=== PATIENT | female | born 1930 | race Caucasian/White ===

== ENCOUNTER 2017-09-27 16:29 | Emergency (ER) | payer MEDICARE, OTHER ==
[~2017-09-27] VITALS: Ht 165.1 cm; Wt 64.4 kg
[~2017-09-27 16:29] MED LIST: ABILIFY5 MG; ADVIL200 MG PO; ALBUTEROL SULF8.5 GM INH; ALDACTONE25 MG PO; AMOXICILLIN875 MG PO; ASPIR 8181 MG PO; ASPIRIN EC325 MG PO; ASPIRIN EC81 MG PO; ATROVENT HFA12.9 GM INH; BACTRIM DS TAB1 EACH PO; BUMETANIDE1 MG PO; CALCIUM/VITD; CARVEDILOL3.125 MG PO; CARVEDILOL6.25 MG PO; CETIRIZINE HCL10 MG PO; COZAAR100 MG PO; COZAAR25 MG PO; CRESTOR10 MG PO; CRESTOR20 MG PO; DEMADEX20 MG PO; DIGOXIN125 MCG PO; FLUTICASONE PRO16 GM NAS; FLUTICASONE PRO16 GM NS; GLUCOPHAGE500 MG PO; GUAIFENESIN600 MG PO; ICAPS PLUS1 EACH PO; LEVAQUIN500 MG PO; LEVOTHYROXINE75 MCG PO; LISINOPRIL40 MG PO; METFORMIN HCL500 MG PO; MUCINEX1200 MG PO; NITROGLYCERIN0.4 MG SL; OMEPRAZOLE20 MG PO; POTASSIUM CHLO20 ME1 PO; PRILOSEC20 MG PO; PULMICORT FLE180 MCG INH; PULMICORT FLEX90 MCG IH; QVAR7.3 G1 INH; SPIRONOLACTONE25 MG PO; VITAMIN B12-FO1 EACH PO; VITAMIN D1000 UNIT; VITAMIN D1000 UNIT PO; ZOFRAN4 MG PO; ZYRTEC10 M3 PO
--- NOTE | 2017-09-28 19:35 | EKG ---
[facility] [address] [place] [address] Signed Atrial-sensed ventricular-paced rhythm Biventricular pacemaker detected Abnormal ECG No previous ECGs available Confirmed by VIDA CALDWELL MD ([id number]) on 09/28/2017 7:35:23 PM Electronically Signed By: VIDA CALDWELL MD 09/28/17 1935 PATIENT NAME: LENNIE CROCKETT Electrocardiogram DATE OF : 32 PHYSICIAN: VIDA CALDWELL MD REPORT #: [id number] REPORT IS CONFIDENTIAL AND NOT TO BE RELEASED WITHOUT AUTHORIZATION
== END 2017-09-28 01:20 | disposition short-term general hospital (02) ==
LOC: ED 16:29
PROC: 0T9B70Z Drainage of Bladder with Drainage Device, Via Natural or Artificial Opening (ICD-10-PCS; principal; 2017-09-27)
DX: S72.011A Unspecified intracapsular fracture of right femur, initial encounter for closed fracture (principal); S22.41XA Multiple fractures of ribs, right side, initial encounter for closed fracture; I11.0 Hypertensive heart disease with heart failure; I50.9 Heart failure, unspecified; E03.9 Hypothyroidism, unspecified; Z87.891 Personal history of nicotine dependence; Z88.5 Allergy status to narcotic agent; Z88.8 Allergy status to other drugs, medicaments and biological substances; Z79.899 Other long term (current) drug therapy; W18.30XA Fall on same level, unspecified, initial encounter; W22.09XA Striking against other stationary object, initial encounter; Y92.89 Other specified places as the place of occurrence of the external cause
CPT/HCPCS: 51702; 71260; 73502; 74177; 80053; 81001; 83690; 84484; 85025; 85610; 85730; 86850; 86900; 86901; 93005; 93010; 96374; 96375; 96376; 99285; J1170; J2405; Q9967

== ENCOUNTER 2017-10-18 11:46 | Inpatient (IN) | payer MEDICARE, OTHER ==
[~2017-10-18] VITALS: Ht 165.1 cm; Wt 65.6 kg
[~2017-10-18 11:46] MED LIST changes: -ASPIRIN EC325 MG PO; -CARVEDILOL3.125 MG PO; +COREG6.25 MG PO; +KLOR-CON M1010 MEQ PO; -POTASSIUM CHLO20 ME1 PO; -QVAR7.3 G1 INH
[2017-10-18] MEDS ORDERED: CO Q-10100 MG PO (12:24)
[2017-10-18] MEDS ORDERED: FAMOTIDINE20 MG PO (12:24)
[2017-10-18] MEDS ORDERED: COUGH SYRU100 MG/5 M PO (12:25)
[2017-10-18] MEDS ORDERED: LORATADINE10 MG PO (12:26)
[2017-10-18] MEDS ORDERED: MELATONIN1 MG PO (12:29)
[2017-10-18] MEDS ORDERED: CRESTOR20 MG PO (12:30)
--- NOTE | 2017-10-18 19:06 | NUR ---
PT ATE FAIR FOR DINNER PARIIGHT, FAMILY BROUGHT IN COPY OF MAR FROM SNF. SCANED TO PHARMACY AND PLACED IN CHART.
--- NOTE | 2017-10-18 19:09 | NUR ---
PT TIRED AND WANTS TO SLEEP, SPO2 92% ON 2L'S NC AT THIS TIME, SPUTUM SAMPLE SENT TO LAB. HEART RATE IN THE 90% AND V-PACED AT THIS TIME.
--- NOTE | 2017-10-18 19:54 | NUR ---
AWAKE, ALERT, DOES HAVE SOME L LOWER LAT CHEST DISCOMFORT WITH COUGHING. EXPLAINED COULD BE DUE TO PNUMONIA. INC OF URINE, ATTENDS CHANGED.
--- NOTE | 2017-10-18 21:31 | NUR ---
HS MEDS GIVEN. PT STATED SHE DID NOT SLEEP WELL LAST NIGHT DUE TO COUGHING AND REQ SOMETHING TO HELP, DR CALDWELL CONSULTED AND HE PREFERS NOT TO GIVE ANYTHING AT THIS TIME COUGH HAS BEEN PRODCUTIVE. PT INFORMTED. PT ALSO C/O CONSITPATION, SENNA ORDERED.
--- NOTE | 2017-10-18 22:13 | NUR ---
SLEEPING OFF AND ON. WHEN ASLEEP PT MOUTH BREATHS, 02 INC TO 3 L SATS DEC TO 88%.
--- NOTE | 2017-10-18 22:34 | NUR ---
ATTENDS CHANGED LEAKS URINE EVERYTIME SHE COUGHS. COUGHING UP SMALL AMTS YELLOW SPUTUM.
--- NOTE | 2017-10-18 23:32 | NUR ---
PT SLEEPING, SATS NOTED TO BE DECREASING TO LOW 82%. PT THEN AWAKENED COUGHING. SATS THEN INCREASED TO 93% BREATH TONES ARE COARSE RHONCHI THROUGHOUT. DENIES NEEDING ATTENDS CHANGED.
--- NOTE | 2017-10-19 00:31 | NUR ---
AT 0010 PT GIVEN 500MG TYLENOL PO FOR PAIN FROM PULLED MUSCLE L LOWER CHEST.
--- NOTE | 2017-10-19 01:00 | NUR ---
SLEEPS FOR SHORT PERIODS BETWEEN EPISODES OF COUGHING.
--- NOTE | 2017-10-19 03:00 | NUR ---
ATTENDS CHANGED INC URINE.
--- NOTE | 2017-10-19 04:52 | NUR ---
AWAKE COUGHING. ATTENDS CHANGED. UP TO BSC TO VOID SMALL AMT URINE. PT STATES THAT EVERY SINCE SHE HAD CATHETER HAS HAD TROUBLE VOIDING. SPEC SENT. PT NARENDRA BEING UP WELL, NO SOB.CONT TO COUGH FREQ.
--- NOTE | 2017-10-19 06:05 | NUR ---
CONT TO SLEEP OFF AND ON. DOES USE IS ON OWN. STATES DID SLEEP BETTER THAN NIGHT BEFORE.
--- NOTE | 2017-10-19 08:00 | NUR ---
pt up to the chair, brushed teeth and washed face, up to the bedside commode, WAS INCONTENT OF URINE, PT ATE BKF AND TOLERATED IT WELL. FAMILY AT THE BEDSIDE.
--- NOTE | 2017-10-19 08:53 | NUR ---
PT SITTING IN CHAIR, O2 NC IN USE. SHE IS ALERT, ORIENTED AND FAMILY BY HER SIDE. NOT MUCH SLEEP LAST NIGHT, NOT ENJOYING COUGHING. PLEASANT DEMEANOR, ALWAYS INTERESTED IN YOU. FAMILY TO CONTACT CINTHIA FOR VISIT, WILL CONTINUE TO FOLLOW NEEDED
--- NOTE | 2017-10-19 11:18 | NUR ---
PT REMAINS UP IN THE CHAIR AT THIS TIME, DENIES AND C/O'S AT THIS TIME. TAKING PO MEDS WELL.
--- NOTE | 2017-10-19 12:05 | NUR ---
SPOKE WITH PATIENT IN ROOM. PATIENT STATES SHE FELL AND BROKE HER HIP AND RIBS A FEW WEEKS AGO, WENT TO [place] DUE TO CARDIAC HISTORY TO HAVE SURGERY. SPENT TWO WEEKS IN REHAB CENTER. JUST CAME HOME LAST THURSDAY. STATES HER CAUGHT "A BUG" WHILE HE WAS IN [place] WITH HER, AND DAUGHTER TOOK HIM TO SEE SEVERAL PROVIDERS. THEY BOTH ENDED UP NEEDING TO BE ADMITTED. SHE STATES SHE AND HE PLAN TO RETURN HOME. WE DISCUSSED POSSIBLE REHAB STAY, IF NEEDED. SHE STATES SHE "HOPES THAT WON'T BE NECESSARY". THEY HAVE 6 ADULT CHILDREN LIVING IN THE AREA AND MULTIPLE GROWN GRANDCHIDLREN. STATES THEY HAVE ONE GRANDDAUGHTER WHO IS DOING HOUSEWORK FOR THEM THIS SUMMER. SHE STATES THE KIDS ARE PLANNING ON TAKING SHIFTS TO HELP THEM 24/ WHEN THEY GET HOME. SHE STATES SHE HAS ORDERS TO START PHYSICAL THERAPY OUTPATIENT SERVICES SOON. SHE HAS A WALKER AT HOME. WE DISCUSSED CHW PROGRAM AND ASKED IF WE CAN FOLLOW THEM AT DISCHARGE TO MAKE SURE THEY HAVE ALL THEY NEED TO TAKE CARE OF THEMSELVES WHEN THEY ARE HOME. SHE IS AGREEABLE TO THIS.
--- NOTE | 2017-10-19 12:57 | NUR ---
PT ATE LUNCH FAIR, REMAINS UP IN THE CHAIR, WANTING TO GO BACK TO BED. ASSISTED PT WITH THIS.
--- NOTE | 2017-10-19 14:57 | NUR ---
REPORTED CALLED TO TOBY AT THIS TIME, ALL QUESTIONS ANSWERED.
--- NOTE | 2017-10-19 15:05 | NUR ---
PT ARRIVED TO FLOOR. PT ALERT AND ORIENTED, DENIES PAIN OR NAUSEA. REPORTS FREQUENT COUGH WITH MODERATE SPUTUM PRODUCTION. IV ABX INFUSING IN RIGHT FOREARM WNL. PT SATTING 91 ON 1L NC. FAMILY AT BEDSIDE. CALL LIGHT WITHIN REACH.
--- NOTE | 2017-10-19 15:27 | EKG ---
[facility] [address] [place] [address] Signed Ventricular-paced rhythm Biventricular pacemaker detected Abnormal ECG When compared with ECG of 27-SEP-2017 19:27, Vent. rate has increased BY 14 BPM Confirmed by VIDA CALDWELL MD ([id number]) on 10/19/2017 3:27:21 PM Electronically Signed By: VIDA CALDWELL MD 10/19/17 1527 PATIENT NAME: LENNIE CROCKETT Electrocardiogram DATE OF : 32 PHYSICIAN: VIDA CALDWELL MD REPORT #: [id number] REPORT IS CONFIDENTIAL AND NOT TO BE RELEASED WITHOUT AUTHORIZATION
--- NOTE | 2017-10-19 18:15 | NUR ---
PT SITTING UP IN BED EATING DINNER, AT BEDSIDE. DENIES NEEDS OR CONCERNS AT THIS TIME. CALL LIGHT WITHIN REACH.
--- NOTE | 2017-10-19 19:20 | NUR ---
pt resting in bed, respirations even and unlabored, o2 per nc at 1liter. pt denies sob. call light in reach. no concerns or requests voiced. report received from TI Crocker.
--- NOTE | 2017-10-19 20:16 | NUR ---
ASSISTED PATIENT TO THE BATHROOM AND BACK TO BED. PATIENT DID PM CARE, BRUSH TEETH AND WASH FACEAND HANDS. CALL LIGHT IN REACH. RT WAS WITH PATIENT IN ROOM.
--- NOTE | 2017-10-19 20:45 | NUR ---
pt has increased frequency of bouts of coughing with little releif in between episodes. LSC in upper sm[place], diminished in bases. pt satting 91% on 1lpnc and denies sob. Dr Munoz notified of pt's s/sx's and new orders to be written by .
--- NOTE | 2017-10-19 22:58 | NUR ---
pt resting supine in bed, eyes closed, respirations even and unlabored. Pt appears to be sleeping comfortably. Pt remains in view of nursing station with bed alarm on.
--- NOTE | 2017-10-20 01:00 | NUR ---
Pt assisted up to restroom with standby assist and use of front wheel walker. pt has steady gait, denies sob or pain. Pt states she is still coughing but less frequently. Pt agrees to use call cord when finished.
--- NOTE | 2017-10-20 05:30 | NUR ---
pt resting in bed, alert to voice. speech clear and pt denies sob. Respirations even and unlabored. Assessment completed. call light in reach. fresh water and call light in reach. pt encouraged to use IS frequently and was educated on it's use. No needs voiced a this time.
[2017-10-20] MEDS ORDERED: SPIRIVA18 MCG INH (07:11)
[2017-10-20] MEDS ORDERED: FAMOTIDINE20 MG PO (07:12)
[2017-10-20] MEDS ORDERED: TUMS200 MG PO (07:12)
[2017-10-20] MEDS ORDERED: VENTOLIN HFA18 GM INH (07:13)
[2017-10-20] MEDS ORDERED: IBU400 MG PO (07:15)
[2017-10-20] MEDS ORDERED: LIDODERM1 EACH TOP (07:18)
[2017-10-20] MEDS ORDERED: LOVENOX40 MG/0.4 SUB-Q (07:19)
[2017-10-20] MEDS ORDERED: MIRALAX17 GM PO (07:20)
[2017-10-20] MEDS ORDERED: HUMALOG100 UNITS/ SUB-Q (07:22)
--- NOTE | 2017-10-20 07:48 | NUR ---
REPORT RECEIVED FROM TI CANO. PT AWAKE AND STATES THAT SHE DID NOT SLEEP WELL AND WOULD LIKE TO REST A BIT MORE. SL
[2017-10-20] MEDS ORDERED: ACETAMINOPHEN500 MG PO (09:39)
[2017-10-20] MEDS ORDERED: BENADRYL ITCH28.3 G1 TOP (09:43)
[2017-10-20] MEDS ORDERED: BISACODYL10 MG PR (09:44)
[2017-10-20] MEDS ORDERED: DOK100 MG PO (09:50)
[2017-10-20] MEDS ORDERED: MILK OF MA400 MG/5 M PO (10:01)
[2017-10-20] MEDS ORDERED: SENNA8.6 MG PO ×2 (10:09→10:10)
--- NOTE | 2017-10-20 10:15 | NUR ---
MED REC COMPLETE
--- NOTE | 2017-10-20 10:15 | NUR ---
PT UP TO THE RESTROOM WITH 1 PA. DENIES PAIN. STEADY ON FEET. BRUSHED TEETH. NOW SITTING UP IN CHAIR.
--- NOTE | 2017-10-20 12:26 | NUR ---
STOPPED BY TO CHECK ON PT-HER FAMILY ARRIVED JUST AFTER. PT HAD SHOWERED, P.T. HAD COMPLETED MORNING VISIT. I WILL CHECK ON PT AGAIN.
--- NOTE | 2017-10-20 14:43 | NUR ---
PT STATES HER BACK IS A LITTLE SORE. ADMINISTERED AB AND TYLENOL. OCC. THER IN ROOM TO WORK WITH PT. PT LUNGS DIM BUT CLEAR. COUGH SYRUP SEEMS TO HAE HELPED PT IS NO LONGER COUGHING CONSTANTLY.
--- NOTE | 2017-10-20 16:25 | NUR ---
DR CALDWELL IN TO SEE PT. AND FAMILY IN ROOM. PT STATES HER COUGH IS KEEPING HER UP AT NIGHT. RIB PAIN IS BETTER. CONTINUES TO SAT WELL OFF OF O2. ADMINISTERED ANOTHER CEPACOL FOR COUGH
--- NOTE | 2017-10-20 18:32 | NUR ---
VITALS AND I/OS CHARTED. IN ROOM. THIS EMERGENCY MEDICAL TECH HAD PATIENT PUT NASAL CANULA ON TO GET HER SATS TO ATLEAST 90. RN OSMAR NOTIFIED. CALL LIGHT IN REACH
--- NOTE | 2017-10-20 18:34 | NUR ---
PT OFF OF O2 MOST OF DAY. DESATS ONLY WHILE SLEEPING. IN ROOM ON AND OFF. FAMILY BROUGHT IN "DEANNE MILLSKE". TYLENOL FOR ABDOMINAL SORENESS. LOZENGES AND ROBOTUSSIN FOR COUGH. PT TIRED FROM LACK OF SLEEP DUE TO COUGH.
--- NOTE | 2017-10-20 19:30 | NUR ---
REPORT RECEIVED FROM TI PRASAD. PT RESTING IN BED, RESPIRATIONS EVEN AND UNLOBORED. PT APPEARS TO BE COMFORTABLE AND DENIES NEEDS OR REQUESTS. PT REMAINS ON 1LPNC AND DENIES PAIN OR SOB. CALL LIGHT IN REACH.
--- NOTE | 2017-10-20 23:24 | NUR ---
PT REPORTS PERSISTING COUGH WITH SOME PAIN TO RIBS AND STOMACHE MUSCLES WHEN COUGHING "I'VE COUGHED SO MUCH MY MUSCLES ARE SORE AND NOW THEY HURT WHEN I COUGH". PT GIVEN PILLOW AND ENCOURAGED TO SPLINT WHILE COUGHING FOR COMFORT. PT STATES HER DISCOMFORT IS TOLERABLE BUT AGREES TO USE CALL LIGHT IF HER SYMPTOMS WORSEN. CALL LIGHT IN REACH. NO FURTHER CONCERNS OR REQUESTS VOICED.
--- NOTE | 2017-10-21 01:02 | NUR ---
HELPED PT TO THE RESTROOM AND BACK TO BED. SHE DENIES NEEDS AT THIS TIME. CALL LIGHT IS WITHIN REACH.
--- NOTE | 2017-10-21 01:28 | NUR ---
pt resting gin bed, denies sob and states "i havent been coughing as much.". pt remains on 1lpnc and zosyn continues to infuse. call light in reach and no needs voiced.
--- NOTE | 2017-10-21 05:00 | NUR ---
PT RESTING IN BED EYES CLOSED, RESPIRATIONS EVEN AND UNLABORED, PT ALERT TO VOICE AND VITAL SIGNS TAKENA ND ARE STABLE. PT DENIES SOB AND STATES SHE HAS NOT BEEN COUGHING MUCH. CALL LIGTH IN REACH AND NO NEEDS VOICED.
--- NOTE | 2017-10-21 07:24 | NUR ---
BEDSIDE REPORT FROM RACHAEL LUKE, SHE IS RESTING IN BED USEING I.S. AT THIS TIME ON ROOM AIR, O2 SATURATION CHECKED PT 90%, WHEN PT TALKED SHE DROPPED TO 88% ON ROOM 1L OXYGEN PLACED N.C. AT THIS TIME. WILL CONT TO MONITOR OXYGEN NEEDS AND TITRATE POSSIBLE
--- NOTE | 2017-10-21 07:56 | NUR ---
PATIENT SITTING UP IN BED, EATING BREAKFAST. CALL LIGHT IN REACH. NO OTHER NEEDS AT THIS TIME.
--- NOTE | 2017-10-21 08:20 | NUR ---
THIS BISCUIT MACHINE OPERATOR ASSISTED PATIENT UP TO BATHROOM, BACK TO BEDSIDE RECLINER. PATIENT SITTING UP EATING BREAKFAST, CALL LIGHT IN REACH. PATIENT REFUSED A SHOWER AND AM CARE. LINENS CHANGED. NO OTHER NEEDS AT THIS TIME. RESPIRATORY THERAPY IN ROOM.
--- NOTE | 2017-10-21 08:49 | NUR ---
PT UPTO BATHROOM ONE PERSON ASSIST AT THIS TIME. TOLERATED ACTIVITY WELL.
--- NOTE | 2017-10-21 10:40 | NUR ---
PATIENT RESTING IN BEDSIDE RECLINER. CALL LIGHT IN REACH, FAMILY IN ROOM. FAMILY MEMBER CONCERNED ABOUT PATIENT COUGHING UP BROWN MUCUS. THIS WHOLESALER EXAMINED SPUTUM, SPUTUM IS GREEN WITH DELMER/BROWN STREAKS IN IT. RN NOTIFIED. NO OTHER NEEDS AT THIS TIME.
--- NOTE | 2017-10-21 14:16 | NUR ---
IN PT ROOM DISCUSSING PLAN OF CARE.
--- NOTE | 2017-10-21 15:37 | NUR ---
PT REPORTS IMPROVEMENT OF COUGH CONTROL WITH PRN COUGH SYRUP, TESSLON PEARLS. AND BETTER PAIN CONTROL WITH TYLENOL. PT SITTING UP VISITING WITH SPOUSE AT BEDSIDE AND GUEST/FAMILY IN ROOM
--- NOTE | 2017-10-21 16:21 | NUR ---
PT UP AMBULATING WITH PHYSICAL THERAPY AT THIS TIME.
--- NOTE | 2017-10-21 16:49 | NUR ---
PT HAS BEEN UP TO RECLINER FOR MEALS. TESSLON PEARLS AND COUGH SYRUP AND TYLENOL HAS BEEN ADMINISTERED OFTEN CAN BE PER ORDER FOR PT COMFORT. PT REPORTS IMPROVED COMFORT OVER SHIFT. SHE HAS BEEN UP AMBULATING IN HALLS WITH PHYSICAL THERAPY. USES I.S. REGULARLY WITHOUT PROMPTING. PLAN TO DISCHARGE TOMORROW
--- NOTE | 2017-10-21 17:02 | NUR ---
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 She currently has company so discussion was short. She denies problems in self-management. Encouraged to call if questions arise upon DC. Social support system:family Weight monitoring: Scale present in home. Weighs self most days. Identifies how to weigh daily/ identifies when to notify PCP Symptom management: Specific written recommendations to follow-up for ongoing management, and to address changes in weight or symptoms Diet: Usual meals include fresh food. Avoids process foods due to salt content. Reads labels. Medication routine: Denies missed medications and utilizes pill boxes. Has been counseled on minimizing/avoiding use of NSAIDs Advanced directive: Not addressed at this initial visit. Recommended: Documented ambulation oxygen saturations prior to discharge Absence of orthostatic hypotension. Patient may be a candidate for outpatient cardiac rehab. Teaching materials given today: [facility] Living with Heart Failure book, Low Sodium Shopping list, Daily weight and symptom monitoring log, Zones magnet
[2017-10-21] MEDS ORDERED: COREG6.25 MG PO (18:28)
[2017-10-21] MEDS ORDERED: COZAAR25 MG PO (18:28)
[2017-10-21] MEDS ORDERED: BENZONATATE200 MG PO (18:32)
[2017-10-21] MEDS ORDERED: GUAIFEN-CODEINE10 ML PO (18:32)
[2017-10-21] MEDS ORDERED: DOXYCYCLINE HY100 MG PO (18:32)
--- NOTE | 2017-10-21 18:39 | NUR ---
PATIENT COUGHING DURING RESPIRATION COUNT.
--- NOTE | 2017-10-21 19:20 | NUR ---
REPORT RECEIVED FROM TI BEGUM. PT ASSESSMENT COMPLETED. PT ALERT AND ORIENTEDX4, DENIES SOB ON 1LPNC. I.S. AT BEDSIDE AND PT AGREES TO CONTINUE TO USE WHILE AWAKE 10X PER HOUR. CALL LIGHT AND FRESH WATER AT BEDSIDE. IV SALINE LOCKED. NO NEEDS VOICED.
--- NOTE | 2017-10-21 21:37 | NUR ---
PT RESTING IN BED STATES SHE IS COMFORTABLE, DENIES SOB STATES "MY STOMACHE MUSCLES ARE SORE WHEN I COUGH". PRN COUGH SYRUP WITH CODEIN, COUGH DROP, TYLENOL ALONG WITH PT'S ROUTINE MEDICATIONS DUE AT THIS TIME. CALL LIGHT IN REACH AND PT DENIES HAVING ANY FURTHER REQUESTS. CALL LIGHT AND FRESH WATER WITHIN REACH.
--- NOTE | 2017-10-22 01:18 | NUR ---
pt resting in bed, respirations even and unlabored, call light in reach. pt appears to be sleeping comfortably. alert to voice, assessment completed and no needs voiced.
--- NOTE | 2017-10-22 01:43 | NUR ---
PT REPORTS EXPERIENCING INDIGESTION "I GET THIS HEART BURN FROM TIME TO TIME, CAN I GET A TUMS OR SOMETHING TO HELP WITH THE INDEGESTION?" mALOX NIO ORDER PLACED AND TO BE ADMINISTERED. PT DENIES NAUSEA,VOMITING OR ANY FURTHER SYMPTOMS.
--- NOTE | 2017-10-22 02:46 | NUR ---
Pt resting in bed, respirations even and unlabored, eyes closed and pt appears to be sleeping comfortable. Call light in reach.
--- NOTE | 2017-10-22 06:55 | NUR ---
pt states she slept well through the night "i slept and i had the wildest dreams". Pt states malox did resolve indegestion that she was experiencing. has maintained o2 sats in mid 90's on 1lpnc and has denied sob.
--- NOTE | 2017-10-22 08:02 | NUR ---
PATIENT IS SITTING UP IN CHAIR FOR BREAKFAST. SOMETIME TODAY WILL TAKE A SHOWER.
--- NOTE | 2017-10-22 08:06 | NUR ---
PATIENT SITTING UP IN CHAIR. ASSESSMENT COMPLETE. PATIENT VITALS TAKEN. TITRATED TO RA. PATIENT TOLERATING RA SATING AT 93 PERCENT ON RA. SET UP FOR BREAKFAST.
--- NOTE | 2017-10-22 09:25 | NUR ---
TELEVISION PRESENTER ASSISTING PATINET WITH SHOWER. PLAN TO AMBULATE WITH PT/ RT AFTER SHOWER.
--- NOTE | 2017-10-22 10:00 | NUR ---
PATIENT WORKED WITH PT. AMBULATING IN AGUILAR. CALLED RT TO DO HOME OXYGEN EVAL. PATIENT SATING 88 PERCENT ON RA WITH ACTIVITY. RT RECOMMENDING 1 L CONT AT HOME. PT STATING SHE IS SAFE TO GO HOME WITH WALKER. PATIENT HAS WALKER AT HOME TO USE. PATIENT HAS AND DAUGHTERS IN ROOM AT THIS TIME.
--- NOTE | 2017-10-22 10:33 | NUR ---
PT SITTING UP IN BED, DRESSED AND VISITING WITH FAMILY. PT STATED SHE HOPES TO BE WELL ENOUGH TO BE DC'D TODAY. PT IS ALERT AND ORIENTED AND HAS A PLEASANT DEMEANOR. EXTENDED A BLESSING, WILL CONTINUE TO FOLLOW NEEDED
--- NOTE | 2017-10-22 11:38 | NUR ---
patient set up for lunch. patient requesting that her have lunch with her.
--- NOTE | 2017-10-22 12:10 | NUR ---
ROUNDED WITH DR. CALDWELL IN ROOM. UPDATED ON PLAN OF CARE AND PLAN FOR DISCHARGE WITH OXYGEN AND PT/ OT AT HOME.
--- NOTE | 2017-10-22 13:22 | NUR ---
PHARMACY IN ROOM TO GIVE DISCHARGE MEDICATION INSTRUCTIONS. CALLED KAYLENE TO VERIFY MEDICATION AND THAT IT IS READY FOR TRAIN ATTENDANT.
== END 2017-10-22 14:00 | disposition home health service (06) | DRG 178 ==
LOC: ED 11:46 → CCU 15:59 → MS 10-19 15:30
PROVIDERS: ADMIT Internal Medicine
DX: J15.211 Pneumonia due to Methicillin susceptible Staphylococcus aureus (principal); I50.22 Chronic systolic (congestive) heart failure; I25.10 Atherosclerotic heart disease of native coronary artery without angina pectoris; I10 Essential (primary) hypertension; J45.40 Moderate persistent asthma, uncomplicated; E03.9 Hypothyroidism, unspecified; E78.5 Hyperlipidemia, unspecified; S22.31XD Fracture of one rib, right side, subsequent encounter for fracture with routine healing; S72.001D Fracture of unspecified part of neck of right femur, subsequent encounter for closed fracture with routine healing; Z91.81 History of falling; Z79.82 Long term (current) use of aspirin; Z79.51 Long term (current) use of inhaled steroids; Z95.1 Presence of aortocoronary bypass graft; Z79.899 Other long term (current) drug therapy; Z88.5 Allergy status to narcotic agent; Z88.8 Allergy status to other drugs, medicaments and biological substances; Z91.040 Latex allergy status
CPT/HCPCS: 36415; 71045; 80053; 83605; 83735; 83880; 84484; 85025; 87070; 87077; 87186; 87205; 87449; 87899; 93005; 93010; 94640; 94760; 94761; 96365; 96375; 97110; 97116; 97162; 97166; 97530; 97535; 99285; J1650; J2543; J2930; J3475; J7120

== ENCOUNTER 2019-03-06 07:43 | Emergency (ER) | payer MEDICARE, OTHER ==
[~2019-03-06] VITALS: Ht 165.1 cm; Wt 61.7 kg
--- OUTSIDE RECORDS SUMMARY | ~2019-03-06 | XMS | Clinical Summary ---
Demographics + + + | Address | [address] | | | [place] [address] | + + + | Home Phone | | + + + | Preferred Language | Unknown | + + + | Marital Status | | + + + | Cheondoism Affiliation | [id number] | + + + | Race | Unknown | + + + | Ethnic Group | Unknown | + + + Author + + + | Author | [facility] | | | and [place] | + + + | Organization | [facility] | | | and [place] | + + + | Address | Unknown | + + + | Phone | Unavailable | + + + Support + + + + + | Name | Relationship | Address | Phone | + + + + + | Alfredo Ireland Jr. | ECON | [address] | | | | | [place] | | | | | [address] | | + + + + + | Rivka Palma | ECON | Unknown | | + + + + + | Geno Kendall | ECON | Unknown | | + + + + + Care Team Providers + +------+ + | Care Medicare Coordinator Name | Role | Phone | + +------+ + | Carmen Schultz MD | PCP | | + +------+ + Allergies + + + + + + | Active Allergy | Reactions | Severity | Noted | Comments | | | | | Date | | + + + + + + | Adhesive & Tape | Rash | Medium | 09/29/19 | | | | | | 18 | | + + + + + + | Codeine | Itching | Medium | 09/29/19 | | | | | | 18 | | + + + + + + | Furosemide | Other (See Comments) | Medium | 09/11/19 | All joints ache | | | | | 14 | and sore, tired All | | | | | | joints ache and | | | | | | sore, tired Joint | | | | | | pain | + + + + + + | Hydromorphone | Other (See Comments) | High | 03/07/20 | Documented in | | | | | 14 | chart that patient | | | | | | went into | | | | | | respiratory distress | | | | | | after receiving | | | | | | 0.5mg of dilaudid. | + + + + + + | Latex | Rash | Medium | 09/13/19 | | | | | | 14 | | + + + + + + Medications + + + +---------+------+------+-------+ | Medication | Sig | Dispensed | Refills | Star | End | Statu | | | | | | t | Date | s | | | | | | Date | | | + + + +---------+------+------+-------+ | levothyroxine | Take 88 mcg by mouth | | 0 | 1 | | Activ | | (SYNTHROID) 88 mcg | Daily. | | | 3/20 | | e | | tablet | | | | 12 | | | + + + +---------+------+------+-------+ | aspirin (ADULT | Take 81 mg by mouth | | 0 | 12/12 | | Activ | | ASPIRIN EC LOW | Daily. | | | 3/20 | | e | | STRENGTH) 81 MG EC | | | | 12 | | | | tablet | | | | | | | + + + +---------+------+------+-------+ | acetaminophen | Take 500 mg by mouth | | 0 | | | Activ | | (TYLENOL) 500 mg | every 6 hours as | | | | | e | | tablet | needed. | | | | | | + + + +---------+------+------+-------+ | albuterol | Inhale 2 puffs into | 1 | 2 | 05/0 | | Activ | | (VENTOLIN HFA) 90 | the lungs every 4 | Inhaler | | 6/20 | | e | | mcg/puff inhaler | hours as needed for | | | 14 | | | | | Wheezing. | | | | | | + + + +---------+------+------+-------+ | bumetanide (BUMEX) | Take 1 mg by mouth | | 0 | | | Activ | | 1 mg tablet | Daily. | | | | | e | + + + +---------+------+------+-------+ | carvedilol (COREG) | Take 3.125 mg by | | 0 | | | Activ | | 3.125 mg tablet | mouth 2 times daily | | | | | e | | | (with breakfast & | | | | | | | | dinner). | | | | | | + + + +---------+------+------+-------+ | calcium carbonate | Take 1,250 mg by | | 0 | 06/2 | | Activ | | (TUMS) 500 mg | mouth daily. | | | 2/20 | | e | | chewable tablet | | | | 18 | | | + + + +---------+------+------+-------+ | Coenzyme Q10 (CO Q | Take 300 mg by | | 0 | | | Activ | | 10) 100 MG CAPS | mouth. | | | | | e | + + + +---------+------+------+-------+ | docusate sodium | Take 200 mg by mouth | | 0 | 06/2 | | Activ | | (COLACE) 100 MG | as needed | | | 2/20 | | e | | capsule | | | | 18 | | | + + + +---------+------+------+-------+ | lidocaine 4 % | Place 1-3 patches | | 0 | 06/2 | | Activ | | patch | onto the skin. | | | 3/20 | | e | | | | | | 18 | | | + + + +---------+------+------+-------+ | montelukast | Take 10 mg by mouth | | 0 | 07/1 | | Activ | | (SINGULAIR) 10 mg | every evening. | | | 6/20 | | e | | tablet | | | | 18 | | | + + + +---------+------+------+-------+ | nitroglycerin | Place 0.4 mg under | | 0 | | | Activ | | (NITROSTAT) 0.4 mg | the tongue every 5 | | | | | e | | SL tablet | (five) minutes as | | | | | | | | needed for Chest | | | | | | | | pain. | | | | | | + + + +---------+------+------+-------+ | polyethylene | Take 17 g by mouth. | | 0 | 06/2 | | Activ | | glycol (MIRALAX) | | | | 2/20 | | e | | packet | | | | 18 | | | + + + +---------+------+------+-------+ | potassium chloride | Take 1 tablet by | | 0 | 04/0 | | Activ | | (KLOR-CON) 10 mEq | mouth 4 (four) times | | | 4/20 | | e | | CR tablet | daily. | | | 16 | | | + + + +---------+------+------+-------+ | cholecalciferol | Take 1,000 Units by | | 0 | | | Activ | | (VITAMIN D-3) 1,000 | mouth daily. | | | | | e | | units capsule | | | | | | | + + + +---------+------+------+-------+ | losartan (COZAAR) | Take 0.5 tablets by | | 0 | 04/0 | | Activ | | 25 mg tablet | mouth daily. | | | 4/20 | | e | | | | | | 19 | | | + + + +---------+------+------+-------+ | rosuvastatin | Take 20 mg by mouth | | 0 | 06/0 | | Activ | | (CRESTOR) 20 mg | nightly. | | | 6/20 | | e | | tablet | | | | 14 | | | + + + +---------+------+------+-------+ | | USE 1 VIAL VIA | 1080 mL | 11 | 08/3 | | Activ | | albuterol-ipratropiu | NEBULIZATION FOUR | | | 0/20 | | e | | m 2.5-0.5 mg/3 mL | TIMES DAILY; MAX OF | | | 19 | | | | SOLN | 6 DOSES PER 24 HOURS | | | | | | + + + +---------+------+------+-------+ | | take 1 tablet by | | 0 | 10/2 | | Activ | | amoxicillin-clavulan | mouth every 12 hours | | | 07/31 | | e | | ate (AUGMENTIN) | for 10 days | | | 19 | | | | 875-125 mg per | | | | | | | | tablet | | | | | | | + + + +---------+------+------+-------+ | metOLazone 2.5 mg | Take 2.5 mg by | | 0 | 09/2 | | Activ | | tablet | mouth. | | | 09/30 | | e | | | | | | 18 | | | + + + +---------+------+------+-------+ | fluticasone | instill 1 spray into | | 0 | 10/2 | | Activ | | (FLONASE) 50 | each nostril twice | | | 4/20 | | e | | mcg/nasal spray | a day | | | 19 | | | + + + +---------+------+------+-------+ | methylPREDNISolone | Follow package | 21 | 0 | 10/2 | | Activ | | (MEDROL DOSEPAK) 4 | directions. | tablet | | 20 | | e | | mg tablet | | | | 19 | | | + + + +---------+------+------+-------+ | budesonide | USE 2 ML(0.25MG) VIA | 180 mL | 11 | 11/0 | | Activ | | (PULMICORT) 0.25 | NEBULIZER twice | | | 20 | | e | | mg/2 mL nebulizer | DAILY | | | 19 | | | | solutionIndications: | | | | | | | | Moderate persistent | | | | | | | | asthma, unspecified | | | | | | | | whether complicated | | | | | | | + + + +---------+------+------+-------+ | budesonide | USE 2 ML(0.25MG) VIA | 180 mL | 11 | 08/3 | 10/2 | Disco | | (PULMICORT) 0.25 | NEBULIZER DAILY | | | 0/20 | 9/20 | ntinu | | mg/2 mL nebulizer | | | | 19 | 19 | ed | | solution | | | | | | (Reor | | | | | | | | rashaad) | + + + +---------+------+------+-------+ | budesonide | USE 2 ML(0.25MG) VIA | 180 mL | 11 | 10/2 | 11/0 | Disco | | (PULMICORT) 0.25 | NEBULIZER twice | | | 9/20 | 1/20 | ntinu | | mg/2 mL nebulizer | DAILY | | | 19 | 19 | ed | | solution | | | | | | (Reor | | | | | | | | rashaad) | + + + +---------+------+------+-------+ Active Problems + + + | Problem | Noted Date | + + + | Acute respiratory failure with hypoxia | 09/29/2017 | + + + | Hyperuricemia | 04/02/2015 | + + + | Biventricular implantable cardioverter-defibrillator in situ | 03/16/2014 | + + + + + | Overview: Last Assessment & Plan: LABORATORY ASSISTANT-D, managed by [facility]. | | Device stable, functioning appropriately.LABORATORY ASSISTANT-D, implanted | | 03/07/2014: Medtronic [id number], Victorina Sneed, SN: [id number].Last | | interrogation, 12/19/2015: DDD (70/130), battery 2.99V (ACCOUNT EXECUTIVE KEY ACCOUNTS 2.73V), | | 6+ years, device stable, A-paced 54%, bi-V-paced 98%, Mode | | Switch <0.01%, Rx 0. | + + + + + | CKD (chronic kidney disease) stage 3, GFR 30-59 ml/min | 01/13/2014 | + + + + + | Overview: Last Assessment & Plan: | | CKD, Stage 3, followed by Dr Bertrand. | + + + + + | S/P CABG (coronary artery bypass graft) | 12/19/2013 | + + + | Coronary atherosclerosis | 12/12/2013 | + + + + + | Overview: Last Assessment & Plan: 3V-CAD, S/P CABG, LVEF 25%. | | 85yo WF, with advanced CAD, ischemic cardiomyopathy | | with severe LV systolic dysfunction. Continues to be modestly | | active, ADLs. She denies any chest pain. She states her | | functional capacity has not changed significantly, she has some | | degree of exertional shortness of breath, but there is no | | orthopnea or PND, she does not have any edema. Denies any new | | visual disturbances, dysarthria, dysphasia, lateralizing signs or | | symptoms. She continues to weigh herself daily, weight stable. | | Labs reviewed with patient. Her device is stable and | | functioning appropriately. Tolerating medications. No changes | | in therapy.Hx CABG, 12/09/2013: CABG*5 (HANSON to mid-LAD/distal | | LAD, SVG to ramus, SVG to OM, SVG to PDA).Hx PCI/stent: noHx | | Pacemaker/ICD: 03/07/2014: Medtronic [id number], Viva Quadra, SN: | | [id number].Last Cath, 09/13/2013: severe 3V-CAD, LVEF 25%.Last | | Echo, 01/09/2015: LVEDd 59mm, LVEF <20% (biplane LVEF 11%), | | mild-moderate AI, mild MR, mild TR, mild PI, no Pericardial | | effusion, est systolic PAP 26-31mmHg.Last Stress Test, 05/17/2014: | | large area of a hin-cwdvx-jgvvz rckfjp-uhxlbfl-xqtvv [place], on | | ongoing ischemia. LV enlarged, LVEF 18%.ECG, 07/13/2015 ([facility] | | [facility]): sinus rhythm, PAC, A-sensed/V-paced 100%. | + + + + + | Hyperlipidemia | 10/06/2013 | + + + + + | Overview: Last Assessment & Plan: Hyperlipidemia, reasonably | | treated, continue current meds at current dose (Crestor). Labs | | reviewed with patient.Lab, 01/08/2016: T Chol: 167, LDL-Chol: 82, | | HDL-Chol: 58, Tri Liver enzymes | | NML, K: 4.3, BUN/Cr: 50/1.4 (GFR 36), glu: 116, M.7 | | TSH: 0.70, free T4: 1.75, HgbA1c: 6.3, WBC: 9.3, | | H/H: 13.5/41.6, plt: 204, ESR: 20 | + + + + + | Ischemic cardiomyopathy | 09/30/2013 | + + + | DM (diabetes mellitus) | 09/10/2013 | + + + + + | Overview: Last Assessment & Plan: | | DM2, managed by PCP. | + + + + + | Essential hypertension, benign | 09/10/2013 | + + + | RHINITIS, CHRONIC | | + + + | ASTHMA, INTRINSIC | | + + + | BRONCHIECTASIS | | + + + | BRONCHITIS, OBSTRUCTIVE CHRONIC | | + + + | COUGH | | + + + | ALLERGIC RHINITIS DUE TO POLLEN | | + + + | ASTHMA, EXTRINSIC | | + + + Encounters +--------+ + + + + | Date | Type | Specialty | Care Team | Description | +--------+ + + + + | 02/11/ | Refill | Pulmonology | Td Mondragon MD | Medication Refill | | 2019 | | | | | +--------+ + + + + | 02/08/ | Office | Pulmonology | Td Mondragon MD | Moderate persistent | | 2018 | Visit | | | asthma, unspecified | | | | | | whether complicated | | | | | | (Primary Dx); | | | | | | Ischemic | | | | | | cardiomyopathy; | | | | | | Centrilobular | | | | | | emphysema (HCC) | +--------+ + + + + | 12/20/ | Procedure | Cardiology | | Biventricular | | 2018 | visit | | | implantable | | | | | | cardioverter-defibri | | | | | | llator in situ | | | | | | (Primary Dx); | | | | | | Ischemic | | | | | | cardiomyopathy | +--------+ + + + + | 12/20/ | Office | Cardiology | Bob [facility] | Ischemic | | 2018 | Visit | | MD Brandon | cardiomyopathy | | | | | | (Primary Dx); Status | | | | | | post internal | | | | | | cardiac | | | | | | defibrillator | | | | | | procedure; | | | | | | Ventricular | | | | | | premature beats; | | | | | | Abnormal chest x-ray | +--------+ + + + + | 12/15/ | Office | Cardiology | Chapo Stock, | Ischemic | | 2018 | Visit | | MD | cardiomyopathy | | | | | | (Primary Dx); | | | | | | Essential | | | | | | hypertension, | | | | | | benign; Acute | | | | | | respiratory failure | | | | | | with hypoxia (HCC); | | | | | | S/P CABG (coronary | | | | | | artery bypass | | | | | | graft); | | | | | | Biventricular | | | | | | implantable | | | | | | cardioverter-defibri | | | | | | llator in situ | +--------+ + + + + | 12/15/ | Telephone | Pulmonology | Td Mondragon MD | Other | | 2018 | | | | | +--------+ + + + + | 12/10/ | Refill | Pulmonology | Td Mondragon MD | Medication Refill | | 2018 | | | | | +--------+ + + + + | 12/09/ | Documentati | Pulmonology | Antwan Solorzano, | Other (In Home- Neb | | 2019 | on | | [employer] | order) | +--------+ + + + + | 12/09/ | Telephone | Pulmonology | Td Mondragon MD | Medication Refill | | 2018 | | | | Assistance | +--------+ + + + + | 12/08/ | Office | Pulmonology | Td Mondragon MD | Moderate persistent | | 2018 | Visit | | | asthma, unspecified | | | | | | whether complicated | | | | | | (Primary Dx); | | | | | | Ischemic | | | | | | cardiomyopathy; | | | | | | Centrilobular | | | | | | emphysema (HCC) | +--------+ + + + + from Last 3 Months Immunizations + + + + | Name | Administration Dates | Next Due | + + + + | INFLUENZA 66 Y OR >, | 12/31/2018, 12/18/2015, 12/12/2014, | | | TRIVALENT HIGH-DOSE | 01/24/2014, 12/22/2012, 01/26/2012, | | | | 12/30/2010 | | + + + + | INFLUENZA PF 18 Y OR | 12/26/2012, 01/24/2012 | | | >,TRIVALENT | | | | RECOMBINANT | | | + + + + | INFLUENZA PF 66 Y OR | 01/09/2017 | | | >,TRIVALENT (FLUAD) | | | + + + + | INFLUENZA PF | 12/30/2017, 02/16/2014 | | | TRIVALENT(PED/ADOL/A | | | | GABBY DORMAN | | | + + + + | INFLUENZA TRIV | 05/12/2016 | | | W/PRES(PED/ADOL/ADUL | | | | T),MULTIDOSE | | | + + + + | INFLUENZA, | 02/16/2014 | | | UNSPECIFIED | | | | FORMULATION | | | + + + + | PNEUMOCOCCAL | 12/12/2014, 12/17/2013 | | | CONJUGATE 13-VALENT | | | | (PCV13) | | | + + + + | PNEUMOCOCCAL | 01/10/2016, 12/10/2013, 02/23/2006 | | | POLYSACCHARIDE | | | | 23-VALENT (PPSV23) | | | + + + + | PNEUMOCOCCAL, | 12/17/2013 | | | UNSPECIFIED | | | | FORMULATION | | | + + + + | TDAP, (ADOL/ADULT) | 01/16/2017, 11/25/2011, 08/24/2011 | | + + + + Family History + + +------+ + | Medical History | Relation | Name | Comments | + + +------+ + | Hypertension | Father | | | + + +------+ + | Other (see comment) | Father | | ruptured crebral aneurysm/crebral | | | | | hemorrhage | + + +------+ + | Sudden | Father | | | + + +------+ + | Tuberculosis | Mother | | | + + +------+ + | Diabetes, NIDDM | Paternal | | | | | Grandmoth | | | | | er | | | + + +------+ + | Heart disease | Paternal | | | | | Grandmoth | | | | | er | | | + + +------+ + | Hypertension | Paternal | | | | | Grandmoth | | | | | er | | | + + +------+ + | Other (see comment) | Paternal | | ruptured cerebral aneurysms/cerebral | | | Grandmoth | | hemorrhage | | | er | | | + + +------+ + | Sudden | Paternal | | | | | Grandmoth | | | | | er | | | + + +------+ + | Other (see comment) | Sister | | ruptured crebral aneurysms | + + +------+ + | Other (see comment) | Sister | | crebral hemorrhage | + + +------+ + | Hypertension | Sister | | | + + +------+ + | Sudden | Sister | | | + + +------+ + + +-------+ + + | Relation | Name | Status | Comments | + +-------+ + + | Brother | | | WWII accident | | | | (Age | | | | | 22) | | + +-------+ + + | Daughter | Janice | Alive | | + +-------+ + + | Daughter | Deidre | Alive | | + +-------+ + + | Daughter | | Alive | | + +-------+ + + | Daughter | | Alive | | + +-------+ + + | Daughter | | Alive | | + +-------+ + + | Daughter | | Alive | | + +-------+ + + | Daughter | | Alive | | + +-------+ + + | Father | | | HTN,CVA | | | | (Age | | | | | 56) | | + +-------+ + + | Maternal Grandmother | | | pneumonia | | | | (Age | | | | | 72) | | + +-------+ + + | Mother | | | tuberculosis | | | | (Age | | | | | 42) | | + +-------+ + + | Paternal Grandfather | | | unknown status | | | | (Age | | | | | 89) | | + +-------+ + + | Paternal Grandmother | | | HTN,CVA | | | | (Age | | | | | 60) | | + +-------+ + + | Sister | | | HTN,CVA | | | | (Age | | | | | 49) | | + +-------+ + + | Sister | | | | + +-------+ + + | Sister | | | | + +-------+ + + | Sister | | | | + +-------+ + + | Sister | | | | + +-------+ + + | Son | | Alive | | + +-------+ + + Social History + +-------+ +--------+ + | Tobacco Use | Types | Packs/Day | Years | Date | | | | | Used | | + +-------+ +--------+ + | Former Smoker | | 1 | 30 | 195502/17/1986 | + +-------+ +--------+ + + +---+---+---+ | Smokeless Tobacco: | | | | | Never Used | | | | + +---+---+---+ + + +---------+ + | Alcohol Use | Drinks/Week | oz/Week | Comments | + + +---------+ + | Yes | | | Rarely | + + +---------+ + + + + + | Alcohol Habits | Answer | Date Recorded | + + + + | How often do you have a drink containing | Monthly or less | 12/20/2018 | | alcohol? | | | + + + + | How many drinks containing alcohol do you | 1 or 2 | 12/20/2018 | | have on a typical day when you are | | | | drinking? | | | + + + + | How often do you have six or more drinks on | Never | 12/20/2018 | | one occasion? | | | + + + + + + + | Sex Assigned at | Date Recorded | | | | + + + | Not on file | | + + + + + + + | Job Start Date | Occupation | Industry | + + + + | Not on file | Not on file | Not on file | + + + + + + + + | Travel History | Travel Start | Travel End | + + + + + + | No recent travel history available. | + + Last Filed Vital Signs + + + + + | Vital Sign | Reading | Time Taken | Comments | + + + + + | Blood Pressure | 102/64 | 02/08/2019 11:22 AM | | | | | PDT | | + + + + + | Pulse | 75 | 02/08/2019 11:22 AM | | | | | PDT | | + + + + + | Temperature | 36.3 C (97.4 F) | 02/08/2019 11:22 AM | | | | | PDT | | + + + + + | Respiratory Rate | 16 | 06/23/2018 2:21 PM | | | | | PDT | | + + + + + | Oxygen Saturation | 94% | 02/08/2019 11:22 AM | | | | | PDT | | + + + + + | Inhaled Oxygen | - | - | | | Concentration | | | | + + + + + | Weight | 62.6 kg (138 lb) | 02/08/2019 11:22 AM | | | | | PDT | | + + + + + | Height | 165.1 cm (5' 5") | 02/08/2019 11:22 AM | | | | | PDT | | + + + + + | Body Mass Index | 22.96 | 02/08/2019 11:22 AM | | | | | PDT | | + + + + + Plan of Treatment +--------+ + + + + | Date | Type | Specialty | Care Team | Description | +--------+ + + + + | 03/09/ | Office | Cardiology | Chapo Stock, | | | 2018 | Visit | | MD Lucila WIGGINS | | | | | | [place] | | | | | | [id number] | | | | | | | | +--------+ + + + + | 03/23/ | Procedure | Cardiology | | | | 2019 | visit | | | | +--------+ + + + + | 08/09/ | Office | Pulmonology | Td Mondragon MD | | | 2020 | Visit | | [address] | | | | | | [place] | | | | | | [address] | | | | | | | | +--------+ + + + + + + + + + | Health Maintenance | Due Date | Last Done | Comments | + + + + + | Diabetic Eye Exam | | | | | | 0 | | | + + + + + | Diabetic Foot Exam | | | | | | 0 | | | + + + + + | Vaccine: Zoster (1 | | | | | of 2) | 2 | | | + + + + + | Hemoglobin A1c | | 07/23/2015, 12/10/2013, | | | Screening | 6 | 12/09/2013, Additional history | | | | | exists | | + + + + + | Adult Annual | | | | | Wellness Visit | 9 | | | + + + + + | Vaccine: | | 01/16/2017, 11/25/2011, | | | Dtap/Tdap/Td (4 - | 7 | 08/24/2011 | | | Td) | | | | + + + + + | Vaccine: | Completed | 01/10/2016, 12/12/2014, | | | Pneumococcal 65+ | | 12/17/2013, Additional history | | | | | exists | | + + + + + | Vaccine: Influenza | Completed | 12/31/2018, 12/30/2017, | | | | | 01/09/2017, Additional history | | | | | exists | | + + + + + Implants + +------+-------+ +--------+--------+--------+ | Implanted | Type | Area | Manufacture | Device | Shelf | Model | | | | | r | | Expira | / | | | | | | Identi | tion | Serial | | | | | | fier | Date | / Lot | + +------+-------+ +--------+--------+--------+ | Pacing Wire Dual | | Heart | MANNY | | 06/10/ | 030-00 | | 030-005 - | | | MEDICAL | | 2019 | 5 / | | [id number]: Qty: 1 on | | | SPECIALTI - | | | /164 | | 12/09/2013 by Niraj Celis, | | | WILS | | | | | MD | | | | | | | + +------+-------+ +--------+--------+--------+ Procedures + +--------+ + + + | Procedure Name | Priori | Date/Time | Associated Diagnosis | Comments | | | ty | | | | + +--------+ + + + | ECG 12 LEAD | Routin | 12/20/2018 | Ischemic | Results for this | | | e | 1:32 PM | cardiomyopathy | procedure are in the | | | | PDT | | results section. | + +--------+ + + + | DEVICE INTERROGATION | Routin | 12/20/2018 | Ischemic | Results for this | | | e | 1:30 PM | cardiomyopathy | procedure are in the | | | | PDT | Biventricular | results section. | | | | | implantable | | | | | | cardioverter-defibri | | | | | | llator in situ | | + +--------+ + + + from Last 3 Months Results ECG 12 lead (12/20/2018 1:32 PM PDT) + + + + + + | Component | Value | Ref Range | Performed | Pathologist | | | | | At | Signature | + + + + + + | VENTRICULAR | 77 | BPM | [facility] | | | RATE EKG | | | | | + + + + + + | ATRIAL RATE | 77 | BPM | [facility] | | + + + + + + | P-R | 126 | ms | [facility] | | | INTERVAL | | | | | + + + + + + | QRS | 184 | ms | [facility] | | | DURATION | | | | | + + + + + + | Q-T | 472 | ms | [facility] | | | INTERVAL | | | | | + + + + + + | Q-T | 534 | ms | [facility] | | | INTERVAL | | | | | | (CORRECTED) | | | | | + + + + + + | QRS AXIS | -105 | degrees | [facility] | | + + + + + + | T AXIS | 71 | degrees | [facility] | | + + + + + + | INTERPRETAT | Please refer to | | [facility] | | | ION TEXT | Providers office visit | | | | | | note for Providers | | | | | | Interpretation.Confirmed | | | | | | by [facility] Read Only, | | | | | | [facility] Rosalie ([id number]), | | | | | | editorial manager LEAH ADAMS | | | | | | ([phone]) on 12/20/2018 | | | | | | 2:51:14 PM | | | | + + + + + + + + | Specimen | + + | | + + + + + | Narrative | Performed At | + + + | | | + + + + +---------+ + + | Performing | Address | City/State/Zipcode | Phone Number | | Organization | | | | + +---------+ + + | [facility] | | | | + +---------+ + + Device Interrogation (12/20/2018 1:30 PM PDT) + + + | Narrative | Performed At | + + + | Sue Rubio, [employer] 12/21/2018 9:36 Device | [facility] | | interrogation done by Kyara Mcle[facility] Any events or changes listed in | | | office note. See device data attached to scheduled encounter for | | | additional details. stand in: Sue Rubio, Device Clinic Tech | | + + + + +---------+ + + | Performing | Address | City/State/Zipcode | Phone Number | | Organization | | | | + +---------+ + + | [facility] | | | | + +---------+ + + from Last 3 Months Insurance + +--------+ +--------+ +---------+--------+ | Payer | Benefi | Subscriber | Effect | Phone | Address | Type | | | t Plan | ID | yasmine | | | | | | / | | Dates | | | | | | Group | | | | | | + +--------+ +--------+ +---------+--------+ | MEDICARE | MEDICA | [id number] | 07/13/19 | [phone] | | Medica | | | RE | | 02-Pre | 5 | | re | | | PART A | | sent | | | | | | AND B | | | | | | + +--------+ +--------+ +---------+--------+ | [employer] | MUTUAL | [id number] | 06/12/19 | [phone] | | Indemn | | | OF | | 12-Pre | 0 | | ity | | | [place] | | sent | | | | + +--------+ +--------+ +---------+--------+ | MEDICARE | MEDICA | [id number] | 07/13/19 | [phone] | | Medica | | | RE | | 02-Pre | 5 | | re | | | PART A | | sent | | | | | | AND B | | | | | | + +--------+ +--------+ +---------+--------+ | [employer] | MUTUAL | [id number] | 06/12/19 | [phone] | | Indemn | | | OF | | 12-Pre | 0 | | ity | | | [place] | | sent | | | | + +--------+ +--------+ +---------+--------+ + +--------+ +--------+ + + | Guarantor Name | Accoun | Relation to | Date | Phone | Billing Address | | | t Type | Patient | of | | | | | | | | | | + +--------+ +--------+ + + | Tamiko Ireland | Person | Self [birth year] | [address] | | | al/Fam | | 1931 | [phone] | [place], [place] | | | pita | | | [address] (Home) | [phone] | + +--------+ +--------+ + + | Tamiko Ireland | Person | Self [birth year] | [address] | | | al/Fam | | 1931 | [phone] | [place], [place] | | | pita | | | [address] (Home) | [phone] | + +--------+ +--------+ + + Advance Directives + + + + + | Type | Date Recorded | Patient | Explanation | | | | Gem Expert | | + + + + + | Power of | | | | | Preform 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
--- OUTSIDE RECORDS SUMMARY | ~2019-03-06 | XMS | Encounter Summary ---
Demographics + + + | Address | [address] | | | [place] [address] | + + + | Home Phone | | + + + | Preferred Language | Unknown | + + + | Marital Status | | + + + | Pentecostal Affiliation | 1041 | + + + | Race | Unknown | + + + | Ethnic Group | Unknown | + + + Author + + + | Author | [facility] | | | and [place] | + + + | Organization | [facility] | | | and [place] | + + + | Address | Unknown | + + + | Phone | Unavailable | + + + Support + + + + + | Name | Relationship | Address | Phone | + + + + + | Alfredo Ireland Jr. | ECON | [address] | | | | | [place], [place] | | | | | [address] | | + + + + + | Rivka Palma | ECON | Unknown | | + + + + + | Geno Kendall | ECON | Unknown | | + + + + + Care Team Providers + +------+ + | Care Piece Goods Clerk Name | Role | Phone | + +------+ + | Lorenzo Valdes MD | PCP | | + +------+ + Encounter Details +--------+ + + + + | Date | Type | Department | Care Team | Description | +--------+ + + + + | 10/23/ | Orders Only | [facility] | Conversion | | | 2016 | | NEPHROLOGY [facility] | Transaction, | | | | | [address] [facility] | Provider Unknown | | | | | [address] [facility], [place] | [phone] | | | | | [address] | | | | | | [phone] | | | +--------+ + + + + Social History + +-------+ +--------+ + | Tobacco Use | Types | Packs/Day | Years | Date | | | | | Used | | + +-------+ +--------+ + | Former Smoker | | 1 | 30 | Quit: 02/17/1986 | + +-------+ +--------+ + + +---+---+---+ | Smokeless Tobacco: | | | | | Never Used | | | | + +---+---+---+ + + +---------+ + | Alcohol Use | Drinks/Week | oz/Week | Comments | + + +---------+ + | Yes | | | Rarely | + + +---------+ + + + + | Sex Assigned [...] recent travel history available. | + + documented as of this encounter Plan of Treatment +--------+ + + + + | Date | Type | Specialty | Care Team | Description | +--------+ + + + + | 03/09/ | Office | Cardiology | [facility] [place], | | | 2018 | Visit | | MD Lucila WIGGINS | | | | | | [place] | | | | | | [address] | | | | | | | | +--------+ + + + + | 03/23/ | Procedure | Cardiology | | | | 2018 | visit | | | | +--------+ + + + + | 08/09/ | Office | Pulmonology | Td Mondragon MD | | | 2019 | Visit | | [address] | | | | | | [place] | | | | | | [address] | | | | | | | | +--------+ + + + + documented as of this encounter Procedures + +--------+ + + + | Procedure Name | Priori | Date/Time | Associated Diagnosis | Comments | | | ty | | | | + +--------+ + + + | EXTERNAL LAB: CBC | Routin | 10/23/2016 | | Results for this | | | e | 11:29 AM | | procedure are in the | | | | PDT | | results section. | + +--------+ + + + | URINALYSIS, REFLEX | Routin | 10/23/2016 | | Results for this | | MICROSCOPIC AND/OR | e | 11:29 AM | | procedure are in the | | CULTURE | | PDT | | results section. | + +--------+ + + + | PROTEIN/CREATININE | Routin | 10/23/2016 | | Results for this | | RATIO, URINE | e | 11:29 AM | | procedure are in the | | | | PDT | | results section. | + +--------+ + + + | URIC ACID | Routin | 10/23/2016 | | Results for this | | | e | 11:29 AM | | procedure are in the | | | | PDT | | results section. | + +--------+ + + + | PARATHYROID HORMONE, | Routin | 10/23/2016 | | Results for this | | INTACT | e | 11:29 AM | | procedure are in the | | | | PDT | | results section. | + +--------+ + + + | MAGNESIUM | Routin | 10/23/2016 | | Results for this | | | e | 11:29 AM | | procedure are in the | | | | PDT | | results section. | + +--------+ + + + | RENAL FUNCTION PANEL | Routin | 10/23/2016 | | Results for this | | | e | 11:29 AM | | procedure are in the | | | | PDT | | results section. | + +--------+ + + + documented in this encounter Results Urinalysis, Reflex Microscopic and/or Culture (10/23/2016 11:29 AM PDT) + + + + + + | Component | Value | Ref Range | Performed | Pathologist | | | | | At | Signature | + + + + + + | Color | Yellow | | EXTERNAL | | | | | | LAB | | + + + + + + | Clarity | Clear | | EXTERNAL | | | | | | LAB | | + + + + + + | Spec Grav, | 1.006 | 1.005 - 1.030 | EXTERNAL | | | Fluid | | | LAB | | + + + + + + | Leukocyte | Negative | | EXTERNAL | | | Esterase, | | | LAB | | | Urine | | | | | + + + + + + | Nitrite, | Negative | | EXTERNAL | | | Urine | | | LAB | | + + + + + + | Urobilinoge | Normal | | EXTERNAL | | | n, Urine | | | LAB | | + + + + + + | Total | Negative | | EXTERNAL | | | Protein | | | LAB | | + + + + + + | Blood, | Negative | | EXTERNAL | | | Urine | | | LAB | | + + + + + + | Ketones | Negative | | EXTERNAL | | | | | | LAB | | + + + + + + | Bilirubin, | Negative | | EXTERNAL | | | Urine | | | LAB | | + + + + + + | Glucose, | Negative | | EXTERNAL | | | Urine | | | LAB | | + + + + + + + + | Specimen | + + | | + + + +---------+ + + | Performing | Address | City/State/Zipcode | Phone Number | | Organization | | | | + +---------+ + + | EXTERNAL LAB | | | | + +---------+ + + Protein/Creatinine Ratio, Urine (10/23/2016 11:29 AM PDT) + + + + + + | Component | Value | Ref Range | Performed | Pathologist | | | | | At | Signature | + + + + + + | Protein/Cre | 416.7 (A) | 0 - 150 | EXTERNAL | | | at Ratio | | | LAB | | + + + + + + + + | Specimen | + + | Urine specimen | | (specimen) | + + + +---------+ + + | Performing | Address | City/State/Zipcode | Phone Number | | Organization | | | | + +---------+ + + | EXTERNAL LAB | | | | + +---------+ + + External Lab: CBC (10/23/2016 11:29 AM PDT) + +-------+ + + + | Component | Value | Ref Range | Performed | Pathologist | | | | | At | Signature | + +-------+ + + + | WBC | 8.7 | 4.5 - 11.0 10 | EXTERNAL | | | | | | LAB | | + +-------+ + + + | RED CELL | 4.77 | 3.8 - 5.1 10 | EXTERNAL | | | COUNT | | | LAB | | + +-------+ + + + | Hgb | 14.3 | 12.0 - 16.0 | EXTERNAL | | | | | g/dL | LAB | | + +-------+ + + + | Hematocrit, | 42.9 | 35 - 45 % | EXTERNAL | | | POC | | | LAB | | + +-------+ + + + | MCV | 89.8 | 81 - 99 fL | EXTERNAL | | | | | | LAB | | + +-------+ + + + | MCH | 30 | 27 - 33 pg | EXTERNAL | | | | | | LAB | | + +-------+ + + + | MCHC | 33 | 30 - 36 g/dL | EXTERNAL | | | | | | LAB | | + +-------+ + + + | Platelet | 191 | 140 - 440 K/ L | EXTERNAL | | | Count | | | LAB | | | Plasma | | | | | + +-------+ + + + | RDW-CV | 14.5 | 10.5 - 15.0 % | EXTERNAL | | | | | | LAB | | + +-------+ + + + | MPV | | fL | EXTERNAL | | | | | | LAB | | + +-------+ + + + | Differentia | | | EXTERNAL | | | l Type | | | LAB | | + +-------+ + + + | % Segmented | | % | EXTERNAL | | | | | | LAB | | | Neutrophils | | | | | + +-------+ + + + | % | | % | EXTERNAL | | | Lymphocytes | | | LAB | | + +-------+ + + + | % Monocytes | | % | EXTERNAL | | | | | | LAB | | + +-------+ + + + | % | | % | EXTERNAL | | | Eosinophils | | | LAB | | + +-------+ + + + | % Basophils | | % | EXTERNAL | | | | | | LAB | | + +-------+ + + + | Absolute | | / L | EXTERNAL | | | Segmented | | | LAB | | | Neutrophils | | | | | + +-------+ + + + | Absolute | | / L | EXTERNAL | | | Lymphocytes | | | LAB | | + +-------+ + + + | Absolute | | / L | EXTERNAL | | | Monocytes | | | LAB | | + +-------+ + + + | Absolute | | / L | EXTERNAL | | | Eosinophils | | | LAB | | + +-------+ + + + | Absolute | | / L | EXTERNAL | | | Basophils | | | LAB | | + +-------+ + + + + + | Specimen | + + | Blood specimen | | (specimen) | + + + +---------+ + + | Performing | Address | City/State/Zipcode | Phone Number | | Organization | | | | + +---------+ + + | EXTERNAL LAB | | | | + +---------+ + + Uric Acid (10/23/2016 11:29 AM PDT) + +---------+ + + + | Component | Value | Ref Range | Performed | Pathologist | | | | | At | Signature | + +---------+ + + + | Uric Acid | 7.8 (A) | 2.3 - 6.6 | EXTERNAL | | | | | | LAB | | + +---------+ + + + + + | Specimen | + + | Blood specimen | | (specimen) | + + + +---------+ + + | Performing | Address | City/State/Zipcode | Phone Number | | Organization | | | | + +---------+ + + | EXTERNAL LAB | | | | + +---------+ + + Parathyroid Hormone, Intact (10/23/2016 11:29 AM PDT) + + + + + + | Component | Value | Ref Range | Performed | Pathologist | | | | | At | Signature | + + + + + + | PTH INTACT | 175.1 (A) | 15 - 65 pg/mL | EXTERNAL | | | | | | LAB | | + + + + + + + + | Specimen | + + | Blood specimen | | (specimen) | + + + +---------+ + + | Performing | Address | City/State/Zipcode | Phone Number | | Organization | | | | + +---------+ + + | EXTERNAL LAB | | | | + +---------+ + + Magnesium (10/23/2016 11:29 AM PDT) + +-------+ + + + | Component | Value | Ref Range | Performed | Pathologist | | | | | At | Signature | + +-------+ + + + | Magnesium | 2.0 | 1.7 - 2.5 mg/dL | EXTERNAL | | | | | | LAB | | + +-------+ + + + + + | Specimen | + + | Blood specimen | | (specimen) | + + + +---------+ + + | Performing | Address | City/State/Zipcode | Phone Number | | Organization | | | | + +---------+ + + | EXTERNAL LAB | | | | + +---------+ + + Renal Function Panel (10/23/2016 11:29 AM PDT) + + + + + + | Component | Value | Ref Range | Performed | Pathologist | | | | | At | Signature | + + + + + + | Glucose, | 105 (A) | 70 - 100 mg/dL | EXTERNAL | | | Fasting | | | LAB | | + + + + + + | BUN | 28 (A) | 6 - 23 mg/dL | EXTERNAL | | | | | | LAB | | + + + + + + | Creatinine | 1.17 (A) | 0.70 - 1.11 | EXTERNAL | | | | | mg/dL | LAB | | + + + + + + | PHOSPHORUS | | mg/dL | EXTERNAL | | | | | | LAB | | + + + + + + | Albumin | 3.9 | 3.5 - 5.0 | EXTERNAL | | | | | | LAB | | + + + + + + | Na | 138 | 132 - 143 | EXTERNAL | | | | | mmol/L | LAB | | + + + + + + | K | 4.1 | 3.6 - 5.1 | EXTERNAL | | | | | mmol/L | LAB | | + + + + + + | Cl | 102 | 95 - 112 mmol/L | EXTERNAL | | | | | | LAB | | + + + + + + | CO2 | 24 | 19 - 31 mmol/L | EXTERNAL | | | | | | LAB | | + + + + + + | Anion Gap | 16.1 | 7 - 21 mmol/L | EXTERNAL | | | | | | LAB | | + + + + + + | eGFR if not | | | EXTERNAL | | | | | | LAB | | | [facility] | | | | | + + + + + + | Phosphorus, | 3.3 | 2.5 - 5.0 | EXTERNAL | | | Inorganic | | | LAB | | + + + + + + | BUN/Creatin | 23.9 | 6.0 - 28.6 | EXTERNAL | | | ine Ratio | | | LAB | | + + + + + + | Calcium | 9.3 | 8.4 - 10.2 | EXTERNAL | | | | | mg/dL | LAB | | + + + + + + | Estimated | 44 | mg/dL | EXTERNAL | | | GFR | | | LAB | | + + + + + + + + | Specimen | + + | Blood specimen | | (specimen) | + + + +---------+ + + | Performing | Address | City/State/Zipcode | Phone Number | | Organization | | | | + +---------+ + + | EXTERNAL LAB | | | | + +---------+ + + documented in this encounter Visit Diagnoses Not on filedocumented in this encounter"
--- OUTSIDE RECORDS SUMMARY | ~2019-03-06 | XMS | Encounter Summary ---
Demographics + + + | Address | [address] | | | [place] [address] | + + + | Home Phone | | + + + | Preferred Language | Unknown | + + + | Marital Status | | + + + | Adventism Affiliation | 1041 | + + + | Race | Unknown | + + + | Ethnic Group | Unknown | + + + Author + + + | Author | [facility] | | | and [place] | + + + | Organization | [facility] | | | and [place] | + + + | Address | Unknown | + + + | Phone | Unavailable | + + + Support + + + + + | Name | Relationship | Address | Phone | + + + + + | Alfredo Crockett Jr. | ECON | [address] | | | | | [place], [place] | | | | | [address] | | + + + + + | Rivka Palma | ECON | Unknown | | + + + + + | Geno Kendall | ECON | Unknown | | + + + + + Care Team Providers + +------+ + | Care Bus Analyst Name | Role | Phone | + +------+ + | Lorenzo Valdes MD | PCP | | + +------+ + Encounter Details +--------+ + + + + | Date | Type | Department | Care Team | Description | +--------+ + + + + | 12/01/ | Orders Only | [facility] | Thomas Bynum | | | 2013 | | [address] | MD [address] | | | | | ECHO [address] | [address] | | | | | [facility] [place] | [place] [address] | | | | | [address] | [phone] | | | | | [phone] | | | +--------+ + + + [...] | | 2018 | Visit | | [address] | | | | | | [place] | | | | | | [address] | | | | | | | [...] [place] | | | | | | [address] | | | | | | | | +--------+ + + + + documented as of this encounter Procedures + +--------+ + + + | Procedure Name | Priori | Date/Time | Associated Diagnosis | Comments | | | ty | | | | + +--------+ + + + | ECHO COMPLETE | Routin | 12/01/2013 | | Results for this | | | e | 12:10 PM | | procedure are in the | | | | PDT | | results section. | + +--------+ + + + documented in this encounter Results ECHO Complete (12/01/2013 12:10 PM PDT) + + | Specimen | + + | | + + + + + | Impressions | Performed At | + + + | 1. Cardiac chamber dimensions NML. LV (LVEDd 56mm) severe global | | | hypokinesis, Grade 1 diastolic abnormality, LVEF 20-25%. LA/RA/RV NML. | | | 2. Aortic valve mildly sclerotic, mild AI, no . Mitral valve | | | grossly NML, mild MAC, mild-moderate MR. Tricuspid valve grossly | | | NML, mild TR. Pulmonic valve not seen well. 3. No Pericardial | | | effusion. 4. IVC appears NML, Est systolic PAP 26-31mmHg. | | + + + + + + | Narrative | Performed At | + + + | Patient Name: TAMIKO CROCKETT Date of : 1930 | | | Performing Physician: Thomas Bynum DO | | | | | | INDICATIONS ISCHEMIC CARDIOMYOPATHY CONCLUSIONS | | | 1. Cardiac chamber dimensions NML. LV (LVEDd 56mm) | | | severe global hypokinesis, Grade 1 diastolic abnormality, LVEF 20-25%. | | | LA/RA/RV NML. 2. Aortic valve mildly sclerotic, mild AI, no . | | | Mitral valve grossly NML, mild MAC, mild-moderate MR. Tricuspid | | | valve grossly NML, mild TR. Pulmonic valve not seen well. 3. No | | | Pericardial effusion. 4. IVC appears NML, Est systolic PAP 26-31mmHg. | | | FINDINGS -------- ECG rhythm: Sinus rhythm. Study: A | | | 2-dimensional transthoracic echocardiogram with m-mode, spectral and | | | color flow Doppler was perfomed. Study: This was a technically | | | adequate study. Left Ventricle: Overall left ventricular systolic | | | function is severely impaired with, an EF between 20 - 25 %. Left | | | Ventricle: The left ventricle is mildly dilated. Left Ventricle: Left | | | ventricular wall thickness is normal. Left Ventricle: The diastolic | | | filling pattern indicates impaired relaxation consistent with mild | | | dysfunction (Grade I). Right Ventricle: The right ventricle is normal | | | in size and function. Left Atrium: The left atrium is normal in | | | size. Right Atrium: The right atrium is normal in size. Aortic | | | Valve: The aortic valve is trileaflet and appears structurally normal. | | | Aortic Valve: There is mild aortic valve sclerosis without stenosis. | | | Aortic Valve: There is mild aortic regurgitation. Aortic Valve: The | | | aortic pressure half-time by doppler is 464ms. Mitral Valve: The | | | mitral valve is normal. Mitral Valve: [id number] mitral | | | regurgitation is present. Mitral Valve: Mild mitral annular | | | calcification present. Tricuspid Valve: The tricuspid valve appears | | | structurally normal. Tricuspid Valve: Mild tricuspid regurgitation | | | present. Tricuspid Valve: The right ventricular systolic pressure | | | (pulmonary artery systolic pressure), as measured by Doppler, is | | | 30.85mmHg. Pulmonic Valve: The pulmonic valve was not well | | | visualized. Pulmonic Valve: Trace pulmonic regurgitation. | | | Pericardium: There is no pericardial effusion. IVC/Hepatic Veins: The | | | inferior vena cava is normal in size and collapses > 50 % with sniff, | | | indicating normal central venous pressures. Aorta: The aortic root, | | | ascending aorta and aortic arch are normal. Mass: No mass visualized | | | Thrombus: No clot visualized Thrombus: No vegetation visualized. | | | Septum: No ASD observed. Septum: No VSD observed. MEASUREMENTS | | | Ao asc: 3.10 cm IVC: 1.28 cm EDV(Teich): | | | 153.19 ml IVSd: 1.04 cm LVIDd: 5.59 cm LVPWd: 1.03 cm | | | LVOT Diam: 2.01 cm %FS: 9.25 % EF(Teich): 20.09 % | | | ESV(Teich): 122.40 ml LVIDs: 5.07 cm SV(Teich): 30.79 ml | | | RVIDd: 2.62 cm LVEF MOD A2C: 30.86 % SV MOD A2C: 58.68 ml | | | LVEF MOD A4C: 11.01 % SV MOD A4C: 19.49 ml EF Biplane: | | | 23.67 % LVEDV MOD BP: 191.98 ml LVESV MOD BP: 146.53 ml LVEDV | | | MOD A2C: 190.13 ml LVLd A2C: 9.86 cm LVEDV MOD A4C: 177.05 | | | ml LVLd A4C: 8.91 cm LVESV MOD A2C: 131.44 ml LVLs A2C: | | | 9.21 cm LVESV MOD A4C: 157.55 ml LVLs A4C: 8.63 cm | | | LAESV(A-L): 49.12 ml LAESV Index (A-L): 27.91 ml/m2 LAAs A2C: | | | 15.29 cm2 LAESV A-L A2C: 46.48 ml LALs A2C: 4.26 cm LAAs | | | A4C: 14.08 cm2 LAESV A-L A4C: 45.26 ml LALs A4C: 3.72 cm | | | RAAs: 9.19 cm2 RAESV A-L: 21.08 ml RAESV MOD: 20.72 ml | | | RALs: 3.40 cm Ao Diam: 3.25 cm LA Diam: 3.82 cm LA/Ao: | | | 1.17 AR Dec [place]: 2.27 m/s2 AR Dec Time: 1601.25 ms AR | | | maxP.14 mmHg AR PHT: 464.36 ms AR Vmax: 3.64 m/s AV | | | maxP.22 mmHg AV meanP.41 mmHg AV Vmax: 1.43 m/s AV | | | Vmean: 1.00 m/s AV VTI: 26.12 cm BEATRIZ Vmax: 1.85 cm2 BEATRIZ | | | (VTI): 1.99 cm2 LVOT maxP.78 mmHg LVOT meanP.15 | | | mmHg LVSI Dopp: 29.54 ml/m2 LVSV Dopp: 52.00 ml LVOT Vmax: | | | 0.83 m/s LVOT Vmean: 0.47 m/s LVOT VTI: 16.29 cm MV A Shola: | | | 1.09 m/s MV DecT: 123.87 ms MV E Shola: 0.28 m/s MV E/A | | | Ratio: 0.26 Septal e': 0.02 m/s Septal E/e': 12.43 Lateral | | | e': 0.03 m/s Lateral E/e': 8.39 P Vein A: 0.31 m/s P Vein | | | D: 0.22 m/s P Vein S/D Ratio: 1.70 P Vein S: 0.38 m/s PV | | | maxP.21 mmHg PV Vmax: 0.89 m/s RAP: 5 mmHg RVSP: | | | 30.85 mmHg TR maxP.85 mmHg TR Vmax: 2.54 m/s | | | Accounting Director: DBS Authenticated by: Thomas Bynum DO Report | | | Date/Time: [id number] | | + + + + + | Procedure Note | + + | César Hawkins Conversion - 12/02/2018 9:54 PM PDT Patient Name: Romie CROCKETT of | | : 1930 Performing Physician: Thomas Bynum | | DO INDICATIONS I | | SCHEMIC CARDIOMYOPATHY CONCLUSIONS 1. Cardiac chamber dimensions NML. LV | | (LVEDd 56mm) severe global hypokinesis, Grade 1 diastolic abnormality, LVEF 20-25%. | | LA/RA/RV NML. 2. Aortic valve mildly sclerotic, mild AI, no . Mitral valve grossly | | NML, mild MAC, mild-moderate MR. Tricuspid valve grossly NML, mild TR. Pulmonic valve | | not seen well. 3. No Pericardial effusion. 4. IVC appears NML, Est systolic PAP | | 26-31mmHg. FINDINGS--------ECG rhythm: Sinus rhythm.Study: A 2-dimensional transthoracic | | echocardiogram with m-mode, spectral and color flow Doppler was perfomed.Study: This | | was a technically adequate study.Left Ventricle: Overall left ventricular systolic | | function is severely impaired with, an EF between 20 - 25 %.Left Ventricle: The left | | ventricle is mildly dilated.Left Ventricle: Left ventricular wall thickness is | | normal.Left Ventricle: The diastolic filling pattern indicates impaired relaxation | | consistent with mild dysfunction (Grade I).Right Ventricle: The right ventricle is | | normal in size and function.Left Atrium: The left atrium is normal in size.Right Atrium: | | The right atrium is normal in size.Aortic Valve: The aortic valve is trileaflet and | | appears structurally normal.Aortic Valve: There is mild aortic valve sclerosis without | | stenosis.Aortic Valve: There is mild aortic regurgitation.Aortic Valve: The aortic | | pressure half-time by doppler is 464ms.Mitral Valve: The mitral valve is normal.Mitral | | Valve: [id number] mitral regurgitation is present.Mitral Valve: Mild mitral | | annular calcification present.Tricuspid Valve: The tricuspid valve appears structurally | | normal.Tricuspid Valve: Mild tricuspid regurgitation present.Tricuspid Valve: The right | | ventricular systolic pressure (pulmonary artery systolic pressure), as measured by | | Doppler, is 30.85mmHg.Pulmonic Valve: The pulmonic valve was not well | | visualized.Pulmonic Valve: Trace pulmonic regurgitation.Pericardium: There is no | | pericardial effusion.IVC/Hepatic Veins: The inferior vena cava is normal in size and | | collapses > 50 % with sniff, indicating normal central venous pressures.Aorta: The | | aortic root, ascending aorta and aortic arch are normal.Mass: No mass | | visualizedThrombus: No clot visualizedThrombus: No vegetation visualized.Septum: No ASD | | observed.Septum: No VSD observed. MEASUREMENTS Ao asc: 3.10 cmIVC: 1.28 | | cmEDV(Teich): 153.19 mlIVSd: 1.04 cmLVIDd: 5.59 cmLVPWd: 1.03 cmLVOT Diam: | | 2.01 cm%FS: 9.25 %EF(Teich): 20.09 %ESV(Teich): 122.40 mlLVIDs: 5.07 | | cmSV(Teich): 30.79 mlRVIDd: 2.62 cmLVEF MOD A2C: 30.86 %SV MOD A2C: 58.68 mlLVEF | | MOD A4C: 11.01 %SV MOD A4C: 19.49 mlEF Biplane: 23.67 %LVEDV MOD BP: 191.98 | | mlLVESV MOD BP: 146.53 mlLVEDV MOD A2C: 190.13 mlLVLd A2C: 9.86 cmLVEDV MOD A4C: | | 177.05 mlLVLd A4C: 8.91 cmLVESV MOD A2C: 131.44 mlLVLs A2C: 9.21 cmLVESV MOD A4C: | | 157.55 mlLVLs A4C: 8.63 cmLAESV(A-L): 49.12 mlLAESV Index (A-L): 27.91 | | ml/m2LAAs A2C: 15.29 [id number] A-L A2C: 46.48 mlLALs A2C: 4.26 cmLAAs A4C: 14.08 | | [id number] A-L A4C: 45.26 mlLALs A4C: 3.72 cmRAAs: 9.19 [id number] A-L: 21.08 | | mlRAESV MOD: 20.72 mlRALs: 3.40 cmAo Diam: 3.25 cmLA Diam: 3.82 cmLA/Ao: | | 1.17AR Dec [place]: 2.27 m/s2AR Dec Time: 1601.25 msAR maxP.14 mmHgAR PHT: | | 464.36 msAR Vmax: 3.64 m/Evelin maxP.22 mmHgAV meanP.41 mmHgAV Vmax: 1.43 | | m/Evelin Vmean: 1.00 m/Evelin VTI: 26.12 cmAVA Vmax: 1.85 cm2AVA (VTI): 1.99 [id number] | | maxP.78 mmHgLVOT meanP.15 mmHgLVSI Dopp: 29.54 ml/m2LVSV Dopp: 52.00 | | mlLVOT Vmax: 0.83 m/sLVOT Vmean: 0.47 m/sLVOT VTI: 16.29 cmMV A Shola: 1.09 m/sMV | | DecT: 123.87 msMV E Shola: 0.28 m/sMV E/A Ratio: 0.26Septal e': 0.02 m/sSeptal | | E/e': 12.43Lateral e': 0.03 m/sLateral E/e': 8.39P Vein A: 0.31 m/sP Vein D: | | 0.22 m/sP Vein S/D Ratio: 1.70P Vein S: 0.38 m/sPV maxP.21 mmHgPV Vmax: 0.89 | | m/sRAP: 5 mmHgRVSP: 30.85 mmHgTR maxP.85 mmHgTR Vmax: 2.54 m/s | | Accounting Director: DBSAuthenticated by: Thomas Hernandez Date/Time: -- | | [id number]:23 IMPRESSION: 1. Cardiac chamber dimensions NML. LV (LVEDd 56mm) | | severe global hypokinesis, Grade 1 diastolic abnormality, LVEF 20-25%. LA/RA/RV NML. 2. | | Aortic valve mildly sclerotic, mild AI, no . Mitral valve grossly NML, mild MAC, | | mild-moderate MR. Tricuspid valve grossly NML, mild TR. Pulmonic valve not seen well. | | 3. No Pericardial effusion. 4. IVC appears NML, Est systolic PAP 26-31mmHg. | |IVSd: 1.04 cm | |LVIDd: 5.59 cm | |LVPWd: 1.03 cm | |LVOT Diam: 2.01 cm | |%FS: 9.25 % | |EF(Teich): 20.09 % | |ESV(Teich): 122.40 ml | |LVIDs: 5.07 cm | |SV(Teich): 30.79 ml | |RVIDd: 2.62 cm | |LVEF MOD A2C: 30.86 % | |SV MOD A2C: 58.68 ml | |LVEF MOD A4C: 11.01 % | |SV MOD A4C: 19.49 ml | |EF Biplane: 23.67 % | |LVEDV MOD BP: 191.98 ml | |LVESV MOD BP: 146.53 ml | |LVEDV MOD A2C: 190.13 ml | |LVLd A2C: 9.86 cm | |LVEDV MOD A4C: 177.05 ml | |LVLd A4C: 8.91 cm | |LVESV MOD A2C: 131.44 ml | |LVLs A2C: 9.21 cm | |LVESV MOD A4C: 157.55 ml | |LVLs A4C: 8.63 cm | |LAESV(A-L): 49.12 ml | |LAESV Index (A-L): 27.91 ml/m2 | |LAAs A2C: 15.29 cm2 | |LAESV A-L A2C: 46.48 ml | |LALs A2C: 4.26 cm | |LAAs A4C: 14.08 cm2 | |LAESV A-L A4C: 45.26 ml | |LALs A4C: 3.72 cm | |RAAs: 9.19 cm2 | |RAESV A-L: 21.08 ml | |RAESV MOD: 20.72 ml | |RALs: 3.40 cm | |Ao Diam: 3.25 cm | |LA Diam: 3.82 cm | |LA/Ao: 1.17 | |AR Dec [place]: 2.27 m/s2 | |AR Dec Time: 1601.25 ms | |AR maxP.14 mmHg | |AR PHT: 464.36 ms | |AR Vmax: 3.64 m/s | |AV maxP.22 mmHg | |AV meanP.41 mmHg | |AV Vmax: 1.43 m/s | |AV Vmean: 1.00 m/s | |AV VTI: 26.12 cm | |BEATRIZ Vmax: 1.85 cm2 | |BEATRIZ (VTI): 1.99 cm2 | |LVOT maxP.78 mmHg | |LVOT meanP.15 mmHg | |LVSI Dopp: 29.54 ml/m2 | |LVSV Dopp: 52.00 ml | |LVOT Vmax: 0.83 m/s | |LVOT Vmean: 0.47 m/s | |LVOT VTI: 16.29 cm | |MV A Shola: 1.09 m/s | |MV DecT: 123.87 ms | |MV E Shola: 0.28 m/s | |MV E/A Ratio: 0.26 | |Septal e': 0.02 m/s | |Septal E/e': 12.43 | |Lateral e': 0.03 m/s | |Lateral E/e': 8.39 | |P Vein A: 0.31 m/s | |P Vein D: 0.22 m/s | |P Vein S/D Ratio: 1.70 | |P Vein S: 0.38 m/s | |PV maxP.21 mmHg | |PV Vmax: 0.89 m/s | |RAP: 5 mmHg | |RVSP: 30.85 mmHg | |TR maxP.85 mmHg | |TR Vmax: 2.54 m/s | | | |Accounting Director: DBS | |Authenticated by: Thomas Bynum DO | |Report Date/Time: -- [id number]:23 | | | |IMPRESSION: | |1. Cardiac chamber dimensions NML. LV (LVEDd 56mm) severe global hypokinesis, Grade 1 khan tolic abnormality, LVEF 20-25%. LA/RA/RV NML. 2. Aortic valve mildly sclerotic, mild AI, no . Mitral valve grossly NML, | |mild MAC, mild-moderate MR. Tricuspid | |valve grossly NML, mild TR. Pulmonic valve not seen well. 3. No Pericardial effusion. 4. I VC appears NML, Est systolic PAP 26-31mmHg. | + + documented in this encounter Visit Diagnoses Not on filedocumented in this encounter"
--- OUTSIDE RECORDS SUMMARY | ~2019-03-06 | XMS | Encounter Summary ---
Demographics + + + | Address | [address] | | | [place] [address] | + + + | Home Phone | | + + + | Preferred Language | Unknown | + + + | Marital Status | | + + + | Yazdanism Affiliation | 1041 | + + + | Race | Unknown | + + + | Ethnic Group | Unknown | + + + Author + + + | Author | [facility] | | | and [place] | + + + | Organization | [facility] | | | and [...] [place], [place] | | | | | [address] | | + + + + + | Rivka Palma | ECON | Unknown | | + + + + + | Geno Kendall | ECON | Unknown | | + + + + + Care Team Providers + +------+ + | Care Blocker Polishing Name | Role | Phone | + +------+ + | Lorenzo Valdes MD | PCP | | + +------+ + Encounter Details +--------+ + + + + | Date | Type | Department | Care Team | Description | +--------+ + + + + | 09/23/ | Orders Only | [facility] | Conversion | | | 2015 | | NEPRHOLOGY PERRY | Transaction, | | | | | [address] | Provider Unknown | | | | | [address] [place], [place] | [phone] | | | | | [address] | | | | | | [phone] | | | +--------+ + + + [...] [place] | | | | | | [address] | | | | | | | [...] [place] | | | | | | [address] | | | | | | | | +--------+ + + + + documented as of this encounter Procedures + +--------+ + + + | Procedure Name | Priori | Date/Time | Associated Diagnosis | Comments | | | ty | | | | + +--------+ + + + | EXTERNAL LAB: CBC | Routin | 09/24/2015 | | Results for this | | | e | 12:00 AM | | procedure are in the | | | | PDT | | results section. | + +--------+ + + + | URINALYSIS WITH | Routin | 09/24/2015 | | Results for this | | MICROSCOPIC WITH | e | 12:00 AM | | procedure are in the | | CULTURE IF INDICATED | | PDT | | results section. | + +--------+ + + + | MICROALBUMIN/CREATIN | Routin | 09/24/2015 | | Results for this | | INE RATIO, URINE | e | 12:00 AM | | procedure are in the | | TEST | | PDT | | results section. | + +--------+ + + + | URIC ACID | Routin | 09/24/2015 | | Results for this | | | e | 12:00 AM | | procedure are in the | | | | PDT | | results section. | + +--------+ + + + | MAGNESIUM | Routin | 09/24/2015 | | Results for this | | | e | 12:00 AM | | procedure are in the | | | | PDT | | results section. | + +--------+ + + + | RENAL FUNCTION PANEL | Routin | 09/24/2015 | | Results for this | | | e | 12:00 AM | | procedure are in the | | | | PDT | | results section. | + +--------+ + + + documented in this encounter Results Urinalysis with Microscopic with Culture if Indicated (09/24/2015 12:00 AM PDT) + + + + + [...] + + + | Spec Grav, | 1.014 | 1.005 - 1.030 | EXTERNAL | [...] + + + + | Total | 25 | | EXTERNAL | | | Protein | | | LAB | | + + + + + + | pH, Urine | 7 | 5 - 9 | EXTERNAL | | | | | | LAB | | + + + + + + | Blood, | Negative | | EXTERNAL | | | Urine | | | LAB | | + + + + + + | Ketones | NEGATIVE | | EXTERNAL | | | | [...] + + + + + + | WBC, UA | 0 | 0 - 4 | EXTERNAL | | | | | | LAB | | + + + + + + | RBC, UA | 0 | 0 - 4 | EXTERNAL | | | | | | LAB | | + + + + + + | Epithelial | squamous 1+ | | EXTERNAL | | | Cells | | | LAB | | + + + + + + | Bacteria, | None Seen | | EXTERNAL | | | UA | | | LAB | | + + + + + + | HYALINE | None Seen | | EXTERNAL | | | CASTS UA | | | LAB | | + + + + + + + + | Specimen | + + | | + + + +---------+ + + | Performing | Address | City/State/Zipcode | Phone Number | | Organization | | | | + +---------+ + + | EXTERNAL LAB | | | | + +---------+ + + Microalbumin/Creatinine Ratio, Urine (09/24/2015 12:00 AM PDT) + +-------+ + + + | Component | Value | Ref Range | Performed | Pathologist | | | | | At | Signature | + +-------+ + + + | ALBUMIN/CRE | 30.0 | 0 - 30 | EXTERNAL | | | ATININE | | | LAB | | | RATIO.URINE | | | | | | .ORD.MG/G | | | | | | (SAVANNAHAKER) | | | | | | | | | | | | | | | | | + +-------+ + + + + + | Specimen | + + | Urine specimen | | (specimen) | + + + + + | Narrative | Performed At | + + + | MICROALB, URINE - 3.9 - 0.0 - 2.0 CREATININE, URINE - 130 | EXTERNAL LAB | + + + + +---------+ + + | Performing | Address | City/State/Zipcode | Phone Number | | Organization | | | | + +---------+ + + | EXTERNAL LAB | | | | + +---------+ + + External Lab: [facility] (09/24/2015 12:00 AM PDT) + + + + + + | Component | Value | Ref Range | Performed | Pathologist | | | | | At | Signature | + + + + + + | WBC | 9.9 | 4.5 - 11.0 10 | EXTERNAL | | | | | | LAB | | + + + + + + | RED CELL | 4.57 | 3.5 - 5.1 10 | EXTERNAL | | | COUNT | | | LAB | | + + + + + + | Hgb | 13.9 (A) | 12.0 - 5.1 g/dL | EXTERNAL | | | | | | LAB | | + + + + + + | Hematocrit, | 41.5 | 35 - 45 % | EXTERNAL | | | POC | | | LAB | | + + + + + + | MCV | 90.9 | 81 - 99 fL | EXTERNAL | | | | | | LAB | | + + + + + + | MCH | 30 | 27 - 33 pg | EXTERNAL | | | | | | LAB | | + + + + + + | MCHC | 33 | 30 - 36 g/dL | EXTERNAL | | | | | | LAB | | + + + + + + | Platelet | 215 | 140 - 440 K/ L | EXTERNAL | | | Count | | | LAB | | | Plasma | | | | | + + + + + + | RDW-CV | 14.5 | 10.5 - 15.0 % | EXTERNAL | | | | | | LAB | | + + + + + + | MPV | | fL | EXTERNAL | | | | | | LAB | | + + + + + + | Differentia | | | EXTERNAL | | | l Type | | | LAB | | + + + + + + | % Segmented | 52.7 | 39 - 80 % | EXTERNAL | | | | | | LAB | | | Neutrophils | | | | | + + + + + + | % | 30.8 | 24 - 44 % | EXTERNAL | | | Lymphocytes | | | LAB | | + + + + + + | % Monocytes | 8.5 | 0 - 12 % | EXTERNAL | | | | | | LAB | | + + + + + + | % | 6.7 (A) | 0 - 6 % | EXTERNAL | | | Eosinophils | | | LAB | | + + + + + + | % Basophils | 1.3 | 0 - 2 % | EXTERNAL | | | | | | LAB | | + + + + + + | Absolute | | / L | EXTERNAL | | | Segmented | | | LAB | | | Neutrophils | | | | | + + + + + + | Absolute | | / L | EXTERNAL | | | Lymphocytes | | | LAB | | + + + + + + | Absolute | | / L | EXTERNAL | | | Monocytes | | | LAB | | + + + + + + | Absolute | | / L | EXTERNAL | | | Eosinophils | | | LAB | | + + + + + + | Absolute | | [...] | + +---------+ + + Uric Acid (09/24/2015 12:00 AM PDT) + +--------+ + + + | Component | Value | Ref Range | Performed | Pathologist | | | | | At | Signature | + +--------+ + + + | Uric Acid | 10 (A) | 2.3 - 6.6 | EXTERNAL | | | | | | LAB | | + +--------+ + + + + + | Specimen | + + | Blood specimen | | (specimen) | + + + +---------+ + + | Performing | Address | City/State/Zipcode | Phone Number | | Organization | | | | + +---------+ + + | EXTERNAL LAB | | | | + +---------+ + + Magnesium (09/24/2015 12:00 AM PDT) + +---------+ + + + | Component | Value | Ref Range | Performed | Pathologist | | | | | At | Signature | + +---------+ + + + | Magnesium | 2.8 (A) | 1.7 - 2.5 mg/dL | EXTERNAL [...] + +---------+ + + Renal Function Panel (09/24/2015 12:00 AM PDT) + + + + + + | Component | Value | Ref Range | Performed | Pathologist | | | | | At | Signature | + + + + + + | Glucose, | 122 (A) | 70 - 100 mg/dL | EXTERNAL | | | Fasting | | | LAB | | + + + + + + | BUN | 45 (A) | 6 - 23 mg/dL | EXTERNAL | | | | | | LAB | | + + + + + + | Creatinine | 1.54 (A) | 0.70 - 1.11 | EXTERNAL | | | | | mg/dL | LAB | | + + + + + + | PHOSPHORUS | | mg/dL | EXTERNAL | | | | | | LAB | | + + + + + + | Albumin | 4.6 | 3.5 - 5.0 | EXTERNAL | | | | | | LAB | | + + + + + + | Na | 136 | 132 - 143 | EXTERNAL | | | | | mmol/L | LAB | | + + + + + + | K | 4.3 | 3.6 - 5.1 | EXTERNAL | | | | | mmol/L | LAB | | + + + + + + | Cl | 98 | 95 - 112 mmol/L | EXTERNAL | | | | | | LAB | | + + + + + + | CO2 | 25 | 19 - 31 mmol/L | EXTERNAL | | | | | | LAB | | + + + + + + | Anion Gap | 17.3 | 7 - 21 mmol/L | EXTERNAL | | | | | | LAB | | + + + + + + | eGFR if not | | | EXTERNAL | | | | | | LAB | | | [facility] | | | | | + + + + + + | Phosphorus, | 3.5 | 2.5 - 5.0 | EXTERNAL | | | Inorganic | | | LAB | | + + + + + + | BUN/Creatin | 29.2 (A) | 6.0 - 28.6 | EXTERNAL | | | ine Ratio | | | LAB | | + + + + + + | Calcium | 9.9 | 8.4 - 10.2 | EXTERNAL | | | | | mg/dL | LAB | | + + + + + + | Estimated | 32 | mg/dL | EXTERNAL | | | [...]
--- OUTSIDE RECORDS SUMMARY | ~2019-03-06 | XMS | Encounter Summary ---
Demographics + + + | Address | [address] | | | [place] [address] | + + + | Home Phone | | + + + | Preferred Language | Unknown | + + + | Marital Status | | + + + | Denominational Affiliation | 1041 | + + + | Race | Unknown | + + + | Ethnic Group | Unknown | + + + Author + + + | Author | [facility] | | | and [place] | + + + | Organization | [facility] | | | [...] [place] | | | | | [address] | | + + + + + | Rivka Palma | ECON | Unknown | | + + + + + | Geno Kendall | ECON | Unknown | | + + + + + Care Team Providers + +------+ + | Care Maintenance Of Way Foreman Name | Role | Phone | + +------+ + | Carmen Schultz MD | PCP | | + +------+ + Reason for Visit + + + | Reason | Comments | + + + | Device Check | FAMILY DEVELOPMENT EXTENSION SPECIALIST-D in office check with jeanette | | (In-office) | | + + + Encounter Details +--------+ + + + + | Date | Type | Department | Care Team | Description | +--------+ + + + + | 12/20/ | Procedure | [facility] | | Biventricular | | 2019 | visit | [facility] | | implantable | | | | [address] | | cardioverter-defibri | | | | [place], [place] | | llator in situ | | | | [address] | | (Primary Dx); | | | | [phone] | | Ischemic | | | | | | cardiomyopathy | +--------+ + + + + Social [...] [place] | | | | | | [address] | | | | | | | | +--------+ + + + + | 03/23/ | Procedure | Cardiology | | | | 2018 | visit | | | | +--------+ + + + + | 08/09/ | Office | Pulmonology | Td Mondragon MD | | | 2019 | Visit | | [address] | | | | | | [place] | | | | | | [address] | | | | | | | [...] | | + +--------+ + + + documented in this encounter Results Device Interrogation (12/20/2018 1:30 PM PDT) + + + | Narrative | Performed At | + + + | Sue Rubio, Senior Gamemaster 12/21/2018 9:36 Device | [facility] | | interrogation done by Kyara Mcleod Any events or changes listed in | | | office note. See device data attached to scheduled encounter for | | | additional details. 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
--- OUTSIDE RECORDS SUMMARY | ~2019-03-06 | XMS | Encounter Summary ---
Demographics + + + | Address | [address] | | | [place] [address] | + + + | Home Phone | | + + + | Preferred Language | Unknown | + + + | Marital Status | | + + + | Jainism Affiliation | 1041 | + + + | Race | Unknown | + + + | Ethnic Group | Unknown | + + + Author + + + | Author | [facility] | | | and [place] | + + + | Organization | [facility] | | | and [...] [place], [place] | | | | | [address] | | + + + + + | Rivka Palma | ECON | Unknown | | + + + + + | Geno Kendall | ECON | Unknown | | + + + + + Care Team Providers + +------+ + | Care Mat Gauger Name | Role | Phone | + +------+ + PCP | Unavailable | + +------+ + Encounter Details +--------+ + + + + | Date | Type | Department | Care Team | Description | +--------+ + + + + | 12/24/ | Abstract | [place] [facility] | [facility] | | | 2011 | | Conversion Location | SR | | | | | [phone] | | | +--------+ + + + + Social History + +-------+ +--------+------+ | Tobacco Use | Types | Packs/Day | Years | Date | | | | | Used | | + +-------+ +--------+------+ | Never Assessed | | | | | + +-------+ +--------+------+ + + + | Sex Assigned at [...] + + documented as of this encounter Last Filed Vital Signs + + + + + | Vital Sign | Reading | Time Taken | Comments | + + + + + | Blood Pressure | 152/94 | 02/04/2011 12:00 AM | | | | | PDT | | + + + + + | Pulse | - | - | | + + + + + | Temperature | - | - | | + + + + + | Respiratory Rate | - | - | | + + + + + | Oxygen Saturation | - | - | | + + + + + | Inhaled Oxygen | - | - | | | Concentration | | | | + + + + + | Weight | 76.7 kg (169 lb) | 02/04/2011 12:00 AM | | | | | PDT | | + + + + + | Height | 165.1 cm (5' 5") | 01/25/2010 12:00 AM | | | | | PDT | | + + + + + | Body Mass Index | 28.12 | 01/25/2010 12:00 AM | | | | | PDT | | + + + + + documented in this encounter Plan of Treatment +--------+ + + + + | Date | Type | Specialty | Care Team | Description | +--------+ + + + + | 03/09/ | Office | Cardiology | Chapo Stock, | | | 2018 | Visit | | MD [address] | | | | | | [place] | | | | | | [address] | | | | | | | [...] [place] | | | | | | [address] | | | | | | | | +--------+ + + + + documented as of this encounter Visit Diagnoses Not on filedocumented in this encounter
--- OUTSIDE RECORDS SUMMARY | ~2019-03-06 | XMS | Encounter Summary ---
Demographics + + + | Address | [address] | | | [place] [address] | + + + | Home Phone | | + + + | Preferred Language | Unknown | + + + | Marital Status | | + + + | Congregation Affiliation | 1041 | + + + | Race | Unknown | + + + | Ethnic Group | Unknown | + + + Author + + + | Author | [facility] | | | and [place] | + + + | Organization | [facility] | | | [...] [place], [place] | | | | | [address] | | + + + + + | Rivka Palma | ECON | Unknown | | + + + + + | Geno Kendall | ECON | Unknown | | + + + + + Care Team Providers + +------+ + | Care Legal Mediator Name | Role | Phone | + +------+ + | Lorenzo Valdes MD | PCP | | + +------+ + Encounter Details +--------+ + + + + | Date | Type | Department | Care Team | Description | +--------+ + + + + | 07/14/ | Hospital | [facility] | Conversion | Shortness of breath; | | 2019 | Encounter | [facility] | Transaction, | Cough; Exposure to | | | | [address] | Provider Unknown | pneumonia | | | | [address] [place], [place] | [phone] | | | | | [address] | | | | | | [phone] | Barbara Doll, ANP | | | | | | [address] | | | | | | [place], [place] | | | | | | [address] | | | | | | | [...] + + documented as of this encounter Medications at Time of Discharge + + + +---------+ + + | Medication | Sig | Dispensed | Refills | Start | End Date | | | | | | Date | | + + + +---------+ + + | acetaminophen | Take 500 mg by mouth | | 0 | | | | (TYLENOL) 500 mg | every 6 hours as | | | | | | tablet | needed. | | | | | + + + +---------+ + + | albuterol | Inhale 2 puffs into | 1 | 2 | 08/17/19 | | | (VENTOLIN HFA) 90 | the lungs every 4 | Inhaler | | 14 | | | mcg/puff inhaler | hours as needed for | | | | | | | Wheezing. | | | | | + + + +---------+ + + | aspirin (ADULT | Take 81 mg by mouth | | 0 | 12/25/19 | | | ASPIRIN EC LOW | Daily. | | | 12 | | | STRENGTH) 81 MG EC | | | | | | | tablet | | | | | | + + + +---------+ + + | bumetanide (BUMEX) | Take 1 mg by mouth | | 0 | | | | 1 mg tablet | Daily. | | | | | + + + +---------+ + + | calcium carbonate | Take 1,250 mg by | | 0 | 10/03/19 | | | (TUMS) 500 mg | mouth daily. | | | 18 | | | chewable tablet | | | | | | + + + +---------+ + + | carvedilol (COREG) | Take 3.125 mg by | | 0 | | | | 3.125 mg tablet | mouth 2 times daily | | | | | | | (with breakfast & | | | | | | | dinner). | | | | | + + + +---------+ + + | docusate sodium | Take 200 mg by mouth | | 0 | 10/03/19 | | | (COLACE) 100 MG | as needed | | | 18 | | | capsule | | | | | | + + + +---------+ + + | levothyroxine | Take 88 mcg by mouth | | 0 | 12/25/19 | | | (SYNTHROID) 88 mcg | Daily. | | | 12 | | | tablet | | | | | | + + + +---------+ + + | lidocaine 4 % | Place 1-3 patches | | 0 | 10/04/19 | | | patch | onto the skin. | | | 18 | | + + + +---------+ + + | metOLazone 2.5 mg | Take 2.5 mg by | | 0 | 01/07/20 | | | tablet | mouth. | | | 18 | | + + + +---------+ + + | montelukast | Take 10 mg by mouth | | 0 | 10/27/19 | | | (SINGULAIR) 10 mg | every evening. | | | 18 | | | tablet | | | | | | + + + +---------+ + + | polyethylene | Take 17 g by mouth. | | 0 | 10/03/19 | | | glycol (MIRALAX) | | | | 18 | | | packet | | | | | | + + + +---------+ + + | potassium chloride | Take 1 tablet by | | 0 | 07/16/19 | | | (KLOR-CON) 10 mEq | mouth 4 (four) times | | | 16 | | | CR tablet | daily. | | | | | + + + +---------+ + + | rosuvastatin | Take 20 mg by mouth | | 0 | 09/17/19 | | | (CRESTOR) 20 mg | nightly. | | | 14 | | | tablet | | | | | | + + + +---------+ + + | acetaminophen | 1000 mg by mouth tid | | 0 | 10/03/19 | | | (TYLENOL) 500 mg | x7 days, then 1-2 | | | 18 | 9 | | tablet | tabs by mouth as | | | | | | | needed every 6 hours | | | | | + + + +---------+ + + | amiodarone | Take 200 mg by mouth | | 0 | | | | (PACERONE) 200 mg | Daily. | | | | 9 | | tablet | | | | | | + + + +---------+ + + | amoxicillin | TK 1 T PO BID FOR 10 | | 0 | 02/05/20 | | | (AMOXIL) 500 MG | DAYS | | | 18 | 9 | | tablet | | | | | | + + + +---------+ + + | aspirin 325 mg EC | Take 325 mg by mouth | | 0 | | | | tablet | Daily. | | | | 9 | + + + +---------+ + + | aspirin 81 mg | Take 81 mg by mouth | | 0 | 10/10/19 | | | chewable tablet | daily. | | | 18 | 9 | + + + +---------+ + + | azithromycin | TK 1 T PO D | | 0 | 06/24/19 | | | (ZITHROMAX) 500 MG | | | | 19 | 9 | | tablet | | | | | | + + + +---------+ + + | beclomethasone | Inhale 2 puffs into | 1 | 5 | 08/19/19 | | | (QVAR) 80 mcg/puff | the lungs Daily. | Inhaler | | 15 | 9 | | inhalerIndications: | | | | | | | Intrinsic asthma, | | | | | | | unspecified, | | | | | | | Extrinsic asthma, | | | | | | | unspecified, | | | | | | | Bronchiectasis | | | | | | | without acute | | | | | | | exacerbation (HCC) | | | | | | + + + +---------+ + + | benzonatate | Take 200 mg by mouth | | 0 | 11/12/19 | | | (TESSALON) 200 MG | 3 (three) times | | | 18 | 9 | | capsule | daily. | | | | | + + + +---------+ + + | calcium ascorbate | Take 500 mg by mouth | | 0 | 12/25/19 | | | (BUFFERED VITAMIN C) | Daily. | | | 12 | 9 | | 500 MG TABS | | | | | | + + + +---------+ + + | carvedilol (COREG) | Take 1 tablet by | | 0 | 02/25/20 | | | 3.125 mg tablet | mouth 2 (two) times | | | 18 | 9 | | | daily with meals. | | | | | + + + +---------+ + + | Cetirizine HCl | 1 tablet by mouth | | 0 | 12/25/19 | | | (ZYRTEC ALLERGY PO) | daily | | | 12 | 9 | + + + +---------+ + + | Cholecalciferol | Take 2,000 Units by | | 0 | 12/25/19 | | | ([facility] VITAMIN D) 2000 | mouth Daily. | | | 12 | 9 | | UNITS CAPS | | | | | | + + + +---------+ + + | Cyanocobalamin | 1 tablet by mouth | | 0 | 12/25/19 | | | (B-12 PO) | daily | | | 12 | 9 | + + + +---------+ + + | fluticasone | 2 sprays in each | | 0 | 12/25/19 | | | (FLONASE) 50 | nostril daily as | | | 12 | 9 | | mcg/nasal spray | needed | | | | | + + + +---------+ + + | guaiFENesin | Take 600 mg by mouth | | 0 | 12/25/19 | | | (MUCINEX) 600 mg 12 | 2 times daily. | | | 12 | 9 | | hr tablet | | | | | | + + + +---------+ + + | guaiFENesin | Take 200 mg by | | 0 | 10/03/19 | | | (ROBITUSSIN) 100 | mouth. | | | 18 | 9 | | MG/5ML liquid | | | | | | + + + +---------+ + + | ipratropium | Inhale 2 puffs every | 1 | 6 | 07/22/19 | | | (ATROVENT HFA) 17 | 6 hours as needed | Inhaler | | 15 | 9 | | mcg/puff | for shortness of | | | | | | inhalerIndications: | breath | | | | | | Bronchiectasis | | | | | | | ([facility]), Bronchitis, | | | | | | | obstructive, chronic | | | | | | | ([facility]) | | | | | | + + + +---------+ + + | IPRATROPIUM | as needed. | | 0 | 12/25/19 | | | BROMIDE IN | | | | 12 | 9 | + + + +---------+ + + | losartan (COZAAR) | Take 100 mg by mouth | | 0 | 12/25/19 | | | 100 MG tablet | Daily. | | | 12 | 9 | + + + +---------+ + + | metFORMIN | Take 500 mg by mouth | | 0 | 12/25/19 | | | (GLUCOPHAGE) 500 mg | Daily. | | | 12 | 9 | | tablet | | | | | | + + + +---------+ + + | metOLazone 2.5 mg | Take 0.5 tablet by | | 0 | 01/07/20 | | | tablet | mouth every third | | | 18 | 9 | | | day as needed. | | | | | + + + +---------+ + + | mometasone | Inhale 2 puffs into | 1 | 11 | 08/17/19 | | | (ASMANEX 60 METERED | the lungs Daily. 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 | | | | | + + + +---------+ + + | rosuvastatin | Take 10 mg by mouth | | 0 | 12/25/19 | | | (CRESTOR) 10 mg | Daily. | | | 12 | 9 | | tablet | | | | | | + + + +---------+ + + | spironolactone | Take 50 mg by mouth | | 0 | 12/25/19 | | | (ALDACTONE) 50 mg | Daily. | | | 12 | 9 | | tablet | | | | | | + + + +---------+ + + | | 1 drop into each eye | | 0 | 12/25/19 | | | tetrahydrozoline-zin | 2-3 times daily | | | 12 | 9 | | c (EYE DROPS ALLERGY | | | | | | | RELIEF) 0.05-0.25 % | | | | | | | ophthalmic solution | | | | | | + + + +---------+ + + | tiotropium | Inhale 18 mcg into | | 0 | 10/04/19 | | | (SPIRIVA) 18 mcg | the lungs. | | | 18 | 9 | | inhalation capsule | | | | | | + + + +---------+ + + documented as of this encounter Plan of Treatment +--------+ + + + + | Date | Type | Specialty | Care Team | Description | +--------+ + + + + | 03/09/ | Office | Cardiology | Chapo Stock, | | | 2018 | Visit | | MD [address] | | | | | | [facility] [place] | | | | | | [address] | | | | | | | [...] | | | | | [place] | | | | | | [address] | | | | | | | | +--------+ + + + + documented as of this encounter Procedures + +--------+ + + + | Procedure Name | Priori | Date/Time | Associated Diagnosis | Comments | | | ty | | | | + +--------+ + + + | XR CHEST 2 VIEWS | Routin | 07/14/2018 | | Results for this | | | e | 1:42 PM | | procedure are in the | | | | PDT | | results section. | + +--------+ + + + documented in this encounter Results XR Chest 2 Vws (07/14/2018 1:42 PM PDT) + + | Specimen | + + | | + + + + + | Impressions | Performed At | + + + | 1. Cardiomegaly, evidence of prior sternotomy and CABG, transvenous | | | AICD unchanged in position. No evidence of overt failure 2. | | | Radiographic appearance suggesting underlying pulmonary fibrosis with | | | a lower lobe predominance no evidence of a superimposed acute | | | infiltrate at this point in time Signed by: Wilson Flores Dwane | | | Sign Date/Time: 07/14/2018 1:57 PM | | + + + + + + | Narrative | Performed At | + + + | CHEST TWO VIEWS CLINICAL INFORMATION: Cough, shortness of breath | | | COMPARISON: CT CHEST HIGH RESOLUTION (09/27/2017); XR CHEST 1 VIEW | | | (08/02/2014); US THORACENTESIS WITH IMAGING (08/02/2014); FINDINGS: | | | Transvenous AICD entering the left subclavian route is unchanged in | | | position. The leads are continuous. Postsurgical changes of prior | | | sternotomy probable CABG. Cardiac size is generous. Normal | | | pulmonary vascular pattern without overt failure. The coarsened | | | reticular pattern with ring shadows in the lower lung zones | | | suggesting pulmonary fibrosis again noted. There is no evidence of | | | a superimposed infiltrate, effusion, pneumothorax. No pulmonary | | | nodules or masses identified. Appearance of diffuse thoracic | | | osteopenia but there is no significant compression fractures or | | | evidence of subluxation. | | + + + + + | Procedure Note | + + | Ross, Rad Conversion - 11/23/2018 9:06 PM PDT CHEST TWO VIEWS | | CLINICAL INFORMATION: | | Cough, shortness of breath | | COMPARISON: | | CT CHEST HIGH RESOLUTION (09/27/2017); XR CHEST 1 VIEW (08/02/2014); US | | THORACENTESIS WITH IMAGING (08/02/2014); | | FINDINGS: | | Transvenous AICD entering the left subclavian route is unchanged in | | position. The leads are continuous. Postsurgical changes of prior | | sternotomy probable CABG. | | Cardiac size is generous. Normal pulmonary vascular pattern without | | overt failure. The coarsened reticular pattern with ring shadows in | | the lower lung zones suggesting pulmonary fibrosis again noted. There | | is no evidence of a superimposed infiltrate, effusion, pneumothorax. | | No pulmonary nodules or masses identified. Appearance of diffuse | | thoracic osteopenia but there is no significant compression fractures | | or evidence of subluxation. | | IMPRESSION: | | 1. Cardiomegaly, evidence of prior sternotomy and CABG, transvenous | | AICD unchanged in position. No evidence of overt failure | | 2. Radiographic appearance suggesting underlying pulmonary fibrosis | | with a lower lobe predominance no evidence of a superimposed acute | | infiltrate at this point in time | | Signed by: Wilson Flores Dwane | | Sign Date/Time: 07/14/2018 1:57 PM | + + documented in this encounter Visit Diagnoses + + | Diagnosis | + + | Shortness of breath | + + | Cough | + + | Exposure to pneumonia Contact with or exposure to other viral diseases | + + documented in this encounter"
--- OUTSIDE RECORDS SUMMARY | ~2019-03-06 | XMS | Encounter Summary ---
Demographics + + + | Address | [address] | | | [place] [address] | + + + | Home Phone | | + + + | Preferred Language | Unknown | + + + | Marital Status | | + + + | Shinto Affiliation | 1041 | + + + | Race | Unknown | + + + | Ethnic Group | Unknown | + + + Author + + + | Author | [facility] | | | and [place] | + + + | Organization | [facility] | | [...] [place], [place] | | | | | [address] | | + + + + + | Rivka Palma | ECON | Unknown | | + + + + + | Geno Kendall | ECON | Unknown | | + + + + + Care Team Providers + +------+ + | Care Distributor Sales Manager Name | Role | Phone | + +------+ + | Lorenzo Valdes MD | PCP | | + +------+ + Encounter Details +--------+ + + + + | Date | Type | Department | Care Team | Description | +--------+ + + + + | 03/22/ | Orders Only | [facility] | Maury Bertrand MD | | | 2014 | | NEPHROLOGY [facility] | [address] [place] | | | | | [address] [place] | [address] [place], [place] | | | | | [address] [place], [place] | [address] | | | | | [address] | | | | | | [phone] | | | +--------+ + + + [...] | 03/09/ | Office | Cardiology | Marcosvidal Chapo, | | | 2018 | Visit | | [address] | | | | | | [place] | | | | | | [address] | | | | | | | | +--------+ + + + + | 03/23/ | Procedure | Cardiology | | | | 2018 | visit | | | | +--------+ + + + + | 08/09/ | Office | Pulmonology | Td Mondragon MD | | | 2019 | Visit | | [address] | | | | | | [place] | | | | | | [address] | | | | | | | | +--------+ + + + + documented as of this encounter Procedures + +--------+ + + + | Procedure Name | Priori | Date/Time | Associated Diagnosis | Comments | | | ty | | | | + +--------+ + + + | EXTERNAL LAB: CBC | Routin | 03/22/2015 | | Results for this | | | e | 12:00 AM | | procedure are in the | | | | PST | | results section. | + +--------+ + + + | URINALYSIS WITH | Routin | 03/22/2015 | | Results for this | | MICROSCOPIC IF | e | 12:00 AM | | procedure are in the | | INDICATED | | PST | | results section. | + +--------+ + + + | PARATHYROID HORMONE, | Routin | 03/22/2015 | | Results for this | | INTACT AND CALCIUM | e | 12:00 AM | | procedure are in the | | | | PST | | results section. | + +--------+ + + + | PROTEIN/CREATININE | Routin | 03/22/2015 | | Results for this | | RATIO, URINE | e | 12:00 AM | | procedure are in the | | | | PST | | results section. | + +--------+ + + + | URIC ACID | Routin | 03/22/2015 | | Results for this | | | e | 12:00 AM | | procedure are in the | | | | PST | | results section. | + +--------+ + + + | MAGNESIUM | Routin | 03/22/2015 | | Results for this | | | e | 12:00 AM | | procedure are in the | | | | PST | | results section. | + +--------+ + + + | RENAL FUNCTION PANEL | Routin | 03/22/2015 | | Results for this | | | e | 12:00 AM | | procedure are in the | | | | PST | | results section. | + +--------+ + + + documented in this encounter Results Parathyroid Hormone, Intact and Calcium (03/22/2015 12:00 AM PST) + +-------+ + + + | Component | Value | Ref Range | Performed | Pathologist | | | | | At | Signature | + +-------+ + + + | PTH Intact | 58.24 | 15 - 65 | EXTERNAL | | | | | | LAB | | + +-------+ + + + | Calcium | 10.0 | 8.4 - 10.2 | EXTERNAL | [...] + +---------+ + + Protein/Creatinine Ratio, Urine (03/22/2015 12:00 AM PST) + +-------+ + + + | Component | Value | Ref Range | Performed | Pathologist | | | | | At | Signature | + +-------+ + + + | Protein/Cre | 86.2 | 0 - 150 | EXTERNAL | [...] | | | + +---------+ + + Urinalysis with Microscopic if Indicated (03/22/2015 12:00 AM PST) + + + + + + | [...] + + + | Spec Grav, | 1.018 | 1.005 - 1.030 | EXTERNAL | [...] + + + | pH, Urine | 5 | 5 - 9 | EXTERNAL | [...] + +---------+ + + External Lab: CBC (03/22/2015 12:00 AM PST) + + + + + + | Component | Value | Ref Range | Performed | Pathologist | | | | | At | Signature | + + + + + + | WBC | 9.4Comment: 4 | 4.5 - 11.0 10 | EXTERNAL | | | | | | LAB | | + + + + + + | RED CELL | 0.70 (A) | 3.8 - 5.1 10 | EXTERNAL | | | COUNT | | | LAB | | + + + + + + | Hgb | 14.5 | 12.0 - 16.0 | EXTERNAL | | | | | g/dL | LAB | | + + + + + + | Hematocrit, | 43.8 | 35 - 45 % | EXTERNAL | | | POC | | | LAB | | + + + + + + | MCV | 93.2 | 81 - 99 fL | EXTERNAL | | | | | | LAB | | + + + + + + | MCH | 31 | 27 - 33 pg | EXTERNAL | | | | | | LAB | | + + + + + + | MCHC | 33 | 30 - 36 g/dL | EXTERNAL | | | | | | LAB | | + + + + + + | Platelet | 188 | 140 - 440 K/ L | EXTERNAL | | | Count | | | LAB | | | Plasma | | | | | + + + + + + | RDW-CV | 14.4 | 10.5 - 15.0 % | EXTERNAL | | | | | | LAB | | + + + + + + | MPV | | fL | EXTERNAL | | | | | | LAB | | + + + + + + | Differentia | Auto | | EXTERNAL | | | l Type | | | LAB | | + + + + + + | % Segmented | 52.2 | 39 - 80 % | EXTERNAL | | | | | | LAB | | | Neutrophils | | | | | + + + + + + | % | 30.4 | 24 - 44 % | EXTERNAL | | | Lymphocytes | | | LAB | | + + + + + + | % Monocytes | 9.1 | 0 - 12 % | EXTERNAL | | | | | | LAB | | + + + + + + | % | 7.0 (A) | 0 - 6 % | [...] | + +---------+ + + Uric Acid (03/22/2015 12:00 AM PST) + +---------+ + + + | Component | Value | Ref Range | Performed | Pathologist | | | | | At | Signature | + +---------+ + + + | Uric Acid | 9.3 (A) | 2.3 - 6.6 | EXTERNAL [...] | | + +---------+ + + Magnesium (03/22/2015 12:00 AM PST) + +-------+ + + + | Component | Value | Ref Range | Performed | Pathologist | | | | | At | Signature | + +-------+ + + + | Magnesium | 2.5 | 1.7 - 2.5 mg/dL | EXTERNAL [...] + +---------+ + + Renal Function Panel (03/22/2015 12:00 AM PST) + + + + + + | Component | Value | Ref Range | Performed | Pathologist | | | | | At | Signature | + + + + + + | Glucose, | 116 (A) | 70 - 100 mg/dL | EXTERNAL | | | Fasting | | | LAB | | + + + + + + | BUN | 45 (A) | 6 - 23 mg/dL | EXTERNAL | | | | | | LAB | | + + + + + + | Creatinine | 1.46 (A) | 0.70 - 1.11 | EXTERNAL | | | | | mg/dL | LAB | | + + + + + + | PHOSPHORUS | | mg/dL | EXTERNAL | | | | | | LAB | | + + + + + + | Albumin | 4.2 | 3.5 - 5.0 | EXTERNAL | | | | | | LAB | | + + + + + + | Na | 139 | 132 - 143 | EXTERNAL | [...] + + + + | CO2 | 23 | 19 - 31 mmol/L | EXTERNAL | | | | | | LAB | | + + + + + + | Anion Gap | 18.3 | 7 - 21 mmol/L | EXTERNAL | | | | | | LAB | | + + + + + + | eGFR if not | | | EXTERNAL | | | | | | LAB | | | MICRONESIAN | | | | | + + + + + + | Phosphorus, | 3.7 | 2.5 - 5.0 | EXTERNAL | | | Inorganic | | | LAB | | + + + + + + | BUN/Creatin | 30.8 (A) | 6.0 - 28.6 | EXTERNAL | | | ine Ratio | | | LAB | | + + + + + + | Calcium | 10.0 | 8.4 - 10.2 | EXTERNAL | | | | | mg/dL | LAB | | + + + + + + | Estimated | 34 | mg/dL | EXTERNAL | | | [...]
--- OUTSIDE RECORDS SUMMARY | ~2019-03-06 | XMS | Encounter Summary ---
Demographics + + + | Address | [address] | | | [place] [address] | + + + | Home Phone | | + + + | Preferred Language | Unknown | + + + | Marital Status | | + + + | Yazidi Affiliation | 1041 | + + + | Race | Unknown | + + + | Ethnic Group | Unknown | + + + Author + + + | Author | [facility] | | | and [place] | + + + | Organization | [facility] | | | and [...] [place], [place] | | | | | [address] | | + + + + + | Rivka Palma | ECON | Unknown | | + + + + + | Geno Kendall | ECON | Unknown | | + + + + + Care Team Providers + +------+ + | Care Quarantine Inspector Name | Role | Phone | + +------+ + | Lorenzo Valdes MD | PCP | | + +------+ + Reason for Visit +--------+ + | Reason | Comments | +--------+ + | Other | sputum | +--------+ + Encounter Details +--------+ + + + + | Date | Type | Department | Care Team | Description | +--------+ + + + + | 09/02/ | Telephone | [facility] | Brandon Terry | Other (sputum) | | 2013 | | PULMONARY [address] | [place] [address] [address] | | | | | [place], | [place], [place] | | | | | [place] [address] | [id number] | | | | | [phone] | | | +--------+ + + + [...] [place] | | | | | | [address] | | | | | | | [...] [place] | | | | | | [address] | | | | | | | | +--------+ + + + + + + +--------+ + + | Name | Type | Priori | Associated Diagnoses | Order Schedule | | | | ty | | | + + +--------+ + + | Culture, | Microbiolog | Routin | Shortness of | 1 Occurrences | | Respiratory, Lower, | y | e | breath | starting 09/02/2013 | | Smear | | | | until 09/02/2014 | + + +--------+ + + documented as of this encounter Visit Diagnoses + + | Diagnosis | + + | Shortness of breath - Primary | + + documented in this encounter"
--- OUTSIDE RECORDS SUMMARY | ~2019-03-06 | XMS | Encounter Summary ---
Demographics + + + | Address | [address] | | | [place] [address] | + + + | Home Phone | | + + + | Preferred Language | Unknown | + + + | Marital Status | | + + + | Oriental Orthodox Affiliation | 1041 | + + + | Race | Unknown | + + + | Ethnic Group | Unknown | + + + Author + + + | Author | [facility] | | | and [place] | + + + | Organization | [facility] | | | [...] [place], [place] | | | | | [address] | | + + + + + | Rivka Palma | ECON | Unknown | | + + + + + | Geno Kendall | ECON | Unknown | | + + + + + Care Team Providers + +------+ + | Care Club Licensee Name | Role | Phone | + +------+ + | Lorenzo Valdes MD | PCP | | + +------+ + Encounter Details +--------+ + + + + | Date | Type | Department | Care Team | Description | +--------+ + + + + | 01/20/ | Documentati | [facility] | Brandon Terry | | | 2013 | on | PULMONARY [address] | [place] [address] [address] | | | | | [place] [address], | [place], [place] | | | | | [place] [address] | [address] | | | | | [phone] | | | +--------+ + + + [...] + + documented as of this encounter Progress Notes Brandon Terry MD - 01/20/2014 5:[address] Valdes office visit on 4. 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 Doing better.Electronicall y signed by Brandon Terry MD at 01/20/2014 5:12 PM PDTdocumented in this encounter Plan of Treatment +--------+ + + + + | Date | Type | Specialty | Care Team | Description | +--------+ + + + + | 03/09/ | Office | Cardiology | [place], | | | 2018 | Visit | | MD [address] | | | | | | [place] | | | | | | [address] | | | | | | | [...] [place] | | | | | | [phone] | | | | | | | | +--------+ + + + + documented as of this encounter Visit Diagnoses + + | Diagnosis | + + | CAD (coronary artery disease) - Primary Coronary atherosclerosis of unspecified type | | of vessel, yurok or graft | + + documented in this encounter"
--- OUTSIDE RECORDS SUMMARY | ~2019-03-06 | XMS | Encounter Summary ---
Demographics + + + | Address | [address] | | | [place] [address] | + + + | Home Phone | | + + + | Preferred Language | Unknown | + + + | Marital Status | | + + + | Oriental Orthodox Affiliation | 1041 | + + + | Race | Unknown | + + + | Ethnic Group | Unknown | + + + Author + + + | Author | [facility] | | | and [place] | + + + | Organization | [facility] | | | [...] [place] | | | | | [address] | | + + + + + | Rivka Palma | ECON | Unknown | | + + + + + | Geno Kendall | ECON | Unknown | | + + + + + Care Team Providers + +------+ + | Care Cashier Name | Role | Phone | + +------+ + | Carmen Schultz MD | PCP | | + +------+ + Encounter Details +--------+ + + + + | Date | Type | Department | Care Team | Description | +--------+ + + + + | 08/16/ | Orders Only | [facility] | Dorota Nicole, HATCH SUPERVISOR | | | 2014 | | PULMONARY [address] | | | | | | [place], | | | | | | [place] [address] | | | | | | [phone] | | | +--------+ + + + [...] [place] | | | | | | [address] | | | | | | | [...] [place] | | | | | | [phone] | | | | | | | | +--------+ + + + + documented as of this encounter Visit Diagnoses Not on filedocumented in this encounter"
--- OUTSIDE RECORDS SUMMARY | ~2019-03-06 | XMS | Encounter Summary ---
Demographics + + + | Address | [address] | | | [place] [address] | + + + | Home Phone | | + + + | Preferred Language | Unknown | + + + | Marital Status | | + + + | Presybeterian Affiliation | 1041 | + + + [...] [place], [place] | | | | | [address] | | + + + + + | Rivka Palma | ECON | Unknown | | + + + + + | Geno Kendall | ECON | Unknown | | + + + + + Care Team Providers + +------+ + | Care Mint Machine Operator Name | Role | Phone | + +------+ + | Lorenzo Valdes MD | PCP | | + +------+ + Reason for Visit + + + | Reason | Comments | + + + | Medication Refill | | + + + Encounter Details +--------+--------+ + + + | Date | Type | Department | Care Team | Description | +--------+--------+ + + + | 07/21/ | Refill | [facility] | Brandon Terry | Medication Refill | | 2014 | | [address]ULMONARY [address] | [place] [address] | | | | | [place], | [place], [place] | | | | | [place] [address] | [address] | | | | | [phone] | | | +--------+--------+ + + + Social History + +-------+ [...] [place] | | | | | | [address] | | | | | | | [...] [place] | | | | | | [address] | | | | | | | | +--------+ + + + + documented as of this encounter Visit Diagnoses + + | Diagnosis | + + | Bronchiectasis (HCC) - Primary Bronchiectasis without acute exacerbation | + + | BRONCHITIS, OBSTRUCTIVE CHRONIC Obstructive chronic bronchitis without exacerbation | + + documented in this encounter"
--- OUTSIDE RECORDS SUMMARY | ~2019-03-06 | XMS | Encounter Summary ---
Demographics + + + | Address | [address] | | | [place] [address] | + + + | Home Phone | | + + + | Preferred Language | Unknown | + + + | Marital Status | | + + + | Spiritism Affiliation | 1041 | + + + [...] [place], [place] | | | | | [address] | | + + + + + | Rivka Palma | ECON | Unknown | | + + + + + | Geno Kendall | ECON | Unknown | | + + + + + Care Team Providers + +------+ + | Care Dust Collector Operator Name | Role | Phone | + +------+ + | Lorenzo Valdes MD | PCP | | + +------+ + Encounter Details +--------+ + + + + | Date | Type | Department | Care Team | Description | +--------+ + + + + | 12/19/ | Orders Only | [facility] | Conversion | | | 2015 | | NEPHROLOGY [place] | Transaction, | | | | | [address] [facility] | Provider Unknown | | | | | [address] [facility] [place] | [phone] | | | | | [address] | | | | | | [phone] | | | +--------+ + + + [...] [place] | | | | | | [address] | | | | | | | [...] [place] | | | | | | [address] | | | | | | | | +--------+ + + + + documented as of this encounter Procedures + +--------+ + + + | Procedure Name | Priori | Date/Time | Associated Diagnosis | Comments | | | ty | | | | + +--------+ + + + | EXTERNAL LAB: CBC | Routin | 12/20/2015 | | Results for this | | | e | 12:00 AM | | procedure are in the | | | | PDT | | results section. | + +--------+ + + + | URINALYSIS WITH | Routin | 12/20/2015 | | Results for this | | MICROSCOPIC IF | e | 12:00 AM | | procedure are in the | | INDICATED | | PDT | | results section. | + +--------+ + + + | VITAMIN D, | Routin | 12/20/2015 | | Results for this | | DEFICIENCY SCREEN | e | 12:00 AM | | procedure are in the | | (25-HYDROXY) | | PDT | | results section. | + +--------+ + + + | PARATHYROID HORMONE, | Routin | 12/20/2015 | | Results for this | | INTACT AND CALCIUM | e | 12:00 AM | | procedure are in the | | | | PDT | | results section. | + +--------+ + + + | PROTEIN/CREATININE | Routin | 12/20/2015 | | Results for this | | RATIO, URINE | e | 12:00 AM | | procedure are in the | | | | PDT | | results section. | + +--------+ + + + | URIC ACID | Routin | 12/20/2015 | | Results for this | | | e | 12:00 AM | | procedure are in the | | | | PDT | | results section. | + +--------+ + + + | MAGNESIUM | Routin | 12/20/2015 | | Results for this | | | e | 12:00 AM | | procedure are in the | | | | PDT | | results section. | + +--------+ + + + | RENAL FUNCTION PANEL | Routin | 12/20/2015 | | Results for this | | | e | 12:00 AM | | procedure are in the | | | | PDT | | results section. | + +--------+ + + + documented in this encounter Results Parathyroid Hormone, Intact and Calcium (12/20/2015 12:00 AM PDT) + + + + + + | Component | Value | Ref Range | Performed | Pathologist | | | | | At | Signature | + + + + + + | PTH Intact | 98.62 (A) | 15 - 66 | EXTERNAL | | | | | | LAB | | + + + + + + | Calcium | 9.8 | 8.4 - 10.2 | EXTERNAL | [...] + +---------+ + + Protein/Creatinine Ratio, Urine (12/20/2015 12:00 AM PDT) + + + + + + | Component | Value | Ref Range | Performed | Pathologist | | | | | At | Signature | + + + + + + | Protein/Cre | 120.5Comment: protein | 0 - 150 | EXTERNAL | | | at Ratio | 20 creatinine 166 | | LAB | | + + + + + + + + | Specimen | + + | Urine specimen | | (specimen) | + + + +---------+ + + | Performing | Address | City/State/Zipcode | Phone Number | | Organization | | | | + +---------+ + + | EXTERNAL LAB | | | | + +---------+ + + Vitamin D, Deficiency Screen (25-Hydroxy) (12/20/2015 12:00 AM PDT) + +-------+ + + + | Component | Value | Ref Range | Performed | Pathologist | | | | | At | Signature | + +-------+ + + + | Vit D, | 36 | 30 - 100 | EXTERNAL | | | 25-Hydroxy | | | LAB | | + [...] + + Urinalysis with Microscopic if Indicated (12/20/2015 12:00 AM PDT) + + + + + + | Component | Value | Ref Range | Performed | Pathologist | | | | | At | Signature | + + + + + + | Color | Light Yellow | | EXTERNAL | | | | | | LAB | | + + + + + + | Clarity | Clear | | EXTERNAL | | | | | | LAB | | + + + + + + | Spec Grav, | 1.015 | 1.005 - 1.030 | EXTERNAL | [...] + +---------+ + + External Lab: CBC (12/20/2015 12:00 AM PDT) + +---------+ + + + | Component | Value | Ref Range | Performed | Pathologist | | | | | At | Signature | + +---------+ + + + | WBC | 8.4 | 4.5 - 11.0 10 | EXTERNAL | | | | | | LAB | | + +---------+ + + + | RED CELL | 4.53 | 3.8 - 5.1 10 | EXTERNAL | | | COUNT | | | LAB | | + +---------+ + + + | Hgb | 13.5 | 12.0 - 16.0 | EXTERNAL | | | | | g/dL | LAB | | + +---------+ + + + | Hematocrit, | 41.0 | 35 - 45 % | EXTERNAL | | | POC | | | LAB | | + +---------+ + + + | MCV | 90.5 | 81 - 99 fL | EXTERNAL | | | | | | LAB | | + +---------+ + + + | MCH | 30 | 27 - 33 pg | EXTERNAL | | | | | | LAB | | + +---------+ + + + | MCHC | 33 | 30 - 36 g/dL | EXTERNAL | | | | | | LAB | | + +---------+ + + + | Platelet | 197 | 140 - 440 K/ L | EXTERNAL | | | Count | | | LAB | | | Plasma | | | | | + +---------+ + + + | RDW-CV | 14.1 | 10.5 - 15.0 % | EXTERNAL | | | | | | LAB | | + +---------+ + + + | MPV | | fL | EXTERNAL | | | | | | LAB | | + +---------+ + + + | Differentia | Auto | | EXTERNAL | | | l Type | | | LAB | | + +---------+ + + + | % Segmented | 50.8 | 39 - 80 % | EXTERNAL | | | | | | LAB | | | Neutrophils | | | | | + +---------+ + + + | % | 29.1 | 24 - 44 % | EXTERNAL | | | Lymphocytes | | | LAB | | + +---------+ + + + | % Monocytes | 10.1 | 0 - 12 % | EXTERNAL | | | | | | LAB | | + +---------+ + + + | % | 9.1 (A) | 0 - 6 % | EXTERNAL | | | Eosinophils | | | LAB | | + +---------+ + + + | % Basophils | 0.9 | 0 - 2 % | EXTERNAL | | | | | | LAB | | + +---------+ + + + | Absolute | | / L | EXTERNAL | | | Segmented | | | LAB | | | Neutrophils | | | | | + +---------+ + + + | Absolute | | / L | EXTERNAL | | | Lymphocytes | | | LAB | | + +---------+ + + + | Absolute | | / L | EXTERNAL | | | Monocytes | | | LAB | | + +---------+ + + + | Absolute | | / L | EXTERNAL | | | Eosinophils | | | LAB | | + +---------+ + + + | Absolute | | [...] | + +---------+ + + Uric Acid (12/20/2015 12:00 AM PDT) + +---------+ + + + | Component | Value | Ref Range | Performed | Pathologist | | | | | At | Signature | + +---------+ + + + | Uric Acid | 9.6 (A) | 2.3 - 6.6 | EXTERNAL [...] | | + +---------+ + + Magnesium (12/20/2015 12:00 AM PDT) + +-------+ + + + | Component | Value | Ref Range | Performed | Pathologist | | | | | At | Signature | + +-------+ + + + | Magnesium | 2.4 | 1.7 - 2.5 mg/dL | EXTERNAL [...] + +---------+ + + Renal Function Panel (12/20/2015 12:00 AM PDT) + + + + + + | Component | Value | Ref Range | Performed | Pathologist | | | | | At | Signature | + + + + + + | Glucose, | 138 | 132 - 146 mg/dL | EXTERNAL | | | Fasting | | | LAB | | + + + + + + | BUN | 36 (A) | 6 - 23 mg/dL | EXTERNAL | | | | | | LAB | | + + + + + + | Creatinine | 1.44 (A) | 0.70 - 1.11 | EXTERNAL | | | | | mg/dL | LAB | | + + + + + + | PHOSPHORUS | | mg/dL | EXTERNAL | | | | | | LAB | | + + + + + + | Albumin | 4.1 | 3.5 - 5.0 | EXTERNAL | [...] + + + | Anion Gap | 17.1 | 7 - 21 mmol/L | EXTERNAL | | | | | | LAB | | + + + + + + | eGFR if not | | | EXTERNAL | | | | | | LAB | | | [place] | | | | | + + + + + + | Phosphorus, | 3.5 | 2.5 - 5.0 | EXTERNAL | | | Inorganic | | | LAB | | + + + + + + | BUN/Creatin | 25.0 | 6.0 - 28.6 | EXTERNAL | | | ine Ratio | | | LAB | | + + + + + + | Calcium | 9.8 | 8.4 - 10.2 | EXTERNAL | | | | | mg/dL | LAB | | + + + + + + | Estimated | 35 (A) | 60 mg/dL | EXTERNAL | | | GFR [...]
--- OUTSIDE RECORDS SUMMARY | ~2019-03-06 | XMS | Encounter Summary ---
Demographics + + + | Address | [address] | | | [place] [address] | + + + | Home Phone | | + + + | Preferred Language | Unknown | + + + | Marital Status | | + + + | Pentecostalism Affiliation | 1041 | + + + | Race | Unknown | + + + | Ethnic Group | Unknown | + + + Author + + + | Author | [facility] | | | and [place] | + + + | Organization | [facility] | | | [...] [place], [place] | | | | | [address] | | + + + + + | Rivka Palma | ECON | Unknown | | + + + + + | Geno Kendall | ECON | Unknown | | + + + + + Care Team Providers + +------+ + | Care Rhinestone Setter Name | Role | Phone | + +------+ + | Lorenzo Valdes MD | PCP | | + +------+ + Reason for Visit +--------+ + | Reason | Comments | +--------+ + | Other | antibiotics | +--------+ + Encounter Details +--------+ + + + + | Date | Type | Department | Care Team | Description | +--------+ + + + + | 09/06/ | Telephone | [facility] | Brandon Terry | Other (antibiotics) | | 2013 | | PULMONARY [address] | [place] [address] [address] | | | | | [place], | [place], [place] | | | | | [place] [address] | [address] | | | | | [phone] | | | +--------+ + + + [...] [place] | | | | | | [address] | | | | | | | [...] [place] | | | | | | [phone] | | | | | | | | +--------+ + + + + documented as of this encounter Visit Diagnoses Not on filedocumented in this encounter"
--- OUTSIDE RECORDS SUMMARY | ~2019-03-06 | XMS | Encounter Summary ---
Demographics + + + | Address | [address] | | | [place] [address] | + + + | Home Phone | | + + + | Preferred Language | Unknown | + + + | Marital Status | | + + + | Yazidi Affiliation | 1041 | + + + | Race | Unknown | + + + | Ethnic Group | Unknown | + + + Author + + + | Author | [facility] | | | and [place] | + + + | Organization | [facility] | | | [...] [place], [place] | | | | | [address] | | + + + + + | Rivka Palma | ECON | Unknown | | + + + + + | Geno Kendall | ECON | Unknown | | + + + + + Care Team Providers + +------+ + | Care Center Machine Set Up Operator Name | Role | Phone | + +------+ + | Lorenzo Valdes MD | PCP | | + +------+ + Encounter Details +--------+ + + + + | Date | Type | Department | Care Team | Description | +--------+ + + + + | 11/13/ | Orders Only | [facility] | Conversion | | | 2014 | | CARDIOLOGY [place] | Transaction, | | | | | [address] | Provider Unknown | | | | | [place], [place] | [phone] | | | | | [address] | | | | | | [phone] | | | +--------+ + + + [...] [place] | | | | | | [address] | | | | | | | [...] [place] | | | | | | [address] | | | | | | | | +--------+ + + + + documented as of this encounter Procedures + +--------+ + + + | Procedure Name | Priori | Date/Time | Associated Diagnosis | Comments | | | ty | | | | + +--------+ + + + | CREATININE, URINE, | Routin | 11/13/2014 | | Results for this | | RANDOM | e | 1:15 PM | | procedure are in the | | | | PDT | | results section. | + +--------+ + + + | CK TOTAL | Routin | 11/13/2014 | | Results for this | | | e | 1:15 PM | | procedure are in the | | | | PDT | | results section. | + +--------+ + + + documented in this encounter Results Creatinine, Urine, Random (11/13/2014 1:15 PM PDT) + +-------+ + + + | Component | Value | Ref Range | Performed | Pathologist | | | | | At | Signature | + +-------+ + + + | Creatinine, | 44 | | EXTERNAL | | | 24H Ur | | | LAB | | + +-------+ + + + + + | Specimen | + + | Urine specimen | | (specimen) | + + + +---------+ + + | Performing | Address | City/State/Zipcode | Phone Number | | Organization | | | | + +---------+ + + | EXTERNAL LAB | | | | + +---------+ + + CK Total (11/13/2014 1:15 PM PDT) + +-------+ + + + | Component | Value | Ref Range | Performed | Pathologist | | | | | At | Signature | + +-------+ + + + | CK, Total | 42 | 24 - 170 U/L | EXTERNAL | | | | | [...]
--- OUTSIDE RECORDS SUMMARY | ~2019-03-06 | XMS | Encounter Summary ---
Demographics + + + | Address | [address] | | | [place] [address] | + + + | Home Phone | | + + + | Preferred Language | Unknown | + + + | Marital Status | | + + + | Islam Affiliation | 1041 | + + + | Race | Unknown | + + + | Ethnic Group | Unknown | + + + Author + + + | Author | [facility] | | | and [place] | + + + | Organization | [facility] | | | [...] [place] | | | | | [address] | | + + + + + | Rivka Palma | ECON | Unknown | | + + + + + | Geno Kendall | ECON | Unknown | | + + + + + Care Team Providers + +------+ + | Care Metal Work Duct Installer Name | Role | Phone | + +------+ + | Carmen Schultz MD | PCP | | + +------+ + Reason for Visit +--------+ + | Reason | Comments | +--------+ + | Other | | +--------+ + Encounter Details +--------+ + + + + | Date | Type | Department | Care Team | Description | +--------+ + + + + | 12/15/ | Telephone | [facility] | Td Mondragon MD | Other | | 2019 | | PULMONOLOGY [address] | | | | | [address] | [place] [address] [place], [place] | | | | | [place], [place] | [address] | | | | | [address] | | | | | | [phone] | | | +--------+ + + + + Social History + +-------+ +--------+ + | Tobacco Use | Types | Packs/Day | Years | Date | | | | | Used | | + +-------+ +--------+ + | Former Smoker | | 1 | 30 | 1955 - 02/17/1986 | + +-------+ +--------+ + + [...] [place] | | | | | | [address] | | | | | | | [...] [place] | | | | | | [address] | | | | | | | | +--------+ + + + + documented as of this encounter Visit Diagnoses Not on filedocumented in this encounter"
--- OUTSIDE RECORDS SUMMARY | ~2019-03-06 | XMS | Encounter Summary ---
Demographics + + + | Address | [address] | | | [place] [address] | + + + | Home Phone | | + + + | Preferred Language | Unknown | + + + | Marital Status | | + + + | Jain Affiliation | [id number] | + + + | Race | Unknown | + + + | Ethnic Group | Unknown | + + + Author + + + | Author | [facility] | | | and [place] | + + + | Organization | [facility] | | | [...] [place], [place] | | | | | [address] | | + + + + + | Rivka Palma | ECON | Unknown | | + + + + + | Geno Kendall | ECON | Unknown | | + + + + + Care Team Providers + +------+ + | Care Mechanic Assistant Name | Role | Phone | + +------+ + | Lorenzo Valdes MD | PCP | | + +------+ + Encounter Details +--------+ + + + + | Date | Type | Department | Care Team | Description | +--------+ + + + + | 12/18/ | Hospital | [facility] | Erika Shook MD | Pulmonary edema; | | 2013 - | Encounter | [facility] | [address] [place] | Acute on chronic | | | | CLINICAL DECISION | [address] [place], [place] | renal insufficiency; | | 12/22/ | | [address] | [address] | Systolic CHF, 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[place], [place]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 ([facility]); | | | | [address] | | S/P CABG (coronary | | | | [phone] | | artery bypass | | | | | | graft); Essential | | | | | | hypertension, | | | | | | benign; DM (diabetes | | | | | | mellitus) ([facility]); | | | | | | CAD (coronary artery | | | | | | disease) | +--------+ + + + + Social [...] + + documented as of this encounter Discharge Summaries Rea Khanna MD - 12/22/2013 12:17 PM PDT Discharge Summaries by Rea Khanna MD at 12/22/13 1217 Author: Rea Khanna MD Service: (none) Author Type: Physician Filed: 12/22/13 1418 Date of Service: 12/22/13 121 Status: Signed Local Area Network Administrator: Rea Khanna MD (Physician) Related Notes: Original Note by Rea Khanna MD (Physician) filed at 12/22/13 1222 [facility]: Hospitalist Physician Discharge Summary Patient ID: Tamiko Ireland 1930 83 y.o. Admit date: 12/18/2013 Discharge date: 12/22/2013 Admitting Physician: Erika Shook MD Discharge Physician: Rea Khanna MD Consultants: Treatment Team: Physician Belt Weaver: John Bass PA-C Consulting Physician: rPeston Pena MD Admitting Provider: Erika Shook MD Primary Discharge Diagnoses: Systolic CHF, acute on chronic Secondary Discharge Diagnoses: Essential hypertension, benign DM (diabetes mellitus). Blood sugars are well controlled Ischemic cardiomyopathy CAD (coronary artery disease) Hyperlipidemia S/P CABG (coronary artery bypass graft) Hypokalemia, hypomagnesemia HPI and Hospital Course: An 84-year-old female with history of coronary artery disease, hypertension, asthma, diabet es, blood sugars which are well controlled, who underwent bypass surgery on December 09, 2013, by Dr. Celis and presented on December 18, 2013, with increasing shortness of breath and pedal edema. The patient was found to be in acute pulmonary edema. HOSPITAL COURSE The patient admitted with acute systolic congestive heart failure. The patient had a recent echocardiogram which was not repeated that showed an ejection fraction of about 25%. She wa s diuresed with IV Bumex and the patient gradually improved. The patient had some mild renal insufficiency which resolved. Nephrology consult was also obtained. The patient will be dis charged home on fluid restriction and Bumex, and will follow up outpatient with Dr. Shipman. Th e patient will follow up with cardiothoracic surgery for suture removal. I also discussed wi Dr. Celis and discontinued her metoprolol and started her on Coreg. The patient has rem ained hemodynamically stable. She has been weaned off oxygen and her oxygen saturations are above 93% on room air. She had some mild leukocytosis, but remains afebrile and is clinicall y stable for discharge. The patient also had mild hypokalemia and hypomagnesemia, which was replenished prior to discharge. The plan has been explained in detail to the patient and her and the patient's eldest daughter. All data was reviewed. All questions have been a nswered. Time spent is 40 minutes. I also discussed with Dr. Pena. Past Medical History: Past Medical History Diagnosis Date Hypertension Asthma CHF (congestive heart failure) Hyperlipidemia Diabetes mellitus, type 2 Thyroid disease CAD (coronary artery disease) 09/13/2013 Acute kidney injury 09/30/2013 Non-ST elevated myocardial infarction (non-STEMI) 12/08/2013 Acute systolic heart failure 09/13/2013 Hypokalemia 10/18/2013 SOB (shortness of breath) 09/10/2013 Past Surgical History Procedure Laterality Date Hysterectomy partial Bladder suspension Cataract extraction Coronary artery bypass graft N/A 12/09/2013 Procedure: CABG - CELSO; Surgeon: Niraj Celis MD; Location: [facility] MAIN OR; Service: Car hazard [facility]; Laterality: N/A; Sternotomy 12/09/2013 Procedure: STERNOTOMY; Surgeon: Niraj Celis MD; Location: [facility] MAIN OR; Service: Car dia;; Internal mammary arterial harvest Left 12/09/2013 Procedure: INTERNAL MAMMARY ARTERIAL HARVEST; Surgeon: Niraj Celis MD; Location: [facility] MAIN OR; Service: Cardiac; Laterality: Left; Endovascular vein harvest Right 12/09/2013 Procedure: VEIN - ENDOVASCULAR VEIN HARVEST; Surgeon: Niraj Celis MD; Location: [facility] MAIN OR; Service: Cardiac; Laterality: Right; Discharged Condition: Stable for discharge as stated above. Significant Diagnostic Studies: Xr Chest Pa And Lateral 12/18/2013 1. Worsening edema, probably of cardiogenic cause Xr Chest 1 View 12/21/2013 1. Moderate cardiac enlargement, with improving CHF and pulmonary edema. 2. D ecreasing left greater than right basilar atelectasis, with persistent small left and minima l right effusions. 3. I cannot exclude an underlying element of chronic interstitial change . Progress evaluation for clearing is recommended. Discharge Vitals: Filed Vitals: 12/21/13 2305 12/22/13 0250 12/22/13 0738 12/22/13 1053 BP: 115/68 134/73 122/69 103/57 Pulse: 77 86 86 65 Temp: 97.8 F (36.6 C) 97.4 F (36.3 C) 98.1 F (36.7 C) 95.9 F (35.5 C) TempSrc: Oral Oral Oral Oral Resp: 22 28 28 22 Height: Weight: SpO2: 96% 94% 95% 88% Discharge Exam: General: Well nourished. Psych: Alert and oriented x 3. Calm, cooperative. Cardiovascular: Regular rate and rhythm, 1/6 systolic murmur present, no thrills. Normal PM I. Respiratory: Decreased breath sounds bilateral bases Gastrointestinal: Soft, non-tender, non-distended, positive bowel sounds. No HSM. Musculoskeletal: Bilateral 1+ pedal edema No joint swelling. Skin: Warm and dry, no rashes. Sutures present over the lower sternum Neck: No JVD, Trachea midline. Neurological: Non focal. Motor grossly intact. LABS: Recent Labs Lab 12/22/13 0450 12/21/13 0504 12/20/13 0454 WBC 11.3* 10.1 11.1* RBC 2.99* 2.79* 2.78* HGB 9.2* 8.9* 8.8* HCT 29.2* 27.0* 27.1* MCV 97.4 97.0 97.6 MCH 30.8 32.0 31.6 MCHC 31.6* 32.9 32.4 RDW 50.3 50.3 49.0 PLT 405* 363 352 MPV 7.3 7.3 7.3 DIFFTYPE AUTOMATED AUTOMATED AUTOMATED Recent Labs Lab 12/22/13 0450 12/21/13 0504 12/20/13 0454 12/19/13 0537 12/18/13 1344 NA 138 138 136 135 139 K 3.2* 3.3* 3.5 3.6 4.1 CL 98* 99 101 102 103 CO2 33* 31 29 27 24 BUN 14 15 20 22 22 CREATININE 0.89 1.19* 0.98 1.26* 1.22* PROT -- -- 5.4* 5.4* 6.0* BILITOT -- -- 0.4 0.5 0.5 ALT -- -- 14 14 20 AST -- -- 25 30 37 GLUF 125* 112* 121* 106* 119* Recent Labs Lab 12/18/13 1344 CKTOTAL 65 CKMBINDEX 4.6 Recent Labs Lab 12/22/13 0450 12/21/13 0504 12/20/13 0454 PHOS 2.9 3.3 3.1 Recent Labs Lab 12/22/13 0450 12/21/13 1909 12/21/13 1240 MG 1.6* 1.9 1.6* , Disposition: Home Follow up: MD Jorge Bowen MD [address] [id number] In 4 days Godfrey Shipman MD [address] [facility] [phone] On 12/26/2013 Niraj Celis MD [address] [facility] [address] Medication List START taking these medications bumetanide 1 MG tablet QTY: 60 tablet Refills: 11 Doctor's comments: Patient to take 1 mg in the morning and 1 mg in the afternoon Commonly known as: BUMEX Take 1 tablet by mouth 2 (two) times daily. carvedilol 3.125 MG tablet QTY: 60 tablet Refills: 0 Commonly known as: COREG Take 1 tablet by mouth 2 (two) times daily with meals. losartan 25 MG tablet QTY: 30 tablet Refills: 0 Commonly known as: COZAAR Take 1 tablet by mouth daily. CHANGE how you take these medications potassium chloride SA 20 MEQ tablet QTY: 14 tablet Refills: 0 Commonly known as: K-DUR,KLOR-CON Take 2 tablets by mouth daily. What changed: - medication strength - how much to take - when to take this CONTINUE taking these medications albuterol 108 (90 BASE) MCG/ACT inhaler QTY: 18 g Refills: 3 Commonly known as: PROVENTIL HFA;VENTOLIN HFA Inhale 2 puffs into the lungs every 4 (four) hours as needed for Wheezing. amiodarone 200 MG tablet Refills: 0 Doctor's comments: To continue until seen by cardiothoracic surgery Commonly known as: PACERONE Take 1 tablet by mouth daily. aspirin EC 325 MG EC tablet QTY: 30 tablet Refills: 11 Take 1 tablet by mouth daily with breakfast. budesonide 180 MCG/ACT inhaler Refills: 0 Commonly known as: PULMICORT Cetirizine HCl 10 MG Caps Refills: 0 Cholecalciferol 1000 UNITS capsule Refills: 0 FLUTICASONE PROPIONATE (NASAL) NA Refills: 0 GUAIFENESIN 1200 PO Refills: 0 levothyroxine 75 MCG tablet Refills: 0 Commonly known as: SYNTHROID magnesium oxide 400 MG tablet QTY: 90 tablet Refills: 3 Commonly known as: MAG-OX Take 1 tablet by mouth daily. omeprazole 20 MG capsule Refills: 0 Commonly known as: PRILOSEC rosuvastatin 20 MG tablet Refills: 0 Commonly known as: CRESTOR STOP taking these medications metoprolol 25 MG tablet Commonly known as: LOPRESSOR torsemide 10 MG tablet Commonly known as: DEMADEX Where to Get Your Medications These are the prescriptions that you need to pharmacy picking technician. You may get the following medications from any pharmacy - bumetanide 1 MG tablet - carvedilol 3.125 MG tablet - losartan 25 MG tablet - potassium chloride SA 20 MEQ tablet Information on where to get these meds is not yet available. Ask your nurse or doctor. - amiodarone 200 MG tablet Rea Khanna MD 12/22/2013 12:17 PM Discharge took 40 minutes, to include final examination, discussion of admission, and prep aration of prescriptions, instructions for ongoing care, follow up and dictation of summary. This entry has been created using [employer] Speech Recognition software and [employer]. The entry has been reviewed and there may still exist sound alike word errors. documented in th is encounter Medications at Time of Discharge + [...] mg by mouth | | 0 | 09/13/20 | | | ASPIRIN EC LOW | [...] puffs every | 1 | 6 | 03/16/20 | | | (ATROVENT HFA) 17 | 6 hours as needed | Inhaler | | 13 | 5 | | mcg/puff | for shortness of | | | | | | inhalerIndications: | breath | | | | | | Bronchiectasis | | | | | | | ([facility]), Bronchitis, | | | | | | | obstructive, chronic | | | | | | | ([facility]) | | | | | | + [...] + + + +---------+ + + | PULMICORT | inhale 2 puffs by | 1 each | 11 | 07/26/19 | | | FLEXHALER 180 | mouth twice a day | | | 13 | 5 | | MCG/ACT inhaler | | | | | | + [...] documented as of this encounter Progress Notes Conversion Transaction, Provider Unknown - 12/22/2013 5:13 PM PDTFormatting of this note m ight be different from the original. Nurse Progress Note by Alexandra Martin RN at 12/22/131712 Author: Alexandra Martin RN Service: (none) Author Type: Registered Nurse Filed: 12/22/131713 Date of Service: 12/22/131712 Status: Signed Local Area Network Administrator: Alexandra Martin RN (Registered Nurse) Discharge instructions given to the patient, her , and their daughter. All stated un derstanding. Patient denied pain and vitals stable. Patient discharged to private residence via private automobile. patient left with all belongings. ALEXANDRA MARTIN RN Preston Ziegler MD - 12/22/2013 12:10 PM PDTFormatting of this note might be different from the o riginal. Progress Notes by Preston Pena MD at 12/22/13 1210 Author: Preston Pena MD Service: Nephrology Author Type: Physician Filed: 12/22/13 1502 Date of Service: 12/22/13 1210 Status: Signed Local Area Network Administrator: Preston Pena MD (Physician) [facility]: NEPHROLOGY CONSULT Note Tamiko Ireland 83 y.o. [id number] female [place] [facility] Day: LOS: 4 days Date of Admission: 12/22/2013 Requesting Physician: ED provider/ Hospitalist Reason for Admission: Systolic CHF, acute on chronic History Obtained From: patient, family CHIEF COMPLAINT: Fatigue; and Post-op Problem HISTORY OF PRESENT ILLNESS: The patient is a 83 y.o. female with significant past medical history of Asthma, Hypertensi on, Hyperlipidemia, Diabetes mellitus-2, CAD, severe CMP S/P CABG, presented to ED with inc reasing shortness of breath over last 48 hrs She had CABG On December 09 by at [facility] d/c on Dec 17 After arriving home Over last 48 hrs developed SOB , no chest Pain- ALSO C/ O PAIN RIGHT ANKLE from where the vein harvest was done but patient. but assoicted with fatigue She was d/c on ( Torsemid 10 mg 1 tab every other day ) with increasing SOb and bilateral leg swelling , fatigue , she went to [place] [facility] in [facility] then she was transfer to [facility] ER for further care evalution Nephrology consulted for evaluation and management of ACUTE ON CHRONIC RENAL INSUFFIC IENCY while admitted with CHF Following Dr. Shipman in the office, she has an appointment on Thursday for follow-up ONSET ACUTE, MOD SEVERE Associated with fluid electrolyte acid base imbalances Family history: No family history of kidney disease with close family members being on dial ysis at early age. LIVES AT HOME WITH IN [facility], [facility], Social history, medications, allergies, labs and imaging reviewed. Previous history summarized as above. Prior lab data and imaging reviewed. Patient is feeling a lot better, edema almost resolved, short of breath better, oxygen requ irement decreased. Past Medical History Diagnosis Date Hypertension Asthma CHF (congestive heart failure) Hyperlipidemia Diabetes mellitus, type 2 Thyroid disease CAD (coronary artery disease) 09/13/2013 Acute kidney injury 09/30/2013 Non-ST elevated myocardial infarction (non-STEMI) 12/08/2013 Acute systolic heart failure 09/13/2013 Hypokalemia 10/18/2013 SOB (shortness of breath) 09/10/2013 Past Surgical History Procedure Laterality Date Hysterectomy partial Bladder suspension Cataract extraction Coronary artery bypass graft N/A 12/09/2013 Procedure: CABG - CELSO; Surgeon: Niraj Celis MD; Location: [facility] MAIN OR; Service: Car diac; Laterality: N/A; Sternotomy 12/09/2013 Procedure: STERNOTOMY; Surgeon: Niraj Celis MD; Location: [facility] MAIN OR; Service: Car diac;; Internal mammary arterial harvest Left 12/09/2013 Procedure: INTERNAL MAMMARY ARTERIAL HARVEST; Surgeon: Niraj Celis MD; Location: [facility] MAIN OR; Service: Cardiac; Laterality: Left; Endovascular vein harvest Right 12/09/2013 Procedure: VEIN - ENDOVASCULAR VEIN HARVEST; Surgeon: Niraj Celis MD; Location: [facility] MAIN OR; Service: Cardiac; Laterality: Right; Prescriptions prior to admission Medication Sig Dispense Refill albuterol (PROVENTIL HFA;VENTOLIN HFA) 108 (90 BASE) MCG/ACT inhaler Inhale 2 puffs int o the lungs every 4 (four) hours as needed for Wheezing. 18 g 3 amiodarone (PACERONE) 200 MG tablet Take 1 tablet by mouth daily. 10 tablet 0 aspirin EC 325 MG EC tablet Take 1 tablet by mouth daily with breakfast. 30 tablet 11 budesonide (PULMICORT) 180 MCG/ACT inhaler Inhale 2 puffs into the lungs 2 (two) times daily. Cetirizine HCl 10 MG CAPS Take by mouth. Cholecalciferol 1000 UNITS capsule Take 1,000 Units by mouth daily. FLUTICASONE PROPIONATE, NASAL, NA by Nasal route. GUAIFENESIN 1200 PO Take by mouth. levothyroxine (SYNTHROID) 75 MCG tablet Take 75 mcg by mouth every morning before break fast. magnesium oxide (MAG-OX) 400 MG tablet Take 1 tablet by mouth daily. 90 tablet 3 metoprolol (LOPRESSOR) 25 MG tablet Take 1 tablet by mouth 2 (two) times daily. 60 tab let 11 omeprazole (PRILOSEC) 20 MG capsule Take 40 mg by mouth every morning before breakfast. potassium chloride (K-DUR) 10 MEQ tablet Take 1 tablet by mouth every other day. 30 ta blet 0 rosuvastatin (CRESTOR) 20 MG tablet Take 20 mg by mouth nightly. torsemide (DEMADEX) 10 MG tablet Take 1 tablet by mouth every other day. 30 tablet 1 Allergies Allergen Reactions Lasix [Furosemide] Other (See Comments) Joint pain Latex Rash Family History Problem Relation Age of Onset Sudden Father Hypertension Father Hypertension Sister Sudden Sister Diabetes type II Paternal Grandmother Heart disease Paternal Grandmother Hypertension Paternal Grandmother Sudden Paternal Grandmother History Smoking status Former Smoker Quit date: 12/09/1983 Smokeless tobacco Never Used History Alcohol Use No History Drug Use No Home Medications Prescriptions prior to admission Medication Sig Dispense Refill albuterol (PROVENTIL HFA;VENTOLIN HFA) 108 (90 BASE) MCG/ACT inhaler Inhale 2 puffs int o the lungs every 4 (four) hours as needed for Wheezing. 18 g 3 amiodarone (PACERONE) 200 MG tablet Take 1 tablet by mouth daily. 10 tablet 0 aspirin EC 325 MG EC tablet Take 1 tablet by mouth daily with breakfast. 30 tablet 11 budesonide (PULMICORT) 180 MCG/ACT inhaler Inhale 2 puffs into the lungs 2 (two) times daily. Cetirizine HCl 10 MG CAPS Take by mouth. Cholecalciferol 1000 UNITS capsule Take 1,000 Units by mouth daily. FLUTICASONE PROPIONATE, NASAL, NA by Nasal route. GUAIFENESIN 1200 PO Take by mouth. levothyroxine (SYNTHROID) 75 MCG tablet Take 75 mcg by mouth every morning before break fast. magnesium oxide (MAG-OX) 400 MG tablet Take 1 tablet by mouth daily. 90 tablet 3 metoprolol (LOPRESSOR) 25 MG tablet Take 1 tablet by mouth 2 (two) times daily. 60 tab let 11 omeprazole (PRILOSEC) 20 MG capsule Take 40 mg by mouth every morning before breakfast. potassium chloride (K-DUR) 10 MEQ tablet Take 1 tablet by mouth every other day. 30 ta blet 0 rosuvastatin (CRESTOR) 20 MG tablet Take 20 mg by mouth nightly. torsemide (DEMADEX) 10 MG tablet Take 1 tablet by mouth every other day. 30 tablet 1 Scheduled Medications amiodarone 200 mg Oral Daily aspirin 325 mg Oral Daily with breakfast budesonide 2 puff Inhalation BID bumetanide 1 mg Intravenous BID carvedilol 3.125 mg Oral BID WC cetirizine 10 mg Oral Daily enoxaparin 30 mg Subcutaneous Q12H insulin aspart 0-3 Units Subcutaneous Nightly insulin aspart 0-6 Units Subcutaneous TID AC levothyroxine 75 mcg Oral QAM AC losartan 25 mg Oral Daily omeprazole 40 mg Oral QAM AC potassium chloride 40 mEq Oral Once rosuvastatin 5 mg Oral Nightly sodium chloride (PF) 10 mL Intravenous Q8H Continuous Infusions dextrose PRN Medications acetaminophen, acetaminophen, dextrose, dextrose, dextrose, glucagon, glucagon, magnesium s ulfate, magnesium sulfate, magnesium sulfate, melatonin, ondansetron, ondansetron, phosphoru s, polyethylene glycol, sodium phosphate IVPB 15 mmol, sodium phosphate IVPB 30 mmol, zolpid em Allergy: Allergies Allergen Reactions Lasix [Furosemide] Other (See Comments) Joint pain Latex Rash OBJECTIVE Vital Signs: BP 103/57 | Pulse 65 | Temp(Src) 95.9 F (35.5 C) (Oral) | Resp 22 | Ht 1.676 m (5' 5.98 ") | Wt 67.4 kg (148 lb 9.4 oz) | BMI 23.99 kg/m2 | SpO2 88% | ? No I&O Detailed Table: I/O last 3 completed shifts: In: 860 [P.O.:860] Out: 4675 [Urine:4675] Weight change: -0.6 kg (-1 lb 5.2 oz) Hemodynamics Last 24hrs: Examination: General:not in acute distress. HEENT: Head normocephalic. Pupils are normal. Tongue pink. Throat clear. Neck: Supple. JVD not raised. No thyromegaly, no bruit. Chest: Few bilateral basal crackles present to auscultation.BETTER Breasts: Both breasts no masses Heart: S1 and S2 without S3.CABG SCAR NOTICED Abdomen: Soft, bowel sound present, nontender. No bruit over the abdominal aorta and both femorals. Rectal/Pelvic examination: Deferred. Extremities:?? TRACE edema feet. Peripheral pulses are normal. No cyanosis or clubbing. No redness or tenderness over the calf Neurologic: Nonfocal. Alert and oriented x3. Skin: no rash or purpura. LYMPH NODES; NOT PALPABLE LABS: Recent Results (from the past 48 hour(s)) POCT GLUCOSE Collection Time 12/20/13 4:18 PM Result Value Range GLUCOSE,POC SCREEN 116 (*) 65 - 99 mg/dL POCT GLUCOSE Collection Time 12/20/13 9:10 PM Result Value Range GLUCOSE,POC SCREEN 163 (*) 65 - 99 mg/dL CBC W/AUTO DIFF (REFLEX TO MANUAL) Collection Time 12/21/13 5:04 AM Result Value Range WBC 10.1 3.8 - 11.0 K/uL RBC 2.79 (*) 3.70 - 5.10 M/uL HGB 8.9 (*) 11.3 - 15.5 g/dL HCT 27.0 (*) 34.0 - 46.0 % MCV 97.0 80.0 - 100.0 fl MCH 32.0 27.0 - 34.0 pg MCHC 32.9 32.0 - 35.5 g/dL RDW SD 50.3 37 - 53 fl PLT 363 150 - 400 K/uL MPV 7.3 DIFF TYPE AUTOMATED NEUTROPHILS 66.8 LYMPHOCYTES 20.2 MONOCYTES 7.8 EOSINOPHILS 4.4 BASOPHILS 0.8 NEUTROPHILS ABS 6.7 1.9 - 7.4 K/uL LYMPHOCYTES ABS 2.0 1.0 - 3.9 K/uL MONOCYTES ABS 0.8 0 - 0.8 K/uL EOSINOPHILS ABS 0.4 0 - 0.5 K/uL BASOPHILS ABS 0.1 0 - 0.1 K/uL MAGNESIUM Collection Time 12/21/13 5:04 AM Result Value Range MAGNESIUM 1.4 (*) 1.7 - 2.4 mg/dL PHOSPHOROUS Collection Time 12/21/13 5:04 AM Result Value Range PHOSPHORUS 3.3 2.3 - 4.8 mg/dL BASIC METABOLIC PANEL Collection Time 12/21/13 5:04 AM Result Value Range SODIUM 138 135 - 143 mmol/L POTASSIUM 3.3 (*) 3.5 - 4.9 mmol/L CHLORIDE 99 99 - 109 mmol/L CO2 31 23 - 32 mmol/L ANION GAP AGAP 11 5 - 20 mmol/L GLUCOSE 112 (*) 65 - 99 mg/dL BUN 15 8 - 25 mg/dL CREATININE 1.19 (*) 0.50 - 1.00 mg/dL BUN/CREAT 13 CALCIUM 8.2 (*) 8.5 - 10.2 mg/dL EGFR 46 (*) >60 mL/min/1.73m2 POCT GLUCOSE Collection Time 12/21/13 5:24 AM Result Value Range GLUCOSE,POC SCREEN 108 (*) 65 - 99 mg/dL POCT GLUCOSE Collection Time 12/21/13 11:30 AM Result Value Range GLUCOSE,POC SCREEN 155 (*) 65 - 99 mg/dL MAGNESIUM Collection Time 12/21/13 12:40 PM Result Value Range MAGNESIUM 1.6 (*) 1.7 - 2.4 mg/dL POCT GLUCOSE Collection Time 12/21/13 5:42 PM Result Value Range GLUCOSE,POC SCREEN 117 (*) 65 - 99 mg/dL MAGNESIUM Collection Time 12/21/13 7:09 PM Result Value Range MAGNESIUM 1.9 1.7 - 2.4 mg/dL POCT GLUCOSE Collection Time 12/21/13 9:18 PM Result Value Range GLUCOSE,POC SCREEN 152 (*) 65 - 99 mg/dL CBC W/AUTO DIFF (REFLEX TO MANUAL) Collection Time 12/22/13 4:50 AM Result Value Range WBC 11.3 (*) 3.8 - 11.0 K/uL RBC 2.99 (*) 3.70 - 5.10 M/uL HGB 9.2 (*) 11.3 - 15.5 g/dL HCT 29.2 (*) 34.0 - 46.0 % MCV 97.4 80.0 - 100.0 fl MCH 30.8 27.0 - 34.0 pg MCHC 31.6 (*) 32.0 - 35.5 g/dL RDW SD 50.3 37 - 53 fl PLT 405 (*) 150 - 400 K/uL MPV 7.3 DIFF TYPE AUTOMATED NEUTROPHILS 66.7 LYMPHOCYTES 20.9 MONOCYTES 7.7 EOSINOPHILS 4.0 BASOPHILS 0.7 NEUTROPHILS ABS 7.5 (*) 1.9 - 7.4 K/uL LYMPHOCYTES ABS 2.4 1.0 - 3.9 K/uL MONOCYTES ABS 0.9 (*) 0 - 0.8 K/uL EOSINOPHILS ABS 0.5 0 - 0.5 K/uL BASOPHILS ABS 0.1 0 - 0.1 K/uL MAGNESIUM Collection Time 12/22/13 4:50 AM Result Value Range MAGNESIUM 1.6 (*) 1.7 - 2.4 mg/dL RENAL FUNCTION PANEL Collection Time 12/22/13 4:50 AM Result Value Range SODIUM 138 135 - 143 mmol/L POTASSIUM 3.2 (*) 3.5 - 4.9 mmol/L CHLORIDE 98 (*) 99 - 109 mmol/L CO2 33 (*) 23 - 32 mmol/L ANION GAP AGAP 10 5 - 20 mmol/L GLUCOSE 125 (*) 65 - 99 mg/dL BUN 14 8 - 25 mg/dL CREATININE 0.89 0.50 - 1.00 mg/dL CALCIUM 8.5 8.5 - 10.2 mg/dL Albumin 3.1 (*) 3.3 - 4.8 g/dL PHOSPHORUS 2.9 2.3 - 4.8 mg/dL EGFR >60 >60 mL/min/1.73m2 POCT GLUCOSE Collection Time 12/22/13 5:32 AM Result Value Range GLUCOSE,POC SCREEN 134 (*) 65 - 99 mg/dL ] IMAGING: Xr Chest Pa And Lateral 12/18/2013 HISTORY: 83-year-old female, pain TECHNIQUE: 1. 2 view radiographic examinatio n of the chest. 18 December. 13:51 Prior study for review : 15 December 2013 FINDINGS: Car diomegaly, sternal wires and vasculopathy. Chronic findings Diffuse interstitial edema and basilar infiltrates, worse. 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 Interstitial edema seems worse 12/18/2013 1. Worsening edema, probably of cardiogenic cause Xr Chest 2 View 12/15/2013 TAM[place] XR CHEST 2 VIEW FRONTAL AND LATERAL 12/15/2013 7:55 AM HISTORY: Short ness of breath. TECHNIQUE: 2 views of the chest. FINDINGS: Compared with 12/13/13. The left pleural drain has been removed. No evidence of pneumothorax. There are persistent minimal bi lateral pleural effusions or pleural thickening. Cardiomegaly is unchanged. There is persist ent minimal perihilar interstitial edema and basilar atelectasis. 12/15/2013 1. Status post removal of the left pleural drain. No evidence of pneumothorax. No other significant change from the prior study. Xr Chest 1 View 12/21/2013 HISTORY: Shortness of breath. COMPARISON: 12/18/13. TECHNIQUE: Portable AP upri ght film the chest at 0609 hrs. FINDINGS: Persistent moderate cardiac enlargement post medi an sternotomy. Improvement of pulmonary venous congestion. Residual reticular interstitial p rominence in both lung smith. Small bibasilar effusions. Left greater than right basilar at electasis. 12/21/2013 1. Moderate cardiac enlargement, with improving CHF and pulmonary edema. 2. D ecreasing left greater than right basilar atelectasis, with persistent small left and minima l right effusions. 3. I cannot exclude an underlying element of chronic interstitial change . Progress evaluation for clearing is recommended. Patient's old records and labs were reviewed in detail and summarized. PROBLEM LIST Patient Active Problem List Diagnosis Date Noted Acute on chronic renal insufficiency 12/21/2013 Systolic CHF, acute on chronic 12/21/2013 S/P CABG (coronary artery bypass graft) 12/19/2013 Volume overload 12/13/2013 Hyponatremia 12/11/2013 Acute blood loss anemia 12/11/2013 Renal insufficiency 12/10/2013 Non-ST elevated myocardial infarction (non-STEMI) 12/08/2013 Hyperlipidemia 10/06/2013 Urinary tract infection, site not specified 10/02/2013 Hypotension, unspecified 09/30/2013 Cardiomyopathy 09/30/2013 Ischemic cardiomyopathy 09/13/2013 CAD (coronary artery disease) 09/13/2013 Essential hypertension, benign 09/10/2013 DM (diabetes mellitus) 09/10/2013 Troponin level elevated 09/10/2013 ASSESSMENT & PLAN Principal Problem: Systolic CHF, acute on chronic Active Problems: Essential hypertension, benign DM (diabetes mellitus) Ischemic cardiomyopathy CAD (coronary artery disease) Hyperlipidemia S/P CABG (coronary artery bypass graft) Acute on chronic renal insufficiency ACUTE ON CHRONIC RENAL INSUFFICIENCY nonoliguric CKD Stage 3 likely secondary to cardiopulmonary syndrome with very low ejectio n fraction and systolic congestive heart failure with minimal proteinuria baseline serum cr eatinine 1 to 1.2 mg/dL from 2013. Kidney function was stable s/p CABG. 2 D echo ;09/2013 ;1. Dilated Cardiomyopathy. LVEDd 59mm, severe global hypokinesis, Grade 3 diastolic abnormality, LVEF <20%.. Moderate Pulmonary HTN, est systolic PAP 52-57mmHg. Renal USG ; ;Bilateral renal cysts (no hydronephrosis). Strict I/O Daily CMP (including Mg, PO4). Pt to AVOID NSAID,JEONG II inhibitors,IV Contrast and Nephrotoxic Antibiotics DOSE ALL MEDS PER CURRENT e GFR. LOW SODIUM DIET Will continue Bumex 1 mg twice a day PO MAY BE SWITCHED TO DEMADEX ONCE STABLE AT A LATER DATE Lab Results Component Value Date BUN 14 12/22/2013 BUN 15 12/21/2013 BUN 20 12/20/2013 CREATININE 0.89 12/22/2013 CREATININE 1.19* 12/21/2013 CREATININE 0.98 12/20/2013 EGFR >60 12/22/2013 EGFR 46* 12/21/2013 EGFR 58* 12/20/2013 Lab Results Component Value Date K 3.2* 12/22/2013 K 3.3* 12/21/2013 K 3.5 12/20/2013 . NEEDS SUPPLEMENTAL KCL 60 meq today LOW MAG Lab Results Component Value Date MG 1.6* 12/22/2013 MG 1.9 12/21/2013 MG 1.6* 12/21/2013 MAG OX 400 mg shelley po S/P CABG BY Dr. 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 PRESTON PENA MD 12/22/2013 onversio n Transaction, Provider Unknown - 12/22/2013 9:44 AM PDTFormatting of this note might be di fferent from the original. Case Management by Izabella Fontanez RN at 12/22/13943 Author: Izabella Fontanez RN Service: (none) Author Type: Registered Nurse Filed: 12/22/1345 Date of Service: 12/22/13943 Status: Signed Local Area Network Administrator: Izabella Fontaenz RN (Registered Nurse) Faxed referral to [facility] c/o Summer @ [phone] Faxed Patient information to Dr. Green's office [phone] Who will be covering for Dr. Valdes until the 26 of December. Hailee Chatterjee PT - 12/22/2013 8:45 AM PDT Therapy Progress Note by Hailee Harris PT at 12/22/13 0845 Author: Hailee Harris PT Service: (none) Author Type: Physical Therapist Filed: 12/22/13917 Date of Service: 12/22/13844 Status: Signed Local Area Network Administrator: Hailee Harris PT (Physical Therapist) 12/22/13844 PT Last Visit PT Received On 12/22/13 Reason for Treatment Cardiac Requires PT Follow Up Yes Assistance Required 1 person Precautions Cardiac Precautions Sternal Other Comments Comments Pt agreeable to PT, but states she did not sleep last night - up to commode every hour or 2 due to Lasix. Pt reports feeling fatigued today. Pt about to take shower, agreea ble to ambulate to shower with PT. Pt denies SOB after ambulating to shower. Pt left in ower room with IRRIGATION DISTRICT MANAGER Cognition Overall Cognitive Status WFL Orientation Level Oriented Comments Vitals: 118/69 78 95% 2L/min Bed Mobility Supine to Sit Standby assist Scooting Standby assist Transfers Sit to/from Stand Standby assist Mobility Ambulation Assistance Standby assist Maximal Ambulation Distance (feet) 90 ft Total Ambulation Distance (feet) 90ft Distance limited by? Therapist/staff discretion Pattern Alternating;Decreased karlo Assistive Device Walker front wheeled Modalities Other Therapy Ed on vitals, gait, deep breathing. Activity Tolerance Activity Tolerance Patient tolerated treatment without report of fatigue Safety Devices Safety Devices in Place (in shower room with IRRIGATION DISTRICT MANAGER) Plan Treatment/Interventions Continue per Primary PT POC Progress Progressing toward goals Recommendation Recommendations Home with daytime assist;Home PT No barriers to DC noted at this session. Pt has supportive family at home. Pt is still us ing supplemental O2, was not using when previously DC'd. May need home O2 assessment if she cannot be weaned. Rea Arroyo MD - 12/21/2013 1:23 PM PDT Progress Notes by Rea Khanna MD at 12/21/13 1323 Author: Rea Khanna MD Service: (none) Author Type: Physician Filed: 12/21/13 8064 Date of Service: 12/21/13 1323 Status: Signed Local Area Network Administrator: Rea Khanna MD (Physician) [facility]: Hospitalist Progress Note Hospital Day: LOS: 3 days SUBJECTIVE Patient Summary: 83-year-old female with history of coronary artery disease, diabetes , hypertension, status post bypass on December 09 present to the ED with worsening shortness o f breath. Patient admitted with the congestive heart failure and started on IV Bumex. Events Overnight: Patient feels much better today. Able to ambulate without dyspnea Scheduled Medications amiodarone 200 mg Oral Daily aspirin 325 mg Oral Daily with breakfast budesonide 2 puff Inhalation BID [START ON 12/22/2013] bumetanide 1 mg Intravenous Daily cetirizine 10 mg Oral Daily enoxaparin 30 mg Subcutaneous Q12H insulin aspart 0-3 Units Subcutaneous Nightly insulin aspart 0-6 Units Subcutaneous TID AC levothyroxine 75 mcg Oral QAM AC losartan 25 mg Oral Daily metoprolol 25 mg Oral BID omeprazole 40 mg Oral QAM AC rosuvastatin 5 mg Oral Nightly sodium chloride 10 mL Intravenous Q8H Continuous Infusions dextrose PRN Medications acetaminophen, acetaminophen, dextrose, dextrose, dextrose, glucagon, glucagon, magnesium s ulfate, magnesium sulfate, magnesium sulfate, melatonin, ondansetron, ondansetron, phosphoru s, polyethylene glycol, sodium phosphate IVPB 15 mmol, sodium phosphate IVPB 30 mmol, zolpid em OBJECTIVE Vital Signs: BP 120/63 | Pulse 69 | Temp(Src) 97.5 F (36.4 C) (Oral) | Resp 18 | Ht 1.676 m (5' 5.98 ") | Wt 68 kg (149 lb 14.6 oz) | BMI 24.21 kg/m2 | SpO2 92% | ? No Patient Vitals for the past 24 hrs: BP Temp Temp src Pulse Resp SpO2 Weight 12/21/13 1117 120/63 mmHg 97.5 F (36.4 C) Oral 69 18 92 % - 12/21/13 0820 - - - - - 88 % - 12/21/13 0751 122/66 mmHg 98 F (36.7 C) Oral 68 18 95 % - 12/21/13 0543 - - - - - - 68 kg (149 lb 14.6 oz) 12/21/13 0524 117/60 mmHg 97.7 F (36.5 C) Oral 64 16 97 % - 12/20/13 2309 109/60 mmHg 97.9 F (36.6 C) Oral 60 16 96 % - 12/20/13 1957 114/59 mmHg 97.6 F (36.4 C) Oral 72 18 96 % - 12/20/13 1511 99/49 mmHg 95.7 F (35.4 C) Oral 65 18 95 % - Intake/Output Summary (Last 24 hours) at 12/21/13 1328 Last data filed at 12/21/13 1211 Gross per 24 hour Intake 760 ml Output 2450 ml Net -1690 ml Physical Exam: Constitutional: Alert and oriented to person, place, and time. Appears well-developed and w ell-nourished. HEENT: Neck supple, Cardiovascular: Normal rate, regular rhythm, normal heart sounds with S1 and S2, Exam re veals no gallop and no friction rub. One out of 6 systolic murmur heard. No S3, No S4 Pulmonary/Chest: Effort normal and breath sounds decreased bilaterally No stridor. No respi ratory distress. no wheezes. no rales. exhibits no tenderness. Sutures present over the travis rnum. No signs of any discharge Abdominal: Soft. Bowel sounds are normal. exhibits no distension and no mass. There is no t enderness. There is no rebound and no guarding. Extremeties/Musculoskeletal: Normal range of motion.exhibits no tenderness. Bilateral 1+ p edal edema. Neurological: Alert and oriented to person, place, and time. Skin: Skin is warm and dry. Psychiatric: Has a normal mood and affect. DATA Recent Labs Lab 12/21/13 0504 12/20/13 0454 12/19/13 0537 WBC 10.1 11.1* 11.2* RBC 2.79* 2.78* 2.64* HGB 8.9* 8.8* 8.4* HCT 27.0* 27.1* 25.2* MCV 97.0 97.6 95.2 MCH 32.0 31.6 31.9 MCHC 32.9 32.4 33.6 RDW 50.3 49.0 50.3 PLT 363 352 341 MPV 7.3 7.3 7.2 DIFFTYPE AUTOMATED AUTOMATED AUTOMATED Recent Labs Lab 12/21/13 0504 12/20/13 0454 12/19/13 0537 12/18/13 1344 NA 138 136 135 139 K 3.3* 3.5 3.6 4.1 CL 99 101 102 103 CO2 31 29 27 24 BUN 15 20 22 22 CREATININE 1.19* 0.98 1.26* 1.22* PROT -- 5.4* 5.4* 6.0* BILITOT -- 0.4 0.5 0.5 ALT -- 14 14 20 AST -- 25 30 37 GLUF 112* 121* 106* 119* Recent Labs Lab 12/18/13 1344 CKTOTAL 65 CKMBINDEX 4.6 Recent Labs Lab 12/21/13 0504 12/20/13 0454 12/19/13 0537 PHOS 3.3 3.1 3.5 Recent Labs Lab 12/21/13 1240 12/21/13 0504 12/20/13 0454 MG 1.6* 1.4* 1.5* Echo done 12/13/2013 1. LV dimensions NML, global hypokinesis, LVEF 25-30%. LV false tendon. When compared to Echo 09/15/2013, there appears to be slight improvment in LVEF. 2. LA/RA NML. RV dimensions NML, systolic funciton impaired. 3. Mild MR, mild AI. 4. No Pericardial effusion. Xr Chest Pa And Lateral 12/18/2013 1. Worsening edema, probably of cardiogenic cause Xr Chest 2 View 12/15/2013 1. Status post removal of the left pleural drain. No evidence of pneumothorax. No other significant change from the prior study. Chest x-ray 12/21/2013 Impression: 1. Moderate cardiac enlargement, with improving CHF and pulmonary edema. 2. Decreasing left greater than right basilar atelectasis, with persistent small left and minimal right effusions. 3. I cannot exclude an underlying element of chronic interstitial change. Progress evaluat ion for clearing is recommended. PROBLEM LIST Principal Problem: CHF (congestive heart failure) Active Problems: Essential hypertension, benign DM (diabetes mellitus) Ischemic cardiomyopathy CAD (coronary artery disease) Hyperlipidemia S/P CABG (coronary artery bypass graft) Acute renal insufficiency ASSESSMENT & PLAN 1. Acute systolic Congestive heart failure, status post bypass. Continue IV. Bumex Continue losartan and metoprolol. Improving. Patient still remains hypoxic. May need home oxygen. Shanice frias need to switch metoprolol to Coreg 2. Diabetes. Blood sugars well controlled on sliding scale insulin 3. Hypertension. Blood pressure is well controlled 4. Status post coronary artery bypass surgery. Outpatient follow-up with cardiac thoracic s urgzohaib. Continue aspirin and amiodarone 5. Hypothyroidism. Continue levothyroxine, TSH is elevated. However, working for this withi n normal limits 6. Hyperlipidemia. Continue Crestor 7. DVT prophylaxis. Continue Lovenox 8. Mild anemia. Normocytic normochromic Hemoglobin is stable, most probably related to her surgery 9. Hypomagnesemia, will replenish 10. Hypokalemia will replenish 11. Acute renal insufficiency. Nephrology consulted, most likely secondary to diuresis, ellis l reduce Bumex dose. May need to stop Cozaar of creatinine trends up The plan is been explained in detail to the patient and her . All data was reviewed. Disposition: Pending inpatient course Code Status: Full Code Rea Khanna MD 12/21/2013 1:28 PM This entry has been created using Fluther Speech Recognition software and [employer]. The entry has been reviewed and there may still exist sound alike word errors. onversion Trans action, Provider Unknown - 12/21/2013 11:28 AM PDT Therapy Progress Note by Sulaiman Tapia PTA at 12/21/13 1128 Author: Sulaiman Tapia PTA Service: (none) Author Type: Coil Machine Operator Filed: 12/21/13 1129 Date of Service: 12/21/131127 Status: Signed Local Area Network Administrator: Sulaiman Tapia PTA (Coil Machine Operator) 12/21/13 1128 PT Last Visit PT Received On 12/21/13 Reason for Treatment Cardiac Requires PT Follow Up Yes Assistance Required 1 person Precautions Cardiac Precautions Sternal Other Comments Comments pt willing to participate no new c/o Cognition Overall Cognitive Status WFL Orientation Level Oriented Bed Mobility Supine to Sit Min assist (1 LE OOB) Sit to Supine Min assist (1 LE into bed) Scooting Minimal assist Transfers Sit to/from Stand Standby assist Mobility Ambulation Assistance Standby assist Maximal Ambulation Distance (feet) 150 Total Ambulation Distance (feet) 150 Distance limited by? Patient's ability Pattern Alternating;Decreased karlo Assistive Device Walker front wheeled Activity Tolerance Activity Tolerance Patient limited by fatigue;Patient limited by shortness of breath (SOB) Plan Treatment/Interventions Continue per Primary PT POC Progress Progressing toward goals Recommendation Recommendations Home with daytime assist onver yajaira Transaction, Provider Unknown - 12/21/2013 8:20 AM PDT Progress Notes by Alexandra Martin RN at 12/21/13819 Author: Alexandra Martin RN Service: (none) Author Type: Registered Nurse Filed: 12/21/13821 Date of Service: 12/21/13819 Status: Signed Local Area Network Administrator: Alexandra Martin RN (Registered Nurse) Patient reports that since her surgery, she has been unable to take deep breaths. Patient d enies pain to breath deep, but reports that "it doesn't feel like it is reaching where it ne eds to when I breathe deep." Patient does have occasional dry, nonproductive cough that is p ainful. Patient does splint chest with pillow with all coughing. Patient oxygen 88% on RA. P atient placed back on oxygen at 1 Liter. Will continue to monitor. ALEXANDRA MARTIN RN onver yajaira Transaction, Provider Unknown - 12/20/2013 5:56 PM PDT Progress Notes by Sulaiman Zimmerman RN at 12/20/131755 Author: Sulaiman Zimmerman RN Service: (none) Author Type: Registered Nurse Filed: 12/20/131756 Date of Service: 12/20/131755 Status: Signed Local Area Network Administrator: Sulaiman Zimmerman RN (Registered Nurse) Took over this pt's care at 1730. Teaching was done on CHF exacerbation following recent C ABG. BNP and kidney labs were discussed with pt and family. Pt verbally acknowledged all t eaching and has agreed to call if she needs anything or has any further questions. Sulaiman Cotto [email or web address] 5:57 PM 12/20/2013 atthew Ponce, Provider Unknown - 12/20/2013 12:01 PM PDT Therapy Progress Note by Sulaiman Tapia PTA at 12/20/13 1201 Author: Sulaiman Tapia PTA Service: (none) Author Type: Coil Machine Operator Filed: 12/20/13 1204 Date of Service: 12/20/13 1201 Status: Signed Local Area Network Administrator: Sulaiman Tapia PTA (Coil Machine Operator) 12/20/13 1201 PT Last Visit PT Received On 12/20/13 Reason for Treatment Cardiac Requires PT Follow Up Yes Assistance Required 1 person Precautions Cardiac Precautions Sternal Other Comments Comments pt sitting in chair ready to participate Cognition Overall Cognitive Status WFL Orientation Level Oriented Transfers Sit to/from Stand Standby assist Mobility Ambulation Assistance Standby assist Maximal Ambulation Distance (feet) 150 Total Ambulation Distance (feet) 150 Distance limited by? Patient's ability Pattern Alternating;Decreased karlo Assistive Device Walker front wheeled Activity Tolerance Activity Tolerance Patient limited by fatigue;Patient limited by shortness of breath (SOB) Plan Treatment/Interventions Continue per Primary PT POC Progress Progressing toward goals Recommendation Recommendations Home with daytime assist Rea Diaz MD - 12/20/2013 10:53 AM PDTFormatting of this note might be different from t maddison original. Progress Notes by Rea Khanna MD at 12/20/13 1053 Author: Rea Khanna MD Service: (none) Author Type: Physician Filed: 12/20/13 4911 Date of Service: 12/20/13 1053 Status: Signed Local Area Network Administrator: Rea Khanna MD (Physician) [facility]: Hospitalist Progress Note Hospital Day: LOS: 2 days SUBJECTIVE Patient Summary: 83-year-old female with history of coronary artery disease, diabetes , hypertension, status post bypass on December 09 present to the ED with worsening shortness o f breath. Patient admitted with the congestive heart failure and started on IV Bumex. Events Overnight: Patient states that she feels better. Denies any shortness of breat h. Denies any chest pain, pedal edema is improving Scheduled Medications amiodarone 200 mg Oral Daily aspirin 325 mg Oral Daily with breakfast budesonide 2 puff Inhalation BID bumetanide 1 mg Intravenous Q12H cetirizine 10 mg Oral Daily enoxaparin 30 mg Subcutaneous Q12H insulin aspart 0-3 Units Subcutaneous Nightly insulin aspart 0-6 Units Subcutaneous TID AC levothyroxine 75 mcg Oral QAM AC losartan 25 mg Oral Daily metoprolol 25 mg Oral BID omeprazole 40 mg Oral QAM AC rosuvastatin 5 mg Oral Nightly sodium chloride 10 mL Intravenous Q8H Continuous Infusions dextrose PRN Medications acetaminophen, acetaminophen, dextrose, dextrose, dextrose, glucagon, glucagon, magnesium s ulfate, magnesium sulfate, magnesium sulfate, melatonin, ondansetron, ondansetron, phosphoru s, polyethylene glycol, sodium phosphate IVPB 15 mmol, sodium phosphate IVPB 30 mmol, zolpid em OBJECTIVE Vital Signs: BP 131/73 | Pulse 72 | Temp(Src) 95.8 F (35.4 C) (Oral) | Resp 18 | Ht 1.676 m (5' 5.98 ") | Wt 71.5 kg (157 lb 10.1 oz) | BMI 25.45 kg/m2 | SpO2 95% | ? No Patient Vitals for the past 24 hrs: BP Temp Temp src Pulse Resp SpO2 12/20/13 0811 131/73 mmHg 95.8 F (35.4 C) Oral 72 18 95 % 12/20/13 0351 120/67 mmHg 97.8 F (36.6 C) Oral 65 18 97 % 12/19/13 2341 110/70 mmHg 98.1 F (36.7 C) Oral 62 18 97 % 12/19/132005 111/59 mmHg 97.4 F (36.3 C) Oral 71 18 94 % 12/19/13 1522 101/57 mmHg 97.7 F (36.5 C) Oral 68 18 96 % 12/19/13 1203 112/61 mmHg 98.3 F (36.8 C) Oral 61 20 96 % Intake/Output Summary (Last 24 hours) at 12/20/13 1053 Last data filed at 12/20/13 0954 Gross per 24 hour Intake 1220 ml Output 2250 ml Net -1030 ml Physical Exam: Constitutional: Alert and oriented to person, place, and time. Appears well-developed and w ell-nourished. HEENT: Neck supple, Cardiovascular: Normal rate, regular rhythm, normal heart sounds with S1 and S2, Exam re veals no gallop and no friction rub. One out of 6 systolic murmur heard. No S3, No S4 Pulmonary/Chest: Effort normal and breath sounds decreased bilaterally No stridor. No respi ratory distress. no wheezes. no rales. exhibits no tenderness. Sutures present over the travis rnum. No signs of any discharge Abdominal: Soft. Bowel sounds are normal. exhibits no distension and no mass. There is no t enderness. There is no rebound and no guarding. Extremeties/Musculoskeletal: Normal range of motion.exhibits no tenderness. Bilateral 1+ p edal edema. Neurological: Alert and oriented to person, place, and time. Skin: Skin is warm and dry. Psychiatric: Has a normal mood and affect. DATA Recent Labs Lab 12/20/1345312/19/13 0537 12/18/13 1344 WBC 11.1* 11.2* 14.3* RBC 2.78* 2.64* 2.82* HGB 8.8* 8.4* 9.0* HCT 27.1* 25.2* 27.0* MCV 97.6 95.2 95.5 MCH 31.6 31.9 32.0 MCHC 32.4 33.6 33.5 RDW 49.0 50.3 48.1 PLT 352 341 397 MPV 7.3 7.2 7.1 DIFFTYPE AUTOMATED AUTOMATED AUTOMATED Recent Labs Lab 12/20/1345312/19/13 0537 12/18/13 1344 NA 136 135 139 K 3.5 3.6 4.1 CL 101 102 103 CO2 29 27 24 BUN 20 22 22 CREATININE 0.98 1.26* 1.22* PROT 5.4* 5.4* 6.0* BILITOT 0.4 0.5 0.5 ALT 14 14 20 AST 25 30 37 GLUF 121* 106* 119* Recent Labs Lab 12/18/13 1344 CKTOTAL 65 CKMBINDEX 4.6 Recent Labs Lab 12/20/13 0454 12/19/13 0537 PHOS 3.1 3.5 Recent Labs Lab 12/20/13 0454 12/19/13 0537 12/16/13 0351 MG 1.5* 1.7 1.7 Xr Chest Pa And Lateral 12/18/2013 1. Worsening edema, probably of cardiogenic cause Xr Chest 2 View 12/15/2013 1. Status post removal of the left pleural drain. No evidence of pneumothorax. No other significant change from the prior study. LEM LIST Principal Problem: CHF (congestive heart failure) Active Problems: Essential hypertension, benign DM (diabetes mellitus) Ischemic cardiomyopathy CAD (coronary artery disease) Hyperlipidemia S/P CABG (coronary artery bypass graft) ASSESSMENT & PLAN 1. Acute systolic Congestive heart failure, status post bypass. Continue IV. Bumex Continue losartan and metoprolol. Will try to wean off oxygen. Patient is diuresing well. We will ch viktor chest x-ray in the morning 2. Diabetes. Blood sugars well controlled on sliding scale insulin 3. Hypertension. Blood pressure is well controlled 4. Status post coronary artery bypass surgery. Outpatient follow-up with cardiac thoracic s comfort. Continue aspirin and amiodarone 5. Hypothyroidism. Continue levothyroxine, TSH is elevated. However, working for this withi n normal limits 6. Hyperlipidemia. Continue Crestor 7. DVT prophylaxis. Continue Lovenox 8. Mild anemia. Normocytic normochromic Hemoglobin is stable, most probably related to her surgery 9. Mild leukocytosis no signs of any acute infection 10. Hypomagnesemia, will replenish The plan is been explained in detail to the patient and her . All data was reviewed. Outpatient follow-up with nephrology. Creatinine remains stable. Disposition: Pending inpatient course Code Status: Full Code Rea Khanna MD 12/20/2013 10:53 AM This entry has been created using [employer]uther Speech Recognition software and [employer]. The entry has been reviewed and there may still exist sound alike word errors. onversion Trans action, Provider Unknown - 12/20/2013 10:11 AM PDT Case Management by Izabella Fontanez RN at 12/20/13 1011 Author: Izabella Fontanez RN Service: (none) Author Type: Registered Nurse Filed: 12/20/13 1217 Date of Service: 12/20/13 1011 Status: Addendum Local Area Network Administrator: Izabella Fontanez RN (Registered Nurse) Related Notes: Original Note by Izabella Fontanez RN (Registered Nurse) filed at 12/20/13 [address] Valdes office. Doctor is on vacation until the Dec. They will contact his partner Dr. Green regarding following in Dr. Valdes's absence and call me back. 1206 Home health packet (face to face; face sheet; HP and therapy note) in front of chart . Face to Face needs to be signed. Choice list signed. onver yajaira Transaction, Provider Unknown - 12/19/2013 6:59 PM PDT Nurse Progress Note by Jay Cabello RN at 12/19/13 1859 Author: Jay Cabello RN Service: (none) Author Type: Registered Nurse Filed: 12/19/13 1900 Date of Service: 12/19/13 1859 Status: Signed Local Area Network Administrator: Jay Cabello RN (Registered Nurse) Pt. Has been fairly fatigued throughout shift. has been at bedside for most of paul ft. She mentioned she feels its a little navy material inspector the room and her chest has been itching an d having pain with cough. Gave 650 mg of tylenol. Will continue to monitor. onver yajaira Transaction, Provider Unknown - 12/19/2013 12:48 PM PDT Therapy Progress Note by Bev Castaneda PT at 12/19/13 1248 Author: Bev Castaneda PT Service: (none) Author Type: Physical Therapist Filed: 12/19/13 7459 Date of Service: 12/19/13 1248 Status: Signed Local Area Network Administrator: Bev Castaneda, PT (Physical Therapist) 12/19/13 1248 PT Last Visit PT Received On 12/19/13 Reason for Treatment Other (comment);Cardiac (SOB; CABG on 12/09 at [facility]) Requires PT Follow Up Awaiting tx order Follow up PT Only? No PT Eval/Reassessment Date 12/19/13 Assistance Required 1 person Precautions Cardiac Precautions Sternal Plan Treatment/Interventions Bed mobility training;Balance training;Gait training;Therapeutic ex ercise;Transfer training;Stair training PT Frequency 5-7x/wk;Once per day;Twice a day Care Duration (# of days) 7 # of days Home Environment Type of Home Home one story Home Exterior Layout Rail on R ascending (7 TRAVIS from front and garage; 2 TRAVIS from back but long walk.) Home Interior Layout Lives on main level with bedroom/bathroom Bathroom Shower/Tub Walk-in shower Bathroom Toilet Raised Bathroom Equipment Hand-held shower head Home Equipment Cane single point;Walker 4 wheeled Additional Comments Pt reports that she slept in recliner chair both nights she was home. P t reports getting very anxious since she returned home. No supplemental O2 use at home. Pt r eports that at home she would cough and it would cause her to overheat and break out in a sw eat. Recommendation Recommendations Home with daytime assist;Home PT Equipment Recommended (appears to have equip needs met) Recommendation Comments Pt has excellent support at home from her adult children and her hu jenifer. Although pt continues to have some VIERA, it is greatly improved from yesterday, per pt report. With ongoing management of fluids, expect pt to return home with family. Prior Function Level of [place] Assist with functional mobility;Assist with ADLs;Assist with IADLs (since return home) Lives With Spouse Receives Help From Family ADL Assistance Needs assistance (showering) Employment Retired for age Comments Children live in the area and come in and help. Cognition Overall Cognitive Status WFL Orientation Level Oriented Sensation Light Touch No apparent deficits Perception Inattention/Neglect Appears intact Vision-Basic Assessment Current Vision Wears glasses Assessment of Patient Status Assessment of Patient Status Decreased LE strength;Decreased functional mobility;Decreased ADL status;Precautions;Decreased endurance Prognosis Should progress with skilled therapy intervention Safety Devices Safety Devices in Place (call light in reach; family present) 12/19/13 1248 PT Last Visit PT Received On 12/19/13 Reason for Treatment Other (comment);Cardiac (SOB; CABG on 12/09 at [facility]) Requires PT Follow Up Awaiting tx order Follow up PT Only? No PT Eval/Reassessment Date 12/19/13 Assistance Required 1 person Precautions Cardiac Precautions Sternal Other Comments Comments Pt is an 83 y.o. female who underwent CABG on 12/09 here at [facility]. Pt discharged pauline e 2 days ago and began having SOB and was very limited in her mobility. Patient denied pain and reported that the swelling in her legs has gone down since her arrival here. Pt became SOB with ambulation and took 4 brief standing rest breaks during ambulation of 140 ft. O2 s ats at 94-95% on 3 L O2. Pt subjectively reports she is much less SOB than she was at home. Pt left in supine at end of sessio. BP 113/63 HR 67 bpm O2 94% on 3 L O2. Cognition Overall Cognitive Status WFL Orientation Level Oriented Bed Mobility Sit to Supine Min assist (1 LE into bed) Transfers Sit to/from Stand Minimal assist (steadying/contact guard);Moderate assist (to arise OR low er) (mod from chair; min A from bed) Bed to/from Chair Minimal assist (steadying/contact guard) Mobility Ambulation Assistance Minimal assist;Standby assist Maximal Ambulation Distance (feet) 140 Total Ambulation Distance (feet) 140 Distance limited by? Patient's ability Pattern Alternating;Decreased karlo Assistive Device Walker front wheeled (unable to locate 4WW) Stairs Assistance Minimal assist;Verbal instruction Number of Stairs 5 (performed on aerobic step box) Number of stairs limited by? Therapist/staff discretion Stair Management Technique Step-to Balance Balance (steady with use of walker) Modalities Modalities Other therapy Other Therapy Ed on POC, recommendations, pacing, and breathing techniques. Activity Tolerance Activity Tolerance Patient limited by shortness of breath (SOB) Nurse Made Aware TI Sher Safety Devices Safety Devices in Place (call light in reach; family present) Plan Treatment/Interventions Bed mobility training;Balance training;Gait training;Therapeutic ex ercise;Transfer training;Stair training PT Frequency 5-7x/wk;Once per day;Twice a day Care Duration (# of days) 7 # of days Recommendation Recommendations Home with daytime assist;Home PT Equipment Recommended (appears to have equip needs met) Recommendation Comments Pt has excellent support at home from her adult children and her hu jenifer. Although pt continues to have some VIERA, it is greatly improved from yesterday, per pt report. With ongoing management of fluids, expect pt to return home with family. Barriers to discharge Sternal precautions Physical deficits impacting functional independence- VIERA Self-care deficits impacting functional independence Resolutions to barriers HHPT Patient education Family training- as needed onver yajairamarty Escobedoaction, Provider Unknown - 12/19/2013 12:18 PM PDT Case Management by Izabella Fontanez RN at 12/19/131217 Author: Izabella Fontanez RN Service: (none) Author Type: Registered Nurse Filed: 12/19/13 1223 Date of Service: 12/19/131217 Status: Signed Local Area Network Administrator: Izabella Fontanez RN (Registered Nurse) Spoke with patient, and daughter regarding discharge plans. SNF is not an option f or family. They agree with letting the PT evaluation recommend what is best. They live in [place] so if HH is recommended they would prefer [facility]. Charles Joseph MD - 12/19/2013 9:25 AM PDT Progress Notes by Charles Chopra MD at 12/19/13 6271 Author: Charles Chopra MD Service: Hospitalist Author Type: Physician Filed: 12/19/13 4057 Date of Service: 12/19/13924 Status: Addendum Local Area Network Administrator: Charles Chopra MD (Physician) Related Notes: Original Note by Charles Chopra MD (Physician) filed at 12/19/13 9830 [facility]: Hospitalist Progress Note Hospital Day: LOS: 1 day Post-Op Day: * No surgery found * SUBJECTIVE Patient Summary: Events Overnight: Patient admitted overnight. Currently reports breathing better vick n presentation with diuresis. No chest pain with the exception of that which is likely rela nelly to post CABG discomfort with coughing. No nausea or vomiting or bleeding. Scheduled Medications amiodarone 200 mg Oral Daily aspirin 325 mg Oral Daily with breakfast budesonide 2 puff Inhalation BID bumetanide 1 mg Intravenous Daily cetirizine 10 mg Oral Daily enoxaparin 30 mg Subcutaneous Q12H insulin aspart 0-3 Units Subcutaneous Nightly insulin aspart 0-6 Units Subcutaneous TID AC levothyroxine 75 mcg Oral QAM AC losartan 25 mg Oral Daily metoprolol 25 mg Oral BID omeprazole 40 mg Oral QAM AC rosuvastatin 5 mg Oral Nightly sodium chloride 10 mL Intravenous Q8H Continuous Infusions dextrose PRN Medications acetaminophen, acetaminophen, dextrose, dextrose, dextrose, glucagon, glucagon, magnesium s ulfate, magnesium sulfate, magnesium sulfate, melatonin, ondansetron, ondansetron, phosphoru s, polyethylene glycol, sodium phosphate IVPB 15 mmol, sodium phosphate IVPB 30 mmol, zolpid em OBJECTIVE Vital Signs: BP 101/57 | Pulse 68 | Temp(Src) 97.7 F (36.5 C) (Oral) | Resp 18 | Ht 1.676 m (5' 5.98 ") | Wt 71.5 kg (157 lb 10.1 oz) | BMI 25.45 kg/m2 | SpO2 96% | ? No Temp: [97.6 F (36.4 C)-98.3 F (36.8 C)] 97.7 F (36.5 C) (12/19 1521) BP: (101-134)/(57-72) 101/57 mmHg (12/19 1521) Heart Rate: [61-83] 68 (12/19 1521) Resp: [18-22] 18 (12/19 1521) SpO2: [96 %-97 %] 96 % (12/19 1521) Patient Vitals for the past 24 hrs: BP Temp Temp src Pulse Resp SpO2 Weight 12/19/13 1522 101/57 mmHg 97.7 F (36.5 C) Oral 68 18 96 % - 12/19/13 1203 112/61 mmHg 98.3 F (36.8 C) Oral 61 20 96 % - 12/19/13 0751 129/72 mmHg 98.1 F (36.7 C) Oral 68 20 96 % - 12/19/13 0543 134/68 mmHg 97.6 F (36.4 C) Oral 76 20 96 % - 12/18/13 2343 120/72 mmHg 97.7 F (36.5 C) Oral 76 22 97 % - 12/18/13 2020 124/70 mmHg 98.1 F (36.7 C) Oral 83 18 97 % - Temp (24hrs), Av.9 F (36.6 C), Min:97.6 F (36.4 C), Max:98.3 F (36.8 C) Systolic (24hrs), Av mmHg, Min:101 mmHg, Max:134 mmHg Diastolic (24hrs), Av mmHg, Min:57 mmHg, Max:72 mmHg I&O Current Shift: 12/19 699 - 12/19 1859 In: 220 [P.O.:220] Out: - I&O Yesterday: 12/18 699 - 12/19 0659 In: 470 [P.O.:470] Out: 950 [Urine:950] I&O Last 3 Shifts: 12/17 190 - 12/19 0659 In: 470 [P.O.:470] Out: 950 [Urine:950] Intake/Output Summary (Last 24 hours) at 12/19/13 1745 Last data filed at 12/19/13 1500 Gross per 24 hour Intake 690 ml Output 950 ml Net -260 ml I&O Detailed Table: Physical exam Gen. chronically ill in appearance. To be in no acute distress however notably debilitated and fatigued Neck mild JVD however not to the angle of the jaw Lungs distant throughout scattered faint rales appreciated Heart: 2-6 systolic ejection murmur regular Abdomen positive bowel sounds nontender nondistended soft no rebound tenderness no guarding Lower extremities trace versus 1+ pretibial edema no calf tenderness Psychiatric: Alert and oriented to person place time and situation affect is appropriate gi neyda the situation neuro no gross focal deficits appreciated DATA CBC: Lab Results Component Value Date WBC 11.2* 12/19/2013 RBC 2.64* 12/19/2013 HGB 8.4* 12/19/2013 HGB 7.8* 12/09/2013 HCT 25.2* 12/19/2013 HCT 23* 12/09/2013 MCV 95.2 12/19/2013 MCH 31.9 12/19/2013 MCHC 33.6 12/19/2013 RDW 50.3 12/19/2013 PLT 341 12/19/2013 MPV 7.2 12/19/2013 DIFFTYPE AUTOMATED 12/19/2013 CMP: Lab Results Component Value Date NA 135 12/19/2013 K 3.6 12/19/2013 CL 102 12/19/2013 CO2 27 12/19/2013 ANIONGAP 10 12/19/2013 GLUF 106* 12/19/2013 BUN 22 12/19/2013 CREATININE 1.26* 12/19/2013 BCR 17 12/19/2013 CA 8.0* 12/19/2013 PROT 5.4* 12/19/2013 ALB 3.0* 12/19/2013 GLOB 2.4 12/19/2013 BILITOT 0.5 12/19/2013 ALP 53 12/19/2013 AST 30 12/19/2013 ALT 14 12/19/2013 EGFR 43* 12/19/2013 Albumin: Lab Results Component Value Date ALB 3.0* 12/19/2013 Calcium: No results found for this basename: CALCIUM Ionized Calcium: Lab Results Component Value Date KIANNA 1.25 12/09/2013 PH 7.333 12/09/2013 POCICA 1.07* 12/09/2013 Magnesium: Lab Results Component Value Date MG 1.7 12/19/2013 Phosphorus: Lab Results Component Value Date PHOS 3.5 12/19/2013 LDH: No results found for this basename: LDH Uric Acid: No results found for this basename: URICACID PT/INR: Lab Results Component Value Date INR 1.2 12/18/2013 PTT: Lab Results Component Value Date APTT 25 12/18/2013 [APTT} Troponin: Lab Results Component Value Date TROPONINI 13.3* 12/09/2013 Last 3 Troponin: Lab Results Component Value Date TROPONINI 13.3* 12/09/2013 TROPONINI 8.08* 12/09/2013 TROPONINI <0.02 10/01/2013 CPK: Lab Results Component Value Date CKTOTAL 65 12/18/2013 CKMB: Lab Results Component Value Date CKMB 3.0 12/18/2013 Troponin I: Lab Results Component Value Date TROPONINI 13.3* 12/09/2013 U/A: Lab Results Component Value Date COLORU YELLOW 09/10/2013 CLARITYU CLEAR 12/14/2013 CLARITYU CLEAR 09/10/2013 LEUKOCYTESUR NEGATIVE 12/14/2013 NITRITE NEGATIVE 12/14/2013 NITRITE NEGATIVE 09/10/2013 UROBILINOGEN 0.2 12/14/2013 UROBILINOGEN 0.2 09/10/2013 PHUR 6.0 12/14/2013 PHUR 5.0 09/10/2013 BLOODU LARGE* 12/14/2013 KETONES NEGATIVE 12/14/2013 BILIRUBINUR NEGATIVE 12/14/2013 BILIRUBINUR NEGATIVE 09/10/2013 GLUCOSEU NEGATIVE 12/14/2013 ABG: Lab Results Component Value Date POCPH 7.260* 12/09/2013 POCPCO 45 12/09/2013 POCPO2 109* 12/09/2013 POCHCO 20* 12/09/2013 POCTCO2 21* 12/09/2013 POCBD 7* 12/09/2013 BEART 0 12/09/2013 POCSO2 97 12/09/2013 POCCMT Tidal Volume = 14 12/09/2013 HgBA1c: Lab Results Component Value Date HGBA1C 6.3* 12/10/2013 LABGLYC 134 12/10/2013 TSH: Lab Results Component Value Date TSH 2.29 09/22/2013 VITAMIN B12: No results found for this basename: [id number] FOLATE: No results found for this basename: FOLATE IRON: No results found for this basename: IRON TIBC: No results found for this basename: IRON, TIBC, LABIRON, UIBC FERRITIN: No results found for this basename: FERRITIN Amylase: No results found for this basename: AMYLASE Lipase: No results found for this basename: LIPASE Impression 1. LV dimensions NML, global hypokinesis, LVEF 25-30%. LV false tendon. When compared to Echo 09/15/2013, there appears to be slight improvment in LVEF. 2. LA/RA NML. RV dimensions NML, systolic funciton impaired. 3. Mild MR, mild AI. 4. No Pericardial effusion. Echo cardiac adult limited Status: Final result Study Result Patient Name: TAMIKO IRELAND Date of : 1930 Performing Physician: Thomas Bynum MD INDICATIONS RECENT CABG 12/09 EVAL LV FUNCTION, LIMITED EXAM CONCLUSIONS 1. LV dimensions NML, global hypokinesis, LVEF 25-30%. LV false tendon. When compared to Echo 09/15/2013, there appears to be slight improvment in LVEF. 2. LA/RA NML. RV dimensions NML, systolic funciton impaired. 3. Mild MR, mild AI. 4. No Pericardial effusion. FINDINGS -------- [no group]: Severe segmental LV dysfunction with EF 20-30%. ECG rhythm: Paced rhythm. Study: A limited 2-dimensional transthoracic echocardiogram with limited spectral and color flow Doppler was performed. Study: This was a technically adequate study. Left Ventricle: Overall left ventricular systolic function is severely impaired with, an EF between 25 - 30 %. Paint Process Engineer: DAIJA Authenticated by: Thomas Bynum MD Report Date/Time: 12-13-2013 14:41:28 IMPRESSION: 1. LV dimensions NML, global hypokinesis, LVEF 25-30%. LV false tendon. When compared to Echo 09/15/2013, there appears to be slight improvment in LVEF. 2. LA/RA NML. RV dimensions NML, systolic funciton impaired. 3. Mild MR, mild AI. 4. No Pericardial effusion. PROBLEM LIST Principal Problem: CHF (congestive heart failure) Active Problems: Essential hypertension, benign DM (diabetes mellitus) Ischemic cardiomyopathy CAD (coronary artery disease) Hyperlipidemia S/P CABG (coronary artery bypass graft) ASSESSMENT & PLAN CHF (congestive heart failure) (09/10/2013) Assessment: Suspect acute decompensation of chronic systolic dysfunction. Status post re cent CABG with recent discharge. Patient's seems to be reporting some mild improvement from admission currently diuresing. She is on Bumex as reportedly Has allergyto Lasix. Contin ue with diuretics however will increase the Bumex to 1 mg IV twice a day from daily presentl y and follow. Follow renal function and hemodynamics. Follow electrolytes as well. CT [facility] is aware of the patient being care I spoke with the PA working with Dr. Celis . No formal consultation initiated at this point. Patient also on losartan Essential hypertension, benign (09/10/2013) Assessment: Continue current regimen for now and follow. DM (diabetes mellitus) (09/10/2013) Assessment: Blood sugar is not elevated at home patient reportedly takes preprandial 4 un its of insulin. Nursing staff contacted me stating that the patient will alter this dose de pending on her blood sugars suggesting that sliding scale would be a better fit. I disconti nued the preprandial insulin and placed on a low-dose sliding scale for now. Ischemic cardiomyopathy (09/13/2013) Assessment: As above. CAD (coronary artery disease) (09/13/2013) Assessment: Status post CABG. We'll continue with aspirin and statin beta homar Hyperlipidemia (10/06/2013) Assessment: Continue statin S/P CABG (coronary artery bypass graft) (12/19/2013) Assessment: CT surgery aware. Patient to continue the discharge medications as per the p rinted note that they have from discharge. to include amiodarone metoprolol losartan area Disposition: Acute care pending progress. Code Status: Full Code CHARLES CHOPRA MD 12/19/2013 enee Haile RPH - 12/18/2013 4:47 PM PDT Progress Notes by Renee Haile RPH at 12/18/131646 Author: Renee Haile RPH Service: (none) Author Type: Pharmacist Filed: 12/18/131646 Date of Service: 12/18/131646 Status: Signed Local Area Network Administrator: Renee Haile RPH (Pharmacist) Clinical Pharmacy Note - Renal Dose Adjustment Tamiko Ireland 83 y.o. female Ht Readings from Last 1 Encounters: 12/18/13 1.676 m (5' 5.98") Wt Readings from Last 1 Encounters: 12/18/13 70.308 kg (155 lb) CREATININE Date Value Range Status 12/18/2013 1.22* 0.50 - 1.00 mg/dL Final Testing performed at [facility];[address];[place] [address] CREATININE: 1.22 mg/dL ABNORMAL (12/18/13 1344) Estimated creatinine clearance - 33.3 mL/min Pharmacy to renally adjust medications per Dr. Shook Plan: No current medications require renal dose adjustment based on patient's current estim ated Crcl. Pharmacy will continue to follow and adjust as appropriate. Pharmacist: Renee Haile 12/18/2013 4:47 PM onversio n Transaction, Provider Unknown - 12/18/2013 3:20 PM PDTFormatting of this note might be di fferent from the original. Case Management by JAIMEE Rodriguez at 12/18/13 1520 Author: JAIMEE Rodriguez Service: (none) Author Type: Tire Manager Filed: 12/18/13 1530 Date of Service: 12/18/13 1520 Status: Addendum Local Area Network Administrator: JAIMEE Rodriguez (Tire Manager) Related Notes: Original Note by JAIMEE Rodriguez (Tire Manager) filed at 12/18/13 1529 12/18/13 1518 Discharge Planning Evaluation Admitting Diagnosis Pulmonary Edema Readmission Yes-within 14 days Living Arrangements Spouse/significant other (Alfredo Beka [phone]) Support Systems Children (Josiane, two daughters) Type of Residence Private residence Support Systems Children (Geno Kendall ) Type of Residence Private residence House type House-1 story Steps to enter 7 Independent with ADL's Yes (in the last three months, needed assistance) Independent with Mobility Yes (owns a 4WW) Home Care Services No Mental Status Oriented Resources Transportation issues No Prescription Plan Yes (Medicare Part D) Name of Pharmacy [facility] in [place] Previous home health equipment No Vascular access device No Ostomy/Drains/Appliances Hx of (Defibrillator Vest) Anticipated Disposition Facility Type group home facility;Other (Comment) (if well enought, she can return home) Detention Facility Other (comment) ([facility] [place]) Met with: patient, her and daughter and discussed discharge planning, Pt is a 83 y. o., female who decided not to go to rehab after her surgery. Patient reports CABG 10 days a go, patient reports she was just discharged from the hospital 2 days ago and developed short ness of breath and fatigue at home. Patient went to [facility] in [place] and was transferred here. [address] Celis. Patient's PCP is: JORGE VALDES Patient's insurance: Medicare IP-OP and [employer] Coverage concerns: No current concerns Medication coverage/concerns: Rx coverage [facility] Bedside Delivery: No Community resources utilized / needed: TBD Assistance in transportation: Spouse and/or family member Identification of any specific education / training: TBD Barriers to Discharge / Alternative housing needed: could be considering a SNF in [place] Anticipated DCP: SNF or Return home with HH docume nted in this encounter Plan of Treatment +--------+ + + + + | Date | Type | Specialty | Care Team | Description | +--------+ + + + + | 03/09/ | Office | Cardiology | [place], | | | 2018 | Visit | | MD Lucila WIGGINS | | | | | | [place], [place] | | | | | | [address] | | | | | | | [...] [place] | | | | | | [address] | | | | | | | | +--------+ + + + + documented as of this encounter Procedures + +--------+ + + + | Procedure Name | Priori | Date/Time | Associated Diagnosis | Comments | | | ty | | | | + +--------+ + + + | POC GLUCOSE | Routin | 12/22/2013 | | Results for this | | | e | 10:53 AM | | procedure are in the | | | | PDT | | results section. | + +--------+ + + + | POC GLUCOSE | Routin | 12/22/2013 | | Results for this | | | e | 5:32 AM | | procedure are in the | | | | PDT | | results section. | + +--------+ + + + | EXTERNAL LAB: CBC | Routin | 12/22/2013 | | Results for this | | | e | 4:50 AM | | procedure are in the | | | | PDT | | results section. | + +--------+ + + + | MAGNESIUM | Routin | 12/22/2013 | | Results for this | | | e | 4:50 AM | | procedure are in the | | | | PDT | | results section. | + +--------+ + + + | RENAL FUNCTION PANEL | Routin | 12/22/2013 | | Results for this | | | e | 4:50 AM | | procedure are in the | | | | PDT | | results section. | + +--------+ + + + | POC GLUCOSE | Routin | 12/21/2013 | | Results for this | | | e | 9:18 PM | | procedure are in the | | | | PDT | | results section. | + +--------+ + + + | MAGNESIUM | Routin | 12/21/2013 | | Results for this | | | e | 7:09 PM | | procedure are in the | | | | PDT | | results section. | + +--------+ + + + | POC GLUCOSE | Routin | 12/21/2013 | | Results for this | | | e | 5:42 PM | | procedure are in the | | | | PDT | | results section. | + +--------+ + + + | MAGNESIUM | Routin | 12/21/2013 | | Results for this | | | e | 12:40 PM | | procedure are in the | | | | PDT | | results section. | + +--------+ + + + | POC GLUCOSE | Routin | 12/21/2013 | | Results for this | | | e | 11:30 AM | | procedure are in the | | | | PDT | | results section. | + +--------+ + + + | XR CHEST 1 VIEW | Routin | 12/21/2013 | | Results for this | | | e | 6:17 AM | | procedure are in the | | | | PDT | | results section. | + +--------+ + + + | POC GLUCOSE | Routin | 12/21/2013 | | Results for this | | | e | 5:24 AM | | procedure are in the | | | | PDT | | results section. | + +--------+ + + + | EXTERNAL LAB: CBC | Routin | 12/21/2013 | | Results for this | | | e | 5:04 AM | | procedure are in the | | | | PDT | | results section. | + +--------+ + + + | PHOSPHORUS | Routin | 12/21/2013 | | Results for this | | | e | 5:04 AM | | procedure are in the | | | | PDT | | results section. | + +--------+ + + + | MAGNESIUM | Routin | 12/21/2013 | | Results for this | | | e | 5:04 AM | | procedure are in the | | | | PDT | | results section. | + +--------+ + + + | BASIC METABOLIC | Routin | 12/21/2013 | | Results for this | | PANEL | e | 5:04 AM | | procedure are in the | | | | PDT | | results section. | + +--------+ + + + | POC GLUCOSE | Routin | 12/20/2013 | | Results for this | | | e | 9:10 PM | | procedure are in the | | | | PDT | | results section. | + +--------+ + + + | POC GLUCOSE | Routin | 12/20/2013 | | Results for this | | | e | 4:18 PM | | procedure are in the | | | | PDT | | results section. | + +--------+ + + + | POC GLUCOSE | Routin | 12/20/2013 | | Results for this | | | e | 12:10 PM | | procedure are in the | | | | PDT | | results section. | + +--------+ + + + | POC GLUCOSE | Routin | 12/20/2013 | | Results for this | | | e | 5:09 AM | | procedure are in the | | | | PDT | | results section. | + +--------+ + + + | EXTERNAL LAB: CBC | Routin | 12/20/2013 | | Results for this | | | e | 4:54 AM | | procedure are in the | | | | PDT | | results section. | + +--------+ + + + | TSH | Routin | 12/20/2013 | | Results for this | | | e | 4:54 AM | | procedure are in the | | | | PDT | | results section. | + +--------+ + + + | T4, FREE | Routin | 12/20/2013 | | Results for this | | | e | 4:54 AM | | procedure are in the | | | | PDT | | results section. | + +--------+ + + + | PHOSPHORUS | Routin | 12/20/2013 | | Results for this | | | e | 4:54 AM | | procedure are in the | | | | PDT | | results section. | + +--------+ + + + | B TYPE NATRIURETIC | Routin | 12/20/2013 | | Results for this | | PEPTIDE | e | 4:54 AM | | procedure are in the | | | | PDT | | results section. | + +--------+ + + + | MAGNESIUM | Routin | 12/20/2013 | | Results for this | | | e | 4:54 AM | | procedure are in the | | | | PDT | | results section. | + +--------+ + + + | BILIRUBIN, DIRECT | Routin | 12/20/2013 | | Results for this | | | e | 4:54 AM | | procedure are in the | | | | PDT | | results section. | + +--------+ + + + | COMPREHENSIVE | Routin | 12/20/2013 | | Results for this | | METABOLIC PANEL | e | 4:54 AM | | procedure are in the | | | | PDT | | results section. | + +--------+ + + + | POC GLUCOSE | Routin | 12/19/2013 | | Results for this | | | e | 9:36 PM | | procedure are in the | | | | PDT | | results section. | + +--------+ + + + | POC GLUCOSE | Routin | 12/19/2013 | | Results for this | | | e | 4:27 PM | | procedure are in the | | | | PDT | | results section. | + +--------+ + + + | POC GLUCOSE | Routin | 12/19/2013 | | Results for this | | | e | 12:02 PM | | procedure are in the | | | | PDT | | results section. | + +--------+ + + + | POC GLUCOSE | Routin | 12/19/2013 | | Results for this | | | e | 5:42 AM | | procedure are in the | | | | PDT | | results section. | + +--------+ + + + | EXTERNAL LAB: CBC | Routin | 12/19/2013 | | Results for this | | | e | 5:37 AM | | procedure are in the | | | | PDT | | results section. | + +--------+ + + + | PHOSPHORUS | Routin | 12/19/2013 | | Results for this | | | e | 5:37 AM | | procedure are in the | | | | PDT | | results section. | + +--------+ + + + | B TYPE NATRIURETIC | Routin | 12/19/2013 | | Results for this | | PEPTIDE | e | 5:37 AM | | procedure are in the | | | | PDT | | results section. | + +--------+ + + + | MAGNESIUM | Routin | 12/19/2013 | | Results for this | | | e | 5:37 AM | | procedure are in the | | | | PDT | | results section. | + +--------+ + + + | COMPREHENSIVE | Routin | 12/19/2013 | | Results for this | | METABOLIC PANEL | e | 5:37 AM | | procedure are in the | | | | PDT | | results section. | + +--------+ + + + | POC GLUCOSE | Routin | 12/18/2013 | | Results for this | | | e | 9:29 PM | | procedure are in the | | | | PDT | | results section. | + +--------+ + + + | POC GLUCOSE | Routin | 12/18/2013 | | Results for this | | | e | 4:35 PM | | procedure are in the | | | | PDT | | results section. | + +--------+ + + + | XR CHEST 2 VIEWS | Routin | 12/18/2013 | | Results for this | | | e | 1:56 PM | | procedure are in the | | | | PDT | | results section. | + +--------+ + + + | HISTORICAL LAB PANEL | Routin | 12/18/2013 | | Results for this | | RESULT | e | 1:44 PM | | procedure are in the | | | | PDT | | results section. | + +--------+ + + + | B TYPE NATRIURETIC | Routin | 12/18/2013 | | Results for this | | PEPTIDE | e | 1:44 PM | | procedure are in the | | | | PDT | | results section. | + +--------+ + + + documented in this encounter Results POC Glucose (12/22/2013 10:53 AM PDT) + + + + + + | Component | Value | Ref Range | Performed | Pathologist | | | | | At | Signature | + + + + + + | Glucose, | 142 (H)Comment: Testing | 65 - 99 mg/dL | EXTERNAL | | | Fingerstick | performed at [facility];[address] | | LAB | | | | [address];[place] | | | | | | [address] | | | | + + + + + + + + | Specimen | + + | | + + + +---------+ + + | Performing | Address | City/State/Zipcode | Phone Number | | Organization | | | | + +---------+ + + | EXTERNAL LAB | | | | + +---------+ + + POC Glucose (12/22/2013 5:32 AM PDT) + + + + + + | Component | Value | Ref Range | Performed | Pathologist | | | | | At | Signature | + + + + + + | Glucose, | 134 (H)Comment: Testing | 65 - 99 mg/dL | EXTERNAL | | | Fingerstick | performed at [facility];[address] | | LAB | | | | [address];[place], [place] | | | | | | [address] | | | | + + + + + + + + | Specimen | + + | | + + + +---------+ + + | Performing | Address | City/State/Zipcode | Phone Number | | Organization | | | | + +---------+ + + | EXTERNAL LAB | | | | + +---------+ + + External Lab: CBC (12/22/2013 4:50 AM PDT) + + + + + + | Component | Value | Ref Range | Performed | Pathologist | | | | | At | Signature | + + + + + + | WBC | 11.3 (H)Comment: Testing | 3.8 - 11.0 K/uL | EXTERNAL | | | | performed at [facility], [address] | | LAB | | | | [address], | | | | | | [place] [address] | | | | + + + + + + | RED CELL | 2.99 (L)Comment: Testing | 3.70 - 5.10 | EXTERNAL | | | COUNT | performed at [facility], [address] | M/uL | LAB | | | | [address], | | | | | | [place] [address] | | | | + + + + + + | Hgb | 9.2 (L)Comment: Testing | 11.3 - 15.5 | EXTERNAL | | | | performed at [facility], [address] | g/dL | LAB | | | | [address], | | | | | | [place] [address] | | | | + + + + + + | Hematocrit, | 29.2 (L)Comment: Testing | 34.0 - 46.0 % | EXTERNAL | | | POC | performed at [facility], [address] | | LAB | | | | [address], | | | | | | [place] [address] | | | | + + + + + + | MCV | 97.4Comment: Testing | 80.0 - 100.0 fl | EXTERNAL | | | | performed at [facility], [address] | | LAB | | | | [address], | | | | | | [place] [address] | | | | + + + + + + | MCH | 30.8Comment: Testing | 27.0 - 34.0 pg | EXTERNAL | | | | performed at [facility], [address] | | LAB | | | | [address], | | | | | | [place] [address] | | | | + + + + + + | MCHC | 31.6 (L)Comment: Testing | 32.0 - 35.5 | EXTERNAL | | | | performed at [facility], [address] | g/dL | LAB | | | | [address], | | | | | | [place] [address] | | | | + + + + + + | RDW-CV | 50.3Comment: Testing | 37 - 53 fl | EXTERNAL | | | | performed at [facility], [address] | | LAB | | | | [address], | | | | | | [place] [address] | | | | + + + + + + | Platelet | 405 (H)Comment: Testing | 150 - 400 K/uL | EXTERNAL | | | Count | performed at [facility], [address] | | LAB | | | Plasma | [address], | | | | | | [place] [address] | | | | + + + + + + | MPV | 7.3Comment: Testing | fl | EXTERNAL | | | | performed at [facility], [address] | | LAB | | | | [address], | | | | | | [place] [address] | | | | + + + + + + | Differentia | AUTOMATEDComment: | | EXTERNAL | | | l Type | Testing performed at | | LAB | | | | [facility], [address] | | | | | | [address], [place] | | | | | | [address] | | | | + + + + + + | % Segmented | 66.7Comment: Testing | % | EXTERNAL | | | | performed at [facility], [address] | | LAB | | | Neutrophils | [address], | | | | | | [place] [address] | | | | + + + + + + | % | 20.9Comment: Testing | % | EXTERNAL | | | Lymphocytes | performed at [facility], [address] | | LAB | | | | [address], | | | | | | [place] [address] | | | | + + + + + + | % Monocytes | 7.7Comment: Testing | % | EXTERNAL | | | | performed at [facility], [address] | | LAB | | | | [address], | | | | | | [place] [address] | | | | + + + + + + | % | 4.0Comment: Testing | % | EXTERNAL | | | Eosinophils | performed at [facility], [address] | | LAB | | | | [address], | | | | | | [place] [address] | | | | + + + + + + | % Basophils | 0.7Comment: Testing | % | EXTERNAL | | | | performed at [facility], [address] | | LAB | | | | [address], | | | | | | [place] [address] | | | | + + + + + + | Absolute | 7.5 (H)Comment: Testing | 1.9 - 7.4 K/uL | EXTERNAL | | | Segmented | performed at [facility], [address] | | LAB | | | Neutrophils | [address], | | | | | | [place] [address] | | | | + + + + + + | Absolute | 2.4Comment: Testing | 1.0 - 3.9 K/uL | EXTERNAL | | | Lymphocytes | performed at [facility], [address] | | LAB | | | | [address], | | | | | | [place] [address] | | | | + + + + + + | Absolute | 0.9 (H)Comment: Testing | 0 - 0.8 K/uL | EXTERNAL | | | Monocytes | performed at [facility], [address] | | LAB | | | | [address], | | | | | | [place] [address] | | | | + + + + + + | Absolute | 0.5Comment: Testing | 0 - 0.5 K/uL | EXTERNAL | | | Eosinophils | performed at [facility], [address] | | LAB | | | | [address], | | | | | | [place] [address] | | | | + + + + + + | Absolute | 0.1Comment: Testing | 0 - 0.1 K/uL | EXTERNAL | | | Basophils | performed at [facility], [address] | | LAB | | | | [address], | | | | | | [place] [address] | | | | + + + + + + + + | Specimen | + + | Blood specimen | | (specimen) | + + + +---------+ + + | Performing | Address | City/State/Zipcode | Phone Number | | Organization | | | | + +---------+ + + | EXTERNAL LAB | | | | + +---------+ + + Magnesium (12/22/2013 4:50 AM PDT) + + + + + + | Component | Value | Ref Range | Performed | Pathologist | | | | | At | Signature | + + + + + + | Magnesium | 1.6 (L)Comment: Testing | 1.7 - 2.4 mg/dL | EXTERNAL | | | | performed at [facility], [address] | | LAB | | | | [address], | | | | | | [place] [address] | | | | + + + [...] + +---------+ + + Renal Function Panel (12/22/2013 4:50 AM PDT) + + + + + + | Component | Value | Ref Range | Performed | Pathologist | | | | | At | Signature | + + + + + + | Na | 138Comment: Testing | 135 - 143 | EXTERNAL | | | | performed at [facility], [address] | mmol/L | LAB | | | | [address], | | | | | | [place] [address] | | | | + + + + + + | K | 3.2 (L)Comment: Testing | 3.5 - 4.9 | EXTERNAL | | | | performed at [facility], [address] | mmol/L | LAB | | | | [address], | | | | | | [place] [address] | | | | + + + + + + | Cl | 98 (L)Comment: Testing | 99 - 109 mmol/L | EXTERNAL | | | | performed at [facility], [address] | | LAB | | | | [address], | | | | | | [place] [address] | | | | + + + + + + | CO2 | 33 (H)Comment: Testing | 23 - 32 mmol/L | EXTERNAL | | | | performed at [facility], [address] | | LAB | | | | [address], | | | | | | [place] [address] | | | | + + + + + + | Anion Gap | 10Comment: Testing | 5 - 20 mmol/L | EXTERNAL | | | | performed at [facility], [address] | | LAB | | | | [address], | | | | | | [place] [address] | | | | + + + + + + | Glucose, | 125 (H)Comment: Testing | 65 - 99 mg/dL | EXTERNAL | | | Fasting | performed at [facility], [address] | | LAB | | | | [address], | | | | | | [place] [address] | | | | + + + + + + | BUN | 14Comment: Testing | 8 - 25 mg/dL | EXTERNAL | | | | performed at [facility], [address] | | LAB | | | | [address], | | | | | | [place] [address] | | | | + + + + + + | Creatinine | 0.89Comment: Testing | 0.50 - 1.00 | EXTERNAL | | | | performed at [facility], [address] | mg/dL | LAB | | | | [address], | | | | | | [place] [address] | | | | + + + + + + | Calcium | 8.5Comment: Testing | 8.5 - 10.2 | EXTERNAL | | | | performed at [facility], [address] | mg/dL | LAB | | | | [address], | | | | | | [place] [address] | | | | + + + + + + | Albumin | 3.1 (L)Comment: Testing | 3.3 - 4.8 g/dL | EXTERNAL | | | | performed at [facility], [address] | | LAB | | | | [address], | | | | | | [place] [address] | | | | + + + + + + | PHOSPHORUS | 2.9Comment: Testing | 2.3 - 4.8 mg/dL | EXTERNAL | | | | performed at [facility], [address] | | LAB | | | | [address], | | | | | | [place] [address] | | | | + + + + + + | Estimated | >60Comment: GFR <60: | mL/min/1.73m2 | EXTERNAL | | | GFR | CHRONIC KIDNEY DISEASE, | | LAB | | | | IF FOUND OVER A 3 MONTH | | | | | | PERIOD.GFR <15: KIDNEY | | | | | | FAILURE.FOR | | | | | | AMERICANS, MULTIPLY THE | | | | | | CALCULATED GFR BY | | | | | | 1.210.Testing performed | | | | | | at [facility], [address] | | | | | | [address], | | | | | | [place] [address] | | | | + + + + + + + + | Specimen | + + | | + + + +---------+ + + | Performing | Address | City/State/Zipcode | Phone Number | | Organization | | | | + +---------+ + + | EXTERNAL LAB | | | | + +---------+ + + POC Glucose (12/21/2013 9:18 PM PDT) + + + + + + | Component | Value | Ref Range | Performed | Pathologist | | | | | At | Signature | + + + + + + | Glucose, | 152 (H)Comment: Testing | 65 - 99 mg/dL | EXTERNAL | | | Fingerstick | performed at [facility];[address] | | LAB | | | | [address];[place] | | | | | | [address] | | | | + + + + + + + + | Specimen | + + | | + + + +---------+ + + | Performing | Address | City/State/Zipcode | Phone Number | | Organization | | | | + +---------+ + + | EXTERNAL LAB | | | | + +---------+ + + Magnesium (12/21/2013 7:09 PM PDT) + + + + + + | Component | Value | Ref Range | Performed | Pathologist | | | | | At | Signature | + + + + + + | Magnesium | 1.9Comment: Testing | 1.7 - 2.4 mg/dL | EXTERNAL | | | | performed at [facility], [address] | | LAB | | | | [address], | | | | | | [place] [address] | | | | + + + + + + + + | Specimen | + + | Blood specimen | | (specimen) | + + + +---------+ + + | Performing | Address | City/State/Zipcode | Phone Number | | Organization | | | | + +---------+ + + | EXTERNAL LAB | | | | + +---------+ + + POC Glucose (12/21/2013 5:42 PM PDT) + + + + + + | Component | Value | Ref Range | Performed | Pathologist | | | | | At | Signature | + + + + + + | Glucose, | 117 (H)Comment: Testing | 65 - 99 mg/dL | EXTERNAL | | | Fingerstick | performed at [facility];[address] | | LAB | | | | [address];[place] | | | | | | [address] | | | | + + + + + + + + | Specimen | + + | | + + + +---------+ + + | Performing | Address | City/State/Zipcode | Phone Number | | Organization | | | | + +---------+ + + | EXTERNAL LAB | | | | + +---------+ + + Magnesium (12/21/2013 12:40 PM PDT) + + + + + + | Component | Value | Ref Range | Performed | Pathologist | | | | | At | Signature | + + + + + + | Magnesium | 1.6 (L)Comment: Testing | 1.7 - 2.4 mg/dL | EXTERNAL | | | | performed at [facility];[address] | | LAB | | | | [address];[place], [place] | | | | | | [address] | | | | + + + + + + + + | Specimen | + + | Blood specimen | | (specimen) | + + + +---------+ + + | Performing | Address | City/State/Zipcode | Phone Number | | Organization | | | | + +---------+ + + | EXTERNAL LAB | | | | + +---------+ + + POC Glucose (12/21/2013 11:30 AM PDT) + + + + + + | Component | Value | Ref Range | Performed | Pathologist | | | | | At | Signature | + + + + + + | Glucose, | 155 (H)Comment: Testing | 65 - 99 mg/dL | EXTERNAL | | | Fingerstick | performed at [facility];[address] | | LAB | | | | [address];[place] | | | | | | [address] | | | | + + + + + + + + | Specimen | + + | | + + + +---------+ + + | Performing | Address | City/State/Zipcode | Phone Number | | Organization | | | | + +---------+ + + | EXTERNAL LAB | | | | + +---------+ + + XR Chest 1 Vw (12/21/2013 6:17 AM PDT) + + | Specimen | + + | | + + + + + | Impressions | Performed At | + + + | 1. Moderate cardiac enlargement, with improving CHF and pulmonary | | | edema. 2. Decreasing left greater than right basilar atelectasis, | | | with persistent small left and minimal right effusions. 3. I cannot | | | exclude an underlying element of chronic interstitial change. | | | Progress evaluation for clearing is recommended. Electronically | | | signed by Yosef Ruelas MD on 12/21/2013 7:52 AM | | + + + + + + | Narrative | Performed At | + + + | HISTORY: Shortness of breath. COMPARISON: 12/18/13. | | | TECHNIQUE: Portable AP upright film the chest at 0609 hrs. | | | FINDINGS: Persistent moderate cardiac enlargement post median | | | sternotomy. Improvement of pulmonary venous congestion. Residual | | | reticular interstitial prominence in both lung smith. Small bibasilar | | | effusions. Left greater than right basilar atelectasis. | | + + + + + | Procedure Note | + + | César Hawkins Conversion - 11/26/2018 3:41 PM PDT HISTORY:Shortness of breath. | | COMPARISON:12/18/13. TECHNIQUE:Portable AP upright film the chest at 0609 hrs. | | FINDINGS:Persistent moderate cardiac enlargement post median sternotomy. Improvement of | | pulmonary venous congestion. Residual reticular interstitial prominence in both lung | | smith. Small bibasilar effusions. Left greater than right basilar atelectasis. | | IMPRESSION: 1. Moderate cardiac enlargement, with improving CHF and pulmonary edema.2. | | Decreasing left greater than right basilar atelectasis, with persistent small left and | | minimal right effusions.3. I cannot exclude an underlying element of chronic | | interstitial change. Progress evaluation for clearing is recommended. Electronically | | signed by Yosef Ruelas MD on 12/21/2013 7:52 AM | |Persistent moderate cardiac enlargement post median sternotomy. Improvement of pulmonary ve nous congestion. Residual reticular interstitial prominence in both lung smith. Small bibas ilar effusions. Left greater than right basilar atelectasis. | | | |IMPRESSION: | |1. Moderate cardiac enlargement, with improving CHF and pulmonary edema. | |2. Decreasing left greater than right basilar atelectasis, with persistent small left and minimal right effusions. | |3. I cannot exclude an underlying element of chronic interstitial change. Progress evaluat ion for clearing is recommended. | | | | | + + POC Glucose (12/21/2013 5:24 AM PDT) + + + + + + | Component | Value | Ref Range | Performed | Pathologist | | | | | At | Signature | + + + + + + | Glucose, | 108 (H)Comment: Testing | 65 - 99 mg/dL | EXTERNAL | | | Fingerstick | performed at [facility];[address] | | LAB | | | | [address];[place] | | | | | | [address] | | | | + + + + + + + + | Specimen | + + | | + + + +---------+ + + | Performing | Address | City/State/Zipcode | Phone Number | | Organization | | | | + +---------+ + + | EXTERNAL LAB | | | | + +---------+ + + External Lab: CBC (12/21/2013 5:04 AM PDT) + + + + + + | Component | Value | Ref Range | Performed | Pathologist | | | | | At | Signature | + + + + + + | WBC | 10.1Comment: Testing | 3.8 - 11.0 K/uL | EXTERNAL | | | | performed at [facility], [address] | | LAB | | | | [address], | | | | | | [place] [address] | | | | + + + + + + | RED CELL | 2.79 (L)Comment: Testing | 3.70 - 5.10 | EXTERNAL | | | COUNT | performed at [facility], [address] | M/uL | LAB | | | | [address], | | | | | | [place] [address] | | | | + + + + + + | Hgb | 8.9 (L)Comment: Testing | 11.3 - 15.5 | EXTERNAL | | | | performed at [facility], [address] | g/dL | LAB | | | | [address], | | | | | | [place] [address] | | | | + + + + + + | Hematocrit, | 27.0 (L)Comment: Testing | 34.0 - 46.0 % | EXTERNAL | | | POC | performed at [facility], [address] | | LAB | | | | [address], | | | | | | [place] [address] | | | | + + + + + + | MCV | 97.0Comment: Testing | 80.0 - 100.0 fl | EXTERNAL | | | | performed at [facility], [address] | | LAB | | | | [address], | | | | | | [place] [address] | | | | + + + + + + | MCH | 32.0Comment: Testing | 27.0 - 34.0 pg | EXTERNAL | | | | performed at [facility], [address] | | LAB | | | | [address], | | | | | | [place] [address] | | | | + + + + + + | MCHC | 32.9Comment: Testing | 32.0 - 35.5 | EXTERNAL | | | | performed at [facility], [address] | g/dL | LAB | | | | [address], | | | | | | [place] [address] | | | | + + + + + + | RDW-CV | 50.3Comment: Testing | 37 - 53 fl | EXTERNAL | | | | performed at [facility], [address] | | LAB | | | | [address], | | | | | | [place] [address] | | | | + + + + + + | Platelet | 363Comment: Testing | 150 - 400 K/uL | EXTERNAL | | | Count | performed at [facility], [address] | | LAB | | | Plasma | [address], | | | | | | [place] [address] | | | | + + + + + + | MPV | 7.3Comment: Testing | fl | EXTERNAL | | | | performed at [facility], [address] | | LAB | | | | [address], | | | | | | [place] [address] | | | | + + + + + + | Differentia | AUTOMATEDComment: | | EXTERNAL | | | l Type | Testing performed at | | LAB | | | | [facility], [address] | | | | | | [place] | | | | | | [address] | | | | + + + + + + | % Segmented | 66.8Comment: Testing | % | EXTERNAL | | | | performed at [facility], [address] | | LAB | | | Neutrophils | [address], | | | | | | [place] [address] | | | | + + + + + + | % | 20.2Comment: Testing | % | EXTERNAL | | | Lymphocytes | performed at [facility], [address] | | LAB | | | | [address], | | | | | | [place] [address] | | | | + + + + + + | % Monocytes | 7.8Comment: Testing | % | EXTERNAL | | | | performed at [facility], [address] | | LAB | | | | [address], | | | | | | [place] [address] | | | | + + + + + + | % | 4.4Comment: Testing | % | EXTERNAL | | | Eosinophils | performed at [facility], [address] | | LAB | | | [address], | | | | | | [place] [address] | | | | + + + + + + | % Basophils | 0.8Comment: Testing | % | EXTERNAL | | | | performed at [facility], [address] | | LAB | | | | [address], | | | | | | [place] [address] | | | | + + + + + + | Absolute | 6.7Comment: Testing | 1.9 - 7.4 K/uL | EXTERNAL | | | Segmented | performed at [facility], [address] | | LAB | | | Neutrophils | [address], | | | | | | [place] [address] | | | | + + + + + + | Absolute | 2.0Comment: Testing | 1.0 - 3.9 K/uL | EXTERNAL | | | Lymphocytes | performed at [facility], [address] | | LAB | | | | [address], | | | | | | [place] [address] | | | | + + + + + + | Absolute | 0.8Comment: Testing | 0 - 0.8 K/uL | EXTERNAL | | | Monocytes | performed at [facility], [address] | | LAB | | | | [address], | | | | | | [place] [address] | | | | + + + + + + | Absolute | 0.4Comment: Testing | 0 - 0.5 K/uL | EXTERNAL | | | Eosinophils | performed at [facility], [address] | | LAB | | | | [address], | | | | | | [place] [address] | | | | + + + + + + | Absolute | 0.1Comment: Testing | 0 - 0.1 K/uL | EXTERNAL | | | Basophils | performed at [facility], [address] | | LAB | | | | [address], | | | | | | [place] [address] | | | | + + + + + + + + | Specimen | + + | Blood specimen | | (specimen) | + + + +---------+ + + | Performing | Address | City/State/Zipcode | Phone Number | | Organization | | | | + +---------+ + + | EXTERNAL LAB | | | | + +---------+ + + Phosphorus (12/21/2013 5:04 AM PDT) + + + + + + | Component | Value | Ref Range | Performed | Pathologist | | | | | At | Signature | + + + + + + | PHOSPHORUS | 3.3Comment: Testing | 2.3 - 4.8 mg/dL | EXTERNAL | | | | performed at [facility], [address] | | LAB | | | | [address], | | | | | | [place] [address] | | | | + + + + + + + + | Specimen | + + | Blood specimen | | (specimen) | + + + +---------+ + + | Performing | Address | City/State/Zipcode | Phone Number | | Organization | | | | + +---------+ + + | EXTERNAL LAB | | | | + +---------+ + + Magnesium (12/21/2013 5:04 AM PDT) + + + + + + | Component | Value | Ref Range | Performed | Pathologist | | | | | At | Signature | + + + + + + | Magnesium | 1.4 (L)Comment: Testing | 1.7 - 2.4 mg/dL | EXTERNAL | | | | performed at [facility], [address] | | LAB | | | | [address], | | | | | | [place] [address] | | | | + + + + + + + + | Specimen | + + | Blood specimen | | (specimen) | + + + +---------+ + + | Performing | Address | City/State/Zipcode | Phone Number | | Organization | | | | + +---------+ + + | EXTERNAL LAB | | | | + +---------+ + + Basic Metabolic Panel (12/21/2013 5:04 AM PDT) + + + + + + | Component | Value | Ref Range | Performed | Pathologist | | | | | At | Signature | + + + + + + | Na | 138Comment: Testing | 135 - 143 | EXTERNAL | | | | performed at [facility], [address] | mmol/L | LAB | | | | [address], | | | | | | [place] [address] | | | | + + + + + + | K | 3.3 (L)Comment: Testing | 3.5 - 4.9 | EXTERNAL | | | | performed at [facility], [address] | mmol/L | LAB | | | | [address], | | | | | | [place] [address] | | | | + + + + + + | Cl | 99Comment: Testing | 99 - 109 mmol/L | EXTERNAL | | | | performed at [facility], [address] | | LAB | | | | [address], | | | | | | [place] [address] | | | | + + + + + + | CO2 | 31Comment: Testing | 23 - 32 mmol/L | EXTERNAL | | | | performed at [facility], [address] | | LAB | | | | [address], | | | | | | [place] [address] | | | | + + + + + + | Anion Gap | 11Comment: Testing | 5 - 20 mmol/L | EXTERNAL | | | | performed at [facility], [address] | | LAB | | | | [address], | | | | | | [place] [address] | | | | + + + + + + | Glucose, | 112 (H)Comment: Testing | 65 - 99 mg/dL | EXTERNAL | | | Fasting | performed at [facility], [address] | | LAB | | | | [address], | | | | | | [place] [address] | | | | + + + + + + | BUN | 15Comment: Testing | 8 - 25 mg/dL | EXTERNAL | | | | performed at [facility], [address] | | LAB | | | | [address], | | | | | | [place] [address] | | | | + + + + + + | Creatinine | 1.19 (H)Comment: Testing | 0.50 - 1.00 | EXTERNAL | | | | performed at [facility], [address] | mg/dL | LAB | | | | [address], | | | | | | [place] [address] | | | | + + + + + + | BUN/Creatin | 13Comment: Testing | | EXTERNAL | | | ine Ratio | performed at [facility], [address] | | LAB | | | | [address], | | | | | | [place] [address] | | | | + + + + + + | Calcium | 8.2 (L)Comment: Testing | 8.5 - 10.2 | EXTERNAL | | | | performed at [facility], [address] | mg/dL | LAB | | | | [address], | | | | | | [place] [address] | | | | + + + + + + | Estimated | 46 (L)Comment: GFR <60: | mL/min/1.73m2 | EXTERNAL | | | GFR | CHRONIC KIDNEY DISEASE, | | LAB | | | | IF FOUND OVER A 3 MONTH | | | | | | PERIOD.GFR <15: KIDNEY | | | | | | FAILURE.FOR | | | | | | AMERICANS, MULTIPLY THE | | | | | | CALCULATED GFR BY | | | | | | 1.210.Testing performed | | | | | | at [facility], [address] | | | | | | [address] [facility], | | | | | | [place] [address] | | | | + + + + + + + + | Specimen | + + | Blood specimen | | (specimen) | + + + +---------+ + + | Performing | Address | City/State/Zipcode | Phone Number | | Organization | | | | + +---------+ + + | EXTERNAL LAB | | | | + +---------+ + + POC Glucose (12/20/2013 9:10 PM PDT) + + + + + + | Component | Value | Ref Range | Performed | Pathologist | | | | | At | Signature | + + + + + + | Glucose, | 163 (H)Comment: Testing | 65 - 99 mg/dL | EXTERNAL | | | Fingerstick | performed at [facility];[address] | | LAB | | | | [address];[place], [place] | | | | | | [address] | | | | + + + + + + + + | Specimen | + + | | + + + +---------+ + + | Performing | Address | City/State/Zipcode | Phone Number | | Organization | | | | + +---------+ + + | EXTERNAL LAB | | | | + +---------+ + + POC Glucose (12/20/2013 4:18 PM PDT) + + + + + + | Component | Value | Ref Range | Performed | Pathologist | | | | | At | Signature | + + + + + + | Glucose, | 116 (H)Comment: Testing | 65 - 99 mg/dL | EXTERNAL | | | Fingerstick | performed at [facility];[address] | | LAB | | | | [address];[place] | | | | | | [address] | | | | + + + + + + + + | Specimen | + + | | + + + +---------+ + + | Performing | Address | City/State/Zipcode | Phone Number | | Organization | | | | + +---------+ + + | EXTERNAL LAB | | | | + +---------+ + + POC Glucose (12/20/2013 12:10 PM PDT) + + + + + + | Component | Value | Ref Range | Performed | Pathologist | | | | | At | Signature | + + + + + + | Glucose, | 148 (H)Comment: Testing | 65 - 99 mg/dL | EXTERNAL | | | Fingerstick | performed at [facility];[address] | | LAB | | | | [address];[place], [place] | | | | | | [address] | | | | + + + + + + + + | Specimen | + + | | + + + +---------+ + + | Performing | Address | City/State/Zipcode | Phone Number | | Organization | | | | + +---------+ + + | EXTERNAL LAB | | | | + +---------+ + + POC Glucose (12/20/2013 5:09 AM PDT) + + + + + + | Component | Value | Ref Range | Performed | Pathologist | | | | | At | Signature | + + + + + + | Glucose, | 126 (H)Comment: Testing | 65 - 99 mg/dL | EXTERNAL | | | Fingerstick | performed at [facility];[address] | | LAB | | | | [address];[place], [place] | | | | | | [address] | | | | + + + + + + + + | Specimen | + + | | + + + +---------+ + + | Performing | Address | City/State/Zipcode | Phone Number | | Organization | | | | + +---------+ + + | EXTERNAL LAB | | | | + +---------+ + + External Lab: [facility] (12/20/2013 4:54 AM PDT) + + + + + + | Component | Value | Ref Range | Performed | Pathologist | | | | | At | Signature | + + + + + + | WBC | 11.1 (H)Comment: Testing | 3.8 - 11.0 K/uL | EXTERNAL | | | | performed at [facility], [address] | | LAB | | | | [address], | | | | | | [place] [address] | | | | + + + + + + | RED CELL | 2.78 (L)Comment: Testing | 3.70 - 5.10 | EXTERNAL | | | COUNT | performed at [facility], [address] | M/uL | LAB | | | | [address], | | | | | | [place] [address] | | | | + + + + + + | Hgb | 8.8 (L)Comment: Testing | 11.3 - 15.5 | EXTERNAL | | | | performed at [facility], [address] | g/dL | LAB | | | | [address], | | | | | | [place] [address] | | | | + + + + + + | Hematocrit, | 27.1 (L)Comment: Testing | 34.0 - 46.0 % | EXTERNAL | | | POC | performed at [facility], [address] | | LAB | | | | [address], | | | | | | [place] [address] | | | | + + + + + + | MCV | 97.6Comment: Testing | 80.0 - 100.0 fl | EXTERNAL | | | | performed at [facility], [address] | | LAB | | | | [address], | | | | | | [place] [address] | | | | + + + + + + | MCH | 31.6Comment: Testing | 27.0 - 34.0 pg | EXTERNAL | | | | performed at [facility], [address] | | LAB | | | | [address], | | | | | | [place] [address] | | | | + + + + + + | MCHC | 32.4Comment: Testing | 32.0 - 35.5 | EXTERNAL | | | | performed at [facility], [address] | g/dL | LAB | | | | [address], | | | | | | [place] [address] | | | | + + + + + + | RDW-CV | 49.0Comment: Testing | 37 - 53 fl | EXTERNAL | | | | performed at [facility], [address] | | LAB | | | | [address], | | | | | | [place] [address] | | | | + + + + + + | Platelet | 352Comment: Testing | 150 - 400 K/uL | EXTERNAL | | | Count | performed at [facility], [address] | | LAB | | | Plasma | [address], | | | | | | [place] [address] | | | | + + + + + + | MPV | 7.3Comment: Testing | fl | EXTERNAL | | | | performed at [facility], [address] | | LAB | | | | [address], | | | | | | [place] [address] | | | | + + + + + + | Differentia | AUTOMATEDComment: | | EXTERNAL | | | l Type | Testing performed at | | LAB | | | | [facility], [address] | | | | | | [place] | | | | | | [address] | | | | + + + + + + | % Segmented | 67.3Comment: Testing | % | EXTERNAL | | | | performed at [facility], [address] | | LAB | | | Neutrophils | [address], | | | | | | [place] [address] | | | | + + + + + + | % | 18.4Comment: Testing | % | EXTERNAL | | | Lymphocytes | performed at [facility], [address] | | LAB | | | [address], | | | | | | [place] [address] | | | | + + + + + + | % Monocytes | 9.7Comment: Testing | % | EXTERNAL | | | | performed at [facility], [address] | | LAB | | | | [address], | | | | | | [place] [address] | | | | + + + + + + | % | 3.9Comment: Testing | % | EXTERNAL | | | Eosinophils | performed at [facility], [address] | | LAB | | | | [address], | | | | | | [place] [address] | | | | + + + + + + | % Basophils | 0.7Comment: Testing | % | EXTERNAL | | | | performed at [facility], [address] | | LAB | | | | [address], | | | | | | [place] [address] | | | | + + + + + + | Absolute | 7.5 (H)Comment: Testing | 1.9 - 7.4 K/uL | EXTERNAL | | | Segmented | performed at [facility], [address] | | LAB | | | Neutrophils | [address], | | | | | | [place] [address] | | | | + + + + + + | Absolute | 2.0Comment: Testing | 1.0 - 3.9 K/uL | EXTERNAL | | | Lymphocytes | performed at [facility], [address] | | LAB | | | | [address], | | | | | | [place] [address] | | | | + + + + + + | Absolute | 1.1 (H)Comment: Testing | 0 - 0.8 K/uL | EXTERNAL | | | Monocytes | performed at [facility], [address] | | LAB | | | | [address], | | | | | | [place] [address] | | | | + + + + + + | Absolute | 0.4Comment: Testing | 0 - 0.5 K/uL | EXTERNAL | | | Eosinophils | performed at [facility], [address] | | LAB | | | | [address], | | | | | | [place] [address] | | | | + + + + + + | Absolute | 0.1Comment: Testing | 0 - 0.1 K/uL | EXTERNAL | | | Basophils | performed at [facility], [address] | | LAB | | | | [address], | | | | | | [place] [address] | | | | + + + + + + + + | Specimen | + + | Blood specimen | | (specimen) | + + + +---------+ + + | Performing | Address | City/State/Zipcode | Phone Number | | Organization | | | | + +---------+ + + | EXTERNAL LAB | | | | + +---------+ + + TSH (12/20/2013 4:54 AM PDT) + + + + + + | Component | Value | Ref Range | Performed | Pathologist | | | | | At | Signature | + + + + + + | TSI | 7.56 (H)Comment: Testing | 0.45 - 5.10 | EXTERNAL | | | | performed at [facility], [address] | uIU/mL | LAB | | | | [address], | | | | | | [place] [address] | | | | + + + + + + + + | Specimen | + + | Blood specimen | | (specimen) | + + + +---------+ + + | Performing | Address | City/State/Zipcode | Phone Number | | Organization | | | | + +---------+ + + | EXTERNAL LAB | | | | + +---------+ + + T4, Free (12/20/2013 4:54 AM PDT) + + + + + + | Component | Value | Ref Range | Performed | Pathologist | | | | | At | Signature | + + + + + + | FREE T4 | 1.3Comment: Testing | 0.7 - 1.5 ng/dL | EXTERNAL | | | (REF) | performed at [facility], [address] | | LAB | | | | [address], | | | | | | [place] [address] | | | | + + + + + + + + | Specimen | + + | Blood specimen | | (specimen) | + + + +---------+ + + | Performing | Address | City/State/Zipcode | Phone Number | | Organization | | | | + +---------+ + + | EXTERNAL LAB | | | | + +---------+ + + Phosphorus (12/20/2013 4:54 AM PDT) + + + + + + | Component | Value | Ref Range | Performed | Pathologist | | | | | At | Signature | + + + + + + | PHOSPHORUS | 3.1Comment: Testing | 2.3 - 4.8 mg/dL | EXTERNAL | | | | performed at [facility], [address] | | LAB | | | | [address], | | | | | | [place] [address] | | | | + + + + + + + + | Specimen | + + | | + + + +---------+ + + | Performing | Address | City/State/Zipcode | Phone Number | | Organization | | | | + +---------+ + + | EXTERNAL LAB | | | | + +---------+ + + B Type Natriuretic Peptide (12/20/2013 4:54 AM PDT) + + + + + + | Component | Value | Ref Range | Performed | Pathologist | | | | | At | Signature | + + + + + + | BNP | 4,730 (H)Comment: | 0 - 100 pg/mL | EXTERNAL | | | | Testing performed at | | LAB | | | | [facility];[address] | | | | | | [address];[place] [address] | | | | + + + + + + + + | Specimen | + + | Blood specimen | | (specimen) | + + + +---------+ + + | Performing | Address | City/State/Zipcode | Phone Number | | Organization | | | | + +---------+ + + | EXTERNAL LAB | | | | + +---------+ + + Magnesium (12/20/2013 4:54 AM PDT) + + + + + + | Component | Value | Ref Range | Performed | Pathologist | | | | | At | Signature | + + + + + + | Magnesium | 1.5 (L)Comment: Testing | 1.7 - 2.4 mg/dL | EXTERNAL | | | | performed at [facility], [address] | | LAB | | | | [address], | | | | | | [place] [address] | | | | + + + + + + + + | Specimen | + + | Blood specimen | | (specimen) | + + + +---------+ + + | Performing | Address | City/State/Zipcode | Phone Number | | Organization | | | | + +---------+ + + | EXTERNAL LAB | | | | + +---------+ + + Bilirubin, Direct (12/20/2013 4:54 AM PDT) + + + + + + | Component | Value | Ref Range | Performed | Pathologist | | | | | At | Signature | + + + + + + | Bilirubin | 0.1Comment: Testing | 0.0 - 0.3 mg/dL | EXTERNAL | | | Direct | performed at [facility], [address] | | LAB | | | | [address], | | | | | | [place] [address] | | | | + + + + + + + + | Specimen | + + | | + + + +---------+ + + | Performing | Address | City/State/Zipcode | Phone Number | | Organization | | | | + +---------+ + + | EXTERNAL LAB | | | | + +---------+ + + Comprehensive Metabolic Panel (12/20/2013 4:54 AM PDT) + + + + + + | Component | Value | Ref Range | Performed | Pathologist | | | | | At | Signature | + + + + + + | Na | 136Comment: Testing | 135 - 143 | EXTERNAL | | | | performed at [facility], [address] | mmol/L | LAB | | | | [address], | | | | | | [place] [address] | | | | + + + + + + | K | 3.5Comment: Testing | 3.5 - 4.9 | EXTERNAL | | | | performed at [facility], [address] | mmol/L | LAB | | | | [address], | | | | | | [place] [address] | | | | + + + + + + | Cl | 101Comment: Testing | 99 - 109 mmol/L | EXTERNAL | | | | performed at [facility], [address] | | LAB | | | [address], | | | | | | [place] [address] | | | | + + + + + + | CO2 | 29Comment: Testing | 23 - 32 mmol/L | EXTERNAL | | | | performed at [facility], [address] | | LAB | | | | [address], | | | | | | [place] [address] | | | | + + + + + + | Anion Gap | 10Comment: Testing | 5 - 20 mmol/L | EXTERNAL | | | | performed at [facility], [address] | | LAB | | | | [address], | | | | | | [place] [address] | | | | + + + + + + | Glucose, | 121 (H)Comment: Testing | 65 - 99 mg/dL | EXTERNAL | | | Fasting | performed at [facility], [address] | | LAB | | | | [address], | | | | | | [place] [address] | | | | + + + + + + | BUN | 20Comment: Testing | 8 - 25 mg/dL | EXTERNAL | | | | performed at [facility], [address] | | LAB | | | | [address], | | | | | | [place] [address] | | | | + + + + + + | Creatinine | 0.98Comment: Testing | 0.50 - 1.00 | EXTERNAL | | | | performed at [facility], [address] | mg/dL | LAB | | | | [address], | | | | | | [place] [address] | | | | + + + + + + | BUN/Creatin | 20Comment: Testing | | EXTERNAL | | | ine Ratio | performed at [facility], [address] | | LAB | | | | [address], | | | | | | [place] [address] | | | | + + + + + + | Calcium | 8.3 (L)Comment: Testing | 8.5 - 10.2 | EXTERNAL | | | | performed at [facility], [address] | mg/dL | LAB | | | | [address], | | | | | | [place] [address] | | | | + + + + + + | Protein, | 5.4 (L)Comment: Testing | 6.3 - 8.2 g/dL | EXTERNAL | | | Total | performed at [facility], [address] | | LAB | | | | [address], | | | | | | [place] [address] | | | | + + + + + + | Albumin | 2.9 (L)Comment: Testing | 3.3 - 4.8 g/dL | EXTERNAL | | | | performed at [facility], [address] | | LAB | | | | [address], | | | | | | [place] [address] | | | | + + + + + + | Globulin | 2.5Comment: Testing | 1.3 - 4.9 g/dL | EXTERNAL | | | | performed at [facility], [address] | | LAB | | | | [address], | | | | | | [place] [address] | | | | + + + + + + | A/G Ratio | 1.2Comment: Testing | 1.0 - 2.4 | EXTERNAL | | | | performed at [facility], [address] | | LAB | | | | [address], | | | | | | [place] [address] | | | | + + + + + + | Bilirubin | 0.4Comment: Testing | 0.1 - 1.5 mg/dL | EXTERNAL | | | Total | performed at [facility], [address] | | LAB | | | | [address], | | | | | | [place] [address] | | | | + + + + + + | ALP, | 55Comment: Testing | 35 - 115 U/L | EXTERNAL | | | External | performed at [facility], [address] | | LAB | | | | [address], | | | | | | [place] [address] | | | | + + + + + + | AST | 25Comment: Testing | 10 - 45 U/L | EXTERNAL | | | | performed at [facility], [address] | | LAB | | | | [address], | | | | | | [place] [address] | | | | + + + + + + | ALT | 14Comment: Testing | 10 - 65 U/L | EXTERNAL | | | | performed at [facility], [address] | | LAB | | | | [address], | | | | | | [place] [address] | | | | + + + + + + | Estimated | 58 (L)Comment: GFR <60: | mL/min/1.73m2 | EXTERNAL | | | GFR | CHRONIC KIDNEY DISEASE, | | LAB | | | | IF FOUND OVER A 3 MONTH | | | | | | PERIOD.GFR <15: KIDNEY | | | | | | FAILURE.FOR | | | | | | AMERICANS, MULTIPLY THE | | | | | | CALCULATED GFR BY | | | | | | 1.210.Testing performed | | | | | | at [facility], [address] | | | | | | [address], | | | | | | [place] [address] | | | | + + + + + + + + | Specimen | + + | | + + + +---------+ + + | Performing | Address | City/State/Zipcode | Phone Number | | Organization | | | | + +---------+ + + | EXTERNAL LAB | | | | + +---------+ + + POC Glucose (12/19/2013 9:36 PM PDT) + + + + + + | Component | Value | Ref Range | Performed | Pathologist | | | | | At | Signature | + + + + + + | Glucose, | 123 (H)Comment: Testing | 65 - 99 mg/dL | EXTERNAL | | | Fingerstick | performed at [facility] | | LAB | | | | [address];[place], [place] | | | | | | [address] | | | | + + + + + + + + | Specimen | + + | | + + + +---------+ + + | Performing | Address | City/State/Zipcode | Phone Number | | Organization | | | | + +---------+ + + | EXTERNAL LAB | | | | + +---------+ + + POC Glucose (12/19/2013 4:27 PM PDT) + + + + + + | Component | Value | Ref Range | Performed | Pathologist | | | | | At | Signature | + + + + + + | Glucose, | 133 (H)Comment: Testing | 65 - 99 mg/dL | EXTERNAL | | | Fingerstick | performed at [facility];[address] | | LAB | | | | [address];[place] | | | | | | [address] | | | | + + + + + + + + | Specimen | + + | | + + + +---------+ + + | Performing | Address | City/State/Zipcode | Phone Number | | Organization | | | | + +---------+ + + | EXTERNAL LAB | | | | + +---------+ + + POC Glucose (12/19/2013 12:02 PM PDT) + + + + + + | Component | Value | Ref Range | Performed | Pathologist | | | | | At | Signature | + + + + + + | Glucose, | 132 (H)Comment: Testing | 65 - 99 mg/dL | EXTERNAL | | | Fingerstick | performed at [facility];[address] | | LAB | | | | [address];[place] | | | | | | [address] | | | | + + + + + + + + | Specimen | + + | | + + + +---------+ + + | Performing | Address | City/State/Zipcode | Phone Number | | Organization | | | | + +---------+ + + | EXTERNAL LAB | | | | + +---------+ + + POC Glucose (12/19/2013 5:42 AM PDT) + + + + + + | Component | Value | Ref Range | Performed | Pathologist | | | | | At | Signature | + + + + + + | Glucose, | 107 (H)Comment: Testing | 65 - 99 mg/dL | EXTERNAL | | | Fingerstick | performed at [facility];[address] | | LAB | | | | [address];[place], [place] | | | | | | [address] | | | | + + + + + + + + | Specimen | + + | | + + + +---------+ + + | Performing | Address | City/State/Zipcode | Phone Number | | Organization | | | | + +---------+ + + | EXTERNAL LAB | | | | + +---------+ + + External Lab: [facility] (12/19/2013 5:37 AM PDT) + + + + + + | Component | Value | Ref Range | Performed | Pathologist | | | | | At | Signature | + + + + + + | WBC | 11.2 (H)Comment: Testing | 3.8 - 11.0 K/uL | EXTERNAL | | | | performed at [facility];[address] | | LAB | | | | [address];[place] | | | | | | [address] | | | | + + + + + + | RED CELL | 2.64 (L)Comment: Testing | 3.70 - 5.10 | EXTERNAL | | | COUNT | performed at [facility];[address] | M/uL | LAB | | | | [address];[place] | | | | | | [address] | | | | + + + + + + | Hgb | 8.4 (L)Comment: Testing | 11.3 - 15.5 | EXTERNAL | | | | performed at [facility];[address] | g/dL | LAB | | | | [address];[place] | | | | | | [address] | | | | + + + + + + | Hematocrit, | 25.2 (L)Comment: Testing | 34.0 - 46.0 % | EXTERNAL | | | POC | performed at [facility];[address] | | LAB | | | | [address];[place] | | | | | | [address] | | | | + + + + + + | MCV | 95.2Comment: Testing | 80.0 - 100.0 fl | EXTERNAL | | | | performed at [facility];[address] | | LAB | | | | [address];[place] | | | | | | [address] | | | | + + + + + + | MCH | 31.9Comment: Testing | 27.0 - 34.0 pg | EXTERNAL | | | | performed at [facility];[address] | | LAB | | | | [address];[place] | | | | | | [address] | | | | + + + + + + | MCHC | 33.6Comment: Testing | 32.0 - 35.5 | EXTERNAL | | | | performed at [facility];[address] | g/dL | LAB | | | | [address];[place] | | | | | | [address] | | | | + + + + + + | RDW-CV | 50.3Comment: Testing | 37 - 53 fl | EXTERNAL | | | | performed at [facility];[address] | | LAB | | | | [address];[place] | | | | | | [address] | | | | + + + + + + | Platelet | 341Comment: Testing | 150 - 400 K/uL | EXTERNAL | | | Count | performed at [facility];[address] | | LAB | | | Plasma | [address];[place] | | | | | | [address] | | | | + + + + + + | MPV | 7.2Comment: Testing | fl | EXTERNAL | | | | performed at [facility];[address] | | LAB | | | | [address];[place] | | | | | | [address] | | | | + + + + + + | Differentia | AUTOMATEDComment: | | EXTERNAL | | | l Type | Testing performed at | | LAB | | | | [facility];[address] | | [address];[place] [address] | | | | + + + + + + | % Segmented | 69.2Comment: Testing | % | EXTERNAL | | | | performed at [facility];[address] | | LAB | | | Neutrophils | [address];[place] | | | | | | [address] | | | | + + + + + + | % | 17.5Comment: Testing | % | EXTERNAL | | | Lymphocytes | performed at [facility];[address] | | LAB | | | | [address];[place] | | | | | | [address] | | | | + + + + + + | % Monocytes | 10.1Comment: Testing | % | EXTERNAL | | | | performed at [facility];[address] | | LAB | | | | [address];[place] | | | | | | [address] | | | | + + + + + + | % | 2.3Comment: Testing | % | EXTERNAL | | | Eosinophils | performed at [facility];[address] | | LAB | | | | [address];[place] | | | | | | [address] | | | | + + + + + + | % Basophils | 0.9Comment: Testing | % | EXTERNAL | | | | performed at [facility];[address] | | LAB | | | | [address];[place] | | | | | | [address] | | | | + + + + + + | Absolute | 7.8 (H)Comment: Testing | 1.9 - 7.4 K/uL | EXTERNAL | | | Segmented | performed at [facility];[address] | | LAB | | | Neutrophils | [address];[place] | | | | | | [address] | | | | + + + + + + | Absolute | 2.0Comment: Testing | 1.0 - 3.9 K/uL | EXTERNAL | | | Lymphocytes | performed at [facility];[address] | | LAB | | | | [address];[place] | | | | | | [address] | | | | + + + + + + | Absolute | 1.1 (H)Comment: Testing | 0 - 0.8 K/uL | EXTERNAL | | | Monocytes | performed at [facility];[address] | | LAB | | | | [address];[place] | | | | | | [address] | | | | + + + + + + | Absolute | 0.3Comment: Testing | 0 - 0.5 K/uL | EXTERNAL | | | Eosinophils | performed at [facility];[address] | | LAB | | | | [address];[place] | | | | | | [address] | | | | + + + + + + | Absolute | 0.1Comment: Testing | 0 - 0.1 K/uL | EXTERNAL | | | Basophils | performed at [facility];[address] | | LAB | | | | [address];[place] | | | | | | [address] | | | | + + + + + + + + | Specimen | + + | Blood specimen | | (specimen) | + + + +---------+ + + | Performing | Address | City/State/Zipcode | Phone Number | | Organization | | | | + +---------+ + + | EXTERNAL LAB | | | | + +---------+ + + Phosphorus (12/19/2013 5:37 AM PDT) + + + + + + | Component | Value | Ref Range | Performed | Pathologist | | | | | At | Signature | + + + + + + | PHOSPHORUS | 3.5Comment: Testing | 2.3 - 4.8 mg/dL | EXTERNAL | | | | performed at [facility], [address] | | LAB | | | | [address], | | | | | | [place] [address] | | | | + + + + + + + + | Specimen | + + | Blood specimen | | (specimen) | + + + +---------+ + + | Performing | Address | City/State/Zipcode | Phone Number | | Organization | | | | + +---------+ + + | EXTERNAL LAB | | | | + +---------+ + + B Type Natriuretic Peptide (12/19/2013 5:37 AM PDT) + + + + + + | Component | Value | Ref Range | Performed | Pathologist | | | | | At | Signature | + + + + + + | BNP | >5000 (H)Comment: | 0 - 100 pg/mL | EXTERNAL | | | | Testing performed at | | LAB | | | | [facility];[address];[place] [address] | | | | + + + + + + + + | Specimen | + + | Blood specimen | | (specimen) | + + + +---------+ + + | Performing | Address | City/State/Zipcode | Phone Number | | Organization | | | | + +---------+ + + | EXTERNAL LAB | | | | + +---------+ + + Magnesium (12/19/2013 5:37 AM PDT) + + + + + + | Component | Value | Ref Range | Performed | Pathologist | | | | | At | Signature | + + + + + + | Magnesium | 1.7Comment: Testing | 1.7 - 2.4 mg/dL | EXTERNAL | | | | performed at [facility], [address] | | LAB | | | | [address], | | | | | | [place] [address] | | | | + + + + + + + + | Specimen | + + | Blood specimen | | (specimen) | + + + +---------+ + + | Performing | Address | City/State/Zipcode | Phone Number | | Organization | | | | + +---------+ + + | EXTERNAL LAB | | | | + +---------+ + + Comprehensive Metabolic Panel (12/19/2013 5:37 AM PDT) + + + + + + | Component | Value | Ref Range | Performed | Pathologist | | | | | At | Signature | + + + + + + | Na | 135Comment: Testing | 135 - 143 | EXTERNAL | | | | performed at [facility], [address] | mmol/L | LAB | | | | [address], | | | | | | [place] [address] | | | | + + + + + + | K | 3.6Comment: Testing | 3.5 - 4.9 | EXTERNAL | | | | performed at [facility], [address] | mmol/L | LAB | | | | [address], | | | | | | [place] [address] | | | | + + + + + + | Cl | 102Comment: Testing | 99 - 109 mmol/L | EXTERNAL | | | | performed at [facility], [address] | | LAB | | | | [address], | | | | | | [place] [address] | | | | + + + + + + | CO2 | 27Comment: Testing | 23 - 32 mmol/L | EXTERNAL | | | | performed at [facility], [address] | | LAB | | | | [address], | | | | | | [place] [address] | | | | + + + + + + | Anion Gap | 10Comment: Testing | 5 - 20 mmol/L | EXTERNAL | | | | performed at [facility], [address] | | LAB | | | | [address], | | | | | | [place] [address] | | | | + + + + + + | Glucose, | 106 (H)Comment: Testing | 65 - 99 mg/dL | EXTERNAL | | | Fasting | performed at [facility], [address] | | LAB | | | | [address], | | | | | | [place] [address] | | | | + + + + + + | BUN | 22Comment: Testing | 8 - 25 mg/dL | EXTERNAL | | | | performed at [facility], [address] | | LAB | | | | [address], | | | | | | [place] [address] | | | | + + + + + + | Creatinine | 1.26 (H)Comment: Testing | 0.50 - 1.00 | EXTERNAL | | | | performed at [facility], [address] | mg/dL | LAB | | | | [address], | | | | | | [place] [address] | | | | + + + + + + | BUN/Creatin | 17Comment: Testing | | EXTERNAL | | | ine Ratio | performed at [facility], [address] | | LAB | | | | [address], | | | | | | [place] [address] | | | | + + + + + + | Calcium | 8.0 (L)Comment: Testing | 8.5 - 10.2 | EXTERNAL | | | | performed at [facility], [address] | mg/dL | LAB | | | | [address], | | | | | | [place] [address] | | | | + + + + + + | Protein, | 5.4 (L)Comment: Testing | 6.3 - 8.2 g/dL | EXTERNAL | | | Total | performed at [facility], [address] | | LAB | | | | [address], | | | | | | [place] [address] | | | | + + + + + + | Albumin | 3.0 (L)Comment: Testing | 3.3 - 4.8 g/dL | EXTERNAL | | | | performed at [facility], [address] | | LAB | | | | [address], | | | | | | [place] [address] | | | | + + + + + + | Globulin | 2.4Comment: Testing | 1.3 - 4.9 g/dL | EXTERNAL | | | | performed at [facility], [address] | | LAB | | | | [address], | | | | | | [place] [address] | | | | + + + + + + | A/G Ratio | 1.3Comment: Testing | 1.0 - 2.4 | EXTERNAL | | | | performed at [facility], [address] | | LAB | | | | [address], | | | | | | [place] [address] | | | | + + + + + + | Bilirubin | 0.5Comment: Testing | 0.1 - 1.5 mg/dL | EXTERNAL | | | Total | performed at [facility], [address] | | LAB | | | | [address], | | | | | | [place] [address] | | | | + + + + + + | ALP, | 53Comment: Testing | 35 - 115 U/L | EXTERNAL | | | External | performed at [facility], [address] | | LAB | | | | [address], | | | | | | [place] [address] | | | | + + + + + + | AST | 30Comment: Testing | 10 - 45 U/L | EXTERNAL | | | | performed at [facility], [address] | | LAB | | | | [address], | | | | | | [place] [address] | | | | + + + + + + | ALT | 14Comment: Testing | 10 - 65 U/L | EXTERNAL | | | | performed at [facility], [address] | | LAB | | | | [address], | | | | | | [place] [address] | | | | + + + + + + | Estimated | 43 (L)Comment: GFR <60: | mL/min/1.73m2 | EXTERNAL | | | GFR | CHRONIC KIDNEY DISEASE, | | LAB | | | | IF FOUND OVER A 3 MONTH | | | | | | PERIOD.GFR <15: KIDNEY | | | | | | FAILURE.FOR | | | | | | AMERICANS, MULTIPLY THE | | | | | | CALCULATED GFR BY | | | | | | 1.210.Testing performed | | | | | | at [facility], [address] | | | | | | [address], | | | | | | [place] [address] | | | | + + + + + + + + | Specimen | + + | Blood specimen | | (specimen) | + + + +---------+ + + | Performing | Address | City/State/Zipcode | Phone Number | | Organization | | | | + +---------+ + + | EXTERNAL LAB | | | | + +---------+ + + POC Glucose (12/18/2013 9:29 PM PDT) + + + + + + | Component | Value | Ref Range | Performed | Pathologist | | | | | At | Signature | + + + + + + | Glucose, | 134 (H)Comment: Testing | 65 - 99 mg/dL | EXTERNAL | | | Fingerstick | performed at [facility] | | LAB | | | | [address];[place], [place] | | | | | | [address] | | | | + + + + + + + + | Specimen | + + | | + + + +---------+ + + | Performing | Address | City/State/Zipcode | Phone Number | | Organization | | | | + +---------+ + + | EXTERNAL LAB | | | | + +---------+ + + POC Glucose (12/18/2013 4:35 PM PDT) + + + + + + | Component | Value | Ref Range | Performed | Pathologist | | | | | At | Signature | + + + + + + | Glucose, | 121 (H)Comment: Testing | 65 - 99 mg/dL | EXTERNAL | | | Fingerstick | performed at [facility];[address] | | LAB | | | | [address];[place] | | | | | | [address] | | | | + + + + + + + + | Specimen | + + | | + + + +---------+ + + | Performing | Address | City/State/Zipcode | Phone Number | | Organization | | | | + +---------+ + + | EXTERNAL LAB | | | | + +---------+ + + XR Chest 2 Vws (12/18/2013 1:56 PM PDT) + + | Specimen | + + | | + + + + + | Impressions | Performed At | + + + | 1. Worsening edema, probably of cardiogenic cause | | | | | + + + + + + | Narrative | Performed At | + + + | HISTORY: 83-year-old female, pain TECHNIQUE: 1. 2 view | | | radiographic examination of the chest. 18 December. 13:51 Prior study | | | for review : 15 December 2013 FINDINGS: Cardiomegaly, sternal | | | wires and vasculopathy. Chronic findings Diffuse interstitial | | | edema and basilar infiltrates, worse. 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 | | | Interstitial edema seems worse | | + + + + + | Procedure Note | + + | Ross, Rad Conversion - 11/26/2018 3:41 PM PDT HISTORY: 83-year-old female, pain | | TECHNIQUE: 1. 2 view radiographic examination of the chest. 18 December. 13:51Prior | | study for review : 15 December 2013 FINDINGS: Cardiomegaly, sternal wires and | | vasculopathy. Chronic findings Diffuse interstitial edema and basilar infiltrates, | | worse. A small amount pleural fluid is also favored Superimposed chronic COPD and | | fibrotic lung disease. Interstitial edema seems worse IMPRESSION: 1. Worsening edema, | | probably of cardiogenic cause Electronically signed by Thomas Mccord MD on | | 12/18/2013 2:01 PM | | | |Cardiomegaly, sternal wires and vasculopathy. Chronic findings | | | |Diffuse interstitial edema and basilar infiltrates, worse. 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 Interstitial edema seems worse | | | |IMPRESSION: | | | |1. Worsening edema, probably of cardiogenic cause | | | | | | | | | + + HISTORICAL LAB PANEL RESULT (12/18/2013 1:44 PM PDT) + + + + + -+ | Component | Value | Ref Range | Performed | Pathologist | | | | | At | Signature | + + + + + -+ | WBC | 14.3 (H)Comment: Testing | 3.8 - 11.0 K/uL | EXTERNAL | | | | performed at [facility];[address] | | LAB | | | | [address];[place] | | | | | | [address] | | | | + + + + + -+ | RED CELL | 2.82 (L)Comment: Testing | 3.70 - 5.10 | EXTERNAL | | | COUNT | performed at [facility];[address] | M/uL | LAB | | | | [address];[place] | | | | | | [address] | | | | + + + + + -+ | Hgb | 9.0 (L)Comment: Testing | 11.3 - 15.5 | EXTERNAL | | | | performed at [facility];[address] | g/dL | LAB | | | | [address];[place] | | | | | | [address] | | | | + + + + + -+ | Hematocrit, | 27.0 (L)Comment: Testing | 34.0 - 46.0 % | EXTERNAL | | | POC | performed at [facility];[address] | | LAB | | | | [address];[place] | | | | | | [address] | | | | + + + + + -+ | MCV | 95.5Comment: Testing | 80.0 - 100.0 fl | EXTERNAL | | | | performed at [facility];[address] | | LAB | | | | [address];[place] | | | | | | [address] | | | | + + + + + -+ | MCH | 32.0Comment: Testing | 27.0 - 34.0 pg | EXTERNAL | | | | performed at [facility];[address] | | LAB | | | [address];[place] | | | | | | [address] | | | | + + + + + -+ | MCHC | 33.5Comment: Testing | 32.0 - 35.5 | EXTERNAL | | | | performed at [facility];[address] | g/dL | LAB | | | | [address];[place] | | | | | | [address] | | | | + + + + + -+ | RDW-CV | 48.1Comment: Testing | 37 - 53 fl | EXTERNAL | | | | performed at [facility];[address] | | LAB | | | | [address];[place] | | | | | | [address] | | | | + + + + + -+ | Platelet | 397Comment: Testing | 150 - 400 K/uL | EXTERNAL | | | Count | performed at [facility];[address] | | LAB | | | Plasma | [address];[place] | | | | | | [address] | | | | + + + + + -+ | MPV | 7.1Comment: Testing | fl | EXTERNAL | | | | performed at [facility];[address] | | LAB | | | | [address];[place] | | | | | | [address] | | | | + + + + + -+ | Differentia | AUTOMATEDComment: | | EXTERNAL | | | l Type | Testing performed at | | LAB | | | | [facility];[address];[place] [address] | | | | + + + + + -+ | % Segmented | 70.3Comment: Testing | % | EXTERNAL | | | | performed at [facility];[address] | | LAB | | | Neutrophils | [address];[place] | | | | | | [address] | | | | + + + + + -+ | % | 18.7Comment: Testing | % | EXTERNAL | | | Lymphocytes | performed at [facility];[address] | | LAB | | | | [address];[place] | | | | | | [address] | | | | + + + + + -+ | % Monocytes | 9.7Comment: Testing | % | EXTERNAL | | | | performed at [facility];[address] | | LAB | | | | [address];[place] | | | | | | [address] | | | | + + + + + -+ | % | 1.0Comment: Testing | % | EXTERNAL | | | Eosinophils | performed at [facility];[address] | | LAB | | | | [address];[place] | | | | | | [address] | | | | + + + + + -+ | % Basophils | 0.3Comment: Testing | % | EXTERNAL | | | | performed at [facility];[address] | | LAB | | | | [address];[place] | | | | | | [address] | | | | + + + + + -+ | Absolute | 10.0 (H)Comment: Testing | 1.9 - 7.4 K/uL | EXTERNAL | | | Segmented | performed at [facility];[address] | | LAB | | | Neutrophils | [address];[place] | | | | | | [address] | | | | + + + + + -+ | Absolute | 2.7Comment: Testing | 1.0 - 3.9 K/uL | EXTERNAL | | | Lymphocytes | performed at [facility];[address] | | LAB | | | | [address];[place] | | | | | | [address] | | | | + + + + + -+ | Absolute | 1.4 (H)Comment: Testing | 0 - 0.8 K/uL | EXTERNAL | | | Monocytes | performed at [facility];[address] | | LAB | | | | [address];[place] | | | | | | [address] | | | | + + + + + -+ | Absolute | 0.1Comment: Testing | 0 - 0.5 K/uL | EXTERNAL | | | Eosinophils | performed at [facility];[address] | | LAB | | | | [address];[place] | | | | | | [address] | | | | + + + + + -+ | Absolute | 0.0Comment: Testing | 0 - 0.1 K/uL | EXTERNAL | | | Basophils | performed at [facility];[address] | | LAB | | | | [address];[place] | | | | | | [address] | | | | + + + + + -+ | Na | 139Comment: Testing | 135 - 143 | EXTERNAL | | | | performed at [facility];[address] | mmol/L | LAB | | | | [address];[place] | | | | | | [address] | | | | + + + + + -+ | K | 4.1Comment: Testing | 3.5 - 4.9 | EXTERNAL | | | | performed at [facility];[address] | mmol/L | LAB | | | | [address];[place] | | | | | | [address] | | | | + + + + + -+ | Cl | 103Comment: Testing | 99 - 109 mmol/L | EXTERNAL | | | | performed at [facility];[address] | | LAB | | | | [address];[place] | | | | | | [address] | | | | + + + + + -+ | CO2 | 24Comment: Testing | 23 - 32 mmol/L | EXTERNAL | | | | performed at [facility];[address] | | LAB | | | | [address];[place] | | | | | | [address] | | | | + + + + + -+ | Anion Gap | 16Comment: Testing | 5 - 20 mmol/L | EXTERNAL | | | | performed at [facility];[address] | | LAB | | | | [address];[place] | | | | | | [address] | | | | + + + + + -+ | Glucose, | 119 (H)Comment: Testing | 65 - 99 mg/dL | EXTERNAL | | | Fasting | performed at [facility];[address] | | LAB | | | | [address];[place] | | | | | | [address] | | | | + + + + + -+ | BUN | 22Comment: Testing | 8 - 25 mg/dL | EXTERNAL | | | | performed at [facility];[address] | | LAB | | | | [address];[place] | | | | | | [address] | | | | + + + + + -+ | Creatinine | 1.22 (H)Comment: Testing | 0.50 - 1.00 | EXTERNAL | | | | performed at [facility];[address] | mg/dL | LAB | | | | [address];[place] | | | | | | [address] | | | | + + + + + -+ | BUN/Creatin | 18Comment: Testing | | EXTERNAL | | | ine Ratio | performed at [facility];[address] | | LAB | | | | [address];[place] | | | | | | [address] | | | | + + + + + -+ | Calcium | 8.1 (L)Comment: Testing | 8.5 - 10.2 | EXTERNAL | | | | performed at [facility];[address] | mg/dL | LAB | | | | [address];[place] | | | | | | [address] | | | | + + + + + -+ | Protein, | 6.0 (L)Comment: Testing | 6.3 - 8.2 g/dL | EXTERNAL | | | Total | performed at [facility];[address] | | LAB | | | | [address];[place] | | | | | | [address] | | | | + + + + + -+ | Albumin | 2.7 (L)Comment: Testing | 3.3 - 4.8 g/dL | EXTERNAL | | | | performed at [facility];[address] | | LAB | | | | [address];[place] | | | | | | [address] | | | | + + + + + -+ | Globulin | 3.3Comment: Testing | 1.3 - 4.9 g/dL | EXTERNAL | | | | performed at [facility];[address] | | LAB | | | | [address];[place] | | | | | | [address] | | | | + + + + + -+ | A/G Ratio | 0.8 (L)Comment: Testing | 1.0 - 2.4 | EXTERNAL | | | | performed at [facility];[address] | | LAB | | | | [address];[place] | | | | | | [address] | | | | + + + + + -+ | Bilirubin | 0.5Comment: Testing | 0.1 - 1.5 mg/dL | EXTERNAL | | | Total | performed at [facility];[address] | | LAB | | | | [address];[place] | | | | | | [address] | | | | + + + + + -+ | ALP, | 68Comment: Testing | 35 - 115 U/L | EXTERNAL | | | External | performed at [facility];[address] | | LAB | | | | [address];[place] | | | | | | [address] | | | | + + + + + -+ | AST | 37Comment: Testing | 10 - 45 U/L | EXTERNAL | | | | performed at [facility];[address] | | LAB | | | | [address];[place] | | | | | | [address] | | | | + + + + + -+ | ALT | 20Comment: Testing | 10 - 65 U/L | EXTERNAL | | | | performed at [facility];[address] | | LAB | | | | [address];[place] | | | | | | [address] | | | | + + + + + -+ | Estimated | 45 (L)Comment: GFR <60: | mL/min/1.73m2 | EXTERNAL | | | GFR | CHRONIC KIDNEY DISEASE, | | LAB | | | | IF FOUND OVER A 3 MONTH | | | | | | PERIOD.GFR <15: KIDNEY | | | | | | FAILURE.FOR | | | | | | AMERICANS, MULTIPLY THE | | | | | | CALCULATED GFR BY | | | | | | 1.210.Testing performed | | | | | | at [facility];[address];[place] [address] | | | | + + + + + -+ | CK, Total | 65Comment: Testing | 30 - 240 U/L | EXTERNAL | | | | performed at [facility];[address] | | LAB | | | | [address];[place] | | | | | | [address] | | | | + + + + + -+ | INR | 1.2Comment: REFERENCE | | EXTERNAL | | | | RANGE:0.9 - 1.2 | | LAB | | | | NON-ANTICOAGULATED2.0 | | | | | | - 3.0 ALL OTHER | | | | | | THERAPEUTIC | | | | | | INDICATIONS2.5 - 3.5 | | | | | | MECHANICAL HEART VALVES, | | | | | | RECURRENT OR SYSTEMIC | | | | | | EMBOLISMTesting | | | | | | performed at [facility];[address] | | | | | | [address];[place] | | | | | | [address] | | | | + + + + + -+ | aPTT, | 25Comment: Testing | 23 - 32 seconds | EXTERNAL | | | Patient | performed at [facility];[address] | | LAB | | | | [address];[place] | | | | | | [address] | | | | + + + + + -+ | CK-MB | 3.0Comment: Testing | 0.5 - 3.6 ng/mL | EXTERNAL | | | | performed at [facility];[address] | | LAB | | | | [address];[place], [place] | | | | | | [address] | | | | + + + + + -+ | CK-MB Index | 4.6Comment: CK INDEX | | EXTERNAL | | | | INTERPRETATION: | | LAB | | | | MMB ng/mL | | | | | | | | | | | |CK INDEX INTERPRETATION: | | | | | | MMB ng/mL | | | | | | | | | | + + + + + -+ + + | Specimen | + + | | + + + +---------+ + + | Performing | Address | City/State/Zipcode | Phone Number | | Organization | | | | + +---------+ + + | EXTERNAL LAB | | | | + +---------+ + + B Type Natriuretic Peptide (12/18/2013 1:44 PM PDT) + + + + + + | Component | Value | Ref Range | Performed | Pathologist | | | | | At | Signature | + + + + + + | BNP | >5000 (H)Comment: | 0 - 100 pg/mL | EXTERNAL | | | | Testing performed at | | LAB | | | | [facility];[address];[place] [address] | | | | + + + [...] + | Diagnosis | + + | Pulmonary edema Pulmonary congestion and hypostasis | + + | Acute on chronic renal insufficiency Unspecified disorder of kidney and ureter | + + | Systolic CHF, acute on chronic (HCC) Acute on chronic systolic heart failure | + + | S/P CABG (coronary artery bypass graft) Postsurgical aortocoronary bypass status | + + | Essential hypertension, benign | + + | DM (diabetes mellitus) (HCC) Type II or unspecified type diabetes mellitus without | | mention of complication, not stated as uncontrolled | + + | CAD (coronary artery disease) Coronary atherosclerosis of unspecified type of vessel, | | nikolai or graft | + + documented in this encounter
--- OUTSIDE RECORDS SUMMARY | ~2019-03-06 | XMS | Encounter Summary ---
Demographics + + + | Address | [address] | | | [place] [address] | + + + | Home Phone | | + + + | Preferred Language | Unknown | + + + | Marital Status | | + + + | Scientologist Affiliation | 1041 | + + + | Race | Unknown | + + + | Ethnic Group | Unknown | + + + Author + + + | Author | [facility] | | | and [place] | + + + | Organization | [facility] | | | [...] [place], [place] | | | | | [address] | | + + + + + | Rivka Palma | ECON | Unknown | | + + + + + | Geno Kendall | ECON | Unknown | | + + + + + Care Team Providers + +------+ + | Care Thermodynamics Engineer Name | Role | Phone | + +------+ + | Lorenzo Valdes MD | PCP | | + +------+ + Encounter Details +--------+ + + + + | Date | Type | Department | Care Team | Description | +--------+ + + + + | 09/27/ | Hospital | [facility] | Conversion | Coronary artery | | 2019 | Encounter | [facility] | Transaction, | disease of bypass | | | | ECHOCARDIOGRAPHY | Provider Unknown | graft of [place] | | | | [address] | [phone] | heart with stable | | | | [place], [place] | | angina pectoris | | | | [address] | | ([facility]); Ischemic | | | | [phone] | | cardiomyopathy | +--------+ + + [...] + + | losartan (COZAAR) | Take 0.5 tablets by | | 0 | 07/16/19 | | | 25 mg tablet | mouth daily. | | | 19 | | + + + +---------+ + [...] + + +---------+ + + | | TK 1 T PO Q 12 | | 0 | 08/06/19 | | | amoxicillin-clavulan | HOURS | | | 19 | 9 | | ate (AUGMENTIN) | | | | | | | 875-125 mg per [...] | | | | | | | ([facility]), Bronchitis, | | | | | | | obstructive, chronic | | | | | | | ([facility]) | | | | | | + [...] puffs into | 1 | 11 | 05/06/20 | | | (ASMANEX 60 METERED | the lungs Daily. | Inhaler | | 15 | 9 | | DOSES) 220 mcg/puff | | | | | | | inhalerIndications: | | | | | | | Bronchiectasis | | | | | | | ([facility]), Bronchitis, | | | | | | | obstructive, chronic | | | | | | | ([facility]), Asthma, | | | | | | [...] [place] | | | | | | [address] | | | | | | | [...] [place] | | | | | | [address] | | | | | | | | +--------+ + + + + documented as of this encounter Procedures + +--------+ + + + | Procedure Name | Priori | Date/Time | Associated Diagnosis | Comments | | | ty | | | | + +--------+ + + + | ECHO COMPLETE | Routin | 09/27/2018 | | Results for this | | | e | 11:19 AM | | procedure are in the | | | | PDT | | results section. | + +--------+ + + + documented in this encounter Results ECHO Complete (09/27/2018 11:19 AM PDT) + + | Specimen | + + | | + + + + + | Impressions | Performed At | + + + | 1. The left ventricle is moderately dilated, severely impaired | | | systolic function EF 20-25% 2. The right ventricle is normal in size | | | and mildly impaired systolic function. 3. Mild mitral, aortic and | | | tricuspid regurgitation. 4. There is no pericardial effusion. 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 CONCLUSIONS 1. The left | | | ventricle is moderately dilated, severely impaired systolic function | | | EF 20-25% 2. The right ventricle is normal in size and mildly | | | impaired systolic function. 3. Mild mitral, aortic and tricuspid | | | regurgitation. 4. There is no pericardial effusion. FINDINGS | | | -------- ECG rhythm: Sinus rhythm. ECG rhythm: Ventricularly paced | | | rhythm. Study: A 2-dimensional transthoracic echocardiogram with | | | m-mode, spectral and color flow Doppler was perfomed. Study: This was | | | a technically adequate study. Left Ventricle: Overall left | | | ventricular systolic function is severely impaired with, an EF between | | | 20 - 25 %. Left Ventricle: The left ventricle is moderately dilated. | | | Left Ventricle: Left ventricular wall thickness is normal. Left | | | Ventricle: There is severe global hypokinesis of LV contractility. | | | Left Ventricle: There is paradoxical/dysynergic septal motion | | | consistent with RV pacing. Right Ventricle: The right ventricle is | | | normal in size. Right Ventricle: The right ventricular systolic | | | function is mildly impaired. Right Ventricle: Pacer/ICD wire seen. | | | Left Atrium: The left atrial size is normal Left Atrium: , and the LA | | | measures 4.3cm. Right Atrium: The right atrial size is normal. | | | Right Atrium: Pacemaker wire seen in the right atrial cavity. Right | | | Atrium: and the right atrium measures 3.7cm Aortic Valve: The aortic | | | valve was not well visualized. Aortic Valve: There is mild aortic | | | regurgitation. Aortic Valve: The aortic valve is mildly calcified. | | | Mitral Valve: Mild mitral regurgitation is present. Mitral Valve: | | | Mild mitral annular calcification present. Tricuspid Valve: The | | | tricuspid valve appears structurally normal. Tricuspid Valve: Mild | | | tricuspid regurgitation present. Tricuspid Valve: The right | | | ventricular systolic pressure (pulmonary artery systolic pressure), as | | | measured by Doppler, is 30.49mmHg. Tricuspid Valve: There is no | | | evidence of pulmonary hypertension. Pulmonic Valve: The pulmonic | | | valve was not well visualized. Pulmonic Valve: Mild pulmonic | | | regurgitation. Pericardium: There is no pericardial effusion. | | | Pericardium: No pleural effusion seen. IVC/Hepatic Veins: The IVC is | | | small (<1.5cm) and collapses with sniff, consistent with central | | | venous pressures of 0-5mmHg. Aorta: The aortic root, ascending aorta | | | and aortic arch are normal. MEASUREMENTS Ao asc: | | | 2.98 cm Ao sinus: 2.[address] junct: 2.42 cm LA Major: | | | 4.47 cm EDV(Teich): 197.69 ml IVSd: 1.09 cm LVIDd: 6.25 | | | cm LVPWd: 1.10 cm LVOT Diam: 2.09 cm %FS: 10.46 % | | | EF(Teich): 22.35 % ESV(Teich): 153.50 ml IVSs: 1.12 cm | | | LVIDs: 5.59 cm LVPWs: 1.26 cm SV(Teich): 44.18 ml RA | | | Major: 3.65 cm RVIDd: 3.01 cm LVEF MOD A2C: 26.29 % SV MOD | | | A2C: 44.72 ml LVEF MOD A4C: 26.27 % SV MOD A4C: 59.52 ml | | | EF Biplane: 27.57 % LVEDV MOD BP: 205.50 ml LVESV MOD BP: | | | 148.83 ml LVEDV MOD A2C: 170.07 ml LVLd A2C: 8.54 cm LVEDV | | | MOD A4C: 226.55 ml LVLd A4C: 9.41 cm LVESV MOD A2C: 125.35 | | | ml LVLs A2C: 7.76 cm LVESV MOD A4C: 167.02 ml LVLs A4C: | | | 8.23 cm CO Biplane: 3.90 l/min HR: 68.84 BPM R-R: 871.55 | | | ms LAESV(A-L): 53.78 ml LAESV Index (A-L): 32.20 ml/m2 LAAs | | | A2C: 18.17 cm2 LAESV A-L A2C: 53.20 ml LALs A2C: 5.27 cm | | | LAAs A4C: 16.85 cm2 LAESV A-L A4C: 49.87 ml LALs A4C: 4.83 | | | cm Ao Diam: 3.04 cm AV Cusp: 1.03 cm LA Diam: 4.31 cm | | | LA/Ao: 1.41 D-E Excursion: 1.29 cm E-F Sioux: 0.07 m/s | | | EPSS: 2.14 cm TAPSE: 1.03 cm IVC diameter: 1.38 cm IVC | | | collapse: 0.47 cm IVC % collapse: 64.24 % AR Dec Sioux: | | | 1.53 m/s2 AR Dec Time: 2250.10 ms AR maxP.90 mmHg AR | | | PHT: 652.53 ms AR Vmax: 3.46 m/s HR: 71.49 BPM AR maxPG: | | | 49.29 mmHg AR meanP.99 mmHg AR Vmax: 3.51 m/s AR | | | Vmean: 2.99 m/s AR VTI: 170.00 cm ARend P.95 mmHg | | | ARend Vmax: 2.82 m/s HR: 71.01 BPM AV maxP.10 mmHg AV | | | meanP.16 mmHg AV Vmax: 1.58 m/s AV Vmean: 1.19 m/s AV | | | VTI: 26.00 cm BEATRIZ Vmax: 1.05 cm2 BEATRIZ (VTI): 1.11 cm2 AVAI | | | Vmax: 0.00 cm2/m2 AVAI (VTI): 0.00 cm2/m2 LVCI Dopp: 1.20 | | | l/minm2 LVCO Dopp: 2.01 l/min HR: 69.60 BPM LVOT maxPG: | | | 0.96 mmHg LVOT meanP.60 mmHg LVSI Dopp: 17.34 ml/m2 LVSV | | | Dopp: 28.97 ml LVOT Vmax: 0.49 m/s LVOT Vmean: 0.36 m/s | | | LVOT VTI: 8.44 cm MR maxP.10 mmHg MR meanP.28 | | | mmHg MR Vmax: 4.50 m/s MR Vmean: 3.43 m/s MR VTI: 165.91 | | | cm MV A Shola: 1.06 m/s MV DecT: 110.63 ms MV E Shola: 0.29 | | | m/s MV E/A Ratio: 0.27 E/E' Av.57 E' Av.03 m/s | | | E/E' Lat: 7.12 E/E' Sept: 10.76 E' Lat: 0.04 m/s E' Sept: | | | 0.02 m/s P Vein D: 0.21 m/s P Vein S/D Ratio: 2.63 P Vein | | | S: 0.56 m/s PAEDP: 13.79 mmHg HR: 71.49 BPM ID maxPG: | | | 12.93 mmHg ID meanP.35 mmHg ID Vmax: 1.79 m/s ID Vmean: | | | 1.48 m/s ID VTI: 75.20 cm PRend P.79 mmHg PRend Vmax: | | | 1.48 m/s HR: 69.83 BPM PV maxP.12 mmHg PV meanPG: | | | 1.41 mmHg PV Vmax: 0.72 m/s PV Vmean: 0.58 m/s PV VTI: | | | 15.24 cm RAP: 5 mmHg RV S': 0.04 m/s RVSP: 30.49 mmHg TR | | | maxP.49 mmHg TR Vmax: 2.52 m/s TV A Shola: 0.59 m/s TV | | | Dec Sioux: 1.70 m/s2 TV Dec Time: 277.39 ms TV E Shola: 0.47 | | | m/s TV E/A Ratio: 0.78 Flexographic Press Plate Setter: HOWARD Authenticated by: | | | Chapo Stock MD Report Date/Time: -- [id number] | | + + + + + | Procedure Note | + + | César Hawkins Conversion - 11/23/2018 9:06 PM PDT Patient Name: Romie CROCKETT of | | : 1930 Performing Physician: Chapo Stock | | INDICATIONS S | | hortness of Breath; 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 CONCLUSIONS 1. The left ventricle | | is moderately dilated, severely impaired systolic function EF 20-25%2. The right | | ventricle is normal in size and mildly impaired systolic function.3. Mild mitral, aortic | | and tricuspid regurgitation.4. There is no pericardial effusion. FINDINGS--------ECG | | rhythm: Sinus rhythm.ECG rhythm: Ventricularly paced rhythm.Study: A 2-dimensional | | transthoracic echocardiogram with m-mode, spectral and color flow Doppler was | | perfomed.Study: This was a technically adequate study.Left Ventricle: Overall left | | ventricular systolic function is severely impaired with, an EF between 20 - 25 %.Left | | Ventricle: The left ventricle is moderately dilated.Left Ventricle: Left ventricular | | wall thickness is normal.Left Ventricle: There is severe global hypokinesis of LV | | contractility.Left Ventricle: There is paradoxical/dysynergic septal motion consistent | | with RV pacing.Right Ventricle: The right ventricle is normal in size.Right Ventricle: | | The right ventricular systolic function is mildly impaired.Right Ventricle: Pacer/ICD | | wire seen.Left Atrium: The left atrial size is normalLeft Atrium: , and the LA measures | | 4.3cm.Right Atrium: The right atrial size is normal.Right Atrium: Pacemaker wire seen in | | the right atrial cavity.Right Atrium: and the right atrium measures 3.7cmAortic Valve: | | The aortic valve was not well visualized.Aortic Valve: There is mild aortic | | regurgitation.Aortic Valve: The aortic valve is mildly calcified.Mitral Valve: Mild | | mitral regurgitation is present.Mitral Valve: Mild mitral annular calcification | | present.Tricuspid Valve: The tricuspid valve appears structurally normal.Tricuspid | | Valve: Mild tricuspid regurgitation present.Tricuspid Valve: The right ventricular | | systolic pressure (pulmonary artery systolic pressure), as measured by Doppler, is | | 30.49mmHg.Tricuspid Valve: There is no evidence of pulmonary hypertension.Pulmonic | | Valve: The pulmonic valve was not well visualized.Pulmonic Valve: Mild pulmonic | | regurgitation.Pericardium: There is no pericardial effusion.Pericardium: No pleural | | effusion seen.IVC/Hepatic Veins: The IVC is small (<1.5cm) and collapses with sniff, | | consistent with central venous pressures of 0-5mmHg.Aorta: The aortic root, ascending | | aorta and aortic arch are normal. MEASUREMENTS Ao asc: 2.98 cmAo sinus: | | 2.[address] junct: 2.42 cmLA Major: 4.47 cmEDV(Teich): 197.69 mlIVSd: 1.09 | | cmLVIDd: 6.25 cmLVPWd: 1.10 cmLVOT Diam: 2.09 cm%FS: 10.46 %EF(Teich): 22.35 | | %ESV(Teich): 153.50 mlIVSs: 1.12 cmLVIDs: 5.59 cmLVPWs: 1.26 cmSV(Teich): | | 44.18 mlRA Major: 3.65 cmRVIDd: 3.01 cmLVEF MOD A2C: 26.29 %SV MOD A2C: 44.72 | | mlLVEF MOD A4C: 26.27 %SV MOD A4C: 59.52 mlEF Biplane: 27.57 %LVEDV MOD BP: | | 205.50 mlLVESV MOD BP: 148.83 mlLVEDV MOD A2C: 170.07 mlLVLd A2C: 8.54 cmLVEDV MOD | | A4C: 226.55 mlLVLd A4C: 9.41 cmLVESV MOD A2C: 125.35 mlLVLs A2C: 7.76 cmLVESV | | MOD A4C: 167.02 mlLVLs A4C: 8.23 cmCO Biplane: 3.90 l/minHR: 68.84 BPMR-R: | | 871.55 msLAESV(A-L): 53.78 mlLAESV Index (A-L): 32.20 ml/m2LAAs A2C: 18.17 | | [id number] A-L A2C: 53.20 mlLALs A2C: 5.27 cmLAAs A4C: 16.85 [id number] A-L A4C: | | 49.87 mlLALs A4C: 4.83 cmAo Diam: 3.04 cmAV Cusp: 1.03 cmLA Diam: 4.31 cmLA/Ao: | | 1.41D-E Excursion: 1.29 cmE-F Sioux: 0.07 m/sEPSS: 2.14 cmTAPSE: 1.03 cmIVC | | diameter: 1.38 cmIVC collapse: 0.47 cmIVC % collapse: 64.24 %AR Dec [place]oux: 1.53 | | m/s2AR Dec Time: 2250.10 msAR maxP.90 mmHgAR PHT: 652.53 msAR Vmax: 3.46 | | m/sHR: 71.49 BPMAR maxP.29 mmHgAR meanP.99 mmHgAR Vmax: 3.51 m/Danyell | | Vmean: 2.99 m/[place]anyell VTI: 170.00 cmARend P.95 mmHgARend Vmax: 2.82 m/sHR: | | 71.01 BPMAV maxP.10 mmHgAV meanP.16 mmHgAV Vmax: 1.58 m/Evelin Vmean: 1.19 | | m/Evelin VTI: 26.00 cmAVA Vmax: 1.05 cm2AVA (VTI): 1.11 [id number] Vmax: 0.00 | | cm2/m2AVAI (VTI): 0.00 cm2/m2LVCI Dopp: 1.20 l/[id number] Dopp: 2.01 l/minHR: | | 69.60 BPMLVOT maxP.96 mmHgLVOT meanP.60 mmHgLVSI Dopp: 17.34 ml/m2LVSV | | Dopp: 28.97 mlLVOT Vmax: 0.49 m/sLVOT Vmean: 0.36 m/sLVOT VTI: 8.44 cmMR maxPG: | | 81.10 mmHgMR meanP.28 mmHgMR Vmax: 4.50 m/sMR Vmean: 3.43 m/sMR VTI: | | 165.91 cmMV A Shola: 1.06 m/sMV DecT: 110.63 msMV E Shola: 0.29 m/sMV E/A Ratio: | | 0.27E/E' Av.57E' Av.03 m/sE/E' Lat: 7.12E/E' Sept: 10.76E' Lat: 0.04 | | m/sE' Sept: 0.02 m/sP Vein D: 0.21 m/sP Vein S/D Ratio: 2.63P Vein S: 0.56 | | m/sPAEDP: 13.79 mmHgHR: 71.49 BPMPR maxP.93 mmHgPR meanP.35 mmHgPR | | Vmax: 1.79 m/sPR Vmean: 1.48 m/sPR VTI: 75.20 cmPRend P.79 mmHgPRend Vmax: | | 1.48 m/sHR: 69.83 BPMPV maxP.12 mmHgPV meanP.41 mmHgPV Vmax: 0.72 m/sPV | | Vmean: 0.58 m/sPV VTI: 15.24 cmRAP: 5 mmHgRV S': 0.04 m/sRVSP: 30.49 mmHgTR | | maxP.49 mmHgTR Vmax: 2.52 m/sTV A Shola: 0.59 m/sTV Dec Sioux: 1.70 m/s2TV | | Dec Time: 277.39 msTV E Shola: 0.47 m/sTV E/A Ratio: 0.78 Flexographic Press Plate Setter: | | MIKAuthenticated by: Chapo Stock MDReport Date/Time: -- [id number] | | IMPRESSION: 1. The left ventricle is moderately dilated, severely impaired systolic | | function EF 20-25%2. The right ventricle is normal in size and mildly impaired systolic | | function.3. Mild mitral, aortic and tricuspid regurgitation.4. There is no pericardial | | effusion. | |IVSs: 1.12 cm | |LVIDs: 5.59 cm | |LVPWs: 1.26 cm | |SV(Teich): 44.18 ml | |RA Major: 3.65 cm | |RVIDd: 3.01 cm | |LVEF MOD A2C: 26.29 % | |SV MOD A2C: 44.72 ml | |LVEF MOD A4C: 26.27 % | |SV MOD A4C: 59.52 ml | |EF Biplane: 27.57 % | |LVEDV MOD BP: 205.50 ml | |LVESV MOD BP: 148.83 ml | |LVEDV MOD A2C: 170.07 ml | |LVLd A2C: 8.54 cm | |LVEDV MOD A4C: 226.55 ml | |LVLd A4C: 9.41 cm | |LVESV MOD A2C: 125.35 ml | |LVLs A2C: 7.76 cm | |LVESV MOD A4C: 167.02 ml | |LVLs A4C: 8.23 cm | |CO Biplane: 3.90 l/min | |HR: 68.84 BPM | |R-R: 871.55 ms | |LAESV(A-L): 53.78 ml | |LAESV Index (A-L): 32.20 ml/m2 | |LAAs A2C: 18.17 cm2 | |LAESV A-L A2C: 53.20 ml | |LALs A2C: 5.27 cm | |LAAs A4C: 16.85 cm2 | |LAESV A-L A4C: 49.87 ml | |LALs A4C: 4.83 cm | |Ao Diam: 3.04 cm | |AV Cusp: 1.03 cm | |LA Diam: 4.31 cm | |LA/Ao: 1.41 | |D-E Excursion: 1.29 cm | |E-F Sioux: 0.07 m/s | |EPSS: 2.14 cm | |TAPSE: 1.03 cm | |IVC diameter: 1.38 cm | |IVC collapse: 0.47 cm | |IVC % collapse: 64.24 % | |AR Dec Sioux: 1.53 m/s2 | |AR Dec Time: 2250.10 ms | |AR maxP.90 mmHg | |AR PHT: 652.53 ms | |AR Vmax: 3.46 m/s | |HR: 71.49 BPM | |AR maxP.29 mmHg | |AR meanP.99 mmHg | |AR Vmax: 3.51 m/s | |AR Vmean: 2.99 m/s | |AR VTI: 170.00 cm | |ARend P.95 mmHg | |ARend Vmax: 2.82 m/s | |HR: 71.01 BPM | |AV maxP.10 mmHg | |AV meanP.16 mmHg | |AV Vmax: 1.58 m/s | |AV Vmean: 1.19 m/s | |AV VTI: 26.00 cm | |BEATRIZ Vmax: 1.05 cm2 | |BEATRIZ (VTI): 1.11 cm2 | |AVAI Vmax: 0.00 cm2/m2 | |AVAI (VTI): 0.00 cm2/m2 | |LVCI Dopp: 1.20 l/minm2 | |LVCO Dopp: 2.01 l/min | |HR: 69.60 BPM | |LVOT maxP.96 mmHg | |LVOT meanP.60 mmHg | |LVSI Dopp: 17.34 ml/m2 | |LVSV Dopp: 28.97 ml | |LVOT Vmax: 0.49 m/s | |LVOT Vmean: 0.36 m/s | |LVOT VTI: 8.44 cm | |MR maxP.10 mmHg | |MR meanP.28 mmHg | |MR Vmax: 4.50 m/s | |MR Vmean: 3.43 m/s | |MR VTI: 165.91 cm | |MV A Shola: 1.06 m/s | |MV DecT: 110.63 ms | |MV E Shola: 0.29 m/s | |MV E/A Ratio: 0.27 | |E/E' Av.57 | |E' Av.03 m/s | |E/E' Lat: 7.12 | |E/E' Sept: 10.76 | |E' Lat: 0.04 m/s | |E' Sept: 0.02 m/s | |P Vein D: 0.21 m/s | |P Vein S/D Ratio: 2.63 | |P Vein S: 0.56 m/s | |PAEDP: 13.79 mmHg | |HR: 71.49 BPM | |ID maxP.93 mmHg | |ID meanP.35 mmHg | |ID Vmax: 1.79 m/s | |ID Vmean: 1.48 m/s | |ID VTI: 75.20 cm | |PRend P.79 mmHg | |PRend Vmax: 1.48 m/s | |HR: 69.83 BPM | |PV maxP.12 mmHg | |PV meanP.41 mmHg | |PV Vmax: 0.72 m/s | |PV Vmean: 0.58 m/s | |PV VTI: 15.24 cm | |RAP: 5 mmHg | |RV S': 0.04 m/s | |RVSP: 30.49 mmHg | |TR maxP.49 mmHg | |TR Vmax: 2.52 m/s | |TV A Shola: 0.59 m/s | |TV Dec Sioux: 1.70 m/s2 | |TV Dec Time: 277.39 ms | |TV E Shola: 0.47 m/s | |TV E/A Ratio: 0.78 | | | |Flexographic Press Plate Setter: HOWARD | |Authenticated by: Chapo Stock MD | |Report Date/Time: -- [id number] | | | |IMPRESSION: | |1. The left ventricle is moderately dilated, severely impaired systolic function EF 20-25% | |2. The right ventricle is normal in size and mildly impaired systolic function. | |3. Mild mitral, aortic and tricuspid regurgitation. | |4. There is no pericardial effusion. | + + documented in this encounter Visit Diagnoses + + | Diagnosis | + + | Coronary artery disease of bypass graft of [place] heart with stable angina pectoris | | (HCC) | + + | Ischemic cardiomyopathy Other specified forms of chronic ischemic heart disease | + + documented in this encounter"
--- OUTSIDE RECORDS SUMMARY | ~2019-03-06 | XMS | Encounter Summary ---
Demographics + + + | Address | [address] | | | [place] [address] | + + + | Home Phone | | + + + | Preferred Language | Unknown | + + + | Marital Status | | + + + | Mandaen Affiliation | 1041 | + + + | Race | Unknown | + + + | Ethnic Group | Unknown | + + + Author + + + | Author | [facility] | | | and [place] | + + + | Organization | [facility] | | | and [...] [place], [place] | | | | | [address] | | + + + + + | Rivka Palma | ECON | Unknown | | + + + + + | Geno Kendall | ECON | Unknown | | + + + + + Care Team Providers + +------+ + | Care Pump Room Operator Name | Role | Phone | [...] | SR | | | | | [phone] | | | +--------+ + + + [...] [place] | | | | | | [address] | | | | | | | [...] [place] | | | | | | [address] | | | | | | | | +--------+ + + + + documented as of this encounter Visit Diagnoses Not on filedocumented in this encounter
--- OUTSIDE RECORDS SUMMARY | ~2019-03-06 | XMS | Encounter Summary ---
Demographics + + + | Address | [address] | | | [place] [address] | + + + | Home Phone | | + + + | Preferred Language | Unknown | + + + | Marital Status | | + + + | Mandaeism Affiliation | 1041 | + + + | Race | Unknown | + + + | Ethnic Group | Unknown | + + + Author + + + | Author | [facility] | | | and [place] | + + + | Organization | [facility] | | | [...] [place], [place] | | | | | [address] | | + + + + + | Rivka Palma | ECON | Unknown | | + + + + + | Geno Kendall | ECON | Unknown | | + + + + + Care Team Providers + +------+ + | Care Toolroom Helper Name | Role | Phone | + +------+ + | Lorenzo Valdes MD | PCP | | + +------+ + Encounter Details +--------+ + + + + | Date | Type | Department | Care Team | Description | +--------+ + + + + | 12/23/ | Orders Only | [facility] | Conversion | | | 2013 | | NEPHROLOGY [place] | Transaction, | | | | | [address] [facility] | Provider Unknown | | | | | JAI GUILLORY | [phone] | | | | | [address] | | | | | | [phone] | | | +--------+ + + + [...] [place] | | | | | | [address] | | | | | | | [...] [place] | | | | | | [address] | | | | | | | | +--------+ + + + + documented as of this encounter Procedures + +--------+ + + + | Procedure Name | Priori | Date/Time | Associated Diagnosis | Comments | | | ty | | | | + +--------+ + + + | BASIC METABOLIC | Routin | 12/23/2013 | | Results for this | | PANEL | e | 12:00 AM | | procedure are in the | | | | PDT | | results section. | + +--------+ + + + documented in this encounter Results Basic Metabolic Panel (12/23/2013 12:00 AM PDT) + +---------+ + + + | Component | Value | Ref Range | Performed | Pathologist | | | | | At | Signature | + +---------+ + + + | Glucose, | 118 (A) | 70 - 100 mg/dL | EXTERNAL | | | Fasting | | | LAB | | + +---------+ + + + | BUN | 16 | 6 - 23 mg/dL | EXTERNAL | | | | | | LAB | | + +---------+ + + + | Creatinine | 1.01 | 0.70 - 1.11 | EXTERNAL | | | | | mg/dL | LAB | | + +---------+ + + + | BUN/Creatin | 15.8 | 6.0 - 28.6 | EXTERNAL | | | ine Ratio | | | LAB | | + +---------+ + + + | Calcium | 8.8 | 8.4 - 10.2 | EXTERNAL | | | | | mg/dL | LAB | | + +---------+ + + + | Na | 139 | 132 - 143 | EXTERNAL | | | | | mmol/L | LAB | | + +---------+ + + + | K | 3.4 (A) | 3.6 - 5.1 | EXTERNAL | | | | | mmol/L | LAB | | + +---------+ + + + | Cl | 97 | 95 - 112 mmol/L | EXTERNAL | | | | | | LAB | | + +---------+ + + + | CO2 | 34 (A) | 19 - 31 mmol/L | EXTERNAL | | | | | | LAB | | + +---------+ + + + | Anion Gap | 11.4 | 7 - 21 mmol/L | EXTERNAL | | | | | | LAB | | + +---------+ + + + | Estimated | 52 | mg/dL | EXTERNAL | | | [...]
--- OUTSIDE RECORDS SUMMARY | ~2019-03-06 | XMS | Encounter Summary ---
Demographics + + + | Address | [address] | | | [place] [address] | + + + | Home Phone | | + + + | Preferred Language | Unknown | + + + | Marital Status | | + + + | Orthodoxy Affiliation | 1041 | + + + | Race | Unknown | + + + | Ethnic Group | Unknown | + + + Author + + + | Author | [facility] | | | and [place] | + + + | Organization | [facility] | | [...] [place], [place] | | | | | [address] | | + + + + + | Rivka Palma | ECON | Unknown | | + + + + + | Geno Kendall | ECON | Unknown | | + + + + + Care Team Providers + +------+ + | Care Beekeeper Name | Role | Phone | + +------+ + | Lorenzo Valdes MD | PCP | | + +------+ + Encounter Details +--------+ + + + + | Date | Type | Department | Care Team | Description | +--------+ + + + + | 05/04/ | Orders Only | [facility] | Conversion | | | 2014 | | NEPHROLOGY [place] | Transaction, | | | | | [address] [facility] | Provider Unknown | | | | | [place] | [phone] | | | | | [address] | | | | | | [phone] | | | +--------+ + + + [...] [place] | | | | | | [address] | | | | | | | [...] [place] | | | | | | [address] | | | | | | | | +--------+ + + + + documented as of this encounter Procedures + +--------+ + + + | Procedure Name | Priori | Date/Time | Associated Diagnosis | Comments | | | ty | | | | + +--------+ + + + | CBC NO DIFFERENTIAL | Routin | 05/04/2014 | | Results for this | | | e | 12:00 AM | | procedure are in the | | | | PST | | results section. | + +--------+ + + + | B TYPE NATRIURETIC | Routin | 05/04/2014 | | Results for this | | PEPTIDE | e | 12:00 AM | | procedure are in the | | | | PST | | results section. | + +--------+ + + + | MAGNESIUM | Routin | 05/04/2014 | | Results for this | | | e | 12:00 AM | | procedure are in the | | | | PST | | results section. | + +--------+ + + + | COMPREHENSIVE | Routin | 05/04/2014 | | Results for this | | METABOLIC PANEL | e | 12:00 AM | | procedure are in the | | | | PST | | results section. | + +--------+ + + + documented in this encounter Results CBC no Differential (05/04/2014 12:00 AM PST) + + + + + + | Component | Value | Ref Range | Performed | Pathologist | | | | | At | Signature | + + + + + + | WBC | 14.3 (A) | 4.5 - 11 10 | EXTERNAL | | | | | | LAB | | + + + + + + | RED CELL | 5.15 (A) | 3.8 - 5.1 10 | EXTERNAL | | | COUNT | | | LAB | | + + + + + + | Hgb | 14.7 | 12 - 16 g/dL | EXTERNAL | | | | | | LAB | | + + + + + + | Hematocrit, | 46.5 (A) | 35 - 45 % | EXTERNAL | | | POC | | | LAB | | + + + + + + | MCV | 90.2 | 81 - 99 fL | EXTERNAL | | | | | | LAB | | + + + + + + | MCH | 29 | 27 - 33 pg | EXTERNAL | | | | | | LAB | | + + + + + + | MCHC | 32 | 30 - 36 g/dL | EXTERNAL | | | | | | LAB | | + + + + + + | RDW-CV | 15 | 10.5 - 15 % | EXTERNAL | | | | | | LAB | | + + + + + + | Platelet | 171 | 140 - 440 K/ L | [...] +---------+ + + B Type Natriuretic Peptide (05/04/2014 12:00 AM PST) + + + + + + | Component | Value | Ref Range | Performed | Pathologist | | | | | At | Signature | + + + + + + | BNP | 2,160 (A) | 0 - 100 pg/mL | EXTERNAL [...] | | + +---------+ + + Magnesium (05/04/2014 12:00 AM PST) + +-------+ + + + | Component | Value | Ref Range | Performed | Pathologist | | | | | At | Signature | + +-------+ + + + | Magnesium | 2 | 1.7 - 2.5 mg/dL | EXTERNAL [...] + +---------+ + + Comprehensive Metabolic Panel (05/04/2014 12:00 AM PST) + +---------+ + + + | Component | Value | Ref Range | Performed | Pathologist | | | | | At | Signature | + +---------+ + + + | Glucose, | 106 (A) | 70 - 100 mg/dL | EXTERNAL | | | Fasting | | | LAB | | + +---------+ + + + | BUN | 25 (A) | 6 - 23 mg/dL | EXTERNAL | | | | | | LAB | | + +---------+ + + + | Creatinine | 1.11 | 0.7 - 1.11 | EXTERNAL | | | | | mg/dL | LAB | | + +---------+ + + + | BUN/Creatin | 22.5 | 6 - 28.6 | EXTERNAL | | | ine Ratio | | | LAB | | + +---------+ + + + | Calcium | 9.8 | 8.4 - 10.2 | EXTERNAL | | | | | mg/dL | LAB | | + +---------+ + + + | Protein, | 7.6 | 6 - 8 g/dL | EXTERNAL | | | Total | | | LAB | | + +---------+ + + + | Albumin | 4.5 | 3.5 - 5 | EXTERNAL | | | | | | LAB | | + +---------+ + + + | Globulin | 3.1 | 1.8 - 3.5 | EXTERNAL | | | | | | LAB | | + +---------+ + + + | A/G Ratio | 1.5 | 1.1 - 2.4 | EXTERNAL | | | | | | LAB | | + +---------+ + + + | Bilirubin | 0.6 | 0 - 1.2 mg/dL | EXTERNAL | | | Total | | | LAB | | + +---------+ + + + | ALP, | 87 | 30 - 128 | EXTERNAL | | | External | | | LAB | | + +---------+ + + + | ALT | 13 | 7 - 52 U/L | EXTERNAL | | | | | | LAB | | + +---------+ + + + | AST | 26 | 13 - 39 U/L | EXTERNAL | | | | | | LAB | | + +---------+ + + + | Na | 137 | 132 - 143 | EXTERNAL | | | | | mmol/L | LAB | | + +---------+ + + + | K | 3.9 | 3.6 - 5.1 | EXTERNAL | | | | | mmol/L | LAB | | + +---------+ + + + | Cl | 101 | 95 - 112 mmol/L | EXTERNAL | | | | | | LAB | | + +---------+ + + + | CO2 | 26 | 19 - 31 mmol/L | EXTERNAL | | | | | | LAB | | + +---------+ + + + | Anion Gap | 13.9 | 7 - 21 mmol/L | EXTERNAL | | | | | | LAB | | + +---------+ + + + | Estimated | 47 (A) | 60 mg/dL | EXTERNAL | [...]
--- OUTSIDE RECORDS SUMMARY | ~2019-03-06 | XMS | Encounter Summary ---
Demographics + + + | Address | [address] | | | [place] [address] | + + + | Home Phone | | + + + | Preferred Language | Unknown | + + + | Marital Status | | + + + | Anabaptism Affiliation | 1041 | + + + | Race | Unknown | + + + | Ethnic Group | Unknown | + + + Author + + + | Author | [facility] | | | and [place] | + + + | Organization | [facility] | | | and [place] | + + + | Address | Unknown | + + + | Phone | Unavailable | + + + Support + + + + + | Name | Relationship | Address | Phone | + + + + + | Alfredo Ireland Jr. | ECON | [address] | | | | | [place], [place] | | | | | [address] | | + + + + + | Rivka Palma | ECON | Unknown | | + + + + + | Geno Kendall | ECON | Unknown | | + + + + + Care Team Providers + +------+ + | Care Measurement Coordinator Name | Role | Phone | + +------+ + | Lorenzo Valdes MD | PCP | | + +------+ + Encounter Details +--------+ + + + + | Date | Type | Department | Care Team | Description | +--------+ + + + + | 04/25/ | Orders Only | [facility] | Conversion | | | 2016 | | NEPHROLOGY [place] | Transaction, | | | | | [address] [facility] | Provider Unknown | | | | | [address] [place], [place] | [phone] | | | | | [address] | | | | | | [phone] | | | +--------+ + + + [...] [place] | | | | | | [address] | | | | | | | [...] [place] | | | | | | [address] | | | | | | | | +--------+ + + + + documented as of this encounter Procedures + +--------+ + + + | Procedure Name | Priori | Date/Time | Associated Diagnosis | Comments | | | ty | | | | + +--------+ + + + | EXTERNAL LAB: CBC | Routin | 04/25/2016 | | Results for this | | | e | 9:18 AM | | procedure are in the | | | | PST | | results section. | + +--------+ + + + | URINALYSIS, | Routin | 04/25/2016 | | Results for this | | MICROSCOPIC ONLY | e | 9:18 AM | | procedure are in the | | | | PST | | results section. | + +--------+ + + + | PROTEIN/CREATININE | Routin | 04/25/2016 | | Results for this | | RATIO, URINE | e | 9:18 AM | | procedure are in the | | | | PST | | results section. | + +--------+ + + + | URIC ACID | Routin | 04/25/2016 | | Results for this | | | e | 9:18 AM | | procedure are in the | | | | PST | | results section. | + +--------+ + + + | PARATHYROID HORMONE, | Routin | 04/25/2016 | | Results for this | | INTACT | e | 9:18 AM | | procedure are in the | | | | PST | | results section. | + +--------+ + + + | RENAL FUNCTION PANEL | Routin | 04/25/2016 | | Results for this | | | e | 9:18 AM | | procedure are in the | | | | PST | | results section. | + +--------+ + + + documented in this encounter Results Protein/Creatinine Ratio, Urine (04/25/2016 9:18 AM PST) + + + + + + | Component | Value | Ref Range | Performed | Pathologist | | | | | At | Signature | + + + + + + | Protein/Cre | 182.3 (A) | 0 - 150 | EXTERNAL [...] | | | + +---------+ + + Urinalysis, Microscopic Only (04/25/2016 9:18 AM PST) + + + + + [...] + + + + + + | Specific | 1.021 | 1.005 - 1.030 | EXTERNAL | | | [place] | | | LAB | | + [...] + + + + | Protein, | Comment: 25 | | EXTERNAL | | | Urine [...] + +---------+ + + External Lab: CBC (04/25/2016 9:18 AM PST) + +-------+ + + + | Component | Value | Ref Range | Performed | Pathologist | | | | | At | Signature | + +-------+ + + + | WBC | 8.0 | 4.5 - 11.0 10 | EXTERNAL | | | | | | LAB | | + +-------+ + + + | RED CELL | 4.85 | 3.5 - 5.1 10 | EXTERNAL | | | COUNT | | | LAB | | + +-------+ + + + | Hgb | 14.3 | 12.0 - 16.0 | EXTERNAL | | | | | g/dL | LAB | | + +-------+ + + + | Hematocrit, | 43.2 | 35 - 45 % | EXTERNAL | | | POC | | | LAB | | + +-------+ + + + | MCV | 89.0 | 81 - 99 fL | EXTERNAL | | | | | | LAB | | + +-------+ + + + | MCH | 29 | 27 - 33 pg | EXTERNAL | | | | | | LAB | | + +-------+ + + + | MCHC | 33 | 30 - 36 g/dL | EXTERNAL | | | | | | LAB | | + +-------+ + + + | Platelet | 199 | 140 - 440 K/ L | EXTERNAL | | | Count | | | LAB | | | Plasma | | | | | + +-------+ + + + | RDW-CV | 14.7 | 10.5 - 15.0 % | EXTERNAL [...] | + +---------+ + + Uric Acid (04/25/2016 9:18 AM PST) + +---------+ + + + | Component | Value | Ref Range | Performed | Pathologist | | | | | At | Signature | + +---------+ + + + | Uric Acid | 9.4 (A) | 2.3 - 6.6 | EXTERNAL [...] + +---------+ + + Parathyroid Hormone, Intact (04/25/2016 9:18 AM PST) + + + + + + | Component | Value | Ref Range | Performed | Pathologist | | | | | At | Signature | + + + + + + | PTH INTACT | 124.7 (A) | 15 - 65 pg/mL | [...] + +---------+ + + Renal Function Panel (04/25/2016 9:18 AM PST) + + + + + + | Component | Value | Ref Range | Performed | Pathologist | | | | | At | Signature | + + + + + + | Glucose, | 163 (A) | 70 - 100 mg/dL | EXTERNAL | | | Fasting | | | LAB | | + + + + + + | BUN | 38 (A) | 6 - 23 mg/dL | EXTERNAL | | | | | | LAB | | + + + + + + | Creatinine | 1.49 (A) | 0.70 - 1.11 | EXTERNAL | | | | | mg/dL | LAB | | + + + + + + | PHOSPHORUS | | mg/dL | EXTERNAL | | | | | | LAB | | + + + + + + | Albumin | 4.0 | 3.5 - 5.0 | EXTERNAL | [...] + + + + | Cl | 101 | 95 - 112 mmol/L | EXTERNAL | | | | | | LAB | | + + + + + + | CO2 | 23 | 19 - 31 mmol/L | EXTERNAL | | | | | | LAB | | + + + + + + | Anion Gap | 19.1 | 7 - 21 mmol/L | EXTERNAL | | | | | | LAB | | + + + + + + | eGFR if not | | | EXTERNAL | | | | | | LAB | | | [facility] | | | | | + + + + + + | Phosphorus, | 3.3 | 2.5 - 5.0 | EXTERNAL | | | Inorganic | | | LAB | | + + + + + + | BUN/Creatin | 25.5 | 6.0 - 28.6 | EXTERNAL | | | ine Ratio | | | LAB | | + + + + + + | Calcium | 9.4 | 8.4 - 10.2 | EXTERNAL | | | | | mg/dL | LAB | | + + + + + + | Estimated | 33 | mg/dL | EXTERNAL | | | [...]
--- OUTSIDE RECORDS SUMMARY | ~2019-03-06 | XMS | Encounter Summary ---
Demographics + + + | Address | [address] | | | [place] [address] | + + + | Home Phone | | + + + | Preferred Language | Unknown | + + + | Marital Status | | + + + | Taoism Affiliation | 1041 | + + + | Race | Unknown | + + + | Ethnic Group | Unknown | + + + Author + + + | Author | [facility] | | | and [place] | + + + | Organization | [facility] | | | [...] [place], [place] | | | | | [address] | | + + + + + | Rivka Palma | ECON | Unknown | | + + + + + | Geno Kendall | ECON | Unknown | | + + + + + Care Team Providers + +------+ + | Care Associate Director Of Sales Name | Role | Phone | + +------+ + | Lorenzo Valdes MD | PCP | | + +------+ + Encounter Details +--------+ + + + + | Date | Type | Department | Care Team | Description | +--------+ + + + + | 09/27/ | Hospital | [facility] | Conversion | Diagnosis unknown | | 2018 | Encounter | CONVERSION [address] | Transaction, | | | | | [address] | Provider Unknown | | | | | [place] | [phone] | | | | | [address] | | | | | | [phone] | | | +--------+ + + + [...] | | | | | | | (HCC) | | | | | | [...] [place] | | | | | | [address] | | | | | | | [...] [place] | | | | | | [address] | | | | | | | | +--------+ + + + + documented as of this encounter Procedures + +--------+ + + + | Procedure Name | Priori | Date/Time | Associated Diagnosis | Comments | | | ty | | | | + +--------+ + + + | CT ABDOMEN PELVIS W | Routin | 09/27/2017 | | Results for this | | CONTRAST | e | 8:24 PM | | procedure are in the | | | | PDT | | results section. | + +--------+ + + + documented in this encounter Results CT Abdomen Pelvis w Contrast (09/27/2017 8:24 PM PDT) + + | Specimen | + + | | + + + + + | Narrative | Performed At | + + + | This is a non-reportable procedure without a radiologist report and | | | is used for image storage only | | + + + + + | Procedure Note | + + | César Hawkins - 11/24/2018 9:14 AM PDT This is a non-reportable procedure | | without a radiologist report and isused for image storage only | + + documented in this encounter Visit Diagnoses + + | Diagnosis | + + | Diagnosis unknown Other unknown and unspecified cause of morbidity or mortality | + + documented in this encounter"
--- OUTSIDE RECORDS SUMMARY | ~2019-03-06 | XMS | Encounter Summary ---
Demographics + + + | Address | [address] | | | [place] [address] | + + + | Home Phone | | + + + | Preferred Language | Unknown | + + + | Marital Status | | + + + | Temple Affiliation | 1041 | + + + [...] [place] | | | | | [address] | | + + + + + | Rivka Palma | ECON | Unknown | | + + + + + | Geno Kendall | ECON | Unknown | | + + + + + Care Team Providers + +------+ + | Care Rubber Molder Name | Role | Phone | + +------+ + | Carmen Schultz MD | PCP | | + +------+ + Reason for Visit +--------+ + | Reason | Comments | +--------+ + | Other | New pt- Cough | +--------+ + Evaluate & Treat (Routine) + +--------+ + + + + | Status | Reason | Specialty | Diagnoses / | Referred By | Referred To | | | | | Procedures | Contact | Contact | + +--------+ + + + + | Authorized | | | Diagnoses | [facility] | Ruy | | | | | Abnormal | C, ANP | Pulmonology | | | | | chest x-ray | [address] | | | | | Pulmonary | [address] | DR JOHANSEN E | | | | | fibrosis, | [place] | [place], [place] | | | | | unspecified | [place], [place] | [address] | | | | | ([facility]LY [facility]) | [address] | Phone: | | | | | | Phone: | [phone] | | | | | | [phone] | Fax: | | | | | | Fax: | [phone] | | | | | | [phone] | | + +--------+ + + + + Encounter Details +--------+---------+ + + + | Date | Type | Department | Care Team | Description | +--------+---------+ + + + | 12/08/ | Office | [facility] | Td Mondragon MD | Moderate persistent | | 2019 | Visit | PULMONOLOGY [address] | asthma, unspecified | | | | [address] | [place], [place] | whether complicated | | | | [place], [place] | [address] | (Primary Dx); | | | | [address] | | Ischemic | | | | [phone] | | cardiomyopathy; | | | | | | Centrilobular | | | | | | emphysema (HCC) | +--------+---------+ + + + Social History + +-------+ +--------+ + | Tobacco Use | Types | Packs/Day | Years | Date | | | | | Used | | + +-------+ +--------+ + | Former Smoker | | 1 | 30 | 6 - 02/17/1986 | + +-------+ +--------+ + [...] + + + | Blood Pressure | 92/54 | 12/08/2018 10:21 AM | | | | | PDT | | + + + + + | Pulse | 72 | 12/08/2018 10:21 AM | | | | | PDT | | + + + + + | Temperature | 36.2 C (97.2 F) | 12/08/2018 10:21 AM | | | | | PDT | | + + + + + | Respiratory Rate | - | - | | + + + + + | Oxygen Saturation | 94% | 12/08/2018 10:21 AM | | | | | PDT | | + + + + + | Inhaled Oxygen | - | - | | | Concentration | | | | + + + + + | Weight | 63.3 kg (139 lb 9.6 | 12/08/2018 10:21 AM | | | | oz) | PDT | | + + + + + | Height | 166.4 cm (5' 5.5") | 12/08/2018 10:21 AM | Per pt | | | | PDT | | + + + + + | Body Mass Index | 22.88 | 12/08/2018 10:21 AM | | | | | PDT | | + + + + + documented in this encounter Progress Notes Td Mondragon MD - 12/08/2018 10:10 AM PDT Subjective: Patient ID: Tamiko Ireland 88 y.o. is here for evaluation of abnormal ct of the chest HPI Patient's medications, allergies, past medical, surgical, social and family histories were obtained and reviewed as appropriate. The patient is a pleasant 88-year-old female with past medical history of ischemic cardiomy opathy status post CABG x5 who has been evaluated by cardiology and electrophysiology and welsh s been managed with cardiac resynchronization therapy. She follows up regularly with them. She has a chronic cough which is progressively getting worse. She has been diagnosed with COPD many years ago. She has been using her Inhalers. She says she does not feel any diffe rence when she uses her Breo or Spiriva. She has been having a lot of cough with expectorat ion. For her symptoms of shortness of breath and her heart rate control she was started on amiodarone. Within couple of days of starting amiodarone her symptoms of shortness of breat h got worse. They responded to amiodarone withdrawal. She was then again challenged and sh e started having symptoms again. Finally the amiodarone was stopped with no plan to stop. W hen his symptoms got worse she was evaluated and there was no increase in the ectopy and it was not felt secondary to cardiac issues. She is never been diagnosed with connective tissue disease. She denies frequent hospitaliz ations or exacerbations of COPD. She does have significant shortness of breath.When she was young she was told she had asthma. She does not recall if she has never been investigated for allergies. She has history of heavy smoking. She states she quit when she was 51. Based on the docum entation last time she quit was 1985. Review of Systems Constitutional: Positive for malaise/fatigue. HENT: Negative. Eyes: Negative. Respiratory: Positive for cough, shortness of breath and wheezing. Cardiovascular: Negative. Gastrointestinal: Negative. Genitourinary: Negative. Musculoskeletal: Positive for back pain. Skin: Negative. Neurological: Negative. Endo/Heme/Allergies: Negative. Psychiatric/Behavioral: Negative. History: Past Medical History: Diagnosis Date Acute kidney injury ([facility]) 09/30/2013 Allergic rhinitis Asthma Bronchiectasis ([facility]) CAD (coronary artery disease) 09/13/2013 s/p CABG x5 (HANSON to mid LAD and distal LAD, SVG to RI, SVG to OM, SVG to PDA) 11/24 Diabetes mellitus, type 2 ([facility]) Diabetes mellitus, type 2 ([facility]) Hypercholesterolemia Hyperlipidemia Hypertension Hypertension Hypokalemia 10/18/2013 Hypothyroidism Hypothyroidism Ischemic cardiomyopathy Left bundle branch block Non-ST elevated myocardial infarction (non-STEMI) ([facility]) 12/08/2013 Osteoarthritis Pneumonia Status post internal cardiac defibrillator procedure S/p [employer] Biv/ICD 02/24 Ventricular premature beats LBBB/left-inferior axis - amio 06/29 - off amio due to CXR changes Past Surgical History: Procedure Laterality Date BLADDER SUSPENSION BLADDER SUSPENSION CARDIAC CATHERIZATION 09/2013 LM nl, LAD 70% ostial, 90% mid, D1 LI, RI 90% ostial, 95% mid, Cx 70% prox-mid, RCA 50% pr ox, EF 25% CARDIOVASCULAR STRESS TEST 05/2014 A2A SPECT: large fixed lateral defect, no ischemia, EF 18% CORONARY ARTERY BYPASS GRAFT 2013 5 vessel CORONARY ARTERY BYPASS GRAFT 12/09/2013 Procedure: CABG - CELSO; Surgeon: Niraj Celis MD; Location: [facility]; Service: [facility]; Laterality: N/A; HIP SURGERY HYSTERECTOMY HYSTERECTOMY partial OTHER SURGICAL HISTORY CATARACT EXTRACTION OTHER SURGICAL HISTORY Left 12/09/2013 INTERNAL MAMMARY ARTERIAL HARVEST - Procedure: INTERNAL MAMMARY ARTERIAL HARVEST; Surgeon : Niraj Celis MD; Location: [facility]; Service: Cardiac; Laterality: Left; OTHER SURGICAL HISTORY Right 12/09/2013 ENDOVASCULAR VEIN HARVEST - Procedure: VEIN - ENDOVASCULAR VEIN HARVEST; Surgeon: Niraj waters MD; Location: [facility]; Service: Cardiac; Laterality: Right; OTHER SURGICAL HISTORY UNLISTED PROCEDURE ARTHROSCOPY - Screws in Right hip OTHER SURGICAL HISTORY HARDWARE PRESENT - screws in right hip PACEMAKER INSERTION 2013 STERNOTOMY 12/09/2013 Procedure: STERNOTOMY; Surgeon: Niraj Celis MD; Location: [facility]; Service: Card iac;; TRANSTHORACIC ECHOCARDIOGRAM 09/2018 EF 20-25%, mild MR, mild TR, mild MI, RVSP 31 Social History Socioeconomic History Marital status: Spouse name: Not on file Number of children: 8 Years of education: Not on file Highest education level: Not on file Social Needs Financial resource strain: Not on file Food insecurity - worry: Not on file Food insecurity - inability: Not on file Transportation needs - medical: Not on file Transportation needs - non-medical: Not on file Occupational History Not on file Tobacco Use Smoking status: Former Smoker Packs/day: 1.00 Years: 30.00 Pack years: 30.00 Start date: 1955 Last attempt to quit: 02/17/1986 Years since quittin.8 Smokeless tobacco: Never Used Substance and Sexual Activity Alcohol use: Yes Comment: Rarely Drug use: Never Comment: Drug use: No Sexual activity: Not on file Other Topics Concern Not on file Social History Narrative She lives in [place]. to Alfredo 1949. 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 Family History Problem Relation Age of Onset Other (see comment) Father ruptured crebral aneurysm/crebral hemorrhage Sudden Father Hypertension Father Other (see comment) Paternal Grandmother ruptured cerebral aneurysms/cerebral hemorrhage Diabetes, NIDDM Paternal Grandmother Heart disease Paternal Grandmother Hypertension Paternal Grandmother Sudden Paternal Grandmother Tuberculosis Mother Other (see comment) Sister ruptured crebral aneurysms Other (see comment) Sister crebral hemorrhage Hypertension Sister Sudden Sister Allergies: Allergies Allergen Reactions Hydromorphone Other (See Comments) Documented in chart that patient went into respiratory distress after receiving 0.5mg of dilaudid. Adhesive & Tape Rash Codeine Itching Furosemide Other (See Comments) All joints ache and sore, tired All joints ache and sore, tired Joint pain Latex Rash Current Medications: Current Outpatient Medications on File Prior to Visit Medication Sig Dispense Refill acetaminophen (TYLENOL) 500 mg tablet Take 500 mg by mouth every 6 hours as needed. albuterol (VENTOLIN HFA) 90 mcg/puff inhaler Inhale 2 puffs into the lungs every 4 hour s as needed for Wheezing. 1 Inhaler 2 aspirin (ADULT ASPIRIN EC LOW STRENGTH) 81 MG EC tablet Take 81 mg by mouth Daily. bumetanide (BUMEX) 1 mg tablet Take 1 mg by mouth Daily. calcium carbonate (TUMS) 500 mg chewable tablet Take 1,250 mg by mouth daily. carvedilol (COREG) 3.125 mg tablet Take 1 tablet by mouth 2 (two) times daily with meal s. carvedilol (COREG) 3.125 mg tablet Take 3.125 mg by mouth 2 times daily (with breakfast & dinner). Cetirizine HCl (ZYRTEC ALLERGY PO) 1 tablet by mouth daily cholecalciferol (VITAMIN D-3) 1,000 units capsule Take 1,000 Units by mouth daily. Coenzyme Q10 (CO Q 10) 100 MG CAPS Take 300 mg by mouth. docusate sodium (COLACE) 100 MG capsule Take 200 mg by mouth. fluticasone (FLONASE) 50 mcg/nasal spray 2 sprays in each nostril daily as needed guaiFENesin (ROBITUSSIN) 100 MG/5ML liquid Take 200 mg by mouth. levothyroxine (SYNTHROID) 88 mcg tablet Take 88 mcg by mouth Daily. lidocaine 4 % patch Place 1-3 patches onto the skin. losartan (COZAAR) 25 mg tablet Take 0.5 tablets by mouth daily. metOLazone 2.5 mg tablet Take 1 tablet by mouth every third day as needed. montelukast (SINGULAIR) 10 mg tablet Take 10 mg by mouth every evening. nitroglycerin (NITROSTAT) 0.[address] 0.4 mg under the tongue every 5 (five) minutes as needed for Chest pain. polyethylene glycol (MIRALAX) packet Take 17 g by mouth. potassium chloride (KLOR-CON) 10 mEq CR tablet Take 1 tablet by mouth 4 (four) times da pita. rosuvastatin (CRESTOR) 20 mg tablet Take 20 mg by mouth nightly. No current facility-administered medications on file prior to visit. Objective: Vitals: 12/08/18 1021 BP: 92/54 Pulse: 72 Temp: 36.2 C (97.2 F) PainSc: 0 - No pain Physical Exam Constitutional: She is oriented to person, place, and time. She appears distressed (mild). HENT: Head: Normocephalic and atraumatic. Mouth/Throat: No oropharyngeal exudate. Eyes: Pupils are equal, round, and reactive to light. Conjunctivae and EOM are normal. Neck: Normal range of motion. Neck supple. No JVD present. No tracheal deviation present. Cardiovascular: Normal rate, regular rhythm and normal heart sounds. No murmur heard. Pulmonary/Chest: She is in respiratory distress. She has no wheezes. She has rales. She exh ibits no tenderness. Abdominal: Soft. Musculoskeletal: Normal range of motion. She exhibits no edema. Neurological: She is alert and oriented to person, place, and time. No cranial nerve defici t. Gait normal. Skin: Skin is warm. Psychiatric: Affect and judgment normal. Echocardiogram 09/27/2018 Left ventricle is moderately dilated with severely impaired systolic function, right ventri cortes is normal CT chest high-resolution 09/27/2017 reviewed Diffuse centrilobular emphysema with underlying pulmonary fibrosis Assessment and plan 1. Moderate persistent asthma, unspecified whether complicated The patient appears to have combination of moderate persistent asthma along with centrilobu lar emphysema. She is been managed with long-acting anticholinergic along with combination of inhaled corticosteroids and beta 2 agonist however she continues to have cough along with expectoration.Due to her advanced age, congestive heart failure I think the inhalers are no t working for her as they do not reach her lungs due to inability to take deep breaths. I w ill start the patient on - budesonide (PULMICORT) 0.25 mg/2 mL nebulizer solution; Take 2 mLs by nebulization 4 times daily. - albuterol-ipratropium 2.5-0.5 mg/3 mL SOLN; one 3 mL vial via nebulization 4 times da pita; MAX 6 doses per 24 hr When she gets her nebulizations she will stop using her current inhalers. 2. Ischemic cardiomyopathy Continue to follow-up with cardiology 3. Centrilobular emphysema (HCC) Please see above Thank you for allowing me to participate in your patient's care. We will review test result s that we have ordered with the patient once they become available. A return visit has been scheduled in 2months. Td Mondragon MD Pulmonary and Critical Care Medicine [address] , [place] [address] documented in this enco unter Plan of Treatment +--------+ + + + + | Date | Type | Specialty | Care Team | Description | +--------+ + + + + | 03/09/ | Office | Cardiology | [place], | | | 2018 | Visit | | MD Lucila WGIGINS | | | | | | [place] | | | | | | [address] | | | | | | | [...] [place] | | | | | | [address] | | | | | | | | +--------+ + + + + documented as of this encounter Visit Diagnoses + + | Diagnosis | + + | Moderate persistent asthma, unspecified whether complicated - Primary | + + | Ischemic cardiomyopathy Other specified forms of chronic ischemic heart disease | + + | Centrilobular emphysema (HCC) | + + documented in this encounter
--- OUTSIDE RECORDS SUMMARY | ~2019-03-06 | XMS | Encounter Summary ---
Demographics + + + | Address | [address] | | | [place] [address] | + + + | Home Phone | | + + + | Preferred Language | Unknown | + + + | Marital Status | | + + + | [employer] Affiliation | 1041 | + + + | Race | Unknown | + + + | Ethnic Group | Unknown | + + + Author + + + | Author | [facility] | | | and [place] | + + + | Organization | [facility] | | | and [place] | + [...] [place], [place] | | | | | [address] | | + + + + + | Rivka Palma | ECON | Unknown | | + + + + + | Geno Kendall | ECON | Unknown | | + + + + + Care Team Providers + +------+ + | Care Single Stroke Preformer Name | Role | Phone | + +------+ + | Lorenzo Valdes MD | PCP | | + +------+ + Encounter Details +--------+ + + + + | Date | Type | Department | Care Team | Description | +--------+ + + + + | 09/10/ | Hospital | [facility] | [place], | CHF (congestive | | 2013 - | Encounter | [facility] | MD Raphael [address] | heart failure) | | | | CARE FLOOR [phone] | (HCC); Pulmonary | | 09/17/ | | [address] | [place] [address] | edema; Elevated | | 2013 | | [place], [place] | [phone] | troponin I level; | | | | [phone] | | Dyspnea; LBBB (left | | | | [phone] | | bundle branch block) | +--------+ + + + + Social [...] documented as of this encounter Discharge Summaries Jaylen Langford MD - 09/16/2013 4:01 PM PDTFormatting of this note might be differ ent from the original. Discharge Summaries by Jaylen Langford MD at 09/16/13 1601 Author: Jaylen Langford MD Service: (none) Author Type: Physician Filed: 09/17/13 1442 Date of Service: 09/16/13 1601 Status: Signed Assembly Supervisor: Jaylen Langford MD (Physician) Related Notes: Original Note by Jaylen Langford MD (Physician) filed at 09/17/13 1005 [facility] Service: Hospitalist Discharge Summary Date of Admission: 09/10/2013 Date of Discharge: Discharge Provider: Jaylen Langford MD Treatment Team: Consulting Physician: Thomas Bynum DO Admitting Provider: Raphael Damon MD Discharge Diagnoses: Principal Problem: *Acute systolic heart failure Active Problems: Essential hypertension, benign DM (diabetes mellitus) SOB (shortness of breath) CHF (congestive heart failure) Troponin level elevated Ischemic cardiomyopathy CAD (coronary artery disease) Resolved Problems: * No resolved hospital problems. * was admitted with shortness of breath, orthopnea, PND, was found to be in acute congestive heart failure. Her troponin levels were also elevated. Echocardiogram showed an EF of less t wilburn 20%. Cardiology was consulted. Dr. Dent performed a cardiac catheterization that showe d triple-vessel disease. Dr. Celis was consulted. Patient underwent a thallium viability s tudy that, unfortunately, did not show any hibernating myocardium. Dr. Celis felt that the patient is not a good surgical candidate and recommended medical management. Dr. Bynum was p [facility]'s regular bar roller, recommended LifeVest before discharge. This morning the patie nt had the LifeVest fitted, and she will be discharged home with good medical therapy. For h er systolic heart failure she is on Coreg, lisinopril 40, Aldactone 25, and torsemide and as pirin. She will follow with cardiology in 2 weeks. BRIEF HISTORY OF PRESENTATION: Tamiko Ireland is a 83 y.o. female who Prescriptions prior to admission Medication Sig Dispense Refill aspirin EC 81 MG EC tablet Take 81 mg by mouth daily with breakfast. budesonide (PULMICORT) 180 MCG/ACT inhaler Inhale 2 puffs into the lungs 2 (two) times daily. Cetirizine HCl 10 MG CAPS Take by mouth. Cholecalciferol 1000 UNITS capsule Take 1,000 Units by mouth daily. FLUTICASONE PROPIONATE, NASAL, NA by Nasal route. GUAIFENESIN 1200 PO Take by mouth. levothyroxine (SYNTHROID) 75 MCG tablet Take 75 mcg by mouth every morning before break fast. metFORMIN (GLUCOPHAGE) 500 MG tablet Take 500 mg by mouth daily. omeprazole (PRILOSEC) 20 MG capsule Take 20 mg by mouth every morning before breakfast. spironolactone (ALDACTONE) 25 MG tablet Take 25 mg by mouth daily. [DISCONTINUED] rosuvastatin (CRESTOR) 10 MG tablet Take 10 mg by mouth nightly. DISCHARGE EXAM Vital Signs: BP 100/58 | Pulse 77 | Temp 98.2 F (36.8 C) (Oral) | Resp 16 | Ht 1.676 m (5' 6") | Wt 73.2 kg (161 lb 6 oz) | BMI 26.06 kg/m2 | SpO2 93% | ? No Physical Exam General Appearance: Alert, cooperative, no distress, appears stated age Lungs: Clear to auscultation bilaterally, respirations unlabored Heart: Regular rate and rhythm, S1 and S2 normal, no murmur, rub or gallop Abdomen: Soft, non-tender, bowel sounds active all four quadrants, no masses, no organomegaly Extremities: trace edema Pulses: 2+ and symmetric all extremities Neurologic: CNII-XII intact, normal strength, sensation and reflexes throughout DATA Lab 09/14/13 0440 09/13/13 0443 09/12/13 0550 09/11/13 1820 WBC 7.3 7.9 8.6 -- HGB 11.7 12.2 12.3 -- HCT 34.6 36.5 37.3 -- PLT 177 198 201 -- NEUTOPHILPCT -- 59.8 60.0 70.4 MONOPCT -- 11.0 10.7 8.8 Lab 09/16/13 0331 09/15/13 0327 09/14/13 0440 NA 139 140 135 K 3.5 4.0 3.5 CL 101 104 101 CO2 29 25 26 BUN 16 17 21 CREATININE 0.95 0.67 0.93 CALCIUM -- -- -- PROT 6.5 6.1* 5.7* BILITOT 0.7 0.5 0.5 ALKPHOS -- -- -- ALT 23 35 28 AST 21 36 23 GLUCOSE -- -- -- Phosphorus: Lab Results Component Value Date PHOS 3.2 09/14/2013 No components found with this basename: LABALBU:3 Lab 09/14/13 0440 09/11/13 0551 MG 1.8 1.9 No results found for this basename: AMYLASE:3 in the last 168 hours No results found for this basename: PHART:3,PO2ART:3,QYA6XOR:3,O5SJLDFR:3,BEART:[address] 168 hours Lab 09/15/13 1710 09/15/13 0957 09/14/13 0440 09/11/13 0150 APTT 30 28 42* -- INR -- -- -- 1.2 PTT -- -- -- -- Lab 09/11/13 0551 TSH 1.62 T3FREE -- FREET4 -- Lab 09/11/13 0551 09/11/13 0005 CKTOTAL 259* 222 TROPONINI 2.47* 1.17* TROPONINT -- -- CKMBINDEX 4.7 3.6 Radiology Xr Chest Pa And Lateral 09/10/2013 1. Cardiomegaly with pulmonary edema and mild to moderate bilateral pleural eff usions. Echo Cardiac Adult Complete 09/11/2013 1. Dilated Cardiomyopathy. LVEDd 59mm, severe global hypokinesis, Grade 3 diasto lic abnormality, LVEF <20%. RV mildly dilated, systolic function abnormal. Mild LAE. RA N ML. 2. Aortic valve sclerotic, mild AI, no . Mitral valve grossly NML, mild MAC, moderate MR. Tricuspid valve grossly NML, moderate TR. Pulmonic valve grossly NML, mild PI. 3. No Pericardial effusion. 4. Moderate Pulmonary HTN, est systolic PAP 52-57mmHg. Echo Cardiac Adult Limited 09/15/2013 1. A limited 2-dimensional transthoracic echocardiogram with limited spectral and color flow Doppler was performed. 2. This was a technically adequate study. 3. Overall le ft ventricular systolic function is severely impaired with, an EF < 20%. Nm Thallium - Hibernating Myocardium 09/15/2013 1. No evidence of hibernating myocardium. 2. Persistent mildly decreased perfu yajaira in the anterior apical area the left ventricle on immediate, 4 hour and 24-hour imaging . 3. Otherwise, uniform perfusion is noted throughout the left ventricle. 4. Left ventricu lar dilatation. Disposition: Home Condition: Stable Code Status: Full Code No discharge procedures on file. Follow up: Jorge Valdes MD [address] [facility] [address] [place] [id number] In 1 week Thomas Bynum DO [address] [place] [address] In 2 weeks Medication List As of 09/16/2013 4:01 PM START taking these medications albuterol 108 (90 BASE) MCG/ACT inhaler QTY: 18 g Refills: 3 Commonly known as: PROVENTIL HFA;VENTOLIN HFA Inhale 2 puffs into the lungs every 4 (four) hours as needed for Wheezing. carvedilol 6.25 MG tablet QTY: 60 tablet Refills: 11 For diagnoses: Heart Failure Commonly known as: COREG Take 1 tablet by mouth 2 (two) times daily with meals. digoxin 0.125 MG tablet QTY: 30 tablet Refills: 11 Commonly known as: LANOXIN Take 1 tablet by mouth daily. lisinopril 40 MG tablet QTY: 30 tablet Refills: 11 Commonly known as: ZESTRIL Take 1 tablet by mouth daily. torsemide 20 MG tablet QTY: 30 tablet Refills: 11 Commonly known as: DEMADEX Take 1 tablet by mouth daily. CHANGE how you take these medications rosuvastatin 20 MG tablet QTY: 30 tablet Refills: 6 Commonly known as: CRESTOR Take 1 tablet by mouth nightly. What changed: - medication strength - dose CONTINUE taking these medications aspirin EC 81 MG EC tablet Refills: 0 budesonide 180 MCG/ACT inhaler Refills: 0 Commonly known as: PULMICORT Cetirizine HCl 10 MG Caps Refills: 0 Cholecalciferol 1000 UNITS capsule Refills: 0 FLUTICASONE PROPIONATE (NASAL) NA Refills: 0 GUAIFENESIN 1200 PO Refills: 0 levothyroxine 75 MCG tablet Refills: 0 Commonly known as: SYNTHROID metFORMIN 500 MG tablet Refills: 0 Commonly known as: GLUCOPHAGE omeprazole 20 MG capsule Refills: 0 Commonly known as: PRILOSEC spironolactone 25 MG tablet Refills: 0 Commonly known as: ALDACTONE STOP taking these medications amoxicillin 875 MG tablet Commonly known as: AMOXIL losartan 100 MG tablet Commonly known as: COZAAR sulfamethoxazole-trimethoprim 800-160 MG per tablet Commonly known as: BACTRIM DS Where to get your medications These are the prescriptions that you need to pick up and delivery driver. You may get these medications from any pharmacy. albuterol 108 (90 BASE) MCG/ACT inhaler carvedilol 6.25 MG tablet digoxin 0.125 MG tablet lisinopril 40 MG tablet rosuvastatin 20 MG tablet torsemide 20 MG tablet Discharge took 35 minutes, to include final examination, discussion of admission, and prepa ration of prescriptions, instructions for on-going care, follow-up and documentation of disc harge summary. Jaylen Langford MD 09/16/2013 4:01 PM documented in this encounter Medications at Time of Discharge [...] | | | | | ([facility]), Bronchitis, | | | | | | | obstructive, chronic | | | | | | | ([facility]) | | | | | | + [...] Progress Notes Conversion Transaction, Provider Unknown - 09/17/2013 1:21 PM PDTFormatting of this note m ight be different from the original. Progress Notes by Iwona Jaramillo RN at 09/17/131320 Author: Iwona Jaramillo RN Service: (none) Author Type: Registered Nurse Filed: 09/17/131321 Date of Service: 09/17/131320 Status: Signed Assembly Supervisor: Iwona Jaramillo RN (Registered Nurse) Pt DC'd home via private vehicle. CHF teaching completed in detail with booklet provided. P atient and family questions answered as they verbalized understanding. IWONA JARAMILLO, RN onver yajaira Transaction, Provider Unknown - 09/16/2013 6:16 PM PDT Progress Notes by Sudha Keller at 09/16/131815 Author: Sudha Keller Service: (none) Author Type: Microsoft Architect Filed: 09/16/131820 Date of Service: 09/16/131815 Status: Signed Assembly Supervisor: Sudha Keller () Follow up with Tamiko and her , Alfredo and their daughters. All of them expressed their jade as their main coping mechanism. When invited, none of them were open to speak about Walt fuller's situation and prognosis. I have a sense that Tamiko may want to talk if the others wer e not present. I will seek that opportunity. They state the plan of care is for Tamiko to ret urn home tomorrow and she is very much looking forward to leaving the hospital and getting b ack home. Chaplain Sudha Keller Jaylen Calixto i, MD - 09/16/2013 4:13 PM PDTFormatting of this note might be different fro m the original. Progress Notes by Jaylen Langford MD at 09/16/13 1613 Author: Jaylen Langford MD Service: (none) Author Type: Physician Filed: 09/16/13 1614 Date of Service: 09/16/13 1613 Status: Signed Assembly Supervisor: Jaylen Langford MD (Physician) [facility] Service: Hospitalist Progress Note Hospital Day: LOS: 6 days SUBJECTIVE Patient Summary: Events Overnight: Patient denies any cp. Reports non productive cough. Reports improv ement in SOA No orthopnea or PND No other complaints Family at bedside Scheduled Medications albuterol 2.5 mg Nebulization 4x Daily aspirin EC 325 mg Oral Daily with breakfast budesonide 2 puff Inhalation BID carvedilol 6.25 mg Oral BID WC digoxin 0.125 mg Oral Daily fluticasone 1 spray Each Nare Daily levothyroxine 75 mcg Oral QAM AC [START ON 09/17/2013] lisinopril 40 mg Oral Daily [COMPLETED] magnesium sulfate 1 g Intravenous Once [COMPLETED] potassium chloride 40 mEq Oral Once rosuvastatin 20 mg Oral Nightly sodium chloride 10 mL Intravenous Q8H spironolactone 25 mg Oral Daily torsemide 20 mg Oral Daily [DISCONTINUED] lisinopril 20 mg Oral Daily Continuous Infusions PRN Medications acetaminophen, acetaminophen, fentaNYL, fentaNYL, guaifenesin-dextromethorphan, heparin (po rcine), heparin (porcine), levalbuterol, morphine, morphine, morphine, nitroGLYCERIN, ondans etron, ondansetron, polyethylene glycol, zolpidem OBJECTIVE Vital Signs: BP 100/58 | Pulse 77 | Temp 98.2 F (36.8 C) (Oral) | Resp 16 | Ht 1.676 m (5' 6") | Wt 73.2 kg (161 lb 6 oz) | BMI 26.06 kg/m2 | SpO2 93% | ? No Physical Exam General Appearance: Alert, cooperative, no distress, appears stated age Lungs: Clear to auscultation bilaterally, respirations unlabored Heart: Regular rate and rhythm, S1 and S2 normal, no murmur, rub or gallop Abdomen: Soft, non-tender, bowel sounds active all four quadrants, no masses, no organomegaly Extremities: + edema Pulses: 2+ and symmetric all extremities Neurologic: CNII-XII intact, normal strength, sensation and reflexes throughout DATA Lab 09/14/13 0440 09/13/13 0443 09/12/13 0550 09/11/13 1820 WBC 7.3 7.9 8.6 -- HGB 11.7 12.2 12.3 -- HCT 34.6 36.5 37.3 -- PLT 177 198 201 -- NEUTOPHILPCT -- 59.8 60.0 70.4 MONOPCT -- 11.0 10.7 8.8 Lab 09/16/13 0331 09/15/13 0327 09/14/13 0440 NA 139 140 135 K 3.5 4.0 3.5 CL 101 104 101 CO2 29 25 26 BUN 16 17 21 CREATININE 0.95 0.67 0.93 CALCIUM -- -- -- PROT 6.5 6.1* 5.7* BILITOT 0.7 0.5 0.5 ALKPHOS -- -- -- ALT 23 35 28 AST 21 36 23 GLUCOSE -- -- -- Phosphorus: Lab Results Component Value Date PHOS 3.2 09/14/2013 No components found with this basename: LABALBU:3 Lab 09/14/13 0440 09/11/13 0551 MG 1.8 1.9 No results found for this basename: AMYLASE:3 in the last 168 hours No results found for this basename: PHART:3,PO2ART:3,AQV7GQO:3,C0AHKIMF:3,BEART:[address] 168 hours Lab 09/15/13 1710 09/15/13 0957 09/14/13 0440 09/11/13 0150 APTT 30 28 42* -- INR -- -- -- 1.2 PTT -- -- -- -- Lab 09/11/13 0551 TSH 1.62 T3FREE -- FREET4 -- Lab 09/11/13 0551 09/11/13 0005 CKTOTAL 259* 222 TROPONINI 2.47* 1.17* TROPONINT -- -- CKMBINDEX 4.7 3.6 Radiology Xr Chest Pa And Lateral 09/10/2013 1. Cardiomegaly with pulmonary edema and mild to moderate bilateral pleural eff usions. Echo Cardiac Adult Complete 09/11/2013 1. Dilated Cardiomyopathy. LVEDd 59mm, severe global hypokinesis, Grade 3 diasto lic abnormality, LVEF <20%. RV mildly dilated, systolic function abnormal. Mild LAE. RA N ML. 2. Aortic valve sclerotic, mild AI, no . Mitral valve grossly NML, mild MAC, moderate MR. Tricuspid valve grossly NML, moderate TR. Pulmonic valve grossly NML, mild PI. 3. No Pericardial effusion. 4. Moderate Pulmonary HTN, est systolic PAP 52-57mmHg. PROBLEM LIST Principal Problem: *Acute systolic heart failure Active Problems: Essential hypertension, benign DM (diabetes mellitus) SOB (shortness of breath) CHF (congestive heart failure) Troponin level elevated Ischemic cardiomyopathy CAD (coronary artery disease) ASSESSMENT & PLAN 1. Acute systolic heart failure sec to Ischemic cardiomyopathy Significantly improved.No mo re SOA or orthopnea or PND Ejection fraction is less than 20%. Continue Coreg. I stopped her losartan and switched over to [id number] mg. Continue Aldactone 25 mg daily. Not a suitab le candidate for CABG 2. Coronary artery disease. Continue aspirin, beta-homar, statin, SAAD inhibitors. 3. Asthma. Continue Pulmicort. Add albuterol and dexamethasone. 4. Deep venous thrombosis prophylaxis: Lovenox. 5. Plan to D/c home shannen after the life vest is fitted Code Status: Full Code Jaylen Langford MD 09/16/2013 4:13 PM onversion Tr ansaction, Provider Unknown - 09/16/2013 3:44 PM PDTFormatting of this note might be differ ent from the original. Case Management by Stefano Brewer MS, POWER MACHINE OPERATOR at 09/16/13 6648 Author: Stefano Brewer MS, POWER MACHINE OPERATOR Service: (none) Author Type: New Accounts Representative Filed: 09/16/13 1543 Date of Service: 09/16/13 154 Status: Signed Assembly Supervisor: Stefano Brewer MS, POWER MACHINE OPERATOR (New Accounts Representative) Discharge planning: CM followed up re: the ZOLL LifeVest. Per Hiren, Client Experience Administrator , he reports that Alba, a client service supervisor will fit pt for the vest y 8 am. Anticipated d/c date is Thursday. onver yajaira Transaction, Provider Unknown - 09/16/2013 11:59 AM PDT Progress Notes by Lorenzo Mosley RRT at 09/16/13 2723 Author: Lorenzo Mosley RRT Service: (none) Author Type: Registered Respiratory Therap ist Filed: 09/16/13 1200 Date of Service: 09/16/13 4804 Status: Signed Assembly Supervisor: Lorenzo Mosley RRT (Registered Respiratory Therapist) [facility] Department of Respiratory Jail Oxygen Evaluation (Evaluation is valid for 48 hours once completed) Date: 09/16/2013 RT: LORENZO MOSLEY Time: 12:00 PM Home O2 Eval at rest-Part 1 Is the patient's SpO2 88% or lower at rest & breathing room air? : No SpO2 at rest & breathing room air: 92 percent Home O2 Eval during exercise-Part 2 Is the patient's SpO2 88% or lower during exercise & breathing room air? : No SpO2 during exercise & breathing room air : 90 percent Home O2 Eval Comment Eval Comment: Pt stopped to rest several times with SOB noted but no episodes of desaturati on HOME OXYGEN PROVIDER PREFERENCE PHONE FAX *NOTE* Provider must include liter flow, route of oxygen administration, frequency of use w ith duration of need in months on the prescription AND document patient s diagnosis. OXYGEN PRN IS NOT A VALID ORDER Physician Signature: Date: Time: onralph szymanskion Transaction, Provider Unknown - 09/16/2013 11:26 AM PDT Case Management by Stefano Brewer MS POWER MACHINE OPERATOR at 09/16/13 1126 Author: Stefano Brewer MS POWER MACHINE OPERATOR Service: (none) Author Type: New Accounts Representative Filed: 09/16/13 112 Date of Service: 09/16/131125 Status: Addendum Assembly Supervisor: Stefano Brewer MS POWER MACHINE OPERATOR (New Accounts Representative) Related Notes: Original Note by Stefano Brewer MS POWER MACHINE OPERATOR (New Accounts Representative) filed at 09/16/13 1127 Disposition: Return to home Transportation:private All orders, signed AVS, and prescriptions have been faxed- n/a All DC paperwork completed - RN to coordinate d/c orders when available Patient and family in agreement with discharge Medicare important message signed and copy in chart Stefano Brewer Jaylen Calixto i, MD - 09/15/2013 2:49 PM PDTFormatting of this note might be different fro m the original. Progress Notes by Jaylen Langford MD at 09/15/13 1432 Author: Jaylen Langford MD Service: (none) Author Type: Physician Filed: 09/15/13 0774 Date of Service: 09/15/13 5059 Status: Addendum Assembly Supervisor: Jaylen Langford MD (Physician) Related Notes: Original Note by Jaylen Langford MD (Physician) filed at 09/15/13 9424 [facility] Service: Hospitalist Progress Note Hospital Day: LOS: 5 days SUBJECTIVE Patient Summary: Events Overnight: Patient denies any cp. Reports non productive cough. Reports improv ement in SOA No orthopnea or PND No other complaints Daughters at bedside Scheduled Medications albuterol 2.5 mg Nebulization 4x Daily aspirin EC 325 mg Oral Daily with breakfast budesonide 2 puff Inhalation BID carvedilol 6.25 mg Oral BID WC digoxin 0.125 mg Oral Daily fluticasone 1 spray Each Nare Daily levothyroxine 75 mcg Oral QAM AC lisinopril 20 mg Oral Daily rosuvastatin 20 mg Oral Nightly sodium chloride 10 mL Intravenous Q8H spironolactone 25 mg Oral Daily torsemide 20 mg Oral Daily Continuous Infusions heparin 50 units/mL in Dextrose 5% 13 Units/kg/hr (09/15/13 1104) [DISCONTINUED] sodium chloride 75 mL/hr at 09/14/13 0810 PRN Medications acetaminophen, acetaminophen, fentaNYL, fentaNYL, guaifenesin-dextromethorphan, heparin (po rcine), heparin (porcine), levalbuterol, morphine, morphine, morphine, nitroGLYCERIN, ondans etron, ondansetron, polyethylene glycol, zolpidem OBJECTIVE Vital Signs: BP 121/27 | Pulse 85 | Temp 98.1 F (36.7 C) (Oral) | Resp 20 | Ht 1.676 m (5' 6") | Wt 73 kg (160 lb 15 oz) | BMI 25.99 kg/m2 | SpO2 92% | ? No Physical Exam General Appearance: Alert, cooperative, no distress, appears stated age Lungs: Clear to auscultation bilaterally, respirations unlabored Heart: Regular rate and rhythm, S1 and S2 normal, no murmur, rub or gallop Abdomen: Soft, non-tender, bowel sounds active all four quadrants, no masses, no organomegaly Extremities: + edema Pulses: 2+ and symmetric all extremities Neurologic: CNII-XII intact, normal strength, sensation and reflexes throughout DATA Lab 09/14/13 0440 09/13/13 0443 09/12/13 0550 09/11/13 1820 WBC 7.3 7.9 8.6 -- HGB 11.7 12.2 12.3 -- HCT 34.6 36.5 37.3 -- PLT 177 198 201 -- NEUTOPHILPCT -- 59.8 60.0 70.4 MONOPCT -- 11.0 10.7 8.8 Lab 09/15/13 0327 09/14/13 0440 09/13/13 0443 NA 140 135 135 K 4.0 3.5 3.4* CL 104 101 101 CO2 25 26 26 BUN 17 21 29* CREATININE 0.67 0.93 0.94 CALCIUM -- -- -- PROT 6.1* 5.7* 5.8* BILITOT 0.5 0.5 0.6 ALKPHOS -- -- -- ALT 35 28 35 AST 36 23 30 GLUCOSE -- -- -- Phosphorus: Lab Results Component Value Date PHOS 3.2 09/14/2013 No components found with this basename: LABALBU:3 Lab 09/14/13 0440 09/11/13 0551 MG 1.8 1.9 No results found for this basename: AMYLASE:3 in the last 168 hours No results found for this basename: PHART:3,PO2ART:3,QZO6YVC:3,A4MXDBEA:3,BEART:[address] 168 hours Lab 09/15/13 0957 09/14/13 0440 09/13/13 0443 09/11/13 0150 APTT 28 42* 45* -- INR -- -- -- 1.2 PTT -- -- -- -- Lab 09/11/13 0551 TSH 1.62 T3FREE -- FREET4 -- Lab 09/11/13 0551 09/11/13 0005 CKTOTAL 259* 222 TROPONINI 2.47* 1.17* TROPONINT -- -- CKMBINDEX 4.7 3.6 Radiology Xr Chest Pa And Lateral 09/10/2013 1. Cardiomegaly with pulmonary edema and mild to moderate bilateral pleural eff usions. Echo Cardiac Adult Complete 09/11/2013 1. Dilated Cardiomyopathy. LVEDd 59mm, severe global hypokinesis, Grade 3 diasto lic abnormality, LVEF <20%. RV mildly dilated, systolic function abnormal. Mild LAE. RA N ML. 2. Aortic valve sclerotic, mild AI, no . Mitral valve grossly NML, mild MAC, moderate MR. Tricuspid valve grossly NML, moderate TR. Pulmonic valve grossly NML, mild PI. 3. No Pericardial effusion. 4. Moderate Pulmonary HTN, est systolic PAP 52-57mmHg. PROBLEM LIST Principal Problem: *Acute systolic heart failure Active Problems: Essential hypertension, benign DM (diabetes mellitus) SOB (shortness of breath) CHF (congestive heart failure) Troponin level elevated Ischemic cardiomyopathy CAD (coronary artery disease) ASSESSMENT & PLAN 1. Acute systolic heart failure sec to Ischemic cardiomyopathy significantly improved. Eje ction fraction is less than 20%. Continue Coreg. I stopped her losartan and switched over to lisinopril 20 mg. Continue Aldactone [address] Celis was consulted for bypass gracia vivek Plan to repeat echo today . D/C heparin 2. Coronary artery disease. Continue aspirin, beta-homar, statin, SAAD inhibitors. 3. Asthma. Continue Pulmicort. Add albuterol and dexamethasone. 4. Deep venous thrombosis prophylaxis: Lovenox. Code Status: Full Code Jaylen Langford MD 09/15/2013 2:50 PM onversion Tr ansaction, Provider Unknown - 09/15/2013 12:32 PM PDTFormatting of this note might be differ ent from the original. Progress Notes by Nikky Beatty RN at 09/15/13 1232 Author: Nikky Beatty RN Service: (none) Author Type: Registered Nurse Filed: 09/15/13 1233 Date of Service: 09/15/13 1232 Status: Signed Assembly Supervisor: Nikky Beatty RN (Registered Nurse) Patient and family present. Gave information to them regarding GPS. Patient consented to en rollment in GPS program. Jaylen Calixto i, MD - 09/14/2013 2:59 PM PDTFormatting of this note might be different fro m the original. Progress Notes by Jaylen Langford MD at 09/14/13 8414 Author: Jaylen Langford MD Service: (none) Author Type: Physician Filed: 09/15/13 5661 Date of Service: 09/14/131458 Status: Addendum Assembly Supervisor: Jaylen Langford MD (Physician) Related Notes: Original Note by Jaylen Langford MD (Physician) filed at 09/14/13 1501 [facility] Service: Hospitalist Progress Note Hospital Day: LOS: 4 days SUBJECTIVE Patient Summary: Events Overnight: Patient denies any cp. Reports non productive cough. Reports improv ement in SOA No nausea or vomiting. No other complaints Daughters at bedside Scheduled Medications albuterol 2.5 mg Nebulization 4x Daily aspirin EC 325 mg Oral Daily with breakfast budesonide 2 puff Inhalation BID carvedilol 6.25 mg Oral BID WC digoxin 0.125 mg Oral Daily fluticasone 1 spray Each Nare Daily levothyroxine 75 mcg Oral QAM AC lisinopril 20 mg Oral Daily rosuvastatin 20 mg Oral Nightly sodium chloride 10 mL Intravenous Q8H spironolactone 25 mg Oral Daily torsemide 20 mg Oral Daily [DISCONTINUED] bumetanide 2 mg Intravenous BID [DISCONTINUED] famotidine 20 mg Intravenous Daily [DISCONTINUED] famotidine 20 mg Oral Daily Continuous Infusions heparin 50 units/mL in Dextrose 5% 10.69 Units/kg/hr (09/13/13 2136) [] sodium chloride 75 mL/hr at 09/13/13 0928 [DISCONTINUED] sodium chloride 75 mL/hr at 09/14/13 0810 PRN Medications acetaminophen, acetaminophen, fentaNYL, fentaNYL, guaifenesin-dextromethorphan, heparin (po rcine), heparin (porcine), levalbuterol, morphine, morphine, morphine, nitroGLYCERIN, ondans etron, ondansetron, polyethylene glycol, zolpidem OBJECTIVE Vital Signs: BP 94/54 | Pulse 72 | Temp 97.7 F (36.5 C) (Oral) | Resp 16 | Ht 1.676 m (5' 6") | Wt 7 3 kg (160 lb 15 oz) | BMI 25.99 kg/m2 | SpO2 97% | ? No Physical Exam General Appearance: Alert, cooperative, no distress, appears stated age Lungs: Clear to auscultation bilaterally, respirations unlabored Heart: Regular rate and rhythm, S1 and S2 normal, no murmur, rub or gallop Abdomen: Soft, non-tender, bowel sounds active all four quadrants, no masses, no organomegaly Extremities: + edema Pulses: 2+ and symmetric all extremities Neurologic: CNII-XII intact, normal strength, sensation and reflexes throughout DATA Lab 09/14/1343909/13/1344209/12/13 0550 09/11/13 1820 WBC 7.3 7.9 8.6 -- HGB 11.7 12.2 12.3 -- HCT 34.6 36.5 37.3 -- PLT 177 198 201 -- NEUTOPHILPCT -- 59.8 60.0 70.4 MONOPCT -- 11.0 10.7 8.8 Lab 09/14/1343909/13/1344209/12/13 1855 NA 135 135 133* K 3.5 3.4* 3.4* CL 101 101 99 CO2 26 26 25 BUN 21 29* 35* CREATININE 0.93 0.94 1.23* CALCIUM -- -- -- PROT 5.7* 5.8* 6.2* BILITOT 0.5 0.6 0.5 ALKPHOS -- -- -- ALT 28 35 40 AST 23 30 37 GLUCOSE -- -- -- Phosphorus: Lab Results Component Value Date PHOS 3.2 09/14/2013 No components found with this basename: LABALBU:3 Lab 09/14/1343909/11/13 0551 MG 1.8 1.9 No results found for this basename: AMYLASE:3 in the last 168 hours No results found for this basename: PHART:3,PO2ART:3,YLZ7VLB:3,R0PBAQME:3,BEART:[address] 168 hours Lab 09/14/13 04409/13/1344209/13/13 0029 09/11/13 0150 APTT 42* 45* 46* -- INR -- -- -- 1.2 PTT -- -- -- -- Lab 09/11/13 0551 TSH 1.62 T3FREE -- FREET4 -- Lab 09/11/13 0551 09/11/13 0005 CKTOTAL 259* 222 TROPONINI 2.47* 1.17* TROPONINT -- -- CKMBINDEX 4.7 3.6 Radiology Xr Chest Pa And Lateral 09/10/2013 1. Cardiomegaly with pulmonary edema and mild to moderate bilateral pleural eff usions. Echo Cardiac Adult Complete 09/11/2013 1. Dilated Cardiomyopathy. LVEDd 59mm, severe global hypokinesis, Grade 3 diasto lic abnormality, LVEF <20%. RV mildly dilated, systolic function abnormal. Mild LAE. RA N ML. 2. Aortic valve sclerotic, mild AI, no . Mitral valve grossly NML, mild MAC, moderate MR. Tricuspid valve grossly NML, moderate TR. Pulmonic valve grossly NML, mild PI. 3. No Pericardial effusion. 4. Moderate Pulmonary HTN, est systolic PAP 52-57mmHg. PROBLEM LIST Principal Problem: *Acute systolic heart failure Active Problems: Essential hypertension, benign DM (diabetes mellitus) SOB (shortness of breath) CHF (congestive heart failure) Troponin level elevated Ischemic cardiomyopathy CAD (coronary artery disease) ASSESSMENT & PLAN 1. Acute systolic heart failure sec to Ischemic cardiomyopathy significantly improved. Eje ction fraction is less than 20%. Continue Coreg. I stopped her losartan and switched over to lisinopril 20 mg. Continue Aldactone [address] Celis was consulted for bypass gracia vivek. He recommended viability study and depending on the results of that, he will decide wh ether the patient will get CABG. 2. Coronary artery disease. Continue aspirin, beta-homar, statin, SAAD inhibitors. 3. Asthma. Continue Pulmicort. Add albuterol and dexamethasone. 4. Deep venous thrombosis prophylaxis: Lovenox. Code Status: Full Code Jaylen Langford MD 09/14/2013 2:59 PM onversion Tr anssamantha, Provider Unknown - 09/14/2013 9:58 AM PDTFormatting of this note might be differ ent from the original. Progress Notes by Piter Villa at 09/14/13 0958 Author: Piter Villa Service: (none) Author Type: (none) Filed: 09/14/13 1000 Date of Service: 09/14/13 0958 Status: Signed Assembly Supervisor: Piter Villa ([employer] Architect) Follow-up support offered for Tamiko and her family. Alfredo present and two daughters. Tamiko expressed feeling hopeful about today. Prayer offered and received with Tamiko and unique lema participating giving thanks for the gift of life, family, and the care they have receive d here at [facility]. CP staff remains available should any needs arise. CP YANG Gale Jaylen Calixto i, MD - 09/13/2013 3:48 PM PDTFormatting of this note might be different fro m the original. Progress Notes by Jaylen Langford MD at 09/13/13 1548 Author: Jaylen Langford MD Service: (none) Author Type: Physician Filed: 09/14/13 1401 Date of Service: 09/13/13 1548 Status: Signed Assembly Supervisor: Jaylen Langford MD (Physician) Related Notes: Original Note by Jaylen Langford MD (Physician) filed at 09/13/13 1553 [facility] Service: Hospitalist Progress Note Hospital Day: LOS: 3 days SUBJECTIVE Patient Summary: Events Overnight: Patient denies any cp. Reports non productive cough. Reports improv ement in SOA No nausea or vomiting. Had angiogram and is feeling tired. Scheduled Medications albuterol 2.5 mg Nebulization 4x Daily aspirin EC 325 mg Oral Daily with breakfast budesonide 2 puff Inhalation BID bumetanide 2 mg Intravenous BID carvedilol 6.25 mg Oral BID WC digoxin 0.125 mg Oral Daily famotidine 20 mg Oral Daily Or famotidine 20 mg Intravenous Daily fluticasone 1 spray Each Nare Daily [COMPLETED] heparin (porcine) levothyroxine 75 mcg Oral QAM AC lisinopril 20 mg Oral Daily [COMPLETED] nitroGLYCERIN rosuvastatin 20 mg Oral Nightly sodium chloride 10 mL Intravenous Q8H spironolactone 25 mg Oral Daily [COMPLETED] verapamil [DISCONTINUED] losartan 50 mg Oral Daily [DISCONTINUED] spironolactone 25 mg Oral Daily Continuous Infusions heparin 50 units/mL in Dextrose 5% 11 Units/kg/hr (09/13/13 0531) sodium chloride 75 mL/hr at 09/13/13 0531 sodium chloride 75 mL/hr at 09/13/13 0928 PRN Medications acetaminophen, acetaminophen, fentaNYL, fentaNYL, guaifenesin-dextromethorphan, heparin (po rcine), heparin (porcine), [COMPLETED] iopamidol, levalbuterol, [COMPLETED] lidocaine, morph ine, morphine, morphine, nitroGLYCERIN, ondansetron, ondansetron, polyethylene glycol, [COMP LETED] sodium bicarbonate buffer, zolpidem, [DISCONTINUED] acetaminophen, [DISCONTINUED] saad taminophen, [DISCONTINUED] adenosine in NS 24 mcg/mL, [DISCONTINUED] ondansetron [DISCONTINUED] ondansetron, [DISCONTINUED] polyethylene glycol OBJECTIVE Vital Signs: BP 100/49 | Pulse 68 | Temp 97.9 F (36.6 C) (Oral) | Resp 16 | Ht 1.676 m (5' 6") | Wt 72 kg (158 lb 11.7 oz) | BMI 25.63 kg/m2 | SpO2 96% | ? No Physical Exam General Appearance: Alert, cooperative, no distress, appears stated age Lungs: Clear to auscultation bilaterally, respirations unlabored Heart: Regular rate and rhythm, S1 and S2 normal, no murmur, rub or gallop Abdomen: Soft, non-tender, bowel sounds active all four quadrants, no masses, no organomegaly Extremities: Extremities normal, atraumatic, no cyanosis or edema Pulses: 2+ and symmetric all extremities Neurologic: CNII-XII intact, normal strength, sensation and reflexes throughout DATA Lab 09/13/13 0443 09/12/13 0550 09/11/13 1820 WBC 7.9 8.6 9.7 HGB 12.2 12.3 12.8 HCT 36.5 37.3 38.8 PLT 198 201 219 NEUTOPHILPCT 59.8 60.0 70.4 MONOPCT 11.0 10.7 8.8 Lab 09/13/13 0443 09/12/13 185409/12/13 1150 NA 135 133* 134* K 3.4* 3.4* 3.7 CL 101 99 100 CO2 26 25 24 BUN 29* 35* 35* CREATININE 0.94 1.23* 1.20* CALCIUM -- -- -- PROT 5.8* 6.2* 6.3 BILITOT 0.6 0.5 0.5 ALKPHOS -- -- -- ALT 35 40 42 AST 30 37 39 GLUCOSE -- -- -- Phosphorus: Lab Results Component Value Date PHOS 4.6 09/11/2013 No components found with this basename: LABALBU:3 Lab 09/11/13 0551 MG 1.9 No results found for this basename: AMYLASE:3 in the last 168 hours No results found for this basename: PHART:3,PO2ART:3,FGQ7EBU:3,E3LUDUTR:3,BEART:[address] 168 hours Lab 09/13/13 0443 09/13/13 0029 09/12/13 1855 09/11/13 0150 APTT 45* 46* 42* -- INR -- -- -- 1.2 PTT -- -- -- -- Lab 09/11/13 0551 TSH 1.62 T3FREE -- FREET4 -- Lab 09/11/13 0551 09/11/13 0005 CKTOTAL 259* 222 TROPONINI 2.47* 1.17* TROPONINT -- -- CKMBINDEX 4.7 3.6 Radiology Xr Chest Pa And Lateral 09/10/2013 1. Cardiomegaly with pulmonary edema and mild to moderate bilateral pleural eff usions. Echo Cardiac Adult Complete 09/11/2013 1. Dilated Cardiomyopathy. LVEDd 59mm, severe global hypokinesis, Grade 3 diasto lic abnormality, LVEF <20%. RV mildly dilated, systolic function abnormal. Mild LAE. RA N ML. 2. Aortic valve sclerotic, mild AI, no . Mitral valve grossly NML, mild MAC, moderate MR. Tricuspid valve grossly NML, moderate TR. Pulmonic valve grossly NML, mild PI. 3. No Pericardial effusion. 4. Moderate Pulmonary HTN, est systolic PAP 52-57mmHg. PROBLEM LIST Principal Problem: *Acute systolic heart failure Active Problems: Essential hypertension, benign DM (diabetes mellitus) SOB (shortness of breath) CHF (congestive heart failure) Troponin level elevated Ischemic cardiomyopathy CAD (coronary artery disease) ASSESSMENT & PLAN 1. Acute systolic heart failure, significantly improved. Ejection fraction is less than 20% . Continue Coreg. I stopped her losartan and switched over to lisinopril 20 mg. Continue Ald actone 25 mg daily. The patient underwent angiogram today and report is still pending but it appears that the patient had significant coronary artery disease. Dr. Celis was consulted for bypass surgery. He recommended viability study and depending on the results of that, he will decide whether the patient is a candidate for bypass surgery or not. 2. Coronary artery disease. Continue aspirin, beta-homar, statin, SAAD inhibitors. 3. Asthma. Continue Pulmicort. Add albuterol and dexamethasone. 4. Deep venous thrombosis prophylaxis: Lovenox. Code Status: Full Code Jaylen Langford MD 09/13/2013 3:51 PM onversion Tr ansaction, Provider Unknown - 09/13/2013 8:13 AM PDTFormatting of this note might be differ ent from the original. Progress Notes by Stanley Jason RN at 09/13/13812 Author: Stanley Jason RN Service: (none) Author Type: Registered Nurse Filed: 09/13/13812 Date of Service: 09/13/13812 Status: Signed Assembly Supervisor: Stanley Jason RN (Registered Nurse) [employer] called, coming to get pt. Family notified, pt able to talk to daughter & b efore transfer to photo lab specialist. Stanley Jason RN onver yajaira Transaction, Provider Unknown - 09/12/2013 4:42 PM PDT Nurse Progress Note by Lui Bautista RN at 09/12/131641 Author: Lui Bautista RN Service: (none) Author Type: Registered Nurse Filed: 09/12/13 1640 Date of Service: 09/12/131641 Status: Signed Assembly Supervisor: Lui Bautista RN (Registered Nurse) Pt's BP 87/44, pt is asymptomatic, Dr. Augustin notified orders to hold bumex and coreg due at this time. WIll continue to monitor. Umm Krishna MD - 09/12/2013 2:34 PM PDT Progress Notes by Umm Augustin MD at 09/12/13 1435 Author: Umm Augustin MD Service: (none) Author Type: Physician Filed: 09/12/13 1441 Date of Service: 09/12/13 143 Status: Signed Assembly Supervisor: Umm Augustin MD (Physician) [facility] Service: Hospitalist Progress Note Hospital Day: LOS: 2 days SUBJECTIVE HPI: Dr. Damon "The patient is a 83 y.o. female with significant past medical histor y of Hypertension, asthma, hyperlipidemia, DM who presents with SOB," at [facility], with a history of tobacco abuse 1 pack per hay. Her SOB started last March, with lower extrem ity edema. She sleep in a recliner, and has dyspnea with minimal activity. She was placed on inhalers for wheezing with no improvement. She denies fever/ or chills, but does experience some night sweats and positive paroxysmal nocturnal dyspnea. Per family members she was carmen d by PCP that there were some EKG changes in the last appt with a BNP of 3670. Chest x-ray s hows cardiomegaly with moderate vascular congestion and some alveolar filling patterns, and some mild small pleural effusions. First set of cardiac enzymes is 0.54 which is exactly the same as from [facility]. 09/11 & 05/27--Pt. Has no hx of CHF, CHD, RHD, syncope, or hx of TIA/CVA. She is long standing DM. Overnight, she continues with SOB ciro. On any exertion. Difficulties sleeping ciro. If l aying flat. Taking PO's Denies CP, nausea or vomiting. Cards consult, Dr. Bynum on board. Family's daughters have requested a physician assistant visit for Alfredo--father. Heart rate <100. Scheduled Medications aspirin EC 325 mg Oral Daily with breakfast budesonide 2 puff Inhalation BID bumetanide 2 mg Intravenous BID carvedilol 6.25 mg Oral BID WC digoxin 0.125 mg Oral Daily famotidine 20 mg Oral Daily Or famotidine 20 mg Intravenous Daily levothyroxine 75 mcg Oral QAM AC losartan 50 mg Oral Daily rosuvastatin 20 mg Oral Nightly sodium chloride 10 mL Intravenous Q8H spironolactone 25 mg Oral Daily [DISCONTINUED] carvedilol 3.125 mg Oral BID WC [DISCONTINUED] losartan 100 mg Oral Daily [DISCONTINUED] nitroGLYCERIN 1 inch Topical Q6H Continuous Infusions heparin 50 units/mL in Dextrose 5% 11 Units/kg/hr (09/12/13 1233) [START ON 09/13/2013] sodium chloride PRN Medications acetaminophen, acetaminophen, heparin (porcine), heparin (porcine), levalbuterol, morphine, morphine, morphine, ondansetron, ondansetron, polyethylene glycol OBJECTIVE Vital Signs: BP 102/60 | Pulse 81 | Temp 98.1 F (36.7 C) (Oral) | Resp 16 | Ht 1.676 m (5' 6") | Wt 72 kg (158 lb 11.7 oz) | BMI 25.63 kg/m2 | SpO2 96% | ? No Patient Vitals for the past 24 hrs: BP Temp Temp src Pulse Resp SpO2 Weight 09/12/13 1151 102/60 mmHg 98.1 F (36.7 C) Oral 81 16 - - 09/12/13 0713 127/58 mmHg 97.3 F (36.3 C) Oral 82 16 96 % - 09/12/13 0313 112/66 mmHg 96.6 F (35.9 C) Temporal 70 16 95 % 72 kg (158 lb 11.7 oz) 09/11/13 2311 117/78 mmHg 96.3 F (35.7 C) Temporal 84 18 94 % - 09/11/13 1932 111/68 mmHg 98.1 F (36.7 C) Oral 90 18 96 % - 09/11/13 1554 107/74 mmHg 97.9 F (36.6 C) Oral 121 18 95 % - Intake/Output Summary (Last 24 hours) at 09/12/13 1434 Last data filed at 09/12/13 1200 Gross per 24 hour Intake 1385 ml Output 1300 ml Net 85 ml Physical Exam: Constitutional: Alert and oriented to person, place, and time. Appears well-developed and w ell-nourished. HEENT: Neck supple, + JVD, non icteric sclera. Cardiovascular: Normal rate, regular rhythm, normal heart sounds with S1 and S2, and intact distal pulses. Exam reveals no gallop and no friction rub. No murmur heard. No S3, No S4 Pulmonary/Chest: Effort normal and breath sounds normal. No stridor. No respiratory distres s. no wheezes. no rales. exhibits no tenderness. Abdominal: Soft. Bowel sounds are normal. exhibits no distension and no mass. There is no t enderness. There is no rebound and no guarding. Extremeties/Musculoskeletal: Normal range of motion.exhibits no tenderness. 1-2+ pitting e uriel--bilateral. Neurological: Alert and oriented to person, place, and time. Has normal reflexes. display s normal reflexes. No cranial nerve deficit. Exhibits normal muscle tone. Coordination norm al. Skin: Skin is warm and dry. No rash noted. No erythema. No pallor. Psychiatric: Has a normal mood and affect. Behavior is normal. Judgment normal. DATA Lab 09/12/13 0550 09/11/13 1820 09/11/13 0551 WBC 8.6 9.7 8.3 RBC 3.82 3.94 3.88 HGB 12.3 12.8 12.4 HCT 37.3 38.8 38.0 MCV 97.5 98.5 97.9 MCH 32.1 32.5 32.0 MCHC 32.9 33.0 32.7 RDW 46.8 48.6 49.0 PLT 201 219 213 MPV 9.0 9.9 9.1 DIFFTYPE AUTOMATED AUTOMATED AUTOMATED Lab 09/12/13 1150 09/12/13 1045 09/12/13 0550 NA 134* 134* 136 K 3.7 3.9 3.6 CL 100 101 104 CO2 24 26 25 BUN 35* 35* 33* CREATININE 1.20* 1.27* 1.20* CALCIUM -- -- -- PROT 6.3 6.6 6.0* BILITOT 0.5 0.5 0.5 ALKPHOS -- -- -- ALT 42 44 40 AST 39 37 37 GLUF 110* 110* 114* Lab 09/11/13 0551 09/11/13 0005 CKTOTAL 259* 222 TROPONINI 2.47* 1.17* TROPONINT -- -- CKMBINDEX 4.7 3.6 Lab 09/11/13 0551 PHOS 4.6 Lab 09/11/13 0551 MG 1.9 No components found with this basename: AB No results found for this basename: CALCIUM:3 in the last 168 hours Xr Chest Pa And Lateral 09/10/2013 1. Cardiomegaly with pulmonary edema and mild to moderate bilateral pleural eff usions. Echo Cardiac Adult Complete 09/11/2013 1. Dilated Cardiomyopathy. LVEDd 59mm, severe global hypokinesis, Grade 3 diasto lic abnormality, LVEF <20%. RV mildly dilated, systolic function abnormal. Mild LAE. RA N ML. 2. Aortic valve sclerotic, mild AI, no . Mitral valve grossly NML, mild MAC, moderate MR. Tricuspid valve grossly NML, moderate TR. Pulmonic valve grossly NML, mild PI. 3. No Pericardial effusion. 4. Moderate Pulmonary HTN, est systolic PAP 52-57mmHg. PROBLEM LIST Principal Problem: *SOB (shortness of breath) Active Problems: Essential hypertension, benign DM (diabetes mellitus) CHF (congestive heart failure) Troponin level elevated ASSESSMENT & PLAN Congestive Heart failure with ef+-20% (new diagnosis) per verbal report from Dr. Bynum--echo dictation pending. With Tachycardia--now below 100--Per Cards consult- cont diuresis, with low dose carvedilol that will be titrated up as tolerated--increase today to 6.25 Bid. Decr eased Losartin to 50 mg PO q day, and added Digoxin 0/125 mg q day--completed. Monitor BP an d HR--goal to bring HR below 100 with continued stabilization of BP. Heart cath in am. Cont Heparin gtt, cont tely. Further testing pending. 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 Daily labs--CBC, CMP, PTT Asthma--mostly likely complicated by COPD with ongoing tobacco use--switch Albuterol to xop enex for tachycardai. Hyperlipidemia--monitor DM type 2--monitor Disposition: May need SNIFF rehab on d/c--social service consulted Code Status: Full Code Umm Augustin MD 09/12/2013 2:34 PM onversion Cm saction, Provider Unknown - 09/12/2013 1:00 PM PDTFormatting of this note might be differen t from the original. Progress Notes by Sudha Keller at 09/12/13 1300 Author: Sudha Keller Service: (none) Author Type: [employer] Filed: 09/12/13 1302 Date of Service: 09/12/13 1300 Status: Signed Assembly Supervisor: Sudha Keller ([employer] Architect) Met with Tamiko and her Alfredo and two of her eight children (seven daughters and a so n!). The conversation was superficial and non verbally the daughters indicated they would li ke Alfredo to have a physician assistant visit. I will hand this request off to Chaplain Hess for his c are this afternoon. [employer] Architectsanti Keller wUmm hernandez MD - 09/11/2013 3:35 PM PDT Progress Notes by Umm Augustin MD at 09/11/13 1535 Author: Umm Augustin MD Service: (none) Author Type: Physician Filed: 09/11/13 1556 Date of Service: 09/11/13 1535 Status: Signed Assembly Supervisor: Umm Augustin MD (Physician) [facility] Service: Hospitalist Progress Note Hospital Day: LOS: 1 day SUBJECTIVE HPI: Dr. Damon "The patient is a 83 y.o. female with significant past medical histor y of Hypertension, asthma, hyperlipidemia, DM who presents with SOB," at [facility], with a history of tobacco abuse 1 pack per hay. Her SOB started last March, with lower extre mity edema. She sleep in a recliner, and has dyspnea with minimal activity. She was placed on inhalers for wheezing with no improvement. She denies fever/ or chills, but does experi ence some night sweats and positive paroxysmal nocturnal dyspnea. Per family members she was told by PCP that there were some EKG changes in the last appt with a BNP of 3670. Chest x- ray shows cardiomegaly with moderate vascular congestion and some alveolar filling patterns, and some mild small pleural effusions. First set of cardiac enzymes is 0.54 which is exact ly the same as from [facility]. 09/11/13--Pt. Has no hx of CHF, CHD, RHD, syncope, or hx of TIA/CVA. She is long standing DM . Overnight, she continues with SOB ciro. On any exertion. Difficulties sleeping ciro. If la vishal flat. Taking PO's Denies CP, nausea or vomiting. Cards consult, Dr. Bynum on board. Scheduled Medications aspirin EC 325 mg Oral Daily with breakfast budesonide 2 puff Inhalation BID [COMPLETED] bumetanide 1 mg Intravenous Once bumetanide 2 mg Intravenous BID carvedilol 3.125 mg Oral BID WC digoxin 0.125 mg Oral Daily famotidine 20 mg Oral Daily Or famotidine 20 mg Intravenous Daily [COMPLETED] heparin (porcine) 60 Units/kg Intravenous Once [COMPLETED] ipratropium-albuterol 3 mL Nebulization Once levothyroxine 75 mcg Oral QAM AC [] lip moisturizer [START ON 09/12/2013] losartan 50 mg Oral Daily rosuvastatin 20 mg Oral Nightly sodium chloride 10 mL Intravenous Q8H spironolactone 25 mg Oral Daily [DISCONTINUED] aspirin EC 325 mg Oral Daily with breakfast [DISCONTINUED] famotidine 20 mg Intravenous BID [DISCONTINUED] famotidine 20 mg Oral BID [DISCONTINUED] heparin (porcine) 5,000 Units Subcutaneous Q8H [facility] [DISCONTINUED] losartan 100 mg Oral Daily [DISCONTINUED] nitroGLYCERIN 1 inch Topical Q6H [DISCONTINUED] sodium chloride 10 mL Intravenous Q8H [DISCONTINUED] torsemide 20 mg Intravenous Once Continuous Infusions heparin 50 units/mL in Dextrose 5% 9 Units/kg/hr (09/11/13 0838) [DISCONTINUED] nitroGLYCERIN in D5W 5 mcg/min (09/10/131946) PRN Medications acetaminophen, acetaminophen, heparin (porcine), heparin (porcine), morphine, morphine, mor phine, ondansetron, ondansetron, polyethylene glycol OBJECTIVE Vital Signs: BP 109/67 | Pulse 123 | Temp 98.2 F (36.8 C) (Oral) | Resp 19 | Ht 1.676 m (5' 6") | Wt 73.9 kg (162 lb 14.7 oz) | BMI 26.31 kg/m2 | SpO2 93% | ? No Patient Vitals for the past 24 hrs: BP Temp Temp src Pulse Resp SpO2 Height Weight 09/11/13 1218 109/67 mmHg 98.2 F (36.8 C) Oral 123 19 93 % - - 09/11/13 0539 90/66 mmHg - - 122 - - - - 09/11/13 0327 88/53 mmHg 97.4 F (36.3 C) Temporal 92 18 92 % - 73.9 kg (162 lb 14.7 o z) 09/10/13 2312 102/65 mmHg 98.5 F (36.9 C) Oral 119 20 94 % 1.676 m (5' 6") 73.9 kg (1 62 lb 14.7 oz) 09/10/13 215 133/64 mmHg 96.8 F (36 C) Oral 122 20 94 % - - 09/10/13 213 106/64 mmHg 97.2 F (36.2 C) - 126 17 93 % - - 09/10/132027 116/70 mmHg 97.3 F (36.3 C) Oral 126 - - - - 09/10/13 1944 124/72 mmHg - - 122 19 94 % - - 09/10/13 1900 112/68 mmHg 99.1 F (37.3 C) Oral 97 20 94 % - - 09/10/13 1828 - - - - - 92 % - - 09/10/13 1827 - - - 121 22 93 % - - 09/10/13 1823 - - - - - - 1.676 m (5' 6") 71.215 kg (157 lb) 09/10/13 1804 - 97.8 F (36.6 C) Oral - - - - - 09/10/13 1752 121/72 mmHg - Oral 129 24 91 % - - Intake/Output Summary (Last 24 hours) at 09/11/13 1535 Last data filed at 09/11/13 1221 Gross per 24 hour Intake 867 ml Output 200 ml Net 667 ml Physical Exam: Constitutional: Alert and oriented to person, place, and time. Appears well-developed and w ell-nourished. HEENT: Neck supple, + JVD, non icteric sclera. Cardiovascular: Normal rate, regular rhythm, normal heart sounds with S1 and S2, and intact distal pulses. Exam reveals no gallop and no friction rub. No murmur heard. No S3, No S4 Pulmonary/Chest: Effort normal and breath sounds normal. No stridor. No respiratory distres s. Exp wheezes bilateral with rales. exhibits no tenderness. Abdominal: Soft. Bowel sounds are normal. exhibits no distension and no mass. There is no t enderness. There is no rebound and no guarding. Extremeties/Musculoskeletal: Normal range of motion.exhibits no tenderness. 2+ pitting ed irais. Neurological: Alert and oriented to person, place, and time. Has normal reflexes. Skin: Skin is warm and dry. No rash noted. No erythema. No pallor. Psychiatric: Has a normal mood and affect. Behavior is normal. Judgment normal. DATA Lab 09/11/13 0551 09/11/13 0150 WBC 8.3 6.5 RBC 3.88 3.79 HGB 12.4 12.1 HCT 38.0 36.2 MCV 97.9 95.5 MCH 32.0 32.0 MCHC 32.7 33.5 RDW 49.0 48.1 PLT 213 210 MPV 9.1 8.5 DIFFTYPE AUTOMATED -- Lab 09/11/13 0551 NA 134* K 4.5 CL 105 CO2 22* BUN 25 CREATININE 1.36* CALCIUM -- PROT 6.4 BILITOT 0.5 ALKPHOS -- ALT 43 AST 38 GLUF 135* Lab 09/11/13 0551 09/11/13 0005 CKTOTAL 259* 222 TROPONINI 2.47* 1.17* TROPONINT -- -- CKMBINDEX 4.7 3.6 Lab 09/11/13 0551 PHOS 4.6 Lab 09/11/13 0551 MG 1.9 No components found with this basename: AB No results found for this basename: CALCIUM:3 in the last 168 hours Xr Chest Pa And Lateral 09/10/2013 1. Cardiomegaly with pulmonary edema and mild to moderate bilateral pleural eff usions. LEM LIST Principal Problem: *SOB (shortness of breath) Active Problems: Essential hypertension, benign DM (diabetes mellitus) CHF (congestive heart failure) Troponin level elevated ASSESSMENT & PLAN Congestive Heart failure with ef+-20% (new diagnosis) per verbal report from Dr. Bynum--echo dictation pending. With Tachycardia--Per Cards consult- cont diuresis, with low dose carve dilol that will be titrated up as tolerated. Decrease Losartin to 50 mg PO q day, and add D igoxin 0/125 mg q day--completed. Monitor BP and HR--goal to bring HR below 100 with contin ued stabilization of BP. Consider dooubling of Coreg as vitals stabilize. Most likely will need heart cath in near future. Cont Heparin gtt, cont tely. Further testing pending. 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 Daily labs--CBC, CMP, PTT Asthma--mostly likely complicated by COPD with ongoing tobacco use--switch Albuterol to xop enex for tachycardai. Hyperlipidemia--monitor DM type 2--monitor Disposition: Code Status: Full Code Umm Augustin MD 09/11/2013 3:35 PM Denilson Yancey RN - 09/11/2013 5:48 AM PDTFormatting of this note might be different from the origi nal. Nurse Progress Note by Tricia Calderon RN at 09/11/13 0548 Author: Tricia Calderon RN Service: (none) Author Type: Registered Nurse Filed: 09/11/13 0552 Date of Service: 09/11/13 0548 Status: Signed Assembly Supervisor: Tricia Calderon RN (Registered Nurse) Pt continues to cough this AM with any exertion. SaO2 remaining in the 90's on 3LNC. BP has been low since given carvedilol. Pt is asymptomatic. Pt has been to [facility] multiple times renata ght with good output. Pt is frequently incontinent with coughing and has soaked [address] voided amounts. Pt has called appropriately. [facility] onversion Cm saction, Provider Unknown - 09/10/2013 11:34 PM PDTFormatting of this note might be differen t from the original. Progress Notes by Jess Robb RPH at 09/10/132333 Author: Jess Robb RPH Service: (none) Author Type: Pharmacist Filed: 09/10/132333 Date of Service: 09/10/132333 Status: Signed Assembly Supervisor: Jess Robb RPH (Pharmacist) Clinical Pharmacy Note: Renal Monitoring Tamiko [place] 83 y.o. female Height: 167.6 cm Weight: 73.9 kg Serum Creatinine: 0.98 mg/dL (from [facility]) Estimated creatinine clearance - Cockcroft-Gault CrCl: 46 mL/min. Pharmacy dosing for renal function per Dr. Garay. Will order the following dosage adjustments: Pepcid 20 mg IV/PO Q24H Pharmacy will continue to monitor for changes in medication orders and in renal function an d adjust accordingly per P & T committee. Jess Robb PharmPhong 09/10/2013 11:33 PM onver yajaira Transaction, Provider Unknown - 09/10/2013 10:53 PM PDT Case Management by JAIMEE Hernandez at 09/10/132252 Author: JAIMEE Hernandez Service: (none) Author Type: Bench Assembler Electrical Filed: 09/10/132256 Date of Service: 09/10/132252 Status: Signed Assembly Supervisor: JAIMEE Hernandez (Bench Assembler Electrical) 09/10/132247 Discharge Planning Evaluation Admitting Diagnosis CHF Readmission No Living Arrangements Spouse/significant other Support Systems Spouse/significant other Type of Residence Private residence House type House-1 story Steps to enter 7 (difficulty getting up the stairs the past few weeks) Bathrooms on 1st Floor 1-Full Independent with ADL's Yes Independent with Mobility Yes Home Care Services No Caregiver after Discharge No Mental Status Oriented Prior functional status pt independent with adls up until past week. Power of Fabrication Mig Welder Yes Power of Fabrication Mig Welder Name Alfredo [place] Power of Fabrication Mig Welder Anticipated Discharge Plan Post Acute Care Needs (pending clinical course) Plan communicated to patient/family Yes Resources Financial concerns No Transportation issues No Patient/Family concerns No Previous home health equipment No Vascular access device No Ostomy/Drains/Appliances No Anticipated Disposition Facility Type Other (Comment) (pt would like to return home) Met with: and discussed discharge planning, Pt is a 83 y.o., female who has increasing shortness of b reath over the past week. She has been active and independent prior to this incident. Spouse Alfredo [place] is POA. She was very insistent she would like to return to her home with home he alth if she needs any additional care pending her clinical course. Patient's PCP is: JORGE VALDES Patient's insurance: medicare/medicare IP-OP [employer] [place] Coverage concerns: none at this time Medication coverage/concerns: none at this time Community resources utilized / needed: Assistance in transportation: Identification of any specific education / training: Barriers to Discharge / Alternative housing needed: Anticipated DCP: 1. Pending clinical course; pt would like to return home. 2. Spouse POA 3. Spouse to transport 4. Alfredo [place] [phone] Luz Hung docume nted in this encounter Plan of Treatment +--------+ + + + + | Date | Type | Specialty | Care Team | Description | +--------+ + + + + | 03/09/ | Office | Cardiology | [place], | | | 2018 | Visit | | [address] | | | | | | [place] | | | | | | [address] | | | | | | | [...] [place] | | | | | | [address] | | | | | | | | +--------+ + + + + documented as of this encounter Procedures + +--------+ + + + | Procedure Name | Priori | Date/Time | Associated Diagnosis | Comments | | | ty | | | | + +--------+ + + + | COMPREHENSIVE | Routin | 09/17/2013 | | Results for this | | METABOLIC PANEL | e | 3:39 AM | | procedure are in the | | | | PDT | | results section. | + +--------+ + + + | COMPREHENSIVE | Routin | 09/16/2013 | | Results for this | | METABOLIC PANEL | e | 3:31 AM | | procedure are in the | | | | PDT | | results section. | + +--------+ + + + | PTT | Routin | 09/15/2013 | | Results for this | | | e | 5:10 PM | | procedure are in the | | | | PDT | | results section. | + +--------+ + + + | ECHO LIMITED | Routin | 09/15/2013 | | Results for this | | | e | 2:23 PM | | procedure are in the | | | | PDT | | results section. | + +--------+ + + + | NM MYOCARDIAL | Routin | 09/15/2013 | | Results for this | | PERFUSION SINGLE | e | 9:57 AM | | procedure are in the | | | | PDT | | results section. | + +--------+ + + + | PTT | Routin | 09/15/2013 | | Results for this | | | e | 9:57 AM | | procedure are in the | | | | PDT | | results section. | + +--------+ + + + | COMPREHENSIVE | Routin | 09/15/2013 | | Results for this | | METABOLIC PANEL | e | 3:27 AM | | procedure are in the | | | | PDT | | results section. | + +--------+ + + + | CBC WITH MANUAL | Routin | 09/14/2013 | | Results for this | | DIFFERENTIAL | e | 4:40 AM | | procedure are in the | | | | PDT | | results section. | + +--------+ + + + | PTT | Routin | 09/14/2013 | | Results for this | | | e | 4:40 AM | | procedure are in the | | | | PDT | | results section. | + +--------+ + + + | PHOSPHORUS | Routin | 09/14/2013 | | Results for this | | | e | 4:40 AM | | procedure are in the | | | | PDT | | results section. | + +--------+ + + + | MAGNESIUM | Routin | 09/14/2013 | | Results for this | | | e | 4:40 AM | | procedure are in the | | | | PDT | | results section. | + +--------+ + + + | COMPREHENSIVE | Routin | 09/14/2013 | | Results for this | | METABOLIC PANEL | e | 4:40 AM | | procedure are in the | | | | PDT | | results section. | + +--------+ + + + | CV CARDIAC PROCEDURE | Routin | 09/13/2013 | | Results for this | | | e | 9:10 AM | | procedure are in the | | | | PDT | | results section. | + +--------+ + + + | EXTERNAL LAB: CBC | Routin | 09/13/2013 | | Results for this | | | e | 4:43 AM | | procedure are in the | | | | PDT | | results section. | + +--------+ + + + | PTT | Routin | 09/13/2013 | | Results for this | | | e | 4:43 AM | | procedure are in the | | | | PDT | | results section. | + +--------+ + + + | COMPREHENSIVE | Routin | 09/13/2013 | | Results for this | | METABOLIC PANEL | e | 4:43 AM | | procedure are in the | | | | PDT | | results section. | + +--------+ + + + | PTT | Routin | 09/13/2013 | | Results for this | | | e | 12:29 AM | | procedure are in the | | | | PDT | | results section. | + +--------+ + + + | MRSA NAAT | Timed | 09/12/2013 | | Results for this | | | | 10:04 PM | | procedure are in the | | | | PDT | | results section. | + +--------+ + + + | PTT | Routin | 09/12/2013 | | Results for this | | | e | 6:55 PM | | procedure are in the | | | | PDT | | results section. | + +--------+ + + + | COMPREHENSIVE | Routin | 09/12/2013 | | Results for this | | METABOLIC PANEL | e | 6:55 PM | | procedure are in the | | | | PDT | | results section. | + +--------+ + + + | PTT | Routin | 09/12/2013 | | Results for this | | | e | 11:50 AM | | procedure are in the | | | | PDT | | results section. | + +--------+ + + + | COMPREHENSIVE | Routin | 09/12/2013 | | Results for this | | METABOLIC PANEL | e | 11:50 AM | | procedure are in the | | | | PDT | | results section. | + +--------+ + + + | COMPREHENSIVE | Routin | 09/12/2013 | | Results for this | | METABOLIC PANEL | e | 10:45 AM | | procedure are in the | | | | PDT | | results section. | + +--------+ + + + | EXTERNAL LAB: CBC | Routin | 09/12/2013 | | Results for this | | | e | 5:50 AM | | procedure are in the | | | | PDT | | results section. | + +--------+ + + + | PTT | Routin | 09/12/2013 | | Results for this | | | e | 5:50 AM | | procedure are in the | | | | PDT | | results section. | + +--------+ + + + | COMPREHENSIVE | Routin | 09/12/2013 | | Results for this | | METABOLIC PANEL | e | 5:50 AM | | procedure are in the | | | | PDT | | results section. | + +--------+ + + + | PTT | Routin | 09/12/2013 | | Results for this | | | e | 12:04 AM | | procedure are in the | | | | PDT | | results section. | + +--------+ + + + | EXTERNAL LAB: CBC | Routin | 09/11/2013 | | Results for this | | | e | 6:20 PM | | procedure are in the | | | | PDT | | results section. | + +--------+ + + + | PTT | Routin | 09/11/2013 | | Results for this | | | e | 2:00 PM | | procedure are in the | | | | PDT | | results section. | + +--------+ + + + | ECHO COMPLETE | Routin | 09/11/2013 | | Results for this | | | e | 8:15 AM | | procedure are in the | | | | PDT | | results section. | + +--------+ + + + | PTT | Routin | 09/11/2013 | | Results for this | | | e | 7:41 AM | | procedure are in the | | | | PDT | | results section. | + +--------+ + + + | EXTERNAL LAB: CBC | Routin | 09/11/2013 | | Results for this | | | e | 5:51 AM | | procedure are in the | | | | PDT | | results section. | + +--------+ + + + | TROPONIN I | Routin | 09/11/2013 | | Results for this | | | e | 5:51 AM | | procedure are in the | | | | PDT | | results section. | + +--------+ + + + | CK-MB | Routin | 09/11/2013 | | Results for this | | | e | 5:51 AM | | procedure are in the | | | | PDT | | results section. | + +--------+ + + + | TSH | Routin | 09/11/2013 | | Results for this | | | e | 5:51 AM | | procedure are in the | | | | PDT | | results section. | + +--------+ + + + | PHOSPHORUS | Routin | 09/11/2013 | | Results for this | | | e | 5:51 AM | | procedure are in the | | | | PDT | | results section. | + +--------+ + + + | B TYPE NATRIURETIC | Routin | 09/11/2013 | | Results for this | | PEPTIDE | e | 5:51 AM | | procedure are in the | | | | PDT | | results section. | + +--------+ + + + | MAGNESIUM | Routin | 09/11/2013 | | Results for this | | | e | 5:51 AM | | procedure are in the | | | | PDT | | results section. | + +--------+ + + + | HEMOGLOBIN A1C | Routin | 09/11/2013 | | Results for this | | | e | 5:51 AM | | procedure are in the | | | | PDT | | results section. | + +--------+ + + + | CK TOTAL | Routin | 09/11/2013 | | Results for this | | | e | 5:51 AM | | procedure are in the | | | | PDT | | results section. | + +--------+ + + + | BILIRUBIN, DIRECT | Routin | 09/11/2013 | | Results for this | | | e | 5:51 AM | | procedure are in the | | | | PDT | | results section. | + +--------+ + + + | COMPREHENSIVE | Routin | 09/11/2013 | | Results for this | | METABOLIC PANEL | e | 5:51 AM | | procedure are in the | | | | PDT | | results section. | + +--------+ + + + | PTT | Routin | 09/11/2013 | | Results for this | | | e | 1:50 AM | | procedure are in the | | | | PDT | | results section. | + +--------+ + + + | PROTIME INR | Routin | 09/11/2013 | | Results for this | | | e | 1:50 AM | | procedure are in the | | | | PDT | | results section. | + +--------+ + + + | CBC NO DIFFERENTIAL | Routin | 09/11/2013 | | Results for this | | | e | 1:50 AM | | procedure are in the | | | | PDT | | results section. | + +--------+ + + + | TROPONIN I | Routin | 09/11/2013 | | Results for this | | | e | 12:05 AM | | procedure are in the | | | | PDT | | results section. | + +--------+ + + + | CK-MB | Routin | 09/11/2013 | | Results for this | | | e | 12:05 AM | | procedure are in the | | | | PDT | | results section. | + +--------+ + + + | CK TOTAL | Routin | 09/11/2013 | | Results for this | | | e | 12:05 AM | | procedure are in the | | | | PDT | | results section. | + +--------+ + + + | POC CG 4, ISTAT | Routin | 09/10/2013 | | Results for this | | ARTERIAL | e | 6:58 PM | | procedure are in the | | | | PDT | | results section. | + +--------+ + + + | XR CHEST 2 VIEWS | Routin | 09/10/2013 | | Results for this | | | e | 6:45 PM | | procedure are in the | | | | PDT | | results section. | + +--------+ + + + | CULTURE, BLOOD, 2ND | STAT | 09/10/2013 | | Results for this | | SPECIMEN (NON-ORD) | | 6:19 PM | | procedure are in the | | | | PDT | | results section. | + +--------+ + + + | CULTURE, BLOOD | STAT | 09/10/2013 | | Results for this | | | | 6:19 PM | | procedure are in the | | | | PDT | | results section. | + +--------+ + + + | B TYPE NATRIURETIC | Routin | 09/10/2013 | | Results for this | | PEPTIDE | e | 6:19 PM | | procedure are in the | | | | PDT | | results section. | + +--------+ + + + documented in this encounter Results Comprehensive Metabolic Panel (09/17/2013 3:39 AM PDT) + + + + + [...] | | | | | [place] [address] | | | | + + + + + + | K | 3.9Comment: Testing | 3.5 - 4.9 | EXTERNAL | | | | performed at [facility], [address] | mmol/L | LAB | | | | [address], | | | | | | [place] [address] | | | | + + + + + + | Cl | 99Comment: Testing | 99 - 109 mmol/L | EXTERNAL | | | | performed at [facility], [address] | | LAB | | | | [address], | | | | | | [place] [address] | | | | + + + + + + | CO2 | 31Comment: Testing | 23 - 32 mmol/L | EXTERNAL | | | | performed at [facility], [address] | | LAB | | | | [address], | | | | | | [place] [address] | | | | + + + + + + | Anion Gap | 10Comment: Testing | 5 - 20 mmol/L | EXTERNAL | | | | performed at [facility], [address] | | LAB | | | | [address], | | | | | | [place] [address] | | | | + + + + + + | Glucose, | 123 (H)Comment: Testing | 65 - 99 mg/dL | EXTERNAL | | | Fasting | performed at [facility], [address] | | LAB | | | | [address], | | | | | | [place] [address] | | | | + + + + + + | BUN | 20Comment: Testing | 8 - 25 mg/dL | EXTERNAL | | | | performed at [facility], [address] | | LAB | | | | [address], | | | | | | [place] [address] | | | | + + + + + + | Creatinine | 0.91Comment: Testing | 0.50 - 1.00 | EXTERNAL | | | | performed at [facility], [address] | mg/dL | LAB | | | | [address], | | | | | | [place] [address] | | | | + + + + + + | BUN/Creatin | 22Comment: Testing | | EXTERNAL | | | ine Ratio | performed at [facility], [address] | | LAB | | | | [address], | | | | | | [place] [address] | | | | + + + + + + | Calcium | 9.3Comment: Testing | 8.5 - 10.2 | EXTERNAL | | | | performed at [facility], [address] | mg/dL | LAB | | | | [address], | | | | | | [place] [address] | | | | + + + + + + | Protein, | 6.2 (L)Comment: Testing | 6.3 - 8.2 g/dL | EXTERNAL | | | Total | performed at [facility], [address] | | LAB | | | | [address], | | | | | | [place] [address] | | | | + + + + + + | Albumin | 3.7Comment: Testing | 3.3 - 4.8 g/dL | EXTERNAL | | | | performed at [facility], [address] | | LAB | | | | [address], | | | | | | [place] [address] | | | | + + + + + + | Globulin | 2.5Comment: Testing | 1.3 - 4.9 g/dL | EXTERNAL | | | | performed at [facility], [address] | | LAB | | | | [address], | | | | | | [place] [address] | | | | + + + + + + | A/G Ratio | 1.5Comment: Testing | 1.0 - 2.4 | EXTERNAL | | | | performed at [facility], [address] | | LAB | | | | [address], | | | | | | [place], [place] [address] | | | | + + + + + + | Bilirubin | 0.8Comment: Testing | 0.1 - 1.5 mg/dL | EXTERNAL | | | Total | performed at [facility], [address] | | LAB | | | | [address], | | | | | | [place] [address] | | | | + + + + + + | ALP, | 55Comment: Testing | 35 - 115 U/L | EXTERNAL | | | External | performed at [facility], [address] | | LAB | | | | [address], | | | | | | [place] [address] | | | | + + + + + + | AST | 19Comment: Testing | 10 - 45 U/L | EXTERNAL | | | | performed at [facility], [address] | | LAB | | | | [address], | | | | | | [place] [address] | | | | + + + + + + | ALT | 21Comment: Testing | 10 - 65 U/L | EXTERNAL | | | | performed at [facility], [address] | | LAB | | | | [facility], | | | | | | [place] [address] | | | | + + + [...] | | | | | | at [facility], [address] | | | | | | [address], | | | | | | [place] [address] | | | | + + + [...] + +---------+ + + Comprehensive Metabolic Panel (09/16/2013 3:31 AM PDT) + + + + + + | Component | Value | Ref Range | Performed | Pathologist | | | | | At | Signature | + + + + + + | Na | 139Comment: Testing | 135 - 143 | EXTERNAL | | | | performed at [facility], [address] | mmol/L | LAB | | | | [address], | | | | | | [place] [address] | | | | + + + + + + | K | 3.5Comment: Testing | 3.5 - 4.9 | EXTERNAL | | | | performed at [facility], [address] | mmol/L | LAB | | | | [address], | | | | | | [place] [address] | | | | + + + + + + | Cl | 101Comment: Testing | 99 - 109 mmol/L | EXTERNAL | | | | performed at [facility], [address] | | LAB | | | | [address], | | | | | | [place] [address] | | | | + + + + + + | CO2 | 29Comment: Testing | 23 - 32 mmol/L | EXTERNAL | | | | performed at [facility], [address] | | LAB | | | | [address], | | | | | | [place] [address] | | | | + + + + + + | Anion Gap | 13Comment: Testing | 5 - 20 mmol/L | EXTERNAL | | | | performed at [facility], [address] | | LAB | | | | [address], | | | | | | [place] [address] | | | | + + + + + + | Glucose, | 128 (H)Comment: Testing | 65 - 99 mg/dL | EXTERNAL | | | Fasting | performed at [facility], [address] | | LAB | | | | [address], | | | | | | [place] [address] | | | | + + + + + + | BUN | 16Comment: Testing | 8 - 25 mg/dL | EXTERNAL | | | | performed at [facility], [address] | | LAB | | | | [address], | | | | | | [place] [address] | | | | + + + + + + | Creatinine | 0.95Comment: Testing | 0.50 - 1.00 | EXTERNAL | | | | performed at [facility], [address] | mg/dL | LAB | | | | [address], | | | | | | [place] [address] | | | | + + + + + + | BUN/Creatin | 17Comment: Testing | | EXTERNAL | | | ine Ratio | performed at [facility], [address] | | LAB | | | | [address], | | | | | | [place] [address] | | | | + + + + + + | Calcium | 9.3Comment: Testing | 8.5 - 10.2 | EXTERNAL | | | | performed at [facility], [address] | mg/dL | LAB | | | | [address], | | | | | | [place] [address] | | | | + + + + + + | Protein, | 6.5Comment: Testing | 6.3 - 8.2 g/dL | EXTERNAL | | | Total | performed at [facility], [address] | | LAB | | | [address], | | | | | | [place] [address] | | | | + + + + + + | Albumin | 3.8Comment: Testing | 3.3 - 4.8 g/dL | EXTERNAL | | | | performed at [facility], [address] | | LAB | | | | [address], | | | | | | [place] [address] | | | | + + + + + + | Globulin | 2.7Comment: Testing | 1.3 - 4.9 g/dL | EXTERNAL | | | | performed at [facility], [address] | | LAB | | | | [address], | | | | | | [place] [address] | | | | + + + + + + | A/G Ratio | 1.4Comment: Testing | 1.0 - 2.4 | EXTERNAL | | | | performed at [facility], [address] | | LAB | | | | [address], | | | | | | [place] [address] | | | | + + + + + + | Bilirubin | 0.7Comment: Testing | 0.1 - 1.5 mg/dL | EXTERNAL | | | Total | performed at [facility], [address] | | LAB | | | | [address], | | | | | | [place] [address] | | | | + + + + + + | ALP, | 62Comment: Testing | 35 - 115 U/L | EXTERNAL | | | External | performed at [facility], [address] | | LAB | | | | [address], | | | | | | [place] [address] | | | | + + + + + + | AST | 21Comment: Testing | 10 - 45 U/L | EXTERNAL | | | | performed at [facility], [address] | | LAB | | | | [address], | | | | | | [place] [address] | | | | + + + + + + | ALT | 23Comment: Testing | 10 - 65 U/L | EXTERNAL | | | | performed at [facility], [address] | | LAB | | | | [address], | | | | | | [place] [address] | | | | + + + + + + | Estimated | 60 (L)Comment: GFR <60: | mL/min/1.73m2 | EXTERNAL [...] W | | | | | | [address], | | | | | | [place] [address] | | | | + + + + + + + + | Specimen | + + | Blood specimen | | (specimen) | + + + +---------+ + + | Performing | Address | City/State/Zipcode | Phone Number | | Organization | | | | + +---------+ + + | EXTERNAL LAB | | | | + +---------+ + + PTT (09/15/2013 5:10 PM PDT) + + + + + + | Component | Value | Ref Range | Performed | Pathologist | | | | | At | Signature | + + + + + + | aPTT, | 30Comment: Testing | 23 - 32 seconds | EXTERNAL | | | Patient | performed at [facility] | | LAB | | | | [place] | | | | | | [address] | | | | + + + + + + + + | Specimen | + + | Blood specimen | | (specimen) | + + + +---------+ + + | Performing | Address | City/State/Zipcode | Phone Number | | Organization | | | | + +---------+ + + | EXTERNAL LAB | | | | + +---------+ + + Echo Limited (09/15/2013 2:23 PM PDT) + + | Specimen | + + | | + + + + + | Impressions | Performed At | + + + | 1. A limited 2-dimensional transthoracic echocardiogram with limited | | | spectral and color flow Doppler was performed. 2. This was a | | | technically adequate study. 3. Overall left ventricular systolic | | | function is severely impaired with, an EF < 20%. | | + + + + + + | Narrative | Performed At | + + + | Patient Name: TAMIKO IRELAND Date of : 1930 | | | Performing Physician: Kenia Dent MD | | | | | | INDICATIONS eval lv fxn- previous echo 09/11 had low ef | | | nuc test had better ef CONCLUSIONS 1. A limited | | | 2-dimensional transthoracic echocardiogram with limited spectral and | | | color flow Doppler was performed. 2. This was a technically adequate | | | study. 3. Overall left ventricular systolic function is severely | | | impaired with, an EF < 20%. FINDINGS -------- Study: A limited | | | 2-dimensional transthoracic echocardiogram with limited spectral and | | | color flow Doppler was performed. Study: This was a technically | | | adequate study. Left Ventricle: Overall left ventricular systolic | | | function is severely impaired with, an EF < 20%. Left Ventricle: The | | | left ventricle is markedly dilated. Left Ventricle: Left ventricular | | | wall thickness is normal. Pericardium: There is no pericardial | | | effusion. 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 | | A limited 2-dimensional transthoracic echocardiogram with limited spectral and color | | flow Doppler was performed.2. This was a technically adequate study.3. Overall left | | ventricular systolic function is severely impaired with, an EF < 20%. | | FINDINGS--------Study: A limited 2-dimensional transthoracic echocardiogram with limited | | spectral and color flow Doppler was performed.Study: This was a technically adequate | | study.Left Ventricle: Overall left ventricular systolic function is severely impaired | | with, an EF < 20%.Left Ventricle: The left ventricle is markedly dilated.Left Ventricle: | | Left ventricular wall thickness is normal.Pericardium: There is no pericardial | | effusion. MEASUREMENTS EDV(Teich): 259.44 mlIVSd: 0.91 cmLVIDd: 7.04 | | cmLVPWd: 0.90 cm%FS: 6.47 %EF(Teich): 14.03 %ESV(Teich): 223.03 mlIVSs: 1.04 | | cmLVIDs: 6.59 cmLVPWs: 0.95 cmSV(Teich): 36.41 mlLVEF MOD A2C: 36.14 %SV MOD | | A2C: 92.77 mlLVEF MOD A4C: 11.49 %SV MOD A4C: 24.81 mlEF Biplane: 21.32 %LVEDV | | MOD BP: 235.21 mlLVESV MOD BP: 185.05 mlLVEDV MOD A2C: 256.65 mlLVLd A2C: 9.73 | | cmLVEDV MOD A4C: 215.89 mlLVLd A4C: 9.71 cmLVESV MOD A2C: 163.87 mlLVLs A2C: | | 8.81 cmLVESV MOD A4C: 191.07 mlLVLs A4C: 9.69 cm Insulation Worker Furnace Installer: CMAuthenticated by: | | Kenia CARRANZAchelsea Date/Time: 09-15-2013 14:45:15 IMPRESSION: 1. A limited | | 2-dimensional transthoracic echocardiogram with limited spectral and color flow Doppler | | was performed.2. This was a technically adequate study.3. Overall left ventricular | | systolic function is severely impaired with, an EF < 20%. | |Left Ventricle: The left ventricle is markedly dilated. | |Left Ventricle: Left ventricular wall thickness is normal. | |Pericardium: There is no pericardial effusion. | | | |MEASUREMENTS | | | |EDV(Teich): 259.44 ml | |IVSd: 0.91 cm | |LVIDd: 7.04 cm | |LVPWd: 0.90 cm | |%FS: 6.47 % | |EF(Teich): 14.03 % | |ESV(Teich): 223.03 ml | |IVSs: 1.04 cm | |LVIDs: 6.59 cm | |LVPWs: 0.95 cm | |SV(Teich): 36.41 ml | |LVEF MOD A2C: 36.14 % | |SV MOD A2C: 92.77 ml | |LVEF MOD A4C: 11.49 % | |SV MOD A4C: 24.81 ml | |EF Biplane: 21.32 % | |LVEDV MOD BP: 235.21 ml | |LVESV MOD BP: 185.05 ml | |LVEDV MOD A2C: 256.65 ml | |LVLd A2C: 9.73 cm | |LVEDV MOD A4C: 215.89 ml | |LVLd A4C: 9.71 cm | |LVESV MOD A2C: 163.87 ml | |LVLs A2C: 8.81 cm | |LVESV MOD A4C: 191.07 ml | |LVLs A4C: 9.69 cm | | | |Insulation Worker Furnace Installer: CM | |Authenticated by: Kenia Dent MD | |Report Date/Time: 09-15-2013 14:45:15 | | | |IMPRESSION: | |1. A limited 2-dimensional transthoracic echocardiogram with limited spectral and color yazmin w Doppler was performed. | |2. This was a technically adequate study. | |3. Overall left ventricular systolic function is severely impaired with, an EF < 20%. | + + NM Myocardial Perfusion Single (09/15/2013 9:57 AM PDT) + + | Specimen | + + | | + + + + + | Impressions | Performed At | + + + | 1. No evidence of hibernating myocardium. 2. Persistent mildly | | | decreased perfusion in the anterior apical area the left ventricle on | | | immediate, 4 hour and 24-hour imaging. 3. Otherwise, uniform | | | perfusion is noted throughout the left ventricle. 4. Left | | | ventricular dilatation. | | + + + + + + | Narrative | Performed At | + + + | [facility] 09/15/2013 9:57 AM | | | History: 83 years. Female. Congestive heart failure. | | | Coronary catheterization is revealed 3 vessel coronary stenosis. | | | Evaluation for hibernating myocardium. Technique: The patient had | | | a rest examination with intravenous administration of 4 mCi of | | | thallium-201. Immediate SPECT imaging of the heart was performed, | | | displayed in 3 planes. A similar 4 hour and 24-hour SPECT imaging of | | | the heart was performed. No stress examination performed. | | | Findings: There is mild to moderate decreased brightness of uptake in | | | the apical anterior aspect of the left ventricle on all 3 | | | acquisitions, unchanged over time. No redistribution visualized. | | | Otherwise, there is uniform, normally bright perfusion uptake | | | throughout the left myocardium. Left ventricular dilatation is noted. | | | | | + + + + + | Procedure Note | + + | Ross, César Conversion - 11/26/2018 3:41 PM PDT [facility] | | MYOCARDIUM09/15/2013 9:57 AM History: 83 years. Female. Congestive heart failure. | | Coronary catheterization is revealed 3 vessel coronary stenosis. Evaluation for | | hibernating myocardium. Technique: The patient had a rest examination with intravenous | | administration of 4 mCi of thallium-201. Immediate SPECT imaging of the heart was | | performed, displayed in 3 planes. A similar 4 hour and 24-hour SPECT imaging of the | | heart was performed. No stress examination performed. Findings: There is mild to | | moderate decreased brightness of uptake in the apical anterior aspect of the left | | ventricle on all 3 acquisitions, unchanged over time. No redistribution visualized. | | Otherwise, there is uniform, normally bright perfusion uptake throughout the left | | myocardium. Left ventricular dilatation is noted. IMPRESSION: 1. No evidence of | | hibernating myocardium.2. Persistent mildly decreased perfusion in the anterior apical | | area the left ventricle on immediate, 4 hour and 24-hour imaging.3. Otherwise, uniform | | perfusion is noted throughout the left ventricle.4. Left ventricular dilatation. | | | |1. No evidence of hibernating myocardium. | |2. Persistent mildly decreased perfusion in the anterior apical area the left ventricle on immediate, 4 hour and 24-hour imaging. | |3. Otherwise, uniform perfusion is noted throughout the left ventricle. | |4. Left ventricular dilatation. | | | | | + + PTT (09/15/2013 9:57 AM PDT) + + + + + + | Component | Value | Ref Range | Performed | Pathologist | | | | | At | Signature | + + + + + + | aPTT, | 28Comment: Testing | 23 - 32 seconds | EXTERNAL | | | Patient | performed at [facility] | | LAB | | | | [address];[place], [place] | | | | | | [address] | | | | + + + [...] + +---------+ + + Comprehensive Metabolic Panel (09/15/2013 3:27 AM PDT) + + + + + + | Component | Value | Ref Range | Performed | Pathologist | | | | | At | Signature | + + + + + + | Na | 140Comment: Testing | 135 - 143 | EXTERNAL | | | | performed at [facility] | mmol/L | LAB | | | | [address];[place] | | | | | | [address] | | | | + + + + + + | K | 4.0Comment: SLT | 3.5 - 4.9 | EXTERNAL | | | | HEMOLYSISTesting | mmol/L | LAB | | | | performed at [facility] | | | | | | [address];[place] | | | | | | [address] | | | | + + + + + + | Cl | 104Comment: Testing | 99 - 109 mmol/L | EXTERNAL | | | | performed at [facility] | | LAB | | | [address];[place] | | | | | | [address] | | | | + + + + + + | CO2 | 25Comment: Testing | 23 - 32 mmol/L | EXTERNAL | | | | performed at [facility] | | LAB | | | | [address];[place] | | | | | | [address] | | | | + + + + + + | Anion Gap | 15Comment: Testing | 5 - 20 mmol/L | EXTERNAL | | | | performed at [facility] | | LAB | | | | [address];[place] | | | | | | [address] | | | | + + + + + + | Glucose, | 112 (H)Comment: Testing | 65 - 99 mg/dL | EXTERNAL | | | Fasting | performed at [facility] | | LAB | | | | [address];[place] | | | | | | [address] | | | | + + + + + + | BUN | 17Comment: Testing | 8 - 25 mg/dL | EXTERNAL | | | | performed at [facility] | | LAB | | | | [address];[place] | | | | | | [address] | | | | + + + + + + | Creatinine | 0.67Comment: Testing | 0.50 - 1.00 | EXTERNAL | | | | performed at [facility] | mg/dL | LAB | | | | [address];[place] | | | | | | [address] | | | | + + + + + + | BUN/Creatin | 26Comment: Testing | | EXTERNAL | | | ine Ratio | performed at [facility] | | LAB | | | | [address];[place] | | | | | | [address] | | | | + + + + + + | Calcium | 8.0 (L)Comment: Testing | 8.5 - 10.2 | EXTERNAL | | | | performed at [facility] | mg/dL | LAB | | | | [address];[place] | | | | | | [address] | | | | + + + + + + | Protein, | 6.1 (L)Comment: Testing | 6.3 - 8.2 g/dL | EXTERNAL | | | Total | performed at [facility] | | LAB | | | | [address];[place] | | | | | | [address] | | | | + + + + + + | Albumin | 2.9 (L)Comment: Testing | 3.3 - 4.8 g/dL | EXTERNAL | | | | performed at [facility] | | LAB | | | | [address];[place] | | | | | | [address] | | | | + + + + + + | Globulin | 3.2Comment: Testing | 1.3 - 4.9 g/dL | EXTERNAL | | | | performed at [facility] | | LAB | | | | [address];[place] | | | | | | [address] | | | | + + + + + + | A/G Ratio | 0.9 (L)Comment: Testing | 1.0 - 2.4 | EXTERNAL | | | | performed at [facility] | | LAB | | | | [address];[place] | | | | | | [address] | | | | + + + + + + | Bilirubin | 0.5Comment: Testing | 0.1 - 1.5 mg/dL | EXTERNAL | | | Total | performed at [facility] | | LAB | | | | [address];[place] | | | | | | [address] | | | | + + + + + + | ALP, | 65Comment: Testing | 35 - 115 U/L | EXTERNAL | | | External | performed at [facility] | | LAB | | | | [address];[place] | | | | | | [address] | | | | + + + + + + | AST | 36Comment: SLT | 10 - 45 U/L | EXTERNAL | | | | HEMOLYSISTesting | | LAB | | | | performed at [facility] | | | | | | [address];[place] | | | | | | [address] | | | | + + + + + + | ALT | 35Comment: Testing | 10 - 65 U/L | EXTERNAL | | | | performed at [facility];[address] | | LAB | | | | [address];[place] | | | | | | [address] | | | | + + + [...] | | | | | | at [facility];[address] | | | | | | [address];[place] [address] | | | | + + + + + + + + | Specimen | + + | Blood specimen | | (specimen) | + + + +---------+ + + | Performing | Address | City/State/Zipcode | Phone Number | | Organization | | | | + +---------+ + + | EXTERNAL LAB | | | | + +---------+ + + PTT (09/14/2013 4:40 AM PDT) + + + + + + | Component | Value | Ref Range | Performed | Pathologist | | | | | At | Signature | + + + + + + | aPTT, | 42 (H)Comment: Testing | 23 - 32 seconds | EXTERNAL | | | Patient | performed at [facility] | | LAB | | | | [address];[place], [place] | | | | | | [address] | | | | + + + + + + + + | Specimen | + + | Blood specimen | | (specimen) | + + + +---------+ + + | Performing | Address | City/State/Zipcode | Phone Number | | Organization | | | | + +---------+ + + | EXTERNAL LAB | | | | + +---------+ + + CBC with Manual Differential (09/14/2013 4:40 AM PDT) + + + + + + | Component | Value | Ref Range | Performed | Pathologist | | | | | At | Signature | + + + + + + | WBC | 7.3Comment: Testing | 3.8 - 11.0 K/uL | EXTERNAL | | | | performed at [facility], [address] | | LAB | | | | [address], | | | | | | [place] [address] | | | | + + + + + + | RED CELL | 3.58 (L)Comment: Testing | 3.70 - 5.10 | EXTERNAL | | | COUNT | performed at [facility], [address] | M/uL | LAB | | | | [address], | | | | | | [place] [address] | | | | + + + + + + | Hgb | 11.7Comment: Testing | 11.3 - 15.5 | EXTERNAL | | | | performed at [facility], [address] | g/dL | LAB | | | | [address], | | | | | | [place] [address] | | | | + + + + + + | Hematocrit, | 34.6Comment: Testing | 34.0 - 46.0 % | EXTERNAL | | | POC | performed at [facility], [address] | | LAB | | | | [address], | | | | | | [place] [address] | | | | + + + + + + | MCV | 96.6Comment: Testing | 80.0 - 100.0 fl | EXTERNAL | | | | performed at [facility], [address] | | LAB | | | | [address], | | | | | | [place] [address] | | | | + + + + + + | MCH | 32.6Comment: Testing | 27.0 - 34.0 pg | EXTERNAL | | | | performed at [facility], [address] | | LAB | | | | [address], | | | | | | [place] [address] | | | | + + + + + + | MCHC | 33.7Comment: Testing | 32.0 - 35.5 | EXTERNAL | | | | performed at [facility], [address] | g/dL | LAB | | | | [address], | | | | | | [place] [address] | | | | + + + + + + | RDW-CV | 47.3Comment: Testing | 37 - 53 fl | EXTERNAL | | | | performed at [facility], [address] | | LAB | | | | [address], | | | | | | [place] [address] | | | | + + + + + + | Platelet | 177Comment: Testing | 150 - 400 K/uL | EXTERNAL | | | Count | performed at [facility], [address] | | LAB | | | Plasma | [address], | | | | | | [place] [address] | | | | + + + + + + | MPV | 9.0Comment: Testing | fl | EXTERNAL | | | | performed at [facility], [address] | | LAB | | | | [address], | | | | | | [place] [address] | | | | + + + + + + | Differentia | MANUALComment: Testing | | EXTERNAL | | | l Type | performed at [facility], [address] | | LAB | | | | [address], | | | | | | [place] [address] | | | | + + + + + + | Segmented | 61Comment: Testing | % | EXTERNAL | | | Neutrophils | performed at [facility], [address] | | LAB | | | Manual | [address], | | | | | | [place] [address] | | | | + + + + + + | % Bands | 2Comment: Testing | % | EXTERNAL | | | | performed at [facility], [address] | | LAB | | | | [address], | | | | | | [place] [address] | | | | + + + + + + | Lymphocytes | 22Comment: Testing | % | EXTERNAL | | | Manual | performed at [facility], [address] | | LAB | | | | [address], | | | | | | [place], [place] [address] | | | | + + + + + + | Monocytes | 12Comment: Testing | % | EXTERNAL | | | Manual | performed at [facility], [address] | | LAB | | | | [address], | | | | | | [place] [address] | | | | + + + + + + | Eosinophils | 3Comment: Testing | % | EXTERNAL | | | Manual | performed at [facility], [address] | | LAB | | | | [address], | | | | | | [place] [address] | | | | + + + + + + | Absolute | 4.5Comment: Testing | 1.9 - 7.4 K/uL | EXTERNAL | | | Neutrophils | performed at [facility], [address] | | LAB | | | | [address], | | | | | | [place] [address] | | | | + + + + + + | Bands | 0.1Comment: Testing | 0 - 0.2 K/uL | EXTERNAL | | | Manual | performed at [facility], [address] | | LAB | | | | [address], | | | | | | [place] [address] | | | | + + + + + + | Absolute | 1.6Comment: Testing | 1.0 - 3.9 K/uL | EXTERNAL | | | Lymphocytes | performed at [facility], [address] | | LAB | | | | [address], | | | | | | [place] [address] | | | | + + + + + + | Absolute | 0.9 (H)Comment: Testing | 0 - 0.8 K/uL | EXTERNAL | | | Monocytes | performed at [facility], [address] | | LAB | | | | [address], | | | | | | [place] [address] | | | | + + + + + + | Absolute | 0.2Comment: Testing | 0 - 0.5 K/uL | EXTERNAL | | | Eosinophils | performed at [facility], [address] | | LAB | | | | [address], | | | | | | [place] [address] | | | | + + + + + + | RBC | RBC AND PLT MORPHOLOGY | | EXTERNAL | | | Morphology | APPEAR NORMALComment: | | LAB | | | | Testing performed at | | | | | | [facility], [address] | | | | | | [place] | | | | | | [address] | | | | + + + + + + + + | Specimen | + + | Blood specimen | | (specimen) | + + + +---------+ + + | Performing | Address | City/State/Zipcode | Phone Number | | Organization | | | | + +---------+ + + | EXTERNAL LAB | | | | + +---------+ + + Phosphorus (09/14/2013 4:40 AM PDT) + + + + + + | Component | Value | Ref Range | Performed | Pathologist | | | | | At | Signature | + + + + + + | PHOSPHORUS | 3.2Comment: Testing | 2.3 - 4.8 mg/dL | EXTERNAL | | | | performed at [facility], [address] | | LAB | | | | [address], | | | | | | [place] [address] | | | | + + + + + + + + | Specimen | + + | Blood specimen | | (specimen) | + + + +---------+ + + | Performing | Address | City/State/Zipcode | Phone Number | | Organization | | | | + +---------+ + + | EXTERNAL LAB | | | | + +---------+ + + Magnesium (09/14/2013 4:40 AM PDT) + + + + + + | Component | Value | Ref Range | Performed | Pathologist | | | | | At | Signature | + + + + + + | Magnesium | 1.8Comment: Testing | 1.7 - 2.4 mg/dL | EXTERNAL | | | | performed at [facility], [address] | | LAB | | | | [address], | | | | | | [place] [address] | | | | + + + [...] + +---------+ + + Comprehensive Metabolic Panel (09/14/2013 4:40 AM PDT) + + + + + + | Component | Value | Ref Range | Performed | Pathologist | | | | | At | Signature | + + + + + + | Na | 135Comment: Testing | 135 - 143 | EXTERNAL | | | | performed at [facility], [address] | mmol/L | LAB | | | | [address], | | | | | | [place] [address] | | | | + + + + + + | K | 3.5Comment: Testing | 3.5 - 4.9 | EXTERNAL | | | | performed at [facility], [address] | mmol/L | LAB | | | | [address], | | | | | | [place] [address] | | | | + + + + + + | Cl | 101Comment: Testing | 99 - 109 mmol/L | EXTERNAL | | | | performed at [facility], [address] | | LAB | | | | [address], | | | | | | [place] [address] | | | | + + + + + + | CO2 | 26Comment: Testing | 23 - 32 mmol/L | EXTERNAL | | | | performed at [facility], [address] | | LAB | | | | [address], | | | | | | [place] [address] | | | | + + + + + + | Anion Gap | 12Comment: Testing | 5 - 20 mmol/L | EXTERNAL | | | | performed at [facility], [address] | | LAB | | | | [address], | | | | | | [place] [address] | | | | + + + + + + | Glucose, | 109 (H)Comment: Testing | 65 - 99 mg/dL | EXTERNAL | | | Fasting | performed at [facility], [address] | | LAB | | | | [address], | | | | | | [place] [address] | | | | + + + + + + | BUN | 21Comment: Testing | 8 - 25 mg/dL | EXTERNAL | | | | performed at [facility], [address] | | LAB | | | | [address], | | | | | | [place] [address] | | | | + + + + + + | Creatinine | 0.93Comment: Testing | 0.50 - 1.00 | EXTERNAL | | | | performed at [facility], [address] | mg/dL | LAB | | | | [address], | | | | | | [place] [address] | | | | + + + + + + | BUN/Creatin | 23Comment: Testing | | EXTERNAL | | | ine Ratio | performed at [facility], [address] | | LAB | | | | [address], | | | | | | [place] [address] | | | | + + + + + + | Calcium | 8.6Comment: Testing | 8.5 - 10.2 | EXTERNAL | | | | performed at [facility], [address] | mg/dL | LAB | | | | [address], | | | | | | [place] [address] | | | | + + + + + + | Protein, | 5.7 (L)Comment: Testing | 6.3 - 8.2 g/dL | EXTERNAL | | | Total | performed at [facility], [address] | | LAB | | | | [address], | | | | | | [place] [address] | | | | + + + + + + | Albumin | 3.3Comment: Testing | 3.3 - 4.8 g/dL | EXTERNAL | | | | performed at [facility], [address] | | LAB | | | | [address], | | | | | | [place] [address] | | | | + + + + + + | Globulin | 2.4Comment: Testing | 1.3 - 4.9 g/dL | EXTERNAL | | | | performed at [facility], [address] | | LAB | | | | [address], | | | | | | [place] [address] | | | | + + + + + + | A/G Ratio | 1.4Comment: Testing | 1.0 - 2.4 | EXTERNAL | | | | performed at [facility], [address] | | LAB | | | | [address], | | | | | | [place] [address] | | | | + + + + + + | Bilirubin | 0.5Comment: Testing | 0.1 - 1.5 mg/dL | EXTERNAL | | | Total | performed at [facility], [address] | | LAB | | | | [address], | | | | | | [place], [place] [address] | | | | + + + + + + | ALP, | 59Comment: Testing | 35 - 115 U/L | EXTERNAL | | | External | performed at [facility], [address] | | LAB | | | | [address], | | | | | | [place], [place] [address] | | | | + + + + + + | AST | 23Comment: Testing | 10 - 45 U/L | EXTERNAL | | | | performed at [facility], [address] | | LAB | | | | [address], | | | | | | [place] [address] | | | | + + + + + + | ALT | 28Comment: Testing | 10 - 65 U/L | EXTERNAL | | | | performed at [facility], [address] | | LAB | | | | [address], | | | | | | [place] [address] | | | | + + + [...] | | | | | | at [facility], [address] | | | | | | [facility], | | | | | | [place] [address] | | | | + + + + + + + + | Specimen | + + | Blood specimen | | (specimen) | + + + +---------+ + + | Performing | Address | City/State/Zipcode | Phone Number | | Organization | | | | + +---------+ + + | EXTERNAL LAB | | | | + +---------+ + + CV CARDIAC PROCEDURE (09/13/2013 9:10 AM PDT) + + | Specimen | + + | | + + + + + | Narrative | Performed At | + + + | | | | | | | BRIEF HISTORY This is a 83-year-old lady who presented with | | | heart failure and was found to have significant cardiomyopathy, who | | | was referred for coronary angiography and possible coronary | | | interventions. For details regarding her presentation, kindly refer | | | to Dr. Bynum's consultation note. PROCEDURES 1. Radial artery | | | approach. 2. Selective coronary angiography. 3. Left heart | | | catheterization with left ventriculogram. ESTIMATED BLOOD LOSS | | | Less than 50 mL. DESCRIPTION OF PROCEDURE The patient was brought | | | to the catheterization lab in the fasting state. She was prepped and | | | draped in the usual sterile fashion. The right groin was | | | anesthetized with 1% lidocaine. A 6-Argentine arterial sheath was placed | | | in the right femoral artery, and a 6-Argentine JL4 catheter was advanced | | | under fluoroscopic guidance and engaged with the ostium of the left | | | main coronary artery, and multiple projections of the left coronary | | | system were done with the use of contrast injections. The catheter | | | was then exchanged for a 6-Argentine JR4 catheter which was engaged with | | | the ostium of the right coronary artery and multiple projections of | | | the right coronary system were obtained with the use of contrast | | | injections. The catheter was then exchanged for a 6-Argentine pigtail | | | catheter which was advanced into the left ventricle and projections | | | of left ventricular function were done with the use of contrast | | | injections. FINDINGS CONTRAST USED 96 mL. HEMODYNAMICS | | | Pressures: Aortic pressure 113/62 with a mean of 82. LV 111/6 with an | | | end-diastolic of 26. CORONARY ANGIOGRAPHY The coronary system | | | was right dominant. 1. The left main trifurcated into LAD, ramus | | | branch, and left circumflex. Left main was calcified but free of | | | disease. 2. Left anterior descending artery has an ostial lesion | | | estimated to be around 70%. In the mid vessel there is a long severe | | | typical stenosis estimated to be around 90%. However, the distal LAD | | | is free of disease. The first diagonal branch has minimal | | | atherosclerosis. 3. Ramus branch has an ostial lesion estimated to be | | | around 90%. In the mid vessel there is a 95% focal lesion. The ramus | | | branch is a large vessel with excellent target distally. 4. Left | | | circumflex coronary artery has 70% tandem lesions in the | | | [id number] vessel. The principal marginal branch was free of | | | disease. 5. Right coronary artery has a 50% proximal lesion. PDA and | | | MIRA branches were free of significant disease. LEFT | | | VENTRICULOGRAM The left ventriculogram in RODRIGUEZ view showed dilated LV | | | with ejection fraction of 25%. CONCLUSIONS AND RECOMMENDATIONS | | | 1. Severe ischemic cardiomyopathy. 2. Three-vessel coronary artery | | | disease. 3. Recommend coronary artery bypass surgery and intensive | | | medical therapy. Read by KENIA DENT MD 09/15/2013 06:44 A | | | | | + + + + + | Procedure Note | + + | César Hawkins Conversion - 12/01/2018 2:20 PM PDT | | | | BRIEF HISTORY | | This is a 83-year-old lady who presented with heart failure and | | was found to have significant cardiomyopathy, who was referred for | | coronary angiography and possible coronary interventions. For details | | regarding her presentation, kindly refer to Dr. Bynum's consultation note. | | | | PROCEDURES | | 1. Radial artery approach. | | 2. Selective coronary angiography. | | 3. Left heart catheterization with left ventriculogram. | | | | ESTIMATED BLOOD LOSS | | Less than 50 mL. | | | | DESCRIPTION OF PROCEDURE | | The patient was brought to the catheterization lab in the fasting state. | | She was prepped and draped in the usual sterile fashion. The right groin | | was anesthetized with 1% lidocaine. A 6-Argentine arterial sheath was placed | | in the right femoral artery, and a 6-Argentine JL4 catheter was advanced | | under fluoroscopic guidance and engaged with the ostium of the left main | | coronary artery, and multiple projections of the left coronary system were | | done with the use of contrast injections. The catheter was then exchanged | | for a 6-Argentine JR4 catheter which was engaged with the ostium of the right | | coronary artery and multiple projections of the right coronary system were | | obtained with the use of contrast injections. The catheter was then | | exchanged for a 6-Argentine pigtail catheter which was advanced into the left | | ventricle and projections of left ventricular function were done with the | | use of contrast injections. | | | | FINDINGS | | | | CONTRAST USED | | 96 mL. | | | | HEMODYNAMICS | | Pressures: Aortic pressure 113/62 with a mean of 82. LV 111/6 with an | | end-diastolic of 26. | | | | CORONARY ANGIOGRAPHY | | The coronary system was right dominant. | | 1. The left main trifurcated into LAD, ramus branch, and left circumflex. | | Left main was calcified but free of disease. | | 2. Left anterior descending artery has an ostial lesion estimated to be | | around 70%. In the mid vessel there is a long severe typical stenosis | | estimated to be around 90%. However, the distal LAD is free of disease. | | The first diagonal branch has minimal atherosclerosis. | | 3. Ramus branch has an ostial lesion estimated to be around 90%. In the | | mid vessel there is a 95% focal lesion. The ramus branch is a large | | vessel with excellent target distally. | | 4. Left circumflex coronary artery has 70% tandem lesions in the | | gwxugcre-op-vat vessel. The principal marginal branch was free of | | disease. | | 5. Right coronary artery has a 50% proximal lesion. PDA and MIRA branches | | were free of significant disease. | | | | LEFT VENTRICULOGRAM | | The left ventriculogram in RODRIGUEZ view showed dilated LV with ejection | | fraction of 25%. | | | | CONCLUSIONS AND RECOMMENDATIONS | | 1. Severe ischemic cardiomyopathy. | | 2. Three-vessel coronary artery disease. | | 3. Recommend coronary artery bypass surgery and intensive medical therapy. | | | | | | Read by KENIA DENT MD 09/15/2013 06:44 A | | | | | + + PTT (09/13/2013 4:43 AM PDT) + + + + + + | Component | Value | Ref Range | Performed | Pathologist | | | | | At | Signature | + + + + + + | aPTT, | 45 (H)Comment: Testing | 23 - 32 seconds | EXTERNAL | | | Patient | [place] [facility] [place] | | [place] | | | | [facility];[place], [place] | | | | | | [address] | | | | + + + [...] + +---------+ + + External Lab: CBC (09/13/2013 4:43 AM PDT) + + + + + + | Component | Value | Ref Range | Performed | Pathologist | | | | | At | Signature | + + + + + + | WBC | 7.9Comment: Testing | 3.8 - 11.0 K/uL | EXTERNAL | | | | performed at [facility], [address] | | LAB | | | | [address], | | | | | | [place] [address] | | | | + + + + + + | RED CELL | 3.74Comment: Testing | 3.70 - 5.10 | EXTERNAL | | | COUNT | performed at [facility], [address] | M/uL | LAB | | | | [address], | | | | | | [place] [address] | | | | + + + + + + | Hgb | 12.2Comment: Testing | 11.3 - 15.5 | EXTERNAL | | | | performed at [facility], [address] | g/dL | LAB | | | | [address], | | | | | | [place] [address] | | | | + + + + + + | Hematocrit, | 36.5Comment: Testing | 34.0 - 46.0 % | EXTERNAL | | | POC | performed at [facility], [address] | | LAB | | | | [address], | | | | | | [place] [address] | | | | + + + + + + | MCV | 97.4Comment: Testing | 80.0 - 100.0 fl | EXTERNAL | | | | performed at [facility], [address] | | LAB | | | | [address], | | | | | | [place] [address] | | | | + + + + + + | MCH | 32.5Comment: Testing | 27.0 - 34.0 pg | EXTERNAL | | | | performed at [facility], [address] | | LAB | | | | [address], | | | | | | [place] [address] | | | | + + + + + + | MCHC | 33.4Comment: Testing | 32.0 - 35.5 | EXTERNAL | | | | performed at [facility], [address] | g/dL | LAB | | | | [address], | | | | | | [place] [address] | | | | + + + + + + | RDW-CV | 45.9Comment: Testing | 37 - 53 fl | EXTERNAL | | | | performed at [facility], [address] | | LAB | | | | [address], | | | | | | [place] [address] | | | | + + + + + + | Platelet | 198Comment: Testing | 150 - 400 K/uL | EXTERNAL | | | Count | performed at [facility], [address] | | LAB | | | Plasma | [address], | | | | | | [place] [address] | | | | + + + + + + | MPV | 9.1Comment: Testing | fl | EXTERNAL | | | | performed at [facility], [address] | | LAB | | | | [address], | | | | | | [place] [address] | | | | + + + + + + | Differentia | AUTOMATEDComment: | | EXTERNAL | | | l Type | Testing performed at | | LAB | | | | [facility], [address] | | | | | | [place] | | | | | | [address] | | | | + + + + + + | % Segmented | 59.8Comment: Testing | % | EXTERNAL | | | | performed at [facility], [address] | | LAB | | | Neutrophils | [address], | | | | | | [place] [address] | | | | + + + + + + | % | 23.8Comment: Testing | % | EXTERNAL | | | Lymphocytes | performed at [facility], [address] | | LAB | | | | [address], | | | | | | [place] [address] | | | | + + + + + + | % Monocytes | 11.0Comment: Testing | % | EXTERNAL | | | | performed at [facility], [address] | | LAB | | | | [address], | | | | | | [place] [address] | | | | + + + + + + | % | 4.2Comment: Testing | % | EXTERNAL | | | Eosinophils | performed at [facility], [address] | | LAB | | | | [address], | | | | | | [place] [address] | | | | + + + + + + | % Basophils | 1.2Comment: Testing | % | EXTERNAL | | | | performed at [facility], [address] | | LAB | | | | [address], | | | | | | [place] [address] | | | | + + + + + + | Absolute | 4.7Comment: Testing | 1.9 - 7.4 K/uL | EXTERNAL | | | Segmented | performed at [facility], [address] | | LAB | | | Neutrophils | [address], | | | | | | [place] [address] | | | | + + + + + + | Absolute | 1.9Comment: Testing | 1.0 - 3.9 K/uL | EXTERNAL | | | Lymphocytes | performed at [facility], [address] | | LAB | | | | [address], | | | | | | [place] [address] | | | | + + + + + + | Absolute | 0.9 (H)Comment: Testing | 0 - 0.8 K/uL | EXTERNAL | | | Monocytes | performed at [facility], [address] | | LAB | | | | [address], | | | | | | [place] [address] | | | | + + + + + + | Absolute | 0.3Comment: Testing | 0 - 0.5 K/uL | EXTERNAL | | | Eosinophils | performed at [facility], [address] | | LAB | | | | [address], | | | | | | [place] [address] | | | | + + + + + + | Absolute | 0.1Comment: Testing | 0 - 0.1 K/uL | EXTERNAL | | | Basophils | performed at [facility], [address] | | LAB | | | | [address], | | | | | | [place] [address] | | | | + + + [...] + +---------+ + + Comprehensive Metabolic Panel (09/13/2013 4:43 AM PDT) + + + + + [...] | | | | | [place] [address] | | | | + + + + + + | K | 3.4 (L)Comment: Testing | 3.5 - 4.9 | EXTERNAL | | | | performed at [facility], [address] | mmol/L | LAB | | | | [address], | | | | | | [place] [address] | | | | + + + + + + | Cl | 101Comment: Testing | 99 - 109 mmol/L | EXTERNAL | | | | performed at [facility], [address] | | LAB | | | | [address], | | | | | | [place] [address] | | | | + + + + + + | CO2 | 26Comment: Testing | 23 - 32 mmol/L | EXTERNAL | | | | performed at [facility], [address] | | LAB | | | | [address], | | | | | | [place] [address] | | | | + + + + + + | Anion Gap | 11Comment: Testing | 5 - 20 mmol/L | EXTERNAL | | | | performed at [facility], [address] | | LAB | | | | [address], | | | | | | [place] [address] | | | | + + + + + + | Glucose, | 119 (H)Comment: Testing | 65 - 99 mg/dL | EXTERNAL | | | Fasting | performed at [facility], [address] | | LAB | | | | [address], | | | | | | [place] [address] | | | | + + + + + + | BUN | 29 (H)Comment: Testing | 8 - 25 mg/dL | EXTERNAL | | | | performed at [facility], [address] | | LAB | | | | [address], | | | | | | [place] [address] | | | | + + + + + + | Creatinine | 0.94Comment: Testing | 0.50 - 1.00 | EXTERNAL | | | | performed at [facility], [address] | mg/dL | LAB | | | | [address], | | | | | | [place] [address] | | | | + + + + + + | BUN/Creatin | 31Comment: Testing | | EXTERNAL | | | ine Ratio | performed at [facility], [address] | | LAB | | | | [address], | | | | | | [place] [address] | | | | + + + + + + | Calcium | 8.8Comment: Testing | 8.5 - 10.2 | EXTERNAL | | | | performed at [facility], [address] | mg/dL | LAB | | | | [address], | | | | | | [place] [address] | | | | + + + + + + | Protein, | 5.8 (L)Comment: Testing | 6.3 - 8.2 g/dL | EXTERNAL | | | Total | performed at [facility], [address] | | LAB | | | | [address], | | | | | | [place] [address] | | | | + + + + + + | Albumin | 3.6Comment: Testing | 3.3 - 4.8 g/dL | EXTERNAL | | | | performed at [facility], [address] | | LAB | | | | [address], | | | | | | [place] [address] | | | | + + + + + + | Globulin | 2.2Comment: Testing | 1.3 - 4.9 g/dL | EXTERNAL | | | | performed at [facility], [address] | | LAB | | | | [address], | | | | | | [place] [address] | | | | + + + + + + | A/G Ratio | 1.6Comment: Testing | 1.0 - 2.4 | EXTERNAL | | | | performed at [facility], [address] | | LAB | | | | [address], | | | | | | [place] [address] | | | | + + + + + + | Bilirubin | 0.6Comment: Testing | 0.1 - 1.5 mg/dL | EXTERNAL | | | Total | performed at [facility], [address] | | LAB | | | | [address], | | | | | | [place] [address] | | | | + + + + + + | ALP, | 64Comment: Testing | 35 - 115 U/L | EXTERNAL | | | External | performed at [facility], [address] | | LAB | | | | [address], | | | | | | [place] [address] | | | | + + + + + + | AST | 30Comment: Testing | 10 - 45 U/L | EXTERNAL | | | | performed at [facility], [address] | | LAB | | | | [address], | | | | | | [place] [address] | | | | + + + + + + | ALT | 35Comment: Testing | 10 - 65 U/L | EXTERNAL | | | | performed at [facility], [address] | | LAB | | | | [address], | | | | | | [place] [address] | | | | + + + [...] | | | | | | at [facility], [address] | | | | | | [address], | | | | | | [place] [address] | | | | + + + + + + + + | Specimen | + + | | + + + +---------+ + + | Performing | Address | City/State/Zipcode | Phone Number | | Organization | | | | + +---------+ + + | EXTERNAL LAB | | | | + +---------+ + + PTT (09/13/2013 12:29 AM PDT) + + + + + + | Component | Value | Ref Range | Performed | Pathologist | | | | | At | Signature | + + + + + + | aPTT, | 46 (H)Comment: Testing | 23 - 32 seconds | EXTERNAL | | | Patient | performed at [facility] | | LAB | | | | [address];[place] | | | | | | [address] | | | | + + + + + + + + | Specimen | + + | Blood specimen | | (specimen) | + + + +---------+ + + | Performing | Address | City/State/Zipcode | Phone Number | | Organization | | | | + +---------+ + + | EXTERNAL LAB | | | | + +---------+ + + MRSA NAAT (09/12/2013 10:04 PM PDT) + + | Specimen | + + | | + + + + + | Narrative | Performed At | + + + | [facility](NOSE) | EXTERNAL LAB | | Testing performed at [address];[place] [address] MRSA PCR | | | NEGATIVE Testing performed at | | | [facility] [place] [address];[place] [address] | | + + + + +---------+ + + | Performing | Address | City/State/Zipcode | Phone Number | | Organization | | | | + +---------+ + + | EXTERNAL LAB | | | | + +---------+ + + PTT (09/12/2013 6:55 PM PDT) + + + + + + | Component | Value | Ref Range | Performed | Pathologist | | | | | At | Signature | + + + + + + | aPTT, | 42 (H)Comment: Testing | 23 - 32 seconds | EXTERNAL | | | Patient | performed at [facility] | | LAB | | | | [address];[place], [place] | | | | | | [address] | | | | + + + [...] + +---------+ + + Comprehensive Metabolic Panel (09/12/2013 6:55 PM PDT) + + + + + + | Component | Value | Ref Range | Performed | Pathologist | | | | | At | Signature | + + + + + + | Na | 133 (L)Comment: Testing | 135 - 143 | EXTERNAL | | | | performed at [facility], [address] | mmol/L | LAB | | | | [address], | | | | | | [place] [address] | | | | + + + + + + | K | 3.4 (L)Comment: Testing | 3.5 - 4.9 | EXTERNAL | | | | performed at [facility], [address] | mmol/L | LAB | | | | [address], | | | | | | [place] [address] | | | | + + + + + + | Cl | 99Comment: Testing | 99 - 109 mmol/L | EXTERNAL | | | | performed at [facility], [address] | | LAB | | | | [address], | | | | | | [place] [address] | | | | + + + + + + | CO2 | 25Comment: Testing | 23 - 32 mmol/L | EXTERNAL | | | | performed at [facility], [address] | | LAB | | | | [address], | | | | | | [place] [address] | | | | + + + + + + | Anion Gap | 12Comment: Testing | 5 - 20 mmol/L | EXTERNAL | | | | performed at [facility], [address] | | LAB | | | | [address], | | | | | | [place] [address] | | | | + + + + + + | Glucose, | 163 (H)Comment: Testing | 65 - 99 mg/dL | EXTERNAL | | | Fasting | performed at [facility], [address] | | LAB | | | | [address], | | | | | | [place] [address] | | | | + + + + + + | BUN | 35 (H)Comment: Testing | 8 - 25 mg/dL | EXTERNAL | | | | performed at [facility], [address] | | LAB | | | | [address], | | | | | | [place] [address] | | | | + + + + + + | Creatinine | 1.23 (H)Comment: Testing | 0.50 - 1.00 | EXTERNAL | | | | performed at [facility], [address] | mg/dL | LAB | | | | [address], | | | | | | [place] [address] | | | | + + + + + + | BUN/Creatin | 28Comment: Testing | | EXTERNAL | | | ine Ratio | performed at [facility], [address] | | LAB | | | | [address], | | | | | | [place] [address] | | | | + + + + + + | Calcium | 8.8Comment: Testing | 8.5 - 10.2 | EXTERNAL | | | | performed at [facility], [address] | mg/dL | LAB | | | | [address], | | | | | | [place] [address] | | | | + + + + + + | Protein, | 6.2 (L)Comment: Testing | 6.3 - 8.2 g/dL | EXTERNAL | | | Total | performed at [facility], [address] | | LAB | | | | [address], | | | | | | [place] [address] | | | | + + + + + + | Albumin | 3.8Comment: Testing | 3.3 - 4.8 g/dL | EXTERNAL | | | | performed at [facility], [address] | | LAB | | | | [address], | | | | | | [place] [address] | | | | + + + + + + | Globulin | 2.4Comment: Testing | 1.3 - 4.9 g/dL | EXTERNAL | | | | performed at [facility], [address] | | LAB | | | [address], | | | | | | [place] [address] | | | | + + + + + + | A/G Ratio | 1.6Comment: Testing | 1.0 - 2.4 | EXTERNAL | | | | performed at [facility], [address] | | LAB | | | | [address], | | | | | | [place] [address] | | | | + + + + + + | Bilirubin | 0.5Comment: Testing | 0.1 - 1.5 mg/dL | EXTERNAL | | | Total | performed at [facility], [address] | | LAB | | | | [address], | | | | | | [place] [address] | | | | + + + + + + | ALP, | 69Comment: Testing | 35 - 115 U/L | EXTERNAL | | | External | performed at [facility], [address] | | LAB | | | | [address], | | | | | | [place] [address] | | | | + + + + + + | AST | 37Comment: Testing | 10 - 45 U/L | EXTERNAL | | | | performed at [facility], [address] | | LAB | | | | [address], | | | | | | [place] [address] | | | | + + + + + + | ALT | 40Comment: Testing | 10 - 65 U/L | EXTERNAL | | | | performed at [facility], [address] | | LAB | | | | [address], | | | | | | [place] [address] | | | | + + + + + + | Estimated | 44 (L)Comment: GFR <60: | mL/min/1.73m2 | EXTERNAL [...] [address], | | | | | | [place] [address] | | | | + + + + + + + + | Specimen | + + | Blood specimen | | (specimen) | + + + +---------+ + + | Performing | Address | City/State/Zipcode | Phone Number | | Organization | | | | + +---------+ + + | EXTERNAL LAB | | | | + +---------+ + + PTT (09/12/2013 11:50 AM PDT) + + + + + + | Component | Value | Ref Range | Performed | Pathologist | | | | | At | Signature | + + + + + + | aPTT, | 36 (H)Comment: Testing | 23 - 32 seconds | EXTERNAL | | | Patient | performed at [facility] | | LAB | | | | [address];[place] | | | | | | [address] | | | | + + + [...] + +---------+ + + Comprehensive Metabolic Panel (09/12/2013 11:50 AM PDT) + + + + + + | Component | Value | Ref Range | Performed | Pathologist | | | | | At | Signature | + + + + + + | Na | 134 (L)Comment: Testing | 135 - 143 | EXTERNAL | | | | performed at [facility], [address] | mmol/L | LAB | | | | [address], | | | | | | [place] [address] | | | | + + + + + + | K | 3.7Comment: Testing | 3.5 - 4.9 | EXTERNAL | | | | performed at [facility], [address] | mmol/L | LAB | | | | [address], | | | | | | [place] [address] | | | | + + + + + + | Cl | 100Comment: Testing | 99 - 109 mmol/L | EXTERNAL | | | | performed at [facility], [address] | | LAB | | | | [address], | | | | | | [place] [address] | | | | + + + + + + | CO2 | 24Comment: Testing | 23 - 32 mmol/L | EXTERNAL | | | | performed at [facility], [address] | | LAB | | | | [address], | | | | | | [place] [address] | | | | + + + + + + | Anion Gap | 14Comment: Testing | 5 - 20 mmol/L | EXTERNAL | | | | performed at [facility], [address] | | LAB | | | | [address], | | | | | | [place] [address] | | | | + + + + + + | Glucose, | 110 (H)Comment: Testing | 65 - 99 mg/dL | EXTERNAL | | | Fasting | performed at [facility], [address] | | LAB | | | | [address], | | | | | | [place] [address] | | | | + + + + + + | BUN | 35 (H)Comment: Testing | 8 - 25 mg/dL | EXTERNAL | | | | performed at [facility], [address] | | LAB | | | | [address], | | | | | | [place] [address] | | | | + + + + + + | Creatinine | 1.20 (H)Comment: Testing | 0.50 - 1.00 | EXTERNAL | | | | performed at [facility], [address] | mg/dL | LAB | | | | [address], | | | | | | [place] [address] | | | | + + + + + + | BUN/Creatin | 29Comment: Testing | | EXTERNAL | | | ine Ratio | performed at [facility], [address] | | LAB | | | | [address], | | | | | | [place] [address] | | | | + + + + + + | Calcium | 9.1Comment: Testing | 8.5 - 10.2 | EXTERNAL | | | | performed at [facility], [address] | mg/dL | LAB | | | | [address], | | | | | | [place] [address] | | | | + + + + + + | Protein, | 6.3Comment: Testing | 6.3 - 8.2 g/dL | EXTERNAL | | | Total | performed at [facility], [address] | | LAB | | | [address], | | | | | | [place] [address] | | | | + + + + + + | Albumin | 3.9Comment: Testing | 3.3 - 4.8 g/dL | EXTERNAL | | | | performed at [facility], [address] | | LAB | | | | [address], | | | | | | [place] [address] | | | | + + + + + + | Globulin | 2.4Comment: Testing | 1.3 - 4.9 g/dL | EXTERNAL | | | | performed at [facility], [address] | | LAB | | | | [address], | | | | | | [place] [address] | | | | + + + + + + | A/G Ratio | 1.6Comment: Testing | 1.0 - 2.4 | EXTERNAL | | | | performed at [facility], [address] | | LAB | | | | [address], | | | | | | [place] [address] | | | | + + + + + + | Bilirubin | 0.5Comment: Testing | 0.1 - 1.5 mg/dL | EXTERNAL | | | Total | performed at [facility], [address] | | LAB | | | | [address], | | | | | | [place] [address] | | | | + + + + + + | ALP, | 69Comment: Testing | 35 - 115 U/L | EXTERNAL | | | External | performed at [facility], [address] | | LAB | | | [address], | | | | | | [place] [address] | | | | + + + + + + | AST | 39Comment: Testing | 10 - 45 U/L | EXTERNAL | | | | performed at [facility], [address] | | LAB | | | | [address], | | | | | | [place] [address] | | | | + + + + + + | ALT | 42Comment: Testing | 10 - 65 U/L | EXTERNAL | | | | performed at [facility], [address] | | LAB | | | | [address], | | | | | | [place] [address] | | | | + + + [...] | | | | | | at [facility], [address] | | | | | | [address], | | | | | | [place] [address] | | | | + + + [...] + +---------+ + + Comprehensive Metabolic Panel (09/12/2013 10:45 AM PDT) + + + + + + | Component | Value | Ref Range | Performed | Pathologist | | | | | At | Signature | + + + + + + | Na | 134 (L)Comment: Testing | 135 - 143 | EXTERNAL | | | | performed at [facility], [address] | mmol/L | LAB | | | | [address], | | | | | | [place] [address] | | | | + + + + + + | K | 3.9Comment: Testing | 3.5 - 4.9 | EXTERNAL | | | | performed at [facility], [address] | mmol/L | LAB | | | | [address], | | | | | | [place] [address] | | | | + + + + + + | Cl | 101Comment: Testing | 99 - 109 mmol/L | EXTERNAL | | | | performed at [facility], [address] | | LAB | | | | [address], | | | | | | [place] [address] | | | | + + + + + + | CO2 | 26Comment: Testing | 23 - 32 mmol/L | EXTERNAL | | | | performed at [facility], [address] | | LAB | | | | [address], | | | | | | [place] [address] | | | | + + + + + + | Anion Gap | 11Comment: Testing | 5 - 20 mmol/L | EXTERNAL | | | | performed at [facility], [address] | | LAB | | | | [address], | | | | | | [place] [address] | | | | + + + + + + | Glucose, | 110 (H)Comment: Testing | 65 - 99 mg/dL | EXTERNAL | | | Fasting | performed at [facility], [address] | | LAB | | | | [address], | | | | | | [place] [address] | | | | + + + + + + | BUN | 35 (H)Comment: Testing | 8 - 25 mg/dL | EXTERNAL | | | | performed at [facility], [address] | | LAB | | | | [address], | | | | | | [place] [address] | | | | + + + + + + | Creatinine | 1.27 (H)Comment: Testing | 0.50 - 1.00 | EXTERNAL | | | | performed at [facility], [address] | mg/dL | LAB | | | | [address], | | | | | | [place] [address] | | | | + + + + + + | BUN/Creatin | 28Comment: Testing | | EXTERNAL | | | ine Ratio | performed at [facility], [address] | | LAB | | | | [address], | | | | | | [place] [address] | | | | + + + + + + | Calcium | 9.2Comment: Testing | 8.5 - 10.2 | EXTERNAL | | | | performed at [facility], [address] | mg/dL | LAB | | | | [address], | | | | | | [place] [address] | | | | + + + + + + | Protein, | 6.6Comment: Testing | 6.3 - 8.2 g/dL | EXTERNAL | | | Total | performed at [facility], [address] | | LAB | | | | [address], | | | | | | [place] [address] | | | | + + + + + + | Albumin | 4.0Comment: Testing | 3.3 - 4.8 g/dL | EXTERNAL | | | | performed at [facility], [address] | | LAB | | | | [address], | | | | | | [place] [address] | | | | + + + + + + | Globulin | 2.6Comment: Testing | 1.3 - 4.9 g/dL | EXTERNAL | | | | performed at [facility], [address] | | LAB | | | | [address], | | | | | | [place] [address] | | | | + + + + + + | A/G Ratio | 1.5Comment: Testing | 1.0 - 2.4 | EXTERNAL | | | | performed at [facility], [address] | | LAB | | | | [address], | | | | | | [place] [address] | | | | + + + + + + | Bilirubin | 0.5Comment: Testing | 0.1 - 1.5 mg/dL | EXTERNAL | | | Total | performed at [facility], [address] | | LAB | | | | [address], | | | | | | [place] [address] | | | | + + + + + + | ALP, | 71Comment: Testing | 35 - 115 U/L | EXTERNAL | | | External | performed at [facility], [address] | | LAB | | | | [address], | | | | | | [place] [address] | | | | + + + + + + | AST | 37Comment: Testing | 10 - 45 U/L | EXTERNAL | | | | performed at [facility], [address] | | LAB | | | | [address], | | | | | | [place] [address] | | | | + + + + + + | ALT | 44Comment: Testing | 10 - 65 U/L | EXTERNAL | | | | performed at [facility], [address] | | LAB | | | | [address], | | | | | | [place] [address] | | | | + + + [...] | | | | | | [address], | | | | | | [place] [address] | | | | + + + + + + + + | Specimen | + + | Blood specimen | | (specimen) | + + + +---------+ + + | Performing | Address | City/State/Zipcode | Phone Number | | Organization | | | | + +---------+ + + | EXTERNAL LAB | | | | + +---------+ + + PTT (09/12/2013 5:50 AM PDT) + + + + + + | Component | Value | Ref Range | Performed | Pathologist | | | | | At | Signature | + + + + + + | aPTT, | 42 (H)Comment: Testing | 23 - 32 seconds | EXTERNAL | | | Patient | [place] [facility] [place] | | [place] | | | | [address];[place], [place] | | | | | | [address] | | | | + + + [...] + +---------+ + + External Lab: CBC (09/12/2013 5:50 AM PDT) + + + + + + | Component | Value | Ref Range | Performed | Pathologist | | | | | At | Signature | + + + + + + | WBC | 8.6Comment: Testing | 3.8 - 11.0 K/uL | EXTERNAL | | | | performed at [facility], [address] | | LAB | | | | [address], | | | | | | [place] [address] | | | | + + + + + + | RED CELL | 3.82Comment: Testing | 3.70 - 5.10 | EXTERNAL | | | COUNT | performed at [facility], [address] | M/uL | LAB | | | | [address], | | | | | | [place] [address] | | | | + + + + + + | Hgb | 12.3Comment: Testing | 11.3 - 15.5 | EXTERNAL | | | | performed at [facility], [address] | g/dL | LAB | | | | [address], | | | | | | [place] [address] | | | | + + + + + + | Hematocrit, | 37.3Comment: Testing | 34.0 - 46.0 % | EXTERNAL | | | POC | performed at [facility], [address] | | LAB | | | | [address], | | | | | | [place] [address] | | | | + + + + + + | MCV | 97.5Comment: Testing | 80.0 - 100.0 fl | EXTERNAL | | | | performed at [facility], [address] | | LAB | | | | [address], | | | | | | [place] [address] | | | | + + + + + + | MCH | 32.1Comment: Testing | 27.0 - 34.0 pg | EXTERNAL | | | | performed at [facility], [address] | | LAB | | | | [address], | | | | | | [place] [address] | | | | + + + + + + | MCHC | 32.9Comment: Testing | 32.0 - 35.5 | EXTERNAL | | | | performed at [facility], [address] | g/dL | LAB | | | | [address], | | | | | | [place] [address] | | | | + + + + + + | RDW-CV | 46.8Comment: Testing | 37 - 53 fl | EXTERNAL | | | | performed at [facility], [address] | | LAB | | | | [address], | | | | | | [place] [address] | | | | + + + + + + | Platelet | 201Comment: Testing | 150 - 400 K/uL | EXTERNAL | | | Count | performed at [facility], [address] | | LAB | | | Plasma | [address], | | | | | | [place] [address] | | | | + + + + + + | MPV | 9.0Comment: Testing | fl | EXTERNAL | | | | performed at [facility], [address] | | LAB | | | | [address], | | | | | | [place] [address] | | | | + + + + + + | Differentia | AUTOMATEDComment: | | EXTERNAL | | | l Type | Testing performed at | | LAB | | | | [facility], [address] | | | | | | [place] | | | | | | [address] | | | | + + + + + + | % Segmented | 60.0Comment: Testing | % | EXTERNAL | | | | performed at [facility], [address] | | LAB | | | Neutrophils | [address], | | | | | | [place] [address] | | | | + + + + + + | % | 24.7Comment: Testing | % | EXTERNAL | | | Lymphocytes | performed at [facility], [address] | | LAB | | | | [address], | | | | | | [place] [address] | | | | + + + + + + | % Monocytes | 10.7Comment: Testing | % | EXTERNAL | | | | performed at [facility], [address] | | LAB | | | | [address], | | | | | | [place] [address] | | | | + + + + + + | % | 3.5Comment: Testing | % | EXTERNAL | | | Eosinophils | performed at [facility], [address] | | LAB | | | | [address], | | | | | | [place] [address] | | | | + + + + + + | % Basophils | 1.1Comment: Testing | % | EXTERNAL | | | | performed at [facility], [address] | | LAB | | | | [address], | | | | | | [place] [address] | | | | + + + + + + | Absolute | 5.1Comment: Testing | 1.9 - 7.4 K/uL | EXTERNAL | | | Segmented | performed at [facility], [address] | | LAB | | | Neutrophils | [address], | | | | | | [place] [address] | | | | + + + + + + | Absolute | 2.1Comment: Testing | 1.0 - 3.9 K/uL | EXTERNAL | | | Lymphocytes | performed at [facility], [address] | | LAB | | | | [address], | | | | | | [place] [address] | | | | + + + + + + | Absolute | 0.9 (H)Comment: Testing | 0 - 0.8 K/uL | EXTERNAL | | | Monocytes | performed at [facility], [address] | | LAB | | | | [address], | | | | | | [place] [address] | | | | + + + + + + | Absolute | 0.3Comment: Testing | 0 - 0.5 K/uL | EXTERNAL | | | Eosinophils | performed at [facility], [address] | | LAB | | | | [address], | | | | | | [place] [address] | | | | + + + + + + | Absolute | 0.1Comment: Testing | 0 - 0.1 K/uL | EXTERNAL | | | Basophils | performed at [facility], [address] | | LAB | | | | [address], | | | | | | [place] [address] | | | | + + + + + + + + | Specimen | + + | | + + + +---------+ + + | Performing | Address | City/State/Zipcode | Phone Number | | Organization | | | | + +---------+ + + | EXTERNAL LAB | | | | + +---------+ + + Comprehensive Metabolic Panel (09/12/2013 5:50 AM PDT) + + + + + [...] | | | | | [place] [address] | | | | + + + + + + | K | 3.6Comment: Testing | 3.5 - 4.9 | EXTERNAL | | | | performed at [facility], [address] | mmol/L | LAB | | | | [address], | | | | | | [place] [address] | | | | + + + + + + | Cl | 104Comment: Testing | 99 - 109 mmol/L | EXTERNAL | | | | performed at [facility], [address] | | LAB | | | | [address], | | | | | | [place] [address] | | | | + + + + + + | CO2 | 25Comment: Testing | 23 - 32 mmol/L | EXTERNAL | | | | performed at [facility], [address] | | LAB | | | | [address], | | | | | | [place] [address] | | | | + + + + + + | Anion Gap | 11Comment: Testing | 5 - 20 mmol/L | EXTERNAL | | | | performed at [facility], [address] | | LAB | | | | [address], | | | | | | [place] [address] | | | | + + + + + + | Glucose, | 114 (H)Comment: Testing | 65 - 99 mg/dL | EXTERNAL | | | Fasting | performed at [facility], [address] | | LAB | | | | [address], | | | | | | [place] [address] | | | | + + + + + + | BUN | 33 (H)Comment: Testing | 8 - 25 mg/dL | EXTERNAL | | | | performed at [facility], [address] | | LAB | | | | [address], | | | | | | [place] [address] | | | | + + + + + + | Creatinine | 1.20 (H)Comment: Testing | 0.50 - 1.00 | EXTERNAL | | | | performed at [facility], [address] | mg/dL | LAB | | | | [address], | | | | | | [place] [address] | | | | + + + + + + | BUN/Creatin | 28Comment: Testing | | EXTERNAL | | | ine Ratio | performed at [facility], [address] | | LAB | | | | [address], | | | | | | [place] [address] | | | | + + + + + + | Calcium | 8.7Comment: Testing | 8.5 - 10.2 | EXTERNAL | | | | performed at [facility], [address] | mg/dL | LAB | | | | [address], | | | | | | [place] [address] | | | | + + + + + + | Protein, | 6.0 (L)Comment: Testing | 6.3 - 8.2 g/dL | EXTERNAL | | | Total | performed at [facility], [address] | | LAB | | | | [address], | | | | | | [place] [address] | | | | + + + + + + | Albumin | 3.7Comment: Testing | 3.3 - 4.8 g/dL | EXTERNAL | | | | performed at [facility], [address] | | LAB | | | | [address], | | | | | | [place] [address] | | | | + + + + + + | Globulin | 2.3Comment: Testing | 1.3 - 4.9 g/dL | EXTERNAL | | | | performed at [facility], [address] | | LAB | | | | [address], | | | | | | [place] [address] | | | | + + + + + + | A/G Ratio | 1.6Comment: Testing | 1.0 - 2.4 | EXTERNAL | | | | performed at [facility], [address] | | LAB | | | | [address], | | | | | | [place] [address] | | | | + + + + + + | Bilirubin | 0.5Comment: Testing | 0.1 - 1.5 mg/dL | EXTERNAL | | | Total | performed at [facility], [address] | | LAB | | | | [address], | | | | | | [place] [address] | | | | + + + + + + | ALP, | 65Comment: Testing | 35 - 115 U/L | EXTERNAL | | | External | performed at [facility], [address] | | LAB | | | | [address], | | | | | | [place] [address] | | | | + + + + + + | AST | 37Comment: Testing | 10 - 45 U/L | EXTERNAL | | | | performed at [facility], [address] | | LAB | | | | [address], | | | | | | [place] [address] | | | | + + + + + + | ALT | 40Comment: Testing | 10 - 65 U/L | EXTERNAL | | | | performed at [facility], [address] | | LAB | | | | [address], | | | | | | [place] [address] | | | | + + + [...] | | | | | | at [facility], [address] | | | | | | [address], | | | | | | [place] [address] | | | | + + + + + + + + | Specimen | + + | | + + + +---------+ + + | Performing | Address | City/State/Zipcode | Phone Number | | Organization | | | | + +---------+ + + | EXTERNAL LAB | | | | + +---------+ + + PTT (09/12/2013 12:04 AM PDT) + + + + + + | Component | Value | Ref Range | Performed | Pathologist | | | | | At | Signature | + + + + + + | aPTT, | 39 (H)Comment: Testing | 23 - 32 seconds | EXTERNAL | | | Patient | performed at [facility] [place] | | LAB | | | | [address];[place], [place] | | | | | | [address] | | | | + + + [...] + +---------+ + + External Lab: CBC (09/11/2013 6:20 PM PDT) + + + + + + | Component | Value | Ref Range | Performed | Pathologist | | | | | At | Signature | + + + + + + | WBC | 9.7Comment: Testing | 3.8 - 11.0 K/uL | EXTERNAL | | | | performed at [facility], [address] | | LAB | | | | [address], | | | | | | [place] [address] | | | | + + + + + + | RED CELL | 3.94Comment: Testing | 3.70 - 5.10 | EXTERNAL | | | COUNT | performed at [facility], [address] | M/uL | LAB | | | | [address], | | | | | | [place] [address] | | | | + + + + + + | Hgb | 12.8Comment: Testing | 11.3 - 15.5 | EXTERNAL | | | | performed at [facility], [address] | g/dL | LAB | | | | [address], | | | | | | [place] [address] | | | | + + + + + + | Hematocrit, | 38.8Comment: Testing | 34.0 - 46.0 % | EXTERNAL | | | POC | performed at [facility], [address] | | LAB | | | | [address], | | | | | | [place] [address] | | | | + + + + + + | MCV | 98.5Comment: Testing | 80.0 - 100.0 fl | EXTERNAL | | | | performed at [facility], [address] | | LAB | | | | [address], | | | | | | [place] [address] | | | | + + + + + + | MCH | 32.5Comment: Testing | 27.0 - 34.0 pg | EXTERNAL | | | | performed at [facility], [address] | | LAB | | | | [address], | | | | | | [place] [address] | | | | + + + + + + | MCHC | 33.0Comment: Testing | 32.0 - 35.5 | EXTERNAL | | | | performed at [facility], [address] | g/dL | LAB | | | | [address], | | | | | | [place] [address] | | | | + + + + + + | RDW-CV | 48.6Comment: Testing | 37 - 53 fl | EXTERNAL | | | | performed at [facility], [address] | | LAB | | | | [address], | | | | | | [place] [address] | | | | + + + + + + | Platelet | 219Comment: Testing | 150 - 400 K/uL | EXTERNAL | | | Count | performed at [facility], [address] | | LAB | | | Plasma | [address], | | | | | | [place] [address] | | | | + + + + + + | MPV | 9.9Comment: Testing | fl | EXTERNAL | | | | performed at [facility], [address] | | LAB | | | | [address], | | | | | | [place] [address] | | | | + + + + + + | Differentia | AUTOMATEDComment: | | EXTERNAL | | | l Type | Testing performed at | | LAB | | | | [facility], [address] | | | | | | [place], [place] | | | | | | [address] | | | | + + + + + + | % Segmented | 70.4Comment: Testing | % | EXTERNAL | | | | performed at [facility], [address] | | LAB | | | Neutrophils | [address], | | | | | | [place] [address] | | | | + + + + + + | % | 18.3Comment: Testing | % | EXTERNAL | | | Lymphocytes | performed at [facility], [address] | | LAB | | | | [address], | | | | | | [place] [address] | | | | + + + + + + | % Monocytes | 8.8Comment: Testing | % | EXTERNAL | | | | performed at [facility], [address] | | LAB | | | | [address], | | | | | | [place] [address] | | | | + + + + + + | % | 1.5Comment: Testing | % | EXTERNAL | | | Eosinophils | performed at [facility], [address] | | LAB | | | | [address], | | | | | | [place] [address] | | | | + + + + + + | % Basophils | 1.0Comment: Testing | % | EXTERNAL | | | | performed at [facility], [address] | | LAB | | | | [address], | | | | | | [place] [address] | | | | + + + + + + | Absolute | 6.8Comment: Testing | 1.9 - 7.4 K/uL | EXTERNAL | | | Segmented | performed at [facility], [address] | | LAB | | | Neutrophils | [address], | | | | | | [place] [address] | | | | + + + + + + | Absolute | 1.8Comment: Testing | 1.0 - 3.9 K/uL | EXTERNAL | | | Lymphocytes | performed at [facility], [address] | | LAB | | | | [address], | | | | | | [place] [address] | | | | + + + + + + | Absolute | 0.9 (H)Comment: Testing | 0 - 0.8 K/uL | EXTERNAL | | | Monocytes | performed at [facility], [address] | | LAB | | | | [address], | | | | | | [place] [address] | | | | + + + + + + | Absolute | 0.1Comment: Testing | 0 - 0.5 K/uL | EXTERNAL | | | Eosinophils | performed at [facility], [address] | | LAB | | | | [address], | | | | | | [place] [address] | | | | + + + + + + | Absolute | 0.1Comment: Testing | 0 - 0.1 K/uL | EXTERNAL | | | Basophils | performed at [facility], [address] | | LAB | | | | [address], | | | | | | [place] [address] | | | | + + + + + + + + | Specimen | + + | Blood specimen | | (specimen) | + + + +---------+ + + | Performing | Address | City/State/Zipcode | Phone Number | | Organization | | | | + +---------+ + + | EXTERNAL LAB | | | | + +---------+ + + PTT (09/11/2013 2:00 PM PDT) + + + + + + | Component | Value | Ref Range | Performed | Pathologist | | | | | At | Signature | + + + + + + | aPTT, | 65 (H)Comment: Testing | 23 - 32 seconds | EXTERNAL | | | Patient | performed at [facility] [place] [place] | | LAB | | | | [address];[place] | | | | | | [address] | | | | + + + + + + + + | Specimen | + + | Blood specimen | | (specimen) | + + + +---------+ + + | Performing | Address | City/State/Zipcode | Phone Number | | Organization | | | | + +---------+ + + | EXTERNAL LAB | | | | + +---------+ + + ECHO Complete (09/11/2013 8:15 AM PDT) + + | Specimen | + + | | + + + + + | Impressions | Performed At | + + + | 1. Dilated Cardiomyopathy. LVEDd 59mm, severe global hypokinesis, | | | Grade 3 diastolic abnormality, LVEF <20%. RV mildly dilated, | | | systolic function abnormal. Mild LAE. RA NML. 2. Aortic valve | | | sclerotic, mild AI, no . Mitral valve grossly NML, mild MAC, | | | moderate MR. Tricuspid valve grossly NML, moderate TR. Pulmonic | | | valve grossly NML, mild PI. 3. No Pericardial effusion. 4. Moderate | | | Pulmonary HTN, est systolic PAP 52-57mmHg. | | + + + + + + | Narrative | Performed At | + + + | Patient Name: TAMIKO IRELAND Date of : 1930 | | | Performing Physician: Thomas Bynum MD | | | | | | INDICATIONS shortness of breath CONCLUSIONS | | | 1. Dilated Cardiomyopathy. LVEDd 59mm, severe global | | | hypokinesis, Grade 3 diastolic abnormality, LVEF <20%. RV mildly | | | dilated, systolic function abnormal. Mild LAE. RA NML. 2. Aortic | | | valve sclerotic, mild AI, no . Mitral valve grossly NML, mild | | | MAC, moderate MR. Tricuspid valve grossly NML, moderate TR. | | | Pulmonic valve grossly NML, mild PI. 3. No Pericardial effusion. 4. | | | Moderate Pulmonary HTN, est systolic PAP 52-57mmHg. FINDINGS | | | -------- Cardiomyopathy: Dilated Cardiomyopathy. ECG rhythm: Sinus | | | rhythm. ECG rhythm: Resting tachycardia (HR>100bpm). Study: A | | | 2-dimensional transthoracic echocardiogram with m-mode, spectral and | | | color flow Doppler was perfomed. Study: This was a technically | | | adequate study. Left Ventricle: Overall left ventricular systolic | | | function is severely impaired with, an EF < 20%. Left Ventricle: The | | | left ventricle is mildly dilated. Left Ventricle: There is mild | | | concentric left ventricular hypertrophy. Left Ventricle: Restrictive | | | LV diastolic filling pattern, consistent with elevated LA pressure and | | | severe dysfunction (grade III). Right Ventricle: The right ventricle | | | is mildly enlarged measuring between 3.4 - 3.7 cm. Right Ventricle: | | | The right ventricular systolic function is mildly impaired. Left | | | Atrium: The left atrium is mildly dilated. Right Atrium: The right | | | atrial size is normal. Aortic Valve: The aortic valve is trileaflet | | | and appears structurally normal. Aortic Valve: There is mild aortic | | | valve sclerosis without stenosis. Aortic Valve: Trace amount of | | | aortic regurgitation. Mitral Valve: The mitral valve is normal. | | | Mitral Valve: Moderate mitral regurgitation is present. Mitral Valve: | | | Mild mitral annular calcification present. Tricuspid Valve: The | | | tricuspid valve appears structurally normal. Tricuspid Valve: | | | [id number] tricuspid regurgitation present. Tricuspid Valve: | | | There is moderate pulmonary hypertension. Tricuspid Valve: The right | | | ventricular systolic pressure (pulmonary artery systolic pressure), as | | | measured by Doppler, is 42 mhg + 10-15 mmhg = 52-57 mmhg. Pulmonic | | | Valve: The pulmonic valve is normal. Pulmonic Valve: Mild pulmonic | | | regurgitation. Pericardium: There is a trivial pericardial effusion | | | present. IVC/Hepatic Veins: The IVC is normal size (1.5-2.5cm) and | | | collapses <50% with sniff, consistent with central venous pressures of | | | 10-15mmHg. MEASUREMENTS Ao Diam: 2.80 cm IVC: | | | 1.87 cm LA Diam: 4.71 cm LA Major: 4.67 cm EDV(Teich): | | | 172.03 ml IVSd: 1.24 cm LVIDd: 5.88 cm LVPWd: 1.11 cm | | | LVOT Diam: 1.87 cm %FS: 5.83 % EF(Teich): 12.89 % | | | ESV(Teich): 149.85 ml IVSs: 1.06 cm LVIDs: 5.53 cm LVPWs: | | | 1.33 cm SV(Teich): 22.18 ml RA Major: 4.44 cm RVIDd: | | | 3.73 cm LVEF MOD A2C: 17.38 % SV MOD A2C: 38.88 ml LVEF MOD | | | A4C: 13.93 % SV MOD A4C: 28.25 ml EF Biplane: 14.97 % | | | LVEDV MOD BP: 214.97 ml LVESV MOD BP: 182.77 ml LVEDV MOD A2C: | | | 223.60 ml LVLd A2C: 10.10 cm LVEDV MOD A4C: 202.77 ml | | | LVLd A4C: 9.75 cm LVESV MOD A2C: 184.72 ml LVLs A2C: 9.28 | | | cm LVESV MOD A4C: 174.52 ml LVLs A4C: 9.71 cm CO Biplane: | | | 3.96 l/min HR: 123.29 BPM R-R: 486.63 ms LAESV(A-L): 59.17 | | | ml LAESV Index (A-L): 32.33 ml/m2 LAAs A2C: 19.31 cm2 LAESV | | | A-L A2C: 60.19 ml LALs A2C: 5.26 cm LAAs A4C: 16.58 cm2 | | | LAESV A-L A4C: 50.79 ml LALs A4C: 4.59 cm Ao Diam: 2.73 cm | | | AV Cusp: 1.32 cm LA Diam: 4.49 cm LA/Ao: 1.64 D-E | | | Excursion: 1.41 cm E-F [place]: 0.11 m/s EPSS: 2.07 cm HR: | | | 122.34 BPM AV maxP.92 mmHg AV meanP.07 mmHg AV | | | Vmax: 0.66 m/s AV Vmean: 0.45 m/s AV VTI: 8.85 cm BEATRIZ | | | Vmax: 2.12 cm2 BEATRIZ (VTI): 2.07 cm2 LVCI Dopp: 1.23 l/minm2 | | | LVCO Dopp: 2.26 l/min HR: 123.39 BPM LVOT maxP.04 mmHg | | | LVOT meanP.51 mmHg LVSI Dopp: 10.02 ml/m2 LVSV Dopp: | | | 18.34 ml LVOT Vmax: 0.50 m/s LVOT Vmean: 0.33 m/s LVOT VTI: | | | 6.62 cm MCO: 364.05 ms MR maxP.57 mmHg MR Vmax: | | | 4.37 m/s MV E Shola: 1.31 m/s MV A Shola: 0.38 m/s MV DecT: | | | 62.87 ms MV E Shola: 1.27 m/s MV E/A Ratio: 3.42 MV PHT: | | | 20.56 ms MVA By PHT: 10.69 cm2 MV A Dur: 22.11 ms IVRT: | | | 79.58 ms Septal e': 0.02 m/s Septal E/e': 47.35 Lateral e': | | | 0.08 m/s Lateral E/e': 14.72 PAEDP: 17.65 mmHg PRend PG: | | | 2.65 mmHg PRend Vmax: 0.81 m/s HR: 122.11 BPM PV maxPG: | | | 1.42 mmHg PV meanP.83 mmHg PV Vmax: 0.59 m/s PV Vmean: | | | 0.43 m/s PV VTI: 8.36 cm RAP: 15 mmHg RVSP: 56.58 mmHg | | | TR maxP.58 mmHg TR Vmax: 3.22 m/s TV A Shola: 0.20 m/s | | | TV Dec [place]: 3.17 m/s2 TV Dec Time: 152.22 ms TV E Shola: | | | 0.48 m/s TV E/A Ratio: 2.32 Insulation Worker Furnace Installer: OLIVER Authenticated by: | | | Thomas Bynum MD Report Date/Time: 09-11-2013 15:19:20 | | + + + + + | Procedure Note | + + | César Hawkins Conversion - 11/26/2018 3:41 PM PDT Patient Name: Romie IRELAND of | | : 1930 Performing Physician: Thomas Bynum | | MD INDICATIONS s | | hortness of breath CONCLUSIONS 1. Dilated Cardiomyopathy. LVEDd 59mm, severe | | global hypokinesis, Grade 3 diastolic abnormality, LVEF <20%. RV mildly dilated, | | systolic function abnormal. Mild LAE. RA NML. 2. Aortic valve sclerotic, mild AI, no | | . Mitral valve grossly NML, mild MAC, moderate MR. Tricuspid valve grossly NML, | | moderate TR. Pulmonic valve grossly NML, mild PI. 3. No Pericardial effusion. 4. | | Moderate Pulmonary HTN, est systolic PAP 52-57mmHg. FINDINGS--------Cardiomyopathy: | | Dilated Cardiomyopathy.ECG rhythm: Sinus rhythm.ECG rhythm: Resting tachycardia | | (HR>100bpm).Study: A 2-dimensional transthoracic echocardiogram with m-mode, spectral | | and color flow Doppler was perfomed.Study: This was a technically adequate study.Left | | Ventricle: Overall left ventricular systolic function is severely impaired with, an EF < | | 20%.Left Ventricle: The left ventricle is mildly dilated.Left Ventricle: There is mild | | concentric left ventricular hypertrophy.Left Ventricle: Restrictive LV diastolic filling | | pattern, consistent with elevated LA pressure and severe dysfunction (grade III).Right | | Ventricle: The right ventricle is mildly enlarged measuring between 3.4 - 3.7 cm.Right | | Ventricle: The right ventricular systolic function is mildly impaired.Left Atrium: The | | left atrium is mildly dilated.Right Atrium: The right atrial size is normal.Aortic | | Valve: The aortic valve is trileaflet and appears structurally normal.Aortic Valve: | | There is mild aortic valve sclerosis without stenosis.Aortic Valve: Trace amount of | | aortic regurgitation.Mitral Valve: The mitral valve is normal.Mitral Valve: Moderate | | mitral regurgitation is present.Mitral Valve: Mild mitral annular calcification | | present.Tricuspid Valve: The tricuspid valve appears structurally normal.Tricuspid | | Valve: Gssh-kh-ligzpoix tricuspid regurgitation present.Tricuspid Valve: There is | | moderate pulmonary hypertension.Tricuspid Valve: The right ventricular systolic pressure | | (pulmonary artery systolic pressure), as measured by Doppler, is 42 mhg + 10-15 mmhg = | | 52-57 mmhg.Pulmonic Valve: The pulmonic valve is normal.Pulmonic Valve: Mild pulmonic | | regurgitation.Pericardium: There is a trivial pericardial effusion present.IVC/Hepatic | | Veins: The IVC is normal size (1.5-2.5cm) and collapses <50% with sniff, consistent with | | central venous pressures of 10-15mmHg. MEASUREMENTS Ao Diam: 2.80 cmIVC: | | 1.87 cmLA Diam: 4.71 cmLA Major: 4.67 cmEDV(Teich): 172.03 mlIVSd: 1.24 | | cmLVIDd: 5.88 cmLVPWd: 1.11 cmLVOT Diam: 1.87 cm%FS: 5.83 %EF(Teich): 12.89 | | %ESV(Teich): 149.85 mlIVSs: 1.06 cmLVIDs: 5.53 cmLVPWs: 1.33 cmSV(Teich): | | 22.18 mlRA Major: 4.44 cmRVIDd: 3.73 cmLVEF MOD A2C: 17.38 %SV MOD A2C: 38.88 | | mlLVEF MOD A4C: 13.93 %SV MOD A4C: 28.25 mlEF Biplane: 14.97 %LVEDV MOD BP: | | 214.97 mlLVESV MOD BP: 182.77 mlLVEDV MOD A2C: 223.60 mlLVLd A2C: 10.10 cmLVEDV | | MOD A4C: 202.77 mlLVLd A4C: 9.75 cmLVESV MOD A2C: 184.72 mlLVLs A2C: 9.28 | | cmLVESV MOD A4C: 174.52 mlLVLs A4C: 9.71 cmCO Biplane: 3.96 l/minHR: 123.29 | | BPMR-R: 486.63 msLAESV(A-L): 59.17 mlLAESV Index (A-L): 32.33 ml/m2LAAs A2C: | | 19.31 [id number] A-L A2C: 60.19 mlLALs A2C: 5.26 cmLAAs A4C: 16.58 [id number] A-L A4C: | | 50.79 mlLALs A4C: 4.59 cmAo Diam: 2.73 cmAV Cusp: 1.32 cmLA Diam: 4.49 | | cmLA/Ao: 1.64D-E Excursion: 1.41 cmE-F [place]: 0.11 m/sEPSS: 2.07 cmHR: 122.34 | | BPMAV maxP.92 mmHgAV meanP.07 mmHgAV Vmax: 0.66 m/Evelin Vmean: 0.45 m/Evelin | | VTI: 8.85 cmAVA Vmax: 2.12 cm2AVA (VTI): 2.07 [id number] Dopp: 1.23 l/[id number] | | Dopp: 2.26 l/minHR: 123.39 BPMLVOT maxP.04 mmHgLVOT meanP.51 mmHgLVSI | | Dopp: 10.02 ml/m2LVSV Dopp: 18.34 mlLVOT Vmax: 0.50 m/sLVOT Vmean: 0.33 m/sLVOT | | VTI: 6.62 cmMCO: 364.05 msMR maxP.57 mmHgMR Vmax: 4.37 m/sMV E Shola: 1.31 | | m/sMV A Shola: 0.38 m/sMV DecT: 62.87 msMV E Shola: 1.27 m/sMV E/A Ratio: 3.42MV | | PHT: 20.56 msMVA By PHT: 10.69 cm2MV A Dur: 22.11 msIVRT: 79.58 msSeptal e': | | 0.02 m/sSeptal E/e': 47.35Lateral e': 0.08 m/sLateral E/e': 14.72PAEDP: 17.65 | | mmHgPRend P.65 mmHgPRend Vmax: 0.81 m/sHR: 122.11 BPMPV maxP.42 mmHgPV | | meanP.83 mmHgPV Vmax: 0.59 m/sPV Vmean: 0.43 m/sPV VTI: 8.36 cmRAP: 15 | | mmHgRVSP: 56.58 mmHgTR maxP.58 mmHgTR Vmax: 3.22 m/sTV A Shola: 0.20 m/sTV | | Dec [place]: 3.17 m/s2TV Dec Time: 152.22 msTV E Shola: 0.48 m/sTV E/A Ratio: 2.32 | | 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 Dilated Cardiomyopathy. LVEDd 59mm, severe global hypokinesis, Grade 3 | | diastolic abnormality, LVEF <20%. RV mildly dilated, systolic function abnormal. Mild | | LAE. RA NML. 2. Aortic valve sclerotic, mild AI, no . Mitral valve grossly NML, mild | | MAC, moderate MR. Tricuspid valve grossly NML, moderate TR. Pulmonic valve grossly | | NML, mild PI. 3. No Pericardial effusion. 4. Moderate Pulmonary HTN, est systolic PAP | | 52-57mmHg. | |LVIDs: 5.53 cm | |LVPWs: 1.33 cm | |SV(Teich): 22.18 ml | |RA Major: 4.44 cm | |RVIDd: 3.73 cm | |LVEF MOD A2C: 17.38 % | |SV MOD A2C: 38.88 ml | |LVEF MOD A4C: 13.93 % | |SV MOD A4C: 28.25 ml | |EF Biplane: 14.97 % | |LVEDV MOD BP: 214.97 ml | |LVESV MOD BP: 182.77 ml | |LVEDV MOD A2C: 223.60 ml | |LVLd A2C: 10.10 cm | |LVEDV MOD A4C: 202.77 ml | |LVLd A4C: 9.75 cm | |LVESV MOD A2C: 184.72 ml | |LVLs A2C: 9.28 cm | |LVESV MOD A4C: 174.52 ml | |LVLs A4C: 9.71 cm | |CO Biplane: 3.96 l/min | |HR: 123.29 BPM | |R-R: 486.63 ms | |LAESV(A-L): 59.17 ml | |LAESV Index (A-L): 32.33 ml/m2 | |LAAs A2C: 19.31 cm2 | |LAESV A-L A2C: 60.19 ml | |LALs A2C: 5.26 cm | |LAAs A4C: 16.58 cm2 | |LAESV A-L A4C: 50.79 ml | |LALs A4C: 4.59 cm | |Ao Diam: 2.73 cm | |AV Cusp: 1.32 cm | |LA Diam: 4.49 cm | |LA/Ao: 1.64 | |D-E Excursion: 1.41 cm | |E-F [place]: 0.11 m/s | |EPSS: 2.07 cm | |HR: 122.34 BPM | |AV maxP.92 mmHg | |AV meanP.07 mmHg | |AV Vmax: 0.66 m/s | |AV Vmean: 0.45 m/s | |AV VTI: 8.85 cm | |BEATRIZ Vmax: 2.12 cm2 | |BEATRIZ (VTI): 2.07 cm2 | |LVCI Dopp: 1.23 l/minm2 | |LVCO Dopp: 2.26 l/min | |HR: 123.39 BPM | |LVOT maxP.04 mmHg | |LVOT meanP.51 mmHg | |LVSI Dopp: 10.02 ml/m2 | |LVSV Dopp: 18.34 ml | |LVOT Vmax: 0.50 m/s | |LVOT Vmean: 0.33 m/s | |LVOT VTI: 6.62 cm | |MCO: 364.05 ms | |MR maxP.57 mmHg | |MR Vmax: 4.37 m/s | |MV E Shola: 1.31 m/s | |MV A Shola: 0.38 m/s | |MV DecT: 62.87 ms | |MV E Shola: 1.27 m/s | |MV E/A Ratio: 3.42 | |MV PHT: 20.56 ms | |MVA By PHT: 10.69 cm2 | |MV A Dur: 22.11 ms | |IVRT: 79.58 ms | |Septal e': 0.02 m/s | |Septal E/e': 47.35 | |Lateral e': 0.08 m/s | |Lateral E/e': 14.72 | |PAEDP: 17.65 mmHg | |PRend P.65 mmHg | |PRend Vmax: 0.81 m/s | |HR: 122.11 BPM | |PV maxP.42 mmHg | |PV meanP.83 mmHg | |PV Vmax: 0.59 m/s | |PV Vmean: 0.43 m/s | |PV VTI: 8.36 cm | |RAP: 15 mmHg | |RVSP: 56.58 mmHg | |TR maxP.58 mmHg | |TR Vmax: 3.22 m/s | |TV A Shola: 0.20 m/s | |TV Dec [place]: 3.17 m/s2 | |TV Dec Time: 152.22 ms | |TV E Shola: 0.48 m/s | |TV E/A Ratio: 2.32 | | | |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 Dilated Cardiomyopathy. LVEDd 59mm, severe global hypokinesis, Grade 3 diastolic abnorm ality, LVEF <20%. RV mildly dilated, systolic function abnormal. Mild LAE. RA NML. 2. Aor tic valve sclerotic, mild AI, no . Mitral valve grossly NML, mild | |MAC, moderate MR. Tricuspid valve grossly NML, moderate TR. Pulmonic valve grossly NML, m ild PI. 3. No Pericardial effusion. 4. Moderate Pulmonary HTN, est systolic PAP 52-57mmHg. | + + PTT (09/11/2013 7:41 AM PDT) + + + + + + | Component | Value | Ref Range | Performed | Pathologist | | | | | At | Signature | + + + + + + | aPTT, | 114 ()Comment: CALLED | 23 - 32 seconds | EXTERNAL | | | Patient | TO KIM Menchaca ON 6RP AT | | LAB | | | | 0834 BY MBREAD BACK | | | | | | RESULTS VERIFIEDTesting | | | | | | performed at [facility] | | | | | | [address];[place] | | | | | | [address] | | | | + + + + + + + + | Specimen | + + | Blood specimen | | (specimen) | + + + +---------+ + + | Performing | Address | City/State/Zipcode | Phone Number | | Organization | | | | + +---------+ + + | EXTERNAL LAB | | | | + +---------+ + + CK-MB (09/11/2013 5:51 AM PDT) + + + + + -+ | Component | Value | Ref Range | Performed | Pathologist | | | | | At | Signature | + + + + + -+ | CK-MB | 12.2 (H)Comment: Testing | 0.5 - 3.6 ng/mL | EXTERNAL | | | | performed at [facility];[address] | | LAB | | | | [address];[place] | | | | | | [address] | | | | + + + + + -+ | CK-MB Index | 4.7Comment: CK INDEX | | EXTERNAL | | [...] | | | + +---------+ + + Troponin I (09/11/2013 5:51 AM PDT) + + + + + + | Component | Value | Ref Range | Performed | Pathologist | | | | | At | Signature | + + + + + + | Troponin I, | 2.47 ()Comment: 0.00 | 0.00 - 0.10 | EXTERNAL | | | Qual | to 0.10 CONSISTENT | ng/mL | LAB | | | | WITH NORMAL | | | | | | POPULATION0.11 to 0.60 | | | | | | CONSISTENT WITH | | | | | | INCREASED RISK FOR | | | | | | ADVERSE OUTCOMES> 0.60 | | | | | | CONSISTENT | | | | | | WITH WHO CRITERIA FOR | | | | | | ACUTE AL CKTRP PHONED TO | | | | | | 6RP JOANA AT 0640 BY | | | | | | LJREAD BACK RESULTS | | | | | | VERIFIEDTesting | | | | | | performed at [facility] | | | | | | [address];[place], [place] | | | | | | [address] | | | | + + + [...] + +---------+ + + External Lab: CBC (09/11/2013 5:51 AM PDT) + + + + + + | Component | Value | Ref Range | Performed | Pathologist | | | | | At | Signature | + + + + + + | WBC | 8.3Comment: Testing | 3.8 - 11.0 K/uL | EXTERNAL | | | | performed at [facility], [address] | | LAB | | | | [address], | | | | | | [place] [address] | | | | + + + + + + | RED CELL | 3.88Comment: Testing | 3.70 - 5.10 | EXTERNAL | | | COUNT | performed at [facility], [address] | M/uL | LAB | | | | [address], | | | | | | [place] [address] | | | | + + + + + + | Hgb | 12.4Comment: Testing | 11.3 - 15.5 | EXTERNAL | | | | performed at [facility], [address] | g/dL | LAB | | | | [address], | | | | | | [place] [address] | | | | + + + + + + | Hematocrit, | 38.0Comment: Testing | 34.0 - 46.0 % | EXTERNAL | | | POC | performed at [facility], [address] | | LAB | | | | [address], | | | | | | [place] [address] | | | | + + + + + + | MCV | 97.9Comment: Testing | 80.0 - 100.0 fl | EXTERNAL | | | | performed at [facility], [address] | | LAB | | | | [address], | | | | | | [place] [address] | | | | + + + + + + | MCH | 32.0Comment: Testing | 27.0 - 34.0 pg | EXTERNAL | | | | performed at [facility], [address] | | LAB | | | | [address], | | | | | | [place] [address] | | | | + + + + + + | MCHC | 32.7Comment: Testing | 32.0 - 35.5 | EXTERNAL | | | | performed at [facility], [address] | g/dL | LAB | | | | [address], | | | | | | [place] [address] | | | | + + + + + + | RDW-CV | 49.0Comment: Testing | 37 - 53 fl | EXTERNAL | | | | performed at [facility], [address] | | LAB | | | | [address], | | | | | | [place] [address] | | | | + + + + + + | Platelet | 213Comment: Testing | 150 - 400 K/uL | EXTERNAL | | | Count | performed at [facility], [address] | | LAB | | | Plasma | [address], | | | | | | [place] [address] | | | | + + + + + + | MPV | 9.1Comment: Testing | fl | EXTERNAL | | | | performed at [facility], [address] | | LAB | | | | [address], | | | | | | [place] [address] | | | | + + + + + + | Differentia | AUTOMATEDComment: | | EXTERNAL | | | l Type | Testing performed at | | LAB | | | | [facility], [address] | | | | | | [place] | | | | | | [address] | | | | + + + + + + | % Segmented | 75.3Comment: Testing | % | EXTERNAL | | | | performed at [facility], [address] | | LAB | | | Neutrophils | [address], | | | | | | [place] [address] | | | | + + + + + + | % | 13.3Comment: Testing | % | EXTERNAL | | | Lymphocytes | performed at [facility], [address] | | LAB | | | | [address], | | | | | | [place] [address] | | | | + + + + + + | % Monocytes | 11.0Comment: Testing | % | EXTERNAL | | | | performed at [facility], [address] | | LAB | | | | [address], | | | | | | [place] [address] | | | | + + + + + + | % | 0.1Comment: Testing | % | EXTERNAL | | | Eosinophils | performed at [facility], [address] | | LAB | | | | [address], | | | | | | [place] [address] | | | | + + + + + + | % Basophils | 0.3Comment: Testing | % | EXTERNAL | | | | performed at [facility], [address] | | LAB | | | | [address], | | | | | | [place] [address] | | | | + + + + + + | Absolute | 6.3Comment: Testing | 1.9 - 7.4 K/uL | EXTERNAL | | | Segmented | performed at [facility], [address] | | LAB | | | Neutrophils | [address], | | | | | | [place] [address] | | | | + + + + + + | Absolute | 1.1Comment: Testing | 1.0 - 3.9 K/uL | EXTERNAL | | | Lymphocytes | performed at [facility], [address] | | LAB | | | | [address], | | | | | | [place] [address] | | | | + + + + + + | Absolute | 0.9 (H)Comment: Testing | 0 - 0.8 K/uL | EXTERNAL | | | Monocytes | performed at [facility], [address] | | LAB | | | | [address], | | | | | | [place] [address] | | | | + + + + + + | Absolute | 0.0Comment: Testing | 0 - 0.5 K/uL | EXTERNAL | | | Eosinophils | performed at [facility], [address] | | LAB | | | | [address], | | | | | | [place] [address] | | | | + + + + + + | Absolute | 0.0Comment: Testing | 0 - 0.1 K/uL | EXTERNAL | | | Basophils | performed at [facility], [address] | | LAB | | | | [address], | | | | | | [place] [address] | | | | + + + + + + + + | Specimen | + + | Blood specimen | | (specimen) | + + + +---------+ + + | Performing | Address | City/State/Zipcode | Phone Number | | Organization | | | | + +---------+ + + | EXTERNAL LAB | | | | + +---------+ + + TSH (09/11/2013 5:51 AM PDT) + + + + + + | Component | Value | Ref Range | Performed | Pathologist | | | | | At | Signature | + + + + + + | TSI | 1.62Comment: Testing | 0.45 - 5.10 | EXTERNAL | | | | performed at [facility], [address] | uIU/mL | LAB | | | | [address], | | | | | | [place] [address] | | | | + + + + + + + + | Specimen | + + | Blood specimen | | (specimen) | + + + +---------+ + + | Performing | Address | City/State/Zipcode | Phone Number | | Organization | | | | + +---------+ + + | EXTERNAL LAB | | | | + +---------+ + + Phosphorus (09/11/2013 5:51 AM PDT) + + + + + + | Component | Value | Ref Range | Performed | Pathologist | | | | | At | Signature | + + + + + + | PHOSPHORUS | 4.6Comment: Testing | 2.3 - 4.8 mg/dL | EXTERNAL | | | | performed at [facility], [address] | | LAB | | | | [address], | | | | | | [place] [address] | | | | + + + [...] +---------+ + + B Type Natriuretic Peptide (09/11/2013 5:51 AM PDT) + + + + + + | Component | Value | Ref Range | Performed | Pathologist | | | | | At | Signature | + + + + + + | BNP | >5000 (H)Comment: | 0 - 100 pg/mL | EXTERNAL | | | | Testing performed at | | LAB | | | | [facility];[address];[place] [address] | | | | + + + + + + + + | Specimen | + + | Blood specimen | | (specimen) | + + + +---------+ + + | Performing | Address | City/State/Zipcode | Phone Number | | Organization | | | | + +---------+ + + | EXTERNAL LAB | | | | + +---------+ + + Magnesium (09/11/2013 5:51 AM PDT) + + + + + + | Component | Value | Ref Range | Performed | Pathologist | | | | | At | Signature | + + + + + + | Magnesium | 1.9Comment: Testing | 1.7 - 2.4 mg/dL | EXTERNAL | | | | performed at [facility], [address] | | LAB | | | | [address], | | | | | | [place] [address] | | | | + + + + + + + + | Specimen | + + | Blood specimen | | (specimen) | + + + +---------+ + + | Performing | Address | City/State/Zipcode | Phone Number | | Organization | | | | + +---------+ + + | EXTERNAL LAB | | | | + +---------+ + + Hemoglobin A1C (09/11/2013 5:51 AM PDT) + + + + + + | Component | Value | Ref Range | Performed | Pathologist | | | | | At | Signature | + + + + + + | Hemoglobin | 5.7Comment: The [place] | 4.0 - 6.0 % | EXTERNAL | | | A1c | Diabetes Association | | LAB | | | | considers a hemoglobin | | | | | | A1c result of <7.0% to | | | | | | be the goal of diabetic | | | | | | therapy. When results | | | | | | are consistently >8.0%, | | | | | | the ADA suggests | | | | | | reevaluation of the | | | | | | treatment regimen. The | | | | | | testing method used is | | | | | | certified traceable to | | | | | | the Diabetes Control and | | | | | | Complications Trial | | | | | | reference method.Testing | | | | | | performed at [facility], [address] | | | | [address], | | | | | | [place] [address] | | | | + + + + + + | Glycohemogl | 117Comment: The ADA | mg/dL | EXTERNAL | | | obin | considers an eAG result | | LAB | | | (GHb),Total | of LT 154 mg/dL to be | | | | | | the goal of diabetic | | | | | | therapy. Estimated | | | | | | Average Glucose | | | | | | calculated from | | | | | | hemoglobin A1c by use of | | | | | | the ADA recommended | | | | | | formula.Testing | | | | | | performed at [facility], [address] | | | | | | [facility], | | | | | | [place] [address] | | | | + + + + + + + + | Specimen | + + | Blood specimen | | (specimen) | + + + +---------+ + + | Performing | Address | City/State/Zipcode | Phone Number | | Organization | | | | + +---------+ + + | EXTERNAL LAB | | | | + +---------+ + + CK Total (09/11/2013 5:51 AM PDT) + + + + + + | Component | Value | Ref Range | Performed | Pathologist | | | | | At | Signature | + + + + + + | CK, Total | 259 (H)Comment: Testing | 30 - 240 U/L | EXTERNAL | | | | performed at [facility];[address] | | LAB | | | | [address];[place], [place] | | | | | | [address] | | | | + + + + + + + + | Specimen | + + | Blood specimen | | (specimen) | + + + +---------+ + + | Performing | Address | City/State/Zipcode | Phone Number | | Organization | | | | + +---------+ + + | EXTERNAL LAB | | | | + +---------+ + + Bilirubin, Direct (09/11/2013 5:51 AM PDT) + + + + + + | Component | Value | Ref Range | Performed | Pathologist | | | | | At | Signature | + + + + + + | Bilirubin | 0.1Comment: Testing | 0.0 - 0.3 mg/dL | EXTERNAL | | | Direct | performed at [facility], [address] | | LAB | | | | [address], | | | | | | [place] [address] | | | | + + + + + + + + | Specimen | + + | | + + + +---------+ + + | Performing | Address | City/State/Zipcode | Phone Number | | Organization | | | | + +---------+ + + | EXTERNAL LAB | | | | + +---------+ + + Comprehensive Metabolic Panel (09/11/2013 5:51 AM PDT) + + + + + + | Component | Value | Ref Range | Performed | Pathologist | | | | | At | Signature | + + + + + + | Na | 134 (L)Comment: Testing | 135 - 143 | EXTERNAL | | | | performed at [facility], [address] | mmol/L | LAB | | | | [address], | | | | | | [place] [address] | | | | + + + + + + | K | 4.5Comment: Testing | 3.5 - 4.9 | EXTERNAL | | | | performed at [facility], [address] | mmol/L | LAB | | | | [address], | | | | | | [place] [address] | | | | + + + + + + | Cl | 105Comment: Testing | 99 - 109 mmol/L | EXTERNAL | | | | performed at [facility], [address] | | LAB | | | | [address], | | | | | | [place] [address] | | | | + + + + + + | CO2 | 22 (L)Comment: Testing | 23 - 32 mmol/L | EXTERNAL | | | | performed at [facility], [address] | | LAB | | | | [address], | | | | | | [place] [address] | | | | + + + + + + | Anion Gap | 12Comment: Testing | 5 - 20 mmol/L | EXTERNAL | | | | performed at [facility], [address] | | LAB | | | | [address], | | | | | | [place] [address] | | | | + + + + + + | Glucose, | 135 (H)Comment: Testing | 65 - 99 mg/dL | EXTERNAL | | | Fasting | performed at [facility], [address] | | LAB | | | | [address], | | | | | | [place] [address] | | | | + + + + + + | BUN | 25Comment: Testing | 8 - 25 mg/dL | EXTERNAL | | | | performed at [facility], [address] | | LAB | | | | [address], | | | | | | [place] [address] | | | | + + + + + + | Creatinine | 1.36 (H)Comment: Testing | 0.50 - 1.00 | EXTERNAL | | | | performed at [facility], [address] | mg/dL | LAB | | | | [address], | | | | | | [place] [address] | | | | + + + + + + | BUN/Creatin | 18Comment: Testing | | EXTERNAL | | | ine Ratio | performed at [facility], [address] | | LAB | | | | [address], | | | | | | [place] [address] | | | | + + + + + + | Calcium | 9.1Comment: Testing | 8.5 - 10.2 | EXTERNAL | | | | performed at [facility], [address] | mg/dL | LAB | | | | [address], | | | | | | [place] [address] | | | | + + + + + + | Protein, | 6.4Comment: Testing | 6.3 - 8.2 g/dL | EXTERNAL | | | Total | performed at [facility], [address] | | LAB | | | | [address], | | | | | | [place] [address] | | | | + + + + + + | Albumin | 3.9Comment: Testing | 3.3 - 4.8 g/dL | EXTERNAL | | | | performed at [facility], [address] | | LAB | | | | [address], | | | | | | [place] [address] | | | | + + + + + + | Globulin | 2.5Comment: Testing | 1.3 - 4.9 g/dL | EXTERNAL | | | | performed at [facility], [address] | | LAB | | | | [address], | | | | | | [place] [address] | | | | + + + + + + | A/G Ratio | 1.6Comment: Testing | 1.0 - 2.4 | EXTERNAL | | | | performed at [facility], [address] | | LAB | | | | [address], | | | | | | [place] [address] | | | | + + + + + + | Bilirubin | 0.5Comment: Testing | 0.1 - 1.5 mg/dL | EXTERNAL | | | Total | performed at [facility], [address] | | LAB | | | | [address], | | | | | | [place] [address] | | | | + + + + + + | ALP, | 71Comment: Testing | 35 - 115 U/L | EXTERNAL | | | External | performed at [facility], [address] | | LAB | | | | [address], | | | | | | [place] [address] | | | | + + + + + + | AST | 38Comment: Testing | 10 - 45 U/L | EXTERNAL | | | | performed at [facility], [address] | | LAB | | | | [address], | | | | | | [place] [address] | | | | + + + + + + | ALT | 43Comment: Testing | 10 - 65 U/L | EXTERNAL | | | | performed at [facility], [address] | | LAB | | | | [address], | | | | | | [place] [address] | | | | + + + + + + | Estimated | 40 (L)Comment: GFR <60: | mL/min/1.73m2 | EXTERNAL [...] | | | | | | at [facility], [address] | | | | | | [address], | | | | | | [place] [address] | | | | + + + + + + + + | Specimen | + + | Blood specimen | | (specimen) | + + + +---------+ + + | Performing | Address | City/State/Zipcode | Phone Number | | Organization | | | | + +---------+ + + | EXTERNAL LAB | | | | + +---------+ + + CBC no Differential (09/11/2013 1:50 AM PDT) + + + + + + | Component | Value | Ref Range | Performed | Pathologist | | | | | At | Signature | + + + + + + | WBC | 6.5Comment: Testing | 3.8 - 11.0 K/uL | EXTERNAL | | | | performed at [facility];[address] | | LAB | | | [address];[place] | | | | | | [address] | | | | + + + + + + | RED CELL | 3.79Comment: Testing | 3.70 - 5.10 | EXTERNAL | | | COUNT | performed at [facility];[address] | M/uL | LAB | | | | [address];[place] | | | | | | [address] | | | | + + + + + + | Hgb | 12.1Comment: Testing | 11.3 - 15.5 | EXTERNAL | | | | performed at [facility];[address] | g/dL | LAB | | | | [address];[place] | | | | | | [address] | | | | + + + + + + | Hematocrit, | 36.2Comment: Testing | 34.0 - 46.0 % | EXTERNAL | | | POC | performed at [facility];[address] | | LAB | | | [address];[place] | | | | | | [address] | | | | + + + + + + | MCV | 95.5Comment: Testing | 80.0 - 100.0 fl | EXTERNAL | | | | performed at [facility];[address] | | LAB | | | [address];[place] | | | | | | [address] | | | | + + + + + + | MCH | 32.0Comment: Testing | 27.0 - 34.0 pg | EXTERNAL | | | | performed at [facility];[address] | | LAB | | | [address];[place] | | | | | | [address] | | | | + + + + + + | MCHC | 33.5Comment: Testing | 32.0 - 35.5 | EXTERNAL | | | | performed at [facility];[address] | g/dL | LAB | | | | [address];[place] | | | | | | [address] | | | | + + + + + + | RDW-CV | 48.1Comment: Testing | 37 - 53 fl | EXTERNAL | | | | performed at [facility];[address] | | LAB | | | [address];[place] | | | | | | [address] | | | | + + + + + + | Platelet | 210Comment: Testing | 150 - 400 K/uL | EXTERNAL | | | Count | performed at [facility];[address] | | LAB | | | Plasma | [address];[place] | | | | | | [address] | | | | + + + + + + | MPV | 8.5Comment: Testing | fl | EXTERNAL | | | | performed at [facility];[address] | | LAB | | | [address];[place] | | | | | | [address] | | | | + + + + + + + + | Specimen | + + | | + + + +---------+ + + | Performing | Address | City/State/Zipcode | Phone Number | | Organization | | | | + +---------+ + + | EXTERNAL LAB | | | | + +---------+ + + PTT (09/11/2013 1:50 AM PDT) + + + + + + | Component | Value | Ref Range | Performed | Pathologist | | | | | At | Signature | + + + + + + | aPTT, | 28Comment: Testing | 23 - 32 seconds | EXTERNAL | | | Patient | performed at [facility];[address] | | LAB | | | | [address];[place], [place] | | | | | | [address] | | | | + + + + + + + + | Specimen | + + | Blood specimen | | (specimen) | + + + +---------+ + + | Performing | Address | City/State/Zipcode | Phone Number | | Organization | | | | + +---------+ + + | EXTERNAL LAB | | | | + +---------+ + + Pam INR (09/11/2013 1:50 AM PDT) + + + + + + | Component | Value | Ref Range | Performed | Pathologist | | | | | At | Signature | + + + + + + | INR | 1.2Comment: REFERENCE | | [...] | | | | | performed at [facility] | | | | | | [address];[place], [place] | | | | | | [address] | | | | + + + + + + + + | Specimen | + + | Blood specimen | | (specimen) | + + + +---------+ + + | Performing | Address | City/State/Zipcode | Phone Number | | Organization | | | | + +---------+ + + | EXTERNAL LAB | | | | + +---------+ + + [facility] (09/11/2013 12:05 AM PDT) + + + + + -+ | Component | Value | Ref Range | Performed | Pathologist | | | | | At | Signature | + + + + + -+ | [facility] | 7.9 (H)Comment: Testing | 0.5 - 3.6 ng/mL | EXTERNAL | | | | performed [place] [facility] [place] | | LAB | | | | [address];[place] | | | | | | [address] | | | | + + + + + -+ | [facility] Index | 3.6Comment: CK INDEX | | EXTERNAL | | [...] | | | + +---------+ + + Troponin I (09/11/2013 12:05 AM PDT) + + + + + + | Component | Value | Ref Range | Performed | Pathologist | | | | | At | Signature | + + + + + + | Troponin I, | 1.17 ()Comment: 0.00 | 0.00 - 0.10 | EXTERNAL | | | Qual | to 0.10 CONSISTENT | ng/mL | LAB | | | | WITH NORMAL | | | | | | POPULATION0.11 to 0.60 | | | | | | CONSISTENT WITH | | | | | | INCREASED RISK FOR | | | | | | ADVERSE OUTCOMES> 0.60 | | | | | | CONSISTENT | | | | | | WITH WHO CRITERIA FOR | | | | | | ACUTE AL CKTRP PHONED TO | | | | | | 6RP KARMEN W AT 0100 BY | | | | | | LJREAD BACK RESULTS | | | | | | VERIFIEDTesting | | | | | | performed at [facility] [place] | | | | | | [address];[place], [place] | | | | | | [address] | | | | + + + + + + + + | Specimen | + + | Blood specimen | | (specimen) | + + + +---------+ + + | Performing | Address | City/State/Zipcode | Phone Number | | Organization | | | | + +---------+ + + | EXTERNAL LAB | | | | + +---------+ + + CK Total (09/11/2013 12:05 AM PDT) + + + + + + | Component | Value | Ref Range | Performed | Pathologist | | | | | At | Signature | + + + + + + | CK, Total | 222Comment: Testing | 30 - 240 U/L | EXTERNAL | | | | performed at [facility] [place] | | LAB | | | | [address];[place], [place] | | | | | | [address] | | | | + + + + + + + + | Specimen | + + | Blood specimen | | (specimen) | + + + +---------+ + + | Performing | Address | City/State/Zipcode | Phone Number | | Organization | | | | + +---------+ + + | EXTERNAL LAB | | | | + +---------+ + + POC CG 4, ISTAT Arterial (09/10/2013 6:58 PM PDT) + + + + + + | Component | Value | Ref Range | Performed | Pathologist | | | | | At | Signature | + + + + + + | PH ART | 7.367Comment: Testing | 7.350 - 7.450 | EXTERNAL | | | | performed at [facility] [place] | | LAB | | | [address];[place] | | | | | | [address] | | | | + + + + + + | PCO2 ART | 29 (L)Comment: Testing | 35 - 45 mmHg | EXTERNAL | | | | performed at [facility] [place] | LAB | | | [address];[place] | | | | | | [address] | | | | + + + + + + | PO2 ART | 80Comment: Testing | 80 - 105 mmHg | EXTERNAL | | | | performed at [facility] [place] | LAB | | | [address];[place] | | | | | | [address] | | | | + + + + + + | Lactate, | 2.5 (H)Comment: Testing | 0.36 - 1.25 | EXTERNAL | | | Arter[place] | [place] [facility] [place] | [place]/L | LAB | | | | [address];[place] | | | | | | [address] | | | | + + + + + + | HCO3 ART | 17 (L)Comment: Testing | 22 - 26 mmol/L | EXTERNAL | | | | [place] [facility] [place] | | [place] | | | | [address];[place] | | | | | | [address] | | | | + + + + + + | POC | 18 (L)Comment: Testing | 23 - 27 mEq/L | EXTERNAL | | | APPEARANCE | [place] [facility] [place] | | [place] | | | [place]A | [address];[place] | | | | | | [address] | | | | + + + + + + | Base | 8 (H)Comment: Testing | 0.0 - 2.0 | EXTERNAL | | | deficit | [place] [facility] [place] | mmol/L | LAB | | | | [address];[place] | | | | | | [address] | | | | + + + + + + | O2 SAT ART | 96Comment: Testing | 95 - 98 % | EXTERNAL | | | | performed [place] [facility] [place] | | LAB | | | | [address];[place] | | | | | | [address] | | | | + + + + + + | FiO2, POC | 28Comment: Testing | % | EXTERNAL | | | | performed [place] [facility] [place] | | LAB | | | | [address];[place] | | | | | | [address] | | | | + + + + + + + + | Specimen | + + | | + + + +---------+ + + | Performing | Address | City/State/Zipcode | Phone Number | | Organization | | | | + +---------+ + + | EXTERNAL LAB | | | | + +---------+ + + XR Chest 2 Vws (09/10/2013 6:45 PM PDT) + + | Specimen | + + | | + + + + + | Impressions | Performed At | + + + | 1. Cardiomegaly with pulmonary edema and mild to moderate | | | bilateral pleural effusions. | | + + + + + + | Narrative | Performed At | + + + | [facility] XR CHEST 2 VIEW FRONTAL AND LATERAL HISTORY: 83 | | | years. Female. Shortness of breath. TECHNIQUE: Frontal and | | | lateral views of the chest were obtained. COMPARISON: None. | | | FINDINGS: The heart is moderately enlarged. Pulmonary vascular | | | congestion with interstitial and mild parenchymal edema. Mild to | | | moderate bilateral pleural effusions. No pneumothorax. | | + + + + + | Procedure Note | + + | Ross, Rad Conversion - 11/26/2018 3:41 PM PDT [facility] CHEST 2 VIEW FRONTAL AND | | LATERAL HISTORY:83 years. Female. Shortness of breath. TECHNIQUE:Frontal and lateral | | views of the chest were obtained. COMPARISON:None. FINDINGS:The heart is moderately | | enlarged. Pulmonary vascular congestion with interstitial and mild parenchymal edema. | | Mild to moderate bilateral pleural effusions. No pneumothorax. IMPRESSION: 1. | | Cardiomegaly with pulmonary edema and mild to moderate bilateral pleural effusions. | | | |Frontal and lateral views of the chest were obtained. | | | |COMPARISON: | |None. | | | |FINDINGS: | |The heart is moderately enlarged. Pulmonary vascular congestion with interstitial and mild parenchymal edema. Mild to moderate bilateral pleural effusions. No pneumothorax. | | | |IMPRESSION: | |1. Cardiomegaly with pulmonary edema and mild to moderate bilateral pleural effusions. | | | | | + + B Type Natriuretic Peptide (09/10/2013 6:19 PM PDT) + + + + + + | Component | Value | Ref Range | Performed | Pathologist | | | | | At | Signature | + + + + + + | BNP | 3,670 (H)Comment: | 0 - 100 pg/mL | EXTERNAL | | | | Testing performed at | | LAB | | | | [facility] [place] [facility] | | | | | [address];[place] [address] | | | | + + + + + + + + | Specimen | + + | Blood specimen | | (specimen) | + + + +---------+ + + | Performing | Address | City/State/Zipcode | Phone Number | | Organization | | | | + +---------+ + + | EXTERNAL LAB | | | | + +---------+ + + Culture, Blood, 2nd Specimen (09/10/2013 6:19 PM PDT) + + | Specimen | + + | Blood specimen | | (specimen) | + + + + + | Narrative | Performed At | + + + | Specimen Description BLOOD, PERIPHERAL DRAW | EXTERNAL LAB | | SPECIAL REQUESTS LFA CULTURE | | | NO GROWTH REPORT STATUS | | | FINAL | | | 09/16/2013 | | + + + + +---------+ + + | Performing | Address | City/State/Zipcode | Phone Number | | Organization | | | | + +---------+ + + | EXTERNAL LAB | | | | + +---------+ + + Culture, Blood (09/10/2013 6:19 PM PDT) + + | Specimen | + + | Blood specimen | | (specimen) | + + + + + | Narrative | Performed At | + + + | Specimen Description BLOOD, PERIPHERAL DRAW | EXTERNAL LAB | | SPECIAL REQUESTS ANGEL CULTURE | | | NO GROWTH REPORT STATUS | | | FINAL | | | 09/16/2013 | | + + + + +---------+ + + | Performing | Address | City/State/Zipcode | Phone Number | | Organization | | | | + +---------+ + + | EXTERNAL LAB | | | | + +---------+ + + documented in this encounter Visit Diagnoses + + | Diagnosis | + + | CHF (congestive heart failure) (HCC) Congestive heart failure, unspecified | + + | Pulmonary edema Pulmonary congestion and hypostasis | + + | Elevated troponin I level Other abnormal blood chemistry | + + | Dyspnea Other dyspnea and respiratory abnormality | + + | LBBB (left bundle branch block) Other left bundle branch block | + + documented in this encounter
--- OUTSIDE RECORDS SUMMARY | ~2019-03-06 | XMS | Encounter Summary ---
Demographics + + + | Address | [address] | | | [place] [address] | + + + | Home Phone | | + + + | Preferred Language | Unknown | + + + | Marital Status | | + + + | Sabianism Affiliation | [id number] | + + + [...] [place], [place] | | | | | [address] | | + + + + + | Rivka Palma | ECON | Unknown | | + + + + + | Geno Kendall | ECON | Unknown | | + + + + + Care Team Providers + +------+ + | Care Chess Instructor Name | Role | Phone | + +------+ + | Lorenzo Valdes MD | PCP | | + +------+ + Encounter Details +--------+ + + + + | Date | Type | Department | Care Team | Description | +--------+ + + + + | 09/30/ | Hospital | [facility] | Rin Etienne, | Acute kidney injury | | 2014 - | Encounter | [facility] | MD Mary BAINS | (FORMERLY [facility]); Hypotension, | | | | CLINICAL DECISION | [place], [place] | unspecified; | | 10/06/ | | [facility] | [phone] | Cardiomyopathy | | 2013 | | [place], [place] | | (FORMERLY [facility]); DM (diabetes | | | | [id number] | | mellitus) (FORMERLY [facility]); CHF | | | | [phone] | | (congestive heart | | | | | | failure) (FORMERLY [facility]); | | | | | | Urinary tract | | | | | | infection, site not | | | | | | specified; | | | | | | Hypokalemia; | | | | | | Essential | | | | | | hypertension, benign | +--------+ + + + + Social [...] documented as of this encounter Discharge Summaries Richy Greenberg MD - 10/06/2013 10:41 AM PDTFormatting of this note might be different f rom the original. Discharge Summaries by Richy Greenberg MD at 10/06/13 1041 Author: Richy Greenberg MD Service: (none) Author Type: Physician Filed: 10/06/13 2948 Date of Service: 10/06/13 1041 Status: Signed Buttermaker Helper: Richy Greenberg MD (Physician) Related Notes: Original Note by Richy Greenberg MD (Physician) filed at 10/06/13 1045 [facility] Service: Hospitalist Discharge Summary Date of Admission: 09/30/2013 Date of Discharge: 10/06/2013 Discharge Provider: Richy Greenberg MD Treatment Team: Consulting Physician: Godfrey Shipman MD Admitting Provider: Rin Etienne MD Discharge Diagnoses: Principal Problem: *Acute kidney injury Active Problems: Essential hypertension, benign DM (diabetes mellitus) SOB (shortness of breath) CHF (congestive heart failure) CAD (coronary artery disease) Hypotension, unspecified Cardiomyopathy Urinary tract infection, site not specified Resolved Problems: * No resolved hospital problems. * Final Diagnoses: MADELEINE BRIEF HISTORY OF PRESENTATION: Tamiko Ireland is a 83 y.o. female who presented with MADELEINE HOSPITAL COURSE: The patient has history of severe systolic CHF and presented with acute kidney injury. She was managed with IV fluids and Dr. Shipman was following the patient. Initially her diuret ics and TORIN inhibitor were stopped and then they were restarted gradually. The patient's cre atinine did not return completely to baseline, but it was trending down and on the day of di scharge was about 1.4. Dr. Shipman is going to see the patient in the next week or so. JADON cainu ld be done Thursday, which is going to be in about 3 days. The patient is going to see Dr. Marti pickens, fitting room associate, today. She was discharged home in stable condition. Past Medical History Diagnosis Date Hypertension Asthma CHF (congestive heart failure) Hyperlipidemia Diabetes mellitus, type 2 Thyroid disease CAD (coronary artery disease) 09/13/2013 Acute kidney injury 09/30/2013 Past Surgical History Procedure Date Hysterectomy partial Bladder suspension Cataract extraction Allergies Allergen Reactions Lasix (Furosemide) Other (See Comments) Joint pain Latex Rash Prescriptions prior to admission Medication Sig Dispense Refill aspirin EC 81 MG EC tablet Take 81 mg by mouth daily with breakfast. budesonide (PULMICORT) 180 MCG/ACT inhaler Inhale 2 puffs into the lungs 2 (two) times daily. carvedilol (COREG) 6.25 MG tablet Take 1 tablet by mouth 2 (two) times daily with meals . 60 tablet 11 Cetirizine HCl 10 MG CAPS Take by mouth. Cholecalciferol 1000 UNITS capsule Take 1,000 Units by mouth daily. FLUTICASONE PROPIONATE, NASAL, NA by Nasal route. GUAIFENESIN 1200 PO Take by mouth. levothyroxine (SYNTHROID) 75 MCG tablet Take 75 mcg by mouth every morning before break fast. omeprazole (PRILOSEC) 20 MG capsule Take 20 mg by mouth every morning before breakfast. rosuvastatin (CRESTOR) 20 MG tablet Take 1 tablet by mouth nightly. 30 tablet 6 spironolactone (ALDACTONE) 25 MG tablet Take 25 mg by mouth daily. [DISCONTINUED] digoxin (LANOXIN) 0.125 MG tablet Take 1 tablet by mouth daily. 30 tabl et 11 [DISCONTINUED] lisinopril (ZESTRIL) 40 MG tablet Take 1 tablet by mouth daily. 30 tabl et 11 [DISCONTINUED] torsemide (DEMADEX) 20 MG tablet Take 1 tablet by mouth daily. 30 table t 11 albuterol (PROVENTIL HFA;VENTOLIN HFA) 108 (90 BASE) MCG/ACT inhaler Inhale 2 puffs int o the lungs every 4 (four) hours as needed for Wheezing. 18 g 3 DISCHARGE EXAM Vital Signs: BP 128/59 | Pulse 71 | Temp 98 F (36.7 C) (Oral) | Resp 16 | Ht 1.676 m (5' 6") | Wt 67 .677 kg (149 lb 3.2 oz) | BMI 24.09 kg/m2 | SpO2 96% | ? No Intake/Output Summary (Last 24 hours) at 10/06/13 1042 Last data filed at 10/06/13 0315 Gross per 24 hour Intake 650 ml Output 1700 ml Net -1050 ml Physical Exam Vitals reviewed. Constitutional: She is oriented to person, place, and time. No distress. HENT: Head: Normocephalic and atraumatic. Eyes: Conjunctivae normal are normal. Pupils are equal, round, and reactive to light. No sc leral icterus. Neck: No JVD present. Cardiovascular: Normal rate and regular rhythm. Exam reveals no gallop and no friction rub . Pulmonary/Chest: Effort normal. No stridor. No respiratory distress. She has no wheezes. Abdominal: Soft. She exhibits no distension. There is no tenderness. Musculoskeletal: She exhibits no edema and no tenderness. Neurological: She is alert and oriented to person, place, and time. No cranial nerve defici t. Skin: No rash noted. She is not diaphoretic. No erythema. Psychiatric: She has a normal mood and affect. Thought content normal. DATA CBC: Lab Results Component Value Date WBC 7.0 10/06/2013 RBC 3.88 10/06/2013 HGB 12.4 10/06/2013 HCT 37.0 10/06/2013 MCV 95.4 10/06/2013 MCH 32.0 10/06/2013 MCHC 33.6 10/06/2013 RDW 43.8 10/06/2013 PLT 151 10/06/2013 MPV 8.7 10/06/2013 DIFFTYPE AUTOMATED 10/06/2013 BMP: Lab Results Component Value Date NA 140 10/06/2013 K 3.3* 10/06/2013 CL 107 10/06/2013 CO2 24 10/06/2013 ANIONGAP 12 10/06/2013 GLUF 127* 10/06/2013 BUN 17 10/06/2013 CREATININE 1.37* 10/06/2013 BCR 12 10/06/2013 CA 9.3 10/06/2013 EGFR 39* 10/06/[address] Shipman. BMP next Thursday. Appointment with Dr. Lobo, the patient is going to see today. Patient's lisinopril was changed from 40 mg to 5 mg due to acute kidney injury. The torsemi de dose was decreased from 20 mg to 10 mg. Patient was strongly encouraged to continue seein g fitting room associate and lumber stacker operator due to severe CHF and kidney disease. Disposition: Home Condition: Stable Code Status: Full Code No discharge procedures on file. Follow up: MD Godfrey Bowen MD [address] [place] [address] Schedule an appointment as soon as possible for a visit Medication List As of 10/06/2013 10:41 AM START taking these medications potassium chloride 10 MEQ tablet QTY: 30 tablet Refills: 0 Commonly known as: K-DUR Take 1 tablet by mouth daily. CHANGE how you take these medications digoxin 0.125 MG tablet QTY: 30 tablet Refills: 11 Commonly known as: LANOXIN Take 1 tablet by mouth every other day. What changed: how often to take the med lisinopril 5 MG tablet QTY: 30 tablet Refills: 11 Commonly known as: ZESTRIL Take 1 tablet by mouth daily. What changed: - medication strength - dose torsemide 10 MG tablet QTY: 30 tablet Refills: 11 Commonly known as: DEMADEX Take 1 tablet by mouth daily. What changed: - medication strength - dose CONTINUE taking these medications albuterol 108 (90 BASE) MCG/ACT inhaler QTY: 18 g Refills: 3 Commonly known as: PROVENTIL HFA;VENTOLIN HFA Inhale 2 puffs into the lungs every 4 (four) hours as needed for Wheezing. aspirin EC 81 MG EC tablet Refills: 0 budesonide 180 MCG/ACT inhaler Refills: 0 Commonly known as: PULMICORT carvedilol 6.25 MG tablet QTY: 60 tablet Refills: 11 For diagnoses: Heart Failure Commonly known as: COREG Take 1 tablet by mouth 2 (two) times daily with meals. Cetirizine HCl 10 MG Caps Refills: 0 Cholecalciferol 1000 UNITS capsule Refills: 0 FLUTICASONE PROPIONATE (NASAL) NA Refills: 0 GUAIFENESIN 1200 PO Refills: 0 levothyroxine 75 MCG tablet Refills: 0 Commonly known as: SYNTHROID omeprazole 20 MG capsule Refills: 0 Commonly known as: PRILOSEC rosuvastatin 20 MG tablet QTY: 30 tablet Refills: 6 Commonly known as: CRESTOR Take 1 tablet by mouth nightly. spironolactone 25 MG tablet Refills: 0 Commonly known as: ALDACTONE STOP taking these medications BACTRIM PO metFORMIN 500 MG tablet Commonly known as: GLUCOPHAGE Where to get your medications These are the prescriptions that you need to bulk picker. You may get these medications from any pharmacy. lisinopril 5 MG tablet potassium chloride 10 MEQ tablet torsemide 10 MG tablet Information on where to get these meds is not yet available. Ask your nurse or doctor. digoxin 0.125 MG tablet Discharge took 35 minutes, to include final examination, discussion of admission, and prepa ration of prescriptions, instructions for on-going care, follow-up and documentation of disc harge summary. Richy Greenberg MD 10/06/2013 documented in this encounter Medications at Time [...] | | | | | | | (FORMERLY [facility]), Bronchitis, | | | | | | | obstructive, chronic | | | | | | | (FORMERLY [facility]) | | | | | | + [...] Progress Notes Conversion Transaction, Provider Unknown - 10/06/2013 11:31 AM PDTFormatting of this note m ight be different from the original. Nurse Progress Note by Janice Toth RN at 10/06/13 1131 Author: Janice Toth RN Service: (none) Author Type: Registered Nurse Filed: 10/06/13 1132 Date of Service: 10/06/13 113 Status: Signed Buttermaker Helper: Janice Toth RN (Registered Nurse) Discharge instructions explained to patient and her family. They voice understanding. Disch arged per w/c to . Home per private car.Janice Toth 10/06/2013 Godfrey Taylor - 10/06/2013 10:53 AM PDTFormatting of this note might be different from the or iginal. Progress Notes by Godfrey Shipman MD at 10/06/13 1053 Author: Godfrey Shipman MD Service: Nephrology Author Type: Physician Filed: 10/18/13 1329 Date of Service: 10/06/13 105 Status: Signed Buttermaker Helper: Godfrey Shipman MD (Physician) [facility] Service: NEPHROLOGY progress Note Tamiko Ireland 83 y.o. [id number] female [address] [facility] Day: LOS: 6 days The patient is a 83 y.o. female with significant past medical history of Asthma, Hypertensi on, Hyperlipidemia, Diabetes mellitus-2, CAD, severe CMP who admitted with dizziness and li ghtheadedness, ARF . Her creatinine was found to be 3.5 from 0.9 on discharge. On the , she had labs done as an outpatient it was 1.9. Nephrology consulted for evaluation and management of ARF Lab Results Component Value Date BUN 17 10/06/2013 BUN 18 10/05/2013 BUN 18 10/04/2013 BUN 31* 10/03/2013 BUN 50* 10/02/2013 CREATININE 1.37* 10/06/2013 CREATININE 1.61* 10/05/2013 CREATININE 1.24* 10/04/2013 CREATININE 1.80* 10/03/2013 CREATININE 2.27* 10/02/2013 ONSET ACUTE severity SEVERE, IMPROVING Associated with fluid electrolyte acid base imbalances RF: LOW BP/ DIURETICS TORSEMIDE, ALDACTONE/ HEMODYNAMIC EFFECT OF LISINOPRIL CONTRIBUTING/ bactrim 1/2 tab daily for uti prophylaxis Pateint seen and examined Says feel Better, SOB AT BASE LINE, +ve dry cough WANTS TO GO HOME Denies cp, nausea, vomiting, diarrhea, fever, headache, rash Past Medical History Diagnosis Date Hypertension Asthma CHF (congestive heart failure) Hyperlipidemia Diabetes mellitus, type 2 Thyroid disease CAD (coronary artery disease) 09/13/2013 Acute kidney injury 09/30/2013 Past Surgical History Procedure Date Hysterectomy partial Bladder suspension Cataract extraction Prescriptions prior to admission Medication Sig Dispense Refill aspirin EC 81 MG EC tablet Take 81 mg by mouth daily with breakfast. budesonide (PULMICORT) 180 MCG/ACT inhaler Inhale 2 puffs into the lungs 2 (two) times daily. carvedilol (COREG) 6.25 MG tablet Take 1 tablet by mouth 2 (two) times daily with meals . 60 tablet 11 Cetirizine HCl 10 MG CAPS Take by mouth. Cholecalciferol 1000 UNITS capsule Take 1,000 Units by mouth daily. FLUTICASONE PROPIONATE, NASAL, NA by Nasal route. GUAIFENESIN 1200 PO Take by mouth. levothyroxine (SYNTHROID) 75 MCG tablet Take 75 mcg by mouth every morning before break fast. omeprazole (PRILOSEC) 20 MG capsule Take 20 mg by mouth every morning before breakfast. rosuvastatin (CRESTOR) 20 MG tablet Take 1 tablet by mouth nightly. 30 tablet 6 spironolactone (ALDACTONE) 25 MG tablet Take 25 mg by mouth daily. [DISCONTINUED] digoxin (LANOXIN) 0.125 MG tablet Take 1 tablet by mouth daily. 30 tabl et 11 [DISCONTINUED] lisinopril (ZESTRIL) 40 MG tablet Take 1 tablet by mouth daily. 30 tabl et 11 [DISCONTINUED] torsemide (DEMADEX) 20 MG tablet Take 1 tablet by mouth daily. 30 table t 11 albuterol (PROVENTIL HFA;VENTOLIN HFA) 108 (90 BASE) MCG/ACT inhaler Inhale 2 puffs int o the lungs every 4 (four) hours as needed for Wheezing. 18 g 3 Allergies Allergen Reactions Lasix (Furosemide) Other (See Comments) Joint pain Latex Rash History Social History Marital Status: Spouse Name: N/A Number of Children: N/A Years of Education: N/A Occupational History Not on file. Social History Main Topics Smoking status: Former Smoker Smokeless tobacco: Never Used Alcohol Use: No Drug Use: No Sexually Active: Other Topics Concern Not on file Social History Narrative No narrative on file Scheduled Medications aspirin EC 81 mg Oral Daily with breakfast budesonide 2 puff Inhalation BID carvedilol 6.25 mg Oral BID WC digoxin 0.125 mg Oral Every Other Day heparin (porcine) 5,000 Units Subcutaneous Q8H insulin aspart 0-10 Units Subcutaneous TID AC insulin aspart 0-5 Units Subcutaneous Nightly ipratropium-albuterol 3 mL Nebulization Q6H levothyroxine 75 mcg Oral QAM AC lisinopril 5 mg Oral Daily omeprazole 20 mg Oral QAM AC rosuvastatin 20 mg Oral Nightly spironolactone 25 mg Oral Daily torsemide 10 mg Oral Daily Continuous Infusions dextrose PRN Medications acetaminophen, acetaminophen, dextrose, dextrose, dextrose, glucagon, glucagon, ondansetron , ondansetron, polyethylene glycol, zolpidem Allergy: Allergies Allergen Reactions Lasix (Furosemide) Other (See Comments) Joint pain Latex Rash OBJECTIVE Vital Signs: BP 128/59 | Pulse 71 | Temp 98 F (36.7 C) (Oral) | Resp 16 | Ht 1.676 m (5' 6") | Wt 67 .677 kg (149 lb 3.2 oz) | BMI 24.09 kg/m2 | SpO2 96% | ? No I&O Detailed Table: I/O last 3 completed shifts: In: 1050 [P.O.:1050] Out: 2100 [Urine:2100] Weight change: -1.179 kg (-2 lb 9.6 oz) Examination: APPEARANCE: The patient is a pleasant lying in no apparent distress. VITALS: Reviewed as listed. HEAD: NC/AT. EYES: Non-icteric sclera. ENT: Buccal mucosa is moist. No gross ear or nasal problems noted. NECK: Supple. No raised JVD LUNGS: GOOD A/E bilaterally. HEART: S1, S2, no pericardial rub noted. ABDOMEN: Full, soft, no tenderness. Bowel sounds are present. EXTREMITIES: trace pedal edema noted. SKIN: Warm to touch. No rash or ecchymosis noted. NEUROLOGIC: No gross focal motor deficit noted. PSYCH: The patient is alert and oriented x 3, mood and affect looks ok, memory seems to be intact. BACK: no CVA tenderness noted LABS: reviewed from community health RECORDS Recent Results (from the past 24 hour(s)) POCT GLUCOSE Collection Time 10/05/13 11:02 AM Component Value Range GLUCOSE,POC SCREEN 217 (*) 65 - 99 mg/dL POCT GLUCOSE Collection Time 10/05/13 3:40 PM Component Value Range GLUCOSE,POC SCREEN 113 (*) 65 - 99 mg/dL POCT GLUCOSE Collection Time 10/05/13 8:50 PM Component Value Range GLUCOSE,POC SCREEN 184 (*) 65 - 99 mg/dL MAGNESIUM Collection Time 10/06/13 4:33 AM Component Value Range MAGNESIUM 1.4 (*) 1.7 - 2.4 mg/dL PHOSPHOROUS Collection Time 10/06/13 4:33 AM Component Value Range PHOSPHORUS 2.9 2.3 - 4.8 mg/dL BASIC METABOLIC PANEL Collection Time 10/06/13 4:33 AM Component Value Range SODIUM 140 135 - 143 mmol/L POTASSIUM 3.3 (*) 3.5 - 4.9 mmol/L CHLORIDE 107 99 - 109 mmol/L CO2 24 23 - 32 mmol/L ANION GAP AGAP 12 5 - 20 mmol/L GLUCOSE 127 (*) 65 - 99 mg/dL BUN 17 8 - 25 mg/dL CREATININE 1.37 (*) 0.50 - 1.00 mg/dL BUN/CREAT 12 CALCIUM 9.3 8.5 - 10.2 mg/dL EGFR 39 (*) >60 mL/min/1.73m2 CBC W/AUTO DIFF (REFLEX TO MANUAL) Collection Time 10/06/13 4:33 AM Component Value Range WBC 7.0 3.8 - 11.0 K/uL RBC 3.88 3.70 - 5.10 M/uL HGB 12.4 11.3 - 15.5 g/dL HCT 37.0 34.0 - 46.0 % MCV 95.4 80.0 - 100.0 fl MCH 32.0 27.0 - 34.0 pg MCHC 33.6 32.0 - 35.5 g/dL RDW SD 43.8 37 - 53 fl PLT 151 150 - 400 K/uL MPV 8.7 DIFF TYPE AUTOMATED NEUTROPHILS 43.7 LYMPHOCYTES 36.3 MONOCYTES 13.1 EOSINOPHILS 5.9 BASOPHILS 1.0 NEUTROPHILS ABS 3.1 1.9 - 7.4 K/uL LYMPHOCYTES ABS 2.5 1.0 - 3.9 K/uL MONOCYTES ABS 0.9 (*) 0 - 0.8 K/uL EOSINOPHILS ABS 0.4 0 - 0.5 K/uL BASOPHILS ABS 0.1 0 - 0.1 K/uL IMAGING: XR CHEST 2 VIEW FRONTAL AND LATERAL 09/30/2013 8:07 PM INDICATION: Shortness of breath COMPARISON: 09/10/13 TECHNIQUE: Two view chest, PA and lateral views FINDINGS: There is mild enlargement of the cardiac silhouette which is improved in appearan ce from prior study. Previously noted interstitial edema is resolved. There is no mediastina l widening or shift. There is no pneumothorax. No pleural fluid is present. Moderate osteope ana and mild degenerative disc disease of the thoracic spine is present. The lungs are clear with no consolidation. A band of atelectasis is demonstrated along the right middle lobe. T here are no pulmonary nodules. There are no acute rib fractures. IMPRESSION: 1. There is atelectasis versus a developing process of the right middle lobe. 09/15/13 1. A limited 2-dimensional transthoracic echocardiogram with limited spectral and color fl ow Doppler was performed. 2. This was a technically adequate study. 3. Overall left ventricular systolic function is severely impaired with, an EF < 20%. Patient's old records and labs were reviewed in detail and summarized. PROBLEM LIST Principal Problem: *Acute kidney injury Active Problems: Essential hypertension, benign DM (diabetes mellitus) SOB (shortness of breath) CHF (congestive heart failure) CAD (coronary artery disease) Hypotension, unspecified Cardiomyopathy Urinary tract infection, site not specified ASSESSMENT & PLAN MADELEINE IMPROVING LIKELY SECONDARY TO Renal hypoperfusion IN THE SETTING OF LOW BP/ DIURETICS TORSEMIDE, RAMYA CTONE/ HEMODYNAMIC EFFECT OF LISINOPRIL CONTRIBUTING/ bactrim 1/2 tab daily for uti prophyla xis RULED OUT HYDRONEPHROSIS PER US RENAL StOP IV FLUIDS GENTLE NS 50 MLS/HR WITH CLOSE WATCH FOR CARDIOPULMONARY STATUS KEEP MAP GREATER THAN 65 MM HG OPTIMIZE CARDIAC MEDS PER HOSPITALIST / CARDIOLOGY TEAM GIVEN SEVERE CMP CONTINUE LISINOPRIL LOW DOSE 5 MG WITH LOW DOSE TORSEMIDE 10 MG DAILY OVER 2 LITERS +VE WATCH RFP CLOSELY ALREADY ON ALDACTONE AND COREG OFF BACTRIM Urine studies REVIEWED Strict I & O, Daily weights Daily RFP Renal diet AVOID NSAIDS/ JEONG-2 INHIBITORS AVOID NEPHROTOXIC MEDS INCLUDING AMINOGLYCOSIDES/ IV CONTRAST Dose all meds for crcl less than 30 mls/min Lab Results Component Value Date BUN 17 10/06/2013 BUN 18 10/05/2013 BUN 18 10/04/2013 BUN 31* 10/03/2013 BUN 50* 10/02/2013 CREATININE 1.37* 10/06/2013 CREATININE 1.61* 10/05/2013 CREATININE 1.24* 10/04/2013 CREATININE 1.80* 10/03/2013 CREATININE 2.27* 10/02/2013 Hypotension RESOLVED CONTINUE LISINOPRIL LOW DOSE 5 MG WITH TORSEMIDE 10 MG DAILY GIVEN SEVERE CMP WATCH BP CLOSELY KEEP MAP GREATER THAN 65 MM HG BP Readings from Last 3 Encounters: 10/06/13 128/59 09/17/13 97/52 DM-2 OPTIMUM GLYCEMIC CONTROL CMP SEVERE EF < 20% PER ECHO 09/15/13 OPTIMIZE CARDIAC MEDS PER HOSPITALIST / CARDIOLOGY TEAM CONTINUE LISINOPRIL LOW DOSE 5 MG WITH TORSEMIDE 10 MG DAILY WATCH RFP CLOSELY HYPOKALEMIA REPLACE TO KEEP k GREATER THAN 3.8 START KCL 10 MEQ DAILY OUTPATIENT GOING TO SEE DR LOBO TODAY OUTPATIENT IN [facility], OR CASE DISCUSSED IN DETAIL WITH PATIENT/ FAMILY/HOSPITALIST, ANSWERS ALL QUESTIONS IN DETAIL, VERBALIZES UNDERSTANDING F/U WITH ME IN 2-3 WEEKS POST DISCHARGE WITH REPEAT LABS D/W PATIENT AND HOSPITALIST GODFREY SHIPMAN MD 10/06/2013 CANDICE VALDES onversion Transactio n, Provider Unknown - 10/06/2013 5:18 AM PDT Nurse Progress Note by Vanna Dykes RN at 10/06/13517 Author: Vanna Dykes RN Service: (none) Author Type: Registered Nurse Filed: 10/06/13518 Date of Service: 10/06/13517 Status: Signed Buttermaker Helper: Vanna Dykes RN (Registered Nurse) Patient appears to be resting comfortably this shift. Vital signs have been stable. She h as been afebrile. No complaints of nausea, vomiting, or pain. No changes from previous ass essment. Patient visualized hourly and needs addressed. Will discuss plan of care with oncbisi sepulveda RN. Vanna Dykes RN 10/06/2013 5:19 AM onver yajaira Transaction, Provider Unknown - 10/05/2013 6:27 PM PDT Progress Notes by Melissa Álvarez RN at 10/05/131826 Author: Melissa Álvarez RN Service: (none) Author Type: Registered Nurse Filed: 10/05/131827 Date of Service: 10/05/131826 Status: Signed Buttermaker Helper: Melissa Álvarez RN (Registered Nurse) Pt has appeared comfortable throughout shift, no complaints of any kind. VS stable. Ambul ated in hallway and room. No changes from earlier assessment, will continue to monitor. Deidra Barfield Richy Escamilla i, MD - 10/05/2013 1:50 PM PDT Progress Notes by Richy Greenberg MD at 10/05/13 1350 Author: Richy Greenberg MD Service: (none) Author Type: Physician Filed: 10/06/13 7587 Date of Service: 10/05/13 1350 Status: Signed Buttermaker Helper: Richy Greenberg MD (Physician) Related Notes: Original Note by Richy Greenberg MD (Physician) filed at 10/05/13 1358 [facility] Service: Hospitalist Progress Note Hospital Day: LOS: 5 days Post-Op Day: * No surgery found * SUBJECTIVE Patient Summary: The patient reports no active complaints. No shortness of breath. No chest pain. No nausea or vomiting. Events Overnight: none Scheduled Medications aspirin EC 81 mg Oral Daily with breakfast budesonide 2 puff Inhalation BID carvedilol 6.25 mg Oral BID WC digoxin 0.125 mg Oral Every Other Day heparin (porcine) 5,000 Units Subcutaneous Q8H insulin aspart 0-10 Units Subcutaneous TID AC insulin aspart 0-5 Units Subcutaneous Nightly ipratropium-albuterol 3 mL Nebulization Q6H levothyroxine 75 mcg Oral QAM AC lisinopril 5 mg Oral Daily omeprazole 20 mg Oral QAM AC rosuvastatin 20 mg Oral Nightly spironolactone 25 mg Oral Daily torsemide 10 mg Oral Daily [DISCONTINUED] cefTRIAXone 1 g Intravenous Q24H Continuous Infusions dextrose PRN Medications acetaminophen, acetaminophen, dextrose, dextrose, dextrose, glucagon, glucagon, ondansetron , ondansetron, polyethylene glycol, zolpidem OBJECTIVE Vital Signs: BP 116/55 | Pulse 74 | Temp 97.5 F (36.4 C) (Axillary) | Resp 16 | Ht 1.676 m (5' 6") | Wt 68.856 kg (151 lb 12.8 oz) | BMI 24.51 kg/m2 | SpO2 95% | ? No Intake/Output Summary (Last 24 hours) at 10/05/13 1351 Last data filed at 10/05/13 0322 Gross per 24 hour Intake 1200 ml Output 1600 ml Net -400 ml Physical Exam Vitals reviewed. Constitutional: She is oriented to person, place, and time. No distress. HENT: Head: Normocephalic and atraumatic. Mouth/Throat: No oropharyngeal exudate. Eyes: Conjunctivae normal are normal. Pupils are equal, round, and reactive to light. Left eye exhibits no discharge. No scleral icterus. Neck: Neck supple. Cardiovascular: Normal rate and regular rhythm. Exam reveals no friction rub. No murmur heard. Pulmonary/Chest: Effort normal. No stridor. She has no wheezes. Abdominal: Soft. She exhibits no distension. There is no tenderness. Musculoskeletal: She exhibits no edema. Neurological: She is alert and oriented to person, place, and time. No cranial nerve defici t. Coordination normal. Skin: No rash noted. She is not diaphoretic. No erythema. Psychiatric: She has a normal mood and affect. Thought content normal. DATA CBC: Lab Results Component Value Date WBC 7.5 10/05/2013 RBC 3.73 10/05/2013 HGB 11.9 10/05/2013 HCT 36.0 10/05/2013 MCV 96.4 10/05/2013 MCH 32.0 10/05/2013 MCHC 33.1 10/05/2013 RDW 44.6 10/05/2013 PLT 139* 10/05/2013 MPV 8.7 10/05/2013 DIFFTYPE AUTOMATED 10/05/2013 BMP: Lab Results Component Value Date NA 140 10/05/2013 K 3.5 10/05/2013 CL 109 10/05/2013 CO2 24 10/05/2013 ANIONGAP 11 10/05/2013 GLUF 117* 10/05/2013 BUN 18 10/05/2013 CREATININE 1.61* 10/05/2013 BCR 11 10/05/2013 CA 9.1 10/05/2013 EGFR 33* 10/05/2013 PROBLEM LIST Principal Problem: *Acute kidney injury Active Problems: Essential hypertension, benign DM (diabetes mellitus) SOB (shortness of breath) CHF (congestive heart failure) CAD (coronary artery disease) Hypotension, unspecified Cardiomyopathy Urinary tract infection, site not specified ASSESSMENT & PLAN 1. Acute kidney injury. Discussed with Dr. Shipman again today in detail. The patient's creati nine is slightly up. She was started on torsemide. We will see what the trend is and if the patient's creatinine is going up, especially if it markedly getting elevated, the medication s will need to be adjusted including diuretics and lisinopril. Urine output is adequate and the patient clearly responded with torsemide. 2. History of systolic congestive heart failure, chronic, severe. EF 25% to 30%. Continue d igoxin and lisinopril which was started yesterday. Continue torsemide for now. 3. Diabetes. Continue sliding scale insulin, metformin can now be restarted because of stab le creatinine. 4. Urinary tract infection. Resolved with antibiotics. 5. DVT prophylaxis. SCDs and subcutaneous heparin. Disposition: none Code Status: Full Code Richy Greenberg MD 10/05/2013 Godfrey Taylor - 10/05/2013 9:11 AM PDT Progress Notes by Godfrey Shipman MD at 10/05/13 09 Author: Godfrey Shipman MD Service: Nephrology Author Type: Physician Filed: 10/18/13 1322 Date of Service: 10/05/13910 Status: Signed Buttermaker Helper: Godfrey Shipman MD (Physician) Formerly [facility] Service: NEPHROLOGY progress Note Tamiko Ireland 83 y.o. [id number] female [facility] Day: LOS: 5 days The patient is a 83 y.o. female with significant past medical history of Asthma, Hypertensi on, Hyperlipidemia, Diabetes mellitus-2, CAD, severe CMP who admitted with dizziness and li ghtheadedness, ARF . Her creatinine was found to be 3.5 from 0.9 on discharge. On the , she had labs done as an outpatient it was 1.9. Nephrology consulted for evaluation and management of ARF Lab Results Component Value Date BUN 18 10/05/2013 BUN 18 10/04/2013 BUN 31* 10/03/2013 BUN 50* 10/02/2013 BUN 66* 10/01/2013 CREATININE 1.61* 10/05/2013 CREATININE 1.24* 10/04/2013 CREATININE 1.80* 10/03/2013 CREATININE 2.27* 10/02/2013 CREATININE 3.00* 10/01/2013 ONSET ACUTE severity SEVERE, IMPROVING Associated with fluid electrolyte acid base imbalances RF: LOW BP/ DIURETICS TORSEMIDE, ALDACTONE/ HEMODYNAMIC EFFECT OF LISINOPRIL CONTRIBUTING/ bactrim 1/2 tab daily for uti prophylaxis Pateint seen and examined Says feel Better, sob ok, +ve dry cough Denies cp, nausea, vomiting, diarrhea, fever, headache, rash Past Medical History Diagnosis Date Hypertension Asthma CHF (congestive heart failure) Hyperlipidemia Diabetes mellitus, type 2 Thyroid disease CAD (coronary artery disease) 09/13/2013 Acute kidney injury 09/30/2013 Past Surgical History Procedure Date Hysterectomy partial Bladder suspension Cataract extraction Prescriptions prior to admission Medication Sig Dispense Refill aspirin EC 81 MG EC tablet Take 81 mg by mouth daily with breakfast. budesonide (PULMICORT) 180 MCG/ACT inhaler Inhale 2 puffs into the lungs 2 (two) times daily. carvedilol (COREG) 6.25 MG tablet Take 1 tablet by mouth 2 (two) times daily with meals . 60 tablet 11 Cetirizine HCl 10 MG CAPS Take by mouth. Cholecalciferol 1000 UNITS capsule Take 1,000 Units by mouth daily. digoxin (LANOXIN) 0.125 MG tablet Take 1 tablet by mouth daily. 30 tablet 11 FLUTICASONE PROPIONATE, NASAL, NA by Nasal route. GUAIFENESIN 1200 PO Take by mouth. levothyroxine (SYNTHROID) 75 MCG tablet Take 75 mcg by mouth every morning before break fast. lisinopril (ZESTRIL) 40 MG tablet Take 1 tablet by mouth daily. 30 tablet 11 metFORMIN (GLUCOPHAGE) 500 MG tablet Take 500 mg by mouth daily. omeprazole (PRILOSEC) 20 MG capsule Take 20 mg by mouth every morning before breakfast. rosuvastatin (CRESTOR) 20 MG tablet Take 1 tablet by mouth nightly. 30 tablet 6 spironolactone (ALDACTONE) 25 MG tablet Take 25 mg by mouth daily. Sulfamethoxazole-Trimethoprim (BACTRIM PO) Take by mouth daily. Takes 1/2 tablet of un known dose daily. torsemide (DEMADEX) 20 MG tablet Take 1 tablet by mouth daily. 30 tablet 11 albuterol (PROVENTIL HFA;VENTOLIN HFA) 108 (90 BASE) MCG/ACT inhaler Inhale 2 puffs int o the lungs every 4 (four) hours as needed for Wheezing. 18 g 3 Allergies Allergen Reactions Lasix (Furosemide) Other (See Comments) Joint pain Latex Rash History Social History Marital Status: Spouse Name: N/A Number of Children: N/A Years of Education: N/A Occupational History Not on file. Social History Main Topics Smoking status: Former Smoker Smokeless tobacco: Never Used Alcohol Use: No Drug Use: No Sexually Active: Other Topics Concern Not on file Social History Narrative No narrative on file Scheduled Medications aspirin EC 81 mg Oral Daily with breakfast budesonide 2 puff Inhalation BID carvedilol 6.25 mg Oral BID WC digoxin 0.125 mg Oral Every Other Day heparin (porcine) 5,000 Units Subcutaneous Q8H insulin aspart 0-10 Units Subcutaneous TID AC insulin aspart 0-5 Units Subcutaneous Nightly ipratropium-albuterol 3 mL Nebulization Q6H levothyroxine 75 mcg Oral QAM AC lisinopril 5 mg Oral Daily omeprazole 20 mg Oral QAM AC rosuvastatin 20 mg Oral Nightly spironolactone 25 mg Oral Daily torsemide 10 mg Oral Daily [DISCONTINUED] cefTRIAXone 1 g Intravenous Q24H Continuous Infusions dextrose [DISCONTINUED] sodium chloride 50 mL/hr at 10/04/13 0011 PRN Medications acetaminophen, acetaminophen, dextrose, dextrose, dextrose, glucagon, glucagon, ondansetron , ondansetron, polyethylene glycol, zolpidem Allergy: Allergies Allergen Reactions Lasix (Furosemide) Other (See Comments) Joint pain Latex Rash OBJECTIVE Vital Signs: BP 132/61 | Pulse 64 | Temp 98.1 F (36.7 C) (Oral) | Resp 16 | Ht 1.676 m (5' 6") | Wt 68.856 kg (151 lb 12.8 oz) | BMI 24.51 kg/m2 | SpO2 94% | ? No I&O Detailed Table: I/O last 3 completed shifts: In: 2464.5 [P.O.:1600; I.V.:864.5] Out: 2400 [Urine:2400] Weight change: -0.907 kg (-2 lb) Examination: APPEARANCE: The patient is a pleasant lying in no apparent distress. VITALS: Reviewed as listed. HEAD: NC/AT. EYES: Non-icteric sclera. ENT: Buccal mucosa is moist. No gross ear or nasal problems noted. NECK: Supple. No raised JVD LUNGS: Clear to auscultation bilaterally. HEART: S1, S2, no pericardial rub noted. ABDOMEN: Full, soft, no tenderness. Bowel sounds are present. EXTREMITIES: trace pedal edema noted. SKIN: Warm to touch. No rash or ecchymosis noted. NEUROLOGIC: No gross focal motor deficit noted. PSYCH: The patient is alert and oriented x 3, mood and affect looks ok, memory seems to be intact. BACK: no CVA tenderness noted LABS: reviewed from community health RECORDS Recent Results (from the past 24 hour(s)) POCT GLUCOSE Collection Time 10/04/13 11:04 AM Component Value Range GLUCOSE,POC SCREEN 157 (*) 65 - 99 mg/dL POCT GLUCOSE Collection Time 10/04/13 4:40 PM Component Value Range GLUCOSE,POC SCREEN 123 (*) 65 - 99 mg/dL POCT GLUCOSE Collection Time 10/04/13 9:23 PM Component Value Range GLUCOSE,POC SCREEN 144 (*) 65 - 99 mg/dL MAGNESIUM Collection Time 10/05/13 4:10 AM Component Value Range MAGNESIUM 1.6 (*) 1.7 - 2.4 mg/dL PHOSPHOROUS Collection Time 10/05/13 4:10 AM Component Value Range PHOSPHORUS 2.6 2.3 - 4.8 mg/dL BASIC METABOLIC PANEL Collection Time 10/05/13 4:10 AM Component Value Range SODIUM 140 135 - 143 mmol/L POTASSIUM 3.5 3.5 - 4.9 mmol/L CHLORIDE 109 99 - 109 mmol/L CO2 24 23 - 32 mmol/L ANION GAP AGAP 11 5 - 20 mmol/L GLUCOSE 117 (*) 65 - 99 mg/dL BUN 18 8 - 25 mg/dL CREATININE 1.61 (*) 0.50 - 1.00 mg/dL BUN/CREAT 11 CALCIUM 9.1 8.5 - 10.2 mg/dL EGFR 33 (*) >60 mL/min/1.73m2 CBC W/AUTO DIFF (REFLEX TO MANUAL) Collection Time 10/05/13 4:10 AM Component Value Range WBC 7.5 3.8 - 11.0 K/uL RBC 3.73 3.70 - 5.10 M/uL HGB 11.9 11.3 - 15.5 g/dL HCT 36.0 34.0 - 46.0 % MCV 96.4 80.0 - 100.0 fl MCH 32.0 27.0 - 34.0 pg MCHC 33.1 32.0 - 35.5 g/dL RDW SD 44.6 37 - 53 fl PLT 139 (*) 150 - 400 K/uL MPV 8.7 DIFF TYPE AUTOMATED NEUTROPHILS 49.1 LYMPHOCYTES 32.4 MONOCYTES 11.9 EOSINOPHILS 5.7 BASOPHILS 0.9 NEUTROPHILS ABS 3.7 1.9 - 7.4 K/uL LYMPHOCYTES ABS 2.4 1.0 - 3.9 K/uL MONOCYTES ABS 0.9 (*) 0 - 0.8 K/uL EOSINOPHILS ABS 0.4 0 - 0.5 K/uL BASOPHILS ABS 0.1 0 - 0.1 K/uL IMAGING: XR CHEST 2 VIEW FRONTAL AND LATERAL 09/30/2013 8:07 PM INDICATION: Shortness of breath COMPARISON: 09/10/13 TECHNIQUE: Two view chest, PA and lateral views FINDINGS: There is mild enlargement of the cardiac silhouette which is improved in appearan ce from prior study. Previously noted interstitial edema is resolved. There is no mediastina l widening or shift. There is no pneumothorax. No pleural fluid is present. Moderate osteope ana and mild degenerative disc disease of the thoracic spine is present. The lungs are clear with no consolidation. A band of atelectasis is demonstrated along the right middle lobe. T here are no pulmonary nodules. There are no acute rib fractures. IMPRESSION: 1. There is atelectasis versus a developing process of the right middle lobe. 09/15/13 1. A limited 2-dimensional transthoracic echocardiogram with limited spectral and color fl ow Doppler was performed. 2. This was a technically adequate study. 3. Overall left ventricular systolic function is severely impaired with, an EF < 20%. Patient's old records and labs were reviewed in detail and summarized. PROBLEM LIST Principal Problem: *Acute kidney injury Active Problems: Essential hypertension, benign DM (diabetes mellitus) SOB (shortness of breath) CHF (congestive heart failure) CAD (coronary artery disease) Hypotension, unspecified Cardiomyopathy Urinary tract infection, site not specified ASSESSMENT & PLAN MADELEINE SLIGHTLY WORSENED LIKELY SECONDARY TO Renal hypoperfusion IN THE SETTING OF LOW BP/ DIURETICS TORSEMIDE, RAMYA CTONE/ HEMODYNAMIC EFFECT OF LISINOPRIL CONTRIBUTING/ bactrim 1/2 tab daily for uti prophyla xis RULED OUT HYDRONEPHROSIS PER US RENAL StOP IV FLUIDS KEEP MAP GREATER THAN 65 MM HG OPTIMIZE CARDIAC MEDS PER HOSPITALIST / CARDIOLOGY TEAM GIVEN SEVERE CMP CONTINUE LISINOPRIL LOW DOSE 5 MG WITH LOW DOSE TORSEMIDE 10 MG DAILY GIVEN OVER 2 LITERS + VE WATCH RFP CLOSELY ALREADY ON ALDACTONE AND COREG OFF BACTRIM Urine studies REVIEWED Strict I & O, Daily weights Daily RFP Renal diet AVOID NSAIDS/ JEONG-2 INHIBITORS AVOID NEPHROTOXIC MEDS INCLUDING AMINOGLYCOSIDES/ IV CONTRAST Dose all meds for crcl less than 30 mls/min Lab Results Component Value Date BUN 18 10/05/2013 BUN 18 10/04/2013 BUN 31* 10/03/2013 BUN 50* 10/02/2013 BUN 66* 10/01/2013 CREATININE 1.61* 10/05/2013 CREATININE 1.24* 10/04/2013 CREATININE 1.80* 10/03/2013 CREATININE 2.27* 10/02/2013 CREATININE 3.00* 10/01/2013 Hypotension IMPROVED CONTINUE LISINOPRIL LOW DOSE 5 MG WITH TORSEMIDE 10 MG DAILY GIVEN SEVERE CMP WATCH BP CLOSELY KEEP MAP GREATER THAN 65 MM HG BP Readings from Last 3 Encounters: 10/05/13 132/61 09/17/13 97/52 DM-2 OPTIMUM GLYCEMIC CONTROL CMP SEVERE EF < 20% PER ECHO 09/15/13 OPTIMIZE CARDIAC MEDS PER HOSPITALIST / CARDIOLOGY TEAM CONTINUE LISINOPRIL LOW DOSE 5 MG WITH TORSEMIDE 10 MG DAILY CONTINUE COREG WATCH RFP CLOSELY Urinary tract infection IV ceftriaxone CASE DISCUSSED IN DETAIL WITH PATIENT/ FAMILY/HOSPITALIST, ANSWERS ALL QUESTIONS IN DETAIL, VERBALIZES UNDERSTANDING GODFREY SHIPMAN MD 10/05/2013 CANDICE VALDES Molina Rodney Chapl ain - 10/05/2013 9:08 AM PDT Progress Notes by Molina Wheat at 10/05/13 09 Author: Molina Wheat Service: (none) Author Type: Filed: 10/05/1312 Date of Service: 10/05/13907 Status: Signed Buttermaker Helper: Molina Wheat () I visited with Pt she reports she has been in and out of the hospital and it is wearing on her and her family. She requested prayer and encouragement she states her family will be com ing to visit this after noon. Chaplain Sampson onversion Cm saction, Provider Unknown - 10/05/2013 5:01 AM PDTFormatting of this note might be differen t from the original. Progress Notes by Vanna Dykes RN at 10/05/13500 Author: Vanna Dykes RN Service: (none) Author Type: Registered Nurse Filed: 10/05/13502 Date of Service: 10/05/13500 Status: Signed Buttermaker Helper: Vanna Dykes RN (Registered Nurse) Patent appears to be resting comfortably this shift. Vital sign have been stable. She has been afebrile. No complaints of nausea, vomiting, or pain. Patient weaned off O2 today, d enies SOB. Patient visualized hourly and needs addressed. Will discuss plan of care with bisi frias RN. Vanna Dykes RN 10/05/2013 5:02 AM onver yajaira Transaction, Provider Unknown - 10/04/2013 7:18 PM PDT Progress Notes by Melissa Álvarez RN at 10/04/131917 Author: Melissa Álvarez RN Service: (none) Author Type: Registered Nurse Filed: 10/04/131918 Date of Service: 10/04/131917 Status: Signed Buttermaker Helper: Melissa Álvarez RN (Registered Nurse) Pt has been resting comfortably throughout shift, ambulated in room and in dodd. VS stable . Has voided since betancourt removed earlier in shift. Complained of headache, tylenol given w ith effective results. No other complaints throughout shift. Will continue to monitor. Deidra Barfield ichy Wisdom i, MD - 10/04/2013 6:07 PM PDT Progress Notes by Richy Greenberg MD at 10/04/131806 Author: Richy Greenberg MD Service: (none) Author Type: Physician Filed: 10/05/13 1328 Date of Service: 10/04/131806 Status: Signed Buttermaker Helper: Richy Greenberg MD (Physician) Related Notes: Original Note by Richy Greenberg MD (Physician) filed at 10/04/131810 Formerly [facility] Service: Hospitalist Progress Note Hospital Day: LOS: 4 days Post-Op Day: * No surgery found * SUBJECTIVE Patient Summary: The patient reports no active complaints. She requests to go home. U harry further questioning she denies shortness of breath, nausea or vomiting, or chest or abdo anya pain. Events Overnight: none Scheduled Medications aspirin EC 81 mg Oral Daily with breakfast budesonide 2 puff Inhalation BID carvedilol 6.25 mg Oral BID WC cefTRIAXone 1 g Intravenous Q24H [START ON 10/05/2013] digoxin 0.125 mg Oral Every Other Day heparin (porcine) 5,000 Units Subcutaneous Q8H insulin aspart 0-10 Units Subcutaneous TID AC insulin aspart 0-5 Units Subcutaneous Nightly ipratropium-albuterol 3 mL Nebulization Q6H levothyroxine 75 mcg Oral QAM AC lisinopril 5 mg Oral Daily omeprazole 20 mg Oral QAM AC rosuvastatin 20 mg Oral Nightly spironolactone 25 mg Oral Daily torsemide 10 mg Oral Daily Continuous Infusions dextrose [DISCONTINUED] sodium chloride 50 mL/hr at 10/04/13 0011 PRN Medications acetaminophen, acetaminophen, dextrose, dextrose, dextrose, glucagon, glucagon, ondansetron , ondansetron, polyethylene glycol, zolpidem OBJECTIVE Vital Signs: BP 126/65 | Pulse 66 | Temp 98.1 F (36.7 C) (Oral) | Resp 16 | Ht 1.676 m (5' 6") | Wt 69.763 kg (153 lb 12.8 oz) | BMI 24.84 kg/m2 | SpO2 93% | ? No Intake/Output Summary (Last 24 hours) at 10/04/131807 Last data filed at 06/24/14 1804 Gross per 24 hour Intake 2064.53 ml Output 2000 ml Net 64.53 ml Physical Exam Vitals reviewed. Constitutional: She is oriented to person, place, and time. No distress. HENT: Head: Normocephalic and atraumatic. Mouth/Throat: No oropharyngeal exudate. Eyes: Conjunctivae normal are normal. Pupils are equal, round, and reactive to light. Left eye exhibits no discharge. No scleral icterus. Neck: Neck supple. No JVD present. Cardiovascular: Normal rate and regular rhythm. Exam reveals no friction rub. Pulmonary/Chest: No stridor. No respiratory distress. Abdominal: She exhibits no distension. There is no tenderness. Musculoskeletal: She exhibits no edema and no tenderness. Neurological: She is alert and oriented to person, place, and time. No cranial nerve defici t. Skin: No rash noted. She is not diaphoretic. No erythema. There is pallor. Psychiatric: Thought content normal. DATA CBC: Lab Results Component Value Date WBC 6.8 10/04/2013 RBC 3.81 10/04/2013 HGB 12.2 10/04/2013 HCT 36.6 10/04/2013 MCV 96.2 10/04/2013 MCH 31.9 10/04/2013 MCHC 33.2 10/04/2013 RDW 45.1 10/04/2013 PLT 136* 10/04/2013 MPV 8.7 10/04/2013 DIFFTYPE AUTOMATED 10/04/2013 BMP: Lab Results Component Value Date NA 140 10/04/2013 K 4.0 10/04/2013 CL 113* 10/04/2013 CO2 22* 10/04/2013 ANIONGAP 9 10/04/2013 GLUF 118* 10/04/2013 BUN 18 10/04/2013 CREATININE 1.24* 10/04/2013 BCR 15 10/04/2013 CA 9.1 10/04/2013 EGFR 44* 10/04/2013 PROBLEM LIST Principal Problem: *Acute kidney injury Active Problems: Essential hypertension, benign DM (diabetes mellitus) SOB (shortness of breath) CHF (congestive heart failure) CAD (coronary artery disease) Hypotension, unspecified Cardiomyopathy Urinary tract infection, site not specified ASSESSMENT & PLAN Acute kidney injury. Discussed with Dr. Shipman in detail. The patient was started on Aldacton e yesterday. Renal function is almost at the baseline right now. Dr. Shipman is willing to watc h the patient 1 more day with restarting of torsemide and 5 mg of lisinopril. The patient di d have problems with hypertension before so we are going to monitor her blood pressure and u rine output closely as well as kidney function. Her Betancourt catheter was taken out. History of CHF. Coreg, spironolactone, digoxin continued. Lisinopril was started at 5 mg on ly as well as torsemide 10 mg. Diabetes. Continues with sliding scale. Metformin can be probably started once kidney funct ion gets to normal levels. UTI. Antibiotics stopped. The patient finished 3 days of antibiotics. DVT prophylaxis. SCDs and heparin subcutaneous. Disposition: pending Code Status: Full Code Richy Greenberg MD 10/04/2013 Godfrey Taylor - 10/04/2013 11:25 AM PDT Progress Notes by Godfrey Shipman MD at 10/04/13 1125 Author: Godfrey Shipman MD Service: Nephrology Author Type: Physician Filed: 10/04/13 1131 Date of Service: 10/04/13 1125 Status: Signed Buttermaker Helper: Godfrey Shipman MD (Physician) Formerly [facility] Service: NEPHROLOGY progress Note Tamiko Ireland 83 y.o. [id number] female [facility] Day: LOS: 4 days The patient is a 83 y.o. female with significant past medical history of Asthma, Hypertensi on, Hyperlipidemia, Diabetes mellitus-2, CAD, severe CMP who admitted with dizziness and li ghtheadedness, ARF . Her creatinine was found to be 3.5 from 0.9 on discharge. On the , she had labs done as an outpatient it was 1.9. Nephrology consulted for evaluation and management of ARF Lab Results Component Value Date BUN 18 10/04/2013 BUN 31* 10/03/2013 BUN 50* 10/02/2013 BUN 66* 10/01/2013 BUN 41* 09/22/2013 CREATININE 1.24* 10/04/2013 CREATININE 1.80* 10/03/2013 CREATININE 2.27* 10/02/2013 CREATININE 3.00* 10/01/2013 CREATININE 1.90* 09/22/2013 ONSET ACUTE severity SEVERE, IMPROVING Associated with fluid electrolyte acid base imbalances RF: LOW BP/ DIURETICS TORSEMIDE, ALDACTONE/ HEMODYNAMIC EFFECT OF LISINOPRIL CONTRIBUTING/ bactrim 1/2 tab daily for uti prophylaxis Pateint seen and examined Says feel Better, on n/c o2 sob ok, +ve dry cough Denies cp, nausea, vomiting, diarrhea, fever, headache, rash Past Medical History Diagnosis Date Hypertension Asthma CHF (congestive heart failure) Hyperlipidemia Diabetes mellitus, type 2 Thyroid disease CAD (coronary artery disease) 09/13/2013 Acute kidney injury 09/30/2013 Past Surgical History Procedure Date Hysterectomy partial Bladder suspension Cataract extraction Prescriptions prior to admission Medication Sig Dispense Refill aspirin EC 81 MG EC tablet Take 81 mg by mouth daily with breakfast. budesonide (PULMICORT) 180 MCG/ACT inhaler Inhale 2 puffs into the lungs 2 (two) times daily. carvedilol (COREG) 6.25 MG tablet Take 1 tablet by mouth 2 (two) times daily with meals . 60 tablet 11 Cetirizine HCl 10 MG CAPS Take by mouth. Cholecalciferol 1000 UNITS capsule Take 1,000 Units by mouth daily. digoxin (LANOXIN) 0.125 MG tablet Take 1 tablet by mouth daily. 30 tablet 11 FLUTICASONE PROPIONATE, NASAL, NA by Nasal route. GUAIFENESIN 1200 PO Take by mouth. levothyroxine (SYNTHROID) 75 MCG tablet Take 75 mcg by mouth every morning before break fast. lisinopril (ZESTRIL) 40 MG tablet Take 1 tablet by mouth daily. 30 tablet 11 metFORMIN (GLUCOPHAGE) 500 MG tablet Take 500 mg by mouth daily. omeprazole (PRILOSEC) 20 MG capsule Take 20 mg by mouth every morning before breakfast. rosuvastatin (CRESTOR) 20 MG tablet Take 1 tablet by mouth nightly. 30 tablet 6 spironolactone (ALDACTONE) 25 MG tablet Take 25 mg by mouth daily. Sulfamethoxazole-Trimethoprim (BACTRIM PO) Take by mouth daily. Takes 1/2 tablet of un known dose daily. torsemide (DEMADEX) 20 MG tablet Take 1 tablet by mouth daily. 30 tablet 11 albuterol (PROVENTIL HFA;VENTOLIN HFA) 108 (90 BASE) MCG/ACT inhaler Inhale 2 puffs int o the lungs every 4 (four) hours as needed for Wheezing. 18 g 3 Allergies Allergen Reactions Lasix (Furosemide) Other (See Comments) Joint pain Latex Rash History Social History Marital Status: Spouse Name: N/A Number of Children: N/A Years of Education: N/A Occupational History Not on file. Social History Main Topics Smoking status: Former Smoker Smokeless tobacco: Never Used Alcohol Use: No Drug Use: No Sexually Active: Other Topics Concern Not on file Social History Narrative No narrative on file Scheduled Medications aspirin EC 81 mg Oral Daily with breakfast budesonide 2 puff Inhalation BID carvedilol 6.25 mg Oral BID WC cefTRIAXone 1 g Intravenous Q24H [START ON 10/05/2013] digoxin 0.125 mg Oral Every Other Day heparin (porcine) 5,000 Units Subcutaneous Q8H insulin aspart 0-10 Units Subcutaneous TID AC insulin aspart 0-5 Units Subcutaneous Nightly ipratropium-albuterol 3 mL Nebulization Q6H levothyroxine 75 mcg Oral QAM AC lisinopril 5 mg Oral Daily omeprazole 20 mg Oral QAM AC rosuvastatin 20 mg Oral Nightly spironolactone 25 mg Oral Daily torsemide 10 mg Oral Daily [DISCONTINUED] digoxin 0.125 mg Oral Daily Continuous Infusions dextrose [DISCONTINUED] sodium chloride 50 mL/hr at 10/04/13 0011 PRN Medications acetaminophen, acetaminophen, dextrose, dextrose, dextrose, glucagon, glucagon, ondansetron , ondansetron, polyethylene glycol, zolpidem Allergy: Allergies Allergen Reactions Lasix (Furosemide) Other (See Comments) Joint pain Latex Rash OBJECTIVE Vital Signs: BP 112/53 | Pulse 61 | Temp 98.5 F (36.9 C) (Oral) | Resp 16 | Ht 1.676 m (5' 6") | Wt 69.763 kg (153 lb 12.8 oz) | BMI 24.84 kg/m2 | SpO2 92% | ? No I&O Detailed Table: I/O last 3 completed shifts: In: 3057.5 [P.O.:1350; I.V.:1657.5; IV Piggyback:50] Out: 2780 [Urine:2780] Weight change: -0.091 kg (-3.2 oz) Examination: APPEARANCE: The patient is a pleasant lying in no apparent distress. VITALS: Reviewed as listed. HEAD: NC/AT. EYES: Non-icteric sclera. ENT: Buccal mucosa is moist. No gross ear or nasal problems noted. NECK: Supple. No raised JVD LUNGS: Clear to auscultation bilaterally. HEART: S1, S2, no pericardial rub noted. ABDOMEN: Full, soft, no tenderness. Bowel sounds are present. EXTREMITIES: trace pedal edema noted. SKIN: Warm to touch. No rash or ecchymosis noted. NEUROLOGIC: No gross focal motor deficit noted. PSYCH: The patient is alert and oriented x 3, mood and affect looks ok, memory seems to be intact. BACK: no CVA tenderness noted LABS: reviewed from community health RECORDS Recent Results (from the past 24 hour(s)) POCT GLUCOSE Collection Time 10/03/13 11:36 AM Component Value Range GLUCOSE,POC SCREEN 115 (*) 65 - 99 mg/dL DIGOXIN LEVEL Collection Time 10/03/13 3:10 PM Component Value Range DATE OF LAST DOSE NOT GIVEN TIME OF LAST DOSE NOT GIVEN DIGOXIN LEVEL 1.4 0.90 - 2.00 ng/mL POCT GLUCOSE Collection Time 10/03/13 4:28 PM Component Value Range GLUCOSE,POC SCREEN 158 (*) 65 - 99 mg/dL POCT GLUCOSE Collection Time 10/03/13 8:51 PM Component Value Range GLUCOSE,POC SCREEN 165 (*) 65 - 99 mg/dL MAGNESIUM Collection Time 10/04/13 4:04 AM Component Value Range MAGNESIUM 1.9 1.7 - 2.4 mg/dL PHOSPHOROUS Collection Time 10/04/13 4:04 AM Component Value Range PHOSPHORUS 2.6 2.3 - 4.8 mg/dL BASIC METABOLIC PANEL Collection Time 10/04/13 4:04 AM Component Value Range SODIUM 140 135 - 143 mmol/L POTASSIUM 4.0 3.5 - 4.9 mmol/L CHLORIDE 113 (*) 99 - 109 mmol/L CO2 22 (*) 23 - 32 mmol/L ANION GAP AGAP 9 5 - 20 mmol/L GLUCOSE 118 (*) 65 - 99 mg/dL BUN 18 8 - 25 mg/dL CREATININE 1.24 (*) 0.50 - 1.00 mg/dL BUN/CREAT 15 CALCIUM 9.1 8.5 - 10.2 mg/dL EGFR 44 (*) >60 mL/min/1.73m2 CBC W/AUTO DIFF (REFLEX TO MANUAL) Collection Time 10/04/13 4:04 AM Component Value Range WBC 6.8 3.8 - 11.0 K/uL RBC 3.81 3.70 - 5.10 M/uL HGB 12.2 11.3 - 15.5 g/dL HCT 36.6 34.0 - 46.0 % MCV 96.2 80.0 - 100.0 fl MCH 31.9 27.0 - 34.0 pg MCHC 33.2 32.0 - 35.5 g/dL RDW SD 45.1 37 - 53 fl PLT 136 (*) 150 - 400 K/uL MPV 8.7 DIFF TYPE AUTOMATED NEUTROPHILS 51.5 LYMPHOCYTES 30.0 MONOCYTES 11.2 EOSINOPHILS 6.4 BASOPHILS 0.9 NEUTROPHILS ABS 3.5 1.9 - 7.4 K/uL LYMPHOCYTES ABS 2.0 1.0 - 3.9 K/uL MONOCYTES ABS 0.8 0 - 0.8 K/uL EOSINOPHILS ABS 0.4 0 - 0.5 K/uL BASOPHILS ABS 0.1 0 - 0.1 K/uL POCT GLUCOSE Collection Time 10/04/13 5:25 AM Component Value Range GLUCOSE,POC SCREEN 118 (*) 65 - 99 mg/dL IMAGING: XR CHEST 2 VIEW FRONTAL AND LATERAL 09/30/2013 8:07 PM INDICATION: Shortness of breath COMPARISON: 09/10/13 TECHNIQUE: Two view chest, PA and lateral views FINDINGS: There is mild enlargement of the cardiac silhouette which is improved in appearan ce from prior study. Previously noted interstitial edema is resolved. There is no mediastina l widening or shift. There is no pneumothorax. No pleural fluid is present. Moderate osteope ana and mild degenerative disc disease of the thoracic spine is present. The lungs are clear with no consolidation. A band of atelectasis is demonstrated along the right middle lobe. T here are no pulmonary nodules. There are no acute rib fractures. IMPRESSION: 1. There is atelectasis versus a developing process of the right middle lobe. 09/15/13 1. A limited 2-dimensional transthoracic echocardiogram with limited spectral and color fl ow Doppler was performed. 2. This was a technically adequate study. 3. Overall left ventricular systolic function is severely impaired with, an EF < 20%. Patient's old records and labs were reviewed in detail and summarized. PROBLEM LIST Principal Problem: *Acute kidney injury Active Problems: Essential hypertension, benign DM (diabetes mellitus) SOB (shortness of breath) CHF (congestive heart failure) CAD (coronary artery disease) Hypotension, unspecified Cardiomyopathy Urinary tract infection, site not specified ASSESSMENT & PLAN MADELEINE LIKELY SECONDARY TO Renal hypoperfusion IN THE SETTING OF LOW BP/ DIURETICS TORSEMIDE, RAMYA CTONE/ HEMODYNAMIC EFFECT OF LISINOPRIL CONTRIBUTING/ bactrim 1/2 tab daily for uti prophyla xis RULED OUT HYDRONEPHROSIS PER US RENAL StOP IV FLUIDS GENTLE NS 50 MLS/HR WITH CLOSE WATCH FOR CARDIOPULMONARY STATUS KEEP MAP GREATER THAN 65 MM HG OPTIMIZE CARDIAC MEDS PER HOSPITALIST / CARDIOLOGY TEAM GIVEN SEVERE CMP START LISINOPRIL LOW DOSE 5 MG WITH LOW DOSE TORSEMIDE 10 MG DAILY OVER 2 LITERS +VE WATCH RFP CLOSELY ALREADY ON ALDACTONE AND COREG OFF BACTRIM Urine studies REVIEWED Strict I & O, Daily weights Daily RFP Renal diet AVOID NSAIDS/ JEONG-2 INHIBITORS AVOID NEPHROTOXIC MEDS INCLUDING AMINOGLYCOSIDES/ IV CONTRAST Dose all meds for crcl less than 30 mls/min Lab Results Component Value Date BUN 18 10/04/2013 BUN 31* 10/03/2013 BUN 50* 10/02/2013 BUN 66* 10/01/2013 BUN 41* 09/22/2013 CREATININE 1.24* 10/04/2013 CREATININE 1.80* 10/03/2013 CREATININE 2.27* 10/02/2013 CREATININE 3.00* 10/01/2013 CREATININE 1.90* 09/22/2013 Hypotension IMPROVED START LISINOPRIL LOW DOSE 5 MG WITH TORSEMIDE 10 MG DAILY GIVEN SEVERE CMP WATCH RFP CLOSELY KEEP MAP GREATER THAN 65 MM HG BP Readings from Last 3 Encounters: 10/04/13 112/53 09/17/13 97/52 DM-2 OPTIMUM GLYCEMIC CONTROL CMP SEVERE EF < 20% PER ECHO 09/15/13 OPTIMIZE CARDIAC MEDS PER HOSPITALIST / CARDIOLOGY TEAM START LISINOPRIL LOW DOSE 5 MG WITH TORSEMIDE 10 MG DAILY WATCH RFP CLOSELY CASE DISCUSSED IN DETAIL WITH PATIENT/ FAMILY/HOSPITALIST, ANSWERS ALL QUESTIONS IN DETAIL, VERBALIZES UNDERSTANDING GODFREY SHIPMAN MD 10/04/2013 CANDICE VALDES onversion Transactio n, Provider Unknown - 10/04/2013 10:31 AM PDT Case Management by JAIMEE Gage at 10/04/13 1031 Author: JAIMEE Gage Service: (none) Author Type: National Sales Manager Filed: 10/04/13 1115 Date of Service: 10/04/13 1031 Status: Signed Buttermaker Helper: JAIMEE Gage (National Sales Manager) On Jana LUKE's request to provide tele health for pt upon her dc. CM contacted [facility] or [facility].to set up tele health for Pt. Maki with [facility] ated that the hospital membreno not offer tele health in the hospital or the area of [facility] . Pt stated that she will not need tele health because she has all the necessary equipments and strong family support at home to monitor and take her weight, BP and heart rate. Pt lik norman DC today 10/04/2013 and will be transported home by her daughter and SO. onver yajaira Transaction, Provider Unknown - 10/04/2013 5:16 AM PDT Nurse Progress Note by Vanna Dykes RN at 10/04/13 0516 Author: Vanna Dykes RN Service: (none) Author Type: Registered Nurse Filed: 10/04/13 0518 Date of Service: 10/04/13 0516 Status: Signed Buttermaker Helper: Vanna Dykes RN (Registered Nurse) Patient appears to be resting comfortably in bed. Vital signs have been stable. She has b een afebrile. No complaints of SOB. No complaints of nausea, vomiting, or pain. No acute changes from previous assessment. Patient visualized hourly and needs addressed. Will dis cuss plan of care with oncoming RN. Vanna Dykes RN 10/04/2013 5:18 AM odfrey Shipman - 10/03/2013 7:21 PM PDTFormatting of this note might be different from the or iginal. Progress Notes by Godfrey Shipman MD at 10/03/131920 Author: Godfrey Shipman MD Service: Nephrology Author Type: Physician Filed: 10/18/13 1318 Date of Service: 10/03/131920 Status: Signed Buttermaker Helper: Godfrey Shipman MD (Physician) Formerly [facility] Service: NEPHROLOGY PROGRESS Note Tamiko Ireland 83 y.o. [id number] female [facility] Day: LOS: 3 days The patient is a 83 y.o. female with significant past medical history of Asthma, Hypertensi on, Hyperlipidemia, Diabetes mellitus-2, CAD, severe CMP who admitted with dizziness and lig htheadedness/ ARF . Her creatinine was found to be 3.5 from 0.9 on discharge. On the , she had labs done as an outpatient it was 1.9. Nephrology consulted for evaluation and management of ARF Lab Results Component Value Date BUN 31* 10/03/2013 BUN 50* 10/02/2013 BUN 66* 10/01/2013 BUN 41* 09/22/2013 BUN 20 09/17/2013 CREATININE 1.80* 10/03/2013 CREATININE 2.27* 10/02/2013 CREATININE 3.00* 10/01/2013 CREATININE 1.90* 09/22/2013 CREATININE 0.91 09/17/2013 ONSET ACUTE severity SEVERE, IMPROVING Associated with fluid electrolyte acid base imbalances RF: LOW BP/ DIURETICS TORSEMIDE, ALDACTONE/ HEMODYNAMIC EFFECT OF LISINOPRIL CONTRIBUTING/ bactrim 1/2 tab daily for uti prophylaxis Pateint seen and examined Says feel weak, +VE COUGH, IMPROVED BP Denies cp, sob, nausea, vomiting, diarrhea, fever, headache, rash Past Medical History Diagnosis Date Hypertension Asthma CHF (congestive heart failure) Hyperlipidemia Diabetes mellitus, type 2 Thyroid disease CAD (coronary artery disease) 09/13/2013 Acute kidney injury 09/30/2013 Past Surgical History Procedure Date Hysterectomy partial Bladder suspension Cataract extraction Prescriptions prior to admission Medication Sig Dispense Refill aspirin EC 81 MG EC tablet Take 81 mg by mouth daily with breakfast. budesonide (PULMICORT) 180 MCG/ACT inhaler Inhale 2 puffs into the lungs 2 (two) times daily. carvedilol (COREG) 6.25 MG tablet Take 1 tablet by mouth 2 (two) times daily with meals . 60 tablet 11 Cetirizine HCl 10 MG CAPS Take by mouth. Cholecalciferol 1000 UNITS capsule Take 1,000 Units by mouth daily. digoxin (LANOXIN) 0.125 MG tablet Take 1 tablet by mouth daily. 30 tablet 11 FLUTICASONE PROPIONATE, NASAL, NA by Nasal route. GUAIFENESIN 1200 PO Take by mouth. levothyroxine (SYNTHROID) 75 MCG tablet Take 75 mcg by mouth every morning before break fast. lisinopril (ZESTRIL) 40 MG tablet Take 1 tablet by mouth daily. 30 tablet 11 metFORMIN (GLUCOPHAGE) 500 MG tablet Take 500 mg by mouth daily. omeprazole (PRILOSEC) 20 MG capsule Take 20 mg by mouth every morning before breakfast. rosuvastatin (CRESTOR) 20 MG tablet Take 1 tablet by mouth nightly. 30 tablet 6 spironolactone (ALDACTONE) 25 MG tablet Take 25 mg by mouth daily. Sulfamethoxazole-Trimethoprim (BACTRIM PO) Take by mouth daily. Takes 1/2 tablet of un known dose daily. torsemide (DEMADEX) 20 MG tablet Take 1 tablet by mouth daily. 30 tablet 11 albuterol (PROVENTIL HFA;VENTOLIN HFA) 108 (90 BASE) MCG/ACT inhaler Inhale 2 puffs int o the lungs every 4 (four) hours as needed for Wheezing. 18 g 3 Allergies Allergen Reactions Lasix (Furosemide) Other (See Comments) Joint pain Latex Rash History Social History Marital Status: Spouse Name: N/A Number of Children: N/A Years of Education: N/A Occupational History Not on file. Social History Main Topics Smoking status: Former Smoker Smokeless tobacco: Never Used Alcohol Use: No Drug Use: No Sexually Active: Other Topics Concern Not on file Social History Narrative No narrative on file Scheduled Medications aspirin EC 81 mg Oral Daily with breakfast budesonide 2 puff Inhalation BID carvedilol 6.25 mg Oral BID WC cefTRIAXone 1 g Intravenous Q24H [START ON 10/04/2013] digoxin 0.125 mg Oral Every Other Day heparin (porcine) 5,000 Units Subcutaneous Q8H insulin aspart 0-10 Units Subcutaneous TID AC insulin aspart 0-5 Units Subcutaneous Nightly ipratropium-albuterol 3 mL Nebulization Q6H levothyroxine 75 mcg Oral QAM AC [COMPLETED] magnesium sulfate 2 g Intravenous Once omeprazole 20 mg Oral QAM AC rosuvastatin 20 mg Oral Nightly spironolactone 25 mg Oral Daily [DISCONTINUED] digoxin 0.125 mg Oral Daily Continuous Infusions dextrose sodium chloride 50 mL/hr at 10/03/13 0135 PRN Medications acetaminophen, acetaminophen, dextrose, dextrose, dextrose, glucagon, glucagon, ondansetron , ondansetron, polyethylene glycol, zolpidem Allergy: Allergies Allergen Reactions Lasix (Furosemide) Other (See Comments) Joint pain Latex Rash OBJECTIVE Vital Signs: BP 117/57 | Pulse 71 | Temp 97.7 F (36.5 C) (Oral) | Resp 16 | Ht 1.676 m (5' 6") | Wt 69.854 kg (154 lb) | BMI 24.87 kg/m2 | SpO2 94% | ? No I&O Detailed Table: I/O last 3 completed shifts: In: 3688 [P.O.:1930; I.V.:1708; IV Piggyback:50] Out: 2906 [Urine:2905; Stool:1] Weight change: 5.054 kg (11 lb 2.3 oz) Examination: APPEARANCE: The patient is a pleasant sitting in no apparent distress. VITALS: Reviewed as listed. HEAD: NC/AT. EYES: Non-icteric sclera. ENT: Buccal mucosa is MOIST NECK: Supple. No raised JVD LUNGS: Clear to auscultation bilaterally. HEART: S1, S2, no pericardial rub noted. ABDOMEN: Full, soft, no tenderness. Bowel sounds are present. EXTREMITIES: no pedal edema noted. SKIN: Warm to touch. No rash or ecchymosis noted. NEUROLOGIC: No gross focal motor deficit noted. PSYCH: The patient is alert and oriented x 3, mood and affect looks ok BACK: no CVA tenderness noted LABS: reviewed from community health RECORDS Recent Results (from the past 24 hour(s)) POCT GLUCOSE Collection Time 10/02/13 9:13 PM Component Value Range GLUCOSE,POC SCREEN 117 (*) 65 - 99 mg/dL MAGNESIUM Collection Time 10/03/13 4:10 AM Component Value Range MAGNESIUM 1.5 (*) 1.7 - 2.4 mg/dL PHOSPHOROUS Collection Time 10/03/13 4:10 AM Component Value Range PHOSPHORUS 3.0 2.3 - 4.8 mg/dL BASIC METABOLIC PANEL Collection Time 10/03/13 4:10 AM Component Value Range SODIUM 141 135 - 143 mmol/L POTASSIUM 4.3 3.5 - 4.9 mmol/L CHLORIDE 112 (*) 99 - 109 mmol/L CO2 23 23 - 32 mmol/L ANION GAP AGAP 10 5 - 20 mmol/L GLUCOSE 100 (*) 65 - 99 mg/dL BUN 31 (*) 8 - 25 mg/dL CREATININE 1.80 (*) 0.50 - 1.00 mg/dL BUN/CREAT 17 CALCIUM 8.9 8.5 - 10.2 mg/dL EGFR 29 (*) >60 mL/min/1.73m2 CBC W/AUTO DIFF (REFLEX TO MANUAL) Collection Time 10/03/13 4:10 AM Component Value Range WBC 7.1 3.8 - 11.0 K/uL RBC 3.74 3.70 - 5.10 M/uL HGB 12.1 11.3 - 15.5 g/dL HCT 36.3 34.0 - 46.0 % MCV 97.2 80.0 - 100.0 fl MCH 32.4 27.0 - 34.0 pg MCHC 33.3 32.0 - 35.5 g/dL RDW SD 44.2 37 - 53 fl PLT 140 (*) 150 - 400 K/uL MPV 8.6 DIFF TYPE AUTOMATED NEUTROPHILS 46.5 LYMPHOCYTES 33.1 MONOCYTES 12.6 EOSINOPHILS 6.9 BASOPHILS 0.9 NEUTROPHILS ABS 3.3 1.9 - 7.4 K/uL LYMPHOCYTES ABS 2.4 1.0 - 3.9 K/uL MONOCYTES ABS 0.9 (*) 0 - 0.8 K/uL EOSINOPHILS ABS 0.5 0 - 0.5 K/uL BASOPHILS ABS 0.1 0 - 0.1 K/uL POCT GLUCOSE Collection Time 10/03/13 5:15 AM Component Value Range GLUCOSE,POC SCREEN 101 (*) 65 - 99 mg/dL POCT GLUCOSE Collection Time 10/03/13 11:36 AM Component Value Range GLUCOSE,POC SCREEN 115 (*) 65 - 99 mg/dL DIGOXIN LEVEL Collection Time 10/03/13 3:10 PM Component Value Range DATE OF LAST DOSE NOT GIVEN TIME OF LAST DOSE NOT GIVEN DIGOXIN LEVEL 1.4 0.90 - 2.00 ng/mL IMAGING: XR CHEST 2 VIEW FRONTAL AND LATERAL 09/30/2013 8:07 PM INDICATION: Shortness of breath COMPARISON: 09/10/13 TECHNIQUE: Two view chest, PA and lateral views FINDINGS: There is mild enlargement of the cardiac silhouette which is improved in appearan ce from prior study. Previously noted interstitial edema is resolved. There is no mediastina l widening or shift. There is no pneumothorax. No pleural fluid is present. Moderate osteope ana and mild degenerative disc disease of the thoracic spine is present. The lungs are clear with no consolidation. A band of atelectasis is demonstrated along the right middle lobe. T here are no pulmonary nodules. There are no acute rib fractures. IMPRESSION: 1. There is atelectasis versus a developing process of the right middle lobe. 09/15/13 1. A limited 2-dimensional transthoracic echocardiogram with limited spectral and color fl ow Doppler was performed. 2. This was a technically adequate study. 3. Overall left ventricular systolic function is severely impaired with, an EF < 20%. Patient's old records and labs were reviewed in detail and summarized. PROBLEM LIST Principal Problem: *Acute kidney injury Active Problems: Essential hypertension, benign DM (diabetes mellitus) SOB (shortness of breath) CHF (congestive heart failure) CAD (coronary artery disease) Hypotension, unspecified Cardiomyopathy Urinary tract infection, site not specified ASSESSMENT & PLAN MADELEINE SLOWLY IMPROVING LIKELY secondary to Renal hypoperfusion IN THE SETTING OF LOW BP/ DIURETICS TORSEMIDE, RAMYA CTONE/ HEMODYNAMIC EFFECT OF LISINOPRIL CONTRIBUTING/ bactrim 1/2 tab daily for uti prophyla xis Ruled out HYDRONEPHROSIS IV FLUIDS GENTLE NS 50 MLS/HR WITH CLOSE WATCH FOR CARDIOPULMONARY STATUS KEEP MAP GREATER THAN 65 MM HG OPTIMIZE CARDIAC MEDS PER HOSPITALIST / CARDIOLOGY TEAM GIVEN SEVERE CMP Hold Diuretics/ TORIN-I STOPPED BACTRIM Urine studies reviewed Strict I & O, Daily weights Daily RFP Renal diet AVOID NSAIDS/ JEONG-2 INHIBITORS AVOID NEPHROTOXIC MEDS INCLUDING AMINOGLYCOSIDES/ IV CONTRAST Dose all meds for crcl less than 25 mls/min Lab Results Component Value Date BUN 31* 10/03/2013 BUN 50* 10/02/2013 BUN 66* 10/01/2013 BUN 41* 09/22/2013 BUN 20 09/17/2013 CREATININE 1.80* 10/03/2013 CREATININE 2.27* 10/02/2013 CREATININE 3.00* 10/01/2013 CREATININE 1.90* 09/22/2013 CREATININE 0.91 09/17/2013 Hypotension IMPROVED ON hold antihypertensives FOR NOW KEEP MAP GREATER THAN 65 MM HG BP Readings from Last 3 Encounters: 10/03/13 117/57 09/17/13 97/52 DM-2 OPTIMUM GLYCEMIC CONTROL CMP SEVERE EF < 20% PER ECHO 09/15/13 OPTIMIZE CARDIAC MEDS PER HOSPITALIST / CARDIOLOGY TEAM Coreg was started Urinary tract infection IV ceftriaxone CASE DISCUSSED IN DETAIL WITH PATIENT/ FAMILY/HOSPITALIST, ANSWERS ALL QUESTIONS IN DETAIL, VERBALIZES UNDERSTANDING GODFREY SHIPMAN MD 10/03/2013 CANDICE VALDES onversion Transactio n, Provider Unknown - 10/03/2013 6:16 PM PDT Progress Notes by Jana Bae RN at 10/03/131815 Author: Jana Bae RN Service: (none) Author Type: Registered Nurse Filed: 10/03/131816 Date of Service: 10/03/131815 Status: Signed Buttermaker Helper: Jana Bae RN (Registered Nurse) Pt resting in bed, VSS throughout the day. Talked to pt about Dig level coming back at 1.4. Pt has had no complaints since RN took over at 1130 medication Per MAR. No acute changes. Phong Bae RN onver yajaira Transaction, Provider Unknown - 10/03/2013 3:03 PM PDT Progress Notes by Jana Bae RN at 10/03/13 1503 Author: Jana Bae RN Service: (none) Author Type: Registered Nurse Filed: 10/03/13 1505 Date of Service: 10/03/13 150 Status: Signed Buttermaker Helper: Jana Bae RN (Registered Nurse) Talked to Dr. Lobo's office about pt DIG level, and low magnesium levels prior to admit, Ca lled Dr. Sparks due to no Dig level not being drawn since admit, and dig restarted 10/02 Dig lev el ordered for now and Dig stopped. PT resting in bed VSS visiting with family at this time, pt encouraged to call for any needs or concerns. Jana Bae RN Phong Leal MD - 10/03/2013 8:35 AM PDTFormatting of this note might be different from the or iginal. Progress Notes by Gurjit Sparks MD at 10/03/1353 Author: Gurjit Sparks MD Service: Hospitalist Author Type: Physician Filed: 10/03/13 1115 Date of Service: 10/03/13834 Status: Signed Buttermaker Helper: Gurjit Sparks MD (Physician) Formerly [facility] Service: Hospitalist Progress Note Hospital Day: LOS: 3 days Chief Complaint: Dizziness Brief summary: 83-year-old female with past medical history of recently diagnosed ischemic cardiomyopathy with ejection fraction less than 20% following up with Dr. Lobo. Patient was being managed medically. She presented to the emergency room with low blood pressures and acute renal failure. Dr. Shipman from nephrology has been following the patient in the [facility]. Patient's blood pressure medications were held and she was started on gentle hydration. Patient is being restarted on her medications slowly one at a time. Her kidney functions a re improving with IV fluids. She was initially restarted on Coreg. The next day she was st arted on digoxin and today the plan is to restart spironolactone. She can be discharged whe n she is she has been restarted on all of her medications including the diuretics and when h er kidney functions are normal. I expect patient's diuretic dose may need to be changed at the time of discharge SUBJECTIVE Events Overnight: Patient continues to improve. Has some dry cough. She denies any chest pain or shortness of breath. No fevers or no chills. No headache, abdominal pain, nausea, vomiting. Scheduled Medications aspirin EC 81 mg Oral Daily with breakfast budesonide 2 puff Inhalation BID carvedilol 6.25 mg Oral BID WC cefTRIAXone 1 g Intravenous Q24H digoxin 0.125 mg Oral Daily heparin (porcine) 5,000 Units Subcutaneous Q8H insulin aspart 0-10 Units Subcutaneous TID AC insulin aspart 0-5 Units Subcutaneous Nightly ipratropium-albuterol 3 mL Nebulization Q6H levothyroxine 75 mcg Oral QAM AC magnesium sulfate 2 g Intravenous Once omeprazole 20 mg Oral QAM AC rosuvastatin 20 mg Oral Nightly spironolactone 25 mg Oral Daily Continuous Infusions dextrose sodium chloride 50 mL/hr at 10/03/13 0135 PRN Medications acetaminophen, acetaminophen, dextrose, dextrose, dextrose, glucagon, glucagon, ondansetron , ondansetron, polyethylene glycol, zolpidem OBJECTIVE Vital Signs: BP 130/61 | Pulse 68 | Temp 98.3 F (36.8 C) (Oral) | Resp 16 | Ht 1.676 m (5' 6") | Wt 69.854 kg (154 lb) | BMI 24.87 kg/m2 | SpO2 93% | ? No Filed Vitals: 10/03/13 0421 10/03/13 0519 10/03/13 0720 10/03/13 0722 BP: 103/54 130/61 Pulse: 65 66 68 Temp: 97.9 F (36.6 C) 98.3 F (36.8 C) TempSrc: Oral Oral Resp: 16 18 16 Height: Weight: SpO2: 96% 96% 88% 93% Intake/Output Summary (Last 24 hours) at 10/03/13 0835 Last data filed at 10/03/13 0629 Gross per 24 hour Intake 2409 ml Output 1926 ml Net 483 ml General: Comfortable HEENT: No thrush. Neck: No JVD, Trachea midline. Psych: Alert and oriented x 3. Calm, cooperative. Cardiovascular: Soft heart sounds - from what I could hear - Regular rate and rhythm, no mu rmurs, no palpable thrills. Normal PMI. Respiratory: Clear to auscultation, no wheezing or crackles, breathing non labored. Chest e xpansion equal on both sides. No use of accessory muscles. Gastrointestinal: Soft, non-tender, non-distended, positive bowel sounds. No HSM. Musculoskeletal: No edema in bilateral lower extremities. No joint swelling. Skin: Warm and dry. Neurological: Higher functions grossly normal. Non focal. Motor and sensory grossly intact. Normal co-ordination. DATA Lab 10/03/13 0410 10/02/13 0440 10/01/13 0545 WBC 7.1 7.0 7.5 HGB 12.1 12.4 13.1 HCT 36.3 37.3 39.5 PLT 140* 153 165 NEUTOPHILPCT 46.5 45.8 46.7 MONOPCT 12.6 13.3 12.8 Lab 10/03/130 10/02/13 0440 10/01/13 0545 NA 141 138 136 K 4.3 4.2 4.4 CL 112* 111* 107 CO2 23 22* 20* BUN 31* 50* 66* CREATININE 1.80* 2.27* 3.00* CALCIUM -- -- -- PROT -- -- -- BILITOT -- -- -- ALKPHOS -- -- -- ALT -- -- -- AST -- -- -- GLUCOSE -- -- -- Phosphorus: Lab Results Component Value Date PHOS 3.0 10/03/2013 No components found with this basename: LABALBU:3 Lab 10/03/130 10/02/130 10/01/13 0545 MG 1.5* 1.8 1.7 No results found for this basename: AMYLASE:3 in the last 168 hours No results found for this basename: PHART:3,PO2ART:3,ZXA2ONR:3,F6WCHMBL:3,BEART:[address] 168 hours No results found for this basename: APTT:3,INR:3,PTT:3 in the last 168 hours No results found for this basename: TSH:3,T3FREE:3,FREET4:3 in the last 168 hours Lab 10/01/13 0545 09/30/13 2358 CKTOTAL -- -- TROPONINI <0.02 0.023 TROPONINT -- -- CKMBINDEX -- -- Results Procedure Component Value Units Date/Time Urine culture [[id number]] (Abnormal) Collected:10/01/1345 Specimen Information:Urine, Unspecified Source Updated:10/03/13832 Specimen Description URINE, COLLECTION NOT GIVEN SPECIAL REQUESTS REFLEX FROM [facility] CULTURE >100,000 CFU/ML CULTURE ENTEROCOCCUS FAECALIS (A) REPORT STATUS FINAL REPORT STATUS 10/03/2013 Xr Chest 2 View 09/30/2013 TAMIKO IRELAND 1930 83 years Female XR CHEST 2 VIEW FRONTAL AND LATERAL 014 8:07 PM INDICATION: Shortness of breath COMPARISON: 09/10/13 TECHNIQUE: Two view chest , PA and lateral views FINDINGS: There is mild enlargement of the cardiac silhouette which is improved in appearance from prior study. Previously noted interstitial edema is resolved. There is no mediastinal widening or shift. There is no pneumothorax. No pleural fluid is pr esent. Moderate osteopenia and mild degenerative disc disease of the thoracic spine is prese nt. The lungs are clear with no consolidation. A band of atelectasis is demonstrated along t he right middle lobe. There are no pulmonary nodules. There are no acute rib fractures. 09/30/2013 1. There is atelectasis versus a developing process of the right middle lobe. LEM LIST Principal Problem: *Acute kidney injury Active Problems: Essential hypertension, benign DM (diabetes mellitus) SOB (shortness of breath) CHF (congestive heart failure) CAD (coronary artery disease) Hypotension, unspecified Cardiomyopathy Urinary tract infection, site not specified ASSESSMENT/ PLAN Acute kidney injury: Improving. Furosemide, and lisinopril currently held. Appreciate fernando mmendations by nephrology. Discussed case with Dr. Shipman today. Plan to start Aldactone tod ay. Currently on normal saline at 50 cc per hour. Renal ultrasound does not show hydronephro sis. Congestive heart failure: Patient has severe systolic congestive heart failure, likely seco ndary to ischemic causes. Coreg , and digoxin restarted. Today we will start Aldactone. Patient denies any chest pain or shortness of breath. Patient has been deemed not a suitab le candidate for any revascularization. Diabetes mellitus. We will continue with insulin sliding scale. Metformin has been held Hypotension. Resolved. Asthma: continue home medications. Hypothyroidism. Continue Synthroid Urinary tract infection: Abnormal urinalysis at the time of admission. We will continue pa tient on IV ceftriaxone and follow-up urine cultures DVT prophylaxis: [facility] [place] Ordered labs for tomorrow. Code Status: Full Code Gurjit Sparks MD 10/03/20138:35 AM onversio n Transaction, Provider Unknown - 10/03/2013 5:00 AM PDTFormatting of this note might be di fferent from the original. Nurse Progress Note by Baylee Boss RN at 10/03/13 0500 Author: Baylee Boss RN Service: (none) Author Type: Registered Nurse Filed: 10/03/13 0501 Date of Service: 10/03/13 0500 Status: Signed Buttermaker Helper: Baylee Boss RN (Registered Nurse) Pt has been sleeping throughout shift. Hourly rounding done & uneventful. VSS; Afebrile; De nies SOB/Pain. Will continue to monitor. Baylee Boss 10/03/2013 5:01 AM Godfrey Taylor - 10/02/2013 11:23 AM PDTFormatting of this note might be different from the or iginal. Progress Notes by Godfrey Shipman MD at 10/02/13 1123 Author: Godfrey Shipman MD Service: Nephrology Author Type: Physician Filed: 10/18/13 1310 Date of Service: 10/02/13 1123 Status: Signed Buttermaker Helper: Godfrey Shipman MD (Physician) Formerly [facility] Service: NEPHROLOGY PROGRESS Note Tamiko Ireland 83 y.o. [id number] female [facility] Day: LOS: 2 days The patient is a 83 y.o. female with significant past medical history of Asthma, Hypertensi on, Hyperlipidemia, Diabetes mellitus-2, CAD, severe CMP who admitted with dizziness and lig htheadedness, ARF . Her creatinine was found to be 3.5 from 0.9 on discharge. On the , she had labs done as an outpatient it was 1.9. Nephrology consulted for evaluation and management of ARF Lab Results Component Value Date BUN 50* 10/02/2013 BUN 66* 10/01/2013 BUN 41* 09/22/2013 BUN 20 09/17/2013 BUN 16 09/16/2013 CREATININE 2.27* 10/02/2013 CREATININE 3.00* 10/01/2013 CREATININE 1.90* 09/22/2013 CREATININE 0.91 09/17/2013 CREATININE 0.95 09/16/2013 ONSET ACUTE severity SEVERE Associated with fluid electrolyte acid base imbalances RF: LOW BP/ DIURETICS TORSEMIDE, ALDACTONE/ HEMODYNAMIC EFFECT OF LISINOPRIL CONTRIBUTING/ bactrim 1/2 tab daily for uti prophylaxis Pateint seen and examined Says feel weak, +VE COUGH, IMPROVING BP Denies cp, sob, nausea, vomiting, diarrhea, fever, headache, rash Past Medical History Diagnosis Date Hypertension Asthma CHF (congestive heart failure) Hyperlipidemia Diabetes mellitus, type 2 Thyroid disease CAD (coronary artery disease) 09/13/2013 Acute kidney injury 09/30/2013 Past Surgical History Procedure Date Hysterectomy partial Bladder suspension Cataract extraction Prescriptions prior to admission Medication Sig Dispense Refill aspirin EC 81 MG EC tablet Take 81 mg by mouth daily with breakfast. budesonide (PULMICORT) 180 MCG/ACT inhaler Inhale 2 puffs into the lungs 2 (two) times daily. carvedilol (COREG) 6.25 MG tablet Take 1 tablet by mouth 2 (two) times daily with meals . 60 tablet 11 Cetirizine HCl 10 MG CAPS Take by mouth. Cholecalciferol 1000 UNITS capsule Take 1,000 Units by mouth daily. digoxin (LANOXIN) 0.125 MG tablet Take 1 tablet by mouth daily. 30 tablet 11 FLUTICASONE PROPIONATE, NASAL, NA by Nasal route. GUAIFENESIN 1200 PO Take by mouth. levothyroxine (SYNTHROID) 75 MCG tablet Take 75 mcg by mouth every morning before break fast. lisinopril (ZESTRIL) 40 MG tablet Take 1 tablet by mouth daily. 30 tablet 11 metFORMIN (GLUCOPHAGE) 500 MG tablet Take 500 mg by mouth daily. omeprazole (PRILOSEC) 20 MG capsule Take 20 mg by mouth every morning before breakfast. rosuvastatin (CRESTOR) 20 MG tablet Take 1 tablet by mouth nightly. 30 tablet 6 spironolactone (ALDACTONE) 25 MG tablet Take 25 mg by mouth daily. Sulfamethoxazole-Trimethoprim (BACTRIM PO) Take by mouth daily. Takes 1/2 tablet of un known dose daily. torsemide (DEMADEX) 20 MG tablet Take 1 tablet by mouth daily. 30 tablet 11 albuterol (PROVENTIL HFA;VENTOLIN HFA) 108 (90 BASE) MCG/ACT inhaler Inhale 2 puffs int o the lungs every 4 (four) hours as needed for Wheezing. 18 g 3 Allergies Allergen Reactions Lasix (Furosemide) Other (See Comments) Joint pain Latex Rash History Social History Marital Status: Spouse Name: N/A Number of Children: N/A Years of Education: N/A Occupational History Not on file. Social History Main Topics Smoking status: Former Smoker Smokeless tobacco: Never Used Alcohol Use: No Drug Use: No Sexually Active: Other Topics Concern Not on file Social History Narrative No narrative on file Scheduled Medications aspirin EC 81 mg Oral Daily with breakfast budesonide 2 puff Inhalation BID carvedilol 6.25 mg Oral BID WC cefTRIAXone 1 g Intravenous Q24H digoxin 0.125 mg Oral Daily heparin (porcine) 5,000 Units Subcutaneous Q8H insulin aspart 0-10 Units Subcutaneous TID AC insulin aspart 0-5 Units Subcutaneous Nightly ipratropium-albuterol 3 mL Nebulization Q6H levothyroxine 75 mcg Oral QAM AC omeprazole 20 mg Oral QAM AC rosuvastatin 20 mg Oral Nightly Continuous Infusions dextrose sodium chloride 50 mL/hr at 10/02/13 0407 PRN Medications acetaminophen, acetaminophen, dextrose, dextrose, dextrose, glucagon, glucagon, ondansetron , ondansetron, polyethylene glycol, zolpidem Allergy: Allergies Allergen Reactions Lasix (Furosemide) Other (See Comments) Joint pain Latex Rash OBJECTIVE Vital Signs: BP 107/51 | Pulse 72 | Temp 97.5 F (36.4 C) (Oral) | Resp 16 | Ht 1.676 m (5' 6") | Wt 64.8 kg (142 lb 13.7 oz) | BMI 23.07 kg/m2 | SpO2 95% | ? No I&O Detailed Table: I/O last 3 completed shifts: In: 3388 [P.O.:1900; I.V.:1489] Out: 2049 [Urine:2049] Weight change: -0.972 kg (-2 lb 2.3 oz) Examination: APPEARANCE: The patient is a pleasant sitting in no apparent distress. VITALS: Reviewed as listed. HEAD: NC/AT. EYES: Non-icteric sclera. ENT: Buccal mucosa is MOIST NECK: Supple. No raised JVD LUNGS: Clear to auscultation bilaterally. HEART: S1, S2, no pericardial rub noted. ABDOMEN: Full, soft, no tenderness. Bowel sounds are present. EXTREMITIES: no pedal edema noted. SKIN: Warm to touch. No rash or ecchymosis noted. NEUROLOGIC: No gross focal motor deficit noted. PSYCH: The patient is alert and oriented x 3, mood and affect looks ok BACK: no CVA tenderness noted LABS: reviewed from community health RECORDS Recent Results (from the past 24 hour(s)) POCT GLUCOSE Collection Time 10/01/13 11:57 AM Component Value Range GLUCOSE,POC SCREEN 123 (*) 65 - 99 mg/dL POCT GLUCOSE Collection Time 10/01/13 4:06 PM Component Value Range GLUCOSE,POC SCREEN 161 (*) 65 - 99 mg/dL POCT GLUCOSE Collection Time 10/01/13 9:08 PM Component Value Range GLUCOSE,POC SCREEN 91 65 - 99 mg/dL MAGNESIUM Collection Time 10/02/13 4:40 AM Component Value Range MAGNESIUM 1.8 1.7 - 2.4 mg/dL PHOSPHOROUS Collection Time 10/02/13 4:40 AM Component Value Range PHOSPHORUS 3.7 2.3 - 4.8 mg/dL BASIC METABOLIC PANEL Collection Time 10/02/13 4:40 AM Component Value Range SODIUM 138 135 - 143 mmol/L POTASSIUM 4.2 3.5 - 4.9 mmol/L CHLORIDE 111 (*) 99 - 109 mmol/L CO2 22 (*) 23 - 32 mmol/L ANION GAP AGAP 9 5 - 20 mmol/L GLUCOSE 101 (*) 65 - 99 mg/dL BUN 50 (*) 8 - 25 mg/dL CREATININE 2.27 (*) 0.50 - 1.00 mg/dL BUN/CREAT 22 CALCIUM 10.1 8.5 - 10.2 mg/dL EGFR 22 (*) >60 mL/min/1.73m2 CBC W/AUTO DIFF (REFLEX TO MANUAL) Collection Time 10/02/13 4:40 AM Component Value Range WBC 7.0 3.8 - 11.0 K/uL RBC 3.87 3.70 - 5.10 M/uL HGB 12.4 11.3 - 15.5 g/dL HCT 37.3 34.0 - 46.0 % MCV 96.4 80.0 - 100.0 fl MCH 32.1 27.0 - 34.0 pg MCHC 33.3 32.0 - 35.5 g/dL RDW SD 44.6 37 - 53 fl PLT 153 150 - 400 K/uL MPV 8.6 DIFF TYPE AUTOMATED NEUTROPHILS 45.8 LYMPHOCYTES 34.8 MONOCYTES 13.3 EOSINOPHILS 5.1 BASOPHILS 1.0 NEUTROPHILS ABS 3.2 1.9 - 7.4 K/uL LYMPHOCYTES ABS 2.4 1.0 - 3.9 K/uL MONOCYTES ABS 0.9 (*) 0 - 0.8 K/uL EOSINOPHILS ABS 0.4 0 - 0.5 K/uL BASOPHILS ABS 0.1 0 - 0.1 K/uL POCT GLUCOSE Collection Time 10/02/13 4:50 AM Component Value Range GLUCOSE,POC SCREEN 101 (*) 65 - 99 mg/dL IMAGING: XR CHEST 2 VIEW FRONTAL AND LATERAL 09/30/2013 8:07 PM INDICATION: Shortness of breath COMPARISON: 09/10/13 TECHNIQUE: Two view chest, PA and lateral views FINDINGS: There is mild enlargement of the cardiac silhouette which is improved in appearan ce from prior study. Previously noted interstitial edema is resolved. There is no mediastina l widening or shift. There is no pneumothorax. No pleural fluid is present. Moderate osteope ana and mild degenerative disc disease of the thoracic spine is present. The lungs are clear with no consolidation. A band of atelectasis is demonstrated along the right middle lobe. T here are no pulmonary nodules. There are no acute rib fractures. IMPRESSION: 1. There is atelectasis versus a developing process of the right middle lobe. 09/15/13 1. A limited 2-dimensional transthoracic echocardiogram with limited spectral and color fl ow Doppler was performed. 2. This was a technically adequate study. 3. Overall left ventricular systolic function is severely impaired with, an EF < 20%. Patient's old records and labs were reviewed in detail and summarized. PROBLEM LIST Principal Problem: *Acute kidney injury Active Problems: Essential hypertension, benign DM (diabetes mellitus) SOB (shortness of breath) CHF (congestive heart failure) CAD (coronary artery disease) Hypotension, unspecified Cardiomyopathy Urinary tract infection, site not specified ASSESSMENT & PLAN MADELEINE SLOWLY IMPROVING LIKELY secondary to Renal hypoperfusion IN THE SETTING OF LOW BP/ DIURETICS TORSEMIDE, RAMYA CTONE/ HEMODYNAMIC EFFECT OF LISINOPRIL CONTRIBUTING/ bactrim 1/2 tab daily for uti prophyla xis Ruled out HYDRONEPHROSIS IV FLUIDS GENTLE NS 50 MLS/HR WITH CLOSE WATCH FOR CARDIOPULMONARY STATUS KEEP MAP GREATER THAN 65 MM HG OPTIMIZE CARDIAC MEDS PER HOSPITALIST / CARDIOLOGY TEAM GIVEN SEVERE CMP Hold Diuretics/ TORIN-I STOPPED BACTRIM Urine studies reviewed Strict I & O, Daily weights Daily RFP Renal diet AVOID NSAIDS/ JEONG-2 INHIBITORS AVOID NEPHROTOXIC MEDS INCLUDING AMINOGLYCOSIDES/ IV CONTRAST Assess daily for need for hd Dose all meds for crcl less than 15 mls/min Lab Results Component Value Date BUN 50* 10/02/2013 BUN 66* 10/01/2013 BUN 41* 09/22/2013 BUN 20 09/17/2013 BUN 16 09/16/2013 CREATININE 2.27* 10/02/2013 CREATININE 3.00* 10/01/2013 CREATININE 1.90* 09/22/2013 CREATININE 0.91 09/17/2013 CREATININE 0.95 09/16/2013 Hypotension IMPROVING ON hold antihypertensives FOR NOW KEEP MAP GREATER THAN 65 MM HG BP Readings from Last 3 Encounters: 10/02/13 107/51 09/17/13 97/52 DM-2 OPTIMUM GLYCEMIC CONTROL CMP SEVERE EF < 20% PER ECHO 09/15/13 OPTIMIZE CARDIAC MEDS PER HOSPITALIST / CARDIOLOGY TEAM Coreg was started yesterday Urinary tract infection IV ceftriaxone CASE DISCUSSED IN DETAIL WITH PATIENT/ FAMILY/HOSPITALIST, ANSWERS ALL QUESTIONS IN DETAIL, VERBALIZES UNDERSTANDING GODFREY SHIPMAN MD 10/02/2013 CANDICE VALDES Gurjit Leal MD - 10/02/2013 9:32 AM PDT Progress Notes by Gurjit Sparks MD at 10/02/13 0932 Author: Gurjit Sparks MD Service: Hospitalist Author Type: Physician Filed: 10/02/13 0935 Date of Service: 10/02/13931 Status: Signed Buttermaker Helper: Gurjit Sparks MD (Physician) Formerly [facility] Service: Hospitalist Progress Note Hospital Day: LOS: 2 days Chief Complaint: Dizziness SUBJECTIVE Events Overnight: Kidney function is better today. Has some dry cough. She denies any chest pain or shortnes s of breath. No fevers or no chills. No headache, abdominal pain, nausea, vomiting. Scheduled Medications aspirin EC 81 mg Oral Daily with breakfast budesonide 2 puff Inhalation BID carvedilol 6.25 mg Oral BID WC cefTRIAXone 1 g Intravenous Q24H digoxin 0.125 mg Oral Daily heparin (porcine) 5,000 Units Subcutaneous Q8H insulin aspart 0-10 Units Subcutaneous TID AC insulin aspart 0-5 Units Subcutaneous Nightly ipratropium-albuterol 3 mL Nebulization Q6H levothyroxine 75 mcg Oral QAM AC omeprazole 20 mg Oral QAM AC rosuvastatin 20 mg Oral Nightly Continuous Infusions dextrose sodium chloride 50 mL/hr at 10/02/13 0407 PRN Medications acetaminophen, acetaminophen, dextrose, dextrose, dextrose, glucagon, glucagon, ondansetron , ondansetron, polyethylene glycol, zolpidem OBJECTIVE Vital Signs: BP 107/51 | Pulse 73 | Temp 97.5 F (36.4 C) (Oral) | Resp 18 | Ht 1.676 m (5' 6") | Wt 64.8 kg (142 lb 13.7 oz) | BMI 23.07 kg/m2 | SpO2 94% | ? No Filed Vitals: 10/02/13 0402 10/02/13 0535 10/02/13 0809 10/02/13 0810 BP: 95/55 107/51 Pulse: 67 68 73 Temp: 97.8 F (36.6 C) 97.5 F (36.4 C) TempSrc: Oral Oral Resp: 18 18 18 Height: Weight: SpO2: 92% 94% 90% 94% Intake/Output Summary (Last 24 hours) at 10/02/13 0932 Last data filed at 10/02/13 0548 Gross per 24 hour Intake 2014 ml Output 1325 ml Net 689 ml General: Comfortable HEENT: No thrush. Neck: No JVD, Trachea midline. Psych: Alert and oriented x 3. Calm, cooperative. Cardiovascular: Soft heart sounds - from what I could hear - Regular rate and rhythm, no mu rmurs, no palpable thrills. Normal PMI. Respiratory: Clear to auscultation, no wheezing or crackles, breathing non labored. Chest e xpansion equal on both sides. No use of accessory muscles. Gastrointestinal: Soft, non-tender, non-distended, positive bowel sounds. No HSM. Musculoskeletal: No edema in bilateral lower extremities. No joint swelling. Skin: Warm and dry. Neurological: Higher functions grossly normal. Non focal. Motor and sensory grossly intact. Normal co-ordination. DATA Lab 10/02/13 0440 10/01/13 0545 WBC 7.0 7.5 HGB 12.4 13.1 HCT 37.3 39.5 PLT 153 165 NEUTOPHILPCT 45.8 46.7 MONOPCT 13.3 12.8 Lab 10/02/13 0440 10/01/13 0545 NA 138 136 K 4.2 4.4 CL 111* 107 CO2 22* 20* BUN 50* 66* CREATININE 2.27* 3.00* CALCIUM -- -- PROT -- -- BILITOT -- -- ALKPHOS -- -- ALT -- -- AST -- -- GLUCOSE -- -- Phosphorus: Lab Results Component Value Date PHOS 3.7 10/02/2013 No components found with this basename: LABALBU:3 Lab 10/02/13 0440 10/01/13 0545 MG 1.8 1.7 No results found for this basename: AMYLASE:3 in the last 168 hours No results found for this basename: PHART:3,PO2ART:3,TSB2MJZ:3,M6NYKMCH:3,BEART:[address] 168 hours No results found for this basename: APTT:3,INR:3,PTT:3 in the last 168 hours No results found for this basename: TSH:3,T3FREE:3,FREET4:3 in the last 168 hours Lab 10/01/13 0545 09/30/13 2358 CKTOTAL -- -- TROPONINI <0.02 0.023 TROPONINT -- -- CKMBINDEX -- -- Results Procedure Component Value Units Date/Time Urine culture [[id number]] Collected:10/01/13 0845 Specimen Information:Urine, Unspecified Source Updated:10/01/13 1034 Xr Chest 2 View 09/30/2013 TAMIKO IRELAND 1930 83 years Female XR CHEST 2 VIEW FRONTAL AND LATERAL 014 8:07 PM INDICATION: Shortness of breath COMPARISON: 09/10/13 TECHNIQUE: Two view chest , PA and lateral views FINDINGS: There is mild enlargement of the cardiac silhouette which is improved in appearance from prior study. Previously noted interstitial edema is resolved. There is no mediastinal widening or shift. There is no pneumothorax. No pleural fluid is pr esent. Moderate osteopenia and mild degenerative disc disease of the thoracic spine is prese nt. The lungs are clear with no consolidation. A band of atelectasis is demonstrated along t he right middle lobe. There are no pulmonary nodules. There are no acute rib fractures. 09/30/2013 1. There is atelectasis versus a developing process of the right middle lobe. LEM LIST Principal Problem: *Acute kidney injury Active Problems: Essential hypertension, benign DM (diabetes mellitus) SOB (shortness of breath) CHF (congestive heart failure) CAD (coronary artery disease) Hypotension, unspecified Cardiomyopathy Urinary tract infection, site not specified ASSESSMENT/ PLAN Acute kidney injury: Improving. Furosemide, spironolactone and lisinopril currently held. Appreciate recommendations by nephrology. Currently on normal saline at 50 cc per hour. Di uretics will be restarted when okay with nephrology. Renal ultrasound does not show hydrone phrosis. Congestive heart failure: Patient has severe systolic congestive heart failure, likely seco ndary to ischemic causes. Coreg was started yesterday. Today we will start digoxin Patient denies any chest pain or shortness of breath. Patient has been deemed not a suitab le candidate for any revascularization. Diabetes mellitus. We will continue with insulin sliding scale. Metformin has been held Hypotension. Resolved. Asthma: continue home medications. Hypothyroidism. Continue Synthroid Urinary tract infection: Abnormal urinalysis at the time of admission. We will start patie nt on IV ceftriaxone and follow-up urine cultures DVT prophylaxis: [facility] [place] Ordered labs for tomorrow. Code Status: Full Code Gurjit Sparks MD 10/02/20139:32 AM onversio n Transaction, Provider Unknown - 10/02/2013 5:20 AM PDTFormatting of this note might be di fferent from the original. Nurse Progress Note by Baylee Boss RN at 10/02/13 9652 Author: Baylee Boss RN Service: (none) Author Type: Registered Nurse Filed: 10/02/13 0522 Date of Service: 10/02/13 0520 Status: Signed Buttermaker Helper: Baylee Boss, RN (Registered Nurse) Pt has been sleeping throughout shift. Hourly rounding done & uneventful. VSS; Afebrile; De nies SOB/Pain. Will continue to monitor. Baylee Boss 10/02/2013 5:21 AM Godfrey Taylor - 10/01/2013 12:42 PM PDTFormatting of this note might be different from the or iginal. Progress Notes by Godfrey Shipman MD at 10/01/13 1242 Author: Godfrey Shipman MD Service: Nephrology Author Type: Physician Filed: 10/18/13 8856 Date of Service: 10/01/13 1242 Status: Signed Buttermaker Helper: Godfrey Shipman MD (Physician) Formerly [facility] Service: NEPHROLOGY progress Note Tamiko Ireland 83 y.o. [id number] female [facility] Day: LOS: 1 day The patient is a 83 y.o. female with significant past medical history of Asthma, Hypertensi on, Hyperlipidemia, Diabetes mellitus-2, CAD, severe CMP who admitted with dizziness and lig htheadedness, ARF . Her creatinine was found to be 3.5 from 0.9 on discharge. On the , she had labs done as an outpatient it was 1.9. Nephrology consulted for evaluation and management of ARF Lab Results Component Value Date BUN 66* 10/01/2013 BUN 41* 09/22/2013 BUN 20 09/17/2013 BUN 16 09/16/2013 BUN 17 09/15/2013 CREATININE 3.00* 10/01/2013 CREATININE 1.90* 09/22/2013 CREATININE 0.91 09/17/2013 CREATININE 0.95 09/16/2013 CREATININE 0.67 09/15/2013 ONSET ACUTE severity SEVERE Associated with fluid electrolyte acid base imbalances RF: LOW BP/ DIURETICS TORSEMIDE, ALDACTONE/ HEMODYNAMIC EFFECT OF LISINOPRIL CONTRIBUTING/ bactrim 1/2 tab daily for uti prophylaxis Pateint seen and examined Says feel weak, NO MORE DIZZINESS, IMPROVING BP Denies cp, sob, nausea, vomiting, diarrhea, fever, headache, rash, cough Past Medical History Diagnosis Date Hypertension Asthma CHF (congestive heart failure) Hyperlipidemia Diabetes mellitus, type 2 Thyroid disease CAD (coronary artery disease) 09/13/2013 Acute kidney injury 09/30/2013 Past Surgical History Procedure Date Hysterectomy partial Bladder suspension Cataract extraction Prescriptions prior to admission Medication Sig Dispense Refill aspirin EC 81 MG EC tablet Take 81 mg by mouth daily with breakfast. budesonide (PULMICORT) 180 MCG/ACT inhaler Inhale 2 puffs into the lungs 2 (two) times daily. carvedilol (COREG) 6.25 MG tablet Take 1 tablet by mouth 2 (two) times daily with meals . 60 tablet 11 Cetirizine HCl 10 MG CAPS Take by mouth. Cholecalciferol 1000 UNITS capsule Take 1,000 Units by mouth daily. digoxin (LANOXIN) 0.125 MG tablet Take 1 tablet by mouth daily. 30 tablet 11 FLUTICASONE PROPIONATE, NASAL, NA by Nasal route. GUAIFENESIN 1200 PO Take by mouth. levothyroxine (SYNTHROID) 75 MCG tablet Take 75 mcg by mouth every morning before break fast. lisinopril (ZESTRIL) 40 MG tablet Take 1 tablet by mouth daily. 30 tablet 11 metFORMIN (GLUCOPHAGE) 500 MG tablet Take 500 mg by mouth daily. omeprazole (PRILOSEC) 20 MG capsule Take 20 mg by mouth every morning before breakfast. rosuvastatin (CRESTOR) 20 MG tablet Take 1 tablet by mouth nightly. 30 tablet 6 spironolactone (ALDACTONE) 25 MG tablet Take 25 mg by mouth daily. Sulfamethoxazole-Trimethoprim (BACTRIM PO) Take by mouth daily. Takes 1/2 tablet of un known dose daily. torsemide (DEMADEX) 20 MG tablet Take 1 tablet by mouth daily. 30 tablet 11 albuterol (PROVENTIL HFA;VENTOLIN HFA) 108 (90 BASE) MCG/ACT inhaler Inhale 2 puffs int o the lungs every 4 (four) hours as needed for Wheezing. 18 g 3 Allergies Allergen Reactions Lasix (Furosemide) Other (See Comments) Joint pain Latex Rash History Social History Marital Status: Spouse Name: N/A Number of Children: N/A Years of Education: N/A Occupational History Not on file. Social History Main Topics Smoking status: Former Smoker Smokeless tobacco: Never Used Alcohol Use: No Drug Use: No Sexually Active: Other Topics Concern Not on file Social History Narrative No narrative on file Scheduled Medications aspirin EC 81 mg Oral Daily with breakfast budesonide 2 puff Inhalation BID carvedilol 6.25 mg Oral BID WC heparin (porcine) 5,000 Units Subcutaneous Q8H insulin aspart 0-10 Units Subcutaneous TID AC insulin aspart 0-5 Units Subcutaneous Nightly ipratropium-albuterol 3 mL Nebulization Q6H levothyroxine 75 mcg Oral QAM AC omeprazole 20 mg Oral QAM AC rosuvastatin 20 mg Oral Nightly Continuous Infusions dextrose sodium chloride 50 mL/hr (09/30/136) [DISCONTINUED] sodium chloride PRN Medications acetaminophen, acetaminophen, dextrose, dextrose, dextrose, glucagon, glucagon, ondansetron , ondansetron, polyethylene glycol, zolpidem Allergy: Allergies Allergen Reactions Lasix (Furosemide) Other (See Comments) Joint pain Latex Rash OBJECTIVE Vital Signs: BP 101/50 | Pulse 68 | Temp 97.7 F (36.5 C) (Oral) | Resp 18 | Ht 1.676 m (5' 6") | Wt 65.772 kg (145 lb) | BMI 23.41 kg/m2 | SpO2 96% | ? No I&O Detailed Table: I/O last 3 completed shifts: In: 1375 [P.O.:450; I.V.:925] Out: 725 [Urine:725] Weight change: Examination: APPEARANCE: The patient is a pleasant sitting in no apparent distress. VITALS: Reviewed as listed. HEAD: NC/AT. EYES: Non-icteric sclera. ENT: Buccal mucosa is DRY. NECK: Supple. No raised JVD LUNGS: Clear to auscultation bilaterally. HEART: S1, S2, no pericardial rub noted. ABDOMEN: Full, soft, no tenderness. Bowel sounds are present. EXTREMITIES: no pedal edema noted. SKIN: Warm to touch. No rash or ecchymosis noted. NEUROLOGIC: No gross focal motor deficit noted. PSYCH: The patient is alert and oriented x 3, mood and affect looks ok BACK: no CVA tenderness noted LABS: reviewed from community health RECORDS Recent Results (from the past 24 hour(s)) POCT GLUCOSE Collection Time 09/30/13 11:23 PM Component Value Range GLUCOSE,POC SCREEN 146 (*) 65 - 99 mg/dL TROPONIN I Collection Time 09/30/13 11:58 PM Component Value Range TROPONIN I 0.023 0.00 - 0.10 ng/mL POCT GLUCOSE Collection Time 10/01/13 5:18 AM Component Value Range GLUCOSE,POC SCREEN 101 (*) 65 - 99 mg/dL MAGNESIUM Collection Time 10/01/13 5:45 AM Component Value Range MAGNESIUM 1.7 1.7 - 2.4 mg/dL CBC W/AUTO DIFF (REFLEX TO MANUAL) Collection Time 10/01/13 5:45 AM Component Value Range WBC 7.5 3.8 - 11.0 K/uL RBC 4.09 3.70 - 5.10 M/uL HGB 13.1 11.3 - 15.5 g/dL HCT 39.5 34.0 - 46.0 % MCV 96.4 80.0 - 100.0 fl MCH 32.0 27.0 - 34.0 pg MCHC 33.2 32.0 - 35.5 g/dL RDW SD 45.5 37 - 53 fl PLT 165 150 - 400 K/uL MPV 8.5 DIFF TYPE AUTOMATED NEUTROPHILS 46.7 LYMPHOCYTES 34.8 MONOCYTES 12.8 EOSINOPHILS 4.5 BASOPHILS 1.2 NEUTROPHILS ABS 3.5 1.9 - 7.4 K/uL LYMPHOCYTES ABS 2.6 1.0 - 3.9 K/uL MONOCYTES ABS 1.0 (*) 0 - 0.8 K/uL EOSINOPHILS ABS 0.3 0 - 0.5 K/uL BASOPHILS ABS 0.1 0 - 0.1 K/uL BRAIN NATRIURETIC PEPTIDE Collection Time 10/01/13 5:45 AM Component Value Range BRAIN NATRIURETIC PEPTIDE 857 (*) 0 - 100 pg/mL TROPONIN I Collection Time 10/01/13 5:45 AM Component Value Range TROPONIN I <0.02 0.00 - 0.10 ng/mL RENAL FUNCTION PANEL Collection Time 10/01/13 5:45 AM Component Value Range SODIUM 136 135 - 143 mmol/L POTASSIUM 4.4 3.5 - 4.9 mmol/L CHLORIDE 107 99 - 109 mmol/L CO2 20 (*) 23 - 32 mmol/L ANION GAP AGAP 13 5 - 20 mmol/L GLUCOSE 107 (*) 65 - 99 mg/dL BUN 66 (*) 8 - 25 mg/dL CREATININE 3.00 (*) 0.50 - 1.00 mg/dL CALCIUM 9.2 8.5 - 10.2 mg/dL Albumin 3.7 3.3 - 4.8 g/dL PHOSPHORUS 4.6 2.3 - 4.8 mg/dL EGFR 16 (*) >60 mL/min/1.73m2 SODIUM, URINE, RANDOM Collection Time 10/01/13 8:44 AM Component Value Range UR SODIUM,RANDOM 50 (*) 90 - 104 mmol/L CREATININE, URINE, RANDOM Collection Time 10/01/13 8:44 AM Component Value Range UR CREAT,RANDOM 71.9 UREA NITROGEN, URINE Collection Time 10/01/13 8:45 AM Component Value Range Urea Nitrogen, 24H Ur 677 UR UREA NITRO, CALC PENDING 7 - 20 g/24h URINALYSIS W/MICROSCOPIC (REFLEX TO CULTURE) Collection Time 10/01/13 8:45 AM Component Value Range COLOR UA YELLOW CLARITY CLOUDY Specific Mather, UA 1.015 1.002 - 1.030 LEUKOCYTE ESTERASE MODERATE (*) NEGATIVE NITRITE NEGATIVE NEGATIVE UROBILINOGEN 0.2 <1.1 mg/dL PROTEIN 30 (*) NEGATIVE mg/dL PH,URINE 5.5 5.0 - 8.0 BLOOD MODERATE (*) NEGATIVE KETONES NEGATIVE NEGATIVE mg/dL BILIRUBIN NEGATIVE NEGATIVE GLUCOSE NEGATIVE NEGATIVE mg/dL WBC 26-50 0 - 5 /hpf RBC 16-25 0 - 5 /hpf EPITHELIAL 1-5 BACTERIA NONE SEEN NONE SEEN Hyaline Cast 0-2 UR UREA NITRO,RANDOM Collection Time 10/01/13 8:45 AM Component Value Range UR UREA NITRO,RANDOM 677.0 IMAGING: XR CHEST 2 VIEW FRONTAL AND LATERAL 09/30/2013 8:07 PM INDICATION: Shortness of breath COMPARISON: 09/10/13 TECHNIQUE: Two view chest, PA and lateral views FINDINGS: There is mild enlargement of the cardiac silhouette which is improved in appearan ce from prior study. Previously noted interstitial edema is resolved. There is no mediastina l widening or shift. There is no pneumothorax. No pleural fluid is present. Moderate osteope ana and mild degenerative disc disease of the thoracic spine is present. The lungs are clear with no consolidation. A band of atelectasis is demonstrated along the right middle lobe. T here are no pulmonary nodules. There are no acute rib fractures. IMPRESSION: 1. There is atelectasis versus a developing process of the right middle lobe. 09/15/13 1. A limited 2-dimensional transthoracic echocardiogram with limited spectral and color fl ow Doppler was performed. 2. This was a technically adequate study. 3. Overall left ventricular systolic function is severely impaired with, an EF < 20%. Patient's old records and labs were reviewed in detail and summarized. PROBLEM LIST Principal Problem: *Acute kidney injury Active Problems: Essential hypertension, benign DM (diabetes mellitus) SOB (shortness of breath) CHF (congestive heart failure) CAD (coronary artery disease) Hypotension, unspecified Cardiomyopathy ASSESSMENT & PLAN MADELEINE LIKELY secondary to Renal hypoperfusion IN THE SETTING OF LOW BP/ DIURETICS TORSEMIDE, RAMYA CTONE/ HEMODYNAMIC EFFECT OF LISINOPRIL CONTRIBUTING/ bactrim 1/2 tab daily for uti prophyla xis Ruled out HYDRONEPHROSIS IV FLUIDS GENTLE NS 50 MLS/HR WITH CLOSE WATCH FOR CARDIOPULMONARY STATUS KEEP MAP GREATER THAN 65 MM HG OPTIMIZE CARDIAC MEDS PER HOSPITALIST / CARDIOLOGY TEAM GIVEN SEVERE CMP Hold Diuretics/ TORIN-I STOP BACTRIM Urine studies reviewed Strict I & O, Daily weights Daily RFP Renal diet AVOID NSAIDS/ JEONG-2 INHIBITORS AVOID NEPHROTOXIC MEDS INCLUDING AMINOGLYCOSIDES/ IV CONTRAST Assess daily for need for hd Dose all meds for crcl less than 15 mls/min Lab Results Component Value Date BUN 66* 10/01/2013 BUN 41* 09/22/2013 BUN 20 09/17/2013 BUN 16 09/16/2013 BUN 17 09/15/2013 CREATININE 3.00* 10/01/2013 CREATININE 1.90* 09/22/2013 CREATININE 0.91 09/17/2013 CREATININE 0.95 09/16/2013 CREATININE 0.67 09/15/2013 Hypotension ON hold antihypertensives FOR NOW KEEP MAP GREATER THAN 65 MM HG BP Readings from Last 3 Encounters: 10/01/13 101/50 09/17/13 97/52 DM-2 OPTIMUM GLYCEMIC CONTROL CMP SEVERE EF < 20% PER ECHO 09/15/13 OPTIMIZE CARDIAC MEDS PER HOSPITALIST / CARDIOLOGY TEAM CASE DISCUSSED IN DETAIL WITH PATIENT/ FAMILY/HOSPITALIST, ANSWERS ALL QUESTIONS IN DETAIL, VERBALIZES UNDERSTANDING GODFREY SHIPMAN MD 10/01/2013 CANDICE VALDES onversion Transactio n, Provider Unknown - 10/01/2013 11:20 AM PDT Progress Notes by Dana Gamboa RPH at 10/01/131119 Author: Dana Gamboa RPH Service: (none) Author Type: Pharmacist Filed: 10/01/131119 Date of Service: 10/01/131119 Status: Signed Buttermaker Helper: Dana Gamboa RPH (Pharmacist) crcl ~ 13.5 ml/min based upon SCR of 3 Current medications do not require renal dosage adjustment. Phong Leal MD - 10/01/2013 9:14 AM PDTFormatting of this note might be different from the or iginal. Progress Notes by Gurjit Sparks MD at 10/01/13913 Author: Gurjit Sparks MD Service: Hospitalist Author Type: Physician Filed: 10/01/13921 Date of Service: 10/01/13913 Status: Signed Buttermaker Helper: Gurjit Sparks MD (Physician) Formerly [facility] Service: Hospitalist Progress Note Hospital Day: LOS: 1 day Chief Complaint: Dizziness SUBJECTIVE Events Overnight: Patient feels great. She is not having any more dizziness. Blood pressures have improved now. She denies any chest pain or shortness of breath. No fevers or no chills. No headach e, abdominal pain, nausea, vomiting. Scheduled Medications aspirin EC 81 mg Oral Daily with breakfast budesonide 2 puff Inhalation BID carvedilol 6.25 mg Oral BID WC heparin (porcine) 5,000 Units Subcutaneous Q8H insulin aspart 0-10 Units Subcutaneous TID AC insulin aspart 0-5 Units Subcutaneous Nightly ipratropium-albuterol 3 mL Nebulization Q6H levothyroxine 75 mcg Oral QAM AC omeprazole 20 mg Oral QAM AC rosuvastatin 20 mg Oral Nightly Continuous Infusions dextrose sodium chloride 50 mL/hr (09/30/132155) [DISCONTINUED] sodium chloride PRN Medications acetaminophen, acetaminophen, dextrose, dextrose, dextrose, glucagon, glucagon, ondansetron , ondansetron, polyethylene glycol, zolpidem OBJECTIVE Vital Signs: BP 117/55 | Pulse 65 | Temp 97.3 F (36.3 C) (Oral) | Resp 18 | Ht 1.676 m (5' 6") | Wt 65.772 kg (145 lb) | BMI 23.41 kg/m2 | SpO2 94% | ? No Filed Vitals: 10/01/13 0400 10/01/13 0748 10/01/13 0841 10/01/13 0851 BP: 92/53 117/55 Pulse: 65 71 65 Temp: 97.3 F (36.3 C) TempSrc: Oral Resp: 16 16 18 Height: Weight: SpO2: 93% 94% Intake/Output Summary (Last 24 hours) at 10/01/13 0914 Last data filed at 10/01/13 05 Gross per 24 hour Intake 1375 ml Output 725 ml Net 650 ml General: Comfortable HEENT: No thrush. Slightly dry mucus membrane. Neck: No JVD, Trachea midline. Psych: Alert and oriented x 3. Calm, cooperative. Cardiovascular: Soft heart sounds - from what I could hear - Regular rate and rhythm, no mu rmurs, no palpable thrills. Normal PMI. Respiratory: Clear to auscultation, no wheezing or crackles, breathing non labored. Chest e xpansion equal on both sides. No use of accessory muscles. Gastrointestinal: Soft, non-tender, non-distended, positive bowel sounds. No HSM. Musculoskeletal: No edema in bilateral lower extremities. No joint swelling. Skin: Warm and dry. Neurological: Higher functions grossly normal. Non focal. Motor and sensory grossly intact. Normal co-ordination. DATA Lab 10/01/13 0545 WBC 7.5 HGB 13.1 HCT 39.5 PLT 165 NEUTOPHILPCT 46.7 MONOPCT 12.8 Lab 10/01/13 0545 NA 136 K 4.4 CL 107 CO2 20* BUN 66* CREATININE 3.00* CALCIUM -- PROT -- BILITOT -- ALKPHOS -- ALT -- AST -- GLUCOSE -- Phosphorus: Lab Results Component Value Date PHOS 4.6 10/01/2013 No components found with this basename: LABALBU:3 Lab 10/01/13 0545 MG 1.7 No results found for this basename: AMYLASE:3 in the last 168 hours No results found for this basename: PHART:3,PO2ART:3,ZFU0SHN:3,T8GDXZUG:3,BEART:[address] 168 hours No results found for this basename: APTT:3,INR:3,PTT:3 in the last 168 hours No results found for this basename: TSH:3,T3FREE:3,FREET4:3 in the last 168 hours Lab 10/01/13 0545 09/30/13 2358 CKTOTAL -- -- TROPONINI <0.02 0.023 TROPONINT -- -- CKMBINDEX -- -- Results No Results found for the last 72 hours. Xr Chest 2 View 09/30/2013 TAMIKO IRELAND 1930 83 years Female XR CHEST 2 VIEW FRONTAL AND LATERAL 014 8:07 PM INDICATION: Shortness of breath COMPARISON: 09/10/13 TECHNIQUE: Two view chest , PA and lateral views FINDINGS: There is mild enlargement of the cardiac silhouette which is improved in appearance from prior study. Previously noted interstitial edema is resolved. There is no mediastinal widening or shift. There is no pneumothorax. No pleural fluid is pr esent. Moderate osteopenia and mild degenerative disc disease of the thoracic spine is prese nt. The lungs are clear with no consolidation. A band of atelectasis is demonstrated along t he right middle lobe. There are no pulmonary nodules. There are no acute rib fractures. 09/30/2013 1. There is atelectasis versus a developing process of the right middle lobe. LEM LIST Principal Problem: *Acute kidney injury Active Problems: Essential hypertension, benign DM (diabetes mellitus) SOB (shortness of breath) CHF (congestive heart failure) CAD (coronary artery disease) Hypotension, unspecified Cardiomyopathy ASSESSMENT/ PLAN Acute kidney injury: Appreciate recommendations by nephrology. Now, we will continue ana l saline at 50 cc per hour. Diuretics will be restarted when okay with nephrology. Renal u ltrasound is pending. Congestive heart failure: Patient has severe systolic congestive heart failure, likely seco ndary to ischemic causes. Today we will start Coreg as patient's blood pressures have been good. Continue to hold other medications. We will introduce one at a time slowly. Patient denies any chest pain or shortness of breath. Patient has been deemed not a suitable enoc date for any revascularization. Diabetes mellitus. We will continue with insulin sliding scale. Metformin has been held Hypertension. This seems to have resolved Asthma: continue home medications. Hypothyroidism. Continue Synthroid DVT prophylaxis: [facility] [place] Ordered labs for tomorrow. Code Status: Full Code Gurjit Sparks MD 10/01/20139:14 AM onversio n Transaction, Provider Unknown - 09/30/2013 8:14 PM PDTFormatting of this note might be di fferent from the original. Progress Notes by Baylee Montague RPH at 09/30/132013 Author: Baylee Montague RPH Service: (none) Author Type: Pharmacist Filed: 09/30/132013 Date of Service: 09/30/132013 Status: Signed Buttermaker Helper: Baylee Montague RPH (Pharmacist) Renal Dosing Monitoring: Tamiko Ireland 83 y.o. female Pharmacy dosing for renal function per Dr. Etienne No current SCr Plan per protocol: No renally adjusted medications currently ordered. Pharmacy will continue monitoring patient for appropriate dosing per renal function. 09/30/2013 8:13 PM Pharmacist: Baylee Montague onver yajaira Transaction, Provider Unknown - 09/30/2013 8:10 PM PDT Case Management by JAIMEE Rodriguez at 09/30/132009 Author: JAIMEE Rodriguez Service: (none) Author Type: National Sales Manager Filed: 09/30/132013 Date of Service: 09/30/132009 Status: Signed Buttermaker Helper: JAIMEE Rodriguez (National Sales Manager) 09/30/132003 Discharge Planning Evaluation Admitting Diagnosis CHF Readmission Yes-within 14 days Living Arrangements Spouse/significant other (Alfredo Ireland [phone]; cell [phone]) Type of Residence Private residence House type House-1 story Steps to enter 7 Independent with ADL's Yes Independent with Mobility Yes (recently ordered a 4WW) Home Care Services No Caregiver after Discharge No Mental Status Oriented Prior functional status Patient has adult daughters who come to help care for her and husba nd. Power of Archaeologist No Resources Transportation issues No Prescription Plan Yes Name of Pharmacy [facility] - mail order; [facility] [place] Previous home health equipment No Vascular access device No Ostomy/Drains/Appliances Yes (Zoll Vest - defibrillator) Anticipated Disposition Facility Type Assisted living/Adult family home (Return home) Met with: patient and her and discussed discharge planning, Pt is a 83 y.o., femal e who lives at home with her . Patient's PCP is: CANDICE VALDES Patient's insurance: Medicare IP-OP and [employer] Coverage concerns: None Medication coverage/concerns: Rx coverage Community resources utilized / needed: TBD Assistance in transportation: or daughter can transport Identification of any specific education / training: TBD Barriers to Discharge / Alternative housing needed: None at this time. Anticipated DCP: Return home - but concerning about steps. She says she is mostly housebou nd until she gets better except for MD appointments. "I just take one step at a time, ana frias." Ellen Marks MSW docume nted in this encounter Plan of Treatment +--------+ + + + + | Date | Type | Specialty | Care Team | Description | +--------+ + + + + | 03/09/ | Office | Cardiology | [place], | | | 2018 | Visit | | MD Lucila WIGGINS | | | | | | [place], [place] | | | | | | [address] | | | | | | | [...] [place] | | | | | | [address] | | | | | | | | +--------+ + + + + documented as of this encounter Procedures + +--------+ + + + | Procedure Name | Priori | Date/Time | Associated Diagnosis | Comments | | | ty | | | | + +--------+ + + + | POC GLUCOSE | Routin | 10/06/2013 | | Results for this | | | e | 5:21 AM | | procedure are in the | | | | PDT | | results section. | + +--------+ + + + | EXTERNAL LAB: CBC | Routin | 10/06/2013 | | Results for this | | | e | 4:33 AM | | procedure are in the | | | | PDT | | results section. | + +--------+ + + + | PHOSPHORUS | Routin | 10/06/2013 | | Results for this | | | e | 4:33 AM | | procedure are in the | | | | PDT | | results section. | + +--------+ + + + | MAGNESIUM | Routin | 10/06/2013 | | Results for this | | | e | 4:33 AM | | procedure are in the | | | | PDT | | results section. | + +--------+ + + + | BASIC METABOLIC | Routin | 10/06/2013 | | Results for this | | PANEL | e | 4:33 AM | | procedure are in the | | | | PDT | | results section. | + +--------+ + + + | POC GLUCOSE | Routin | 10/05/2013 | | Results for this | | | e | 8:50 PM | | procedure are in the | | | | PDT | | results section. | + +--------+ + + + | POC GLUCOSE | Routin | 10/05/2013 | | Results for this | | | e | 3:40 PM | | procedure are in the | | | | PDT | | results section. | + +--------+ + + + | POC GLUCOSE | Routin | 10/05/2013 | | Results for this | | | e | 11:02 AM | | procedure are in the | | | | PDT | | results section. | + +--------+ + + + | POC GLUCOSE | Routin | 10/05/2013 | | Results for this | | | e | 5:01 AM | | procedure are in the | | | | PDT | | results section. | + +--------+ + + + | EXTERNAL LAB: CBC | Routin | 10/05/2013 | | Results for this | | | e | 4:10 AM | | procedure are in the | | | | PDT | | results section. | + +--------+ + + + | PHOSPHORUS | Routin | 10/05/2013 | | Results for this | | | e | 4:10 AM | | procedure are in the | | | | PDT | | results section. | + +--------+ + + + | MAGNESIUM | Routin | 10/05/2013 | | Results for this | | | e | 4:10 AM | | procedure are in the | | | | PDT | | results section. | + +--------+ + + + | BASIC METABOLIC | Routin | 10/05/2013 | | Results for this | | PANEL | e | 4:10 AM | | procedure are in the | | | | PDT | | results section. | + +--------+ + + + | POC GLUCOSE | Routin | 10/04/2013 | | Results for this | | | e | 9:23 PM | | procedure are in the | | | | PDT | | results section. | + +--------+ + + + | POC GLUCOSE | Routin | 10/04/2013 | | Results for this | | | e | 4:40 PM | | procedure are in the | | | | PDT | | results section. | + +--------+ + + + | POC GLUCOSE | Routin | 10/04/2013 | | Results for this | | | e | 11:04 AM | | procedure are in the | | | | PDT | | results section. | + +--------+ + + + | POC GLUCOSE | Routin | 10/04/2013 | | Results for this | | | e | 5:25 AM | | procedure are in the | | | | PDT | | results section. | + +--------+ + + + | EXTERNAL LAB: CBC | Routin | 10/04/2013 | | Results for this | | | e | 4:04 AM | | procedure are in the | | | | PDT | | results section. | + +--------+ + + + | PHOSPHORUS | Routin | 10/04/2013 | | Results for this | | | e | 4:04 AM | | procedure are in the | | | | PDT | | results section. | + +--------+ + + + | MAGNESIUM | Routin | 10/04/2013 | | Results for this | | | e | 4:04 AM | | procedure are in the | | | | PDT | | results section. | + +--------+ + + + | BASIC METABOLIC | Routin | 10/04/2013 | | Results for this | | PANEL | e | 4:04 AM | | procedure are in the | | | | PDT | | results section. | + +--------+ + + + | POC GLUCOSE | Routin | 10/03/2013 | | Results for this | | | e | 8:51 PM | | procedure are in the | | | | PDT | | results section. | + +--------+ + + + | POC GLUCOSE | Routin | 10/03/2013 | | Results for this | | | e | 4:28 PM | | procedure are in the | | | | PDT | | results section. | + +--------+ + + + | DIGOXIN LEVEL | Routin | 10/03/2013 | | Results for this | | | e | 3:10 PM | | procedure are in the | | | | PDT | | results section. | + +--------+ + + + | POC GLUCOSE | Routin | 10/03/2013 | | Results for this | | | e | 11:36 AM | | procedure are in the | | | | PDT | | results section. | + +--------+ + + + | POC GLUCOSE | Routin | 10/03/2013 | | Results for this | | | e | 5:15 AM | | procedure are in the | | | | PDT | | results section. | + +--------+ + + + | EXTERNAL LAB: CBC | Routin | 10/03/2013 | | Results for this | | | e | 4:10 AM | | procedure are in the | | | | PDT | | results section. | + +--------+ + + + | PHOSPHORUS | Routin | 10/03/2013 | | Results for this | | | e | 4:10 AM | | procedure are in the | | | | PDT | | results section. | + +--------+ + + + | MAGNESIUM | Routin | 10/03/2013 | | Results for this | | | e | 4:10 AM | | procedure are in the | | | | PDT | | results section. | + +--------+ + + + | BASIC METABOLIC | Routin | 10/03/2013 | | Results for this | | PANEL | e | 4:10 AM | | procedure are in the | | | | PDT | | results section. | + +--------+ + + + | POC GLUCOSE | Routin | 10/02/2013 | | Results for this | | | e | 9:13 PM | | procedure are in the | | | | PDT | | results section. | + +--------+ + + + | POC GLUCOSE | Routin | 10/02/2013 | | Results for this | | | e | 4:03 PM | | procedure are in the | | | | PDT | | results section. | + +--------+ + + + | POC GLUCOSE | Routin | 10/02/2013 | | Results for this | | | e | 11:50 AM | | procedure are in the | | | | PDT | | results section. | + +--------+ + + + | POC GLUCOSE | Routin | 10/02/2013 | | Results for this | | | e | 4:50 AM | | procedure are in the | | | | PDT | | results section. | + +--------+ + + + | EXTERNAL LAB: CBC | Routin | 10/02/2013 | | Results for this | | | e | 4:40 AM | | procedure are in the | | | | PDT | | results section. | + +--------+ + + + | PHOSPHORUS | Routin | 10/02/2013 | | Results for this | | | e | 4:40 AM | | procedure are in the | | | | PDT | | results section. | + +--------+ + + + | MAGNESIUM | Routin | 10/02/2013 | | Results for this | | | e | 4:40 AM | | procedure are in the | | | | PDT | | results section. | + +--------+ + + + | BASIC METABOLIC | Routin | 10/02/2013 | | Results for this | | PANEL | e | 4:40 AM | | procedure are in the | | | | PDT | | results section. | + +--------+ + + + | POC GLUCOSE | Routin | 10/01/2013 | | Results for this | | | e | 9:08 PM | | procedure are in the | | | | PDT | | results section. | + +--------+ + + + | POC GLUCOSE | Routin | 10/01/2013 | | Results for this | | | e | 4:06 PM | | procedure are in the | | | | PDT | | results section. | + +--------+ + + + | POC GLUCOSE | Routin | 10/01/2013 | | Results for this | | | e | 11:57 AM | | procedure are in the | | | | PDT | | results section. | + +--------+ + + + | URINALYSIS WITH | Routin | 10/01/2013 | | Results for this | | MICROSCOPIC WITH | e | 8:45 AM | | procedure are in the | | CULTURE IF INDICATED | | PDT | | results section. | + +--------+ + + + | UREA NITROGEN, | Routin | 10/01/2013 | | Results for this | | URINE, RANDOM | e | 8:45 AM | | procedure are in the | | | | PDT | | results section. | + +--------+ + + + | EOSINOPHIL SMEAR, | Routin | 10/01/2013 | | Results for this | | URINE | e | 8:45 AM | | procedure are in the | | | | PDT | | results section. | + +--------+ + + + | CULTURE, URINE | Routin | 10/01/2013 | | Results for this | | | e | 8:45 AM | | procedure are in the | | | | PDT | | results section. | + +--------+ + + + | SODIUM, URINE, | Routin | 10/01/2013 | | Results for this | | RANDOM | e | 8:44 AM | | procedure are in the | | | | PDT | | results section. | + +--------+ + + + | CREATININE, URINE, | Routin | 10/01/2013 | | Results for this | | RANDOM | e | 8:44 AM | | procedure are in the | | | | PDT | | results section. | + +--------+ + + + | US RENAL LIMITED | Routin | 10/01/2013 | | Results for this | | | e | 7:43 AM | | procedure are in the | | | | PDT | | results section. | + +--------+ + + + | EXTERNAL LAB: CBC | Routin | 10/01/2013 | | Results for this | | | e | 5:45 AM | | procedure are in the | | | | PDT | | results section. | + +--------+ + + + | TROPONIN I | Routin | 10/01/2013 | | Results for this | | | e | 5:45 AM | | procedure are in the | | | | PDT | | results section. | + +--------+ + + + | B TYPE NATRIURETIC | Routin | 10/01/2013 | | Results for this | | PEPTIDE | e | 5:45 AM | | procedure are in the | | | | PDT | | results section. | + +--------+ + + + | MAGNESIUM | Routin | 10/01/2013 | | Results for this | | | e | 5:45 AM | | procedure are in the | | | | PDT | | results section. | + +--------+ + + + | RENAL FUNCTION PANEL | Routin | 10/01/2013 | | Results for this | | | e | 5:45 AM | | procedure are in the | | | | PDT | | results section. | + +--------+ + + + | POC GLUCOSE | Routin | 10/01/2013 | | Results for this | | | e | 5:18 AM | | procedure are in the | | | | PDT | | results section. | + +--------+ + + + | TROPONIN I | Routin | 09/30/2013 | | Results for this | | | e | 11:58 PM | | procedure are in the | | | | PDT | | results section. | + +--------+ + + + | POC GLUCOSE | Routin | 09/30/2013 | | Results for this | | | e | 11:23 PM | | procedure are in the | | | | PDT | | results section. | + +--------+ + + + | XR CHEST 2 VIEWS | Routin | 09/30/2013 | | Results for this | | | e | 8:07 PM | | procedure are in the | | | | PDT | | results section. | + +--------+ + + + documented in this encounter Results POC Glucose (10/06/2013 5:21 AM PDT) + + + + + + | Component | Value | Ref Range | Performed | Pathologist | | | | | At | Signature | + + + + + + | Glucose, | 125 (H)Comment: Testing | 65 - 99 mg/dL | EXTERNAL | | | Fingerstick | performed at [facility] [place];[address] | | LAB | | | | [address];[place], [place] | | | | | | [address] | | | | + + + + + + + + | Specimen | + + | | + + + +---------+ + + | Performing | Address | City/State/Zipcode | Phone Number | | Organization | | | | + +---------+ + + | EXTERNAL LAB | | | | + +---------+ + + External Lab: CBC (10/06/2013 4:33 AM PDT) + + + + + + | Component | Value | Ref Range | Performed | Pathologist | | | | | At | Signature | + + + + + + | WBC | 7.0Comment: Testing | 3.8 - 11.0 K/uL | EXTERNAL | | | | performed at [facility], [address] | | LAB | | | | [address], | | | | | | [place] [address] | | | | + + + + + + | RED CELL | 3.88Comment: Testing | 3.70 - 5.10 | EXTERNAL | | | COUNT | performed at [facility], [address] | M/uL | LAB | | | | [address], | | | | | | [place] [address] | | | | + + + + + + | Hgb | 12.4Comment: Testing | 11.3 - 15.5 | EXTERNAL | | | | performed at [facility], [address] | g/dL | LAB | | | | [address], | | | | | | [place] [address] | | | | + + + + + + | Hematocrit, | 37.0Comment: Testing | 34.0 - 46.0 % | EXTERNAL | | | POC | performed at [facility], [address] | | LAB | | | | [address] [place], | | | | | | [place] [address] | | | | + + + + + + | MCV | 95.4Comment: Testing | 80.0 - 100.0 fl | EXTERNAL | | | | performed at [facility], [address] | | LAB | | | | [address], | | | | | | [place] [address] | | | | + + + + + + | MCH | 32.0Comment: Testing | 27.0 - 34.0 pg | EXTERNAL | | | | performed at [facility], [address] | | LAB | | | | [address], | | | | | | [place] [address] | | | | + + + + + + | MCHC | 33.6Comment: Testing | 32.0 - 35.5 | EXTERNAL | | | | performed at [facility], [address] | g/dL | LAB | | | | [address], | | | | | | [place] [address] | | | | + + + + + + | RDW-CV | 43.8Comment: Testing | 37 - 53 fl | EXTERNAL | | | | performed at [facility], [address] | | LAB | | | | [address], | | | | | | [place] [address] | | | | + + + + + + | Platelet | 151Comment: Testing | 150 - 400 K/uL | EXTERNAL | | | Count | performed at [facility], [address] | | LAB | | | Plasma | [address], | | | | | | [place] [address] | | | | + + + + + + | MPV | 8.7Comment: Testing | fl | EXTERNAL | | | | performed at [facility], [address] | | LAB | | | | [address] [place], | | | | | | [place] [address] | | | | + + + + + + | Differentia | AUTOMATEDComment: | | EXTERNAL | | | l Type | Testing performed at | | LAB | | | | [facility], [address] | | | | | | [place] | | | | | | [address] | | | | + + + + + + | % Segmented | 43.7Comment: Testing | % | EXTERNAL | | | | performed at [facility], [address] | | LAB | | | Neutrophils | [place] [place], | | | | | | [place] [address] | | | | + + + + + + | % | 36.3Comment: Testing | % | EXTERNAL | | | Lymphocytes | performed at [facility], [address] | | LAB | | | | [address], | | | | | | [place] [address] | | | | + + + + + + | % Monocytes | 13.1Comment: Testing | % | EXTERNAL | | | | performed at [facility], [address] | | LAB | | | | [address], | | | | | | [place] [address] | | | | + + + + + + | % | 5.9Comment: Testing | % | EXTERNAL | | | Eosinophils | performed at [facility], [address] | | LAB | | | | [address], | | | | | | [place] [address] | | | | + + + + + + | % Basophils | 1.0Comment: Testing | % | EXTERNAL | | | | performed at [facility], [address] | | LAB | | | | [address], | | | | | | [place] [address] | | | | + + + + + + | Absolute | 3.1Comment: Testing | 1.9 - 7.4 K/uL | EXTERNAL | | | Segmented | performed at [facility], [address] | | LAB | | | Neutrophils | [address], | | | | | | [place] [address] | | | | + + + + + + | Absolute | 2.5Comment: Testing | 1.0 - 3.9 K/uL | EXTERNAL | | | Lymphocytes | performed at [facility], [address] | | LAB | | | | [address], | | | | | | [place] [address] | | | | + + + + + + | Absolute | 0.9 (H)Comment: Testing | 0 - 0.8 K/uL | EXTERNAL | | | Monocytes | performed at [facility], [address] | | LAB | | | | [address], | | | | | | [place] [address] | | | | + + + + + + | Absolute | 0.4Comment: Testing | 0 - 0.5 K/uL | EXTERNAL | | | Eosinophils | performed at [facility], [address] | | LAB | | | | [address], | | | | | | [place] [address] | | | | + + + + + + | Absolute | 0.1Comment: Testing | 0 - 0.1 K/uL | EXTERNAL | | | Basophils | performed at [facility], [address] | | LAB | | | | [address], | | | | | | [place] [address] | | | | + + + + + + + + | Specimen | + + | Blood specimen | | (specimen) | + + + +---------+ + + | Performing | Address | City/State/Zipcode | Phone Number | | Organization | | | | + +---------+ + + | EXTERNAL LAB | | | | + +---------+ + + Phosphorus (10/06/2013 4:33 AM PDT) + + + + + + | Component | Value | Ref Range | Performed | Pathologist | | | | | At | Signature | + + + + + + | PHOSPHORUS | 2.9Comment: Testing | 2.3 - 4.8 mg/dL | EXTERNAL | | | | performed at [facility], [address] | | LAB | | | | [place] [place], | | | | | | [place] [address] | | | | + + + + + + + + | Specimen | + + | Blood specimen | | (specimen) | + + + +---------+ + + | Performing | Address | City/State/Zipcode | Phone Number | | Organization | | | | + +---------+ + + | EXTERNAL LAB | | | | + +---------+ + + Magnesium (10/06/2013 4:33 AM PDT) + + + + + [...] [place], | | | | | | [place] [address] | | | | + + + [...] + +---------+ + + Basic Metabolic Panel (10/06/2013 4:33 AM PDT) + + + + + [...] | | | | | [place] [address] | | | | + + + + + + | K | 3.3 (L)Comment: Testing | 3.5 - 4.9 | EXTERNAL | | | | performed at [facility], [address] | mmol/L | LAB | | | | [address], | | | | | | [place] [address] | | | | + + + + + + | Cl | 107Comment: Testing | 99 - 109 mmol/L | EXTERNAL | | | | performed at [facility], [address] | | LAB | | | | [address], | | | | | | [place] [address] | | | | + + + + + + | CO2 | 24Comment: Testing | 23 - 32 mmol/L | EXTERNAL | | | | performed at [facility], [address] | | LAB | | | | [address] [place], | | | | | | [place] [address] | | | | + + + + + + | Anion Gap | 12Comment: Testing | 5 - 20 mmol/L | EXTERNAL | | | | performed at [facility], [address] | | LAB | | | | [address], | | | | | | [place] [address] | | | | + + + + + + | Glucose, | 127 (H)Comment: Testing | 65 - 99 mg/dL | EXTERNAL | | | Fasting | performed at [facility], [address] | | LAB | | | | [address], | | | | | | [place] [address] | | | | + + + + + + | BUN | 17Comment: Testing | 8 - 25 mg/dL | EXTERNAL | | | | performed at [facility], [address] | | LAB | | | | [address], | | | | | | [place] [address] | | | | + + + + + + | Creatinine | 1.37 (H)Comment: Testing | 0.50 - 1.00 | EXTERNAL | | | | performed at [facility], [address] | mg/dL | LAB | | | | [address], | | | | | | [place] [address] | | | | + + + + + + | BUN/Creatin | 12Comment: Testing | | EXTERNAL | | | ine Ratio | performed at [facility], [address] | | LAB | | | | [address], | | | | | | [place] [address] | | | | + + + + + + | Calcium | 9.3Comment: Testing | 8.5 - 10.2 | EXTERNAL | | | | performed at [facility], [address] | mg/dL | LAB | | | | [address] [facility], | | | | | | [place] [address] | | | | + + + + + + | Estimated | 39 (L)Comment: GFR <60: | mL/min/1.73m2 | EXTERNAL [...] | | | | | | at [facility], [address] | | | | | | [address] [facility], | | | | | | [place] [address] | | | | + + + + + + + + | Specimen | + + | Blood specimen | | (specimen) | + + + +---------+ + + | Performing | Address | City/State/Zipcode | Phone Number | | Organization | | | | + +---------+ + + | EXTERNAL LAB | | | | + +---------+ + + POC Glucose (10/05/2013 8:50 PM PDT) + + + + + + | Component | Value | Ref Range | Performed | Pathologist | | | | | At | Signature | + + + + + + | Glucose, | 184 (H)Comment: Testing | 65 - 99 mg/dL | EXTERNAL | | | Fingerstick | performed at [facility];[address] | | LAB | | | | [place] | | | | | | [address] | | | | + + + + + + + + | Specimen | + + | | + + + +---------+ + + | Performing | Address | City/State/Zipcode | Phone Number | | Organization | | | | + +---------+ + + | EXTERNAL LAB | | | | + +---------+ + + POC Glucose (10/05/2013 3:40 PM PDT) + + + + + + | Component | Value | Ref Range | Performed | Pathologist | | | | | At | Signature | + + + + + + | Glucose, | 113 (H)Comment: Testing | 65 - 99 mg/dL | EXTERNAL | | | Fingerstick | performed at [facility];[address] | | LAB | | | | [place], [place] | | | | | | [address] | | | | + + + + + + + + | Specimen | + + | | + + + +---------+ + + | Performing | Address | City/State/Zipcode | Phone Number | | Organization | | | | + +---------+ + + | EXTERNAL LAB | | | | + +---------+ + + POC Glucose (10/05/2013 11:02 AM PDT) + + + + + + | Component | Value | Ref Range | Performed | Pathologist | | | | | At | Signature | + + + + + + | Glucose, | 217 (H)Comment: Testing | 65 - 99 mg/dL | EXTERNAL | | | Fingerstick | performed at [facility];[address] | | LAB | | | | [address];[place], [place] | | | | | | [address] | | | | + + + + + + + + | Specimen | + + | | + + + +---------+ + + | Performing | Address | City/State/Zipcode | Phone Number | | Organization | | | | + +---------+ + + | EXTERNAL LAB | | | | + +---------+ + + POC Glucose (10/05/2013 5:01 AM PDT) + + + + + + | Component | Value | Ref Range | Performed | Pathologist | | | | | At | Signature | + + + + + + | Glucose, | 119 (H)Comment: Testing | 65 - 99 mg/dL | EXTERNAL | | | Fingerstick | performed at [facility];[address] | | LAB | | | | [address];[place], [place] | | | | | | [address] | | | | + + + + + + + + | Specimen | + + | | + + + +---------+ + + | Performing | Address | City/State/Zipcode | Phone Number | | Organization | | | | + +---------+ + + | EXTERNAL LAB | | | | + +---------+ + + External Lab: CBC (10/05/2013 4:10 AM PDT) + + + + + + | Component | Value | Ref Range | Performed | Pathologist | | | | | At | Signature | + + + + + + | WBC | 7.5Comment: Testing | 3.8 - 11.0 K/uL | EXTERNAL | | | | performed at [facility], [address] | | LAB | | | | [place], | | | | | | [place] [address] | | | | + + + + + + | RED CELL | 3.73Comment: Testing | 3.70 - 5.10 | EXTERNAL | | | COUNT | performed at [facility], [address] | M/uL | LAB | | | | [address], | | | | | | [place] [address] | | | | + + + + + + | Hgb | 11.9Comment: Testing | 11.3 - 15.5 | EXTERNAL | | | | performed at [facility], [address] | g/dL | LAB | | | | [address], | | | | | | [place] [address] | | | | + + + + + + | Hematocrit, | 36.0Comment: Testing | 34.0 - 46.0 % | EXTERNAL | | | POC | performed at [facility], [address] | | LAB | | | | [address], | | | | | | [place] [address] | | | | + + + + + + | MCV | 96.4Comment: Testing | 80.0 - 100.0 fl | EXTERNAL | | | | performed at [facility], [address] | | LAB | | | | [address], | | | | | | [place] [address] | | | | + + + + + + | MCH | 32.0Comment: Testing | 27.0 - 34.0 pg | EXTERNAL | | | | performed at [facility], [address] | | LAB | | | | [address], | | | | | | [place] [address] | | | | + + + + + + | MCHC | 33.1Comment: Testing | 32.0 - 35.5 | EXTERNAL | | | | performed at [facility], [address] | g/dL | LAB | | | | [address], | | | | | | [place] [address] | | | | + + + + + + | RDW-CV | 44.6Comment: Testing | 37 - 53 fl | EXTERNAL | | | | performed at [facility], [address] | | LAB | | | | [address], | | | | | | [place] [address] | | | | + + + + + + | Platelet | 139 (L)Comment: Testing | 150 - 400 K/uL | EXTERNAL | | | Count | performed at [facility], [address] | | LAB | | | Plasma | [address] [place], | | | | | | [place] [address] | | | | + + + + + + | MPV | 8.7Comment: Testing | fl | EXTERNAL | | | | performed at [facility], [address] | | LAB | | | | [address], | | | | | | [place] [address] | | | | + + + + + + | Differentia | AUTOMATEDComment: | | EXTERNAL | | | l Type | Testing performed at | | LAB | | | | [facility], [address] | | | | | | [place] | | | | | | [address] | | | | + + + + + + | % Segmented | 49.1Comment: Testing | % | EXTERNAL | | | | performed at [facility], [address] | | LAB | | | Neutrophils | [address], | | | | | | [place] [address] | | | | + + + + + + | % | 32.4Comment: Testing | % | EXTERNAL | | | Lymphocytes | performed at [facility], [address] | | LAB | | | | [address], | | | | | | [place] [address] | | | | + + + + + + | % Monocytes | 11.9Comment: Testing | % | EXTERNAL | | | | performed at [facility], [address] | | LAB | | | | [address], | | | | | | [place] [address] | | | | + + + + + + | % | 5.7Comment: Testing | % | EXTERNAL | | | Eosinophils | performed at [facility], [address] | | LAB | | | | [address], | | | | | | [place] [address] | | | | + + + + + + | % Basophils | 0.9Comment: Testing | % | EXTERNAL | | | | performed at [facility], [address] | | LAB | | | | [address], | | | | | | [place] [address] | | | | + + + + + + | Absolute | 3.7Comment: Testing | 1.9 - 7.4 K/uL | EXTERNAL | | | Segmented | performed at [facility], [address] | | LAB | | | Neutrophils | [address], | | | | | | [place] [address] | | | | + + + + + + | Absolute | 2.4Comment: Testing | 1.0 - 3.9 K/uL | EXTERNAL | | | Lymphocytes | performed at [facility], [address] | | LAB | | | | [address], | | | | | | [place] [address] | | | | + + + + + + | Absolute | 0.9 (H)Comment: Testing | 0 - 0.8 K/uL | EXTERNAL | | | Monocytes | performed at [facility], [address] | | LAB | | | | [address], | | | | | | [place] [address] | | | | + + + + + + | Absolute | 0.4Comment: Testing | 0 - 0.5 K/uL | EXTERNAL | | | Eosinophils | performed at [facility], [address] | | LAB | | | | [address], | | | | | | [place] [address] | | | | + + + + + + | Absolute | 0.1Comment: Testing | 0 - 0.1 K/uL | EXTERNAL | | | Basophils | performed at [facility], [address] | | LAB | | | | [place], | | | | | | [place] [address] | | | | + + + + + + + + | Specimen | + + | Blood specimen | | (specimen) | + + + +---------+ + + | Performing | Address | City/State/Zipcode | Phone Number | | Organization | | | | + +---------+ + + | EXTERNAL LAB | | | | + +---------+ + + Phosphorus (10/05/2013 4:10 AM PDT) + + + + + + | Component | Value | Ref Range | Performed | Pathologist | | | | | At | Signature | + + + + + + | PHOSPHORUS | 2.6Comment: Testing | 2.3 - 4.8 mg/dL | EXTERNAL | | | | performed at [facility], [address] | | LAB | | | | [address], | | | | | | [place] [address] | | | | + + + + + + + + | Specimen | + + | Blood specimen | | (specimen) | + + + +---------+ + + | Performing | Address | City/State/Zipcode | Phone Number | | Organization | | | | + +---------+ + + | EXTERNAL LAB | | | | + +---------+ + + Magnesium (10/05/2013 4:10 AM PDT) + + + + + + | Component | Value | Ref Range | Performed | Pathologist | | | | | At | Signature | + + + + + + | Magnesium | 1.6 (L)Comment: Testing | 1.7 - 2.4 mg/dL | EXTERNAL | | | | performed at [facility], [address] | | LAB | | | | [place], | | | | | | [place] [address] | | | | + + + [...] + +---------+ + + Basic Metabolic Panel (10/05/2013 4:10 AM PDT) + + + + + + | Component | Value | Ref Range | Performed | Pathologist | | | | | At | Signature | + + + + + + | Na | 140Comment: Testing | 135 - 143 | EXTERNAL | | | | performed at [facility], [address] | mmol/L | LAB | | | | [place], | | | | | | [place] [address] | | | | + + + + + + | K | 3.5Comment: Testing | 3.5 - 4.9 | EXTERNAL | | | | performed at [facility], [address] | mmol/L | LAB | | | | [address], | | | | | | [place] [address] | | | | + + + + + + | Cl | 109Comment: Testing | 99 - 109 mmol/L | EXTERNAL | | | | performed at [facility], [address] | | LAB | | | | [address], | | | | | | [place] [address] | | | | + + + + + + | CO2 | 24Comment: Testing | 23 - 32 mmol/L | EXTERNAL | | | | performed at [facility], [address] | | LAB | | | | [address], | | | | | | [place] [address] | | | | + + + + + + | Anion Gap | 11Comment: Testing | 5 - 20 mmol/L | EXTERNAL | | | | performed at [facility], [address] | | LAB | | | | [address], | | | | | | [place] [address] | | | | + + + + + + | Glucose, | 117 (H)Comment: Testing | 65 - 99 mg/dL | EXTERNAL | | | Fasting | performed at [facility], [address] | | LAB | | | | [address], | | | | | | [place] [address] | | | | + + + + + + | BUN | 18Comment: Testing | 8 - 25 mg/dL | EXTERNAL | | | | performed at [facility], [address] | | LAB | | | | [address], | | | | | | [place] [address] | | | | + + + + + + | Creatinine | 1.61 (H)Comment: Testing | 0.50 - 1.00 | EXTERNAL | | | | performed at [facility], [address] | mg/dL | LAB | | | | [address], | | | | | | [place] [address] | | | | + + + + + + | BUN/Creatin | 11Comment: Testing | | EXTERNAL | | | ine Ratio | performed at [facility], [address] | | LAB | | | | [address], | | | | | | [place] [address] | | | | + + + + + + | Calcium | 9.1Comment: Testing | 8.5 - 10.2 | EXTERNAL | | | | performed at [facility], [address] | mg/dL | LAB | | | | [address], | | | | | | [place] [address] | | | | + + + + + + | Estimated | 33 (L)Comment: GFR <60: | mL/min/1.73m2 | EXTERNAL [...] [address] | | | | | [address], | | | | | | [place] [address] | | | | + + + + + + + + | Specimen | + + | Blood specimen | | (specimen) | + + + +---------+ + + | Performing | Address | City/State/Zipcode | Phone Number | | Organization | | | | + +---------+ + + | EXTERNAL LAB | | | | + +---------+ + + POC Glucose (10/04/2013 9:23 PM PDT) + + + + + + | Component | Value | Ref Range | Performed | Pathologist | | | | | At | Signature | + + + + + + | Glucose, | 144 (H)Comment: Testing | 65 - 99 mg/dL | EXTERNAL | | | Fingerstick | performed at [facility];[address] | | LAB | | | | [address];[place], [place] | | | | | | [address] | | | | + + + + + + + + | Specimen | + + | | + + + +---------+ + + | Performing | Address | City/State/Zipcode | Phone Number | | Organization | | | | + +---------+ + + | EXTERNAL LAB | | | | + +---------+ + + POC Glucose (10/04/2013 4:40 PM PDT) + + + + + + | Component | Value | Ref Range | Performed | Pathologist | | | | | At | Signature | + + + + + + | Glucose, | 123 (H)Comment: Testing | 65 - 99 mg/dL | EXTERNAL | | | Fingerstick | performed at [facility];[address] | | LAB | | | | [place] | | | | | | [address] | | | | + + + + + + + + | Specimen | + + | | + + + +---------+ + + | Performing | Address | City/State/Zipcode | Phone Number | | Organization | | | | + +---------+ + + | EXTERNAL LAB | | | | + +---------+ + + POC Glucose (10/04/2013 11:04 AM PDT) + + + + + + | Component | Value | Ref Range | Performed | Pathologist | | | | | At | Signature | + + + + + + | Glucose, | 157 (H)Comment: Testing | 65 - 99 mg/dL | EXTERNAL | | | Fingerstick | performed at [facility];[address] | | LAB | | | | [place] | | | | | | [address] | | | | + + + + + + + + | Specimen | + + | | + + + +---------+ + + | Performing | Address | City/State/Zipcode | Phone Number | | Organization | | | | + +---------+ + + | EXTERNAL LAB | | | | + +---------+ + + POC Glucose (10/04/2013 5:25 AM PDT) + + + + + + | Component | Value | Ref Range | Performed | Pathologist | | | | | At | Signature | + + + + + + | Glucose, | 118 (H)Comment: Testing | 65 - 99 mg/dL | EXTERNAL | | | Fingerstick | performed at [facility];[address] | | LAB | | | | [place], [place] | | | | | | [address] | | | | + + + + + + + + | Specimen | + + | | + + + +---------+ + + | Performing | Address | City/State/Zipcode | Phone Number | | Organization | | | | + +---------+ + + | EXTERNAL LAB | | | | + +---------+ + + External Lab: CBC (10/04/2013 4:04 AM PDT) + + + + + + | Component | Value | Ref Range | Performed | Pathologist | | | | | At | Signature | + + + + + + | WBC | 6.8Comment: Testing | 3.8 - 11.0 K/uL | EXTERNAL | | | | performed at [facility], [address] | | LAB | | | | [place], | | | | | | [place] [address] | | | | + + + + + + | RED CELL | 3.81Comment: Testing | 3.70 - 5.10 | EXTERNAL | | | COUNT | performed at [facility], [address] | M/uL | LAB | | | | [place], | | | | | | [place] [address] | | | | + + + + + + | Hgb | 12.2Comment: Testing | 11.3 - 15.5 | EXTERNAL | | | | performed at [facility], [address] | g/dL | LAB | | | | [address], | | | | | | [place] [address] | | | | + + + + + + | Hematocrit, | 36.6Comment: Testing | 34.0 - 46.0 % | EXTERNAL | | | POC | performed at [facility], [address] | | LAB | | | | [address], | | | | | | [place] [address] | | | | + + + + + + | MCV | 96.2Comment: Testing | 80.0 - 100.0 fl | EXTERNAL | | | | performed at [facility], [address] | | LAB | | | [address], | | | | | | [place] [address] | | | | + + + + + + | MCH | 31.9Comment: Testing | 27.0 - 34.0 pg | EXTERNAL | | | | performed at [facility], [address] | | LAB | | | | [address], | | | | | | [place] [address] | | | | + + + + + + | MCHC | 33.2Comment: Testing | 32.0 - 35.5 | EXTERNAL | | | | performed at [facility], [address] | g/dL | LAB | | | | [address], | | | | | | [place] [address] | | | | + + + + + + | RDW-CV | 45.1Comment: Testing | 37 - 53 fl | EXTERNAL | | | | performed at [facility], [address] | | LAB | | | | [address], | | | | | | [place] [address] | | | | + + + + + + | Platelet | 136 (L)Comment: Testing | 150 - 400 K/uL | EXTERNAL | | | Count | performed at [facility], [address] | | LAB | | | Plasma | [address], | | | | | | [place] [address] | | | | + + + + + + | MPV | 8.7Comment: Testing | fl | EXTERNAL | | | | performed at [facility], [address] | | LAB | | | | [address], | | | | | | [place] [address] | | | | + + + + + + | Differentia | AUTOMATEDComment: | | EXTERNAL | | | l Type | Testing performed at | | LAB | | | | [facility], [address] | | | | | | [place] | | | | | | [address] | | | | + + + + + + | % Segmented | 51.5Comment: Testing | % | EXTERNAL | | | | performed at [facility], [address] | | LAB | | | Neutrophils | [place] [place], | | | | | | [place] [address] | | | | + + + + + + | % | 30.0Comment: Testing | % | EXTERNAL | | | Lymphocytes | performed at [facility], [address] | | LAB | | | | [place], | | | | | | [place] [address] | | | | + + + + + + | % Monocytes | 11.2Comment: Testing | % | EXTERNAL | | | | performed at [facility], [address] | | LAB | | | | [address], | | | | | | [place] [address] | | | | + + + + + + | % | 6.4Comment: Testing | % | EXTERNAL | | | Eosinophils | performed at [facility], [address] | | LAB | | | | [address], | | | | | | [place] [address] | | | | + + + + + + | % Basophils | 0.9Comment: Testing | % | EXTERNAL | | | | performed at [facility], [address] | | LAB | | | | [address], | | | | | | [place] [address] | | | | + + + + + + | Absolute | 3.5Comment: Testing | 1.9 - 7.4 K/uL | EXTERNAL | | | Segmented | performed at [facility], [address] | | LAB | | | Neutrophils | [address], | | | | | | [place] [address] | | | | + + + + + + | Absolute | 2.0Comment: Testing | 1.0 - 3.9 K/uL | EXTERNAL | | | Lymphocytes | performed at [facility], [address] | | LAB | | | | [address], | | | | | | [place] [address] | | | | + + + + + + | Absolute | 0.8Comment: Testing | 0 - 0.8 K/uL | EXTERNAL | | | Monocytes | performed at [facility], [address] | | LAB | | | | [address], | | | | | | [place] [address] | | | | + + + + + + | Absolute | 0.4Comment: Testing | 0 - 0.5 K/uL | EXTERNAL | | | Eosinophils | performed at [facility], [address] | | LAB | | | | [address], | | | | | | [place] [address] | | | | + + + + + + | Absolute | 0.1Comment: Testing | 0 - 0.1 K/uL | EXTERNAL | | | Basophils | performed at [facility], [address] | | LAB | | | | [address], | | | | | | [place] [address] | | | | + + + + + + + + | Specimen | + + | Blood specimen | | (specimen) | + + + +---------+ + + | Performing | Address | City/State/Zipcode | Phone Number | | Organization | | | | + +---------+ + + | EXTERNAL LAB | | | | + +---------+ + + Phosphorus (10/04/2013 4:04 AM PDT) + + + + + + | Component | Value | Ref Range | Performed | Pathologist | | | | | At | Signature | + + + + + + | PHOSPHORUS | 2.6Comment: Testing | 2.3 - 4.8 mg/dL | EXTERNAL | | | | performed at [facility], [address] | | LAB | | | | [address], | | | | | | [place] [address] | | | | + + + + + + + + | Specimen | + + | Blood specimen | | (specimen) | + + + +---------+ + + | Performing | Address | City/State/Zipcode | Phone Number | | Organization | | | | + +---------+ + + | EXTERNAL LAB | | | | + +---------+ + + Magnesium (10/04/2013 4:04 AM PDT) + + + + + [...] | | | | | [place] [address] | | | | + + + [...] + +---------+ + + Basic Metabolic Panel (10/04/2013 4:04 AM PDT) + + + + + + | Component | Value | Ref Range | Performed | Pathologist | | | | | At | Signature | + + + + + + | Na | 140Comment: Testing | 135 - 143 | EXTERNAL | | | | performed at [facility], [address] | mmol/L | LAB | | | | [address], | | | | | | [place] [address] | | | | + + + + + + | K | 4.0Comment: Testing | 3.5 - 4.9 | EXTERNAL | | | | performed at [facility], [address] | mmol/L | LAB | | | | [address], | | | | | | [place] [address] | | | | + + + + + + | Cl | 113 (H)Comment: Testing | 99 - 109 mmol/L | EXTERNAL | | | | performed at [facility], [address] | | LAB | | | | [address], | | | | | | [place] [address] | | | | + + + + + + | CO2 | 22 (L)Comment: Testing | 23 - 32 mmol/L | EXTERNAL | | | | performed at [facility], [address] | | LAB | | | | [address], | | | | | | [place] [address] | | | | + + + + + + | Anion Gap | 9Comment: Testing | 5 - 20 mmol/L | EXTERNAL | | | | performed at [facility], [address] | | LAB | | | | [address] [address], | | | | | | [place] [address] | | | | + + + + + + | Glucose, | 118 (H)Comment: Testing | 65 - 99 mg/dL | EXTERNAL | | | Fasting | performed at [facility], [address] | | LAB | | | | [address], | | | | | | [place] [address] | | | | + + + + + + | BUN | 18Comment: Testing | 8 - 25 mg/dL | EXTERNAL | | | | performed at [facility], [address] | | LAB | | | | [address], | | | | | | [place] [address] | | | | + + + + + + | Creatinine | 1.24 (H)Comment: Testing | 0.50 - 1.00 | EXTERNAL | | | | performed at [facility], [address] | mg/dL | LAB | | | | [address], | | | | | | [place] [address] | | | | + + + + + + | BUN/Creatin | 15Comment: Testing | | EXTERNAL | | | ine Ratio | performed at [facility], [address] | | LAB | | | | [address], | | | | | | [place] [address] | | | | + + + + + + | Calcium | 9.1Comment: Testing | 8.5 - 10.2 | EXTERNAL | | | | performed at [facility], [address] | mg/dL | LAB | | | | [address], | | | | | | [place] [address] | | | | + + + [...] | | | | | | at [facility], [address] | | | | | | [address], | | | | | | [place] [address] | | | | + + + + + + + + | Specimen | + + | Blood specimen | | (specimen) | + + + +---------+ + + | Performing | Address | City/State/Zipcode | Phone Number | | Organization | | | | + +---------+ + + | EXTERNAL LAB | | | | + +---------+ + + POC Glucose (10/03/2013 8:51 PM PDT) + + + + + + | Component | Value | Ref Range | Performed | Pathologist | | | | | At | Signature | + + + + + + | Glucose, | 165 (H)Comment: Testing | 65 - 99 mg/dL | EXTERNAL | | | Fingerstick | performed at [facility];[address] | | LAB | | | | [address];[place], [place] | | | | | | [address] | | | | + + + + + + + + | Specimen | + + | | + + + +---------+ + + | Performing | Address | City/State/Zipcode | Phone Number | | Organization | | | | + +---------+ + + | EXTERNAL LAB | | | | + +---------+ + + POC Glucose (10/03/2013 4:28 PM PDT) + + + + + + | Component | Value | Ref Range | Performed | Pathologist | | | | | At | Signature | + + + + + + | Glucose, | 158 (H)Comment: Testing | 65 - 99 mg/dL | EXTERNAL | | | Fingerstick | performed at [facility];[address] | | LAB | | | | [address];[place] | | | | | | [address] | | | | + + + + + + + + | Specimen | + + | | + + + +---------+ + + | Performing | Address | City/State/Zipcode | Phone Number | | Organization | | | | + +---------+ + + | EXTERNAL LAB | | | | + +---------+ + + Digoxin Level (10/03/2013 3:10 PM PDT) + + + + + + | Component | Value | Ref Range | Performed | Pathologist | | | | | At | Signature | + + + + + + | Date of | NOT GIVENComment: | | EXTERNAL | | | Last Dose | Testing performed at | | LAB | | | | [facility];[address];[place] [address] | | | | + + + + + + | Time of | NOT GIVENComment: | | EXTERNAL | | | Last Dose | Testing performed at | | LAB | | | | [facility];[address] | | | [address];[place] [address] | | | | + + + + + + | Digoxin | 1.4Comment: Testing | 0.90 - 2.00 | EXTERNAL | | | level | performed at [facility];[address] | ng/mL | LAB | | | | [address];[place] | | | | | | [address] | | | | + + + + + + + + | Specimen | + + | Blood specimen | | (specimen) | + + + +---------+ + + | Performing | Address | City/State/Zipcode | Phone Number | | Organization | | | | + +---------+ + + | EXTERNAL LAB | | | | + +---------+ + + POC Glucose (10/03/2013 11:36 AM PDT) + + + + + + | Component | Value | Ref Range | Performed | Pathologist | | | | | At | Signature | + + + + + + | Glucose, | 115 (H)Comment: Testing | 65 - 99 mg/dL | EXTERNAL | | | Fingerstick | performed at [facility];[address] | | LAB | | | | [address];[place] | | | | | | [address] | | | | + + + + + + + + | Specimen | + + | | + + + +---------+ + + | Performing | Address | City/State/Zipcode | Phone Number | | Organization | | | | + +---------+ + + | EXTERNAL LAB | | | | + +---------+ + + POC Glucose (10/03/2013 5:15 AM PDT) + + + + + + | Component | Value | Ref Range | Performed | Pathologist | | | | | At | Signature | + + + + + + | Glucose, | 101 (H)Comment: Testing | 65 - 99 mg/dL | EXTERNAL | | | Fingerstick | performed at [facility];[address] | | LAB | | | | [address];[place] | | | | | | [address] | | | | + + + + + + + + | Specimen | + + | | + + + +---------+ + + | Performing | Address | City/State/Zipcode | Phone Number | | Organization | | | | + +---------+ + + | EXTERNAL LAB | | | | + +---------+ + + External Lab: CBC (10/03/2013 4:10 AM PDT) + + + + + + | Component | Value | Ref Range | Performed | Pathologist | | | | | At | Signature | + + + + + + | WBC | 7.1Comment: Testing | 3.8 - 11.0 K/uL | EXTERNAL | | | | performed at [facility], [address] | | LAB | | | | [address], | | | | | | [place] [address] | | | | + + + + + + | RED CELL | 3.74Comment: Testing | 3.70 - 5.10 | EXTERNAL | | | COUNT | performed at [facility], [address] | M/uL | LAB | | | | [address], | | | | | | [place] [address] | | | | + + + + + + | Hgb | 12.1Comment: Testing | 11.3 - 15.5 | EXTERNAL | | | | performed at [facility], [address] | g/dL | LAB | | | | [address], | | | | | | [place] [address] | | | | + + + + + + | Hematocrit, | 36.3Comment: Testing | 34.0 - 46.0 % | EXTERNAL | | | POC | performed at [facility], [address] | | LAB | | | | [address], | | | | | | [place] [address] | | | | + + + + + + | MCV | 97.2Comment: Testing | 80.0 - 100.0 fl | EXTERNAL | | | | performed at [facility], [address] | | LAB | | | | [address], | | | | | | [place] [address] | | | | + + + + + + | MCH | 32.4Comment: Testing | 27.0 - 34.0 pg | EXTERNAL | | | | performed at [facility], [address] | | LAB | | | | [address], | | | | | | [place] [address] | | | | + + + + + + | MCHC | 33.3Comment: Testing | 32.0 - 35.5 | EXTERNAL | | | | performed at [facility], [address] | g/dL | LAB | | | | [address], | | | | | | [place] [address] | | | | + + + + + + | RDW-CV | 44.2Comment: Testing | 37 - 53 fl | EXTERNAL | | | | performed at [facility], [address] | | LAB | | | | [address], | | | | | | [place] [address] | | | | + + + + + + | Platelet | 140 (L)Comment: Testing | 150 - 400 K/uL | EXTERNAL | | | Count | performed at [facility], [address] | | LAB | | | Plasma | [address], | | | | | | [place] [address] | | | | + + + + + + | MPV | 8.6Comment: Testing | fl | EXTERNAL | | | | performed at [facility], [address] | | LAB | | | | [address], | | | | | | [place] [address] | | | | + + + + + + | Differentia | AUTOMATEDComment: | | EXTERNAL | | | l Type | Testing performed at | | LAB | | | | [facility], [address] | | | | | | [place] | | | | | | [address] | | | | + + + + + + | % Segmented | 46.5Comment: Testing | % | EXTERNAL | | | | performed at [facility], [address] | | LAB | | | Neutrophils | [address], | | | | | | [place] [address] | | | | + + + + + + | % | 33.1Comment: Testing | % | EXTERNAL | | | Lymphocytes | performed at [facility], [address] | | LAB | | | | [address], | | | | | | [place] [address] | | | | + + + + + + | % Monocytes | 12.6Comment: Testing | % | EXTERNAL | | | | performed at [facility], [address] | | LAB | | | | [address], | | | | | | [place], [place] [address] | | | | + + + + + + | % | 6.9Comment: Testing | % | EXTERNAL | | | Eosinophils | performed at [facility], [address] | | LAB | | | | [address], | | | | | | [place] [address] | | | | + + + + + + | % Basophils | 0.9Comment: Testing | % | EXTERNAL | | | | performed at [facility], [address] | | LAB | | | | [address], | | | | | | [place] [address] | | | | + + + + + + | Absolute | 3.3Comment: Testing | 1.9 - 7.4 K/uL | EXTERNAL | | | Segmented | performed at [facility], [address] | | LAB | | | Neutrophils | [address], | | | | | | [place] [address] | | | | + + + + + + | Absolute | 2.4Comment: Testing | 1.0 - 3.9 K/uL | EXTERNAL | | | Lymphocytes | performed at [facility], [address] | | LAB | | | | [address], | | | | | | [place] [address] | | | | + + + + + + | Absolute | 0.9 (H)Comment: Testing | 0 - 0.8 K/uL | EXTERNAL | | | Monocytes | performed at [facility], [address] | | LAB | | | | [address], | | | | | | [place] [address] | | | | + + + + + + | Absolute | 0.5Comment: Testing | 0 - 0.5 K/uL | EXTERNAL | | | Eosinophils | performed at [facility], [address] | | LAB | | | [address], | | | | | | [place] [address] | | | | + + + + + + | Absolute | 0.1Comment: Testing | 0 - 0.1 K/uL | EXTERNAL | | | Basophils | performed at [facility], [address] | | LAB | | | | [address], | | | | | | [place] [address] | | | | + + + + + + + + | Specimen | + + | Blood specimen | | (specimen) | + + + +---------+ + + | Performing | Address | City/State/Zipcode | Phone Number | | Organization | | | | + +---------+ + + | EXTERNAL LAB | | | | + +---------+ + + Phosphorus (10/03/2013 4:10 AM PDT) + + + + + + | Component | Value | Ref Range | Performed | Pathologist | | | | | At | Signature | + + + + + + | PHOSPHORUS | 3.0Comment: Testing | 2.3 - 4.8 mg/dL | EXTERNAL | | | | performed at [facility], [address] | | LAB | | | | [address], | | | | | | [place] [address] | | | | + + + + + + + + | Specimen | + + | Blood specimen | | (specimen) | + + + +---------+ + + | Performing | Address | City/State/Zipcode | Phone Number | | Organization | | | | + +---------+ + + | EXTERNAL LAB | | | | + +---------+ + + Magnesium (10/03/2013 4:10 AM PDT) + + + + + + | Component | Value | Ref Range | Performed | Pathologist | | | | | At | Signature | + + + + + + | Magnesium | 1.5 (L)Comment: Testing | 1.7 - 2.4 mg/dL | EXTERNAL | | | | performed at [facility], [address] | | LAB | | | | [address], | | | | | | [place] [address] | | | | + + + [...] + +---------+ + + Basic Metabolic Panel (10/03/2013 4:10 AM PDT) + + + + + + | Component | Value | Ref Range | Performed | Pathologist | | | | | At | Signature | + + + + + + | Na | 141Comment: Testing | 135 - 143 | EXTERNAL | | | | performed at [facility], [address] | mmol/L | LAB | | | | [address], | | | | | | [place] [address] | | | | + + + + + + | K | 4.3Comment: Testing | 3.5 - 4.9 | EXTERNAL | | | | performed at [facility], [address] | mmol/L | LAB | | | | [address], | | | | | | [place] [address] | | | | + + + + + + | Cl | 112 (H)Comment: Testing | 99 - 109 mmol/L | EXTERNAL | | | | performed at [facility], [address] | | LAB | | | | [address], | | | | | | [place] [address] | | | | + + + + + + | CO2 | 23Comment: Testing | 23 - 32 mmol/L | EXTERNAL | | | | performed at [facility], [address] | | LAB | | | | [address], | | | | | | [place] [address] | | | | + + + + + + | Anion Gap | 10Comment: Testing | 5 - 20 mmol/L | EXTERNAL | | | | performed at [facility], [address] | | LAB | | | | [address], | | | | | | [place] [address] | | | | + + + + + + | Glucose, | 100 (H)Comment: Testing | 65 - 99 mg/dL | EXTERNAL | | | Fasting | performed at [facility], [address] | | LAB | | | | [address], | | | | | | [place] [address] | | | | + + + + + + | BUN | 31 (H)Comment: Testing | 8 - 25 mg/dL | EXTERNAL | | | | performed at [facility], [address] | | LAB | | | | [address], | | | | | | [place] [address] | | | | + + + + + + | Creatinine | 1.80 (H)Comment: Testing | 0.50 - 1.00 | EXTERNAL | | | | performed at [facility], [address] | mg/dL | LAB | | | | [address], | | | | | | [place] [address] | | | | + + + + + + | BUN/Creatin | 17Comment: Testing | | EXTERNAL | | | ine Ratio | performed at [facility], [address] | | LAB | | | | [address], | | | | | | [place] [address] | | | | + + + + + + | Calcium | 8.9Comment: Testing | 8.5 - 10.2 | EXTERNAL | | | | performed at [facility], [address] | mg/dL | LAB | | | | [facility], | | | | | | [place] [address] | | | | + + + + + + | Estimated | 29 (L)Comment: GFR <60: | mL/min/1.73m2 | EXTERNAL [...] W | | | | | | [facility], | | | | | | [place] [address] | | | | + + + + + + + + | Specimen | + + | Blood specimen | | (specimen) | + + + +---------+ + + | Performing | Address | City/State/Zipcode | Phone Number | | Organization | | | | + +---------+ + + | EXTERNAL LAB | | | | + +---------+ + + POC Glucose (10/02/2013 9:13 PM PDT) + + + + + + | Component | Value | Ref Range | Performed | Pathologist | | | | | At | Signature | + + + + + + | Glucose, | 117 (H)Comment: Testing | 65 - 99 mg/dL | EXTERNAL | | | Fingerstick | performed at [facility];[address] | | LAB | | | | [address];[place], [place] | | | | | | [address] | | | | + + + + + + + + | Specimen | + + | | + + + +---------+ + + | Performing | Address | City/State/Zipcode | Phone Number | | Organization | | | | + +---------+ + + | EXTERNAL LAB | | | | + +---------+ + + POC Glucose (10/02/2013 4:03 PM PDT) + + + + + + | Component | Value | Ref Range | Performed | Pathologist | | | | | At | Signature | + + + + + + | Glucose, | 197 (H)Comment: Testing | 65 - 99 mg/dL | EXTERNAL | | | Fingerstick | performed at [facility];[address] | | LAB | | | | [address];[place], [place] | | | | | | [address] | | | | + + + + + + + + | Specimen | + + | | + + + +---------+ + + | Performing | Address | City/State/Zipcode | Phone Number | | Organization | | | | + +---------+ + + | EXTERNAL LAB | | | | + +---------+ + + POC Glucose (10/02/2013 11:50 AM PDT) + + + + + + | Component | Value | Ref Range | Performed | Pathologist | | | | | At | Signature | + + + + + + | Glucose, | 122 (H)Comment: Testing | 65 - 99 mg/dL | EXTERNAL | | | Fingerstick | performed at [facility];[address] | | LAB | | | | [address];[place] | | | | | | [address] | | | | + + + + + + + + | Specimen | + + | | + + + +---------+ + + | Performing | Address | City/State/Zipcode | Phone Number | | Organization | | | | + +---------+ + + | EXTERNAL LAB | | | | + +---------+ + + POC Glucose (10/02/2013 4:50 AM PDT) + + + + + + | Component | Value | Ref Range | Performed | Pathologist | | | | | At | Signature | + + + + + + | Glucose, | 101 (H)Comment: Testing | 65 - 99 mg/dL | EXTERNAL | | | Fingerstick | performed at [facility];[address] | | LAB | | | | [address];[place], [place] | | | | | | [address] | | | | + + + + + + + + | Specimen | + + | | + + + +---------+ + + | Performing | Address | City/State/Zipcode | Phone Number | | Organization | | | | + +---------+ + + | EXTERNAL LAB | | | | + +---------+ + + External Lab: CBC (10/02/2013 4:40 AM PDT) + + + + + + | Component | Value | Ref Range | Performed | Pathologist | | | | | At | Signature | + + + + + + | WBC | 7.0Comment: Testing | 3.8 - 11.0 K/uL | EXTERNAL | | | | performed at [facility], [address] | | LAB | | | | [address], | | | | | | [place] [address] | | | | + + + + + + | RED CELL | 3.87Comment: Testing | 3.70 - 5.10 | EXTERNAL | | | COUNT | performed at [facility], [address] | M/uL | LAB | | | | [address], | | | | | | [place] [address] | | | | + + + + + + | Hgb | 12.4Comment: Testing | 11.3 - 15.5 | EXTERNAL | | | | performed at [facility], [address] | g/dL | LAB | | | | [address], | | | | | | [place] [address] | | | | + + + + + + | Hematocrit, | 37.3Comment: Testing | 34.0 - 46.0 % | EXTERNAL | | | POC | performed at [facility], [address] | | LAB | | | | [address], | | | | | | [place] [address] | | | | + + + + + + | MCV | 96.4Comment: Testing | 80.0 - 100.0 fl | EXTERNAL | | | | performed at [facility], [address] | | LAB | | | | [address], | | | | | | [place] [address] | | | | + + + + + + | MCH | 32.1Comment: Testing | 27.0 - 34.0 pg | EXTERNAL | | | | performed at [facility], [address] | | LAB | | | | [address], | | | | | | [place] [address] | | | | + + + + + + | MCHC | 33.3Comment: Testing | 32.0 - 35.5 | EXTERNAL | | | | performed at [facility], [address] | g/dL | LAB | | | | [address], | | | | | | [place] [address] | | | | + + + + + + | RDW-CV | 44.6Comment: Testing | 37 - 53 fl | EXTERNAL | | | | performed at [facility], [address] | | LAB | | | | [address], | | | | | | [place] [address] | | | | + + + + + + | Platelet | 153Comment: Testing | 150 - 400 K/uL | EXTERNAL | | | Count | performed at [facility], [address] | | LAB | | | Plasma | [address], | | | | | | [place] [address] | | | | + + + + + + | MPV | 8.6Comment: Testing | fl | EXTERNAL | | | | performed at [facility], [address] | | LAB | | | | [address], | | | | | | [place] [address] | | | | + + + + + + | Differentia | AUTOMATEDComment: | | EXTERNAL | | | l Type | Testing performed at | | LAB | | | | [facility], [address] | | | | | | [place] | | | | | | [address] | | | | + + + + + + | % Segmented | 45.8Comment: Testing | % | EXTERNAL | | | | performed at [facility], [address] | | LAB | | | Neutrophils | [address], | | | | | | [place] [address] | | | | + + + + + + | % | 34.8Comment: Testing | % | EXTERNAL | | | Lymphocytes | performed at [facility], [address] | | LAB | | | | [address], | | | | | | [place] [address] | | | | + + + + + + | % Monocytes | 13.3Comment: Testing | % | EXTERNAL | | | | performed at [facility], [address] | | LAB | | | | [address], | | | | | | [place] [address] | | | | + + + + + + | % | 5.1Comment: Testing | % | EXTERNAL | | | Eosinophils | performed at [facility], [address] | | LAB | | | | [address], | | | | | | [place] [address] | | | | + + + + + + | % Basophils | 1.0Comment: Testing | % | EXTERNAL | | | | performed at [facility], [address] | | LAB | | | | [address], | | | | | | [place] [address] | | | | + + + + + + | Absolute | 3.2Comment: Testing | 1.9 - 7.4 K/uL | EXTERNAL | | | Segmented | performed at [facility], [address] | | LAB | | | Neutrophils | [address], | | | | | | [place] [address] | | | | + + + + + + | Absolute | 2.4Comment: Testing | 1.0 - 3.9 K/uL | EXTERNAL | | | Lymphocytes | performed at [facility], [address] | | LAB | | | | [address], | | | | | | [place], [place] [address] | | | | + + + + + + | Absolute | 0.9 (H)Comment: Testing | 0 - 0.8 K/uL | EXTERNAL | | | Monocytes | performed at [facility], [address] | | LAB | | | | [address], | | | | | | [place] [address] | | | | + + + + + + | Absolute | 0.4Comment: Testing | 0 - 0.5 K/uL | EXTERNAL | | | Eosinophils | performed at [facility], [address] | | LAB | | | | [address], | | | | | | [place] [address] | | | | + + + + + + | Absolute | 0.1Comment: Testing | 0 - 0.1 K/uL | EXTERNAL | | | Basophils | performed at [facility], [address] | | LAB | | | | [address], | | | | | | [place] [address] | | | | + + + + + + + + | Specimen | + + | Blood specimen | | (specimen) | + + + +---------+ + + | Performing | Address | City/State/Zipcode | Phone Number | | Organization | | | | + +---------+ + + | EXTERNAL LAB | | | | + +---------+ + + Phosphorus (10/02/2013 4:40 AM PDT) + + + + + + | Component | Value | Ref Range | Performed | Pathologist | | | | | At | Signature | + + + + + + | PHOSPHORUS | 3.7Comment: Testing | 2.3 - 4.8 mg/dL | EXTERNAL | | | | performed at [facility], [address] | | LAB | | | | [address], | | | | | | [place] [address] | | | | + + + + + + + + | Specimen | + + | Blood specimen | | (specimen) | + + + +---------+ + + | Performing | Address | City/State/Zipcode | Phone Number | | Organization | | | | + +---------+ + + | EXTERNAL LAB | | | | + +---------+ + + Magnesium (10/02/2013 4:40 AM PDT) + + + + + + | Component | Value | Ref Range | Performed | Pathologist | | | | | At | Signature | + + + + + + | Magnesium | 1.8Comment: Testing | 1.7 - 2.4 mg/dL | EXTERNAL | | | | performed at [facility], [address] | | LAB | | | | [address], | | | | | | [place] [address] | | | | + + + [...] + +---------+ + + Basic Metabolic Panel (10/02/2013 4:40 AM PDT) + + + + [...] | | | | | [place] [address] | | | | + + + + + + | K | 4.2Comment: Testing | 3.5 - 4.9 | EXTERNAL | | | | performed at [facility], [address] | mmol/L | LAB | | | | [address], | | | | | | [place] [address] | | | | + + + + + + | Cl | 111 (H)Comment: Testing | 99 - 109 mmol/L | EXTERNAL | | | | performed at [facility], [address] | | LAB | | | | [address], | | | | | | [place] [address] | | | | + + + + + + | CO2 | 22 (L)Comment: Testing | 23 - 32 mmol/L | EXTERNAL | | | | performed at [facility], [address] | | LAB | | | | [address], | | | | | | [place] [address] | | | | + + + + + + | Anion Gap | 9Comment: Testing | 5 - 20 mmol/L | EXTERNAL | | | | performed at [facility], [address] | | LAB | | | | [address], | | | | | | [place] [address] | | | | + + + + + + | Glucose, | 101 (H)Comment: Testing | 65 - 99 mg/dL | EXTERNAL | | | Fasting | performed at [facility], [address] | | LAB | | | | [address], | | | | | | [place] [address] | | | | + + + + + + | BUN | 50 (H)Comment: Testing | 8 - 25 mg/dL | EXTERNAL | | | | performed at [facility], [address] | | LAB | | | | [address], | | | | | | [place] [address] | | | | + + + + + + | Creatinine | 2.27 (H)Comment: Testing | 0.50 - 1.00 | EXTERNAL | | | | performed at [facility], [address] | mg/dL | LAB | | | | [address], | | | | | | [place] [address] | | | | + + + + + + | BUN/Creatin | 22Comment: Testing | | EXTERNAL | | | ine Ratio | performed at [facility], [address] | | LAB | | | | [address], | | | | | | [place] [address] | | | | + + + + + + | Calcium | 10.1Comment: Testing | 8.5 - 10.2 | EXTERNAL | | | | performed at [facility], [address] | mg/dL | LAB | | | | [address], | | | | | | [place] [address] | | | | + + + + + + | Estimated | 22 (L)Comment: GFR <60: | mL/min/1.73m2 | EXTERNAL [...] | | | | | | at [facility], [address] | | | | | | [address], | | | | | | [place] [address] | | | | + + + + + + + + | Specimen | + + | Blood specimen | | (specimen) | + + + +---------+ + + | Performing | Address | City/State/Zipcode | Phone Number | | Organization | | | | + +---------+ + + | EXTERNAL LAB | | | | + +---------+ + + POC Glucose (10/01/2013 9:08 PM PDT) + + + + + + | Component | Value | Ref Range | Performed | Pathologist | | | | | At | Signature | + + + + + + | Glucose, | 91Comment: Testing | 65 - 99 mg/dL | EXTERNAL | | | Fingerstick | performed at [facility] | | LAB | | | | [place] [address];[place] | | | | | | [address] | | | | + + + + + + + + | Specimen | + + | | + + + +---------+ + + | Performing | Address | City/State/Zipcode | Phone Number | | Organization | | | | + +---------+ + + | EXTERNAL LAB | | | | + +---------+ + + POC Glucose (10/01/2013 4:06 PM PDT) + + + + + + | Component | Value | Ref Range | Performed | Pathologist | | | | | At | Signature | + + + + + + | Glucose, | 161 (H)Comment: Testing | 65 - 99 mg/dL | EXTERNAL | | | Fingerstick | performed at [facility] [place];[address] | | LAB | | | | [place] | | | | | | [address] | | | | + + + + + + + + | Specimen | + + | | + + + +---------+ + + | Performing | Address | City/State/Zipcode | Phone Number | | Organization | | | | + +---------+ + + | EXTERNAL LAB | | | | + +---------+ + + POC Glucose (10/01/2013 11:57 AM PDT) + + + + + + | Component | Value | Ref Range | Performed | Pathologist | | | | | At | Signature | + + + + + + | Glucose, | 123 (H)Comment: Testing | 65 - 99 mg/dL | EXTERNAL | | | Fingerstick | performed at [facility] [place];[address] | | LAB | | | | [place] [address];[place] | | | | | | [address] | | | | + + + + + + + + | Specimen | + + | | + + + +---------+ + + | Performing | Address | City/State/Zipcode | Phone Number | | Organization | | | | + +---------+ + + | EXTERNAL LAB | | | | + +---------+ + + Urea Nitrogen, Urine, Random (10/01/2013 8:45 AM PDT) + + + + + + | Component | Value | Ref Range | Performed | Pathologist | | | | | At | Signature | + + + + + + | Urea | 677.0Comment: Testing | mg/dL | EXTERNAL | | | Nitrogen, | performed at [facility], [address] | | LAB | | | Urine | [address], | | | | | | [place] [address] | | | | + + + + + + + + | Specimen | + + | | + + + +---------+ + + | Performing | Address | City/State/Zipcode | Phone Number | | Organization | | | | + +---------+ + + | EXTERNAL LAB | | | | + +---------+ + + Eosinophil Smear, Urine (10/01/2013 8:45 AM PDT) + + + + + + | Component | Value | Ref Range | Performed | Pathologist | | | | | At | Signature | + + + + + + | Eosinophil, | NO EOSINOPHILS | % | EXTERNAL | | | Urine | SEENComment: Testing | | LAB | | | | performed at [facility], [address] | | | | | | [facility], | | | | | | [place] [address] | | | | + + + + + + + + | Specimen | + + | | + + + +---------+ + + | Performing | Address | City/State/Zipcode | Phone Number | | Organization | | | | + +---------+ + + | EXTERNAL LAB | | | | + +---------+ + + Urinalysis with Microscopic with Culture if Indicated (10/01/2013 8:45 AM PDT) + + + + + + | Component | Value | Ref Range | Performed | Pathologist | | | | | At | Signature | + + + + + + | Color | YELLOWComment: Testing | | EXTERNAL | | | | performed at [facility], [address] | | LAB | | | | [address], | | | | | | [place] [address] | | | | + + + + + + | Clarity | CLOUDYComment: Testing | | EXTERNAL | | | | performed at [facility], [address] | | LAB | | | | [address], | | | | | | [place] [address] | | | | + + + + + + | Specific | 1.015Comment: Testing | 1.002 - 1.030 | EXTERNAL | | | Mather | performed at [facility], [address] | | LAB | | | | [address], | | | | | | [place] [address] | | | | + + + + + + | Leukocyte | MODERATE (A)Comment: | | EXTERNAL | | | Esterase, | Testing performed at | | LAB | | | Urine | [facility], [address] | | | | | | [place] | | | | | | [address] | | | | + + + + + + | Nitrite, | NEGATIVEComment: Testing | | EXTERNAL | | | Urine | performed at [facility], [address] | | LAB | | | | [address], | | | | | | [place] [address] | | | | + + + + + + | Urobilinoge | 0.2Comment: Testing | mg/dL | EXTERNAL | | | n, Urine | performed at [facility], [address] | | LAB | | | | [address], | | | | | | [place] [address] | | | | + + + + + + | Protein, | 30 (A)Comment: Testing | mg/dL | EXTERNAL | | | Urine | performed at [facility], [address] | | LAB | | | | [address], | | | | | | [place] [address] | | | | + + + + + + | pH, Urine | 5.5Comment: Testing | 5.0 - 8.0 | EXTERNAL | | | | performed at [facility], [address] | | LAB | | | | [address], | | | | | | [place] [address] | | | | + + + + + + | Blood, | MODERATE (A)Comment: | | EXTERNAL | | | Urine | Testing performed at | | LAB | | | | [facility], [address] | | | | | | [place] | | | | | | [address] | | | | + + + + + + | Ketones | NEGATIVEComment: Testing | mg/dL | EXTERNAL | | | | performed at [facility], [address] | | LAB | | | | [address], | | | | | | [place] [address] | | | | + + + + + + | Bilirubin, | NEGATIVEComment: Testing | | EXTERNAL | | | Urine | performed at [facility], [address] | | LAB | | | | [address], | | | | | | [place] [address] | | | | + + + + + + | Glucose, | NEGATIVEComment: Testing | mg/dL | EXTERNAL | | | Urine | performed at [facility], [address] | | LAB | | | | [address], | | | | | | [place] [address] | | | | + + + + + + | WBC, UA | 26-50Comment: Testing | 0 - 5 /hpf | EXTERNAL | | | | performed at [facility], [address] | | LAB | | | | [address], | | | | | | [place], [place] [address] | | | | + + + + + + | RBC, UA | 16-25Comment: Testing | 0 - 5 /hpf | EXTERNAL | | | | performed at [facility], [address] | | LAB | | | | [address], | | | | | | [place], [place] [address] | | | | + + + + + + | Epithelial | 1-5Comment: Testing | /lpf | EXTERNAL | | | Cells | performed at [facility], [address] | | LAB | | | | [address], | | | | | | [place] [address] | | | | + + + + + + | Bacteria, | NONE SEENComment: | | EXTERNAL | | | UA | CULTURE TO FOLLOWTesting | | LAB | | | | performed at [facility], [address] | | | | | [address], | | | | | | [place] [address] | | | | + + + + + + | HYALINE | 0-2Comment: Testing | | EXTERNAL | | | CASTS UA | performed at [facility], [address] | | LAB | | | | [address], | | | | | | [place] [address] | | | | + + + + + + + + | Specimen | + + | | + + + +---------+ + + | Performing | Address | City/State/Zipcode | Phone Number | | Organization | | | | + +---------+ + + | EXTERNAL LAB | | | | + +---------+ + + Culture, Urine (10/01/2013 8:45 AM PDT) + + | Specimen | + + | | + + + + + | Narrative | Performed At | + + + | Specimen Description URINE, COLLECTION NOT | EXTERNAL LAB | | GIVEN SPECIAL REQUESTS REFLEX FROM [facility] | | | CULTURE >100,000 CFU/ML | | | ENTEROCOCCUS | | | FAECALISAbnormal REPORT STATUS FINAL | | | 10/03/2013 | | | Suscepibility for - ENTEROCOCCUS FAECALIS Ampicillin | | | SUSCEPTIBLESensitive Penicillin G | | | SUSCEPTIBLESensitive Gentamicin Synergy | | | SUSCEPTIBLESensitive Levofloxacin | | | SUSCEPTIBLESensitive Nitrofurantoin | | | SUSCEPTIBLESensitive Streptomycin Synergy RESISTANT | | | Resistant Tetracycline RESISTANT Resistant | | | Vancomycin SUSCEPTIBLESensitive | | + + + + +---------+ + + | Performing | Address | City/State/Zipcode | Phone Number | | Organization | | | | + +---------+ + + | EXTERNAL LAB | | | | + +---------+ + + Sodium, Urine, Random (10/01/2013 8:44 AM PDT) + + + + + + | Component | Value | Ref Range | Performed | Pathologist | | | | | At | Signature | + + + + + + | Sodium, | 50 (L)Comment: Testing | 90 - 104 mmol/L | EXTERNAL | | | Urine | performed at [facility], [address] | | LAB | | | Random | [address] | | | | | | [place] [address] | | | | + + + + + + + + | Specimen | + + | Urine specimen | | (specimen) | + + + +---------+ + + | Performing | Address | City/State/Zipcode | Phone Number | | Organization | | | | + +---------+ + + | EXTERNAL LAB | | | | + +---------+ + + Creatinine, Urine, Random (10/01/2013 8:44 AM PDT) + + + + + + | Component | Value | Ref Range | Performed | Pathologist | | | | | At | Signature | + + + + + + | Creatinine, | 71.9Comment: Testing | mg/dL | EXTERNAL | | | Urine | performed at [facility], [address] | | LAB | | | | [address], | | | | | | [place] [address] | | | | + + + + + + + + | Specimen | + + | Urine specimen | | (specimen) | + + + +---------+ + + | Performing | Address | City/State/Zipcode | Phone Number | | Organization | | | | + +---------+ + + | EXTERNAL LAB | | | | + +---------+ + + US Renal Limited (10/01/2013 7:43 AM PDT) + + | Specimen | + + | | + + + + + | Impressions | Performed At | + + + | 1. Bilateral renal cysts. 2. No shadowing stones or | | | hydronephrosis. Electronically signed by Juan Flores MD on | | | 10/01/2013 9:55 AM | | + + + + + + | Narrative | Performed At | + + + | [facility] US KIDNEYS AND BLADDER 10/01/2013 7:43 AM HISTORY: | | | 83 years. Female. Acute renal injury TECHNIQUE: Imaging | | | performed using a 4-MHz curved array transducer. COMPARISON: | | | None. FINDINGS: Right Kidney: 8.6 x 4.1 x 4.4 cm. Normal | | | echogenicity and cortical thickness. No solid mass is seen. A | | | solitary simple cyst is noted arising from the inferior pole = 2.3 x | | | 2.2 x 2.1 cm. No renal parenchymal or collecting system calculi are | | | seen. No hydronephrosis noted. Normal blood flow to the renal | | | hilum seen with color flow imaging. Left Kidney: 9.6 x 5.4 x 5.3 | | | cm. Normal echogenicity and cortical thickness. No solid mass is | | | seen. A solitary simple cyst is noted measuring 3.1 x 2.3 x 2.1 cm. | | | No renal parenchymal or collecting system calculi are seen. No | | | hydronephrosis noted. Normal blood flow to the renal hilum seen | | | with color flow imaging. Indwelling catheter is present in the | | | bladder is collapsed and not sonographically able to be interrogated | | | | | + + + + + | Procedure Note | + + | Ross, Rad Conversion - 11/26/2018 3:41 PM PDT TAMIKO PRICEUS KIDNEYS AND | | BLADDER10/01/2013 7:43 AM HISTORY:83 years. Female. Acute renal injury | | TECHNIQUE:Imaging performed using a 4-MHz curved array transducer. COMPARISON:None. | | FINDINGS:Right Kidney: 8.6 x 4.1 x 4.4 cm. Normal echogenicity and cortical thickness. | | No solid mass is seen. A solitary simple cyst is noted arising from the inferior pole | | = 2.3 x 2.2 x 2.1 cm. No renal parenchymal or collecting system calculi are seen. No | | hydronephrosis noted. Normal blood flow to the renal hilum seen with color flow | | imaging. Left Kidney: 9.6 x 5.4 x 5.3 cm. Normal echogenicity and cortical thickness. | | No solid mass is seen. A solitary simple cyst is noted measuring 3.1 x 2.3 x 2.1 cm. | | No renal parenchymal or collecting system calculi are seen. No hydronephrosis noted. | | Normal blood flow to the renal hilum seen with color flow imaging. Indwelling catheter | | is present in the bladder is collapsed and not sonographically able to be interrogated | | IMPRESSION: 1. Bilateral renal cysts.2. No shadowing stones or hydronephrosis. | | | |Right Kidney: 8.6 x 4.1 x 4.4 cm. Normal echogenicity and cortical thickness. No solid ma ss is seen. A solitary simple cyst is noted arising from the inferior pole = 2.3 x 2.2 x 2. 1 cm. No renal parenchymal or collecting system calculi are seen. No | |hydronephrosis noted. Normal blood flow to the renal hilum seen with color flow imaging. | | | |Left Kidney: 9.6 x 5.4 x 5.3 cm. Normal echogenicity and cortical thickness. No solid mas s is seen. A solitary simple cyst is noted measuring 3.1 x 2.3 x 2.1 cm. No renal parenchy mal or collecting system | |calculi are seen. No hydronephrosis noted. | |Normal blood flow to the renal hilum seen with color flow imaging. | | | |Indwelling catheter is present in the bladder is collapsed and not sonographically able to be interrogated | | | |IMPRESSION: | |1. Bilateral renal cysts. | |2. No shadowing stones or hydronephrosis. | | | | | + + Troponin I (10/01/2013 5:45 AM PDT) + + + + + + | Component | Value | Ref Range | Performed | Pathologist | | | | | At | Signature | + + + + + + | Troponin I, | <0.02Comment: 0.00 to | 0.00 - 0.10 | EXTERNAL | | | Qual | 0.10 CONSISTENT WITH | ng/mL | LAB | | | | NORMAL POPULATION0.11 to | | | | | | 0.60 CONSISTENT WITH | | | | | | INCREASED RISK FOR | | | | | | ADVERSE OUTCOMES> 0.60 | | | | | | CONSISTENT | | | | | | WITH WHO CRITERIA FOR | | | | | | ACUTE [place] Testing | | | | | | performed at [facility];[address] | | | | | | [address] [facility];[place], [place] | | | | | | [address] | | | | + + + [...] + +---------+ + + External Lab: CBC (10/01/2013 5:45 AM PDT) + + + + + + | Component | Value | Ref Range | Performed | Pathologist | | | | | At | Signature | + + + + + + | WBC | 7.5Comment: Testing | 3.8 - 11.0 K/uL | EXTERNAL | | | | performed at [facility], [address] | | LAB | | | | [address], | | | | | | [place] [address] | | | | + + + + + + | RED CELL | 4.09Comment: Testing | 3.70 - 5.10 | EXTERNAL | | | COUNT | performed at [facility], [address] | M/uL | LAB | | | | [address], | | | | | | [place] [address] | | | | + + + + + + | Hgb | 13.1Comment: Testing | 11.3 - 15.5 | EXTERNAL | | | | performed at [facility], [address] | g/dL | LAB | | | | [address], | | | | | | [place] [address] | | | | + + + + + + | Hematocrit, | 39.5Comment: Testing | 34.0 - 46.0 % | EXTERNAL | | | POC | performed at [facility], [address] | | LAB | | | | [address], | | | | | | [place] [address] | | | | + + + + + + | MCV | 96.4Comment: Testing | 80.0 - 100.0 fl | EXTERNAL | | | | performed at [facility], [address] | | LAB | | | | [address], | | | | | | [place] [address] | | | | + + + + + + | MCH | 32.0Comment: Testing | 27.0 - 34.0 pg | EXTERNAL | | | | performed at [facility], [address] | | LAB | | | | [address], | | | | | | [place] [address] | | | | + + + + + + | MCHC | 33.2Comment: Testing | 32.0 - 35.5 | EXTERNAL | | | | performed at [facility], [address] | g/dL | LAB | | | | [address], | | | | | | [place] [address] | | | | + + + + + + | RDW-CV | 45.5Comment: Testing | 37 - 53 fl | EXTERNAL | | | | performed at [facility], [address] | | LAB | | | | [address], | | | | | | [place] [address] | | | | + + + + + + | Platelet | 165Comment: Testing | 150 - 400 K/uL | EXTERNAL | | | Count | performed at [facility], [address] | | LAB | | | Plasma | [address], | | | | | | [place] [address] | | | | + + + + + + | MPV | 8.5Comment: Testing | fl | EXTERNAL | | | | performed at [facility], [address] | | LAB | | | | [address], | | | | | | [place] [address] | | | | + + + + + + | Differentia | AUTOMATEDComment: | | EXTERNAL | | | l Type | Testing performed at | | LAB | | | | [facility], [address] | | | | | | [place] | | | | | | [address] | | | | + + + + + + | % Segmented | 46.7Comment: Testing | % | EXTERNAL | | | | performed at [facility], [address] | | LAB | | | Neutrophils | [address], | | | | | | [place] [address] | | | | + + + + + + | % | 34.8Comment: Testing | % | EXTERNAL | | | Lymphocytes | performed at [facility], [address] | | LAB | | | | [address], | | | | | | [place] [address] | | | | + + + + + + | % Monocytes | 12.8Comment: Testing | % | EXTERNAL | | | | performed at [facility], [address] | | LAB | | | | [address], | | | | | | [place] [address] | | | | + + + + + + | % | 4.5Comment: Testing | % | EXTERNAL | | | Eosinophils | performed at [facility], [address] | | LAB | | | | [address], | | | | | | [place] [address] | | | | + + + + + + | % Basophils | 1.2Comment: Testing | % | EXTERNAL | | | | performed at [facility], [address] | | LAB | | | | [address], | | | | | | [place] [address] | | | | + + + + + + | Absolute | 3.5Comment: Testing | 1.9 - 7.4 K/uL | EXTERNAL | | | Segmented | performed at [facility], [address] | | LAB | | | Neutrophils | [address], | | | | | | [place] [address] | | | | + + + + + + | Absolute | 2.6Comment: Testing | 1.0 - 3.9 K/uL | EXTERNAL | | | Lymphocytes | performed at [facility], [address] | | LAB | | | | [address], | | | | | | [place] [address] | | | | + + + + + + | Absolute | 1.0 (H)Comment: Testing | 0 - 0.8 K/uL | EXTERNAL | | | Monocytes | performed at [facility], [address] | | LAB | | | | [address], | | | | | | [place] [address] | | | | + + + + + + | Absolute | 0.3Comment: Testing | 0 - 0.5 K/uL | EXTERNAL | | | Eosinophils | performed at [facility], [address] | | LAB | | | | [address], | | | | | | [place] [address] | | | | + + + + + + | Absolute | 0.1Comment: Testing | 0 - 0.1 K/uL | EXTERNAL | | | Basophils | performed at [facility], [address] | | LAB | | | | [address], | | | | | | [place] [address] | | | | + + + [...] +---------+ + + B Type Natriuretic Peptide (10/01/2013 5:45 AM PDT) + + + + + + | Component | Value | Ref Range | Performed | Pathologist | | | | | At | Signature | + + + + + + | BNP | 857 (H)Comment: Testing | 0 - 100 pg/mL | EXTERNAL | | | | performed at [facility];[address] | | LAB | | | | [address];[place] | | | | | | [address] | | | | + + + + + + + + | Specimen | + + | Blood specimen | | (specimen) | + + + +---------+ + + | Performing | Address | City/State/Zipcode | Phone Number | | Organization | | | | + +---------+ + + | EXTERNAL LAB | | | | + +---------+ + + Magnesium (10/01/2013 5:45 AM PDT) + + + + + + | Component | Value | Ref Range | Performed | Pathologist | | | | | At | Signature | + + + + + + | Magnesium | 1.7Comment: Testing | 1.7 - 2.4 mg/dL | EXTERNAL | | | | performed at [facility], [address] | | LAB | | | | [address], | | | | | | [place] [address] | | | | + + + [...] + +---------+ + + Renal Function Panel (10/01/2013 5:45 AM PDT) + + + + + [...] | | | | | [place] [address] | | | | + + + + + + | K | 4.4Comment: Testing | 3.5 - 4.9 | EXTERNAL | | | | performed at [facility], [address] | mmol/L | LAB | | | | [address], | | | | | | [place] [address] | | | | + + + + + + | Cl | 107Comment: Testing | 99 - 109 mmol/L | EXTERNAL | | | | performed at [facility], [address] | | LAB | | | | [address], | | | | | | [place] [address] | | | | + + + + + + | CO2 | 20 (L)Comment: Testing | 23 - 32 mmol/L | EXTERNAL | | | | performed at [facility], [address] | | LAB | | | | [address], | | | | | | [place] [address] | | | | + + + + + + | Anion Gap | 13Comment: Testing | 5 - 20 mmol/L | EXTERNAL | | | | performed at [facility], [address] | | LAB | | | | [address], | | | | | | [place] [address] | | | | + + + + + + | Glucose, | 107 (H)Comment: Testing | 65 - 99 mg/dL | EXTERNAL | | | Fasting | performed at [facility], [address] | | LAB | | | | [address], | | | | | | [place] [address] | | | | + + + + + + | BUN | 66 (H)Comment: Testing | 8 - 25 mg/dL | EXTERNAL | | | | performed at [facility], [address] | | LAB | | | | [address], | | | | | | [place] [address] | | | | + + + + + + | Creatinine | 3.00 (H)Comment: Testing | 0.50 - 1.00 | EXTERNAL | | | | performed at [facility], [address] | mg/dL | LAB | | | | [address], | | | | | | [place] [address] | | | | + + + + + + | Calcium | 9.2Comment: Testing | 8.5 - 10.2 | EXTERNAL | | | | performed at [facility], [address] | mg/dL | LAB | | | | [address], | | | | | | [place] [address] | | | | + + + + + + | Albumin | 3.7Comment: Testing | 3.3 - 4.8 g/dL | EXTERNAL | | | | performed at [facility], [address] | | LAB | | | | [address], | | | | | | [place] [address] | | | | + + + + + + | PHOSPHORUS | 4.6Comment: Testing | 2.3 - 4.8 mg/dL | EXTERNAL | | | | performed at [facility], [address] | | LAB | | | | [address], | | | | | | [place] [address] | | | | + + + + + + | Estimated | 16 (L)Comment: GFR <60: | mL/min/1.73m2 | EXTERNAL [...] [address] | | | | | [address], | | | | | | [place] [address] | | | | + + + + + + + + | Specimen | + + | | + + + +---------+ + + | Performing | Address | City/State/Zipcode | Phone Number | | Organization | | | | + +---------+ + + | EXTERNAL LAB | | | | + +---------+ + + POC Glucose (10/01/2013 5:18 AM PDT) + + + + + + | Component | Value | Ref Range | Performed | Pathologist | | | | | At | Signature | + + + + + + | Glucose, | 101 (H)Comment: Testing | 65 - 99 mg/dL | EXTERNAL | | | Fingerstick | performed at [facility];[address] | | LAB | | | | [address];[place], [place] | | | | | | [address] | | | | + + + + + + + + | Specimen | + + | | + + + +---------+ + + | Performing | Address | City/State/Zipcode | Phone Number | | Organization | | | | + +---------+ + + | EXTERNAL LAB | | | | + +---------+ + + Troponin I (09/30/2013 11:58 PM PDT) + + + + + + | Component | Value | Ref Range | Performed | Pathologist | | | | | At | Signature | + + + + + + | Troponin I, | 0.023Comment: 0.00 to | 0.00 - 0.10 | EXTERNAL | | | Qual | 0.10 CONSISTENT WITH | ng/mL | LAB | | | | NORMAL POPULATION0.11 to | | | | | | 0.60 CONSISTENT WITH | | | | | | INCREASED RISK FOR | | | | | | ADVERSE OUTCOMES> 0.60 | | | | | | CONSISTENT | | | | | | WITH WHO CRITERIA FOR | | | | | | ACUTE [place] Testing | | | | | | performed at [facility];[address] | | | | | | [address] [facility];[place], [place] | | | | | | [address] | | | | + + + + + + + + | Specimen | + + | Blood specimen | | (specimen) | + + + +---------+ + + | Performing | Address | City/State/Zipcode | Phone Number | | Organization | | | | + +---------+ + + | EXTERNAL LAB | | | | + +---------+ + + POC Glucose (09/30/2013 11:23 PM PDT) + + + + + + | Component | Value | Ref Range | Performed | Pathologist | | | | | At | Signature | + + + + + + | Glucose, | 146 (H)Comment: Testing | 65 - 99 mg/dL | EXTERNAL | | | Fingerstick | performed at [facility];[address] | | LAB | | | | [address] [place] | | | | | | [address] | | | | + + + + + + + + | Specimen | + + | | + + + +---------+ + + | Performing | Address | City/State/Zipcode | Phone Number | | Organization | | | | + +---------+ + + | EXTERNAL LAB | | | | + +---------+ + + XR Chest 2 Vws (09/30/2013 8:07 PM PDT) + + | Specimen | + + | | + + + + + | Impressions | Performed At | + + + | 1. There is atelectasis versus a developing process of the right | | | middle lobe. Electronically signed by Omid Hill MD on | | | 09/30/2013 8:48 PM | | + + + + + + | Narrative | Performed At | + + + | [facility] 1930 83 years Female XR CHEST 2 VIEW FRONTAL AND | | | LATERAL 09/30/2013 8:07 PM INDICATION: Shortness of breath | | | COMPARISON: 09/10/13 TECHNIQUE: Two view chest, PA and lateral | | | views FINDINGS: There is mild enlargement of the cardiac | | | silhouette which is improved in appearance from prior study. | | | Previously noted interstitial edema is resolved. There is no | | | mediastinal widening or shift. There is no pneumothorax. No pleural | | | fluid is present. Moderate osteopenia and mild degenerative disc | | | disease of the thoracic spine is present. The lungs are clear with no | | | consolidation. A band of atelectasis is demonstrated along the right | | | middle lobe. There are no pulmonary nodules. There are no acute rib | | | fractures. | | + + + + + | Procedure Note | + + | Ross, Rad Conversion - 11/26/2018 3:41 PM PDT TAIM[facility] PRICE89 years FemaleXR | | CHEST 2 VIEW FRONTAL AND LATERAL09/30/2013 8:07 PM INDICATION: Shortness of breath | | COMPARISON: 09/10/13 TECHNIQUE: Two view chest, PA and lateral views FINDINGS: There is | | mild enlargement of the cardiac silhouette which is improved in appearance from prior | | study. Previously noted interstitial edema is resolved. There is no mediastinal widening | | or shift. There is no pneumothorax. No pleural fluid is present. Moderate osteopenia | | and mild degenerative disc disease of the thoracic spine is present. The lungs are clear | | with no consolidation. A band of atelectasis is demonstrated along the right middle | | lobe. There are no pulmonary nodules. There are no acute rib fractures. IMPRESSION: 1. | | There is atelectasis versus a developing process of the right middle lobe. | | | | | |FINDINGS: There is mild enlargement of the cardiac silhouette which is improved in appearan ce from prior study. Previously noted interstitial edema is resolved. There is no mediastina l widening or shift. There is no pneumothorax. No pleural fluid is | |present. Moderate osteopenia and mild degenerative disc disease of the thoracic spine is pr esent. The lungs are clear with no consolidation. A band of atelectasis is demonstrated felicitas g the right middle lobe. There are | |no pulmonary nodules. There are no | |acute rib fractures. | | | |IMPRESSION: | |1. There is atelectasis versus a developing process of the right middle lobe. | | | | | + + documented in this encounter Visit Diagnoses + + | Diagnosis | + + | Acute kidney injury (HCC) Acute kidney failure, unspecified | + + | Hypotension, unspecified | + + | Cardiomyopathy ([facility]) Other primary cardiomyopathies | + + | DM (diabetes mellitus) ([facility]) Type II or unspecified type diabetes mellitus without | | mention of complication, not stated as uncontrolled | + + | CHF (congestive heart failure) ([facility]) Congestive heart failure, unspecified | + + | Urinary tract infection, site not specified | + + | Hypokalemia Hypopotassemia | + + | Essential hypertension, benign | + + documented in this encounter
--- OUTSIDE RECORDS SUMMARY | ~2019-03-06 | XMS | Encounter Summary ---
Demographics + + + | Address | [address] | | | [place] [address] | + + + | Home Phone | | + + + | Preferred Language | Unknown | + + + | Marital Status | | + + + | Yarsani Affiliation | 1041 | + + + | Race | Unknown | + + + | Ethnic Group | Unknown | + + + Author + + + | Author | [facility] | | | and [place] | + + + | Organization | [facility] | | | and [...] [place], [place] | | | | | [address] | | + + + + + | Rivka Palma | ECON | Unknown | | + + + + + | Geno Kendall | ECON | Unknown | | + + + + + Care Team Providers + +------+ + | Care Design Engineering Manager Name | Role | Phone | + +------+ + | Lorenzo Valdes MD | PCP | | + +------+ + Encounter Details +--------+ + + + + | Date | Type | Department | Care Team | Description | +--------+ + + + + | 10/10/ | Orders Only | [facility] | Conversion | | | 2013 | | NEPHROLOGY [place] | Transaction, | | | | | [address] [facility] | Provider Unknown | | | | | [place] | [phone] | | | | | [address] | | | | | | [phone] | | | +--------+ + + + [...] [place] | | | | | | [address] | | | | | | | [...] [place] | | | | | | [address] | | | | | | | | +--------+ + + + + documented as of this encounter Procedures + +--------+ + + + | Procedure Name | Priori | Date/Time | Associated Diagnosis | Comments | | | ty | | | | + +--------+ + + + | HEMOGLOBIN A1C | Routin | 10/10/2013 | | Results for this | | | e | 4:05 PM | | procedure are in the | | | | PDT | | results section. | + +--------+ + + + | COMPREHENSIVE | Routin | 10/10/2013 | | Results for this | | METABOLIC PANEL | e | 4:05 PM | | procedure are in the | | | | PDT | | results section. | + +--------+ + + + documented in this encounter Results Hemoglobin A1C (10/10/2013 4:05 PM PDT) + +-------+ + + + | Component | Value | Ref Range | Performed | Pathologist | | | | | At | Signature | + +-------+ + + + | Hemoglobin | 6.3 | % | EXTERNAL | | | A1c | | | LAB | | + [...] + +---------+ + + Comprehensive Metabolic Panel (10/10/2013 4:05 PM PDT) + + + + + + | Component | Value | Ref Range | Performed | Pathologist | | | | | At | Signature | + + + + + + | Glucose, | 160 (A) | 70 - 100 mg/dL | EXTERNAL | | | Fasting | | | LAB | | + + + + + + | BUN | 30 (A) | 6 - 23 mg/dL | EXTERNAL | | | | | | LAB | | + + + + + + | Creatinine | 1.63 (A) | 0.70 - 1.11 | EXTERNAL | | | | | mg/dL | LAB | | + + + + + + | BUN/Creatin | 18.4 | 6.0 - 28.6 | EXTERNAL | | | ine Ratio | | | LAB | | + + + + + + | Calcium | 9.6 | 8.4 - 10.2 | EXTERNAL | | | | | mg/dL | LAB | | + + + + + + | Protein, | 6.5 | 6.0 - 8.0 g/dL | EXTERNAL | | | Total | | | LAB | | + + + + + + | Albumin | 4.1 | 3.5 - 5.0 | EXTERNAL | | | | | | LAB | | + + + + + + | Globulin | 2.4 | 1.8 - 3.5 | EXTERNAL | | | | | | LAB | | + + + + + + | A/G Ratio | 1.7 | 1.1 - 2.4 | EXTERNAL | | | | | | LAB | | + + + + + + | Bilirubin | 0.5 | 0.0 - 1.2 mg/dL | EXTERNAL | | | Total | | | LAB | | + + + + + + | ALP, | 62 | 30 - 128 | EXTERNAL | | | External | | | LAB | | + + + + + + | ALT | 25 | 7 - 52 U/L | EXTERNAL | | | | | | LAB | | + + + + + + | AST | 23 | 13 - 39 U/L | EXTERNAL | | | | | | LAB | | + + + + + + | Na | 139 | 132 - 143 | EXTERNAL | | | | | mmol/L | LAB | | + + + + + + | K | 3.6 | 3.6 - 5.1 | EXTERNAL | | | | | mmol/L | LAB | | + + + + + + | Cl | 105 | 95 - 112 mmol/L | EXTERNAL | | | | | | LAB | | + + + + + + | CO2 | 23 | 19 - 31 mmol/L | EXTERNAL | | | | | | LAB | | + + + + + + | Anion Gap | 14.6 | 7 - 21 mmol/L | EXTERNAL | | | | | | LAB | | + + + + + + | Estimated | 30 | mg/dL | EXTERNAL | | | [...]
--- OUTSIDE RECORDS SUMMARY | ~2019-03-06 | XMS | Encounter Summary ---
Demographics + + + | Address | [address] | | | [place] [address] | + + + | Home Phone | | + + + | Preferred Language | Unknown | + + + | Marital Status | | + + + | Moravian Affiliation | 1041 | + + + | Race | Unknown | + + + | Ethnic Group | Unknown | + + + Author + + + | Author | [facility] | | | and [place] | + + + | Organization | [facility] | | | and [...] [place], [place] | | | | | [address] | | + + + + + | Rivka Palma | ECON | Unknown | | + + + + + | Geno Kendall | ECON | Unknown | | + + + + + Care Team Providers + +------+ + | Care Equipment Engineering Technician Name | Role | Phone | + +------+ + | Lorenzo Valdes MD | PCP | | + +------+ + Encounter Details +--------+ + + + + | Date | Type | Department | Care Team | Description | +--------+ + + + + | 01/09/ | Orders Only | [facility] | Godfrey Monteiro MD | | | 2013 | | NEPHROLOGY [place] | [address] [facility] | | | | | [address] [facility] | [place] | | | | | [place] | [id number] | | | | | [address] | | | | | | [phone] | | | +--------+ + + + [...] 2018 | Visit | | MD Lucila WIGGNIS | | | | | | [place] | | | | | | [address] | | | | | | | [...] [place] | | | | | | [address] | | | | | | | | +--------+ + + + + documented as of this encounter Procedures + +--------+ + + + | Procedure Name | Priori | Date/Time | Associated Diagnosis | Comments | | | ty | | | | + +--------+ + + + | MAGNESIUM | Routin | 01/09/2014 | | Results for this | | | e | 12:00 AM | | procedure are in the | | | | PDT | | results section. | + +--------+ + + + | RENAL FUNCTION PANEL | Routin | 01/09/2014 | | Results for this | | | e | 12:00 AM | | procedure are in the | | | | PDT | | results section. | + +--------+ + + + documented in this encounter Results Magnesium (01/09/2014 12:00 AM PDT) + +-------+ + + [...] + +---------+ + + Renal Function Panel (01/09/2014 12:00 AM PDT) + +---------+ + + + | Component | Value | Ref Range | Performed | Pathologist | | | | | At | Signature | + +---------+ + + + | Glucose, | 151 (A) | 70 - 100 mg/dL | EXTERNAL | | | Fasting | | | LAB | | + +---------+ + + + | BUN | 24 (A) | 6 - 23 mg/dL | EXTERNAL | | | | | | LAB | | + +---------+ + + + | Creatinine | 1.05 | 0.7 - 1.11 | EXTERNAL | | | | | mg/dL | LAB | | + +---------+ + + + | PHOSPHORUS | 3 | 2.5 - 5 mg/dL | EXTERNAL | | | | | | LAB | | + +---------+ + + + | Albumin | 3.9 | 3.5 - 5 | EXTERNAL | | | | | | LAB | | + +---------+ + + + | Na | 137 | 132 - 143 | EXTERNAL | | | | | mmol/L | LAB | | + +---------+ + + + | K | 3.7 | 3.6 - 5.1 | EXTERNAL | | | | | mmol/L | LAB | | + +---------+ + + + | Cl | 102 | 95 - 112 mmol/L | EXTERNAL | | | | | | LAB | | + +---------+ + + + | CO2 | 24 | 19 - 31 mmol/L | EXTERNAL | | | | | | LAB | | + +---------+ + + + | Anion Gap | 14.7 | 7 - 21 mmol/L | EXTERNAL | | | | | | LAB | | + +---------+ + + + | eGFR if not | | | EXTERNAL | | | | | | LAB | | | SERBIAN | | | | | + +---------+ + + + | Phosphorus, | 3 | 2.5 - 5 | EXTERNAL | | | Inorganic | | | LAB | | + +---------+ + + + | BUN/Creatin | 22.9 | 6 - 28.6 | EXTERNAL | | | ine Ratio | | | LAB | | + +---------+ + + + | Calcium | 9.1 | 8.4 - 10.2 | EXTERNAL | | | | | mg/dL | LAB | | + +---------+ + + + | Estimated | 50 (A) | 60 mg/dL | EXTERNAL | [...]
--- OUTSIDE RECORDS SUMMARY | ~2019-03-06 | XMS | Encounter Summary ---
Demographics + + + | Address | [address] | | | [place] [address] | + + + | Home Phone | | + + + | Preferred Language | Unknown | + + + | Marital Status | | + + + | Muslim Affiliation | 1041 | + + + [...] [place] | | | | | [address] | | + + + + + | Rivka Palma | ECON | Unknown | | + + + + + | Geno Kendall | ECON | Unknown | | + + + + + Care Team Providers + +------+ + | Care Nurse Head Name | Role | Phone | + +------+ + | Carmen Schultz MD | PCP | | + +------+ + Reason for Visit + + + | Reason | Comments | + + + | Follow-up | 4 mo f/u | + + + Encounter Details +--------+---------+ + + + | Date | Type | Department | Care Team | Description | +--------+---------+ + + + | 12/15/ | Office | [facility] | Chapo Chung, | Ischemic | | 2019 | Visit | CARDIOLOGY [place] | [address] | cardiomyopathy | | | | [address] [facility] | [place] | (Primary Dx); | | | | [address] [address] | [id number] | Essential | | | | [place] | | hypertension, | | | | [address] | | benign; Acute | | | | [phone] | | respiratory failure | | | [...] | | | llator in situ | +--------+---------+ + + + Social History [...] + + + | Blood Pressure | 98/52 | 12/15/2018 1:34 PM | | | | | PDT | | + + + + + | Pulse | 84 | 12/15/2018 1:34 PM | | | | | PDT | | + + + + + | Temperature | - | - | | + + + + + | Respiratory Rate | - | - | | + + + + + | Oxygen Saturation | 92% | 12/15/2018 1:34 PM | | | | | PDT | | + + + + + | Inhaled Oxygen | - | - | | | Concentration | | | | + + + + + | Weight | 63.1 kg (139 lb 1.6 | 12/15/2018 1:34 PM | | | | oz) | PDT | | + + + + + | Height | 165.1 cm (5' 5") | 12/15/2018 1:34 PM | | | | | PDT | | + + + + + | Body Mass Index | 23.15 | 12/15/2018 1:34 PM | | | | | PDT | | + + + + + documented in this encounter Progress Notes Chapo Chung MD - 12/15/2018 1:30 PM PDTFormatting of this note might be different f rom the original. Date of visit: 12/15/2018 Primary Care Physician: Carmen Schultz MD CHIEF COMPLAINT: Chief Complaint Patient presents with Follow-up 4 mo f/u HISTORY OF PRESENT ILLNESS: Tamiko is 88 y.o. female, good historian here for follow up visit. Complex past medical history. Patient symptoms have been stable. Amiodarone was stopped by EP team due to pulmonary status, previously was used due to frequ ent premature ventricular contractions. Was stopped due to suspicious of pulmonary fibrosis that was radiologically suspected on est x-ray. Recently was evaluated by pulmonology, expectorant was added and patient feels better. Since prior evaluation, symptoms have been controlled. Weight has been stable. Taken 1.25 mg of metolazone as needed. On low-dose carvedilol and losartan. Could not tolerate higher doses. Patient had a fall in September of 2017 while cleaning broke her right hip, she had to be trans ferred to [facility] for high risk surgery. Subsequently developed staph pneumonia in October 22, [address] [facility]. Continue to be fatigue and tired. Could not tolerate Spironolactone due to symptomatic hypotension. Had CAD with ischemic CMP, had CABG in 2013. Had BiV-ICD after 3 months of medical therapy. Past medical history, SH, FH, and medications were reviewed in the chart. Medications: Outpatient Encounter Medications as of 12/15/2018 Medication Sig Dispense Refill acetaminophen (TYLENOL) 500 mg tablet Take 500 mg by mouth every 6 hours as needed. albuterol (VENTOLIN HFA) 90 mcg/puff inhaler Inhale 2 puffs into the lungs every 4 hour s as needed for Wheezing. 1 Inhaler 2 albuterol-ipratropium 2.5-0.5 mg/3 mL SOLN USE 1 VIAL VIA NEBULIZATION FOUR TIMES DAILY ; MAX OF 6 DOSES PER 24 HOURS 1080 mL 11 aspirin (ADULT ASPIRIN EC LOW STRENGTH) 81 MG EC tablet Take 81 mg by mouth Daily. budesonide (PULMICORT) 0.25 mg/2 mL nebulizer solution USE 2 ML(0.25MG) VIA NEBULIZER D AILY 180 mL 11 bumetanide (BUMEX) 1 mg tablet Take 1 [...] MG capsule Take 200 mg by mouth. [DISCONTINUED] fluticasone (FLONASE) 50 mcg/nasal spray 2 sprays in each nostril daily as needed (Patient not taking: Reported on 12/15/2018) guaiFENesin (ROBITUSSIN) 100 MG/5ML liquid Take 200 mg by mouth. levothyroxine (SYNTHROID) 88 mcg tablet Take 88 mcg by mouth Daily. lidocaine 4 % patch Place 1-3 patches onto the skin. losartan (COZAAR) 25 mg tablet Take 0.5 tablets by mouth daily. metOLazone 2.5 mg tablet Take 1 tablet by mouth every third day as needed. montelukast (SINGULAIR) 10 mg tablet Take 1 tablet by mouth Daily. 30 tablet 0 montelukast (SINGULAIR) 10 mg tablet Take 10 [...] Take 20 mg by mouth nightly. No facility-administered encounter medications on file as of 12/15/2018. Allergies Allergies Allergen Reactions Hydromorphone Other (See Comments) Documented in chart that patient went into respiratory distress after receiving 0.5mg of dilaudid. Adhesive & Tape Rash Codeine Itching Furosemide Other (See Comments) All joints ache and sore, tired All joints ache and sore, tired Joint pain Latex Rash REVIEW OF SYSTEMS: Constitutional: Positive for fatigue. No fever, chills, and rigors. Weight has been stable . HEENT: Negative for nosebleeds, ear discharge, nasal congestion or soar throat. Eyes: Negative for visual disturbance, redness, or secretion. Respiratory: Negative for cough, sputum production, hemoptysis, wheezing. Cardiovascular: as HPI. Gastrointestinal: Negative for nausea, vomiting, diarrhea, abdominal pain and blood in stoo l. Genitourinary: Negative for dysuria or hematuria. Musculoskeletal: arthritic pain. Skin: Negative for rash. Neurological: Negative for dizziness. No numbness. No recent falls. No slurred speech. Hematological: No significant bruising. Psychiatric/Behavioral: No depression or anxiety. PHYSICAL EXAM Vital Signs: BP 98/52 | Pulse 84 | Ht 1.651 m (5' 5") | Wt 63.1 kg (139 lb 1.6 oz) | SpO2 92% | BMI 23.15 kg/m GENERAL APPEARANCE: Alert, oriented, cooperative, no distress, appears stated age. HEENT: Extraocular movements were intact. No jaundice. Pupiles round and reactive. NECK: No JVD, lymphadenopathy. Carotid upstrokes normal. No carotid bruit heard. CARDIAC: Regular rhythm and rate. There is normal S1 and S2. Ectopy noted again. CHEST: Normal bilateral symmetrical chest excursion.ackles or wheezing. No evidence of dull ness. ABDOMEN: Soft.No tenderness or guarding. No palpable organs. Active bowel sounds. EXTREMITIES: No lower extremities edema, cyanosis or clubbing. NEURO: Alert and oriented times three with no focal deficit. Cranial nerves are grossly no rmal. SKIN: Warm and dry. No rash. Psych: Normal affect and mood. DATA 07/14/2018 WBC 8.6 hemoglobin 13.7, platelets 222, sodium 139, potassium 4.2, chloride 101, bicarbonat e 22, BUN 32, creatinine 1.32, GFR 38. AST 24, AST 18, alk phos 72, magnesium 2.0, TSH 5.87. BNP from April 2018 was 1310 Lab Results Component Value Date/Time NA 142 12/24/2017 11:11 NA 140 04/30/2017 00:00 NA 138 10/23/2016 11:29 K 4.1 12/24/2017 11:11 K 3.9 04/30/2017 00:00 K 4.1 10/23/2016 11:29 CO2 24 12/24/2017 11:11 CO2 23 04/30/2017 00:00 CO2 24 10/23/2016 11:29 BUN 27 (A) 12/24/2017 11:11 BUN 27 (A) 04/30/2017 00:00 BUN 28 (A) 10/23/2016 11:29 LABCREA 1.05 12/24/2017 11:11 LABCREA 1.06 04/30/2017 00:00 LABCREA 1.17 (A) 10/23/2016 11:29 CALCIUM 9.2 12/24/2017 11:11 CALCIUM 9.3 04/30/2017 00:00 CALCIUM 9.3 10/23/2016 11:29 MG 2.1 12/24/2017 11:11 MG 2.0 04/30/2017 00:00 MG 2.0 10/23/2016 11:29 Lab Results Component Value Date/Time WBC 9.3 12/24/2017 11:11 WBC 8.6 04/30/2017 00:00 WBC 8.7 10/23/2016 11:29 HGB 13.6 12/24/2017 11:11 HGB 14.6 04/30/2017 00:00 HGB 14.3 10/23/2016 11:29 HGB 7.8 (LL) 12/09/2013 13:17 HGB 6.8 (LL) 12/09/2013 12:15 HGB 7.5 (LL) 12/09/2013 11:43 MCV 95.5 12/24/2017 11:11 MCV 90.9 04/30/2017 00:00 MCV 89.8 10/23/2016 11:29 Lab Results Component Value Date CHOL 158 07/23/2015 CHOL 200 12/26/2014 TRIG 136 07/23/2015 TRIG 165 (A) 12/26/2014 HDL 56.1 07/23/2015 HDL 66.6 12/26/2014 GLUF 134 (A) 12/24/2017 GLUF 132 (A) 04/30/2017 EC10/29/2018 Reviewed showed atrial and ventricular paced rhythm with right bundle morphology. Last Echo: Last Stress Test, 05/17/2014: Large area of a abc-ecrxa-trhwo worrqb-dbcpxjk-wcghx [place], on ongoing ischemia. LV enlarged, LVEF 18%. 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 Hx BIV-ICD: 03/07/2014: Med[employer]onic [id number], Victorina Sneed, SN: [id number]. ASSESSMENT: Patient is 88 y.o. with 1. Ischemic cardiomyopathy. NYH class III, stage C. Stable angina. S/P BIV WANT AD RECEIVER therapy. No improvement in EF. 2. Frequent premature ventricular contractions. 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 3. CAD S/P CABG no clear anginal symptoms. 4. History right hip fracture. 5. CKD stage III. 6. Dyslipidemia. 7. DM type II. 8. Limited mobility. Plan: Patient chest x-ray did not change from previous x-rays. Decision making is challenging. Patient will continue on bumetanide daily, can use twice daily as needed. Continue metolazone 1.25 mg once a week as needed. Patient continue to monitor her weight. Once back to the 135-137 pounds, use metolazone as needed. Continue with carvedilol 3.125 mg bid, could not tolerate higher dose. Could not tolerate higher dose of losartan more than 12.5 mg daily. Patient to call with any change in symptoms. Will be seen by EP team next week. Follow-up in 3 months. *This report has been prepared using a voice recognition system. The report was reviewed fo r accuracy, however, sound-alike word errors, addition and/or deletions may occur. If there is any question about this report please contact me. Chapo Chung MD, MPH P M PDTdocumented in this encounter Plan of Treatment +--------+ + + + + | Date | Type | Specialty | Care Team | Description | +--------+ + + + + | 03/09/ | Office | Cardiology | Chapo Chung, | | | 2018 | Visit | | MD Lucila W[place] | | | | | | [place], [place] | | | | | | [address] | | | | | | | | +--------+ + + + + | 03/23/ | Procedure | Cardiology | | | 2018 | visit | | | | +--------+ + + + + | 08/09/ | Office | Pulmonology | Td Mondragon MD | | | 2020 | Visit | | [address] | | | | | | [place] | | | | | | [address] | | | | | | | | +--------+ + + + + documented as of this encounter Visit Diagnoses + + | Diagnosis | + + | Ischemic cardiomyopathy - Primary Other specified forms of chronic ischemic heart | | disease | + + | Essential hypertension, benign | + + | Acute respiratory failure with hypoxia (HCC) Acute respiratory failure | + + | S/P CABG (coronary artery bypass graft) Postsurgical aortocoronary bypass status | + + | Biventricular implantable cardioverter-defibrillator in situ | + + documented in this encounter
--- OUTSIDE RECORDS SUMMARY | ~2019-03-06 | XMS | Encounter Summary ---
Demographics + + + | Address | [address] | | | [place] [address] | + + + | Home Phone | | + + + | Preferred Language | Unknown | + + + | Marital Status | | + + + | Jain Affiliation | 1041 | + + + | Race | Unknown | + + + | Ethnic Group | Unknown | + + + Author + + + | Author | [facility] | | | and [place] | + + + | Organization | [facility] | | | [...] [place] | | | | | [address] | | + + + + + | Rivka Palma | ECON | Unknown | | + + + + + | Geno Kendall | ECON | Unknown | | + + + + + Care Team Providers + +------+ + | Care Studio Owner Name | Role | Phone | + [...] Description | +--------+--------+ + + + | 07/25/ | Refill | [facility] | Brandon Terry | Medication Refill | | 2012 | | PULMONARY [address] | [place] [address] [address] | | | | | [place], | [place], [place] | | | | | [place] [address] | [address] | | | | | [phone] | | | +--------+--------+ + + + [...] [place] | | | | | | [address] | | | | | | | | +--------+ + + + + | 03/23/ | Procedure | Cardiology | | | | 2018 | visit | | | | +--------+ + + + + | 08/09/ | Office | Pulmonology | Td Mondragon MD | | | 2019 | Visit | | [address] | | | | | | [place] | | | | | | [address] | | | | | | | | +--------+ + + + + documented as of this encounter Visit Diagnoses Not on filedocumented in this encounter"
--- OUTSIDE RECORDS SUMMARY | ~2019-03-06 | XMS | Encounter Summary ---
Demographics + + + | Address | [address] | | | [place] [address] | + + + | Home Phone | | + + + | Preferred Language | Unknown | + + + | Marital Status | Single | + + + | Hinduism Affiliation | Unknown | + + + | Race | Unknown | + + + | Ethnic Group | Other Race | + + + Author + + + | Author | [facility] | + + + | Organization | [facility] | + + + | Address | Unknown | + + + | Phone | Unavailable | + + + Support + + +---------+ + | Name | Relationship | Address | Phone | + + +---------+ + | Alfredo Ireland | ECON | Unknown | | + + +---------+ + | Benja Painting | ECON | Unknown | | + + +---------+ + Care Team Providers + +------+ + | Care Emt Driver Name | Role | Phone | + +------+ + PCP | Unavailable | + +------+ + Encounter Details +--------+ + + + + | Date | Type | Department | Care Team | Description | +--------+ + + + + | 11/04/ | Document-Sc | Health Information | Unknown . | | | 2018 | anned | Services [id number] | | | | | | [facility] | | | | | | Mailcode: [id number] | | | | | | [facility] [place] | | | | | | [place], [place] | | | | | | [address] | | | | | | [phone] | | | +--------+ + + + [...] as of this encounter Plan of Treatment Not on filedocumented as of this encounter Procedures + +--------+ + + + | Procedure Name | Priori | Date/Time | Associated Diagnosis | Comments | | | ty | | | | + +--------+ + + + | PROCEDURE NOTE | Routin | 11/04/2017 | | Results for this | | | e | 1:19 PM | | procedure are in the | | | | PDT | | results section. | + +--------+ + + + documented in this encounter Results PROCEDURE NOTE (11/04/2017 1:19 PM PDT)documented in this encounter Visit Diagnoses Not on filedocumented in this encounter"
--- OUTSIDE RECORDS SUMMARY | ~2019-03-06 | XMS | Encounter Summary ---
Demographics + + + | Address | [address] | | | [place] [address] | + + + | Home Phone | | + + + | Preferred Language | Unknown | + + + | Marital Status | | + + + | Taoism Affiliation | 1041 | + + + | Race | Unknown | + + + | Ethnic Group | Unknown | + + + Author + + + | Author | [facility] | | | and [place] | + + + | Organization | [facility] | | | [...] [place], [place] | | | | | [address] | | + + + + + | Rivka Palma | ECON | Unknown | | + + + + + | Geno Kendall | ECON | Unknown | | + + + + + Care Team Providers + +------+ + | Care Delivery Motorcycle Driver Name | Role | Phone | + +------+ + | Lorenzo Valdes MD | PCP | | + +------+ + Encounter Details +--------+ + + + + | Date | Type | Department | Care Team | Description | +--------+ + + + + | 09/23/ | Orders Only | [facility] | Conversion | | | 2015 | | NEPHROLOGY [place] | Transaction, | | | | | [address] [facility] | Provider Unknown | | | | | [address] [facility], [place] | [phone] | | | | | [address] | | | | | | [phone] | | | +--------+ + + + [...] [place] | | | | | | [address] | | | | | | | [...] [place] | | | | | | [address] | | | | | | | [...] for this | | | e | 7:58 AM | | procedure are in the | | | | PDT | | results section. | + +--------+ + + + | URINALYSIS, | Routin | 09/24/2015 | | Results for this | | MICROSCOPIC ONLY | e | 7:58 AM | | procedure are in the | | | | PDT | | results section. | + +--------+ + + + | URIC ACID | Routin | 09/24/2015 | | Results for this | | | e | 7:58 AM | | procedure are in the | | | | PDT | | results section. | + +--------+ + + + | MAGNESIUM | Routin | 09/24/2015 | | Results for this | | | e | 7:58 AM | | procedure are in the | | | | PDT | | results section. | + +--------+ + + + | RENAL FUNCTION PANEL | Routin | 09/24/2015 | | Results for this | | | e | 7:58 AM | | procedure are in the | | | | PDT | | results section. | + +--------+ + + + documented in this encounter Results Urinalysis, Microscopic Only (09/24/2015 7:58 AM PDT) + + + + + [...] + + + + | Specific | 1.014 | 1.005 - 1.030 | EXTERNAL | | | [place] | | | LAB | | + [...] + +---------+ + + External Lab: CBC (09/24/2015 7:58 AM PDT) + +-------+ + + + | Component | Value | Ref Range | Performed | Pathologist | | | | | At | Signature | + +-------+ + + + | WBC | 9.9 | 4.5 - 11.0 10 | EXTERNAL | | | | | | LAB | | + +-------+ + + + | RED CELL | 4.57 | 3.8 - 5.1 10 | EXTERNAL | | | COUNT | | | LAB | | + +-------+ + + + | Hgb | 13.9 | 12.0 - 16.0 | EXTERNAL | | | | | g/dL | LAB | | + +-------+ + + + | Hematocrit, | 41.5 | 35 - 45 % | EXTERNAL | | | POC | | | LAB | | + +-------+ + + + | MCV | 90.9 [...] +-------+ + + + | Platelet | 215 | 140 - 440 K/ L | EXTERNAL | | | Count | | | LAB | | | Plasma | | | | | + +-------+ + + + | RDW-CV | | % | EXTERNAL | | [...] + +---------+ + + Uric Acid (09/24/2015 7:58 AM PDT) + + + + + + | Component | Value | Ref Range | Performed | Pathologist | | | | | At | Signature | + + + + + + | Uric Acid | 10.2 (A) | 2.3 - 6.6 | EXTERNAL [...] | + +---------+ + + Magnesium (09/24/2015 7:58 AM PDT) + +---------+ + + + [...] +---------+ + + Renal Function Panel (09/24/2015 7:58 AM PDT) + + + + + [...] + + + + | PHOSPHORUS | 3.5 | 2.5 - 5.0 mg/dL | EXTERNAL | | | | [...] | | | LAB | | | [facility] | | | | | + + + + + + | Phosphorus, | | | EXTERNAL | | | Inorganic | [...]
--- OUTSIDE RECORDS SUMMARY | ~2019-03-06 | XMS | Encounter Summary ---
Demographics + + + | Address | [address] | | | [place] [address] | + + + | Home Phone | | + + + | Preferred Language | Unknown | + + + | Marital Status | | + + + | Jehovah'S Witness Affiliation | 1041 | + + + | Race | Unknown | + + + | Ethnic Group | Unknown | + + + Author + + + | Author | [facility] | | | and [place] | + + + | Organization | [facility] | | [...] [place] | | | | | [address] | | + + + + + | Rivka Palma | ECON | Unknown | | + + + + + | Geno Kendall | ECON | Unknown | | + + + + + Care Team Providers + +------+ + | Care Margin Analyst Name | Role | Phone | [...] + + | 12/15/ | Telephone | [facility] | Td Mondragon MD | Other | | 2019 | | PULMONOLOGY [address] | [address] | | | | | [address] | [place], [place] | | | | | [place], [place] | [address] | | | | | [address] | | | | | | [phone] | | | +--------+ + + + [...] [place] | | | | | | [address] | | | | | | | [...] [place] | | | | | | [address] | | | | | | | | +--------+ + + + + documented as of this encounter Visit Diagnoses Not on filedocumented in this encounter"
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
--- OUTSIDE RECORDS SUMMARY | ~2019-03-06 | XMS | Clinical Summary ---
Demographics + + + | Address | [address] | | | [place] [address] | + + + | Home Phone | | + + + | Preferred Language | Unknown | + + + | Marital Status | Single | + + + | Worship Affiliation | Unknown | + + + | Race | Unknown | + + + | Ethnic Group | Other Race | + + + Author + + + | Author | [facility] | + + + | Organization | [facility] | + + + | Address | [...] Team Providers + +------+ + | Care Phosphorus Processing Supervisor Name | Role | Phone | + +------+ + PCP | Unavailable | + +------+ + Source Comments WING is fully live on both [facility] Ambulatory and [facility] InPatient.[facility] Allergies Not on File Medications Not on file Active Problems Not on file Social History + +-------+ +--------+------+ | Tobacco [...] | + + Last Filed Vital Signs Not on file Plan of Treatment + + + + + | Health Maintenance | Due Date | Last Done | Comments | + + + + + | Influenza (Flu) | | 02/16/2014, 12/26/2012, | | | vaccination (#1) | 9 | 01/24/2012 | | + + + + + | Pneumococcal | Completed | 12/17/2013, 12/10/2013, | | | vaccination | | 02/23/2006 | | + + + + + Results Not on filefrom Last 3 Months Insurance + +--------+ +--------+ + +--------+ | Payer | Benefi | Subscriber | Effect | Phone | Address | Type | | | t Plan | ID | yasmine | | | | | | / | | Dates | | | | | | Group | | | | | | + +--------+ +--------+ + +--------+ | MEDICARE | MEDICA | xxxxxxxxxx | 09/11/18 | [phone] | [address] | [address] | | | RE A & | | [address] | [phone] | | | [address] | | sent | | [place] | | | | | | | | [phone] | | + +--------+ +--------+ + +--------+ + +--------+ +--------+ + + | Guarantor Name | Accoun | Relation to | Date | Phone | Billing Address | | | t Type | Patient | of | | | | | | | | | | + +--------+ +--------+ + + | Tamiko Ireland | Person | Self | [birth year] | [address] | | | al/Fam | | 1931 | [phone] | [place] [address] | | | pita | | | 5 (Home) | | + +--------+ +--------+ + +"
--- OUTSIDE RECORDS SUMMARY | ~2019-03-06 | XMS | Encounter Summary ---
Demographics + + + | Address | [address] | | | [place] [address] | + + + | Home Phone | | + + + | Preferred Language | Unknown | + + + | Marital Status | | + + + | Nondenominational Affiliation | 1041 | + + + | Race | Unknown | + + + | Ethnic Group | Unknown | + + + Author + + + | Author | [facility] | | | and [place] | + + + | Organization | [facility] | | | [...] [place], [place] | | | | | [address] | | + + + + + | Rivka Palma | ECON | Unknown | | + + + + + | Geno Kendall | ECON | Unknown | | + + + + + Care Team Providers + +------+ + | Care Capsule Filling Machine Operator Name | Role | Phone | + +------+ + | Lorenzo Valdes MD | PCP | | + +------+ + Encounter Details +--------+ + + + + | Date | Type | Department | Care Team | Description | +--------+ + + + + | 12/24/ | Orders Only | [facility] | Allan Mar, | | | 2017 | | [facility] | AWARD MACHINE OPERATOR [address] | | | | | [address] [place] | [address] | | | | | [address] [place], [place] | [place] | | | | | [address] | [address] | | | | | [phone] | [phone] | | | | | | | [...] [place] | | | | | | [address] | | | | | | | [...] [place] | | | | | | [address] | | | | | | | | +--------+ + + + + documented as of this encounter Procedures + +--------+ + + + | Procedure Name | Priori | Date/Time | Associated Diagnosis | Comments | | | ty | | | | + +--------+ + + + | EXTERNAL LAB: CBC | Routin | 12/24/2017 | | Results for this | | | e | 11:11 AM | | procedure are in the | | | | PDT | | results section. | + +--------+ + + + | PROTEIN/CREATININE | Routin | 12/24/2017 | | Results for this | | RATIO, URINE | e | 11:11 AM | | procedure are in the | | | | PDT | | results section. | + +--------+ + + + | URIC ACID | Routin | 12/24/2017 | | Results for this | | | e | 11:11 AM | | procedure are in the | | | | PDT | | results section. | + +--------+ + + + | MAGNESIUM | Routin | 12/24/2017 | | Results for this | | | e | 11:11 AM | | procedure are in the | | | | PDT | | results section. | + +--------+ + + + | RENAL FUNCTION PANEL | Routin | 12/24/2017 | | Results for this | | | e | 11:11 AM | | procedure are in the | | | | PDT | | results section. | + +--------+ + + + documented in this encounter Results Protein/Creatinine Ratio, Urine (12/24/2017 11:11 AM PDT) + + + + + + | Component | Value | Ref Range | Performed | Pathologist | | | | | At | Signature | + + + + + + | Protein/Cre | 411.8 (A) | 0 - 150 | EXTERNAL [...] + +---------+ + + External Lab: CBC (12/24/2017 11:11 AM PDT) + + + + + + | Component | Value | Ref Range | Performed | Pathologist | | | | | At | Signature | + + + + + + | WBC | 9.3 | 4.5 - 11.0 10 | EXTERNAL | | | | | | LAB | | + + + + + + | RED CELL | 4.41 | 3.8 - 5.1 10 | EXTERNAL | | | COUNT | | | LAB | | + + + + + + | Hgb | 13.6 | 12 - 16 g/dL | EXTERNAL | | | | | | LAB | | + + + + + + | Hematocrit, | 42.1 | 35 - 45 % | EXTERNAL | | | POC | | | LAB | | + + + + + + | MCV | 95.5 | 81 - 99 fL | EXTERNAL [...] + + + + | Platelet | 219 | 140 - 440 K/ L | EXTERNAL | | | Count | | | LAB | | | Plasma | | | | | + + + + + + | RDW-CV | 15.8 (A) | 10.5 - 15.0 % | EXTERNAL [...] + + + + | % | | % | EXTERNAL | | | Lymphocytes | | | LAB | | + + + + + + | % Monocytes | | % | EXTERNAL | | | | | | LAB | | + + + + + + | % | | [...] | + +---------+ + + Uric Acid (12/24/2017 11:11 AM PDT) + +---------+ + + + | Component | Value | Ref Range | Performed | Pathologist | | | | | At | Signature | + +---------+ + + + | Uric Acid | 7.9 (A) | 2.3 - 6.6 | EXTERNAL [...] | | + +---------+ + + Magnesium (12/24/2017 11:11 AM PDT) + +-------+ + + + | Component | Value | Ref Range | Performed | Pathologist | | | | | At | Signature | + +-------+ + + + | Magnesium | 2.1 | 1.7 - 2.5 mg/dL | EXTERNAL [...] + +---------+ + + Renal Function Panel (12/24/2017 11:11 AM PDT) + +---------+ + + + | Component | Value | Ref Range | Performed | Pathologist | | | | | At | Signature | + +---------+ + + + | Glucose, | 134 (A) | 70 - 100 mg/dL | EXTERNAL | | | Fasting | | | LAB | | + +---------+ + + + | BUN | 27 (A) | 6 - 23 mg/dL | EXTERNAL | | | | | | LAB | | + +---------+ + + + | Creatinine | 1.05 | 0.7 - 1.11 | EXTERNAL | | | | | mg/dL | LAB | | + +---------+ + + + | PHOSPHORUS | 3.3 | 2.5 - 5.0 mg/dL | EXTERNAL | | | | | | LAB | | + +---------+ + + + | Albumin | 3.8 | 3.5 - 5.0 | EXTERNAL | | | | | | LAB | | + +---------+ + + + | Na | 142 | 132 - 143 | EXTERNAL | | | | | mmol/L | LAB | | + +---------+ + + + | K | 4.1 | 3.6 - 5.1 | EXTERNAL | | | | | mmol/L | LAB | | + +---------+ + + + | Cl | 105 [...] | | | LAB | | | [facility]ES | | | | | + +---------+ + + + | Phosphorus, | | | EXTERNAL | | | Inorganic | | | LAB | | + +---------+ + + + | BUN/Creatin | 25.7 | 6.0 - 28.6 | EXTERNAL | | | ine Ratio | | | LAB | | + +---------+ + + + | Calcium | 9.2 | 8.5 - 10.3 | EXTERNAL | | | | | [...]
--- OUTSIDE RECORDS SUMMARY | ~2019-03-06 | XMS | Encounter Summary ---
Demographics + + + | Address | [address] | | | [place] [address] | + + + | Home Phone | | + + + | Preferred Language | Unknown | + + + | Marital Status | | + + + | Judaism Affiliation | 1041 | + + + [...] [place], [place] | | | | | [address] | | + + + + + | Rivka Palma | ECON | Unknown | | + + + + + | Geno Kendall | ECON | Unknown | | + + + + + Care Team Providers + +------+ + | Care Kosher Dietary Service Manager Name | Role | Phone | + +------+ + | Lorenzo Valdes MD | PCP | | + +------+ + Encounter Details +--------+ + + + + | Date | Type | Department | Care Team | Description | +--------+ + + + + | 09/23/ | Orders Only | [facility] | Conversion | | | 2015 | | NEPRHOLOGY [place] | Transaction, | | | | | [address] | Provider Unknown | | | | | [address] [place], [place] | [phone] | | | | | [address] | | | | | | [phone] | | | +--------+ + + + [...] [place] | | | | | | [address] | | | | | | | | +--------+ + + + + | 03/23/ | Procedure | Cardiology | | | | 2018 | visit | | | | +--------+ + + + + | 08/09/ | Office | Pulmonology | Td Mondragon MD | | | 2019 | Visit | | [address] | | | | | | [place] | | | | | | [address] | | | | | | | [...] | | | LAB | | | [place] | | | | | + + [...]
--- OUTSIDE RECORDS SUMMARY | ~2019-03-06 | XMS | Encounter Summary ---
Demographics + + + | Address | [address] | | | [place] [address] | + + + | Home Phone | | + + + | Preferred Language | Unknown | + + + | Marital Status | | + + + | Tenriism Affiliation | 1041 | + + + | Race | Unknown | + + + | Ethnic Group | Unknown | + + + Author + + + | Author | [facility] | | | and [place] | + + + | Organization | [facility] | | | and [...] [place], [place] | | | | | [address] | | + + + + + | Rivka Palma | ECON | Unknown | | + + + + + | Geno Kendall | ECON | Unknown | | + + + + + Care Team Providers + +------+ + | Care Chief Nursing Officer Name | Role | Phone | + +------+ + | Lorenzo Valdes MD | PCP | | + +------+ + Reason for Visit + + + | Reason | Comments | + + + | Cough | | + + + | Bronchitis | | + + + Encounter Details +--------+---------+ + + + | Date | Type | Department | Care Team | Description | +--------+---------+ + + + | 02/23/ | Office | [facility] | Brandon Terry | Bronchiectasis (HCC) | | 2011 | Visit | PULMONARY [address] | [place] [address] [address] | (Primary Dx); | | | | [place], | [facility], [place] | Cough; [place], | | | | [place] [address] | [address] | OBSTRUCTIVE CHRONIC; | | | | [phone] | | Asthma, extrinsic; | | | | | | Allergic rhinitis | | | | | | due to pollen | +--------+---------+ + + + Social History [...] + + + | Blood Pressure | 140/80 | 02/24/2012 10:07 AM | | | | | PST | | + + + + + | Pulse | 84 | 02/24/2012 10:07 AM | | | | | PST | | + + + + + | Temperature | - | - | | + + + + + | Respiratory Rate | - | - | | + + + + + | Oxygen Saturation | 97% | 02/24/2012 10:07 AM | | | | | PST | | + + + + + | Inhaled Oxygen | - | - | | | Concentration | | | | + + + + + | Weight | 75.8 kg (167 lb) | 02/24/2012 10:07 AM | | | | | PST | | + + + + + | Height | 165.1 cm (5' 5") | 02/24/2012 10:07 AM | | | | | PST | | + + + + + | Body Mass Index | 27.79 | 02/24/2012 10:07 AM | | | | | PST | | + + + + + documented in this encounter Patient Instructions Patient Instructions Brandon Terry MD - 02/24/2012 10:22 AM PSTContinue mucinex tw ice daily. Continue Pulmicort 2 puffs daily. Continue to use the Acapella device as needed. documented in this encounter Progress Notes Brandon Terry MD - 02/24/2012 10:34 AM PSTFormatting of this note might be differe nt from the original. Brandon Terry MD [facility] [address] [place] [address] 02/24/2012 Tamiko Ireland 1930 History: Tamiko Ireland is a 81 y.o. female followed for symptoms of chronic cough and mucus producti on due to bronchiectasis. She was originally seen in May 2008, sent by Dr. Tono pickens [place], [place]. Mrs. Ireland recalled problems dating back to frequent bronchitis in [facility] that suggested that she may even have had asthma in her youth. When Mrs. Ireland was 9 years old, her mother of tuberculosis. Frequent chest x-rays were obtained after her mother's and they did not show any evidence for tuberculosis in Mrs. Ireland. Her skin test for tuberculosis was also negative. Unfortunately, Mrs. Ireland ended up smoking cigarettes for about 30 years although she quit approximately 25 years ago. When I first saw her we were able to obtain a prior CT scan of the chest that had been performed at [facility] on July 29, 2005. Th at CT scan showed definite right middle lobe bronchiectasis and mild right middle lobe atele ctasis. It also showed extensive emphysema. Mrs. Ireland is chronic cough was believed to be due to bronchiectasis as well as a component of chronic bronchitis related to prior smoking . Other evidence suggested that she might have an asthmatic reactive airway component. Lab oratory studies done before I first saw her showed mild peripheral eosinophilia consistent w ith asthma. Mrs. Ireland was begun on an inhaled corticosteroid using Pulmicort Flexhaler. She had impro vement in her cough and her dose was reduced down to 2 puffs daily. She also has an Acapell a mucous clearance device that she uses on an as-needed basis. During the past year, she has had some periods with increased cough. There was increased f duc smoke in our area in December and this caused increased symptoms. She developed sympto ms of diverticulitis in December and was treated with a course of Augmentin which actually helped her cough quite a bit. She does use Mucinex very regularly twice daily. Ms. Ireland also has rhinitis. She continues to use cetirizine and fluticasone nasal spray r egularly. Previously she had used some ipratropium nasal spray but she rarely uses this any longer. She recently obtained influenza and pertussis vaccinations. Patient Active Problem List Diagnoses RHINITIS, CHRONIC ASTHMA, INTRINSIC BRONCHIECTASIS BRONCHITIS, OBSTRUCTIVE CHRONIC COUGH ALLERGIC RHINITIS DUE TO POLLEN ASTHMA, EXTRINSIC Current Outpatient Prescriptions Medication Sig Dispense Refill acetaminophen (TYLENOL) 500 mg tablet Take 500 mg by mouth every 6 hours as needed. IPRATROPIUM BROMIDE IN as needed. budesonide (PULMICORT FLEXHALER) 180 mcg/puff inhaler 2 puffs Daily. Indications: Br onchiectasis rosuvastatin (CRESTOR) 10 mg tablet Take 10 mg by mouth Daily. Cholecalciferol (CVS VITAMIN D) 2000 UNITS CAPS Take 2,000 Units by mouth Daily. levothyroxine (SYNTHROID) 88 mcg tablet Take 88 mcg by mouth Daily. metFORMIN (GLUCOPHAGE) 500 mg tablet Take 500 mg by mouth Daily. guaiFENesin (MUCINEX) 600 mg 12 hr tablet Take 600 mg by mouth 2 times daily. Cetirizine HCl (ZYRTEC ALLERGY PO) 1 tablet by mouth daily aspirin (ADULT ASPIRIN EC LOW STRENGTH) 81 MG EC tablet Take 81 mg by mouth Daily. Cyanocobalamin (B-12 PO) 1 tablet by mouth daily losartan (COZAAR) 100 MG tablet Take 100 mg by mouth Daily. tetrahydrozoline-zinc (EYE DROPS ALLERGY RELIEF) 0.05-0.25 % ophthalmic solution 1 drop into each eye 2-3 times daily calcium ascorbate (BUFFERED VITAMIN C) 500 MG TABS Take 500 mg by mouth Daily. spironolactone (ALDACTONE) 50 mg tablet Take 50 mg by mouth Daily. fluticasone (FLONASE) 50 mcg/nasal spray 2 sprays in each nostril daily as needed No Known Allergies Past Medical History was reviewed and updated in the electronic record. Review of Systems She still has mild symptoms of rhinitis, chronic cough, and mucus production. Her abdomina l pain is now resolved. A 10 point review of systems was otherwise negative. Physical Examination: BP 140/80 | Pulse 84 | Ht 1.651 m (5' 5") | Wt 75.751 kg (167 lb) | BMI 27.79 kg/m2 | SpO2 97% General: Pleasant, elderly woman in no acute distress. She did not cough during the visit. HEENT: Oropharynx was clear without thrush. Slightly small airway. Neck: No adenopathy or thyromegaly. Lungs: Right lower lung crackles. No left lung crackles. No wheezes or rhonchi. Heart: Regular rate and rhythm. Extremities: No clubbing, cyanosis, or edema. Skin: Warm and dry. Assessment: 1. 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 Current manage ment with an inhaled corticosteroid, regular guaifenesin, and use of a mucous clearance justine ce as needed appears to be managing her problem relatively well. She did have an increase i n symptoms with worse air-quality. She also noted improvement following a course of antibi otic for another indication. 2. Cough Improved following course of Augmentin in December. Some return of cough since then but t olerable. 3. BRONCHITIS, OBSTRUCTIVE CHRONIC She is a 19-asby-zhhb smoking history. Fortunately, pulmonary function test performed in 2008 showed very little airflow obstruction. This may contribute to her cough is well. 4. Asthma, extrinsic She did have eosinophilia when she was first seen in 2008. She also describes airway react ivity if she is around dogs or cats. Her history from childhood also suggests possible chil dhood asthma. This is an additional indication for ongoing use of her inhaled corticosteroi d although she has very little airflow obstruction by pulmonary function test criteria. 5. Allergic rhinitis She does have a lot of allergy symptoms throughout the year and is aware of multiple trigge rs. She remains on cetirizine and fluticasone nasal spray regularly. She no longer finds a need for ipratropium nasal spray. PLAN: 1. Continue Pulmicort Flehaler 180 mcg 2 puffs daily. 2. Continue Zyrtec 10 mg daily. 3. Continue fluticasone nasal spray 50 mcg 2 sprays needs nostril once daily. 4. Continue guaifenesin 600 mg by mouth twice a day. 5. Continue use of the Acapella mucous clearance device as needed. 6. She is or he had a flu vaccine this season and is also had a pertussis vaccine. 7. Followup in one year earlier if problems. Brandon Terry Cc: Dr. Tono Valdes documented in t his encounter Plan of Treatment +--------+ + + + + | Date | Type | Specialty | Care Team | Description | +--------+ + + + + | 03/09/ | Office | Cardiology | [place], | | | 2018 | Visit | | MD Lucila WIGGINS | | | | | | [place] | | | | | | [phone] | | | | | | | | +--------+ + + + + | 03/23/ | Procedure | Cardiology | | | 2018 | visit | | | | +--------+ + + + + | 08/09/ | Office | Pulmonology | Td Mondragon MD | | | 2019 | Visit | | [address] | | | | | | [place] | | | | | | [address] | | | | | | | | +--------+ + + + + documented as of this encounter Visit Diagnoses + + | Diagnosis | + + | Bronchiectasis (HCC) - Primary Bronchiectasis without acute exacerbation | + + | Cough | + + | BRONCHITIS, OBSTRUCTIVE CHRONIC Obstructive chronic bronchitis without exacerbation | + + | Asthma, extrinsic Extrinsic asthma, unspecified | + + | Allergic rhinitis due to pollen | + + documented in this encounter
--- OUTSIDE RECORDS SUMMARY | ~2019-03-06 | XMS | Encounter Summary ---
Demographics + + + | Address | [address] | | | [place] [address] | + + + | Home Phone | | + + + | Preferred Language | Unknown | + + + | Marital Status | | + + + | Congregation Affiliation | 1041 | + + + | Race | Unknown | + + + | Ethnic Group | Unknown | + + + Author + + + | Author | [facility] | | | and [place] | + + + | Organization | [facility] | | [...] [place], [place] | | | | | [address] | | + + + + + | Rivka Palma | ECON | Unknown | | + + + + + | Geno Kendall | ECON | Unknown | | + + + + + Care Team Providers + +------+ + | Care A/C Tech Name | Role | Phone | + +------+ + | Lorenzo Valdes MD | PCP | | + +------+ + Reason for Visit + + + | Reason | Comments | + + + | Follow-up | | + + + Encounter Details +--------+---------+ + + + | Date | Type | Department | Care Team | Description | +--------+---------+ + + + | 03/16/ | Office | [facility] | Brandon Terry | Bronchiectasis (HCC) | | 2012 | Visit | PULMONARY [address] | [place] [address] [address] | (Primary Dx); | | | | [place], | [place], [place] | [place], | | | | [place] [address] | [address] | OBSTRUCTIVE CHRONIC; | | | | [phone] | | Asthma, extrinsic; | | | [...] + + + | Blood Pressure | 136/74 | 03/16/2013 9:06 AM | | | | | PST | | + + + + + | Pulse | 76 | 03/16/2013 9:06 AM | | | | | PST | | + + + + + | Temperature | - | - | | + + + + + | Respiratory Rate | - | - | | + + + + + | Oxygen Saturation | 95% | 03/16/2013 9:06 AM | | | | | PST | | + + + + + | Inhaled Oxygen | - | - | | | Concentration | | | | + + + + + | Weight | 74.4 kg (164 lb 1.6 | 03/16/2013 9:06 AM | | | | oz) | PST | | + + + + + | Height | 165.1 cm (5' 5") | 03/16/2013 9:06 AM | | | | | PST | | + + + + + | Body Mass Index | 27.31 | 03/16/2013 9:06 AM | | | | | PST | | + + + + + documented in this encounter Patient Instructions Patient Instructions Brandon Terry MD - 03/16/2013 9:24 AM PSTContinue Pulmicort 2 puffs daily. Continue to use the Acapella device as needed for mucus. Continue the guaifenesin (generic mucinex) daily. Good job getting your flu shot. I sent a prescription to [facility] for an Atrovent inhaler. You can try taking 2 puffs abou t 30 minutes before going out in the cold air to see if it helps prevent the chest burning a nd shortness of breath. Continue the fluticasone nasal spray daily and the cetirizine. documented in this encounter Progress Notes Brandon Terry MD - 03/16/2013 9:36 AM PSTFormatting of this note might be differen t from the original. Brandon Terry MD [facility] [address] [place] [id number] 03/16/2013 Tamiko Ireland 1930 History Tamiko Ireland is a 82 y.o. female followed for symptoms of chronic cough and mucus producti on due to bronchiectasis. She was originally seen in May 2008, sent by Dr. Tono Valdes in [place], [place]. Mrs. Ireland recalled problems dating back to frequent bronchitis in [place] that suggested that she may even have had asthma in her youth. When Mrs. Ireland was 9 ye ars old, her mother of tuberculosis. Frequent chest x-rays were obtained after her moth er's and they did not show any evidence for tuberculosis in Mrs. Ireland. Her skin test for tuberculosis was also negative. Unfortunately, Mrs. Ireland ended up smoking cigarettes for about 30 years although she quit approximately 25 years ago. When I first saw her we were able to obtain a prior CT scan of t he chest that had been performed at [facility] on July 29, 2005. That CT scan showed definite right middle lobe bronchiectasis and mild right middle lobe atelect asis. It also showed extensive emphysema. Mrs. Ireland's chronic cough was believed to be due to bronchiectasis as well as a component of chronic bronchitis related to prior smoking. Oth er evidence suggested that she might have an asthmatic reactive airway component as well. La boratory studies done before I first saw her showed mild peripheral eosinophilia consistent with asthma. Mrs. Ireland was begun on an inhaled corticosteroid using Pulmicort Flexhaler. She had improv ement in her cough and her dose was reduced down to 2 puffs daily. She also has an Acapella mucous clearance device that she uses on an as-needed basis. She did have a recent mild res piratory infection and used the Acapella device which provided benefit. She did not require any additional treatments for that respiratory infection. During the past year since our last visit, she has not required any antibiotics for her res piratory symptoms. She does note a sensation of chest "burning" and shortness of breath wh en going out into cold, dry air. She would be willing to try a reliever inhaler for these s ymptoms. However, in the past she did not tolerate Spiriva due to blurred vision, and did n ot tolerate albuterol due to tremor. Ms. Ireland also has rhinitis. She continues to use cetirizine and fluticasone nasal spray re gularly. Previously she had used some ipratropium nasal spray but she rarely uses this any l onger, and feels that it may have dried her nose too much. She has already obtained a flu vaccine. Patient Active Problem List Diagnosis RHINITIS, CHRONIC ASTHMA, INTRINSIC BRONCHIECTASIS BRONCHITIS, OBSTRUCTIVE CHRONIC COUGH ALLERGIC RHINITIS DUE TO POLLEN ASTHMA, EXTRINSIC Current Outpatient Prescriptions Medication Sig Dispense Refill acetaminophen (TYLENOL) 500 mg tablet Take 500 mg by mouth every 6 hours as needed. aspirin (ADULT ASPIRIN EC LOW STRENGTH) 81 MG EC tablet Take 81 mg by mouth Daily. calcium ascorbate (BUFFERED VITAMIN C) 500 MG TABS Take 500 mg by mouth Daily. Cetirizine HCl (ZYRTEC ALLERGY PO) 1 tablet by mouth daily Cholecalciferol (CVS VITAMIN D) 2000 UNITS CAPS Take 2,000 Units by mouth Daily. Cyanocobalamin (B-12 PO) 1 tablet by mouth daily fluticasone (FLONASE) 50 mcg/nasal spray 2 sprays in each nostril daily as needed guaiFENesin (MUCINEX) 600 mg 12 hr tablet Take 600 mg by mouth 2 times daily. ipratropium (ATROVENT HFA) 17 mcg/puff inhaler Inhale 2 puffs every 6 hours as needed f or shortness of breath 1 Inhaler 6 IPRATROPIUM BROMIDE IN as needed. levothyroxine (SYNTHROID) 88 mcg tablet Take 88 mcg by mouth Daily. losartan (COZAAR) 100 MG tablet Take 100 mg by mouth Daily. metFORMIN (GLUCOPHAGE) 500 mg tablet Take 500 mg by mouth Daily. omeprazole (PRILOSEC) 20 mg capsule Take 20 mg by mouth every morning (before breakfast ). PULMICORT FLEXHALER 180 MCG/ACT inhaler inhale 2 puffs by mouth twice a day 1 each 11 rosuvastatin (CRESTOR) 10 mg tablet Take 10 mg by mouth Daily. spironolactone (ALDACTONE) 50 mg tablet Take 50 mg by mouth Daily. tetrahydrozoline-zinc (EYE DROPS ALLERGY RELIEF) 0.05-0.25 % ophthalmic solution 1 drop into each eye 2-3 times daily No Known Allergies Past Medical History was reviewed and updated in the electronic record. Review of Systems She has mild symptoms of rhinitis, chronic cough, and mucus production. She has the sensat ion of chest burning when going out in cold, dry air. Physical Examination: BP 136/74 | Pulse 76 | Ht 1.651 m (5' 5") | Wt 74.435 kg (164 lb 1.6 oz) | BMI 27.31 kg/m2 | SpO2 95% room air General: Pleasant, elderly woman in no acute distress. She did not cough during the visit. She did require a little assistance getting up onto the exam table. HEENT: Oropharynx was clear without thrush. Slightly small airway. Neck: No adenopathy or thyromegaly. Lungs: Right lower lung crackles. No left lung crackles. No wheezes. A few rhonchi in the right lung as well. Heart: Regular rate and rhythm. Extremities: No clubbing, cyanosis, or edema. Skin: Warm and dry. Assessment: 1. 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 Current managem ent with an inhaled corticosteroid, regular guaifenesin, and use of a mucous clearance devic e as needed appears to be managing her problem relatively well. She did have an increase in symptoms with worse air-quality. This past year she has not required antibiotic therapy for an exacerbation of bronchiectasis. In the past, she has noted improvement following a cour se of antibiotic for another indication. 2. BRONCHITIS, OBSTRUCTIVE CHRONIC She has a 70-jmcu-sqlo smoking history. Fortunately, pulmonary function test performed in 2008 showed very little airflow obstruction. This may contribute to her cough is well. 3. Asthma, extrinsic She did have eosinophilia when she was first seen in 2008. She also describes airway reacti vity if she is around dogs or cats. Her history from childhood also suggests possible childh ood asthma. This is an additional indication for ongoing use of her inhaled corticosteroid a lthough she has very little airflow obstruction by pulmonary function test criteria. Becaus e of the symptoms she is experiencing on exposure to cold air, we will have her try Atrovent inhaler before this type of exposure. Previously she has not tolerated Spiriva or albutero l inhalers. 4. Allergic rhinitis due to pollen She does have a lot of allergy symptoms throughout the year and is aware of multiple trigge rs. She remains on cetirizine and fluticasone nasal spray regularly. She no longer finds a n eed for ipratropium nasal spray. PLAN: 1. Continue Pulmicort inhaler 2 puffs daily. 2. Continue guaifenesin daily to help with mucus management. 3. She should continue to use the Acapella device as needed to clear mucus. 4. Trial of Atrovent inhaler using 2 puffs about 30 minutes before going out in cold air. Prescription was sent to her pharmacy. 5. Continue fluticasone nasal spray daily. 6. Continue cetirizine daily. 7. She has already had a influenza vaccine for this season. 8. Followup in one year or earlier if problems. She requested her next followup Appointm ent be delayed until the spring to avoid needing to travel during wintertime. Brandon Terry Cc: Dr. Santiago Valdes Portions of this documentation were transcribed using voice recognition software. Every eff ort has been made to ensure accuracy; however, unintended grammatical and/or spelling errors may be present due to inadvertent computerized agriscience technology instructor errors. If there are any ques tions regarding the agriscience technology instructor, please contact our office. documented in th is encounter Plan of Treatment +--------+ + + + + | Date | Type | Specialty | Care Team | Description | +--------+ + + + + | 03/09/ | Office | Cardiology | [place], | | | 2018 | Visit | | MD Lucila WIGGINS | | | | | | [place] | | | | | | [id number] [...] [place] | | | | | | [address] | | | | | | | [...]
--- OUTSIDE RECORDS SUMMARY | ~2019-03-06 | XMS | Encounter Summary ---
Demographics + + + | Address | [address] | | | [place] [address] | + + + | Home Phone | | + + + | Preferred Language | Unknown | + + + | Marital Status | | + + + | Episcopal Affiliation | 1041 | + + + | Race | Unknown | + + + | Ethnic Group | Unknown | + + + Author + + + | Author | [facility] | | | and [place] | + + + | Organization | [facility] | | | and [place] | + + + | Address | Unknown | + + + | Phone | Unavailable | + + + Support + + + + + | Name | Relationship | Address | Phone | + + + + + | Alferdo Ireland Jr. | ECON | [address] | | | | | [place] | | | | | [address] | | + + + + + | Rivka Palma | ECON | Unknown | | + + + + + | Geno Kendall | ECON | Unknown | | + + + + + Care Team Providers + +------+ + | Care Machinist/Machine Builder Name | Role | Phone | + [...] Description | +--------+--------+ + + + | 12/10/ | Refill | [facility] | Td Mondragon MD | Medication Refill | | 2019 | | PULMONOLOGY [address] | | | | | [address] | [place], [place] | | | | | [place], [place] | [address] | | | | | [address] | | | | | | [phone] | | | +--------+--------+ + + + [...] [place] | | | | | | [address] | | | | | | | [...] [place] | | | | | | [address] | | | | | | | | +--------+ + + + + documented as of this encounter Visit Diagnoses Not on filedocumented in this encounter"
--- OUTSIDE RECORDS SUMMARY | ~2019-03-06 | XMS | Encounter Summary ---
Demographics + + + | Address | [address] | | | [place] [address] | + + + | Home Phone [...] [place], [place] | | | | | [address] | | + + + + + | Rivka Palma | ECON | Unknown | | + + + + + | Geno Kendall | ECON | Unknown | | + + + + + Care Team Providers + +------+ + | Care Metallurgical Engineer Name | Role | Phone | + +------+ + | Lorenzo Valdes MD | PCP | | + +------+ + Encounter Details +--------+ + + + + | Date | Type | Department | Care Team | Description | +--------+ + + + + | 09/27/ | Hospital | [facility] | Conversion | Diagnosis unknown | | 2018 | Encounter | CONVERSION [address] | Transaction, | | | | | [address] | Provider Unknown | | | | | [place] | [phone] | | | | | [address] | | | | | | [phone] | | | +--------+ + + + [...] [place] | | | | | | [address] | | | | | | | [...] [place] | | | | | | [address] | | | | | | | | +--------+ + + + + documented as of this encounter Procedures + +--------+ + + + | Procedure Name | Priori | Date/Time | Associated Diagnosis | Comments | | | ty | | | | + +--------+ + + + | XR PELVIS COMPLETE 3 | Routin | 09/27/2017 | | Results for this | | + VW | e | 8:26 PM | | procedure are in the | | | | PDT | | results section. | + +--------+ + + + documented in this encounter Results XR Pelvis Complete 3 + Vw (09/27/2017 8:26 PM PDT) + + | Specimen | + + | | + + + + + | Narrative | Performed At | + + + | This is a non-reportable procedure without a radiologist report and | | | is used for image storage only | | + + + + + | Procedure Note | + + | César Hakwins - 11/24/2018 9:14 AM PDT This is [...]
--- OUTSIDE RECORDS SUMMARY | ~2019-03-06 | XMS | Encounter Summary ---
Demographics + + + | Address | [address] | | | [place] [address] | + + + | Home Phone | | + + + | Preferred Language | Unknown | + + + | Marital Status | | + + + | Judaism Affiliation | 1041 | + + + | Race | Unknown | + + + | Ethnic Group | Unknown | + + + Author + + + | Author | [facility] | | | and [place] | + + + | Organization | [facility] | | | [...] [place], [place] | | | | | [address] | | + + + + + | Rivka Palma | ECON | Unknown | | + + + + + | Geno Kendall | ECON | Unknown | | + + + + + Care Team Providers + +------+ + | Care Health Analyst Name | Role | Phone | + +------+ + PCP | Unavailable | + +------+ + Encounter Details +--------+ + + + + | Date | Type | Department | Care Team | Description | +--------+ + + + + | 03/18/ | Hospital | [facility] | Christina Mead | | | 2009 | Encounter | MED CTR [facility] INTRA OP | [address] | | | | | [address] | [place], | | | | | [place] | [place] [address] | | | | | [address] | [phone] | | | | | [phone] | | | +--------+ + + + [...] [place] | | | | | | [address] | | | | | | | [...] [place] | | | | | | [address] | | | | | | | | +--------+ + + + + documented as of this encounter Visit Diagnoses Not on filedocumented in this encounter"
--- OUTSIDE RECORDS SUMMARY | ~2019-03-06 | XMS | Encounter Summary ---
Demographics + + + | Address | [address] | | | [place] [address] | + + + | Home Phone | | + + + | Preferred Language | Unknown | + + + | Marital Status | | + + + | Islam Affiliation | 1041 | + + + | Race | Unknown | + + + | Ethnic Group | Unknown | + + + Author + + + | Author | [facility] | | | and [place] | + + + | Organization | [facility] | | | [...] [place], [place] | | | | | [address] | | + + + + + | Rivka Palma | ECON | Unknown | | + + + + + | Geno Kendall | ECON | Unknown | | + + + + + Care Team Providers + +------+ + | Care Hotel Custodian Name | Role | Phone | + +------+ + | Lorenzo Valdes MD | PCP | | + +------+ + Encounter Details +--------+ + + + + | Date | Type | Department | Care Team | Description | +--------+ + + + + | 05/17/ | Orders Only | [facility] | Kenia Dent MD | | | 2015 | | CARDIOLOGY [place] | [address] | | | | | [address] | [place] [address] | | | | | [address] | [phone] | | | | | [place], [place] | | | | | | [address] | | | | | | [phone] | | | +--------+ + + + [...] [place] | | | | | | [address] | | | | | | | [...] [place] | | | | | | [address] | | | | | | | | +--------+ + + + + documented as of this encounter Procedures + +--------+ + + + | Procedure Name | Priori | Date/Time | Associated Diagnosis | Comments | | | ty | | | | + +--------+ + + + | NM MYOCARDIAL | Routin | 05/17/2014 | | Results for this | | PERFUSION MULT SPECT | e | 1:00 PM | | procedure are in the | | | | PST | | results section. | + +--------+ + + + documented in this encounter Results NM Myocardial Perfusion Mult SPECT (05/17/2014 1:00 PM PST) + + | Specimen | + + | | + + + + + | Impressions | Performed At | + + + | 1. Abnormal study. Large yus-qquga-zepqc jpjehec-gqbhcto-xzflq | | | infarction with minimal ischemia. LV enlarged. LVEF 18 % 2. | | | Stress ECG: non-diagnostic due to paced rhythm. 3. Occ PVC noted | | | 4. No Lexiscan induced chest pain. 5. No previous test for | | | comparison. Electronically signed by Thomas Bynum DO on | | | 05/17/2014 11:57 PM | | + + + + + + | Narrative | Performed At | + + + | [facility] Nuclear Lexiscan Stress Test History: | | | 83 Year old female being evaluated for chest pain. Rest Data: | | | HR: 69 bpm BP: 120 /72 Baseline ECG: sinus rhythm, A-sensed/V-paced | | | 100%. Stress Data: HR: 100 bpm BP: 123/75 Reaction to Lexiscan: | | | shortness of breath, chest tightness. Stress ECG: non-diagnostic due | | | to paced rhythm. Arrhythmias: occ PVC Myocardial Perfusion: | | | Images are adequate for interpretation, however, significant GI | | | uptake. No significant RB or lung uptake large area, lateral and | | | postero-basal, moderate perfusion defect on Stress images, minimal | | | improvement on Rest images. SSS: 17 SRS: 13 SDS: 4 TID: 1.03 | | | Gated Images: Rest EDV: 309 mL Rest ESV: 250 mL Rest EF: 19 % Stress | | | EDV: 307 mL Stress ESV: 251 mL Stress EF: 18 % No evidence of | | | regional wall motion abnormality Procedure: 9.9 mCi of 99m Tc | | | Myoview was given intravenously for rest images. 28.3 mCi of 99m Tc | | | Myoview was given intravenously for stress images at 00:35. Effective | | | Dose Equivalent 13.1 mSv The patient received 0.4mg Lexiscan | | | intravenously. Aminophylline 50mg was given. | | + + + + + | Procedure Note | + + | César Hawkins Conversion - [facility]03/2018 12:[facility] | Lexiscan Stress Test History:83 Year old female being evaluated for chest pain. Rest | | Data:HR: 69 bpm BP: 120 /72Baseline ECG: sinus rhythm, A-sensed/V-paced 100%. Stress | | Data:HR: 100 bpm BP: 123/75Reaction to Lexiscan: shortness of breath, chest | | tightness.Stress ECG: non-diagnostic due to paced rhythm.Arrhythmias: occ PVC Myocardial | | Perfusion:Images are adequate for interpretation, however, significant GI uptake.No | | significant RB or lung uptakelarge area, lateral and postero-basal, moderate perfusion | | defect on Stress images, minimal improvement on Rest images.SSS: 17 SRS: 13 SDS: 4 TID: | | 1.03 Gated Images:Rest EDV: 309 mL Rest ESV: 250 mL Rest EF: 19 %Stress EDV: 307 mL | | Stress ESV: 251 mL Stress EF: 18 %No evidence of regional wall motion abnormality | | Procedure:9.9 mCi of 99m Tc Myoview was given intravenously for rest images.28.3 mCi of | | 99m Tc Myoview was given intravenously for stress images at 00:35.Effective Dose | | Equivalent 13.1 mSvThe patient received 0.4mg Lexiscan intravenously.Aminophylline 50mg | | was given. IMPRESSION: 1. Abnormal study. Large huo-ucvec-ppzuj gnzxwng-bkrbdyc-pcton | | infarction with minimal ischemia. LV enlarged. LVEF 18 %2. Stress ECG: | | non-diagnostic due to paced rhythm.3. Occ PVC noted4. No Lexiscan induced chest | | pain.5. No previous test for comparison. Electronically signed by Thomas Bynum DO on | | 05/17/2014 11:57 PM | |No significant RB or lung uptake | |large area, lateral and postero-basal, moderate perfusion defect on Stress images, minimal improvement on Rest images. | |SSS: 17 SRS: 13 SDS: 4 TID: 1.03 | | | |Gated Images: | |Rest EDV: 309 mL Rest ESV: 250 mL Rest EF: 19 % | |Stress EDV: 307 mL Stress ESV: 251 mL Stress EF: 18 % | |No evidence of regional wall motion abnormality | | | |Procedure: | |9.9 mCi of 99m Tc Myoview was given intravenously for rest images. | |28.3 mCi of 99m Tc Myoview was given intravenously for stress images at 00:35. | |Effective Dose Equivalent 13.1 mSv | |The patient received 0.4mg Lexiscan intravenously. | |Aminophylline 50mg was given. | | | |IMPRESSION: | |1. Abnormal study. Large tkc-yafol-ufzaa kiziiwi-lskfuvv-yecyo infarction with minimal is chemia. LV enlarged. LVEF 18 % | |2. Stress ECG: non-diagnostic due to paced rhythm. | |3. Occ PVC noted | |4. No Lexiscan induced chest pain. | |5. No previous test for comparison. | | | | | + + documented in this encounter Visit Diagnoses Not on filedocumented in this encounter"
--- OUTSIDE RECORDS SUMMARY | ~2019-03-06 | XMS | Encounter Summary ---
Demographics + + + | Address | [address] | | | [place] [address] | + + + | Home Phone | | + + + | Preferred Language | Unknown | + + + | Marital Status | | + + + | Faith Affiliation | 1041 | + + + | Race | Unknown | + + + | Ethnic Group | Unknown | + + + Author + + + | Author | [facility] | | | and [place] | + + + | Organization | [facility] | | [...] [place], [place] | | | | | [address] | | + + + + + | Rivka Palma | ECON | Unknown | | + + + + + | Geno Kendall | ECON | Unknown | | + + + + + Care Team Providers + +------+ + | Care Tankroom Worker Name | Role | Phone | + +------+ + | Lorenzo Valdes MD | PCP | | + +------+ + Encounter Details +--------+ + + + + | Date | Type | Department | Care Team | Description | +--------+ + + + + | 01/20/ | Documentati | [facility] | Brandon Terry | | | 2013 | on | PULMONARY [address] | [place] [address] [address] | | | | | [place], | [place], [place] | | | | | [place] [address] | [address] | | | | | [phone] | | | +--------+ + + + [...] [place] | | | | | | [address] | | | | | | | [...] [place] | | | | | | [id number] | | | | | | | | +--------+ + + + + documented as of this encounter Visit Diagnoses + + | Diagnosis | + + | CAD (coronary artery disease) - Primary Coronary atherosclerosis of unspecified type | | of vessel, [place] or graft | + + documented in this encounter"
--- OUTSIDE RECORDS SUMMARY | ~2019-03-06 | XMS | Encounter Summary ---
Demographics + + + | Address | [address] | | | [place] [address] | + + + | Home Phone | | + + + | Preferred Language | Unknown | + + + | Marital Status | | + + + | Adventist Affiliation | 1041 | + + + | Race | Unknown | + + + | Ethnic Group | Unknown | + + + Author + + + | Author | [facility] | | | and [place] | + + + | Organization | [facility] | | | [...] [place] | | | | | [address] | | + + + + + | Rivka Palma | ECON | Unknown | | + + + + + | Geno Kendall | ECON | Unknown | | + + + + + Care Team Providers + +------+ + | Care Intervention Nurse Name | Role | Phone | + [...] Description | +--------+--------+ + + + | 02/11/ | Refill | [facility] | Td Mondragon MD | Medication Refill | | 2019 | | PUL[address]OLOGY [address] | [address] | | | | | [address] | [place], [place] | | | | | [place], [place] | [address] | | | | | [address] | | | | | | [phone] | | | +--------+--------+ + + + [...] [place] | | | | | | [address] | | | | | | | [...] [place] | | | | | | [address] | | | | | | | | +--------+ + + + + documented as of this encounter Visit Diagnoses + + | Diagnosis | + + | Moderate persistent asthma, unspecified whether complicated - Primary | + + documented in this encounter"
--- OUTSIDE RECORDS SUMMARY | ~2019-03-06 | XMS | Encounter Summary ---
Demographics + + + | Address | [address] | | | [place] [address] | + + + | Home Phone | | + + + | Preferred Language | Unknown | + + + | Marital Status | | + + + | Anabaptist Affiliation | 1041 | + + + | Race | Unknown | + + + | Ethnic Group | Unknown | + + + Author + + + | Author | [facility] | | | and [place] | + + + | Organization | [facility] | | | [...] [place], [place] | | | | | [address] | | + + + + + | Rivka Palma | ECON | Unknown | | + + + + + | Geno Kendall | ECON | Unknown | | + + + + + Care Team Providers + +------+ + | Care Press Leader Name | Role | Phone | + +------+ + | Lorenzo Valdes MD | PCP | | + +------+ + Reason for Visit +--------+ + | Reason | Comments | +--------+ + | Cough | | +--------+ + Encounter Details +--------+ + + + + | Date | Type | Department | Care Team | Description | +--------+ + + + + | 09/02/ | Documentati | [facility] | Brandon Terry | Cough | | 2013 | on | PULMONARY [address] | [address] [address] [address] | | | | | [place], | [place], [place] | | | | | [place] [address] | [address] | | | | | [phone] | | | +--------+ + + + [...] encounter Progress Notes Brandon Terry MD - 09/02/2013 3:16 PM PDTThe recent chest xray on Mrs. Beka bell rmed 08/29/13 shows a possible infiltrate at the right costophrenic angle. It is notable vick t her prior CXR from 01/21/10 shows some opacity in the very kelvin e location, so there may be a chronic abnormality in this area. She has not had fever, but has had increased sputum pr oduction and dyspnea. We will repeat a sputum culture to look for a pathogen. She should co ntact us if symptoms change. In the past she has had such symptoms due to worse air quality . 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
--- OUTSIDE RECORDS SUMMARY | ~2019-03-06 | XMS | Encounter Summary ---
Demographics + + + | Address | [address] | | | [place] [address] | + + + | Home Phone [...] + | Author | [facility] | | | and [place] | + + + | Organization | [facility] | | | and [...] [place], [place] | | | | | [address] | | + + + + + | Rivka Palma | ECON | Unknown | | + + + + + | Geno Kendall | ECON | Unknown | | + + + + + Care Team Providers + +------+ + | Care Copy Room Technician Name | Role | Phone | + +------+ + | Lorenzo Valdes MD | PCP | | + +------+ + Encounter Details +--------+ + + + + | Date | Type | Department | Care Team | Description | +--------+ + + + + | 09/21/ | Orders Only | [facility] | Conversion | | | 2014 | | CARDIOLOGY [place] | Transaction, | | | | | [address] | Provider Unknown | | | | | [place], [place] | [phone] | | | | | [address] | | | | | | [phone] | | | +--------+ + + + [...] [place] | | | | | | [address] | | | | | | | [...] [place] | | | | | | [address] | | | | | | | | +--------+ + + + + documented as of this encounter Procedures + +--------+ + + + | Procedure Name | Priori | Date/Time | Associated Diagnosis | Comments | | | ty | | | | + +--------+ + + + | LIPID PANEL | Routin | 09/21/2014 | | Results for this | | | e | 8:54 AM | | procedure are in the | | | | PDT | | results section. | + +--------+ + + + | CK TOTAL | Routin | 09/21/2014 | | Results for this | | | e | 8:54 AM | | procedure are in the | | | | PDT | | results section. | + +--------+ + + + | RENAL FUNCTION PANEL | Routin | 09/21/2014 | | Results for this | | | e | 8:54 AM | | procedure are in the | | | | PDT | | results section. | + +--------+ + + + | COMPREHENSIVE | Routin | 09/21/2014 | | Results for this | | METABOLIC PANEL | e | 8:54 AM | | procedure are in the | | | | PDT | | results section. | + +--------+ + + + documented in this encounter Results CK Total (09/21/2014 8:54 AM PDT) + +-------+ + + + | Component | Value | Ref Range | Performed | Pathologist | | | | | At | Signature | + +-------+ + + + | CK, Total | 43 | 24 - 170 U/L | EXTERNAL [...] + +---------+ + + Renal Function Panel (09/21/2014 8:54 AM PDT) + + + + + + | Component | Value | Ref Range | Performed | Pathologist | | | | | At | Signature | + + + + + + | Glucose, | 149 (A) | 70 - 100 mg/dL | EXTERNAL | | | Fasting | | | LAB | | + + + + + + | BUN | 42 (A) | 6 - 23 mg/dL | EXTERNAL | | | | | | LAB | | + + + + + + | Creatinine | 1.59 (A) | 0.70 - 1.11 | EXTERNAL | | | | | mg/dL | LAB | | + + + + + + | PHOSPHORUS | | mg/dL | EXTERNAL | | | | | | LAB | | + + + + + + | Albumin | 4.3 | 3..5-5.0 | EXTERNAL | | | | | | LAB | | + + + + + + | Na | 138 | 132 - 143 | EXTERNAL | | | | | mmol/L | LAB | | + + + + + + | K | 4.2 | 3.6 - 5.1 | EXTERNAL | | | | | mmol/L | LAB | | + + + + + + | Cl | 99 | 95 - 112 mmol/L | EXTERNAL | | | | | | LAB | | + + + + + + | CO2 | 24 | 19 - 31 mmol/L | EXTERNAL | | | | | | LAB | | + + + + + + | Anion Gap | 19.2 | 7 - 21 mmol/L | EXTERNAL | | | | | | LAB | | + + + + + + | eGFR if not | | | EXTERNAL | | | | | | LAB | | | [facility] | | | | | + + + + + + | Phosphorus, | 4.2 | 2.5 - 5.0 | EXTERNAL | | | Inorganic | | | LAB | | + + + + + + | BUN/Creatin | 26.4 | 6.0 - 28.6 | EXTERNAL | | | ine Ratio | | | LAB | | + + + + + + | Calcium | 9.8 | 8.4 - 10.2 | EXTERNAL | | | | | mg/dL | LAB | | + + + + + + | Estimated | 31 (A) | 60 mg/dL | EXTERNAL | [...] | | | + +---------+ + + Lipid Panel (09/21/2014 8:54 AM PDT) + +---------+ + + + | Component | Value | Ref Range | Performed | Pathologist | | | | | At | Signature | + +---------+ + + + | Cholesterol | 167 | 200 mg/dL | EXTERNAL | | | | | | LAB | | + +---------+ + + + | Triglycerid | 187 (A) | 30 - 150 mg/dL | EXTERNAL | | | es | | | LAB | | + +---------+ + + + | HDL | 58.3 | 40 mg/dl | EXTERNAL | | | | | | LAB | | + +---------+ + + + | LDL | 71 | 100 mg/dL | EXTERNAL | | | Cholesterol | | | LAB | | | , | | | | | | Calculated, | | | | | | External | | | | | + +---------+ + + + | LDl/HDL | | | EXTERNAL | | | Ratio | | | LAB | | + +---------+ + + + | Chol/HDL | 2.9 | 4.44 | EXTERNAL | | | Ratio | | | LAB | | + +---------+ + + + | VLDL | 37 | 4 - 40 mg/dL | EXTERNAL | | | | | | LAB | | + +---------+ + + + | Non HDL | 109 | 130 | EXTERNAL | | | Chol. | | | LAB | | | (LDL+VLDL) | | | | | + +---------+ [...] + +---------+ + + Comprehensive Metabolic Panel (09/21/2014 8:54 AM PDT) + + + + + + | Component | Value | Ref Range | Performed | Pathologist | | | | | At | Signature | + + + + + + | Glucose, | 149 (A) | 70 - 100 mg/dL | EXTERNAL | | | Fasting | | | LAB | | + + + + + + | BUN | 42 (A) | 6 - 23 mg/dL | EXTERNAL | | | | | | LAB | | + + + + + + | Creatinine | 1.59 (A) | 0.70 - 1.11 | EXTERNAL | | | | | mg/dL | LAB | | + + + + + + | BUN/Creatin | 26.4 | 6.0 - 28.6 | EXTERNAL | | | ine Ratio | | | LAB | | + + + + + + | Calcium | 9.8 | 8.4 - 10.2 | EXTERNAL | | | | | mg/dL | LAB | | + + + + + + | Protein, | 7.0 | 6.0 - 8.0 g/dL | EXTERNAL | | | Total | | | LAB | | + + + + + + | Albumin | 4.3 | 3.5 - 5.0 | EXTERNAL | | | | | | LAB | | + + + + + + | Globulin | 2.7 | 1.8 - 3.5 | EXTERNAL | | | | | | LAB | | + + + + + + | A/G Ratio | 1.6 | 1.1 - 2.4 | EXTERNAL | | | | | | LAB | | + + + + + + | Bilirubin | 0.6 | 0.0 - 1.2 mg/dL | EXTERNAL | | | Total | | | LAB | | + + + + + + | ALP, | 86 | 30 - 128 | EXTERNAL | | | External | | | LAB | | + + + + + + | ALT | 10 | 7 - 52 U/L | EXTERNAL | | | | | | LAB | | + + + + + + | AST | 18 | 13 - 39 U/L | EXTERNAL | | | | | | LAB | | + + + + + + | Na | 138 | 132 - 143 | EXTERNAL | | | | | mmol/L | LAB | | + + + + + + | K | 4.2 | 3.6 - 5.1 | EXTERNAL | | | | | mmol/L | LAB | | + + + + + + | Cl | 99 | 95 - 112 mmol/L | EXTERNAL | | | | | | LAB | | + + + + + + | CO2 | 24 | 19 - 31 mmol/L | EXTERNAL | | | | | | LAB | | + + + + + + | Anion Gap | 19.2 | 7 - 21 mmol/L | EXTERNAL | | | | | | LAB | | + + + + + + | Estimated | 31 (A) | 60 mg/dL | EXTERNAL | [...]
--- OUTSIDE RECORDS SUMMARY | ~2019-03-06 | XMS | Encounter Summary ---
Demographics + + + | Address | [address] | | | [place] [address] | + + + | Home Phone | | + + + | Preferred Language | Unknown | + + + | Marital Status | | + + + | Christianity Affiliation | 1041 | + + + | Race | Unknown | + + + | Ethnic Group | Unknown | + + + Author + + + | Author | [facility] | | | and [place] | + + + | Organization | [facility] | | | [...] [place], [place] | | | | | [address] | | + + + + + | Rivka Palma | ECON | Unknown | | + + + + + | Geno Kendall | ECON | Unknown | | + + + + + Care Team Providers + +------+ + | Care Ict Programmer Name | Role | Phone | + +------+ + PCP | Unavailable | + +------+ + Encounter Details +--------+ + + + + | Date | Type | Department | Care Team | Description | +--------+ + + + + | 03/18/ | Hospital | [facility] | Christina Mead | | | 2009 | Encounter | MED CTR MP INTRA OP | [address] [employer] | | | | | [address] | [place], | | | | | [place] | [place] [address] | | | | | [address] | [phone] | | | | | [phone] | | | +--------+ + + + [...] [place] | | | | | | [address] | | | | | | | [...] [place] | | | | | | [address] | | | | | | | | +--------+ + + + + documented as of this encounter Visit Diagnoses Not on filedocumented in this encounter"
--- OUTSIDE RECORDS SUMMARY | ~2019-03-06 | XMS | Encounter Summary ---
Demographics + + + | Address | [address] | | | [place] [address] | + + + | Home Phone | | + + + | Preferred Language | Unknown | + + + | Marital Status | Single | + + + | Orthodoxy Affiliation | Unknown | + + + | Race | Unknown | + + + | Ethnic Group | Other Race | + + + Author + + + | Author | [facility] | + + + | Organization | [facility] | + + + [...] Team Providers + +------+ + | Care Certified Coding Specialist Name | Role | Phone | + +------+ + PCP | Unavailable | + +------+ + Encounter Details +--------+ + + + + | Date | Type | Department | Care Team | Description | +--------+ + + + + | 11/04/ | Document-Sc | Health Information | Unknown . | | | 2018 | anned | Services [address] | | | | | | [facility] | | | | | | Mailcode: [id number] | | | | | | [facility] | | | | | | [place], [place] | | | | | | [address] | | | | | | [phone] | | | +--------+ + + + [...]
--- OUTSIDE RECORDS SUMMARY | ~2019-03-06 | XMS | Encounter Summary ---
Demographics + + + | Address | [address] | | | [place] [address] | + + + | Home Phone [...] [place], [place] | | | | | [address] | | + + + + + | Rivka Palma | ECON | Unknown | | + + + + + | Geno Kendall | ECON | Unknown | | + + + + + Care Team Providers + +------+ + | Care Security Guard Name | Role | Phone | + +------+ + | Lorenzo Valdes MD | PCP | | + +------+ + Encounter Details +--------+ + + + + | Date | Type | Department | Care Team | Description | +--------+ + + + + | 03/06/ | Orders Only | [facility] | Conversion | | | 2013 | | NEPHROLOGY [place] | Transaction, | | | | | [address] [facility] [facility] | Provider Unknown | | | | | [place] | [phone] | | | | | [address] | | | | | | [phone] | | | +--------+ + + + [...] [place] | | | | | | [address] | | | | | | | [...] [place] | | | | | | [address] | | | | | | | | +--------+ + + + + documented as of this encounter Procedures + +--------+ + + + | Procedure Name | Priori | Date/Time | Associated Diagnosis | Comments | | | ty | | | | + +--------+ + + + | MAGNESIUM | Routin | 03/06/2014 | | Results for this | | | e | 12:00 AM | | procedure are in the | | | | PST | | results section. | + +--------+ + + + | RENAL FUNCTION PANEL | Routin | 03/06/2014 | | Results for this | | | e | 12:00 AM | | procedure are in the | | | | PST | | results section. | + +--------+ + + + documented in this encounter Results Magnesium (03/06/2014 12:00 AM PST) + +-------+ + + [...] + +---------+ + + Renal Function Panel (03/06/2014 12:00 AM PST) + + + + + + | Component | Value | Ref Range | Performed | Pathologist | | | | | At | Signature | + + + + + + | Glucose, | 80 | 70 - 100 mg/dL | EXTERNAL | | | Fasting | | | LAB | | + + + + + + | BUN | 28 (A) | 6 - 23 mg/dL | EXTERNAL | | | | | | LAB | | + + + + + + | Creatinine | 1.13 (A) | 0.7 - 1.11 | EXTERNAL | | | | | mg/dL | LAB | | + + + + + + | PHOSPHORUS | 4 | 2.5 - 5 mg/dL | EXTERNAL | | | | | | LAB | | + + + + + + | Albumin | 3.9 | 3.5 - 5 | EXTERNAL | | | | | | LAB | | + + + + + + | Na | 137 | 132 - 143 | EXTERNAL | | | | | mmol/L | LAB | | + + + + + + | K | 4.3 | 3.6 - 5.1 | EXTERNAL | | | | | mmol/L | LAB | | + + + + + + | Cl | 100 | 95 - 112 mmol/L | EXTERNAL | | | | | | LAB | | + + + + + + | CO2 | 27 | 19 - 31 mmol/L | EXTERNAL | | | | | | LAB | | + + + + + + | Anion Gap | 14.3 | 7 - 21 mmol/L | EXTERNAL | | | | | | LAB | | + + + + + + | eGFR if not | | | EXTERNAL | | | | | | LAB | | | PANAMANIAN | | | | | + + + + + + | Phosphorus, | 4 | 2.5 - 5 | EXTERNAL | | | Inorganic | | | LAB | | + + + + + + | BUN/Creatin | 24.8 | 6 - 28.6 | EXTERNAL | | | ine Ratio | | | LAB | | + + + + + + | Calcium | 9.5 | 8.4 - 10.2 | EXTERNAL | | | | | mg/dL | LAB | | + + + + + + | Estimated | 46 (A) | 60 mg/dL | EXTERNAL | [...]
--- OUTSIDE RECORDS SUMMARY | ~2019-03-06 | XMS | Encounter Summary ---
Demographics + + + | Address | [address] | | | [place] [address] | + + + | Home Phone [...] [place], [place] | | | | | [address] | | + + + + + | Rivka Palma | ECON | Unknown | | + + + + + | Geno Kendall | ECON | Unknown | | + + + + + Care Team Providers + +------+ + | Care Risk And Insurance Consultant Name | Role | Phone | + +------+ + PCP | Unavailable | + +------+ + Encounter Details +--------+ + + + + | Date | Type | Department | Care Team | Description | +--------+ + + + + | 09/08/ | [facility] | [facility] | Brandon Terry | | | 2008 | Encounter | MED CTR GENERIC OP | [address], [address] | | | | | CONV DEPT [address] | [place], [place] | | | | | [place], | [address] | | | | | [place] [address] | | | | | | [phone] | | | +--------+ + + + [...] [place] | | | | | | [address] | | | | | | | [...] [place] | | | | | | [address] | | | | | | | | +--------+ + + + + documented as of this encounter Visit Diagnoses Not on filedocumented in this encounter"
--- OUTSIDE RECORDS SUMMARY | ~2019-03-06 | XMS | Encounter Summary ---
Demographics + + + | Address | [address] | | | [place] [address] | + + + | Home Phone | | + + + | Preferred Language | Unknown | + + + | Marital Status | | + + + | Druze Affiliation | 1041 | + + + [...] [place], [place] | | | | | [address] | | + + + + + | Rivka Palma | ECON | Unknown | | + + + + + | Geno Kendall | ECON | Unknown | | + + + + + Care Team Providers + +------+ + | Care Land Measurer Name | Role | Phone | + +------+ + | Lorenzo Valdes MD | PCP | | + +------+ + Encounter Details +--------+ + + + + | Date | Type | Department | Care Team | Description | +--------+ + + + + | 08/02/ | Hospital | [facility] | Conversion | | | 2015 | Encounter | [facility] | Transaction, | | | | | [address] | Provider Unknown | | | | | [place], [place] | [phone] | | | | | [address] | | | | | | [phone] | | | +--------+ + + + [...] + + + +---------+ + + | budesonide | Inhale 2 puffs into | 1 each | 2 | 06/27/19 | | | (PULMICORT | the lungs Daily. | | | 15 | 5 | | FLEXHALER) 180 | | | | | | | mcg/puff inhaler | | | | | | [...] | | | | | | | ([facility]), Bronchitis, | | | | [...] [place] | | | | | | [address] | | | | | | | [...] [place] | | | | | | [address] | | | | | | | | +--------+ + + + + documented as of this encounter Visit Diagnoses Not on filedocumented in this encounter"
--- OUTSIDE RECORDS SUMMARY | ~2019-03-06 | XMS | Encounter Summary ---
Demographics + + + | Address | [address] | | | [place] [address] | + + + | Home Phone [...] [place], [place] | | | | | [address] | | + + + + + | Rivka Palma | ECON | Unknown | | + + + + + | Geno Kendall | ECON | Unknown | | + + + + + Care Team Providers + +------+ + | Care Software Quality Assurance Specialist Name | Role | Phone | + +------+ + | Lorenzo Valdes MD | PCP | | + +------+ + Encounter Details +--------+ + + + + | Date | Type | Department | Care Team | Description | +--------+ + + + + | 04/25/ | Orders Only | [facility] | Conversion | | | 2016 | | NEPHROLOGY [place] | Transaction, | | | | | [address] [facility] | Provider Unknown | | | | | [address] [facility], [place] | [phone] | | | | | [address] | | | | | | [phone] | | | +--------+ + + + [...] [place] | | | | | | [address] | | | | | | | [...] [place] | | | | | | [address] | | | | | | | [...] - 1.030 | EXTERNAL | | | [place] | | | LAB | | + [...] | | | LAB | | | [place] | | | | | + + [...]
--- OUTSIDE RECORDS SUMMARY | ~2019-03-06 | XMS | Encounter Summary ---
Demographics + + + | Address | [address] | | | [place] [address] | + + + | Home Phone | | + + + | Preferred Language | Unknown | + + + | Marital Status | | + + + | Mormonism Affiliation | 1041 | + + + | Race | Unknown | + + + | Ethnic Group | Unknown | + + + Author + + + | Author | [facility] | | | and [place] | + + + | Organization | [facility] | | [...] [place], [place] | | | | | [address] | | + + + + + | Rivka Palma | ECON | Unknown | | + + + + + | Geno Kendall | ECON | Unknown | | + + + + + Care Team Providers + +------+ + | Care Health Program Manager Name | Role | Phone | [...] + + | 09/06/ | Telephone | [facility] | Brandon Terry | Other (antibiotics) | | 2013 | | PULMONARY [address] | [place] [address] [address] | | | | | [place], | [place], [place] | | | | | [place] [address] | [address] | | | | | [phone] | | | +--------+ + + + [...] [place] | | | | | | [address] | | | | | | | [...] [place] | | | | | | [id number] | | | | | | | | +--------+ + + + + documented as of this encounter Visit Diagnoses Not on filedocumented in this encounter"
--- OUTSIDE RECORDS SUMMARY | ~2019-03-06 | XMS | Encounter Summary ---
Demographics + + + | Address | [address] | | | [place] [address] | + + + | Home Phone | | + + + | Preferred Language | Unknown | + + + | Marital Status | | + + + | Mandaen Affiliation | 1041 | + + + | Race | Unknown | + + + | Ethnic Group | Unknown | + + + Author + + + | Author | [facility] | | | and [place] | + + + | Organization | [facility] | | | [...] [place], [place] | | | | | [address] | | + + + + + | Rivka Palma | ECON | Unknown | | + + + + + | Geno Kendall | ECON | Unknown | | + + + + + Care Team Providers + +------+ + | Care Value Stream Leader Name | Role | Phone | + +------+ + | Lorenzo Valdes MD | PCP | | + +------+ + Encounter Details +--------+ + + + + | Date | Type | Department | Care Team | Description | +--------+ + + + + | 10/17/ | Orders Only | [facility] | Conversion | | | 2013 | | NEPHROLOGY [place] | Transaction, | | | | | [address] [facility] | Provider Unknown | | | | | [place] | [phone] | | | | | [address] | | | | | | [phone] | | | +--------+ + + + [...] [place] | | | | | | [address] | | | | | | | [...] [place] | | | | | | [address] | | | | | | | | +--------+ + + + + documented as of this encounter Procedures + +--------+ + + + | Procedure Name | Priori | Date/Time | Associated Diagnosis | Comments | | | ty | | | | + +--------+ + + + | CBC WITH MANUAL | Routin | 10/17/2013 | | Results for this | | DIFFERENTIAL | e | 4:45 PM | | procedure are in the | | | | PDT | | results section. | + +--------+ + + + | MAGNESIUM | Routin | 10/17/2013 | | Results for this | | | e | 4:45 PM | | procedure are in the | | | | PDT | | results section. | + +--------+ + + + | RENAL FUNCTION PANEL | Routin | 10/17/2013 | | Results for this | | | e | 4:45 PM | | procedure are in the | | | | PDT | | results section. | + +--------+ + + + documented in this encounter Results CBC with Manual Differential (10/17/2013 4:45 PM PDT) + +-------+ + + + | Component | Value | Ref Range | Performed | Pathologist | | | | | At | Signature | + +-------+ + + + | WBC | 8.9 | 10 | EXTERNAL | | | | | | LAB | | + +-------+ + + + | RED CELL | 4.48 | 10 | EXTERNAL | | | COUNT | | | LAB | | + +-------+ + + + | Hgb | 14.4 | g/dL | EXTERNAL | | | | | | LAB | | + +-------+ + + + | Hematocrit, | 42.7 | % | EXTERNAL | | | POC | | | LAB | | + +-------+ + + + | MCV | 95.2 | fL | EXTERNAL | | | | | | LAB | | + +-------+ + + + | MCH | 32 | pg | EXTERNAL | | | | | | LAB | | + +-------+ + + + | MCHC | 34 | g/dL | EXTERNAL | | | | | | LAB | | + +-------+ + + + | RDW-CV | 13.6 | % | EXTERNAL | | | | | | LAB | | + +-------+ + + + | Platelet | 181 | K/ L | EXTERNAL | | | [...] / L | EXTERNAL | | | Neutrophils | | | LAB | | + [...] | | + +---------+ + + Magnesium (10/17/2013 4:45 PM PDT) + +-------+ + + + | Component | Value | Ref Range | Performed | Pathologist | | | | | At | Signature | + +-------+ + + + | Magnesium | 2.0 | mg/dL | EXTERNAL | | | [...] + +---------+ + + Renal Function Panel (10/17/2013 4:45 PM PDT) + +-------+ + + + | Component | Value | Ref Range | Performed | Pathologist | | | | | At | Signature | + +-------+ + + + | Glucose, | 167 | mg/dL | EXTERNAL | | | Fasting | | | LAB | | + +-------+ + + + | BUN | 33 | mg/dL | EXTERNAL | | | | | | LAB | | + +-------+ + + + | Creatinine | 1.35 | mg/dL | EXTERNAL | | | | | | LAB | | + +-------+ + + + | PHOSPHORUS | | mg/dL | EXTERNAL | | | | | | LAB | | + +-------+ + + + | Albumin | 4.3 | | EXTERNAL | | | | | | LAB | | + +-------+ + + + | Na | 136 | mmol/L | EXTERNAL | | | | | | LAB | | + +-------+ + + + | K | 4.4 | mmol/L | EXTERNAL | | | | | | LAB | | + +-------+ + + + | Cl | 103 | mmol/L | EXTERNAL | | | | | | LAB | | + +-------+ + + + | CO2 | 23 | mmol/L | EXTERNAL | | | | | | LAB | | + +-------+ + + + | Anion Gap | 14.4 | mmol/L | EXTERNAL | | | | | | LAB | | + +-------+ + + + | eGFR if not | | | EXTERNAL | | | | | | LAB | | | TAIWANESE | | | | | + +-------+ + + + | Phosphorus, | 3.1 | | EXTERNAL | | | Inorganic | | | LAB | | + +-------+ + + + | BUN/Creatin | 24.4 | | EXTERNAL | | | ine Ratio | | | LAB | | + +-------+ + + + | Calcium | 9.9 | mg/dL | EXTERNAL | | | | | | LAB | | + +-------+ + + + | Estimated | 38 | mg/dL | EXTERNAL | | | [...]
--- OUTSIDE RECORDS SUMMARY | ~2019-03-06 | XMS | Encounter Summary ---
Demographics + + + | Address | [address] | | | [place] [address] | + + + | Home Phone | | + + + | Preferred Language | Unknown | + + + | Marital Status | | + + + | Synagogue Affiliation | 1041 | + + + | Race | Unknown | + + + | Ethnic Group | Unknown | + + + Author + + + | Author | [facility] | | | and [place] | + + + | Organization | [facility] | | | [...] [place], [place] | | | | | [address] | | + + + + + | Rivka Palma | ECON | Unknown | | + + + + + | Geno Kendall | ECON | Unknown | | + + + + + Care Team Providers + +------+ + | Care Asp Web Developer Name | Role | Phone | + [...] + | 07/21/ | Refill | [facility] | Brandon Terry | Medication Refill | | 2014 | | [address]ULMONARY [address] | [place] [address] | | | | | [place], | [place], [place] | | | | | [place] [address] | [address] | | | | | [phone] | | | +--------+--------+ + + + [...] [place] | | | | | | [address] | | | | | | | [...] [place] | | | | | | [address] | | | | | | | | +--------+ + + + + documented as of this encounter Visit Diagnoses + + | Diagnosis | + + | Bronchiectasis (HCC) - Primary Bronchiectasis without acute exacerbation | + + | BRONCHITIS, OBSTRUCTIVE CHRONIC Obstructive chronic bronchitis without exacerbation | + + documented in this encounter"
--- OUTSIDE RECORDS SUMMARY | ~2019-03-06 | XMS | Encounter Summary ---
Demographics + + + | Address | [address] | | | [place] [address] | + + + | Home Phone | | + + + | Preferred Language | Unknown | + + + | Marital Status | | + + + | Jain Affiliation | 1041 | + + + | Race | Unknown | + + + | Ethnic Group | Unknown | + + + Author + + + | Author | [facility] | | | and [place] | + + + | Organization | [facility] | | [...] [place], [place] | | | | | [address] | | + + + + + | Rivka Palma | ECON | Unknown | | + + + + + | Geno Kendall | ECON | Unknown | | + + + + + Care Team Providers + +------+ + | Care Packaging Machine Operator Name | Role | Phone [...] + + | 09/02/ | Telephone | [facility] | Brandon Terry | Other (sputum) | | 2013 | | PULMONARY [address] | [place] [address] [address] | | | | | [place], | [place], [place] | | | | | [place] [address] | [id number] | | | | | [phone] | | | +--------+ + + + [...] [place] | | | | | | [address] | | | | | | | [...] [place] | | | | | | [address] | | | | | | | [...]
--- OUTSIDE RECORDS SUMMARY | ~2019-03-06 | XMS | Encounter Summary ---
Demographics + + + | Address | [address] | | | [place] [address] | + + + | Home Phone [...] [place], [place] | | | | | [address] | | + + + + + | Rivka Palma | ECON | Unknown | | + + + + + | Geno Kendall | ECON | Unknown | | + + + + + Care Team Providers + +------+ + | Care Brooch And Bracelet Maker Name | Role | Phone | + +------+ + | Lorenzo Valdes MD | PCP | | + +------+ + Encounter Details +--------+ + + + + | Date | Type | Department | Care Team | Description | +--------+ + + + + | 05/15/ | Orders Only | [facility] | Conversion | | | 2014 | | CARDIOLOGY CROWDER | Transaction, | | | | | [address] | Provider Unknown | | | | | [place], [place] | [phone] | | | | | [address] | | | | | | [phone] | | | +--------+ + + + [...] [place] | | | | | | [address] | | | | | | | [...] [place] | | | | | | [address] | | | | | | | | +--------+ + + + + documented as of this encounter Procedures + +--------+ + + + | Procedure Name | Priori | Date/Time | Associated Diagnosis | Comments | | | ty | | | | + +--------+ + + + | EXTERNAL LAB: CBC | Routin | 05/15/2014 | | Results for this | | | e | 1:22 PM | | procedure are in the | | | | PST | | results section. | + +--------+ + + + | B TYPE NATRIURETIC | Routin | 05/15/2014 | | Results for this | | PEPTIDE | e | 1:22 PM | | procedure are in the | | | | PST | | results section. | + +--------+ + + + | COMPREHENSIVE | Routin | 05/15/2014 | | Results for this | | METABOLIC PANEL | e | 1:22 PM | | procedure are in the | | | | PST | | results section. | + +--------+ + + + documented in this encounter Results External Lab: CBC (05/15/2014 1:22 PM PST) + + + + + + | Component | Value | Ref Range | Performed | Pathologist | | | | | At | Signature | + + + + + + | WBC | 8.6 | 4.5 - 11.0 10 | EXTERNAL | | | | | | LAB | | + + + + + + | RED CELL | 4.65 | 3.8 - 5.1 10 | EXTERNAL | | | COUNT | | | LAB | | + + + + + + | Hgb | 13.5 | 12.0 - 16.0 | EXTERNAL | | | | | g/dL | LAB | | + + + + + + | Hematocrit, | 42.5 | 35 - 45 % | EXTERNAL | | | POC | | | LAB | | + + + + + + | MCV | 91.4 | 81 - 99 fL | EXTERNAL [...] + + + + | Platelet | 193 | 140 - 440 K/ L | EXTERNAL | | | Count | | | LAB | | | Plasma | | | | | + + + + + + | RDW-CV | 16.7 (A) | 10.5 - 15.0 % | [...] + + + | % Segmented | 57.1 | 39 - 80 % | EXTERNAL | | | | | | LAB | | | Neutrophils | | | | | + + + + + + | % | 28.2 | 24 - 44 % | EXTERNAL | | | Lymphocytes | | | LAB | | + + + + + + | % Monocytes | 8.1 | 0 - 12 % | EXTERNAL | | | | | | LAB | | + + + + + + | % | 5.5 | 0 - 6 % | EXTERNAL | | | Eosinophils | | | LAB | | + + + + + + | % Basophils | 1.1 | 0 - 2 % | EXTERNAL [...] +---------+ + + B Type Natriuretic Peptide (05/15/2014 1:22 PM PST) + + + + + + | Component | Value | Ref Range | Performed | Pathologist | | | | | At | Signature | + + + + + + | BNP | 2,370 (A) | 0 - 100 pg/mL | [...] + +---------+ + + Comprehensive Metabolic Panel (05/15/2014 1:22 PM PST) + +---------+ + + + | Component | Value | Ref Range | Performed | Pathologist | | | | | At | Signature | + +---------+ + + + | Glucose, | 119 (A) | 70 - 100 mg/dL | EXTERNAL | | | Fasting | | | LAB | | + +---------+ + + + | BUN | 25 (A) | 6 - 23 mg/dL | EXTERNAL | | | | | | LAB | | + +---------+ + + + | Creatinine | 0.96 | 0.70 - 1.11 | EXTERNAL | | | | | mg/dL | LAB | | + +---------+ + + + | BUN/Creatin | 26.0 | 6.0 - 28.6 | EXTERNAL | | | ine Ratio | | | LAB | | + +---------+ + + + | Calcium | 9.0 | 8.4 - 10.2 | EXTERNAL | | | | | mg/dL | LAB | | + +---------+ + + + | Protein, | 6.5 | 6.0 - 8.0 g/dL | EXTERNAL | | | Total | | | LAB | | + +---------+ + + + | Albumin | 4.0 | 3.5 - 5.0 | EXTERNAL | | | | | | LAB | | + +---------+ + + + | Globulin | 2.5 | 1.8 - 3.5 | EXTERNAL | | | | | | LAB | | + +---------+ + + + | A/G Ratio | 1.6 | 1.1 - 2.4 | EXTERNAL | | | | | | LAB | | + +---------+ + + + | Bilirubin | 0.7 | 0.0 - 1.2 mg/dL | EXTERNAL | | | Total | | | LAB | | + +---------+ + + + | ALP, | 79 | 30 - 128 | EXTERNAL | | | External | | | LAB | | + +---------+ + + + | ALT | 11 | 7 - 52 U/L | EXTERNAL | | | | | | LAB | | + +---------+ + + + | AST | 20 | 13 - 39 U/L | EXTERNAL | | | | | | LAB | | + +---------+ + + + | Na | 138 | 132 - 143 | EXTERNAL | | | | | mmol/L | LAB | | + +---------+ + + + | K | 3.8 | 3.6 - 5.1 | EXTERNAL | | | | | mmol/L | LAB | | + +---------+ + + + | Cl | 103 | 95 - 112 mmol/L | EXTERNAL | | | | | | LAB | | + +---------+ + + + | CO2 | 22 | 19 - 31 mmol/L | EXTERNAL | | | | | | LAB | | + +---------+ + + + | Anion Gap | 16.8 | 7 - 21 mmol/L | EXTERNAL | | | | | | LAB | | + +---------+ + + + | Estimated | 56 (A) | 60 mg/dL | EXTERNAL | [...]
--- OUTSIDE RECORDS SUMMARY | ~2019-03-06 | XMS | Encounter Summary ---
Demographics + + + | Address | [address] | | | [place] [address] | + + + | Home Phone | | + + + | Preferred Language | Unknown | + + + | Marital Status | | + + + | Scientology Affiliation | 1041 | + + + | Race | Unknown | + + + | Ethnic Group | Unknown | + + + Author + + + | Author | [facility] | | | and [place] | + + + | Organization | [facility] | | | [...] [place], [place] | | | | | [address] | | + + + + + | Rivka Palma | ECON | Unknown | | + + + + + | Geno Kendall | ECON | Unknown | | + + + + + Care Team Providers + +------+ + | Care Home Visit Field Care Manager Name | Role | Phone | + +------+ + | Lorenzo Valdes MD | PCP | | + +------+ + Encounter Details +--------+ + + + + | Date | Type | Department | Care Team | Description | +--------+ + + + + | 01/02/ | Orders Only | [facility] | Godfrey Monteiro MD | | | 2013 | | NEPHROLOGY [place] | [address] [facility] | | | | | [address] [facility] | [place] | | | | | [place] | [address] | | | | | [address] | | | | | | [phone] | | | +--------+ + + + [...] [place] | | | | | | [address] | | | | | | | [...] [place] | | | | | | [address] | | | | | | | | +--------+ + + + + documented as of this encounter Procedures + +--------+ + + + | Procedure Name | Priori | Date/Time | Associated Diagnosis | Comments | | | ty | | | | + +--------+ + + + | MAGNESIUM | Routin | 01/02/2014 | | Results for this | | | e | 12:00 AM | | procedure are in the | | | | PDT | | results section. | + +--------+ + + + | RENAL FUNCTION PANEL | Routin | 01/02/2014 | | Results for this | | | e | 12:00 AM | | procedure are in the | | | | PDT | | results section. | + +--------+ + + + documented in this encounter Results Magnesium (01/02/2014 12:00 AM PDT) + +-------+ + + [...] + +---------+ + + Renal Function Panel (01/02/2014 12:00 AM PDT) + + + + + + | Component | Value | Ref Range | Performed | Pathologist | | | | | At | Signature | + + + + + + | Glucose, | 124 (A) | 70 - 100 mg/dL | EXTERNAL | | | Fasting | | | LAB | | + + + + + + | BUN | 33 (A) | 6 - 23 mg/dL | EXTERNAL | | | | | | LAB | | + + + + + + | Creatinine | 1.49 (A) | 0.70 - 1.11 | EXTERNAL | | | | | mg/dL | LAB | | + + + + + + | PHOSPHORUS | 3.2 | 2.5 - 5 mg/dL | EXTERNAL | | | | | | LAB | | + + + + + + | Albumin | 3.7 | 3.5 - 5 | EXTERNAL | | | | | | LAB | | + + + + + + | Na | 133 | 132 - 143 | EXTERNAL | | | | | mmol/L | LAB | | + + + + + + | K | 4.0 | 3.6 - 5.1 | EXTERNAL | [...] + + + | Anion Gap | 12 | 7 - 21 mmol/L | EXTERNAL | | | | | | LAB | | + + + + + + | eGFR if not | | | EXTERNAL | | | | | | LAB | | | UKRAINIAN | | | | | + + + + + + | Phosphorus, | | | EXTERNAL | | | Inorganic | | | LAB | | + + + + + + | BUN/Creatin | 22.1 | 6 - 28.3 | EXTERNAL | | | ine Ratio | | | LAB | | + + + + + + | Calcium | 9 | 8.4 - 10.2 | EXTERNAL | [...]
--- OUTSIDE RECORDS SUMMARY | ~2019-03-06 | XMS | Encounter Summary ---
Demographics + + + | Address | [address] | | | [place] [address] | + + + | Home Phone | | + + + | Preferred Language | Unknown | + + + | Marital Status | | + + + | Hinduism Affiliation | [id number] | + + + | Race | Unknown | + + + | Ethnic Group | Unknown | + + + Author + + + | Author | [facility] | | | and [place] | + + + | Organization | [facility] | | | [...] [place], [place] | | | | | [address] | | + + + + + | Rivka Palma | ECON | Unknown | | + + + + + | Geno Kendall | ECON | Unknown | | + + + + + Care Team Providers + +------+ + | Care Silver Solderer Name | Role | Phone | + +------+ + | Lorenzo Valdes MD | PCP | | + +------+ + Reason for Visit + + + | Reason | Comments | + + + | Shortness of Breath | | + + + Encounter Details +--------+ + + + + | Date | Type | Department | Care Team | Description | +--------+ + + + + | 08/31/ | Telephone | [facility] | Brandon Terry | Shortness of Breath | | 2013 | | PULMONARY [address] | [place] [address] | | | | | [place], | [place], [place] | | | | | [place] [address] | [id number] | | | | | [phone] | | | +--------+ + + + [...] [place] | | | | | | [address] | | | | | | | [...] [place] | | | | | | [address] | | | | | | | | +--------+ + + + + + + +--------+ + + | Name | Type | Priori | Associated Diagnoses | Order Schedule | | | | ty | | | + + +--------+ + + | Culture, | Microbiolog | Routin | Bronchiectasis | Expected: 08/31/2013 | | Respiratory, Lower, | y | e | without acute | (Approximate), | | Smear | | | exacerbation (HCC) | Expires: 08/31/2014 | | | | | SOB (shortness of | | | | | | breath) | | + + +--------+ + + documented as of this encounter Visit Diagnoses + + | Diagnosis | + + | Bronchiectasis without acute exacerbation (HCC) - Primary Bronchiectasis without | | acute exacerbation | + + | SOB (shortness of breath) Shortness of breath | + + documented in this encounter"
--- OUTSIDE RECORDS SUMMARY | ~2019-03-06 | XMS | Encounter Summary ---
Demographics + + + | Address | [address] | | | [place] [address] | + + + | Home Phone [...] [place], [place] | | | | | [address] | | + + + + + | Rivka Palma | ECON | Unknown | | + + + + + | Geno Kendall | ECON | Unknown | | + + + + + Care Team Providers + +------+ + | Care Packer Sausage And Wiener Name | Role | Phone | + +------+ + | Lorenzo Valdes MD | PCP | | + +------+ + Encounter Details +--------+ + + + + | Date | Type | Department | Care Team | Description | +--------+ + + + + | 01/09/ | Orders Only | [facility] | Barbara Doll ANP | | | 2015 | | [facility] [facility] | [address] | | | | | ECHO [address] | [place], [place] | | | | | [place], [place] | [address] | | | | | [address] | | | | | | [phone] | | | +--------+ + + + [...] [place] | | | | | | [address] | | | | | | | [...] [place] | | | | | | [address] | | | | | | | | +--------+ + + + + documented as of this encounter Procedures + +--------+ + + + | Procedure Name | Priori | Date/Time | Associated Diagnosis | Comments | | | ty | | | | + +--------+ + + + | ECHO COMPLETE | Routin | 01/09/2015 | | Results for this | | | e | 12:30 PM | | procedure are in the | | | | PDT | | results section. | + +--------+ + + + documented in this encounter Results ECHO Complete (01/09/2015 12:30 PM PDT) + + | Specimen | + + | | + + + + + | Impressions | Performed At | + + + | 1. Paced rhythm. 2. A 2-dimensional transthoracic echocardiogram | | | with m-mode, spectral and color flow Doppler was perfomed. 3. This | | | was a technically adequate study. 4. Overall left ventricular | | | systolic function is severely impaired with, an EF < 20%. 5. The left | | | ventricle is mildly dilated. 6. Left ventricular wall thickness is | | | normal. 7. The right ventricle is normal in size and function. 8. | | | The left atrium is normal in size. 9. The right atrium is normal in | | | size. 10. Pacemaker wire seen in the right atrial cavity. 11. There | | | is mutl-ud-igoigrlf aortic regurgitation. 12. Mild mitral | | | regurgitation is present. 13. Mild tricuspid regurgitation present. | | | 14. There is no pericardial effusion. | | + + + + + + | Narrative | Performed At | + + + | Patient Name: TAMIKO CROCKETT Date of : 1930 | | | Performing Physician: Nicolas Paige MD | | | | | | INDICATIONS ischemic cardiomyopathy CONCLUSIONS | | | 1. Paced rhythm. 2. A 2-dimensional transthoracic | | | echocardiogram with m-mode, spectral and color flow Doppler was | | | perfomed. 3. This was a technically adequate study. 4. Overall left | | | ventricular systolic function is severely impaired with, an EF < 20%. | | | 5. The left ventricle is mildly dilated. 6. Left ventricular wall | | | thickness is normal. 7. The right ventricle is normal in size and | | | function. 8. The left atrium is normal in size. 9. The right atrium | | | is normal in size. 10. Pacemaker wire seen in the right atrial | | | cavity. 11. There is pafa-wc-lasquccr aortic regurgitation. 12. Mild | | | mitral regurgitation is present. 13. Mild tricuspid regurgitation | | | present. 14. There is no pericardial effusion. FINDINGS -------- | | | ECG rhythm: Paced rhythm. Study: A 2-dimensional transthoracic | | | echocardiogram with m-mode, spectral and color flow Doppler was | | | perfomed. Study: This was a technically adequate study. Left | | | Ventricle: Overall left ventricular systolic function is severely | | | impaired with, an EF < 20%. Left Ventricle: The left ventricle is | | | mildly dilated. Left Ventricle: Left ventricular wall thickness is | | | normal. Left Ventricle: Poor tissue doppler signal prevents accurate | | | assessment of diastolic function. Right Ventricle: The right | | | ventricle is normal in size and function. Right Ventricle: Pacer/ICD | | | wire seen. Left Atrium: The left atrium is normal in size. Right | | | Atrium: The right atrium is normal in size. Right Atrium: Pacemaker | | | wire seen in the right atrial cavity. Aortic Valve: The aortic valve | | | was not well visualized. Aortic Valve: There is nhho-yi-kbftwdai | | | aortic regurgitation. Aortic Valve: The aortic valve area by | | | continuity equation is 1.7cm Aortic Valve: Peak/mean gradient | | | across the valve is 7.73mmHg/4.49mmHg. Mitral Valve: The mitral valve | | | is normal. Mitral Valve: Mild mitral regurgitation is present. | | | Tricuspid Valve: The tricuspid valve appears structurally normal. | | | Tricuspid Valve: Mild tricuspid regurgitation present. Tricuspid | | | Valve: The right ventricular systolic pressure (pulmonary artery | | | systolic pressure), as measured by Doppler, is 25.60mmHg. Pulmonic | | | Valve: The pulmonic valve was not well visualized. Pulmonic Valve: | | | Mild pulmonic regurgitation. Pericardium: There is no pericardial | | | effusion. IVC/Hepatic Veins: The inferior vena cava is normal in size | | | and collapses > 50 % with sniff, indicating normal central venous | | | pressures. Aorta: The aortic root, ascending aorta and aortic arch | | | are normal. Mass: No mass visualized Thrombus: No clot visualized | | | Septum: No ASD observed. Septum: No VSD observed. MEASUREMENTS | | | Ao asc: 2.85 cm EDV(Teich): 173.52 ml IVSd: | | | 0.96 cm LVIDd: 5.90 cm LVPWd: 0.89 cm LVOT Area: 3.10 cm2 | | | LVOT Diam: 1.98 cm %FS: 15.88 % EF(Teich): 32.90 % | | | ESV(Teich): 116.42 ml LVIDs: 4.96 cm SV(Teich): 57.10 ml | | | RVIDd: 2.36 cm LVEF MOD A2C: 10.16 % SV MOD A2C: 11.76 ml | | | LVEF MOD A4C: 10.29 % SV MOD A4C: 12.10 ml EF Biplane: 9.80 | | | % LVEDV MOD BP: 116.56 ml LVESV MOD BP: 105.13 ml LVEDV MOD | | | A2C: 115.70 ml LVLd A2C: 7.84 cm LVEDV MOD A4C: 117.55 ml | | | LVLd A4C: 8.12 cm LVESV MOD A2C: 103.94 ml LVLs A2C: 8.22 | | | cm LVESV MOD A4C: 105.45 ml LVLs A4C: 8.06 cm LAESV(A-L): | | | 14.00 ml LAESV Index (A-L): 8.53 ml/m2 LAAs A2C: 7.13 cm2 | | | LAESV A-L A2C: 10.94 ml LALs A2C: 3.94 cm LAAs A4C: 9.12 | | | cm2 LAESV A-L A4C: 17.04 ml LALs A4C: 4.14 cm RAAs: 10.80 | | | cm2 RAESV A-L: 24.15 ml RAESV MOD: 23.34 ml RALs: 4.10 cm | | | Ao Diam: 2.88 cm AR Dec Pepin: 2.13 m/s2 AR Dec Time: | | | 1676.54 ms AR maxP.06 mmHg AR PHT: 486.19 ms AR Vmax: | | | 3.57 m/s AV maxP.73 mmHg AV meanP.49 mmHg AV Vmax: | | | 1.38 m/s AV Vmean: 1.01 m/s AV VTI: 21.70 cm BEATRIZ Vmax: | | | 1.79 cm2 BEATRIZ (VTI): 1.70 cm2 AVAI (Vmax): 0.00 cm2/m2 AVAI | | | (VTI): 0.00 cm2/m2 LVOT maxP.62 mmHg LVOT meanP.28 | | | mmHg LVSI Dopp: 22.58 ml/m2 LVSV Dopp: 37.04 ml LVOT Vmax: | | | 0.80 m/s LVOT Vmean: 0.52 m/s LVOT VTI: 11.94 cm Lateral e': | | | 0.06 m/s PAEDP: 10.20 mmHg PRend P.20 mmHg PRend | | | Vmax: 1.14 m/s PV maxP.62 mmHg PV Vmax: 0.81 m/s RAP: | | | 5 mmHg RVSP: 25.60 mmHg TR maxP.60 mmHg TR Vmax: | | | 2.26 m/s Skein Winder: TRINITY Authenticated by: Nicolas Paige MD | | | Report Date/Time: 01-21-2015 15:43:42 | | + + + + + | Procedure Note | + + | César Hawkins Conversion - 12/03/2018 12:11 AM PDT Patient Name: Romie CROCKETT of | | : 1930 Performing Physician: Nicolas Paige | | INDICATIONS i | | schemic cardiomyopathy CONCLUSIONS 1. Paced rhythm.2. A 2-dimensional | | transthoracic echocardiogram with m-mode, spectral and color flow Doppler was | | perfomed.3. This was a technically adequate study.4. Overall left ventricular systolic | | function is severely impaired with, an EF < 20%.5. The left ventricle is mildly | | dilated.6. Left ventricular wall thickness is normal.7. The right ventricle is normal in | | size and function.8. The left atrium is normal in size.9. The right atrium is normal in | | size.10. Pacemaker wire seen in the right atrial cavity.11. There is pyie-ca-nxkmspsp | | aortic regurgitation.12. Mild mitral regurgitation is present.13. Mild tricuspid | | regurgitation present.14. There is no pericardial effusion. FINDINGS--------ECG rhythm: | | Paced rhythm.Study: A 2-dimensional transthoracic echocardiogram with m-mode, spectral | | and color flow Doppler was perfomed.Study: This was a technically adequate study.Left | | Ventricle: Overall left ventricular systolic function is severely impaired with, an EF < | | 20%.Left Ventricle: The left ventricle is mildly dilated.Left Ventricle: Left | | ventricular wall thickness is normal.Left Ventricle: Poor tissue doppler signal prevents | | accurate assessment of diastolic function.Right Ventricle: The right ventricle is | | normal in size and function.Right Ventricle: Pacer/ICD wire seen.Left Atrium: The left | | atrium is normal in size.Right Atrium: The right atrium is normal in size.Right Atrium: | | Pacemaker wire seen in the right atrial cavity.Aortic Valve: The aortic valve was not | | well visualized.Aortic Valve: There is qcjv-oz-bbqkthtq aortic regurgitation.Aortic | | Valve: The aortic valve area by continuity equation is 1.7cm Aortic Valve: | | Peak/mean gradient across the valve is 7.73mmHg/4.49mmHg.Mitral Valve: The mitral valve | | is normal.Mitral Valve: Mild mitral regurgitation is present.Tricuspid Valve: The | | tricuspid valve appears structurally normal.Tricuspid Valve: Mild tricuspid | | regurgitation present.Tricuspid Valve: The right ventricular systolic pressure | | (pulmonary artery systolic pressure), as measured by Doppler, is 25.60mmHg.Pulmonic | | Valve: The pulmonic valve was not well visualized.Pulmonic Valve: Mild pulmonic | | regurgitation.Pericardium: There is no pericardial effusion.IVC/Hepatic Veins: The | | inferior vena cava is normal in size and collapses > 50 % with sniff, indicating normal | | central venous pressures.Aorta: The aortic root, ascending aorta and aortic arch are | | normal.Mass: No mass visualizedThrombus: No clot visualizedSeptum: No ASD | | observed.Septum: No VSD observed. MEASUREMENTS Ao asc: 2.85 cmEDV(Teich): | | 173.52 mlIVSd: 0.96 cmLVIDd: 5.90 cmLVPWd: 0.89 cmLVOT Area: 3.10 [id number] | | Diam: 1.98 cm%FS: 15.88 %EF(Teich): 32.90 %ESV(Teich): 116.42 mlLVIDs: 4.96 | | cmSV(Teich): 57.10 mlRVIDd: 2.36 cmLVEF MOD A2C: 10.16 %SV MOD A2C: 11.76 mlLVEF | | MOD A4C: 10.29 %SV MOD A4C: 12.10 mlEF Biplane: 9.80 %LVEDV MOD BP: 116.56 | | mlLVESV MOD BP: 105.13 mlLVEDV MOD A2C: 115.70 mlLVLd A2C: 7.84 cmLVEDV MOD A4C: | | 117.55 mlLVLd A4C: 8.12 cmLVESV MOD A2C: 103.94 mlLVLs A2C: 8.22 cmLVESV MOD A4C: | | 105.45 mlLVLs A4C: 8.06 cmLAESV(A-L): 14.00 mlLAESV Index (A-L): 8.53 ml/m2LAAs | | A2C: 7.13 [id number] A-L A2C: 10.94 mlLALs A2C: 3.94 cmLAAs A4C: 9.12 [id number] | | A-L A4C: 17.04 mlLALs A4C: 4.14 cmRAAs: 10.80 [id number] A-L: 24.15 mlRAESV MOD: | | 23.34 mlRALs: 4.10 cmAo Diam: 2.88 cmAR Dec Pepin: 2.13 m/s2AR Dec Time: | | 1676.54 msAR maxP.06 mmHgAR PHT: 486.19 msAR Vmax: 3.57 m/Evelin maxP.73 | | mmHgAV meanP.49 mmHgAV Vmax: 1.38 m/Evelin Vmean: 1.01 m/Evelin VTI: 21.70 cmAVA | | Vmax: 1.79 cm2AVA (VTI): 1.70 [id number] (Vmax): 0.00 cm2/m2AVAI (VTI): 0.00 | | cm2/m2LVOT maxP.62 mmHgLVOT meanP.28 mmHgLVSI Dopp: 22.58 ml/m2LVSV Dopp: | | 37.04 mlLVOT Vmax: 0.80 m/sLVOT Vmean: 0.52 m/sLVOT VTI: 11.94 cmLateral e': | | 0.06 m/sPAEDP: 10.20 mmHgPRend P.20 mmHgPRend Vmax: 1.14 m/sPV maxP.62 | | mmHgPV Vmax: 0.81 m/sRAP: 5 mmHgRVSP: 25.60 mmHgTR maxP.60 mmHgTR Vmax: | | 2.26 m/s Skein Winder: TRINITYAuthenticated by: Nicolas Paige MDReport Date/Time: 01-21-2015 | | 15:43:42 IMPRESSION: 1. Paced rhythm.2. A 2-dimensional transthoracic echocardiogram | | with m-mode, spectral and color flow Doppler was perfomed.3. This was a technically | | adequate study.4. Overall left ventricular systolic function is severely impaired with, | | an EF < 20%.5. The left ventricle is mildly dilated.6. Left ventricular wall thickness | | is normal.7. The right ventricle is normal in size and function.8. The left atrium is | | normal in size.9. The right atrium is normal in size.10. Pacemaker wire seen in the | | right atrial cavity.11. There is doyz-up-twqgdpkq aortic regurgitation.12. Mild mitral | | regurgitation is present.13. Mild tricuspid regurgitation present.14. There is no | | pericardial effusion. | | | |MEASUREMENTS | | | |Ao asc: 2.85 cm | |EDV(Teich): 173.52 ml | |IVSd: 0.96 cm | |LVIDd: 5.90 cm | |LVPWd: 0.89 cm | |LVOT Area: 3.10 cm2 | |LVOT Diam: 1.98 cm | |%FS: 15.88 % | |EF(Teich): 32.90 % | |ESV(Teich): 116.42 ml | |LVIDs: 4.96 cm | |SV(Teich): 57.10 ml | |RVIDd: 2.36 cm | |LVEF MOD A2C: 10.16 % | |SV MOD A2C: 11.76 ml | |LVEF MOD A4C: 10.29 % | |SV MOD A4C: 12.10 ml | |EF Biplane: 9.80 % | |LVEDV MOD BP: 116.56 ml | |LVESV MOD BP: 105.13 ml | |LVEDV MOD A2C: 115.70 ml | |LVLd A2C: 7.84 cm | |LVEDV MOD A4C: 117.55 ml | |LVLd A4C: 8.12 cm | |LVESV MOD A2C: 103.94 ml | |LVLs A2C: 8.22 cm | |LVESV MOD A4C: 105.45 ml | |LVLs A4C: 8.06 cm | |LAESV(A-L): 14.00 ml | |LAESV Index (A-L): 8.53 ml/m2 | |LAAs A2C: 7.13 cm2 | |LAESV A-L A2C: 10.94 ml | |LALs A2C: 3.94 cm | |LAAs A4C: 9.12 cm2 | |LAESV A-L A4C: 17.04 ml | |LALs A4C: 4.14 cm | |RAAs: 10.80 cm2 | |RAESV A-L: 24.15 ml | |RAESV MOD: 23.34 ml | |RALs: 4.10 cm | |Ao Diam: 2.88 cm | |AR Dec Pepin: 2.13 m/s2 | |AR Dec Time: 1676.54 ms | |AR maxP.06 mmHg | |AR PHT: 486.19 ms | |AR Vmax: 3.57 m/s | |AV maxP.73 mmHg | |AV meanP.49 mmHg | |AV Vmax: 1.38 m/s | |AV Vmean: 1.01 m/s | |AV VTI: 21.70 cm | |BEATRIZ Vmax: 1.79 cm2 | |BEATRIZ (VTI): 1.70 cm2 | |AVAI (Vmax): 0.00 cm2/m2 | |AVAI (VTI): 0.00 cm2/m2 | |LVOT maxP.62 mmHg | |LVOT meanP.28 mmHg | |LVSI Dopp: 22.58 ml/m2 | |LVSV Dopp: 37.04 ml | |LVOT Vmax: 0.80 m/s | |LVOT Vmean: 0.52 m/s | |LVOT VTI: 11.94 cm | |Lateral e': 0.06 m/s | |PAEDP: 10.20 mmHg | |PRend P.20 mmHg | |PRend Vmax: 1.14 m/s | |PV maxP.62 mmHg | |PV Vmax: 0.81 m/s | |RAP: 5 mmHg | |RVSP: 25.60 mmHg | |TR maxP.60 mmHg | |TR Vmax: 2.26 m/s | | | |Skein Winder: RK | |Authenticated by: Nicolas Paige MD | |Report Date/Time: 01-21-2015 15:43:42 | | | |IMPRESSION: | |1. Paced rhythm. | |2. A 2-dimensional transthoracic echocardiogram with m-mode, spectral and color flow Dopple r was perfomed. | |3. This was a technically adequate study. | |4. Overall left ventricular systolic function is severely impaired with, an EF < 20%. | |5. The left ventricle is mildly dilated. | |6. Left ventricular wall thickness is normal. | |7. The right ventricle is normal in size and function. | |8. The left atrium is normal in size. | |9. The right atrium is normal in size. | |10. Pacemaker wire seen in the right atrial cavity. | |11. There is cmff-wu-ttixravb aortic regurgitation. | |12. Mild mitral regurgitation is present. | |13. Mild tricuspid regurgitation present. | |14. There is no pericardial effusion. | + + documented in this encounter Visit Diagnoses Not on filedocumented in this encounter"
--- OUTSIDE RECORDS SUMMARY | ~2019-03-06 | XMS | Encounter Summary ---
Demographics + + + | Address | [address] | | | [place] [address] | + + + | Home Phone | | + + + | Preferred Language | Unknown | + + + | Marital Status | | + + + | Taoist Affiliation | [id number] | + + + [...] [place], [place] | | | | | [address] | | + + + + + | Rivka Palma | ECON | Unknown | | + + + + + | Geno Kendall | ECON | Unknown | | + + + + + Care Team Providers + +------+ + | Care Child Neurologist Name | Role | Phone | + +------+ + | Lorenzo Valdes MD | PCP | | + +------+ + Encounter Details +--------+ + + + + | Date | Type | Department | Care Team | Description | +--------+ + + + + | 12/08/ | Hospital | [facility] | Ben Montanash | NSTEMI (non-ST | | 2014 - | Encounter | [facility] | MD [place] [address] | elevated myocardial | | | | CARE [address]LO[address] [place], [place] | infarction) ([facility]); | | 12/16/ | [address] | [id number] | DM (diabetes | | 2013 | | [place], [place] | | mellitus) ([facility]); HTN | | | | [id number] | | (hypertension); CAD | | | | [phone] | | (coronary artery | | | | | [...] documented as of this encounter Discharge Summaries John Bass PA - 12/18/2013 8:36 AM PDT Discharge Summaries by John Bass PA-C at 12/18/1336 Author: John Bass PA-C Service: (none) Author Type: Physician Top Precipitator Operator Helper - Cert ified Filed: 12/28/13 1214 Date of Service: 12/18/13835 Status: Signed Petroleum Engineer: John Bass PA-C (Physician Top Precipitator Operator Helper - Certified) Cosigner: Niraj mathews MD at 12/28/13 1303 [facility]: Cardiothoracic Surgery Discharge Summary Date of Admission: 12/08/2013 Date of Discharge: 12/16/2013 Discharge Provider: Julieth Bass PA-C Treatment Team: Consulting Physician: Niraj Celis MD Consulting Physician: Wing Oneil Goodman MD Admitting Provider: Jorge Alberto [place] MD Discharge Diagnoses: Principal Problem: Non-ST elevated myocardial infarction (non-STEMI) Active Problems: Essential hypertension, benign DM (diabetes mellitus) CHF (congestive heart failure) Ischemic cardiomyopathy CAD (coronary artery disease) Hypotension, unspecified Cardiomyopathy Hyperlipidemia Renal insufficiency Hyponatremia Acute blood loss anemia Volume overload Resolved Problems: * No resolved hospital problems. * Procedures: Procedure(s): CABG - CELSO STERNOTOMY INTERNAL MAMMARY ARTERIAL HARVEST VEIN - ENDOVASCULAR VEIN HARVEST BRIEF HISTORY OF PRESENTATION: Tamiko Crockett is a 83 y.o. female who is known to our service. The patient has a history of hypertension, diabetes mellitus, and chronic kidney disease. The patient had been admitt ed approximately 2 months ago with congestive heart failure. At that time she was diagnosed with severe coronary artery disease. The patient also had chronic kidney disease and at that time she elected for medical therapy. She again presented yesterday complaining of exertion al angina. Surgical revascularization was recommended. Risks and benefits of the procedure i ncluding but not limited to bleeding, infection, damage to heart, lungs, or kidneys, stroke, , progression of her renal disease were all discussed at length with the patient and h er family. Decision was made to proceed with surgery. HOSPITAL COURSE: The patient was taken to the operating room and underwent a Coronary artery bypass grafting x5; left internal mammary artery sequential to mid left anterior descending and distal left anterior descending; saphenous vein graft to ramus intermedius; saphenous vein graft to obt use marginal; saphenous vein graft to right posterior descending artery with Endoscopic vein harvest on 12/09/2013 . Operation was uneventful (please refer to operative note for details of the same). The patient tolerated the procedure well and was transferred to the ICU intub ated and in stable condition. The patient was extubated per ICU protocol. Within hours of e xtubation a Code blue was called. The patient had received dilaudid 0.5 mg and 3-4 mn later she went into respiratory arrest and lost pulse for few seconds. 4 gentle chest compressions were administered and she raised her arms up with return of blood pressure and pulse. Epine phrine drip was also increased from 3 to 20 mcg/mn at that time. Narcan was administered and patient woke up back to baseline and protecting her airway c/o chest discomfort. Patient re covery progressed without further incident and on 12/12/2013, the patient was transferred to the cardiac unit, hemodynamically stable. On the same day she briefly converted to atrial fi brillation. Amiodarone bolus of 150 mg was given and patient converted back to NSR. Fluid ba adalberto and edema were closely monitored by nephrology due to her history of chronic kidney di sease. Diuresis was started once renal function stabilized. Chest tubes were removed without complication on 12/13/2013. Temporary pacing wires were removed 12/15/2013. The patient receive d electrolyte replacement per protocol and continued to make good recovery, ambulating, tole rating cardiac diet and passing bowel movements. The patient was fit for discharge to home o n 12/16/2013. Past Medical History Diagnosis Date Hypertension Asthma [...] - CELSO; Surgeon: Niraj Celis MD; Location: [facility]; Service: Car dia; Laterality: N/A; Sternotomy 12/09/2013 Procedure: STERNOTOMY; Surgeon: Niraj Celis MD; Location: [facility]; Service: Car diac;; Internal mammary arterial harvest Left 12/09/2013 Procedure: INTERNAL MAMMARY ARTERIAL HARVEST; Surgeon: Niraj Celis MD; Location: [facility]; Service: Cardiac; Laterality: Left; Endovascular vein harvest Right 12/09/2013 Procedure: VEIN - ENDOVASCULAR VEIN HARVEST; Surgeon: Niraj Celis MD; Location: [facility]; Service: Cardiac; Laterality: Right; Allergies Allergen Reactions Lasix [Furosemide] Other (See Comments) Joint pain Latex Rash No prescriptions prior to admission DISCHARGE EXAM Vital Signs: BP 124/60 | Pulse 88 | Temp(Src) 98 F (36.7 C) (Oral) | Resp 22 | Ht 1.675 m (5' 5.95") | Wt 72.1 kg (158 lb 15.2 oz) | BMI 25.7 kg/m2 | SpO2 92% | ? No Physical Exam: GENERAL: A&Ox 3, in no acute distress. NEURO: No facial asymmetry, speech normal and non pressured. Normal range of motion in all extremities HEENT: PERRLA, EOMI; Sclerae clear, nonicteric; Oral Mucosa moist and pink with no ulcerati ons/lesions. NECK: No JVD noted, carotid upstrokes brisk without bruits. No thyromegaly. HEART: distant heart sounds. RRR with normal S1 and S2 heart sounds. No murmur, rub, heave, or gallop noted. LUNGS: diminished. Lungs are coarse to auscultation without wheezes, rhonchi, rales. ABDOMEN: Quiet. Soft, nondistended, nontender to palpation with no notable masses. EXTREMITIES: trace edema; warm Incision: clean, dry, and intact. No erythema, discharge, or warmth noted around the incisi on site. DATA Platelets: Lab Results Component Value Date PLT 130* 12/13/2013 Hemoglobin/Hematocrit: Lab Results Component Value Date HGB 9.1* 12/13/2013 HGB 7.8* 12/09/2013 HCT 26.0* 12/13/2013 HCT 23* 12/09/2013 Potassium: Lab Results Component Value Date K 3.9 12/16/2013 BUN/Creatinine: Lab Results Component Value Date BUN 16 12/16/2013 CREATININE 1.00 12/16/2013 Magnesium: Lab Results Component Value Date MG 1.7 12/16/2013 PT/INR: Lab Results Component Value Date INR 1.4 12/09/2013 PTT: Lab Results Component Value Date APTT 27 12/09/2013 [APTT HgBA1c: Lab Results Component Value Date HGBA1C 6.3* 12/10/2013 LABGLYC 134 12/10/2013 PLAN 1. Patient is discharged to home. 2. Smoking cessation was discussed with patient. Pt says she doesn't smoke 3. S/P CABG a. Aspirin 325 mg daily b. Metoprolol 25 mg twice daily c. Rosuvastatin 20 mg nightly 4. Chronic Kidney disease a. Follow-up with Nephrology as scheduled. Please get laboratory studies prior to visit b. Torsemide 10 mg every other day c. Potassium 10 mEq every other day d. Hold Losartan and Spironolactone for now secondary to post-operative renal dysfunction. Restart after cleared with Nephrology. 5. Education: CABG: The patient is being discharged with instructions on cardiac diet, sternal precautio ns x 12 weeks and surgical incision are according to the Society of Thoracic Surgeon guideli jermaine. The patient is given instructions to start cardiac rehabilitation in accordance with ca rdiologist recommendations. Pt advised not to drive for 6 weeks post discharge. Disposition: Home Condition: Stable Code Status: Prior No discharge procedures on file. Follow up: MD Godfrey Bowen MD [address] [facility] [id number] Call Keep appointment as scheduled. Get Blood work done as scheduled prior to visit Niraj Celis MD [address] [facility] [address] Schedule an appointment as soon as possible for a visit Thomas Bynum DO [address] [facility] [address] Schedule an appointment as soon as possible for a visit Medication List START taking these medications amiodarone 200 MG tablet QTY: 10 tablet Refills: 0 Commonly known as: PACERONE Take 1 tablet by mouth daily. metoprolol 25 MG tablet QTY: 60 tablet Refills: 11 Commonly known as: LOPRESSOR Take 1 tablet by mouth 2 (two) times daily. potassium chloride 10 MEQ tablet QTY: 30 tablet Refills: 0 Commonly known as: K-DUR Take 1 tablet by mouth every other day. CHANGE how you take these medications aspirin EC 325 MG EC tablet QTY: 30 tablet Refills: 11 Take 1 tablet by mouth daily with breakfast. What changed: - medication strength - how much to take torsemide 10 MG tablet QTY: 30 tablet Refills: 1 Commonly known as: DEMADEX Take 1 tablet by mouth every other day. What changed: when to take this CONTINUE taking these medications albuterol 108 (90 BASE) MCG/ACT inhaler QTY: 18 g Refills: 3 Commonly known as: PROVENTIL HFA;VENTOLIN HFA Inhale 2 puffs into the lungs every 4 (four) hours as needed for Wheezing. budesonide 180 MCG/ACT inhaler Refills: 0 Commonly [...] known as: CRESTOR STOP taking these medications carvedilol 6.25 MG tablet Commonly known as: COREG digoxin 0.125 MG tablet Commonly known as: LANOXIN losartan 25 MG tablet Commonly known as: COZAAR spironolactone 25 MG tablet Commonly known as: ALDACTONE Where to Get Your Medications You need to brass pickler these prescriptions. We sent them to a specific pharmacy, so go there to get them. [facility] - [place] - [address] - amiodarone 200 MG tablet - aspirin EC 325 MG EC tablet - metoprolol 25 MG tablet - potassium chloride 10 MEQ tablet - torsemide 10 MG tablet [address] [facility] [place] [address] Discharge took 60 minutes, to include final examination, discussion of admission, and prepa ration of prescriptions, instructions for on-going care, follow-up and documentation of disc harge summary. Julieth Bass PA-C 12/18/2013 docusaroj jessica in this encounter Medications at Time of [...] | | | | | | | ([facility]), Bronchitis, | | | | | | | obstructive, chronic | | | | | | | ([facility]) | | | | | | [...] Progress Notes Conversion Transaction, Provider Unknown - 12/16/2013 10:30 AM PDTFormatting of this note m ight be different from the original. Nurse Progress Note by Paula Vernon RN at 12/16/13 1030 Author: Paula Vernon RN Service: (none) Author Type: Registered Nurse Filed: 12/16/13 1203 Date of Service: 12/16/13 1030 Status: Signed Petroleum Engineer: Paual Vernon RN (Registered Nurse) Pt and family verbalized understanding of all discharge instructions, prescriptions, and fo llow up appointments. All cabg education given and video watched. IV cath d/c'd with tip in tact. D/C to home via w/c - POV with and daugter. onver yajaira Transaction, Provider Unknown - 12/16/2013 9:21 AM PDT Case Management by Ludin Potter RN at 12/16/13920 Author: Ludin Potter RN Service: (none) Author Type: Fuel Management Handler Filed: 12/16/13921 Date of Service: 12/16/13920 Status: Addendum Petroleum Engineer: Ludin Potter RN (Fuel Management Handler) Related Notes: Original Note by Ludin Potter RN (Fuel Management Handler) filed at 12/16/13 092 2 Medicare Important message given to pt and signed copy placed on chart. John Heller PA - 12/16/2013 8:23 AM PDTFormatting of this note might be different from yoon sanchez original. Progress Notes by John Bass PA-C at 12/16/13822 Author: John Bass PA-C Service: (none) Author Type: Physician Top Precipitator Operator Helper - Cert ified Filed: 12/16/13824 Date of Service: 12/16/13822 Status: Attested Petroleum Engineer: John Bass PA-C (Physician Top Precipitator Operator Helper - Certified) Cosigner: Niraj mathews MD at 12/16/13852 Attestation signed by Niraj Celis MD at 12/16/13852 Patient was seen, examined, labs, x-rays and treatment plan were reviewed. [facility]: Cardiothoracic Surgery Progress Note ROOM: [address] [place] [address] Hospital Day: LOS: 8 days Post-Op Day: 7 Day Post-Op Surgery/Procedure: Procedure(s) (LRB): CABG - CELSO (N/A) STERNOTOMY INTERNAL MAMMARY ARTERIAL HARVEST (Left) VEIN - ENDOVASCULAR VEIN HARVEST (Right) SUBJECTIVE Events Overnight: Patient HD stable overnight,HR controlled. No Afib, NSR 80 bpm. No dizziness, lightheadedness, or palpitations. Some continued SOB with ambulation, coughing Ambulating, passing BM. Patient Summary Overnight: - Chest tube OUT, wires OUT Scheduled Medications amiodarone 200 mg Oral BID aspirin 325 mg Oral Daily with breakfast budesonide 2 puff Inhalation BID cetirizine 10 mg Oral Daily cholecalciferol 1,000 Units Oral Daily docusate sodium 100 mg Oral BID guaiFENesin 600 mg Oral BID insulin aspart 0-10 Units Subcutaneous TID AC insulin aspart 0-5 Units Subcutaneous Nightly insulin detemir 10 Units Subcutaneous Nightly levothyroxine 75 mcg Oral QAM AC metoprolol 25 mg Oral BID omeprazole 40 mg Oral QAM AC rosuvastatin 20 mg Oral Nightly torsemide 10 mg Oral Every Other Day Continuous Infusions amiodarone infusion 0.5 mg/min (12/15/13 0400) OBJECTIVE Vital Signs: BP 124/60 | Pulse 88 | Temp(Src) 98 F (36.7 C) (Oral) | Resp 22 | Ht 1.675 m (5' 5.95") | Wt 72.1 kg (158 lb 15.2 oz) | BMI 25.7 kg/m2 | SpO2 92% | ? No Physical Exam: Physical Exam: GENERAL: A&Ox 3, in no acute distress. NEURO: No facial asymmetry, speech normal and non pressured. Normal range of motion in all extremities HEENT: PERRLA, EOMI; Sclerae clear, nonicteric; Oral Mucosa moist and pink with no ulcerati ons/lesions. NECK: No JVD noted, carotid upstrokes brisk without bruits. No thyromegaly. HEART: distant heart sounds. RRR with normal S1 and S2 heart sounds. No murmur, rub, heave, or gallop noted. LUNGS: diminished. Lungs are coarse to auscultation without wheezes, rhonchi, rales. ABDOMEN: Quiet. Soft, nondistended, nontender to palpation with no notable masses. EXTREMITIES: trace edema; warm Incision: clean, dry, and intact. No erythema, discharge, or warmth noted around the incisi on site. Data Recent Labs Lab 12/13/13 0330 12/12/13 0355 12/11/13 0315 WBC 9.9 12.5* 11.9* RBC 2.80* 2.65* 2.60* HGB 9.1* 8.2* 8.1* HCT 26.0* 25.3* 25.1* MCV 92.8 95.6 96.3 MCH 32.5 30.8 31.0 MCHC 35.0 32.2 32.2 RDW 44.6 45.5 45.9 PLT 130* 88* 80* MPV 8.0 8.9 8.9 DIFFTYPE -- AUTOMATED AUTOMATED Recent Labs Lab 12/16/13 0351 12/15/13 0340 NA 135 134* K 3.9 3.9 CL 101 102 CO2 25 26 ANIONGAP 13 10 GLUF 155* 152* BUN 16 16 CREATININE 1.00 0.82 BCR 16 20 CA 8.4* 8.4* EGFR 56* >60 PROBLEM LIST Principal Problem: Non-ST elevated myocardial infarction (non-STEMI) Active Problems: Essential hypertension, benign DM (diabetes mellitus) CHF (congestive heart failure) Ischemic cardiomyopathy CAD (coronary artery disease) Hypotension, unspecified Cardiomyopathy Hyperlipidemia Renal insufficiency Hyponatremia Acute blood loss anemia Volume overload ASSESSMENT & PLAN Patient is HD stable s/p CABGx5 - Continue Metoprolol to 25 mg BID and Amiodarone 200 mg BID - Continue to hold all narcotic pain medications for now - Increase ambulation, PT/OT - CKD: Good UOP with Torsemide. Dr. Zee's input is appreciated. - Benadryl prn for sleep Stable for discharge home Supportive care Code Status: Full Code The patient has been seen and the plan discussed with the attending provider, Dr. Vimal Bass PA-C 12/16/2013 Ulises Johnson PT - 12/16/2013 7:25 AM PDTFormatting of this note might be different from the o riginal. Therapy Progress Note by Sofia Miller PT at 12/16/13 07 Author: Sofia Miller PT Service: (none) Author Type: Physical Therapist Filed: 12/16/1350 Date of Service: 12/16/13724 Status: Signed Petroleum Engineer: Sofia Miller PT (Physical Therapist) 12/16/13724 PT Last Visit PT Received On 12/16/13 Reason for Treatment Cardiac Requires PT Follow Up Refused Follow up PT Only? No Precautions Cardiac Precautions Sternal Other Comments Comments Patient up in recliner- stated she had had a bad night and was declining PT at thi s time and also stated she thinks she is going home today- will check on her later if census available Cognition Overall Cognitive Status WFL Orientation Level Oriented onversion Transa ction, Provider Unknown - 12/15/2013 10:12 PM PDT Nurse Progress Note by Caitlin Mejia RN at 12/15/132211 Author: Caitlin Mejia RN Service: (none) Author Type: Registered Nurse Filed: 12/15/132212 Date of Service: 12/15/132211 Status: Signed Petroleum Engineer: Caitlin Mejia RN (Registered Nurse) 2211. Pt refused 10 units of levimir. BS 166. Pt is worried her BS will drop too low. Caitlin RN onver yajaira Escobedoaction, Provider Unknown - 12/15/2013 4:25 PM PDT Therapy Progress Note by AIRAM Antunez at 12/15/13 1625 Author: AIRAM Antunez Service: (none) Author Type: Occupational Therapist Filed: 12/15/13 1640 Date of Service: 12/15/13 1625 Status: Signed Petroleum Engineer: AIRAM Antunez (Occupational Therapist) 12/15/13 1628 OT Last Visit OT Received On 12/15/13 Reason for Treatment Cardiac Requires OT Follow Up Yes Assistance Required 1 person Data Steward Needed No Family/Caregiver Present Yes Precautions Cardiac Precautions Sternal Other Comments Comments Pt supine in bed; fatigued but willing to participate in UE AROM exercises. Pt sta roni family will bring in clothing tomorrow and requested to complete dressing tasks with OT assist at that time. Therapeutic Exercise - ROM ROM Yes All Joints - ROM - Right R Motion All Joints AROM R Position All Joints Supine;Against gravity R Weight/Reps/Sets All Joints 10 reps x 3 sets of UE exercises: including bilat shoulder fl exion to 90 degrees, elbow flex/ext, forearm pro/sup, wrist and digit flex/ext. All Joints - ROM - Left L Motion All Joints AROM L Position All Joints Supine;Against gravity L Weight/Reps/Sets All Joints same as above Pt able to recall 3/5 sternal precautions without cuing; able to recall 5/5 with verbal cue s. Education Completed: Education Topic: UE AROM HEP with sternal precautions Completed with: Patient, Spouse Completed by: Written Material, Verbal Education, Demonstration Response to Education: Stated Understanding, Returned Demonstration Occupational Therapy Plan: Continue OT treatment per POC The following recommendations are made for d/c planning at this time: Return to home w/ family support Maria Victoria Burdick MD - 12/15/2013 3:51 PM PDTFormatting of this note might be different from the or iginal. Progress Notes by Maria Victoria Zee MD at 12/15/13 1553 Author: Maria Victoria Zee MD Service: Nephrology Author Type: Physician Filed: 12/15/13 8775 Date of Service: 12/15/131550 Status: Signed Petroleum Engineer: Maria Victoria Zee MD (Physician) PCP : CANDICE VALDES LOS: 7 days Tamiko Crockett is a 83 y.o. female followed for volume management/renal function monitoring s/ p CABG. Significant PMH of: CAD s/p CABG with Dr. Celis 12/09/13 MADELE[place] 09/2013 when admitted to [facility] with peak creatinine of 3 (baseline noted to be 0.9 at that time). (seen by Dr. Monteiro in office following initial evaluation at [facility] 09/2013). HTN DM2 Systolic CHF (historically on losartan, torsemide, digoxin, coreg). Prior Hospitalizations/ED visits: 09/2013 at [facility] 11/2013 at [facility] Interval history: Tamiko Crockett Feels OK today. Overnight events: No fever, chills sweats. No nausea, vomiting or diarrhea. No shortness or breath, but with + chest discomfort and cough. ROS: As in History of Present Illness. 7 area ROS was done and was otherwise negative. Examination: APPEARANCE: Tamiko Crockett is alert, awake, oriented sitting up in bed. VITALS: Reviewed as listed. HEENT: Non-icteric sclera. No JVD. LUNGS: Scattered rales at bases. HEART: Midline scar + S1 soft, no pericardial rub .No murmur. ABDOMEN: Soft, no tenderness. Bowel sounds present. EXTREMITIES: + LE edema. Peripheral pulses not palpable.Right leg with harvest scar bandage d.. SKIN: Warm to touch. No rash or ecchymosis. NEUROLOGIC: Fluent speech, alert, [place], oriented., gait not tested.. PSYCH: Pleasant demeanor. The following portions of the patient's history were reviewed and updated as appropriate: l aboratory data, radiologic studies, allergies, current medications, and problem list. Past m edical, surgical, social, and family history was also reviewed. Past history summarized as a silvia. Scheduled Medications Reviewed. Continuous Infusions Reviewed. Vital Signs: BP 126/65 | Pulse 90 | Temp(Src) 98.3 F (36.8 C) (Oral) | Resp 18 | Ht 1.675 m (5' 5.95 ") | Wt 73 kg (160 lb 15 oz) | BMI 26.02 kg/m2 | SpO2 91% | ? No I&O Detailed Table: I/O last 3 completed shifts: In: 1922.8 [P.O.:1430; I.V.:492.8] Out: 2200 [Urine:2200] Weight change: Hemodynamics Last 24hrs: Assessment and Recommendations: Ms. Crockett is a 83 y.o. female patient with nonoliguric CKD Stage 3 likely secondary to vasc ular disease with minimal proteinuria baseline serum creatinine 1 to 1.2 mg/dL from 2013. UA 10/01/13 Minimal proteinuria. Renal USG 09/2013 Seen by myself. Bilateral renal cysts (no hydronephrosis). Systolic CHF: CAD s/p CABG HTN DM2: Acute blood loss anemia: Hyponatremia: 2 D echo 09/2013 1. Dilated Cardiomyopathy. LVEDd 59mm, severe global hypokinesis, Grade 3 diastolic abnorma lity, LVEF <20%.. Moderate Pulmonary HTN, est systolic PAP 52-57mmHg. Echo Cardiac Adult Limited 12/13/2013 1. LV dimensions NML, global hypokinesis, LVEF 25-30%. Lab data evaluation: Lab Results Component Value Date BUN 16 12/15/2013 CREATININE 0.82 12/15/2013 EGFR >60 12/15/2013 NA 134* 12/15/2013 K 3.9 12/15/2013 CL 102 12/15/2013 CO2 26 12/15/2013 CA 8.4* 12/15/2013 PHOS 3.6 12/09/2013 MG 1.9 12/13/2013 ALB 3.4 12/09/2013 HGB 9.1* 12/13/2013 Component Value Date/Time CREATININE 0.82 12/15/2013 0340 CREATININE 0.81 12/14/2013 0339 CREATININE 0.82 12/13/2013 0330 CREATININE 0.80 12/12/2013 0355 CREATININE 0.77 12/11/2013 0315 CREATININE 1.02* 12/10/2013 0217 CREATININE 1.01* 12/09/2013 1313 CREATININE 1.20* 12/09/2013 0330 CREATININE 1.24* 12/08/2013 2103 CREATININE 1.08* 12/08/2013 1340 12/11/13 Seen with "Alfredo". Kidney function normal. 12/12/13 Started on torsemide. Moved out of MICU. CXR with left pleural effusion and/or atelectasis with some degree of vascular congestion. 12/13/13 Seen with "Alfredo". Kidney function stable. Responded well to torsemide with diures is. CXR 12/13, reviewed by myself, with small right pleural effusion and ? Left pleural effusion with improvement in pulmonary vascular congestion. 12/14/13 Seen with "Alfredo". Kidney function stable. Seen with "Alfredo". Assessment: Kidney function at baseline.Nonoliguric and minimal positive balance with torsemide. Off pressors. Paroxysmal Afib noted, resolved with amiodarone bolus 12/12/13. Started on PO amiodarone Noted repeat echocardiogram 12/13 with ejection fraction of 30%. Seen by Dr. Bynum and tania pickens for repeat echocardiogram in 3 months before deciding if she is a candidate for implanted cardioverter and defibrillator. Respiratory function stable (recovered from narcotic induced respiratory depression 12/09). Clinically minimally volume overloaded with minimal lower extremity edema, no JVD, small pleural pleural effusion, no rales, orthopnea. No acidosis/alkalosis. Mild hyponatremia with some degree of volume overload PK OK. Acute blood loss anemia s/p CABG. Stable. Noted mild thrombocytopenia, stable. No overt bleeding. Chest x-ray 12/15, reviewed by myself, with improving pulmonary vascular congestion. Recommendations: Continue torsemide 10 mg PO every other day. Continue on cetrizine (was on it before surgery). Keep MAP more than 70 mmHg for now at all times. Continue metoprolol for now. Eventually would benefit from TORIN/ARB. 2 gm Na, 2 gm K diet. No IV contrast studies. No NSAIDS/JEONG 2 inhibitors, Aluminum/magnesium containing antacids, magnesium/phosphate con taining enemas Strict I/O Daily weight charting MARIA VICTORIA ZEE MD 12/15/2013 Seen earlier in the day and completed later after rounds. Dictation software, [employer], used which may contain error for similar sounding words. Personal communication requested for any clarification. Prognosis guarded in view of multiple comorbid illnesses and CAD s/p CABG and severe systol ic dysfunction. At this time kidney function is normal and I would sign off. On discharge should follow up with Dr. Monteiro in the office in 2 weeks' time with a metabolic panel. Thank you for the consultation. amta Modesto, PT - 12/15/2013 1:48 PM PDT Therapy Progress Note by Modesto Medina PT at 12/15/13 1348 Author: Modesto Medina PT Service: (none) Author Type: Physical Therapist Filed: 12/15/13 9168 Date of Service: 12/15/13 1348 Status: Signed Petroleum Engineer: Modesto Medina PT (Physical Therapist) 12/15/13 1348 PT Last Visit PT Received On 12/15/13 Reason for Treatment Cardiac Requires PT Follow Up Yes Follow up PT Only? No Assistance Required 1 person Precautions Cardiac Precautions Sternal Other Comments Comments Upon PT arrival, pt in bathroom. Family and RN present in room. Pt assisted pt in the bathroom. Mary Ann for STS. Required verbal cues to not reach forward for the walker during sit to stand transfer. Pt ambulated 170 ft today. She took 1 self initated seated rest break and 1 standing rest break. Pt felt tired and requested to walk shorter distance this aftern oon. Mary Ann with sit to supine. Pt agreed to perform supine exercises. instructed pt and famil y on exercises that pt can do at home and while in the hospital. At the end of the session, pt supine in bed with HOB elevated. RN aware. Cognition Overall Cognitive Status WFL Orientation Level Oriented Transfers Sit to/from Stand Minimal assist (steadying/contact guard) Mobility Weight Bearing Status WBAT RLE;WBAT LLE Ambulation Assistance Standby assist Maximal Ambulation Distance (feet) 170 ft Total Ambulation Distance (feet) 170 ft Distance limited by? Patient's ability Pattern Alternating;Decreased karlo Assistive Device Walker 4 wheeled Supine Supine-Exercise Type Ankle pumps;Heel slides;ABD/ADD;Glut sets;Quad sets Supine-Exercise Comments x10 BLE Activity Tolerance Activity Tolerance Patient limited by fatigue Nurse Made Aware RN aware Plan Treatment/Interventions Continue per Primary PT POC Progress Progressing toward goals Recommendation Recommendations Home with 24 hr supervision/assist Modesto Chicas PT - 12/15/2013 9:20 AM PDT Therapy Progress Note by Modesto Medina PT at 12/15/13919 Author: Modesto Medina PT Service: (none) Author Type: Physical Therapist Filed: 12/15/13953 Date of Service: 12/15/13919 Status: Signed Petroleum Engineer: Modesto Medina PT (Physical Therapist) 12/15/13919 PT Last Visit PT Received On 12/15/13 Reason for Treatment Cardiac Requires PT Follow Up Yes Follow up PT Only? No Assistance Required 1 person Precautions Cardiac Precautions Sternal Other Comments Comments Upon PT arrival, pt seated in a recliner. spouse in room. Pt agreeable to PT. Mary Ann -SBA for sit to stand depending on height of the chair (Mary Ann for sitting/standing from recl iner, SBA for sitting/standing on 4ww), SBA for ambulation with 4ww for a total of 370 ft. P t required 2 seated rest breaks on the 4ww and 1 standing rest break during the walk today. Educated pt on pacing during activities and performing pursed lips breathing. At the end of the session, pt seated in a recliner with call light wthin reach. spouse in room. RN aware.v ital signs: at rest: 124/61, 92%RA, HR 82, post ambulation: 91%RA Cognition Overall Cognitive Status WFL Orientation Level Oriented Transfers Sit to/from Stand Minimal assist (steadying/contact guard);Standby assist Mobility Weight Bearing Status WBAT RLE;WBAT LLE Ambulation Assistance Standby assist Maximal Ambulation Distance (feet) 370 ft Total Ambulation Distance (feet) 370 (2 seated rest breaks, and 1 standing rest break) Distance limited by? Patient's ability Pattern Alternating;Decreased karlo Assistive Device Walker 4 wheeled Modalities Modalities Other therapy Other Therapy Educated and instructed pt on pursed lips breathing and pacing Activity Tolerance Activity Tolerance Patient limited by fatigue;Patient limited by shortness of breath (SOB) Nurse Made Aware RN aware Plan Treatment/Interventions Continue per Primary PT POC Progress Progressing toward goals Recommendation Recommendations Home with 24 hr supervision/assist John Heller PA - 12/15/2013 7:39 AM PDT Progress Notes by John Bass PA-C at 12/15/13 0739 Author: John Bass PA-C Service: (none) Author Type: Physician Top Precipitator Operator Helper - Cert ified Filed: 12/15/1342 Date of Service: 12/15/13738 Status: Attested Petroleum Engineer: John Bass PA-C (Physician Top Precipitator Operator Helper - Certified) Cosigner: Niraj mathews MD at 12/15/13 1305 Attestation signed by Niraj Celis MD at 12/15/13 1305 Patient was seen, examined, labs, x-rays and treatment plan were reviewed. [facility]: Cardiothoracic Surgery Progress Note ROOM: [facility] Hospital Day: LOS: 7 days Post-Op Day: 6 Day Post-Op Surgery/Procedure: Procedure(s) (LRB): CABG - CELSO (N/A) STERNOTOMY INTERNAL MAMMARY ARTERIAL HARVEST (Left) VEIN - ENDOVASCULAR VEIN HARVEST (Right) SUBJECTIVE Events Overnight: Patient HD stable overnight,HR better controlled. NSR 80 bpm. No di zziness, lightheadedness, or palpitations. Some continued SOB with ambulation Ambulating, passing BM. Patient Summary Overnight: - Chest tube OUT, wires IN Scheduled Medications amiodarone 200 mg Oral Daily aspirin 325 mg Oral Daily with breakfast budesonide 2 puff Inhalation BID cetirizine 10 mg Oral Daily cholecalciferol 1,000 Units Oral Daily docusate sodium 100 mg Oral BID guaiFENesin 600 mg Oral BID insulin aspart 0-10 Units Subcutaneous TID AC insulin aspart 0-5 Units Subcutaneous Nightly insulin detemir 10 Units Subcutaneous Nightly levothyroxine 75 mcg Oral QAM AC metoprolol 25 mg Oral BID omeprazole 40 mg Oral QAM AC rosuvastatin 20 mg Oral Nightly torsemide 10 mg Oral Every Other Day Continuous Infusions amiodarone infusion 0.5 mg/min (12/15/13 0400) OBJECTIVE Vital Signs: BP 123/58 | Pulse 75 | Temp(Src) 98.2 F (36.8 C) (Oral) | Resp 18 | Ht 1.675 m (5' 5.95 ") | Wt 73 kg (160 lb 15 oz) | BMI 26.02 kg/m2 | SpO2 91% | ? No Physical Exam: Physical Exam: GENERAL: A&Ox 3, in no acute distress. NEURO: No facial asymmetry, speech normal and non pressured. Normal range of motion in all extremities HEENT: PERRLA, EOMI; Sclerae clear, nonicteric; Oral Mucosa moist and pink with no ulcerati ons/lesions. NECK: No JVD noted, carotid upstrokes brisk without bruits. No thyromegaly. HEART: distant heart sounds. RRR with normal S1 and S2 heart sounds. No murmur, rub, heave, or gallop noted. LUNGS: diminished. Lungs are coarse to auscultation without wheezes, rhonchi, rales. ABDOMEN: Quiet. Soft, nondistended, nontender to palpation with no notable masses. EXTREMITIES: trace edema; warm Incision: clean, dry, and intact. No erythema, discharge, or warmth noted around the incisi on site. Data Recent Labs Lab 12/13/13 0330 12/12/13 0355 12/11/13 0315 WBC 9.9 12.5* 11.9* RBC 2.80* 2.65* 2.60* HGB 9.1* 8.2* 8.1* HCT 26.0* 25.3* 25.1* MCV 92.8 95.6 96.3 MCH 32.5 30.8 31.0 MCHC 35.0 32.2 32.2 RDW 44.6 45.5 45.9 PLT 130* 88* 80* MPV 8.0 8.9 8.9 DIFFTYPE -- AUTOMATED AUTOMATED Recent Labs Lab 12/15/13 0340 12/14/13 033 NA 134* 139 K 3.9 4.0 CL 102 105 CO2 26 28 ANIONGAP 10 10 GLUF 152* 102* BUN 16 19 CREATININE 0.82 0.81 BCR 20 23 CA 8.4* 8.5 EGFR >60 >60 PROBLEM LIST Principal Problem: Non-ST elevated myocardial infarction (non-STEMI) Active Problems: Essential hypertension, benign DM (diabetes mellitus) CHF (congestive heart failure) Ischemic cardiomyopathy CAD (coronary artery disease) Hypotension, unspecified Cardiomyopathy Hyperlipidemia Renal insufficiency Hyponatremia Acute blood loss anemia Volume overload ASSESSMENT & PLAN Patient is HD stable s/p CABGx5 - D/C wires - Continue Metoprolol to 25 mg BID. Titrate Amiodarone to 200 mg BID - Continue to hold all narcotic pain medications for now - Increase ambulation, PT/OT - CKD: Good UOP with Torsemide. Dr. Zee's input is appreciated. - Antonio albertsn for sleep IPR consult. Discharge planning, patient does not want to go to [place]. Supportive care Code Status: Full Code The patient has been seen and the plan discussed with the attending provider, Dr. Vimal Bass PA-C 12/15/2013 onversio n Transaction, Provider Unknown - 12/14/2013 10:55 PM PDTFormatting of this note might be di fferent from the original. Nurse Progress Note by Caitlin Mejia RN at 12/14/13 5462 Author: Caitlin Mejia RN Service: (none) Author Type: Registered Nurse Filed: 12/14/13 0936 Date of Service: 12/14/132254 Status: Signed Petroleum Engineer: Caitlin Mejia RN (Registered Nurse) [id number]. Pt refused 10 units of Levimir. BS is 122. Pt states she is worried that her BS wi ll drop too low if administered. OLGA Tucker onver yajaira Transaction, Provider Unknown - 12/14/2013 3:49 PM PDT Case Management by Vanessa Thomas RN at 12/14/13 2611 Author: Vanessa Thomas RN Service: (none) Author Type: Registered Nurse Filed: 12/14/13 0138 Date of Service: 12/14/13 4658 Status: Signed Petroleum Engineer: Vanessa Thomas RN (Registered Nurse) IPR ordered today. Possible d/c on 12/15 to [facility] in [place]. Referrals sent. Id [facility] enough wants to go home, has 4ww. onver yajaira Transaction, Provider Unknown - 12/14/2013 3:15 PM PDT Therapy Progress Note by Ratna Duncan PT at 12/14/13 1515 Author: Ratna Duncan PT Service: (none) Author Type: Physical Therapist Filed: 12/14/13 1521 Date of Service: 12/14/13 1515 Status: Signed Petroleum Engineer: Ratna Duncan PT (Physical Therapist) 12/14/13 1515 PT Last Visit PT Received On 12/14/13 Reason for Treatment Cardiac Requires PT Follow Up Refused Follow up PT Only? No Assistance Required 1 person Precautions Cardiac Precautions Sternal Other Comments Comments upon PT arrival pt. seated in bed side chair. Pt. verb. that she is exhausted as she has walked outside of her room x2time today & gone to the bathroom [id number] today. Pt. r equesting to not participate w/PT at this time. PT f/u w/RN regarding pt. refusal & PT conc nhung as pt. was on IV amioderone. RN verb. that the IV meds were preventative & her HR was W NL. RN verb. concern w/pt. not wanting to amb. PT to f/u again if schedule permits. Maria Victoria Burdick MD - 12/14/2013 3:00 PM PDTFormatting of this note might be different from the or iginal. Progress Notes by Maria Victoria Zee MD at 12/14/13 1500 Author: Maria Victoria Zee MD Service: Nephrology Author Type: Physician Filed: 12/14/13 151 Date of Service: 12/14/13 1500 Status: Signed Petroleum Engineer: Maria Victoria Zee MD (Physician) PCP : CANDICE VALDES LOS: 6 days Tamiko Crockett is a 83 y.o. female followed for volume management/renal function monitoring s/ p CABG. Significant PMH of: CAD s/p CABG with Dr. Celis 12/09/13 MADELE[place] 09/2013 when admitted to [facility] with peak creatinine of 3 (baseline noted to be 0.9 at that time). (seen by Dr. Monteiro in office following initial evaluation at [facility] 09/2013). HTN DM2 Systolic CHF (historically on losartan, torsemide, digoxin, coreg). Prior Hospitalizations/ED visits: 09/2013 at [facility] 11/2013 at [facility] Interval history: Tamiko Crockett Feels OK today. Overnight events: No fever, chills sweats. No nausea, vomiting or diarrhea. No shortness or breath, but with + chest discomfort and cough. ROS: As in History of Present Illness. 7 area ROS was done and was otherwise negative. Examination: APPEARANCE: Tamiko Crockett is alert, awake, oriented sitting up in bed. VITALS: Reviewed as listed. HEENT: Non-icteric sclera. No JVD. LUNGS: Scattered rales at bases. HEART: Midline scar + S1 soft, no pericardial rub .No murmur. ABDOMEN: Soft, no tenderness. Bowel sounds present. EXTREMITIES: + LE edema. Peripheral pulses not palpable.Right leg with harvest scar bandage d.. SKIN: Warm to touch. No rash or ecchymosis. NEUROLOGIC: Fluent speech, alert, [place], oriented., gait not tested.. PSYCH: Pleasant demeanor. The following portions of the patient's history were reviewed and updated as appropriate: l aboratory data, radiologic studies, allergies, current medications, and problem list. Past m edical, surgical, social, and family history was also reviewed. Past history summarized as a silvia. Scheduled Medications Reviewed. Continuous Infusions Reviewed. Vital Signs: BP 119/60 | Pulse 82 | Temp(Src) 97.8 F (36.6 C) (Oral) | Resp 20 | Ht 1.675 m (5' 5.95 ") | Wt 73.6 kg (162 lb 4.1 oz) | BMI 26.23 kg/m2 | SpO2 92% | ? No I&O Detailed Table: I/O last 3 completed shifts: In: 960 [P.O.:960] Out: 2504 [Urine:2453; Stool:1; Chest Tube:50] Weight change: Hemodynamics Last 24hrs: Assessment and Recommendations: Ms. Crockett is a 83 y.o. female patient with nonoliguric CKD Stage 3 likely secondary to vasc ular disease with minimal proteinuria baseline serum creatinine 1 to 1.2 mg/dL from 2013. UA 10/01/13 Minimal proteinuria. Renal USG 09/2013 Seen by myself. Bilateral renal cysts (no hydronephrosis). Systolic CHF: CAD s/p CABG HTN DM2: Acute blood loss anemia: Hyponatremia: 2 D echo 09/2013 1. Dilated Cardiomyopathy. LVEDd 59mm, severe global hypokinesis, Grade 3 diastolic abnorma lity, LVEF <20%.. Moderate Pulmonary HTN, est systolic PAP 52-57mmHg. Echo Cardiac Adult Limited 12/13/2013 1. LV dimensions NML, global hypokinesis, LVEF 25-30%. Lab data evaluation: Lab Results Component Value Date BUN 19 12/14/2013 CREATININE 0.81 12/14/2013 EGFR >60 12/14/2013 NA 139 12/14/2013 K 4.0 12/14/2013 CL 105 12/14/2013 CO2 28 12/14/2013 CA 8.5 12/14/2013 PHOS 3.6 12/09/2013 MG 1.9 12/13/2013 ALB 3.4 12/09/2013 HGB 9.1* 12/13/2013 Component Value Date/Time CREATININE 0.81 12/14/2013 0339 CREATININE 0.82 12/13/2013 0330 CREATININE 0.80 12/12/2013 0355 CREATININE 0.77 12/11/2013 0315 CREATININE 1.02* 12/10/2013 0217 CREATININE 1.01* 12/09/2013 1313 CREATININE 1.20* 12/09/2013 0330 CREATININE 1.24* 12/08/2013 2103 CREATININE 1.08* 12/08/2013 1340 CREATININE 1.35 10/17/2013 1645 12/11/13 Seen with "Alfredo". Kidney function normal. 12/12/13 Started on torsemide. Moved out of MICU. CXR with left pleural effusion and/or atelectasis with some degree of vascular congestion. 12/13/13 Seen with "Alfredo". Kidney function stable. Responded well to torsemide with diures is. CXR 12/13, reviewed by myself, with small right pleural effusion and ? Left pleural effusion with improvement in pulmonary vascular congestion. 12/14/13 Seen with "Alfredo" Assessment: Kidney function at baseline.Nonoliguric and - balance with torsemide. Off pressors. Paroxysmal Afib noted, resolved with amiodarone bolus 12/12/13. Started on PO amiodarone Noted repeat echocardiogram 12/13 with ejection fraction of 30%. Seen by Dr. Bynum and tania pickens for repeat echocardiogram in 3 months before deciding if she is a candidate for implanted cardioverter and defibrillator. Respiratory function stable (recovered from narcotic induced respiratory depression 12/09). Clinically minimally volume overloaded with minimal lower extremity edema, no JVD, small pleural pleural effusion, no rales, orthopnea. No acidosis/alkalosis. PNa, PK OK. Acute blood loss anemia s/p CABG. Stable. Noted mild thrombocytopenia, stable. No overt bleeding. Recommendations: Continue torsemide 10 mg PO every other day. Start on cetrizine (was on it before surgery). Keep MAP more than 70 mmHg for now at all times. Continue metoprolol for now. Eventually would benefit from TORIN/ARB. 2 gm Na, 2 gm K diet. No IV contrast studies. No NSAIDS/JEONG 2 inhibitors, Aluminum/magnesium containing antacids, magnesium/phosphate con taining enemas Strict I/O Daily weight charting MARIA VICTORIA ZEE MD 12/14/2013 Seen earlier in the day and completed later after rounds. Dictation software, [employer], used which may contain error for similar sounding words. Personal communication requested for any clarification. Prognosis guarded in view of multiple comorbid illnesses and CAD s/p CABG and severe systol ic dysfunction. Dorota Forbes RD - 0 12/14/2013 11:43 AM PDT Progress Notes by Dorota Steen RD at 12/14/13 1143 Author: Dorota Steen RD Service: (none) Author Type: Machine Stuffer Automatic Filed: 12/14/13 1145 Date of Service: 12/14/13 1143 Status: Signed Petroleum Engineer: Dorota Steen RD (Machine Stuffer Automatic) FBG 102 this am. Pt is getting 10 units Levemir at hs, 2 units Novolog with meals and an Endotool correction scale. A1c 6.3, in pre-diabetes range, pt is diet controlled. Recommend change to medium dose Novolog correction and d/c mealtime Novolog. Will cont to monitor BGs. Dorota Steen RD, CDE, Inpatient Machine Stuffer Automatic 12/14/2013 11:45 AM John Heller PA - 12/14/2013 11:05 AM PDT Progress Notes by John Bass PA-C at 12/14/13 1105 Author: John Bass PA-C Service: (none) Author Type: Physician Top Precipitator Operator Helper - Cert ified Filed: 12/14/13 1119 Date of Service: 12/14/13 110 Status: Attested Petroleum Engineer: John Bass PA-C (Physician Top Precipitator Operator Helper - Certified) Cosigner: Niraj mathews MD at 12/14/13 1239 Attestation signed by Niraj Celis MD at 12/14/13 1239 Patient was seen, examined, labs, x-rays and treatment plan were reviewed. [facility]: Cardiothoracic Surgery Progress Note ROOM: [address] [place] [address] Hospital Day: LOS: 6 days Post-Op Day: 4 Day Post-Op Surgery/Procedure: Procedure(s) (LRB): CABG - CELSO (N/A) STERNOTOMY INTERNAL MAMMARY ARTERIAL HARVEST (Left) VEIN - ENDOVASCULAR VEIN HARVEST (Right) SUBJECTIVE Events Overnight: Patient HD stable overnight, transferred to cardiac floor. Sinus Ta ch w/PVCs this AM. No dizziness, lightheadedness, or palpitations. Some SOB with ambulation Ambulating, passing BM. Patient Summary Overnight: - Urine Output ~1000cc overnight/ 1440 in 24 hour with Torsemide - Chest tube OUT, wires IN Scheduled Medications amiodarone 200 mg Oral Daily aspirin 325 mg Oral Daily with breakfast budesonide 2 puff Inhalation BID cetirizine 10 mg Oral Daily cholecalciferol 1,000 Units Oral Daily docusate sodium 100 mg Oral BID guaiFENesin 600 mg Oral BID insulin aspart 0-15 Units Subcutaneous TID AC insulin aspart 0-15 Units Subcutaneous Nightly insulin aspart 2 Units Subcutaneous TID AC insulin detemir 10 Units Subcutaneous Nightly levothyroxine 75 mcg Oral QAM AC metoprolol 25 mg Oral BID omeprazole 40 mg Oral QAM AC rosuvastatin 20 mg Oral Nightly torsemide 10 mg Oral Every Other Day Continuous Infusions amiodarone infusion 1 mg/min (12/14/13 1044) OBJECTIVE Vital Signs: BP 117/59 | Pulse 110 | Temp(Src) 98.4 F (36.9 C) (Oral) | Resp 20 | Ht 1.675 m (5' 5.9 5") | Wt 73.6 kg (162 lb 4.1 oz) | BMI 26.23 kg/m2 | SpO2 92% | ? No Physical Exam: Physical Exam: GENERAL: A&Ox 3, in no acute distress. NEURO: No facial asymmetry, speech normal and non pressured. Normal range of motion in all extremities HEENT: PERRLA, EOMI; Sclerae clear, nonicteric; Oral Mucosa moist and pink with no ulcerati ons/lesions. NECK: No JVD noted, carotid upstrokes brisk without bruits. No thyromegaly. HEART: distant heart sounds. RRR with normal S1 and S2 heart sounds. No murmur, rub, heave, or gallop noted. LUNGS: diminished. Lungs are coarse to auscultation without wheezes, rhonchi, rales. ABDOMEN: Quiet. Soft, nondistended, nontender to palpation with no notable masses. EXTREMITIES: trace edema; warm Incision: clean, dry, and intact. No erythema, discharge, or warmth noted around the incisi on site. Data Recent Labs Lab 12/13/13 0330 12/12/13 0355 12/11/13 0315 WBC 9.9 12.5* 11.9* RBC 2.80* 2.65* 2.60* HGB 9.1* 8.2* 8.1* HCT 26.0* 25.3* 25.1* MCV 92.8 95.6 96.3 MCH 32.5 30.8 31.0 MCHC 35.0 32.2 32.2 RDW 44.6 45.5 45.9 PLT 130* 88* 80* MPV 8.0 8.9 8.9 DIFFTYPE -- AUTOMATED AUTOMATED Recent Labs Lab 12/14/13 0339 12/13/13 0330 NA 139 141 K 4.0 4.0 CL 105 107 CO2 28 26 ANIONGAP 10 11 GLUF 102* 72 BUN 19 16 CREATININE 0.81 0.82 BCR 23 20 CA 8.5 7.8* EGFR >60 >60 PROBLEM LIST Principal Problem: Non-ST elevated myocardial infarction (non-STEMI) Active Problems: Essential hypertension, benign DM (diabetes mellitus) CHF (congestive heart failure) Ischemic cardiomyopathy CAD (coronary artery disease) Hypotension, unspecified Cardiomyopathy Hyperlipidemia Renal insufficiency Hyponatremia Acute blood loss anemia Volume overload ASSESSMENT & PLAN Patient is HD stable s/p CABGx5 - AMIO protocol - Keep wires for now - Titrate Metoprolol to 25 mg BID. - Continue to hold all narcotic pain medications for now - Increase ambulation, PT/OT - CKD: Good UOP with Torsemide. Dr. Zee's input is appreciated. - Antonio nolasco for sleep IPR consult. Discharge planning. Supportive care Code Status: Full Code The patient has been seen and the plan discussed with the attending provider, Dr. Vimal Bass PA-C 12/14/2013 onversio n Transaction, Provider Unknown - 12/14/2013 9:00 AM PDTFormatting of this note might be di fferent from the original. Therapy Progress Note by Clari Chapin PTA at 12/14/13 0900 Author: Clari Chapin PTA Service: (none) Author Type: Coffee Grinder Filed: 12/14/13 1038 Date of Service: 12/14/13 09 Status: Signed Petroleum Engineer: Clari Chapin PTA (Coffee Grinder) 12/14/13 0900 PT Last Visit PT Received On 12/14/13 Reason for Treatment Cardiac Requires PT Follow Up Yes Follow up PT Only? No Assistance Required 1 person Precautions Cardiac Precautions Sternal Other Comments Comments Pt presented to tx sitting up in recliner; agreeable to PT. Pt transferred sit -> stand with min A and ambulated 250' with 4WW and 1L O2. Pt required brief standing rest yobani k to accomplish ambulation. Pt returned to room and left sitting up in recliner with call jose martin maderat within reach and family in room. Cognition Overall Cognitive Status WFL Orientation Level Oriented Bed Mobility Scooting Standby assist Transfers Sit to/from Stand Minimal assist (steadying/contact guard) Mobility Ambulation Assistance Standby assist Maximal Ambulation Distance (feet) 250 Total Ambulation Distance (feet) 250 Distance limited by? Patient's ability Pattern Alternating;Decreased karlo Assistive Device Walker 4 wheeled Activity Tolerance Activity Tolerance Patient limited by fatigue Nurse Made Aware RN Cheyanne aware Plan Treatment/Interventions Continue per Primary PT POC Progress Progressing toward goals Recommendation Recommendations Home with 24 hr supervision/assist onver yajaira Transaction, Provider Unknown - 12/13/2013 10:19 PM PDT Progress Notes by Mary Baugh RN at 12/13/132218 Author: Mary Baugh RN Service: (none) Author Type: Registered Nurse Filed: 12/13/132219 Date of Service: 12/13/132218 Status: Addendum Petroleum Engineer: Mary Baugh RN (Registered Nurse) Related Notes: Original Note by Mary Baugh RN (Registered Nurse) filed at 2219 PT RESTING WELL AT THIS TIME, HR CURRENTLY 102 AND ON 1LPM NC. PT RECEIVED ONE DOSE OF 25MG PO METOPROLOL TONIGHT PER JULIETH LUTHER ORDER. WILL CONTINUE TO MONITOR. RADHA onver yajaira Transaction, Provider Unknown - 12/13/2013 6:38 PM PDT Progress Notes by Jagruti Perdomo RN at 12/13/138 Author: Jagruti Perdomo RN Service: (none) Author Type: Registered Nurse Filed: 12/13/131839 Date of Service: 12/13/131837 Status: Signed Petroleum Engineer: Jagruti Perdomo RN (Registered Nurse) Pt's HR still in the 116-118's, NSR, still on 1L 02, Sa02 94-95%,. Family is concerned. Tc to Julieth, ASHKAN, new order to give amio 150 bolus. Will continue to monitor. onver yajaira Transaction, Provider Unknown - 12/13/2013 5:25 PM PDT Progress Notes by Jagruti Perdomo RN at 12/13/13 1725 Author: Jagruti Perdomo RN Service: (none) Author Type: Registered Nurse Filed: 12/13/13 1810 Date of Service: 12/13/13 1725 Status: Addendum Petroleum Engineer: Jagruti Perdomo RN (Registered Nurse) Related Notes: Original Note by Jagruti Perdomo RN (Registered Nurse) filed at 12/13/13 172 9 After pt ambulated and returned to the chair from the bathroom, HR went up to 120's, then f luctuated between 115-119. Pt was sob because of the walk and because she had been weaned of f 02 this am. Put pt on 1 L 02. Asked pt to do vagal maneuvers, but HR stayed in the 116's. Tc to ASHKAN Cody, per Julieth, monitor pt only if she is asymptomatic, If pt converts to afib, sta rt afib protocol. Will continue to monitor closely. Pt still doing vagal maneuvers in room o ff and on. Pt has been SR, but tachy, not afib. Modesto Chicas, PT - 12/13/2013 1:15 PM PDTFormatting of this note might be different from the o riginal. Therapy Progress Note by Modesto Medina PT at 12/13/13 1315 Author: Modesto Medina PT Service: (none) Author Type: Physical Therapist Filed: 12/13/13 1352 Date of Service: 12/13/13 1315 Status: Signed Petroleum Engineer: Modesto Medina PT (Physical Therapist) 12/13/13 1315 PT Last Visit PT Received On 12/13/13 Reason for Treatment Cardiac Requires PT Follow Up Yes Follow up PT Only? No Assistance Required 1 person Precautions Cardiac Precautions Sternal Other Comments Comments Upon PT arrival, pt seated in a recliner with family present in room. Pt agreeable to PT. SBA for scooting in a chair, Mary Ann for STS. SBA for ambulation with 4ww. Pt took 2 se lf initiated standing rest break during the walk. No LOB or unsteadiness noted. Educated and instructed pt on seated exercises. Pt was able to ambulate without O2 supplement today. Her O2 saturation decreased to 85% post ambulation. Required a few minutes of rest and performe d pursed lips breathing to increase O2 saturation to 91%. At the end of the session, pt seat ed in a recliner with spouse present in room. RN aware. vital signs: at rest: HR 93, 107/58, 91% RA, Post ambulation: 85%RA after a few minutes of rest and perform pursed lips breathin g O2 saturation increased to 91%RA Cognition Overall Cognitive Status WFL Orientation Level Oriented Bed Mobility Scooting Standby assist Transfers Sit to/from Stand Minimal assist (steadying/contact guard) Mobility Weight Bearing Status WBAT RLE;WBAT LLE Ambulation Assistance Standby assist Maximal Ambulation Distance (feet) 250 Total Ambulation Distance (feet) 250 ft (2 standing rest breaks) Distance limited by? Patient's ability Pattern Alternating;Decreased karlo Assistive Device Walker 4 wheeled Seated Seated-Exercise Type Long arc quads;Heel raises;Toe raises Seated-Exercise Comments x10 BLE Modalities Modalities Other therapy Other Therapy Educated pt on pursed lips breathing. Activity Tolerance Activity Tolerance Patient limited by fatigue Nurse Made Aware RN aware Plan Treatment/Interventions Continue per Primary PT POC Progress Progressing toward goals Recommendation Recommendations Home with 24 hr supervision/assist Maria Victoria Burdick MD - 12/13/2013 12:13 PM PDT Progress Notes by Maria Victoria Zee MD at 12/13/13 1213 Author: Maria Victoria Zee MD Service: Nephrology Author Type: Physician Filed: 12/13/13 1228 Date of Service: 12/13/13 1213 Status: Signed Petroleum Engineer: Maria Victoria Zee MD (Physician) PCP : CANDICE VALDES LOS: 5 days Tamiko Crockett is a 83 y.o. female followed for volume management/renal function monitoring s/ p CABG. Significant PMH of: CAD s/p CABG with Dr. Celis 12/09/13 MADELEINE 09/2013 when admitted to [facility] with peak creatinine of 3 (baseline noted to be 0.9 at that time). (seen by Dr. Monteiro in office following initial evaluation at [facility] 09/2013). HTN DM2 Systolic CHF (historically on losartan, torsemide, digoxin, coreg). Prior Hospitalizations/ED visits: 09/2013 at [facility] 11/2013 at [facility] Interval history: Tamiko Crockett Feels OK today. Overnight events: No fever, chills sweats. No nausea, vomiting or diarrhea. No shortness or breath, but with + chest discomfort and cough. ROS: As in History of Present Illness. 7 area ROS was done and was otherwise negative. Examination: APPEARANCE: Tamiko Crockett is alert, awake, oriented sitting up in bed. VITALS: Reviewed as listed. HEENT: Non-icteric sclera. No JVD. LUNGS: Scattered rales at bases. HEART: Midline scar + S1 soft, no pericardial rub .No murmur.Mediastinal drain + ABDOMEN: Soft, no tenderness. Bowel sounds present. EXTREMITIES: + LE edema. Peripheral pulses not palpable.Right leg with harvest scar bandage d.. SKIN: Warm to touch. No rash or ecchymosis. NEUROLOGIC: Fluent speech, alert, awalem, oriented., gait not tested.. PSYCH: Pleasant demeanor. The following portions of the patient's history were reviewed and updated as appropriate: l aboratory data, radiologic studies, allergies, current medications, and problem list. Past m edical, surgical, social, and family history was also reviewed. Past history summarized as a silvia. Scheduled Medications Reviewed. Continuous Infusions Reviewed. Vital Signs: BP 110/53 | Pulse 93 | Temp(Src) 98.9 F (37.2 C) (Oral) | Resp 20 | Ht 1.675 m (5' 5.95 ") | Wt 73.6 kg (162 lb 4.1 oz) | BMI 26.23 kg/m2 | SpO2 92% | ? No I&O Detailed Table: I/O last 3 completed shifts: In: 840 [P.O.:840] Out: 3914 [Urine:3626; Chest Tube:288] Weight change: -2.5 kg (-5 lb 8.2 oz) Hemodynamics Last 24hrs: Assessment and Recommendations: Ms. Crockett is a 83 y.o. female patient with nonoliguric CKD Stage 3 likely secondary to vasc ular disease with minimal proteinuria baseline serum creatinine 1 to 1.2 mg/dL from 2013. UA 10/01/13 Minimal proteinuria. Renal USG 09/2013 Seen by myself. Bilateral renal cysts (no hydronephrosis). Systolic CHF: CAD s/p CABG HTN DM2: Acute blood loss anemia: Hyponatremia: 2 D echo 09/2013 1. Dilated Cardiomyopathy. LVEDd 59mm, severe global hypokinesis, Grade 3 diastolic abnorma lity, LVEF <20%.. Moderate Pulmonary HTN, est systolic PAP 52-57mmHg. Lab data evaluation: Lab Results Component Value Date BUN 16 12/13/2013 CREATININE 0.82 12/13/2013 EGFR >60 12/13/2013 NA 141 12/13/2013 K 4.0 12/13/2013 CL 107 12/13/2013 CO2 26 12/13/2013 CA 7.8* 12/13/2013 PHOS 3.6 12/09/2013 MG 1.9 12/13/2013 ALB 3.4 12/09/2013 HGB 9.1* 12/13/2013 Component Value Date/Time CREATININE 0.82 12/13/2013 0330 CREATININE 0.80 12/12/2013 0355 CREATININE 0.77 12/11/2013 0315 CREATININE 1.02* 12/10/2013 0217 CREATININE 1.01* 12/09/2013 1313 CREATININE 1.20* 12/09/2013 0330 CREATININE 1.24* 12/08/2013 2103 CREATININE 1.08* 12/08/2013 1340 CREATININE 1.35 10/17/2013 1645 CREATININE 1.63* 10/10/2013 1605 12/11/13 Seen with "Alfredo". Kidney function normal. 12/12/13 Started on torsemide. Moved out of MICU. CXR with left pleural effusion and/or atelectasis with some degree of vascular congestion. 12/13/13 Seen with "Alfredo" Assessment: Kidney function at baseline. Creatinine below baseline with hydration. Nonoliguric and - balance with torsemide. Off pressors. Paroxysmal Afib noted, resolved with amiodarone bolus 12/12/13. Started on PO amiodarone Respiratory function stable (recovered from narcotic induced respiratory depression 12/09). Clinically minimally volume overloaded with minimal lower extremity edema, no JVD, small pleural pleural effusion, no rales, orthopnea. No acidosis/alkalosis. PNa, PK OK. Acute blood loss anemia s/p CABG. Stable. Noted mild thrombocytopenia, stable. No overt bleeding. CXR with small right pleural effusion and ? Left pleural effusion with improvement in pulmo nary vascular congestion. Recommendations: Continue torsemide but reduce to 10 mg PO every other day. Start on cetrizine (was on it before surgery). Keep MAP more than 70 mmHg for now at all times. Continue metoprolol for now. Eventually would benefit from TORIN/ARB. 2 gm Na, 2 gm K diet. No IV contrast studies. No NSAIDS/JEONG 2 inhibitors, Aluminum/magnesium containing antacids, magnesium/phosphate con taining enemas. Strict I/O Daily CMP (including Mg, PO4). MARIA VICTORIA ZEE MD 12/13/[address] Celis Seen earlier in the day and charting completed later after rounds. Dictation software, [employer], used which may contain error for similar sounding words. Personal communication requested for any clarification. Prognosis guarded in view of multiple comorbid illnesses and CAD s/p CABG and severe systol ic dysfunction. Modesto Chicas PT - 12/13/2013 9:00 AM PDT Therapy Progress Note by Modesto Medina PT at 12/13/13 09 Author: Modesto Medina PT Service: (none) Author Type: Physical Therapist Filed: 12/13/1336 Date of Service: 12/13/13899 Status: Signed Petroleum Engineer: Modesto Medina PT (Physical Therapist) 12/13/13 09 PT Last Visit PT Received On 12/13/13 Reason for Treatment Cardiac Requires PT Follow Up Yes Follow up PT Only? No Assistance Required 1 person Precautions Cardiac Precautions Sternal Other Comments Comments Upon PT arrival, pt seated in a recliner. Family present in room. Pt agreeable to PT. Pt on RA. Mary Ann for scooting in a chair and STS. SBA for ambulation with 4ww for 250 ft. Pt took 3 self initiated standing rest breaks during the walk. Pt was on 1 L of O2 via NC du ring the walk. Her O2 saturation decreased to 85% post ambulation. After pursed lips breathi ng and resting for a few minutes, her O2 saturation increased to 91% with 1 L of O2. vital s igns: at rest:108/57, HR 90, 90% with RA, 94% with 1L of O2 via NC, post activities: 85% wit h 1 L of O2, increased to 91% with pursed lips breathing and a few minutes of rest, 116/64, HR 132, turn O2 supplement off: 94% RA Cognition Overall Cognitive Status WFL Orientation Level Oriented Bed Mobility Scooting Minimal assist Transfers Sit to/from Stand Minimal assist (steadying/contact guard) Mobility Ambulation Assistance Standby assist Maximal Ambulation Distance (feet) 250 Total Ambulation Distance (feet) 250 ft Distance limited by? Patient's ability Pattern Alternating;Decreased karlo Assistive Device Walker 4 wheeled Activity Tolerance Nurse Made Aware RN aware Plan Treatment/Interventions Continue per Primary PT POC Progress Progressing toward goals Recommendation Recommendations Home with 24 hr supervision/assist John Heller PA - 12/13/2013 8:24 AM PDT Progress Notes by John Bass PA-C at 12/13/13823 Author: John Bass PA-C Service: (none) Author Type: Physician Top Precipitator Operator Helper - Cert ified Filed: 12/13/13828 Date of Service: 12/13/13823 Status: Attested Petroleum Engineer: John Bass PA-C (Physician Top Precipitator Operator Helper - Certified) Cosigner: Niraj mathews MD at 12/13/13832 Attestation signed by Niraj Celis MD at 12/13/13832 Patient was seen, examined, labs, x-rays and treatment plan were reviewed. [facility] Service: Cardiothoracic Surgery Progress Note ROOM: 4445/44-1 Hospital Day: LOS: 5 days Post-Op Day: 3 Day Post-Op Surgery/Procedure: Procedure(s) (LRB): CABG - CELSO (N/A) STERNOTOMY INTERNAL MAMMARY ARTERIAL HARVEST (Left) VEIN - ENDOVASCULAR VEIN HARVEST (Right) SUBJECTIVE Events Overnight: Patient HD stable overnight, transferred to cardiac floor. Brief ep isode of atrial fibrillation that resolved with AMIO bolus. NSR with PVCs this AM. Feeling OK. Pain with coughing. Cough is wet, unproductive Ambulating, passing BM. Patient Summary Overnight: - Urine Output ~1013cc overnight/3 L in 24 hour with Torsemide - Chest tube in place: 50ml output overnight, no airleak noted. Scheduled Medications aspirin 325 mg Oral Daily with breakfast budesonide 2 puff Inhalation BID cholecalciferol 1,000 Units Oral Daily docusate sodium 100 mg Oral BID guaiFENesin 600 mg Oral BID insulin aspart 0-15 Units Subcutaneous TID AC insulin aspart 0-15 Units Subcutaneous Nightly insulin aspart 2 Units Subcutaneous TID AC insulin detemir 10 Units Subcutaneous Nightly levothyroxine 75 mcg Oral QAM AC metoprolol 12.5 mg Oral BID omeprazole 40 mg Oral QAM AC rosuvastatin 20 mg Oral Nightly Continuous Infusions amiodarone infusion OBJECTIVE Vital Signs: BP 112/55 | Pulse 85 | Temp(Src) 97.9 F (36.6 C) (Oral) | Resp 20 | Ht 1.675 m (5' 5.95 ") | Wt 73.6 kg (162 lb 4.1 oz) | BMI 26.23 kg/m2 | SpO2 97% | ? No Physical Exam: Physical Exam: GENERAL: A&Ox 3, in no acute distress. NEURO: No facial asymmetry, speech normal and non pressured. Normal range of motion in all extremities HEENT: PERRLA, EOMI; Sclerae clear, nonicteric; Oral Mucosa moist and pink with no ulcerati ons/lesions. NECK: No JVD noted, carotid upstrokes brisk without bruits. No thyromegaly. HEART: distant heart sounds. RRR with normal S1 and S2 heart sounds. No murmur, rub, heave, or gallop noted. LUNGS: diminished. Lungs are coarse to auscultation without wheezes, rhonchi, rales. ABDOMEN: Quiet. Soft, nondistended, nontender to palpation with no notable masses. EXTREMITIES: trace edema; warm Incision: clean, dry, and intact. No erythema, discharge, or warmth noted around the incisi on site. Data Recent Labs Lab 12/13/13 0330 12/12/13 0355 12/11/13 0315 WBC 9.9 12.5* 11.9* RBC 2.80* 2.65* 2.60* HGB 9.1* 8.2* 8.1* HCT 26.0* 25.3* 25.1* MCV 92.8 95.6 96.3 MCH 32.5 30.8 31.0 MCHC 35.0 32.2 32.2 RDW 44.6 45.5 45.9 PLT 130* 88* 80* MPV 8.0 8.9 8.9 DIFFTYPE -- AUTOMATED AUTOMATED Recent Labs Lab 12/13/13 0330 12/12/13 1859 12/12/13 0355 NA 141 -- 136 K 4.0 4.5 4.3 CL 107 -- 109 CO2 26 -- 24 ANIONGAP 11 -- 7 GLUF 72 -- 65 BUN 16 -- 12 CREATININE 0.82 -- 0.80 BCR 20 -- 15 CA 7.8* -- 8.2* EGFR >60 -- >60 PROBLEM LIST Principal Problem: Non-ST elevated myocardial infarction (non-STEMI) Active Problems: Essential hypertension, benign DM (diabetes mellitus) CHF (congestive heart failure) Ischemic cardiomyopathy CAD (coronary artery disease) Hypotension, unspecified Cardiomyopathy Hyperlipidemia Renal insufficiency Hyponatremia Acute blood loss anemia ASSESSMENT & PLAN Patient is HD stable s/p CABGx5 - Austin chest tube, D/C late today - Keep wires for one more day - Monitor rhythm, one time AMIO 200 mg PO. - Continue to hold all narcotic pain medications for now - Increase ambulation, PT/OT - CKD: Good UOP with Torsemide. Dr. Zee's input is appreciated. - Ayala per Renal. - Benadryl prn for sleep Discharge planning. Supportive care Code Status: Full Code The patient has been seen and the plan discussed with the attending provider, Dr. Vimal Bass PA-C 12/13/2013 onversio n Transaction, Provider Unknown - 12/13/2013 6:43 AM PDTFormatting of this note might be di fferent from the original. Therapy Progress Note by ROXY Whalen/Ajith at 12/13/13 0643 Author: ROXY Whalen/Ajith Service: (none) Author Type: Occupational Therapist Filed: 12/13/13 1017 Date of Service: 12/13/13 0643 Status: Signed Petroleum Engineer: AIRAM Whalen (Occupational Therapist) 12/13/13 0643 OT Last Visit OT Received On 12/13/13 Reason for Treatment Cardiac Requires OT Follow Up Yes Assistance Required 1 person Data Steward Needed No Family/Caregiver Present No Precautions Cardiac Precautions Sternal Feeding Feeding Level of Assistance Independent Feeding Where Assessed (seated in chair) Grooming Grooming Level of Assistance Setup (wash/dry hands) Grooming Where Assessed Other (Comment) (seated in chair, after s/u) UE Bathing UE Bathing Comments Reviewed technique to reinforce precautions and AE to assist in bathing . Educ. pt. on ECTs during bathing, UE Dressing UE Dressing Comments Educ/review donning/doffing button up and pullover shirts. Pt. would b enefit from practicing donning shirt-pt. plans to have spouse bring in clothes LE Dressing LE Dressing (educ/review donning pants; and use of AE) Toileting Toileting Comments Educ./review personal hygiene to reinforce precautions. Therapeutic Exercise - ROM Other Exercise Provided pt. with tputty: educ. pinch, twist, squeeze, pull with B UEs to de crease edema bilat. Pt. plan to cont. independently. Education Completed: Education Topic: reinforce precautions, AROM HEP Completed with: Patient Completed by: Written Material, Verbal Education, Demonstration Response to Education: Stated Understanding, Returned Demonstration, Reinforcement Dimple fontana for Education Understanding Occupational Therapy Plan: Continue OT treatment per POC The following recommendations are made for d/c planning at this time: Cont. Acute skilled OT services Return to home w/ family support Barriers to d/c at this time include: Equipment needs assortment planner, shower brush Physical deficits impacting functional independence Self-care deficits impacting functional independence SYEDA Whalen, CSRS 12/13/13 Aletha Polk OTR/L - 12/12/2013 1:00 PM PDT Therapy Progress Note by AIRAM Land at 12/12/13 1300 Author: AIRAM Land Service: (none) Author Type: Occupational Therapist Filed: 12/12/13 1353 Date of Service: 12/12/13 1300 Status: Signed Petroleum Engineer: AIRAM Land (Occupational Therapist) 12/12/13 1300 OT Last Visit OT Received On 12/12/13 Reason for Treatment Cardiac Requires OT Follow Up Yes Assistance Required 1 person Family/Caregiver Present Yes Precautions Cardiac Precautions Sternal (able to recall, attending to ) Other Comments Comments Without orthostaic BP while assuming or maintaining stand. Pt reported feeling ve ry well today. Toileting Toileting Level of Assistance Moderate assistance (Education provided to the patient / spouse on toileting tech) Where Assessed Bedside commode Toileting Comments sit to stand technique taught with trial x3 for assuming stand, standing for alphonso care assisted by RN x3 minutes, SOB noted with standing, transitioned to chair CGA . Education to lowering to sit as the patient is transitioning stand to sit without control Therapeutic Exercise - ROM ROM Yes Other Exercise opposition thumb to fingers, g/h flexion to 90 degrees, IR /ER with elbows s tationary positioned at side, biceps curls (Completed x20 / 1 set each, wrote on board completion x3/d) Activity Tolerance Activity Tolerance Patient tolerated treatment well;Patient limited by fatigue Safety Devices Safety Devices in Place Yes Restraints Initially in Place Yes Education Completed: Education Topic: precautions, HEP, and toileting AT Completed with: Patient, Spouse Completed by: Written Material, Verbal Education Response to Education: Stated Understanding, Reinforcement Necessary for Education Under standing Occupational Therapy Plan: Continue OT treatment per POC - patient making progress and actively participating The following recommendations are made for d/c planning at this time: IPR Barriers to d/c at this time include: Equipment needs: Determine as the patient progresses Physical deficits impacting functional independence Self-care deficits impacting functional independence onversion Cm saction, Provider Unknown - 12/12/2013 12:32 PM PDTFormatting of this note might be differen t from the original. Progress Notes by Nicole Garcia RN at 12/12/13 1239 Author: Nicole Garcia RN Service: (none) Author Type: Registered Nurse Filed: 12/12/13 1234 Date of Service: 12/12/13 1232 Status: Signed Petroleum Engineer: Nicole Garcia, RN (Registered Nurse) Pharmacy called regarding torsemide 10 mg dose, stated they have been "unable to get this m edication for months." Dr Zee notified, see new orders. onver yajaira Transaction, Provider Unknown - 12/12/2013 12:02 PM PDT Therapy Progress Note by Jose Hernandez, PT at 12/12/13 1202 Author: Jose Hernandez, PT Service: (none) Author Type: Physical Therapist Filed: 12/12/13 1422 Date of Service: 12/12/13 1202 Status: Signed Petroleum Engineer: Jose Hernandez PT (Physical Therapist) 12/12/13 1202 PT Last Visit PT Received On 12/12/13 Reason for Treatment Cardiac Requires PT Follow Up Yes Follow up PT Only? No Assistance Required 1 person Precautions Cardiac Precautions Sternal Other Comments Comments Pt. continues to improve from physical standpoint. In addtion, BP remains appropr iate pre and post activity. Pt. denies syncope/dizziness. Pt. ambulated 215 ft. w/ Mary Ann us ing light [facility] on w/c. Required Mary Ann for transfer to stand and modA for transfer up OOB. Pt . left up in chair w/ LE reclined up and call light within reach. Cognition Overall Cognitive Status WFL Orientation Level Oriented Bed Mobility Supine to Sit Mod assist (BLEs OOB or trunk to upright) Scooting Minimal assist Transfers Sit to/from Stand Minimal assist (steadying/contact guard) Bed to/from Chair Minimal assist (steadying/contact guard) Mobility Ambulation Assistance Standby assist;Minimal assist Maximal Ambulation Distance (feet) 215 Total Ambulation Distance (feet) 215 Distance limited by? Patient's ability Pattern Decreased karlo;Right swing foot doesn't pass stance foot;Left swing foot doesn't pass stance foot;WFL Assistive Device (w/c) Activity Tolerance Activity Tolerance Patient tolerated treatment without report of fatigue Nurse Made Aware yes Plan Treatment/Interventions Continue per Primary PT POC Progress Progressing toward goals Recommendation Recommendations Home with 24 hr supervision/assist Maria Victoria Burdick MD - 12/12/2013 11:26 AM PDTFormatting of this note might be different from the or iginal. Progress Notes by Maria Victoria Zee MD at 12/12/13 1126 Author: Maria Victoria Zee MD Service: Nephrology Author Type: Physician Filed: 12/12/13 1143 Date of Service: 12/12/13 112 Status: Signed Petroleum Engineer: Maria Victoria Zee MD (Physician) PCP : CANDICE VALDES LOS: 4 days Tamiko Crockett is a 83 y.o. female followed for volume management/renal function monitoring s/ p CABG. Significant PMH of: CAD s/p CABG with Dr. Celis 12/09/13 MADELEINE 09/2013 when admitted to [facility] with peak creatinine of 3 (baseline noted to be 0.9 at that time). (seen by Dr. Monteiro in office following initial evaluation at [facility] 09/2013). HTN DM2 Systolic CHF (historically on losartan, torsemide, digoxin, coreg). Prior Hospitalizations/ED visits: 09/2013 at [facility] 11/2013 at [facility] Interval history: Tamiko Crockett indicated 'being more puffy' today. Overnight events: No fever, chills sweats. No nausea, vomiting or diarrhea. No shortness or breath, but with + chest discomfort and cough. ROS: As in History of Present Illness. 7 area ROS was done and was otherwise negative. Examination: APPEARANCE: Tamiko Crockett is alert, awake, oriented sitting up in chair. VITALS: Reviewed as listed. HEENT: Non-icteric sclera. No JVD. LUNGS: Scattered rales at bases. HEART: Midline scar + S1 soft, no pericardial rub .No murmur.Mediastinal drain + ABDOMEN: Soft, no tenderness. Bowel sounds present. EXTREMITIES: + LE edema. Peripheral pulses not palpable. Right leg in bandage. SKIN: Warm to touch. No rash or ecchymosis. NEUROLOGIC: Fluent speech, alert, awalem, oriented., gait not tested.. PSYCH: Pleasant demeanor. The following portions of the patient's history were reviewed and updated as appropriate: l aboratory data, radiologic studies, allergies, current medications, and problem list. Past m edical, surgical, social, and family history was also reviewed. Past history summarized as a silvia. Scheduled Medications Reviewed. Continuous Infusions Reviewed. Vital Signs: BP 107/58 | Pulse 92 | Temp(Src) 97.5 F (36.4 C) (Oral) | Resp 18 | Ht 1.675 m (5' 5.95 ") | Wt 76.1 kg (167 lb 12.3 oz) | BMI 27.12 kg/m2 | SpO2 97% | ? No I&O Detailed Table: I/O last 3 completed shifts: In: 2350 [P.O.:1600; I.V.:750] Out: 2598 [Urine:1910; Chest Tube:688] Weight change: -0.4 kg (-14.1 oz) Hemodynamics Last 24hrs: Assessment and Recommendations: Ms. Crockett is a 83 y.o. female patient with nonoliguric CKD Stage 3 likely secondary to vasc ular disease with minimal proteinuria baseline serum creatinine 1 to 1.2 mg/dL from 2013. UA 10/01/13 Minimal proteinuria. Renal USG 09/2013 Seen by myself. Bilateral renal cysts (no hydronephrosis). Systolic CHF: CAD s/p CABG HTN DM2: Acute blood loss anemia: Hyponatremia: 2 D echo 09/2013 1. Dilated Cardiomyopathy. LVEDd 59mm, severe global hypokinesis, Grade 3 diastolic abnorma lity, LVEF <20%.. Moderate Pulmonary HTN, est systolic PAP 52-57mmHg. Lab data evaluation: Lab Results Component Value Date BUN 12 12/12/2013 CREATININE 0.80 12/12/2013 EGFR >60 12/12/2013 NA 136 12/12/2013 K 4.3 12/12/2013 CL 109 12/12/2013 CO2 24 12/12/2013 CA 8.2* 12/12/2013 PHOS 3.6 12/09/2013 MG 2.3 12/12/2013 ALB 3.4 12/09/2013 HGB 8.2* 12/12/2013 Component Value Date/Time CREATININE 0.80 12/12/2013 0355 CREATININE 0.77 12/11/2013 0315 CREATININE 1.02* 12/10/2013 0217 CREATININE 1.01* 12/09/2013 1313 CREATININE 1.20* 12/09/2013 0330 CREATININE 1.24* 12/08/2013 2103 CREATININE 1.08* 12/08/2013 1340 CREATININE 1.35 10/17/2013 1645 CREATININE 1.63* 10/10/2013 1605 CREATININE 1.37* 10/06/2013 0433 12/11/13 Seen with "Alfredo". Kidney function normal. 12/12/13 Assessment: Kidney function at baseline. Creatinine below baseline with hydration. Nonoliguric and m inimal + balance. Off pressors. Respiratory function stable (recovered from narcotic induced respiratory depression 12/09). Clinically close to euvolemic with no lower extremity edema, JVD, pleural effusion, rale s, orthopnea. No acidosis/alkalosis. PNa, PK OK. Acute blood loss anemia s/p CABG. Stable. Low grade temp noted. Minimal leucocytosis, stable. Noted mild thrombocytopenia, stable. No overt bleeding. CXR with left pleural effusion and/or atelectasis with some degree of vascular congestion. Recommendations: Use a dose of torsemide 10 mg IV * 1. Continue pressor support and cautious hydration for now. Keep MAP more than 70 mmHg for now at all times. Continue metoprolol for now. Eventually would benefit from TORIN/ARB. Once out of shock w ould also possibly need to resume diuretic and/or digoxin. 2 gm Na, 2 gm K diet. No IV contrast studies. No NSAIDS/JEONG 2 inhibitors, Aluminum/magnesium containing antacids, magnesium/phosphate con taining enemas. Strict I/O Daily CMP (including Mg, PO4). MARIA VICTORIA ZEE MD 12/12/2013 Seen earlier in the day and charting completed later after rounds. Dictation software, [employer], used which may contain error for similar sounding words. Personal communication requested for any clarification. Prognosis guarded in view of multiple comorbid illnesses and CAD s/p CABG and severe systol ic dysfunction. onversion Transactio n, Provider Unknown - 12/12/2013 6:39 AM PDT Therapy Progress Note by Sulaiman Tapia PTA at 12/12/13 0667 Author: Sulaiman Tapia PTA Service: (none) Author Type: Coffee Grinder Filed: 12/12/13 0641 Date of Service: 12/12/13 0639 Status: Signed Petroleum Engineer: Sulaiman Tapia PTA (Coffee Grinder) 12/12/13 0639 PT Last Visit PT Received On 12/12/13 Reason for Treatment Cardiac Requires PT Follow Up Yes Assistance Required 1 person Precautions Cardiac Precautions Sternal Other Comments Comments pt willing to participate no new c/o Cognition Overall Cognitive Status WFL Orientation Level Oriented Bed Mobility Supine to Sit Mod assist (BLEs OOB or trunk to upright) Scooting Minimal assist Transfers Sit to/from Stand Minimal assist (steadying/contact guard) Mobility Ambulation Assistance Standby assist Maximal Ambulation Distance (feet) 130 Total Ambulation Distance (feet) 130 Distance limited by? Patient's ability Pattern Alternating;Decreased karlo Assistive Device Other (Comment) (w/c) Activity Tolerance Activity Tolerance Patient limited by fatigue Plan Treatment/Interventions Continue per Primary PT POC Progress Progressing toward goals Recommendation Recommendations Home with 24 hr supervision/assist onver yajaira Ponce, Provider Unknown - 12/11/2013 2:35 PM PDT Therapy Progress Note by Bev Castaneda PT at 12/11/13 1435 Author: Bev Castaneda PT Service: (none) Author Type: Physical Therapist Filed: 12/11/13 1076 Date of Service: 12/11/13 1435 Status: Signed Petroleum Engineer: Bev Castaneda PT (Physical Therapist) 12/11/13 1435 PT Last Visit PT Received On 12/11/13 Reason for Treatment Cardiac Requires PT Follow Up Yes Follow up PT Only? No Assistance Required 1 person;2 person (2nd person for lines) Precautions Cardiac Precautions Sternal Other Comments Comments Pt in supine upon arrival, agreeable to PT. Pre activity: BP 105/52 HR 81 bpm O2 9 6% on 3 L O2. Pt is no longer requiring Nguyễn. Transport monitor used to monitor BP during am bulation. Pt demonstrated improved physiological response to activity as both HR and BP incr eased with standing and ambulating. HR in low 100s and BP in 140s over 50s throughout mobili ty. Pt denied dizziness/lightheadedness throughout mobility, although reported mild SOB and fatigue. Pt left sitting in chair at end of session. Post activity: BP 128/60 HR 92 bpm O2 9 5% on 3 L O2. Cognition Overall Cognitive Status WFL Orientation Level Oriented Bed Mobility Supine to Sit Mod assist (BLEs OOB or trunk to upright) Scooting Minimal assist;Moderate assist;x 1 person (sitting EOB) Transfers Sit to/from Stand Minimal assist (steadying/contact guard) Mobility Ambulation Assistance Minimal assist;X1;X2 (3rd person following behind in w/c) Maximal Ambulation Distance (feet) 120 Total Ambulation Distance (feet) 120 Distance limited by? Patient's ability Pattern Alternating;Decreased karlo;Right swing foot passes stance foot;Left swing foot p asses stance foot Assistive Device (NURSING ASSOC on w/c) Modalities Modalities Other therapy Other Therapy Ed on further progression of mobility and breathing technique Activity Tolerance Activity Tolerance Patient limited by fatigue Nurse Made Aware OLGA Dhaliwal Safety Devices Safety Devices in Place (multiple family present) Plan Treatment/Interventions Continue per Primary PT POC Progress Progressing toward goals Recommendation Recommendations Continue acute care therapy;Home with 24 hr supervision/assist Recommendation Comments Expect pt to progress to return home with assist. onver yajaira Transaction, Provider Unknown - 12/11/2013 11:30 AM PDT Therapy Progress Note by Jose Hernandez PT at 12/11/13 1130 Author: Jose Hernandez PT Service: (none) Author Type: Physical Therapist Filed: 12/11/13 6632 Date of Service: 12/11/13 1130 Status: Signed Petroleum Engineer: Jose Hernandez PT (Physical Therapist) 12/11/13 1130 PT Last Visit PT Received On 12/11/13 Reason for Treatment Cardiac Requires PT Follow Up Yes Follow up PT Only? Yes Assistance Required 1 person;2 person Precautions Cardiac Precautions Sternal Other Comments Comments Pt. is agreeable to mobilize at this time. Pt. reports 5/10 pain from chest tubes . Pt. denies feeling dizzy or light headed at rest. Olga Dhaliwal report Nguyễn has been weaned janis n significantly. Tele was placed on pt. as well as transport monitor to watch BP closely du ring amb. SBP is 130's at rest. HR 71 bpm. Pt. is able to transfer OOB w/ modA. Able to stand w/ min/modA. Pt. ambulated w/ 1 person Mary Ann + RN assist for lines and pt.'s spouse bart aleman w/ w/c as needed. Pt. ambulated approx. [address] Pt. tolerated well. SB P remained 120s to 130s. HR up to mid/upper 70s. Pt. denies feeling syncopal. She was ass isted onto a commode after return to the room. RN Isra to assist back to chair. Cognition Overall Cognitive Status WFL Orientation Level Oriented Bed Mobility Supine to Sit Mod assist (BLEs OOB or trunk to upright) Scooting Minimal assist;Moderate assist Transfers Sit to/from Stand Minimal assist (steadying/contact guard);Moderate assist (to arise OR low er) Bed to/from Chair Minimal assist (steadying/contact guard);Moderate assist (to arise OR low er) Mobility Ambulation Assistance Minimal assist;X2;X1 (x3 for w/c to follow) Maximal Ambulation Distance (feet) 95 Total Ambulation Distance (feet) 95 Distance limited by? Patient's ability Pattern Decreased karlo;Right swing foot doesn't pass stance foot;Left swing foot doesn't pass stance foot Assistive Device (w/c NURSING ASSOC) Balance Balance (steady sitting/standing balance. Denies dizziness) Activity Tolerance Activity Tolerance Patient tolerated treatment without report of fatigue Nurse Made Aware yes Plan Treatment/Interventions Continue per Primary PT POC Progress Progressing toward goals Recommendation Recommendations Continue acute care therapy;Home with 24 hr supervision/assist (anticipate return home w/ continued mobility progress) Maria Victoria Burdick MD - 12/11/2013 10:10 AM PDTFormatting of this note might be different from the or iginal. Progress Notes by Maria Victoria Zee MD at 12/11/13 1010 Author: Maria Victoria Zee MD Service: Nephrology Author Type: Physician Filed: 12/11/13 1025 Date of Service: 12/11/13 1010 Status: Signed Petroleum Engineer: Maria Victoria Zee MD (Physician) PCP : CANDICE VALDES LOS: 3 days Tamiko Crockett is a 83 y.o. female followed for volume management/renal function monitoring s/ p CABG. Significant PMH of: CAD s/p CABG with Dr. Celis 12/09/13 MADE[place] 09/2013 when admitted to [facility] with peak creatinine of 3 (baseline noted to be 0.9 at that time). (seen by Dr. Monteiro in office following initial evaluation at [facility] 09/2013). HTN DM2 Systolic CHF (historically on losartan, torsemide, digoxin, coreg). Prior Hospitalizations/ED visits: 09/2013 at [facility] 11/2013 at [facility] Interval history: Tamiko Crockett indicated 'having a lot of pain' today. Overnight events: No fever, chills sweats. No nausea, vomiting or diarrhea. No shortness or breath, but with + chest discomfort and cough. ROS: As in History of Present Illness. 7 area ROS was done and was otherwise negative. Examination: APPEARANCE: Tamiko Crockett is alert, awake, oriented sitting up in chair. VITALS: Reviewed as listed. HEENT: Non-icteric sclera. No JVD. Right IJ central catheter. LUNGS: Scattered rales at bases. HEART: Midline scar + S1 soft, no pericardial rub .No murmur.Mediastinal drain + ABDOMEN: Soft, no tenderness. Bowel sounds present. EXTREMITIES: Minimal LE edema. Peripheral pulses not palpable. Right leg in bandage. SKIN: Warm to touch. No rash or ecchymosis. NEUROLOGIC: Fluent speech, alert, [place], oriented., gait not tested.. PSYCH: Pleasant demeanor. The following portions of the patient's history were reviewed and updated as appropriate: l aboratory data, radiologic studies, allergies, current medications, and problem list. Past m edical, surgical, social, and family history was also reviewed. Past history summarized as a silvia. Scheduled Medications Reviewed. Continuous Infusions Reviewed. Vital Signs: BP 108/53 | Pulse 73 | Temp(Src) 99 F (37.2 C) (Bladder) | Resp 17 | Ht 1.675 m (5' 5.9 5") | Wt 76.5 kg (168 lb 10.4 oz) | BMI 27.27 kg/m2 | SpO2 95% | ? No I&O Detailed Table: I/O last 3 completed shifts: In: 8520.2 [P.O.:1520; I.V.:5310.9; IV Piggyback:1689.3] Out: 3276 [Urine:2286; Chest Tube:990] Weight change: 8.2 kg (18 lb 1.2 oz) Hemodynamics Last 24hrs: Assessment and Recommendations: Ms. Crockett is a 83 y.o. female patient with nonoliguric CKD Stage 3 likely secondary to vasc ular disease with minimal proteinuria baseline serum creatinine 1 to 1.2 mg/dL from 2013. Kidney function stable s/p CABG. UA 10/01/13 Minimal proteinuria. Renal USG 09/2013 Seen by myself. Bilateral renal cysts (no hydronephrosis). Systolic CHF: CAD s/p CABG HTN DM2: Acute blood loss anemia: Hyponatremia: 2 D echo 09/2013 1. Dilated Cardiomyopathy. LVEDd 59mm, severe global hypokinesis, Grade 3 diastolic abnorma lity, LVEF <20%.. Moderate Pulmonary HTN, est systolic PAP 52-57mmHg. Lab data evaluation: Lab Results Component Value Date BUN 11 12/11/2013 CREATININE 0.77 12/11/2013 EGFR >60 12/11/2013 NA 133* 12/11/2013 K 4.7 12/11/2013 CL 111* 12/11/2013 CO2 18* 12/11/2013 CA 7.5* 12/11/2013 PHOS 3.6 12/09/2013 MG 2.2 12/11/2013 ALB 3.4 12/09/2013 HGB 8.1* 12/11/2013 Component Value Date/Time CREATININE 0.77 12/11/2013 0315 CREATININE 1.02* 12/10/2013 0217 CREATININE 1.01* 12/09/2013 1313 CREATININE 1.20* 12/09/2013 0330 CREATININE 1.24* 12/08/2013 2103 CREATININE 1.08* 12/08/2013 1340 CREATININE 1.35 10/17/2013 1645 CREATININE 1.63* 10/10/2013 1605 CREATININE 1.37* 10/06/2013 0433 CREATININE 1.61* 10/05/2013 0410 12/11/13 Seen with "Alfredo". Assessment: Kidney function at baseline. Creatinine below baseline with hydration. Nonoliguric. Pressor dependent at this time. Also on IVF. Respiratory function stable (recovered from narcotic induced respiratory depression 12/09). Clinically close to euvolemic with no lower extremity edema, JVD, pleural effusion, rale s, orthopnea. PNa, PK, OK. No acidosis/alkalosis. Mild hyponatremia noted with pain. PK OK. Low CO2 likely reflective of respiratory alkalosis with pain. Acute blood loss anemia s/p CABG. Marginally worse. Noted minimal leucocytosis, stable. Noted mild thrombocytopenia, minimally worse. No overt bleeding. CXR with left pleural effusion and/or atelectasis. Recommendations: Continue pressor support and cautious hydration for now. Keep MAP more than 70 mmHg for now at all times. Continue metoprolol for now. Eventually would benefit from TORIN/ARB. Once out of shock w ould also possibly need to resume diuretic and/or digoxin. 2 gm Na, 2 gm K diet. No IV contrast studies. No NSAIDS/JEONG 2 inhibitors, Aluminum/magnesium containing antacids, magnesium/phosphate con taining enemas. Strict I/O Daily CMP (including Mg, PO4). MARIA VICTORIA ZEE MD 12/11/2013 Seen earlier in the day and charting completed later after rounds. Dictation software, [employer], used which may contain error for similar sounding words. Personal communication requested for any clarification. Prognosis guarded in view of multiple comorbid illnesses and CAD s/p CABG and severe systol ic dysfunction. onversion Transactio n, Provider Unknown - 12/11/2013 9:00 AM PDT Therapy Progress Note by Jose Hernandez PT at 12/11/13 09 Author: Jose Hernandez PT Service: (none) Author Type: Physical Therapist Filed: 12/11/13 0953 Date of Service: 12/11/13899 Status: Signed Petroleum Engineer: Jose Hernandez PT (Physical Therapist) 12/11/13 09 PT Last Visit PT Received On 12/11/13 Reason for Treatment Cardiac Requires PT Follow Up Yes Follow up PT Only? Yes Assistance Required 1 person;2 person Precautions Cardiac Precautions Sternal Other Comments Comments Spoke to OLGA Dhaliwal. Pt. being allowed to have therapeutic rest until about noon. W ill return at this time and assess pt.'s mobility and attempt to increase ambulatory activit y as appropriate John Heller PA - 12/11/2013 8:47 AM PDTFormatting of this note might be different from yoon sanchez original. Progress Notes by John Bass PA-C at 12/11/13 0847 Author: John Bass PA-C Service: (none) Author Type: Physician Top Precipitator Operator Helper - Cert ified Filed: 12/11/13849 Date of Service: 12/11/13846 Status: Attested Petroleum Engineer: John Bass PA-C (Physician Top Precipitator Operator Helper - Certified) Cosigner: Niraj mathews MD at 12/11/13900 Attestation signed by Niraj Celis MD at 12/11/13900 Patient was seen, examined, labs, x-rays and treatment plan were reviewed. [facility] Service: Cardiothoracic Surgery Progress Note ROOM: Hospital Day: LOS: 3 days Post-Op Day: 2 Day Post-Op Surgery/Procedure: Procedure(s) (LRB): CABG - CELSO (N/A) STERNOTOMY INTERNAL MAMMARY ARTERIAL HARVEST (Left) VEIN - ENDOVASCULAR VEIN HARVEST (Right) SUBJECTIVE Events Overnight: Patient HD stable overnight on 110 NGUYỄN this AM. Had 3 episodes of h ypotension with ambulation/movement yesterday. Complains of no sleep secondary to pain. Aler t and oriented. Patient Summary Overnight: - Urine Output ~784cc overnight. - Chest tube in place: 300ml output overnight, no airleak noted. Scheduled Medications albuterol 6 puff Ventilator Q4H aspirin 324 mg Per NG tube Nightly Or aspirin 325 mg Oral Nightly Or aspirin 300 mg Rectal Nightly docusate sodium 100 mg Oral BID famotidine 20 mg Oral Daily Or famotidine 20 mg Intravenous Daily insulin aspart 0-15 Units Subcutaneous TID AC insulin aspart 0-15 Units Subcutaneous Nightly insulin aspart 8 Units Subcutaneous TID AC insulin detemir 29 Units Subcutaneous Nightly magnesium hydroxide 30 mL Oral Daily metoprolol 12.5 mg Oral BID Continuous Infusions amiodarone infusion dexmedetomidine in NS Stopped (12/09/13 1340) dextrose 5 % and 0.45 % NaCl Stopped (12/10/13 1724) EPINEPHrine in D5W 32 mcg/mL Stopped (12/10/13 0700) nitroGLYCERIN in D5W Stopped (12/10/13 0700) norepinephrine in D5W 64 mcg/mL phenylephrine in D5W 320 mcg/mL 90 mcg/min (12/11/13 0725) sodium chloride (IV) 30 mL/hr at 12/10/13 1724 OBJECTIVE Vital Signs: BP 106/51 | Pulse 90 | Temp(Src) 98.5 F (36.9 C) (Bladder) | Resp 20 | Ht 1.675 m (5' 5 .95") | Wt 76.5 kg (168 lb 10.4 oz) | BMI 27.27 kg/m2 | SpO2 94% | ? No Physical Exam: Physical Exam: GENERAL: A&Ox 3, in no acute distress. NEURO: No facial asymmetry, speech normal and non pressured. Normal range of motion in all extremities HEENT: PERRLA, EOMI; Sclerae clear, nonicteric; Oral Mucosa moist and pink with no ulcerati ons/lesions. NECK: No JVD noted, carotid upstrokes brisk without bruits. No thyromegaly. HEART: distant heart sounds. RRR with normal S1 and S2 heart sounds. No murmur, rub, heave, or gallop noted. LUNGS: diminished. Lungs are coarse to auscultation without wheezes, rhonchi, rales. ABDOMEN: Quiet. Soft, nondistended, nontender to palpation with no notable masses. EXTREMITIES: trace edema; warm Incision: clean, dry, and intact. No erythema, discharge, or warmth noted around the incisi on site. Data Recent Labs Lab 12/11/1331412/10/13216 WBC 11.9* 12.8* RBC 2.60* 2.99* HGB 8.1* 9.7* HCT 25.1* 28.6* MCV 96.3 95.5 MCH 31.0 32.3 MCHC 32.2 33.8 RDW 45.9 46.4 PLT 80* 118* MPV 8.9 8.5 DIFFTYPE AUTOMATED AUTOMATED Recent Labs Lab 12/11/1331412/10/13 0851 12/10/13216 NA 133* -- 137 K 4.7 4.2 4.3 CL 111* -- 113* CO2 18* -- 22* ANIONGAP 9 -- 6 GLUF 173* -- 116* BUN 11 -- 12 CREATININE 0.77 -- 1.02* BCR 14 -- 12 CA 7.5* -- 7.9* EGFR >60 -- 55* PROBLEM LIST Principal Problem: Non-ST elevated myocardial infarction (non-STEMI) Active Problems: Essential hypertension, benign DM (diabetes mellitus) CHF (congestive heart failure) Ischemic cardiomyopathy CAD (coronary artery disease) Hypotension, unspecified Cardiomyopathy Hyperlipidemia Renal insufficiency ASSESSMENT & PLAN Patient is HD stable on 110 NGUYỄN s/p CABGx5 - Wean NGUYỄN as tolerated - Continue to hold all narcotic pain medications for now - Increase ambulation, PT/OT - CKD: Baseline CKD, Renal function at baseline, good UOP. Dr. Zee's input is appreciate d. - Bhavesh Ayala for strict I&Os. - Benadryl prn for sleep Continue ICU Status for now Code Status: Full Code The patient has been seen and the plan discussed with the attending provider, Dr. Vimal Bass PA-C 12/11/2013 onversio n Transaction, Provider Unknown - 12/10/2013 3:15 PM PDTFormatting of this note might be di fferent from the original. Therapy Progress Note by Jose Hernandez PT at 12/10/13 1515 Author: Jose Hernandez PT Service: (none) Author Type: Physical Therapist Filed: 12/10/131915 Date of Service: 12/10/13 1515 Status: Signed Petroleum Engineer: Jose Hernandez PT (Physical Therapist) 12/10/13 1515 PT Last Visit PT Received On 12/10/13 Reason for Treatment Cardiac Requires PT Follow Up Yes Follow up PT Only? Yes Assistance Required 1 person;2 person Precautions Cardiac Precautions Sternal Other Comments Comments Pt.'s BP remains appear stable 120/70 pre activity. Pt. once again assisted into standing and performed ambulation in place for increased duration of 90-120 seconds. Pt. th en ambulated to the chair. Pt. denied syncope...appears to have normal BP response while st anding. Upon assistance into chair, BP again has a delayed hypotensive response 76/50 (not as low as this a.m.) Pt. remains AOx4 and exhibits excellent motor strength. Will continue to gently increase activity and monitor BP closely. Cognition Overall Cognitive Status WFL Orientation Level Oriented Bed Mobility Supine to Sit Max assist (BLEs OOB & trunk to upright) Scooting Maximal assist Mobility Ambulation Assistance Moderate assist;X2 Maximal Ambulation Distance (feet) 5 (+ ambulation in place 90-120 seconds) Total Ambulation Distance (feet) 5 Distance limited by? Therapist/staff discretion;Patient's ability Pattern Right swing foot passes stance foot;Left swing foot passes stance foot;Right step h eight adequate;Left step height adequate Assistive Device None Activity Tolerance Activity Tolerance Patient tolerated treatment without report of fatigue;Treatment limited secondary to medical complications Nurse Made Aware yes Plan Treatment/Interventions Continue per Primary PT POC Progress Progressing toward goals Recommendation Recommendations Continue acute care therapy Recommendation Comments Anticipate pt. will be able to d/c home w/ family support from stre ngth/mobility standpoint onver yajaira Transaction, Provider Unknown - 12/10/2013 12:07 PM PDT Progress Notes by Isra Villasenor RN at 12/10/13 1207 Author: Isra Villasenor RN Service: (none) Author Type: Registered Nurse Filed: 12/10/13 1211 Date of Service: 12/10/13 1207 Status: Signed Petroleum Engineer: Isra Villasenor RN (Registered Nurse) Twice today pt has demonstrated delayed othrostatic hypotension drops from 117 SBP to 60 SB P pt did NOT loose consciousness either episode; first time was getting back to bed and seco nd time while walking in place with PT and didn't occur until after pt had sat down. Both t imes pt required 250ml fluid bolus and temporary increase of NEOsynephrine gtt. onver yajaira Transaction, Provider Unknown - 12/10/2013 11:10 AM PDT Therapy Progress Note by Jose Hernandez PT at 12/10/13 1110 Author: Jose Hernandez PT Service: (none) Author Type: Physical Therapist Filed: 12/10/13 191 Date of Service: 12/10/13 1110 Status: Signed Petroleum Engineer: Jose Hernandez, PT (Physical Therapist) 12/10/13 1110 PT Last Visit PT Received On 12/10/13 Reason for Treatment Cardiac Requires PT Follow Up Yes Follow up PT Only? Yes PT Eval/Reassessment Date 12/10/13 Assistance Required 1 person;2 person Precautions Other Precautions (fall precautions at this time--delayed ortho. hypotension) Cardiac Precautions Sternal Plan Treatment/Interventions Cardiac protocol PT Frequency Twice a day;Once per day Care Duration (# of days) 7 # of days Home Environment Type of Home Home one story Home Exterior Layout 7-10 steps Home Interior Layout Lives on main level with bedroom/bathroom Home Equipment Walker 4 wheeled Recommendation Recommendations Continue acute care therapy (TBD, pending medical course) Prior Function Level of [place] Independent with functional mobility;Independent with ADLs;Independe nt with IADLs Lives With Spouse Receives Help From Family ADL Assistance Independent Home ADL's Independent RUE Assessment RUE Assessment WFL LUE Assessment LUE Assessment WFL RLE Assessment RLE Assessment WFL LLE Assessment LLE Assessment WFL Cognition Overall Cognitive Status WFL Orientation Level Oriented Sensation Light Touch No apparent deficits Perception Inattention/Neglect Appears intact 12/10/13 1110 PT Last Visit PT Received On 12/10/13 Reason for Treatment Cardiac Requires PT Follow Up Yes Follow up PT Only? Yes PT Eval/Reassessment Date 12/10/13 Assistance Required 1 person;2 person Precautions Cardiac Precautions Sternal Other Comments Comments Pt. is s/p CABGx5. Pt. reports 8/10 pain in chest tube insertion sites. Pt. is A Ox4. Exhibits good extremity strength throughout. Pt. was assisted into sitting w/ maxA an d allowed to sit for several minutes. BP appears to be stable (SBP 110-120s). Pt. is able to stand and ambulate in place for approx. 30 seconds, then able to amb. to the chair and am b. in place again briefly. Pt. appears to tolerate well and denies syncope. Upon assistanc e into chair, BP found to drop (in a delayed fashion) with SBP in the low 70s and 60s. RN C had present and increasing fluid bolus and ordered. Pt.'s HR remained quite stable in the l ow to mid 70s. Cognition Overall Cognitive Status WFL Orientation Level Oriented Bed Mobility Supine to Sit Max assist (BLEs OOB & trunk to upright) Scooting Maximal assist Transfers Sit to/from Stand Moderate assist (to arise OR lower);x 2 person Bed to/from Chair Moderate assist (to arise OR lower);x 2 person Mobility Ambulation Assistance Moderate assist;X1;X2 Maximal Ambulation Distance (feet) 5 (in addition to brief bouts of ambulation in place.) Total Ambulation Distance (feet) 5 Distance limited by? Patient's ability;Therapist/staff discretion Pattern Right swing foot passes stance foot;Left swing foot passes stance foot;Right step h eight adequate;Left step height adequate;Step to Assistive Device None Balance Balance (steady/midline sitting and standing balance) Activity Tolerance Activity Tolerance Treatment limited secondary to medical complications Nurse Made Aware yes Plan Treatment/Interventions Cardiac protocol PT Frequency Twice a day;Once per day Care Duration (# of days) 7 # of days Recommendation Recommendations Continue acute care therapy (TBD, pending medical course) Aletha Polk OTR/L - 12/10/2013 10:40 AM PDT Therapy Progress Note by AIRAM Land at 12/10/13 1040 Author: AIRAM Land Service: (none) Author Type: Occupational Therapist Filed: 12/10/13 1110 Date of Service: 12/10/13 1040 Status: Signed Petroleum Engineer: AIRAM Land (Occupational Therapist) 12/10/13 1040 Precautions Cardiac Precautions Sternal (pt educated to precautions unable to recall ) Other Precautions (no hx to falls in the home) Home Environment Type of Home Home one story Home Exterior Layout 7-10 steps;Rail on L ascending (7 steps to entry) Home Interior Layout Lives on main level with bedroom/bathroom;W/C accessible;Walker access ible Bathroom Shower/Tub Shower unit with threshold Bathroom Toilet Standard Bathroom Equipment Shower chair;Grab bars in shower/bath;Grab bars outside of shower/bath Home Equipment Walker 4 wheeled Additional Comments The spouse is without concern to return to home Prior Function Level of [place] Independent with functional mobility;Independent with ADLs;Modified independent with IADLs;Household distance Lives With Spouse Receives Help From Family (daughters who live in the area) ADL Assistance Independent Home ADL's Need assistance Pain Screening Currently in Pain No/denies Vision-Basic Assessment Current Vision Reading glasses;Wears glasses Tracking Able to track stimulus in all quads without difficulty Acuity Able to read clock/calendar on wall without difficulty Vision - Complex Assessment Additional Comments No changes in vision since surgery Cognition Overall Cognitive Status WFL Orientation Level Oriented Comments 4/4 Sensation Light Touch No apparent deficits Sharp/Dull No apparent deficits Stereognosis No apparent deficit Deep Pressure No apparent deficit Proprioception Proprioception No apparent deficit Perception Inattention/Neglect Appears intact Initiation Appears intact Motor Planning Appears intact Perseveration Not present RUE Assessment RUE Assessment WFL (within precautions) LUE Assessment LUE Assessment WFL (within precautions) Hand Function Gross Grasp Impaired (with increased edema on the left hand) Impaired Gross Grasp Maintain hold with dominant hand;Unable to hold objects in non-dominan t hand Coordination Impaired (secondary to edema) Assessment Assessment Decreased ADL status;Decreased UE strength;Decreased endurance Prognosis Fair Goal Formulation Patient;Family Further Evaluation Goals Patient Will Tolerate Further ADL Treatment Within 1-2 sessions Functional Transfer Goals Pt Will Perform All Functional Transfers With mod assist;Maintaining sternal precautions Arm Goals Pt Will Perform AROM B UE;2 sets;10 reps (to decrease edema) 12/10/13 1040 Further Evaluation Goals Patient Will Tolerate Further ADL Treatment Within 1-2 sessions Functional Transfer Goals Pt Will Perform All Functional Transfers With mod assist;Maintaining sternal precautions Arm Goals Pt Will Perform AROM B UE;2 sets;10 reps (to decrease edema) Plan Treatment Interventions ADL retraining;Functional transfer training;Functional dynamic acti vities;UE strengthening;AROM;PROM;Endurance training;Cognitive reorientation;Patient/Family training Progress (initiated OT POC) OT Frequency QD;BID;5x/wk;2-3 weeks therapy duration Requires OT Follow Up Yes Recommendation Recommendation Rehab consult Education Completed: Education Topic: OT Role in care, POC, goals for intervention, sternal precautions Completed with: Patient, Spouse Completed by: Verbal Education, Demonstration Response to Education: Stated Understanding, Reinforcement Necessary for Education Under standing Occupational Therapy Plan: Continue OT treatment per POC The following recommendations are made for d/c planning at this time: IPR Barriers to d/c at this time include: Home environment Physical deficits impacting functional independence Self-care deficits impacting functional independence Patient in bed resting when completed with therapy. Spouse of the patient present in room. Call light/room phone within reach of the patient. No needs at time of termination of the rapy session. RN aware of tx and patient's performance in therapy session. ALETHA COLES OTR/L 12/10/2013 Marcio Heller PA - 12/10/2013 7:34 AM PDTFormatting of this note might be different from the donte garland Progress Notes by John Bass PA-C at 12/10/1334 Author: John Bass PA-C Service: (none) Author Type: Physician Top Precipitator Operator Helper - Cert ified Filed: 12/10/1355 Date of Service: 12/10/13733 Status: Attested Petroleum Engineer: John Bass PA-C (Physician Top Precipitator Operator Helper - Certified) Cosigner: Niraj mathews MD at 12/10/13858 Attestation signed by Niraj Celis MD at 12/10/13858 Patient was seen, examined, labs, x-rays and treatment plan were reviewed. [facility]: Cardiothoracic Surgery Progress Note ROOM: Hospital Day: LOS: 2 days Post-Op Day: 1 Day Post-Op Surgery/Procedure: Procedure(s) (LRB): CABG - CELSO (N/A) STERNOTOMY INTERNAL MAMMARY ARTERIAL HARVEST (Left) VEIN - ENDOVASCULAR VEIN HARVEST (Right) SUBJECTIVE Events Overnight: Patient extubated yesterday, code event following dilaudid administ ration noted. HD stable this AM on 120 NGUYỄN, on 4L NC. NSR with LBBB noted. Neuro intact. Alert and oriented, does not recall yesterdays event. Complaining of pain at left pleural t ube. Patient Summary Overnight: - Urine Output ~868cc overnight. - Chest tube in place: 360ml output overnight, no airleak noted. Scheduled Medications albuterol 6 puff Ventilator Q4H aspirin 324 mg Per NG tube Nightly Or aspirin 325 mg Oral Nightly Or aspirin 300 mg Rectal Nightly ceFAZolin 2 g Intravenous Q8H docusate sodium 100 mg Oral BID famotidine 20 mg Oral Daily Or famotidine 20 mg Intravenous Daily lip moisturizer magnesium hydroxide 30 mL Oral Daily metoprolol 12.5 mg Oral BID pneumococcal 23-valent vaccine 0.5 mL Intramuscular Once Immunization Continuous Infusions amiodarone infusion dexmedetomidine in NS Stopped (12/09/13 1340) dextrose 5 % and 0.45 % NaCl 62 mL/hr at 12/10/13 0617 EPINEPHrine in D5W 32 mcg/mL 1 mcg/min (12/09/13 1735) insulin regular 1 unit/mL 4 Units/hr (12/09/13 1300) nitroGLYCERIN in D5W 5 mcg/min (12/09/13 1545) norepinephrine in D5W 64 mcg/mL phenylephrine in D5W 320 mcg/mL 60 mcg/min (12/09/13 1705) sodium chloride (IV) 30 mL/hr at 12/09/13 1638 OBJECTIVE Vital Signs: BP 92/54 | Pulse 84 | Temp(Src) 99.3 F (37.4 C) (Blood) | Resp 20 | Ht 1.675 m (5' 5.95 ") | Wt 68.3 kg (150 lb 9.2 oz) | BMI 24.34 kg/m2 | SpO2 95% | ? No Physical Exam: Physical Exam: GENERAL: A&Ox 3, in no acute distress. NEURO: No facial asymmetry, speech normal and non pressured. Normal range of motion in all extremities HEENT: PERRLA, EOMI; Sclerae clear, nonicteric; Oral Mucosa moist and pink with no ulcerati ons/lesions. NECK: No JVD noted, carotid upstrokes brisk without bruits. No thyromegaly. HEART: distant heart sounds. RRR with normal S1 and S2 heart sounds. No murmur, rub, heave, or gallop noted. LUNGS: diminished. Lungs are coarse to auscultation without wheezes, rhonchi, rales. ABDOMEN: Quiet. Soft, nondistended, nontender to palpation with no notable masses. EXTREMITIES: trace edema; warm Incision: clean, dry, and intact. No erythema, discharge, or warmth noted around the incisi on site. Data Recent Labs Lab 12/10/13 0217 12/09/13 1317 12/09/13 1313 WBC 12.8* -- 18.1* RBC 2.99* -- 2.82* HGB 9.7* 7.8* 9.1* HCT 28.6* 23* 26.4* MCV 95.5 -- 93.6 MCH 32.3 -- 32.1 MCHC 33.8 -- 34.3 RDW 46.4 -- 43.3 PLT 118* -- 132* MPV 8.5 -- 6.9 DIFFTYPE AUTOMATED -- AUTOMATED Recent Labs Lab 12/10/13 0217 12/09/13 2324 12/09/13 1313 NA 137 -- -- 146* K 4.3 4.6 < > 3.9 CL 113* -- -- 117* CO2 22* -- -- 22* ANIONGAP 6 -- -- 11 GLUF 116* -- -- 112* BUN 12 -- -- 16 CREATININE 1.02* -- -- 1.01* BCR 12 -- -- 16 CA 7.9* -- -- 8.3* EGFR 55* -- -- 56* < > = values in this interval not displayed. PROBLEM LIST Principal Problem: Non-ST elevated myocardial infarction (non-STEMI) Active Problems: Essential hypertension, benign DM (diabetes mellitus) Ischemic cardiomyopathy CAD (coronary artery disease) Hyperlipidemia ASSESSMENT & PLAN Patient is HD stable on 120 NGUYỄN s/p CABGx5 - Wean NGUYỄN as tolerated - D/C [place] - D/C all narcotic pain medications - Increase ambulation, PT/OT - CKD: Baseline CKD, sees Dr. Monteiro. Renal function at baseline, good UOP. Strict I&Os. Continue ICU Status for now Code Status: Full Code The patient has been seen and the plan discussed with the attending provider, Dr. Vimal Bass PA-C 12/10/2013 onversio n Transaction, Provider Unknown - 12/09/2013 4:25 PM PDTFormatting of this note might be di fferent from the original. Progress Notes by Erica Marin at 12/09/13 7503 Author: Erica Marin Service: (none) Author Type: Filed: 12/09/13 8928 Date of Service: 12/09/13 Status: Signed Petroleum Engineer: Erica Marin () responded to Code Blue. Family standing outside room. Daughter asked if I could go to family waiting room and pass on info. Several family members thought a hat finishing materials preparer would be n eeded. Aftertalking to daughter it was determined that pt has been given sacraments and chap santi services would be sufficient when/if needed. I assured them a student development advisor would be availab le. Chaplain Erica Marin onver yajaira Transaction, Provider Unknown - 12/09/2013 1:22 PM PDT Progress Notes by Rosa Oakley RPH at 12/09/13 1322 Author: Rosa Oakley RPH Service: (none) Author Type: Pharmacist Filed: 12/09/13 1322 Date of Service: 12/09/13 1322 Status: Signed Petroleum Engineer: Rosa Oakley RPH (Pharmacist) Renal Dosing Monitoring: CREATININE: 1.2 mg/dL ABNORMAL (12/09/13 0330) Estimated creatinine clearance - 33.8 mL/min Adjusting Famotidine 20 mg IV/PO BID to Famotidine 20 mg IV/PO Daily due to CrCl < 50 mL/mi n No other changes needed at this time. Pharmacist: Rosa Oakley 12/09/2013 1:16 PM onver yajaira Transaction, Provider Unknown - 12/09/2013 10:04 AM PDT Progress Notes by Sudha Keller at 12/09/13 1004 Author: Sudha Keller Service: (none) Author Type: Food Checkers And Cashiers Supervisor Filed: 12/09/13 1021 Date of Service: 12/09/13 1004 Status: Signed Petroleum Engineer: Sudha Keller () Met with Pt and her Alfredo and several of their daughters pre surgery for prayer and support. I gave the on pump report as I received it to the family in the ICU waiting room Chaplain Sudha Keller onver yajaira Transaction, Provider Unknown - 12/09/2013 4:04 AM PDT Progress Notes by Lety Armijo RN at 12/09/13403 Author: Lety Armijo RN Service: (none) Author Type: Registered Nurse Filed: 12/09/13404 Date of Service: 12/09/13403 Status: Signed Petroleum Engineer: Lety Armijo RN (Registered Nurse) APTT is 43 and therapeutic. No titration to Heparin needed. onver yajaira Transaction, Provider Unknown - 12/09/2013 1:55 AM PDT Progress Notes by Eitan Garcia RPH at 12/09/13154 Author: Eitan Garcia RPH Service: (none) Author Type: Pharmacist Filed: 12/09/13154 Date of Service: 12/09/13154 Status: Signed Petroleum Engineer: Eitan Garcia RPH (Pharmacist) Note ccl 32.7ml/min meds reviewed pharmacy will follow rdc 0155 onver yajaira Transaction, Provider Unknown - 12/08/2013 9:15 PM PDT Progress Notes by Lety Armijo RN at 12/08/132114 Author: Lety Armijo RN Service: (none) Author Type: Registered Nurse Filed: 12/08/132241 Date of Service: 12/08/132114 Status: Signed Petroleum Engineer: Lety Armijo RN (Registered Nurse) APTT 44 and is therapeutic. No changes to Heparin gtt. Next APTT is 0300. VSS. Pt denies ch est pain. All pre-op cardiac teaching has been done. Pt and family deny questions at this ti me. Will continue to monitor closely. onver yajaiar Transaction, Provider Unknown - 12/08/2013 7:15 PM PDT Progress Notes by Sudha Keller at 12/08/135 Author: Sudha Keller Service: (none) Author Type: Filed: 12/08/131941 Date of Service: 12/08/131914 Status: Signed Petroleum Engineer: Sudha Keller () Met Pt with two of her eight children, Janice and Rivka ([phone]) were at the bedside as she left for ultrasound from ER. Pts Alfredo is also here. I gave the daughters the basic outline of surgery day; they were glad to here that there would be two reports given during the surgery. They are a Sikh family and have asked for anointing of the sick for Tamiko. I will make those arrangements if possible. Chaplain Sudha Keller onver yajaira Ponce, Provider Unknown - 12/08/2013 7:10 PM PDT Case Management by JAIMEE Rodriguez at 12/08/131909 Author: JAIMEE Rodriguez Service: (none) Author Type: Manager Telecom Filed: 12/08/131912 Date of Service: 12/08/131909 Status: Addendum Petroleum Engineer: JAIMEE Rodriguez (Manager Telecom) Related Notes: Original Note by JAIMEE Rodriguez (Manager Telecom) filed at 12/08/13191112/08/131899 Discharge Planning Evaluation Admitting Diagnosis NSTEMI Readmission No Living Arrangements Spouse/significant other (Alfredo Crockett) Support Systems Children (Geno Kendall [phone]) Type of Residence Private residence House type House-1 story Steps to enter 7 Independent with ADL's Yes (in the last three months, needed assistance) Independent with Mobility Yes (owns a 4WW) Home Care Services No Mental Status Oriented Resources Transportation issues No Prescription Plan Yes (Medicare Part D) Name of Pharmacy [facility] in [place] Previous home health equipment No Vascular access device No Ostomy/Drains/Appliances Yes (Defibrillator Vest) Anticipated Disposition Facility Type senior living facility;Other (Comment) (if well enought, she can return home) Assisted Facility Other (comment) ([facility]) Met with: patient, her and daughter and discussed discharge planning, Pt is a 83 y. o., female Patient's PCP is: CANDICE VALDES Patient's insurance: Medicare IP-OP and [employer] Coverage concerns: No current concerns Medication coverage/concerns: Rx coverage [facility] Bedside Delivery: No Community resources utilized / needed: TBD Assistance in transportation: Spouse and/or family member Identification of any specific education / training: TBD Barriers to Discharge / Alternative housing needed: could be considering a SNF in [place] . Anticipated DCP: SNF or Return home with Ellen Marks [facility] Dayana rust in this encounter Plan of Treatment +--------+ + + + + | Date | Type | Specialty | Care Team | Description | +--------+ + + + + | 03/09/ | Office | Cardiology | [place], | | 2018 | Visit | | MD Lucila WIGGINS | | | | | | [place] | | | | | | [id number] | | | | | | | [...] [place] | | | | | | [id number] | | | | | | | | +--------+ + + + + documented as of this encounter Procedures + +--------+ + + + | Procedure Name | Priori | Date/Time | Associated Diagnosis | Comments | | | ty | | | | + +--------+ + + + | POC GLUCOSE | Routin | 12/16/2013 | | Results for this | | | e | 5:18 AM | | procedure are in the | | | | PDT | | results section. | + +--------+ + + + | MAGNESIUM | Routin | 12/16/2013 | | Results for this | | | e | 3:51 AM | | procedure are in the | | | | PDT | | results section. | + +--------+ + + + | BASIC METABOLIC | Routin | 12/16/2013 | | Results for this | | PANEL | e | 3:51 AM | | procedure are in the | | | | PDT | | results section. | + +--------+ + + + | POC GLUCOSE | Routin | 12/15/2013 | | Results for this | | | e | 9:25 PM | | procedure are in the | | | | PDT | | results section. | + +--------+ + + + | POC GLUCOSE | Routin | 12/15/2013 | | Results for this | | | e | 4:16 PM | | procedure are in the | | | | PDT | | results section. | + +--------+ + + + | POC GLUCOSE | Routin | 12/15/2013 | | Results for this | | | e | 11:28 AM | | procedure are in the | | | | PDT | | results section. | + +--------+ + + + | XR CHEST 2 VIEWS | Routin | 12/15/2013 | | Results for this | | | e | 7:55 AM | | procedure are in the | | | | PDT | | results section. | + +--------+ + + + | POC GLUCOSE | Routin | 12/15/2013 | | Results for this | | | e | 4:01 AM | | procedure are in the | | | | PDT | | results section. | + +--------+ + + + | BASIC METABOLIC | Routin | 12/15/2013 | | Results for this | | PANEL | e | 3:40 AM | | procedure are in the | | | | PDT | | results section. | + +--------+ + + + | POC GLUCOSE | Routin | 12/14/2013 | | Results for this | | | e | 9:30 PM | | procedure are in the | | | | PDT | | results section. | + +--------+ + + + | POC GLUCOSE | Routin | 12/14/2013 | | Results for this | | | e | 4:42 PM | | procedure are in the | | | | PDT | | results section. | + +--------+ + + + | POC GLUCOSE | Routin | 12/14/2013 | | Results for this | | | e | 11:21 AM | | procedure are in the | | | | PDT | | results section. | + +--------+ + + + | URINALYSIS WITH | Routin | 12/14/2013 | | Results for this | | MICROSCOPIC IF | e | 11:00 AM | | procedure are in the | | INDICATED | | PDT | | results section. | + +--------+ + + + | URINALYSIS, | Routin | 12/14/2013 | | Results for this | | MICROSCOPIC ONLY | e | 11:00 AM | | procedure are in the | | | | PDT | | results section. | + +--------+ + + + | POC GLUCOSE | Routin | 12/14/2013 | | Results for this | | | e | 5:14 AM | | procedure are in the | | | | PDT | | results section. | + +--------+ + + + | BASIC METABOLIC | Routin | 12/14/2013 | | Results for this | | PANEL | e | 3:39 AM | | procedure are in the | | | | PDT | | results section. | + +--------+ + + + | POC GLUCOSE | Routin | 12/13/2013 | | Results for this | | | e | 9:07 PM | | procedure are in the | | | | PDT | | results section. | + +--------+ + + + | POC GLUCOSE | Routin | 12/13/2013 | | Results for this | | | e | 4:01 PM | | procedure are in the | | | | PDT | | results section. | + +--------+ + + + | POC GLUCOSE | Routin | 12/13/2013 | | Results for this | | | e | 11:41 AM | | procedure are in the | | | | PDT | | results section. | + +--------+ + + + | ECHO LIMITED | Routin | 12/13/2013 | | Results for this | | | e | 10:20 AM | | procedure are in the | | | | PDT | | results section. | + +--------+ + + + | XR CHEST 2 VIEWS | Routin | 12/13/2013 | | Results for this | | | e | 8:22 AM | | procedure are in the | | | | PDT | | results section. | + +--------+ + + + | POC GLUCOSE | Routin | 12/13/2013 | | Results for this | | | e | 5:19 AM | | procedure are in the | | | | PDT | | results section. | + +--------+ + + + | CBC NO DIFFERENTIAL | Routin | 12/13/2013 | | Results for this | | | e | 3:30 AM | | procedure are in the | | | | PDT | | results section. | + +--------+ + + + | MAGNESIUM | Routin | 12/13/2013 | | Results for this | | | e | 3:30 AM | | procedure are in the | | | | PDT | | results section. | + +--------+ + + + | BASIC METABOLIC | Routin | 12/13/2013 | | Results for this | | PANEL | e | 3:30 AM | | procedure are in the | | | | PDT | | results section. | + +--------+ + + + | POC GLUCOSE | Routin | 12/12/2013 | | Results for this | | | e | 9:46 PM | | procedure are in the | | | | PDT | | results section. | + +--------+ + + + | POTASSIUM | Routin | 12/12/2013 | | Results for this | | | e | 6:59 PM | | procedure are in the | | | | PDT | | results section. | + +--------+ + + + | POC GLUCOSE | Routin | 12/12/2013 | | Results for this | | | e | 4:32 PM | | procedure are in the | | | | PDT | | results section. | + +--------+ + + + | POC GLUCOSE | Routin | 12/12/2013 | | Results for this | | | e | 11:48 AM | | procedure are in the | | | | PDT | | results section. | + +--------+ + + + | POC GLUCOSE | Routin | 12/12/2013 | | Results for this | | | e | 6:53 AM | | procedure are in the | | | | PDT | | results section. | + +--------+ + + + | XR CHEST 1 VIEW | Routin | 12/12/2013 | | Results for this | | | e | 5:46 AM | | procedure are in the | | | | PDT | | results section. | + +--------+ + + + | EXTERNAL LAB: CBC | Routin | 12/12/2013 | | Results for this | | | e | 3:55 AM | | procedure are in the | | | | PDT | | results section. | + +--------+ + + + | MAGNESIUM | Routin | 12/12/2013 | | Results for this | | | e | 3:55 AM | | procedure are in the | | | | PDT | | results section. | + +--------+ + + + | BASIC METABOLIC | Routin | 12/12/2013 | | Results for this | | PANEL | e | 3:55 AM | | procedure are in the | | | | PDT | | results section. | + +--------+ + + + | POC GLUCOSE | Routin | 12/11/2013 | | Results for this | | | e | 9:32 PM | | procedure are in the | | | | PDT | | results section. | + +--------+ + + + | POC GLUCOSE | Routin | 12/11/2013 | | Results for this | | | e | 4:44 PM | | procedure are in the | | | | PDT | | results section. | + +--------+ + + + | POC GLUCOSE | Routin | 12/11/2013 | | Results for this | | | e | 11:51 AM | | procedure are in the | | | | PDT | | results section. | + +--------+ + + + | POC GLUCOSE | Routin | 12/11/2013 | | Results for this | | | e | 6:51 AM | | procedure are in the | | | | PDT | | results section. | + +--------+ + + + | XR CHEST 1 VIEW | Routin | 12/11/2013 | | Results for this | | | e | 6:08 AM | | procedure are in the | | | | PDT | | results section. | + +--------+ + + + | EXTERNAL LAB: CBC | Routin | 12/11/2013 | | Results for this | | | e | 3:15 AM | | procedure are in the | | | | PDT | | results section. | + +--------+ + + + | MAGNESIUM | Routin | 12/11/2013 | | Results for this | | | e | 3:15 AM | | procedure are in the | | | | PDT | | results section. | + +--------+ + + + | BASIC METABOLIC | Routin | 12/11/2013 | | Results for this | | PANEL | e | 3:15 AM | | procedure are in the | | | | PDT | | results section. | + +--------+ + + + | POC GLUCOSE | Routin | 12/10/2013 | | Results for this | | | e | 9:42 PM | | procedure are in the | | | | PDT | | results section. | + +--------+ + + + | POC GLUCOSE | Routin | 12/10/2013 | | Results for this | | | e | 9:40 PM | | procedure are in the | | | | PDT | | results section. | + +--------+ + + + | POC GLUCOSE | Routin | 12/10/2013 | | Results for this | | | e | 5:30 PM | | procedure are in the | | | | PDT | | results section. | + +--------+ + + + | POC GLUCOSE | Routin | 12/10/2013 | | Results for this | | | e | 3:33 PM | | procedure are in the | | | | PDT | | results section. | + +--------+ + + + | POC GLUCOSE | Routin | 12/10/2013 | | Results for this | | | e | 1:46 PM | | procedure are in the | | | | PDT | | results section. | + +--------+ + + + | POC GLUCOSE | Routin | 12/10/2013 | | Results for this | | | e | 11:28 AM | | procedure are in the | | | | PDT | | results section. | + +--------+ + + + | POC GLUCOSE | Routin | 12/10/2013 | | Results for this | | | e | 10:20 AM | | procedure are in the | | | | PDT | | results section. | + +--------+ + + + | POC GLUCOSE | Routin | 12/10/2013 | | Results for this | | | e | 8:51 AM | | procedure are in the | | | | PDT | | results section. | + +--------+ + + + | POTASSIUM | Routin | 12/10/2013 | | Results for this | | | e | 8:51 AM | | procedure are in the | | | | PDT | | results section. | + +--------+ + + + | POC GLUCOSE | Routin | 12/10/2013 | | Results for this | | | e | 5:49 AM | | procedure are in the | | | | PDT | | results section. | + +--------+ + + + | XR CHEST 1 VIEW | Routin | 12/10/2013 | | Results for this | | | e | 5:46 AM | | procedure are in the | | | | PDT | | results section. | + +--------+ + + + | POC GLUCOSE | Routin | 12/10/2013 | | Results for this | | | e | 3:40 AM | | procedure are in the | | | | PDT | | results section. | + +--------+ + + + | EXTERNAL LAB: CBC | Routin | 12/10/2013 | | Results for this | | | e | 2:17 AM | | procedure are in the | | | | PDT | | results section. | + +--------+ + + + | MAGNESIUM | Routin | 12/10/2013 | | Results for this | | | e | 2:17 AM | | procedure are in the | | | | PDT | | results section. | + +--------+ + + + | HEMOGLOBIN A1C | Routin | 12/10/2013 | | Results for this | | | e | 2:17 AM | | procedure are in the | | | | PDT | | results section. | + +--------+ + + + | BASIC METABOLIC | Routin | 12/10/2013 | | Results for this | | PANEL | e | 2:17 AM | | procedure are in the | | | | PDT | | results section. | + +--------+ + + + | POC GLUCOSE | Routin | 12/10/2013 | | Results for this | | | e | 2:15 AM | | procedure are in the | | | | PDT | | results section. | + +--------+ + + + | POC GLUCOSE | Routin | 12/10/2013 | | Results for this | | | e | 1:17 AM | | procedure are in the | | | | PDT | | results section. | + +--------+ + + + | POTASSIUM | Routin | 12/09/2013 | | Results for this | | | e | 11:24 PM | | procedure are in the | | | | PDT | | results section. | + +--------+ + + + | POC GLUCOSE | Routin | 12/09/2013 | | Results for this | | | e | 11:19 PM | | procedure are in the | | | | PDT | | results section. | + +--------+ + + + | POC GLUCOSE | Routin | 12/09/2013 | | Results for this | | | e | 9:26 PM | | procedure are in the | | | | PDT | | results section. | + +--------+ + + + | POC GLUCOSE | Routin | 12/09/2013 | | Results for this | | | e | 7:28 PM | | procedure are in the | | | | PDT | | results section. | + +--------+ + + + | TROPONIN I | Routin | 12/09/2013 | | Results for this | | | e | 7:27 PM | | procedure are in the | | | | PDT | | results section. | + +--------+ + + + | CK-MB | Routin | 12/09/2013 | | Results for this | | | e | 7:27 PM | | procedure are in the | | | | PDT | | results section. | + +--------+ + + + | POTASSIUM | Routin | 12/09/2013 | | Results for this | | | e | 7:27 PM | | procedure are in the | | | | PDT | | results section. | + +--------+ + + + | CK TOTAL | Routin | 12/09/2013 | | Results for this | | | e | 7:27 PM | | procedure are in the | | | | PDT | | results section. | + +--------+ + + + | POTASSIUM | Routin | 12/09/2013 | | Results for this | | | e | 5:00 PM | | procedure are in the | | | | PDT | | results section. | + +--------+ + + + | POC GLUCOSE | Routin | 12/09/2013 | | Results for this | | | e | 4:54 PM | | procedure are in the | | | | PDT | | results section. | + +--------+ + + + | XR CHEST 1 VIEW | Routin | 12/09/2013 | | Results for this | | | e | 4:22 PM | | procedure are in the | | | | PDT | | results section. | + +--------+ + + + | POC GLUCOSE | Routin | 12/09/2013 | | Results for this | | | e | 4:00 PM | | procedure are in the | | | | PDT | | results section. | + +--------+ + + + | POC GLUCOSE | Routin | 12/09/2013 | | Results for this | | | e | 3:44 PM | | procedure are in the | | | | PDT | | results section. | + +--------+ + + + | POC GLUCOSE | Routin | 12/09/2013 | | Results for this | | | e | 2:33 PM | | procedure are in the | | | | PDT | | results section. | + +--------+ + + + | POC ISTAT, CG8, | Routin | 12/09/2013 | | Results for this | | ARTERIAL | e | 1:17 PM | | procedure are in the | | | | PDT | | results section. | + +--------+ + + + | XR CHEST 1 VIEW | Routin | 12/09/2013 | | Results for this | | | e | 1:13 PM | | procedure are in the | | | | PDT | | results section. | + +--------+ + + + | EXTERNAL LAB: CBC | Routin | 12/09/2013 | | Results for this | | | e | 1:13 PM | | procedure are in the | | | | PDT | | results section. | + +--------+ + + + | PTT | Routin | 12/09/2013 | | Results for this | | | e | 1:13 PM | | procedure are in the | | | | PDT | | results section. | + +--------+ + + + | PROTIME INR | Routin | 12/09/2013 | | Results for this | | | e | 1:13 PM | | procedure are in the | | | | PDT | | results section. | + +--------+ + + + | FIBRINOGEN | Routin | 12/09/2013 | | Results for this | | | e | 1:13 PM | | procedure are in the | | | | PDT | | results section. | + +--------+ + + + | MAGNESIUM | Routin | 12/09/2013 | | Results for this | | | e | 1:13 PM | | procedure are in the | | | | PDT | | results section. | + +--------+ + + + | CALCIUM, IONIZED | Routin | 12/09/2013 | | Results for this | | | e | 1:13 PM | | procedure are in the | | | | PDT | | results section. | + +--------+ + + + | BASIC METABOLIC | Routin | 12/09/2013 | | Results for this | | PANEL | e | 1:13 PM | | procedure are in the | | | | PDT | | results section. | + +--------+ + + + | ELLIE WILLSON, | Routin | 12/09/2013 | | Results for this | | ARTERIAL | e | 12:15 PM | | procedure are in the | | | | PDT | | results section. | + +--------+ + + + | ECHO | Routin | 12/09/2013 | | Results for this | | TRANSESOPHAGEAL(CELSO) | e | 12:14 PM | | procedure are in the | | - PERIOPERATIVE | | PDT | | results section. | + +--------+ + + + | ELLIE WILLSON, | Routin | 12/09/2013 | | Results for this | | ARTERIAL | e | 11:43 AM | | procedure are in the | | | | PDT | | results section. | + +--------+ + + + | ELLIE WILLSON, | Routin | 12/09/2013 | | Results for this | | ARTERIAL | e | 11:16 AM | | procedure are in the | | | | PDT | | results section. | + +--------+ + + + | ELLIE WILLSON, | Routin | 12/09/2013 | | Results for this | | ARTERIAL | e | 10:46 AM | | procedure are in the | | | | PDT | | results section. | + +--------+ + + + | ELLIE WILLSON, | Routin | 12/09/2013 | | Results for this | | ARTERIAL | e | 10:18 AM | | procedure are in the | | | | PDT | | results section. | + +--------+ + + + | POC SHANTELRAYMONELLIE Amaral, | Routin | 12/09/2013 | | Results for this | | ARTERIAL | e | 9:43 AM | | procedure are in the | | | | PDT | | results section. | + +--------+ + + + | POC SHANTELCHRISTIANDOMENICOAnna, | Routin | 12/09/2013 | | Results for this | | ARTERIAL | e | 8:45 AM | | procedure are in the | | | | PDT | | results section. | + +--------+ + + + | BINU SHANTELCHRISTIANDOMENICOAnna, | Routin | 12/09/2013 | | Results for this | | ARTERIAL | e | 7:44 AM | | procedure are in the | | | | PDT | | results section. | + +--------+ + + + | POC GLUCOSE | Routin | 12/09/2013 | | Results for this | | | e | 5:27 AM | | procedure are in the | | | | PDT | | results section. | + +--------+ + + + | EXTERNAL LAB: CBC | Routin | 12/09/2013 | | Results for this | | | e | 3:30 AM | | procedure are in the | | | | PDT | | results section. | + +--------+ + + + | TROPONIN I | Routin | 12/09/2013 | | Results for this | | | e | 3:30 AM | | procedure are in the | | | | PDT | | results section. | + +--------+ + + + | CK-MB | Routin | 12/09/2013 | | Results for this | | | e | 3:30 AM | | procedure are in the | | | | PDT | | results section. | + +--------+ + + + | PTT | Routin | 12/09/2013 | | Results for this | | | e | 3:30 AM | | procedure are in the | | | | PDT | | results section. | + +--------+ + + + | PHOSPHORUS | Routin | 12/09/2013 | | Results for this | | | e | 3:30 AM | | procedure are in the | | | | PDT | | results section. | + +--------+ + + + | MAGNESIUM | Routin | 12/09/2013 | | Results for this | | | e | 3:30 AM | | procedure are in the | | | | PDT | | results section. | + +--------+ + + + | HEMOGLOBIN A1C | Routin | 12/09/2013 | | Results for this | | | e | 3:30 AM | | procedure are in the | | | | PDT | | results section. | + +--------+ + + + | CK TOTAL | Routin | 12/09/2013 | | Results for this | | | e | 3:30 AM | | procedure are in the | | | | PDT | | results section. | + +--------+ + + + | COMPREHENSIVE | Routin | 12/09/2013 | | Results for this | | METABOLIC PANEL | e | 3:30 AM | | procedure are in the | | | | PDT | | results section. | + +--------+ + + + | POC GLUCOSE | Routin | 12/08/2013 | | Results for this | | | e | 10:09 PM | | procedure are in the | | | | PDT | | results section. | + +--------+ + + + | MRSA NAAT | STAT | 12/08/2013 | | Results for this | | | | 9:39 PM | | procedure are in the | | | | PDT | | results section. | + +--------+ + + + | HISTORICAL LAB PANEL | Routin | 12/08/2013 | | Results for this | | RESULT | e | 9:03 PM | | procedure are in the | | | | PDT | | results section. | + +--------+ + + + | VAS LOWER EXTREMITY | Routin | 12/08/2013 | | Results for this | | VEIN MAPPING | e | 6:43 PM | | procedure are in the | | BILATERAL | | PDT | | results section. | + +--------+ + + + | VAS CAROTID DUPLEX | Routin | 12/08/2013 | | Results for this | | BILATERAL | e | 6:39 PM | | procedure are in the | | | | PDT | | results section. | + +--------+ + + + | EXTERNAL LAB: CBC | Routin | 12/08/2013 | | Results for this | | | e | 1:40 PM | | procedure are in the | | | | PDT | | results section. | + +--------+ + + + | CK-MB | Routin | 12/08/2013 | | Results for this | | | e | 1:40 PM | | procedure are in the | | | | PDT | | results section. | + +--------+ + + + | PTT | Routin | 12/08/2013 | | Results for this | | | e | 1:40 PM | | procedure are in the | | | | PDT | | results section. | + +--------+ + + + | PROTIME INR | Routin | 12/08/2013 | | Results for this | | | e | 1:40 PM | | procedure are in the | | | | PDT | | results section. | + +--------+ + + + | CK TOTAL | Routin | 12/08/2013 | | Results for this | | | e | 1:40 PM | | procedure are in the | | | | PDT | | results section. | + +--------+ + + + | COMPREHENSIVE | Routin | 12/08/2013 | | Results for this | | METABOLIC PANEL | e | 1:40 PM | | procedure are in the | | | | PDT | | results section. | + +--------+ + + + documented in this encounter Results POC Glucose (12/16/2013 5:18 AM PDT) + + + + + + | Component | Value | Ref Range | Performed | Pathologist | | | | | At | Signature | + + + + + + | Glucose, | 141 (H)Comment: Testing | 65 - 99 mg/dL | EXTERNAL | | | Fingerstick | performed at [facility];[address] | | LAB | | | | [address];[place], [place] | | | | | | [address] | | | | + + + + + + + + | Specimen | + + | | + + + +---------+ + + | Performing | Address | City/State/Zipcode | Phone Number | | Organization | | | | + +---------+ + + | EXTERNAL LAB | | | | + +---------+ + + Magnesium (12/16/2013 3:51 AM PDT) + + + + + + | Component | Value | Ref Range | Performed | Pathologist | | | | | At | Signature | + + + + + + | Magnesium | 1.7Comment: Testing | 1.7 - 2.4 mg/dL | EXTERNAL | | | | performed at [facility], [address] | | LAB | | | | [address], | | | | | | [place] [address] | | | | + + + [...] + +---------+ + + Basic Metabolic Panel (12/16/2013 3:51 AM PDT) + + + + + [...] | | | | | [place] [address] | | | | + + + + + + | K | 3.9Comment: Testing | 3.5 - 4.9 | EXTERNAL | | | | performed at [facility], [address] | mmol/L | LAB | | | | [address], | | | | | | [place] [address] | | | | + + + + + + | Cl | 101Comment: Testing | 99 - 109 mmol/L | EXTERNAL | | | | performed at [facility], [address] | | LAB | | | | [address], | | | | | | [place] [address] | | | | + + + + + + | CO2 | 25Comment: Testing | 23 - 32 mmol/L | EXTERNAL | | | | performed at [facility], [address] | | LAB | | | | [address], | | | | | | [place] [address] | | | | + + + + + + | Anion Gap | 13Comment: Testing | 5 - 20 mmol/L | EXTERNAL | | | | performed at [facility], [address] | | LAB | | | | [address], | | | | | | [place] [address] | | | | + + + + + + | Glucose, | 155 (H)Comment: Testing | 65 - 99 mg/dL | EXTERNAL | | | Fasting | performed at [facility], [address] | | LAB | | | | [address], | | | | | | [place] [address] | | | | + + + + + + | BUN | 16Comment: Testing | 8 - 25 mg/dL | EXTERNAL | | | | performed at [facility], [address] | | LAB | | | | [address], | | | | | | [place] [address] | | | | + + + + + + | Creatinine | 1.00Comment: Testing | 0.50 - 1.00 | EXTERNAL | | | | performed at [facility], [address] | mg/dL | LAB | | | | [address], | | | | | | [place] [address] | | | | + + + + + + | BUN/Creatin | 16Comment: Testing | | EXTERNAL | | | ine Ratio | performed at [facility], [address] | | LAB | | | | [address], | | | | | | [place] [address] | | | | + + + + + + | Calcium | 8.4 (L)Comment: Testing | 8.5 - 10.2 | EXTERNAL | | | | performed at [facility], [address] | mg/dL | LAB | | | | [address], | | | | | | [place] [address] | | | | + + + + + + | Estimated | 56 (L)Comment: GFR <60: | mL/min/1.73m2 | EXTERNAL [...] | | | | | [place] [address] | | | | + + + + + + + + | Specimen | + + | Blood specimen | | (specimen) | + + + +---------+ + + | Performing | Address | City/State/Zipcode | Phone Number | | Organization | | | | + +---------+ + + | EXTERNAL LAB | | | | + +---------+ + + POC Glucose (12/15/2013 9:25 PM PDT) + + + + + + | Component | Value | Ref Range | Performed | Pathologist | | | | | At | Signature | + + + + + + | Glucose, | 166 (H)Comment: Testing | 65 - 99 mg/dL | EXTERNAL | | | Fingerstick | performed at [facility];[address] | | LAB | | | | [address];[place], [place] | | | | | | [address] | | | | + + + + + + + + | Specimen | + + | | + + + +---------+ + + | Performing | Address | City/State/Zipcode | Phone Number | | Organization | | | | + +---------+ + + | EXTERNAL LAB | | | | + +---------+ + + POC Glucose (12/15/2013 4:16 PM PDT) + + + + + + | Component | Value | Ref Range | Performed | Pathologist | | | | | At | Signature | + + + + + + | Glucose, | 136 (H)Comment: Testing | 65 - 99 mg/dL | EXTERNAL | | | Fingerstick | performed at [facility];[address] | | LAB | | | | [address];[place], [place] | | | | | | [address] | | | | + + + + + + + + | Specimen | + + | | + + + +---------+ + + | Performing | Address | City/State/Zipcode | Phone Number | | Organization | | | | + +---------+ + + | EXTERNAL LAB | | | | + +---------+ + + POC Glucose (12/15/2013 11:28 AM PDT) + + + + + + | Component | Value | Ref Range | Performed | Pathologist | | | | | At | Signature | + + + + + + | Glucose, | 142 (H)Comment: Testing | 65 - 99 mg/dL | EXTERNAL | | | Fingerstick | performed at [facility];[address] | | LAB | | | | [address];[place], [place] | | | | | | [address] | | | | + + + + + + + + | Specimen | + + | | + + + +---------+ + + | Performing | Address | City/State/Zipcode | Phone Number | | Organization | | | | + +---------+ + + | EXTERNAL LAB | | | | + +---------+ + + XR Chest 2 Vws (12/15/2013 7:55 AM PDT) + + | Specimen | + + | | + + + + + | Impressions | Performed At | + + + | 1. Status post removal of the left pleural drain. No evidence of | | | pneumothorax. No other significant change from the prior study. | | | | | + + + + + + | Narrative | Performed At | + + + | TAMIKO CROCKETT XR CHEST 2 VIEW FRONTAL AND LATERAL 12/15/2013 7:55 AM | | | HISTORY: Shortness of breath. TECHNIQUE: 2 views of the | | | chest. FINDINGS: Compared with 12/13/13. The left pleural drain has | | | been removed. No evidence of pneumothorax. There are persistent | | | minimal bilateral pleural effusions or pleural thickening. | | | Cardiomegaly is unchanged. There is persistent minimal perihilar | | | interstitial edema and basilar atelectasis. | | + + + + + | Procedure Note | + + | Ross, Rad Conversion - 11/26/2018 3:41 PM PDT TAMIKO PRICEXR CHEST 2 VIEW FRONTAL AND | | LATERAL12/15/2013 7:55 AM HISTORY:Shortness of breath. TECHNIQUE:2 views of the chest. | | FINDINGS:Compared with 12/13/13. The left pleural drain has been removed. No evidence of | | pneumothorax. There are persistent minimal bilateral pleural effusions or pleural | | thickening. Cardiomegaly is unchanged. There is persistent minimal perihilar | | interstitial edema and basilar atelectasis. IMPRESSION: 1. Status post removal of the | | left pleural drain. No evidence of pneumothorax. No other significant change from the | | prior study. | |2 views of the chest. | | | |FINDINGS: | |Compared with 12/13/13. The left pleural drain has been removed. No evidence of pneumothorax. There are persistent minimal bilateral pleural effusions or pleural thickening. Cardiomegal y is unchanged. There is persistent minimal perihilar interstitial | |edema and basilar atelectasis. | | | |IMPRESSION: | |1. Status post removal of the left pleural drain. No evidence of pneumothorax. No other si gnificant change from the prior study. | | | | | + + POC Glucose (12/15/2013 4:01 AM PDT) + + + + + + | Component | Value | Ref Range | Performed | Pathologist | | | | | At | Signature | + + + + + + | Glucose, | 164 (H)Comment: Testing | 65 - 99 mg/dL | EXTERNAL | | | Fingerstick | performed at [facility];[address] | | LAB | | | | [address];[place], [place] | | | | | | [address] | | | | + + + + + + + + | Specimen | + + | | + + + +---------+ + + | Performing | Address | City/State/Zipcode | Phone Number | | Organization | | | | + +---------+ + + | EXTERNAL LAB | | | | + +---------+ + + Basic Metabolic Panel (12/15/2013 3:40 AM PDT) + + + + + [...] | | | | | [place] [address] | | | | + + + + + + | K | 3.9Comment: Testing | 3.5 - 4.9 | EXTERNAL | | | | performed at [facility], [address] | mmol/L | LAB | | | | [address], | | | | | | [place] [address] | | | | + + + + + + | Cl | 102Comment: Testing | 99 - 109 mmol/L | EXTERNAL | | | | performed at [facility], [address] | | LAB | | | | [address], | | | | | | [place], [place] [address] | | | | + + + + + + | CO2 | 26Comment: Testing | 23 - 32 mmol/L | EXTERNAL | | | | performed at [facility], [address] | | LAB | | | | [address], | | | | | | [place] [address] | | | | + + + + + + | Anion Gap | 10Comment: Testing | 5 - 20 mmol/L | EXTERNAL | | | | performed at [facility], [address] | | LAB | | | | [address], | | | | | | [place] [address] | | | | + + + + + + | Glucose, | 152 (H)Comment: Testing | 65 - 99 mg/dL | EXTERNAL | | | Fasting | performed at [facility], [address] | | LAB | | | | [address], | | | | | | [place] [address] | | | | + + + + + + | BUN | 16Comment: Testing | 8 - 25 mg/dL | EXTERNAL | | | | performed at [facility], [address] | | LAB | | | | [address], | | | | | | [place] [address] | | | | + + + + + + | Creatinine | 0.82Comment: Testing | 0.50 - 1.00 | EXTERNAL | | | | performed at [facility], [address] | mg/dL | LAB | | | | [address], | | | | | | [place] [address] | | | | + + + + + + | BUN/Creatin | 20Comment: Testing | | EXTERNAL | | | ine Ratio | performed at [facility], [address] | | LAB | | | | [address], | | | | | | [place] [address] | | | | + + + + + + | Calcium | 8.4 (L)Comment: Testing | 8.5 - 10.2 | EXTERNAL | | | | performed at [facility], [address] | mg/dL | LAB | | | | [facility], | | | | | | [place] [address] | | | | + + + [...] W | | | | | | [facility], | | | | | | [place] [address] | | | | + + + + + + + + | Specimen | + + | Blood specimen | | (specimen) | + + + +---------+ + + | Performing | Address | City/State/Zipcode | Phone Number | | Organization | | | | + +---------+ + + | EXTERNAL LAB | | | | + +---------+ + + POC Glucose (12/14/2013 9:30 PM PDT) + + + + + + | Component | Value | Ref Range | Performed | Pathologist | | | | | At | Signature | + + + + + + | Glucose, | 122 (H)Comment: Testing | 65 - 99 mg/dL | EXTERNAL | | | Fingerstick | performed at [facility];[address] | | LAB | | | | [address];[place], [place] | | | | | | [address] | | | | + + + + + + + + | Specimen | + + | | + + + +---------+ + + | Performing | Address | City/State/Zipcode | Phone Number | | Organization | | | | + +---------+ + + | EXTERNAL LAB | | | | + +---------+ + + POC Glucose (12/14/2013 4:42 PM PDT) + + + + + + | Component | Value | Ref Range | Performed | Pathologist | | | | | At | Signature | + + + + + + | Glucose, | 187 (H)Comment: Testing | 65 - 99 mg/dL | EXTERNAL | | | Fingerstick | performed at [facility];[address] | | LAB | | | | [address];[place], [place] | | | | | | [address] | | | | + + + + + + + + | Specimen | + + | | + + + +---------+ + + | Performing | Address | City/State/Zipcode | Phone Number | | Organization | | | | + +---------+ + + | EXTERNAL LAB | | | | + +---------+ + + POC Glucose (12/14/2013 11:21 AM PDT) + + + + + + | Component | Value | Ref Range | Performed | Pathologist | | | | | At | Signature | + + + + + + | Glucose, | 179 (H)Comment: Testing | 65 - 99 mg/dL | EXTERNAL | | | Fingerstick | performed at [facility];[address] | | LAB | | | | [address];[place] | | | | | | [address] | | | | + + + + + + + + | Specimen | + + | | + + + +---------+ + + | Performing | Address | City/State/Zipcode | Phone Number | | Organization | | | | + +---------+ + + | EXTERNAL LAB | | | | + +---------+ + + Urinalysis, Microscopic Only (12/14/2013 11:00 AM PDT) + + + + + + | Component | Value | Ref Range | Performed | Pathologist | | | | | At | Signature | + + + + + + | WBC, UA | 0-2Comment: Testing | 0 - 5 /hpf | EXTERNAL | | | | performed at [facility], [address] | | LAB | | | | [address], | | | | | | [place] [address] | | | | + + + + + + | RBC, UA | 26-50Comment: Testing | 0 - 5 /hpf | EXTERNAL | | | | performed at [facility], [address] | | LAB | | | | [address], | | | | | | [place] [address] | | | | + + + + + + | Epithelial | 6-10Comment: Testing | /lpf | EXTERNAL | | | Cells | performed at [facility], [address] | | LAB | | | | [address], | | | | | | [place] [address] | | | | + + + + + + | Bacteria, | NONE SEENComment: | | EXTERNAL | | | UA | Testing performed at | | LAB | | | | [facility], [address] | | | | | | [place] | | | | | | [address] | | | | + + + + + + | HYALINE | 0-2Comment: Testing | | EXTERNAL | | | LILIAM UA | performed at [facility], [address] | | LAB | | | | [address], | | | | | | [place] [address] | | | | + + + + + + + + | Specimen | + + | | + + + +---------+ + + | Performing | Address | City/State/Zipcode | Phone Number | | Organization | | | | + +---------+ + + | EXTERNAL LAB | | | | + +---------+ + + Urinalysis with Microscopic if Indicated (12/14/2013 11:00 AM PDT) + + + + + [...] | | | | | [place] [address] | | | | + + + + + + | Clarity | CLEARComment: Testing | | EXTERNAL | | | | performed at [facility], [address] | | LAB | | | | [address], | | | | | | [place] [address] | | | | + + + + + + | Specific | 1.006Comment: Testing | 1.002 - 1.030 | EXTERNAL | | | [place] | performed at [facility], [address] | | LAB | | | | [address], | | | | | | [place] [address] | | | | + + + + + + | Leukocyte | NEGATIVEComment: | | EXTERNAL | | | Esterase, | Testing performed at | | LAB | | | Urine | [facility], [address] | | | | | | [place] | | | | | | [id number] | | | | + + + + + + | Nitrite, | NEGATIVEComment: Testing | | EXTERNAL | | | Urine | performed at [facility], [address] | | LAB | | | | [address], | | | | | | [place] [address] | | | | + + + + + + | Urobilinoge | 0.2Comment: Testing | mg/dL | EXTERNAL | | | n, Urine | performed at [facility], [address] | | LAB | | | | [address], | | | | | | [place] [address] | | | | + + + + + + | Protein, | NEGATIVEComment: Testing | mg/dL | EXTERNAL | | | Urine | performed at [facility], [address] | | LAB | | | | [address], | | | | | | [place] [address] | | | | + + + + + + | pH, Urine | 6.0Comment: Testing | 5.0 - 8.0 | EXTERNAL | | | | performed at [facility], [address] | | LAB | | | | [address] [place], | | | | | | [place] [address] | | | | + + + + + + | Blood, | LARGE (A)Comment: | | EXTERNAL | | | Urine | Testing performed at | | LAB | | | | [facility], [address] | | | | | | [place] | | | | | | [address] | | | | + + + + + + | Ketones | NEGATIVEComment: Testing | mg/dL | EXTERNAL | | | | performed at [facility], [address] | | LAB | | | | [address], | | | | | | [place] [address] | | | | + + + + + + | Bilirubin, | NEGATIVEComment: Testing | | EXTERNAL | | | Urine | performed at [facility], [address] | | LAB | | | | [address], | | | | | | [place] [address] | | | | + + + + + + | Glucose, | NEGATIVEComment: Testing | mg/dL | EXTERNAL | | | Urine | performed at [facility], [address] | | LAB | | | | [address], | | | | | | [place] [address] | | | | + + + + + + + + | Specimen | + + | Urine specimen | | (specimen) | + + + +---------+ + + | Performing | Address | City/State/Zipcode | Phone Number | | Organization | | | | + +---------+ + + | EXTERNAL LAB | | | | + +---------+ + + POC Glucose (12/14/2013 5:14 AM PDT) + + + + + + | Component | Value | Ref Range | Performed | Pathologist | | | | | At | Signature | + + + + + + | Glucose, | 93Comment: Testing | 65 - 99 mg/dL | EXTERNAL | | | Fingerstick | performed at [facility] | | LAB | | | | [address];[place] | | | | | | [address] | | | | + + + + + + + + | Specimen | + + | | + + + +---------+ + + | Performing | Address | City/State/Zipcode | Phone Number | | Organization | | | | + +---------+ + + | EXTERNAL LAB | | | | + +---------+ + + Basic Metabolic Panel (12/14/2013 3:39 AM PDT) + + + + [...] | | | | | [place] [address] | | | | + + + + + + | K | 4.0Comment: Testing | 3.5 - 4.9 | EXTERNAL | | | | performed at [facility], [address] | mmol/L | LAB | | | | [address], | | | | | | [place] [address] | | | | + + + + + + | Cl | 105Comment: Testing | 99 - 109 mmol/L | EXTERNAL | | | | performed at [facility], [address] | | LAB | | | | [address], | | | | | | [place] [address] | | | | + + + + + + | CO2 | 28Comment: Testing | 23 - 32 mmol/L | EXTERNAL | | | | performed at [facility], [address] | | LAB | | | | [address], | | | | | | [place] [address] | | | | + + + + + + | Anion Gap | 10Comment: Testing | 5 - 20 mmol/L | EXTERNAL | | | | performed at [facility], [address] | | LAB | | | | [address], | | | | | | [place] [address] | | | | + + + + + + | Glucose, | 102 (H)Comment: Testing | 65 - 99 mg/dL | EXTERNAL | | | Fasting | performed at [facility], [address] | | LAB | | | | [address], | | | | | | [place] [address] | | | | + + + + + + | BUN | 19Comment: Testing | 8 - 25 mg/dL | EXTERNAL | | | | performed at [facility], [address] | | LAB | | | | [address], | | | | | | [place] [address] | | | | + + + + + + | Creatinine | 0.81Comment: Testing | 0.50 - 1.00 | EXTERNAL [...] | | | | | [place] [address] | | | | + + + + + + | Calcium | 8.5Comment: Testing | 8.5 - 10.2 | EXTERNAL | | | | performed at [facility], [address] | mg/dL | LAB | | | | [address], | | | | | | [place] [address] | | | | + + + [...] | | | | | | at [facility], [address] | | | | | | [address], | | | | | | [place] [address] | | | | + + + + + + + + | Specimen | + + | Blood specimen | | (specimen) | + + + +---------+ + + | Performing | Address | City/State/Zipcode | Phone Number | | Organization | | | | + +---------+ + + | EXTERNAL LAB | | | | + +---------+ + + POC Glucose (12/13/2013 9:07 PM PDT) + + + + + + | Component | Value | Ref Range | Performed | Pathologist | | | | | At | Signature | + + + + + + | Glucose, | 212 (H)Comment: Testing | 65 - 99 mg/dL | EXTERNAL | | | Fingerstick | performed at [facility];[address] | | LAB | | | | [address];[place] | | | | | | [address] | | | | + + + + + + + + | Specimen | + + | | + + + +---------+ + + | Performing | Address | City/State/Zipcode | Phone Number | | Organization | | | | + +---------+ + + | EXTERNAL LAB | | | | + +---------+ + + POC Glucose (12/13/2013 4:01 PM PDT) + + + + + + | Component | Value | Ref Range | Performed | Pathologist | | | | | At | Signature | + + + + + + | Glucose, | 203 (H)Comment: Testing | 65 - 99 mg/dL | EXTERNAL | | | Fingerstick | performed at [facility];[address] | | LAB | | | | [address];[place] | | | | | | [address] | | | | + + + + + + + + | Specimen | + + | | + + + +---------+ + + | Performing | Address | City/State/Zipcode | Phone Number | | Organization | | | | + +---------+ + + | EXTERNAL LAB | | | | + +---------+ + + POC Glucose (12/13/2013 11:41 AM PDT) + + + + + + | Component | Value | Ref Range | Performed | Pathologist | | | | | At | Signature | + + + + + + | Glucose, | 109 (H)Comment: Testing | 65 - 99 mg/dL | EXTERNAL | | | Fingerstick | performed at [facility];[address] | | LAB | | | | [address];[place], [place] | | | | | | [address] | | | | + + + + + + + + | Specimen | + + | | + + + +---------+ + + | Performing | Address | City/State/Zipcode | Phone Number | | Organization | | | | + +---------+ + + | EXTERNAL LAB | | | | + +---------+ + + Echo Limited (12/13/2013 10:20 AM PDT) + + | Specimen | + + | | + + + + + | Impressions | Performed At | + + + | 1. LV dimensions NML, global hypokinesis, LVEF 25-30%. LV false | | | tendon. When compared to Echo 09/15/2013, there appears to be slight | | | improvment in LVEF. 2. LA/RA NML. RV dimensions NML, systolic | | | funciton impaired. 3. Mild MR, mild AI. 4. No Pericardial effusion. 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 LV dimensions NML, global | | | hypokinesis, LVEF 25-30%. LV false tendon. When compared to Echo | | | 09/15/2013, there appears to be slight improvment in LVEF. 2. LA/RA NML. | | | RV dimensions NML, systolic funciton impaired. 3. Mild MR, mild AI. | | | 4. No Pericardial effusion. FINDINGS -------- [no group]: | | | Severe segmental LV dysfunction with EF 20-30%. ECG rhythm: Paced | | | rhythm. Study: A limited 2-dimensional transthoracic echocardiogram | | | with limited spectral and color flow Doppler was performed. Study: | | | This was a technically adequate study. Left Ventricle: Overall left | | | ventricular systolic function is severely impaired with, an EF between | | | 25 - 30 %. MEASUREMENTS LA Major: 4.80 cm RA | | | Major: 4.86 cm RVIDd: 3.40 cm LVEF MOD A2C: 32.58 % SV MOD | | | A2C: 46.76 ml LVEF MOD A4C: 28.08 % SV MOD A4C: 28.52 ml | | | EF Biplane: 28.86 % LVEDV MOD BP: 121.84 ml LVESV MOD BP: | | | 86.67 ml LVEDV MOD A2C: 143.50 ml LVLd A2C: 9.02 cm LVEDV MOD | | | A4C: 101.57 ml LVLd A4C: 8.72 cm LVESV MOD A2C: 96.74 ml | | | LVLs A2C: 7.93 cm LVESV MOD A4C: 73.04 ml LVLs A4C: 8.52 cm | | | LAESV(A-L): 32.84 ml LAESV Index (A-L): 18.14 ml/m2 LAAs | | | A2C: 14.02 cm2 LAESV A-L A2C: 34.59 ml LALs A2C: 4.82 cm | | | LAAs A4C: 12.57 cm2 LAESV A-L A4C: 29.46 ml LALs A4C: 4.55 | | | cm IVC diameter: 1.76 cm IVC collapse: 0.72 cm IVC % | | | collapse: 56.93 % Manager Oracle: DAIJA Authenticated by: Thomas | | | Misa HILTON Report Date/Time: 12-13-2013 14:41:28 | | + + + + + | Procedure Note | + + | Ross, Rad Conversion - 11/26/2018 3:41 PM PDT Patient Name: Romie CROCKETT of | | : 1930 Performing Physician: Thomas Bynum | | MD INDICATIONS R | | ECENT CABG 12/09 EVAL LV FUNCTION, LIMITED EXAM CONCLUSIONS 1. LV dimensions | | NML, global hypokinesis, LVEF 25-30%. LV false tendon. When compared to Echo | | 09/15/2013, there appears to be slight improvment in LVEF. 2. LA/RA NML. RV dimensions | | NML, systolic funciton impaired. 3. Mild MR, mild AI. 4. No Pericardial effusion. | | FINDINGS--------[no group]: Severe segmental LV dysfunction with EF 20-30%.ECG rhythm: | | Paced rhythm.Study: A limited 2-dimensional transthoracic echocardiogram with limited | | spectral and color flow Doppler was performed.Study: This was a technically adequate | | study.Left Ventricle: Overall left ventricular systolic function is severely impaired | | with, an EF between 25 - 30 %. MEASUREMENTS LA Major: 4.80 cmRA Major: | | 4.86 cmRVIDd: 3.40 cmLVEF MOD A2C: 32.58 %SV MOD A2C: 46.76 mlLVEF MOD A4C: | | 28.08 %SV MOD A4C: 28.52 mlEF Biplane: 28.86 %LVEDV MOD BP: 121.84 mlLVESV MOD BP: | | 86.67 mlLVEDV MOD A2C: 143.50 mlLVLd A2C: 9.02 cmLVEDV MOD A4C: 101.57 mlLVLd | | A4C: 8.72 cmLVESV MOD A2C: 96.74 mlLVLs A2C: 7.93 cmLVESV MOD A4C: 73.04 mlLVLs | | A4C: 8.52 cmLAESV(A-L): 32.84 mlLAESV Index (A-L): 18.14 ml/m2LAAs A2C: 14.02 | | [id number] A-L A2C: 34.59 mlLALs A2C: 4.82 cmLAAs A4C: 12.57 [id number] A-L A4C: | | 29.46 mlLALs A4C: 4.55 cmIVC diameter: 1.76 cmIVC collapse: 0.72 cmIVC % collapse: | | 56.93 % Manager Oracle: [email or web address] by: Thomas Bynum [facility] Date/Time: 12-13-2013 | | 14:41:28 IMPRESSION: 1. LV dimensions NML, global hypokinesis, LVEF 25-30%. LV false | | tendon. When compared to Echo 09/15/2013, there appears to be slight improvment in LVEF. | | 2. LA/RA NML. RV dimensions NML, systolic funciton impaired. 3. Mild MR, mild AI. 4. | | No Pericardial effusion. | |Left Ventricle: Overall left ventricular systolic function is severely impaired with, an EF between 25 - 30 %. | | | |MEASUREMENTS | | | |LA Major: 4.80 cm | |RA Major: 4.86 cm | |RVIDd: 3.40 cm | |LVEF MOD A2C: 32.58 % | |SV MOD A2C: 46.76 ml | |LVEF MOD A4C: 28.08 % | |SV MOD A4C: 28.52 ml | |EF Biplane: 28.86 % | |LVEDV MOD BP: 121.84 ml | |LVESV MOD BP: 86.67 ml | |LVEDV MOD A2C: 143.50 ml | |LVLd A2C: 9.02 cm | |LVEDV MOD A4C: 101.57 ml | |LVLd A4C: 8.72 cm | |LVESV MOD A2C: 96.74 ml | |LVLs A2C: 7.93 cm | |LVESV MOD A4C: 73.04 ml | |LVLs A4C: 8.52 cm | |LAESV(A-L): 32.84 ml | |LAESV Index (A-L): 18.14 ml/m2 | |LAAs A2C: 14.02 cm2 | |LAESV A-L A2C: 34.59 ml | |LALs A2C: 4.82 cm | |LAAs A4C: 12.57 cm2 | |LAESV A-L A4C: 29.46 ml | |LALs A4C: 4.55 cm | |IVC diameter: 1.76 cm | |IVC collapse: 0.72 cm | |IVC % collapse: 56.93 % | | | |Manager Oracle: KVW | |Authenticated by: Thomas Bynum MD | |Report Date/Time: 12-13-2013 14:41:28 | | | |IMPRESSION: | |1. LV dimensions NML, global hypokinesis, LVEF 25-30%. LV false tendon. When compared to Echo 09/15/2013, there appears to be slight improvment in LVEF. 2. LA/RA NML. RV dimensions NML, systolic funciton impaired. 3. | |Mild MR, mild AI. 4. No Pericardial | | effusion. | + + XR Chest 2 Vws (12/13/2013 8:22 AM PDT) + + | Specimen | + + | | + + + + + | Impressions | Performed At | + + + | 1. Tubes and lines, as above. No pneumothorax. 2. Improving | | | small left pleural effusion. 3. New small right pleural effusion. | | | 4. Improving interstitial edema. | | + + + + + + | Narrative | Performed At | + + + | TAMIKO CROCKETT XR CHEST 2 VIEW FRONTAL AND LATERAL 12/13/2013 8:22 AM | | | HISTORY: Line placement. TECHNIQUE: 2 views of the chest. | | | FINDINGS: Compared with 12/12/13. A left pleural drain is in place. | | | The left pleural effusion has decreased. A small right pleural | | | effusion is noted. There is persistent cardiomegaly. Mild interstitial | | | edema has resolved. Mediastinal drain remains in place. Sternal | | | wires appear intact. No pneumothorax. | | + + + + + | Procedure Note | + + | César Hawikns Conversion - 11/26/2018 3:41 PM PDT TAMIKO PRICEXR CHEST 2 VIEW FRONTAL AND | | LATERAL12/13/2013 8:22 AM HISTORY:Line placement. TECHNIQUE:2 views of the chest. | | FINDINGS:Compared with 12/12/13. A left pleural drain is in place. The left pleural | | effusion has decreased. A small right pleural effusion is noted. There is persistent | | cardiomegaly. Mild interstitial edema has resolved. Mediastinal drain remains in place. | | Sternal wires appear intact. No pneumothorax. IMPRESSION: 1. Tubes and lines, as above. | | No pneumothorax.2. Improving small left pleural effusion.3. New small right pleural | | effusion.4. Improving interstitial edema. | | | |FINDINGS: | |Compared with 12/12/13. A left pleural drain is in place. The left pleural effusion has decre ased. A small right pleural effusion is noted. There is persistent cardiomegaly. Mild inters titial edema has resolved. Mediastinal | |drain remains in place. Sternal | |wires appear intact. No pneumothorax. | | | |IMPRESSION: | |1. Tubes and lines, as above. No pneumothorax. | |2. Improving small left pleural effusion. | |3. New small right pleural effusion. | |4. Improving interstitial edema. | | | | | + + POC Glucose (12/13/2013 5:19 AM PDT) + + + + + + | Component | Value | Ref Range | Performed | Pathologist | | | | | At | Signature | + + + + + + | Glucose, | 78Comment: Testing | 65 - 99 mg/dL | EXTERNAL | | | Fingerstick | performed at [facility];[address] | | LAB | | | | [address];[place], [place] | | | | | | [address] | | | | + + + + + + + + | Specimen | + + | | + + + +---------+ + + | Performing | Address | City/State/Zipcode | Phone Number | | Organization | | | | + +---------+ + + | EXTERNAL LAB | | | | + +---------+ + + CBC no Differential (12/13/2013 3:30 AM PDT) + + + + + + | Component | Value | Ref Range | Performed | Pathologist | | | | | At | Signature | + + + + + + | WBC | 9.9Comment: Testing | 3.8 - 11.0 K/uL | EXTERNAL | | | | performed at [facility];[address] | | LAB | | | | [address];[place], [place] | | | | | | [address] | | | | + + + + + + | RED CELL | 2.80 (L)Comment: Testing | 3.70 - 5.10 | EXTERNAL | | | COUNT | performed at [facility];[address] | M/uL | LAB | | | | [address];[place] | | | | | | [address] | | | | + + + + + + | Hgb | 9.1 (L)Comment: Testing | 11.3 - 15.5 | EXTERNAL | | | | performed at [facility];[address] | g/dL | LAB | | | | [address];[place] | | | | | | [address] | | | | + + + + + + | Hematocrit, | 26.0 (L)Comment: Testing | 34.0 - 46.0 % | EXTERNAL | | | POC | performed at [facility];[address] | | LAB | | | | [address];[place] | | | | | | [address] | | | | + + + + + + | MCV | 92.8Comment: Testing | 80.0 - 100.0 fl | EXTERNAL | | | | performed at [facility];[address] | | LAB | | | | [address];[place] | | | | | | [address] | | | | + + + + + + | MCH | 32.5Comment: Testing | 27.0 - 34.0 pg | EXTERNAL | | | | performed at [facility];[address] | | LAB | | | | [address];[place] | | | | | | [address] | | | | + + + + + + | MCHC | 35.0Comment: Testing | 32.0 - 35.5 | EXTERNAL | | | | performed at [facility];[address] | g/dL | LAB | | | | [address];[place] | | | | | | [address] | | | | + + + + + + | RDW-CV | 44.6Comment: Testing | 37 - 53 fl | EXTERNAL | | | | performed at [facility];[address] | | LAB | | | | [address];[place] | | | | | | [address] | | | | + + + + + + | Platelet | 130 (L)Comment: Testing | 150 - 400 K/uL | EXTERNAL | | | Count | performed at [facility];[address] | | LAB | | | Plasma | [address];[place] | | | | | | [address] | | | | + + + + + + | MPV | 8.0Comment: Testing | fl | EXTERNAL | | | | performed at [facility];[address] | | LAB | | | | [address];[place] | | | | | | [address] | | | | + + + + + + + + | Specimen | + + | Blood specimen | | (specimen) | + + + +---------+ + + | Performing | Address | City/State/Zipcode | Phone Number | | Organization | | | | + +---------+ + + | EXTERNAL LAB | | | | + +---------+ + + Magnesium (12/13/2013 3:30 AM PDT) + + + + + + | Component | Value | Ref Range | Performed | Pathologist | | | | | At | Signature | + + + + + + | Magnesium | 1.9Comment: Testing | 1.7 - 2.4 mg/dL | EXTERNAL | | | | performed at [facility] | | LAB | | | | [facility];[place] | | | | | | [address] | | | | + + + [...] + +---------+ + + Basic Metabolic Panel (12/13/2013 3:30 AM PDT) + + + + + + | Component | Value | Ref Range | Performed | Pathologist | | | | | At | Signature | + + + + + + | Na | 141Comment: Testing | 135 - 143 | EXTERNAL | | | | performed at [facility];[address] | mmol/L | LAB | | | | [address];[place] | | | | | | [address] | | | | + + + + + + | K | 4.0Comment: Testing | 3.5 - 4.9 | EXTERNAL | | | | performed at [facility];[address] | mmol/L | LAB | | | | [address];[place] | | | | | | [address] | | | | + + + + + + | Cl | 107Comment: Testing | 99 - 109 mmol/L | EXTERNAL | | | | performed at [facility];[address] | | LAB | | | | [address];[place] | | | | | | [address] | | | | + + + + + + | CO2 | 26Comment: Testing | 23 - 32 mmol/L | EXTERNAL | | | | performed at [facility];[address] | | LAB | | | | [address];[place] | | | | | | [address] | | | | + + + + + + | Anion Gap | 11Comment: Testing | 5 - 20 mmol/L | EXTERNAL | | | | performed at [facility];[address] | | LAB | | | | [address];[place] | | | | | | [address] | | | | + + + + + + | Glucose, | 72Comment: Testing | 65 - 99 mg/dL | EXTERNAL | | | Fasting | performed at [facility];[address] | | LAB | | | | [address];[place] | | | | | | [address] | | | | + + + + + + | BUN | 16Comment: Testing | 8 - 25 mg/dL | EXTERNAL | | | | performed at [facility];[address] | | LAB | | | | [address];[place] | | | | | | [address] | | | | + + + + + + | Creatinine | 0.82Comment: Testing | 0.50 - 1.00 | EXTERNAL | | | | performed at [facility];[address] | mg/dL | LAB | | | | [address];[place] | | | | | | [address] | | | | + + + + + + | BUN/Creatin | 20Comment: Testing | | EXTERNAL | | | ine Ratio | performed at [facility];[address] | | LAB | | | | [address];[place] | | | | | | [address] | | | | + + + + + + | Calcium | 7.8 (L)Comment: Testing | 8.5 - 10.2 | EXTERNAL | | | | performed at [facility];[address] | mg/dL | LAB | | | | [address];[place] | | | | | | [address] | | | | + + + [...] | | | | | | at [facility];[address] [place] [address] | | | | | | Blvd;[place] [address] | | | | + + + + + + + + | Specimen | + + | Blood specimen | | (specimen) | + + + +---------+ + + | Performing | Address | City/State/Zipcode | Phone Number | | Organization | | | | + +---------+ + + | EXTERNAL LAB | | | | + +---------+ + + POC Glucose (12/12/2013 9:46 PM PDT) + + + + + + | Component | Value | Ref Range | Performed | Pathologist | | | | | At | Signature | + + + + + + | Glucose, | 105 (H)Comment: Testing | 65 - 99 mg/dL | EXTERNAL | | | Fingerstick | performed at [facility];[address] | | LAB | | | | [address];[place] | | | | | | [address] | | | | + + + + + + + + | Specimen | + + | | + + + +---------+ + + | Performing | Address | City/State/Zipcode | Phone Number | | Organization | | | | + +---------+ + + | EXTERNAL LAB | | | | + +---------+ + + Potassium (12/12/2013 6:59 PM PDT) + + + + + + | Component | Value | Ref Range | Performed | Pathologist | | | | | At | Signature | + + + + + + | K | 4.5Comment: Testing | 3.5 - 4.9 | EXTERNAL | | | | performed at [facility];[address] | mmol/L | LAB | | | | [address];[place], [place] | | | | | | [address] | | | | + + + + + + + + | Specimen | + + | Blood specimen | | (specimen) | + + + +---------+ + + | Performing | Address | City/State/Zipcode | Phone Number | | Organization | | | | + +---------+ + + | EXTERNAL LAB | | | | + +---------+ + + POC Glucose (12/12/2013 4:32 PM PDT) + + + + + + | Component | Value | Ref Range | Performed | Pathologist | | | | | At | Signature | + + + + + + | Glucose, | 106 (H)Comment: Testing | 65 - 99 mg/dL | EXTERNAL | | | Fingerstick | performed at [facility];[address] | | LAB | | | | [address];[place], [place] | | | | | | [address] | | | | + + + + + + + + | Specimen | + + | | + + + +---------+ + + | Performing | Address | City/State/Zipcode | Phone Number | | Organization | | | | + +---------+ + + | EXTERNAL LAB | | | | + +---------+ + + POC Glucose (12/12/2013 11:48 AM PDT) + + + + + + | Component | Value | Ref Range | Performed | Pathologist | | | | | At | Signature | + + + + + + | Glucose, | 104 (H)Comment: Testing | 65 - 99 mg/dL | EXTERNAL | | | Fingerstick | performed at [facility];[address] | | LAB | | | | [address];[place], [place] | | | | | | [address] | | | | + + + + + + + + | Specimen | + + | | + + + +---------+ + + | Performing | Address | City/State/Zipcode | Phone Number | | Organization | | | | + +---------+ + + | EXTERNAL LAB | | | | + +---------+ + + POC Glucose (12/12/2013 6:53 AM PDT) + + + + + + | Component | Value | Ref Range | Performed | Pathologist | | | | | At | Signature | + + + + + + | Glucose, | 156 (H)Comment: Testing | 65 - 99 mg/dL | EXTERNAL | | | Fingerstick | performed at [facility];[address] | | LAB | | | | [address];[place] | | | | | | [address] | | | | + + + + + + + + | Specimen | + + | | + + + +---------+ + + | Performing | Address | City/State/Zipcode | Phone Number | | Organization | | | | + +---------+ + + | EXTERNAL LAB | | | | + +---------+ + + XR Chest 1 Vw (12/12/2013 5:46 AM PDT) + + | Specimen | + + | | + + + + + | Impressions | Performed At | + + + | 1. Removal right IJ sheath, with otherwise unchanged tubes and | | | lines. 2. No pneumothorax. 3. Persistent mild cardiac | | | enlargement. 4. Persistent interstitial prominence both lung | | | smith. I cannot exclude an element of interstitial edema. 5. | | | Subtle left effusion. | | + + + + + + | Narrative | Performed At | + + + | HISTORY: Difficulty breathing. Tubes and lines. COMPARISON: | | | 12/11/13. TECHNIQUE: Portable AP upright film of the chest at 0505 | | | hrs. FINDINGS: Removal of the right IJ sheath, with unchanged | | | mediastinal drain and medial left basilar chest tube. Persistent mild | | | cardiac enlargement. Persistent interstitial prominence of both lung | | | smith. Mild bilateral perihilar and left greater than right basilar | | | atelectasis. Question small left effusion. | | + + + + + | Procedure Note | + + | Ross, Rad Conversion - 11/26/2018 3:41 PM PDT HISTORY:Difficulty breathing. Tubes and | | lines. COMPARISON:12/11/13. TECHNIQUE:Portable AP upright film of the chest at 0505 hrs. | | FINDINGS:Removal of the right IJ sheath, with unchanged mediastinal drain and medial | | left basilar chest tube. Persistent mild cardiac enlargement. Persistent interstitial | | prominence of both lung smith. Mild bilateral perihilar and left greater than right | | basilar atelectasis. Question small left effusion. IMPRESSION: 1. Removal right IJ | | sheath, with otherwise unchanged tubes and lines.2. No pneumothorax.3. Persistent mild | | cardiac enlargement.4. Persistent interstitial prominence both lung smith. I cannot | | exclude an element of interstitial edema.5. Subtle left effusion. | |Removal of the right IJ sheath, with unchanged mediastinal drain and medial left basilar ch est tube. Persistent mild cardiac enlargement. Persistent interstitial prominence of both onelia ng smith. Mild bilateral | |perihilar and left greater than right basilar | | atelectasis. Question small left effusion. | | | |IMPRESSION: | |1. Removal right IJ sheath, with otherwise unchanged tubes and lines. | |2. No pneumothorax. | |3. Persistent mild cardiac enlargement. | |4. Persistent interstitial prominence both lung smith. I cannot exclude an element of int erstitial edema. | |5. Subtle left effusion. | | | | | + + External Lab: [facility] (12/12/2013 3:55 AM PDT) + + + + + + | Component | Value | Ref Range | Performed | Pathologist | | | | | At | Signature | + + + + + + | WBC | 12.5 (H)Comment: Testing | 3.8 - 11.0 K/uL | EXTERNAL | | | | performed at [facility], [address] | | LAB | | | | [address], | | | | | | [place] [id number] | | | | + + + + + + | RED CELL | 2.65 (L)Comment: Testing | 3.70 - 5.10 | EXTERNAL | | | COUNT | performed at [facility], [address] | M/uL | LAB | | | | [address], | | | | | | [place] [address] | | | | + + + + + + | Hgb | 8.2 (L)Comment: Testing | 11.3 - 15.5 | EXTERNAL | | | | performed at [facility], [address] | g/dL | LAB | | | | [address], | | | | | | [place] [id number] | | | | + + + + + + | Hematocrit, | 25.3 (L)Comment: Testing | 34.0 - 46.0 % | EXTERNAL | | | POC | performed at [facility], [address] | | LAB | | | | [address], | | | | | | [place] [address] | | | | + + + + + + | MCV | 95.6Comment: Testing | 80.0 - 100.0 fl | EXTERNAL | | | | performed at [facility], [address] | | LAB | | | | [address], | | | | | | [place] [address] | | | | + + + + + + | MCH | 30.8Comment: Testing | 27.0 - 34.0 pg | EXTERNAL | | | | performed at [facility], [address] | | LAB | | | | [address], | | | | | | [place] [address] | | | | + + + + + + | MCHC | 32.2Comment: Testing | 32.0 - 35.5 | EXTERNAL | | | | performed at [facility], [address] | g/dL | LAB | | | | [address], | | | | | | [place], [place] [address] | | | | + + + + + + | RDW-CV | 45.5Comment: Testing | 37 - 53 fl | EXTERNAL | | | | performed at [facility], [address] | | LAB | | | | [address], | | | | | | [place] [address] | | | | + + + + + + | Platelet | 88 (L)Comment: Testing | 150 - 400 K/uL | EXTERNAL | | | Count | performed at [facility], [address] | | LAB | | | Plasma | [address], | | | | | | [place] [address] | | | | + + + + + + | MPV | 8.9Comment: Testing | fl | EXTERNAL | | | | performed at [facility], [address] | | LAB | | | | [address], | | | | | | [place] [address] | | | | + + + + + + | Differentia | AUTOMATEDComment: | | EXTERNAL | | | l Type | Testing performed at | | LAB | | | | [facility], [address] | | | | | | [place] | | | | | | [address] | | | | + + + + + + | % Segmented | 64.9Comment: Testing | % | EXTERNAL | | | | performed at [facility], [address] | | LAB | | | Neutrophils | [address], | | | | | | [place] [address] | | | | + + + + + + | % | 18.6Comment: Testing | % | EXTERNAL | | | Lymphocytes | performed at [facility], [address] | | LAB | | | | [address], | | | | | | [place] [address] | | | | + + + + + + | % Monocytes | 12.8Comment: Testing | % | EXTERNAL | | | | performed at [facility], [address] | | LAB | | | | [address], | | | | | | [place] [address] | | | | + + + + + + | % | 3.3Comment: Testing | % | EXTERNAL | | | Eosinophils | performed at [facility], [address] | | LAB | | | | [address], | | | | | | [place] [address] | | | | + + + + + + | % Basophils | 0.4Comment: Testing | % | EXTERNAL | | | | performed at [facility], [address] | | LAB | | | | [address], | | | | | | [place] [address] | | | | + + + + + + | Absolute | 8.1 (H)Comment: Testing | 1.9 - 7.4 K/uL | EXTERNAL | | | Segmented | performed at [facility], [address] | | LAB | | | Neutrophils | [address], | | | | | | [place] [address] | | | | + + + + + + | Absolute | 2.3Comment: Testing | 1.0 - 3.9 K/uL | EXTERNAL | | | Lymphocytes | performed at [facility], [address] | | LAB | | | | [address], | | | | | | [place] [address] | | | | + + + + + + | Absolute | 1.6 (H)Comment: Testing | 0 - 0.8 K/uL | EXTERNAL | | | Monocytes | performed at [facility], [address] | | LAB | | | | [address], | | | | | | [place] [address] | | | | + + + + + + | Absolute | 0.4Comment: Testing | 0 - 0.5 K/uL | EXTERNAL | | | Eosinophils | performed at [facility], [address] | | LAB | | | | [address], | | | | | | [place] [address] | | | | + + + + + + | Absolute | 0.1Comment: Testing | 0 - 0.1 K/uL | EXTERNAL | | | Basophils | performed at [facility], [address] | | LAB | | | | [address], | | | | | | [place] [address] | | | | + + + + + + + + | Specimen | + + | Blood specimen | | (specimen) | + + + +---------+ + + | Performing | Address | City/State/Zipcode | Phone Number | | Organization | | | | + +---------+ + + | EXTERNAL LAB | | | | + +---------+ + + Magnesium (12/12/2013 3:55 AM PDT) + + + + + + | Component | Value | Ref Range | Performed | Pathologist | | | | | At | Signature | + + + + + + | Magnesium | 2.3Comment: Testing | 1.7 - 2.4 mg/dL | EXTERNAL | | | | performed at [facility], [address] | | LAB | | | | [address], | | | | | | [place] [address] | | | | + + + [...] + +---------+ + + Basic Metabolic Panel (12/12/2013 3:55 AM PDT) + + + + + [...] | | | | | [place] [address] | | | | + + + + + + | K | 4.3Comment: Testing | 3.5 - 4.9 | EXTERNAL | | | | performed at [facility], [address] | mmol/L | LAB | | | | [address], | | | | | | [place] [address] | | | | + + + + + + | Cl | 109Comment: Testing | 99 - 109 mmol/L | EXTERNAL | | | | performed at [facility], [address] | | LAB | | | | [address], | | | | | | [place] [address] | | | | + + + + + + | CO2 | 24Comment: Testing | 23 - 32 mmol/L | EXTERNAL | | | | performed at [facility], [address] | | LAB | | | | [address], | | | | | | [place] [address] | | | | + + + + + + | Anion Gap | 7Comment: Testing | 5 - 20 mmol/L | EXTERNAL | | | | performed at [facility], [address] | | LAB | | | | [address], | | | | | | [place] [address] | | | | + + + + + + | Glucose, | 65Comment: Testing | 65 - 99 mg/dL | EXTERNAL | | | Fasting | performed at [facility], [address] | | LAB | | | | [address], | | | | | | [place] [address] | | | | + + + + + + | BUN | 12Comment: Testing | 8 - 25 mg/dL | EXTERNAL | | | | performed at [facility], [address] | | LAB | | | | [address], | | | | | | [place] [address] | | | | + + + + + + | Creatinine | 0.80Comment: Testing | 0.50 - 1.00 | EXTERNAL | | | | performed at [facility], [address] | mg/dL | LAB | | | | [address], | | | | | | [place] [address] | | | | + + + + + + | BUN/Creatin | 15Comment: Testing | | EXTERNAL | | | ine Ratio | performed at [facility], [address] | | LAB | | | | [address], | | | | | | [place] [address] | | | | + + + + + + | Calcium | 8.2 (L)Comment: Testing | 8.5 - 10.2 | EXTERNAL | | | | performed at [facility], [address] | mg/dL | LAB | | | | [address], | | | | | | [place] [address] | | | | + + + [...] | | | | | | [place] [address] | | | | + + + + + + + + | Specimen | + + | Blood specimen | | (specimen) | + + + +---------+ + + | Performing | Address | City/State/Zipcode | Phone Number | | Organization | | | | + +---------+ + + | EXTERNAL LAB | | | | + +---------+ + + POC Glucose (12/11/2013 9:32 PM PDT) + + + + + + | Component | Value | Ref Range | Performed | Pathologist | | | | | At | Signature | + + + + + + | Glucose, | 216 (H)Comment: Testing | 65 - 99 mg/dL | EXTERNAL | | | Fingerstick | performed at [facility];[address] | | LAB | | | | [address];[place] | | | | | | [address] | | | | + + + + + + + + | Specimen | + + | | + + + +---------+ + + | Performing | Address | City/State/Zipcode | Phone Number | | Organization | | | | + +---------+ + + | EXTERNAL LAB | | | | + +---------+ + + POC Glucose (12/11/2013 4:44 PM PDT) + + + + + + | Component | Value | Ref Range | Performed | Pathologist | | | | | At | Signature | + + + + + + | Glucose, | 196 (H)Comment: Testing | 65 - 99 mg/dL | EXTERNAL | | | Fingerstick | performed at [facility];[address] | | LAB | | | | [address];[place], [place] | | | | | | [address] | | | | + + + + + + + + | Specimen | + + | | + + + +---------+ + + | Performing | Address | City/State/Zipcode | Phone Number | | Organization | | | | + +---------+ + + | EXTERNAL LAB | | | | + +---------+ + + POC Glucose (12/11/2013 11:51 AM PDT) + + + + + + | Component | Value | Ref Range | Performed | Pathologist | | | | | At | Signature | + + + + + + | Glucose, | 174 (H)Comment: Testing | 65 - 99 mg/dL | EXTERNAL | | | Fingerstick | performed at [facility];[address] | | LAB | | | | [address];[place] | | | | | | [address] | | | | + + + + + + + + | Specimen | + + | | + + + +---------+ + + | Performing | Address | City/State/Zipcode | Phone Number | | Organization | | | | + +---------+ + + | EXTERNAL LAB | | | | + +---------+ + + POC Glucose (12/11/2013 6:51 AM PDT) + + + + + + | Component | Value | Ref Range | Performed | Pathologist | | | | | At | Signature | + + + + + + | Glucose, | 147 (H)Comment: Testing | 65 - 99 mg/dL | EXTERNAL | | | Fingerstick | performed at [facility];[address] | | LAB | | | | [address];[place], [place] | | | | | | [address] | | | | + + + + + + + + | Specimen | + + | | + + + +---------+ + + | Performing | Address | City/State/Zipcode | Phone Number | | Organization | | | | + +---------+ + + | EXTERNAL LAB | | | | + +---------+ + + XR Chest 1 Vw (12/11/2013 6:08 AM PDT) + + | Specimen | + + | | + + + + + | Impressions | Performed At | + + + | 1. Status post removal of the Blackwater-Puja catheter. Remaining tubes | | | and lines are stable. 2. Residual small left pleural effusion or | | | pleural thickening and patchy atelectasis. | | + + + + + + | Narrative | Performed At | + + + | TAMIKO CROCKETT 1930 83 years XR CHEST 1 VIEW 12/11/2013 6:08 AM | | | INDICATION: Chest pain, tube and line placement COMPARISON: | | | 12/10/13 TECHNIQUE: Chest 1 view, AP view of the chest | | | FINDINGS: The Black[place]-Puja catheter is no longer present. The remaining | | | support tubes and central venous catheters previously noted are | | | stable otherwise. Median sternotomy wires are intact. Moderate | | | enlargement of the cardiac silhouette is present without widening or | | | shift of the mediastinum. There is no pneumothorax. Mild blunting of | | | the bilateral costophrenic angle is present. Scattered reticular | | | markings are demonstrated throughout the lung bilaterally. | | + + + + + | Procedure Note | + + | Ross, Rad Conversion - 11/26/2018 3:41 PM PDT TAMIKO [id number] yearsXR CHEST 1 | | VIEW12/11/2013 6:08 AM INDICATION: Chest pain, tube and line placement COMPARISON: | | 12/10/13 TECHNIQUE: Chest 1 view, AP view of the chest FINDINGS: The Blackwater-Puja catheter | | is no longer present. The remaining support tubes and central venous catheters | | previously noted are stable otherwise. Median sternotomy wires are intact. Moderate | | enlargement of the cardiac silhouette is present without widening or shift of the | | mediastinum. There is no pneumothorax. Mild blunting of the bilateral costophrenic angle | | is present. Scattered reticular markings are demonstrated throughout the lung | | bilaterally. IMPRESSION: 1. Status post removal of the Blackwater-Puja catheter. Remaining | | tubes and lines are stable.2. Residual small left pleural effusion or pleural | | thickening and patchy atelectasis. Electronically signed by Omid Hill MD on | | 12/11/2013 6:58 AM | |FINDINGS: The Blackwater-Puja catheter is no longer present. The remaining support tubes and binta tral venous catheters previously noted are stable otherwise. Median sternotomy wires are int act. Moderate enlargement of the | |cardiac silhouette is present without | |widening or shift of the mediastinum. There is no pneumothorax. Mild blunting of the bilate ral costophrenic angle is present. Scattered reticular markings are demonstrated throughout the lung bilaterally. | | | |IMPRESSION: | |1. Status post removal of the Blackwater-Puja catheter. Remaining tubes and lines are stable. | |2. Residual small left pleural effusion or pleural thickening and patchy atelectasis. | | | | | + + External Lab: WILMA (12/11/2013 3:15 AM PDT) + + + + + + | Component | Value | Ref Range | Performed | Pathologist | | | | | At | Signature | + + + + + + | WBC | 11.9 (H)Comment: Testing | 3.8 - 11.0 K/uL | EXTERNAL | | | | performed at [facility], [address] | | LAB | | | | [address], | | | | | | [place] [address] | | | | + + + + + + | RED CELL | 2.60 (L)Comment: Testing | 3.70 - 5.10 | EXTERNAL | | | COUNT | performed at [facility], [address] | M/uL | LAB | | | | [address], | | | | | | [place] [address] | | | | + + + + + + | Hgb | 8.1 (L)Comment: Testing | 11.3 - 15.5 | EXTERNAL | | | | performed at [facility], [address] | g/dL | LAB | | | | [address], | | | | | | [place] [address] | | | | + + + + + + | Hematocrit, | 25.1 (L)Comment: Testing | 34.0 - 46.0 % | EXTERNAL | | | POC | performed at [facility], [address] | | LAB | | | | [address], | | | | | | [place] [address] | | | | + + + + + + | MCV | 96.3Comment: Testing | 80.0 - 100.0 fl | EXTERNAL | | | | performed at [facility], [address] | | LAB | | | | [address], | | | | | | [place] [address] | | | | + + + + + + | MCH | 31.0Comment: Testing | 27.0 - 34.0 pg | EXTERNAL | | | | performed at [facility], [address] | | LAB | | | | [address], | | | | | | [place] [address] | | | | + + + + + + | MCHC | 32.2Comment: Testing | 32.0 - 35.5 | EXTERNAL | | | | performed at [facility], [address] | g/dL | LAB | | | | [address], | | | | | | [place] [address] | | | | + + + + + + | RDW-CV | 45.9Comment: Testing | 37 - 53 fl | EXTERNAL | | | | performed at [facility], [address] | | LAB | | | | [address], | | | | | | [place] [address] | | | | + + + + + + | Platelet | 80 (L)Comment: Testing | 150 - 400 K/uL | EXTERNAL | | | Count | performed at [facility], [address] | | LAB | | | Plasma | [address], | | | | | | [place] [address] | | | | + + + + + + | MPV | 8.9Comment: Testing | fl | EXTERNAL | | | | performed at [facility], [address] | | LAB | | | | [address], | | | | | | [place] [address] | | | | + + + + + + | Differentia | AUTOMATEDComment: | | EXTERNAL | | | l Type | Testing performed at | | LAB | | | | [facility], [address] | | | | | | [place] | | | | | | [address] | | | | + + + + + + | % Segmented | 62.9Comment: Testing | % | EXTERNAL | | | | performed at [facility], [address] | | LAB | | | Neutrophils | [address], | | | | | | [place] [address] | | | | + + + + + + | % | 19.1Comment: Testing | % | EXTERNAL | | | Lymphocytes | performed at [facility], [address] | | LAB | | | | [address], | | | | | | [place] [address] | | | | + + + + + + | % Monocytes | 14.2Comment: Testing | % | EXTERNAL | | | | performed at [facility], [address] | | LAB | | | | [address], | | | | | | [place] [address] | | | | + + + + + + | % | 3.4Comment: Testing | % | EXTERNAL | | | Eosinophils | performed at [facility], [address] | | LAB | | | | [address], | | | | | | [place] [address] | | | | + + + + + + | % Basophils | 0.4Comment: Testing | % | EXTERNAL | | | | performed at [facility], [address] | | LAB | | | | [address], | | | | | | [place] [address] | | | | + + + + + + | Absolute | 7.5 (H)Comment: Testing | 1.9 - 7.4 K/uL | EXTERNAL | | | Segmented | performed at [facility], [address] | | LAB | | | Neutrophils | [address], | | | | | | [place] [address] | | | | + + + + + + | Absolute | 2.3Comment: Testing | 1.0 - 3.9 K/uL | EXTERNAL | | | Lymphocytes | performed at [facility], [address] | | LAB | | | | [address], | | | | | | [place] [address] | | | | + + + + + + | Absolute | 1.7 (H)Comment: Testing | 0 - 0.8 K/uL | EXTERNAL | | | Monocytes | performed at [facility], [address] | | LAB | | | | [address], | | | | | | [place] [address] | | | | + + + + + + | Absolute | 0.4Comment: Testing | 0 - 0.5 K/uL | EXTERNAL | | | Eosinophils | performed at [facility], [address] | | LAB | | | | [address], | | | | | | [place] [address] | | | | + + + + + + | Absolute | 0.1Comment: Testing | 0 - 0.1 K/uL | EXTERNAL | | | Basophils | performed at [facility], [address] | | LAB | | | | [address], | | | | | | [place] [address] | | | | + + + + + + + + | Specimen | + + | Blood specimen | | (specimen) | + + + +---------+ + + | Performing | Address | City/State/Zipcode | Phone Number | | Organization | | | | + +---------+ + + | EXTERNAL LAB | | | | + +---------+ + + Magnesium (12/11/2013 3:15 AM PDT) + + + + + + | Component | Value | Ref Range | Performed | Pathologist | | | | | At | Signature | + + + + + + | Magnesium | 2.2Comment: Testing | 1.7 - 2.4 mg/dL | EXTERNAL | | | | performed at [facility], [address] | | LAB | | | | [address], | | | | | | [place] [address] | | | | + + + [...] + +---------+ + + Basic Metabolic Panel (12/11/2013 3:15 AM PDT) + + + + + [...] | | | | | [place] [address] | | | | + + + + + + | K | 4.7Comment: Testing | 3.5 - 4.9 | EXTERNAL | | | | performed at [facility], [address] | mmol/L | LAB | | | | [address], | | | | | | [place] [address] | | | | + + + + + + | Cl | 111 (H)Comment: Testing | 99 - 109 mmol/L | EXTERNAL | | | | performed at [facility], [address] | | LAB | | | | [address], | | | | | | [place] [address] | | | | + + + + + + | CO2 | 18 (L)Comment: Testing | 23 - 32 mmol/L | EXTERNAL | | | | performed at [facility], [address] | | LAB | | | [address], | | | | | | [place] [address] | | | | + + + + + + | Anion Gap | 9Comment: Testing | 5 - 20 mmol/L | EXTERNAL | | | | performed at [facility], [address] | | LAB | | | | [address], | | | | | | [place] [address] | | | | + + + + + + | Glucose, | 173 (H)Comment: Testing | 65 - 99 mg/dL | EXTERNAL | | | Fasting | performed at [facility], [address] | | LAB | | | | [address], | | | | | | [place] [address] | | | | + + + + + + | BUN | 11Comment: Testing | 8 - 25 mg/dL | EXTERNAL | | | | performed at [facility], [address] | | LAB | | | | [address], | | | | | | [place] [address] | | | | + + + + + + | Creatinine | 0.77Comment: Testing | 0.50 - 1.00 | EXTERNAL | | | | performed at [facility], [address] | mg/dL | LAB | | | | [address], | | | | | | [place] [address] | | | | + + + + + + | BUN/Creatin | 14Comment: Testing | | EXTERNAL | | | ine Ratio | performed at [facility], [address] | | LAB | | | | [address], | | | | | | [place] [address] | | | | + + + + + + | Calcium | 7.5 (L)Comment: Testing | 8.5 - 10.2 | EXTERNAL | | | | performed at [facility], [address] | mg/dL | LAB | | | | [address], | | | | | | [place] [address] | | | | + + + [...] | | | | | | [place] [address] | | | | + + + + + + + + | Specimen | + + | Blood specimen | | (specimen) | + + + +---------+ + + | Performing | Address | City/State/Zipcode | Phone Number | | Organization | | | | + +---------+ + + | EXTERNAL LAB | | | | + +---------+ + + POC Glucose (12/10/2013 9:42 PM PDT) + + + + + + | Component | Value | Ref Range | Performed | Pathologist | | | | | At | Signature | + + + + + + | Glucose, | 237 (H)Comment: Testing | 65 - 99 mg/dL | EXTERNAL | | | Fingerstick | performed at [facility];[address] | | LAB | | | | [address];[place] | | | | | | [address] | | | | + + + + + + + + | Specimen | + + | | + + + +---------+ + + | Performing | Address | City/State/Zipcode | Phone Number | | Organization | | | | + +---------+ + + | EXTERNAL LAB | | | | + +---------+ + + POC Glucose (12/10/2013 9:40 PM PDT) + + + + + + | Component | Value | Ref Range | Performed | Pathologist | | | | | At | Signature | + + + + + + | Glucose, | 242 (H)Comment: Testing | 65 - 99 mg/dL | EXTERNAL | | | Fingerstick | performed at [facility];[address] | | LAB | | | | [address];[place], [place] | | | | | | [address] | | | | + + + + + + + + | Specimen | + + | | + + + +---------+ + + | Performing | Address | City/State/Zipcode | Phone Number | | Organization | | | | + +---------+ + + | EXTERNAL LAB | | | | + +---------+ + + POC Glucose (12/10/2013 5:30 PM PDT) + + + + + + | Component | Value | Ref Range | Performed | Pathologist | | | | | At | Signature | + + + + + + | Glucose, | 159 (H)Comment: Testing | 65 - 99 mg/dL | EXTERNAL | | | Fingerstick | performed at [facility];[address] | | LAB | | | | [address];[place] | | | | | | [address] | | | | + + + + + + + + | Specimen | + + | | + + + +---------+ + + | Performing | Address | City/State/Zipcode | Phone Number | | Organization | | | | + +---------+ + + | EXTERNAL LAB | | | | + +---------+ + + POC Glucose (12/10/2013 3:33 PM PDT) + + + + + + | Component | Value | Ref Range | Performed | Pathologist | | | | | At | Signature | + + + + + + | Glucose, | 190 (H)Comment: Testing | 65 - 99 mg/dL | EXTERNAL | | | Fingerstick | performed at [facility];[address] | | LAB | | | | [address];[place], [place] | | | | | | [address] | | | | + + + + + + + + | Specimen | + + | | + + + +---------+ + + | Performing | Address | City/State/Zipcode | Phone Number | | Organization | | | | + +---------+ + + | EXTERNAL LAB | | | | + +---------+ + + POC Glucose (12/10/2013 1:46 PM PDT) + + + + + + | Component | Value | Ref Range | Performed | Pathologist | | | | | At | Signature | + + + + + + | Glucose, | 163 (H)Comment: Testing | 65 - 99 mg/dL | EXTERNAL | | | Fingerstick | performed at [facility];[address] | | LAB | | | | [address];[place] | | | | | | [address] | | | | + + + + + + + + | Specimen | + + | | + + + +---------+ + + | Performing | Address | City/State/Zipcode | Phone Number | | Organization | | | | + +---------+ + + | EXTERNAL LAB | | | | + +---------+ + + POC Glucose (12/10/2013 11:28 AM PDT) + + + + + + | Component | Value | Ref Range | Performed | Pathologist | | | | | At | Signature | + + + + + + | Glucose, | 206 (H)Comment: Testing | 65 - 99 mg/dL | EXTERNAL | | | Fingerstick | performed at [facility];[address] | | LAB | | | | [address];[place] | | | | | | [address] | | | | + + + + + + + + | Specimen | + + | | + + + +---------+ + + | Performing | Address | City/State/Zipcode | Phone Number | | Organization | | | | + +---------+ + + | EXTERNAL LAB | | | | + +---------+ + + POC Glucose (12/10/2013 10:20 AM PDT) + + + + + + | Component | Value | Ref Range | Performed | Pathologist | | | | | At | Signature | + + + + + + | Glucose, | 215 (H)Comment: Testing | 65 - 99 mg/dL | EXTERNAL | | | Fingerstick | performed at [facility];[address] | | LAB | | | | [address];[place] | | | | | | [address] | | | | + + + + + + + + | Specimen | + + | | + + + +---------+ + + | Performing | Address | City/State/Zipcode | Phone Number | | Organization | | | | + +---------+ + + | EXTERNAL LAB | | | | + +---------+ + + POC Glucose (12/10/2013 8:51 AM PDT) + + + + + + | Component | Value | Ref Range | Performed | Pathologist | | | | | At | Signature | + + + + + + | Glucose, | 255 (H)Comment: Testing | 65 - 99 mg/dL | EXTERNAL | | | Fingerstick | performed at [facility] | | LAB | | | | [address];[place], [place] | | | | | | [address] | | | | + + + + + + + + | Specimen | + + | | + + + +---------+ + + | Performing | Address | City/State/Zipcode | Phone Number | | Organization | | | | + +---------+ + + | EXTERNAL LAB | | | | + +---------+ + + Potassium (12/10/2013 8:51 AM PDT) + + + + + + | Component | Value | Ref Range | Performed | Pathologist | | | | | At | Signature | + + + + + + | K | 4.2Comment: Testing | 3.5 - 4.9 | EXTERNAL | | | | performed at [facility];[address] | mmol/L | LAB | | | | [address];[place], [place] | | | | | | [address] | | | | + + + + + + + + | Specimen | + + | Blood specimen | | (specimen) | + + + +---------+ + + | Performing | Address | City/State/Zipcode | Phone Number | | Organization | | | | + +---------+ + + | EXTERNAL LAB | | | | + +---------+ + + POC Glucose (12/10/2013 5:49 AM PDT) + + + + + + | Component | Value | Ref Range | Performed | Pathologist | | | | | At | Signature | + + + + + + | Glucose, | 136 (H)Comment: Testing | 65 - 99 mg/dL | EXTERNAL | | | Fingerstick | performed at [facility] [place];[address] | | LAB | | | | [address];[place], [place] | | | | | | [address] | | | | + + + + + + + + | Specimen | + + | | + + + +---------+ + + | Performing | Address | City/State/Zipcode | Phone Number | | Organization | | | | + +---------+ + + | EXTERNAL LAB | | | | + +---------+ + + XR Chest 1 Vw (12/10/2013 5:46 AM PDT) + + | Specimen | + + | | + + + + + | Impressions | Performed At | + + + | 1. Essentially unchanged tubes and lines. 2. No pneumothorax. | | | 3. Shifting bilateral atelectasis. | | + + + + + + | Narrative | Performed At | + + + | HISTORY: Difficulty breathing. Evaluate tubes and lines. | | | COMPARISON: 12/09/13. TECHNIQUE: Portable AP upright film of the | | | chest at 0457 hrs. FINDINGS: Median sternotomy. Right IJ sheath | | | with [place]-Puja catheter in the main pulmonary artery, midline | | | mediastinal drain, left basilar chest tubes remain in place, with | | | shifting of the left chest tube tip medially. Persistent bilateral | | | perihilar, mild right basilar, and mild left moderate left basilar | | | atelectasis, slightly increased in the left lung base. No | | | pneumothorax. Heart size is normal. | | + + + + + | Procedure Note | + + | César Hawkins Conversion - 11/26/2018 3:41 PM PDT HISTORY:Difficulty breathing. Evaluate | | tubes and lines. COMPARISON:12/09/13. TECHNIQUE:Portable AP upright film of the chest at | | 0457 hrs. FINDINGS:Median sternotomy. Right IJ sheath with Blackwater-Puja catheter in the | | main pulmonary artery, midline mediastinal drain, left basilar chest tubes remain in | | place, with shifting of the left chest tube tip medially. Persistent bilateral | | perihilar, mild right basilar, and mild left moderate left basilar atelectasis, slightly | | increased in the left lung base. No pneumothorax. Heart size is normal. IMPRESSION: 1. | | Essentially unchanged tubes and lines.2. No pneumothorax.3. Shifting bilateral | | atelectasis. | |FINDINGS: | |Median sternotomy. Right IJ sheath with Blackwater-Puja catheter in the main pulmonary artery, mi dline mediastinal drain, left basilar chest tubes remain in place, with shifting of the left chest tube tip medially. Persistent bilateral perihilar, mild right | |basilar, and mild left moderate left basilar atelectasis, slightly increased in the left onelia ng base. No pneumothorax. Heart size is normal. | | | |IMPRESSION: | |1. Essentially unchanged tubes and lines. | |2. No pneumothorax. | |3. Shifting bilateral atelectasis. | | | | | + + POC Glucose (12/10/2013 3:40 AM PDT) + + + + + + | Component | Value | Ref Range | Performed | Pathologist | | | | | At | Signature | + + + + + + | Glucose, | 110 (H)Comment: Testing | 65 - 99 mg/dL | EXTERNAL | | | Fingerstick | performed at [facility];[address] | | LAB | | | | [address];[place] | | | | | | [address] | | | | + + + + + + + + | Specimen | + + | | + + + +---------+ + + | Performing | Address | City/State/Zipcode | Phone Number | | Organization | | | | + +---------+ + + | EXTERNAL LAB | | | | + +---------+ + + External Lab: CBC (12/10/2013 2:17 AM PDT) + + + + + + | Component | Value | Ref Range | Performed | Pathologist | | | | | At | Signature | + + + + + + | WBC | 12.8 (H)Comment: Testing | 3.8 - 11.0 K/uL | EXTERNAL | | | | performed at [facility], [address] | | LAB | | | | [address], | | | | | | [place] [address] | | | | + + + + + + | RED CELL | 2.99 (L)Comment: Testing | 3.70 - 5.10 | EXTERNAL | | | COUNT | performed at [facility], [address] | M/uL | LAB | | | | [address], | | | | | | [place] [address] | | | | + + + + + + | Hgb | 9.7 (L)Comment: Testing | 11.3 - 15.5 | EXTERNAL | | | | performed at [facility], [address] | g/dL | LAB | | | | [address], | | | | | | [place] [address] | | | | + + + + + + | Hematocrit, | 28.6 (L)Comment: Testing | 34.0 - 46.0 % | EXTERNAL | | | POC | performed at [facility], [address] | | LAB | | | | [address], | | | | | | [place] [address] | | | | + + + + + + | MCV | 95.5Comment: Testing | 80.0 - 100.0 fl | EXTERNAL | | | | performed at [facility], [address] | | LAB | | | | [address], | | | | | | [place] [address] | | | | + + + + + + | MCH | 32.3Comment: Testing | 27.0 - 34.0 pg | EXTERNAL | | | | performed at [facility], [address] | | LAB | | | | [address], | | | | | | [place] [address] | | | | + + + + + + | MCHC | 33.8Comment: Testing | 32.0 - 35.5 | EXTERNAL | | | | performed at [facility], [address] | g/dL | LAB | | | | [address], | | | | | | [place] [address] | | | | + + + + + + | RDW-CV | 46.4Comment: Testing | 37 - 53 fl | EXTERNAL | | | | performed at [facility], [address] | | LAB | | | | [address], | | | | | | [place] [address] | | | | + + + + + + | Platelet | 118 (L)Comment: Testing | 150 - 400 K/uL | EXTERNAL | | | Count | performed at [facility], [address] | | LAB | | | Plasma | [address], | | | | | | [place] [address] | | | | + + + + + + | MPV | 8.5Comment: Testing | fl | EXTERNAL | | | | performed at [facility], [address] | | LAB | | | | [address], | | | | | | [place] [address] | | | | + + + + + + | Differentia | AUTOMATEDComment: | | EXTERNAL | | | l Type | Testing performed at | | LAB | | | | [facility], [address] | | | | | | [place] | | | | | | [address] | | | | + + + + + + | % Segmented | 66.5Comment: Testing | % | EXTERNAL | | | | performed at [facility], [address] | | LAB | | | Neutrophils | [address], | | | | | | [place] [address] | | | | + + + + + + | % | 18.3Comment: Testing | % | EXTERNAL | | | Lymphocytes | performed at [facility], [address] | | LAB | | | | [address], | | | | | | [place] [address] | | | | + + + + + + | % Monocytes | 14.3Comment: Testing | % | EXTERNAL | | | | performed at [facility], [address] | | LAB | | | | [address], | | | | | | [place] [address] | | | | + + + + + + | % | 0.2Comment: Testing | % | EXTERNAL | | | Eosinophils | performed at [facility], [address] | | LAB | | | | [address], | | | | | | [place] [address] | | | | + + + + + + | % Basophils | 0.7Comment: Testing | % | EXTERNAL | | | | performed at [facility], [address] | | LAB | | | | [address], | | | | | | [place] [address] | | | | + + + + + + | Absolute | 8.5 (H)Comment: Testing | 1.9 - 7.4 K/uL | EXTERNAL | | | Segmented | performed at [facility], [address] | | LAB | | | Neutrophils | [address], | | | | | | [place] [address] | | | | + + + + + + | Absolute | 2.3Comment: Testing | 1.0 - 3.9 K/uL | EXTERNAL | | | Lymphocytes | performed at [facility], [address] | | LAB | | | | [address], | | | | | | [place] [address] | | | | + + + + + + | Absolute | 1.8 (H)Comment: Testing | 0 - 0.8 K/uL | EXTERNAL | | | Monocytes | performed at [facility], [address] | | LAB | | | | [address], | | | | | | [place] [address] | | | | + + + + + + | Absolute | 0.0Comment: Testing | 0 - 0.5 K/uL | EXTERNAL | | | Eosinophils | performed at [facility], [address] | | LAB | | | | [address], | | | | | | [place] [address] | | | | + + + + + + | Absolute | 0.1Comment: Testing | 0 - 0.1 K/uL | EXTERNAL | | | Basophils | performed at [facility], [address] | | LAB | | | | [address], | | | | | | [place] [address] | | | | + + + + + + + + | Specimen | + + | Blood specimen | | (specimen) | + + + +---------+ + + | Performing | Address | City/State/Zipcode | Phone Number | | Organization | | | | + +---------+ + + | EXTERNAL LAB | | | | + +---------+ + + Magnesium (12/10/2013 2:17 AM PDT) + + + + + + | Component | Value | Ref Range | Performed | Pathologist | | | | | At | Signature | + + + + + + | Magnesium | 2.4Comment: Testing | 1.7 - 2.4 mg/dL | EXTERNAL | | | | performed at [facility], [address] | | LAB | | | | [address], | | | | | | [place] [address] | | | | + + + + + + + + | Specimen | + + | Blood specimen | | (specimen) | + + + +---------+ + + | Performing | Address | City/State/Zipcode | Phone Number | | Organization | | | | + +---------+ + + | EXTERNAL LAB | | | | + +---------+ + + Hemoglobin A1C (12/10/2013 2:17 AM PDT) + + + + + + | Component | Value | Ref Range | Performed | Pathologist | | | | | At | Signature | + + + + + + | Hemoglobin | 6.3 (H)Comment: The | 4.0 - 6.0 % | EXTERNAL | | | A1c | [facility] | | LAB | | | | Association considers a | | | | | | hemoglobin A1c result of | | | | | | <7.0% to be the goal of | | | | | | diabetic therapy. | | | | | | When results are | | | | | | consistently >8.0%, the | | | | | | ADA suggests | | | | | [...] | | | | | performed at [facility], [address] | | | | | | [address], | | | | | | [place] [address] | | | | + + + + + + | Glycohemogl | 134Comment: The ADA | mg/dL | EXTERNAL | [...] | | | | | performed at [facility], [address] | | | | | | [facility], | | | | | | [place] [address] | | | | + + + [...] + +---------+ + + Basic Metabolic Panel (12/10/2013 2:17 AM PDT) + + + + + + | Component | Value | Ref Range | Performed | Pathologist | | | | | At | Signature | + + + + + + | Na | 137Comment: Testing | 135 - 143 | EXTERNAL | | | | performed at [facility], [address] | mmol/L | LAB | | | | [address], | | | | | | [place] [address] | | | | + + + + + + | K | 4.3Comment: Testing | 3.5 - 4.9 | EXTERNAL | | | | performed at [facility], [address] | mmol/L | LAB | | | | [address], | | | | | | [place] [address] | | | | + + + + + + | Cl | 113 (H)Comment: Testing | 99 - 109 mmol/L | EXTERNAL | | | | performed at [facility], [address] | | LAB | | | | [address], | | | | | | [place] [address] | | | | + + + + + + | CO2 | 22 (L)Comment: Testing | 23 - 32 mmol/L | EXTERNAL | | | | performed at [facility], [address] | | LAB | | | | [address], | | | | | | [place] [address] | | | | + + + + + + | Anion Gap | 6Comment: Testing | 5 - 20 mmol/L | EXTERNAL | | | | performed at [facility], [address] | | LAB | | | | [address], | | | | | | [place] [address] | | | | + + + + + + | Glucose, | 116 (H)Comment: Testing | 65 - 99 mg/dL | EXTERNAL | | | Fasting | performed at [facility], [address] | | LAB | | | | [address], | | | | | | [place] [address] | | | | + + + + + + | BUN | 12Comment: Testing | 8 - 25 mg/dL | EXTERNAL | | | | performed at [facility], [address] | | LAB | | | | [address], | | | | | | [place] [address] | | | | + + + + + + | Creatinine | 1.02 (H)Comment: Testing | 0.50 - 1.00 | EXTERNAL | | | | performed at [facility], [address] | mg/dL | LAB | | | | [address], | | | | | | [place] [address] | | | | + + + + + + | BUN/Creatin | 12Comment: Testing | | EXTERNAL | | | ine Ratio | performed at [facility], [address] | | LAB | | | | [address], | | | | | | [place] [address] | | | | + + + + + + | Calcium | 7.9 (L)Comment: Testing | 8.5 - 10.2 | EXTERNAL | | | | performed at [facility], [address] | mg/dL | LAB | | | | [address], | | | | | | [place] [address] | | | | + + + + + + | Estimated | 55 (L)Comment: GFR <60: | mL/min/1.73m2 | EXTERNAL [...] | | | | | [place] [address] | | | | + + + + + + + + | Specimen | + + | Blood specimen | | (specimen) | + + + +---------+ + + | Performing | Address | City/State/Zipcode | Phone Number | | Organization | | | | + +---------+ + + | EXTERNAL LAB | | | | + +---------+ + + POC Glucose (12/10/2013 2:15 AM PDT) + + + + + + | Component | Value | Ref Range | Performed | Pathologist | | | | | At | Signature | + + + + + + | Glucose, | 108 (H)Comment: Testing | 65 - 99 mg/dL | EXTERNAL | | | Fingerstick | performed at [facility];[address] | | LAB | | | | [address];[place], [place] | | | | | | [address] | | | | + + + + + + + + | Specimen | + + | | + + + +---------+ + + | Performing | Address | City/State/Zipcode | Phone Number | | Organization | | | | + +---------+ + + | EXTERNAL LAB | | | | + +---------+ + + POC Glucose (12/10/2013 1:17 AM PDT) + + + + + + | Component | Value | Ref Range | Performed | Pathologist | | | | | At | Signature | + + + + + + | Glucose, | 106 (H)Comment: Testing | 65 - 99 mg/dL | EXTERNAL | | | Fingerstick | performed at [facility];[address] | | LAB | | | | [address];[place] | | | | | | [address] | | | | + + + + + + + + | Specimen | + + | | + + + +---------+ + + | Performing | Address | City/State/Zipcode | Phone Number | | Organization | | | | + +---------+ + + | EXTERNAL LAB | | | | + +---------+ + + Potassium (12/09/2013 11:24 PM PDT) + + + + + + | Component | Value | Ref Range | Performed | Pathologist | | | | | At | Signature | + + + + + + | K | 4.6Comment: Testing | 3.5 - 4.9 | EXTERNAL | | | | performed at [facility];[address] | mmol/L | LAB | | | | [address];[place], [place] | | | | | | [address] | | | | + + + + + + + + | Specimen | + + | Blood specimen | | (specimen) | + + + +---------+ + + | Performing | Address | City/State/Zipcode | Phone Number | | Organization | | | | + +---------+ + + | EXTERNAL LAB | | | | + +---------+ + + POC Glucose (12/09/2013 11:19 PM PDT) + + + + + + | Component | Value | Ref Range | Performed | Pathologist | | | | | At | Signature | + + + + + + | Glucose, | 123 (H)Comment: Testing | 65 - 99 mg/dL | EXTERNAL | | | Fingerstick | performed at [facility];[address] | | LAB | | | | [address];[place] | | | | | | [address] | | | | + + + + + + + + | Specimen | + + | | + + + +---------+ + + | Performing | Address | City/State/Zipcode | Phone Number | | Organization | | | | + +---------+ + + | EXTERNAL LAB | | | | + +---------+ + + POC Glucose (12/09/2013 9:26 PM PDT) + + + + + + | Component | Value | Ref Range | Performed | Pathologist | | | | | At | Signature | + + + + + + | Glucose, | 139 (H)Comment: Testing | 65 - 99 mg/dL | EXTERNAL | | | Fingerstick | performed at [facility];[address] | | LAB | | | | [address];[place], [place] | | | | | | [address] | | | | + + + + + + + + | Specimen | + + | | + + + +---------+ + + | Performing | Address | City/State/Zipcode | Phone Number | | Organization | | | | + +---------+ + + | EXTERNAL LAB | | | | + +---------+ + + POC Glucose (12/09/2013 7:28 PM PDT) + + + + + + | Component | Value | Ref Range | Performed | Pathologist | | | | | At | Signature | + + + + + + | Glucose, | 122 (H)Comment: Testing | 65 - 99 mg/dL | EXTERNAL | | | Fingerstick | performed at [facility];[address] | | LAB | | | | [address];[place] | | | | | | [address] | | | | + + + + + + + + | Specimen | + + | | + + + +---------+ + + | Performing | Address | City/State/Zipcode | Phone Number | | Organization | | | | + +---------+ + + | EXTERNAL LAB | | | | + +---------+ + + CK-MB (12/09/2013 7:27 PM PDT) + + + + + -+ | Component | Value | Ref Range | Performed | Pathologist | | | | | At | Signature | + + + + + -+ | CK-MB | 27.3 (H)Comment: Testing | 0.5 - 3.6 ng/mL | EXTERNAL | | | | performed at [facility];[address] | | LAB | | | | [address];[place] | | | | | | [address] | | | | + + + + + -+ | CK-MB Index | 4.5Comment: CK INDEX | | EXTERNAL | | [...] | + +---------+ + + Troponin I (12/09/2013 7:27 PM PDT) + + + + + + | Component | Value | Ref Range | Performed | Pathologist | | | | | At | Signature | + + + + + + | Troponin I, | 13.3 ()Comment: 0.00 | 0.00 - 0.10 | [...] | | | | | | ACUTE [place] CALLED TO | | | | | | TARI Gracia IN ICU AT 2115 | | | | | | BY CD, READ BACKTesting | | | | | | performed at [facility];[address] | | | | | | [facility];[place], [place] | | | | | | [address] | | | | + + + + + + + + | Specimen | + + | Blood specimen | | (specimen) | + + + +---------+ + + | Performing | Address | City/State/Zipcode | Phone Number | | Organization | | | | + +---------+ + + | EXTERNAL LAB | | | | + +---------+ + + Potassium (12/09/2013 7:27 PM PDT) + + + + + + | Component | Value | Ref Range | Performed | Pathologist | | | | | At | Signature | + + + + + + | K | 4.5Comment: Testing | 3.5 - 4.9 | EXTERNAL | | | | performed at [facility];[address] | mmol/L | LAB | | | | [address];[place], [place] | | | | | | [address] | | | | + + + + + + + + | Specimen | + + | Blood specimen | | (specimen) | + + + +---------+ + + | Performing | Address | City/State/Zipcode | Phone Number | | Organization | | | | + +---------+ + + | EXTERNAL LAB | | | | + +---------+ + + CK Total (12/09/2013 7:27 PM PDT) + + + + + + | Component | Value | Ref Range | Performed | Pathologist | | | | | At | Signature | + + + + + + | CK, Total | 610 (H)Comment: Testing | 30 - 240 U/L | EXTERNAL | | | | performed at [facility];[address] | | LAB | | | | [facility];[place] | | | | | | [address] | | | | + + + + + + + + | Specimen | + + | Blood specimen | | (specimen) | + + + +---------+ + + | Performing | Address | City/State/Zipcode | Phone Number | | Organization | | | | + +---------+ + + | EXTERNAL LAB | | | | + +---------+ + + Potassium (12/09/2013 5:00 PM PDT) + + + + + + | Component | Value | Ref Range | Performed | Pathologist | | | | | At | Signature | + + + + + + | K | 4.2Comment: SLT | 3.5 - 4.9 | EXTERNAL | | | | HEMOLYSISTesting | mmol/L | LAB | | | | performed at [facility];[address] | | | | | | [address];[place], [place] | | | | | | [address] | | | | + + + + + + + + | Specimen | + + | Blood specimen | | (specimen) | + + + +---------+ + + | Performing | Address | City/State/Zipcode | Phone Number | | Organization | | | | + +---------+ + + | EXTERNAL LAB | | | | + +---------+ + + POC Glucose (12/09/2013 4:54 PM PDT) + + + + + + | Component | Value | Ref Range | Performed | Pathologist | | | | | At | Signature | + + + + + + | Glucose, | 142 (H)Comment: Testing | 65 - 99 mg/dL | EXTERNAL | | | Fingerstick | performed at [facility];[address] | | LAB | | | | [address];[place] | | | | | | [address] | | | | + + + + + + + + | Specimen | + + | | + + + +---------+ + + | Performing | Address | City/State/Zipcode | Phone Number | | Organization | | | | + +---------+ + + | EXTERNAL LAB | | | | + +---------+ + + XR Chest 1 Vw (12/09/2013 4:22 PM PDT) + + | Specimen | + + | | + + + + + | Impressions | Performed At | + + + | 1. Status post extubation and removal of NG tube. 2. Slight | | | worsened appearance of pulmonary edema. | | + + + + + + | Narrative | Performed At | + + + | TAMIKO CROCKETT 1930 [id number] years XR CHEST 1 VIEW 12/09/2013 4:22 PM | | | INDICATION: Hypertension, chest pain COMPARISON: 12/09/2013 | | | TECHNIQUE: Chest 1 view, AP view of the chest FINDINGS: The | | | patient is extubated with removal of the enteric tube. The Blackwater-Puja | | | catheter remains in place. A left-sided chest tube is stable. Median | | | sternotomy wires are intact. Mild cardiomegaly is noted without | | | widening of the mediastinum. There is mild to moderate interstitial | | | pulmonary edema. Blunting of the right costophrenic angle is stable | | | with slight increased pleural fluid along the left chest. | | + + + + + | Procedure Note | + + | Ross, Rad Conversion - 11/26/2018 3:41 PM PDT TAMIKO [id number] yearsXR CHEST 1 | | VIEW12/09/2013 4:22 PM INDICATION: Hypertension, chest pain COMPARISON: 12/09/2013 | | TECHNIQUE: Chest 1 view, AP view of the chest FINDINGS: The patient is extubated with | | removal of the enteric tube. The Blackwater-Puja catheter remains in place. A left-sided chest | | tube is stable. Median sternotomy wires are intact. Mild cardiomegaly is noted without | | widening of the mediastinum. There is mild to moderate interstitial pulmonary edema. | | Blunting of the right costophrenic angle is stable with slight increased pleural fluid | | along the left chest. IMPRESSION: 1. Status post extubation and removal of NG tube.2. | | Slight worsened appearance of pulmonary edema. | |TECHNIQUE: Chest 1 view, AP view of the chest | | | |FINDINGS: The patient is extubated with removal of the enteric tube. The Blackwater-Puja cathete r remains in place. A left-sided chest tube is stable. Median sternotomy wires are intact. M ild cardiomegaly is noted without | |widening of the mediastinum. There is | | mild to moderate interstitial pulmonary edema. Blunting of the right costophrenic angle is stable with slight increased pleural fluid along the left chest. | | | |IMPRESSION: | |1. Status post extubation and removal of NG tube. | |2. Slight worsened appearance of pulmonary edema. | | | | | + + POC Glucose (12/09/2013 4:00 PM PDT) + + + + + + | Component | Value | Ref Range | Performed | Pathologist | | | | | At | Signature | + + + + + + | Glucose, | 145 (H)Comment: Testing | 65 - 99 mg/dL | EXTERNAL | | | Fingerstick | performed at [facility];[address] | | LAB | | | | [address];[place] | | | | | | [address] | | | | + + + + + + + + | Specimen | + + | | + + + +---------+ + + | Performing | Address | City/State/Zipcode | Phone Number | | Organization | | | | + +---------+ + + | EXTERNAL LAB | | | | + +---------+ + + POC Glucose (12/09/2013 3:44 PM PDT) + + + + + + | Component | Value | Ref Range | Performed | Pathologist | | | | | At | Signature | + + + + + + | Glucose, | 141 (H)Comment: Testing | 65 - 99 mg/dL | EXTERNAL | | | Fingerstick | performed at [facility];[address] | | LAB | | | | [address];[place], [place] | | | | | | [address] | | | | + + + + + + + + | Specimen | + + | | + + + +---------+ + + | Performing | Address | City/State/Zipcode | Phone Number | | Organization | | | | + +---------+ + + | EXTERNAL LAB | | | | + +---------+ + + POC Glucose (12/09/2013 2:33 PM PDT) + + + + + + | Component | Value | Ref Range | Performed | Pathologist | | | | | At | Signature | + + + + + + | Glucose, | 129 (H)Comment: Testing | 65 - 99 mg/dL | EXTERNAL | | | Fingerstick | performed at [facility];[address] | | LAB | | | | [address];[place] | | | | | | [address] | | | | + + + + + + + + | Specimen | + + | | + + + +---------+ + + | Performing | Address | City/State/Zipcode | Phone Number | | Organization | | | | + +---------+ + + | EXTERNAL LAB | | | | + +---------+ + + BINU GREY CG8, Arterial (12/09/2013 1:17 PM PDT) + + + + + + | Component | Value | Ref Range | Performed | Pathologist | | | | | At | Signature | + + + + + + | FiO2, POC | 60Comment: Testing | % | EXTERNAL | | | | performed at [facility];[address] | | LAB | | | | [address];[place] | | | | | | [address] | | | | + + + + + + | PH ART | 7.260 (L)Comment: | 7.350 - 7.450 | EXTERNAL | | | | Testing performed at | | LAB | | | | [facility];[address];[place] [address] | | | | + + + + + + | PCO2 ART | 45Comment: Testing | 35 - 45 mmHg | EXTERNAL | | | | performed at [facility];[address] | | LAB | | | | [address];[place] | | | | | | [address] | | | | + + + + + + | PO2 ART | 109 (H)Comment: Testing | 80 - 105 mmHg | EXTERNAL | | | | performed at [facility];[address] | | LAB | | | | [address];[place] | | | | | | [address] | | | | + + + + + + | HCO3 ART | 20 (L)Comment: Testing | 22 - 26 mmol/L | EXTERNAL | | | | performed at [facility];[address] | | LAB | | | | [address];[place] | | | | | | [address] | | | | + + + + + + | POC | 21 (L)Comment: Testing | 23 - 27 mEq/L | EXTERNAL | | | APPEARANCE | performed at [facility];[address] | | LAB | | | [address]A | [address];[place] | | | | | | [address] | | | | + + + + + + | Base | 7 (H)Comment: Testing | 0.0 - 2.0 | EXTERNAL | | | deficit | performed at [facility];[address] | mmol/L | LAB | | | | [address];[place] | | | | | | [address] | | | | + + + + + + | O2 SAT ART | 97Comment: Testing | 95 - 98 % | EXTERNAL | | | | performed at [facility];[address] | | LAB | | | | [address];[place] | | | | | | [address] | | | | + + + + + + | Sodium, POC | 140Comment: Testing | 135 - 145 mEq/L | EXTERNAL | | | | performed at [facility];[address] | | LAB | | | | [address];[place] | | | | | | [address] | | | | + + + + + + | Potassium, | 3.7Comment: Testing | 3.5 - 5.0 mEq/L | EXTERNAL | | | POC | performed at [facility];[address] | | LAB | | | | [address];[place] | | | | | | [address] | | | | + + + + + + | Ionized | 1.07 (L)Comment: Testing | 1.12 - 1.32 | EXTERNAL | | | Calcium, | performed at [facility];[address] | mmol/L | LAB | | | POC | [address];[place] | | | | | | [address] | | | | + + + + + + | Glucose, | 112 (H)Comment: Testing | 65 - 99 mg/dL | EXTERNAL | | | POC | performed at [facility] [place];[address] | | LAB | | | | [address];[place] | | | | | | [address] | | | | + + + + + + | Hematocrit, | 23 (LL)Comment: Testing | 35.0 - 46.0 % | EXTERNAL | | | POC | performed at [facility];[address] | | LAB | | | | [address];[place] | | | | | | [address] | | | | + + + + + + | Hemoglobin, | 7.8 (LL)Comment: Testing | 11.6 - 15.5 | EXTERNAL | | | POC | performed at [facility] [place];888 | g/dL | LAB | | | | [address];[place] | | | | | | [address] | | | | + + + + + + | Comment, | Tidal Volume = | | EXTERNAL | | | POC | 14Comment: Peep = 8Resp | | LAB | | | | Rate = 41Testing | | | | | | performed at [facility];[address] | | | | | | [address];[place] | | | | | | [address] | | | | + + + + + + + + | Specimen | + + | | + + + +---------+ + + | Performing | Address | City/State/Zipcode | Phone Number | | Organization | | | | + +---------+ + + | EXTERNAL LAB | | | | + +---------+ + + XR Chest 1 Vw (12/09/2013 1:13 PM PDT) + + | Specimen | + + | | + + + + + | Impressions | Performed At | + + + | 1. Life-support lines and tubes, as above. [facility] the | | | nasogastric tube is recommended. 2. Now seen is a probable | | | moderate pulmonary edema. 3. Right larger than left pleural | | | effusions. 4. Evidence of interval CABG. Electronically | | | signed by Alexis Machuca MD on 12/09/2013 1:28 PM | | + + + + + + | Narrative | Performed At | + + + | TAMIKO CROCKETT XR CHEST 1 VIEW 12/09/2013 1:13 PM HISTORY: Status | | | post median sternotomy. Assess for life support lines and tubes. | | | TECHNIQUE: AP chest from 1309 hrs. COMPARISON: Chest | | | radiographs, most recent 09/30/13. FINDINGS: A newly seen | | | endotracheal tube is noted, position, approximately 5 cm from the | | | dharmesh. A new right internal jugular Cordis catheter is seen, through | | | which a Blackwater-Puja catheter is noted, the tip at the main pulmonary | | | outflow tract. A nasogastric tube is seen, the proximal port in the | | | region of the esophagogastric junction. The mediastinal drain is | | | well-positioned. The left basilar chest tube is well-positioned, | | | without pneumothorax. Increasing moderate mixed interstitial alveolar | | | lung opacities are noted bilaterally suggestive of pulmonary edema. | | | A probable moderate right-sided pleural effusion is seen. A probable | | | small left pleural effusion is identified. Median sternotomy wires are | | | newly seen with associated mediastinal clips. | | + + + + + | Procedure Note | + + | Ross, Rad Conversion - 11/26/2018 3:41 PM PDT TAMIKO PRICEXR CHEST 1 VIEW12/09/2013 | | 1:13 PM HISTORY:Status post median sternotomy. Assess for life support lines and tubes. | | TECHNIQUE:AP chest from 1309 hrs. COMPARISON:Chest radiographs, most recent 09/30/13. | | FINDINGS:A newly seen endotracheal tube is noted, position, approximately 5 cm from the | | dharmesh. A new right internal jugular Cordis catheter is seen, through which a [place]-Puja | | catheter is noted, the tip at the main pulmonary outflow tract. A nasogastric tube is | | seen, the proximal port in the region of the esophagogastric junction. The mediastinal | | drain is well-positioned. The left basilar chest tube is well-positioned, without | | pneumothorax. Increasing moderate mixed interstitial alveolar lung opacities are noted | | bilaterally suggestive of pulmonary edema. A probable moderate right-sided pleural | | effusion is seen. A probable small left pleural effusion is identified. Median | | sternotomy wires are newly seen with associated mediastinal clips. IMPRESSION: 1. | | Life-support lines and tubes, as above. Advancement of the nasogastric tube is | | recommended. 2. Now seen is a probable moderate pulmonary edema. 3. Right larger than | | left pleural effusions. 4. Evidence of interval CABG. | |seen, the proximal port in the region of the esophagogastric junction. The mediastinal drai n is well-positioned. The left basilar chest tube is well-positioned, without pneumothorax. Increasing moderate mixed interstitial alveolar lung opacities are | |noted bilaterally suggestive of pulmonary edema. A probable moderate right-sided pleural ef fusion is seen. A probable small left pleural effusion is identified. Median sternotomy wire s are newly seen with associated mediastinal clips. | | | |IMPRESSION: | |1. Life-support lines and tubes, as above. Advancement of the nasogastric tube is recommen ded. | | | |2. Now seen is a probable moderate pulmonary edema. | | | |3. Right larger than left pleural effusions. | | | |4. Evidence of interval CABG. | | | | | + + PTT (12/09/2013 1:13 PM PDT) + + + + + + | Component | Value | Ref Range | Performed | Pathologist | | | | | At | Signature | + + + + + + | aPTT, | 27Comment: Testing | 23 - 32 seconds | EXTERNAL | | | Patient | performed at [facility];[address] | | LAB | | | | [address];[place] | | | | | | [address] | | | | + + + + + + + + | Specimen | + + | Blood specimen | | (specimen) | + + + +---------+ + + | Performing | Address | City/State/Zipcode | Phone Number | | Organization | | | | + +---------+ + + | EXTERNAL LAB | | | | + +---------+ + + Protime INR (12/09/2013 1:13 PM PDT) + + + + + + | Component | Value | Ref Range | Performed | Pathologist | | | | | At | Signature | + + + + + + | INR | 1.4Comment: REFERENCE | | EXTERNAL | | | [...] | | | | | performed at [facility] | | | | | | [address];[place], [place] | | | | | | [address] | | | | + + + + + + + + | Specimen | + + | Blood specimen | | (specimen) | + + + +---------+ + + | Performing | Address | City/State/Zipcode | Phone Number | | Organization | | | | + +---------+ + + | EXTERNAL LAB | | | | + +---------+ + + Fibrinogen (12/09/2013 1:13 PM PDT) + + + + + + | Component | Value | Ref Range | Performed | Pathologist | | | | | At | Signature | + + + + + + | Fibrinogen | 144 (L)Comment: Testing | 200 - 450 mg/dL | EXTERNAL | | | | performed at [facility];[address] | | LAB | | | | [facility];[place], [place] | | | | | | [address] | | | | + + + [...] + +---------+ + + External Lab: CBC (12/09/2013 1:13 PM PDT) + + + + + + | Component | Value | Ref Range | Performed | Pathologist | | | | | At | Signature | + + + + + + | WBC | 18.1 (H)Comment: Testing | 3.8 - 11.0 K/uL | EXTERNAL | | | | performed at [facility] | | LAB | | | | [address];[place] | | | | | | [address] | | | | + + + + + + | RED CELL | 2.82 (L)Comment: Testing | 3.70 - 5.10 | EXTERNAL | | | COUNT | performed at [facility];[address] | M/uL | LAB | | | | [address];[place] | | | | | | [address] | | | | + + + + + + | Hgb | 9.1 (L)Comment: Testing | 11.3 - 15.5 | EXTERNAL | | | | performed at [facility];[address] | g/dL | LAB | | | | [address];[place] | | | | | | [address] | | | | + + + + + + | Hematocrit, | 26.4 (L)Comment: Testing | 34.0 - 46.0 % | EXTERNAL | | | POC | performed at [facility];[address] | | LAB | | | | [address];[place] | | | | | | [address] | | | | + + + + + + | MCV | 93.6Comment: Testing | 80.0 - 100.0 fl | EXTERNAL | | | | performed at [facility];[address] | | LAB | | | | [address];[place] | | | | | | [address] | | | | + + + + + + | MCH | 32.1Comment: Testing | 27.0 - 34.0 pg | EXTERNAL | | | | performed at [facility];[address] | | LAB | | | | [address];[place] | | | | | | [address] | | | | + + + + + + | MCHC | 34.3Comment: Testing | 32.0 - 35.5 | EXTERNAL | | | | performed at [facility];[address] | g/dL | LAB | | | | [address];[place] | | | | | | [address] | | | | + + + + + + | RDW-CV | 43.3Comment: Testing | 37 - 53 fl | EXTERNAL | | | | performed at [facility];[address] | | LAB | | | | [address];[place] | | | | | | [address] | | | | + + + + + + | Platelet | 132 (L)Comment: Testing | 150 - 400 K/uL | EXTERNAL | | | Count | performed at [facility];[address] | | LAB | | | Plasma | [address];[place] | | | | | | [address] | | | | + + + + + + | MPV | 6.9Comment: Testing | fl | EXTERNAL | | | | performed at [facility];[address] | | LAB | | | | [address];[place] | | | | | | [address] | | | | + + + + + + | Differentia | AUTOMATEDComment: | | EXTERNAL | | | l Type | Testing performed at | | LAB | | | | [facility];[address];[place] [address] | | | | + + + + + + | % Segmented | 66.3Comment: Testing | % | EXTERNAL | | | | performed at [facility];[address] | | LAB | | | Neutrophils | [address];[place] | | | | | | [address] | | | | + + + + + + | % | 26.6Comment: Testing | % | EXTERNAL | | | Lymphocytes | performed at [facility];[address] | | LAB | | | | [address];[place] | | | | | | [address] | | | | + + + + + + | % Monocytes | 4.2Comment: Testing | % | EXTERNAL | | | | performed at [facility];[address] | | LAB | | | | [address];[place] | | | | | | [address] | | | | + + + + + + | % | 2.6Comment: Testing | % | EXTERNAL | | | Eosinophils | performed at [facility];[address] | | LAB | | | | [address];[place] | | | | | | [address] | | | | + + + + + + | % Basophils | 0.3Comment: Testing | % | EXTERNAL | | | | performed at [facility];[address] | | LAB | | | | [address];[place] | | | | | | [address] | | | | + + + + + + | Absolute | 12.0 (H)Comment: Testing | 1.9 - 7.4 K/uL | EXTERNAL | | | Segmented | performed at [facility];[address] | | LAB | | | Neutrophils | [address];[place] | | | | | | [address] | | | | + + + + + + | Absolute | 4.8 (H)Comment: Testing | 1.0 - 3.9 K/uL | EXTERNAL | | | Lymphocytes | performed at [facility];[address] | | LAB | | | | [address];[place] | | | | | | [address] | | | | + + + + + + | Absolute | 0.8Comment: Testing | 0 - 0.8 K/uL | EXTERNAL | | | Monocytes | performed at [facility];[address] | | LAB | | | | [address];[place] | | | | | | [address] | | | | + + + + + + | Absolute | 0.5Comment: Testing | 0 - 0.5 K/uL | EXTERNAL | | | Eosinophils | performed at [facility];[address] | | LAB | | | | [address];[place] | | | | | | [address] | | | | + + + + + + | Absolute | 0.1Comment: Testing | 0 - 0.1 K/uL | EXTERNAL | | | Basophils | performed at [facility];[address] | | LAB | | | | [address];[place] | | | | | | [address] | | | | + + + + + + + + | Specimen | + + | Blood specimen | | (specimen) | + + + +---------+ + + | Performing | Address | City/State/Zipcode | Phone Number | | Organization | | | | + +---------+ + + | EXTERNAL LAB | | | | + +---------+ + + Magnesium (12/09/2013 1:13 PM PDT) + + + + + + | Component | Value | Ref Range | Performed | Pathologist | | | | | At | Signature | + + + + + + | Magnesium | 3.3 (H)Comment: MODERATE | 1.7 - 2.4 mg/dL | EXTERNAL | | | | HEMOLYSISTesting | | LAB | | | | performed at [facility];[address] | | | | | | [facility];[place], [place] | | | | | | [address] | | | | + + + + + + + + | Specimen | + + | Blood specimen | | (specimen) | + + + +---------+ + + | Performing | Address | City/State/Zipcode | Phone Number | | Organization | | | | + +---------+ + + | EXTERNAL LAB | | | | + +---------+ + + Calcium, Ionized (12/09/2013 1:13 PM PDT) + + + + + + | Component | Value | Ref Range | Performed | Pathologist | | | | | At | Signature | + + + + + + | Calcium | 1.25Comment: Testing | 1.08 - 1.25 | EXTERNAL | | | (Calc) | performed at [facility];[address] | mmol/L | LAB | | | | [address];[place] | | | | | | [address] | | | | + + + + + + | pH, Bld | 7.333Comment: Testing | 7.300 - 7.450 | EXTERNAL | | | | performed at [facility];[address] | | LAB | | | | [address];[place] | | | | | | [address] | | | | + + + [...] + +---------+ + + Basic Metabolic Panel (12/09/2013 1:13 PM PDT) + + + + + + | Component | Value | Ref Range | Performed | Pathologist | | | | | At | Signature | + + + + + + | Na | 146 (H)Comment: Testing | 135 - 143 | EXTERNAL | | | | performed at [facility];[address] | mmol/L | LAB | | | | [address];[place] | | | | | | [address] | | | | + + + + + + | K | 3.9Comment: MODERATE | 3.5 - 4.9 | EXTERNAL | | | | HEMOLYSISTesting | mmol/L | LAB | | | | performed at [facility];[address] | | | | | | [address];[place] | | | | | | [address] | | | | + + + + + + | Cl | 117 (H)Comment: Testing | 99 - 109 mmol/L | EXTERNAL | | | | performed at [facility];[address] | | LAB | | | | [address];[place] | | | | | | [address] | | | | + + + + + + | CO2 | 22 (L)Comment: Testing | 23 - 32 mmol/L | EXTERNAL | | | | performed at [facility];[address] | | LAB | | | | [address];[place] | | | | | | [address] | | | | + + + + + + | Anion Gap | 11Comment: Testing | 5 - 20 mmol/L | EXTERNAL | | | | performed at [facility];[address] | | LAB | | | | [address];[place] | | | | | | [address] | | | | + + + + + + | Glucose, | 112 (H)Comment: Testing | 65 - 99 mg/dL | EXTERNAL | | | Fasting | performed at [facility];[address] | | LAB | | | | [address];[place] | | | | | | [address] | | | | + + + + + + | BUN | 16Comment: Testing | 8 - 25 mg/dL | EXTERNAL | | | | performed at [facility];[address] | | LAB | | | | [address];[place] | | | | | | [address] | | | | + + + + + + | Creatinine | 1.01 (H)Comment: Testing | 0.50 - 1.00 | EXTERNAL | | | | performed at [facility];[address] | mg/dL | LAB | | | | [address];[place] | | | | | | [address] | | | | + + + + + + | BUN/Creatin | 16Comment: Testing | | EXTERNAL | | | ine Ratio | performed at [facility];[address] | | LAB | | | | [address];[place] | | | | | | [address] | | | | + + + + + + | Calcium | 8.3 (L)Comment: Testing | 8.5 - 10.2 | EXTERNAL | | | | performed at [facility];[address] | mg/dL | LAB | | | | [address];[place] | | | | | | [address] | | | | + + + + + + | Estimated | 56 (L)Comment: GFR <60: | mL/min/1.73m2 | EXTERNAL [...] | | | | | | at [facility];[address] | | | | | [facility];[place] [address] | | | | + + + + + + + + | Specimen | + + | Blood specimen | | (specimen) | + + + +---------+ + + | Performing | Address | City/State/Zipcode | Phone Number | | Organization | | | | + +---------+ + + | EXTERNAL LAB | | | | + +---------+ + + POC ISCHRISTIAN, CG8, Arterial (12/09/2013 12:15 PM PDT) + + + + + + | Component | Value | Ref Range | Performed | Pathologist | | | | | At | Signature | + + + + + + | PH ART | 7.317 (L)Comment: | 7.350 - 7.450 | EXTERNAL | | | | Testing performed at | | LAB | | | | [facility];[address];[place] [address] | | | | + + + + + + | PCO2 ART | 42Comment: Testing | 35 - 45 mmHg | EXTERNAL | | | | performed at [facility];[address] | | LAB | | | | [address];[place] | | | | | | [address] | | | | + + + + + + | PO2 ART | 188 (H)Comment: Testing | 80 - 105 mmHg | EXTERNAL | | | | performed at [facility];[address] | | LAB | | | | [address];[place] | | | | | | [address] | | | | + + + + + + | HCO3 ART | 21 (L)Comment: Testing | 22 - 26 mmol/L | EXTERNAL | | | | performed at [facility];[address] | | LAB | | | | [address];[place] | | | | | | [address] | | | | + + + + + + | POC | 23Comment: Testing | 23 - 27 mEq/L | EXTERNAL | | | APPEARANCE | performed at [facility];[address] | | LAB | | | UA | [address];[place] | | | | | | [address] | | | | + + + + + + | Base | 5 (H)Comment: Testing | 0.0 - 2.0 | EXTERNAL | | | deficit | performed at [facility];[address] | mmol/L | LAB | | | | [address];[place] | | | | | | [address] | | | | + + + + + + | O2 SAT ART | 100 (H)Comment: Testing | 95 - 98 % | EXTERNAL | | | | performed at [facility];[address] | | LAB | | | | [address];[place] | | | | | | [address] | | | | + + + + + + | Sodium, POC | 141Comment: Testing | 135 - 145 mEq/L | EXTERNAL | | | | performed at [facility];[address] | | LAB | | | | [address];[place] | | | | | | [address] | | | | + + + + + + | Potassium, | 4.5Comment: Testing | 3.5 - 5.0 mEq/L | EXTERNAL | | | POC | performed at [facility];[address] | | LAB | | | | [address];[place] | | | | | | [address] | | | | + + + + + + | Ionized | 1.59 (HH)Comment: | 1.12 - 1.32 | EXTERNAL | | | Calcium, | Testing performed at | mmol/L | LAB | | | POC | [facility];[address];[place] [address] | | | | + + + + + + | Glucose, | 176 (H)Comment: Testing | 65 - 99 mg/dL | EXTERNAL | | | POC | performed at [facility];[address] | | LAB | | | | [address];[place] | | | | | | [address] | | | | + + + + + + | Hematocrit, | 20 (LL)Comment: Testing | 35.0 - 46.0 % | EXTERNAL | | | POC | performed at [facility];[address] | | LAB | | | | [address];[place] | | | | | | [address] | | | | + + + + + + | Hemoglobin, | 6.8 (LL)Comment: Testing | 11.6 - 15.5 | EXTERNAL | | | POC | performed at [facility];[address] | g/dL | LAB | | | | [address];[place], [place] | | | | | | [address] | | | | + + + + + + + + | Specimen | + + | | + + + +---------+ + + | Performing | Address | City/State/Zipcode | Phone Number | | Organization | | | | + +---------+ + + | EXTERNAL LAB | | | | + +---------+ + + ECHO Transesophageal (CELSO) - Periop (12/09/2013 12:14 PM PDT) + + | Specimen | + + | | + + + + + | Narrative | Performed At | + + + | This is a non-reportable procedure without a fruit buyer report and | | | is used for image storage only. Please review the operative | | | procedure notes for details on the procedure. | | + + + + + | Procedure Note | + + | César Hawkins - 11/26/2018 3:41 PM PDT This is a non-reportable procedure | | without a fruit buyer report and isused for image storage only. Please review the | | operative procedure notesfor details on the procedure. | + + POC QUE, CG8, Arterial (12/09/2013 11:43 AM PDT) + + + + + + | Component | Value | Ref Range | Performed | Pathologist | | | | | At | Signature | + + + + + + | PH ART | 7.408Comment: Testing | 7.350 - 7.450 | EXTERNAL | | | | performed at [facility];[address] | | LAB | | | | [facility];[place], [place] | | | | | | [address] | | | | + + + + + + | PCO2 ART | 38Comment: Testing | 35 - 45 mmHg | EXTERNAL | | | | performed at [facility];[address] | | LAB | | | | [address];[place] | | | | | | [address] | | | | + + + + + + | PO2 ART | 228 (H)Comment: Testing | 80 - 105 mmHg | EXTERNAL | | | | performed at [facility];[address] | | LAB | | | | [address];[place] | | | | | | [address] | | | | + + + + + + | HCO3 ART | 24Comment: Testing | 22 - 26 mmol/L | EXTERNAL | | | | performed at [facility];[address] | | LAB | | | | [address];[place] | | | | | | [address] | | | | + + + + + + | POC | 25Comment: Testing | 23 - 27 mEq/L | EXTERNAL | | | APPEARANCE | performed at [facility];[address] | | LAB | | | UA | [address];[place] | | | | | | [address] | | | | + + + + + + | Base | 1Comment: Testing | 0.0 - 2.0 | EXTERNAL | | | deficit | performed at [facility];[address] | mmol/L | LAB | | | | [address];[place] | | | | | | [address] | | | | + + + + + + | O2 SAT ART | 100 (H)Comment: Testing | 95 - 98 % | EXTERNAL | | | | performed at [facility];[address] | | LAB | | | | [address];[place] | | | | | | [address] | | | | + + + + + + | Sodium, POC | 141Comment: Testing | 135 - 145 mEq/L | EXTERNAL | | | | performed at [facility];[address] | | LAB | | | | [address];[place] | | | | | | [address] | | | | + + + + + + | Potassium, | 5.1 (H)Comment: Testing | 3.5 - 5.0 mEq/L | EXTERNAL | | | POC | performed at [facility];[address] | | LAB | | | | [address];[place] | | | | | | [address] | | | | + + + + + + | Ionized | 1.05 (L)Comment: Testing | 1.12 - 1.32 | EXTERNAL | | | Calcium, | performed at [facility];[address] | mmol/L | LAB | | | POC | [address];[place] | | | | | | [address] | | | | + + + + + + | Glucose, | 124 (H)Comment: Testing | 65 - 99 mg/dL | EXTERNAL | | | POC | performed at [facility];[address] | | LAB | | | | [address];[place] | | | | | | [address] | | | | + + + + + + | Hematocrit, | 22 (LL)Comment: Testing | 35.0 - 46.0 % | EXTERNAL | | | POC | performed at [facility];[address] | | LAB | | | | [address];[place] | | | | | | [address] | | | | + + + + + + | Hemoglobin, | 7.5 (LL)Comment: Testing | 11.6 - 15.5 | EXTERNAL | | | POC | performed at [facility];888 | g/dL | LAB | | | | [address];[place] | | | | | | [address] | | | | + + + + + + + + | Specimen | + + | | + + + +---------+ + + | Performing | Address | City/State/Zipcode | Phone Number | | Organization | | | | + +---------+ + + | EXTERNAL LAB | | | | + +---------+ + + POC QUE, CG8, Arterial (12/09/2013 11:16 AM PDT) + + + + + + | Component | Value | Ref Range | Performed | Pathologist | | | | | At | Signature | + + + + + + | PH ART | 7.418Comment: Testing | 7.350 - 7.450 | EXTERNAL | | | | performed at [facility];[address] | | LAB | | | | [address];[place] | | | | | | [address] | | | | + + + + + + | PCO2 ART | 36Comment: Testing | 35 - 45 mmHg | EXTERNAL | | | | performed at [facility];[address] | | LAB | | | | [address];[place] | | | | | | [address] | | | | + + + + + + | PO2 ART | 233 (H)Comment: Testing | 80 - 105 mmHg | EXTERNAL | | | | performed at [facility];[address] | | LAB | | | | [address];[place] | | | | | | [address] | | | | + + + + + + | HCO3 ART | 23Comment: Testing | 22 - 26 mmol/L | EXTERNAL | | | | performed at [facility];[address] | | LAB | | | | [address];[place] | | | | | | [address] | | | | + + + + + + | POC | 24Comment: Testing | 23 - 27 mEq/L | EXTERNAL | | | APPEARANCE | performed at [facility];[address] | | LAB | | | UA | [address];[place] | | | | | | [address] | | | | + + + + + + | Base | 2Comment: Testing | 0.0 - 2.0 | EXTERNAL | | | deficit | performed at [facility];[address] | mmol/L | LAB | | | | [address];[place] | | | | | | [address] | | | | + + + + + + | O2 SAT ART | 100 (H)Comment: Testing | 95 - 98 % | EXTERNAL | | | | performed at [facility];[address] | | LAB | | | | [address];[place] | | | | | | [address] | | | | + + + + + + | Sodium, POC | 139Comment: Testing | 135 - 145 mEq/L | EXTERNAL | | | | performed at [facility];[address] | | LAB | | | | [address];[place] | | | | | | [address] | | | | + + + + + + | Potassium, | 5.5 (H)Comment: Testing | 3.5 - 5.0 mEq/L | EXTERNAL | | | POC | performed at [facility];[address] | | LAB | | | | [address];[place] | | | | | | [address] | | | | + + + + + + | Ionized | 1.05 (L)Comment: Testing | 1.12 - 1.32 | EXTERNAL | | | Calcium, | performed at [facility];[address] | mmol/L | LAB | | | POC | [address];[place] | | | | | | [address] | | | | + + + + + + | Glucose, | 120 (H)Comment: Testing | 65 - 99 mg/dL | EXTERNAL | | | POC | performed at [facility];[address] | | LAB | | | | [address];[place] | | | | | | [address] | | | | + + + + + + | Hematocrit, | 21 (LL)Comment: Testing | 35.0 - 46.0 % | EXTERNAL | | | POC | performed at [facility];[address] | | LAB | | | | [address];[place] | | | | | | [address] | | | | + + + + + + | Hemoglobin, | 7.1 (LL)Comment: Testing | 11.6 - 15.5 | EXTERNAL | | | POC | performed at [facility];[address] | g/dL | LAB | | | | [address];[place], [place] | | | | | | [address] | | | | + + + + + + + + | Specimen | + + | | + + + +---------+ + + | Performing | Address | City/State/Zipcode | Phone Number | | Organization | | | | + +---------+ + + | EXTERNAL LAB | | | | + +---------+ + + POC QUE [id number], Arterial (12/09/2013 10:46 AM PDT) + + + + + + | Component | Value | Ref Range | Performed | Pathologist | | | | | At | Signature | + + + + + + | PH ART | 7.425Comment: Testing | 7.350 - 7.450 | EXTERNAL | | | | performed at [facility];[address] | | LAB | | | | [address];[place] | | | | | | [address] | | | | + + + + + + | PCO2 ART | 36Comment: Testing | 35 - 45 mmHg | EXTERNAL | | | | performed at [facility];[address] | | LAB | | | | [address];[place] | | | | | | [address] | | | | + + + + + + | PO2 ART | 229 (H)Comment: Testing | 80 - 105 mmHg | EXTERNAL | | | | [facility] [facility];[address] | | LAB | | | | [address];[place] | | | | | | [address] | | | | + + + + + + | HCO3 ART | 24Comment: Testing | 22 - 26 mmol/L | EXTERNAL | | | | performed at [facility];[address] | | LAB | | | | [address];[place] | | | | | | [address] | | | | + + + + + + | POC | 25Comment: Testing | 23 - 27 mEq/L | EXTERNAL | | | APPEARANCE | performed at [facility];[address] | | LAB | | | UA | [address];[place] | | | | | | [address] | | | | + + + + + + | Base | 1Comment: Testing | 0.0 - 2.0 | EXTERNAL | | | deficit | performed at [facility];888 | mmol/L | LAB | | | | [address];[place] | | | | | | [address] | | | | + + + + + + | O2 SAT ART | 100 (H)Comment: Testing | 95 - 98 % | EXTERNAL | | | | performed at [facility];[address] | | LAB | | | | [address];[place] | | | | | | [address] | | | | + + + + + + | Sodium, POC | 138Comment: Testing | 135 - 145 mEq/L | EXTERNAL | | | | performed at [facility];[address] | | LAB | | | | [address];[place] | | | | | | [address] | | | | + + + + + + | Potassium, | 5.5 (H)Comment: Testing | 3.5 - 5.0 mEq/L | EXTERNAL | | | POC | performed at [facility];[address] | | LAB | | | | [address];[place] | | | | | | [address] | | | | + + + + + + | Ionized | 1.04 (L)Comment: Testing | 1.12 - 1.32 | EXTERNAL | | | Calcium, | performed at [facility];888 | mmol/L | LAB | | | POC | [address];[place] | | | | | | [address] | | | | + + + + + + | Glucose, | 115 (H)Comment: Testing | 65 - 99 mg/dL | EXTERNAL | | | POC | performed at [facility];[address] | | LAB | | | | [address];[place] | | | | | | [address] | | | | + + + + + + | Hematocrit, | 21 (LL)Comment: Testing | 35.0 - 46.0 % | EXTERNAL | | | POC | performed at [facility];[address] | | LAB | | | | [address];[place] | | | | | | [address] | | | | + + + + + + | Hemoglobin, | 7.1 (LL)Comment: Testing | 11.6 - 15.5 | EXTERNAL | | | POC | performed at [facility];888 | g/dL | LAB | | | | [address];[place] | | | | | | [address] | | | | + + + + + + + + | Specimen | + + | | + + + +---------+ + + | Performing | Address | City/State/Zipcode | Phone Number | | Organization | | | | + +---------+ + + | EXTERNAL LAB | | | | + +---------+ + + BINU GREY CG8 Arterial (12/09/2013 10:18 AM PDT) + + + + + + | Component | Value | Ref Range | Performed | Pathologist | | | | | At | Signature | + + + + + + | PH ART | 7.430Comment: Testing | 7.350 - 7.450 | EXTERNAL | | | | performed at [facility];[address] | | LAB | | | | [address];[place] | | | | | | [address] | | | | + + + + + + | PCO2 ART | 37Comment: Testing | 35 - 45 mmHg | EXTERNAL | | | | performed at [facility];[address] | | LAB | | | | [address];[place] | | | | | | [address] | | | | + + + + + + | PO2 ART | 230 (H)Comment: Testing | 80 - 105 mmHg | EXTERNAL | | | | performed at [facility];[address] | | LAB | | | | [address];[place] | | | | | | [address] | | | | + + + + + + | HCO3 ART | 24Comment: Testing | 22 - 26 mmol/L | EXTERNAL | | | | performed at [facility];[address] | | LAB | | | | [address];[place] | | | | | | [address] | | | | + + + + + + | POC | 25Comment: Testing | 23 - 27 mEq/L | EXTERNAL | | | APPEARANCE | performed at [facility];[address] | | LAB | | | UA | [address];[place] | | | | | | [address] | | | | + + + + + + | Base | 0Comment: Testing | 0 - 3 mEq/L | EXTERNAL | | | Excess, | performed at [facility];[address] | | LAB | | | Arterial | [address];[place] | | | | | | [address] | | | | + + + + + + | O2 SAT ART | 100 (H)Comment: Testing | 95 - 98 % | EXTERNAL | | | | performed at [facility];[address] | | LAB | | | | [address];[place] | | | | | | [address] | | | | + + + + + + | Sodium, POC | 138Comment: Testing | 135 - 145 mEq/L | EXTERNAL | | | | performed at [facility];[address] | | LAB | | | | [address];[place] | | | | | | [address] | | | | + + + + + + | Potassium, | 5.7 (H)Comment: Testing | 3.5 - 5.0 mEq/L | EXTERNAL | | | POC | performed at [facility];[address] | | LAB | | | | [address];[place] | | | | | | [address] | | | | + + + + + + | Ionized | 1.05 (L)Comment: Testing | 1.12 - 1.32 | EXTERNAL | | | Calcium, | performed at [facility];888 | mmol/L | LAB | | | POC | [address];[place] | | | | | | [address] | | | | + + + + + + | Glucose, | 112 (H)Comment: Testing | 65 - 99 mg/dL | EXTERNAL | | | POC | performed at [facility];[address] | | LAB | | | | [address];[place] | | | | | | [address] | | | | + + + + + + | Hematocrit, | 21 (LL)Comment: Testing | 35.0 - 46.0 % | EXTERNAL | | | POC | performed at [facility];[address] | | LAB | | | | [address];[place] | | | | | | [address] | | | | + + + + + + | Hemoglobin, | 7.1 (LL)Comment: Testing | 11.6 - 15.5 | EXTERNAL | | | POC | performed at [facility];888 | g/dL | LAB | | | | [address];[place] | | | | | | [address] | | | | + + + + + + + + | Specimen | + + | | + + + +---------+ + + | Performing | Address | City/State/Zipcode | Phone Number | | Organization | | | | + +---------+ + + | EXTERNAL LAB | | | | + +---------+ + + DOMENICO WILLSON8 Arterial (12/09/2013 9:43 AM PDT) + + + + + + | Component | Value | Ref Range | Performed | Pathologist | | | | | At | Signature | + + + + + + | PH ART | 7.386Comment: Testing | 7.350 - 7.450 | EXTERNAL | | | | performed at [facility];[address] | | LAB | | | | [address];[place] | | | | | | [address] | | | | + + + + + + | PCO2 ART | 42Comment: Testing | 35 - 45 mmHg | EXTERNAL | | | | performed at [facility];[address] | | LAB | | | | [address];[place] | | | | | | [address] | | | | + + + + + + | PO2 ART | 288 (H)Comment: Testing | 80 - 105 mmHg | EXTERNAL | | | | performed at [facility];[address] | | LAB | | | | [address];[place] | | | | | | [address] | | | | + + + + + + | HCO3 ART | 25Comment: Testing | 22 - 26 mmol/L | EXTERNAL | | | | performed at [facility];[address] | | LAB | | | | [address];[place] | | | | | | [address] | | | | + + + + + + | POC | 26Comment: Testing | 23 - 27 mEq/L | EXTERNAL | | | APPEARANCE | performed at [facility];[address] | | LAB | | | UA | [address];[place] | | | | | | [address] | | | | + + + + + + | Base | 0Comment: Testing | 0 - 3 mEq/L | EXTERNAL | | | Excess, | performed at [facility];[address] | | LAB | | | Arterial | [address];[place] | | | | | | [address] | | | | + + + + + + | O2 SAT ART | 100 (H)Comment: Testing | 95 - 98 % | EXTERNAL | | | | performed at [facility];[address] | | LAB | | | | [address];[place] | | | | | | [address] | | | | + + + + + + | Sodium, POC | 136Comment: Testing | 135 - 145 mEq/L | EXTERNAL | | | | performed at [facility];[address] | | LAB | | | | [address];[place] | | | | | | [address] | | | | + + + + + + | Potassium, | 3.8Comment: Testing | 3.5 - 5.0 mEq/L | EXTERNAL | | | POC | performed at [facility];[address] | | LAB | | | | [address];[place] | | | | | | [address] | | | | + + + + + + | Ionized | 0.96 (L)Comment: Testing | 1.12 - 1.32 | EXTERNAL | | | Calcium, | performed at [facility];888 | mmol/L | LAB | | | POC | [address];[place] | | | | | | [address] | | | | + + + + + + | Glucose, | 118 (H)Comment: Testing | 65 - 99 mg/dL | EXTERNAL | | | POC | performed at [facility];[address] | | LAB | | | | [address];[place] | | | | | | [address] | | | | + + + + + + | Hematocrit, | 24 (L)Comment: Testing | 35.0 - 46.0 % | EXTERNAL | | | POC | performed at [facility];[address] | | LAB | | | | [address];[place] | | | | | | [address] | | | | + + + + + + | Hemoglobin, | 8.2 (L)Comment: Testing | 11.6 - 15.5 | EXTERNAL | | | POC | performed at [facility];888 | g/dL | LAB | | | | [address];[place] | | | | | | [address] | | | | + + + + + + + + | Specimen | + + | | + + + +---------+ + + | Performing | Address | City/State/Zipcode | Phone Number | | Organization | | | | + +---------+ + + | EXTERNAL LAB | | | | + +---------+ + + POC ISCHRISTIAN, CG8, Arterial (12/09/2013 8:45 AM PDT) + + + + + + | Component | Value | Ref Range | Performed | Pathologist | | | | | At | Signature | + + + + + + | PH ART | 7.244 ()Comment: | 7.350 - 7.450 | EXTERNAL | | | | Testing performed at | | LAB | | | | [address] | | [address];[place] [address] | | | | + + + + + + | PCO2 ART | 55 (H)Comment: Testing | 35 - 45 mmHg | EXTERNAL | | | | performed at [facility];[address] | | LAB | | | | [address];[place] | | | | | | [address] | | | | + + + + + + | PO2 ART | 448 (H)Comment: Testing | 80 - 105 mmHg | EXTERNAL | | | | performed at [facility];[address] | | LAB | | | | [address];[place] | | | | | | [address] | | | | + + + + + + | HCO3 ART | 24Comment: Testing | 22 - 26 mmol/L | EXTERNAL | | | | performed at [facility];[address] | | LAB | | | | [address];[place] | | | | | | [address] | | | | + + + + + + | POC | 26Comment: Testing | 23 - 27 mEq/L | EXTERNAL | | | APPEARANCE | performed at [facility];[address] | | LAB | | | UA | [address];[place] | | | | | | [address] | | | | + + + + + + | Base | 3 (H)Comment: Testing | 0.0 - 2.0 | EXTERNAL | | | deficit | performed at [facility];888 | mmol/L | LAB | | | | [address];[place] | | | | | | [address] | | | | + + + + + + | O2 SAT ART | 100 (H)Comment: Testing | 95 - 98 % | EXTERNAL | | | | performed at [facility];[address] | | LAB | | | | [address];[place] | | | | | | [address] | | | | + + + + + + | Sodium, POC | 136Comment: Testing | 135 - 145 mEq/L | EXTERNAL | | | | performed at [facility];[address] | | LAB | | | | [address];[place] | | | | | | [address] | | | | + + + + + + | Potassium, | 3.7Comment: Testing | 3.5 - 5.0 mEq/L | EXTERNAL | | | POC | performed at [facility];[address] | | LAB | | | | [address];[place] | | | | | | [address] | | | | + + + + + + | Ionized | 1.19Comment: Testing | 1.12 - 1.32 | EXTERNAL | | | Calcium, | performed at [facility];888 | mmol/L | LAB | | | POC | [address];[place] | | | | | | [address] | | | | + + + + + + | Glucose, | 155 (H)Comment: Testing | 65 - 99 mg/dL | EXTERNAL | | | POC | performed at [facility];[address] | | LAB | | | | [address];[place] | | | | | | [address] | | | | + + + + + + | Hematocrit, | 33 (L)Comment: Testing | 35.0 - 46.0 % | EXTERNAL | | | POC | performed at [facility];[address] | | LAB | | | | [address];[place] | | | | | | [address] | | | | + + + + + + | Hemoglobin, | 11.2 (L)Comment: Testing | 11.6 - 15.5 | EXTERNAL | | | POC | performed at [facility];888 | g/dL | LAB | | | | [address];[place] | | | | | | [address] | | | | + + + + + + + + | Specimen | + + | | + + + +---------+ + + | Performing | Address | City/State/Zipcode | Phone Number | | Organization | | | | + +---------+ + + | EXTERNAL LAB | | | | + +---------+ + + POC QUE, CG8, Arterial (12/09/2013 7:44 AM PDT) + + + + + + | Component | Value | Ref Range | Performed | Pathologist | | | | | At | Signature | + + + + + + | PH ART | 7.368Comment: Testing | 7.350 - 7.450 | EXTERNAL | | | | performed at [facility];[address] | | LAB | | | | [address];[place] | | | | | | [address] | | | | + + + + + + | PCO2 ART | 42Comment: Testing | 35 - 45 mmHg | EXTERNAL | | | | performed at [facility];[address] | | LAB | | | | [address];[place] | | | | | | [address] | | | | + + + + + + | PO2 ART | 381 (H)Comment: Testing | 80 - 105 mmHg | EXTERNAL | | | | performed at [facility];[address] | | LAB | | | | [address];[place] | | | | | | [address] | | | | + + + + + + | HCO3 ART | 24Comment: Testing | 22 - 26 mmol/L | EXTERNAL | | | | performed at [facility];[address] | | LAB | | | | [address];[place] | | | | | | [address] | | | | + + + + + + | POC | 25Comment: Testing | 23 - 27 mEq/L | EXTERNAL | | | APPEARANCE | performed at [facility];[address] | | LAB | | | UA | [address];[place] | | | | | | [address] | | | | + + + + + + | Base | 1Comment: Testing | 0.0 - 2.0 | EXTERNAL | | | deficit | performed at [facility];888 | mmol/L | LAB | | | | [address];[place] | | | | | | [address] | | | | + + + + + + | O2 SAT ART | 100 (H)Comment: Testing | 95 - 98 % | EXTERNAL | | | | performed at [facility];[address] | | LAB | | | | [address];[place] | | | | | | [address] | | | | + + + + + + | Sodium, POC | 138Comment: Testing | 135 - 145 mEq/L | EXTERNAL | | | | performed at [facility];[address] | | LAB | | | | [address];[place] | | | | | | [address] | | | | + + + + + + | Potassium, | 3.9Comment: Testing | 3.5 - 5.0 mEq/L | EXTERNAL | | | POC | performed at [facility];[address] | | LAB | | | | [address];[place] | | | | | | [address] | | | | + + + + + + | Ionized | 1.22Comment: Testing | 1.12 - 1.32 | EXTERNAL | | | Calcium, | performed at [facility];888 | mmol/L | LAB | | | POC | [address];[place] | | | | | | [address] | | | | + + + + + + | Glucose, | 146 (H)Comment: Testing | 65 - 99 mg/dL | EXTERNAL | | | POC | performed at [facility];[address] | | LAB | | | | [address];[place] | | | | | | [address] | | | | + + + + + + | Hematocrit, | 36Comment: Testing | 35.0 - 46.0 % | EXTERNAL | | | POC | performed at [facility];[address] | | LAB | | | | [address];[place] | | | | | | [address] | | | | + + + + + + | Hemoglobin, | 12.2Comment: Testing | 11.6 - 15.5 | EXTERNAL | | | POC | performed at [facility];888 | g/dL | LAB | | | | [address];[place] | | | | | | [address] | | | | + + + + + + + + | Specimen | + + | | + + + +---------+ + + | Performing | Address | City/State/Zipcode | Phone Number | | Organization | | | | + +---------+ + + | EXTERNAL LAB | | | | + +---------+ + + POC Glucose (12/09/2013 5:27 AM PDT) + + + + + + | Component | Value | Ref Range | Performed | Pathologist | | | | | At | Signature | + + + + + + | Glucose, | 201 (H)Comment: Testing | 65 - 99 mg/dL | EXTERNAL | | | Fingerstick | performed at [facility];[address] | | LAB | | | | [address];[place] | | | | | | [address] | | | | + + + + + + + + | Specimen | + + | | + + + +---------+ + + | Performing | Address | City/State/Zipcode | Phone Number | | Organization | | | | + +---------+ + + | EXTERNAL LAB | | | | + +---------+ + + CK-MB (12/09/2013 3:30 AM PDT) + + + + + -+ | Component | Value | Ref Range | Performed | Pathologist | | | | | At | Signature | + + + + + -+ | CK-MB | 32.4 (H)Comment: Testing | 0.5 - 3.6 ng/mL | EXTERNAL | | | | performed at [facility];[address] | | LAB | | | | [address];[place] | | | | | | [address] | | | | + + + + + -+ | CK-MB Index | 11.0Comment: CK INDEX | | EXTERNAL | | [...] | + +---------+ + + Troponin I (12/09/2013 3:30 AM PDT) + + + + + + | Component | Value | Ref Range | Performed | Pathologist | | | | | At | Signature | + + + + + + | Troponin I, | 8.08 ()Comment: 0.00 | 0.00 - 0.10 | [...] | | | | | | ACUTE [place] CKTRP PHONED TO | | | | | | 4RP KARENA AT 0440 BY | | | | | | LJREAD BACK RESULTS | | | | | | VERIFIEDTesting | | | | | | performed at [facility] | | | | | | [address];[place], [place] | | | | | | [address] | | | | + + + + + + + + | Specimen | + + | | + + + +---------+ + + | Performing | Address | City/State/Zipcode | Phone Number | | Organization | | | | + +---------+ + + | EXTERNAL LAB | | | | + +---------+ + + PTT (12/09/2013 3:30 AM PDT) + + + + + + | Component | Value | Ref Range | Performed | Pathologist | | | | | At | Signature | + + + + + + | aPTT, | 43 (H)Comment: Testing | 23 - 32 seconds | EXTERNAL | | | Patient | performed at [facility];[address] | | LAB | | | | [address];[place] | | | | | | [address] | | | | + + + + + + + + | Specimen | + + | | + + + +---------+ + + | Performing | Address | City/State/Zipcode | Phone Number | | Organization | | | | + +---------+ + + | EXTERNAL LAB | | | | + +---------+ + + External Lab: CBC (12/09/2013 3:30 AM PDT) + + + + + + | Component | Value | Ref Range | Performed | Pathologist | | | | | At | Signature | + + + + + + | WBC | 10.6Comment: Testing | 3.8 - 11.0 K/uL | EXTERNAL | | | | performed at [facility], [address] | | LAB | | | | [address], | | | | | | [place] [address] | | | | + + + + + + | RED CELL | 4.12Comment: Testing | 3.70 - 5.10 | EXTERNAL | | | COUNT | performed at [facility], [address] | M/uL | LAB | | | | [address], | | | | | | [place] [address] | | | | + + + + + + | Hgb | 12.9Comment: Testing | 11.3 - 15.5 | EXTERNAL | | | | performed at [facility], [address] | g/dL | LAB | | | | [address], | | | | | | [place] [address] | | | | + + + + + + | Hematocrit, | 39.4Comment: Testing | 34.0 - 46.0 % | EXTERNAL | | | POC | performed at [facility], [address] | | LAB | | | | [address], | | | | | | [place] [address] | | | | + + + + + + | MCV | 95.5Comment: Testing | 80.0 - 100.0 fl | EXTERNAL | | | | performed at [facility], [address] | | LAB | | | | [address], | | | | | | [place] [address] | | | | + + + + + + | MCH | 31.2Comment: Testing | 27.0 - 34.0 pg | EXTERNAL | | | | performed at [facility], [address] | | LAB | | | | [address], | | | | | | [place] [address] | | | | + + + + + + | MCHC | 32.7Comment: Testing | 32.0 - 35.5 | EXTERNAL | | | | performed at [facility], [address] | g/dL | LAB | | | | [address], | | | | | | [place] [address] | | | | + + + + + + | RDW-CV | 45.1Comment: Testing | 37 - 53 fl | EXTERNAL | | | | performed at [facility], [address] | | LAB | | | | [address], | | | | | | [place] [address] | | | | + + + + + + | Platelet | 194Comment: Testing | 150 - 400 K/uL | EXTERNAL | | | Count | performed at [facility], [address] | | LAB | | | Plasma | [address], | | | | | | [place] [address] | | | | + + + + + + | MPV | 8.3Comment: Testing | fl | EXTERNAL | | | | performed at [facility], [address] | | LAB | | | | [address], | | | | | | [place] [address] | | | | + + + + + + | Differentia | AUTOMATEDComment: | | EXTERNAL | | | l Type | Testing performed at | | LAB | | | | [facility], [address] [address] | | | | | | [place] | | | | | | [address] | | | | + + + + + + | % Segmented | 53.8Comment: Testing | % | EXTERNAL | | | | performed at [facility], [address] | | LAB | | | Neutrophils | [address], | | | | | | [place] [address] | | | | + + + + + + | % | 27.9Comment: Testing | % | EXTERNAL | | | Lymphocytes | performed at [facility], [address] | | LAB | | | | [address], | | | | | | [place] [address] | | | | + + + + + + | % Monocytes | 11.8Comment: Testing | % | EXTERNAL | | | | performed at [facility], [address] | | LAB | | | | [address], | | | | | | [place] [address] | | | | + + + + + + | % | 5.2Comment: Testing | % | EXTERNAL | | | Eosinophils | performed at [facility], [address] | | LAB | | | [address], | | | | | | [place] [address] | | | | + + + + + + | % Basophils | 1.3Comment: Testing | % | EXTERNAL | | | | performed at [facility], [address] | | LAB | | | | [address], | | | | | | [place] [address] | | | | + + + + + + | Absolute | 5.7Comment: Testing | 1.9 - 7.4 K/uL | EXTERNAL | | | Segmented | performed at [facility], [address] | | LAB | | | Neutrophils | [address], | | | | | | [place] [address] | | | | + + + + + + | Absolute | 3.0Comment: Testing | 1.0 - 3.9 K/uL | EXTERNAL | | | Lymphocytes | performed at [facility], [address] | | LAB | | | | [address], | | | | | | [place] [address] | | | | + + + + + + | Absolute | 1.2 (H)Comment: Testing | 0 - 0.8 K/uL | EXTERNAL | | | Monocytes | performed at [facility], [address] | | LAB | | | | [address], | | | | | | [place] [address] | | | | + + + + + + | Absolute | 0.6 (H)Comment: Testing | 0 - 0.5 K/uL | EXTERNAL | | | Eosinophils | performed at [facility], [address] | | LAB | | | | [address], | | | | | | [place] [address] | | | | + + + + + + | Absolute | 0.1Comment: Testing | 0 - 0.1 K/uL | EXTERNAL | | | Basophils | performed at [facility], [address] | | LAB | | | | [address], | | | | | | [place] [address] | | | | + + + + + + + + | Specimen | + + | Blood specimen | | (specimen) | + + + +---------+ + + | Performing | Address | City/State/Zipcode | Phone Number | | Organization | | | | + +---------+ + + | EXTERNAL LAB | | | | + +---------+ + + Phosphorus (12/09/2013 3:30 AM PDT) + + + + + + | Component | Value | Ref Range | Performed | Pathologist | | | | | At | Signature | + + + + + + | PHOSPHORUS | 3.6Comment: Testing | 2.3 - 4.8 mg/dL | EXTERNAL | | | | performed at [facility];[address] | | LAB | | | | [address];[place], [place] | | | | | | [address] | | | | + + + + + + + + | Specimen | + + | Blood specimen | | (specimen) | + + + +---------+ + + | Performing | Address | City/State/Zipcode | Phone Number | | Organization | | | | + +---------+ + + | EXTERNAL LAB | | | | + +---------+ + + Magnesium (12/09/2013 3:30 AM PDT) + + + + + + | Component | Value | Ref Range | Performed | Pathologist | | | | | At | Signature | + + + + + + | Magnesium | 1.7Comment: Testing | 1.7 - 2.4 mg/dL | EXTERNAL | | | | performed at [facility];[address] | | LAB | | | | [address];[place] | | | | | | [address] | | | | + + + + + + + + | Specimen | + + | Blood specimen | | (specimen) | + + + +---------+ + + | Performing | Address | City/State/Zipcode | Phone Number | | Organization | | | | + +---------+ + + | EXTERNAL LAB | | | | + +---------+ + + Hemoglobin A1C (12/09/2013 3:30 AM PDT) + + + + + + | Component | Value | Ref Range | Performed | Pathologist | | | | | At | Signature | + + + + + + | Hemoglobin | 6.4 (H)Comment: The | 4.0 - 6.0 % | EXTERNAL | | | A1c | [facility] | | LAB | | | | Association considers a | | | | | | hemoglobin A1c result of | | | | | | <7.0% to be the goal of | | | | | | diabetic therapy. | | | | | | When results are | | | | | | consistently >8.0%, the | | | | | | ADA suggests | | | | | [...] | | | | | performed at [facility], [address], | | | | | | [place] [address] | | | | + + + + + + | Glycohemogl | 137Comment: The ADA | mg/dL | EXTERNAL | [...] | | | | | performed at [facility], [address] | | | | | [address], | | | | | | [place] [address] | | | | + + + + + + + + | Specimen | + + | Blood specimen | | (specimen) | + + + +---------+ + + | Performing | Address | City/State/Zipcode | Phone Number | | Organization | | | | + +---------+ + + | EXTERNAL LAB | | | | + +---------+ + + CK Total (12/09/2013 3:30 AM PDT) + + + + + + | Component | Value | Ref Range | Performed | Pathologist | | | | | At | Signature | + + + + + + | CK, Total | 295 (H)Comment: Testing | 30 - 240 U/L | EXTERNAL | | | | performed at [facility];[address] | | LAB | | | | [address];[place] | | | | | | [address] | | | | + + + + + + + + | Specimen | + + | | + + + +---------+ + + | Performing | Address | City/State/Zipcode | Phone Number | | Organization | | | | + +---------+ + + | EXTERNAL LAB | | | | + +---------+ + + Comprehensive Metabolic Panel (12/09/2013 3:30 AM PDT) + + + + + + | Component | Value | Ref Range | Performed | Pathologist | | | | | At | Signature | + + + + + + | Na | 138Comment: Testing | 135 - 143 | EXTERNAL | | | | performed at [facility];[address] | mmol/L | LAB | | | | [address];[place] | | | | | | [address] | | | | + + + + + + | K | 3.7Comment: Testing | 3.5 - 4.9 | EXTERNAL | | | | performed at [facility];[address] | mmol/L | LAB | | | | [address];[place] | | | | | | [address] | | | | + + + + + + | Cl | 106Comment: Testing | 99 - 109 mmol/L | EXTERNAL | | | | performed at [facility];[address] | | LAB | | | | [address];[place] | | | | | | [address] | | | | + + + + + + | CO2 | 23Comment: Testing | 23 - 32 mmol/L | EXTERNAL | | | | performed at [facility];[address] | | LAB | | | | [address];[place] | | | | | | [address] | | | | + + + + + + | Anion Gap | 14Comment: Testing | 5 - 20 mmol/L | EXTERNAL | | | | performed at [facility];[address] | | LAB | | | | [address];[place] | | | | | | [address] | | | | + + + + + + | Glucose, | 143 (H)Comment: Testing | 65 - 99 mg/dL | EXTERNAL | | | Fasting | performed at [facility];[address] | | LAB | | | | [address];[place] | | | | | | [address] | | | | + + + + + + | BUN | 22Comment: Testing | 8 - 25 mg/dL | EXTERNAL | | | | performed at [facility];[address] | | LAB | | | | [address];[place] | | | | | | [address] | | | | + + + + + + | Creatinine | 1.20 (H)Comment: Testing | 0.50 - 1.00 | EXTERNAL | | | | performed at [facility];888 | mg/dL | LAB | | | | [address];[place] | | | | | | [address] | | | | + + + + + + | BUN/Creatin | 19Comment: Testing | | EXTERNAL | | | ine Ratio | performed at [facility];[address] | | LAB | | | | [address];[place] | | | | | | [address] | | | | + + + + + + | Calcium | 8.6Comment: Testing | 8.5 - 10.2 | EXTERNAL | | | | performed at [facility];888 | mg/dL | LAB | | | | [address];[place] | | | | | | [address] | | | | + + + + + + | Protein, | 6.1 (L)Comment: Testing | 6.3 - 8.2 g/dL | EXTERNAL | | | Total | performed at [facility];[address] | | LAB | | | | [address];[place] | | | | | | [address] | | | | + + + + + + | Albumin | 3.4Comment: Testing | 3.3 - 4.8 g/dL | EXTERNAL | | | | performed at [facility];[address] | | LAB | | | | [address];[place] | | | | | | [address] | | | | + + + + + + | Globulin | 2.7Comment: Testing | 1.3 - 4.9 g/dL | EXTERNAL | | | | performed at [facility];[address] | | LAB | | | | [address];[place] | | | | | | [address] | | | | + + + + + + | A/G Ratio | 1.2Comment: Testing | 1.0 - 2.4 | EXTERNAL | | | | performed at [facility];[address] | | LAB | | | | [address];[place] | | | | | | [address] | | | | + + + + + + | Bilirubin | 0.5Comment: Testing | 0.1 - 1.5 mg/dL | EXTERNAL | | | Total | performed at [facility];[address] | | LAB | | | | [address];[place] | | | | | | [address] | | | | + + + + + + | ALP, | 55Comment: Testing | 35 - 115 U/L | EXTERNAL | | | External | performed at [facility];[address] | | LAB | | | | [address];[place] | | | | | | [address] | | | | + + + + + + | AST | 67 (H)Comment: Testing | 10 - 45 U/L | EXTERNAL | | | | performed at [facility];[address] | | LAB | | | | [address];[place] | | | | | | [address] | | | | + + + + + + | ALT | 26Comment: Testing | 10 - 65 U/L | EXTERNAL | | | | performed at [facility];[address] | | LAB | | | | [address];[place] | | | | | | [address] | | | | + + + [...] | | | | | | at [facility];[address];[place] [address] | | | | + + + + + + + + | Specimen | + + | Blood specimen | | (specimen) | + + + +---------+ + + | Performing | Address | City/State/Zipcode | Phone Number | | Organization | | | | + +---------+ + + | EXTERNAL LAB | | | | + +---------+ + + POC Glucose (12/08/2013 10:09 PM PDT) + + + + + + | Component | Value | Ref Range | Performed | Pathologist | | | | | At | Signature | + + + + + + | Glucose, | 209 (H)Comment: Testing | 65 - 99 mg/dL | EXTERNAL | | | Fingerstick | performed at [facility];[address] | | LAB | | | | [address];[place], [place] | | | | | | [address] | | | | + + + + + + + + | Specimen | + + | | + + + +---------+ + + | Performing | Address | City/State/Zipcode | Phone Number | | Organization | | | | + +---------+ + + | EXTERNAL LAB | | | | + +---------+ + + MRSA NAAT (12/08/2013 9:39 PM PDT) + + | Specimen | + + | | + + + + + | Narrative | Performed At | + + + | SOURCE [facility]ARES(NOSE) | EXTERNAL LAB | | Testing performed at [facility];[address] [place] [address];[place] [address] MRSA PCR | | | NEGATIVE Testing performed at | | | [facility];[address] [place] [address];[place] [address] | | + + + + +---------+ + + | Performing | Address | City/State/Zipcode | Phone Number | | Organization | | | | + +---------+ + + | EXTERNAL LAB | | | | + +---------+ + + HISTORICAL LAB PANEL RESULT (12/08/2013 9:03 PM PDT) + + + + + -+ | Component | Value | Ref Range | Performed | Pathologist | | | | | At | Signature | + + + + + -+ | WBC | 11.8 (H)Comment: Testing | 3.8 - 11.0 K/uL | EXTERNAL | | | | performed at [facility], [address] | | LAB | | | | [address], | | | | | | [place] [address] | | | | + + + + + -+ | RED CELL | 4.23Comment: Testing | 3.70 - 5.10 | EXTERNAL | | | COUNT | performed at [facility], [address] | M/uL | LAB | | | | [address], | | | | | | [place] [address] | | | | + + + + + -+ | Hgb | 12.8Comment: Testing | 11.3 - 15.5 | EXTERNAL | | | | performed at [facility], [address] | g/dL | LAB | | | | [address], | | | | | | [place] [address] | | | | + + + + + -+ | Hematocrit, | 40.4Comment: Testing | 34.0 - 46.0 % | EXTERNAL | | | POC | performed at [facility], [address] | | LAB | | | | [address], | | | | | | [place] [address] | | | | + + + + + -+ | MCV | 95.5Comment: Testing | 80.0 - 100.0 fl | EXTERNAL | | | | performed at [facility], [address] | | LAB | | | | [address], | | | | | | [place] [address] | | | | + + + + + -+ | MCH | 30.2Comment: Testing | 27.0 - 34.0 pg | EXTERNAL | | | | performed at [facility], [address] | | LAB | | | | [address], | | | | | | [place] [address] | | | | + + + + + -+ | MCHC | 31.6 (L)Comment: Testing | 32.0 - 35.5 | EXTERNAL | | | | performed at [facility], [address] | g/dL | LAB | | | | [address], | | | | | | [place] [address] | | | | + + + + + -+ | RDW-CV | 44.2Comment: Testing | 37 - 53 fl | EXTERNAL | | | | performed at [facility], [address] | | LAB | | | | [address], | | | | | | [place] [address] | | | | + + + + + -+ | Platelet | 214Comment: Testing | 150 - 400 K/uL | EXTERNAL | | | Count | performed at [facility], [address] | | LAB | | | Plasma | [address], | | | | | | [place] [address] | | | | + + + + + -+ | MPV | 8.2Comment: Testing | fl | EXTERNAL | | | | performed at [facility], [address] | | LAB | | | | [address], | | | | | | [place] [address] | | | | + + + + + -+ | Differentia | AUTOMATEDComment: | | EXTERNAL | | | l Type | Testing performed at | | LAB | | | | [facility], [address] | | | | | | [place] | | | | | | [address] | | | | + + + + + -+ | % Segmented | 54.0Comment: Testing | % | EXTERNAL | | | | performed at [facility], [address] | | LAB | | | Neutrophils | [address], | | | | | | [place] [address] | | | | + + + + + -+ | % | 28.3Comment: Testing | % | EXTERNAL | | | Lymphocytes | performed at [facility], [address] | | LAB | | | | [address], | | | | | | [place] [address] | | | | + + + + + -+ | % Monocytes | 11.7Comment: Testing | % | EXTERNAL | | | | performed at [facility], [address] | | LAB | | | | [address], | | | | | | [place] [address] | | | | + + + + + -+ | % | 4.9Comment: Testing | % | EXTERNAL | | | Eosinophils | performed at [facility], [address] | | LAB | | | | [address], | | | | | | [place] [address] | | | | + + + + + -+ | % Basophils | 1.1Comment: Testing | % | EXTERNAL | | | | performed at [facility], [address] | | LAB | | | | [address], | | | | | | [place] [address] | | | | + + + + + -+ | Absolute | 6.4Comment: Testing | 1.9 - 7.4 K/uL | EXTERNAL | | | Segmented | performed at [facility], [address] | | LAB | | | Neutrophils | [address], | | | | | | [place] [address] | | | | + + + + + -+ | Absolute | 3.3Comment: Testing | 1.0 - 3.9 K/uL | EXTERNAL | | | Lymphocytes | performed at [facility], [address] | | LAB | | | | [address], | | | | | | [place] [address] | | | | + + + + + -+ | Absolute | 1.4 (H)Comment: Testing | 0 - 0.8 K/uL | EXTERNAL | | | Monocytes | performed at [facility], [address] | | LAB | | | | [address], | | | | | | [place] [address] | | | | + + + + + -+ | Absolute | 0.6 (H)Comment: Testing | 0 - 0.5 K/uL | EXTERNAL | | | Eosinophils | performed at [facility], [address] | | LAB | | | | [address], | | | | | | [place] [address] | | | | + + + + + -+ | Absolute | 0.1Comment: Testing | 0 - 0.1 K/uL | EXTERNAL | | | Basophils | performed at [facility], [address] | | LAB | | | | [address], | | | | | | [place] [address] | | | | + + + + + -+ | Na | 133 (L)Comment: Testing | 135 - 143 | EXTERNAL | | | | performed at [facility], [address] | mmol/L | LAB | | | | [address], | | | | | | [place] [address] | | | | + + + + + -+ | K | 3.7Comment: Testing | 3.5 - 4.9 | EXTERNAL | | | | performed at [facility], [address] | mmol/L | LAB | | | | [address], | | | | | | [place] [address] | | | | + + + + + -+ | Cl | 105Comment: Testing | 99 - 109 mmol/L | EXTERNAL | | | | performed at [facility], [address] | | LAB | | | | [address], | | | | | | [place] [address] | | | | + + + + + -+ | CO2 | 25Comment: Testing | 23 - 32 mmol/L | EXTERNAL | | | | performed at [facility], [address] | | LAB | | | | [address], | | | | | | [place] [address] | | | | + + + + + -+ | Anion Gap | 7Comment: Testing | 5 - 20 mmol/L | EXTERNAL | | | | performed at [facility], [address] | | LAB | | | | [address], | | | | | | [place] [address] | | | | + + + + + -+ | Glucose, | 177 (H)Comment: Testing | 65 - 99 mg/dL | EXTERNAL | | | Fasting | performed at [facility], [address] | | LAB | | | | [address], | | | | | | [place] [address] | | | | + + + + + -+ | BUN | 24Comment: Testing | 8 - 25 mg/dL | EXTERNAL | | | | performed at [facility], [address] | | LAB | | | | [address], | | | | | | [place] [address] | | | | + + + + + -+ | Creatinine | 1.24 (H)Comment: Testing | 0.50 - 1.00 | EXTERNAL | | | | performed at [facility], [address] | mg/dL | LAB | | | | [address], | | | | | | [place] [address] | | | | + + + + + -+ | BUN/Creatin | 19Comment: Testing | | EXTERNAL | | | ine Ratio | performed at [facility], [address] | | LAB | | | | [address], | | | | | | [place] [address] | | | | + + + + + -+ | Calcium | 9.4Comment: Testing | 8.5 - 10.2 | EXTERNAL | | | | performed at [facility], [address] | mg/dL | LAB | | | | [address], | | | | | | [place] [address] | | | | + + + + + -+ | Protein, | 6.5Comment: Testing | 6.3 - 8.2 g/dL | EXTERNAL | | | Total | performed at [facility], [address] | | LAB | | | | [address], | | | | | | [place] [address] | | | | + + + + + -+ | Albumin | 3.9Comment: Testing | 3.3 - 4.8 g/dL | EXTERNAL | | | | performed at [facility], [address] | | LAB | | | | [address], | | | | | | [place] [address] | | | | + + + + + -+ | Globulin | 2.6Comment: Testing | 1.3 - 4.9 g/dL | EXTERNAL | | | | performed at [facility], [address] | | LAB | | | | [address], | | | | | | [place] [address] | | | | + + + + + -+ | A/G Ratio | 1.5Comment: Testing | 1.0 - 2.4 | EXTERNAL | | | | performed at [facility], [address] | | LAB | | | | [address], | | | | | | [place] [address] | | | | + + + + + -+ | Bilirubin | 0.5Comment: Testing | 0.1 - 1.5 mg/dL | EXTERNAL | | | Total | performed at [facility], [address] | | LAB | | | | [address], | | | | | | [place] [address] | | | | + + + + + -+ | ALP, | 50Comment: Testing | 35 - 115 U/L | EXTERNAL | | | External | performed at [facility], [address] | | LAB | | | | [address], | | | | | | [place] [address] | | | | + + + + + -+ | AST | 62 (H)Comment: Testing | 10 - 45 U/L | EXTERNAL | | | | performed at [facility], [address] | | LAB | | | | [address], | | | | | | [place] [address] | | | | + + + + + -+ | ALT | 19Comment: Testing | 10 - 65 U/L | EXTERNAL | | | | performed at [facility], [address] | | LAB | | | | [address], | | | | | | [place] [address] | | | | + + + + + -+ | Estimated | 44 (L)Comment: GFR <60: [...] | | | | | | at [facility], [address] | | | | | | [facility], | | | | | | [place] [address] | | | | + + + + + -+ | CK, Total | 384 (H)Comment: Testing | 30 - 240 U/L | EXTERNAL | | | | performed at [facility];[address] | | LAB | | | | [facility];[place], [place] | | | | | | [address] | | | | + + + + + -+ | INR | 1.1Comment: REFERENCE | | EXTERNAL | | | [...] | | | | | performed at [facility];[address] | | | | | | [address];[place] | | | | | | [address] | | | | + + + + + -+ | aPTT, | 44 (H)Comment: Testing | 23 - 32 seconds | EXTERNAL | | | Patient | performed at [facility];[address] | | LAB | | | | [address];[place] | | | | | | [address] | | | | + + + + + -+ | CK-MB | 48.3 (H)Comment: Testing | 0.5 - 3.6 ng/mL | EXTERNAL | | | | performed at [facility];[address] | | LAB | | | | [address];[place] | | | | | | [address] | | | | + + + + + -+ | CK-MB Index | 12.6Comment: CK INDEX | | EXTERNAL | | [...] | | | + +---------+ + + VAS Lower Extremity Vein Mapping Bilat (12/08/2013 6:43 PM PDT) + + | Specimen | + + | | + + + + + | Impressions | Performed At | + + + | 1. Superficial venous system on the right seems sufficient for | | | harvesting above the knee, with the vessel below, smaller than 3 mm | | | 2. Superficial venous system on the left seems sufficient for | | | harvesting above the knee, with vessel below, smaller than 3 mm | | | Would correlate with individual surgical protocol for this individual | | | patient Electronically signed by Thomas Mccord MD on | | | 12/08/2013 6:51 PM | | + + + + + + | Narrative | Performed At | + + + | History: 83-year-old female, preoperative. Requires vein mapping | | | Technique: Ultrasound of the bilateral lower extremity superficial | | | systems. Prior study: None Findings: EVALUATION OF THE | | | RIGHT: SJF : 5.9 mm, 11.5 mm from the skin surface HIGH THIGH: | | | 3.4 mm, 14.4 mm from the skin surface MID THIGH: 3.4 mm, 15.4 mm | | | from the skin surface LOW THIGH: 3.5 mm, 11.2 mm from the skin | | | surface KNEE: 3.2 mm, 10.7 mm from the skin surface HIGH CALF: | | | 2.4 mm, 12.6 mm from the skin surface MID CALF: 2.1 mm, 8.6 mm | | | from the skin surface LOW CALF: 1.6 mm, 7.3 mm from the skin | | | surface EVALUATION OF LEFT: SJF : 5 mm, 13 mm from the skin | | | surface HIGH THIGH: 4.6 mm, 13.7 mm from the skin surface MID | | | THIGH: 3 mm, 13.7 mm from the skin surface LOW THIGH: 3.6 mm, 20 mm | | | from the skin surface KNEE: 3.2 mm, 16 mm from the skin surface | | | HIGH CALF 3 mm, 14 mm from the skin surface MID CALF: 2.2 mm, 8.6 mm | | | from the skin surface LOW CALF: 2.1 mm, 8 mm from the skin surface | | | All segments compressible. | | + + + + + | Procedure Note | + + | César Hawkins Conversion - 11/26/2018 3:41 PM PDT History: 83-year-old female, | | preoperative. Requires vein mapping Technique: Ultrasound of the bilateral lower | | extremity superficial systems.Prior study: None Findings: EVALUATION OF THE RIGHT: SJF : | | 5.9 mm, 11.5 mm from the skin surfaceHIGH THIGH: 3.4 mm, 14.4 mm from the skin | | surfaceMID THIGH: 3.4 mm, 15.4 mm from the skin surfaceLOW THIGH: 3.5 mm, 11.2 mm from | | the skin surfaceKNEE: 3.2 mm, 10.7 mm from the skin surface HIGH CALF: 2.4 mm, 12.6 | | mm from the skin surfaceMID CALF: 2.1 mm, 8.6 mm from the skin surfaceLOW CALF: 1.6 | | mm, 7.3 mm from the skin surface EVALUATION OF LEFT: SJF : 5 mm, 13 mm from the skin | | surfaceHIGH THIGH: 4.6 mm, 13.7 mm from the skin surfaceMID THIGH: 3 mm, 13.7 mm from | | the skin surfaceLOW THIGH: 3.6 mm, 20 mm from the skin surfaceKNEE: 3.2 mm, 16 mm from | | the skin surface HIGH CALF 3 mm, 14 mm from the skin surfaceMID CALF: 2.2 mm, 8.6 mm | | from the skin surfaceLOW CALF: 2.1 mm, 8 mm from the skin surface All segments | | compressible. IMPRESSION: 1. Superficial venous system on the right seems sufficient | | for harvesting above the knee, with the vessel below, smaller than 3 mm 2. Superficial | | venous system on the left seems sufficient for harvesting above the knee, with vessel | | below, smaller than 3 mm Would correlate with individual surgical protocol for this | | individual patient | |MID CALF: 2.1 mm, 8.6 mm from the skin surface | |LOW CALF: 1.6 mm, 7.3 mm from the skin surface | | | |EVALUATION OF LEFT: | | | |SJF : 5 mm, 13 mm from the skin surface | |HIGH THIGH: 4.6 mm, 13.7 mm from the skin surface | |MID THIGH: 3 mm, 13.7 mm from the skin surface | |LOW THIGH: 3.6 mm, 20 mm from the skin surface | |KNEE: 3.2 mm, 16 mm from the skin surface | | | |HIGH CALF 3 mm, 14 mm from the skin surface | |MID CALF: 2.2 mm, 8.6 mm from the skin surface | |LOW CALF: 2.1 mm, 8 mm from the skin surface | | | |All segments compressible. | | | |IMPRESSION: | | | |1. Superficial venous system on the right seems sufficient for harvesting above the knee, w ith the vessel below, smaller than 3 mm | | | |2. Superficial venous system on the left seems sufficient for harvesting above the knee, wi th vessel below, smaller than 3 mm | | | |Would correlate with individual surgical protocol for this individual patient | | | | | + + VAS Carotid Duplex Bilateral (12/08/2013 6:39 PM PDT) + + | Specimen | + + | | + + + + + | Impressions | Performed At | + + + | 1. Atherosclerotic vascular disease, but no evidence of | | | left-sided stenosis 2. Tortuous distal right ICA may be | | | confounding, but on the base of velocity elevations-cannot exclude | | | narrowing between 50 and 69%, although probably in the lower portion | | | of that spectrum Grades: 1 Stenosis =01-30% PSV <125 | | | cm/sec EDV (cm/s)<40 cm/sec (mild plaque) 2 Stenosis | | | =31-50% PSV <125 cm/sec EDV (cm/s)<40 cm/sec (moderate | | | plaque) 3 Stenosis =50-69% PSV >125 cm/sec EDV | | | (cm/s)>40 cm/sec 4 Stenosis =70-95% PSV >230 cm/sec | | | EDV (cm/s)>100 cm/sec 5 Stenosis =90-95% PSV <125 | | | cm/sec EDV (cm/s)<40 cm/sec 6 Stenosis Occluded | | | | | | PM | | + + + + + + | Narrative | Performed At | + + + | HISTORY:83-year-old female with a vasculopathy, needs preoperative | | | evaluation TECHNIQUE: Ultrasound of the carotid and vertebral | | | artery systems. Duplex examination with interrogation with color flow | | | and waveforms with Doppler technique Prior study for comparison, | | | none. FINDINGS: Analysis of the right. Proximal CCA -- 46 | | | Distal CCA -- 51 Proximal ICA -- 47 Mid ICA -- 54 Distal ICA -- | | | 134 Proximal ECA -- 293 Antegrade vertebral artery flow is | | | identified -- 34 Analysis of the left. Proximal CCA -- 59 | | | Distal CCA -- 64 Proximal ICA -- 69 Mid ICA -- 59 Distal ICA -- 50 | | | Proximal ECA -- 74 Antegrade vertebral artery flow is identified | | | -- 36 All measurements are in cm/sec. Diastolic elevations of 42 | | | cm/s, distal right ICA Wave forms are normal in rate and rhythm and | | | appearance. Vessel is tortuous. Distal right ICA waveforms seen fairly | | | normal on image 26. On visual inspection, vessels demonstrate | | | there is some plaque of both carotid bulbs.. True duplex examination | | | documenting normal spectral analysis as well as color flow as expected | | | for the arterial structures of the neck. | | + + + + + | Procedure Note | + + | Ross, Rad Conversion - 11/26/2018 3:41 PM PDT HISTORY:83-year-old female with a | | vasculopathy, needs preoperative evaluation TECHNIQUE: Ultrasound of the carotid and | | vertebral artery systems. Duplex examination with interrogation with color flow and | | waveforms with Doppler techniquePrior study for comparison, none. FINDINGS: Analysis of | | the right. Proximal CCA -- 46Distal CCA -- 51Proximal ICA -- 47Mid ICA -- 54Distal ICA | | -- 134Proximal ECA -- 293 Antegrade vertebral artery flow is identified -- 34 Analysis | | of the left. Proximal CCA -- 59Distal CCA -- 64Proximal ICA -- 69Mid ICA -- 59Distal ICA | | -- 50Proximal ECA -- 74 Antegrade vertebral artery flow is identified -- 36 All | | measurements are in cm/sec. Diastolic elevations of 42 cm/s, distal right ICAWave forms | | are normal in rate and rhythm and appearance. Vessel is tortuous. Distal right ICA | | waveforms seen fairly normal on image 26. On visual inspection, vessels demonstrate | | there is some plaque of both carotid bulbs.. True duplex examination documenting normal | | spectral analysis as well as color flow as expected for the arterial structures of the | | neck. IMPRESSION: 1. Atherosclerotic vascular disease, but no evidence of left-sided | | stenosis 2. Tortuous distal right ICA may be confounding, but on the base of velocity | | elevations-cannot exclude narrowing between 50 and 69%, although probably in the lower | | portion of that spectrum Grades:1 Stenosis =01-30% PSV <125 cm/sec EDV | | (cm/s)<40 cm/sec (mild plaque)2 Stenosis =31-50% PSV <125 cm/sec EDV | | (cm/s)<40 cm/sec (moderate plaque)3 Stenosis =50-69% PSV >125 cm/sec EDV | | (cm/s)>40 cm/sec4 Stenosis =70-95% PSV >230 cm/sec EDV (cm/s)>100 cm/sec5 | | Stenosis =90-95% PSV <125 cm/sec EDV (cm/s)<40 cm/sec6 Stenosis | | Occluded | |Proximal ICA -- 69 | |Mid ICA -- 59 | |Distal ICA -- 50 | |Proximal ECA -- 74 | | | |Antegrade vertebral artery flow is identified -- 36 | | | |All measurements are in cm/sec. Diastolic elevations of 42 cm/s, distal right ICA | |Wave forms are normal in rate and rhythm and appearance. Vessel is tortuous. Distal right I CA waveforms seen fairly normal on image 26. | | | |On visual inspection, vessels demonstrate there is some plaque of both carotid bulbs.. True duplex examination documenting normal spectral analysis as well as color flow as expected f or the arterial structures of the neck. | | | |IMPRESSION: | | | |1. Atherosclerotic vascular disease, but no evidence of left-sided stenosis | | | |2. Tortuous distal right ICA may be confounding, but on the base of velocity elevations-can not exclude narrowing between 50 and 69%, although probably in the lower portion of that spe ctrum | | | |Grades: | |1 Stenosis =01-30% PSV <125 cm/sec EDV (cm/s)<40 cm/sec (mild plaque) | |2 Stenosis =31-50% PSV <125 cm/sec EDV (cm/s)<40 cm/sec (moderate plaque) | |3 Stenosis =50-69% PSV >125 cm/sec EDV (cm/s)>40 cm/sec | |4 Stenosis =70-95% PSV >230 cm/sec EDV (cm/s)>100 cm/sec | |5 Stenosis =90-95% PSV <125 cm/sec EDV (cm/s)<40 cm/sec | |6 Stenosis Occluded | | | | | | | | | + + CK-MB (12/08/2013 1:40 PM PDT) + + + + + -+ | Component | Value | Ref Range | Performed | Pathologist | | | | | At | Signature | + + + + + -+ | CK-MB | 46.9 (H)Comment: Testing | 0.5 - 3.6 ng/mL | EXTERNAL | | | | performed at [facility];[address] | [address] | | | | [address];[place], [place] | | | | | | [id number] | | | | + + + + + -+ | CK-MB Index | 14.2Comment: CK INDEX | | EXTERNAL | | [...] | | + +---------+ + + PTT (12/08/2013 1:40 PM PDT) + + + + + + | Component | Value | Ref Range | Performed | Pathologist | | | | | At | Signature | + + + + + + | aPTT, | 24Comment: Testing | 23 - 32 seconds | EXTERNAL | | | Patient | performed at [facility];[address] | | LAB | | | | [facility];[place], [place] | | | | | | [id number] | | | | + + + + + + + + | Specimen | + + | Blood specimen | | (specimen) | + + + +---------+ + + | Performing | Address | City/State/Zipcode | Phone Number | | Organization | | | | + +---------+ + + | EXTERNAL LAB | | | | + +---------+ + + [facility] INR (12/08/2013 1:40 PM PDT) + + + + + + | Component | Value | Ref Range | Performed | Pathologist | | | | | At | Signature | + + + + + + | INR | 1.1Comment: REFERENCE | | EXTERNAL | | | [...] | | | | | performed at [facility];[address] | | | | | | [address];[place], [place] | | | | | | [phone] | | | | + + + [...] + +---------+ + + External Lab: CBC (12/08/2013 1:40 PM PDT) + + + + + + | Component | Value | Ref Range | Performed | Pathologist | | | | | At | Signature | + + + + + + | WBC | 10.6Comment: Testing | 3.8 - 11.0 K/uL | EXTERNAL | | | | performed at [facility];[address] | | LAB | | | | [address];[place] | | | | | | [address] | | | | + + + + + + | RED CELL | 4.22Comment: Testing | 3.70 - 5.10 | EXTERNAL | | | COUNT | performed at [facility];888 | M/uL | LAB | | | | [address];[place] | | | | | | [address] | | | | + + + + + + | Hgb | 13.4Comment: Testing | 11.3 - 15.5 | EXTERNAL | | | | performed at [facility];888 | g/dL | LAB | | | | [address];[place] | | | | | | [address] | | | | + + + + + + | Hematocrit, | 38.7Comment: Testing | 34.0 - 46.0 % | EXTERNAL | | | POC | performed at [facility];[address] | | LAB | | | | [address];[place] | | | | | | [address] | | | | + + + + + + | MCV | 91.7Comment: Testing | 80.0 - 100.0 fl | EXTERNAL | | | | performed at [facility];[address] | | LAB | | | | [address];[place] | | | | | | [address] | | | | + + + + + + | MCH | 31.8Comment: Testing | 27.0 - 34.0 pg | EXTERNAL | | | | performed at [facility];[address] | | LAB | | | | [address];[place] | | | | | | [address] | | | | + + + + + + | MCHC | 34.7Comment: Testing | 32.0 - 35.5 | EXTERNAL | | | | performed at [facility];888 | g/dL | LAB | | | | [address];[place] | | | | | | [address] | | | | + + + + + + | RDW-CV | 42.9Comment: Testing | 37 - 53 fl | EXTERNAL | | | | performed at [facility];[address] | | LAB | | | | [address];[place] | | | | | | [address] | | | | + + + + + + | Platelet | 238Comment: Testing | 150 - 400 K/uL | EXTERNAL | | | Count | performed at [facility];[address] | | LAB | | | Plasma | [address];[place] | | | | | | [address] | | | | + + + + + + | MPV | 8.0Comment: Testing | fl | EXTERNAL | | | | performed at [facility];[address] | | LAB | | | | [address];[place] | | | | | | [address] | | | | + + + + + + | Differentia | AUTOMATEDComment: | | EXTERNAL | | | l Type | Testing performed at | | LAB | | | | [facility];[address] | | | | | | [address];[place] [address] | | | | + + + + + + | % Segmented | 49.1Comment: Testing | % | EXTERNAL | | | | performed at [facility];[address] | | LAB | | | Neutrophils | [address];[place] | | | | | | [address] | | | | + + + + + + | % | 34.0Comment: Testing | % | EXTERNAL | | | Lymphocytes | performed at [facility];[address] | | LAB | | | | [address];[place] | | | | | | [address] | | | | + + + + + + | % Monocytes | 11.9Comment: Testing | % | EXTERNAL | | | | performed at [facility];[address] | | LAB | | | | [address];[place] | | | | | | [address] | | | | + + + + + + | % | 4.3Comment: Testing | % | EXTERNAL | | | Eosinophils | performed at [facility];[address] | | LAB | | | | [address];[place] | | | | | | [address] | | | | + + + + + + | % Basophils | 0.7Comment: Testing | % | EXTERNAL | | | | performed at [facility];[address] | | LAB | | | | [address];[place] | | | | | | [address] | | | | + + + + + + | Absolute | 5.2Comment: Testing | 1.9 - 7.4 K/uL | EXTERNAL | | | Segmented | performed at [facility];[address] | | LAB | | | Neutrophils | [address];[place] | | | | | | [address] | | | | + + + + + + | Absolute | 3.6Comment: Testing | 1.0 - 3.9 K/uL | EXTERNAL | | | Lymphocytes | performed at [facility];[address] | | LAB | | | | [address];[place] | | | | | | [address] | | | | + + + + + + | Absolute | 1.3 (H)Comment: Testing | 0 - 0.8 K/uL | EXTERNAL | | | Monocytes | performed at [facility];[address] | | LAB | | | | [address];[place] | | | | | | [address] | | | | + + + + + + | Absolute | 0.5Comment: Testing | 0 - 0.5 K/uL | EXTERNAL | | | Eosinophils | performed at [facility];[address] | | LAB | | | | [address];[place] | | | | | | [address] | | | | + + + + + + | Absolute | 0.1Comment: Testing | 0 - 0.1 K/uL | EXTERNAL | | | Basophils | performed at [facility];[address] | | LAB | | | | [address];[place], [place] | | | | | | [address] | | | | + + + + + + + + | Specimen | + + | | + + + +---------+ + + | Performing | Address | City/State/Zipcode | Phone Number | | Organization | | | | + +---------+ + + | EXTERNAL LAB | | | | + +---------+ + + CK Total (12/08/2013 1:40 PM PDT) + + + + + + | Component | Value | Ref Range | Performed | Pathologist | | | | | At | Signature | + + + + + + | CK, Total | 330 (H)Comment: Testing | 30 - 240 U/L | EXTERNAL | | | | performed at [facility] | | LAB | | | | [address];[place] | | | | | | [address] | | | | + + + + + + + + | Specimen | + + | | + + + +---------+ + + | Performing | Address | City/State/Zipcode | Phone Number | | Organization | | | | + +---------+ + + | EXTERNAL LAB | | | | + +---------+ + + Comprehensive Metabolic Panel (12/08/2013 1:40 PM PDT) + + + + + + | Component | Value | Ref Range | Performed | Pathologist | | | | | At | Signature | + + + + + + | Na | 141Comment: Testing | 135 - 143 | EXTERNAL | | | | performed at [facility];888 | mmol/L | LAB | | | | [address];[place] | | | | | | [address] | | | | + + + + + + | K | 4.0Comment: Testing | 3.5 - 4.9 | EXTERNAL | | | | performed at [facility];888 | mmol/L | LAB | | | | [address];[place] | | | | | | [address] | | | | + + + + + + | Cl | 109Comment: Testing | 99 - 109 mmol/L | EXTERNAL | | | | performed at [facility];[address] | | LAB | | | | [address];[place] | | | | | | [address] | | | | + + + + + + | CO2 | 23Comment: Testing | 23 - 32 mmol/L | EXTERNAL | | | | performed at [facility];[address] | | LAB | | | | [address];[place] | | | | | | [address] | | | | + + + + + + | Anion Gap | 13Comment: Testing | 5 - 20 mmol/L | EXTERNAL | | | | performed at [facility];[address] | | LAB | | | | [address];[place] | | | | | | [address] | | | | + + + + + + | Glucose, | 111 (H)Comment: Testing | 65 - 99 mg/dL | EXTERNAL | | | Fasting | performed at [facility];[address] | | LAB | | | | [address];[place] | | | | | | [address] | | | | + + + + + + | BUN | 23Comment: Testing | 8 - 25 mg/dL | EXTERNAL | | | | performed at [facility];[address] | | LAB | | | | [address];[place] | | | | | | [address] | | | | + + + + + + | Creatinine | 1.08 (H)Comment: Testing | 0.50 - 1.00 | EXTERNAL | | | | performed at [facility];[address] | mg/dL | LAB | | | | [address];[place] | | | | | | [address] | | | | + + + + + + | BUN/Creatin | 21Comment: Testing | | EXTERNAL | | | ine Ratio | performed at [facility];[address] | | LAB | | | | [address];[place] | | | | | | [address] | | | | + + + + + + | Calcium | 9.5Comment: Testing | 8.5 - 10.2 | EXTERNAL | | | | performed at [facility];[address] | mg/dL | LAB | | | | [address];[place] | | | | | | [address] | | | | + + + + + + | Protein, | 6.8Comment: Testing | 6.3 - 8.2 g/dL | EXTERNAL | | | Total | performed at [facility];[address] | | LAB | | | | [address];[place] | | | | | | [address] | | | | + + + + + + | Albumin | 3.6Comment: Testing | 3.3 - 4.8 g/dL | EXTERNAL | | | | performed at [facility];[address] | | LAB | | | | [address];[place] | | | | | | [address] | | | | + + + + + + | Globulin | 3.2Comment: Testing | 1.3 - 4.9 g/dL | EXTERNAL | | | | performed at [facility];[address] | | LAB | | | | [address];[place] | | | | | | [address] | | | | + + + + + + | A/G Ratio | 1.1Comment: Testing | 1.0 - 2.4 | EXTERNAL | | | | performed at [facility];[address] | | LAB | | | | [address];[place] | | | | | | [address] | | | | + + + + + + | Bilirubin | 0.5Comment: Testing | 0.1 - 1.5 mg/dL | EXTERNAL | | | Total | performed at [facility];[address] | | LAB | | | | [address];[place] | | | | | | [address] | | | | + + + + + + | ALP, | 62Comment: Testing | 35 - 115 U/L | EXTERNAL | | | External | performed at [facility];[address] | | LAB | | | | [address];[place] | | | | | | [address] | | | | + + + + + + | AST | 63 (H)Comment: Testing | 10 - 45 U/L | EXTERNAL | | | | performed at [facility];[address] | | LAB | | | | [address];[place] | | | | | | [address] | | | | + + + + + + | ALT | 27Comment: Testing | 10 - 65 U/L | EXTERNAL | | | | performed at [facility];[address] | | LAB | | | | [address];[place] | | | | | | [address] | | | | + + + + + + | Estimated | 52 (L)Comment: GFR <60: | mL/min/1.73m2 | EXTERNAL [...] | | | | | | at [facility];[address] | | | | [facility] [address] | | | | + + + [...] + | Diagnosis | + + | NSTEMI (non-ST elevated myocardial infarction) (HCC) Acute myocardial infarction, | | subendocardial infarction, episode of care unspecified | + + | DM (diabetes mellitus) (HCC) Type II or unspecified type diabetes mellitus without | | mention of complication, not stated as uncontrolled | + + | HTN (hypertension) Unspecified essential hypertension | + + | CAD (coronary artery disease) Coronary atherosclerosis of unspecified type of vessel, | | barrow or graft | + + documented in this encounter
--- OUTSIDE RECORDS SUMMARY | ~2019-03-06 | XMS | Encounter Summary ---
Demographics + + + | Address | [address] | | | [place] [address] | + + + | Home Phone [...] [place], [place] | | | | | [address] | | + + + + + | Rivka Palma | ECON | Unknown | | + + + + + | Geno Kendall | ECON | Unknown | | + + + + + Care Team Providers + +------+ + | Care Reheater Helper Name | Role | Phone | + +------+ + | Lorenzo Valdes MD | PCP | | + +------+ + Reason for Visit + + + | Reason | Comments | + + + | Breathing Problem | | + + + Encounter Details +--------+ + + + + | Date | Type | Department | Care Team | Description | +--------+ + + + + | 08/16/ | Telephone | [facility] | Brandon Terry | Breathing Problem | | 2013 | | PULMONARY [address] [place] [address] [address] | | | | | [place], | [place], [place] | | | | | [place] [address] | [address] | | | | | [phone] | | | +--------+ + + + [...] [place] | | | | | | [address] | | | | | | | [...] [place] | | | | | | [address] | | | | | | | | +--------+ + + + + documented as of this encounter Visit Diagnoses Not on filedocumented in this encounter"
--- OUTSIDE RECORDS SUMMARY | ~2019-03-06 | XMS | Encounter Summary ---
Demographics + + + | Address | [address] | | | [place] [address] | + + + | Home Phone | | + + + | Preferred Language | Unknown | + + + | Marital Status | | + + + | Samaritan Affiliation | 1041 | + + + | Race | Unknown | + + + | Ethnic Group | Unknown | + + + Author + + + | Author | [facility] | | | and [place] | + + + | Organization | [facility] | | [...] [place], [place] | | | | | [address] | | + + + + + | Rivka Palma | ECON | Unknown | | + + + + + | Geno Kendall | ECON | Unknown | | + + + + + Care Team Providers + +------+ + | Care Manager Supply Name | Role | Phone | + +------+ + | Lorenzo Valdes MD | PCP | | + +------+ + Encounter Details +--------+ + + + + | Date | Type | Department | Care Team | Description | +--------+ + + + + | 09/30/ | Orders Only | [facility] | Conversion | | | 2013 | | [address] | Transaction, | | | | | [address] | Provider Unknown | | | | | [place], [place] | [phone] | | | | | [address] | | | | | | [phone] | | | +--------+ + + + [...] [place] | | | | | | [address] | | | | | | | [...] [place] | | | | | | [address] | | | | | | | | +--------+ + + + + documented as of this encounter Procedures + +--------+ + + + | Procedure Name | Priori | Date/Time | Associated Diagnosis | Comments | | | ty | | | | + +--------+ + + + | SODIUM, URINE, | Routin | 09/30/2013 | | Results for this | | RANDOM | e | 2:45 PM | | procedure are in the | | | | PDT | | results section. | + +--------+ + + + | CREATININE, URINE, | Routin | 09/30/2013 | | Results for this | | RANDOM | e | 1:29 PM | | procedure are in the | | | | PDT | | results section. | + +--------+ + + + | DIGOXIN LEVEL | Routin | 09/30/2013 | | Results for this | | | e | 1:29 PM | | procedure are in the | | | | PDT | | results section. | + +--------+ + + + documented in this encounter Results Sodium, Urine, Random (09/30/2013 2:45 PM PDT) + +-------+ + + + | Component | Value | Ref Range | Performed | Pathologist | | | | | At | Signature | + +-------+ + + + | Sodium, | 65 | | EXTERNAL | | | Urine [...] + +---------+ + + Creatinine, Urine, Random (09/30/2013 1:29 PM PDT) + +-------+ + + + | Component | Value | Ref Range | Performed | Pathologist | | | | | At | Signature | + +-------+ + + + | Creatinine, | 31.71 | | EXTERNAL | | | 24H [...] | + +---------+ + + Digoxin Level (09/30/2013 1:29 PM PDT) + + + + + + | Component | Value | Ref Range | Performed | Pathologist | | | | | At | Signature | + + + + + + | Digoxin | 2.80 (A) | 0.8 - 2.0 | EXTERNAL | | | level | | | LAB | | + [...]
--- OUTSIDE RECORDS SUMMARY | ~2019-03-06 | XMS | Encounter Summary ---
Demographics + + + | Address | [address] | | | [place] [address] | + + + | Home Phone | | + + + | Preferred Language | Unknown | + + + | Marital Status | | + + + | Judaism Affiliation | 1041 | + + + | Race | Unknown | + + + | Ethnic Group | Unknown | + + + Author + + + | Author | [facility] | | | and [place] | + + + | Organization | [facility] | | | [...] [place], [place] | | | | | [address] | | + + + + + | Rivka Palma | ECON | Unknown | | + + + + + | Geno Kendall | ECON | Unknown | | + + + + + Care Team Providers + +------+ + | Care Morgue Keeper Name | Role | Phone | + +------+ + | Lorenzo Valdes MD | PCP | | + +------+ + Encounter Details +--------+ + + + + | Date | Type | Department | Care Team | Description | +--------+ + + + + | 01/03/ | Hospital | [facility] | Conversion | S/P CABG (coronary | | 2013 | Encounter | [facility] | Transaction, | artery bypass graft) | | | | [address] | Provider Unknown | | | | | [place] | | | | | | [address] | | | | | | [phone] | | | +--------+ + + + [...] [place] | | | | | | [address] | | | | | | | [...] [place] | | | | | | [address] | | | | | | | | +--------+ + + + + documented as of this encounter Procedures + +--------+ + + + | Procedure Name | Priori | Date/Time | Associated Diagnosis | Comments | | | ty | | | | + +--------+ + + + | XR CHEST 2 VIEWS | Routin | 01/03/2014 | | Results for this | | | e | 12:59 PM | | procedure are in the | | | | PDT | | results section. | + +--------+ + + + documented in this encounter Results XR Chest 2 Vws (01/03/2014 12:59 PM PDT) + + | Specimen | + + | | + + + + + | Impressions | Performed At | + + + | 1. Stable sternal wires, seemingly contiguous and associated with | | | the sternum on 2 projections 2. Interstitial edema is much | | | improved, but parenchymal lung disease, scarring and cardiomegaly | | | persist Electronically signed by Thomas Mccord MD on | | | 01/03/2014 1:18 PM | | + + + + + + | Narrative | Performed At | + + + | HISTORY: 83-year-old female, evaluate sternal wires TECHNIQUE: | | | 1. 2 view radiographic examination of the chest. Prior study for | | | review : 21 December 2013 FINDINGS: There are 8 midline | | | sternal cerclage wires which are associated with the sternum and | | | contiguous on the lateral view. When compared to prior imaging-these | | | are seemingly stable. The lateral film from 18 December 2013 is | | | compared Cardiomegaly. Vasculopathy. Fibrotic parenchymal lung | | | disease and some scarring noted with blunting of the posterior cost | | | phrenic angle. On the whole-globally improved and the interstitial | | | edema in particular is much less. | | + + + + + | Procedure Note | + + | Ross, Rad Conversion - 11/26/2018 3:41 PM PDT HISTORY: 83-year-old female, evaluate | | sternal wires TECHNIQUE: 1. 2 view radiographic examination of the chest.Prior study for | | review : 21 December 2013 FINDINGS: There are 8 midline sternal cerclage wires which | | are associated with the sternum and contiguous on the lateral view. When compared to | | prior imaging-these are seemingly stable. The lateral film from 18 December 2013 is | | compared Cardiomegaly. Vasculopathy. Fibrotic parenchymal lung disease and some scarring | | noted with blunting of the posterior cost phrenic angle. On the whole-globally improved | | and the interstitial edema in particular is much less. IMPRESSION: 1. Stable sternal | | wires, seemingly contiguous and associated with the sternum on 2 projections 2. | | Interstitial edema is much improved, but parenchymal lung disease, scarring and | | cardiomegaly persist | |Cardiomegaly. Vasculopathy. Fibrotic parenchymal lung disease and some scarring noted with blunting of the posterior cost phrenic angle. On the whole-globally improved and the interst itial edema in particular is much less. | | | |IMPRESSION: | | | |1. Stable sternal wires, seemingly contiguous and associated with the sternum on 2 projecti ons | | | |2. 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
--- OUTSIDE RECORDS SUMMARY | ~2019-03-06 | XMS | Encounter Summary ---
Demographics + + + | Address | [address] | | | [place] [address] | + + + | Home Phone | | + + + | Preferred Language | Unknown | + + + | Marital Status | | + + + | Evangelical Affiliation | 1041 | + + + | Race | Unknown | + + + | Ethnic Group | Unknown | + + + Author + + + | Author | [facility] | | | and [place] | + + + | Organization | [facility] | | | [...] [place], [place] | | | | | [address] | | + + + + + | Rivka Palma | ECON | Unknown | | + + + + + | Geno Kendall | ECON | Unknown | | + + + + + Care Team Providers + +------+ + | Care Sales Counselor Name | Role | Phone | + +------+ + | Lorenzo Valdes MD | PCP | | + +------+ + Encounter Details +--------+ + + + + | Date | Type | Department | Care Team | Description | +--------+ + + + + | 01/09/ | Orders Only | [facility] | Godfrey Monteiro MD | | | 2013 | | [place]PHROLOGY [place] | [address] [facility] | | | | | [address] [facility] | [place] | | | | | [place] | [address] | | | | | [address] | | | | | | [phone] | | | +--------+ + + + [...] [place] | | | | | | [address] | | | | | | | [...] [place] | | | | | | [address] | | | | | | | [...] | | | LAB | | | [place] | | | | | + +---------+ [...]
--- OUTSIDE RECORDS SUMMARY | ~2019-03-06 | XMS | Encounter Summary ---
Demographics + + + | Address | [address] | | | [place] [address] | + + + | Home Phone | | + + + | Preferred Language | Unknown | + + + | Marital Status | | + + + | Restorationism Affiliation | 1041 | + + + [...] [place], [place] | | | | | [address] | | + + + + + | Rivka Palma | ECON | Unknown | | + + + + + | Geno Kendall | ECON | Unknown | | + + + + + Care Team Providers + +------+ + | Care Chicken Hatchery Helper Name | Role | Phone | + +------+ + | Lorenzo Valdes MD | PCP | | + +------+ + Encounter Details +--------+ + + + + | Date | Type | Department | Care Team | Description | +--------+ + + + + | 09/27/ | Hospital | [facility] | Conversion | Diagnosis unknown | | 2018 | Encounter | [address] | Transaction, | | | | [address] | Provider Unknown | | | | | [place] | [phone] | | | | | [address] | | | | | | [phone] | | | +--------+ + + + [...] [place] | | | | | | [address] | | | | | | | [...] [place] | | | | | | [address] | | | | | | | [...]
--- OUTSIDE RECORDS SUMMARY | ~2019-03-06 | XMS | Clinical Summary ---
Demographics + + + | Address | [address] | | | [place] [address] | + + + | Home Phone | | + + + | Preferred Language | Unknown | + + + | Marital Status | | + + + | Buddhism Affiliation | 1041 | + + + | Race | Unknown | + + + | Ethnic Group | Unknown | + + + Author + + + | Author | [facility] | | | and [place] | + + + | Organization | [facility] | | [...] [place] | | | | | [address] | | + + + + + | Rivka Palma | ECON | Unknown | | + + + + + | Geno Kendall | ECON | Unknown | | + + + + + Care Team Providers + +------+ + | Care Waste Treatment Operator Name | Role | Phone | [...] + | Overview: Last Assessment & Plan: INDUSTRIAL RELATIONS ANALYST-D, managed by [facility]. 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 LV enlarged, [...] | | 2019 | on | | Pharmacy Teacher | order) | +--------+ + + + [...] + +-------+ + + | Daughter | Ajnice | Alive | | + +-------+ + [...] | | | | | [place] | | | | | | [address] | | | | | | | [...] | | | | | [place] | | | | | | [address] | | | | | | | [...] | 2019 | 5 / | | [id number]: Qty: 1 on | | | SPECIALTI [...] | | | | | by [facility] Outing Read Only, | | | | | | [facility] Rosalie (667), | | | | | | editor map LEAH ADAMS | | | | | [...] | + + + | Sue Rubio, Pharmacy Teacher 12/21/2018 9:36 Device | [facility] | | interrogation done by Kyara Mcleod Any events or changes listed in | | | office note. See device data attached to scheduled encounter for | | | additional details. sign builder: Sue Rubio, Device Clinic Tech | | [...] +--------+ +---------+--------+ | MEDICARE | MEDICA | [id number] | 07/13/19 | [phone] | | Medica | | | RE | | 02-Pre | 5 | | re | | | PART A | | sent | | | | | | AND B | | | | | | + +--------+ +--------+ +---------+--------+ | [employer] | MUTUAL | [id number] | 06/12/19 | [phone] | | Indemn | | | OF | | 12-Pre | 0 | | ity | | | [place] | | sent | | | | + +--------+ +--------+ +---------+--------+ | MEDICARE | MEDICA | [id number] | 07/13/19 | [phone] | | Medica | | | RE | | 02-Pre | 5 | | re | | | PART A | | sent | | | | | | AND B | | | | | | + +--------+ +--------+ +---------+--------+ | [employer] | MUTUAL | [id number] | 06/12/19 | [phone] | | Indemn | | | OF | | 12-Pre | 0 | | ity | | | [place] | | sent | | | | [...] pita | | | 8 (Home) | [address] | + +--------+ +--------+ + + | Tamiko Ireland | Person | Self | [birth year] | [address] | | | al/Fam | | [phone] | [phone] | [place], [place] | | | pita | | | 8 (Home) | [address] | + +--------+ +--------+ + + Advance Directives + + + + + | Type | Date Recorded | Patient | Explanation | | | | Natural Resources Faculty Member | | + + + + + | Power of | | | | | Parking Lot Chauffeur | | | | + + + + + | Advance | | | | | Directive | | | | + + + + +
--- OUTSIDE RECORDS SUMMARY | ~2019-03-06 | XMS | Encounter Summary ---
Demographics + + + | Address | [address] | | | [place] [address] | + + + | Home Phone | | + + + | Preferred Language | Unknown | + + + | Marital Status | | + + + | Anglican Affiliation | 1041 | + + + | Race | Unknown | + + + | Ethnic Group | Unknown | + + + Author + + + | Author | [facility] | | | and [place] | + + + | Organization | [facility] | | [...] [place] | | | | | [address] | | + + + + + | Rivka Palma | ECON | Unknown | | + + + + + | Geno Kendall | ECON | Unknown | | + + + + + Care Team Providers + +------+ + | Care Food Server Name | Role | Phone | + +------+ + | Carmen Schultz MD | PCP | | + +------+ + Encounter Details +--------+ + + + + | Date | Type | Department | Care Team | Description | +--------+ + + + + | 08/16/ | Orders Only | [facility] | Dorota Nicole, PAPERHANGER SUPERVISOR | | | 2014 | | PULMONARY [address] | | | | | | [place], | | | | | | [place] [address] | | | | | | [phone] | | | +--------+ + + + [...] [place] | | | | | | [address] | | | | | | | [...] [place] | | | | | | [id number] | | | | | | | | +--------+ + + + + documented as of this encounter Visit Diagnoses Not on filedocumented in this encounter"
--- OUTSIDE RECORDS SUMMARY | ~2019-03-06 | XMS | Encounter Summary ---
Demographics + + + | Address | [address] | | | [place] [address] | + + + | Home Phone | | + + + | Preferred Language | Unknown | + + + | Marital Status | | + + + | Druze Affiliation | 1041 | + + + | Race | Unknown | + + + | Ethnic Group | Unknown | + + + Author + + + | Author | [facility] | | | and [place] | + + + | Organization | [facility] | | | [...] [place], [place] | | | | | [address] | | + + + + + | Rivka Palma | ECON | Unknown | | + + + + + | Geno Kendall | ECON | Unknown | | + + + + + Care Team Providers + +------+ + | Care Railway Switchman Name | Role | Phone | + +------+ + | Lorenzo Valdes MD | PCP | | + +------+ + Encounter Details +--------+ + + + + | Date | Type | Department | Care Team | Description | +--------+ + + + + | 09/22/ | Orders Only | [facility] | Conversion | | | 2013 | | CARDIOLOGY [place] | Transaction, | | | | | [address] | Provider Unknown | | | | | [place], [place] | [phone] | | | | | [address] | | | | | | [phone] | | | +--------+ + + + [...] [place] | | | | | | [address] | | | | | | | [...] [place] | | | | | | [address] | | | | | | | | +--------+ + + + + documented as of this encounter Procedures + +--------+ + + + | Procedure Name | Priori | Date/Time | Associated Diagnosis | Comments | | | ty | | | | + +--------+ + + + | EXTERNAL LAB: CBC | Routin | 09/22/2013 | | Results for this | | | e | 11:30 AM | | procedure are in the | | | | PDT | | results section. | + +--------+ + + + | TSH | Routin | 09/22/2013 | | Results for this | | | e | 11:30 AM | | procedure are in the | | | | PDT | | results section. | + +--------+ + + + | B TYPE NATRIURETIC | Routin | 09/22/2013 | | Results for this | | PEPTIDE | e | 11:30 AM | | procedure are in the | | | | PDT | | results section. | + +--------+ + + + | COMPREHENSIVE | Routin | 09/22/2013 | | Results for this | | METABOLIC PANEL | e | 11:30 AM | | procedure are in the | | | | PDT | | results section. | + +--------+ + + + documented in this encounter Results External Lab: CBC (09/22/2013 11:30 AM PDT) + + + + + + | Component | Value | Ref Range | Performed | Pathologist | | | | | At | Signature | + + + + + + | WBC | 9.2 | 4.5 - 11.0 10 | EXTERNAL | | | | | | LAB | | + + + + + + | RED CELL | 4.45 | 3.8 - 5.1 10 | EXTERNAL | | | COUNT | | | LAB | | + + + + + + | Hgb | 14.4 | 12.0 - 16.0 | EXTERNAL | | | | | g/dL | LAB | | + + + + + + | Hematocrit, | 42.7 | 35 - 45 % | EXTERNAL | | | POC | | | LAB | | + + + + + + | MCV | 95.9 | 81 - 99 fL | EXTERNAL | | | | | | LAB | | + + + + + + | MCH | 32 | 27 - 33 pg | EXTERNAL | | | | | | LAB | | + + + + + + | MCHC | 34 | 30 - 36 g/dL | EXTERNAL | | | | | | LAB | | + + + + + + | Platelet | 263 | 140 - 440 K/ L | EXTERNAL | | | Count | | | LAB | | | Plasma | | | | | + + + + + + | RDW-CV | 14.0 | 10.5 - 15.0 % | EXTERNAL [...] + + + | % Segmented | 58.0 | 39 - 80 % | EXTERNAL | | | | | | LAB | | | Neutrophils | | | | | + + + + + + | % | 23.1 (A) | 24 - 44 % | EXTERNAL | | | Lymphocytes | | | LAB | | + + + + + + | % Monocytes | 13.1 (A) | 0 - 12 % | EXTERNAL | | | | | | LAB | | + + + + + + | % | 4.7 | 0 - 6 % | EXTERNAL [...] | | + +---------+ + + TSH (09/22/2013 11:30 AM PDT) + +-------+ + + + | Component | Value | Ref Range | Performed | Pathologist | | | | | At | Signature | + +-------+ + + + | TSI | 2.29 | 0.270 - 4.20 | EXTERNAL | | | | | uIU/mL | LAB | | + +-------+ + [...] +---------+ + + B Type Natriuretic Peptide (09/22/2013 11:30 AM PDT) + +---------+ + + + | Component | Value | Ref Range | Performed | Pathologist | | | | | At | Signature | + +---------+ + + + | BNP | 920 (A) | 0 - 100 pg/mL | [...] + +---------+ + + Comprehensive Metabolic Panel (09/22/2013 11:30 AM PDT) + + + + [...] + + + + | BUN | 41 (A) | 6 - 23 mg/dL | EXTERNAL | | | | | | LAB | | + + + + + + | Creatinine | 1.90 (A) | 0.70 - 1.11 | EXTERNAL | | | | | mg/dL | LAB | | + + + + + + | BUN/Creatin | 21.6 | 6.0 - 28.6 | EXTERNAL | | | ine Ratio | | | LAB | | + + + + + + | Calcium | 9.7 | 8.4 - 10.2 | EXTERNAL | | | | | mg/dL | LAB | | + + + + + + | Protein, | 6.7 | 6.0 - 8.0 g/dL | EXTERNAL | | | Total | | | LAB | | + + + + + + | Albumin | 4.1 | 3.5 - 5.0 | EXTERNAL | | | | | | LAB | | + + + + + + | Globulin | 2.6 | 1.8 - 3.5 | EXTERNAL | | | | | | LAB | | + + + + + + | A/G Ratio | 1.6 | 1.1 - 2.4 | EXTERNAL | | | | | | LAB | | + + + + + + | Bilirubin | 0.9 | 0.0 - 1.2 mg/dL | EXTERNAL | | | Total | | | LAB | | + + + + + + | ALP, | 64 | 30 - 128 | EXTERNAL | | | External | | | LAB | | + + + + + + | ALT | 20 | 7 - 52 U/L | EXTERNAL [...] + + + + | CO2 | 26 | 19 - 31 mmol/L | EXTERNAL | | | | | | LAB | | + + + + + + | Anion Gap | 15.3 | 7 - 21 mmol/L | EXTERNAL | | | | | | LAB | | + + + + + + | Estimated | 25 (A) | 60 mg/dL | EXTERNAL | [...]
--- OUTSIDE RECORDS SUMMARY | ~2019-03-06 | XMS | Encounter Summary ---
Demographics + + + | Address | [address] | | | [place] [address] | + + + | Home Phone | | + + + | Preferred Language | Unknown | + + + | Marital Status | | + + + | Bahai Affiliation | 1041 | + + + | Race | Unknown | + + + | Ethnic Group | Unknown | + + + Author + + + | Author | [facility] | | | and [place] | + + + | Organization | [facility] | [...] [place], [place] | | | | | [address] | | + + + + + | Rivka Palma | ECON | Unknown | | + + + + + | Geno Kendall | ECON | Unknown | | + + + + + Care Team Providers + +------+ + | Care Cyber Defense Incident Responder Name | Role | Phone | + +------+ + | Lorenzo Valdes MD | PCP | | + +------+ + Encounter Details +--------+ + + + + | Date | Type | Department | Care Team | Description | +--------+ + + + + | 09/27/ | Hospital | [facility] | Conversion | Diagnosis unknown | | 2018 | Encounter | CONVERSION [address] | Transaction, | | | | | [address] | Provider Unknown | | | | | [place] | [phone] | | | | | [address] | | | | | | [phone] | | | +--------+ + + + [...] [place] | | | | | | [address] | | | | | | | [...] [place] | | | | | | [address] | | | | | | | | +--------+ + + + + documented as of this encounter Procedures + +--------+ + + + | Procedure Name | Priori | Date/Time | Associated Diagnosis | Comments | | | ty | | | | + +--------+ + + + | CT CHEST HIGH | Routin | 09/27/2017 | | Results for this | | RESOLUTION WO | e | 8:19 PM | | procedure are in the | | CONTRAST | | PDT | | results section. | + +--------+ + + + documented in this encounter Results CT Chest High Resolution WO Contrast (09/27/2017 8:19 PM PDT) + + | Specimen | [...]
--- OUTSIDE RECORDS SUMMARY | ~2019-03-06 | XMS | Encounter Summary ---
Demographics + + + | Address | [address] | | | [place] [address] | + + + | Home Phone | | + + + | Preferred Language | Unknown | + + + | Marital Status | | + + + | Gnosticist Affiliation | 1041 | + + + [...] [place], [place] | | | | | [address] | | + + + + + | Rivka Palma | ECON | Unknown | | + + + + + | Geno Kendall | ECON | Unknown | | + + + + + Care Team Providers + +------+ + | Care Gas Engine Operator Name | Role | Phone | + +------+ + | Lorenzo Valdes MD | PCP | | + +------+ + Encounter Details +--------+ + + + + | Date | Type | Department | Care Team | Description | +--------+ + + + + | 02/20/ | Orders Only | [facility] | Godfrey Monteiro MD | | | 2013 | | [place]PHROLOGY [place] | [address] [facility] | | | | | [address] [facility] | [place] | | | | | [place] | [address] | | | | | [address] | | | | | | [phone] | | | +--------+ + + + [...] [place] | | | | | | [address] | | | | | | | [...] [place] | | | | | | [address] | | | | | | | | +--------+ + + + + documented as of this encounter Procedures + +--------+ + + + | Procedure Name | Priori | Date/Time | Associated Diagnosis | Comments | | | ty | | | | + +--------+ + + + | MAGNESIUM | Routin | 02/20/2014 | | Results for this | | | e | 12:00 AM | | procedure are in the | | | | PST | | results section. | + +--------+ + + + | RENAL FUNCTION PANEL | Routin | 02/20/2014 | | Results for this | | | e | 12:00 AM | | procedure are in the | | | | PST | | results section. | + +--------+ + + + documented in this encounter Results Magnesium (02/20/2014 12:00 AM PST) + +-------+ + + + | Component | Value | Ref Range | Performed | Pathologist | | | | | At | Signature | + +-------+ + + + | Magnesium | 2.3 | 1.7 - 2.5 mg/dL | EXTERNAL [...] + +---------+ + + Renal Function Panel (02/20/2014 12:00 AM PST) + + + + + + | Component | Value | Ref Range | Performed | Pathologist | | | | | At | Signature | + + + + + + | Glucose, | 88 | 70 - 100 mg/dL | EXTERNAL | | | Fasting | | | LAB | | + + + + + + | BUN | 32 (A) | 6 - 23 mg/dL | EXTERNAL | | | | | | LAB | | + + + + + + | Creatinine | 1.23 (A) | 0.70 - 1.11 | EXTERNAL | | | | | mg/dL | LAB | | + + + + + + | PHOSPHORUS | 4.0 | 2.5 - 5.0 mg/dL | EXTERNAL [...] + + + | Anion Gap | 14.1 | 7 - 21 mmol/L | EXTERNAL | | | | | | LAB | | + + + + + + | eGFR if not | | | EXTERNAL | | | | | | LAB | | | GREEK | | | | | + + + + + + | Phosphorus, | 4.0 | 2.5 - 5.0 | EXTERNAL | | | Inorganic | | | LAB | | + + + + + + | BUN/Creatin | 26.0 | 6.2 - 28.6 | EXTERNAL | | | ine Ratio | | | LAB | | + + + + + + | Calcium | 9.9 | 8.4 - 10.2 | EXTERNAL | | | | | mg/dL | LAB | | + + + + + + | Estimated | 42 | mg/dL | EXTERNAL | | | [...]
--- OUTSIDE RECORDS SUMMARY | ~2019-03-06 | XMS | Encounter Summary ---
Demographics + + + | Address | [address] | | | [place] [address] | + + + | Home Phone [...] [place], [place] | | | | | [address] | | + + + + + | Rivka Palma | ECON | Unknown | | + + + + + | Geno Kendall | ECON | Unknown | | + + + + + Care Team Providers + +------+ + | Care Stopper Setter Name | Role | Phone | [...] + + | 02/23/ | Office | [facility] | Brandon Terry | Bronchiectasis (HCC) | | 2011 | Visit | PULMONARY [address] | [place] [address] [place] | (Primary Dx); | | | | [place], | [facility], [place] | Cough; [place], | | | | [place] [address] | [address] | OBSTRUCTIVE CHRONIC; | | | | [phone] | | Asthma, extrinsic; | | | [...] original. Brandon Terry MD [facility] [address] [place] [address] 02/24/2012 Tamiko Ireland 1930 History: Tamiko Ireland is a 81 y.o. female followed for symptoms of chronic cough and mucus producti on due to bronchiectasis. She was originally seen in May 2008, sent by Dr. Tono pickens [place], [place]. Mrs. Ireland recalled problems dating back to frequent bronchitis in [facility] that suggested that she may even [...] the chest that had been performed at [facility] on July 29, 2005. Th at [...] 3. BRONCHITIS, OBSTRUCTIVE CHRONIC She is a 24-rqov-opes smoking history. Fortunately, pulmonary function test performed [...] | | | | | [place] | | | | | | [id number] | | | | | | | | +--------+ + + + + | 03/23/ | Procedure | Cardiology | | | 2018 | visit | | | | +--------+ + + + + | 08/09/ | Office | Pulmonology | Td Mondragon MD | | | 2019 | Visit | | [address] | | | | | | [place] | | | | | | [address] | | | | | | | [...]
--- OUTSIDE RECORDS SUMMARY | ~2019-03-06 | XMS | Encounter Summary ---
Demographics + + + | Address | [address] | | | [place] [address] | + + + | Home Phone [...] [place], [place] | | | | | [address] | | + + + + + | Rivka Palma | ECON | Unknown | | + + + + + | Geno Kendall | ECON | Unknown | | + + + + + Care Team Providers + +------+ + | Care Lumber Hacker Name | Role | Phone | + +------+ + | Lorenzo Valdes MD | PCP | | + +------+ + Encounter Details +--------+ + + + + | Date | Type | Department | Care Team | Description | +--------+ + + + + | 10/23/ | Orders Only | [facility] | Conversion | | | 2016 | | NEPHROLOGY [place] | Transaction, | | | | | [address] [facility] | Provider Unknown | | | | | [address] [facility] [place] | [phone] | | | | | [address] | | | | | | [phone] | | | +--------+ + + + [...] [place] | | | | | | [address] | | | | | | | [...] [place] | | | | | | [address] | | | | | | | [...] | | | LAB | | | [place] | | | | | + + [...]
--- OUTSIDE RECORDS SUMMARY | ~2019-03-06 | XMS | Encounter Summary ---
Demographics + + + | Address | [address] | | | [place] [address] | + + + | Home Phone | | + + + | Preferred Language | Unknown | + + + | Marital Status | | + + + | Restorationist Affiliation | 1041 | + + + | Race | Unknown | + + + | Ethnic Group | Unknown | + + + Author + + + | Author | [facility] | | | and [place] | + + + | Organization | [facility] | | | [...] [place], [place] | | | | | [address] | | + + + + + | Rivka Palma | ECON | Unknown | | + + + + + | Geno Kendall | ECON | Unknown | | + + + + + Care Team Providers + +------+ + | Care Bee Keeper Name | Role | Phone | + +------+ + | Lorenzo Valdes MD | PCP | | + +------+ + Encounter Details +--------+ + + + + | Date | Type | Department | Care Team | Description | +--------+ + + + + | 10/10/ | Orders Only | [facility] | Conversion | | | 2013 | | NEPHROLOGY [place] | Transaction, | | | | | [address] [facility] | Provider Unknown | | | | | [place] | [phone] | | | | | [address] | | | | | | [phone] | | | +--------+ + + + [...] [place] | | | | | | [address] | | | | | | | [...] [place] | | | | | | [address] | | | | | | | [...]
--- OUTSIDE RECORDS SUMMARY | ~2019-03-06 | XMS | Encounter Summary ---
Demographics + + + | Address | [address] | | | [place] [address] | + + + | Home Phone | | + + + | Preferred Language | Unknown | + + + | Marital Status | | + + + | Muslim Affiliation | 1041 | + + + | Race | Unknown | + + + | Ethnic Group | Unknown | + + + Author + + + | Author | [facility] | | | and [place] | + + + | Organization | [facility] | | [...] [place], [place] | | | | | [address] | | + + + + + | Rivka Palma | ECON | Unknown | | + + + + + | Geno Kendall | ECON | Unknown | | + + + + + Care Team Providers + +------+ + | Care Material Preparation Worker Name | Role | Phone | + +------+ + | Lorenzo Valdes MD | PCP | | + +------+ + Encounter Details +--------+ + + + + | Date | Type | Department | Care Team | Description | +--------+ + + + + | 05/15/ | Orders Only | [facility] | Conversion | | | 2014 | | CARDIOLOGY [place] | Transaction, | | | | | [address] | Provider Unknown | | | | | [place], [place] | [phone] | | | | | [address] | | | | | | [phone] | | | +--------+ + + + [...] [place] | | | | | | [address] | | | | | | | [...] [place] | | | | | | [address] | | | | | | | [...]
--- OUTSIDE RECORDS SUMMARY | ~2019-03-06 | XMS | Encounter Summary ---
Demographics + + + | Address | [address] | | | [place] [address] | + + + | Home Phone | | + + + | Preferred Language | Unknown | + + + | Marital Status | | + + + | Worship Affiliation | 1041 | + + + [...] [place], [place] | | | | | [address] | | + + + + + | Rivka Palma | ECON | Unknown | | + + + + + | Geno Kendall | ECON | Unknown | | + + + + + Care Team Providers + +------+ + | Care Delivery Person Name | Role | Phone | + +------+ + | Lorenzo Valdes MD | PCP | | + +------+ + Reason for Visit + + + | Reason | Comments | + + + | Appointment | | + + + Encounter Details +--------+ + + + + | Date | Type | Department | Care Team | Description | +--------+ + + + + | 07/15/ | Telephone | [facility] | Brandon Terry | Appointment | | 2015 | | PULMONARY [address] | [place] [address] [address] | | | | | [place], | [place], [place] | | | | | [place] [address] | [address] | | | | | [phone] | | | +--------+ + + + [...] [place] | | | | | | [address] | | | | | | | [...] [place] | | | | | | [address] | | | | | | | | +--------+ + + + + documented as of this encounter Visit Diagnoses Not on filedocumented in this encounter"
--- OUTSIDE RECORDS SUMMARY | ~2019-03-06 | XMS | Encounter Summary ---
Demographics + + + | Address | [address] | | | [place] [address] | + + + | Home Phone [...] [place], [place] | | | | | [address] | | + + + + + | Rivka Palma | ECON | Unknown | | + + + + + | Geno Kendall | ECON | Unknown | | + + + + + Care Team Providers + +------+ + | Care Swamper Name | Role | Phone | + [...] + + | 07/15/ | Telephone | [facility] | Brandon Terry | Appointment | | 2015 | | PULMONARY [address] | [place] [address] [address] | | | | | [place], | [place], [place] | | | | | [place] [address] | [address] | | | | | [phone] | | | +--------+ + + + [...] [place] | | | | | | [address] | | | | | | | [...] [place] | | | | | | [address] | | | | | | | | +--------+ + + + + documented as of this encounter Visit Diagnoses Not on filedocumented in this encounter"
--- OUTSIDE RECORDS SUMMARY | ~2019-03-06 | XMS | Encounter Summary ---
Demographics + + + | Address | [address] | | | [place] [address] | + + + | Home Phone [...] | Author | [facility] | | | and [place] | + + + | Organization | [facility] | | | [...] [place], [place] | | | | | [address] | | + + + + + | Rivka Palma | ECON | Unknown | | + + + + + | Geno Kendall | ECON | Unknown | | + + + + + Care Team Providers + +------+ + | Care Rigger Helper Name | Role | Phone | + +------+ + | Lorenzo Valdes MD | PCP | | + +------+ + Encounter Details +--------+ + + + + | Date | Type | Department | Care Team | Description | +--------+ + + + + | 05/04/ | Orders Only | [facility] | Conversion | | | 2014 | | NEPHROLOGY [place] | Transaction, | | | | | [address] [facility] | Provider Unknown | | | | | [place] | [phone] | | | | | [address] | | | | | | [phone] | | | +--------+ + + + [...] | 2018 | Visit | | [address] | | | | | | [place] | | | | | | [address] | | | | | | | [...] [place] | | | | | | [address] | | | | | | | [...]
--- OUTSIDE RECORDS SUMMARY | ~2019-03-06 | XMS | Encounter Summary ---
Demographics + + + | Address | [address] | | | [place] [address] | + + + | Home Phone | | + + + | Preferred Language | Unknown | + + + | Marital Status | | + + + | Buddhism Affiliation | 1041 | + + + | Race | Unknown | + + + | Ethnic Group | Unknown | + + + Author + + + | Author | [facility] | | | and [place] | + + + | Organization | [facility] | [...] [place], [place] | | | | | [address] | | + + + + + | Rivka Palma | ECON | Unknown | | + + + + + | Geno Kendall | ECON | Unknown | | + + + + + Care Team Providers + +------+ + | Care Activities Therapist Name | Role | Phone | + +------+ + | Lorenzo Valdes MD | PCP | | + +------+ + Encounter Details +--------+ + + + + | Date | Type | Department | Care Team | Description | +--------+ + + + + | 05/17/ | Orders Only | [facility] | Kenia Dent MD | | | 2015 | | CARDIOLOGY [place] | [address] | | | | | [address] | [place] [address] | | | | | [address] | [phone] | | | | | [place], [place] | | | | | | [address] | | | | | | [phone] | | | +--------+ + + + [...] [place] | | | | | | [address] | | | | | | | | +--------+ + + + + | 03/23/ | Procedure | Cardiology | | | | 2018 | visit | | | | +--------+ + + + + | 08/09/ | Office | Pulmonology | Td Modnragon MD | | | 2019 | Visit | | [address] | | | | | | [place] | | | | | | [address] | | | | | | | [...] + + | 1. Abnormal study. Large wci-gexxw-onzhu yuwrbxe-velridp-pxscu | | | infarction with minimal ischemia. [...] Performed At | + + + | [facility] CARDIOLOGY Nuclear Lexiscan Stress Test History: | [...] César Hawkins Conversion [facility]2018 [facility] | Lexiscan Stress Test History:83 Year [...] was given. IMPRESSION: 1. Abnormal study. Large gdh-ihdkg-tzdje zmxixvu-xluzgar-xhstl | | infarction with minimal ischemia. LV [...] | |IMPRESSION: | |1. Abnormal study. Large vaq-faefw-hnnkf zzzzkmw-kzpxcdv-vasbg infarction with minimal is chemia. LV enlarged. [...]
--- OUTSIDE RECORDS SUMMARY | ~2019-03-06 | XMS | Encounter Summary ---
Demographics + + + | Address | [address] | | | [place] [address] | + + + | Home Phone | | + + + | Preferred Language | Unknown | + + + | Marital Status | | + + + | Buddhism Affiliation | 1041 | + + + | Race | Unknown | + + + | Ethnic Group | Unknown | + + + Author + + + | Author | [facility] | | | and [place] | + + + | Organization | [facility] | | [...] [place], [place] | | | | | [address] | | + + + + + | Rivka Palma | ECON | Unknown | | + + + + + | Geno Kendall | ECON | Unknown | | + + + + + Care Team Providers + +------+ + | Care Quantity Surveyor Name | Role | Phone | + +------+ + | Lorenzo Valdes MD | PCP | | + +------+ + Encounter Details +--------+ + + + + | Date | Type | Department | Care Team | Description | +--------+ + + + + | 01/09/ | Orders Only | [facility] | Barbara Doll ANP | | | 2015 | | [facility] | [address] | | | | | [address] | [place], [place] | | | | | [place], [place] | [address] | | | | | [address] | | | | | | [phone] | | | +--------+ + + + [...] [place] | | | | | | [address] | | | | | | | [...] [place] | | | | | | [address] | | | | | | | [...] cavity. 11. There | | | is asip-qr-kouuhkmg aortic regurgitation. 12. Mild mitral | | [...] | | | cavity. 11. There is mjif-ox-qogksfbm aortic regurgitation. 12. Mild | | | [...] not well visualized. Aortic Valve: There is hryf-xu-zzltluvc | | | aortic regurgitation. Aortic Valve: [...] | Ao Diam: 2.88 cm AR Dec Smith: 2.13 m/s2 AR Dec Time: | | [...] TR Vmax: | | | 2.26 m/s Antique Furniture Repairer: TRINITY Authenticated by: Nicolas Paige MD | [...] in the right atrial cavity.11. There is phaz-ha-kvctwdaj | | aortic regurgitation.12. Mild mitral regurgitation [...] | | well visualized.Aortic Valve: There is nbde-yb-aawaalhv aortic regurgitation.Aortic | | Valve: The aortic [...] cmLVIDd: 5.90 cmLVPWd: 0.89 cmLVOT Area: 3.10 [id number] | | Diam: 1.98 cm%FS: 15.88 %EF(Teich): [...] (A-L): 8.53 ml/m2LAAs | | A2C: 7.13 gv2ALHJA A-L A2C: 10.94 mlLALs A2C: 3.94 cmLAAs A4C: 9.12 [id number] | | A-L A4C: 17.04 mlLALs A4C: 4.14 cmRAAs: 10.80 ra2YSSSR A-L: 24.15 mlRAESV MOD: | | 23.34 mlRALs: 4.10 cmAo Diam: 2.88 cmAR Dec Smith: 2.13 m/s2AR Dec Time: | | 1676.54 msAR maxP.06 mmHgAR PHT: 486.19 msAR Vmax: 3.57 m/Evelin maxP.73 | | mmHgAV meanP.49 mmHgAV Vmax: 1.38 m/Evelin Vmean: 1.01 m/Evelin VTI: 21.70 cmAVA | | Vmax: 1.79 cm2AVA (VTI): 1.70 mb7XCUT (Vmax): 0.00 cm2/m2AVAI (VTI): 0.00 | | cm2/m2LVOT maxP.62 mmHgLVOT meanP.28 mmHgLVSI Dopp: 22.58 ml/m2LVSV Dopp: | | 37.04 mlLVOT Vmax: 0.80 m/sLVOT Vmean: 0.52 m/sLVOT VTI: 11.94 cmLateral e': | | 0.06 m/sPAEDP: 10.20 mmHgPRend P.20 mmHgPRend Vmax: 1.14 m/sPV maxP.62 | | mmHgPV Vmax: 0.81 m/sRAP: 5 mmHgRVSP: 25.60 mmHgTR maxP.60 mmHgTR Vmax: | | 2.26 m/s Antique Furniture Repairer: TRINITYAuthenticated by: Nicolas Paige MDReport Date/Time: 01-21-2015 [...] | | right atrial cavity.11. There is fesh-xk-lsyijxmx aortic regurgitation.12. Mild mitral | | regurgitation [...] |Ao Diam: 2.88 cm | |AR Dec Smith: 2.13 m/s2 | |AR Dec Time: 1676.54 [...] |TR Vmax: 2.26 m/s | | | |Antique Furniture Repairer: RK | |Authenticated by: Nicolas Paige MD [...] right atrial cavity. | |11. There is culh-cb-qqiclwfo aortic regurgitation. | |12. Mild mitral regurgitation is present. | |13. Mild tricuspid regurgitation present. | |14. There is no pericardial effusion. | + + documented in this encounter Visit Diagnoses Not on filedocumented in this encounter"
--- OUTSIDE RECORDS SUMMARY | ~2019-03-06 | XMS | Encounter Summary ---
Demographics + + + | Address | [address] | | | [place] [address] | + + + | Home Phone | | + + + | Preferred Language | Unknown | + + + | Marital Status | | + + + | Hoahaoism Affiliation | 1041 | + + + [...] [place] | | | | | [address] | | + + + + + | Rivka Palma | ECON | Unknown | | + + + + + | Geno Kendall | ECON | Unknown | | + + + + + Care Team Providers + +------+ + | Care Assistant Professor Of Life Sciences Name | Role | Phone | + [...] Description | +--------+---------+ + + + | 02/08/ | Office | [facility] | Td Mondragon MD | Moderate persistent | | 2019 | Visit | PULMONOLOGY [address] | [address] | asthma, unspecified | | | | [address] | [place], [place] | whether complicated | | | | [place], [place] | [address] | (Primary Dx); | | | | [address] | | Ischemic | | | | [phone] | | cardiomyopathy; | | | | | | Centrilobular | | | | | | emphysema (HCC) | +--------+---------+ + + + Social History + +-------+ +--------+ + | Tobacco Use | Types | Packs/Day | Years | Date | | | | | Used | | + +-------+ +--------+ + | Former Smoker | | 1 | 30 | 6 02/17/1986 | + +-------+ +--------+ + + [...] encounter Progress Notes Td Mondragon MD - 02/08/2019 11:20 AM PDT Subjective: Patient ID: Tamiko Ireland [id number] y.o. is here for follow up for cough. HPI Patient's medications, allergies, past medical, surgical, [...] entation last time she quit was 1985. Interim history 02/08/2019 The patient says that she has been using her nebulization and she feels better . She contin ues to have some cough and it has been worse for the past few days . She was seen by her pcp and treated with a course of antibiotics and flonase. She has had no hospitalization in the interim. Review of Systems Constitutional: Positive for malaise/fatigue. HENT: Negative. Eyes: Negative. Respiratory: Positive for cough, shortness of breath and wheezing. Cardiovascular: Negative. Gastrointestinal: Negative. Genitourinary: Negative. Musculoskeletal: Positive for back pain. Skin: Negative. Neurological: Negative. Endo/Heme/Allergies: Negative. Psychiatric/Behavioral: Negative. History: Past Medical History: Diagnosis Date Acute kidney injury ([facility]) 09/30/2013 Allergic rhinitis Asthma Bronchiectasis ([facility]) CAD (coronary artery disease) 09/13/2013 s/p CABG x5 (HANSON to mid LAD and distal LAD, SVG to RI, SVG to OM, SVG to PDA) 11/24 COPD (chronic obstructive pulmonary disease) ([facility]) Diabetes mellitus, type 2 ([facility]) Diabetes mellitus, type 2 ([facility]) Hypercholesterolemia Hyperlipidemia Hypertension Hypokalemia 10/18/2013 Hypothyroidism Ischemic cardiomyopathy Left bundle branch block Non-ST elevated myocardial infarction (non-STEMI) ([facility]) 12/08/2013 Osteoarthritis Pneumonia Status post internal cardiac [...] - CELSO; Surgeon: Niraj Celis MD; Location: [facility]; Service: Card iac; Laterality: N/A; HIP SURGERY HYSTERECTOMY HYSTERECTOMY partial OTHER SURGICAL HISTORY CATARACT EXTRACTION OTHER SURGICAL HISTORY Left 12/09/2013 INTERNAL MAMMARY ARTERIAL HARVEST - Procedure: INTERNAL MAMMARY ARTERIAL HARVEST; Surgeon : Niraj Celis MD; Location: [facility]; Service: Cardiac; Laterality: Left; OTHER SURGICAL HISTORY Right 12/09/2013 ENDOVASCULAR VEIN HARVEST - Procedure: VEIN - ENDOVASCULAR VEIN HARVEST; Surgeon: Niraj waters MD; Location: [facility]; Service: Cardiac; Laterality: Right; OTHER SURGICAL HISTORY UNLISTED PROCEDURE ARTHROSCOPY - Screws in Right hip OTHER SURGICAL HISTORY HARDWARE PRESENT - screws in right hip PACEMAKER INSERTION 2014 STERNOTOMY 12/09/2013 Procedure: STERNOTOMY; Surgeon: Niraj Celis MD; Location: [facility]; Service: Card iac;; TRANSTHORACIC ECHOCARDIOGRAM 09/2018 EF 20-25%, mild MR, mild TR, mild MT, RVSP 31 Social History Socioeconomic History Marital [...] Last attempt to quit: 02/17/1986 Years since quittin.9 Smokeless tobacco: Never Used Substance and Sexual Activity Alcohol use: Yes Frequency: Monthly or less Drinks per session: 1 or 2 Binge frequency: Never Comment: Rarely Drug use: Never Comment: Drug use: No Sexual activity: Not on file Other Topics Concern Not on file Social History Narrative She lives in [place]. to Alfredo 1949. Has mainly been a [...] DOSES PER 24 HOURS 1080 mL 11 amoxicillin-clavulanate (AUGMENTIN) 875-125 mg per tablet take 1 tablet by mouth every 12 hours for 10 days 0 aspirin (ADULT ASPIRIN EC LOW STRENGTH) 81 MG EC tablet Take 81 mg by mouth Daily. bumetanide (BUMEX) 1 mg tablet Take 1 mg by mouth Daily. calcium carbonate (TUMS) 500 mg chewable tablet Take 1,250 mg by mouth daily. carvedilol (COREG) 3.125 mg tablet Take 3.125 mg by mouth 2 times daily (with breakfast & dinner). cholecalciferol (VITAMIN D-3) 1,000 units capsule Take 1,000 Units by mouth daily. Coenzyme Q10 (CO Q 10) 100 MG CAPS Take 300 mg by mouth. docusate sodium (COLACE) 100 MG capsule Take 200 mg by mouth as needed fluticasone (FLONASE) 50 mcg/nasal spray instill 1 spray into each nostril twice a day 0 levothyroxine (SYNTHROID) 88 mcg tablet Take 88 mcg by mouth Daily. lidocaine 4 % patch Place 1-3 patches onto the skin. losartan (COZAAR) 25 mg tablet Take 0.5 tablets by mouth daily. metOLazone 2.5 mg tablet Take 2.5 mg by mouth. montelukast (SINGULAIR) 10 mg tablet Take 10 [...] on file prior to visit. Objective: Vitals: 02/08/19 1122 BP: 102/64 Pulse: 75 Temp: 36.3 C (97.4 F) PainSc: 0 - No pain Physical [...] heart sounds. No murmur heard. Pulmonary/Chest: She has no wheezes. She has rales. She exhibits no tenderness. Abdominal: Soft. Musculoskeletal: Normal range [...] fibrosis Assessment and plan 1. Moderate persistent asthma in mild exacerbation The patient appears to have combination of moderate persistent asthma along with centrilobu lar emphysema. She was started on nebulisations in the previous visits . - budesonide (PULMICORT) 0.25 mg/2 mL nebulizer solution; Take 2 mLs by nebulization 2 times daily. - albuterol-ipratropium 2.5-0.5 mg/3 mL SOLN; one 3 mL vial via nebulization 4 times da pita I will treat her with a course of steroids for the mild exacerbation . 2. Ischemic cardiomyopathy Continue to follow-up with cardiology 3. Centrilobular emphysema (HCC) Please see above Thank you for allowing me to participate in your patient's care. We will review test result s that we have ordered with the patient once they become available. A return visit has been scheduled in 6months. Td Mondragon MD Pulmonary and Critical Care Medicine [facility] [address] [facility] [place] [address] documented in this enco unter Plan of [...] [place] | | | | | | [address] | | | | | | | [...] [place] | | | | | | [address] | | | | | | | [...]
--- OUTSIDE RECORDS SUMMARY | ~2019-03-06 | XMS | Encounter Summary ---
Demographics + + + | Address | [address] | | | [place] [address] | + + + | Home Phone | | + + + | Preferred Language | Unknown | + + + | Marital Status | | + + + | Restorationism Affiliation | 1041 | + + + | Race | Unknown | + + + | Ethnic Group | Unknown | + + + Author + + + | Author | [facility] | | | and [place] | + + + | Organization | [facility] | | | [...] [place], [place] | | | | | [address] | | + + + + + | Rivka Palma | ECON | Unknown | | + + + + + | Geno Kendall | ECON | Unknown | | + + + + + Care Team Providers + +------+ + | Care Extracting Machine Operator Name | Role | Phone [...] | | NEPHROLOGY [place] | [address] [facility] | | | | | [address] [facility] | [place] | | | | | [place] | [address] | | | | | [address] | | | | | | [phone] | | | +--------+ + + + [...] [place] | | | | | | [address] | | | | | | | [...] [place] | | | | | | [address] | | | | | | | [...] | | | LAB | | | [facility] | | | | | + + [...]
--- OUTSIDE RECORDS SUMMARY | ~2019-03-06 | XMS | Encounter Summary ---
Demographics + + + | Address | [address] | | | [place] [address] | + + + | Home Phone | | + + + | Preferred Language | Unknown | + + + | Marital Status | | + + + | Faith Affiliation | 1041 | + + + | Race | Unknown | + + + | Ethnic Group | Unknown | + + + Author + + + | Author | [facility] | | | and [place] | + + + | Organization | [facility] | | [...] [place], [place] | | | | | [address] | | + + + + + | Rivka Palma | ECON | Unknown | | + + + + + | Geno Kendall | ECON | Unknown | | + + + + + Care Team Providers + +------+ + | Care Logger Name | Role | Phone | + +------+ + | Lorenzo Valdes MD | PCP | | + +------+ + Encounter Details +--------+ + + + + | Date | Type | Department | Care Team | Description | +--------+ + + + + | 12/19/ | Orders Only | [facility] | Conversion | | | 2015 | | NEPHROLOGY [place] | Transaction, | | | | | [address] [facility] | Provider Unknown | | | | | [address] [facility] [place] | [phone] | | | | | [address] | | | | | | [phone] | | | +--------+ + + + [...] [place] | | | | | | [address] | | | | | | | [...] [place] | | | | | | [address] | | | | | | | [...]
--- OUTSIDE RECORDS SUMMARY | ~2019-03-06 | XMS | Encounter Summary ---
Demographics + + + | Address | [address] | | | [place] [address] | + + + | Home Phone | | + + + | Preferred Language | Unknown | + + + | Marital Status | | + + + | Gnosticism Affiliation | 1041 | + + + | Race | Unknown | + + + | Ethnic Group | Unknown | + + + Author + + + | Author | [facility] | | | and [place] | + + + | Organization | [facility] | [...] [place], [place] | | | | | [address] | | + + + + + | Rivka Palma | ECON | Unknown | | + + + + + | Geno Kendall | ECON | Unknown | | + + + + + Care Team Providers + +------+ + | Care Tufter Hand Name | Role | Phone | + +------+ + | Lorenzo Valdes MD | PCP | | + +------+ + Encounter Details +--------+ + + + + | Date | Type | Department | Care Team | Description | +--------+ + + + + | 09/30/ | Hospital | [facility] | Rin Etienne, | Acute kidney injury | | 2014 - | Encounter | [facility] | MD Mary BAINS | ([facility]); Hypotension, | | | | CLINICAL DECISION | [place], [place] | unspecified; | | 10/06/ | | [facility] | [phone] | Cardiomyopathy | | 2013 | | [place], [place] | | ([facility]); DM (diabetes | | | | [address] | | mellitus) ([facility]); CHF | | | | [phone] | | (congestive heart | | | | | | failure) ([facility]); | | | | | | Urinary [...] Service: (none) Author Type: Physician Filed: 10/06/13 0997 Date of Service: 10/06/13 1041 Status: Signed Aircraft Painter Apprentice: Richy Greenberg MD (Physician) Related Notes: Original Note by Richy Greenberg MD (Physician) filed at 10/06/13 1045 [facility] Service: Hospitalist Discharge Summary Date of [...] is going to see Dr. Marti pickens, net developer with [facility], today. She was discharged home in stable [...] was strongly encouraged to continue seein g net developer with [facility] and reporting manager due to severe CHF and kidney disease. Disposition: Home Condition: Stable Code Status: Full Code No discharge procedures on file. Follow up: MD Godfrey Bowen MD [address] [place] [address] Schedule an appointment as soon as possible [...] are the prescriptions that you need to cotton picker. You may get these medications from [...] | | | | | | | ([facility]), Bronchitis, | | | | | | | obstructive, chronic | | | | | | | ([facility]) | | | | | [...] Date of Service: 10/06/13 113 Status: Signed Aircraft Painter Apprentice: Janice Toth RN (Registered Nurse) Discharge instructions [...] Date of Service: 10/06/13 105 Status: Signed Aircraft Painter Apprentice: Godfrey Shipman MD (Physician) [facility] Service: NEPHROLOGY progress Note Tamiko Ireland 83 y.o. [id number] 301/301-2 female CANDICE [facility] Day: LOS: 6 days The patient is [...] no CVA tenderness noted LABS: reviewed from [facility] RECORDS Recent Results (from the past 24 [...] TO SEE DR LOBO TODAY OUTPATIENT IN [facility], OR CASE DISCUSSED IN DETAIL WITH PATIENT/ [...] 10/06/13518 Date of Service: 10/06/13517 Status: Signed Aircraft Painter Apprentice: Vanna Dykes RN (Registered Nurse) Patient appears [...] 10/05/131827 Date of Service: 10/05/131826 Status: Signed Aircraft Painter Apprentice: Melissa Álvarez RN (Registered Nurse) Pt has [...] Service: (none) Author Type: Physician Filed: 10/06/13 4771 Date of Service: 10/05/13 1350 Status: Signed Aircraft Painter Apprentice: Richy Greenberg MD (Physician) Related Notes: Original Note by Richy Greenberg MD (Physician) filed at 10/05/13 1357 [facility] Service: Hospitalist Progress Note Hospital Day: [...] 1322 Date of Service: 10/05/13910 Status: Signed Aircraft Painter Apprentice: Godfrey Shipman MD (Physician) [facility] Service: NEPHROLOGY progress Note Tamiko [place] 83 y.o. [id number] 301/301-1 female [facility] Day: LOS: 5 days The patient is [...] no CVA tenderness noted LABS: reviewed from [facility] RECORDS Recent Results (from the past 24 [...] 10/05/1312 Date of Service: 10/05/13907 Status: Signed Aircraft Painter Apprentice: Molina Wheat () I visited with Pt [...] 10/05/13502 Date of Service: 10/05/13500 Status: Signed Aircraft Painter Apprentice: Vanna Dykes RN (Registered Nurse) Patent appears [...] 10/04/131918 Date of Service: 10/04/131917 Status: Signed Aircraft Painter Apprentice: Melissa Álvarez RN (Registered Nurse) Pt has [...] 1328 Date of Service: 10/04/131806 Status: Signed Aircraft Painter Apprentice: Richy Greenberg MD (Physician) Related Notes: Original Note by Richy Greenberg MD (Physician) filed at 10/04/131810 [facility] Service: Hospitalist Progress Note Hospital Day: [...] Date of Service: 10/04/13 1125 Status: Signed Aircraft Painter Apprentice: Godfrey Shipman MD (Physician) [facility] Service: NEPHROLOGY progress Note Tamiko [place] 83 y.o. [id number] 301/301-1 female [facility] Day: LOS: 4 days The patient is [...] no CVA tenderness noted LABS: reviewed from [facility] RECORDS Recent Results (from the past 24 [...] Author: JAIMEE Gage Service: (none) Author Type: Cloth Carrier Filed: 10/04/13 1115 Date of Service: 10/04/13 1031 Status: Signed Aircraft Painter Apprentice: JAIMEE Gage (Cloth Carrier) On Jana LUKE's request to provide tele health for pt upon her dc. CM contacted [facility] or [facility].to set up tele health for Pt. Maki with [facility] ated that the hospital membreno not offer tele health in the hospital or the area of [facility] . Pt stated that she will not [...] Date of Service: 10/04/13 0516 Status: Signed Aircraft Painter Apprentice: Vanna Dykes RN (Registered Nurse) Patient appears [...] 1318 Date of Service: 10/03/131920 Status: Signed Aircraft Painter Apprentice: Godfrey Shipman MD (Physician) [facility] Service: NEPHROLOGY PROGRESS Note Tamiko Ireland 83 y.o. [id number] 301/301-1 female [facility] Day: LOS: 3 days The patient is [...] no CVA tenderness noted LABS: reviewed from [facility] RECORDS Recent Results (from the past 24 [...] 10/03/131816 Date of Service: 10/03/131815 Status: Signed Aircraft Painter Apprentice: Jana Bae RN (Registered Nurse) Pt resting [...] Date of Service: 10/03/13 150 Status: Signed Aircraft Painter Apprentice: Jana Bae RN (Registered Nurse) Talked to [...] Progress Notes by Gurjit Sparks MD at 10/03/13 Author: Gurjit Sparks MD Service: Hospitalist Author Type: Physician Filed: 10/03/13 1115 Date of Service: 10/03/13834 Status: Signed Aircraft Painter Apprentice: Gurjit Sparks MD (Physician) [facility] Service: Hospitalist Progress Note Hospital Day: [...] has been following the patient in the [facility]. Patient's blood pressure medications were held and [...] hours No results found for this basename: PHART:3,PO2ART:3,CFF7ZXQ:3,U7UBJEZA:3,BEART:[address] 168 hours No results found for this basename: APTT:3,INR:3,PTT:3 in the last 168 hours No results found for this basename: TSH:3,T3FREE:3,FREET4:3 in the last 168 hours Lab 10/01/13 0545 09/30/13 2358 CKTOTAL -- -- TROPONINI <0.02 0.023 TROPONINT -- -- CKMBINDEX -- -- Results Procedure Component Value Units Date/Time Urine culture [[id number]] (Abnormal) Collected:10/01/1345 Specimen Information:Urine, Unspecified Source Updated:10/03/13832 [...] ceftriaxone and follow-up urine cultures DVT prophylaxis: [facility] Ordered labs for tomorrow. Code Status: Full Code Gurjit Sparks MD 10/03/20138:35 AM onversio n Transaction, Provider Unknown - 10/03/2013 5:00 AM PDTFormatting of this note might be di fferent from the original. Nurse Progress Note by Baylee Boss RN at 10/03/13 0500 Author: Baylee Boss RN Service: (none) Author Type: Registered Nurse Filed: 10/03/13 0501 Date of Service: 10/03/13 0500 Status: Signed Aircraft Painter Apprentice: Baylee Boss RN (Registered Nurse) Pt has [...] Date of Service: 10/02/13 1123 Status: Signed Aircraft Painter Apprentice: Godfrey Shipman MD (Physician) [facility] Service: NEPHROLOGY PROGRESS Note Tamiko Ireland 83 y.o. [id number] 301/301-1 female [facility] Day: LOS: 2 days The patient is [...] no CVA tenderness noted LABS: reviewed from [facility] RECORDS Recent Results (from the past 24 [...] 0935 Date of Service: 10/02/13931 Status: Signed Aircraft Painter Apprentice: Gurjit Sparks MD (Physician) [facility] Service: Hospitalist Progress Note Hospital Day: [...] hours No results found for this basename: PHART:3,PO2ART:3,XLC6DCC:3,D4CBEOWN:3,BEART:[address] 168 hours No results found for this basename: APTT:3,INR:3,PTT:3 in the last 168 hours No results found for this basename: TSH:3,T3FREE:3,FREET4:3 in the last 168 hours Lab 10/01/13 0545 09/30/13 2358 CKTOTAL -- -- TROPONINI <0.02 0.023 TROPONINT -- -- CKMBINDEX -- -- Results Procedure Component Value Units Date/Time Urine culture [[id number]] Collected:10/01/13 0845 Specimen Information:Urine, Unspecified Source Updated:10/01/13 [...] ceftriaxone and follow-up urine cultures DVT prophylaxis: [facility] Ordered labs for tomorrow. Code Status: Full Code Gurjit Sparks MD 10/02/20139:32 AM onversio n Transaction, Provider Unknown - 10/02/2013 5:20 AM PDTFormatting of this note might be di fferent from the original. Nurse Progress Note by Baylee Boss RN at 10/02/13 5019 Author: Baylee Boss RN Service: (none) Author Type: Registered Nurse Filed: 10/02/13 0522 Date of Service: 10/02/13 0520 Status: Signed Aircraft Painter Apprentice: Baylee Boss, RN (Registered Nurse) Pt has [...] Service: Nephrology Author Type: Physician Filed: 10/18/13 9512 Date of Service: 10/01/13 1242 Status: Signed Aircraft Painter Apprentice: Godfrey Shipman MD (Physician) [facility] Service: NEPHROLOGY progress Note Tamiko Ireladn 83 y.o. [id number] 301/301-1 female [facility] Day: LOS: 1 day The patient is [...] no CVA tenderness noted LABS: reviewed from [facility] RECORDS Recent Results (from the past 24 [...] Range COLOR UA YELLOW CLARITY CLOUDY Specific [place], UA 1.015 1.002 - 1.030 LEUKOCYTE ESTERASE [...] 10/01/131119 Date of Service: 10/01/131119 Status: Signed Aircraft Painter Apprentice: Dana Gamboa RPH (Pharmacist) crcl ~ 13.5 [...] 10/01/13921 Date of Service: 10/01/13913 Status: Signed Aircraft Painter Apprentice: Gurjit Sparks MD (Physician) [facility] Service: Hospitalist Progress Note Hospital Day: [...] hours No results found for this basename: PHART:3,PO2ART:3,NNZ8SHH:3,A4DYBKAN:3,BEART:[address] 168 hours No [...] home medications. Hypothyroidism. Continue Synthroid DVT prophylaxis: [facility] Ordered labs for tomorrow. Code Status: Full Code Gurjit Sparks MD 10/01/20139:14 AM onversio n Transaction, Provider Unknown - 09/30/2013 8:14 PM PDTFormatting of this note might be di fferent from the original. Progress Notes by Baylee Montague RPH at 09/30/132013 Author: Baylee Montague RPH Service: (none) Author Type: Pharmacist Filed: 09/30/132013 Date of Service: 09/30/132013 Status: Signed Aircraft Painter Apprentice: Baylee Montague RPH (Pharmacist) Renal Dosing Monitoring: [...] Author: JAIMEE Rodriguez Service: (none) Author Type: Cloth Carrier Filed: 09/30/132013 Date of Service: 09/30/132009 Status: Signed Aircraft Painter Apprentice: JAIMEE Rodriguez (Cloth Carrier) 09/30/132003 Discharge Planning Evaluation Admitting Diagnosis CHF Readmission Yes-within 14 days Living Arrangements Spouse/significant other (Alfredo [place] [phone]; cell [phone]) Type of Residence Private residence House type House-1 story Steps to enter 7 Independent with ADL's Yes Independent with Mobility Yes (recently ordered a 4WW) Home Care Services No Caregiver after Discharge No Mental Status Oriented Prior functional status Patient has adult daughters who come to help care for her and husba nd. Power of Retail Route Supervisor No Resources Transportation issues No Prescription Plan [...] CANDICE VALDES Patient's insurance: Medicare IP-OP and [employer] Coverage concerns: None Medication coverage/concerns: Rx coverage [...] | | | | | [address] [place], [place] | | | | | | [address] | | | | | | | [...] [place] | | | | | | [address] | | | | | | | [...] | | | Fingerstick | performed at [facility];[address] | | LAB | | | | [address];[place], [place] | | | | | | [address] | | | | + + + [...] | | | | | [place] [address] | | | | + + + + + + | RED CELL | 3.88Comment: Testing | 3.70 - 5.10 | EXTERNAL | | | COUNT | performed at [facility], [address] | M/uL | LAB | | | | [address], | | | | | | [place] [address] | | | | + + + + + + | Hgb | 12.4Comment: Testing | 11.3 - 15.5 | EXTERNAL | | | | performed at [facility], [address] | g/dL | LAB | | | | [address], | | | | | | [place] [address] | | | | + + + + + + | Hematocrit, | 37.0Comment: Testing | 34.0 - 46.0 % | EXTERNAL | | | POC | performed at [facility], [address] | | LAB | | | | [address], | | | | | | [place] [address] | | | | + + + + + + | MCV | 95.4Comment: Testing | 80.0 - 100.0 fl | EXTERNAL | | | | performed at [facility], [address] | | LAB | | | | [address], | | | | | | [place] [address] | | | | + + + + + + | MCH | 32.0Comment: Testing | 27.0 - 34.0 pg | EXTERNAL | | | | performed at [facility], [address] | | LAB | | | | [address], | | | | | | [place] [address] | | | | + + + + + + | MCHC | 33.6Comment: Testing | 32.0 - 35.5 | EXTERNAL | | | | performed at [facility], [address] | g/dL | LAB | | | | [address], | | | | | | [place] [address] | | | | + + + + + + | RDW-CV | 43.8Comment: Testing | 37 - 53 fl | EXTERNAL | | | | performed at [facility], [address] | | LAB | | | | [address], | | | | | | [place] [address] | | | | + + + + + + | Platelet | 151Comment: Testing | 150 - 400 K/uL | EXTERNAL | | | Count | performed at [facility], [address] | | LAB | | | Plasma | [address], | | | | | | [place] [address] | | | | + + + + + + | MPV | 8.7Comment: Testing | fl | EXTERNAL | | | | performed at [facility], [address] | | LAB | | | | [address], | | | | | | [place] [address] | | | | + + + + + + | Differentia | AUTOMATEDComment: | | EXTERNAL | | | l Type | Testing performed at | | LAB | | | | [facility], [address] | | | | | | [place] | | | | | | [address] | | | | + + + + + + | % Segmented | 43.7Comment: Testing | % | EXTERNAL | | | | performed at [facility], [address] | | LAB | | | Neutrophils | [address], | | | | | | [place] [address] | | | | + + + + + + | % | 36.3Comment: Testing | % | EXTERNAL | | | Lymphocytes | performed at [facility], [address] | | LAB | | | | [address], | | | | | | [place] [address] | | | | + + + + + + | % Monocytes | 13.1Comment: Testing | % | EXTERNAL | | | | performed at [facility], [address] | | LAB | | | | [address], | | | | | | [place] [address] | | | | + + + + + + | % | 5.9Comment: Testing | % | EXTERNAL | | | Eosinophils | performed at [facility], [address] | | LAB | | | | [address], | | | | | | [place] [address] | | | | + + + + + + | % Basophils | 1.0Comment: Testing | % | EXTERNAL | | | | performed at [facility], [address] | | LAB | | | | [address], | | | | | | [place] [address] | | | | + + + + + + | Absolute | 3.1Comment: Testing | 1.9 - 7.4 K/uL | EXTERNAL | | | Segmented | performed at [facility], [address] | | LAB | | | Neutrophils | [address], | | | | | | [place] [address] | | | | + + + + + + | Absolute | 2.5Comment: Testing | 1.0 - 3.9 K/uL | EXTERNAL | | | Lymphocytes | performed at [facility], [address] | | LAB | | | | [address], | | | | | | [place] [address] | | | | + + + + + + | Absolute | 0.9 (H)Comment: Testing | 0 - 0.8 K/uL | EXTERNAL | | | Monocytes | performed at [facility], [address] | | LAB | | | | [address], | | | | | | [place] [address] | | | | + + + + + + | Absolute | 0.4Comment: Testing | 0 - 0.5 K/uL | EXTERNAL | | | Eosinophils | performed at [facility], [address] | | LAB | | | | [address], | | | | | | [place] [address] | | | | + + + + + + | Absolute | 0.1Comment: Testing | 0 - 0.1 K/uL | EXTERNAL | | | Basophils | performed at [facility], [address] | | LAB | | | | [address], | | | | | | [place] [address] | | | | + + + [...] EXTERNAL | | | | performed at [facility], [address] | | LAB | | | | [address], | | | | | | [place] [address] | | | | + + + [...] | | | | | [place] [address] | | | | + + + [...] | | | | | [place] [address] | | | | + + + + + + | K | 3.3 (L)Comment: Testing | 3.5 - 4.9 | EXTERNAL | | | | performed at [facility], [address] | mmol/L | LAB | | | | [address], | | | | | | [place] [address] | | | | + + + + + + | Cl | 107Comment: Testing | 99 - 109 mmol/L | EXTERNAL | | | | performed at [facility], [address] | | LAB | | | | [address], | | | | | | [place] [address] | | | | + + + + + + | CO2 | 24Comment: Testing | 23 - 32 mmol/L | EXTERNAL | | | | performed at [facility], [address] | | LAB | | | | [address], | | | | | | [place] [address] | | | | + + + + + + | Anion Gap | 12Comment: Testing | 5 - 20 mmol/L | EXTERNAL | | | | performed at [facility], [address] | | LAB | | | | [address], | | | | | | [place] [address] | | | | + + + + + + | Glucose, | 127 (H)Comment: Testing | 65 - 99 mg/dL | EXTERNAL | | | Fasting | performed at [facility], [address] | | LAB | | | | [address], | | | | | | [place] [address] | | | | + + + + + + | BUN | 17Comment: Testing | 8 - 25 mg/dL | EXTERNAL | | | | performed at [facility], [address] | | LAB | | | | [address], | | | | | | [place] [address] | | | | + + + + + + | Creatinine | 1.37 (H)Comment: Testing | 0.50 - 1.00 | EXTERNAL | | | | performed at [facility], [address] | mg/dL | LAB | | | | [address], | | | | | | [place] [address] | | | | + + + + + + | BUN/Creatin | 12Comment: Testing | | EXTERNAL | | | ine Ratio | performed at [facility], [address] | | LAB | | | | [address], | | | | | | [place] [address] | | | | + + + + + + | Calcium | 9.3Comment: Testing | 8.5 - 10.2 | EXTERNAL | | | | performed at [facility], [address] | mg/dL | LAB | | | | [address] [facility], | | | | | | [place] [address] | | | | + + + [...] | | | | | | at [facility], [address] | | | | | | [address] [facility], | | | | | | [place] [address] | | | | + + + [...] | | | Fingerstick | performed at [facility];[address] | | LAB | | | | [address];[place] | | | | | | [address] | | | | + + + [...] | | | Fingerstick | performed at [facility];[address] | | LAB | | | | [address];[place], [place] | | | | | | [address] | | | | + + + [...] | | | Fingerstick | performed at [facility];[address] | | LAB | | | | [address];[place], [place] | | | | | | [address] | | | | + + [...] | | | Fingerstick | performed at [facility];[address] | | LAB | | | | [address];[place], [place] | | | | | | [address] | | | | + + + [...] EXTERNAL | | | | performed at [facility], [address] | | LAB | | | | [address], | | | | | | [place] [address] | | | | + + + + + + | RED CELL | 3.73Comment: Testing | 3.70 - 5.10 | EXTERNAL | | | COUNT | performed at [facility], [address] | M/uL | LAB | | | | [address], | | | | | | [place] [address] | | | | + + + + + + | Hgb | 11.9Comment: Testing | 11.3 - 15.5 | EXTERNAL | | | | performed at [facility], [address] | g/dL | LAB | | | | [address], | | | | | | [place] [address] | | | | + + + + + + | Hematocrit, | 36.0Comment: Testing | 34.0 - 46.0 % | EXTERNAL | | | POC | performed at [facility], [address] | | LAB | | | | [address], | | | | | | [place] [address] | | | | + + + + + + | MCV | 96.4Comment: Testing | 80.0 - 100.0 fl | EXTERNAL | | | | performed at [facility], [address] | | LAB | | | | [address], | | | | | | [place] [address] | | | | + + + + + + | MCH | 32.0Comment: Testing | 27.0 - 34.0 pg | EXTERNAL | | | | performed at [facility], [address] | | LAB | | | | [address], | | | | | | [place] [address] | | | | + + + + + + | MCHC | 33.1Comment: Testing | 32.0 - 35.5 | EXTERNAL | | | | performed at [facility], [address] | g/dL | LAB | | | | [address], | | | | | | [place] [address] | | | | + + + + + + | RDW-CV | 44.6Comment: Testing | 37 - 53 fl | EXTERNAL | | | | performed at [facility], [address] | | LAB | | | | [address], | | | | | | [place] [address] | | | | + + + + + + | Platelet | 139 (L)Comment: Testing | 150 - 400 K/uL | EXTERNAL | | | Count | performed at [facility], [address] | | LAB | | | Plasma | [address], | | | | | | [place] [address] | | | | + + + + + + | MPV | 8.7Comment: Testing | fl | EXTERNAL | | | | performed at [facility], [address] | | LAB | | | | [address], | | | | | | [place] [address] | | | | + + + + + + | Differentia | AUTOMATEDComment: | | EXTERNAL | | | l Type | Testing performed at | | LAB | | | | [facility], [address] | | | | | | [place] | | | | | | [address] | | | | + + + + + + | % Segmented | 49.1Comment: Testing | % | EXTERNAL | | | | performed at [facility], [address] | | LAB | | | Neutrophils | [address], | | | | | | [place] [address] | | | | + + + + + + | % | 32.4Comment: Testing | % | EXTERNAL | | | Lymphocytes | performed at [facility], [address] | | LAB | | | | [address], | | | | | | [place] [address] | | | | + + + + + + | % Monocytes | 11.9Comment: Testing | % | EXTERNAL | | | | performed at [facility], [address] | | LAB | | | | [address], | | | | | | [place] [address] | | | | + + + + + + | % | 5.7Comment: Testing | % | EXTERNAL | | | Eosinophils | performed at [facility], [address] | | LAB | | | | [address], | | | | | | [place] [address] | | | | + + + + + + | % Basophils | 0.9Comment: Testing | % | EXTERNAL | | | | performed at [facility], [address] | | LAB | | | | [address], | | | | | | [place] [address] | | | | + + + + + + | Absolute | 3.7Comment: Testing | 1.9 - 7.4 K/uL | EXTERNAL | | | Segmented | performed at [facility], [address] | | LAB | | | Neutrophils | [address], | | | | | | [place] [address] | | | | + + + + + + | Absolute | 2.4Comment: Testing | 1.0 - 3.9 K/uL | EXTERNAL | | | Lymphocytes | performed at [facility], [address] | | LAB | | | | [address], | | | | | | [place] [address] | | | | + + + + + + | Absolute | 0.9 (H)Comment: Testing | 0 - 0.8 K/uL | EXTERNAL | | | Monocytes | performed at [facility], [address] | | LAB | | | | [address], | | | | | | [place] [address] | | | | + + + + + + | Absolute | 0.4Comment: Testing | 0 - 0.5 K/uL | EXTERNAL | | | Eosinophils | performed at [facility], [address] | | LAB | | | | [address], | | | | | | [place] [address] | | | | + + + + + + | Absolute | 0.1Comment: Testing | 0 - 0.1 K/uL | EXTERNAL | | | Basophils | performed at [facility], [address] | | LAB | | | | [address], | | | | | | [place] [address] | | | | + + + [...] EXTERNAL | | | | performed at [facility], [address] | | LAB | | | | [address], | | | | | | [place] [address] | | | | + + + [...] EXTERNAL | | | | performed at [facility], [address] | | LAB | | | | [address], | | | | | | [place] [address] | | | | + + + [...] EXTERNAL | | | | performed at [facility], [address] | mmol/L | LAB | | | | [address], | | | | | | [place] [address] | | | | + + + + + + | K | 3.5Comment: Testing | 3.5 - 4.9 | EXTERNAL | | | | performed at [facility], [address] | mmol/L | LAB | | | | [address], | | | | | | [place] [address] | | | | + + + + + + | Cl | 109Comment: Testing | 99 - 109 mmol/L | EXTERNAL | | | | performed at [facility], [address] | | LAB | | | | [address], | | | | | | [place] [address] | | | | + + + + + + | CO2 | 24Comment: Testing | 23 - 32 mmol/L | EXTERNAL | | | | performed at [facility], [address] | | LAB | | | | [address], | | | | | | [place] [address] | | | | + + + + + + | Anion Gap | 11Comment: Testing | 5 - 20 mmol/L | EXTERNAL | | | | performed at [facility], [address] | | LAB | | | | [address], | | | | | | [place] [address] | | | | + + + + + + | Glucose, | 117 (H)Comment: Testing | 65 - 99 mg/dL | EXTERNAL | | | Fasting | performed at [facility], [address] | | LAB | | | | [address], | | | | | | [place] [address] | | | | + + + + + + | BUN | 18Comment: Testing | 8 - 25 mg/dL | EXTERNAL | | | | performed at [facility], [address] | | LAB | | | | [address], | | | | | | [place] [address] | | | | + + + + + + | Creatinine | 1.61 (H)Comment: Testing | 0.50 - 1.00 | EXTERNAL | | | | performed at [facility], [address] | mg/dL | LAB | | | | [address], | | | | | | [place] [address] | | | | + + + + + + | BUN/Creatin | 11Comment: Testing | | EXTERNAL | | | ine Ratio | performed at [facility], [address] | | LAB | | | | [address], | | | | | | [place] [address] | | | | + + + + + + | Calcium | 9.1Comment: Testing | 8.5 - 10.2 | EXTERNAL | | | | performed at [facility], [address] | mg/dL | LAB | | | | [address], | | | | | | [place] [address] | | | | + + + [...] | | | Fingerstick | performed at [facility];[address] | | LAB | | | | [address];[place], [place] | | | | | | [address] | | | | + + + [...] | | | Fingerstick | performed at [facility];[address] | | LAB | | | | [place] | | | | | | [address] | | | | + + + [...] | | | Fingerstick | performed at [facility];[address] | | LAB | | | | [place] | | | | | | [address] | | | | + + + [...] | | | Fingerstick | performed at [facility];[address] | | LAB | | | | [address];[place], [place] | | | | | | [address] | | | | + + + [...] | | | | | [place] [address] | | | | + + + + + + | RED CELL | 3.81Comment: Testing | 3.70 - 5.10 | EXTERNAL | | | COUNT | performed at [facility], [address] | M/uL | LAB | | | | [place], | | | | | | [place] [address] | | | | + + + + + + | Hgb | 12.2Comment: Testing | 11.3 - 15.5 | EXTERNAL | | | | performed at [facility], [address] | g/dL | LAB | | | | [address], | | | | | | [place] [address] | | | | + + + + + + | Hematocrit, | 36.6Comment: Testing | 34.0 - 46.0 % | EXTERNAL | | | POC | performed at [facility], [address] | | LAB | | | | [address], | | | | | | [place] [address] | | | | + + + + + + | MCV | 96.2Comment: Testing | 80.0 - 100.0 fl | EXTERNAL | | | | performed at [facility], [address] | | LAB | | | | [address], | | | | | | [place] [address] | | | | + + + + + + | MCH | 31.9Comment: Testing | 27.0 - 34.0 pg | EXTERNAL | | | | performed at [facility], [address] | | LAB | | | | [address], | | | | | | [place] [address] | | | | + + + + + + | MCHC | 33.2Comment: Testing | 32.0 - 35.5 | EXTERNAL | | | | performed at [facility], [address] | g/dL | LAB | | | | [address], | | | | | | [place] [address] | | | | + + + + + + | RDW-CV | 45.1Comment: Testing | 37 - 53 fl | EXTERNAL | | | | performed at [facility], [address] | | LAB | | | | [address], | | | | | | [place] [address] | | | | + + + + + + | Platelet | 136 (L)Comment: Testing | 150 - 400 K/uL | EXTERNAL | | | Count | performed at [facility], [address] | | LAB | | | Plasma | [address], | | | | | | [place] [address] | | | | + + + + + + | MPV | 8.7Comment: Testing | fl | EXTERNAL | | | | performed at [facility], [address] | | LAB | | | | [address], | | | | | | [place] [address] | | | | + + + + + + | Differentia | AUTOMATEDComment: | | EXTERNAL | | | l Type | Testing performed at | | LAB | | | | [facility], [address] | | | | | | [place] | | | | | | [address] | | | | + + + + + + | % Segmented | 51.5Comment: Testing | % | EXTERNAL | | | | performed at [facility], [address] | | LAB | | | Neutrophils | [address], | | | | | | [place] [address] | | | | + + + [...] | | | | | [place] [address] | | | | + + + + + + | % | 6.4Comment: Testing | % | EXTERNAL | | | Eosinophils | performed at [facility], [address] | | LAB | | | | [address], | | | | | | [place] [address] | | | | + + + + + + | % Basophils | 0.9Comment: Testing | % | EXTERNAL | | | | performed at [facility], [address] | | LAB | | | | [address], | | | | | | [place] [address] | | | | + + + + + + | Absolute | 3.5Comment: Testing | 1.9 - 7.4 K/uL | EXTERNAL | | | Segmented | performed at [facility], [address] | | LAB | | | Neutrophils | [address], | | | | | | [place] [address] | | | | + + + + + + | Absolute | 2.0Comment: Testing | 1.0 - 3.9 K/uL | EXTERNAL | | | Lymphocytes | performed at [facility], [address] | | LAB | | | | [address], | | | | | | [place] [address] | | | | + + + + + + | Absolute | 0.8Comment: Testing | 0 - 0.8 K/uL | EXTERNAL | | | Monocytes | performed at [facility], [address] | | LAB | | | | [address], | | | | | | [place] [address] | | | | + + + + + + | Absolute | 0.4Comment: Testing | 0 - 0.5 K/uL | EXTERNAL | | | Eosinophils | performed at [facility], [address] | | LAB | | | | [address], | | | | | | [place] [address] | | | | + + + + + + | Absolute | 0.1Comment: Testing | 0 - 0.1 K/uL | EXTERNAL | | | Basophils | performed at [facility], [address] | | LAB | | | | [address], | | | | | | [place] [address] | | | | + + + [...] EXTERNAL | | | | performed at [facility], [address] | | LAB | | | | [place], | | | | | | [place] [address] | | | | + + + [...] | | | | | [place] [address] | | | | + + + [...] | | | | | [place] [address] | | | | + + + + + + | K | 4.0Comment: Testing | 3.5 - 4.9 | EXTERNAL | | | | performed at [facility], [address] | mmol/L | LAB | | | | [address], | | | | | | [place] [address] | | | | + + + + + + | Cl | 113 (H)Comment: Testing | 99 - 109 mmol/L | EXTERNAL | | | | performed at [facility], [address] | | LAB | | | | [address], | | | | | | [place] [address] | | | | + + + + + + | CO2 | 22 (L)Comment: Testing | 23 - 32 mmol/L | EXTERNAL | | | | performed at [facility], [address] | | LAB | | | | [address], | | | | | | [place] [address] | | | | + + + + + + | Anion Gap | 9Comment: Testing | 5 - 20 mmol/L | EXTERNAL | | | | performed at [facility], [address] | | LAB | | | | [address], | | | | | | [place] [address] | | | | + + + + + + | Glucose, | 118 (H)Comment: Testing | 65 - 99 mg/dL | EXTERNAL | | | Fasting | performed at [facility], [address] | | LAB | | | | [address], | | | | | | [place] [address] | | | | + + + + + + | BUN | 18Comment: Testing | 8 - 25 mg/dL | EXTERNAL | | | | performed at [facility], [address] | | LAB | | | | [address], | | | | | | [place] [address] | | | | + + + + + + | Creatinine | 1.24 (H)Comment: Testing | 0.50 - 1.00 | EXTERNAL | | | | performed at [facility], [address] | mg/dL | LAB | | | | [address], | | | | | | [place] [address] | | | | + + + + + + | BUN/Creatin | 15Comment: Testing | | EXTERNAL | | | ine Ratio | performed at [facility], [address] | | LAB | | | | [address], | | | | | | [place] [address] | | | | + + + + + + | Calcium | 9.1Comment: Testing | 8.5 - 10.2 | EXTERNAL | | | | performed at [facility], [address] | mg/dL | LAB | | | | [address], | | | | | | [place] [address] | | | | + + + [...] | | | | | | at [facility], [address] | | | | | | [place], | | | | | | [place] [address] | | | | + + + [...] | | | Fingerstick | performed at [facility];[address] | | LAB | | | | [address];[place], [place] | | | | | | [address] | | | | + + + [...] | | | Fingerstick | performed at [facility];[address] | | LAB | | | | [place] | | | | | | [address] | | | | + + + [...] | | LAB | | | | [facility];[address] | | [address];[place] [address] | | | | + + + + + + | Time of | NOT GIVENComment: | | EXTERNAL | | | Last Dose | Testing performed at | | LAB | | | | [facility];[address] | | [address];[place] [address] | | | | + + + + + + | Digoxin | 1.4Comment: Testing | 0.90 - 2.00 | EXTERNAL | | | level | performed at [facility];[address] | ng/mL | LAB | | | | [address];[place] | | | | | | [address] | | | | + + + [...] | | | Fingerstick | performed at [facility];[address] | | LAB | | | | [place] | | | | | | [address] | | | | + + + [...] | | | Fingerstick | performed at [facility];[address] | | LAB | | | | [address];[place] | | | | | | [address] | | | | + + + [...] | | | | | [place] [address] | | | | + + + + + + | RED CELL | 3.74Comment: Testing | 3.70 - 5.10 | EXTERNAL | | | COUNT | performed at [facility], [address] | M/uL | LAB | | | | [address], | | | | | | [place] [address] | | | | + + + + + + | Hgb | 12.1Comment: Testing | 11.3 - 15.5 | EXTERNAL | | | | performed at [facility], [address] | g/dL | LAB | | | | [address], | | | | | | [place] [address] | | | | + + + + + + | Hematocrit, | 36.3Comment: Testing | 34.0 - 46.0 % | EXTERNAL | | | POC | performed at [facility], [address] | | LAB | | | | [address], | | | | | | [place] [address] | | | | + + + + + + | MCV | 97.2Comment: Testing | 80.0 - 100.0 fl | EXTERNAL | | | | performed at [facility], [address] | | LAB | | | | [address], | | | | | | [place] [address] | | | | + + + + + + | MCH | 32.4Comment: Testing | 27.0 - 34.0 pg | EXTERNAL | | | | performed at [facility], [address] | | LAB | | | | [address], | | | | | | [place] [address] | | | | + + + + + + | MCHC | 33.3Comment: Testing | 32.0 - 35.5 | EXTERNAL | | | | performed at [facility], [address] | g/dL | LAB | | | | [address], | | | | | | [place] [address] | | | | + + + + + + | RDW-CV | 44.2Comment: Testing | 37 - 53 fl | EXTERNAL | | | | performed at [facility], [address] | | LAB | | | | [address], | | | | | | [place] [address] | | | | + + + + + + | Platelet | 140 (L)Comment: Testing | 150 - 400 K/uL | EXTERNAL | | | Count | performed at [facility], [address] | | LAB | | | Plasma | [address], | | | | | | [place] [address] | | | | + + + + + + | MPV | 8.6Comment: Testing | fl | EXTERNAL | | | | performed at [facility], [address] | | LAB | | | | [place], | | | | | | [place] [address] | | | | + + + + + + | Differentia | AUTOMATEDComment: | | EXTERNAL | | | l Type | Testing performed at | | LAB | | | | [facility], [address] | | | | | | [place] | | | | | | [address] | | | | + + + + + + | % Segmented | 46.5Comment: Testing | % | EXTERNAL | | | | performed at [facility], [address] | | LAB | | | Neutrophils | [address], | | | | | | [place] [address] | | | | + + + + + + | % | 33.1Comment: Testing | % | EXTERNAL | | | Lymphocytes | performed at [facility], [address] | | LAB | | | | [address], | | | | | | [place] [address] | | | | + + + + + + | % Monocytes | 12.6Comment: Testing | % | EXTERNAL | | | | performed at [facility], [address] | | LAB | | | | [address], | | | | | | [place] [address] | | | | + + + + + + | % | 6.9Comment: Testing | % | EXTERNAL | | | Eosinophils | performed at [facility], [address] | | LAB | | | | [address], | | | | | | [place] [address] | | | | + + + + + + | % Basophils | 0.9Comment: Testing | % | EXTERNAL | | | | performed at [facility], [address] | | LAB | | | | [address], | | | | | | [place] [address] | | | | + + + + + + | Absolute | 3.3Comment: Testing | 1.9 - 7.4 K/uL | EXTERNAL | | | Segmented | performed at [facility], [address] | | LAB | | | Neutrophils | [address], | | | | | | [place] [address] | | | | + + + + + + | Absolute | 2.4Comment: Testing | 1.0 - 3.9 K/uL | EXTERNAL | | | Lymphocytes | performed at [facility], [address] | | LAB | | | | [address], | | | | | | [place] [address] | | | | + + + + + + | Absolute | 0.9 (H)Comment: Testing | 0 - 0.8 K/uL | EXTERNAL | | | Monocytes | performed at [facility], [address] | | LAB | | | | [address], | | | | | | [place] [address] | | | | + + + + + + | Absolute | 0.5Comment: Testing | 0 - 0.5 K/uL | EXTERNAL | | | Eosinophils | performed at [facility], [address] | | LAB | | | [address], | | | | | | [place] [address] | | | | + + + + + + | Absolute | 0.1Comment: Testing | 0 - 0.1 K/uL | EXTERNAL | | | Basophils | performed at [facility], [address] | | LAB | | | | [address], | | | | | | [place] [address] | | | | + + + [...] EXTERNAL | | | | performed at [facility], [address] | | LAB | | | | [place], | | | | | | [place] [address] | | | | + + + [...] EXTERNAL | | | | performed at [facility], [address] | | LAB | | | | [address], | | | | | | [place] [address] | | | | + + + [...] | | | | | [place] [address] | | | | + + + + + + | K | 4.3Comment: Testing | 3.5 - 4.9 | EXTERNAL | | | | performed at [facility], [address] | mmol/L | LAB | | | | [place] [address], | | | | | | [place] [address] | | | | + + + + + + | Cl | 112 (H)Comment: Testing | 99 - 109 mmol/L | EXTERNAL | | | | performed at [facility], [address] | | LAB | | | | [address], | | | | | | [place] [address] | | | | + + + + + + | CO2 | 23Comment: Testing | 23 - 32 mmol/L | EXTERNAL | | | | performed at [facility], [address] | | LAB | | | | [address], | | | | | | [place] [address] | | | | + + + + + + | Anion Gap | 10Comment: Testing | 5 - 20 mmol/L | EXTERNAL | | | | performed at [facility], [address] | | LAB | | | | [address], | | | | | | [place] [address] | | | | + + + + + + | Glucose, | 100 (H)Comment: Testing | 65 - 99 mg/dL | EXTERNAL | | | Fasting | performed at [facility], [address] | | LAB | | | | [address], | | | | | | [place] [address] | | | | + + + + + + | BUN | 31 (H)Comment: Testing | 8 - 25 mg/dL | EXTERNAL | | | | performed at [facility], [address] | | LAB | | | | [place], | | | | | | [place] [address] | | | | + + + + + + | Creatinine | 1.80 (H)Comment: Testing | 0.50 - 1.00 | EXTERNAL | | | | performed at [facility], [address] | mg/dL | LAB | | | | [address], | | | | | | [place] [address] | | | | + + + + + + | BUN/Creatin | 17Comment: Testing | | EXTERNAL | | | ine Ratio | performed at [facility], [address] | | LAB | | | [address], | | | | | | [place] [address] | | | | + + + + + + | Calcium | 8.9Comment: Testing | 8.5 - 10.2 | EXTERNAL | | | | performed at [facility], [address] | mg/dL | LAB | | | | [facility], | | | | | | [place] [address] | | | | + + + [...] W | | | | | | [facility], | | | | | | [place] [address] | | | | + + + [...] | | | Fingerstick | performed at [facility];[address] | | LAB | | | | [address];[place], [place] | | | | | | [address] | | | | + + + [...] | | | Fingerstick | performed at [facility];[address] | | LAB | | | | [address];[place], [place] | | | | | | [address] | | | | + + + [...] | | | Fingerstick | performed at [facility];[address] | | LAB | | | | [place] | | | | | | [address] | | | | + + + [...] | | | Fingerstick | performed at [facility];[address] | | LAB | | | | [address];[place], [place] | | | | | | [address] | | | | + + + [...] EXTERNAL | | | | performed at [facility], [address] | | LAB | | | | [place], | | | | | | [place] [address] | | | | + + + + + + | RED CELL | 3.87Comment: Testing | 3.70 - 5.10 | EXTERNAL | | | COUNT | performed at [facility], [address] | M/uL | LAB | | | | [place], | | | | | | [place] [address] | | | | + + + + + + | Hgb | 12.4Comment: Testing | 11.3 - 15.5 | EXTERNAL | | | | performed at [facility], [address] | g/dL | LAB | | | | [address], | | | | | | [place] [address] | | | | + + + + + + | Hematocrit, | 37.3Comment: Testing | 34.0 - 46.0 % | EXTERNAL | | | POC | performed at [facility], [address] | | LAB | | | | [address], | | | | | | [place] [address] | | | | + + + + + + | MCV | 96.4Comment: Testing | 80.0 - 100.0 fl | EXTERNAL | | | | performed at [facility], [address] | | LAB | | | | [address], | | | | | | [place] [address] | | | | + + + + + + | MCH | 32.1Comment: Testing | 27.0 - 34.0 pg | EXTERNAL | | | | performed at [facility], [address] | | LAB | | | | [address], | | | | | | [place] [address] | | | | + + + + + + | MCHC | 33.3Comment: Testing | 32.0 - 35.5 | EXTERNAL | | | | performed at [facility], [address] | g/dL | LAB | | | | [address], | | | | | | [place] [address] | | | | + + + + + + | RDW-CV | 44.6Comment: Testing | 37 - 53 fl | EXTERNAL | | | | performed at [facility], [address] | | LAB | | | | [address], | | | | | | [place] [address] | | | | + + + + + + | Platelet | 153Comment: Testing | 150 - 400 K/uL | EXTERNAL | | | Count | performed at [facility], [address] | | LAB | | | Plasma | [address], | | | | | | [place] [address] | | | | + + + + + + | MPV | 8.6Comment: Testing | fl | EXTERNAL | | | | performed at [facility], [address] | | LAB | | | | [address], | | | | | | [place] [address] | | | | + + + + + + | Differentia | AUTOMATEDComment: | | EXTERNAL | | | l Type | Testing performed at | | LAB | | | | [facility], [address] | | | | | | [place] | | | | | | [address] | | | | + + + + + + | % Segmented | 45.8Comment: Testing | % | EXTERNAL | | | | performed at [facility], [address] | | LAB | | | Neutrophils | [address], | | | | | | [place] [address] | | | | + + + + + + | % | 34.8Comment: Testing | % | EXTERNAL | | | Lymphocytes | performed at [facility], [address] | | LAB | | | | [address], | | | | | | [place] [address] | | | | + + + + + + | % Monocytes | 13.3Comment: Testing | % | EXTERNAL | | | | performed at [facility], [address] | | LAB | | | | [address], | | | | | | [place] [address] | | | | + + + + + + | % | 5.1Comment: Testing | % | EXTERNAL | | | Eosinophils | performed at [facility], [address] | | LAB | | | | [address], | | | | | | [place] [address] | | | | + + + + + + | % Basophils | 1.0Comment: Testing | % | EXTERNAL | | | | performed at [facility], [address] | | LAB | | | | [address], | | | | | | [place] [address] | | | | + + + + + + | Absolute | 3.2Comment: Testing | 1.9 - 7.4 K/uL | EXTERNAL | | | Segmented | performed at [facility], [address] | | LAB | | | Neutrophils | [address], | | | | | | [place] [address] | | | | + + + + + + | Absolute | 2.4Comment: Testing | 1.0 - 3.9 K/uL | EXTERNAL | | | Lymphocytes | performed at [facility], [address] | | LAB | | | | [address], | | | | | | [place] [address] | | | | + + + + + + | Absolute | 0.9 (H)Comment: Testing | 0 - 0.8 K/uL | EXTERNAL | | | Monocytes | performed at [facility], [address] | | LAB | | | | [address], | | | | | | [place] [address] | | | | + + + + + + | Absolute | 0.4Comment: Testing | 0 - 0.5 K/uL | EXTERNAL | | | Eosinophils | performed at [facility], [address] | | LAB | | | | [address], | | | | | | [place] [address] | | | | + + + + + + | Absolute | 0.1Comment: Testing | 0 - 0.1 K/uL | EXTERNAL | | | Basophils | performed at [facility], [address] | | LAB | | | | [address], | | | | | | [place] [address] | | | | + + + [...] EXTERNAL | | | | performed at [facility], [address] | | LAB | | | | [place], | | | | | | [place] [address] | | | | + + + [...] EXTERNAL | | | | performed at [facility], [address] | | LAB | | | | [place] [address], | | | | | | [place] [address] | | | | + + + [...] | | | | | [place] [address] | | | | + + + + + + | K | 4.2Comment: Testing | 3.5 - 4.9 | EXTERNAL | | | | performed at [facility], [address] | mmol/L | LAB | | | | [place], | | | | | | [place] [address] | | | | + + + + + + | Cl | 111 (H)Comment: Testing | 99 - 109 mmol/L | EXTERNAL | | | | performed at [facility], [address] | | LAB | | | | [address], | | | | | | [place] [address] | | | | + + + + + + | CO2 | 22 (L)Comment: Testing | 23 - 32 mmol/L | EXTERNAL | | | | performed at [facility], [address] | | LAB | | | | [address], | | | | | | [place] [address] | | | | + + + + + + | Anion Gap | 9Comment: Testing | 5 - 20 mmol/L | EXTERNAL | | | | performed at [facility], [address] | | LAB | | | | [address], | | | | | | [place] [address] | | | | + + + + + + | Glucose, | 101 (H)Comment: Testing | 65 - 99 mg/dL | EXTERNAL | | | Fasting | performed at [facility], [address] | | LAB | | | | [address], | | | | | | [place] [address] | | | | + + + + + + | BUN | 50 (H)Comment: Testing | 8 - 25 mg/dL | EXTERNAL | | | | performed at [facility], [address] | | LAB | | | | [address], | | | | | | [place] [address] | | | | + + + + + + | Creatinine | 2.27 (H)Comment: Testing | 0.50 - 1.00 | EXTERNAL | | | | performed at [facility], [address] | mg/dL | LAB | | | | [address], | | | | | | [place] [address] | | | | + + + + + + | BUN/Creatin | 22Comment: Testing | | EXTERNAL | | | ine Ratio | performed at [facility], [address] | | LAB | | | | [address], | | | | | | [place] [address] | | | | + + + + + + | Calcium | 10.1Comment: Testing | 8.5 - 10.2 | EXTERNAL | | | | performed at [facility], [address] | mg/dL | LAB | | | | [address], | | | | | | [place] [address] | | | | + + + [...] [address], | | | | | | [place] [address] | | | | + + + [...] | | | Fingerstick | performed at [facility] | | LAB | | | | [place] [address];[place] | | | | | | [address] | | | | + + + [...] | | | Fingerstick | performed at [facility];[address] | | LAB | | | | Gela Santos;[place] | | | | | | [address] | | | | + + + [...] | | | Fingerstick | performed at [facility];[address] | | LAB | | | | Gela Santos;[place] | | | | | | [address] | | | | + + + [...] | | | Nitrogen, | performed at [facility], [address] | | LAB | | | Urine | [place], | | | | | | [place] [address] | | | | + + + [...] LAB | | | | performed at [facility], [address] | | | | | | [facility], | | | | | | [place] [address] | | | | + + + [...] EXTERNAL | | | | performed at [facility], [address] | | LAB | | | | [address]arl[address] [employer], | | | | | | [place] [address] | | | | + + + + + + | Clarity | CLOUDYComment: Testing | | EXTERNAL | | | | performed at [facility], [address] | | LAB | | | | [address] [employer], | | | | | | [place] [address] | | | | + + + + + + | Specific | 1.015Comment: Testing | 1.002 - 1.030 | EXTERNAL | | | [place] | performed at [facility], [address] | [...] [place] | | | | | | [address] | | | | + + + + + + | Nitrite, | NEGATIVEComment: Testing | | EXTERNAL | | | Urine | performed at [facility], [address] | | LAB | | | | [address], | | | | | | [place] [address] | | | | + + + + + + | Urobilinoge | 0.2Comment: Testing | mg/dL | EXTERNAL | | | n, Urine | performed at [facility], [address] | | LAB | | | | [address], | | | | | | [place] [address] | | | | + + + + + + | Protein, | 30 (A)Comment: Testing | mg/dL | EXTERNAL | | | Urine | performed at [facility], [address] | | LAB | | | | Darlene [place], | | | | | | [place] [address] | | | | + + + + + + | pH, Urine | 5.5Comment: Testing | 5.0 - 8.0 | EXTERNAL | | | | performed at [facility], [address] | | LAB | | | | [place], | | | | | | [place] [address] | | | | + + + + + + | Blood, | MODERATE (A)Comment: | | EXTERNAL | | | Urine | Testing performed at | | LAB | | | | [facility], [address] | | | | | | [place] | | | | | | [address] | | | | + + + + + + | Ketones | NEGATIVEComment: Testing | mg/dL | EXTERNAL | | | | performed at [facility], [address] | | LAB | | | | [address] [place], | | | | | | [place] [address] | | | | + + + + + + | Bilirubin, | NEGATIVEComment: Testing | | EXTERNAL | | | Urine | performed at [facility], [address] | | LAB | | | | [address], | | | | | | [place] [address] | | | | + + + + + + | Glucose, | NEGATIVEComment: Testing | mg/dL | EXTERNAL | | | Urine | performed at [facility], [address] | | LAB | | | | [address], | | | | | | [place] [address] | | | | + + + + + + | WBC, UA | 26-50Comment: Testing | 0 - 5 /hpf | EXTERNAL | | | | performed at [facility], [address] | | LAB | | | | [address], | | | | | | [place] [address] | | | | + + + + + + | RBC, UA | 16-25Comment: Testing | 0 - 5 /hpf | EXTERNAL | | | | performed at [facility], [address] | | LAB | | | | [address], | | | | | | [place] [address] | | | | + + + + + + | Epithelial | 1-5Comment: Testing | /lpf | EXTERNAL | | | Cells | performed at [facility], [address] | | LAB | | | | [address], | | | | | | [place] [address] | | | | + + + + + + | Bacteria, | NONE SEENComment: | | EXTERNAL | | | UA | CULTURE TO FOLLOWTesting | | LAB | | | | performed at [facility], [address] | | | | | | [address], | | | | | | [place] [address] | | | | + + + + + + | HYALINE | 0-2Comment: Testing | | EXTERNAL | | | CASTS UA | performed at [facility], [address] | | LAB | | | | [address], | | | | | | [place] [address] | | | | + + + [...] | | | | | [place] [address] | | | | + + + [...] | | | Urine | performed at [facility], [address] | | LAB | | | | [address], | | | | | | [place] [address] | | | | + + + [...] | | | | | | ACUTE NE Testing | | | | | | performed at [facility];[address] | | | | | | [facility];[place], [place] | | | | | | [address] | | | | + + + [...] | | | | | [place] [address] | | | | + + + + + + | RED CELL | 4.09Comment: Testing | 3.70 - 5.10 | EXTERNAL | | | COUNT | performed at [facility], [address] | M/uL | LAB | | | | [address], | | | | | | [place] [address] | | | | + + + + + + | Hgb | 13.1Comment: Testing | 11.3 - 15.5 | EXTERNAL | | | | performed at [facility], [address] | g/dL | LAB | | | | [address], | | | | | | [place] [address] | | | | + + + + + + | Hematocrit, | 39.5Comment: Testing | 34.0 - 46.0 % | EXTERNAL | | | POC | performed at [facility], [address] | | LAB | | | | [address], | | | | | | [place] [address] | | | | + + + + + + | MCV | 96.4Comment: Testing | 80.0 - 100.0 fl | EXTERNAL | | | | performed at [facility], [address] | | LAB | | | | [address], | | | | | | [place] [address] | | | | + + + + + + | MCH | 32.0Comment: Testing | 27.0 - 34.0 pg | EXTERNAL | | | | performed at [facility], [address] | | LAB | | | | [address], | | | | | | [place] [address] | | | | + + + + + + | MCHC | 33.2Comment: Testing | 32.0 - 35.5 | EXTERNAL | | | | performed at [facility], [address] | g/dL | LAB | | | | [address], | | | | | | [place] [address] | | | | + + + + + + | RDW-CV | 45.5Comment: Testing | 37 - 53 fl | EXTERNAL | | | | performed at [facility], [address] | | LAB | | | | [address], | | | | | | [place] [address] | | | | + + + + + + | Platelet | 165Comment: Testing | 150 - 400 K/uL | EXTERNAL | | | Count | performed at [facility], [address] | | LAB | | | Plasma | [address], | | | | | | [place] [address] | | | | + + + + + + | MPV | 8.5Comment: Testing | fl | EXTERNAL | | | | performed at [facility], [address] | | LAB | | | | [address], | | | | | | [place] [address] | | | | + + + + + + | Differentia | AUTOMATEDComment: | | EXTERNAL | | | l Type | Testing performed at | | LAB | | | | [facility], [address] | | | | | | [place] | | | | | | [address] | | | | + + + + + + | % Segmented | 46.7Comment: Testing | % | EXTERNAL | | | | performed at [facility], [address] | | LAB | | | Neutrophils | [address], | | | | | | [place] [address] | | | | + + + + + + | % | 34.8Comment: Testing | % | EXTERNAL | | | Lymphocytes | performed at [facility], [address] | | LAB | | | | [address], | | | | | | [place] [address] | | | | + + + + + + | % Monocytes | 12.8Comment: Testing | % | EXTERNAL | | | | performed at [facility], [address] | | LAB | | | | [address], | | | | | | [place] [address] | | | | + + + + + + | % | 4.5Comment: Testing | % | EXTERNAL | | | Eosinophils | performed at [facility], [address] | | LAB | | | | [address], | | | | | | [place] [address] | | | | + + + + + + | % Basophils | 1.2Comment: Testing | % | EXTERNAL | | | | performed at [facility], [address] | | LAB | | | | [address], | | | | | | [place] [address] | | | | + + + + + + | Absolute | 3.5Comment: Testing | 1.9 - 7.4 K/uL | EXTERNAL | | | Segmented | performed at [facility], [address] | | LAB | | | Neutrophils | [address], | | | | | | [place] [address] | | | | + + + + + + | Absolute | 2.6Comment: Testing | 1.0 - 3.9 K/uL | EXTERNAL | | | Lymphocytes | performed at [facility], [address] | | LAB | | | | [address], | | | | | | [place] [address] | | | | + + + + + + | Absolute | 1.0 (H)Comment: Testing | 0 - 0.8 K/uL | EXTERNAL | | | Monocytes | performed at [facility], [address] | | LAB | | | | [address], | | | | | | [place] [address] | | | | + + + + + + | Absolute | 0.3Comment: Testing | 0 - 0.5 K/uL | EXTERNAL | | | Eosinophils | performed at [facility], [address] | | LAB | | | | [address], | | | | | | [place] [address] | | | | + + + + + + | Absolute | 0.1Comment: Testing | 0 - 0.1 K/uL | EXTERNAL | | | Basophils | performed at [facility], [address] | | LAB | | | | [address], | | | | | | [place] [address] | | | | + + + [...] EXTERNAL | | | | performed at [facility];[address] | | LAB | | | | [address];[place] | | | | | | [address] | | | | + + + [...] EXTERNAL | | | | performed at [facility], [address] | | LAB | | | | [address], | | | | | | [place] [address] | | | | + + + [...] | | | | | [place] [address] | | | | + + + + + + | K | 4.4Comment: Testing | 3.5 - 4.9 | EXTERNAL | | | | performed at [facility], [address] | mmol/L | LAB | | | | [address], | | | | | | [place] [address] | | | | + + + + + + | Cl | 107Comment: Testing | 99 - 109 mmol/L | EXTERNAL | | | | performed at [facility], [address] | | LAB | | | | [address], | | | | | | [place] [address] | | | | + + + + + + | CO2 | 20 (L)Comment: Testing | 23 - 32 mmol/L | EXTERNAL | | | | performed at [facility], [address] | | LAB | | | | [address], | | | | | | [place] [address] | | | | + + + + + + | Anion Gap | 13Comment: Testing | 5 - 20 mmol/L | EXTERNAL | | | | performed at [facility], [address] | | LAB | | | | [address], | | | | | | [place] [address] | | | | + + + + + + | Glucose, | 107 (H)Comment: Testing | 65 - 99 mg/dL | EXTERNAL | | | Fasting | performed at [facility], [address] | | LAB | | | | [address], | | | | | | [place] [address] | | | | + + + + + + | BUN | 66 (H)Comment: Testing | 8 - 25 mg/dL | EXTERNAL | | | | performed at [facility], [address] | | LAB | | | | [address], | | | | | | [place] [address] | | | | + + + + + + | Creatinine | 3.00 (H)Comment: Testing | 0.50 - 1.00 | EXTERNAL | | | | performed at [facility], [address] | mg/dL | LAB | | | | [address], | | | | | | [place] [address] | | | | + + + + + + | Calcium | 9.2Comment: Testing | 8.5 - 10.2 | EXTERNAL | | | | performed at [facility], [address] | mg/dL | LAB | | | | [address], | | | | | | [place] [address] | | | | + + + + + + | Albumin | 3.7Comment: Testing | 3.3 - 4.8 g/dL | EXTERNAL | | | | performed at [facility], [address] | | LAB | | | | [address], | | | | | | [place] [address] | | | | + + + + + + | PHOSPHORUS | 4.6Comment: Testing | 2.3 - 4.8 mg/dL | EXTERNAL | | | | performed at [facility], [address] | | LAB | | | | [address], | | | | | | [place] [address] | | | | + + + [...] | | | | | [place] [address] | | | | + + + [...] | | | Fingerstick | performed at [facility];[address] | | LAB | | | | [address];[place], [place] | | | | | | [address] | | | | + + + [...] | | | | | | ACUTE NE Testing | | | | | | performed at [facility];[address] | | | | | | [facility];[place], [place] | | | | | | [address] | | | | + + + [...] | | | Fingerstick | performed at [facility];[address] | | LAB | | | | [address];[place] | | | | | | [address] | | | | + + + [...] Conversion - 11/26/2018 3:41 PM PDT TAMIKO PRICE89 years FemaleXR | | CHEST 2 [...] Hypotension, unspecified | + + | Cardiomyopathy ([facility]) Other primary cardiomyopathies | + + | DM (diabetes mellitus) ([facility]) Type II or unspecified type diabetes mellitus without | | mention of complication, not stated as uncontrolled | + + | CHF (congestive heart failure) ([facility]) Congestive heart failure, unspecified | + + | Urinary tract infection, site not specified | + + | Hypokalemia Hypopotassemia | + + | Essential hypertension, benign | + + documented in this encounter
--- OUTSIDE RECORDS SUMMARY | ~2019-03-06 | XMS | Encounter Summary ---
Demographics + + + | Address | [address] | | | [place] [address] | + + + | Home Phone [...] [place], [place] | | | | | [address] | | + + + + + | Rivka Palma | ECON | Unknown | | + + + + + | Geno Kendall | ECON | Unknown | | + + + + + Care Team Providers + +------+ + | Care Ultrasound Spec Name | Role | Phone | + +------+ + | Lorenzo Valdes MD | PCP | | + +------+ + Encounter Details +--------+ + + + + | Date | Type | Department | Care Team | Description | +--------+ + + + + | 08/02/ | Hospital | [facility] | Conversion | Pleural effusion | | 2015 | Encounter | [facility] | Transaction, | | | | | [address] | Provider Unknown | | | | | [place], [place] | [phone] | | | | | [address] | | | | | | [phone] | | | +--------+ + + + [...] | | ([facility]), Bronchitis, | | | | | | | obstructive, chronic | | | | | | | ([facility]) | | | | | | + [...] [place] | | | | | | [address] | | | | | | | [...] [place] | | | | | | [address] | | | | | | | | +--------+ + + + + documented as of this encounter Procedures + +--------+ + + + | Procedure Name | Priori | Date/Time | Associated Diagnosis | Comments | | | ty | | | | + +--------+ + + + | CULTURE, BODY FLUID, | Timed | 08/02/2014 | | Results for this | | STERILE, SMEAR, | | 2:37 PM | | procedure are in the | | WITH ANAEROBES | | PDT | | results section. | + +--------+ + + + | XR CHEST 1 VIEW | Routin | 08/02/2014 | | Results for this | | | e | 2:31 PM | | procedure are in the | | | | PDT | | results section. | + +--------+ + + + | US GUIDED | Routin | 08/02/2014 | | Results for this | | THORACENTESIS WO | e | 1:49 PM | | procedure are in the | | CHEST TUBE | | PDT | | results section. | + +--------+ + + + | EXTERNAL LAB: CBC | Routin | 08/02/2014 | | Results for this | | | e | 1:02 PM | | procedure are in the | | | | PDT | | results section. | + +--------+ + + + | PROTIME INR | Routin | 08/02/2014 | | Results for this | | | e | 1:02 PM | | procedure are in the | | | | PDT | | results section. | + +--------+ + + + | BASIC METABOLIC | Routin | 08/02/2014 | | Results for this | | PANEL | e | 1:02 PM | | procedure are in the | | | | PDT | | results section. | + +--------+ + + + documented in this encounter Results Culture, Body Fluid, Sterile, Smear, with Anaerobes (08/02/2014 2:37 PM PDT) + + | Specimen | + + | | + + + + + | Narrative | Performed At | + + + | Specimen Description PLEURAL FLUID GRAM STAIN | EXTERNAL LAB | | NO CELLS OR ORGANISMS SEEN | | | CULTURE NO GROWTH | | | Testing performed at [facility], | | | [address] [place] [address] | | + + + + +---------+ + + | Performing | Address | City/State/Zipcode | Phone Number | | Organization | | | | + +---------+ + + | EXTERNAL LAB | | | | + +---------+ + + XR Chest 1 Vw (08/02/2014 2:31 PM PDT) + + | Specimen | + + | | + + + + + | Impressions | Performed At | + + + | 1. No pneumothorax post thoracentesis Electronically | | | signed by Thomas Mccord MD on 08/02/2014 2:43 PM | | + + + + + + | Narrative | Performed At | + + + | HISTORY: 84-year-old female, post left thoracentesis TECHNIQUE: | | | 1. Frontal and lateral upright expiration view radiographic | | | examination of the chest. 02 August. 14:08 Prior study for review : | | | February FINDINGS: Cardiomegaly, sternal wires and multilead | | | pacing system, all unchanged Low lung volumes with an element of | | | interstitial edema and atelectasis, but there is no pneumothorax | | | Stable skeleton | | + + + + + | Procedure Note | + + | Ross, Rad Conversion - 11/26/2018 5:27 AM PDT HISTORY: 84-year-old female, post left | | thoracentesis TECHNIQUE: 1. Frontal and lateral upright expiration view radiographic | | examination of the chest. 02 August. 14:08Prior study for review : 07 March FINDINGS: | | Cardiomegaly, sternal wires and multilead pacing system, all unchanged Low lung volumes | | with an element of interstitial edema and atelectasis, but there is no pneumothorax | | Stable skeleton IMPRESSION: 1. No pneumothorax post thoracentesis Electronically | | signed by Thomas Mccord MD on 08/02/2014 2:43 PM | |FINDINGS: | | | |Cardiomegaly, sternal wires and multilead pacing system, all unchanged | | | |Low lung volumes with an element of interstitial edema and atelectasis, but there is no pne umothorax | | | |Stable skeleton | | | |IMPRESSION: | | | |1. No pneumothorax post thoracentesis | | | | | | | | | + + US Guided Thoracentesis wo Chest Tube (08/02/2014 1:49 PM PDT) + + | Specimen | + + | | + + + + + | Impressions | Performed At | + + + | 1. Successful ultrasound guided thoracentesis. 2. Chest x-ray | | | is pending prior to discharge. | | + + + + + + | Narrative | Performed At | + + + | TAMIKO CROCKETT 1930 US THORACENTESIS WITH IMAGING GUIDANCE | | | 08/02/2014 1:49 PM HISTORY: Shortness of breath, pleural effusion | | | COMPARISON: None. DESCRIPTION OF PROCEDURE Written informed | | | consent was obtained. A timeout was performed. Where and as | | | appropriate, marking of side and/or site upon the patient was directly | | | performed by the physician performing the procedure, antecedent to | | | both imaging and intervention. The patient was placed in the upright | | | position. Real-time sonographic imaging was performed with a curved | | | array transducer over the chest. A skin site over the pleural fluid | | | was selected and marked. The skin was then prepped and draped in the | | | usual sterile fashion. The skin and deeper tissues were anesthetized | | | with 1% lidocaine buffered with sodium bicarbonate. A small | | | dermatotomy is performed. The thoracentesis needle is advanced until | | | prompt return of serous fluid. A total of 200 mL is removed. All | | | needles were removed and the area was bandaged. The patient tolerated | | | the procedure well. COMPLICATIONS: None. | | + + + + + | Procedure Note | + + | Ross, Rad Conversion - 11/26/2018 5:27 AM PDT TAMIKO PRICE1931US THORACENTESIS | | WITH IMAGING GUIDANCE08/02/2014 1:49 PM HISTORY: Shortness of breath, pleural effusion | | COMPARISON: None. DESCRIPTION OF PROCEDUREWritten informed consent was obtained. A | | timeout was performed. Where and as appropriate, marking of side and/or site upon the | | patient was directly performed by the physician performing the procedure, antecedent to | | both imaging and intervention.The patient was placed in the upright position. Real-time | | sonographic imaging was performed with a curved array transducer over the chest. A | | skin site over the pleural fluid was selected and marked. The skin was then prepped and | | draped in the usual sterile fashion. The skin and deeper tissues were anesthetized with | | 1% lidocaine buffered with sodium bicarbonate. A small dermatotomy is performed. The | | thoracentesis needle is advanced until prompt return of serous fluid. A total of 200 mL | | is removed. All needles were removed and the area was bandaged. The patient tolerated | | the procedure well. COMPLICATIONS: None. IMPRESSION: 1. Successful ultrasound guided | | thoracentesis.2. Chest x-ray is pending prior to discharge. | | | |COMPLICATIONS: None. | | | |IMPRESSION: | |1. Successful ultrasound guided thoracentesis. | |2. Chest x-ray is pending prior to discharge. | | | | | + + Protime INR (08/02/2014 1:02 PM PDT) + + + + + [...] | | | | | performed at [facility] | | | | | | [address] [facility];[place], [place] | | | | | | [address] | | | | + + + [...] + +---------+ + + External Lab: CBC (08/02/2014 1:02 PM PDT) + + + + + + | Component | Value | Ref Range | Performed | Pathologist | | | | | At | Signature | + + + + + + | WBC | 14.26 (H)Comment: | 3.80 - 11.00 | EXTERNAL | | | | Testing performed at | K/uL | LAB | | | | [facility], [address] | | | | | | [place] | | | | | | [address] | | | | + + + + + + | RED CELL | 5.03Comment: Testing | 3.70 - 5.10 | EXTERNAL | | | COUNT | performed at [facility], [address] | M/uL | LAB | | | | [address] [place], | | | | | | [place] [address] | | | | + + + + + + | Hgb | 15.0Comment: Testing | 11.3 - 15.5 | EXTERNAL | | | | performed at [facility], [address] | g/dL | LAB | | | | [address], | | | | | | [place] [address] | | | | + + + + + + | Hematocrit, | 46.0Comment: Testing | 34.0 - 46.0 % | EXTERNAL | | | POC | performed at [facility], [address] | | LAB | | | | [place] [place], | | | | | | [place] [address] | | | | + + + + + + | MCV | 91.6Comment: Testing | 80.0 - 100.0 fl | EXTERNAL | | | | performed at [facility], [address] | | LAB | | | | [address], | | | | | | [place] [address] | | | | + + + + + + | MCH | 29.9Comment: Testing | 27.0 - 34.0 pg | EXTERNAL | | | | performed at [facility], [address] | | LAB | | | | [address], | | | | | | [place] [address] | | | | + + + + + + | MCHC | 32.6Comment: Testing | 32.0 - 35.5 | EXTERNAL | | | | performed at [facility], [address] | g/dL | LAB | | | | [address], | | | | | | [place] [address] | | | | + + + + + + | RDW-CV | 49.0Comment: Testing | 37 - 53 fl | EXTERNAL | | | | performed at [facility], [address] | | LAB | | | | [address], | | | | | | [place] [address] | | | | + + + + + + | Platelet | 288Comment: Testing | 150 - 400 K/uL | EXTERNAL | | | Count | performed at [facility], [address] | | LAB | | | Plasma | [address], | | | | | | [place] [address] | | | | + + + + + + | MPV | 8.3Comment: Testing | fl | EXTERNAL | | | | performed at [facility], [address] | | LAB | | | | [address], | | | | | | [place] [address] | | | | + + + + + + | Differentia | AUTOMATEDComment: | | EXTERNAL | | | l Type | Testing performed at | | LAB | | | | [facility], [address] | | | | | | [place] | | | | | | [address] | | | | + + + + + + | % Segmented | 62.09Comment: Testing | % | EXTERNAL | | | | performed at [facility], [address] | | LAB | | | Neutrophils | [address], | | | | | | [place] [address] | | | | + + + + + + | % | 23.17Comment: Testing | % | EXTERNAL | | | Lymphocytes | performed at [facility], [address] | | LAB | | | | [address], | | | | | | [place] [address] | | | | + + + + + + | % Monocytes | 8.93Comment: Testing | % | EXTERNAL | | | | performed at [facility], [address] | | LAB | | | [address], | | | | | | [place] [address] | | | | + + + + + + | % | 5.08Comment: Testing | % | EXTERNAL | | | Eosinophils | performed at [facility], [address] | | LAB | | | | [address], | | | | | | [place] [address] | | | | + + + + + + | % Basophils | 0.73Comment: Testing | % | EXTERNAL | | | | performed at [facility], [address] | | LAB | | | | [address], | | | | | | [place] [address] | | | | + + + + + + | Absolute | 8.85 (H)Comment: Testing | 1.90 - 7.40 | EXTERNAL | | | Segmented | performed at [facility], [address] | K/uL | LAB | | | Neutrophils | [address], | | | | | | [place] [address] | | | | + + + + + + | Absolute | 3.30Comment: Testing | 1.00 - 3.90 | EXTERNAL | | | Lymphocytes | performed at [facility], [address] | K/uL | LAB | | | | [address], | | | | | | [place] [address] | | | | + + + + + + | Absolute | 1.27 (H)Comment: Testing | 0.00 - 0.80 | EXTERNAL | | | Monocytes | performed at [facility], [address] | [address] | LAB | | | | [address], | | | | | | [place] [address] | | | | + + + + + + | Absolute | 0.72 (H)Comment: Testing | 0.00 - 0.50 | EXTERNAL | | | Eosinophils | performed at [facility], [address] | K/uL | LAB | | | | [address], | | | | | | [place] [address] | | | | + + + + + + | Absolute | 0.10Comment: Testing | 0.00 - 0.10 | EXTERNAL | | | Basophils | performed at [facility], [address] | K/uL | LAB | | | | [address], | | | | | | [place] [address] | | | | + + + [...] + +---------+ + + Basic Metabolic Panel (08/02/2014 1:02 PM PDT) + + + + + [...] | | | | | [place] [address] | | | | + + + + + + | K | 4.3Comment: Testing | 3.5 - 4.9 | EXTERNAL | | | | performed at [facility], [address] | mmol/L | LAB | | | | [address], | | | | | | [place] [address] | | | | + + + + + + | Cl | 102Comment: Testing | 99 - 109 mmol/L | EXTERNAL | | | | performed at [facility], [address] | | LAB | | | | [address], | | | | | | [place] [address] | | | | + + + + + + | CO2 | 23Comment: Testing | 23 - 32 mmol/L | EXTERNAL | | | | performed at [facility], [address] | | LAB | | | | [address], | | | | | | [place] [address] | | | | + + + + + + | Anion Gap | 15Comment: Testing | 5 - 20 mmol/L | EXTERNAL | | | | performed at [facility], [address] | | LAB | | | | [address], | | | | | | [place] [address] | | | | + + + + + + | Glucose, | 165 (H)Comment: Testing | 65 - 99 mg/dL | EXTERNAL | | | Fasting | performed at [facility], [address] | | LAB | | | [address], | | | | | | [place] [address] | | | | + + + + + + | BUN | 39 (H)Comment: Testing | 8 - 25 mg/dL | EXTERNAL | | | | performed at [facility], [address] | | LAB | | | | [address], | | | | | | [place] [address] | | | | + + + + + + | Creatinine | 1.23 (H)Comment: Testing | 0.50 - 1.00 | EXTERNAL | | | | performed at [facility], [address] | mg/dL | LAB | | | | [address], | | | | | | [place] [address] | | | | + + + + + + | BUN/Creatin | 32Comment: Testing | | EXTERNAL | | | ine Ratio | performed at [facility], [address] | | LAB | | | | [address], | | | | | | [place] [address] | | | | + + + + + + | Calcium | 9.7Comment: Testing | 8.5 - 10.5 | EXTERNAL | | | | performed at [facility], [address] | mg/dL | LAB | | | | [address], | | | | | | [place] [address] | | | | + + + [...] | | | | | [place] [address] | | | | + + + [...] + | Diagnosis | + + | Pleural effusion Unspecified pleural effusion | + + documented in this encounter"
--- OUTSIDE RECORDS SUMMARY | ~2019-03-06 | XMS | Encounter Summary ---
Demographics + + + | Address | [address] | | | [place] [address] | + + + | Home Phone | | + + + | Preferred Language | Unknown | + + + | Marital Status | | + + + | Quaker Affiliation | [id number] | + + + | Race | Unknown | + + + | Ethnic Group | Unknown | + + + Author + + + | Author | [facility] | | | and [place] | + + + | Organization | [facility] | | | [...] [place] | | | | | [address] | | + + + + + | Rivka Palma | ECON | Unknown | | + + + + + | Geno Kendall | ECON | Unknown | | + + + + + Care Team Providers + +------+ + | Care Shactor Name | Role | Phone | + [...] + + | 12/15/ | Office | [facility] | [place]ung, | Ischemic | | 2019 | Visit | [facility]IOLOGY [facility] | [address] | cardiomyopathy | | | | [address] [facility] | [place] | (Primary Dx); | | | | [address] | [id number] | Essential | | | | [place] | | hypertension, | | | | [address] | | benign; Acute | | | | [phone] | | respiratory failure | | | [...] she had to be trans ferred to [facility] for high risk surgery. Subsequently developed staph pneumonia in October 22, 2017 and was admitted to [facility]. Continue to be fatigue and tired. Could [...] Stress Test, 05/17/2014: Large area of a amo-wfxet-eoxhg twoedg-qjuqxnx-gveru [place], on ongoing ischemia. LV enlarged, LVEF 18%. 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 Hx BIV-ICD: 03/07/2014: [employer] [id number], Victorina Sneed, SN: [id number]. ASSESSMENT: Patient is 88 y.o. with 1. Ischemic cardiomyopathy. NYH class III, stage C. Stable angina. S/P BIV [employer] therapy. No improvement in EF. 2. Frequent [...] | | | | | EL[address] Sh[address] [place], [place] | | | | | | [id number] | | | | | | | [...] [place] | | | | | | [id number] | | | | | | | [...]
--- OUTSIDE RECORDS SUMMARY | ~2019-03-06 | XMS | Encounter Summary ---
Demographics + + + | Address | [address] | | | [place] [address] | + + + | Home Phone | | + + + | Preferred Language | Unknown | + + + | Marital Status | | + + + | Buddhism Affiliation | 1041 | + + + | Race | Unknown | + + + | Ethnic Group | Unknown | + + + Author + + + | Author | [facility] | | | and [place] | + + + | Organization | [facility] | | [...] [place], [place] | | | | | [address] | | + + + + + | Rivka Palma | ECON | Unknown | | + + + + + | Geno Kendall | ECON | Unknown | | + + + + + Care Team Providers + +------+ + | Care Engineer And Geologist Name | Role | Phone | + +------+ + | Lorenzo Valdes MD | PCP | | + +------+ + Encounter Details +--------+ + + + + | Date | Type | Department | Care Team | Description | +--------+ + + + + | 09/23/ | Orders Only | [facility] | Conversion | | | 2015 | | NEPHROLOGY [place] | Transaction, | | | | | [address] [facility] | Provider Unknown | | | | | [address] [facility] [place] | [phone] | | | | | [address] | | | | | | [phone] | | | +--------+ + + + [...] [place] | | | | | | [address] | | | | | | | [...] [place] | | | | | | [address] | | | | | | | [...] - 1.030 | EXTERNAL | | | [place] | | | LAB | | + [...] | | | LAB | | | [facility] | | | | | + + [...]
--- OUTSIDE RECORDS SUMMARY | ~2019-03-06 | XMS | Encounter Summary ---
Demographics + + + | Address | [address] | | | [place] [address] | + + + | Home Phone [...] [place], [place] | | | | | [address] | | + + + + + | Rivka Palma | ECON | Unknown | | + + + + + | Geno Kendall | ECON | Unknown | | + + + + + Care Team Providers + +------+ + | Care Record Press Supervisor Name | Role | Phone | + +------+ + | Lorenzo Valdes MD | PCP | | + +------+ + Encounter Details +--------+ + + + + | Date | Type | Department | Care Team | Description | +--------+ + + + + | 01/02/ | Orders Only | [facility] | Godfrey Monteiro MD | | | 2013 | | [place]PHROLOGY [place] | [address] [facility] | | | | | [address] [facility] | [place] | | | | | [place] | [address] | | | | | [address] | | | | | | [phone] | | | +--------+ + + + [...] [place] | | | | | | [address] | | | | | | | [...] [place] | | | | | | [address] | | | | | | | [...] | | | LAB | | | [place] | | | | | + + [...]
--- OUTSIDE RECORDS SUMMARY | ~2019-03-06 | XMS | Encounter Summary ---
Demographics + + + | Address | [address] | | | [place] [address] | + + + | Home Phone [...] [place], [place] | | | | | [address] | | + + + + + | Rivka Palma | ECON | Unknown | | + + + + + | Geno Kendall | ECON | Unknown | | + + + + + Care Team Providers + +------+ + | Care Station Engineer Main Line Name | Role | Phone | + +------+ + | Lorenzo Valdes MD | PCP | | + +------+ + Encounter Details +--------+ + + + + | Date | Type | Department | Care Team | Description | +--------+ + + + + | 09/27/ | Hospital | [facility] | Conversion | Diagnosis unknown | | 2018 | Encounter | CONVERSION [address] | Transaction, | | | | | [address] | Provider Unknown | | | | | [place] | [phone] | | | | | [address] | | | | | | [phone] | | | +--------+ + + + [...] [place] | | | | | | [address] | | | | | | | [...] [place] | | | | | | [address] | | | | | | | [...]
--- OUTSIDE RECORDS SUMMARY | ~2019-03-06 | XMS | Encounter Summary ---
Demographics + + + | Address | [address] | | | [place] [address] | + + + | Home Phone | | + + + | Preferred Language | Unknown | + + + | Marital Status | | + + + | Anglican Affiliation | 1041 | + + + | Race | Unknown | + + + | Ethnic Group | Unknown | + + + Author + + + | Author | [facility] | | | and [place] | + + + | Organization | [facility] | | | [...] [place], [place] | | | | | [address] | | + + + + + | Rivka Palma | ECON | Unknown | | + + + + + | Geno Kendall | ECON | Unknown | | + + + + + Care Team Providers + +------+ + | Care Mexican Food Machine Tender Name | Role | Phone | + +------+ + | Lorenzo Valdes MD | PCP | | + +------+ + Encounter Details +--------+ + + + + | Date | Type | Department | Care Team | Description | +--------+ + + + + | 03/07/ | Hospital | [facility] | Conversion | Ischemic | | 2013 - | Encounter | [facility] | Transaction, | cardiomyopathy | | | | CLINICAL DECISION | Provider Unknown | | | 03/08/ | | [address] [facility] | [phone] | | | 2013 | | [place], [place] | | | | | | [address] | Cristina Aguilar MD | | | | | [phone] | PhD [address] [facility] | | | | | | [address] | | | | | | [place] [address] | | | | | | [phone] | | | | | | | [...] | | | | | ([facility]), Bronchitis, | | | | | [...] Progress Notes Conversion Transaction, Provider Unknown - 03/08/2014 9:25 AM PSTFormatting of this note m ight be different from the original. Nurse Progress Note by Mouna Kelsey RN at 03/08/14924 Author: Mouna Kelsey RN Service: (none) Author Type: Registered Nurse Filed: 03/08/14925 Date of Service: 03/08/14924 Status: Signed Clay Maker: Mouna Kelsey RN (Registered Nurse) Pt discharged. IV removed. Scripts and instructions given and pt states understanding. No c/o at this time. Discharged with family Cristina Boyd MD PhD - 03/08/2014 7:37 AM PSTFormatting of this note might be different from th e original. Progress Notes by Cristina Aguilar MD at 03/08/14736 Author: Cristina Aguilar MD Service: Cardiology Author Type: Physician Filed: 03/08/1438 Date of Service: 03/08/14736 Status: Signed Clay Maker: Cristina Aguilar MD (Physician) [facility] PATIENT NAME: Tamiko Ireland : 1930: AGE: 83 y.o. ADMISSION DATE: 03/07/2014 Hospital Day # 1 Principal Hospital Problem: <principal problem not specified> Code Status: Full Code PRIMARY CARE: CANDICE Aguilar MD ELECTROPHYSIOLOGY HOSPITAL PROGRESS NOTE CURRENT ASSESSMENT AND PLAN: 83 y.o. year old female POD1 after MDT CROWN ASSEMBLY MACHINE SET UP MECHANIC-D implant - CXR clear, wound clear, device check with excellent thresholds, borderline R wave amplitude. 1. DC today, wound check Thierno 1-week. Active Problems: * No active hospital problems. * SCHEDULED MEDS: amiodarone 200 mg Oral Daily aspirin EC 325 mg Oral Daily with breakfast budesonide 2 puff Inhalation BID bumetanide 1 mg Oral BID carvedilol 3.125 mg Oral BID WC cholecalciferol 1,000 Units Oral Daily levothyroxine 75 mcg Oral QAM AC losartan 12.5 mg Oral Daily magnesium oxide 400 mg Oral Daily omeprazole 40 mg Oral QAM AC potassium chloride SA 20 mEq Oral BID rosuvastatin 20 mg Oral Nightly IV INFUSIONS: OUTPATIENT MEDICATIONS: Prescriptions prior to admission Medication Sig Dispense Refill albuterol (PROVENTIL HFA;VENTOLIN HFA) 108 (90 BASE) MCG/ACT inhaler Inhale 2 puffs int o the lungs every 4 (four) hours as needed for Wheezing. 18 g 3 aspirin EC 325 MG EC tablet Take 1 tablet by mouth daily with breakfast. 30 tablet 11 budesonide (PULMICORT) 180 MCG/ACT inhaler Inhale 2 puffs into the lungs 2 (two) times daily. bumetanide (BUMEX) 1 MG tablet Take 1 tablet by mouth 2 (two) times daily. 60 tablet 11 carvedilol (COREG) 3.125 MG tablet Take 1 tablet by mouth 2 (two) times daily with meal s. 60 tablet 0 Cetirizine HCl 10 MG CAPS Take by mouth. Cholecalciferol 1000 UNITS capsule Take 1,000 Units by mouth daily. FLUTICASONE PROPIONATE, NASAL, NA by Nasal route. GUAIFENESIN 1200 PO Take by mouth. levothyroxine (SYNTHROID) 75 MCG tablet Take 75 mcg by mouth every morning before break fast. losartan (COZAAR) 25 MG tablet Take 0.5 tablets by mouth daily. 30 tablet 0 magnesium oxide (MAG-OX) 400 MG tablet Take 1 tablet by mouth daily. 90 tablet 3 omeprazole (PRILOSEC) 20 MG capsule Take 40 mg by mouth every morning before breakfast. potassium chloride SA (K-DUR,KLOR-CON) 20 MEQ tablet Take 1 tablet by mouth 2 (two) jose es daily. 60 tablet 3 rosuvastatin (CRESTOR) 20 MG tablet Take 20 mg by mouth nightly. amiodarone (PACERONE) 200 MG tablet Take 1 tablet by mouth daily. 0 LABS: Recent Labs Lab 03/07/14 1141 WBC 10.9 RBC 4.55 HGB 13.5 HCT 40.9 MCV 90.0 MCH 29.7 MCHC 33.0 RDW 47.7 PLT 230 MPV 7.8 DIFFTYPE AUTOMATED Recent Labs Lab 03/08/14 0435 03/07/14 1141 WBC -- 10.9 HGB -- 13.5 HCT -- 40.9 NA 138 140 K 3.8 3.8 CL 102 104 CO2 29 29 BUN 20 27* INR -- 1.1 Recent Labs Lab 03/07/14 1141 INR 1.1 No results found for this basename: PTT, in the last 168 hours No results found for this basename: CHOL, LDLCALC, HDL, TRIG OBJECTIVE LATEST VITALS: BP 94/50 | Pulse 71 | Temp(Src) 98.3 F (36.8 C) (Oral) | Resp 18 | Ht 1 .676 m (5' 6") | Wt 61.236 kg (135 lb) | BMI 21.8 kg/m2 | SpO2 94% | ? No I/O s (this shift): Vital sign ranges for last 24hrs: Input and output for last 24hrs: Temp: [97 F (36.1 C)-98.3 F (36.8 C)] 98.3 F (36.8 C) Heart Rate: [71-108] 71 Resp: [14-33] 18 BP: (87-141)/(50-100) 94/50 mmHg FiO2 : [60 %-100 %] 100 % SpO2 Av.6 % Min: 91 % Max: 100 % could not be evaluated. This SmartLink does not work with rows of the type: Body mass index is 21.8 kg/(m^2).; Body surface area is 1.69 meters squared. PHYSICAL EXAM: Admit Weight: Weight: 61.236 kg (135 lb) Current weight: Weight: 61.236 kg (135 lb) BP 94/50 | Pulse 71 | Temp(Src) 98.3 F (36.8 C) (Oral) | Resp 18 | Ht 1.676 m (5' 6") | Wt 61.236 kg (135 lb) | BMI 21.8 kg/m2 | SpO2 94% | ? No General Appearance: Alert, oriented, cooperative, no distress, appears stated age HEENT: Extraocular movements intact. Pupiles round and reactive. No xanthelasmas. No jaundi ce. NECK: No JVD, No lymphadenopathy. Trachea is at midline. CARDIAC: Normal S1 and S2 heart sounds. No murmurs, rubs, or gallops. Non-displaced, non-haas stained apical impulse. CHEST: Normal symmetrical chest excursion. Good bilateral air entry with no crackles or whe ezing. No percussion dullness. ABDOMEN: Non tender, non distended, bowl sounds present, no organomegaly. EXTREMITIES: 2+ pulses radial and pedal, symmetric. NEURO: No focal deficits. Normal bulk, power, and tone. SKIN: No bruises or rash. Warm and dry. Signed by: Cristina Aguilar MD 03/08/2014, 7:37 AM onversion Transa ction, Provider Unknown - 03/08/2014 5:30 AM PST Nurse Progress Note by Vel Moreno RN at 03/08/14529 Author: Vel Moreno RN Service: (none) Author Type: Registered Nurse Filed: 03/08/14529 Date of Service: 03/08/14529 Status: Signed Clay Maker: Vel Moreno RN (Registered Nurse) Code cart removed from outside of room onver yajaira Transaction, Provider Unknown - 03/08/2014 5:10 AM PST Nurse Progress Note by Vel Moreno RN at 03/08/14509 Author: Vel Moreno RN Service: (none) Author Type: Registered Nurse Filed: 03/08/1429 Date of Service: 03/08/14509 Status: Addendum Clay Maker: Vel Moreno RN (Registered Nurse) Related Notes: Original Note by Vel Moreno RN (Registered Nurse) filed at 03/08/14 05 29 At least 25 beats of V-Tach, pt was assymtomatic, someone was w pt when it happened, code c art retrieved, placed outside room, pacer pads placed on patient, vital signs checked, vital s wnl. Tele sent strip down, EKG ordered. [address] Aguilar notified, he stated "Than k you for informing me." onver yajaira Transaction, Provider Unknown - 03/07/2014 4:13 PM PST Nurse Progress Note by Loretta Mast RN at 03/07/14 9734 Author: Loretta Mast RN Service: (none) Author Type: Registered Nurse Filed: 03/07/140 Date of Service: 03/07/141612 Status: Signed Clay Maker: Loretta Mast RN (Registered Nurse) 5821 Pt complaining of SOB and difficulty breathing. Given nebulizer treatment; chest x-ray taken as well. Pt appears lethargic and Dr. Crowell gave reversal. At this time pt awake, responding correctly and has decrease SOB. Able to cough up sputum and sats 94% on 2 L of o xygen. docume nted in this encounter Plan of [...] [place] | | | | | | [address] | | | | | | | | +--------+ + + + + | 03/23/ | Procedure | Cardiology | | | | 2018 | visit | | | | +--------+ + + + + | 08/09/ | Office | Pulmonology | Td Mondragon MD | | | 2019 | Visit | | [address] | | | | | | [place] | | | | | | [address] | | | | | | | | +--------+ + + + + documented as of this encounter Procedures + +--------+ + + + | Procedure Name | Priori | Date/Time | Associated Diagnosis | Comments | | | ty | | | | + +--------+ + + + | BASIC METABOLIC | Routin | 03/08/2014 | | Results for this | | PANEL | e | 4:35 AM | | procedure are in the | | | | PST | | results section. | + +--------+ + + + | POC GLUCOSE | Routin | 03/07/2014 | | Results for this | | | e | 9:38 PM | | procedure are in the | | | | PST | | results section. | + +--------+ + + + | XR CHEST 2 VIEWS | Routin | 03/07/2014 | | Results for this | | | e | 7:30 PM | | procedure are in the | | | | PST | | results section. | + +--------+ + + + | XR CHEST 1 VIEW | Routin | 03/07/2014 | | Results for this | | | e | 4:06 PM | | procedure are in the | | | | PST | | results section. | + +--------+ + + + | POC GLUCOSE | Routin | 03/07/2014 | | Results for this | | | e | 3:43 PM | | procedure are in the | | | | PST | | results section. | + +--------+ + + + | CV EP PROCEDURE | Routin | 03/07/2014 | | Results for this | | | e | 3:03 PM | | procedure are in the | | | | PST | | results section. | + +--------+ + + + | EXTERNAL LAB: CBC | Routin | 03/07/2014 | | Results for this | | | e | 11:41 AM | | procedure are in the | | | | PST | | results section. | + +--------+ + + + | MRSA NAAT | Timed | 03/07/2014 | | Results for this | | | | 11:41 AM | | procedure are in the | | | | PST | | results section. | + +--------+ + + + | PROTIME INR | Routin | 03/07/2014 | | Results for this | | | e | 11:41 AM | | procedure are in the | | | | PST | | results section. | + +--------+ + + + | BASIC METABOLIC | Routin | 03/07/2014 | | Results for this | | PANEL | e | 11:41 AM | | procedure are in the | | | | PST | | results section. | + +--------+ + + + documented in this encounter Results Basic Metabolic Panel (03/08/2014 4:35 AM PST) + + + + + [...] | | | | | [place] [address] | | | | + + + + + + | K | 3.8Comment: Testing | 3.5 - 4.9 | EXTERNAL | | | | performed at [facility], [address] | mmol/L | LAB | | | | [address], | | | | | | [place] [address] | | | | + + + + + + | Cl | 102Comment: Testing | 99 - 109 mmol/L | EXTERNAL | | | | performed at [facility], [address] | | LAB | | | | [address], | | | | | | [place] [address] | | | | + + + + + + | CO2 | 29Comment: Testing | 23 - 32 mmol/L | EXTERNAL | | | | performed at [facility], [address] | | LAB | | | | [address], | | | | | | [place] [address] | | | | + + + + + + | Anion Gap | 11Comment: Testing | 5 - 20 mmol/L | EXTERNAL | | | | performed at [facility], [address] | | LAB | | | | [address], | | | | | | [place] [address] | | | | + + + + + + | Glucose, | 99Comment: Testing | 65 - 99 mg/dL | EXTERNAL | | | Fasting | performed at [facility], [address] | | LAB | | | | [address], | | | | | | [place] [address] | | | | + + + + + + | BUN | 20Comment: Testing | 8 - 25 mg/dL | EXTERNAL | | | | performed at [facility], [address] | | LAB | | | | [address], | | | | | | [place] [address] | | | | + + + + + + | Creatinine | 1.11 (H)Comment: Testing | 0.50 - 1.00 | EXTERNAL | | | | performed at [facility], [address] | mg/dL | LAB | | | | [address], | | | | | | [place] [address] | | | | + + + + + + | BUN/Creatin | 18Comment: Testing | | EXTERNAL | | | ine Ratio | performed at [facility], [address] | | LAB | | | | [address], | | | | | | [place] [address] | | | | + + + + + + | Calcium | 9.0Comment: Testing | 8.5 - 10.2 | EXTERNAL | | | | performed at [facility], [address] | mg/dL | LAB | | | | [address] [facility], | | | | | | [place] [address] | | | | + + + + + + | Estimated | 50 (L)Comment: GFR <60: | mL/min/1.73m2 | EXTERNAL [...] | | | | | | [address] [facility], | | | | | | [place] [address] | | | | + + + + + + + + | Specimen | + + | Blood specimen | | (specimen) | + + + +---------+ + + | Performing | Address | City/State/Zipcode | Phone Number | | Organization | | | | + +---------+ + + | EXTERNAL LAB | | | | + +---------+ + + POC Glucose (03/07/2014 9:38 PM PST) + + + + + + | Component | Value | Ref Range | Performed | Pathologist | | | | | At | Signature | + + + + + + | Glucose, | 182 (H)Comment: Testing | 65 - 99 mg/dL | EXTERNAL | | | Fingerstick | performed at [facility];[address] | | LAB | | | | [place] | | | | | | [address] | | | | + + + + + + + + | Specimen | + + | | + + + +---------+ + + | Performing | Address | City/State/Zipcode | Phone Number | | Organization | | | | + +---------+ + + | EXTERNAL LAB | | | | + +---------+ + + XR Chest 2 Vws (03/07/2014 7:30 PM PST) + + | Specimen | + + | | + + + + + | Impressions | Performed At | + + + | FINDINGS/ IMPRESSION: Left pacemaker/ICD with intact leads. No | | | pneumothorax. Bibasilar atelectasis/scarring. No lung | | | consolidation. Diffuse osteopenia. Midline sternal wires are | | | intact. Electronically signed by Olivier Kendrick MD on | | | 03/07/2014 8:25 PM | | + + + + + + | Narrative | Performed At | + + + | [facility]REL[facility] 1930 83 years Female XR CHEST 2 VIEW FRONTAL AND | | | LATERAL 03/07/2014 7:30 PM INDICATION: Device placement, rule | | | out pneumothorax. COMPARISON: March 07, 2014 TECHNIQUE: Two | | | view chest, PA and lateral views | | + + + + + | Procedure Note | + + | Ross, Rad Conversion - 11/26/2018 3:41 PM PDT [facility] BON | | 1930 | | 83 years Female | | XR CHEST 2 VIEW FRONTAL AND LATERAL | | 03/07/2014 7:30 PM | | | | INDICATION: Device placement, rule out pneumothorax. | | | | COMPARISON: March 07, 2014 | | | | TECHNIQUE: Two view chest, PA and lateral views | | | | IMPRESSION: | | FINDINGS/ IMPRESSION: | | | | Left pacemaker/ICD with intact leads. No pneumothorax. | | | | Bibasilar atelectasis/scarring. | | | | No lung consolidation. | | | | Diffuse osteopenia. | | | | Midline sternal wires are intact. | | | | | | | | | | | + + XR Chest 1 Vw (03/07/2014 4:06 PM PST) + + | Specimen | + + | | + + + + + | Impressions | Performed At | + + + | 1. Potential pulmonary edema versus viral process throughout the | | | lungs. | | | 4:27 PM | | + + + + + + | Narrative | Performed At | + + + | [facility] IRELAND 1930 83 years XR CHEST 1 VIEW 03/07/2014 4:06 | | | PM INDICATION: Shortness of breath COMPARISON: 01/03/14 | | | TECHNIQUE: Chest 1 view, AP view of the chest FINDINGS: The | | | patient has a 3-lead AICD generator in place. Median sternotomy wires | | | are intact. There is mild enlargement of the cardiac silhouette. No | | | mediastinal widening is present. There is no pneumothorax. Lung | | | volumes are diminished from prior study. Increasing bronchovascular | | | markings are noted throughout the lungs bilaterally. There is no | | | evidence of free air. Generalized osteopenia is noted. | | + + + + + | Procedure Note | + + | Ross, Rad Conversion - 11/26/2018 3:41 PM PDT TAMIKO [id number] yearsXR CHEST 1 | | VIEW03/07/2014 4:06 PM INDICATION: Shortness of breath COMPARISON: 01/03/14 TECHNIQUE: | | Chest 1 view, AP view of the chest FINDINGS: The patient has a 3-lead AICD generator in | | place. Median sternotomy wires are intact. There is mild enlargement of the cardiac | | silhouette. No mediastinal widening is present. There is no pneumothorax. Lung volumes | | are diminished from prior study. Increasing bronchovascular markings are noted | | throughout the lungs bilaterally. There is no evidence of free air. Generalized | | osteopenia is noted. IMPRESSION: 1. Potential pulmonary edema versus viral process | | throughout the lungs. | | PM | |TECHNIQUE: Chest 1 view, AP view of the chest | | | |FINDINGS: The patient has a 3-lead AICD generator in place. Median sternotomy wires are in tact. There is mild enlargement of the cardiac silhouette. No mediastinal widening is presen t. There is no pneumothorax. Lung volumes are diminished from prior | |study. Increasing bronchovascular markings are noted throughout the lungs bilaterally. Ther e is no evidence of free air. Generalized osteopenia is noted. | | | |IMPRESSION: | |1. Potential pulmonary edema versus viral process throughout the lungs. | | | | | + + POC Glucose (03/07/2014 3:43 PM PST) + + + + + + | Component | Value | Ref Range | Performed | Pathologist | | | | | At | Signature | + + + + + + | Glucose, | 194 (H)Comment: Testing | 65 - 99 mg/dL | EXTERNAL | | | Fingerstick | performed at [facility];[address] | | LAB | | | [address];[place], [place] | | | | | | [address] | | | | + + + + + + + + | Specimen | + + | | + + + +---------+ + + | Performing | Address | City/State/Zipcode | Phone Number | | Organization | | | | + +---------+ + + | EXTERNAL LAB | | | | + +---------+ + + CV EP PROCEDURE (03/07/2014 3:03 PM PST) + + | Specimen | + + | | + + + + + | Narrative | Performed At | + + + | | | | | | | DATE OF PROCEDURE March 07, 2014 PREPROCEDURE DIAGNOSIS | | | Ischemic cardiomyopathy. PROCEDURES PERFORMED 1. Implantation of | | | a dual-chamber implantable cardioverter-defibrillator, 75224. 2. | | | Implantation of an left ventricular lead, 46938. ANESTHESIA | | | Anesthesiology service with general anesthesia throughout. 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 [place] [employer] | | | class II to III symptoms. Left bundle branch block. Conduction delay | | | with QRS CD 160 msec. The patient was referred for implantation of a | | | CROWN ASSEMBLY MACHINE SET UP MECHANIC-D system. PROCEDURE IN DETAIL Informed consent for the | | | procedure was obtained in the outpatient setting. The patient was | | | taken to the operating suite in nonsedated fasting state. Ancef 2 g | | | IV was administered prior to the procedure for surgical prophylaxis. | | | A timeout was performed to confirm the patient's identity and the | | | nature and location of the planned procedure. The patient was then | | | prepped and draped in the usual sterile fashion for ICD implantation | | | of the left upper chest. A limited venography was performed given the | | | renal dysfunction, demonstrating a patent axillary and subclavian | | | venous system. Topical lidocaine 1% was used for local anesthesia | | | and a 3 cm incision was then made along the costal margin as defined | | | in AP fluoroscopy beginning 2 fingerbreadths below the clavicle. | | | Cautery was used to extend down to the pectoral fascia and an ICD | | | pocket was created using cautery from the base of the surgical wound, | | | extending medially by the fascial plane. Guided by anatomic | | | landmarks and prior venography, 3 independent sites of venous access | | | were obtained using micropuncture kit at the level of the first rib | | | and clavicular junction with J-tipped guidewire used at the venous | | | access site. All guidewires were passed to the level of the | | | diaphragm, verifying venous access in all cases with its position | | | documented using Fluorostar fluoroscopy. For the RV lead, a | | | 9.5-Yemeni sheath was deployed in the venous circulation. The RV lead | | | was advanced to the lower RV. A curved stylet was used to prolapse | | | the lead tip across the tricuspid valve and advance the lead into the | | | RVOT. Subsequently a straight stylet was used to lower the lead into | | | the body of the RV and advance the lead to the apical septum. The | | | lead was moved sequentially along the interventricular septum several | | | times to identify sites with optimal electrogram characteristics. | | | When a site was satisfactory electrogram amplitude, pacing and | | | sensing characteristics and current of injury was confirmed and with | | | septal orientation the lead tip confirmed in the PORTUGUESE view, active | | | fixation was extended. With the stylet partially withdrawn, | | | satisfactory lead characteristics were confirmed again. The lead was | | | secured to the prepectoral fascia using 2 independent ties of Ti-Cron | | | sutures. For the LV lead, a 9.5-Yemeni sheath was deployed in the | | | venous circulation and a OrderBorder extended hook outer guide sheath | | | was advanced to the right atrium, guided by an 0.025 guidewire. The | | | guidewire was used to probe for the ostium of the coronary sinus | | | along the tricuspid valve which was engaged, allowing the wire to be | | | advanced in the distal CS with the extended hook catheter advanced | | | into the mid portion of the CS. The wire was then used to advance the | | | balloon tip catheter through the guide sheath into the mid portion | | | of the CS. With the balloon inflated, venography was performed in | | | both the PORTUGUESE and RODRIGUEZ fluoroscopic views, demonstrating a large MCV | | | and PCV vein with thready lateral veins extending toward the lateral | | | wall. The large MVC vein was selected for optimal placement as it | | | provided a large caliber vein to the lateral wall of the LV despite | | | projecting beyond the mid portion of the LV in the RODRIGUEZ view. We note | | | the MCV vein was engaged using VERT catheter, guiding the 0.014 wire | | | inferiorly, which was used to advance the 0.014 wire to the distal | | | tip of the MCV vein. With the VERT catheter removed, the Medtronic | | | quadripolar lead was advanced over the 0.014 wire into the distal tip | | | of the vein, projecting superiorly along the lateral wall of the LV. | | | With the wire withdrawn, adequate pacing and sensing characteristics | | | were found in several vectors without any evidence of diaphragmatic | | | stimulation. The outer guide sheath was then slit and removed without | | | disruption of the LV lead and with the guidewire pulled sufficiently | | | back, adequate slack was placed in the LV lead in both the PORTUGUESE view | | | propping the lead against the lateral wall of the right atrium and | | | the RODRIGUEZ view advancing the lead to the tricuspid valve annulus. The | | | lead was then secured to the pectoral fascia using 2 independent ties | | | of Ti-Cron sutures. For the RA lead, 7-Yemeni sheath was deployed | | | in the venous circulation and the RA lead was advanced to the lower | | | RA. A straight stylet was used to advance the RA lead into the lower | | | RA. Several sites of hang up were identified and had to be worked | | | around. With a J-shaped stylet substituted, the lead was positioned | | | in the anterior right atrium and with sensing of adequate atrial | | | electrograms with adequate current of injury and pacing | | | characteristics, the lead was secured with active fixation. With the | | | stylet partially withdrawn, satisfactory lead characteristics were | | | confirmed again. The lead was secured to the prepectoral fascia with | | | 2 independent ties of Ti-Cron sutures. The pocket was then flushed | | | with Ancef impregnated sterile saline. Hemostasis was confirmed. All | | | lead were positioned with the device header and secured, and | | | adequate pacing and lead characteristics were confirmed. The device | | | was coiled about the leads and positioned within the tissue pocket, | | | anchored to the prepectoral fascia with a single independent tie of | | | Ti-Cron sutures. Wound closure then completed using 2-0 Vicryl for | | | the fascial layer in continuous running fashion with 2-0 Vicryl in | | | duplicate for subcutaneous closure and 4-0 Vicryl for subcuticular | | | closure. The incision was then protected with Steri-Strip, gauze and | | | a clear adhesive dressing was applied. General anesthesia was | | | reversed by the anesthesiology service and the patient was awake, | | | alert, and oriented, returned to the recovery area in satisfactory | | | condition. Defibrillation threshold was not performed given the | | | patient advanced age and frail status of the patient. ESTIMATED | | | BLOOD LOSS 5 mL CONTRAST 30 mL IMPLANTED MATERIALS RA lead: | | | Medtronic 5076, 45 cm, serial #[id number], 2.5 mV P-waves, impedance | | | 513 ohms, pacing threshold 0.5 V at 0.4 msec. RV lead: 7.9 mV | | | R-waves, impedance 1016 ohms, threshold 0.9 V at 0.5 msec. LV lead: | | | 7.7 mV R-waves, threshold 1 V at 0.5 msec, impedance 398 ohms. | | | Ja programming: DDD 70 to 130 pulses/min. ICD therapies as per | | | pain free SST settings. ECG guided CROWN ASSEMBLY MACHINE SET UP MECHANIC optimization was then | | | performed exploring LV offset at 0, -20, -40 and -50 msec. The QRS | | | was stable at 155 msec throughout. There was mild negativity in lead | | | I with an RS pattern in lead V1, V3, accentuated with additional LV | | | offset. Given the short P-R interval, Adaptive CROWN ASSEMBLY MACHINE SET UP MECHANIC was programmed. A | | | manual LV offset of -40 msec should be considered if a suboptimal | | | clinical response is obtained. IMPRESSION Successful implantation | | | of a CROWN ASSEMBLY MACHINE SET UP MECHANIC-D system, no defibrillation threshold testing, ECG guided | | | LV offset optimized to -40, Adaptive CROWN ASSEMBLY MACHINE SET UP MECHANIC programmed initially. | | | PLAN The patient is to be observed overnight. Chest x-ray PA and | | | lateral later today. Two additional doses of Ancef and satisfactory | | | interrogation in the morning to ensure satisfactory function and | | | programming prior to discharge. Follow up in device clinic in 1 to 2 | | | weeks and subsequently 2 to 3 months for device reprogramming and | | | optimization. We thank Dr. Bynum for referring this patient for | | | electrophysiology management. Read by CRISTINA AGUILAR MD | | | 03/07/2014 03:24 P Electronically signed by Cristina Aguilar MD on | | | 05/06/2014 10:55 AM | | + + + + + | Procedure Note | + + | Ross, Rad Conversion - 12/01/2018 2:20 PM PDT | | | | DATE OF PROCEDURE | | March 07, 2014 | | | | PREPROCEDURE DIAGNOSIS | | Ischemic cardiomyopathy. | | | | PROCEDURES PERFORMED | | 1. Implantation of a dual-chamber implantable cardioverter-defibrillator, | | 26010. | | 2. Implantation of an left ventricular lead, 80257. | | | | ANESTHESIA | | Anesthesiology service with general anesthesia throughout. 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 [place] Heart Association class II to III symptoms. Left bundle | | branch block. Conduction delay with QRS CD 160 msec. The patient was | | referred for implantation of a CROWN ASSEMBLY MACHINE SET UP MECHANIC-D system. | | | | PROCEDURE IN DETAIL | | Informed consent for the procedure was obtained in the outpatient setting. | | The patient was taken to the operating suite in nonsedated fasting state. | | Ancef 2 g IV was administered prior to the procedure for surgical | | prophylaxis. A timeout was performed to confirm the patient's identity and | | the nature and location of the planned procedure. The patient was then | | prepped and draped in the usual sterile fashion for ICD implantation of | | the left upper chest. A limited venography was performed given the renal | | dysfunction, demonstrating a patent axillary and subclavian venous | | system. | | | | Topical lidocaine 1% was used for local anesthesia and a 3 cm incision was | | then made along the costal margin as defined in AP fluoroscopy beginning 2 | | fingerbreadths below the clavicle. Cautery was used to extend down to the | | pectoral fascia and an ICD pocket was created using cautery from the base | | of the surgical wound, extending medially by the fascial plane. Guided by | | anatomic landmarks and prior venography, 3 independent sites of venous | | access were obtained using micropuncture kit at the level of the first rib | | and clavicular junction with J-tipped guidewire used at the venous access | | site. All guidewires were passed to the level of the diaphragm, verifying | | venous access in all cases with its position documented using Fluorostar | | fluoroscopy. | | | | For the RV lead, a 9.5-Yemeni sheath was deployed in the venous | | circulation. The RV lead was advanced to the lower RV. A curved stylet was | | used to prolapse the lead tip across the tricuspid valve and advance the | | lead into the RVOT. Subsequently a straight stylet was used to lower the | | lead into the body of the RV and advance the lead to the apical septum. | | The lead was moved sequentially along the interventricular septum several | | times to identify sites with optimal electrogram characteristics. When a | | site was satisfactory electrogram amplitude, pacing and sensing | | characteristics and current of injury was confirmed and with septal | | orientation the lead tip confirmed in the PORTUGUESE view, active fixation was | | extended. With the stylet partially withdrawn, satisfactory lead | | characteristics were confirmed again. The lead was secured to the | | prepectoral fascia using 2 independent ties of Ti-Cron sutures. | | | | For the LV lead, a 9.5-Yemeni sheath was deployed in the venous | | circulation and a Medtronic extended hook outer guide sheath was advanced | | to the right atrium, guided by an 0.025 guidewire. The guidewire was used | | to probe for the ostium of the coronary sinus along the tricuspid valve | | which was engaged, allowing the wire to be advanced in the distal CS with | | the extended hook catheter advanced into the mid portion of the CS. The | | wire was then used to advance the balloon tip catheter through the guide | | sheath into the mid portion of the CS. With the balloon inflated, | | venography was performed in both the PORTUGUESE and RODRIGUEZ fluoroscopic views, | | demonstrating a large MCV and PCV vein with thready lateral veins | | extending toward the lateral wall. | | | | The large MVC vein was selected for optimal placement as it provided a | | large caliber vein to the lateral wall of the LV despite projecting beyond | | the mid portion of the LV in the RODRIGUEZ view. We note the MCV vein was | | engaged using VERT catheter, guiding the 0.014 wire inferiorly, which was | | used to advance the 0.014 wire to the distal tip of the MCV vein. With the | | VERT catheter removed, the Medtronic quadripolar lead was advanced over | | the 0.014 wire into the distal tip of the vein, projecting superiorly | | along the lateral wall of the LV. With the wire withdrawn, adequate pacing | | and sensing characteristics were found in several vectors without any | | evidence of diaphragmatic stimulation. The outer guide sheath was then | | slit and removed without disruption of the LV lead and with the guidewire | | pulled sufficiently back, adequate slack was placed in the LV lead in both | | the PORTUGUESE view propping the lead against the lateral wall of the right | | atrium and the RODRIGUEZ view advancing the lead to the tricuspid valve annulus. | | The lead was then secured to the pectoral fascia using 2 independent ties | | of Ti-Cron sutures. | | | | For the RA lead, 7-Yemeni sheath was deployed in the venous circulation | | and the RA lead was advanced to the lower RA. A straight stylet was used | | to advance the RA lead into the lower RA. Several sites of hang up were | | identified and had to be worked around. With a J-shaped stylet | | substituted, the lead was positioned in the anterior right atrium and with | | sensing of adequate atrial electrograms with adequate current of injury | | and pacing characteristics, the lead was secured with active fixation. | | With the stylet partially withdrawn, satisfactory lead characteristics | | were confirmed again. The lead was secured to the prepectoral fascia with | | 2 independent ties of Ti-Cron sutures. | | | | The pocket was then flushed with Ancef impregnated sterile saline. | | Hemostasis was confirmed. All lead were positioned with the device header | | and secured, and adequate pacing and lead characteristics were confirmed. | | The device was coiled about the leads and positioned within the tissue | | pocket, anchored to the prepectoral fascia with a single independent tie | | of Ti-Cron sutures. | | | | Wound closure then completed using 2-0 Vicryl for the fascial layer in | | continuous running fashion with 2-0 Vicryl in duplicate for subcutaneous | | closure and 4-0 Vicryl for subcuticular closure. The incision was then | | protected with Steri-Strip, gauze and a clear adhesive dressing was | | applied. | | | | General anesthesia was reversed by the anesthesiology service and the | | patient was awake, alert, and oriented, returned to the recovery area in | | satisfactory condition. | | | | Defibrillation threshold was not performed given the patient advanced age | | and frail status of the patient. | | | | ESTIMATED BLOOD LOSS | | 5 mL | | | | CONTRAST | | 30 mL | | | | IMPLANTED MATERIALS | | RA lead: Medtronic 5076, 45 cm, serial #[id number], 2.5 mV P-waves, | | impedance 513 ohms, pacing threshold 0.5 V at 0.4 msec. | | RV lead: 7.9 mV R-waves, impedance 1016 ohms, threshold 0.9 V at 0.5 | | msec. | | LV lead: 7.7 mV R-waves, threshold 1 V at 0.5 msec, impedance 398 ohms. | | | | Ja programming: DDD 70 to 130 pulses/min. | | | | ICD therapies as per pain free SST settings. | | | | ECG guided CROWN ASSEMBLY MACHINE SET UP MECHANIC optimization was then performed exploring LV offset at 0, | | -20, -40 and -50 msec. The QRS was stable at 155 msec throughout. There | | was mild negativity in lead I with an RS pattern in lead V1, V3, | | accentuated with additional LV offset. Given the short P-R interval, | | Adaptive CROWN ASSEMBLY MACHINE SET UP MECHANIC was programmed. A manual LV offset of -40 msec should be | | considered if a suboptimal clinical response is obtained. | | | | IMPRESSION | | Successful implantation of a CROWN ASSEMBLY MACHINE SET UP MECHANIC-D system, no defibrillation threshold | | testing, ECG guided LV offset optimized to -40, Adaptive CROWN ASSEMBLY MACHINE SET UP MECHANIC programmed | | initially. | | | | PLAN | | The patient is to be observed overnight. Chest x-ray PA and lateral later | | today. Two additional doses of Ancef and satisfactory interrogation in the | | morning to ensure satisfactory function and programming prior to | | discharge. Follow up in device clinic in 1 to 2 weeks and subsequently 2 | | to 3 months for device reprogramming and optimization. | | | | We thank Dr. Bynum for referring this patient for electrophysiology | | management. | | | | Read by CRISTINA AGUILAR MD 03/07/2014 03:24 P | | | | | + + Protime INR (03/07/2014 11:41 AM PST) + + + + + [...] | | | | | performed at [facility] | | | | | | [facility];[place], [place] | | | | | | [address] | | | | + + + [...] + +---------+ + + External Lab: CBC (03/07/2014 11:41 AM PST) + + + + + + | Component | Value | Ref Range | Performed | Pathologist | | | | | At | Signature | + + + + + + | WBC | 10.9Comment: Testing | 3.8 - 11.0 K/uL | EXTERNAL | | | | performed at [facility];[address] | | LAB | | | [address];[place] | | | | | | [address] | | | | + + + + + + | RED CELL | 4.55Comment: Testing | 3.70 - 5.10 | EXTERNAL | | | COUNT | performed at [facility];[address] | M/uL | LAB | | | | [address];[place] | | | | | | [address] | | | | + + + + + + | Hgb | 13.5Comment: Testing | 11.3 - 15.5 | EXTERNAL | | | | performed at [facility];[address] | g/dL | LAB | | | | [address];[place] | | | | | | [address] | | | | + + + + + + | Hematocrit, | 40.9Comment: Testing | 34.0 - 46.0 % | EXTERNAL | | | POC | performed at [facility];[address] | | LAB | | | | [address];[place] | | | | | | [address] | | | | + + + + + + | MCV | 90.0Comment: Testing | 80.0 - 100.0 fl | EXTERNAL | | | | performed at [facility];[address] | | LAB | | | | [address];[place] | | | | | | [address] | | | | + + + + + + | MCH | 29.7Comment: Testing | 27.0 - 34.0 pg | EXTERNAL | | | | performed at [facility];[address] | | LAB | | | [address];[place] | | | | | | [address] | | | | + + + + + + | MCHC | 33.0Comment: Testing | 32.0 - 35.5 | EXTERNAL | | | | performed at [facility];[address] | g/dL | LAB | | | | [address];[place] | | | | | | [address] | | | | + + + + + + | RDW-CV | 47.7Comment: Testing | 37 - 53 fl | EXTERNAL | | | | performed at [facility];[address] | | LAB | | | | [address];[place] | | | | | | [address] | | | | + + + + + + | Platelet | 230Comment: Testing | 150 - 400 K/uL | EXTERNAL | | | Count | performed at [facility];[address] | | LAB | | | Plasma | [address];[place] | | | | | | [address] | | | | + + + + + + | MPV | 7.8Comment: Testing | fl | EXTERNAL | | | | performed at [facility];[address] | | LAB | | | | [address];[place] | | | | | | [address] | | | | + + + + + + | Differentia | AUTOMATEDComment: | | EXTERNAL | | | l Type | Testing performed at | | LAB | | | | [facility];[address];[place] [address] | | | | + + + + + + | % Segmented | 56.2Comment: Testing | % | EXTERNAL | | | | performed at [facility];[address] | | LAB | | | Neutrophils | [address];[place] | | | | | | [address] | | | | + + + + + + | % | 28.3Comment: Testing | % | EXTERNAL | | | Lymphocytes | performed at [facility];[address] | | LAB | | | | [address];[place] | | | | | | [address] | | | | + + + + + + | % Monocytes | 9.7Comment: Testing | % | EXTERNAL | | | | performed at [facility];[address] | | LAB | | | | [address];[place] | | | | | | [address] | | | | + + + + + + | % | 4.6Comment: Testing | % | EXTERNAL | | | Eosinophils | performed at [facility];[address] | | LAB | | | | [address];[place] | | | | | | [address] | | | | + + + + + + | % Basophils | 1.2Comment: Testing | % | EXTERNAL | | | | performed at [facility];[address] | | LAB | | | | [address];[place] | | | | | | [address] | | | | + + + + + + | Absolute | 6.1Comment: Testing | 1.9 - 7.4 K/uL | EXTERNAL | | | Segmented | performed at [facility];[address] | | LAB | | | Neutrophils | [address];[place] | | | | | | [address] | | | | + + + + + + | Absolute | 3.1Comment: Testing | 1.0 - 3.9 K/uL | EXTERNAL | | | Lymphocytes | performed at [facility];[address] | | LAB | | | | [address];[place] | | | | | | [address] | | | | + + + + + + | Absolute | 1.0 (H)Comment: Testing | 0 - 0.8 K/uL | EXTERNAL | | | Monocytes | performed at [facility];[address] | | LAB | | | | [address];[place] | | | | | | [address] | | | | + + + + + + | Absolute | 0.5Comment: Testing | 0 - 0.5 K/uL | EXTERNAL | | | Eosinophils | performed at [facility];[address] | | LAB | | | | [address];[place] | | | | | | [address] | | | | + + + + + + | Absolute | 0.1Comment: Testing | 0 - 0.1 K/uL | EXTERNAL | | | Basophils | performed at [facility];[address] | | LAB | | | | [address];[place], [place] | | | | | | [address] | | | | + + + [...] + +---------+ + + Basic Metabolic Panel (03/07/2014 11:41 AM PST) + + + + + + | Component | Value | Ref Range | Performed | Pathologist | | | | | At | Signature | + + + + + + | Na | 140Comment: Testing | 135 - 143 | EXTERNAL | | | | performed at [facility];[address] | mmol/L | LAB | | | | [address];[place] | | | | | | [address] | | | | + + + + + + | K | 3.8Comment: Testing | 3.5 - 4.9 | EXTERNAL | | | | performed at [facility];[address] | mmol/L | LAB | | | | [address];[place] | | | | | | [address] | | | | + + + + + + | Cl | 104Comment: Testing | 99 - 109 mmol/L | EXTERNAL | | | | performed at [facility];[address] | | LAB | | | | [address];[place] | | | | | | [address] | | | | + + + + + + | CO2 | 29Comment: Testing | 23 - 32 mmol/L | EXTERNAL | | | | performed at [facility];[address] | | LAB | | | | [address];[place] | | | | | | [address] | | | | + + + + + + | Anion Gap | 12Comment: Testing | 5 - 20 mmol/L | EXTERNAL | | | | performed at [facility];[address] | | LAB | | | | [address];[place] | | | | | | [address] | | | | + + + + + + | Glucose, | 123 (H)Comment: Testing | 65 - 99 mg/dL | EXTERNAL | | | Fasting | performed at [facility];[address] | | LAB | | | | [address];[place] | | | | | | [address] | | | | + + + + + + | BUN | 27 (H)Comment: Testing | 8 - 25 mg/dL | EXTERNAL | | | | performed at [facility];[address] | | LAB | | | | [address];[place] | | | | | | [address] | | | | + + + + + + | Creatinine | 1.31 (H)Comment: Testing | 0.50 - 1.00 | EXTERNAL | | | | performed at [facility];[address] | mg/dL | LAB | | | | [address];[place] | | | | | | [address] | | | | + + + + + + | BUN/Creatin | 21Comment: Testing | | EXTERNAL | | | ine Ratio | performed at [facility];[address] | | LAB | | | | [address];[place] | | | | | | [address] | | | | + + + + + + | Calcium | 9.4Comment: Testing | 8.5 - 10.2 | EXTERNAL | | | | performed at [facility];[address] | mg/dL | LAB | | | | [address];[place], [place] | | | | | | [address] | | | | + + + + + + | Estimated | 41 (L)Comment: GFR <60: | mL/min/1.73m2 | EXTERNAL [...] | | | | | | at [facility];[address];[place] [address] | | | | + + + + + + + + | Specimen | + + | Blood specimen | | (specimen) | + + + +---------+ + + | Performing | Address | City/State/Zipcode | Phone Number | | Organization | | | | + +---------+ + + | EXTERNAL LAB | | | | + +---------+ + + MRSA NAAT (03/07/2014 11:41 AM PST) + + | Specimen | + + | | + + + + + | Narrative | Performed At | + + + | [facility](NOSE) | EXTERNAL LAB | | Testing performed at [facility];[address] [place] [address];[place] [address] MRSA PCR | | | NEGATIVE Testing performed at | | | [facility];[address] [place] [address];[place] [address] | | + + + + +---------+ + + | Performing | Address | City/State/Zipcode | Phone Number | | Organization | | | | + +---------+ + + | EXTERNAL LAB | | | | + +---------+ + + documented in this encounter Visit Diagnoses + + | Diagnosis | + + | Ischemic cardiomyopathy Other specified forms of chronic ischemic heart disease | + + documented in this encounter
--- OUTSIDE RECORDS SUMMARY | ~2019-03-06 | XMS | Encounter Summary ---
Demographics + + + | Address | [address] | | | [place] [address] | + + + | Home Phone | | + + + | Preferred Language | Unknown | + + + | Marital Status | | + + + | Restoration Affiliation | [id number] | + + + | Race | Unknown | + + + | Ethnic Group | Unknown | + + + Author + + + | Author | [facility] | | | and [place] | + + + | Organization | [facility] | | [...] [place] | | | | | [address] | | + + + + + | Rivka Palma | ECON | Unknown | | + + + + + | Geno Kendall | ECON | Unknown | | + + + + + Care Team Providers + +------+ + | Care Training And Documentation Specialist Name | Role | Phone | [...] + + | 02/11/ | Refill | [facility] | Td Mondragon MD | Medication Refill | | 2019 | | PULMONOLOGY [address] | [address] | | | | | [address] | [place], [place] | | | | | [place], [place] | [address] | | | | | [address] | | | | | | [phone] | | | +--------+--------+ + + + [...] [place] | | | | | | [address] | | | | | | | [...] [place] | | | | | | [address] | | | | | | | | +--------+ + + + + documented as of this encounter Visit Diagnoses + + | Diagnosis | + + | Moderate persistent asthma, unspecified whether complicated - Primary | + + documented in this encounter"
--- OUTSIDE RECORDS SUMMARY | ~2019-03-06 | XMS | Encounter Summary ---
Demographics + + + | Address | [address] | | | [place] [address] | + + + | Home Phone | | + + + | Preferred Language | Unknown | + + + | Marital Status | | + + + | Scientology Affiliation | [id number] | + + + | Race | Unknown | + + + | Ethnic Group | Unknown | + + + Author + + + | Author | [facility] | | | and [place] | + + + | Organization | [facility] | | [...] [place], [place] | | | | | [address] | | + + + + + | Rivka Palma | ECON | Unknown | | + + + + + | Geno Kendall | ECON | Unknown | | + + + + + Care Team Providers + +------+ + | Care Glass Enamel Mixer Name | Role | Phone | + [...] + + | 08/31/ | Telephone | [facility] | Brandon Terry | Shortness of Breath | | 2013 | | PULMONARY [address] | [place] [address] [address] | | | | | [place], | [place], [place] | | | | | [place] [address] | [id number] | | | | | [phone] | | | +--------+ + + + [...] [place] | | | | | | [address] | | | | | | | [...] [place] | | | | | | [address] | | | | | | | [...]
--- OUTSIDE RECORDS SUMMARY | ~2019-03-06 | XMS | Encounter Summary ---
Demographics + + + | Address | [address] | | | [place] [address] | + + + | Home Phone | | + + + | Preferred Language | Unknown | + + + | Marital Status | | + + + | Uatsdin Affiliation | 1041 | + + + | Race | Unknown | + + + | Ethnic Group | Unknown | + + + Author + + + | Author | [facility] | | | and [place] | + + + | Organization | [facility] | | | [...] [place], [place] | | | | | [address] | | + + + + + | Rivka Palma | ECON | Unknown | | + + + + + | Geno Kendall | ECON | Unknown | | + + + + + Care Team Providers + +------+ + | Care Batch Mixer Operator Name | Role | Phone | + +------+ + | Lorenzo Valdes MD | PCP | | + +------+ + Encounter Details +--------+ + + + + | Date | Type | Department | Care Team | Description | +--------+ + + + + | 04/30/ | Orders Only | [facility] | [place] Mar, | | | 2017 | | NEPRHOLOGY [place] | [facility] [address] | | | | | [address] | [facility] | | | | | [address] [place], [place] | [place] | | | | | [address] | [address] | | | | | [phone] | [phone] | | | | | | | [...] | 03/09/ | Office | Cardiology | Sona Stock[place], | | | 2018 | Visit | | [address] | | | | | | [place] | | | | | | [address] | | | | | | | [...] [place] | | | | | | [address] | | | | | | | | +--------+ + + + + documented as of this encounter Procedures + +--------+ + + + | Procedure Name | Priori | Date/Time | Associated Diagnosis | Comments | | | ty | | | | + +--------+ + + + | EXTERNAL LAB: CBC | Routin | 04/30/2017 | | Results for this | | | e | 12:00 AM | | procedure are in the | | | | PST | | results section. | + +--------+ + + + | URINALYSIS, REFLEX | Routin | 04/30/2017 | | Results for this | | MICROSCOPIC AND/OR | e | 12:00 AM | | procedure are in the | | CULTURE | | PST | | results section. | + +--------+ + + + | VITAMIN D, | Routin | 04/30/2017 | | Results for this | | DEFICIENCY SCREEN | e | 12:00 AM | | procedure are in the | | (25-HYDROXY) | | PST | | results section. | + +--------+ + + + | PROTEIN/CREATININE | Routin | 04/30/2017 | | Results for this | | RATIO, URINE | e | 12:00 AM | | procedure are in the | | | | PST | | results section. | + +--------+ + + + | URIC ACID | Routin | 04/30/2017 | | Results for this | | | e | 12:00 AM | | procedure are in the | | | | PST | | results section. | + +--------+ + + + | PARATHYROID HORMONE, | Routin | 04/30/2017 | | Results for this | | INTACT | e | 12:00 AM | | procedure are in the | | | | PST | | results section. | + +--------+ + + + | MAGNESIUM | Routin | 04/30/2017 | | Results for this | | | e | 12:00 AM | | procedure are in the | | | | PST | | results section. | + +--------+ + + + | RENAL FUNCTION PANEL | Routin | 04/30/2017 | | Results for this | | | e | 12:00 AM | | procedure are in the | | | | PST | | results section. | + +--------+ + + + documented in this encounter Results Urinalysis, Reflex Microscopic and/or Culture (04/30/2017 12:00 AM PST) + + + + [...] + + + | Spec Grav, | 1.009 | 1.005 - 1.030 | EXTERNAL | [...] + + + + | Total | neg | | EXTERNAL | | | Protein | | | LAB | | + + + + + + | Blood, | Negative | | EXTERNAL | | | Urine | | | LAB | | + + + + + + | Ketones | neg | | EXTERNAL | | | | [...] Performed At | + + + | CAST'S - HYALINE 2+ WBC'S - 0-0-4 RBC'S - 0-0-4 EPITHELIAL - | EXTERNAL LAB | | NEGATIVE CRYSTALS - NEGATIVE BACTERIA - NEGATIVE | | + + + + +---------+ + + | Performing | Address | City/State/Zipcode | Phone Number | | Organization | | | | + +---------+ + + | EXTERNAL LAB | | | | + +---------+ + + Protein/Creatinine Ratio, Urine (04/30/2017 12:00 AM PST) + + + + + + | Component | Value | Ref Range | Performed | Pathologist | | | | | At | Signature | + + + + + + | Protein/Cre | 279.1 (A) | 0 - 150 | EXTERNAL [...] + + Vitamin D, Deficiency Screen (25-Hydroxy) (04/30/2017 12:00 AM PST) + +-------+ + + + | Component | Value | Ref Range | Performed | Pathologist | | | | | At | Signature | + +-------+ + + + | Vit D, | 37 | 30 - 100 | EXTERNAL | [...] + +---------+ + + External Lab: CBC (04/30/2017 12:00 AM PST) + + + + [...] + + + | RED CELL | 4.82 | 3.8 - 5.1 10 | EXTERNAL | | | COUNT | | | LAB | | + + + + + + | Hgb | 14.6 | 12.0 - 16.0 | EXTERNAL | [...] + + + + | Platelet | 192 | 140 - 440 K/ L | [...] + + + | % Segmented | 46.6 | 39 - 80 % | EXTERNAL | | | | | | LAB | | | Neutrophils | | | | | + + + + + + | % | 31.6 | 24 - 44 % | EXTERNAL | | | Lymphocytes | | | LAB | | + + + + + + | % Monocytes | 11.9 | 0 - 12 % | EXTERNAL | | | | | | LAB | | + + + + + + | % | 9.4 (A) | 0 - 6 % | EXTERNAL | | | Eosinophils | | | LAB | | + + + + + + | % Basophils | 0.6 | 0 - 2 % | EXTERNAL [...] | + +---------+ + + Uric Acid (04/30/2017 12:00 AM PST) + +---------+ + + + | Component | Value | Ref Range | Performed | Pathologist | | | | | At | Signature | + +---------+ + + + | Uric Acid | 7.6 (A) | 2.3 - 6.6 | EXTERNAL [...] + +---------+ + + Parathyroid Hormone, Intact (04/30/2017 12:00 AM PST) + + + + + + | Component | Value | Ref Range | Performed | Pathologist | | | | | At | Signature | + + + + + + | PTH INTACT | 197.8 (A) | 15 - 65 pg/mL | [...] | | + +---------+ + + Magnesium (04/30/2017 12:00 AM PST) + +-------+ + + [...] + +---------+ + + Renal Function Panel (04/30/2017 12:00 AM PST) + +---------+ + + + | Component | Value | Ref Range | Performed | Pathologist | | | | | At | Signature | + +---------+ + + + | Glucose, | 132 (A) | 70 - 100 mg/dL | EXTERNAL | | | Fasting | | | LAB | | + +---------+ + + + | BUN | 27 (A) | 6 - 23 mg/dL | EXTERNAL | | | | | | LAB | | + +---------+ + + + | Creatinine | 1.06 | 0.70 - 1.11 | EXTERNAL | | | | | mg/dL | LAB | | + +---------+ + + + | PHOSPHORUS | | mg/dL | EXTERNAL | | | | | | LAB | | + +---------+ + + + | Albumin | 4.0 | 3.5 - 5.0 | EXTERNAL | | | | | | LAB | | + +---------+ + + + | Na | 140 | 132 - 143 | EXTERNAL | [...] +---------+ + + + | CO2 | 23 | 19 - 31 mmol/L | EXTERNAL | | | | | | LAB | | + +---------+ + + + | Anion Gap | 15.9 | 7 - 21 mmol/L | EXTERNAL | | | | | | LAB | | + +---------+ + + + | eGFR if not | | | EXTERNAL | | | | | | LAB | | | CROATIAN | | | | | + +---------+ + + + | Phosphorus, | 3.2 | 2.5 - 5.0 | EXTERNAL | | | Inorganic | | | LAB | | + +---------+ + + + | BUN/Creatin | 25.5 | 6.0 - 28.6 | EXTERNAL | | | ine Ratio | | | LAB | | + +---------+ + + + | Calcium | 9.3 | 8.4 - 10.2 | EXTERNAL | | | | | mg/dL | LAB | | + +---------+ + + + | Estimated | 49 | mg/dL | EXTERNAL | | | [...]
--- OUTSIDE RECORDS SUMMARY | ~2019-03-06 | XMS | Encounter Summary ---
Demographics + + + | Address | [address] | | | [place] [address] | + + + | Home Phone | | + + + | Preferred Language | Unknown | + + + | Marital Status | Single | + + + | Confucianism Affiliation | Unknown | + + + | Race | Unknown | + + + | Ethnic Group | Other Race | + + + Author + + + | Author | [facility] | + + + | Organization | [facility] | + + [...] Team Providers + +------+ + | Care Formation Testing Operator Name | Role | Phone | + +------+ + PCP | Unavailable | + +------+ + Reason for Visit +--------+ + | Reason | Comments | +--------+ + | Other | | +--------+ + Encounter Details +--------+ + + + + | Date | Type | Department | Care Team | Description | +--------+ + + + + | 10/15/ | Telephone | Orthopaedics at | Peter Larson, | Other | | 2018 | | [address] | [address] | | | | | [place] | [facility] | | | | | [address] | [place], [place] | | | | | [place] | [address] | | | | | [address] | [phone] | | | | | [phone] | | | +--------+ + + + [...] Not on filedocumented as of this encounter Visit Diagnoses Not on filedocumented in this encounter"
--- OUTSIDE RECORDS SUMMARY | ~2019-03-06 | XMS | Encounter Summary ---
Demographics + + + | Address | [address] | | | [place] [address] | + + + | Home Phone | | + + + | Preferred Language | Unknown | + + + | Marital Status | | + + + | Caodaism Affiliation | 1041 | + + + | Race | Unknown | + + + | Ethnic Group | Unknown | + + + Author + + + | Author | [facility] | | | and [place] | + + + | Organization | [facility] | | | [...] [place], [place] | | | | | [address] | | + + + + + | Rivka Palma | ECON | Unknown | | + + + + + | Geno Kendall | ECON | Unknown | | + + + + + Care Team Providers + +------+ + | Care Management Sme Name | Role | Phone | + +------+ + | Lorenzo Valdes MD | PCP | | + +------+ + Encounter Details +--------+ + + + + | Date | Type | Department | Care Team | Description | +--------+ + + + + | 03/06/ | Orders Only | [facility] | Conversion | | | 2013 | | NEPHROLOGY [place] | Transaction, | | | | | [address] | Provider Unknown | | | | | [place] | [phone] | | | | | [address] | | | | | | [phone] | | | +--------+ + + + [...] [place] | | | | | | [address] | | | | | | | [...] [place] | | | | | | [address] | | | | | | | [...] | | | LAB | | | CZE[facility] | | | | | + + [...]
--- OUTSIDE RECORDS SUMMARY | ~2019-03-06 | XMS | Encounter Summary ---
Demographics + + + | Address | [address] | | | [place] [address] | + + + | Home Phone | | + + + | Preferred Language | Unknown | + + + | Marital Status | | + + + | Islam Affiliation | 1041 | + + + | Race | Unknown | + + + | Ethnic Group | Unknown | + + + Author + + + | Author | [facility] | | | and [place] | + + + | Organization | [facility] | | | [...] [place], [place] | | | | | [address] | | + + + + + | Rivka Palma | ECON | Unknown | | + + + + + | Geno Kendall | ECON | Unknown | | + + + + + Care Team Providers + +------+ + | Care Children'S Counselor Name | Role | Phone | + +------+ + | Lorenzo Valdes MD | PCP | | + +------+ + Reason for Visit +--------+ + | Reason | Comments | +--------+ + | Other | Medication change | +--------+ + Encounter Details +--------+ + + + + | Date | Type | Department | Care Team | Description | +--------+ + + + + | 08/16/ | Telephone | [facility] | Brandon Terry | Other (Medication | | 2015 | | PULMONARY [address] | [place] [address] [address] | change) | | | | [place], | [place], [place] | | | | | [place] [address] | [address] | | | | | [phone] | | | +--------+ + + + [...] [place] | | | | | | [address] | | | | | | | [...] [place] | | | | | | [address] | | | | | | | | +--------+ + + + + documented as of this encounter Visit Diagnoses + + | Diagnosis | + + | Intrinsic asthma, unspecified - Primary | + + | Extrinsic asthma, unspecified | + + | Bronchiectasis without acute exacerbation (HCC) Bronchiectasis without acute | | exacerbation | + + documented in this encounter"
--- OUTSIDE RECORDS SUMMARY | ~2019-03-06 | XMS | Encounter Summary ---
Demographics + + + | Address | [address] | | | [place] [address] | + + + | Home Phone | | + + + | Preferred Language | Unknown | + + + | Marital Status | | + + + | Latter Day Affiliation | 1041 | + + + [...] [place], [place] | | | | | [address] | | + + + + + | Rivka Palma | ECON | Unknown | | + + + + + | Geno Kendall | ECON | Unknown | | + + + + + Care Team Providers + +------+ + | Care Forensic Social Worker Name | Role | Phone | + +------+ + | Lorenzo Valdes MD | PCP | | + +------+ + Reason for Visit +--------+ + | Reason | Comments | +--------+ + | Asthma | f/u | +--------+ + | COPD | | +--------+ + Encounter Details +--------+---------+ + + + | Date | Type | Department | Care Team | Description | +--------+---------+ + + + | 08/16/ | Office | [facility] | Brandon Terry | BRONCHIECTASIS | | 2014 | Visit | PULMONARY [address] | [place] [address] [address] | (Primary Dx); | | | | [place], | [place], [place] | [place], | | | | [place] [address] | [id number] | OBSTRUCTIVE CHRONIC; | | | | [phone] | | Asthma, extrinsic, | | | | | | mild persistent, | | | | | | uncomplicated; | | | | | | Allergic rhinitis | | | | | | due to pollen; | | | | | | Coronary artery | | | | | | disease involving | | | | | | little shell tribe coronary | | | | | | artery without | | | | | | angina pectoris; S/P | | | | | | CABG (coronary | | | | | | artery bypass graft) | +--------+---------+ + + + Social History [...] + + + | Blood Pressure | 122/66 | 08/16/2014 10:08 AM | | | | | PDT | | + + + + + | Pulse | 84 | 08/16/2014 10:08 AM | | | | | PDT | | + + + + + | Temperature | - | - | | + + + + + | Respiratory Rate | 14 | 08/16/2014 10:08 AM | | | | | PDT | | + + + + + | Oxygen Saturation | 94% | 08/16/2014 10:08 AM | room air | | | | PDT | | + + + + + | Inhaled Oxygen | - | - | | | Concentration | | | | + + + + + | Weight | 60.9 kg (134 lb 3.2 | 08/16/2014 10:08 AM | | | | oz) | PDT | | + + + + + | Height | 165.1 cm (5' 5") | 08/16/2014 10:08 AM | | | | | PDT | | + + + + + | Body Mass Index | 22.33 | 08/16/2014 10:08 AM | | | | | PDT | | + + + + + documented in this encounter Patient Instructions Patient Instructions Brandon Terry MD - 08/16/2014 10:34 AM PDTTo substitute for Pu lmicort, Begin Asmanex inhaler, 2 puffs once daily. Rinse your your throat after. Continue Atrovent inhaler as needed. I sent a prescription to [facility] for the Asmanex. Continue to use the Acapella device as needed for mucus. Continue the guaifenesin (generic mucinex) daily. Get a flu shot this fall. Continue the fluticasone nasal spray as needed and the cetirizine (Zyrtec) daily. If you have not had the new Prevnar 13 pneumonia vaccine, you should get that. (Check [facility] Dr. Valdes records.) documented in this encounter Progress Notes Brandon Terry MD - 08/16/2014 5:57 PM PDTFormatting of this note might be differen t from the original. Brandon Terry MD [facility] [address] [place] [id number] 08/16/2014 Tamiko Ireland 1930 History Tamiok Ireland is a 84 y.o. female followed for symptoms of chronic cough and mucus produ ction due to bronchiectasis. Treatment with inhaled corticosteroids resulted in improved co ugh and she was eventually reduce her Pulmicort to a relatively low dose. She also has an A capella mucous clearance device that she uses on an as-needed basis. She does use guaifenes in on a daily basis. She has had a very eventful past year, related primarily to cardiac disease. She noted lam e shortness of breath that was initially attributed to her lung disease. However, she devel oped clinical heart failure and further evaluation showed a significant ischemic cardiomyopa thy. Following medical treatment, she underwent coronary bypass surgery at [facility] on December 12, 2013. She did have consultation with some significant renal insuffici ency postoperatively. In February 2014 she had placement of a pacemaker. She is doing bett er now and reports that her ejection fraction has improved from 10 to 20%. About 2 weeks ag o, she underwent left thoracentesis, for the first time since her cardiac surgery. I was ab le to obtain those records electronically and it appears it was a small effusion with just 2 00 mL of renate-colored fluid removed on August 02, 2014. 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 She feels her airway disease is doing reasonably well. She does not recall any recent exac erbations of her airway disease. She does have new medication insurance this year and has received notification that Pulmicort would not be covered and therefore she would like to tr y an alternative steroid inhaler. Pertinent Prior Medical History She was originally seen in May 2008, sent by Dr. Tono Valdes in [place], [place]. Mrs. Ireland recalled problems dating back to frequent bronchitis in childhood that suggested that she may even have had asthma in her youth. When Mrs. Ireland was 9 years old, her mother of tuberculosis. Frequent chest x-rays were obtained after her mother's and they did n ot show any evidence for tuberculosis in Mrs. Ireland. Her skin test for tuberculosis was also negative. Unfortunately, Mrs. Ireland ended up smoking cigarettes for about 30 years although she quit approximately 25 years ago. When I first saw her we were able to obtain a prior CT scan of t he chest that had been performed at [facility] on July 29, 2005. That CT scan [...] showed mild peripheral eosinophilia consistent with asthma. Patient Active Problem List Diagnosis RHINITIS, CHRONIC ASTHMA, INTRINSIC BRONCHIECTASIS BRONCHITIS, OBSTRUCTIVE CHRONIC COUGH ALLERGIC RHINITIS DUE TO POLLEN ASTHMA, EXTRINSIC CAD (coronary artery disease) Current Outpatient Prescriptions Medication Sig Dispense Refill acetaminophen (TYLENOL) 500 mg tablet Take 500 mg by mouth every 6 hours as needed. albuterol (VENTOLIN HFA) 90 mcg/puff inhaler Inhale 2 puffs into the lungs every 4 hour s as needed for Wheezing. 1 Inhaler 2 amiodarone (PACERONE) 200 mg tablet Take 200 mg by mouth Daily. aspirin (ADULT ASPIRIN EC LOW STRENGTH) 81 MG EC tablet Take 81 mg by mouth Daily. aspirin 325 mg EC tablet Take 325 mg by mouth Daily. bumetanide (BUMEX) 1 mg tablet Take 1 mg by mouth Daily. calcium ascorbate (BUFFERED VITAMIN C) 500 MG TABS Take 500 mg by mouth Daily. carvedilol (COREG) 3.125 mg tablet Take 3.125 [...] tablet Take 500 mg by mouth Daily. mometasone (ASMANEX 60 METERED DOSES) 220 mcg/puff inhaler Inhale 2 puffs into the lung s Daily. 1 Inhaler 11 omeprazole (PRILOSEC) 20 mg capsule Take 20 mg by mouth every morning (before breakfast ). rosuvastatin (CRESTOR) 10 mg tablet Take 10 mg by mouth Daily. spironolactone (ALDACTONE) 50 mg tablet Take 50 mg by mouth Daily. tetrahydrozoline-zinc (EYE DROPS ALLERGY RELIEF) 0.05-0.25 % ophthalmic solution 1 drop into each eye 2-3 times daily No current facility-administered medications for this visit. No Known Allergies Past Medical History was reviewed and updated in the electronic record. Review of Systems She does continue to have some shortness of breath, but realizes a significant contribution due to her heart failure. She has relatively mild chronic cough and mucus production. She also has very mild rhinitis symptoms. Physical Examination: BP 122/66 | Pulse 84 | Resp 14 | Ht 1.651 m (5' 5") | Wt 60.873 kg (134 lb 3.2 oz) | BMI 22 .33 kg/m2 | SpO2 94% General: Pleasant, elderly woman in no acute distress. She did not cough during the visit. She has lost a large amount of weight since I last saw her. HEENT: Oropharynx was clear without thrush. Slightly small airway. Neck: No adenopathy or thyromegaly. Lungs: Breath sounds very slightly reduced at the left lung base. Right lower lung crackle s. No left lung crackles. No wheezes. No rhonchi today. Heart: Regular rate and rhythm. Pacemaker generator in the left upper anterior chest. Extremities: No clubbing or cyanosis. Trace ankle edema. Skin: Warm and dry. Assessment: 1. 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 Current managem ent with an inhaled corticosteroid, regular guaifenesin, and use of a mucus clearance device as needed appears to still be managing her problem relatively well. She does not recall an y notable respiratory infections or pneumonia since she was last seen. New medication insur sri is requiring a change from her Pulmicort steroid inhaler to an alternative. We were no t able to determine the preferred formulary options, after trying to consult a couple of res ources. We will order Asmanex but may need additional information from her pharmacy about t he preferred formulary choices. 2. BRONCHITIS, OBSTRUCTIVE CHRONIC She has a 13-mysa-dgvt smoking history. Fortunately, pulmonary function test performed in 2008 showed very little airflow obstruction. Nonetheless, a CT scan of the chest that I obtained and reviewed, performed at another facility in 2005, did reveal extensive emphyse ma existing 9 years ago. This is certainly an ongoing problem that will contribute to dyspn ea. 3. Asthma, extrinsic, mild persistent, uncomplicated She did have eosinophilia when she was first seen in 2008. She also describes airway reacti vity if she is around dogs or cats. Her history from childhood also suggests possible childh ood asthma. This is an additional indication for ongoing use of her inhaled corticosteroid a lthough she has very little airflow obstruction by pulmonary function test criteria. She welsh s noted benefit using Atrovent inhaler as a reliever and given her heart disease, this will be continued. Previously under my care, she did not tolerate Spiriva or albuterol inhalers although by her verbal description she may have a Proventil inhaler at home as well. 4. Allergic rhinitis due to pollen She does have nasal allergy symptoms and is aware of multiple triggers for the symptoms. S he continues to use cetirizine regularly and will use fluticasone nasal spray when needed. 5. Coronary artery disease involving little shell tribe coronary artery without angina pectoris 6. S/P CABG (coronary artery bypass graft) She had coronary artery bypass surgery in December 2013 and pacemaker placement in 2013. She appears to be steadily recovering per her history. A couple of weeks ago she h ad drainage of a small amount of left pleural fluid, probably related to the open heart surg zohaib. PLAN: She will continue with an inhaled corticosteroid. I initially prescribed Asmanex 220 g s trength 2 puffs daily. We may need to provide a formulary alternative. Continue guaifenesin daily to help with mucus management. She should continue to use the Acapella device as needed to clear mucus. Continue Atrovent inhaler 2 puffs as needed. Continue fluticasone nasal spray as needed. Continue cetirizine 10 mg daily. Good hygiene to avoid respiratory infections. Flu vaccine recommended each fall season. She should check with Dr. Valdes and if she has not had Prevnar 13 vaccine, she should obtain that as well. Follow-up in one year or earlier problems. I spent 30 minutes face to face with the patient, greater than 50 % of the total time was s pent in counseling and coordination of care. Addendum: Her pharmacy contacted us later the day of the visit. They indicated that her n ew medication formulary choices for inhaled corticosteroids would be Qvar or Flovent HFA. W laura will contact the patient and provide a prescription for one of these inhalers, most likely Qvar 80, two puffs daily. Brandon Terry Cc: Dr. Valdes Portions of this documentation were transcribed using voice recognition software. Every eff ort has been made to ensure accuracy; however, unintended grammatical and/or spelling errors may be present due to inadvertent computerized hand therapist errors. If there are any ques tions regarding the hand therapist, please contact our office. documented in th is encounter Plan of Treatment +--------+ + + + + | Date | Type | Specialty | Care Team | Description | +--------+ + + + + | 03/09/ | Office | Cardiology | [place], | | | 2018 | Visit | | MD [place] | | | | | | [address] [place] | | | | | | [phone] | | | | | | | [...] [place] | | | | | | [address] | | | | | | | | +--------+ + + + + documented as of this encounter Visit Diagnoses + + | Diagnosis | + + | BRONCHIECTASIS - Primary Bronchiectasis without acute exacerbation | + + | BRONCHITIS, OBSTRUCTIVE CHRONIC Obstructive chronic bronchitis without exacerbation | + + | Asthma, extrinsic, mild persistent, uncomplicated | + + | Allergic rhinitis due to pollen | + + | Coronary artery disease involving little shell tribe coronary artery without angina pectoris | + + | S/P CABG (coronary artery bypass graft) Postsurgical aortocoronary bypass status | + + documented in this encounter
--- OUTSIDE RECORDS SUMMARY | ~2019-03-06 | XMS | Encounter Summary ---
Demographics + + + | Address | [address] | | | [place] [address] | + + + | Home Phone | | + + + | Preferred Language | Unknown | + + + | Marital Status | | + + + | Taoism Affiliation | 1041 | + + + | Race | Unknown | + + + | Ethnic Group | Unknown | + + + Author + + + | Author | [facility] | | | and [place] | + + + | Organization | [facility] | | | [...] [place] | | | | | [address] | | + + + + + | Rivka Palma | ECON | Unknown | | + + + + + | Geno Kendall | ECON | Unknown | | + + + + + Care Team Providers + +------+ + | Care Topper Press Operator Automatic Name | Role | Phone | + [...] + + | 07/25/ | Refill | [facility] | Brandon Terry | Medication Refill | | 2012 | | PULMONARY [address] | [place] [address] [address] | | | | | [place], | [place], [place] | | | | | [place] [address] | [address] | | | | | [phone] | | | +--------+--------+ + + + [...] [place] | | | | | | [address] | | | | | | | [...] [place] | | | | | | [address] | | | | | | | | +--------+ + + + + documented as of this encounter Visit Diagnoses Not on filedocumented in this encounter"
--- OUTSIDE RECORDS SUMMARY | ~2019-03-06 | XMS | Encounter Summary ---
Demographics + + + | Address | [address] | | | [place] [address] | + + + | Home Phone [...] [place], [place] | | | | | [address] | | + + + + + | Rivka Palma | ECON | Unknown | | + + + + + | Geno Kendall | ECON | Unknown | | + + + + + Care Team Providers + +------+ + | Care Fish Drier Name | Role | Phone | + +------+ + | Lorenzo Valdes MD | PCP | | + +------+ + Encounter Details +--------+ + + + + | Date | Type | Department | Care Team | Description | +--------+ + + + + | 07/22/ | Orders Only | [facility] | Conversion | | | 2015 | | CARDIOLOGY IMPERIAL | Transaction, | | | | | [address] | Provider Unknown | | | | | [place], [place] | [phone] | | | | | [address] | | | | | | [phone] | | | +--------+ + + + [...] [place] | | | | | | [address] | | | | | | | [...] [place] | | | | | | [address] | | | | | | | | +--------+ + + + + documented as of this encounter Procedures + +--------+ + + + | Procedure Name | Priori | Date/Time | Associated Diagnosis | Comments | | | ty | | | | + +--------+ + + + | CBC WITH MANUAL | Routin | 07/23/2015 | | Results for this | | DIFFERENTIAL | e | 9:01 AM | | procedure are in the | | | | PDT | | results section. | + +--------+ + + + | LIPID PANEL | Routin | 07/23/2015 | | Results for this | | | e | 9:01 AM | | procedure are in the | | | | PDT | | results section. | + +--------+ + + + | URINALYSIS, | Routin | 07/23/2015 | | Results for this | | MICROSCOPIC ONLY | e | 9:01 AM | | procedure are in the | | | | PDT | | results section. | + +--------+ + + + | MICROALBUMIN/CREATIN | Routin | 07/23/2015 | | Results for this | | INE RATIO, URINE | e | 9:01 AM | | procedure are in the | | TEST | | PDT | | results section. | + +--------+ + + + | MICROALBUMIN, URINE, | Routin | 07/23/2015 | | Results for this | | 24HR | e | 9:01 AM | | procedure are in the | | | | PDT | | results section. | + +--------+ + + + | CREATININE, URINE, | Routin | 07/23/2015 | | Results for this | | RANDOM | e | 9:01 AM | | procedure are in the | | | | PDT | | results section. | + +--------+ + + + | SEDIMENTATION RATE, | Routin | 07/23/2015 | | Results for this | | AUTOMATED | e | 9:01 AM | | procedure are in the | | | | PDT | | results section. | + +--------+ + + + | TSH | Routin | 07/23/2015 | | Results for this | | | e | 9:01 AM | | procedure are in the | | | | PDT | | results section. | + +--------+ + + + | T4, FREE | Routin | 07/23/2015 | | Results for this | | | e | 9:01 AM | | procedure are in the | | | | PDT | | results section. | + +--------+ + + + | B TYPE NATRIURETIC | Routin | 07/23/2015 | | Results for this | | PEPTIDE | e | 9:01 AM | | procedure are in the | | | | PDT | | results section. | + +--------+ + + + | HEMOGLOBIN A1C | Routin | 07/23/2015 | | Results for this | | | e | 9:01 AM | | procedure are in the | | | | PDT | | results section. | + +--------+ + + + | COMPREHENSIVE | Routin | 07/23/2015 | | Results for this | | METABOLIC PANEL | e | 9:01 AM | | procedure are in the | | | | PDT | | results section. | + +--------+ + + + documented in this encounter Results Microalbumin, Urine, 24Hr (07/23/2015 9:01 AM PDT) + +-------+ + + + | Component | Value | Ref Range | Performed | Pathologist | | | | | At | Signature | + +-------+ + + + | Microalbumi | 1.5 | 0.0 - 2.0 mg/24 | EXTERNAL | | | n, Urine | | hrs | LAB | | | 24hr | | | | | + +-------+ [...] + +---------+ + + Microalbumin/Creatinine Ratio, Urine (07/23/2015 9:01 AM PDT) + +-------+ + + + | Component | Value | Ref Range | Performed | Pathologist | | | | | At | Signature | + +-------+ + + + | ALBUMIN/CRE | 16.0 | 0 - 30 | EXTERNAL | | | ATININE | | | LAB | | | RATIO.URINE | | | | | | .ORD.MG/G | | | | | | (BEAKER) | | | | | | | [...] + +---------+ + + Creatinine, Urine, Random (07/23/2015 9:01 AM PDT) + +-------+ + + + | Component | Value | Ref Range | Performed | Pathologist | | | | | At | Signature | + +-------+ + + + | Creatinine, | 94 | | EXTERNAL | | | 24H [...] + +---------+ + + Urinalysis, Microscopic Only (07/23/2015 9:01 AM PDT) + + + + + [...] + + + + | Specific | 1.013 | 1.005 - 1.030 | EXTERNAL | | | [place] | | | LAB | | + [...] + + + + | Protein, | Negative | | EXTERNAL | | | Urine | | | LAB | | + + + + + + | pH, Urine | 7 | 5 - 9 | EXTERNAL | | | | | | LAB | | + + + + + + | Blood, | Positive | | EXTERNAL | | | Urine | | | LAB | | + + + + + + | Ketones | negative | | EXTERNAL | | | | [...] | | | + +---------+ + + Sedimentation rate, automated (07/23/2015 9:01 AM PDT) + +--------+ + + + | Component | Value | Ref Range | Performed | Pathologist | | | | | At | Signature | + +--------+ + + + | Sed Rate | 40 (A) | 0 - 20 | EXTERNAL | | | | | [...] +---------+ + + CBC with Manual Differential (07/23/2015 9:01 AM PDT) + + + + + [...] + + | Hgb | 13.6 | 12.0 - 16.0 | EXTERNAL | | | | | g/dL | LAB | | + + + + + + | Hematocrit, | 41.6 | 35 - 45 % | EXTERNAL | | | POC | | | LAB | | + + + + + + | MCV | 91.0 | 81 - 99 fL | EXTERNAL [...] + + + + | RDW-CV | 14.6 | 10.5 - 15.0 % | EXTERNAL | | | | | | LAB | | + + + + + + | Platelet | 191 [...] + + + | % Segmented | 59.6 | 39 - 80 % | EXTERNAL | | | | | | LAB | | | Neutrophils | | | | | + + + + + + | % | 23.6 (A) | 24 - 44 % | EXTERNAL | | | Lymphocytes | | | LAB | | + + + + + + | % Monocytes | 10.1 | 0 - 12 % | EXTERNAL | | | | | | LAB | | + + + + + + | % | 5.4 | 0 - 6 % | EXTERNAL [...] | | + +---------+ + + TSH (07/23/2015 9:01 AM PDT) + +-------+ + + + | Component | Value | Ref Range | Performed | Pathologist | | | | | At | Signature | + +-------+ + + + | TSI | 1.59 | 0.270 - 4.20 | EXTERNAL | [...] | + +---------+ + + T4, Free (07/23/2015 9:01 AM PDT) + +-------+ + + + | Component | Value | Ref Range | Performed | Pathologist | | | | | At | Signature | + +-------+ + + + | FREE T4 | 1.50 | 0.70 - 1.7 | EXTERNAL | | | (REF) | | | LAB | | + [...] +---------+ + + B Type Natriuretic Peptide (07/23/2015 9:01 AM PDT) + +---------+ + + + | Component | Value | Ref Range | Performed | Pathologist | | | | | At | Signature | + +---------+ + + + | BNP | 214 (A) | 0 - 100 pg/mL | [...] | + +---------+ + + Hemoglobin A1C (07/23/2015 9:01 AM PDT) + + + + + + | Component | Value | Ref Range | Performed | Pathologist | | | | | At | Signature | + + + + + + | Hemoglobin | 6.3Comment: Est avg | % | EXTERNAL | | | A1c | glucose 134 | | LAB | | + + [...] | + +---------+ + + Lipid Panel (07/23/2015 9:01 AM PDT) + +-------+ + + + | Component | Value | Ref Range | Performed | Pathologist | | | | | At | Signature | + +-------+ + + + | Cholesterol | 158 | 200 mg/dL | EXTERNAL | | | | | | LAB | | + +-------+ + + + | Triglycerid | 136 | 30 - 150 mg/dL | EXTERNAL | | | es | | | LAB | | + +-------+ + + + | HDL | 56.1 | 40 mg/dl | EXTERNAL | | | | | | LAB | | + +-------+ + + + | LDL | 75 | 100 mg/dL | EXTERNAL | | | Cholesterol | | | LAB | | | , | | | | | | Calculated, | | | | | | External | | | | | + +-------+ + + + | LDl/HDL | | | EXTERNAL | | | Ratio | | | LAB | | + +-------+ + + + | Chol/HDL | 2.8 | 4.44 | EXTERNAL | | | Ratio | | | LAB | | + +-------+ + + + | VLDL | 27 | 4 - 40 mg/dL | EXTERNAL | | | | | | LAB | | + +-------+ + + + | Non HDL | 102 | 130 | EXTERNAL | | | Chol. | | | LAB | | | (LDL+VLDL) | | | | | + +-------+ [...] + +---------+ + + Comprehensive Metabolic Panel (07/23/2015 9:01 AM PDT) + + + + + + | Component | Value | Ref Range | Performed | Pathologist | | | | | At | Signature | + + + + + + | Glucose, | 108 (A) | 70 - 100 mg/dL | EXTERNAL | | | Fasting | | | LAB | | + + + + + + | BUN | 39 (A) | 6 - 23 mg/dL | EXTERNAL | | | | | | LAB | | + + + + + + | Creatinine | 1.39 (A) | 0.70 - 1.11 | EXTERNAL | | | | | mg/dL | LAB | | + + + + + + | BUN/Creatin | 28.1 | 6.0 - 28.6 | EXTERNAL | | | ine Ratio | | | LAB | | + + + + + + | Calcium | 9.5 | 8.4 - 10.2 | EXTERNAL | | | | | mg/dL | LAB | | + + + + + + | Protein, | 6.6 | 6.0 - 8.0 g/dL | EXTERNAL | | | Total | | | LAB | | + + + + + + | Albumin | 4.1 | 3.5 - 5.0 | EXTERNAL | | | | | | LAB | | + + + + + + | Globulin | 2.5 [...] + + + + | ALP, | 88 | 30 - 128 | EXTERNAL | | | External | | | LAB | | + + + + + + | ALT | 9 | 7 - 52 U/L | EXTERNAL | | | | | | LAB | | + + + + + + | AST | 16 | 13 - 39 U/L | EXTERNAL [...] + + + | Anion Gap | 15.1 | 7 - 21 mmol/L | EXTERNAL | | | | | | LAB | | + + + + + + | Estimated | 36 (A) | 60 mg/dL | EXTERNAL | [...]
--- OUTSIDE RECORDS SUMMARY | ~2019-03-06 | XMS | Encounter Summary ---
Demographics + + + | Address | [address] | | | [place] [address] | + + + | Home Phone | | + + + | Preferred Language | Unknown | + + + | Marital Status | | + + + | Mu-Ism Affiliation | 1041 | + + + [...] [place], [place] | | | | | [address] | | + + + + + | Rivka Palma | ECON | Unknown | | + + + + + | Geno Kendall | ECON | Unknown | | + + + + + Care Team Providers + +------+ + | Care Supervisor Poultry Processing Name | Role | Phone | + +------+ + PCP | Unavailable | + +------+ + Encounter Details +--------+ + + + + | Date | Type | Department | Care Team | Description | +--------+ + + + + | 02/11/ | [facility] | [facility] | Christina Mead | | | 2009 | Encounter | [facility] | MD [address] [place] | | | | | [address] | [place], | | | | | [place] | [place] [address] | | | | | [address] | [phone] | | | | | [phone] | | | +--------+ + + + [...] [place] | | | | | | [address] | | | | | | | [...] [place] | | | | | | [address] | | | | | | | | +--------+ + + + + documented as of this encounter Visit Diagnoses Not on filedocumented in this encounter"
--- OUTSIDE RECORDS SUMMARY | ~2019-03-06 | XMS | Encounter Summary ---
Demographics + + + | Address | [address] | | | [place] [address] | + + + | Home Phone [...] [place], [place] | | | | | [address] | | + + + + + | Rivka Palma | ECON | Unknown | | + + + + + | Geno Kendall | ECON | Unknown | | + + + + + Care Team Providers + +------+ + | Care Senior Instructional Designer Name | Role | Phone | + +------+ + | Lorenzo Valdes MD | PCP | | + +------+ + Encounter Details +--------+ + + + + | Date | Type | Department | Care Team | Description | +--------+ + + + + | 09/22/ | Orders Only | [facility] | Conversion | | | 2013 | | CARDIOLOGY [place] | Transaction, | | | | | [address] | Provider Unknown | | | | | [place], [place] | [phone] | | | | | [address] | | | | | | [phone] | | | +--------+ + + + [...] [place] | | | | | | [address] | | | | | | | | +--------+ + + + + | 03/23/ | Procedure | Cardiology | | | | 2018 | visit | | | | +--------+ + + + + | 08/09/ | Office | Pulmonology | Td Mondraogn MD | | | 2019 | Visit | | [address] | | | | | | [place] | | | | | | [address] | | | | | | | [...]
--- OUTSIDE RECORDS SUMMARY | ~2019-03-06 | XMS | Encounter Summary ---
Demographics + + + | Address | [address] | | | [place] [address] | + + + | Home Phone | | + + + | Preferred Language | Unknown | + + + | Marital Status | | + + + | Pentecostal Affiliation | 1041 | + + + | Race | Unknown | + + + | Ethnic Group | Unknown | + + + Author + + + | Author | [facility] | | | and [place] | + + + | Organization | [facility] | | [...] [place], [place] | | | | | [address] | | + + + + + | Rivka Palma | ECON | Unknown | | + + + + + | Geno Kendall | ECON | Unknown | | + + + + + Care Team Providers + +------+ + | Care Bd Special Education Teacher Name | Role | Phone | + +------+ + | Lorenzo Valdes MD | PCP | | + +------+ + Encounter Details +--------+ + + + + | Date | Type | Department | Care Team | Description | +--------+ + + + + | 12/08/ | Hospital | [facility] | Ben [place]an[place] | NSTEMI (non-ST | | 2014 - | Encounter | [facility] | MD [place] [address] | elevated myocardial | | | | CARE FLOOR [address] [place], [place] | infarction) ([facility]); | | 12/16/ | [address] | [address] | DM (diabetes | | 2013 | | [place], [place] | | mellitus) ([facility]); HTN | | | | [id number] | | (hypertension); CAD | | | | [phone] | | (coronary artery | | | [...] Bass PA-C Service: (none) Author Type: Physician Beekeeper Farmer - Cert ified Filed: 12/28/13 1214 Date of Service: 12/18/13835 Status: Signed Pipeline Operator: John Bass PA-C (Physician Beekeeper Farmer - Certified) Cosigner: Niraj mathews MD at 12/28/13 1303 [facility] Service: Cardiothoracic Surgery Discharge Summary Date of [...] - CELSO; Surgeon: Niraj Celis MD; Location: [facility]; Service: Car dia; Laterality: N/A; Sternotomy 12/09/2013 Procedure: STERNOTOMY; Surgeon: Niraj Celis MD; Location: [facility]; Service: Car diac;; Internal mammary arterial harvest Left 12/09/2013 Procedure: INTERNAL MAMMARY ARTERIAL HARVEST; Surgeon: Niraj Celis MD; Location: [facility]; Service: Cardiac; Laterality: Left; Endovascular vein harvest Right 12/09/2013 Procedure: VEIN - ENDOVASCULAR VEIN HARVEST; Surgeon: Niraj Celis MD; Location: [facility]; Service: Cardiac; Laterality: Right; Allergies [...] up: MD Godfrey Bowen MD [address] [facility] [phone] Call Keep appointment as scheduled. Get Blood work done as scheduled prior to visit Niraj Celis MD [address] [facility] [address] Schedule an appointment as soon as possible for a visit Thomas Bynum DO [address] [facility][note 3] [address] Schedule an appointment as soon as [...] to Get Your Medications You need to picking supervisor these prescriptions. We sent them to a specific pharmacy, so go there to get them. [facility] [facility] [place] - [address] - amiodarone 200 MG tablet - aspirin EC 325 MG EC tablet - metoprolol 25 MG tablet - potassium chloride 10 MEQ tablet - torsemide 10 MG tablet [address] [place] [address] Discharge took 60 minutes, to include final [...] | | | | | | | ([facility]), Bronchitis, | | | | | | | obstructive, chronic | | | | | | | ([facility]) | | | | | | + [...] Date of Service: 12/16/13 1030 Status: Signed Pipeline Operator: Paula Vernon RN (Registered Nurse) Pt and family [...] Ludin Potter RN Service: (none) Author Type: Jig Fitter Filed: 12/16/13921 Date of Service: 12/16/13920 Status: Addendum Pipeline Operator: Ludin Potter RN (Jig Fitter) Related Notes: Original Note by Ludin Potter RN (Jig Fitter) filed at 12/16/13 092 2 Medicare Important message given to pt and signed copy placed on chart. John Heller PA - 12/16/2013 8:23 AM PDTFormatting of this note might be different from yoon sanchez original. Progress Notes by John Bass PA-C at 12/16/13822 Author: John Bass PA-C Service: (none) Author Type: Physician Beekeeper Farmer - Cert ified Filed: 12/16/13824 Date of Service: 12/16/13822 Status: Attested Pipeline Operator: John Bass PA-C (Physician Beekeeper Farmer - Certified) Cosigner: Niraj mathews MD at 12/16/13852 Attestation signed by Niraj Celis MD at 12/16/13852 Patient was seen, examined, labs, x-rays and treatment plan were reviewed. [facility] Service: Cardiothoracic Surgery Progress Note ROOM: [address] [place] [address] Hospital Day: LOS: 8 days Post-Op Day: [...] 12/16/1350 Date of Service: 12/16/13724 Status: Signed Pipeline Operator: Sofia Miller PT (Physical Therapist) 12/16/13724 PT [...] 12/15/132212 Date of Service: 12/15/132211 Status: Signed Pipeline Operator: Caitlin Mejia RN (Registered Nurse) 2211. Pt refused 10 units of levimir. BS 166. Pt is worried her BS will drop too low. Caitlin RN onver yajaira Escobedoaction, Provider Unknown - 12/15/2013 4:25 PM PDT Therapy Progress Note by AIRAM Antunez at 12/15/13 1625 Author: AIRAM Antunez Service: (none) Author Type: Occupational Therapist Filed: 12/15/13 1640 Date of Service: 12/15/13 1625 Status: Signed Pipeline Operator: AIRAM Antunez (Occupational Therapist) 12/15/13 1621 OT Last Visit OT Received On 12/15/13 Reason for Treatment Cardiac Requires OT Follow Up Yes Assistance Required 1 person Freight Manager Needed No Family/Caregiver Present Yes Precautions Cardiac [...] by Maria Victoria Zee MD at 12/15/13 155 Author: Maria Victoria Zee MD Service: Nephrology Author Type: Physician Filed: 12/15/13 3736 Date of Service: 12/15/131550 Status: Signed Pipeline Operator: Maria Victoria Zee MD (Physician) PCP : CANDICE VALDES LOS: 7 days Tamiko Crockett is a 83 y.o. female followed for volume management/renal function monitoring s/ p CABG. Significant PMH of: CAD s/p CABG with Dr. Celis 12/09/13 [place] 09/2013 when admitted to [facility] with peak creatinine of 3 (baseline noted to be 0.9 at that time). (seen by Dr. Monetiro in office following initial evaluation at [facility] 09/2013). HTN DM2 Systolic CHF (historically on losartan, torsemide, digoxin, coreg). Prior Hospitalizations/ED visits: 09/2013 at [facility] 11/2013 at [facility] Interval history: Tamiko Crockett Feels OK today. [...] and completed later after rounds. Dictation software, ProspX, used which may contain error for similar [...] (none) Author Type: Physical Therapist Filed: 12/15/13 8194 Date of Service: 12/15/13 1348 Status: Signed Pipeline Operator: Modesto Medina PT (Physical Therapist) 12/15/13 1348 [...] 12/15/13953 Date of Service: 12/15/13919 Status: Signed Pipeline Operator: Modesto Medina PT (Physical Therapist) 12/15/13919 PT [...] Bass PA-C Service: (none) Author Type: Physician Beekeeper Farmer - Cert ified Filed: 12/15/1342 Date of Service: 12/15/13738 Status: Attested Pipeline Operator: John Bass PA-C (Physician Beekeeper Farmer - Certified) Cosigner: Niraj mathews MD at 12/15/13 1305 Attestation signed by Niraj Celis MD at 12/15/13 1305 Patient was seen, examined, labs, x-rays and treatment plan were reviewed. [facility] Service: Cardiothoracic Surgery Progress Note ROOM: [facility] Hospital Day: LOS: 7 days Post-Op [...] patient does not want to go to [place]. Supportive care Code Status: Full Code The patient has been seen and the plan discussed with the attending provider, Dr. Vimal Bass PA-C 12/15/2013 onversio n Transaction, Provider Unknown - 12/14/2013 10:55 PM PDTFormatting of this note might be di fferent from the original. Nurse Progress Note by Caitlin Mejia RN at 12/14/13 8716 Author: Caitlin Mejia RN Service: (none) Author Type: Registered Nurse Filed: 12/14/13 6477 Date of Service: 12/14/132254 Status: Signed Pipeline Operator: Caitlin Mejia RN (Registered Nurse) 9916. Pt refused 10 units of Levimir. BS is 122. Pt states she is worried that her BS wi ll drop too low if administered. OLGA Tucker onver yajaira Transaction, Provider Unknown - 12/14/2013 3:49 PM PDT Case Management by Vanessa Thomas RN at 12/14/13 3254 Author: Vanessa Thomas RN Service: (none) Author Type: Registered Nurse Filed: 12/14/13 5100 Date of Service: 12/14/13 6173 Status: Signed Pipeline Operator: Vanessa Thomas RN (Registered Nurse) IPR ordered today. Possible d/c on 12/15 to [facility] in [place]. Referrals sent. Id [facility] enough wants to go home, has 4ww. onver yajaira Transaction, Provider Unknown - 12/14/2013 3:15 PM PDT Therapy Progress Note by Ratna Duncan PT at 12/14/13 1515 Author: Ratna Duncan PT Service: (none) Author Type: Physical Therapist Filed: 12/14/13 1521 Date of Service: 12/14/13 1515 Status: Signed Pipeline Operator: Ratna Duncan PT (Physical Therapist) 12/14/13 1515 [...] x2time today & gone to the bathroom [id number] today. Pt. r equesting to not participate [...] Date of Service: 12/14/13 1500 Status: Signed Pipeline Operator: Maria Victoria Zee MD (Physician) PCP : CANDICE VALDES LOS: 6 days Tamiko Crockett is a 83 y.o. female followed for volume management/renal function monitoring s/ p CABG. Significant PMH of: CAD s/p CABG with Dr. Celis 12/09/13 [place] 09/2013 when admitted to [facility] with peak creatinine of 3 (baseline noted to be 0.9 at that time). (seen by Dr. Monteiro in office following initial evaluation at [facility] 09/2013). HTN DM2 Systolic CHF (historically on losartan, torsemide, digoxin, coreg). Prior Hospitalizations/ED visits: 09/2013 at [facility] 11/2013 at [facility] Interval history: Tamiko Crockett Feels OK today. [...] and completed later after rounds. Dictation software, ProspX, used which may contain error for similar sounding words. Personal communication requested for any clarification. Prognosis guarded in view of multiple comorbid illnesses and CAD s/p CABG and severe systol ic dysfunction. Dorota Forbes RD - 0 12/14/2013 11:43 AM PDT Progress Notes by Dorota Steen RD at 12/14/13 1143 Author: Dorota Steen RD Service: (none) Author Type: Assault Amphibious Vehicle Officer Filed: 12/14/13 1145 Date of Service: 12/14/13 1143 Status: Signed Pipeline Operator: Dorota Steen RD (Assault Amphibious Vehicle Officer) FBG 102 this am. Pt is getting 10 units Levemir at hs, 2 units Novolog with meals and an Endotool correction scale. A1c 6.3, in pre-diabetes range, pt is diet controlled. Recommend change to medium dose Novolog correction and d/c mealtime Novolog. Will cont to monitor BGs. Dorota Steen RD, CDE, Inpatient Assault Amphibious Vehicle Officer 12/14/2013 11:45 AM John Heller PA - 12/14/2013 11:05 AM PDT Progress Notes by John Bass PA-C at 12/14/13 1105 Author: John Bass PA-C Service: (none) Author Type: Physician Beekeeper Farmer - Cert ified Filed: 12/14/13 1111 Date of Service: 12/14/13 110 Status: Attested Pipeline Operator: John Bass PA-C (Physician Beekeeper Farmer - Certified) Cosigner: Niraj mathews MD at 12/14/13 1239 Attestation signed by Niraj Celis MD at 12/14/13 1239 Patient was seen, examined, labs, x-rays and treatment plan were reviewed. [facility] Service: Cardiothoracic Surgery Progress Note ROOM: [address] [place] [address] Hospital Day: LOS: 6 days Post-Op Day: [...] Clari Chapin PTA Service: (none) Author Type: Home Attendant Filed: 12/14/13 1038 Date of Service: 12/14/13 09 Status: Signed Pipeline Operator: Clari Chapin PTA (Home Attendant) 12/14/13 0900 PT Last Visit PT Received [...] 12/13/132219 Date of Service: 12/13/132218 Status: Addendum Pipeline Operator: Mary Baugh RN (Registered Nurse) Related Notes: [...] 12/13/131839 Date of Service: 12/13/131837 Status: Signed Pipeline Operator: Jagruti Perdomo RN (Registered Nurse) Pt's HR [...] Date of Service: 12/13/13 1725 Status: Addendum Pipeline Operator: Jagruti Perdomo RN (Registered Nurse) Related Notes: [...] Date of Service: 12/13/13 1315 Status: Signed Pipeline Operator: Modesto Medina PT (Physical Therapist) 12/13/13 1315 [...] Date of Service: 12/13/13 1213 Status: Signed Pipeline Operator: Maria Victoria Zee MD (Physician) PCP : CANDICE VALDES LOS: 5 days Tamiko Crockett is a 83 y.o. female followed for volume management/renal function monitoring s/ p CABG. Significant PMH of: CAD s/p CABG with Dr. Celis 12/09/13 [place] 09/2013 when admitted to [facility] with peak creatinine of 3 (baseline noted to be 0.9 at that time). (seen by Dr. Monteiro in office following initial evaluation at [facility] 09/2013). HTN DM2 Systolic CHF (historically on losartan, torsemide, digoxin, coreg). Prior Hospitalizations/ED visits: 09/2013 at [facility] 11/2013 at [facility] Interval history: Tamiko Crockett Feels OK today. [...] charting completed later after rounds. Dictation software, ProspX, used which may contain error for similar sounding words. Personal communication requested for any clarification. Prognosis guarded in view of multiple comorbid illnesses and CAD s/p CABG and severe systol ic dysfunction. Modseto Chicas PT - 12/13/2013 9:00 AM PDT Therapy Progress Note by Modesto Medina PT at 12/13/13 09 Author: Modesto Medina PT Service: (none) Author Type: Physical Therapist Filed: 12/13/1336 Date of Service: 12/13/13899 Status: Signed Pipeline Operator: Modesto Medina PT (Physical Therapist) 12/13/13 09 [...] Bass PA-C Service: (none) Author Type: Physician Beekeeper Farmer - Cert ified Filed: 12/13/13828 Date of Service: 12/13/13823 Status: Attested Pipeline Operator: John Bass PA-C (Physician Beekeeper Farmer - Certified) Cosigner: Niraj mathews MD at 12/13/13832 Attestation signed by Niraj Celis MD at 12/13/13832 Patient was seen, examined, labs, x-rays and treatment plan were reviewed. [facility] Service: Cardiothoracic Surgery Progress Note ROOM: 4445/44-1 [...] Date of Service: 12/13/13 0643 Status: Signed Pipeline Operator: AIRAM Whalen (Occupational Therapist) 12/13/13 0643 OT Last Visit OT Received On 12/13/13 Reason for Treatment Cardiac Requires OT Follow Up Yes Assistance Required 1 person Freight Manager Needed No Family/Caregiver Present No Precautions Cardiac [...] d/c at this time include: Equipment needs commercial estimator, shower brush Physical deficits impacting functional independence Self-care deficits impacting functional independence SYEDA Whalen, CSRS 12/13/13 Aletha Polk OTR/L - 12/12/2013 1:00 PM PDT Therapy Progress Note by AIRAM Land at 12/12/13 1300 Author: AIRAM Land Service: (none) Author Type: Occupational Therapist Filed: 12/12/13 1353 Date of Service: 12/12/13 1300 Status: Signed Pipeline Operator: AIRAM Land (Occupational Therapist) 12/12/13 1300 OT [...] Notes by Nicole Garcia RN at 12/12/13 1235 Author: Nicole Garcia RN Service: (none) Author Type: Registered Nurse Filed: 12/12/13 1234 Date of Service: 12/12/13 1232 Status: Signed Pipeline Operator: Nicole Garcia, RN (Registered Nurse) Pharmacy called [...] Date of Service: 12/12/13 1202 Status: Signed Pipeline Operator: Jose Hernandez PT (Physical Therapist) 12/12/13 1202 [...] ft. w/ Mary Ann us ing light WESTERN PHILOSOPHY PROFESSOR on w/c. Required Mary Ann for transfer [...] Date of Service: 12/12/13 112 Status: Signed Pipeline Operator: Maria Victoria Zee MD (Physician) PCP : CANDICE VALDES LOS: 4 days Tamiko Crockett is a 83 y.o. female followed for volume management/renal function monitoring s/ p CABG. Significant PMH of: CAD s/p CABG with Dr. Celis 12/09/13 [place] 09/2013 when admitted to [facility] with peak creatinine of 3 (baseline noted to be 0.9 at that time). (seen by Dr. Monteiro in office following initial evaluation at [facility] 09/2013). HTN DM2 Systolic CHF (historically on losartan, torsemide, digoxin, coreg). Prior Hospitalizations/ED visits: 09/2013 at [facility] 11/2013 at [facility] Interval history: Tamiko Crockett indicated 'being more [...] charting completed later after rounds. Dictation software, ProspX, used which may contain error for similar sounding words. Personal communication requested for any clarification. Prognosis guarded in view of multiple comorbid illnesses and CAD s/p CABG and severe systol ic dysfunction. onversion Transactio n, Provider Unknown - 12/12/2013 6:39 AM PDT Therapy Progress Note by Sulaiman Tapia PTA at 12/12/13 0688 Author: Sulaiman Tapia PTA Service: (none) Author Type: Home Attendant Filed: 12/12/13 0641 Date of Service: 12/12/13 0639 Status: Signed Pipeline Operator: Sulaiman Tapia PTA (Home Attendant) 12/12/13 0639 PT Last Visit PT Received [...] (none) Author Type: Physical Therapist Filed: 12/11/13 0980 Date of Service: 12/11/13 1435 Status: Signed Pipeline Operator: Bev Castaneda PT (Physical Therapist) 12/11/13 1435 [...] foot p asses stance foot Assistive Device (WESTERN PHILOSOPHY PROFESSOR on w/c) Modalities Modalities Other therapy Other [...] (none) Author Type: Physical Therapist Filed: 12/11/13 1327 Date of Service: 12/11/13 1130 Status: Signed Pipeline Operator: Jose Hernandez PT (Physical Therapist) 12/11/13 1130 [...] doesn't pass stance foot Assistive Device (w/c WESTERN PHILOSOPHY PROFESSOR) Balance Balance (steady sitting/standing balance. Denies dizziness) [...] Date of Service: 12/11/13 1010 Status: Signed Pipeline Operator: Maria Victoria Zee MD (Physician) PCP : CANDICE VALDES LOS: 3 days Tamiko Crockett is a 83 y.o. female followed for volume management/renal function monitoring s/ p CABG. Significant PMH of: CAD s/p CABG with Dr. Celis 12/09/13 [place] 09/2013 when admitted to [facility] with peak creatinine of 3 (baseline noted to be 0.9 at that time). (seen by Dr. Monteiro in office following initial evaluation at [facility] 09/2013). HTN DM2 Systolic CHF (historically on losartan, torsemide, digoxin, coreg). Prior Hospitalizations/ED visits: 09/2013 at [facility] 11/2013 at [facility] Interval history: Tamiko Crockett indicated 'having a [...] charting completed later after rounds. Dictation software, ProspX, used which may contain error for similar [...] 0953 Date of Service: 12/11/13899 Status: Signed Pipeline Operator: Jose Hernandez PT (Physical Therapist) 12/11/13 09 [...] Bass PA-C Service: (none) Author Type: Physician Beekeeper Farmer - Cert ified Filed: 12/11/13849 Date of Service: 12/11/13846 Status: Attested Pipeline Operator: John Bass PA-C (Physician Beekeeper Farmer - Certified) Cosigner: Nirja mathews MD at 12/11/13900 Attestation signed by Niraj Celis MD at 12/11/13900 Patient was seen, examined, labs, x-rays and treatment plan were reviewed. [facility] Service: Cardiothoracic Surgery Progress Note ROOM: Hospital [...] Date of Service: 12/10/13 1515 Status: Signed Pipeline Operator: Jose Hernandez PT (Physical Therapist) 12/10/13 1515 [...] Date of Service: 12/10/13 1207 Status: Signed Pipeline Operator: Isra Villasenor RN (Registered Nurse) Twice today [...] Date of Service: 12/10/13 1110 Status: Signed Pipeline Operator: Jose Hernandez, PT (Physical Therapist) 12/10/13 1110 [...] pending medical course) Prior Function Level of [place] Independent with functional mobility;Independent with ADLs;Independe nt [...] (none) Author Type: Occupational Therapist Filed: 12/10/13 1111 Date of Service: 12/10/13 1040 Status: Signed Pipeline Operator: AIRAM Land (Occupational Therapist) 12/10/13 1040 Precautions [...] return to home Prior Function Level of [place] Independent with functional mobility;Independent with ADLs;Modified independent [...] Bass PA-C Service: (none) Author Type: Physician Beekeeper Farmer - Cert ified Filed: 12/10/1355 Date of Service: 12/10/13733 Status: Attested Pipeline Operator: Jonh Bass PA-C (Physician Beekeeper Farmer - Certified) Cosigner: Niraj mathews MD at 12/10/13858 Attestation signed by Niraj Celis MD at 12/10/13858 Patient was seen, examined, labs, x-rays and treatment plan were reviewed. [facility] Service: Cardiothoracic Surgery Progress Note ROOM: Hospital [...] - Wean NGUYỄN as tolerated - D/C [place] - D/C all narcotic pain medications - [...] Progress Notes by Erica Marin at 12/09/13 1059 Author: Erica Marin Service: (none) Author Type: Filed: 12/09/13 5392 Date of Service: 12/09/136 Status: Signed Pipeline Operator: Erica Marin () responded to [employer]. Family standing outside room. Daughter asked if I could go to family waiting room and pass on info. Several family members thought a adventure guide would be n eeded. Aftertalking to daughter it was determined that pt has been given sacraments and chap santi services would be sufficient when/if needed. I assured them a mail opener would be availab le. Chaplain Erica Marin onver yajaira Transaction, Provider Unknown - 12/09/2013 1:22 PM PDT Progress Notes by Rosa Oakley RPH at 12/09/13 1322 Author: Rosa Oakley RPH Service: (none) Author Type: Pharmacist Filed: 12/09/13 1322 Date of Service: 12/09/13 1322 Status: Signed Pipeline Operator: Rosa Oakley RPH (Pharmacist) Renal Dosing Monitoring: [...] Author: Sudha Keller Service: (none) Author Type: Road Machine Runner Filed: 12/09/13 1021 Date of Service: 12/09/13 1004 Status: Signed Pipeline Operator: Sudha Keller () Met with Pt and [...] 12/09/13404 Date of Service: 12/09/13403 Status: Signed Pipeline Operator: Lety Armijo RN (Registered Nurse) APTT is 43 and therapeutic. No titration to Heparin needed. onver yajaira Transaction, Provider Unknown - 12/09/2013 1:55 AM PDT Progress Notes by Eitan Garcia RPH at 12/09/13154 Author: Eitan Garcia RPH Service: (none) Author Type: Pharmacist Filed: 12/09/13154 Date of Service: 12/09/13154 Status: Signed Pipeline Operator: Eitan Garcia RPH (Pharmacist) Note ccl 32.7ml/min meds reviewed pharmacy will follow rdc 0155 onver yajaira Transaction, Provider Unknown - 12/08/2013 9:15 PM PDT Progress Notes by Lety Armijo RN at 12/08/132114 Author: Lety Armijo RN Service: (none) Author Type: Registered Nurse Filed: 12/08/132241 Date of Service: 12/08/132114 Status: Signed Pipeline Operator: Lety Armijo RN (Registered Nurse) APTT 44 and is therapeutic. No changes to Heparin gtt. Next APTT is 0300. VSS. Pt denies ch est pain. All pre-op cardiac teaching has been done. Pt and family deny questions at this ti me. Will continue to monitor closely. onver yajaira Transaction, Provider Unknown - 12/08/2013 7:15 PM PDT Progress Notes by Sudha Keller at 12/08/135 Author: Sudha Keller Service: (none) Author Type: Filed: 12/08/131941 Date of Service: 12/08/131914 Status: Signed Pipeline Operator: Sudha Keller () Met Pt with two of her eight children, Janice and Rivka ([phone]) were at the bedside as she left for ultrasound from ER. Pts Alfredo is also here. I gave the daughters the basic outline of surgery day; they were glad to here that there would be two reports given during the surgery. They are a Sikhism family and have asked for anointing of the sick for Tamiko. I will make those arrangements if possible. Chaplain Sudha Keller onver yajaira Ponce, Provider Unknown - 12/08/2013 7:10 PM PDT Case Management by JAIMEE Rodriguez at 12/08/131909 Author: JAIMEE Rodriguez Service: (none) Author Type: Operations Staff Specialist Security Filed: 12/08/131912 Date of Service: 12/08/131909 Status: Addendum Pipeline Operator: JAIMEE Rodriguez (Operations Staff Specialist Security) Related Notes: Original Note by JAIMEE Rodriguez (Operations Staff Specialist Security) filed at 12/08/13191112/08/131899 Discharge Planning Evaluation Admitting Diagnosis NSTEMI Readmission No Living Arrangements Spouse/significant other (Alfredo Crockett) Support Systems Children (Geno Kendall [phone]) Type of Residence Private residence House type House-1 story Steps to enter 7 Independent with ADL's Yes (in the last three months, needed assistance) Independent with Mobility Yes (owns a 4WW) Home Care Services No Mental Status Oriented Resources Transportation issues No Prescription Plan Yes (Medicare Part D) Name of Pharmacy [facility] in [place] Previous home health equipment No Vascular access device No Ostomy/Drains/Appliances Yes (Defibrillator Vest) Anticipated Disposition Facility Type alf facility;Other (Comment) (if well enought, she can return home) [facility] Facility Other (comment) ([facility], [place]) Met with: patient, her and daughter and discussed discharge planning, Pt is a 83 y. o., female Patient's PCP is: CANDICE VALDES Patient's insurance: Medicare IP-OP and [employer] Coverage concerns: No current concerns Medication coverage/concerns: Rx coverage [facility] Delivery: No Community resources utilized / needed: TBD Assistance in transportation: Spouse and/or family member Identification of any specific education / training: TBD Barriers to Discharge / Alternative housing needed: could be considering a SNF in [place] . 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 in this encounter Plan of Treatment +--------+ + + + + | Date | Type | Specialty | Care Team | Description | +--------+ + + + + | 03/09/ | Office | Cardiology | [place], | | 2018 | Visit | | MD Lucila WIGGINS | | | | | | [place] | | | | | | [address] | | | | | | | [...] [place] | | | | | | [address] | | | | | | | [...] | | | Fingerstick | performed at [facility];[address] | | LAB | | | | [address];[place], [place] | | | | | | [address] | | | | + + + [...] EXTERNAL | | | | performed at [facility], [address] | | LAB | | | | [address], | | | | | | [place] [address] | | | | + + [...] | | | | | [place] [address] | | | | + + + + + + | K | 3.9Comment: Testing | 3.5 - 4.9 | EXTERNAL | | | | performed at [facility], [address] | mmol/L | LAB | | | | [address], | | | | | | [place] [address] | | | | + + + + + + | Cl | 101Comment: Testing | 99 - 109 mmol/L | EXTERNAL | | | | performed at [facility], [address] | | LAB | | | | [address], | | | | | | [place] [address] | | | | + + + [...] | | | | | [place] [address] | | | | + + + + + + | Glucose, | 155 (H)Comment: Testing | 65 - 99 mg/dL | EXTERNAL | | | Fasting | performed at [facility], [address] | | LAB | | | | [address], | | | | | | [place] [address] | | | | + + + + + + | BUN | 16Comment: Testing | 8 - 25 mg/dL | EXTERNAL | | | | performed at [facility], [address] | | LAB | | | | [address], | | | | | | [place] [address] | | | | + + + + + + | Creatinine | 1.00Comment: Testing | 0.50 - 1.00 | EXTERNAL | | | | performed at [facility], [address] | mg/dL | LAB | | | | [address], | | | | | | [place] [address] | | | | + + + + + + | BUN/Creatin | 16Comment: Testing | | EXTERNAL | | | ine Ratio | performed at [facility], [address] | | LAB | | | | [address], | | | | | | [place] [address] | | | | + + + + + + | Calcium | 8.4 (L)Comment: Testing | 8.5 - 10.2 | EXTERNAL | | | | performed at [facility], [address] | mg/dL | LAB | | | | [address], | | | | | | [place] [address] | | | | + + + [...] | | | | | [place] [address] | | | | + + + [...] | | | Fingerstick | performed at [facility];[address] | | LAB | | | | [address];[place], [place] | | | | | | [address] | | | | + + + [...] | | | Fingerstick | performed at [facility];[address] | | LAB | | | | [address];[place], [place] | | | | | | [address] | | | | + + + [...] | | | Fingerstick | performed at [facility];[address] | | LAB | | | | [address];[place], [place] | | | | | | [address] | | | | + + + [...] | | | Fingerstick | performed at [facility];[address] | | LAB | | | | [address];[place], [place] | | | | | | [address] | | | | + + + [...] | | | | | [place] [address] | | | | + + + + + + | K | 3.9Comment: Testing | 3.5 - 4.9 | EXTERNAL | | | | performed at [facility], [address] | mmol/L | LAB | | | | [address], | | | | | | [place] [address] | | | | + + + + + + | Cl | 102Comment: Testing | 99 - 109 mmol/L | EXTERNAL | | | | performed at [facility], [address] | | LAB | | | | [address], | | | | | | [place], [place] [address] | | | | + + + + + + | CO2 | 26Comment: Testing | 23 - 32 mmol/L | EXTERNAL | | | | performed at [facility], [address] | | LAB | | | | [address], | | | | | | [place] [address] | | | | + + + + + + | Anion Gap | 10Comment: Testing | 5 - 20 mmol/L | EXTERNAL | | | | performed at [facility], [address] | | LAB | | | | [address], | | | | | | [place] [address] | | | | + + + + + + | Glucose, | 152 (H)Comment: Testing | 65 - 99 mg/dL | EXTERNAL | | | Fasting | performed at [facility], [address] | | LAB | | | | [address], | | | | | | [place] [address] | | | | + + + + + + | BUN | 16Comment: Testing | 8 - 25 mg/dL | EXTERNAL | | | | performed at [facility], [address] | | LAB | | | | [address], | | | | | | [place] [address] | | | | + + + + + + | Creatinine | 0.82Comment: Testing | 0.50 - 1.00 | EXTERNAL | | | | performed at [facility], [address] | mg/dL | LAB | | | | [address], | | | | | | [place] [address] | | | | + + + + + + | BUN/Creatin | 20Comment: Testing | | EXTERNAL | | | ine Ratio | performed at [facility], [address] | | LAB | | | | [address], | | | | | | [place] [address] | | | | + + + + + + | Calcium | 8.4 (L)Comment: Testing | 8.5 - 10.2 | EXTERNAL | | | | performed at [facility], [address] | mg/dL | LAB | | | | [address], | | | | | | [place] [address] | | | | + + + [...] W | | | | | | [address] [facility] [address], | | | | | | [place] [address] | | | | + + + [...] | | | Fingerstick | performed at [facility];[address] | | LAB | | | | [address];[place], [place] | | | | | | [address] | | | | + + + [...] | | | Fingerstick | performed at [facility];[address] | | LAB | | | | [address];[place], [place] | | | | | | [address] | | | | + + + [...] | | | Fingerstick | performed at [facility];[address] | | LAB | | | | [place] | | | | | | [address] | | | | + + + [...] EXTERNAL | | | | performed at [facility], [address] | | LAB | | | | [address], | | | | | | [place] [address] | | | | + + + + + + | RBC, UA | 26-50Comment: Testing | 0 - 5 /hpf | EXTERNAL | | | | performed at [facility], [address] | | LAB | | | | [address], | | | | | | [place] [address] | | | | + + + + + + | Epithelial | 6-10Comment: Testing | /lpf | EXTERNAL | | | Cells | performed at [facility], [address] | | LAB | | | | [address], | | | | | | [place] [address] | | | | + + + + + + | Bacteria, | NONE SEENComment: | | EXTERNAL | | | UA | Testing performed at | | LAB | | | | [facility], [address] | | | | | | [place] | | | | | | [address] | | | | + + + + + + | HYALINE | 0-2Comment: Testing | | EXTERNAL | | | LILIAM UA | performed at [facility], [address] | | LAB | | | | [address], | | | | | | [place] [address] | | | | + + + [...] | | | | | [place] [address] | | | | + + + + + + | Clarity | CLEARComment: Testing | | EXTERNAL | | | | performed at [facility], [address] | | LAB | | | | [address], | | | | | | [place] [address] | | | | + + + + + + | Specific | 1.006Comment: Testing | 1.002 - 1.030 | EXTERNAL | | | [place] | performed at [facility], [address] | | LAB | | | | [address], | | | | | | [place] [address] | | | | + + + + + + | Leukocyte | NEGATIVEComment: | | EXTERNAL | | | Esterase, | Testing performed at | | LAB | | | Urine | [facility], [address] | | | | | | [place] | | | | | | [address] | | | | + + + + + + | Nitrite, | NEGATIVEComment: Testing | | EXTERNAL | | | Urine | performed at [facility], [address] | | LAB | | | | [address], | | | | | | [place] [address] | | | | + + + + + + | Urobilinoge | 0.2Comment: Testing | mg/dL | EXTERNAL | | | n, Urine | performed at [facility], [address] | | LAB | | | | [address], | | | | | | [place] [address] | | | | + + + + + + | Protein, | NEGATIVEComment: Testing | mg/dL | EXTERNAL | | | Urine | performed at [facility], [address] | | LAB | | | | [address], | | | | | | [place] [address] | | | | + + + + + + | pH, Urine | 6.0Comment: Testing | 5.0 - 8.0 | EXTERNAL | | | | performed at [facility], [address] | | LAB | | | | [address], | | | | | | [place] [address] | | | | + + + + + + | Blood, | LARGE (A)Comment: | | EXTERNAL | | | Urine | Testing performed at | | LAB | | | | [facility], [address] | | | | | | [place] | | | | | | [address] | | | | + + + + + + | Ketones | NEGATIVEComment: Testing | mg/dL | EXTERNAL | | | | performed at [facility], [address] | | LAB | | | | [address], | | | | | | [place] [address] | | | | + + + + + + | Bilirubin, | NEGATIVEComment: Testing | | EXTERNAL | | | Urine | performed at [facility], [address] | | LAB | | | | [address], | | | | | | [place] [address] | | | | + + + + + + | Glucose, | NEGATIVEComment: Testing | mg/dL | EXTERNAL | | | Urine | performed at [facility], [address] | | LAB | | | | [address], | | | | | | [place] [address] | | | | + + + [...] | | | Fingerstick | performed at [facility] | | LAB | | | | [address] | | | | | | [address] | | | | + + + [...] | | | | | [place] [address] | | | | + + + + + + | K | 4.0Comment: Testing | 3.5 - 4.9 | EXTERNAL | | | | performed at [facility], [address] | mmol/L | LAB | | | | [address], | | | | | | [place] [address] | | | | + + + + + + | Cl | 105Comment: Testing | 99 - 109 mmol/L | EXTERNAL | | | | performed at [facility], [address] | | LAB | | | | [address], | | | | | | [place] [address] | | | | + + + + + + | CO2 | 28Comment: Testing | 23 - 32 mmol/L | EXTERNAL | | | | performed at [facility], [address] | | LAB | | | | [address], | | | | | | [place] [address] | | | | + + + + + + | Anion Gap | 10Comment: Testing | 5 - 20 mmol/L | EXTERNAL | | | | performed at [facility], [address] | | LAB | | | | [address], | | | | | | [place] [address] | | | | + + + + + + | Glucose, | 102 (H)Comment: Testing | 65 - 99 mg/dL | EXTERNAL | | | Fasting | performed at [facility], [address] | | LAB | | | | [address], | | | | | | [place] [address] | | | | + + + + + + | BUN | 19Comment: Testing | 8 - 25 mg/dL | EXTERNAL | | | | performed at [facility], [address] | | LAB | | | | [address], | | | | | | [place] [address] | | | | + + + + + + | Creatinine | 0.81Comment: Testing | 0.50 - 1.00 | EXTERNAL | | | | performed at [facility], [address] | mg/dL | LAB | | | | [address], | | | | | | [place] [address] | | | | + + + + + + | BUN/Creatin | 23Comment: Testing | | EXTERNAL | | | ine Ratio | performed at [facility], [address] | | LAB | | | | [address], | | | | | | [place] [address] | | | | + + + + + + | Calcium | 8.5Comment: Testing | 8.5 - 10.2 | EXTERNAL | | | | performed at [facility], [address] | mg/dL | LAB | | | | [address], | | | | | | [place] [address] | | | | + + + [...] | | | | | | at [facility], [address] | | | | | | [address], | | | | | | [place] [address] | | | | + + + [...] | | | Fingerstick | performed at [facility];[address] | | LAB | | | | [place] | | | | | | [address] | | | | + + + [...] | | | Fingerstick | performed at [facility];[address] | | LAB | | | | [address];[place] | | | | | | [address] | | | | + + + [...] | | | Fingerstick | performed at [facility];[address] | | LAB | | | | [address];[place], [place] | | | | | | [address] | | | | + + + [...] % | | | collapse: 56.93 % Patient Transporter: DAIJA Authenticated by: Thomas | | | [...] (A-L): 18.14 ml/m2LAAs A2C: 14.02 | | ij9WPHKD A-L A2C: 34.59 mlLALs A2C: 4.82 cmLAAs A4C: 12.57 oe9NGVRQ A-L A4C: | | 29.46 mlLALs A4C: 4.55 cmIVC diameter: 1.76 cmIVC collapse: 0.72 cmIVC % collapse: | | 56.93 % Patient Transporter: ANGELESWAuthenticated by: Thomas Bynum [facility] [...] % collapse: 56.93 % | | | |Patient Transporter: KVW | |Authenticated by: Thomas Bynum MD [...] Hawkins Conversion - 11/26/2018 3:41 PM PDT TAMIKO [...] | | | Fingerstick | performed at [facility];[address] | | LAB | | | | [address];[place], [place] | | | | | | [address] | | | | + + + [...] EXTERNAL | | | | performed at [facility];[address] | | LAB | | | | [address];[place], [place] | | | | | | [address] | | | | + + + + + + | RED CELL | 2.80 (L)Comment: Testing | 3.70 - 5.10 | EXTERNAL | | | COUNT | performed at [facility];[address] | M/uL | LAB | | | | [address];[place] | | | | | | [address] | | | | + + + + + + | Hgb | 9.1 (L)Comment: Testing | 11.3 - 15.5 | EXTERNAL | | | | performed at [facility];[address] | g/dL | LAB | | | | [address];[place] | | | | | | [address] | | | | + + + + + + | Hematocrit, | 26.0 (L)Comment: Testing | 34.0 - 46.0 % | EXTERNAL | | | POC | performed at [facility];[address] | | LAB | | | | [address];[place] | | | | | | [address] | | | | + + + + + + | MCV | 92.8Comment: Testing | 80.0 - 100.0 fl | EXTERNAL | | | | performed at [facility];[address] | | LAB | | | | [address];[place] | | | | | | [address] | | | | + + + + + + | MCH | 32.5Comment: Testing | 27.0 - 34.0 pg | EXTERNAL | | | | performed at [facility];[address] | | LAB | | | | [address];[place] | | | | | | [address] | | | | + + + + + + | MCHC | 35.0Comment: Testing | 32.0 - 35.5 | EXTERNAL | | | | performed at [facility];[address] | g/dL | LAB | | | | [address];[place] | | | | | | [address] | | | | + + + + + + | RDW-CV | 44.6Comment: Testing | 37 - 53 fl | EXTERNAL | | | | performed at [facility];[address] | | LAB | | | | [address];[place] | | | | | | [address] | | | | + + + + + + | Platelet | 130 (L)Comment: Testing | 150 - 400 K/uL | EXTERNAL | | | Count | performed at [facility];[address] | | LAB | | | Plasma | [address];[place] | | | | | | [address] | | | | + + + + + + | MPV | 8.0Comment: Testing | fl | EXTERNAL | | | | performed at [facility];[address] | | LAB | | | | [address];[place] | | | | | | [address] | | | | + + + [...] EXTERNAL | | | | performed at [facility] | | LAB | | | | [facility];[place] | | | | | | [address] | | | | + + + [...] EXTERNAL | | | | performed at [facility];[address] | mmol/L | LAB | | | | [address];[place] | | | | | | [address] | | | | + + + + + + | K | 4.0Comment: Testing | 3.5 - 4.9 | EXTERNAL | | | | performed at [facility];[address] | mmol/L | LAB | | | | [address];[place] | | | | | | [address] | | | | + + + + + + | Cl | 107Comment: Testing | 99 - 109 mmol/L | EXTERNAL | | | | performed at [facility];[address] | | LAB | | | | [address];[place] | | | | | | [address] | | | | + + + + + + | CO2 | 26Comment: Testing | 23 - 32 mmol/L | EXTERNAL | | | | performed at [facility];[address] | | LAB | | | | [address];[place] | | | | | | [address] | | | | + + + + + + | Anion Gap | 11Comment: Testing | 5 - 20 mmol/L | EXTERNAL | | | | performed at [facility];[address] | | LAB | | | | [address];[place] | | | | | | [address] | | | | + + + + + + | Glucose, | 72Comment: Testing | 65 - 99 mg/dL | EXTERNAL | | | Fasting | performed at [facility];[address] | | LAB | | | | [address];[place] | | | | | | [address] | | | | + + + + + + | BUN | 16Comment: Testing | 8 - 25 mg/dL | EXTERNAL | | | | performed at [facility];[address] | | LAB | | | | [address];[place] | | | | | | [address] | | | | + + + + + + | Creatinine | 0.82Comment: Testing | 0.50 - 1.00 | EXTERNAL | | | | performed at [facility];[address] | mg/dL | LAB | | | | [address];[place] | | | | | | [address] | | | | + + + + + + | BUN/Creatin | 20Comment: Testing | | EXTERNAL | | | ine Ratio | performed at [facility];[address] | | LAB | | | | [address];[place] | | | | | | [address] | | | | + + + + + + | Calcium | 7.8 (L)Comment: Testing | 8.5 - 10.2 | EXTERNAL | | | | performed at [facility];[address] | mg/dL | LAB | | | | [address];[place] | | | | | | [address] | | | | + + + [...] | | | | | | at [facility];[address] [place] [address] | | | | | | Blvd;[place] [address] | | | | + + + [...] | | | Fingerstick | performed at [facility];[address] | | LAB | | | | [address] [place] | | | | | | [address] | | | | + + + [...] EXTERNAL | | | | performed at [facility];[address] | mmol/L | LAB | | | | [address];[place], [place] | | | | | | [address] | | | | + + + [...] | | | Fingerstick | performed at [facility];[address] | | LAB | | | | [address];[place], [place] | | | | | | [address] | | | | + + + [...] | | | Fingerstick | performed at [facility];[address] | | LAB | | | | [address];[place], [place] | | | | | | [address] | | | | + + + [...] | | | Fingerstick | performed at [facility];[address] | | LAB | | | | [address];[place] | | | | | | [address] | | | | + + + [...] EXTERNAL | | | | performed at [facility], [address] | | LAB | | | | [address], | | | | | | [place] [address] | | | | + + + + + + | RED CELL | 2.65 (L)Comment: Testing | 3.70 - 5.10 | EXTERNAL | | | COUNT | performed at [facility], [address] | M/uL | LAB | | | | [address], | | | | | | [place] [address] | | | | + + + + + + | Hgb | 8.2 (L)Comment: Testing | 11.3 - 15.5 | EXTERNAL | | | | performed at [facility], [address] | g/dL | LAB | | | | [address], | | | | | | [place] [address] | | | | + + + + + + | Hematocrit, | 25.3 (L)Comment: Testing | 34.0 - 46.0 % | EXTERNAL | | | POC | performed at [facility], [address] | | LAB | | | | [address], | | | | | | [place] [address] | | | | + + + + + + | MCV | 95.6Comment: Testing | 80.0 - 100.0 fl | EXTERNAL | | | | performed at [facility], [address] | | LAB | | | | [address], | | | | | | [place] [address] | | | | + + + + + + | MCH | 30.8Comment: Testing | 27.0 - 34.0 pg | EXTERNAL | | | | performed at [facility], [address] | | LAB | | | [address], | | | | | | [place] [address] | | | | + + + + + + | MCHC | 32.2Comment: Testing | 32.0 - 35.5 | EXTERNAL | | | | performed at [facility], [address] | g/dL | LAB | | | | [address], | | | | | | [place], [place] [address] | | | | + + + + + + | RDW-CV | 45.5Comment: Testing | 37 - 53 fl | EXTERNAL | | | | performed at [facility], [address] | | LAB | | | | [address], | | | | | | [place] [address] | | | | + + + + + + | Platelet | 88 (L)Comment: Testing | 150 - 400 K/uL | EXTERNAL | | | Count | performed at [facility], [address] | | LAB | | | Plasma | [address], | | | | | | [place] [address] | | | | + + + + + + | MPV | 8.9Comment: Testing | fl | EXTERNAL | | | | performed at [facility], [address] | | LAB | | | | [address], | | | | | | [place] [address] | | | | + + + + + + | Differentia | AUTOMATEDComment: | | EXTERNAL | | | l Type | Testing performed at | | LAB | | | | [facility], [address] | | | | | | [place] | | | | | | [address] | | | | + + + + + + | % Segmented | 64.9Comment: Testing | % | EXTERNAL | | | | performed at [facility], [address] | | LAB | | | Neutrophils | [address], | | | | | | [place] [address] | | | | + + + + + + | % | 18.6Comment: Testing | % | EXTERNAL | | | Lymphocytes | performed at [facility], [address] | | LAB | | | | [address], | | | | | | [place] [address] | | | | + + + + + + | % Monocytes | 12.8Comment: Testing | % | EXTERNAL | | | | performed at [facility], [address] | | LAB | | | | [address], | | | | | | [place] [address] | | | | + + + + + + | % | 3.3Comment: Testing | % | EXTERNAL | | | Eosinophils | performed at [facility], [address] | | LAB | | | | [address], | | | | | | [place] [address] | | | | + + + + + + | % Basophils | 0.4Comment: Testing | % | EXTERNAL | | | | performed at [facility], [address] | | LAB | | | [address], | | | | | | [place] [address] | | | | + + + + + + | Absolute | 8.1 (H)Comment: Testing | 1.9 - 7.4 K/uL | EXTERNAL | | | Segmented | performed at [facility], [address] | | LAB | | | Neutrophils | [address], | | | | | | [place] [address] | | | | + + + + + + | Absolute | 2.3Comment: Testing | 1.0 - 3.9 K/uL | EXTERNAL | | | Lymphocytes | performed at [facility], [address] | | LAB | | | | [address], | | | | | | [place] [address] | | | | + + + + + + | Absolute | 1.6 (H)Comment: Testing | 0 - 0.8 K/uL | EXTERNAL | | | Monocytes | performed at [facility], [address] | | LAB | | | | [address], | | | | | | [place] [address] | | | | + + + + + + | Absolute | 0.4Comment: Testing | 0 - 0.5 K/uL | EXTERNAL | | | Eosinophils | performed at [facility], [address] | | LAB | | | | [address], | | | | | | [place] [address] | | | | + + + + + + | Absolute | 0.1Comment: Testing | 0 - 0.1 K/uL | EXTERNAL | | | Basophils | performed at [facility], [address] | | LAB | | | | [address], | | | | | | [place] [address] | | | | + + + [...] EXTERNAL | | | | performed at [facility], [address] | | LAB | | | | [address], | | | | | | [place] [address] | | | | + + + [...] | | | | | [place] [address] | | | | + + + + + + | K | 4.3Comment: Testing | 3.5 - 4.9 | EXTERNAL | | | | performed at [facility], [address] | mmol/L | LAB | | | | [address], | | | | | | [place] [address] | | | | + + + + + + | Cl | 109Comment: Testing | 99 - 109 mmol/L | EXTERNAL | | | | performed at [facility], [address] | | LAB | | | | [address], | | | | | | [place] [address] | | | | + + + + + + | CO2 | 24Comment: Testing | 23 - 32 mmol/L | EXTERNAL | | | | performed at [facility], [address] | | LAB | | | | [address], | | | | | | [place] [address] | | | | + + + + + + | Anion Gap | 7Comment: Testing | 5 - 20 mmol/L | EXTERNAL | | | | performed at [facility], [address] | | LAB | | | | [address], | | | | | | [place] [address] | | | | + + + + + + | Glucose, | 65Comment: Testing | 65 - 99 mg/dL | EXTERNAL | | | Fasting | performed at [facility], [address] | | LAB | | | | [address], | | | | | | [place] [address] | | | | + + + + + + | BUN | 12Comment: Testing | 8 - 25 mg/dL | EXTERNAL | | | | performed at [facility], [address] | | LAB | | | | [address], | | | | | | [place] [address] | | | | + + + + + + | Creatinine | 0.80Comment: Testing | 0.50 - 1.00 | EXTERNAL | | | | performed at [facility], [address] | mg/dL | LAB | | | | [address], | | | | | | [place] [address] | | | | + + + + + + | BUN/Creatin | 15Comment: Testing | | EXTERNAL | | | ine Ratio | performed at [facility], [address] | | LAB | | | | [address], | | | | | | [place] [address] | | | | + + + + + + | Calcium | 8.2 (L)Comment: Testing | 8.5 - 10.2 | EXTERNAL | | | | performed at [facility], [address] | mg/dL | LAB | | | | [address], | | | | | | [place] [address] | | | | + + + [...] | | | | | | [place] [address] | | | | + + + [...] | | | Fingerstick | performed at [facility];[address] | | LAB | | | | [address];[place] | | | | | | [address] | | | | + + + [...] | | | Fingerstick | performed at [facility];[address] | | LAB | | | | [address];[place], [place] | | | | | | [address] | | | | + + + [...] | | | Fingerstick | performed at [facility];[address] | | LAB | | | | [address];[place] | | | | | | [address] | | | | + + + [...] | | | Fingerstick | performed at [facility];[address] | | LAB | | | | [address];[place], [place] | | | | | | [address] | | | | + + + [...] | 1. Status post removal of the [place]-Puja catheter. Remaining tubes | | | and [...] the chest | | | FINDINGS: The [place]Puja catheter is no longer present. The remaining [...] Conversion - 11/26/2018 3:41 PM PDT TAMIKO [id number] yearsXR CHEST 1 | | VIEW12/11/2013 6:08 AM INDICATION: Chest pain, tube and line placement COMPARISON: | | 12/10/13 TECHNIQUE: Chest 1 view, AP view of the chest FINDINGS: The Shutesbury-Puja catheter | | is no longer present. [...] IMPRESSION: 1. Status post removal of the Shutesbury-Puja catheter. Remaining | | tubes and lines are stable.2. Residual small left pleural effusion or pleural | | thickening and patchy atelectasis. Electronically signed by Omid Hill MD on | | 12/11/2013 6:58 AM | |FINDINGS: The Shutesbury-Puja catheter is no longer present. The remaining [...] | |1. Status post removal of the Shutesbury-Puja catheter. Remaining tubes and lines are stable. [...] EXTERNAL | | | | performed at [facility], [address] | | LAB | | | | [address], | | | | | | [place] [address] | | | | + + + + + + | RED CELL | 2.60 (L)Comment: Testing | 3.70 - 5.10 | EXTERNAL | | | COUNT | performed at [facility], [address] | M/uL | LAB | | | | [address], | | | | | | [place] [address] | | | | + + + + + + | Hgb | 8.1 (L)Comment: Testing | 11.3 - 15.5 | EXTERNAL | | | | performed at [facility], [address] | g/dL | LAB | | | | [address], | | | | | | [place] [address] | | | | + + + + + + | Hematocrit, | 25.1 (L)Comment: Testing | 34.0 - 46.0 % | EXTERNAL | | | POC | performed at [facility], [address] | | LAB | | | | [address], | | | | | | [place] [address] | | | | + + + + + + | MCV | 96.3Comment: Testing | 80.0 - 100.0 fl | EXTERNAL | | | | performed at [facility], [address] | | LAB | | | | [address], | | | | | | [place] [address] | | | | + + + + + + | MCH | 31.0Comment: Testing | 27.0 - 34.0 pg | EXTERNAL | | | | performed at [facility], [address] | | LAB | | | | [address], | | | | | | [place] [address] | | | | + + + + + + | MCHC | 32.2Comment: Testing | 32.0 - 35.5 | EXTERNAL | | | | performed at [facility], [address] | g/dL | LAB | | | | [address], | | | | | | [place] [address] | | | | + + + + + + | RDW-CV | 45.9Comment: Testing | 37 - 53 fl | EXTERNAL | | | | performed at [facility], [address] | | LAB | | | | [address], | | | | | | [place] [address] | | | | + + + + + + | Platelet | 80 (L)Comment: Testing | 150 - 400 K/uL | EXTERNAL | | | Count | performed at [facility], [address] | | LAB | | | Plasma | [address], | | | | | | [place] [address] | | | | + + + + + + | MPV | 8.9Comment: Testing | fl | EXTERNAL | | | | performed at [facility], [address] | | LAB | | | | [address], | | | | | | [place] [address] | | | | + + + + + + | Differentia | AUTOMATEDComment: | | EXTERNAL | | | l Type | Testing performed at | | LAB | | | | [facility], [address] | | | | | | [place] | | | | | | [address] | | | | + + + + + + | % Segmented | 62.9Comment: Testing | % | EXTERNAL | | | | performed at [facility], [address] | | LAB | | | Neutrophils | [address], | | | | | | [place] [address] | | | | + + + + + + | % | 19.1Comment: Testing | % | EXTERNAL | | | Lymphocytes | performed at [facility], [address] | | LAB | | | | [address], | | | | | | [place] [address] | | | | + + + + + + | % Monocytes | 14.2Comment: Testing | % | EXTERNAL | | | | performed at [facility], [address] | | LAB | | | | [address], | | | | | | [place] [address] | | | | + + + + + + | % | 3.4Comment: Testing | % | EXTERNAL | | | Eosinophils | performed at [facility], [address] | | LAB | | | | [address], | | | | | | [place] [address] | | | | + + + + + + | % Basophils | 0.4Comment: Testing | % | EXTERNAL | | | | performed at [facility], [address] | | LAB | | | | [address], | | | | | | [place] [address] | | | | + + + + + + | Absolute | 7.5 (H)Comment: Testing | 1.9 - 7.4 K/uL | EXTERNAL | | | Segmented | performed at [facility], [address] | | LAB | | | Neutrophils | [address], | | | | | | [place] [address] | | | | + + + + + + | Absolute | 2.3Comment: Testing | 1.0 - 3.9 K/uL | EXTERNAL | | | Lymphocytes | performed at [facility], [address] | | LAB | | | | [address], | | | | | | [place] [address] | | | | + + + + + + | Absolute | 1.7 (H)Comment: Testing | 0 - 0.8 K/uL | EXTERNAL | | | Monocytes | performed at [facility], [address] | | LAB | | | | [address], | | | | | | [place] [address] | | | | + + + + + + | Absolute | 0.4Comment: Testing | 0 - 0.5 K/uL | EXTERNAL | | | Eosinophils | performed at [facility], [address] | | LAB | | | | [address], | | | | | | [place] [address] | | | | + + + + + + | Absolute | 0.1Comment: Testing | 0 - 0.1 K/uL | EXTERNAL | | | Basophils | performed at [facility], [address] | | LAB | | | | [address], | | | | | | [place] [address] | | | | + + + [...] EXTERNAL | | | | performed at [facility], [address] | | LAB | | | | [address], | | | | | | [place] [address] | | | | + + + [...] | | | | | [place] [address] | | | | + + + + + + | K | 4.7Comment: Testing | 3.5 - 4.9 | EXTERNAL | | | | performed at [facility], [address] | mmol/L | LAB | | | | [address], | | | | | | [place] [address] | | | | + + + + + + | Cl | 111 (H)Comment: Testing | 99 - 109 mmol/L | EXTERNAL | | | | performed at [facility], [address] | | LAB | | | | [address], | | | | | | [place] [address] | | | | + + + + + + | CO2 | 18 (L)Comment: Testing | 23 - 32 mmol/L | EXTERNAL | | | | performed at [facility], [address] | | LAB | | | | [address], | | | | | | [place] [address] | | | | + + + + + + | Anion Gap | 9Comment: Testing | 5 - 20 mmol/L | EXTERNAL | | | | performed at [facility], [address] | | LAB | | | | [address], | | | | | | [place] [address] | | | | + + + + + + | Glucose, | 173 (H)Comment: Testing | 65 - 99 mg/dL | EXTERNAL | | | Fasting | performed at [facility], [address] | | LAB | | | | [address], | | | | | | [place] [address] | | | | + + + + + + | BUN | 11Comment: Testing | 8 - 25 mg/dL | EXTERNAL | | | | performed at [facility], [address] | | LAB | | | | [address], | | | | | | [place] [address] | | | | + + + + + + | Creatinine | 0.77Comment: Testing | 0.50 - 1.00 | EXTERNAL | | | | performed at [facility], [address] | mg/dL | LAB | | | | [address], | | | | | | [place] [address] | | | | + + + + + + | BUN/Creatin | 14Comment: Testing | | EXTERNAL | | | ine Ratio | performed at [facility], [address] | | LAB | | | | [address], | | | | | | [place] [address] | | | | + + + + + + | Calcium | 7.5 (L)Comment: Testing | 8.5 - 10.2 | EXTERNAL | | | | performed at [facility], [address] | mg/dL | LAB | | | | [address], | | | | | | [place] [address] | | | | + + + [...] | | | | | | [place] [address] | | | | + + + [...] | | | Fingerstick | performed at [facility];[address] | | LAB | | | | [address];[place] | | | | | | [address] | | | | + + + [...] | | | Fingerstick | performed at [facility];[address] | | LAB | | | | [address];[place], [place] | | | | | | [address] | | | | + + + [...] | | | Fingerstick | performed at [facility];[address] | | LAB | | | | [address];[place] | | | | | | [address] | | | | + + [...] | | | Fingerstick | performed at [facility];[address] | | LAB | | | | [address];[place], [place] | | | | | | [address] | | | | + + + [...] | | | Fingerstick | performed at [facility];[address] | | LAB | | | | [address];[place] | | | | | | [address] | | | | + + + [...] | | | Fingerstick | performed at [facility];[address] | | LAB | | | | [address];[place] | | | | | | [address] | | | | + + + [...] | | | Fingerstick | performed at [facility];[address] | | LAB | | | | [address];[place] | | | | | | [address] | | | | + + + [...] | | | Fingerstick | performed at [facility] | | LAB | | | | [address];[place], [place] | | | | | | [address] | | | | + + + [...] EXTERNAL | | | | performed at [facility];[address] | mmol/L | LAB | | | | [address];[place], [place] | | | | | | [address] | | | | + + + [...] | | | Fingerstick | performed at [facility];[address] | | LAB | | | | [address];[place], [place] | | | | | | [address] | | | | + + + [...] Right IJ sheath | | | with Shutesbury-Puja catheter in the main pulmonary artery, midline [...] hrs. FINDINGS:Median sternotomy. Right IJ sheath with Shutesbury-Puja catheter in the | | main pulmonary [...] | |Median sternotomy. Right IJ sheath with Shutesbury-Puja catheter in the main pulmonary artery, mi [...] | | | Fingerstick | performed at [facility];[address] | | LAB | | | | [address];[place] | | | | | | [address] | | | | + + + [...] EXTERNAL | | | | performed at [facility], [address] | | LAB | | | | [address], | | | | | | [place] [address] | | | | + + + + + + | RED CELL | 2.99 (L)Comment: Testing | 3.70 - 5.10 | EXTERNAL | | | COUNT | performed at [facility], [address] | M/uL | LAB | | | | [address], | | | | | | [place] [address] | | | | + + + + + + | Hgb | 9.7 (L)Comment: Testing | 11.3 - 15.5 | EXTERNAL | | | | performed at [facility], [address] | g/dL | LAB | | | | [address], | | | | | | [place] [address] | | | | + + + + + + | Hematocrit, | 28.6 (L)Comment: Testing | 34.0 - 46.0 % | EXTERNAL | | | POC | performed at [facility], [address] | | LAB | | | | [address], | | | | | | [place] [address] | | | | + + + + + + | MCV | 95.5Comment: Testing | 80.0 - 100.0 fl | EXTERNAL | | | | performed at [facility], [address] | | LAB | | | | [address], | | | | | | [place] [address] | | | | + + + + + + | MCH | 32.3Comment: Testing | 27.0 - 34.0 pg | EXTERNAL | | | | performed at [facility], [address] | | LAB | | | | [address], | | | | | | [place] [address] | | | | + + + + + + | MCHC | 33.8Comment: Testing | 32.0 - 35.5 | EXTERNAL | | | | performed at [facility], [address] | g/dL | LAB | | | | [address], | | | | | | [place] [address] | | | | + + + + + + | RDW-CV | 46.4Comment: Testing | 37 - 53 fl | EXTERNAL | | | | performed at [facility], [address] | | LAB | | | | [address], | | | | | | [place] [address] | | | | + + + + + + | Platelet | 118 (L)Comment: Testing | 150 - 400 K/uL | EXTERNAL | | | Count | performed at [facility], [address] | | LAB | | | Plasma | [address], | | | | | | [place] [address] | | | | + + + + + + | MPV | 8.5Comment: Testing | fl | EXTERNAL | | | | performed at [facility], [address] | | LAB | | | | [address], | | | | | | [place] [address] | | | | + + + + + + | Differentia | AUTOMATEDComment: | | EXTERNAL | | | l Type | Testing performed at | | LAB | | | | [facility], [address] | | | | | | [place] | | | | | | [address] | | | | + + + + + + | % Segmented | 66.5Comment: Testing | % | EXTERNAL | | | | performed at [facility], [address] | | LAB | | | Neutrophils | [address], | | | | | | [place] [address] | | | | + + + + + + | % | 18.3Comment: Testing | % | EXTERNAL | | | Lymphocytes | performed at [facility], [address] | | LAB | | | | [address], | | | | | | [place] [address] | | | | + + + + + + | % Monocytes | 14.3Comment: Testing | % | EXTERNAL | | | | performed at [facility], [address] | | LAB | | | | [address], | | | | | | [place] [address] | | | | + + + + + + | % | 0.2Comment: Testing | % | EXTERNAL | | | Eosinophils | performed at [facility], [address] | | LAB | | | | [address], | | | | | | [place] [address] | | | | + + + + + + | % Basophils | 0.7Comment: Testing | % | EXTERNAL | | | | performed at [facility], [address] | | LAB | | | | [address], | | | | | | [place] [address] | | | | + + + [...] | | | | | [place] [address] | | | | + + + + + + | Absolute | 1.8 (H)Comment: Testing | 0 - 0.8 K/uL | EXTERNAL | | | Monocytes | performed at [facility], [address] | | LAB | | | | [address], | | | | | | [place] [address] | | | | + + + + + + | Absolute | 0.0Comment: Testing | 0 - 0.5 K/uL | EXTERNAL | | | Eosinophils | performed at [facility], [address] | | LAB | | | | [address], | | | | | | [place] [address] | | | | + + + + + + | Absolute | 0.1Comment: Testing | 0 - 0.1 K/uL | EXTERNAL | | | Basophils | performed at [facility], [address] | | LAB | | | | [address], | | | | | | [place] [address] | | | | + + + [...] EXTERNAL | | | | performed at [facility], [address] | | LAB | | | | [address], | | | | | | [place] [address] | | | | + + + [...] | EXTERNAL | | | A1c | [facility] | | LAB | | | [...] | | | | | performed at [facility], [address] | | | | | | [address], | | | | | | [place] [address] | | | | + + + [...] | | | | | performed at [facility], [address] | | | | | | [facility], | | | | | | [place] [address] | | | | + + + [...] | | | | | [place] [address] | | | | + + + + + + | K | 4.3Comment: Testing | 3.5 - 4.9 | EXTERNAL | | | | performed at [facility], [address] | mmol/L | LAB | | | | [address], | | | | | | [place] [address] | | | | + + + + + + | Cl | 113 (H)Comment: Testing | 99 - 109 mmol/L | EXTERNAL | | | | performed at [facility], [address] | | LAB | | | | [address], | | | | | | [place] [address] | | | | + + + + + + | CO2 | 22 (L)Comment: Testing | 23 - 32 mmol/L | EXTERNAL | | | | performed at [facility], [address] | | LAB | | | | [address], | | | | | | [place] [address] | | | | + + + + + + | Anion Gap | 6Comment: Testing | 5 - 20 mmol/L | EXTERNAL | | | | performed at [facility], [address] | | LAB | | | | [address], | | | | | | [place] [address] | | | | + + + + + + | Glucose, | 116 (H)Comment: Testing | 65 - 99 mg/dL | EXTERNAL | | | Fasting | performed at [facility], [address] | | LAB | | | | [address], | | | | | | [place] [address] | | | | + + + + + + | BUN | 12Comment: Testing | 8 - 25 mg/dL | EXTERNAL | | | | performed at [facility], [address] | | LAB | | | | [address], | | | | | | [place] [address] | | | | + + + + + + | Creatinine | 1.02 (H)Comment: Testing | 0.50 - 1.00 | EXTERNAL | | | | performed at [facility], [address] | mg/dL | LAB | | | | [address], | | | | | | [place] [address] | | | | + + + + + + | BUN/Creatin | 12Comment: Testing | | EXTERNAL | | | ine Ratio | performed at [facility], [address] | | LAB | | | | [address], | | | | | | [place] [address] | | | | + + + [...] | | | | | [place] [address] | | | | + + + [...] | | | Fingerstick | performed at [facility];[address] | | LAB | | | | [address];[place], [place] | | | | | | [address] | | | | + + + [...] | | | Fingerstick | performed at [facility];[address] | | LAB | | | | [address];[place] | | | | | | [address] | | | | + + + [...] EXTERNAL | | | | performed at [facility];[address] | mmol/L | LAB | | | | [address];[place], [place] | | | | | | [address] | | | | + + + [...] | | | Fingerstick | performed at [facility];[address] | | LAB | | | | [address];[place] | | | | | | [address] | | | | + + + [...] | | | Fingerstick | performed at [facility];[address] | | LAB | | | | [address];[place], [place] | | | | | | [address] | | | | + + + [...] | | | Fingerstick | performed at [facility];[address] | | LAB | | | | [address];[place] | | | | | | [address] | | | | + + + [...] EXTERNAL | | | | performed at [facility];[address] | | LAB | | | | [address];[place] | | | | | | [address] | | | | + + + [...] | | | | | | ACUTE [place] CALLED TO | | | | | | TARI Gracia IN ICU AT 2115 | | | | | | BY CD, READ BACKTesting | | | | | | performed at [facility];[address] | | | | | | [facility];[place], [place] | | | | | | [address] | | | | + + + [...] EXTERNAL | | | | performed at [facility];[address] | mmol/L | LAB | | | | [address];[place], [place] | | | | | | [address] | | | | + + + [...] EXTERNAL | | | | performed at [facility];[address] | | LAB | | | | [address] [facility];[place] | | | | | | [address] | | | | + + + [...] LAB | | | | performed at [facility];[address] | | | | | | [address];[place], [place] | | | | | | [address] | | | | + + + [...] | | | Fingerstick | performed at [facility];8 | | LAB | | | | [address];[place] | | | | | | [address] | | | | + + + [...] with removal of the enteric tube. The Shutesbury-Puja | | | catheter remains in place. [...] Conversion - 11/26/2018 3:41 PM PDT TAMIKO [id number] yearsXR CHEST 1 | | VIEW12/09/2013 4:22 PM INDICATION: Hypertension, chest pain COMPARISON: 12/09/2013 | | TECHNIQUE: Chest 1 view, AP view of the chest FINDINGS: The patient is extubated with | | removal of the enteric tube. The Shutesbury-Puja catheter remains in place. A left-sided chest [...] with removal of the enteric tube. The Shutesbury-Puja cathete r remains in place. A left-sided [...] | | | Fingerstick | performed at [facility];[address] | | LAB | | | | [address];[place] | | | | | | [address] | | | | + + + [...] | | | Fingerstick | performed at [facility];[address] | | LAB | | | | [address];[place], [place] | | | | | | [address] | | | | + + + [...] | | | Fingerstick | performed at [facility];8 | | LAB | | | | [address];[place] | | | | | | [address] | | | | + + + [...] EXTERNAL | | | | performed at [facility];[address] | | LAB | | | | [address];[place] | | | | | | [address] | | | | + + + + + + | PH ART | 7.260 (L)Comment: | 7.350 - 7.450 | EXTERNAL | | | | Testing performed at | | LAB | | | | [facility];[address];[place] [address] | | | | + + + + + + | PCO2 ART | 45Comment: Testing | 35 - 45 mmHg | EXTERNAL | | | | performed at [facility];[address] | | LAB | | | | [address];[place] | | | | | | [address] | | | | + + + + + + | PO2 ART | 109 (H)Comment: Testing | 80 - 105 mmHg | EXTERNAL | | | | performed at [facility];[address] | | LAB | | | | [address];[place] | | | | | | [address] | | | | + + + + + + | HCO3 ART | 20 (L)Comment: Testing | 22 - 26 mmol/L | EXTERNAL | | | | performed at [facility];[address] | | LAB | | | | [address];[place] | | | | | | [address] | | | | + + + + + + | POC | 21 (L)Comment: Testing | 23 - 27 mEq/L | EXTERNAL | | | APPEARANCE | performed at [facility];[address] | | LAB | | | UA | [address];[place] | | | | | | [address] | | | | + + + + + + | Base | 7 (H)Comment: Testing | 0.0 - 2.0 | EXTERNAL | | | deficit | performed at [facility];[address] | mmol/L | LAB | | | | [address];[place] | | | | | | [address] | | | | + + + + + + | O2 SAT ART | 97Comment: Testing | 95 - 98 % | EXTERNAL | | | | performed at [facility];[address] | | LAB | | | | [address];[place] | | | | | | [address] | | | | + + + + + + | Sodium, POC | 140Comment: Testing | 135 - 145 mEq/L | EXTERNAL | | | | performed at [facility];[address] | | LAB | | | | [address];[place] | | | | | | [address] | | | | + + + + + + | Potassium, | 3.7Comment: Testing | 3.5 - 5.0 mEq/L | EXTERNAL | | | POC | performed at [facility];[address] | | LAB | | | | [address];[place] | | | | | | [address] | | | | + + + + + + | Ionized | 1.07 (L)Comment: Testing | 1.12 - 1.32 | EXTERNAL | | | Calcium, | performed at [facility];[address] | mmol/L | LAB | | | POC | [address];[place] | | | | | | [address] | | | | + + + + + + | Glucose, | 112 (H)Comment: Testing | 65 - 99 mg/dL | EXTERNAL | | | POC | performed at [facility];[address] | | LAB | | | | [address];[place] | | | | | | [address] | | | | + + + + + + | Hematocrit, | 23 (LL)Comment: Testing | 35.0 - 46.0 % | EXTERNAL | | | POC | performed at [facility];[address] | | LAB | | | | [address];[place] | | | | | | [address] | | | | + + + + + + | Hemoglobin, | 7.8 (LL)Comment: Testing | 11.6 - 15.5 | EXTERNAL | | | POC | performed at [facility];[address] | g/dL | LAB | | | | [address];[place] | | | | | | [address] | | | | + + + + + + | Comment, | Tidal Volume = | | EXTERNAL | | | POC | 14Comment: Peep = 8Resp | | LAB | | | | Rate = 41Testing | | | | | | performed at [facility];[address] | | | | | | [address];[place] | | | | | | [address] | | | | + + + [...] seen, through | | | which a Shutesbury-Puja catheter is noted, the tip at the [...] Cordis catheter is seen, through which a Shutesbury-Puja | | catheter is noted, the tip [...] | | | Patient | performed at [facility];[address] | | LAB | | | | [address];[place] | | | | | | [address] | | | | + + [...] | | | | | performed at [facility] | | | | | | [address];[place], [place] | | | | | | [address] | | | | + + + [...] EXTERNAL | | | | performed at [facility];[address] | | LAB | | | | [address] [facility];[place], [place] | | | | | | [address] | | | | + + + [...] EXTERNAL | | | | performed at [facility] | | LAB | | | | [address];[place] | | | | | | [address] | | | | + + + + + + | RED CELL | 2.82 (L)Comment: Testing | 3.70 - 5.10 | EXTERNAL | | | COUNT | performed at [facility];[address] | M/uL | LAB | | | | [address];[place] | | | | | | [address] | | | | + + + + + + | Hgb | 9.1 (L)Comment: Testing | 11.3 - 15.5 | EXTERNAL | | | | performed at [facility];888 | g/dL | LAB | | | | [address];[place] | | | | | | [address] | | | | + + + + + + | Hematocrit, | 26.4 (L)Comment: Testing | 34.0 - 46.0 % | EXTERNAL | | | POC | performed at [facility];888 | | LAB | | | | [address];[place] | | | | | | [address] | | | | + + + + + + | MCV | 93.6Comment: Testing | 80.0 - 100.0 fl | EXTERNAL | | | | performed at [facility];888 | | LAB | | | | [address];[place] | | | | | | [address] | | | | + + + + + + | MCH | 32.1Comment: Testing | 27.0 - 34.0 pg | EXTERNAL | | | | performed at [facility];888 | | LAB | | | | [address];[place] | | | | | | [address] | | | | + + + + + + | MCHC | 34.3Comment: Testing | 32.0 - 35.5 | EXTERNAL | | | | performed at [facility];888 | g/dL | LAB | | | | [address];[place] | | | | | | [address] | | | | + + + + + + | RDW-CV | 43.3Comment: Testing | 37 - 53 fl | EXTERNAL | | | | performed at [facility];888 | | LAB | | | | [address];[place] | | | | | | [address] | | | | + + + + + + | Platelet | 132 (L)Comment: Testing | 150 - 400 K/uL | EXTERNAL | | | Count | performed at [facility];888 | | LAB | | | Plasma | [address];[place] | | | | | | [address] | | | | + + + + + + | MPV | 6.9Comment: Testing | fl | EXTERNAL | | | | performed at [facility];888 | | LAB | | | | [address];[place] | | | | | | [address] | | | | + + + + + + | Differentia | AUTOMATEDComment: | | EXTERNAL | | | l Type | Testing performed at | | LAB | | | | [facility];[address];[place] [address] | | | | + + + + + + | % Segmented | 66.3Comment: Testing | % | EXTERNAL | | | | performed at [facility];888 | | LAB | | | Neutrophils | [address];[place] | | | | | | [address] | | | | + + + + + + | % | 26.6Comment: Testing | % | EXTERNAL | | | Lymphocytes | performed at [facility];[address] | | LAB | | | | [address];[place] | | | | | | [address] | | | | + + + + + + | % Monocytes | 4.2Comment: Testing | % | EXTERNAL | | | | performed at [facility];[address] | | LAB | | | | [address];[place] | | | | | | [address] | | | | + + + + + + | % | 2.6Comment: Testing | % | EXTERNAL | | | Eosinophils | performed at [facility];[address] | | LAB | | | | [address];[place] | | | | | | [address] | | | | + + + + + + | % Basophils | 0.3Comment: Testing | % | EXTERNAL | | | | performed at [facility];[address] | | LAB | | | | [address];[place] | | | | | | [address] | | | | + + + + + + | Absolute | 12.0 (H)Comment: Testing | 1.9 - 7.4 K/uL | EXTERNAL | | | Segmented | performed at [facility];888 | | LAB | | | Neutrophils | [address];[place] | | | | | | [address] | | | | + + + + + + | Absolute | 4.8 (H)Comment: Testing | 1.0 - 3.9 K/uL | EXTERNAL | | | Lymphocytes | performed at [facility];[address] | | LAB | | | | [address];[place] | | | | | | [address] | | | | + + + + + + | Absolute | 0.8Comment: Testing | 0 - 0.8 K/uL | EXTERNAL | | | Monocytes | performed at [facility];[address] | | LAB | | | | [address];[place] | | | | | | [address] | | | | + + + + + + | Absolute | 0.5Comment: Testing | 0 - 0.5 K/uL | EXTERNAL | | | Eosinophils | performed at [facility];[address] | | LAB | | | | [address];[place] | | | | | | [address] | | | | + + + + + + | Absolute | 0.1Comment: Testing | 0 - 0.1 K/uL | EXTERNAL | | | Basophils | performed at [facility];[address] | | LAB | | | | [address];[place] | | | | | | [address] | | | | + + + [...] LAB | | | | performed at [facility];[address] | | | | | | [address] [facility];[place], [place] | | | | | | [address] | | | | + + + [...] | | | (Calc) | performed at [facility];888 | mmol/L | LAB | | | | [address];[place] | | | | | | [address] | | | | + + + + + + | pH, Bld | 7.333Comment: Testing | 7.300 - 7.450 | EXTERNAL | | | | performed at [facility];[address] | | LAB | | | | [address];[place] | | | | | | [address] | | | | + + + [...] EXTERNAL | | | | performed at [facility];888 | mmol/L | LAB | | | | [address];[place] | | | | | | [address] | | | | + + + + + + | K | 3.9Comment: MODERATE | 3.5 - 4.9 | EXTERNAL | | | | HEMOLYSISTesting | mmol/L | LAB | | | | performed at [facility];[address] | | | | | | [address];[place] | | | | | | [address] | | | | + + + + + + | Cl | 117 (H)Comment: Testing | 99 - 109 mmol/L | EXTERNAL | | | | performed at [facility];[address] | | LAB | | | | [address];[place] | | | | | | [address] | | | | + + + + + + | CO2 | 22 (L)Comment: Testing | 23 - 32 mmol/L | EXTERNAL | | | | performed at [facility];[address] | | LAB | | | | [address];[place] | | | | | | [address] | | | | + + + + + + | Anion Gap | 11Comment: Testing | 5 - 20 mmol/L | EXTERNAL | | | | performed at [facility];[address] | | LAB | | | | [address];[place] | | | | | | [address] | | | | + + + + + + | Glucose, | 112 (H)Comment: Testing | 65 - 99 mg/dL | EXTERNAL | | | Fasting | performed at [facility];[address] | | LAB | | | | [address];[place] | | | | | | [address] | | | | + + + + + + | BUN | 16Comment: Testing | 8 - 25 mg/dL | EXTERNAL | | | | performed at [facility];[address] | | LAB | | | | [address];[place] | | | | | | [address] | | | | + + + + + + | Creatinine | 1.01 (H)Comment: Testing | 0.50 - 1.00 | EXTERNAL | | | | performed at [facility];888 | mg/dL | LAB | | | | [address];[place] | | | | | | [address] | | | | + + + + + + | BUN/Creatin | 16Comment: Testing | | EXTERNAL | | | ine Ratio | performed at [facility];[address] | | LAB | | | | [address];[place] | | | | | | [address] | | | | + + + + + + | Calcium | 8.3 (L)Comment: Testing | 8.5 - 10.2 | EXTERNAL | | | | performed at [facility];888 | mg/dL | LAB | | | | [address];[place] | | | | | | [address] | | | | + + + [...] | | | | | | at [facility];[address] | | | | | | [facility];[place] [address] | | | | + + + [...] | | LAB | | | | [facility];[address] | | | | [address];[place] [address] | | | | + + + + + + | PCO2 ART | 42Comment: Testing | 35 - 45 mmHg | EXTERNAL | | | | performed at [facility];[address] | | LAB | | | | [address];[place] | | | | | | [address] | | | | + + + + + + | PO2 ART | 188 (H)Comment: Testing | 80 - 105 mmHg | EXTERNAL | | | | performed at [facility];[address] | | LAB | | | | [address];[place] | | | | | | [address] | | | | + + + + + + | HCO3 ART | 21 (L)Comment: Testing | 22 - 26 mmol/L | EXTERNAL | | | | performed at [facility];[address] | | LAB | | | | [address];[place] | | | | | | [address] | | | | + + + + + + | POC | 23Comment: Testing | 23 - 27 mEq/L | EXTERNAL | | | APPEARANCE | performed at [facility];[address] | | LAB | | | UA | [address];[place] | | | | | | [address] | | | | + + + + + + | Base | 5 (H)Comment: Testing | 0.0 - 2.0 | EXTERNAL | | | deficit | performed at [facility];888 | mmol/L | LAB | | | | [address];[place] | | | | | | [address] | | | | + + + + + + | O2 SAT ART | 100 (H)Comment: Testing | 95 - 98 % | EXTERNAL | | | | performed at [facility];[address] | | LAB | | | | [address];[place] | | | | | | [address] | | | | + + + + + + | Sodium, POC | 141Comment: Testing | 135 - 145 mEq/L | EXTERNAL | | | | performed at [facility];[address] | | LAB | | | | [address];[place] | | | | | | [address] | | | | + + + + + + | Potassium, | 4.5Comment: Testing | 3.5 - 5.0 mEq/L | EXTERNAL | | | POC | performed at [facility];[address] | | LAB | | | | [address];[place] | | | | | | [address] | | | | + + + + + + | Ionized | 1.59 (HH)Comment: | 1.12 - 1.32 | EXTERNAL | | | Calcium, | Testing performed at | mmol/L | LAB | | | POC | [facility];[address];[place] [address] | | | | + + + + + + | Glucose, | 176 (H)Comment: Testing | 65 - 99 mg/dL | EXTERNAL | | | POC | performed at [facility];[address] | | LAB | | | | [address];[place] | | | | | | [address] | | | | + + + + + + | Hematocrit, | 20 (LL)Comment: Testing | 35.0 - 46.0 % | EXTERNAL | | | POC | performed at [facility];[address] | | LAB | | | | [address];[place] | | | | | | [address] | | | | + + + + + + | Hemoglobin, | 6.8 (LL)Comment: Testing | 11.6 - 15.5 | EXTERNAL | | | POC | performed at [facility];888 | g/dL | LAB | | | | [address];[place], [place] | | | | | | [address] | | | | + + + [...] This is a non-reportable procedure without a bulking machine operator report and | | | is used for image storage only. Please review the operative | | | procedure notes for details on the procedure. | | + + + + + | Procedure Note | + + | César Hawkins - 11/26/2018 3:41 PM PDT This is a non-reportable procedure | | without a bulking machine operator report and isused for image storage only. [...] EXTERNAL | | | | performed at [facility];[address] | | LAB | | | | [facility];[place], [place] | | | | | | [address] | | | | + + + + + + | PCO2 ART | 38Comment: Testing | 35 - 45 mmHg | EXTERNAL | | | | performed at [facility];[address] | | LAB | | | | [address];[place] | | | | | | [address] | | | | + + + + + + | PO2 ART | 228 (H)Comment: Testing | 80 - 105 mmHg | EXTERNAL | | | | performed at [facility];[address] | | LAB | | | | [address];[place] | | | | | | [address] | | | | + + + + + + | HCO3 ART | 24Comment: Testing | 22 - 26 mmol/L | EXTERNAL | | | | performed at [facility];[address] | | LAB | | | | [address];[place] | | | | | | [address] | | | | + + + + + + | POC | 25Comment: Testing | 23 - 27 mEq/L | EXTERNAL | | | APPEARANCE | performed at [facility];[address] | | LAB | | | UA | [address];[place] | | | | | | [address] | | | | + + + + + + | Base | 1Comment: Testing | 0.0 - 2.0 | EXTERNAL | | | deficit | performed at [facility];888 | mmol/L | LAB | | | | [address];[place] | | | | | | [address] | | | | + + + + + + | O2 SAT ART | 100 (H)Comment: Testing | 95 - 98 % | EXTERNAL | | | | performed at [facility];[address] | | LAB | | | | [address];[place] | | | | | | [address] | | | | + + + + + + | Sodium, POC | 141Comment: Testing | 135 - 145 mEq/L | EXTERNAL | | | | performed at [facility];[address] | | LAB | | | | [address];[place] | | | | | | [address] | | | | + + + + + + | Potassium, | 5.1 (H)Comment: Testing | 3.5 - 5.0 mEq/L | EXTERNAL | | | POC | performed at [facility];[address] | | LAB | | | | [address];[place] | | | | | | [address] | | | | + + + + + + | Ionized | 1.05 (L)Comment: Testing | 1.12 - 1.32 | EXTERNAL | | | Calcium, | performed at [facility];888 | mmol/L | LAB | | | POC | [address];[place] | | | | | | [address] | | | | + + + + + + | Glucose, | 124 (H)Comment: Testing | 65 - 99 mg/dL | EXTERNAL | | | POC | performed at [facility];[address] | | LAB | | | | [address];[place] | | | | | | [address] | | | | + + + + + + | Hematocrit, | 22 (LL)Comment: Testing | 35.0 - 46.0 % | EXTERNAL | | | POC | performed at [facility];[address] | | LAB | | | | [address];[place] | | | | | | [address] | | | | + + + + + + | Hemoglobin, | 7.5 (LL)Comment: Testing | 11.6 - 15.5 | EXTERNAL | | | POC | performed at [facility];888 | g/dL | LAB | | | | [address];[place] | | | | | | [address] | | | | + + + [...] EXTERNAL | | | | performed at [facility];[address] | | LAB | | | | [address];[place] | | | | | | [address] | | | | + + + + + + | PCO2 ART | 36Comment: Testing | 35 - 45 mmHg | EXTERNAL | | | | performed at [facility];[address] | | LAB | | | | [address];[place] | | | | | | [address] | | | | + + + + + + | PO2 ART | 233 (H)Comment: Testing | 80 - 105 mmHg | EXTERNAL | | | | performed at [facility];[address] | | LAB | | | | [address];[place] | | | | | | [address] | | | | + + + + + + | HCO3 ART | 23Comment: Testing | 22 - 26 mmol/L | EXTERNAL | | | | performed at [facility];[address] | | LAB | | | | [address];[place] | | | | | | [address] | | | | + + + + + + | POC | 24Comment: Testing | 23 - 27 mEq/L | EXTERNAL | | | APPEARANCE | performed at [facility];[address] | | LAB | | | UA | [address];[place] | | | | | | [address] | | | | + + + + + + | Base | 2Comment: Testing | 0.0 - 2.0 | EXTERNAL | | | deficit | performed at [facility];888 | mmol/L | LAB | | | | [address];[place] | | | | | | [address] | | | | + + + + + + | O2 SAT ART | 100 (H)Comment: Testing | 95 - 98 % | EXTERNAL | | | | performed at [facility];[address] | | LAB | | | | [address];[place] | | | | | | [address] | | | | + + + + + + | Sodium, POC | 139Comment: Testing | 135 - 145 mEq/L | EXTERNAL | | | | performed at [facility];[address] | | LAB | | | | [address];[place] | | | | | | [address] | | | | + + + + + + | Potassium, | 5.5 (H)Comment: Testing | 3.5 - 5.0 mEq/L | EXTERNAL | | | POC | performed at [facility];[address] | | LAB | | | | [address];[place] | | | | | | [address] | | | | + + + + + + | Ionized | 1.05 (L)Comment: Testing | 1.12 - 1.32 | EXTERNAL | | | Calcium, | performed at [facility];888 | mmol/L | LAB | | | POC | [address];[place] | | | | | | [address] | | | | + + + + + + | Glucose, | 120 (H)Comment: Testing | 65 - 99 mg/dL | EXTERNAL | | | POC | performed at [facility];[address] | | LAB | | | | [address];[place] | | | | | | [address] | | | | + + + + + + | Hematocrit, | 21 (LL)Comment: Testing | 35.0 - 46.0 % | EXTERNAL | | | POC | performed at [facility];[address] | | LAB | | | | [address];[place] | | | | | | [address] | | | | + + + + + + | Hemoglobin, | 7.1 (LL)Comment: Testing | 11.6 - 15.5 | EXTERNAL | | | POC | performed at [facility];888 | g/dL | LAB | | | | [address];[place], [place] | | | | | | [address] | | | | + + + [...] EXTERNAL | | | | performed at [facility];888 | | LAB | | | | [address];[place] | | | | | | [address] | | | | + + + + + + | PCO2 ART | 36Comment: Testing | 35 - 45 mmHg | EXTERNAL | | | | performed at [facility];[address] | | LAB | | | | [address];[place] | | | | | | [address] | | | | + + + + + + | PO2 ART | 229 (H)Comment: Testing | 80 - 105 mmHg | EXTERNAL | | | | performed at [facility];[address] | | LAB | | | | [address];[place] | | | | | | [address] | | | | + + + + + + | HCO3 ART | 24Comment: Testing | 22 - 26 mmol/L | EXTERNAL | | | | performed at [facility];[address] | | LAB | | | | [address];[place] | | | | | | [address] | | | | + + + + + + | POC | 25Comment: Testing | 23 - 27 mEq/L | EXTERNAL | | | APPEARANCE | performed at [facility];[address] | | LAB | | | UA | [address];[place] | | | | | | [address] | | | | + + + + + + | Base | 1Comment: Testing | 0.0 - 2.0 | EXTERNAL | | | deficit | performed at [facility];888 | mmol/L | LAB | | | | [address];[place] | | | | | | [address] | | | | + + + + + + | O2 SAT ART | 100 (H)Comment: Testing | 95 - 98 % | EXTERNAL | | | | performed at [facility];[address] | | LAB | | | | [address];[place] | | | | | | [address] | | | | + + + + + + | Sodium, POC | 138Comment: Testing | 135 - 145 mEq/L | EXTERNAL | | | | performed at [facility];[address] | | LAB | | | | [address];[place] | | | | | | [address] | | | | + + + + + + | Potassium, | 5.5 (H)Comment: Testing | 3.5 - 5.0 mEq/L | EXTERNAL | | | POC | performed at [facility];[address] | | LAB | | | | [address];[place] | | | | | | [address] | | | | + + + + + + | Ionized | 1.04 (L)Comment: Testing | 1.12 - 1.32 | EXTERNAL | | | Calcium, | performed at [facility];888 | mmol/L | LAB | | | POC | [address];[place] | | | | | | [address] | | | | + + + + + + | Glucose, | 115 (H)Comment: Testing | 65 - 99 mg/dL | EXTERNAL | | | POC | performed at [facility];[address] | | LAB | | | | [address];[place] | | | | | | [address] | | | | + + + + + + | Hematocrit, | 21 (LL)Comment: Testing | 35.0 - 46.0 % | EXTERNAL | | | POC | performed at [facility];[address] | | LAB | | | | [address];[place] | | | | | | [address] | | | | + + + + + + | Hemoglobin, | 7.1 (LL)Comment: Testing | 11.6 - 15.5 | EXTERNAL | | | POC | performed at [facility];888 | g/dL | LAB | | | | [address];[place] | | | | | | [address] | | | | + + + [...] EXTERNAL | | | | performed at [facility];[address] | | LAB | | | | [address];[place] | | | | | | [address] | | | | + + + + + + | PCO2 ART | 37Comment: Testing | 35 - 45 mmHg | EXTERNAL | | | | performed at [facility];[address] | | LAB | | | | [address];[place] | | | | | | [address] | | | | + + + + + + | PO2 ART | 230 (H)Comment: Testing | 80 - 105 mmHg | EXTERNAL | | | | performed at [facility];[address] | | LAB | | | | [address];[place] | | | | | | [address] | | | | + + + + + + | HCO3 ART | 24Comment: Testing | 22 - 26 mmol/L | EXTERNAL | | | | performed at [facility];[address] | | LAB | | | | [address];[place] | | | | | | [address] | | | | + + + + + + | POC | 25Comment: Testing | 23 - 27 mEq/L | EXTERNAL | | | APPEARANCE | performed at [facility];[address] | | LAB | | | UA | [address];[place] | | | | | | [address] | | | | + + + + + + | Base | 0Comment: Testing | 0 - 3 mEq/L | EXTERNAL | | | Excess, | performed at [facility];[address] | | LAB | | | Arterial | [address];[place] | | | | | | [address] | | | | + + + + + + | O2 SAT ART | 100 (H)Comment: Testing | 95 - 98 % | EXTERNAL | | | | performed at [facility];[address] | | LAB | | | | [address];[place] | | | | | | [address] | | | | + + + + + + | Sodium, POC | 138Comment: Testing | 135 - 145 mEq/L | EXTERNAL | | | | performed at [facility];[address] | | LAB | | | | [address];[place] | | | | | | [address] | | | | + + + + + + | Potassium, | 5.7 (H)Comment: Testing | 3.5 - 5.0 mEq/L | EXTERNAL | | | POC | performed at [facility];[address] | | LAB | | | | [address];[place] | | | | | | [address] | | | | + + + + + + | Ionized | 1.05 (L)Comment: Testing | 1.12 - 1.32 | EXTERNAL | | | Calcium, | performed at [facility];888 | mmol/L | LAB | | | POC | [address];[place] | | | | | | [address] | | | | + + + + + + | Glucose, | 112 (H)Comment: Testing | 65 - 99 mg/dL | EXTERNAL | | | POC | performed at [facility];[address] | | LAB | | | | [address];[place] | | | | | | [address] | | | | + + + + + + | Hematocrit, | 21 (LL)Comment: Testing | 35.0 - 46.0 % | EXTERNAL | | | POC | performed at [facility];[address] | | LAB | | | | [address];[place] | | | | | | [address] | | | | + + + + + + | Hemoglobin, | 7.1 (LL)Comment: Testing | 11.6 - 15.5 | EXTERNAL | | | POC | performed at [facility];888 | g/dL | LAB | | | | [address];[place] | | | | | | [address] | | | | + + + [...] EXTERNAL | | | | performed at [facility];[address] | | LAB | | | | [address];[place] | | | | | | [address] | | | | + + + + + + | PCO2 ART | 42Comment: Testing | 35 - 45 mmHg | EXTERNAL | | | | performed at [facility];[address] | | LAB | | | | [address];[place] | | | | | | [address] | | | | + + + + + + | PO2 ART | 288 (H)Comment: Testing | 80 - 105 mmHg | EXTERNAL | | | | performed at [facility];[address] | | LAB | | | | [address];[place] | | | | | | [address] | | | | + + + + + + | HCO3 ART | 25Comment: Testing | 22 - 26 mmol/L | EXTERNAL | | | | performed at [facility];[address] | | LAB | | | | [address];[place] | | | | | | [address] | | | | + + + + + + | POC | 26Comment: Testing | 23 - 27 mEq/L | EXTERNAL | | | APPEARANCE | performed at [facility];[address] | | LAB | | | UA | [address];[place] | | | | | | [address] | | | | + + + + + + | Base | 0Comment: Testing | 0 - 3 mEq/L | EXTERNAL | | | Excess, | performed at [facility];[address] | | LAB | | | Arterial | [address];[place] | | | | | | [address] | | | | + + + + + + | O2 SAT ART | 100 (H)Comment: Testing | 95 - 98 % | EXTERNAL | | | | performed at [facility];[address] | | LAB | | | | [address];[place] | | | | | | [address] | | | | + + + + + + | Sodium, POC | 136Comment: Testing | 135 - 145 mEq/L | EXTERNAL | | | | performed at [facility];[address] | | LAB | | | | [address];[place] | | | | | | [address] | | | | + + + + + + | Potassium, | 3.8Comment: Testing | 3.5 - 5.0 mEq/L | EXTERNAL | | | POC | performed at [facility];[address] | | LAB | | | | [address];[place] | | | | | | [address] | | | | + + + + + + | Ionized | 0.96 (L)Comment: Testing | 1.12 - 1.32 | EXTERNAL | | | Calcium, | performed at [facility];888 | mmol/L | LAB | | | POC | [address];[place] | | | | | | [address] | | | | + + + + + + | Glucose, | 118 (H)Comment: Testing | 65 - 99 mg/dL | EXTERNAL | | | POC | performed at [facility];[address] | | LAB | | | | [address];[place] | | | | | | [address] | | | | + + + + + + | Hematocrit, | 24 (L)Comment: Testing | 35.0 - 46.0 % | EXTERNAL | | | POC | performed at [facility];[address] | | LAB | | | | [address];[place] | | | | | | [address] | | | | + + + + + + | Hemoglobin, | 8.2 (L)Comment: Testing | 11.6 - 15.5 | EXTERNAL | | | POC | performed at [facility];888 | g/dL | LAB | | | | [address];[place] | | | | | | [address] | | | | + + + [...] [address];[place] [address] | | | | + + + + + + | PCO2 ART | 55 (H)Comment: Testing | 35 - 45 mmHg | EXTERNAL | | | | performed at [facility];[address] | | LAB | | | | [address];[place] | | | | | | [address] | | | | + + + + + + | PO2 ART | 448 (H)Comment: Testing | 80 - 105 mmHg | EXTERNAL | | | | performed at [facility];888 | | LAB | | | | [address];[place] | | | | | | [address] | | | | + + + + + + | HCO3 ART | 24Comment: Testing | 22 - 26 mmol/L | EXTERNAL | | | | performed at [facility];888 | | LAB | | | | [address];[place] | | | | | | [address] | | | | + + + + + + | POC | 26Comment: Testing | 23 - 27 mEq/L | EXTERNAL | | | APPEARANCE | performed at [facility];888 | | LAB | | | UA | [address];[place] | | | | | | [address] | | | | + + + + + + | Base | 3 (H)Comment: Testing | 0.0 - 2.0 | EXTERNAL | | | deficit | performed at [facility];888 | mmol/L | LAB | | | | [address];[place] | | | | | | [address] | | | | + + + + + + | O2 SAT ART | 100 (H)Comment: Testing | 95 - 98 % | EXTERNAL | | | | performed at [facility];888 | | LAB | | | | [address];[place] | | | | | | [address] | | | | + + + + + + | Sodium, POC | 136Comment: Testing | 135 - 145 mEq/L | EXTERNAL | | | | performed at [facility];888 | | LAB | | | | [address];[place] | | | | | | [address] | | | | + + + + + + | Potassium, | 3.7Comment: Testing | 3.5 - 5.0 mEq/L | EXTERNAL | | | POC | performed at [facility];888 | | LAB | | | | [address];[place] | | | | | | [address] | | | | + + + + + + | Ionized | 1.19Comment: Testing | 1.12 - 1.32 | EXTERNAL | | | Calcium, | performed at [facility];888 | mmol/L | LAB | | | POC | [address];[place] | | | | | | [address] | | | | + + + + + + | Glucose, | 155 (H)Comment: Testing | 65 - 99 mg/dL | EXTERNAL | | | POC | performed at [facility];888 | | LAB | | | | [address];[place] | | | | | | [address] | | | | + + + + + + | Hematocrit, | 33 (L)Comment: Testing | 35.0 - 46.0 % | EXTERNAL | | | POC | performed at [facility];888 | | LAB | | | | [address];[place] | | | | | | [address] | | | | + + + + + + | Hemoglobin, | 11.2 (L)Comment: Testing | 11.6 - 15.5 | EXTERNAL | | | POC | performed at [facility];888 | g/dL | LAB | | | | [address];[place] | | | | | | [address] | | | | + + + [...] EXTERNAL | | | | performed at [facility];888 | | LAB | | | | [address];[place] | | | | | | [address] | | | | + + + + + + | PCO2 ART | 42Comment: Testing | 35 - 45 mmHg | EXTERNAL | | | | performed at [facility];[address] | | LAB | | | | [address];[place] | | | | | | [address] | | | | + + + + + + | PO2 ART | 381 (H)Comment: Testing | 80 - 105 mmHg | EXTERNAL | | | | performed at [facility];[address] | | LAB | | | | [address];[place] | | | | | | [address] | | | | + + + + + + | HCO3 ART | 24Comment: Testing | 22 - 26 mmol/L | EXTERNAL | | | | performed at [facility];[address] | | LAB | | | | [address];[place] | | | | | | [address] | | | | + + + + + + | POC | 25Comment: Testing | 23 - 27 mEq/L | EXTERNAL | | | APPEARANCE | performed at [facility];888 | | LAB | | | UA | [address];[place] | | | | | | [address] | | | | + + + + + + | Base | 1Comment: Testing | 0.0 - 2.0 | EXTERNAL | | | deficit | performed at [facility];888 | mmol/L | LAB | | | | [address];[place] | | | | | | [address] | | | | + + + + + + | O2 SAT ART | 100 (H)Comment: Testing | 95 - 98 % | EXTERNAL | | | | performed at [facility] [facility];[address] | | LAB | | | | [address];[place] | | | | | | [address] | | | | + + + + + + | Sodium, POC | 138Comment: Testing | 135 - 145 mEq/L | EXTERNAL | | | | performed at [facility];[address] | | LAB | | | | [address];[place] | | | | | | [address] | | | | + + + + + + | Potassium, | 3.9Comment: Testing | 3.5 - 5.0 mEq/L | EXTERNAL | | | POC | performed at [facility];[address] | | LAB | | | | [address];[place] | | | | | | [address] | | | | + + + + + + | Ionized | 1.22Comment: Testing | 1.12 - 1.32 | EXTERNAL | | | Calcium, | performed at [facility];888 | mmol/L | LAB | | | POC | [address];[place] | | | | | | [address] | | | | + + + + + + | Glucose, | 146 (H)Comment: Testing | 65 - 99 mg/dL | EXTERNAL | | | POC | performed at [facility];[address] | | LAB | | | | [address];[place] | | | | | | [address] | | | | + + + + + + | Hematocrit, | 36Comment: Testing | 35.0 - 46.0 % | EXTERNAL | | | POC | performed at [facility];[address] | | LAB | | | | [address];[place] | | | | | | [address] | | | | + + + + + + | Hemoglobin, | 12.2Comment: Testing | 11.6 - 15.5 | EXTERNAL | | | POC | performed at [facility];888 | g/dL | LAB | | | | [address];[place] | | | | | | [address] | | | | + + + [...] | | | Fingerstick | performed at [facility];[address] | | LAB | | | | [place] | | | | | | [address] | | | | + + + [...] EXTERNAL | | | | performed at [facility];[address] | | LAB | | | | [address];[place] | | | | | | [address] | | | | + + + [...] | | | | | | ACUTE [place] CKTRP PHONED TO | | | | | | 4RP KARENA AT 0440 BY | | | | | | LJREAD BACK RESULTS | | | | | | VERIFIEDTesting | | | | | | performed at [facility] | | | | | | [address];[place], [place] | | | | | | [address] | | | | + + [...] | | | Patient | performed at [facility];[address] | | LAB | | | | [place] | | | | | | [address] | | | | + + + [...] | | | | | [place] [address] | | | | + + + [...] g/dL | LAB | | | | [address], | | | | | | [place] [address] | | | | + + + + + + | Hematocrit, | 39.4Comment: Testing | 34.0 - 46.0 % | EXTERNAL | | | POC | performed at [facility], [address] | | LAB | | | | [address], | | | | | | [place] [address] | | | | + + + + + + | MCV | 95.5Comment: Testing | 80.0 - 100.0 fl | EXTERNAL | | | | performed at [facility], [address] | | LAB | | | | [address], | | | | | | [place] [address] | | | | + + + + + + | MCH | 31.2Comment: Testing | 27.0 - 34.0 pg | EXTERNAL | | | | performed at [facility], [address] | | LAB | | | | [address], | | | | | | [place] [address] | | | | + + + + + + | MCHC | 32.7Comment: Testing | 32.0 - 35.5 | EXTERNAL | | | | performed at [facility], [address] | g/dL | LAB | | | | [address], | | | | | | [place] [address] | | | | + + + + + + | RDW-CV | 45.1Comment: Testing | 37 - 53 fl | EXTERNAL | | | | performed at [facility], [address] | | LAB | | | | [address], | | | | | | [place] [address] | | | | + + + + + + | Platelet | 194Comment: Testing | 150 - 400 K/uL | EXTERNAL | | | Count | performed at [facility], [address] | | LAB | | | Plasma | [address], | | | | | | [place] [address] | | | | + + + + + + | MPV | 8.3Comment: Testing | fl | EXTERNAL | | | | performed at [facility], [address] | | LAB | | | | [address], | | | | | | [place] [address] | | | | + + + + + + | Differentia | AUTOMATEDComment: | | EXTERNAL | | | l Type | Testing performed at | | LAB | | | | [facility], [address] [facility] | | | | | | [place] | | | | | | [address] | | | | + + + + + + | % Segmented | 53.8Comment: Testing | % | EXTERNAL | | | | performed at [facility], [address] | | LAB | | | Neutrophils | [address], | | | | | | [place] [address] | | | | + + + + + + | % | 27.9Comment: Testing | % | EXTERNAL | | | Lymphocytes | performed at [facility], [address] | | LAB | | | | [address] [place], | | | | | | [place] [address] | | | | + + + + + + | % Monocytes | 11.8Comment: Testing | % | EXTERNAL | | | | performed at [facility], [address] | | LAB | | | | [address], | | | | | | [place] [address] | | | | + + + + + + | % | 5.2Comment: Testing | % | EXTERNAL | | | Eosinophils | performed at [facility], [address] | | LAB | | | [address], | | | | | | [place] [address] | | | | + + + + + + | % Basophils | 1.3Comment: Testing | % | EXTERNAL | | | | performed at [facility], [address] | | LAB | | | | [address], | | | | | | [place] [address] | | | | + + + + + + | Absolute | 5.7Comment: Testing | 1.9 - 7.4 K/uL | EXTERNAL | | | Segmented | performed at [facility], [address] | | LAB | | | Neutrophils | [address], | | | | | | [place] [address] | | | | + + + + + + | Absolute | 3.0Comment: Testing | 1.0 - 3.9 K/uL | EXTERNAL | | | Lymphocytes | performed at [facility], [address] | | LAB | | | | [address], | | | | | | [place] [address] | | | | + + + + + + | Absolute | 1.2 (H)Comment: Testing | 0 - 0.8 K/uL | EXTERNAL | | | Monocytes | performed at [facility], [address] | | LAB | | | | [address], | | | | | | [place] [address] | | | | + + + + + + | Absolute | 0.6 (H)Comment: Testing | 0 - 0.5 K/uL | EXTERNAL | | | Eosinophils | performed at [facility], [address] | | LAB | | | | [address], | | | | | | [place] [address] | | | | + + + + + + | Absolute | 0.1Comment: Testing | 0 - 0.1 K/uL | EXTERNAL | | | Basophils | performed at [facility], [address] | | LAB | | | | [address], | | | | | | [place] [address] | | | | + + + [...] EXTERNAL | | | | performed at [facility];[address] | | LAB | | | | [address];[place], [place] | | | | | | [address] | | | | + + + [...] EXTERNAL | | | | performed at [facility];[address] | | LAB | | | | [address];[place] | | | | | | [address] | | | | + + + [...] | EXTERNAL | | | A1c | [place] [facility] | | LAB | | | [...] | | | | | performed at [facility], [address] | | | | | | [address], | | | | | | [place] [address] | | | | + + + [...] | | | | | performed at [facility], [address] | | | | | | [place] [address], | | | | | | [place] [address] | | | | + + + [...] EXTERNAL | | | | performed at [facility];[address] | | LAB | | | | [place] | | | | | | [address] | | | | + + + [...] EXTERNAL | | | | performed at [facility];[address] | mmol/L | LAB | | | | [address];[place] | | | | | | [address] | | | | + + + + + + | K | 3.7Comment: Testing | 3.5 - 4.9 | EXTERNAL | | | | performed at [facility];[address] | mmol/L | LAB | | | | [address];[place] | | | | | | [address] | | | | + + + + + + | Cl | 106Comment: Testing | 99 - 109 mmol/L | EXTERNAL | | | | performed at [facility];[address] | | LAB | | | | [address];[place] | | | | | | [address] | | | | + + + + + + | CO2 | 23Comment: Testing | 23 - 32 mmol/L | EXTERNAL | | | | performed at [facility];[address] | | LAB | | | | [address];[place] | | | | | | [address] | | | | + + + + + + | Anion Gap | 14Comment: Testing | 5 - 20 mmol/L | EXTERNAL | | | | performed at [facility];[address] | | LAB | | | | [address];[place] | | | | | | [address] | | | | + + + + + + | Glucose, | 143 (H)Comment: Testing | 65 - 99 mg/dL | EXTERNAL | | | Fasting | performed at [facility];[address] | | LAB | | | | [address];[place] | | | | | | [address] | | | | + + + + + + | BUN | 22Comment: Testing | 8 - 25 mg/dL | EXTERNAL | | | | performed at [facility];[address] | | LAB | | | | [address];[place] | | | | | | [address] | | | | + + + + + + | Creatinine | 1.20 (H)Comment: Testing | 0.50 - 1.00 | EXTERNAL | | | | performed at [facility];888 | mg/dL | LAB | | | | [address];[place] | | | | | | [address] | | | | + + + + + + | BUN/Creatin | 19Comment: Testing | | EXTERNAL | | | ine Ratio | performed at [facility];[address] | | LAB | | | | [address];[place] | | | | | | [address] | | | | + + + + + + | Calcium | 8.6Comment: Testing | 8.5 - 10.2 | EXTERNAL | | | | performed at [facility];888 | mg/dL | LAB | | | | [address];[place] | | | | | | [address] | | | | + + + + + + | Protein, | 6.1 (L)Comment: Testing | 6.3 - 8.2 g/dL | EXTERNAL | | | Total | performed at [facility];[address] | | LAB | | | | [address];[place] | | | | | | [address] | | | | + + + + + + | Albumin | 3.4Comment: Testing | 3.3 - 4.8 g/dL | EXTERNAL | | | | performed at [facility];[address] | | LAB | | | | [address];[place] | | | | | | [address] | | | | + + + + + + | Globulin | 2.7Comment: Testing | 1.3 - 4.9 g/dL | EXTERNAL | | | | performed at [facility];[address] | | LAB | | | | [address];[place] | | | | | | [address] | | | | + + + + + + | A/G Ratio | 1.2Comment: Testing | 1.0 - 2.4 | EXTERNAL | | | | performed at [facility];[address] | | LAB | | | | [address];[place] | | | | | | [address] | | | | + + + + + + | Bilirubin | 0.5Comment: Testing | 0.1 - 1.5 mg/dL | EXTERNAL | | | Total | performed at [facility];[address] | | LAB | | | | [address];[place] | | | | | | [address] | | | | + + + + + + | ALP, | 55Comment: Testing | 35 - 115 U/L | EXTERNAL | | | External | performed at [facility];[address] | | LAB | | | | [address];[place] | | | | | | [address] | | | | + + + + + + | AST | 67 (H)Comment: Testing | 10 - 45 U/L | EXTERNAL | | | | performed at [facility];[address] | | LAB | | | | [address];[place] | | | | | | [address] | | | | + + + + + + | ALT | 26Comment: Testing | 10 - 65 U/L | EXTERNAL | | | | performed at [facility];[address] | | LAB | | | | [address];[place] | | | | | | [address] | | | | + + + [...] | | | | | | at [facility];[address];[place] [address] | | | | + + + [...] | | | Fingerstick | performed at [facility];[address] | | LAB | | | | [address];[place], [place] | | | | | | [address] | | | | + + + [...] EXTERNAL LAB | | Testing performed at [facility];[address] [place] [address];[place] [address] MRSA PCR | | | NEGATIVE Testing performed at | | | [facility];[address] [place] [address];[place] [address] | | + + + + +---------+ [...] EXTERNAL | | | | performed at [facility], [address] | | LAB | | | | [address], | | | | | | [place] [address] | | | | + + + + + -+ | RED CELL | 4.23Comment: Testing | 3.70 - 5.10 | EXTERNAL | | | COUNT | performed at [facility], [address] | M/uL | LAB | | | | [address], | | | | | | [place] [address] | | | | + + + + + -+ | Hgb | 12.8Comment: Testing | 11.3 - 15.5 | EXTERNAL | | | | performed at [facility], [address] | g/dL | LAB | | | | [address], | | | | | | [place] [address] | | | | + + + + + -+ | Hematocrit, | 40.4Comment: Testing | 34.0 - 46.0 % | EXTERNAL | | | POC | performed at [facility], [address] | | LAB | | | | [address], | | | | | | [place] [address] | | | | + + + + + -+ | MCV | 95.5Comment: Testing | 80.0 - 100.0 fl | EXTERNAL | | | | performed at [facility], [address] | | LAB | | | | [address], | | | | | | [place] [address] | | | | + + + + + -+ | MCH | 30.2Comment: Testing | 27.0 - 34.0 pg | EXTERNAL | | | | performed at [facility], [address] | | LAB | | | | [address], | | | | | | [place] [address] | | | | + + + + + -+ | MCHC | 31.6 (L)Comment: Testing | 32.0 - 35.5 | EXTERNAL | | | | performed at [facility], [address] | g/dL | LAB | | | | [address], | | | | | | [place] [address] | | | | + + + + + -+ | RDW-CV | 44.2Comment: Testing | 37 - 53 fl | EXTERNAL | | | | performed at [facility], [address] | | LAB | | | | [address], | | | | | | [place] [address] | | | | + + + + + -+ | Platelet | 214Comment: Testing | 150 - 400 K/uL | EXTERNAL | | | Count | performed at [facility], [address] | | LAB | | | Plasma | [address], | | | | | | [place] [address] | | | | + + + + + -+ | MPV | 8.2Comment: Testing | fl | EXTERNAL | | | | performed at [facility], [address] | | LAB | | | | [address], | | | | | | [place] [address] | | | | + + + + + -+ | Differentia | AUTOMATEDComment: | | EXTERNAL | | | l Type | Testing performed at | | LAB | | | | [facility], [address] | | | | | | [place] | | | | | | [address] | | | | + + + + + -+ | % Segmented | 54.0Comment: Testing | % | EXTERNAL | | | | performed at [facility], [address] | | LAB | | | Neutrophils | [address], | | | | | | [place] [address] | | | | + + + + + -+ | % | 28.3Comment: Testing | % | EXTERNAL | | | Lymphocytes | performed at [facility], [address] | | LAB | | | | [address], | | | | | | [place] [address] | | | | + + + + + -+ | % Monocytes | 11.7Comment: Testing | % | EXTERNAL | | | | performed at [facility], [address] | | LAB | | | [address], | | | | | | [place] [address] | | | | + + + + + -+ | % | 4.9Comment: Testing | % | EXTERNAL | | | Eosinophils | performed at [facility], [address] | | LAB | | | | [address], | | | | | | [place] [address] | | | | + + + + + -+ | % Basophils | 1.1Comment: Testing | % | EXTERNAL | | | | performed at [facility], [address] | | LAB | | | [address], | | | | | | [place] [address] | | | | + + + + + -+ | Absolute | 6.4Comment: Testing | 1.9 - 7.4 K/uL | EXTERNAL | | | Segmented | performed at [facility], [address] | | LAB | | | Neutrophils | [address], | | | | | | [place] [address] | | | | + + + + + -+ | Absolute | 3.3Comment: Testing | 1.0 - 3.9 K/uL | EXTERNAL | | | Lymphocytes | performed at [facility], [address] | | LAB | | | | [address], | | | | | | [place] [address] | | | | + + + + + -+ | Absolute | 1.4 (H)Comment: Testing | 0 - 0.8 K/uL | EXTERNAL | | | Monocytes | performed at [facility], [address] | | LAB | | | | [address], | | | | | | [place] [address] | | | | + + + + + -+ | Absolute | 0.6 (H)Comment: Testing | 0 - 0.5 K/uL | EXTERNAL | | | Eosinophils | performed at [facility], [address] | | LAB | | | | [address], | | | | | | [place] [address] | | | | + + + + + -+ | Absolute | 0.1Comment: Testing | 0 - 0.1 K/uL | EXTERNAL | | | Basophils | performed at [facility], [address] | | LAB | | | | [address], | | | | | | [place] [address] | | | | + + + + + -+ | Na | 133 (L)Comment: Testing | 135 - 143 | EXTERNAL | | | | performed at [facility], [address] | mmol/L | LAB | | | | [address], | | | | | | [place] [address] | | | | + + + + + -+ | K | 3.7Comment: Testing | 3.5 - 4.9 | EXTERNAL | | | | performed at [facility], [address] | mmol/L | LAB | | | | [address], | | | | | | [place] [address] | | | | + + + + + -+ | Cl | 105Comment: Testing | 99 - 109 mmol/L | EXTERNAL | | | | performed at [facility], [address] | | LAB | | | | [address], | | | | | | [place] [address] | | | | + + + + + -+ | CO2 | 25Comment: Testing | 23 - 32 mmol/L | EXTERNAL | | | | performed at [facility], [address] | | LAB | | | | [address], | | | | | | [place] [address] | | | | + + + + + -+ | Anion Gap | 7Comment: Testing | 5 - 20 mmol/L | EXTERNAL | | | | performed at [facility], [address] | | LAB | | | [address], | | | | | | [place] [address] | | | | + + + + + -+ | Glucose, | 177 (H)Comment: Testing | 65 - 99 mg/dL | EXTERNAL | | | Fasting | performed at [facility], [address] | | LAB | | | | [address], | | | | | | [place] [address] | | | | + + + + + -+ | BUN | 24Comment: Testing | 8 - 25 mg/dL | EXTERNAL | | | | performed at [facility], [address] | | LAB | | | | [address], | | | | | | [place] [address] | | | | + + + + + -+ | Creatinine | 1.24 (H)Comment: Testing | 0.50 - 1.00 | EXTERNAL | | | | performed at [facility], [address] | mg/dL | LAB | | | | [address], | | | | | | [place] [address] | | | | + + + + + -+ | BUN/Creatin | 19Comment: Testing | | EXTERNAL | | | ine Ratio | performed at [facility], [address] | | LAB | | | | [address], | | | | | | [place] [address] | | | | + + + + + -+ | Calcium | 9.4Comment: Testing | 8.5 - 10.2 | EXTERNAL | | | | performed at [facility], [address] | mg/dL | LAB | | | | [address], | | | | | | [place] [address] | | | | + + + + + -+ | Protein, | 6.5Comment: Testing | 6.3 - 8.2 g/dL | EXTERNAL | | | Total | performed at [facility], [address] | | LAB | | | | [address], | | | | | | [place] [address] | | | | + + + + + -+ | Albumin | 3.9Comment: Testing | 3.3 - 4.8 g/dL | EXTERNAL | | | | performed at [facility], [address] | | LAB | | | | [address], | | | | | | [place] [address] | | | | + + + + + -+ | Globulin | 2.6Comment: Testing | 1.3 - 4.9 g/dL | EXTERNAL | | | | performed at [facility], [address] | | LAB | | | | [address], | | | | | | [place] [address] | | | | + + + + + -+ | A/G Ratio | 1.5Comment: Testing | 1.0 - 2.4 | EXTERNAL | | | | performed at [facility], [address] | | LAB | | | [address], | | | | | | [place] [address] | | | | + + + + + -+ | Bilirubin | 0.5Comment: Testing | 0.1 - 1.5 mg/dL | EXTERNAL | | | Total | performed at [facility], [address] | | LAB | | | | [address], | | | | | | [place] [address] | | | | + + + + + -+ | ALP, | 50Comment: Testing | 35 - 115 U/L | EXTERNAL | | | External | performed at [facility], [address] | | LAB | | | | [address], | | | | | | [place] [address] | | | | + + + + + -+ | AST | 62 (H)Comment: Testing | 10 - 45 U/L | EXTERNAL | | | | performed at [facility], [address] | | LAB | | | | [address], | | | | | | [place] [address] | | | | + + + + + -+ | ALT | 19Comment: Testing | 10 - 65 U/L | EXTERNAL | | | | performed at [facility], [address] | | LAB | | | | [address], | | | | | | [place] [address] | | | | + + + [...] | | | | | | at [facility], [address] | | | | | | [address] [facility], | | | | | | [place] [address] | | | | + + + + + -+ | CK, Total | 384 (H)Comment: Testing | 30 - 240 U/L | EXTERNAL | | | | performed at [facility];[address] | | LAB | | | | [address] [facility];[place], [place] | | | | | | [address] | | | | + + + [...] | | | | | performed at [facility];[address] | | | | | | [address];[place] | | | | | | [address] | | | | + + + + + -+ | aPTT, | 44 (H)Comment: Testing | 23 - 32 seconds | EXTERNAL | | | Patient | performed at [facility];[address] | | LAB | | | | [address];[place] | | | | | | [address] | | | | + + + + + -+ | CK-MB | 48.3 (H)Comment: Testing | 0.5 - 3.6 ng/mL | EXTERNAL | | | | performed at [facility];[address] | | LAB | | | | [address];[place] | | | | | | [address] | | | | + + + [...] EXTERNAL | | | | performed at [facility];[address] | | LAB | | | | [address];[place], [place] | | | | | | [address] | | | | + + + [...] | | | Patient | performed at [facility];[address] | | LAB | | | | [address] [facility];[place], [place] | | | | | | [address] | | | | + + + [...] | | | | | performed at [facility];[address] | | | | | | [address];[place], [place] | | | | | | [address] | | | | + + + [...] EXTERNAL | | | | performed at [facility];[address] | | LAB | | | | [address];[place] | | | | | | [address] | | | | + + + + + + | RED CELL | 4.22Comment: Testing | 3.70 - 5.10 | EXTERNAL | | | COUNT | performed at [facility];[address] | M/uL | LAB | | | | [address];[place] | | | | | | [address] | | | | + + + + + + | Hgb | 13.4Comment: Testing | 11.3 - 15.5 | EXTERNAL | | | | performed at [facility];[address] | g/dL | LAB | | | | [address];[place] | | | | | | [address] | | | | + + + + + + | Hematocrit, | 38.7Comment: Testing | 34.0 - 46.0 % | EXTERNAL | | | POC | performed at [facility];[address] | | LAB | | | | [address];[place] | | | | | | [address] | | | | + + + + + + | MCV | 91.7Comment: Testing | 80.0 - 100.0 fl | EXTERNAL | | | | performed at [facility];[address] | | LAB | | | | [address];[place] | | | | | | [address] | | | | + + + + + + | MCH | 31.8Comment: Testing | 27.0 - 34.0 pg | EXTERNAL | | | | performed at [facility];[address] | | LAB | | | | [address];[place] | | | | | | [address] | | | | + + + + + + | MCHC | 34.7Comment: Testing | 32.0 - 35.5 | EXTERNAL | | | | performed at [facility];888 | g/dL | LAB | | | | [address];[place] | | | | | | [address] | | | | + + + + + + | RDW-CV | 42.9Comment: Testing | 37 - 53 fl | EXTERNAL | | | | performed at [facility];[address] | | LAB | | | | [address];[place] | | | | | | [address] | | | | + + + + + + | Platelet | 238Comment: Testing | 150 - 400 K/uL | EXTERNAL | | | Count | performed at [facility];888 | | LAB | | | Plasma | [address];[place] | | | | | | [address] | | | | + + + + + + | MPV | 8.0Comment: Testing | fl | EXTERNAL | | | | performed at [facility];[address] | | LAB | | | | [address];[place] | | | | | | [address] | | | | + + + + + + | Differentia | AUTOMATEDComment: | | EXTERNAL | | | l Type | Testing performed at | | LAB | | | | [facility];[address] | | | | | | [address];[place] [address] | | | | + + + + + + | % Segmented | 49.1Comment: Testing | % | EXTERNAL | | | | performed at [facility];888 | | LAB | | | Neutrophils | [address];[place] | | | | | | [address] | | | | + + + + + + | % | 34.0Comment: Testing | % | EXTERNAL | | | Lymphocytes | performed at [facility];[address] | | LAB | | | | [address];[place] | | | | | | [address] | | | | + + + + + + | % Monocytes | 11.9Comment: Testing | % | EXTERNAL | | | | performed at [facility];[address] | | LAB | | | | [address];[place] | | | | | | [address] | | | | + + + + + + | % | 4.3Comment: Testing | % | EXTERNAL | | | Eosinophils | performed at [facility];[address] | | LAB | | | | [address];[place] | | | | | | [address] | | | | + + + + + + | % Basophils | 0.7Comment: Testing | % | EXTERNAL | | | | performed at [facility];[address] | | LAB | | | | [address];[place] | | | | | | [address] | | | | + + + + + + | Absolute | 5.2Comment: Testing | 1.9 - 7.4 K/uL | EXTERNAL | | | Segmented | performed at [facility];[address] | | LAB | | | Neutrophils | [address];[place] | | | | | | [address] | | | | + + + + + + | Absolute | 3.6Comment: Testing | 1.0 - 3.9 K/uL | EXTERNAL | | | Lymphocytes | performed at [facility];[address] | | LAB | | | | [address];[place] | | | | | | [address] | | | | + + + + + + | Absolute | 1.3 (H)Comment: Testing | 0 - 0.8 K/uL | EXTERNAL | | | Monocytes | performed at [facility];[address] | | LAB | | | | [address];[place] | | | | | | [address] | | | | + + + + + + | Absolute | 0.5Comment: Testing | 0 - 0.5 K/uL | EXTERNAL | | | Eosinophils | performed at [facility];[address] | | LAB | | | | [address];[place] | | | | | | [address] | | | | + + + + + + | Absolute | 0.1Comment: Testing | 0 - 0.1 K/uL | EXTERNAL | | | Basophils | performed at [facility];[address] | | LAB | | | | [address];[place], [place] | | | | | | [address] | | | | + + + [...] EXTERNAL | | | | performed at [facility] | | LAB | | | | [address];[place] | | | | | | [address] | | | | + + + [...] EXTERNAL | | | | performed at [facility];888 | mmol/L | LAB | | | | [address];[place] | | | | | | [address] | | | | + + + + + + | K | 4.0Comment: Testing | 3.5 - 4.9 | EXTERNAL | | | | performed at [facility];888 | mmol/L | LAB | | | | [address];[place] | | | | | | [address] | | | | + + + + + + | Cl | 109Comment: Testing | 99 - 109 mmol/L | EXTERNAL | | | | performed at [facility];[address] | | LAB | | | | [address];[place] | | | | | | [address] | | | | + + + + + + | CO2 | 23Comment: Testing | 23 - 32 mmol/L | EXTERNAL | | | | performed at [facility];[address] | | LAB | | | | [address];[place] | | | | | | [address] | | | | + + + + + + | Anion Gap | 13Comment: Testing | 5 - 20 mmol/L | EXTERNAL | | | | performed at [facility];[address] | | LAB | | | | [address];[place] | | | | | | [address] | | | | + + + + + + | Glucose, | 111 (H)Comment: Testing | 65 - 99 mg/dL | EXTERNAL | | | Fasting | performed at [facility];[address] | | LAB | | | | [address];[place] | | | | | | [address] | | | | + + + + + + | BUN | 23Comment: Testing | 8 - 25 mg/dL | EXTERNAL | | | | performed at [facility];[address] | | LAB | | | | [address];[place] | | | | | | [address] | | | | + + + + + + | Creatinine | 1.08 (H)Comment: Testing | 0.50 - 1.00 | EXTERNAL | | | | performed at [facility];888 | mg/dL | LAB | | | | [address];[place] | | | | | | [address] | | | | + + + + + + | BUN/Creatin | 21Comment: Testing | | EXTERNAL | | | ine Ratio | performed at [facility];[address] | | LAB | | | | [address];[place] | | | | | | [address] | | | | + + + + + + | Calcium | 9.5Comment: Testing | 8.5 - 10.2 | EXTERNAL | | | | performed at [facility];888 | mg/dL | LAB | | | | [address];[place] | | | | | | [address] | | | | + + + + + + | Protein, | 6.8Comment: Testing | 6.3 - 8.2 g/dL | EXTERNAL | | | Total | performed at [facility];[address] | | LAB | | | | [address];[place] | | | | | | [address] | | | | + + + + + + | Albumin | 3.6Comment: Testing | 3.3 - 4.8 g/dL | EXTERNAL | | | | performed at [facility];[address] | | LAB | | | | [address];[place] | | | | | | [address] | | | | + + + + + + | Globulin | 3.2Comment: Testing | 1.3 - 4.9 g/dL | EXTERNAL | | | | performed at [facility];[address] | | LAB | | | | [address];[place] | | | | | | [address] | | | | + + + + + + | A/G Ratio | 1.1Comment: Testing | 1.0 - 2.4 | EXTERNAL | | | | performed at [facility];[address] | | LAB | | | | [address];[place] | | | | | | [address] | | | | + + + + + + | Bilirubin | 0.5Comment: Testing | 0.1 - 1.5 mg/dL | EXTERNAL | | | Total | performed at [facility];[address] | | LAB | | | | [address];[place] | | | | | | [address] | | | | + + + + + + | ALP, | 62Comment: Testing | 35 - 115 U/L | EXTERNAL | | | External | performed at [facility];[address] | | LAB | | | | [address];[place] | | | | | | [address] | | | | + + + + + + | AST | 63 (H)Comment: Testing | 10 - 45 U/L | EXTERNAL | | | | performed at [facility];[address] | | LAB | | | | [address];[place] | | | | | | [address] | | | | + + + + + + | ALT | 27Comment: Testing | 10 - 65 U/L | EXTERNAL | | | | performed at [facility];[address] | | LAB | | | | [address];[place] | | | | | | [address] | | | | + + + [...] | | | | | | at [facility];[address] | | | | | | [facility];[place] [address] | | | | + + + [...] of unspecified type of vessel, | | [place] or graft | + + documented in this encounter
--- OUTSIDE RECORDS SUMMARY | ~2019-03-06 | XMS | Encounter Summary ---
Demographics + + + | Address | [address] | | | [place] [address] | + + + | Home Phone | | + + + | Preferred Language | Unknown | + + + | Marital Status | | + + + | Protestant Affiliation | 1041 | + + + [...] [place], [place] | | | | | [address] | | + + + + + | Rivka Palma | ECON | Unknown | | + + + + + | Geno Kendall | ECON | Unknown | | + + + + + Care Team Providers + +------+ + | Care Education Coordinator Name | Role | Phone | + +------+ + PCP | Unavailable | + +------+ + Encounter Details +--------+ + + + + | Date | Type | Department | Care Team | Description | +--------+ + + + + | 09/08/ | [facility] | [facility] | Brandon Terry | | | 2008 | Encounter | MED CTR GENERIC OP | [address], [address] | | | | | CONV DEPT [address] | [place], [place] | | | | | [place], | [address] | | | | | [place] [address] | | | | | | [phone] | | | +--------+ + + + [...] [place] | | | | | | [address] | | | | | | | [...] [place] | | | | | | [address] | | | | | | | | +--------+ + + + + documented as of this encounter Visit Diagnoses Not on filedocumented in this encounter"
--- OUTSIDE RECORDS SUMMARY | ~2019-03-06 | XMS | Encounter Summary ---
Demographics + + + | Address | [address] | | | [place] [address] | + + + | Home Phone [...] [place], [place] | | | | | [address] | | + + + + + | Rivka Palma | ECON | Unknown | | + + + + + | Geno Kendall | ECON | Unknown | | + + + + + Care Team Providers + +------+ + | Care Profiling Machine Set Up Operator Tool Name | Role | Phone | + +------+ + | Lorenzo Valdes MD | PCP | | + +------+ + Encounter Details +--------+ + + + + | Date | Type | Department | Care Team | Description | +--------+ + + + + | 12/26/ | Orders Only | [facility] | Lorenzo Valdes | | | 2014 | | NEPHROLOGY CAT[place] | MD [address] | | | | | [address] | [facility] | | | | | [address] [place] [address] | [place] | | | | | [address] | [address] | | | | | [phone] | | | | | | | [...] [place] | | | | | | [address] | | | | | | | [...] [place] | | | | | | [address] | | | | | | | | +--------+ + + + + documented as of this encounter Procedures + +--------+ + + + | Procedure Name | Priori | Date/Time | Associated Diagnosis | Comments | | | ty | | | | + +--------+ + + + | EXTERNAL LAB: CBC | Routin | 12/26/2014 | | Results for this | | | e | 12:00 AM | | procedure are in the | | | | PDT | | results section. | + +--------+ + + + | LIPID PANEL | Routin | 12/26/2014 | | Results for this | | | e | 12:00 AM | | procedure are in the | | | | PDT | | results section. | + +--------+ + + + | URINALYSIS, | Routin | 12/26/2014 | | Results for this | | MICROSCOPIC ONLY | e | 12:00 AM | | procedure are in the | | | | PDT | | results section. | + +--------+ + + + | MICROALBUMIN/CREATIN | Routin | 12/26/2014 | | Results for this | | INE RATIO, URINE | e | 12:00 AM | | procedure are in the | | TEST | | PDT | | results section. | + +--------+ + + + | TSH | Routin | 12/26/2014 | | Results for this | | | e | 12:00 AM | | procedure are in the | | | | PDT | | results section. | + +--------+ + + + | T4, FREE | Routin | 12/26/2014 | | Results for this | | | e | 12:00 AM | | procedure are in the | | | | PDT | | results section. | + +--------+ + + + | COMPREHENSIVE | Routin | 12/26/2014 | | Results for this | | METABOLIC PANEL | e | 12:00 AM | | procedure are in the | | | | PDT | | results section. | + +--------+ + + + documented in this encounter Results Microalbumin/Creatinine Ratio, Urine (12/26/2014 12:00 AM PDT) + +-------+ + + + | Component | Value | Ref Range | Performed | Pathologist | | | | | At | Signature | + +-------+ + + + | ALBUMIN/CRE | 9.1 | 0 - 30 | EXTERNAL | | | ATININE | | | LAB | | | RATIO.URINE | | | | | | .ORD.MG/G | | | | | | (MIKO) | | | | | | | [...] + +---------+ + + Urinalysis, Microscopic Only (12/26/2014 12:00 AM PDT) + + + + [...] + + + + | Specific | 1.017 | 1.005 - 1.030 | EXTERNAL | | | [place] | | | LAB | | + [...] + +---------+ + + External Lab: CBC (12/26/2014 12:00 AM PDT) + +-------+ + + + | Component | Value | Ref Range | Performed | Pathologist | | | | | At | Signature | + +-------+ + + + | WBC | 9.6 | 4.5 - 11.0 10 | EXTERNAL | | | | | | LAB | | + +-------+ + + + | RED CELL | 4.62 | 3.8 - 5.1 10 | EXTERNAL | | | COUNT | | | LAB | | + +-------+ + + + | Hgb | 14.2 | 12.0 - 16.0 | EXTERNAL | | | | | g/dL | LAB | | + +-------+ + + + | Hematocrit, | 43.0 | 35 - 45 % | EXTERNAL | | | POC | | | LAB | | + +-------+ + + + | MCV | 93.0 | 81 - 99 fL | EXTERNAL | | | | | | LAB | | + +-------+ + + + | MCH | 31 | 27 - 33 pg | EXTERNAL | | | | | | LAB | | + +-------+ + + + | MCHC | 33 | 30 - 36 g/dL | EXTERNAL | | | | | | LAB | | + +-------+ + + + | Platelet | 200 | 140 - 440 K/ L | EXTERNAL | | | Count | | | LAB | | | Plasma | | | | | + +-------+ + + + | RDW-CV | 14.3 | 10.5 - 15.0 % | EXTERNAL | | | | | | LAB | | + +-------+ + + + | MPV | | fL | EXTERNAL | | | | | | LAB | | + +-------+ + + + | Differentia | Auto | | EXTERNAL | | | l Type | | | LAB | | + +-------+ + + + | % Segmented | 62.1 | 39 - 80 % | EXTERNAL | | | | | | LAB | | | Neutrophils | | | | | + +-------+ + + + | % | 27.1 | 24 - 44 % | EXTERNAL | | | Lymphocytes | | | LAB | | + +-------+ + + + | % Monocytes | 10.1 | 0 - 12 % | EXTERNAL | | | | | | LAB | | + +-------+ + + + | % | 0.4 | 0 - 6 % | EXTERNAL | | | Eosinophils | | | LAB | | + +-------+ + + + | % Basophils | 0.3 | 0 - 2 % | EXTERNAL [...] | | + +---------+ + + TSH (12/26/2014 12:00 AM PDT) + +-------+ + + + | Component | Value | Ref Range | Performed | Pathologist | | | | | At | Signature | + +-------+ + + + | TSI | 1.63 | 0.270 - 4.20 | EXTERNAL | [...] | + +---------+ + + T4, Free (12/26/2014 12:00 AM PDT) + +-------+ + + + | Component | Value | Ref Range | Performed | Pathologist | | | | | At | Signature | + +-------+ + + + | FREE T4 | 1.59 | 0.71 - 1.7 | EXTERNAL | | | [...] | + +---------+ + + Lipid Panel (12/26/2014 12:00 AM PDT) + +---------+ + + + | Component | Value | Ref Range | Performed | Pathologist | | | | | At | Signature | + +---------+ + + + | Cholesterol | 200 | 200 mg/dL | EXTERNAL | | | | | | LAB | | + +---------+ + + + | Triglycerid | 165 (A) | 30 - 150 mg/dL | EXTERNAL | | | es | | | LAB | | + +---------+ + + + | HDL | 66.6 | 40 mg/dl | EXTERNAL | | | | | | LAB | | + +---------+ + + + | LDL | 100 | 100 mg/dL | EXTERNAL | | [...] +---------+ + + + | Chol/HDL | 3.0 | 4.44 | EXTERNAL | | | Ratio | | | LAB | | + +---------+ + + + | VLDL | 33 | 4 - 40 mg/dL | EXTERNAL | | | | | | LAB | | + +---------+ + + + | Non HDL | 133 (A) | 130 | EXTERNAL | | | [...] + +---------+ + + Comprehensive Metabolic Panel (12/26/2014 12:00 AM PDT) + + + + + + | Component | Value | Ref Range | Performed | Pathologist | | | | | At | Signature | + + + + + + | Glucose, | 136 (A) | 70 - 100 mg/dL | EXTERNAL | | | Fasting | | | LAB | | + + + + + + | BUN | 52 (A) | 6 - 23 mg/dL | EXTERNAL | | | | | | LAB | | + + + + + + | Creatinine | 1.51 (A) | 0.70 - 1.11 | EXTERNAL | | | | | mg/dL | LAB | | + + + + + + | BUN/Creatin | 34.4 (A) | 6.0 - 28.6 | EXTERNAL | | | ine Ratio | | | LAB | | + + + + + + | Calcium | 10.1 | 8.4 - 10.2 | EXTERNAL | | | | | mg/dL | LAB | | + + + + + + | Protein, | 7.5 | 6.0 - 8.0 g/dL | EXTERNAL | | | Total | | | LAB | | + + + + + + | Albumin | 4.5 | 3.5 - 5.0 | EXTERNAL | | | | | | LAB | | + + + + + + | Globulin | 3.0 | 1.8 - 3.5 | EXTERNAL | [...] + + + + | ALP, | 85 | 30 - 128 | EXTERNAL | | | External | | | LAB | | + + + + + + | ALT | 10 | 7 - 52 U/L | EXTERNAL | | | | | | LAB | | + + + + + + | AST | 17 | 13 - 39 | EXTERNAL | | | | | | LAB | | + + + + + + | Na | 138 | 132 - 143 | EXTERNAL | | | | | mmol/L | LAB | | + + + + + + | K | 4.5 | 3.6 - 5.1 | EXTERNAL | [...] + + + | Anion Gap | 19.5 | 7 - 21 mmol/L | EXTERNAL | | | | | | LAB | | + + + + + + | Estimated | 33 (A) | 60 - 140 mg/dL | EXTERNAL | | | GFR [...]
--- OUTSIDE RECORDS SUMMARY | ~2019-03-06 | XMS | Encounter Summary ---
Demographics + + + | Address | [address] | | | [place] [address] | + + + | Home Phone [...] [place], [place] | | | | | [address] | | + + + + + | Rivka Palma | ECON | Unknown | | + + + + + | Geno Kendall | ECON | Unknown | | + + + + + Care Team Providers + +------+ + | Care Vice President Of Manufacturing Name | Role | Phone | + +------+ + | Lorenzo Valdes MD | PCP | | + +------+ + Encounter Details +--------+ + + + + | Date | Type | Department | Care Team | Description | +--------+ + + + + | 12/24/ | Orders Only | [facility] | Allan Mar, | | | 2017 | | NEPHROLOGY [facility] | SENIOR C DEVELOPER [address] | | | | | [address] | [address] | | | | | [address] [place], [place] | [place] | | | | | [address] | [address] | | | | | [phone] | | | | | | | [...] [place] | | | | | | [address] | | | | | | | [...] [place] | | | | | | [address] | | | | | | | [...] | | | LAB | | | [place] | | | | | + +---------+ [...]
--- OUTSIDE RECORDS SUMMARY | ~2019-03-06 | XMS | Encounter Summary ---
Demographics + + + | Address | [address] | | | [place] [address] | + + + | Home Phone | | + + + | Preferred Language | Unknown | + + + | Marital Status | | + + + | Latter-Day Affiliation | 1041 | + + + | Race | Unknown | + + + | Ethnic Group | Unknown | + + + Author + + + | Author | [facility] | | | and [place] | + + + | Organization | [facility] | | | [...] [place], [place] | | | | | [address] | | + + + + + | Rivka Palma | ECON | Unknown | | + + + + + | Geno Kendall | ECON | Unknown | | + + + + + Care Team Providers + +------+ + | Care Manager Public Name | Role | Phone | + +------+ + | Lorenzo Valdes MD | PCP | | + +------+ + Encounter Details +--------+ + + + + | Date | Type | Department | Care Team | Description | +--------+ + + + + | 11/02/ | Orders Only | [facility] | Provider, | Chronic kidney | | 2019 | | SYSTEM GENERIC OP | MD [address] | disease, stage III | | | | CONVERSION [address] | [address] | (moderate) ([facility]); | | | | [address] [place], [place] | [place] [address] | Presence of | | | | [address] | | aortocoronary bypass | | | | [phone] | | graft; Essential | | | | | | (primary) | | | | | | hypertension; | | | | | | Presence of | | | | | | automatic | | | | | | implantable | | | | | | cardioverter-defibri | | | | | | llator; | | | | | | Atherosclerosis of | | | | | | coronary artery | | | | | | bypass graft(s), | | | | | | unspecified, with | | | | | | other forms of | | | | | | angina pectoris | | | | | | ([facility]) | +--------+ + + + + Social [...] 2018 | Visit | | MD Lucila IWGGINS | | | | | | [place] | | | | | | [address] | | | | | | | | +--------+ + + + + | 03/23/ | Procedure | Cardiology | | | | 2018 | visit | | | | +--------+ + + + + | 08/09/ | Office | Pulmonology | Td Mondragon MD | | | 2019 | Visit | | [address] | | | | | | [place] | | | | | | [address] | | | | | | | | +--------+ + + + + + +------+--------+ + + | Name | Type | Priori | Associated Diagnoses | Order Schedule | | | | ty | | | + +------+--------+ + + | Basic Metabolic | Lab | Routin | Chronic kidney | Expected: | | Panel | | e | disease, stage III | 06/23/2018, Expires: | | | | | (moderate) (HCC) | 06/23/2019 | | | | | Presence of | | | | | | aortocoronary bypass | | | | | | graft Essential | | | | | | (primary) | | | | | | hypertension | | | | | | Presence of | | | | | | automatic | | | | | | implantable | | | | | | cardioverter-defibri | | | | | | llator | | | | | | Atherosclerosis of | | | | | | coronary artery | | | | | | bypass graft(s), | | | | | | unspecified, with | | | | | | other forms of | | | | | | angina pectoris | | | | | | (HCC) | | + +------+--------+ + + | Magnesium | Lab | Routin | Chronic kidney | Expected: | | | | e | disease, stage III | 06/23/2018, Expires: | | | | | (moderate) ([facility]) | 06/24/2019 | | | | | Presence of | | | | | | aortocoronary bypass | | | | | | graft Essential | | | | | | (primary) | | | | | | hypertension | | | | | | Presence of | | | | | | automatic | | | | | | implantable | | | | | | cardioverter-defibri | | | | | | llator | | | | | | Atherosclerosis of | | | | | | coronary artery | | | | | | bypass graft(s), | | | | | | unspecified, with | | | | | | other forms of | | | | | | angina pectoris | | | | | | ([facility]) | | + +------+--------+ + + documented as of this encounter Visit Diagnoses + + | Diagnosis | + + | Chronic kidney disease, stage III (moderate) (HCC) Chronic kidney disease, Stage III | | (moderate) | + + | 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
--- OUTSIDE RECORDS SUMMARY | ~2019-03-06 | XMS | Encounter Summary ---
Demographics + + + | Address | [address] | | | [place] [address] | + + + | Home Phone [...] [place], [place] | | | | | [address] | | + + + + + | Rivka Palma | ECON | Unknown | | + + + + + | Geno Kendall | ECON | Unknown | | + + + + + Care Team Providers + +------+ + | Care Document Control Associate Name | Role | Phone | + +------+ + | Lorenzo Valdes MD | PCP | | + +------+ + Encounter Details +--------+ + + + + | Date | Type | Department | Care Team | Description | +--------+ + + + + | 11/02/ | Orders Only | [facility] | Provider, | Chronic kidney | | 2019 | | SYSTEM GENERIC OP | MD [address] | disease, stage III | | | | CONVERSION [address] | [address] | (moderate) ([facility]); | | | | [address] [place], [place] | [place] [address] | Presence of | | | | [address] | | aortocoronary bypass | | | | [phone] | | graft; Essential | | | [...] | | | | | | ([facility]) | +--------+ + + + + Social [...] [place] | | | | | | [address] [...] [place] | | | | | | [address] | | | | | | | [...] | | | | | (moderate) ([facility]) | 06/24/2019 | | | | | [...] | | | | | | ([facility]) | | + +------+--------+ + + documented [...]
--- OUTSIDE RECORDS SUMMARY | ~2019-03-06 | XMS | Encounter Summary ---
Demographics + + + | Address | [address] | | | [place] [address] | + + + | Home Phone | | + + + | Preferred Language | Unknown | + + + | Marital Status | | + + + | Congregational Affiliation | 1041 | + + + | Race | Unknown | + + + | Ethnic Group | Unknown | + + + Author + + + | Author | [facility] | | | and [place] | + + + | Organization | [facility] | | | [...] [place], [place] | | | | | [address] | | + + + + + | Rivka Palma | ECON | Unknown | | + + + + + | Geno Kendall | ECON | Unknown | | + + + + + Care Team Providers + +------+ + | Care Environmental Research Scientist Name | Role | Phone | + +------+ + | Lorenzo Valdes MD | PCP | | + +------+ + Encounter Details +--------+ + + + + | Date | Type | Department | Care Team | Description | +--------+ + + + + | 04/30/ | Orders Only | [facility] | Allan Mar, | | | 2017 | | NEPRHOLOGY [place] | FLYING SHEAR OPERATOR [address] | | | | | [address] | [facility] | | | | | [address] [place], [place] | [place] | | | | | [address] | [address] | | | | | [phone] | [phone] | | | | | | | [...] [place] | | | | | | [address] | | | | | | | [...] [place] | | | | | | [address] | | | | | | | [...] | | | LAB | | | [place] | | | | | + +---------+ [...]
--- OUTSIDE RECORDS SUMMARY | ~2019-03-06 | XMS | Encounter Summary ---
Demographics + + + | Address | [address] | | | [place] [address] | + + + | Home Phone | | + + + | Preferred Language | Unknown | + + + | Marital Status | | + + + | Baptist Affiliation | 1041 | + + + [...] [place], [place] | | | | | [address] | | + + + + + | Rivka Palma | ECON | Unknown | | + + + + + | Geno Kendall | ECON | Unknown | | + + + + + Care Team Providers + +------+ + | Care Route Salesman Name | Role | Phone | + +------+ + | Lorenzo Valdes MD | PCP | | + +------+ + Encounter Details +--------+ + + + + | Date | Type | Department | Care Team | Description | +--------+ + + + + | 07/11/ | Orders Only | [facility] | Conversion | | | 2014 | | CARDIOLOGY MOBILE | Transaction, | | | | | [address] | Provider Unknown | | | | | [place], [place] | [phone] | | | | | [address] | | | | | | [phone] | | | +--------+ + + + [...] [place] | | | | | | [address] | | | | | | | [...] [place] | | | | | | [address] | | | | | | | | +--------+ + + + + documented as of this encounter Procedures + +--------+ + + + | Procedure Name | Priori | Date/Time | Associated Diagnosis | Comments | | | ty | | | | + +--------+ + + + | LIPID PANEL | Routin | 07/11/2014 | | Results for this | | | e | 8:41 AM | | procedure are in the | | | | PDT | | results section. | + +--------+ + + + | CK TOTAL | Routin | 07/11/2014 | | Results for this | | | e | 8:41 AM | | procedure are in the | | | | PDT | | results section. | + +--------+ + + + | COMPREHENSIVE | Routin | 07/11/2014 | | Results for this | | METABOLIC PANEL | e | 8:41 AM | | procedure are in the | | | | PDT | | results section. | + +--------+ + + + documented in this encounter Results CK Total (07/11/2014 8:41 AM PDT) + +-------+ + + + | Component | Value | Ref Range | Performed | Pathologist | | | | | At | Signature | + +-------+ + + + | CK, Total | 38 | 24 - 170 U/L | EXTERNAL [...] | + +---------+ + + Lipid Panel (07/11/2014 8:41 AM PDT) + +---------+ + + + | Component | Value | Ref Range | Performed | Pathologist | | | | | At | Signature | + +---------+ + + + | Cholesterol | 152 | 200 mg/dL | EXTERNAL | | | | | | LAB | | + +---------+ + + + | Triglycerid | 177 (A) | 30 - 150 mg/dL | EXTERNAL | | | es | | | LAB | | + +---------+ + + + | HDL | 54.5 | 40 mg/dl | EXTERNAL | | | | | | LAB | | + +---------+ + + + | LDL | 62 | 100 mg/dL | EXTERNAL | | [...] +---------+ + + + | Chol/HDL | 2.8 | 4.44 | EXTERNAL | | | Ratio | | | LAB | | + +---------+ + + + | VLDL | 35 | 4 - 40 mg/dL | EXTERNAL | | | | | | LAB | | + +---------+ + + + | Non HDL | 98 | 130 | EXTERNAL | | | [...] + +---------+ + + Comprehensive Metabolic Panel (07/11/2014 8:41 AM PDT) + +---------+ + + + | Component | Value | Ref Range | Performed | Pathologist | | | | | At | Signature | + +---------+ + + + | Glucose, | 117 (A) | 70 - 100 mg/dL | EXTERNAL | | | Fasting | | | LAB | | + +---------+ + + + | BUN | 28 (A) | 6 - 23 mg/dL | EXTERNAL | | | | | | LAB | | + +---------+ + + + | Creatinine | 1.07 | 0.70 - 1.11 | EXTERNAL | | | | | mg/dL | LAB | | + +---------+ + + + | BUN/Creatin | 26.2 | 6.0 - 28.6 | EXTERNAL | | | ine Ratio | | | LAB | | + +---------+ + + + | Calcium | 9.4 | 8.4 - 10.2 | EXTERNAL | | | | | mg/dL | LAB | | + +---------+ + + + | Protein, | 6.3 | 6.0 - 8.0 g/dL | EXTERNAL [...] +---------+ + + + | Bilirubin | 0.5 | 0.0 - 1.2 mg/dL | EXTERNAL | | | Total | | | LAB | | + +---------+ + + + | ALP, | 82 | 30 - 128 | EXTERNAL | | | External | | | LAB | | + +---------+ + + + | ALT | 10 | 7 - 52 U/L | EXTERNAL | | | | | | LAB | | + +---------+ + + + | AST | 15 | 13 - 39 U/L | EXTERNAL | | | | | | LAB | | + +---------+ + + + | Na | 141 | 132 - 143 | EXTERNAL | | | | | mmol/L | LAB | | + +---------+ + + + | K | 3.6 | 3.6 - 5.1 | EXTERNAL | | | | | mmol/L | LAB | | + +---------+ + + + | Cl | 104 | 95 - 112 mmol/L | EXTERNAL | | | | | | LAB | | + +---------+ + + + | CO2 | 23 | 19 - 31 mmol/L | EXTERNAL | | | | | | LAB | | + +---------+ + + + | Anion Gap | 17.6 | 7 - 21 mmol/L | EXTERNAL | | | | | | LAB | | + +---------+ + + + | Estimated | 49 (A) | 60 mg/dL | EXTERNAL | [...]
--- OUTSIDE RECORDS SUMMARY | ~2019-03-06 | XMS | Encounter Summary ---
Demographics + + + | Address | [address] | | | [place] [address] | + + + | Home Phone [...] [place] | | | | | [address] | | + + + + + | Rivka Palma | ECON | Unknown | | + + + + + | Geno Kendall | ECON | Unknown | | + + + + + Care Team Providers + +------+ + | Care Transport Company Manager Name | Role | Phone | + +------+ + | Carmen Schultz MD | PCP | | + +------+ + Reason for Visit + + + | Reason | Comments | + + + | Medication Refill | | | Assistance | | + + + Encounter Details +--------+ + + + + | Date | Type | Department | Care Team | Description | +--------+ + + + + | 12/09/ | Telephone | [facility] | Td Mondragon MD | Medication Refill | | 2019 | | PULMONOLOGY [address] | [address] | Assistance | | | | [address] | [place], [place] | | | | | [place], [place] | [address] | | | | | [address] | | | | | | [phone] | | | +--------+ + + + [...] [place] | | | | | | [address] | | | | | | | [...] [place] | | | | | | [address] | | | | | | | | +--------+ + + + + documented as of this encounter Visit Diagnoses Not on filedocumented in this encounter"
--- OUTSIDE RECORDS SUMMARY | ~2019-03-06 | XMS | Encounter Summary ---
Demographics + + + | Address | [address] | | | [place] [address] | + + + | Home Phone | | + + + | Preferred Language | Unknown | + + + | Marital Status | | + + + | Faith Affiliation | 1041 | + + + | Race | Unknown | + + + | Ethnic Group | Unknown | + + + Author + + + | Author | [facility] | | | and [place] | + + + | Organization | [facility] | | [...] [place], [place] | | | | | [address] | | + + + + + | Rivka Palma | ECON | Unknown | | + + + + + | Geno Kendall | ECON | Unknown | | + + + + + Care Team Providers + +------+ + | Care Liquor Gallery Operator Name | Role | Phone | + +------+ + | Lorenzo Valdes MD | PCP | | + +------+ + Encounter Details +--------+ + + + + | Date | Type | Department | Care Team | Description | +--------+ + + + + | 12/26/ | Orders Only | [facility] | Lorenzo Valdes | | | 2014 | | NEPHROLOGY CATHRYN | MD [address] | | | | | [address] | [facility] | | | | | [address] [place] [address] | [place] | | | | | [address] | [address] | | | | | [phone] | [phone] | | | | | | | [...] [place] | | | | | | [address] | | | | | | | | +--------+ + + + + | 03/23/ | Procedure | Cardiology | | | | 2018 | visit | | | | +--------+ + + + + | 08/09/ | Office | Pulmonology | Td Mondragon MD | | | 2019 | Visit | | [address] | | | | | | [place] | | | | | | [address] | | | | | | | [...] - 1.030 | EXTERNAL | | | [place] | | | LAB | | + [...]
--- OUTSIDE RECORDS SUMMARY | ~2019-03-06 | XMS | Encounter Summary ---
Demographics + + + | Address | [address] | | | [place] [address] | + + + | Home Phone [...] [place], [place] | | | | | [address] | | + + + + + | Rivka Palma | ECON | Unknown | | + + + + + | Geno Kendall | ECON | Unknown | | + + + + + Care Team Providers + +------+ + | Care Cane Flume Watchman Name | Role | Phone | + [...] Description | +--------+--------+ + + + | 06/26/ | Refill | [facility] | Brandno Terry | Medication Refill | | 2014 | | PULMONARY [address] | [place] [address] [address] | | | | | [place], | [place], [place] | | | | | [place] [address] | [address] | | | | | [phone] | | | +--------+--------+ + + + [...] [place] | | | | | | [address] | | | | | | | [...] [place] | | | | | | [address] | | | | | | | | +--------+ + + + + documented as of this encounter Visit Diagnoses Not on filedocumented in this encounter"
--- OUTSIDE RECORDS SUMMARY | ~2019-03-06 | XMS | Encounter Summary ---
Demographics + + + | Address | [address] | | | [place] [address] | + + + | Home Phone [...] [place] | | | | | [address] | | + + + + + | Rivka Palma | ECON | Unknown | | + + + + + | Geno Kednall | ECON | Unknown | | + + + + + Care Team Providers + +------+ + | Care Solution Spec Name | Role | Phone | [...] + | 02/08/ | Office | [facility] | Td Mondragon MD | Moderate persistent | | 2019 | Visit | PULMONOLOGY [address] | [address] | asthma, unspecified | | | | [address] | [place], [place] | whether complicated | | | | [place] | [address] | (Primary Dx); | | | | [address] | | Ischemic | | | | [phone] | | cardiomyopathy; | | | | [...] History: Diagnosis Date Acute kidney injury ([facility]) 09/30/2013 Allergic rhinitis Asthma Bronchiectasis ([facility]) CAD (coronary artery disease) 09/13/2013 s/p CABG x5 (HANSON to mid LAD and distal LAD, SVG to RI, SVG to OM, SVG to PDA) 11/24 COPD (chronic obstructive pulmonary disease) ([facility]) Diabetes mellitus, type 2 ([facility]) Diabetes mellitus, type 2 ([facility]) Hypercholesterolemia Hyperlipidemia Hypertension Hypokalemia 10/18/2013 Hypothyroidism Ischemic cardiomyopathy Left bundle branch block Non-ST elevated myocardial infarction (non-STEMI) ([facility]) 12/08/2013 Osteoarthritis Pneumonia Status post internal cardiac [...] - CELSO; Surgeon: Niraj Celis MD; Location: [facility]; Service: Card iac; Laterality: N/A; HIP SURGERY HYSTERECTOMY HYSTERECTOMY partial OTHER SURGICAL HISTORY CATARACT EXTRACTION OTHER SURGICAL HISTORY Left 12/09/2013 INTERNAL MAMMARY ARTERIAL HARVEST - Procedure: INTERNAL MAMMARY ARTERIAL HARVEST; Surgeon : Niraj Celis MD; Location: [facility]; Service: Cardiac; Laterality: Left; OTHER SURGICAL HISTORY Right 12/09/2013 ENDOVASCULAR VEIN HARVEST - Procedure: VEIN - ENDOVASCULAR VEIN HARVEST; Surgeon: Niraj waters MD; Location: [facility]; Service: Cardiac; Laterality: Right; OTHER SURGICAL HISTORY UNLISTED PROCEDURE ARTHROSCOPY - Screws in Right hip OTHER SURGICAL HISTORY HARDWARE PRESENT - screws in right hip PACEMAKER INSERTION 2014 STERNOTOMY 12/09/2013 Procedure: STERNOTOMY; Surgeon: Niraj Celis MD; Location: [facility]; Service: Card iac;; TRANSTHORACIC ECHOCARDIOGRAM 09/2018 EF 20-25%, mild MR, mild TR, mild KS, RVSP 31 Social History Socioeconomic History Marital [...] file Social History Narrative She lives in [place]. to Alfredo 1949. Has mainly been a [...] Mondragon MD Pulmonary and Critical Care Medicine [facility] [address] [facility] [address] documented in this enco unter Plan of [...] [place] | | | | | | [address] | | | | | | | [...] [place] | | | | | | [address] | | | | | | | [...]
--- OUTSIDE RECORDS SUMMARY | ~2019-03-06 | XMS | Encounter Summary ---
Demographics + + + | Address | [address] | | | [place] [address] | + + + | Home Phone | | + + + | Preferred Language | Unknown | + + + | Marital Status | | + + + | Zoroastrian Affiliation | 1041 | + + + | Race | Unknown | + + + | Ethnic Group | Unknown | + + + Author + + + | Author | [facility] | | | and [place] | + + + | Organization | [facility] | | [...] [place], [place] | | | | | [address] | | + + + + + | Rivka Palma | ECON | Unknown | | + + + + + | Geno Kendall | ECON | Unknown | | + + + + + Care Team Providers + +------+ + | Care Sustain Engineer Name | Role | Phone | + +------+ + | Lorenzo Valdes MD | PCP | | + +------+ + Encounter Details +--------+ + + + + | Date | Type | Department | Care Team | Description | +--------+ + + + + | 09/10/ | Hospital | [facility] | Marisol, | CHF (congestive | | 2013 - | Encounter | [facility] | MD Raphael [address] | heart failure) | | | | CARE FLOOR [address] | (HCC); Pulmonary | | 09/17/ | | [address] | [place] [address] | edema; Elevated | | 2013 | | [place], [place] | [phone] | troponin I level; | | | | [address] | | Dyspnea; LBBB (left | | | | [phone] | | bundle branch block) | +--------+ [...] Date of Service: 09/16/13 1601 Status: Signed Physical Ther: Jaylen Langford MD (Physician) Related Notes: Original Note by Jaylen Langford MD (Physician) filed at 09/17/[address] [facility] Service: Hospitalist Discharge Summary Date of [...] recommended medical management. Dr. Bynum was p [facility]'s regular editorial assistant, recommended LifeVest before discharge. This morning the [...] hours No results found for this basename: PHART:3,PO2ART:3,OKD7RQK:3,F1BMRZQB:3,BEART:[address] 168 hours Lab [...] file. 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 You may get these medications from any [...] | | | | | | | ([facility]), Bronchitis, | | | | | | | obstructive, chronic | | | | | | | ([facility]) | | | | | | [...] 09/17/131321 Date of Service: 09/17/131320 Status: Signed Physical Ther: Iwona Jaramillo RN (Registered Nurse) Pt DC'd home via private vehicle. CHF teaching completed in detail with booklet provided. P atient and family questions answered as they verbalized understanding. IWONA JARAMILLO, RN onver yajaira Transaction, Provider Unknown - 09/16/2013 6:16 PM PDT Progress Notes by Sudha Keller at 09/16/131815 Author: Sudha Keller Service: (none) Author Type: Business Systems Technician Filed: 09/16/131820 Date of Service: 09/16/131815 Status: Signed Physical Ther: Sudha Keller () Follow up with Tamiko [...] Date of Service: 09/16/13 1613 Status: Signed Physical Ther: Jaylen Langford MD (Physician) [facility] Service: Hospitalist Progress Note Hospital Day: [...] hours No results found for this basename: PHART:3,PO2ART:3,YTY9PFP:3,N6ILRPFU:3,BEART:[address] 168 hours Lab [...] stopped her losartan and switched over to [id number] mg. Continue Aldactone 25 mg daily. Not [...] original. Case Management by Stefano Brewer MS, BEATER HEAD at 09/16/13 9644 Author: Stefano Brewer MS, BEATER HEAD Service: (none) Author Type: Vocational School Teacher Filed: 09/16/13 1544 Date of Service: 09/16/13 1549 Status: Signed Physical Ther: Stefano Brewer MS, BEATER HEAD (Vocational School Teacher) Discharge planning: CM followed up re: the ZOLL LifeVest. Per Hiren, Gizzard Peeler , he reports that Alba, a truck rental service attendant will fit pt for the vest y 8 am. Anticipated d/c date is Thursday. onver yajaira Transaction, Provider Unknown - 09/16/2013 11:59 AM PDT Progress Notes by Lorenzo Mosley RRT at 09/16/13 6286 Author: Lorenzo Mosley RRT Service: (none) Author Type: Registered Respiratory Therap ist Filed: 09/16/13 1200 Date of Service: 09/16/13 1433 Status: Signed Physical Ther: Lorenzo Mosley RRT (Registered Respiratory Therapist) [facility] Department of Respiratory Jail Oxygen Evaluation [...] PDT Case Management by Stefano Brewer MS BEATER HEAD at 09/16/13 1126 Author: Stefano Brewer MS BEATER HEAD Service: (none) Author Type: Vocational School Teacher Filed: 09/16/13 112 Date of Service: 09/16/131125 Status: Addendum Physical Ther: Stefano Brewer MS BEATER HEAD (Vocational School Teacher) Related Notes: Original Note by Stefano Brewer MS BEATER HEAD (Vocational School Teacher) filed at 09/16/13 1127 Disposition: Return to [...] Notes by Jaylen Langford MD at 09/15/13 4410 Author: Jaylen Langford MD Service: (none) Author Type: Physician Filed: 09/15/13 0922 Date of Service: 09/15/13 7164 Status: Addendum Physical Ther: Jaylen Langford MD (Physician) Related Notes: Original Note by Jaylen Langford MD (Physician) filed at 09/15/[address] [facility] Service: Hospitalist Progress Note Hospital Day: [...] hours No results found for this basename: PHART:3,PO2ART:3,CHH6KAY:3,R2BJVKQB:3,BEART:[address] 168 hours Lab [...] Date of Service: 09/15/13 1232 Status: Signed Physical Ther: Nikky Beatty RN (Registered Nurse) Patient and family present. Gave information to them regarding GPS. Patient consented to en rollment in GPS program. Jaylen Calixto i, MD - 09/14/2013 2:59 PM PDTFormatting of this note might be different fro m the original. Progress Notes by Jaylen Langford MD at 09/14/13 1426 Author: Jaylen Langford MD Service: (none) Author Type: Physician Filed: 09/15/13 6468 Date of Service: 09/14/131458 Status: Addendum Physical Ther: Jaylen Langford MD (Physician) Related Notes: Original Note by Jaylen Langford MD (Physician) filed at 09/14/[address] [facility] Service: Hospitalist Progress Note Hospital Day: [...] hours No results found for this basename: PHART:3,PO2ART:3,NUB0TXU:3,J2GDXNUH:3,BEART:[address] 168 hours Lab [...] Date of Service: 09/14/13 0958 Status: Signed Physical Ther: Piter Villa (Business Systems Technician) Follow-up support offered for Tamiko and her family. Alfredo present and two daughters. Tamiko expressed feeling hopeful about today. Prayer offered and received with Tamiko and unique lema participating giving thanks for the gift of life, family, and the care they have receive d here at [facility]. CP staff remains available should any needs arise. CP YANG Gale Jaylen Calixto i, MD - 09/13/2013 3:48 PM PDTFormatting of this note might be different fro m the original. Progress Notes by Jaylen Langford MD at 09/13/13 1548 Author: Jaylen Langford MD Service: (none) Author Type: Physician Filed: 09/14/13 1401 Date of Service: 09/13/13 1548 Status: Signed Physical Ther: Jaylen Langford MD (Physician) Related Notes: Original Note by Jaylen Langford MD (Physician) filed at 09/13/[address] [facility] Service: Hospitalist Progress Note Hospital Day: [...] hours No results found for this basename: PHART:3,PO2ART:3,IOK0MVI:3,A5LGLNQI:3,BEART:[address] 168 hours Lab [...] 09/13/13812 Date of Service: 09/13/13812 Status: Signed Physical Ther: Stanley Jason RN (Registered Nurse) shrimp pond laborer called, coming to get pt. Family notified, pt able to talk to daughter & b efore transfer to senior laboratory technician. Stanley Jason RN onver yajaira Transaction, Provider Unknown - 09/12/2013 4:42 PM PDT Nurse Progress Note by Lui Bautista RN at 09/12/131641 Author: Lui Bautista RN Service: (none) Author Type: Registered Nurse Filed: 09/12/13 1642 Date of Service: 09/12/131641 Status: Signed Physical Ther: Lui Bautista RN (Registered Nurse) Pt's BP 87/44, pt is asymptomatic, Dr. Augustin notified orders to hold bumex and coreg due at this time. WIll continue to monitor. Umm Krishna MD - 09/12/2013 2:34 PM PDT Progress Notes by Umm Augustin MD at 09/12/13 1435 Author: Umm Augustin MD Service: (none) Author Type: Physician Filed: 09/12/13 1446 Date of Service: 09/12/13 1430 Status: Signed Physical Ther: Umm Augustin MD (Physician) [facility] Service: Hospitalist Progress Note Hospital Day: LOS: 2 days SUBJECTIVE HPI: Dr. Damon "The patient is a 83 y.o. female with significant past medical histor y of Hypertension, asthma, hyperlipidemia, DM who presents with SOB," at [facility], with a history of tobacco abuse [...] which is exactly the same as from [facility]. 09/11 & 05/27--Pt. Has no hx of CHF, CHD, RHD, syncope, or hx of TIA/CVA. She is long standing DM. Overnight, she continues with SOB ciro. On any exertion. Difficulties sleeping ciro. If l aying flat. Taking PO's Denies CP, nausea or vomiting. Cards consult, Dr. Bynum on board. Family's daughters have requested a top precipitator operator visit for Alfredo--father. Heart rate <100. Scheduled [...] Author: Sudha Keller Service: (none) Author Type: Business Systems Technician Filed: 09/12/13 1302 Date of Service: 09/12/13 1300 Status: Signed Physical Ther: Sudha Keller (Business Systems Technician) Met with Tamiko and her Alfredo and two of her eight children (seven daughters and a so n!). The conversation was superficial and non verbally the daughters indicated they would li ke Alfredo to have a top precipitator operator visit. I will hand this request off to Chaplain Hess for his c are this afternoon. Business Systems Techniciansanti [place] wUmm hernandez MD - 09/11/2013 3:35 PM PDT Progress Notes by Umm Augustin MD at 09/11/13 1535 Author: Umm Augustin MD Service: (none) Author Type: Physician Filed: 09/11/13 1556 Date of Service: 09/11/13 1535 Status: Signed Physical Ther: Umm Augustin MD (Physician) [facility] Service: Hospitalist Progress Note Hospital Day: LOS: 1 day SUBJECTIVE HPI: Dr. Damon "The patient is a 83 y.o. female with significant past medical histor y of Hypertension, asthma, hyperlipidemia, DM who presents with SOB," at [facility], with a history of tobacco abuse [...] is exact ly the same as from [facility]. 09/11/13--Pt. Has no hx of CHF, [...] [DISCONTINUED] heparin (porcine) 5,000 Units Subcutaneous Q8H [facility] [DISCONTINUED] losartan 100 mg Oral Daily [DISCONTINUED] [...] Date of Service: 09/11/13 0548 Status: Signed Physical Ther: Tricia Calderon RN (Registered Nurse) Pt continues to cough this AM with any exertion. SaO2 remaining in the 90's on 3LNC. BP has been low since given carvedilol. Pt is asymptomatic. Pt has been to [facility] multiple times renata ght with good output. Pt is frequently incontinent with coughing and has soaked [address] us voided amounts. Pt has called appropriately. [facility] onversion Cm saction, Provider Unknown - 09/10/2013 11:34 PM PDTFormatting of this note might be differen t from the original. Progress Notes by Jess Robb RPH at 09/10/132333 Author: Jess Robb RPH Service: (none) Author Type: Pharmacist Filed: 09/10/132333 Date of Service: 09/10/132333 Status: Signed Physical Ther: Jess Robb RPH (Pharmacist) Clinical Pharmacy Note: Renal Monitoring Tamiko [place] 83 y.o. female Height: 167.6 cm Weight: 73.9 kg Serum Creatinine: 0.98 mg/dL (from [place]) Estimated creatinine clearance - Cockcroft-Gault CrCl: 46 [...] Author: JAIMEE Hernandez Service: (none) Author Type: Systems Project Manager Filed: 09/10/132256 Date of Service: 09/10/132252 Status: Signed Physical Ther: JAIMEE Hernandez (Systems Project Manager) 09/10/132247 Discharge Planning Evaluation Admitting Diagnosis CHF [...] adls up until past week. Power of Substation Operator Helper Yes Power of Substation Operator Helper Name Alfredo [place] Power of Substation Operator Helper Anticipated Discharge Plan Post Acute Care Needs [...] VALDES Patient's insurance: medicare/medicare IP-OP mutual of [employer] Coverage concerns: none at this time Medication coverage/concerns: none at this time Community resources utilized / needed: Assistance in transportation: Identification of any specific education / training: Barriers to Discharge / Alternative housing needed: Anticipated DCP: 1. Pending clinical course; pt would like to return home. 2. Spouse POA 3. Spouse to transport 4. Alfredo [place] [phone] Luz Hung docume nted in this encounter [...] [place] | | | | | | [address] | | | | | | | [...] [place] | | | | | | [address] | | | | | | | [...] | | | | | [place] [address] | | | | + + + + + + | K | 3.9Comment: Testing | 3.5 - 4.9 | EXTERNAL | | | | performed at [facility], [address] | mmol/L | LAB | | | | [address], | | | | | | [place] [address] | | | | + + + + + + | Cl | 99Comment: Testing | 99 - 109 mmol/L | EXTERNAL | | | | performed at [facility], [address] | | LAB | | | | [address], | | | | | | [place] [address] | | | | + + + + + + | CO2 | 31Comment: Testing | 23 - 32 mmol/L | EXTERNAL | | | | performed at [facility], [address] | | LAB | | | | [address], | | | | | | [place] [address] | | | | + + + + + + | Anion Gap | 10Comment: Testing | 5 - 20 mmol/L | EXTERNAL | | | | performed at [facility], [address] | | LAB | | | | [address], | | | | | | [place] [address] | | | | + + + + + + | Glucose, | 123 (H)Comment: Testing | 65 - 99 mg/dL | EXTERNAL | | | Fasting | performed at [facility], [address] | | LAB | | | | [address], | | | | | | [place] [address] | | | | + + + + + + | BUN | 20Comment: Testing | 8 - 25 mg/dL | EXTERNAL | | | | performed at [facility], [address] | | LAB | | | | [address], | | | | | | [place] [address] | | | | + + + + + + | Creatinine | 0.91Comment: Testing | 0.50 - 1.00 | EXTERNAL | | | | performed at [facility], [address] | mg/dL | LAB | | | | [address], | | | | | | [place] [address] | | | | + + + + + + | BUN/Creatin | 22Comment: Testing | | EXTERNAL | | | ine Ratio | performed at [facility], [address] | | LAB | | | | [address], | | | | | | [place] [address] | | | | + + + + + + | Calcium | 9.3Comment: Testing | 8.5 - 10.2 | EXTERNAL | | | | performed at [facility], [address] | mg/dL | LAB | | | | [address], | | | | | | [place] [address] | | | | + + + + + + | Protein, | 6.2 (L)Comment: Testing | 6.3 - 8.2 g/dL | EXTERNAL | | | Total | performed at [facility], [address] | | LAB | | | | [address], | | | | | | [place] [address] | | | | + + + + + + | Albumin | 3.7Comment: Testing | 3.3 - 4.8 g/dL | EXTERNAL | | | | performed at [facility], [address] | | LAB | | | | [address], | | | | | | [place] [address] | | | | + + + + + + | Globulin | 2.5Comment: Testing | 1.3 - 4.9 g/dL | EXTERNAL | | | | performed at [facility], [address] | | LAB | | | | [address], | | | | | | [place] [address] | | | | + + + + + + | A/G Ratio | 1.5Comment: Testing | 1.0 - 2.4 | EXTERNAL | | | | performed at [facility], [address] | | LAB | | | | [address], | | | | | | [place], [place] [address] | | | | + + + + + + | Bilirubin | 0.8Comment: Testing | 0.1 - 1.5 mg/dL | EXTERNAL | | | Total | performed at [facility], [address] | | LAB | | | | [address], | | | | | | [place] [address] | | | | + + + + + + | ALP, | 55Comment: Testing | 35 - 115 U/L | EXTERNAL | | | External | performed at [facility], [address] | | LAB | | | | [address], | | | | | | [place] [address] | | | | + + + + + + | AST | 19Comment: Testing | 10 - 45 U/L | EXTERNAL | | | | performed at [facility], [address] | | LAB | | | | [address], | | | | | | [place] [address] | | | | + + + + + + | ALT | 21Comment: Testing | 10 - 65 U/L | EXTERNAL | | | | performed at [facility], [address] | | LAB | | | | [facility], | | | | | | [place] [address] | | | | + + + [...] | | | | | | at [facility], [address] | | | | | | [address], | | | | | | [place] [address] | | | | + + + [...] | | | | | [place] [address] | | | | + + + + + + | K | 3.5Comment: Testing | 3.5 - 4.9 | EXTERNAL | | | | performed at [facility], [address] | mmol/L | LAB | | | | [address], | | | | | | [place] [address] | | | | + + + + + + | Cl | 101Comment: Testing | 99 - 109 mmol/L | EXTERNAL | | | | performed at [facility], [address] | | LAB | | | | [address], | | | | | | [place] [address] | | | | + + + + + + | CO2 | 29Comment: Testing | 23 - 32 mmol/L | EXTERNAL | | | | performed at [facility], [address] | | LAB | | | | [address], | | | | | | [place] [address] | | | | + + + + + + | Anion Gap | 13Comment: Testing | 5 - 20 mmol/L | EXTERNAL | | | | performed at [facility], [address] | | LAB | | | | [address], | | | | | | [place] [address] | | | | + + + + + + | Glucose, | 128 (H)Comment: Testing | 65 - 99 mg/dL | EXTERNAL | | | Fasting | performed at [facility], [address] | | LAB | | | | [address], | | | | | | [place] [address] | | | | + + + + + + | BUN | 16Comment: Testing | 8 - 25 mg/dL | EXTERNAL | | | | performed at [facility], [address] | | LAB | | | | [address], | | | | | | [place] [address] | | | | + + + + + + | Creatinine | 0.95Comment: Testing | 0.50 - 1.00 | EXTERNAL | | | | performed at [facility], [address] | mg/dL | LAB | | | | [address], | | | | | | [place] [address] | | | | + + + + + + | BUN/Creatin | 17Comment: Testing | | EXTERNAL | | | ine Ratio | performed at [facility], [address] | | LAB | | | | [address], | | | | | | [place] [address] | | | | + + + + + + | Calcium | 9.3Comment: Testing | 8.5 - 10.2 | EXTERNAL | | | | performed at [facility], [address] | mg/dL | LAB | | | | [address], | | | | | | [place] [address] | | | | + + + + + + | Protein, | 6.5Comment: Testing | 6.3 - 8.2 g/dL | EXTERNAL | | | Total | performed at [facility], [address] | | LAB | | | [address], | | | | | | [place] [address] | | | | + + + + + + | Albumin | 3.8Comment: Testing | 3.3 - 4.8 g/dL | EXTERNAL | | | | performed at [facility], [address] | | LAB | | | | [address], | | | | | | [place] [address] | | | | + + + + + + | Globulin | 2.7Comment: Testing | 1.3 - 4.9 g/dL | EXTERNAL | | | | performed at [facility], [address] | | LAB | | | | [address], | | | | | | [place] [address] | | | | + + + + + + | A/G Ratio | 1.4Comment: Testing | 1.0 - 2.4 | EXTERNAL | | | | performed at [facility], [address] | | LAB | | | | [address], | | | | | | [place] [address] | | | | + + + [...] | | | | | [place] [address] | | | | + + + + + + | AST | 21Comment: Testing | 10 - 45 U/L | EXTERNAL | | | | performed at [facility], [address] | | LAB | | | | [address], | | | | | | [place] [address] | | | | + + + + + + | ALT | 23Comment: Testing | 10 - 65 U/L | EXTERNAL | | | | performed at [facility], [address] | | LAB | | | | [address], | | | | | | [place] [address] | | | | + + + [...] W | | | | | | [address], | | | | | | [place] [address] | | | | + + + [...] | | | Patient | performed at [facility];[address] | | LAB | | | | [address];[place] | | | | | | [address] | | | | + + + [...] | 191.07 ml LVLs A4C: 9.69 cm Plate Former: CM Authenticated | | | by: eKnia Dent MD Report Date/Time: 09-15-2013 14:45:15 | [...] MOD A4C: 191.07 mlLVLs A4C: 9.69 cm Plate Former: CMAuthenticated by: | | Kenia CARRANZAchelsea Date/Time: [...] |LVLs A4C: 9.69 cm | | | |Plate Former: CM | |Authenticated by: Kenia Dent MD [...] | | | Patient | performed at [facility];[address] | | LAB | | | | [address];[place], [place] | | | | | | [address] | | | | + + + [...] EXTERNAL | | | | performed at [facility];[address] | mmol/L | LAB | | | | [address];[place] | | | | | | [address] | | | | + + + + + + | K | 4.0Comment: SLT | 3.5 - 4.9 | EXTERNAL | | | | HEMOLYSISTesting | mmol/L | LAB | | | | performed at [facility];[address] | | | | | | [address];[place] | | | | | | [address] | | | | + + + + + + | Cl | 104Comment: Testing | 99 - 109 mmol/L | EXTERNAL | | | | performed at [facility];[address] | | LAB | | | | [address];[place] | | | | | | [address] | | | | + + + + + + | CO2 | 25Comment: Testing | 23 - 32 mmol/L | EXTERNAL | | | | performed at [facility];[address] | | LAB | | | | [address];[place] | | | | | | [address] | | | | + + + + + + | Anion Gap | 15Comment: Testing | 5 - 20 mmol/L | EXTERNAL | | | | performed at [facility];[address] | | LAB | | | | [address];[place] | | | | | | [address] | | | | + + + + + + | Glucose, | 112 (H)Comment: Testing | 65 - 99 mg/dL | EXTERNAL | | | Fasting | performed at [facility];[address] | | LAB | | | | [address];[place] | | | | | | [address] | | | | + + + + + + | BUN | 17Comment: Testing | 8 - 25 mg/dL | EXTERNAL | | | | performed at [facility];[address] | | LAB | | | | [address];[place] | | | | | | [address] | | | | + + + + + + | Creatinine | 0.67Comment: Testing | 0.50 - 1.00 | EXTERNAL | | | | performed at [facility];[address] | mg/dL | LAB | | | | [address];[place] | | | | | | [address] | | | | + + + + + + | BUN/Creatin | 26Comment: Testing | | EXTERNAL | | | ine Ratio | performed at [facility];[address] | | LAB | | | | [address];[place] | | | | | | [address] | | | | + + + + + + | Calcium | 8.0 (L)Comment: Testing | 8.5 - 10.2 | EXTERNAL | | | | performed at [facility];[address] | mg/dL | LAB | | | | [address];[place] | | | | | | [address] | | | | + + + + + + | Protein, | 6.1 (L)Comment: Testing | 6.3 - 8.2 g/dL | EXTERNAL | | | Total | performed at [facility];[address] | | LAB | | | | [address];[place] | | | | | | [address] | | | | + + + + + + | Albumin | 2.9 (L)Comment: Testing | 3.3 - 4.8 g/dL | EXTERNAL | | | | performed at [facility];[address] | | LAB | | | | [address];[place] | | | | | | [address] | | | | + + + + + + | Globulin | 3.2Comment: Testing | 1.3 - 4.9 g/dL | EXTERNAL | | | | performed at [facility];[address] | | LAB | | | | [address];[place] | | | | | | [address] | | | | + + + + + + | A/G Ratio | 0.9 (L)Comment: Testing | 1.0 - 2.4 | EXTERNAL | | | | performed at [facility];[address] | | LAB | | | | [address];[place] | | | | | | [address] | | | | + + + + + + | Bilirubin | 0.5Comment: Testing | 0.1 - 1.5 mg/dL | EXTERNAL | | | Total | performed at [facility];[address] | | LAB | | | | [address];[place] | | | | | | [address] | | | | + + + + + + | ALP, | 65Comment: Testing | 35 - 115 U/L | EXTERNAL | | | External | performed at [facility];[address] | | LAB | | | | [address];[place] | | | | | | [address] | | | | + + + + + + | AST | 36Comment: SLT | 10 - 45 U/L | EXTERNAL | | | | HEMOLYSISTesting | | LAB | | | | performed at [facility];[address] | | | | | | [address];[place] | | | | | | [address] | | | | + + + + + + | ALT | 35Comment: Testing | 10 - 65 U/L | EXTERNAL | | | | performed at [facility];[address] | | LAB | | | | [address];[place] | | | | | | [address] | | | | + + + [...] | | | | | | at [facility];[address] | | | | | | [address];[place] [address] | | | | + + + [...] | | | Patient | performed at [facility];[address] | | LAB | | | | [address];[place], [place] | | | | | | [address] | | | | + + + [...] EXTERNAL | | | | performed at [facility], [address] | | LAB | | | | [address], | | | | | | [place] [address] | | | | + + + + + + | RED CELL | 3.58 (L)Comment: Testing | 3.70 - 5.10 | EXTERNAL | | | COUNT | performed at [facility], [address] | M/uL | LAB | | | | [address], | | | | | | [place] [address] | | | | + + + + + + | Hgb | 11.7Comment: Testing | 11.3 - 15.5 | EXTERNAL | | | | performed at [facility], [address] | g/dL | LAB | | | | [address], | | | | | | [place] [address] | | | | + + + + + + | Hematocrit, | 34.6Comment: Testing | 34.0 - 46.0 % | EXTERNAL | | | POC | performed at [facility], [address] | | LAB | | | | [address], | | | | | | [place] [address] | | | | + + + + + + | MCV | 96.6Comment: Testing | 80.0 - 100.0 fl | EXTERNAL | | | | performed at [facility], [address] | | LAB | | | | [address], | | | | | | [place] [address] | | | | + + + + + + | MCH | 32.6Comment: Testing | 27.0 - 34.0 pg | EXTERNAL | | | | performed at [facility], [address] | | LAB | | | | [address], | | | | | | [place] [address] | | | | + + + + + + | MCHC | 33.7Comment: Testing | 32.0 - 35.5 | EXTERNAL | | | | performed at [facility], [address] | g/dL | LAB | | | | [address], | | | | | | [place] [address] | | | | + + + + + + | RDW-CV | 47.3Comment: Testing | 37 - 53 fl | EXTERNAL | | | | performed at [facility], [address] | | LAB | | | | [address], | | | | | | [place] [address] | | | | + + + + + + | Platelet | 177Comment: Testing | 150 - 400 K/uL | EXTERNAL | | | Count | performed at [facility], [address] | | LAB | | | Plasma | [address], | | | | | | [place] [address] | | | | + + + + + + | MPV | 9.0Comment: Testing | fl | EXTERNAL | | | | performed at [facility], [address] | | LAB | | | | [address], | | | | | | [place] [address] | | | | + + + + + + | Differentia | MANUALComment: Testing | | EXTERNAL | | | l Type | performed at [facility], [address] | | LAB | | | | [address], | | | | | | [place] [address] | | | | + + + + + + | Segmented | 61Comment: Testing | % | EXTERNAL | | | Neutrophils | performed at [facility], [address] | | LAB | | | Manual | [address], | | | | | | [place] [address] | | | | + + + + + + | % Bands | 2Comment: Testing | % | EXTERNAL | | | | performed at [facility], [address] | | LAB | | | | [address], | | | | | | [place] [address] | | | | + + + + + + | Lymphocytes | 22Comment: Testing | % | EXTERNAL | | | Manual | performed at [facility], [address] | | LAB | | | | [address], | | | | | | [place] [address] | | | | + + + + + + | Monocytes | 12Comment: Testing | % | EXTERNAL | | | Manual | performed at [facility], [address] | | LAB | | | | [address], | | | | | | [place] [address] | | | | + + + + + + | Eosinophils | 3Comment: Testing | % | EXTERNAL | | | Manual | performed at [facility], [address] | | LAB | | | | [address], | | | | | | [place] [address] | | | | + + + + + + | Absolute | 4.5Comment: Testing | 1.9 - 7.4 K/uL | EXTERNAL | | | Neutrophils | performed at [facility], [address] | | LAB | | | | [address], | | | | | | [place] [address] | | | | + + + + + + | Bands | 0.1Comment: Testing | 0 - 0.2 K/uL | EXTERNAL | | | Manual | performed at [facility], [address] | | LAB | | | | [address], | | | | | | [place] [address] | | | | + + + + + + | Absolute | 1.6Comment: Testing | 1.0 - 3.9 K/uL | EXTERNAL | | | Lymphocytes | performed at [facility], [address] | | LAB | | | | [address], | | | | | | [place] [address] | | | | + + + + + + | Absolute | 0.9 (H)Comment: Testing | 0 - 0.8 K/uL | EXTERNAL | | | Monocytes | performed at [facility], [address] | | LAB | | | | [address], | | | | | | [place] [address] | | | | + + + + + + | Absolute | 0.2Comment: Testing | 0 - 0.5 K/uL | EXTERNAL | | | Eosinophils | performed at [facility], [address] | | LAB | | | | [place] [address], | | | | | | [place] [address] | | | | + + + + + + | RBC | RBC AND PLT MORPHOLOGY | | EXTERNAL | | | Morphology | APPEAR NORMALComment: | | LAB | | | | Testing performed at | | | | | | [facility], [address] | | | | | | [place] | | | | | | [address] | | | | + + + [...] EXTERNAL | | | | performed at [facility], [address] | | LAB | | | | [place], | | | | | | [place] [address] | | | | + + + [...] EXTERNAL | | | | performed at [facility], [address] | | LAB | | | | [place] [address], | | | | | | [place] [address] | | | | + + + [...] EXTERNAL | | | | performed at [facility], [address] | mmol/L | LAB | | | | [place] [address], | | | | | | [place] [address] | | | | + + + + + + | K | 3.5Comment: Testing | 3.5 - 4.9 | EXTERNAL | | | | performed at [facility], [address] | mmol/L | LAB | | | | [address], | | | | | | [place] [address] | | | | + + + + + + | Cl | 101Comment: Testing | 99 - 109 mmol/L | EXTERNAL | | | | performed at [facility], [address] | | LAB | | | | [address], | | | | | | [place] [address] | | | | + + + + + + | CO2 | 26Comment: Testing | 23 - 32 mmol/L | EXTERNAL | | | | performed at [facility], [address] | | LAB | | | | [address], | | | | | | [place] [address] | | | | + + + + + + | Anion Gap | 12Comment: Testing | 5 - 20 mmol/L | EXTERNAL | | | | performed at [facility], [address] | | LAB | | | | [address], | | | | | | [place] [address] | | | | + + + + + + | Glucose, | 109 (H)Comment: Testing | 65 - 99 mg/dL | EXTERNAL | | | Fasting | performed at [facility], [address] | | LAB | | | | [address], | | | | | | [place] [address] | | | | + + + + + + | BUN | 21Comment: Testing | 8 - 25 mg/dL | EXTERNAL | | | | performed at [facility], [address] | | LAB | | | | [address], | | | | | | [place] [address] | | | | + + + + + + | Creatinine | 0.93Comment: Testing | 0.50 - 1.00 | EXTERNAL | | | | performed at [facility], [address] | mg/dL | LAB | | | | [address], | | | | | | [place] [address] | | | | + + + + + + | BUN/Creatin | 23Comment: Testing | | EXTERNAL | | | ine Ratio | performed at [facility], [address] | | LAB | | | | [place], | | | | | | [place] [address] | | | | + + + + + + | Calcium | 8.6Comment: Testing | 8.5 - 10.2 | EXTERNAL | | | | performed at [facility], [address] | mg/dL | LAB | | | | [address], | | | | | | [place] [address] | | | | + + + + + + | Protein, | 5.7 (L)Comment: Testing | 6.3 - 8.2 g/dL | EXTERNAL | | | Total | performed at [facility], [address] | | LAB | | | | [address], | | | | | | [place] [address] | | | | + + + + + + | Albumin | 3.3Comment: Testing | 3.3 - 4.8 g/dL | EXTERNAL | | | | performed at [facility], [address] | | LAB | | | [address], | | | | | | [place] [address] | | | | + + + + + + | Globulin | 2.4Comment: Testing | 1.3 - 4.9 g/dL | EXTERNAL | | | | performed at [facility], [address] | | LAB | | | | [address], | | | | | | [place] [address] | | | | + + + + + + | A/G Ratio | 1.4Comment: Testing | 1.0 - 2.4 | EXTERNAL | | | | performed at [facility], [address] | | LAB | | | | [address], | | | | | | [place] [address] | | | | + + + + + + | Bilirubin | 0.5Comment: Testing | 0.1 - 1.5 mg/dL | EXTERNAL | | | Total | performed at [facility], [address] | | LAB | | | | [address], | | | | | | [place], [place] [address] | | | | + + + + + + | ALP, | 59Comment: Testing | 35 - 115 U/L | EXTERNAL | | | External | performed at [facility], [address] | | LAB | | | | [address], | | | | | | [place], [place] [address] | | | | + + + + + + | AST | 23Comment: Testing | 10 - 45 U/L | EXTERNAL | | | | performed at [facility], [address] | | LAB | | | | [address], | | | | | | [place] [address] | | | | + + + + + + | ALT | 28Comment: Testing | 10 - 65 U/L | EXTERNAL | | | | performed at [facility], [address] | | LAB | | | | [address], | | | | | | [place] [address] | | | | + + + [...] | | | | | | at [facility], [address] | | | | | | [facility], | | | | | | [place] [address] | | | | + + + [...] | | anesthetized with 1% lidocaine. A 6-[place] arterial sheath was placed | | | in the right femoral artery, and a 6-[place] JL4 catheter was advanced | | | under fluoroscopic guidance and engaged with the ostium of the left | | | main coronary artery, and multiple projections of the left coronary | | | system were done with the use of contrast injections. The catheter | | | was then exchanged for a 6-[place] JR4 catheter which was engaged with | | | the ostium of the right coronary artery and multiple projections of | | | the right coronary system were obtained with the use of contrast | | | injections. The catheter was then exchanged for a 6-[place]ank[place] pigtail | | | catheter which was [...] tandem lesions in the | | | gyadrdpk-zx-spi vessel. The principal marginal branch was free [...] | was anesthetized with 1% lidocaine. A 6-[place] arterial sheath was placed | | in the right femoral artery, and a 6-[place] JL4 catheter was advanced | | under fluoroscopic guidance and engaged with the ostium of the left main | | coronary artery, and multiple projections of the left coronary system were | | done with the use of contrast injections. The catheter was then exchanged | | for a 6-[place] JR4 catheter which was engaged with the ostium of the right | | coronary artery and multiple projections of the right coronary system were | | obtained with the use of contrast injections. The catheter was then | | exchanged for a 6-[place] pigtail catheter which was advanced into the [...] 70% tandem lesions in the | | ohgdtzrc-bd-dhx vessel. The principal marginal branch was free [...] | | | Patient | performed at [facility];[address] | | LAB | | | | [facility];[place], [place] | | | | | | [address] | | | | + + + [...] | | | | | [place] [address] | | | | + + + + + + | RED CELL | 3.74Comment: Testing | 3.70 - 5.10 | EXTERNAL | | | COUNT | performed at [facility], [address] | M/uL | LAB | | | | [address], | | | | | | [place] [address] | | | | + + + + + + | Hgb | 12.2Comment: Testing | 11.3 - 15.5 | EXTERNAL | | | | performed at [facility], [address] | g/dL | LAB | | | | [address], | | | | | | [place] [address] | | | | + + + + + + | Hematocrit, | 36.5Comment: Testing | 34.0 - 46.0 % | EXTERNAL | | | POC | performed at [facility], [address] | | LAB | | | | [place], | | | | | | [place] [address] | | | | + + + + + + | MCV | 97.4Comment: Testing | 80.0 - 100.0 fl | EXTERNAL | | | | performed at [facility], [address] | | LAB | | | | [place], | | | | | | [place] [address] | | | | + + + + + + | MCH | 32.5Comment: Testing | 27.0 - 34.0 pg | EXTERNAL | | | | performed at [facility], [address] | | LAB | | | | [place] [address], | | | | | | [place] [address] | | | | + + + + + + | MCHC | 33.4Comment: Testing | 32.0 - 35.5 | EXTERNAL | | | | performed at [facility], [address] | g/dL | LAB | | | | [address], | | | | | | [place] [address] | | | | + + + + + + | RDW-CV | 45.9Comment: Testing | 37 - 53 fl | EXTERNAL | | | | performed at [facility], [address] | | LAB | | | | [address], | | | | | | [place] [address] | | | | + + + + + + | Platelet | 198Comment: Testing | 150 - 400 K/uL | EXTERNAL | | | Count | performed at [facility], [address] | | LAB | | | Plasma | [address], | | | | | | [place] [address] | | | | + + + + + + | MPV | 9.1Comment: Testing | fl | EXTERNAL | | | | performed at [facility], [address] | | LAB | | | | [address], | | | | | | [place] [address] | | | | + + + + + + | Differentia | AUTOMATEDComment: | | EXTERNAL | | | l Type | Testing performed at | | LAB | | | | [facility], [address] | | | | | | [place] | | | | | | [address] | | | | + + + + + + | % Segmented | 59.8Comment: Testing | % | EXTERNAL | | | | performed at [facility], [address] | | LAB | | | Neutrophils | [address], | | | | | | [place] [address] | | | | + + + + + + | % | 23.8Comment: Testing | % | EXTERNAL | | | Lymphocytes | performed at [facility], [address] | | LAB | | | | [address], | | | | | | [place] [address] | | | | + + + + + + | % Monocytes | 11.0Comment: Testing | % | EXTERNAL | | | | performed at [facility], [address] | | LAB | | | | [address], | | | | | | [place] [address] | | | | + + + + + + | % | 4.2Comment: Testing | % | EXTERNAL | | | Eosinophils | performed at [facility], [address] | | LAB | | | | [address], | | | | | | [place] [address] | | | | + + + + + + | % Basophils | 1.2Comment: Testing | % | EXTERNAL | | | | performed at [facility], [address] | | LAB | | | | [address], | | | | | | [place] [address] | | | | + + + + + + | Absolute | 4.7Comment: Testing | 1.9 - 7.4 K/uL | EXTERNAL | | | Segmented | performed at [facility], [address] | | LAB | | | Neutrophils | [address], | | | | | | [place] [address] | | | | + + + + + + | Absolute | 1.9Comment: Testing | 1.0 - 3.9 K/uL | EXTERNAL | | | Lymphocytes | performed at [facility], [address] | | LAB | | | | [address], | | | | | | [place] [address] | | | | + + + + + + | Absolute | 0.9 (H)Comment: Testing | 0 - 0.8 K/uL | EXTERNAL | | | Monocytes | performed at [facility], [address] | | LAB | | | | [address], | | | | | | [place] [address] | | | | + + + + + + | Absolute | 0.3Comment: Testing | 0 - 0.5 K/uL | EXTERNAL | | | Eosinophils | performed at [facility], [address] | | LAB | | | | [address], | | | | | | [place] [address] | | | | + + + + + + | Absolute | 0.1Comment: Testing | 0 - 0.1 K/uL | EXTERNAL | | | Basophils | performed at [facility], [address] | | LAB | | | | [address], | | | | | | [place] [address] | | | | + + + [...] | | | | | [place] [address] | | | | + + + + + + | K | 3.4 (L)Comment: Testing | 3.5 - 4.9 | EXTERNAL | | | | performed at [facility], [address] | mmol/L | LAB | | | | [place], | | | | | | [place] [address] | | | | + + + + + + | Cl | 101Comment: Testing | 99 - 109 mmol/L | EXTERNAL | | | | performed at [facility], [address] | | LAB | | | | [address], | | | | | | [place] [address] | | | | + + + + + + | CO2 | 26Comment: Testing | 23 - 32 mmol/L | EXTERNAL | | | | performed at [facility], [address] | | LAB | | | | [address], | | | | | | [place] [address] | | | | + + + + + + | Anion Gap | 11Comment: Testing | 5 - 20 mmol/L | EXTERNAL | | | | performed at [facility], [address] | | LAB | | | | [address], | | | | | | [place] [address] | | | | + + + + + + | Glucose, | 119 (H)Comment: Testing | 65 - 99 mg/dL | EXTERNAL | | | Fasting | performed at [facility], [address] | | LAB | | | | [address], | | | | | | [place] [address] | | | | + + + + + + | BUN | 29 (H)Comment: Testing | 8 - 25 mg/dL | EXTERNAL | | | | performed at [facility], [address] | | LAB | | | | [address], | | | | | | [place] [address] | | | | + + + + + + | Creatinine | 0.94Comment: Testing | 0.50 - 1.00 | EXTERNAL | | | | performed at [facility], [address] | mg/dL | LAB | | | | [address], | | | | | | [place] [address] | | | | + + + + + + | BUN/Creatin | 31Comment: Testing | | EXTERNAL | | | ine Ratio | performed at [facility], [address] | | LAB | | | | [place] [address], | | | | | | [place] [address] | | | | + + + + + + | Calcium | 8.8Comment: Testing | 8.5 - 10.2 | EXTERNAL | | | | performed at [facility], [address] | mg/dL | LAB | | | | [address], | | | | | | [place] [address] | | | | + + + + + + | Protein, | 5.8 (L)Comment: Testing | 6.3 - 8.2 g/dL | EXTERNAL | | | Total | performed at [facility], [address] | | LAB | | | | [address], | | | | | | [place] [address] | | | | + + + [...] | | | | | [place] [address] | | | | + + + + + + | A/G Ratio | 1.6Comment: Testing | 1.0 - 2.4 | EXTERNAL | | | | performed at [facility], [address] | | LAB | | | | [address], | | | | | | [place] [address] | | | | + + + + + + | Bilirubin | 0.6Comment: Testing | 0.1 - 1.5 mg/dL | EXTERNAL | | | Total | performed at [facility], [address] | | LAB | | | | [address], | | | | | | [place] [address] | | | | + + + + + + | ALP, | 64Comment: Testing | 35 - 115 U/L | EXTERNAL | | | External | performed at [facility], [address] | | LAB | | | | [address], | | | | | | [place] [address] | | | | + + + + + + | AST | 30Comment: Testing | 10 - 45 U/L | EXTERNAL | | | | performed at [facility], [address] | | LAB | | | | [address], | | | | | | [place] [address] | | | | + + + + + + | ALT | 35Comment: Testing | 10 - 65 U/L | EXTERNAL | | | | performed at [facility], [address] | | LAB | | | | [address], | | | | | | [place] [address] | | | | + + + [...] | | | | | | at [facility], [address] | | | | | | [place], | | | | | | [place] [address] | | | | + + + [...] | | | Patient | performed at [facility];[address] | | LAB | | | | [place] | | | | | | [address] | | | | + + + [...] EXTERNAL LAB | | Testing performed at [address];[place] [address] MRSA PCR | | | NEGATIVE Testing performed at | | | [facility];[address] [place] [address];[place] [address] | | + + + + +---------+ [...] | | | Patient | performed at [facility];[address] | | LAB | | | | [address];[place], [place] | | | | | | [address] | | | | + + + [...] | | | | | [place] [address] | | | | + + + + + + | K | 3.4 (L)Comment: Testing | 3.5 - 4.9 | EXTERNAL | | | | performed at [facility], [address] | mmol/L | LAB | | | | [place], | | | | | | [place] [address] | | | | + + + + + + | Cl | 99Comment: Testing | 99 - 109 mmol/L | EXTERNAL | | | | performed at [facility], [address] | | LAB | | | | [address], | | | | | | [place] [address] | | | | + + + + + + | CO2 | 25Comment: Testing | 23 - 32 mmol/L | EXTERNAL | | | | performed at [facility], [address] | | LAB | | | | [address], | | | | | | [place] [address] | | | | + + + + + + | Anion Gap | 12Comment: Testing | 5 - 20 mmol/L | EXTERNAL | | | | performed at [facility], [address] | | LAB | | | | [address], | | | | | | [place] [address] | | | | + + + + + + | Glucose, | 163 (H)Comment: Testing | 65 - 99 mg/dL | EXTERNAL | | | Fasting | performed at [facility], [address] | | LAB | | | | [address], | | | | | | [place] [address] | | | | + + + + + + | BUN | 35 (H)Comment: Testing | 8 - 25 mg/dL | EXTERNAL | | | | performed at [facility], [address] | | LAB | | | | [place], | | | | | | [place] [address] | | | | + + + + + + | Creatinine | 1.23 (H)Comment: Testing | 0.50 - 1.00 | EXTERNAL | | | | performed at [facility], [address] | mg/dL | LAB | | | | [address], | | | | | | [place] [address] | | | | + + + + + + | BUN/Creatin | 28Comment: Testing | | EXTERNAL | | | ine Ratio | performed at [facility], [address] | | LAB | | | | [address], | | | | | | [place] [address] | | | | + + + + + + | Calcium | 8.8Comment: Testing | 8.5 - 10.2 | EXTERNAL | | | | performed at [facility], [address] | mg/dL | LAB | | | | [address], | | | | | | [place] [address] | | | | + + + + + + | Protein, | 6.2 (L)Comment: Testing | 6.3 - 8.2 g/dL | EXTERNAL | | | Total | performed at [facility], [address] | | LAB | | | | [address], | | | | | | [place] [address] | | | | + + + + + + | Albumin | 3.8Comment: Testing | 3.3 - 4.8 g/dL | EXTERNAL | | | | performed at [facility], [address] | | LAB | | | | [address], | | | | | | [place] [address] | | | | + + + + + + | Globulin | 2.4Comment: Testing | 1.3 - 4.9 g/dL | EXTERNAL | | | | performed at [facility], [address] | | LAB | | | [address], | | | | | | [place] [address] | | | | + + + + + + | A/G Ratio | 1.6Comment: Testing | 1.0 - 2.4 | EXTERNAL | | | | performed at [facility], [address] | | LAB | | | | [address], | | | | | | [place] [address] | | | | + + + + + + | Bilirubin | 0.5Comment: Testing | 0.1 - 1.5 mg/dL | EXTERNAL | | | Total | performed at [facility], [address] | | LAB | | | | [address], | | | | | | [place] [address] | | | | + + + + + + | ALP, | 69Comment: Testing | 35 - 115 U/L | EXTERNAL | | | External | performed at [facility], [address] | | LAB | | | | [address], | | | | | | [place] [address] | | | | + + + + + + | AST | 37Comment: Testing | 10 - 45 U/L | EXTERNAL | | | | performed at [facility], [address] | | LAB | | | | [address], | | | | | | [place] [address] | | | | + + + + + + | ALT | 40Comment: Testing | 10 - 65 U/L | EXTERNAL | | | | performed at [facility], [address] | | LAB | | | | [address], | | | | | | [place] [address] | | | | + + + [...] | | | | | [place] [address] | | | | + + + [...] | | | Patient | performed at [facility];[address] | | LAB | | | | [place] | | | | | | [address] | | | | + + + [...] | | | | | [place] [address] | | | | + + + + + + | K | 3.7Comment: Testing | 3.5 - 4.9 | EXTERNAL | | | | performed at [facility], [address] | mmol/L | LAB | | | | [address], | | | | | | [place] [address] | | | | + + + + + + | Cl | 100Comment: Testing | 99 - 109 mmol/L | EXTERNAL | | | | performed at [facility], [address] | | LAB | | | | [address], | | | | | | [place] [address] | | | | + + + + + + | CO2 | 24Comment: Testing | 23 - 32 mmol/L | EXTERNAL | | | | performed at [facility], [address] | | LAB | | | | [address], | | | | | | [place] [address] | | | | + + + + + + | Anion Gap | 14Comment: Testing | 5 - 20 mmol/L | EXTERNAL | | | | performed at [facility], [address] | | LAB | | | | [address], | | | | | | [place] [address] | | | | + + + + + + | Glucose, | 110 (H)Comment: Testing | 65 - 99 mg/dL | EXTERNAL | | | Fasting | performed at [facility], [address] | | LAB | | | | [address], | | | | | | [place] [address] | | | | + + + + + + | BUN | 35 (H)Comment: Testing | 8 - 25 mg/dL | EXTERNAL | | | | performed at [facility], [address] | | LAB | | | | [address], | | | | | | [place] [address] | | | | + + + + + + | Creatinine | 1.20 (H)Comment: Testing | 0.50 - 1.00 | EXTERNAL | | | | performed at [facility], [address] | mg/dL | LAB | | | | [address], | | | | | | [place] [address] | | | | + + + + + + | BUN/Creatin | 29Comment: Testing | | EXTERNAL | | | ine Ratio | performed at [facility], [address] | | LAB | | | | [address], | | | | | | [place] [address] | | | | + + + + + + | Calcium | 9.1Comment: Testing | 8.5 - 10.2 | EXTERNAL | | | | performed at [facility], [address] | mg/dL | LAB | | | | [address], | | | | | | [place] [address] | | | | + + + + + + | Protein, | 6.3Comment: Testing | 6.3 - 8.2 g/dL | EXTERNAL | | | Total | performed at [facility], [address] | | LAB | | | [address], | | | | | | [place] [address] | | | | + + + + + + | Albumin | 3.9Comment: Testing | 3.3 - 4.8 g/dL | EXTERNAL | | | | performed at [facility], [address] | | LAB | | | | [address], | | | | | | [place] [address] | | | | + + + + + + | Globulin | 2.4Comment: Testing | 1.3 - 4.9 g/dL | EXTERNAL | | | | performed at [facility], [address] | | LAB | | | | [address], | | | | | | [place] [address] | | | | + + + + + + | A/G Ratio | 1.6Comment: Testing | 1.0 - 2.4 | EXTERNAL | | | | performed at [facility], [address] | | LAB | | | | [address], | | | | | | [place] [address] | | | | + + + + + + | Bilirubin | 0.5Comment: Testing | 0.1 - 1.5 mg/dL | EXTERNAL | | | Total | performed at [facility], [address] | | LAB | | | | [address], | | | | | | [place] [address] | | | | + + + + + + | ALP, | 69Comment: Testing | 35 - 115 U/L | EXTERNAL | | | External | performed at [facility], [address] | | LAB | | | [address], | | | | | | [place] [address] | | | | + + + + + + | AST | 39Comment: Testing | 10 - 45 U/L | EXTERNAL | | | | performed at [facility], [address] | | LAB | | | | [address], | | | | | | [place] [address] | | | | + + + + + + | ALT | 42Comment: Testing | 10 - 65 U/L | EXTERNAL | | | | performed at [facility], [address] | | LAB | | | | [address], | | | | | | [place] [address] | | | | + + + [...] | | | | | | at [facility], [address] | | | | | | [address], | | | | | | [place] [address] | | | | + + + [...] | | | | | [place] [address] | | | | + + + + + + | K | 3.9Comment: Testing | 3.5 - 4.9 | EXTERNAL | | | | performed at [facility], [address] | mmol/L | LAB | | | | [address], | | | | | | [place] [address] | | | | + + + + + + | Cl | 101Comment: Testing | 99 - 109 mmol/L | EXTERNAL | | | | performed at [facility], [address] | | LAB | | | | [address], | | | | | | [place] [address] | | | | + + + + + + | CO2 | 26Comment: Testing | 23 - 32 mmol/L | EXTERNAL | | | | performed at [facility], [address] | | LAB | | | | [address], | | | | | | [place] [address] | | | | + + + + + + | Anion Gap | 11Comment: Testing | 5 - 20 mmol/L | EXTERNAL | | | | performed at [facility], [address] | | LAB | | | | [address], | | | | | | [place] [address] | | | | + + + + + + | Glucose, | 110 (H)Comment: Testing | 65 - 99 mg/dL | EXTERNAL | | | Fasting | performed at [facility], [address] | | LAB | | | | [address], | | | | | | [place] [address] | | | | + + + + + + | BUN | 35 (H)Comment: Testing | 8 - 25 mg/dL | EXTERNAL | | | | performed at [facility], [address] | | LAB | | | | [address], | | | | | | [place] [address] | | | | + + + + + + | Creatinine | 1.27 (H)Comment: Testing | 0.50 - 1.00 | EXTERNAL | | | | performed at [facility], [address] | mg/dL | LAB | | | | [address], | | | | | | [place] [address] | | | | + + + + + + | BUN/Creatin | 28Comment: Testing | | EXTERNAL | | | ine Ratio | performed at [facility], [address] | | LAB | | | | [address], | | | | | | [place] [address] | | | | + + + + + + | Calcium | 9.2Comment: Testing | 8.5 - 10.2 | EXTERNAL | | | | performed at [facility], [address] | mg/dL | LAB | | | | [address], | | | | | | [place] [address] | | | | + + + + + + | Protein, | 6.6Comment: Testing | 6.3 - 8.2 g/dL | EXTERNAL | | | Total | performed at [facility], [address] | | LAB | | | | [address], | | | | | | [place] [address] | | | | + + + + + + | Albumin | 4.0Comment: Testing | 3.3 - 4.8 g/dL | EXTERNAL | | | | performed at [facility], [address] | | LAB | | | | [address], | | | | | | [place] [address] | | | | + + + + + + | Globulin | 2.6Comment: Testing | 1.3 - 4.9 g/dL | EXTERNAL | | | | performed at [facility], [address] | | LAB | | | | [address], | | | | | | [place] [address] | | | | + + + + + + | A/G Ratio | 1.5Comment: Testing | 1.0 - 2.4 | EXTERNAL | | | | performed at [facility], [address] | | LAB | | | | [address], | | | | | | [place] [address] | | | | + + + + + + | Bilirubin | 0.5Comment: Testing | 0.1 - 1.5 mg/dL | EXTERNAL | | | Total | performed at [facility], [address] | | LAB | | | | [address], | | | | | | [place] [address] | | | | + + + + + + | ALP, | 71Comment: Testing | 35 - 115 U/L | EXTERNAL | | | External | performed at [facility], [address] | | LAB | | | | [address], | | | | | | [place] [address] | | | | + + + + + + | AST | 37Comment: Testing | 10 - 45 U/L | EXTERNAL | | | | performed at [facility], [address] | | LAB | | | | [address], | | | | | | [place] [address] | | | | + + + + + + | ALT | 44Comment: Testing | 10 - 65 U/L | EXTERNAL | | | | performed at [facility], [address] | | LAB | | | | [address], | | | | | | [place] [address] | | | | + + + [...] [address], | | | | | | [place] [address] | | | | + + + [...] | | | Patient | performed at [facility];[address] | | LAB | | | | [address];[place], [place] | | | | | | [address] | | | | + + + [...] EXTERNAL | | | | performed at [facility], [address] | | LAB | | | | [address], | | | | | | [place] [address] | | | | + + + + + + | RED CELL | 3.82Comment: Testing | 3.70 - 5.10 | EXTERNAL | | | COUNT | performed at [facility], [address] | M/uL | LAB | | | | [address], | | | | | | [place] [address] | | | | + + + + + + | Hgb | 12.3Comment: Testing | 11.3 - 15.5 | EXTERNAL | | | | performed at [facility], [address] | g/dL | LAB | | | | [address], | | | | | | [place] [address] | | | | + + + + + + | Hematocrit, | 37.3Comment: Testing | 34.0 - 46.0 % | EXTERNAL | | | POC | performed at [facility], [address] | | LAB | | | | [address], | | | | | | [place] [address] | | | | + + + + + + | MCV | 97.5Comment: Testing | 80.0 - 100.0 fl | EXTERNAL | | | | performed at [facility], [address] | | LAB | | | | [address], | | | | | | [place] [address] | | | | + + + + + + | MCH | 32.1Comment: Testing | 27.0 - 34.0 pg | EXTERNAL | | | | performed at [facility], [address] | | LAB | | | | [address], | | | | | | [place] [address] | | | | + + + + + + | MCHC | 32.9Comment: Testing | 32.0 - 35.5 | EXTERNAL | | | | performed at [facility], [address] | g/dL | LAB | | | | [address], | | | | | | [place] [address] | | | | + + + + + + | RDW-CV | 46.8Comment: Testing | 37 - 53 fl | EXTERNAL | | | | performed at [facility], [address] | | LAB | | | | [address], | | | | | | [place] [address] | | | | + + + + + + | Platelet | 201Comment: Testing | 150 - 400 K/uL | EXTERNAL | | | Count | performed at [facility], [address] | | LAB | | | Plasma | [address], | | | | | | [place] [address] | | | | + + + + + + | MPV | 9.0Comment: Testing | fl | EXTERNAL | | | | performed at [facility], [address] | | LAB | | | | [address], | | | | | | [place] [address] | | | | + + + + + + | Differentia | AUTOMATEDComment: | | EXTERNAL | | | l Type | Testing performed at | | LAB | | | | [facility], [address] | | | | | | [place] | | | | | | [address] | | | | + + + + + + | % Segmented | 60.0Comment: Testing | % | EXTERNAL | | | | performed at [facility], [address] | | LAB | | | Neutrophils | [address], | | | | | | [place] [address] | | | | + + + + + + | % | 24.7Comment: Testing | % | EXTERNAL | | | Lymphocytes | performed at [facility], [address] | | LAB | | | | [address], | | | | | | [place] [address] | | | | + + + + + + | % Monocytes | 10.7Comment: Testing | % | EXTERNAL | | | | performed at [facility], [address] | | LAB | | | | [address], | | | | | | [place] [address] | | | | + + + + + + | % | 3.5Comment: Testing | % | EXTERNAL | | | Eosinophils | performed at [facility], [address] | | LAB | | | | [address], | | | | | | [place] [address] | | | | + + + + + + | % Basophils | 1.1Comment: Testing | % | EXTERNAL | | | | performed at [facility], [address] | | LAB | | | | [address], | | | | | | [place] [address] | | | | + + + + + + | Absolute | 5.1Comment: Testing | 1.9 - 7.4 K/uL | EXTERNAL | | | Segmented | performed at [facility], [address] | | LAB | | | Neutrophils | [address], | | | | | | [place] [address] | | | | + + + + + + | Absolute | 2.1Comment: Testing | 1.0 - 3.9 K/uL | EXTERNAL | | | Lymphocytes | performed at [facility], [address] | | LAB | | | | [address], | | | | | | [place] [address] | | | | + + + + + + | Absolute | 0.9 (H)Comment: Testing | 0 - 0.8 K/uL | EXTERNAL | | | Monocytes | performed at [facility], [address] | | LAB | | | | [address], | | | | | | [place] [address] | | | | + + + + + + | Absolute | 0.3Comment: Testing | 0 - 0.5 K/uL | EXTERNAL | | | Eosinophils | performed at [facility], [address] | | LAB | | | | [address], | | | | | | [place] [address] | | | | + + + + + + | Absolute | 0.1Comment: Testing | 0 - 0.1 K/uL | EXTERNAL | | | Basophils | performed at [facility], [address] | | LAB | | | | [address], | | | | | | [place] [address] | | | | + + + [...] | | | | | [place] [address] | | | | + + + + + + | K | 3.6Comment: Testing | 3.5 - 4.9 | EXTERNAL | | | | performed at [facility], [address] | mmol/L | LAB | | | | [address], | | | | | | [place] [address] | | | | + + + + + + | Cl | 104Comment: Testing | 99 - 109 mmol/L | EXTERNAL | | | | performed at [facility], [address] | | LAB | | | | [address], | | | | | | [place] [address] | | | | + + + + + + | CO2 | 25Comment: Testing | 23 - 32 mmol/L | EXTERNAL | | | | performed at [facility], [address] | | LAB | | | | [address], | | | | | | [place] [address] | | | | + + + + + + | Anion Gap | 11Comment: Testing | 5 - 20 mmol/L | EXTERNAL | | | | performed at [facility], [address] | | LAB | | | | [address], | | | | | | [place] [address] | | | | + + + + + + | Glucose, | 114 (H)Comment: Testing | 65 - 99 mg/dL | EXTERNAL | | | Fasting | performed at [facility], [address] | | LAB | | | | [address], | | | | | | [place] [address] | | | | + + + + + + | BUN | 33 (H)Comment: Testing | 8 - 25 mg/dL | EXTERNAL | | | | performed at [facility], [address] | | LAB | | | | [address], | | | | | | [place] [address] | | | | + + + + + + | Creatinine | 1.20 (H)Comment: Testing | 0.50 - 1.00 | EXTERNAL | | | | performed at [facility], [address] | mg/dL | LAB | | | | [address], | | | | | | [place] [address] | | | | + + + + + + | BUN/Creatin | 28Comment: Testing | | EXTERNAL | | | ine Ratio | performed at [facility], [address] | | LAB | | | | [address], | | | | | | [place] [address] | | | | + + + + + + | Calcium | 8.7Comment: Testing | 8.5 - 10.2 | EXTERNAL | | | | performed at [facility], [address] | mg/dL | LAB | | | | [address], | | | | | | [place] [address] | | | | + + + + + + | Protein, | 6.0 (L)Comment: Testing | 6.3 - 8.2 g/dL | EXTERNAL | | | Total | performed at [facility], [address] | | LAB | | | | [address], | | | | | | [place] [address] | | | | + + + + + + | Albumin | 3.7Comment: Testing | 3.3 - 4.8 g/dL | EXTERNAL | | | | performed at [facility], [address] | | LAB | | | | [address], | | | | | | [place] [address] | | | | + + + + + + | Globulin | 2.3Comment: Testing | 1.3 - 4.9 g/dL | EXTERNAL | | | | performed at [facility], [address] | | LAB | | | | [address], | | | | | | [place] [address] | | | | + + + + + + | A/G Ratio | 1.6Comment: Testing | 1.0 - 2.4 | EXTERNAL | | | | performed at [facility], [address] | | LAB | | | | [address], | | | | | | [place] [address] | | | | + + + + + + | Bilirubin | 0.5Comment: Testing | 0.1 - 1.5 mg/dL | EXTERNAL | | | Total | performed at [facility], [address] | | LAB | | | | [address], | | | | | | [place] [address] | | | | + + + + + + | ALP, | 65Comment: Testing | 35 - 115 U/L | EXTERNAL | | | External | performed at [facility], [address] | | LAB | | | | [address], | | | | | | [place] [address] | | | | + + + + + + | AST | 37Comment: Testing | 10 - 45 U/L | EXTERNAL | | | | performed at [facility], [address] | | LAB | | | | [address], | | | | | | [place] [address] | | | | + + + + + + | ALT | 40Comment: Testing | 10 - 65 U/L | EXTERNAL | | | | performed at [facility], [address] | | LAB | | | | [address], | | | | | | [place] [address] | | | | + + + [...] | | | | | | at [facility], [address] | | | | | | [address], | | | | | | [place] [address] | | | | + + + [...] | | | Patient | performed at [facility] | | LAB | | | | [address];[place], [place] | | | | | | [address] | | | | + + + [...] | | LAB | | | | [address], | | | | | | [place] [address] | | | | + + + + + + | RED CELL | 3.94Comment: Testing | 3.70 - 5.10 | EXTERNAL | | | COUNT | performed at [facility], [address] | M/uL | LAB | | | | [address], | | | | | | [place] [address] | | | | + + + + + + | Hgb | 12.8Comment: Testing | 11.3 - 15.5 | EXTERNAL | | | | performed at [facility], [address] | g/dL | LAB | | | | [address], | | | | | | [place] [address] | | | | + + + + + + | Hematocrit, | 38.8Comment: Testing | 34.0 - 46.0 % | EXTERNAL | | | POC | performed at [facility], [address] | | LAB | | | | [address], | | | | | | [place] [address] | | | | + + + + + + | MCV | 98.5Comment: Testing | 80.0 - 100.0 fl | EXTERNAL | | | | performed at [facility], [address] | | LAB | | | | [address], | | | | | | [place] [address] | | | | + + + + + + | MCH | 32.5Comment: Testing | 27.0 - 34.0 pg | EXTERNAL | | | | performed at [facility], [address] | | LAB | | | | [address], | | | | | | [place] [address] | | | | + + + + + + | MCHC | 33.0Comment: Testing | 32.0 - 35.5 | EXTERNAL | | | | performed at [facility], [address] | g/dL | LAB | | | | [address], | | | | | | [place] [address] | | | | + + + + + + | RDW-CV | 48.6Comment: Testing | 37 - 53 fl | EXTERNAL | | | | performed at [facility], [address] | | LAB | | | | [address], | | | | | | [place] [address] | | | | + + + + + + | Platelet | 219Comment: Testing | 150 - 400 K/uL | EXTERNAL | | | Count | performed at [facility], [address] | | LAB | | | Plasma | [address], | | | | | | [place] [address] | | | | + + + + + + | MPV | 9.9Comment: Testing | fl | EXTERNAL | | | | performed at [facility], [address] | | LAB | | | | [address], | | | | | | [place] [address] | | | | + + + + + + | Differentia | AUTOMATEDComment: | | EXTERNAL | | | l Type | Testing performed at | | LAB | | | | [facility], [address] | | | | | | [address], [place] | | | | | | [address] | | | | + + + + + + | % Segmented | 70.4Comment: Testing | % | EXTERNAL | | | | performed at [facility], [address] | | LAB | | | Neutrophils | [address], | | | | | | [place] [address] | | | | + + + + + + | % | 18.3Comment: Testing | % | EXTERNAL | | | Lymphocytes | performed at [facility], [address] | | LAB | | | | [address], | | | | | | [place] [address] | | | | + + + + + + | % Monocytes | 8.8Comment: Testing | % | EXTERNAL | | | | performed at [facility], [address] | | LAB | | | | [address], | | | | | | [place] [address] | | | | + + + + + + | % | 1.5Comment: Testing | % | EXTERNAL | | | Eosinophils | performed at [facility], [address] | | LAB | | | | [address], | | | | | | [place] [address] | | | | + + + + + + | % Basophils | 1.0Comment: Testing | % | EXTERNAL | | | | performed at [facility], [address] | | LAB | | | | [address], | | | | | | [place] [address] | | | | + + + + + + | Absolute | 6.8Comment: Testing | 1.9 - 7.4 K/uL | EXTERNAL | | | Segmented | performed at [facility], [address] | | LAB | | | Neutrophils | [address], | | | | | | [place] [address] | | | | + + + + + + | Absolute | 1.8Comment: Testing | 1.0 - 3.9 K/uL | EXTERNAL | | | Lymphocytes | performed at [facility], [address] | | LAB | | | | [address], | | | | | | [place] [address] | | | | + + + + + + | Absolute | 0.9 (H)Comment: Testing | 0 - 0.8 K/uL | EXTERNAL | | | Monocytes | performed at [facility], [address] | | LAB | | | | [address], | | | | | | [place] [address] | | | | + + + + + + | Absolute | 0.1Comment: Testing | 0 - 0.5 K/uL | EXTERNAL | | | Eosinophils | performed at [facility], [address] | | LAB | | | | [address], | | | | | | [place] [address] | | | | + + + + + + | Absolute | 0.1Comment: Testing | 0 - 0.1 K/uL | EXTERNAL | | | Basophils | performed at [facility], [address] | | LAB | | | | [address], | | | | | | [place] [address] | | | | + + + [...] | | | Patient | performed at [facility];[address] | | LAB | | | | [address];[place] | | | | | | [address] | | | | + + + [...] structurally normal. Tricuspid Valve: | | | Mdfa-ds-[id number] tricuspid regurgitation present. Tricuspid Valve: | | [...] | | | Excursion: 1.41 cm E-F Grant: 0.11 m/s EPSS: 2.07 cm HR: | [...] 0.20 m/s | | | TV Dec Grant: 3.17 m/s2 TV Dec Time: 152.22 ms TV E Shola: | | | 0.48 m/s TV E/A Ratio: 2.32 Plate Former: OLIVER Authenticated by: | | | Thomas [...] valve appears structurally normal.Tricuspid | | Valve: Iaup-hz-sfnlwatt tricuspid regurgitation present.Tricuspid Valve: There is | [...] (A-L): 32.33 ml/m2LAAs A2C: | | 19.31 hw3HADDE A-L A2C: 60.19 mlLALs A2C: 5.26 cmLAAs A4C: 16.58 [id number] A-L A4C: | | 50.79 mlLALs A4C: 4.59 cmAo Diam: 2.73 cmAV Cusp: 1.32 cmLA Diam: 4.49 | | cmLA/Ao: 1.64D-E Excursion: 1.41 cmE-F Grant: 0.11 m/sEPSS: 2.07 cmHR: 122.34 | | BPMAV maxP.92 mmHgAV meanP.07 mmHgAV Vmax: 0.66 m/Evelin Vmean: 0.45 m/Evelin | | VTI: 8.85 cmAVA Vmax: 2.12 cm2AVA (VTI): 2.07 [id number] Dopp: 1.23 l/qvdj5ZBMI | | Dopp: 2.26 l/minHR: 123.39 BPMLVOT [...] A Shola: 0.20 m/sTV | | Dec Grant: 3.17 m/s2TV Dec Time: 152.22 msTV E Shola: 0.48 m/sTV E/A Ratio: 2.32 | | Plate Former: GDAuthenticated by: [facility] Date/Time: 09-11-2013 15:19:20 | | IMPRESSION: [...] | |D-E Excursion: 1.41 cm | |E-F Grant: 0.11 m/s | |EPSS: 2.07 cm | [...] A Shola: 0.20 m/s | |TV Dec Grant: 3.17 m/s2 | |TV Dec Time: 152.22 ms | |TV E Shola: 0.48 m/s | |TV E/A Ratio: 2.32 | | | |Plate Former: GD | |Authenticated by: Thomas Bynum MD [...] | | | | | performed at [facility];[address] | | | | | | [address];[place] | | | | | | [address] | | | | + + + [...] EXTERNAL | | | | performed at [facility];[address] | | LAB | | | | [address] [address];[place] | | | | | | [address] | | | | + + + [...] | | | | | | ACUTE NM CKTRP PHONED TO | | | | | | 6RP JOANA AT 0640 BY | | | | | | LJREAD BACK RESULTS | | | | | | VERIFIEDTesting | | | | | | performed at [facility];[address] | | | | | | [address];[place], [place] | | | | | | [address] | | | | + + [...] | | | | | | [place] [address] | | | | + + + + + + | RED CELL | 3.88Comment: Testing | 3.70 - 5.10 | EXTERNAL | | | COUNT | performed at [facility], [address] | M/uL | LAB | | | | [address], | | | | | | [place] [address] | | | | + + + + + + | Hgb | 12.4Comment: Testing | 11.3 - 15.5 | EXTERNAL | | | | performed at [facility], [address] | g/dL | LAB | | | | [address], | | | | | | [place] [address] | | | | + + + + + + | Hematocrit, | 38.0Comment: Testing | 34.0 - 46.0 % | EXTERNAL | | | POC | performed at [facility], [address] | | LAB | | | | [address], | | | | | | [place] [address] | | | | + + + + + + | MCV | 97.9Comment: Testing | 80.0 - 100.0 fl | EXTERNAL | | | | performed at [facility], [address] | | LAB | | | | [address], | | | | | | [place] [address] | | | | + + + + + + | MCH | 32.0Comment: Testing | 27.0 - 34.0 pg | EXTERNAL | | | | performed at [facility], [address] | | LAB | | | | [address], | | | | | | [place] [address] | | | | + + + + + + | MCHC | 32.7Comment: Testing | 32.0 - 35.5 | EXTERNAL | | | | performed at [facility], [address] | g/dL | LAB | | | | [address], | | | | | | [place] [address] | | | | + + + + + + | RDW-CV | 49.0Comment: Testing | 37 - 53 fl | EXTERNAL | | | | performed at [facility], [address] | | LAB | | | | [address], | | | | | | [place] [address] | | | | + + + + + + | Platelet | 213Comment: Testing | 150 - 400 K/uL | EXTERNAL | | | Count | performed at [facility], [address] | | LAB | | | Plasma | [address], | | | | | | [place] [address] | | | | + + + + + + | MPV | 9.1Comment: Testing | fl | EXTERNAL | | | | performed at [facility], [address] | | LAB | | | | [address], | | | | | | [place] [address] | | | | + + + + + + | Differentia | AUTOMATEDComment: | | EXTERNAL | | | l Type | Testing performed at | | LAB | | | | [facility], [address] | | | | | | [place] | | | | | | [address] | | | | + + + + + + | % Segmented | 75.3Comment: Testing | % | EXTERNAL | | | | performed at [facility], [address] | | LAB | | | Neutrophils | [address] [place], | | | | | | [place] [address] | | | | + + + + + + | % | 13.3Comment: Testing | % | EXTERNAL | | | Lymphocytes | performed at [facility], [address] | | LAB | | | | [address], | | | | | | [place] [address] | | | | + + + + + + | % Monocytes | 11.0Comment: Testing | % | EXTERNAL | | | | performed at [facility], [address] | | LAB | | | | [address], | | | | | | [place] [address] | | | | + + + + + + | % | 0.1Comment: Testing | % | EXTERNAL | | | Eosinophils | performed at [facility], [address] | | LAB | | | | [address], | | | | | | [place] [address] | | | | + + + + + + | % Basophils | 0.3Comment: Testing | % | EXTERNAL | | | | performed at [facility], [address] | | LAB | | | | [address], | | | | | | [place] [address] | | | | + + + + + + | Absolute | 6.3Comment: Testing | 1.9 - 7.4 K/uL | EXTERNAL | | | Segmented | performed at [facility], [address] | | LAB | | | Neutrophils | [address], | | | | | | [place] [address] | | | | + + + + + + | Absolute | 1.1Comment: Testing | 1.0 - 3.9 K/uL | EXTERNAL | | | Lymphocytes | performed at [facility], [address] | | LAB | | | | [address], | | | | | | [place] [address] | | | | + + + + + + | Absolute | 0.9 (H)Comment: Testing | 0 - 0.8 K/uL | EXTERNAL | | | Monocytes | performed at [facility], [address] | | LAB | | | | [address], | | | | | | [place] [address] | | | | + + + + + + | Absolute | 0.0Comment: Testing | 0 - 0.5 K/uL | EXTERNAL | | | Eosinophils | performed at [facility], [address] | | LAB | | | | [address], | | | | | | [place] [address] | | | | + + + + + + | Absolute | 0.0Comment: Testing | 0 - 0.1 K/uL | EXTERNAL | | | Basophils | performed at [facility], [address] | | LAB | | | | [address], | | | | | | [place] [address] | | | | + + + [...] EXTERNAL | | | | performed at [facility], [address] | uIU/mL | LAB | | | | [address], | | | | | | [place] [address] | | | | + + + [...] EXTERNAL | | | | performed at [facility], [address] | | LAB | | | | [address], | | | | | | [place] [address] | | | | + + + [...] [address] | | | | [address];[place] [address] | | | | + + + [...] EXTERNAL | | | | performed at [facility], [address] | | LAB | | | | [address], | | | | | | [place] [address] | | | | + + + [...] + + | Hemoglobin | 5.7Comment: The [place]i | 4.0 - 6.0 % | EXTERNAL [...] | | | | | performed at [facility], [address] | | | | | [address], | | | | | | [place] [address] | | | | + + + [...] | | | | | performed at [facility], [address] | | | | | | [facility], | | | | | | [place] [address] | | | | + + + [...] EXTERNAL | | | | performed at [facility];[address] | | LAB | | | | [address];[place], [place] | | | | | | [address] | | | | + + + [...] | | | Direct | performed at [facility], [address] | | LAB | | | | [address], | | | | | | [place] [address] | | | | + + + [...] | | | | | [place] [address] | | | | + + + + + + | K | 4.5Comment: Testing | 3.5 - 4.9 | EXTERNAL | | | | performed at [facility], [address] | mmol/L | LAB | | | [address], | | | | | | [place] [address] | | | | + + + + + + | Cl | 105Comment: Testing | 99 - 109 mmol/L | EXTERNAL | | | | performed at [facility], [address] | | LAB | | | | [address], | | | | | | [place] [address] | | | | + + + + + + | CO2 | 22 (L)Comment: Testing | 23 - 32 mmol/L | EXTERNAL | | | | performed at [facility], [address] | | LAB | | | | [address], | | | | | | [place] [address] | | | | + + + + + + | Anion Gap | 12Comment: Testing | 5 - 20 mmol/L | EXTERNAL | | | | performed at [facility], [address] | | LAB | | | | [address], | | | | | | [place] [address] | | | | + + + + + + | Glucose, | 135 (H)Comment: Testing | 65 - 99 mg/dL | EXTERNAL | | | Fasting | performed at [facility], [address] | | LAB | | | | [address], | | | | | | [place] [address] | | | | + + + + + + | BUN | 25Comment: Testing | 8 - 25 mg/dL | EXTERNAL | | | | performed at [facility], [address] | | LAB | | | | [address], | | | | | | [place] [address] | | | | + + + + + + | Creatinine | 1.36 (H)Comment: Testing | 0.50 - 1.00 | EXTERNAL | | | | performed at [facility], [address] | mg/dL | LAB | | | | [address], | | | | | | [place] [address] | | | | + + + + + + | BUN/Creatin | 18Comment: Testing | | EXTERNAL | | | ine Ratio | performed at [facility], [address] | | LAB | | | | [address], | | | | | | [place] [address] | | | | + + + + + + | Calcium | 9.1Comment: Testing | 8.5 - 10.2 | EXTERNAL | | | | performed at [facility], [address] | mg/dL | LAB | | | | [address], | | | | | | [place] [address] | | | | + + + + + + | Protein, | 6.4Comment: Testing | 6.3 - 8.2 g/dL | EXTERNAL | | | Total | performed at [facility], [address] | | LAB | | | | [address], | | | | | | [place] [address] | | | | + + + + + + | Albumin | 3.9Comment: Testing | 3.3 - 4.8 g/dL | EXTERNAL | | | | performed at [facility], [address] | | LAB | | | | [address], | | | | | | [place] [address] | | | | + + + + + + | Globulin | 2.5Comment: Testing | 1.3 - 4.9 g/dL | EXTERNAL | | | | performed at [facility], [address] | | LAB | | | | [address], | | | | | | [place] [address] | | | | + + + + + + | A/G Ratio | 1.6Comment: Testing | 1.0 - 2.4 | EXTERNAL | | | | performed at [facility], [address] | | LAB | | | | [address], | | | | | | [place] [address] | | | | + + + + + + | Bilirubin | 0.5Comment: Testing | 0.1 - 1.5 mg/dL | EXTERNAL | | | Total | performed at [facility], [address] | | LAB | | | | [address], | | | | | | [place] [address] | | | | + + + + + + | ALP, | 71Comment: Testing | 35 - 115 U/L | EXTERNAL | | | External | performed at [facility], [address] | | LAB | | | | [address], | | | | | | [place] [address] | | | | + + + + + + | AST | 38Comment: Testing | 10 - 45 U/L | EXTERNAL | | | | performed at [facility], [address] | | LAB | | | | [address], | | | | | | [place] [address] | | | | + + + + + + | ALT | 43Comment: Testing | 10 - 65 U/L | EXTERNAL | | | | performed at [facility], [address] | | LAB | | | | [address], | | | | | | [place] [address] | | | | + + + [...] | | | | | | at [facility], [address] | | | | | | [address], | | | | | | [place] [address] | | | | + + + [...] EXTERNAL | | | | performed at [facility];[address] | | LAB | | | | [address];[place] | | | | | | [address] | | | | + + + + + + | RED CELL | 3.79Comment: Testing | 3.70 - 5.10 | EXTERNAL | | | COUNT | performed at [facility];[address] | M/uL | LAB | | | | [address];[place] | | | | | | [address] | | | | + + + + + + | Hgb | 12.1Comment: Testing | 11.3 - 15.5 | EXTERNAL | | | | performed at [facility];[address] | g/dL | LAB | | | | [address];[place] | | | | | | [address] | | | | + + + + + + | Hematocrit, | 36.2Comment: Testing | 34.0 - 46.0 % | EXTERNAL | | | POC | performed at [facility];[address] | | LAB | | | | [address];[place] | | | | | | [address] | | | | + + + + + + | MCV | 95.5Comment: Testing | 80.0 - 100.0 fl | EXTERNAL | | | | performed at [facility];[address] | | LAB | | | | [address];[place] | | | | | | [address] | | | | + + + + + + | MCH | 32.0Comment: Testing | 27.0 - 34.0 pg | EXTERNAL | | | | performed at [facility];[address] | | LAB | | | | [address];[place] | | | | | | [address] | | | | + + + + + + | MCHC | 33.5Comment: Testing | 32.0 - 35.5 | EXTERNAL | | | | performed at [facility];[address] | g/dL | LAB | | | | [address];[place] | | | | | | [address] | | | | + + + + + + | RDW-CV | 48.1Comment: Testing | 37 - 53 fl | EXTERNAL | | | | performed at [facility];[address] | | LAB | | | | [address];[place] | | | | | | [address] | | | | + + + + + + | Platelet | 210Comment: Testing | 150 - 400 K/uL | EXTERNAL | | | Count | performed at [facility];888 | | LAB | | | Plasma | [address];[place] | | | | | | [address] | | | | + + + + + + | MPV | 8.5Comment: Testing | fl | EXTERNAL | | | | performed at [facility];[address] | | LAB | | | | [address];[place] | | | | | | [address] | | | | + + + [...] | | | Patient | performed at [facility];888 | | LAB | | | | [address];[place], [place] | | | | | | [address] | | | | + + + [...] | | | | | performed at [facility] | | | | | | [address];[place], [place] | | | | | | [address] | | | | + + + [...] EXTERNAL | | | | performed at [facility];888 | | LAB | | | | [address];[place] | | | | | | [address] | | | | + + + [...] | | | | | | ACUTE NM CKTRP PHONED TO | | | | | | 6RP KARMEN W AT 0100 BY | | | | | | LJREAD BACK RESULTS | | | | | | VERIFIEDTesting | | | | | | performed at [facility];888 | | | | | | [address];[place], [place] | | | | | | [address] | | | | + + + [...] EXTERNAL | | | | performed at [facility];8 | | LAB | | | | [address];[place], [place] | | | | | | [address] | | | | + + + [...] EXTERNAL | | | | performed at [facility];[address] | | LAB | | | | [address];[place] | | | | | | [address] | | | | + + + + + + | PCO2 ART | 29 (L)Comment: Testing | 35 - 45 mmHg | EXTERNAL | | | | performed at [facility];[address] | | LAB | | | | [address];[place] | | | | | | [address] | | | | + + + + + + | PO2 ART | 80Comment: Testing | 80 - 105 mmHg | EXTERNAL | | | | performed at [facility];[address] | | LAB | | | | [address];[place] | | | | | | [address] | | | | + + + + + + | Lactate, | 2.5 (H)Comment: Testing | 0.36 - 1.25 | EXTERNAL | | | Arterial | performed at [facility];888 | mmol/L | LAB | | | | [address];[place] | | | | | | [address] | | | | + + + + + + | HCO3 ART | 17 (L)Comment: Testing | 22 - 26 mmol/L | EXTERNAL | | | | performed at [facility];[address] | | LAB | | | | [address];[place] | | | | | | [address] | | | | + + + + + + | POC | 18 (L)Comment: Testing | 23 - 27 mEq/L | EXTERNAL | | | APPEARANCE | performed at [facility];888 | | LAB | | | UA | [address];[place] | | | | | | [address] | | | | + + + + + + | Base | 8 (H)Comment: Testing | 0.0 - 2.0 | EXTERNAL | | | deficit | performed at [facility];888 | mmol/L | LAB | | | | [address];[place] | | | | | | [address] | | | | + + + + + + | O2 SAT ART | 96Comment: Testing | 95 - 98 % | EXTERNAL | | | | performed at [facility];[address] | | LAB | | | | [address];[place] | | | | | | [address] | | | | + + + + + + | FiO2, POC | 28Comment: Testing | % | EXTERNAL | | | | performed at [facility];[address] | | LAB | | | | [address];[place] | | | | | | [address] | | | | + + + [...] | | LAB | | | | [facility];[address] [facility] | | | | | | Blvd;[place] [address] | | | | + + + [...]
--- OUTSIDE RECORDS SUMMARY | ~2019-03-06 | XMS | Encounter Summary ---
Demographics + + + | Address | [address] | | | [place] [address] | + + + | Home Phone [...] [place] | | | | | [address] | | + + + + + | Rivka Palma | ECON | Unknown | | + + + + + | Geno Kendall | ECON | Unknown | | + + + + + Care Team Providers + +------+ + | Care Sheet Metal Foreman Name | Role | Phone | [...] | | fibrosis, | [address] | [place], [place] | | | | | unspecified | [place], [place] | [address] | | | | | ([facility]) | [address] | Phone: | | | | | | Phone: | [phone] | | | | | | [phone] | Fax: | | | | | | Fax: | [phone] | | | | | | [phone] | | + +--------+ + + + + Encounter Details +--------+---------+ + + + | Date | Type | Department | Care Team | Description | +--------+---------+ + + + | 12/08/ | Office | [facility] | Td Mondragon MD | Moderate persistent | | 2019 | Visit | PULMONOLOGY [address] | [address] | asthma, unspecified | | | | [address] | [place], [place] | whether complicated | | | | [place], [place] | [address] | (Primary Dx); | | | | [address] | | Ischemic | | | | [phone] | | cardiomyopathy; | | | | [...] 10:10 AM PDT Subjective: Patient ID: Tamiko Ireladn 88 y.o. is here for evaluation of [...] Diagnosis Date Acute kidney injury ([facility]) 09/30/2013 Allergic rhinitis Asthma Bronchiectasis ([facility]) CAD (coronary artery disease) 09/13/2013 s/p CABG x5 (HANSON to mid LAD and distal LAD, SVG to RI, SVG to OM, SVG to PDA) 11/24 Diabetes mellitus, type 2 ([facility]) Diabetes mellitus, type 2 ([facility]) Hypercholesterolemia Hyperlipidemia Hypertension Hypertension Hypokalemia 10/18/2013 Hypothyroidism Hypothyroidism Ischemic cardiomyopathy Left bundle branch block Non-ST elevated myocardial infarction (non-STEMI) ([facility]) 12/08/2013 Osteoarthritis Pneumonia Status post internal cardiac [...] CELSO; Surgeon: Niraj Celis MD; Location: [facility]; Service: [facility]; Laterality: N/A; HIP SURGERY HYSTERECTOMY HYSTERECTOMY partial OTHER SURGICAL HISTORY CATARACT EXTRACTION OTHER SURGICAL HISTORY Left 12/09/2013 INTERNAL MAMMARY ARTERIAL HARVEST - Procedure: INTERNAL MAMMARY ARTERIAL HARVEST; Surgeon : Niraj Celis MD; Location: [facility]; Service: Cardiac; Laterality: Left; OTHER SURGICAL HISTORY Right 12/09/2013 ENDOVASCULAR VEIN HARVEST - Procedure: VEIN - ENDOVASCULAR VEIN HARVEST; Surgeon: Niraj waters MD; Location: [facility]; Service: Cardiac; Laterality: Right; OTHER SURGICAL HISTORY UNLISTED PROCEDURE ARTHROSCOPY - Screws in Right hip OTHER SURGICAL HISTORY HARDWARE PRESENT - screws in right hip PACEMAKER INSERTION 2013 STERNOTOMY 12/09/2013 Procedure: STERNOTOMY; Surgeon: Niraj Celis MD; Location: [facility]; Service: Card iac;; TRANSTHORACIC ECHOCARDIOGRAM 09/2018 EF 20-25%, mild MR, mild TR, mild NE, RVSP 31 Social History Socioeconomic History Marital [...] file Social History Narrative She lives in [place]. to Alfredo 1949. Has mainly been a [...] Mondragon MD Pulmonary and Critical Care Medicine [address] , [place] [address] documented in this enco unter Plan of [...] [place] | | | | | | [address] | | | | | | | [...] [place] | | | | | | [address] | | | | | | | [...]
--- OUTSIDE RECORDS SUMMARY | ~2019-03-06 | XMS | Encounter Summary ---
Demographics + + + | Address | [address] | | | [place] [address] | + + + | Home Phone | | + + + | Preferred Language | Unknown | + + + | Marital Status | | + + + | Mandaen Affiliation | 1041 | + + + | Race | Unknown | + + + | Ethnic Group | Unknown | + + + Author + + + | Author | [facility] | | | and [place] | + + + | Organization | [facility] | | [...] [place] | | | | | [address] | | + + + + + | Rivka Palma | ECON | Unknown | | + + + + + | Geno Kendall | ECON | Unknown | | + + + + + Care Team Providers + +------+ + | Care Coke Loader Name | Role | Phone | + [...] + + | 12/09/ | Telephone | [facility] | Td Mondragon MD | Medication Refill | | 2019 | | PULMONOLOGY [address] | [address] | Assistance | | | | [address] | [place], [place] | | | | | [place], [place] | [address] | | | | | [address] | | | | | | [phone] | | | +--------+ + + + [...] [place] | | | | | | [address] | | | | | | | [...] [place] | | | | | | [address] | | | | | | | | +--------+ + + + + documented as of this encounter Visit Diagnoses Not on filedocumented in this encounter"
--- OUTSIDE RECORDS SUMMARY | ~2019-03-06 | XMS | Encounter Summary ---
Demographics + + + | Address | [address] | | | [place] [address] | + + + | Home Phone | | + + + | Preferred Language | Unknown | + + + | Marital Status | | + + + | Worship Affiliation | 1041 | + + + | Race | Unknown | + + + | Ethnic Group | Unknown | + + + Author + + + | Author | [facility] | | | and [place] | + + + | Organization | [facility] | | [...] [place], [place] | | | | | [address] | | + + + + + | Rivka Palma | ECON | Unknown | | + + + + + | Geno Kendall | ECON | Unknown | | + + + + + Care Team Providers + +------+ + | Care Literary Writer Name | Role | Phone | + +------+ + | Lorenzo Valdes MD | PCP | | + +------+ + Encounter Details +--------+ + + + + | Date | Type | Department | Care Team | Description | +--------+ + + + + | 09/27/ | Hospital | [facility] | Conversion | Coronary artery | | 2019 | Encounter | [facility] | Transaction, | disease of bypass | | | | ECHOCARDIOGRAPHY | Provider Unknown | graft of [place] | | | | [address] | [phone] | heart with stable | | | | [place], [place] | | angina pectoris | | | | [address] | | ([facility]); Ischemic | | | | [phone] | | cardiomyopathy | +--------+ + + [...] | | | | | ([facility]), Bronchitis, | | | | | | | obstructive, chronic | | | | | | | ([facility]) | | | | | | [...] | | | | | ([facility]), Bronchitis, | | | | | | | obstructive, chronic | | | | | | | ([facility]), Asthma, | | | | | | [...] [place] | | | | | | [address] | | | | | | | [...] [place] | | | | | | [address] | | | | | | | [...] | | | INDICATIONS Shortness of Breath; ANTISQUEAK APPLIER optimization; CAD | | | of bypass graft of [place] heart with stable angina pectoris; | | [...] LA/Ao: 1.41 D-E Excursion: 1.29 cm E-F Bradley: 0.07 m/s | | | EPSS: 2.14 cm TAPSE: 1.03 cm IVC diameter: 1.38 cm IVC | | | collapse: 0.47 cm IVC % collapse: 64.24 % AR Dec Bradley: | | | 1.53 m/s2 AR Dec [...] m/s PAEDP: 13.79 mmHg HR: 71.49 BPM MO maxPG: | | | 12.93 mmHg MO meanP.35 mmHg MO Vmax: 1.79 m/s MO Vmean: | | | 1.48 m/s MO VTI: 75.20 cm PRend P.79 mmHg PRend [...] 0.59 m/s TV | | | Dec Bradley: 1.70 m/s2 TV Dec Time: 277.39 ms TV E Shola: 0.47 | | | m/s TV E/A Ratio: 0.78 Dining Room Attendant Cafeteria: [place] Authenticated by: | | | Chapo Stock MD Report Date/Time: -- [id number] | | + + + + + | Procedure Note | + + | César Hawkins Conversion - 11/23/2018 9:06 PM PDT Patient Name: Romie CROCKETT of | | : 1930 Performing Physician: Chapo Stock | | INDICATIONS S | | hortness of Breath; ANTISQUEAK APPLIER optimization; CAD of bypass graft of [place] heart with stable | | angina pectoris; [...] (A-L): 32.20 ml/m2LAAs A2C: 18.17 | | [id number] A-L A2C: 53.20 mlLALs A2C: 5.27 cmLAAs A4C: 16.85 [id number] A-L A4C: | | 49.87 mlLALs A4C: 4.83 cmAo Diam: 3.04 cmAV Cusp: 1.03 cmLA Diam: 4.31 cmLA/Ao: | | 1.41D-E Excursion: 1.29 cmE-F Bradley: 0.07 m/sEPSS: 2.14 cmTAPSE: 1.03 cmIVC | | diameter: 1.38 cmIVC collapse: 0.47 cmIVC % collapse: 64.24 %AR Dec Bradley: 1.53 | | m/s2AR Dec Time: 2250.10 [...] 26.00 cmAVA Vmax: 1.05 cm2AVA (VTI): 1.11 il7WGAR Vmax: 0.00 | | cm2/m2AVAI (VTI): 0.00 cm2/m2LVCI Dopp: 1.20 l/[id number] Dopp: 2.01 l/minHR: | | 69.60 BPMLVOT [...] 2.52 m/sTV A Shola: 0.59 m/sTV Dec Bradley: 1.70 m/s2TV | | Dec Time: 277.39 msTV E Shola: 0.47 m/sTV E/A Ratio: 0.78 Dining Room Attendant Cafeteria: | | MIKAuthenticated by: Chapo Stock MDReport Date/Time: -- [id number] | | IMPRESSION: 1. The left ventricle [...] | |D-E Excursion: 1.29 cm | |E-F Bradley: 0.07 m/s | |EPSS: 2.14 cm | |TAPSE: 1.03 cm | |IVC diameter: 1.38 cm | |IVC collapse: 0.47 cm | |IVC % collapse: 64.24 % | |AR Dec Bradley: 1.53 m/s2 | |AR Dec Time: 2250.10 [...] 13.79 mmHg | |HR: 71.49 BPM | |MO maxP.93 mmHg | |MO meanP.35 mmHg | |MO Vmax: 1.79 m/s | |MO Vmean: 1.48 m/s | |MO VTI: 75.20 cm | |PRend P.79 mmHg [...] A Shola: 0.59 m/s | |TV Dec Bradley: 1.70 m/s2 | |TV Dec Time: 277.39 ms | |TV E Shola: 0.47 m/s | |TV E/A Ratio: 0.78 | | | |Dining Room Attendant Cafeteria: [place]ARD | |Authenticated by: Chapo Stock MD | |Report Date/Time: -- [id number] | | | |IMPRESSION: | |1. 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
--- OUTSIDE RECORDS SUMMARY | ~2019-03-06 | XMS | Encounter Summary ---
Demographics + + + | Address | [address] | | | [place] [address] | + + + | Home Phone | | + + + | Preferred Language | Unknown | + + + | Marital Status | | + + + | Jew Affiliation | 1041 | + + + [...] [place] | | | | | [address] | | + + + + + | Rivka Palma | ECON | Unknown | | + + + + + | Geno Kendall | ECON | Unknown | | + + + + + Care Team Providers + +------+ + | Care Shop Repairer Name | Role | Phone | + [...] Description | +--------+---------+ + + + | 12/20/ | Office | [facility] | Bob Puentes | Ischemic | | 2019 | Visit | CARDIOLOGY [place] | MD [address] | cardiomyopathy | | | | [address] | [facility] | (Primary Dx); Status | | | | [place], [place] | [place] | post internal | | | | [address] | [address] | cardiac | | | | [phone] | | defibrillator | | | | | | procedure; | | | | | | Ventricular | | | | | | premature beats; | | | | | | Abnormal chest x-ray | +--------+---------+ + + + Social History [...] + + + | Blood Pressure | 128/68 | 12/20/2018 1:31 PM | | | | | PDT | | + + + + + | Pulse | 79 | 12/20/2018 1:31 PM | | | | | PDT | | + + + + + | Temperature | - | - | | + + + + + | Respiratory Rate | - | - | | + + + + + | Oxygen Saturation | 93% | 12/20/2018 1:31 PM | | | | | PDT | | + + + + + | Inhaled Oxygen | - | - | | | Concentration | | | | + + + + + | Weight | 64 kg (141 lb 1.6 | 12/20/2018 1:31 PM | | | | oz) | PDT | | + + + + + | Height | 165.1 cm (5' 5") | 12/20/2018 1:31 PM | | | | | PDT | | + + + + + | Body Mass Index | 23.48 | 12/20/2018 1:31 PM | | | | | PDT | | + + + + + documented in this encounter Progress Notes Bob Puentes MD - 12/20/2018 1:30 PM PDTFormatting of this note might be dif ferent from the original. Subjective: Referring MD: No ref. provider found Chief Complaint Patient presents with Follow-up HPI: This is a 88 y.o. female who presents today for follow-up of her biventricular pacemak er/ICD. Since her last visit Ms. Ireland was able to stop amiodarone. She was seen by pulmon ology and was started on an nebulizer which has improved her secretions and cough. She cont inues to do her usual activity without any new limitations or symptoms. She denies any curr ent chest pain, dizziness, lightheadedness, palpitations, or recent syncope. Past Medical History: Diagnosis Date Acute kidney injury (HCC) 09/30/2013 Allergic rhinitis Asthma Bronchiectasis ([facility]) CAD (coronary artery disease) 09/13/2013 s/p CABG x5 (HANSON to mid LAD and distal LAD, SVG to RI, SVG to OM, SVG to PDA) 11/24 COPD (chronic obstructive pulmonary disease) ([facility]) Diabetes mellitus, type 2 ([facility]) Diabetes mellitus, type 2 ([facility]) Hypercholesterolemia Hyperlipidemia Hypertension Hypokalemia 10/18/2013 Hypothyroidism Ischemic cardiomyopathy Left bundle branch block Non-ST elevated myocardial infarction (non-STEMI) ([facility]) 12/08/2013 Osteoarthritis Pneumonia Status post internal [...] - CELSO; Surgeon: Niraj Celis MD; Location: [facility] MAIN OR; Service: Accountable [facility]; Laterality: N/A; HIP SURGERY HYSTERECTOMY HYSTERECTOMY partial OTHER SURGICAL HISTORY CATARACT EXTRACTION OTHER SURGICAL HISTORY Left 12/09/2013 INTERNAL MAMMARY ARTERIAL HARVEST - Procedure: INTERNAL MAMMARY ARTERIAL HARVEST; Surgeon : Niraj Celis MD; Location: [facility] MAIN OR; Service: Cardiac; Laterality: Left; OTHER SURGICAL HISTORY Right 12/09/2013 ENDOVASCULAR VEIN HARVEST - Procedure: VEIN - ENDOVASCULAR VEIN HARVEST; Surgeon: Niraj waters MD; Location: [facility] MAIN OR; Service: Cardiac; Laterality: Right; OTHER SURGICAL HISTORY UNLISTED PROCEDURE ARTHROSCOPY - Screws in Right hip OTHER SURGICAL HISTORY HARDWARE PRESENT - screws in right hip PACEMAKER INSERTION 2013 STERNOTOMY 12/09/2013 Procedure: STERNOTOMY; Surgeon: Niraj Celis MD; Location: [facility] MAIN OR; Service: [facility];; TRANSTHORACIC ECHOCARDIOGRAM 09/2018 EF 20-25%, mild MR, mild TR, mild NC, RVSP 31 Family History Problem Relation Age of Onset Other (see comment) Father ruptured crebral aneurysm/crebral hemorrhage Sudden Father Hypertension Father Other (see comment) Paternal Grandmother ruptured cerebral aneurysms/cerebral hemorrhage Diabetes, NIDDM Paternal Grandmother Heart disease Paternal Grandmother Hypertension Paternal Grandmother Sudden Paternal Grandmother Tuberculosis Mother Other (see comment) Sister ruptured crebral aneurysms Other (see comment) Sister crebral hemorrhage Hypertension Sister Sudden Sister Social History Socioeconomic History Marital status: Spouse name: Not on file Number of children: 8 Years of education: Not on file Highest education level: Not on file Tobacco Use Smoking status: Former Smoker Packs/day: 1.00 Years: 30.00 Pack years: 30.00 Start date: 1954 Last attempt to quit: 02/17/1986 Years since quittin.8 Smokeless tobacco: Never Used Substance and Sexual Activity Alcohol use: Yes Frequency: Monthly or less Drinks per session: 1 or 2 Binge frequency: Never Comment: Rarely Drug use: Never Comment: Drug use: No Social History Narrative She lives in [place]. to Alfredo 1949. 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 Review of Systems: Ten system review negative unless noted in HPI. Current Outpatient Medications Medication Sig Dispense Refill acetaminophen (TYLENOL) 500 [...] Take 200 mg by mouth as needed levothyroxine (SYNTHROID) 88 mcg tablet Take 88 mcg by mouth Daily. lidocaine 4 % patch Place 1-3 patches onto the skin. losartan (COZAAR) 25 mg tablet Take 0.5 tablets by mouth daily. metOLazone 2.5 mg tablet Take 0.5 tablet by mouth every third day as [...] by mouth nightly. No current facility-administered medications for this visit. Allergies Allergen Reactions Hydromorphone Other (See Comments) Documented in chart that patient went into respiratory distress after receiving 0.5mg of dilaudid. Adhesive & Tape Rash Codeine Itching Furosemide Other (See Comments) All joints ache and sore, tired All joints ache and sore, tired Joint pain Latex Rash Objective: Vitals: 12/20/18 1331 BP: 128/68 Pulse: 79 Weight: 64 kg (141 lb 1.6 oz) Height: 1.651 m (5' 5") Body mass index is 23.48 kg/m. Exam: General: Patient is alert, pleasant, cooperative, and in no acute distress. Eyes: Sclerae anicteric. Ears: External ears normal. Nose: External nose normal. Oral exam: No oral lesions noted. Neck: Trachea midline. No thyromegaly. No elevation of jugular venous pressure. No vo tid bruits. Lungs: Clear to auscultation bilaterally. No wheezes, rales, or rhonchi. Heart: Regular rate and rhythm. Normal S1/S2. No murmurs, gallops, rubs. Abdomen: Bowel sounds present. Soft, nondistended. No masses or hepatosplenomegaly noted . No significant tenderness noted. Extremities: No clubbing or cyanosis noted. No lower extremity edema noted. Pulses: Intact bilateral radial and pedal pulses. Musculoskeletal: No obvious arthritic change noted of the knees. Skin: Warm and dry. Psychiatric: Patient is alert and oriented to person, place, and day. Mood and affect nor mal. Neurological: Patient is intact to light touch in the upper and lower extremities bilateral ly. Left pocket: Incision is well-healed with no erythema, induration, discharge, or pre-erosio n Review of studies: ECG: Atrial sensed ventricular paced at 77 bpm with suggestion of biventricular pacing, com pared to the EKG of October 2018 biventricular pacing morphology has changed but this could ref lect lead positioning Device Interrogation: Her Medtronic biventricular pacemaker/ICD was interrogated and found to have stable sensing, pacing, and impedance values. The capture threshold on the coronary sinus has improved since last interrogation and outputs were adjusted accordingly to maximi ze battery longevity. She paces 75% of the time in the atrium with 94% ventricular pacing. Occasional ventricular premature beats were noted during interrogation. No mode switch or ventricular episodes were noted since last interrogation. Impression/Plan: Tamiko was seen today for follow-up. Diagnoses and all orders for this visit: Ischemic cardiomyopathy - ECG 12 lead Status post internal cardiac defibrillator procedure Ventricular premature beats Abnormal chest x-ray 1) Ischemic cardiomyopathy - Ms. Ireland has a history of coronary artery disease and is stat us post CABG 5 in November 2013. Subsequent imaging has noted a large lateral defect with a n ejection fraction of 18% on nuclear imaging in 2014. An echocardiogram performed more rec ently demonstrated an ejection fraction of 20-25%. A biventricular pacemaker/ICD was impljad villegas in the setting of a left bundle-branch block with severe cardiomyopathy. She continues to note shortness of breath with activity and cough at times which has persisted for several months. Despite PVC suppression with amiodarone and alteration in coronary sinus pacing co nfigurations she has not noted any significant change in her shortness of breath. It is pos sible her shortness of breath may not be entirely related to her cardiac function as an abno rmal chest x-ray was noted previously. She was seen for evaluation of her biventricular pac ing system. The coronary sinus lead appeared to be in a more apical position on chest x-ray and pacing is currently being performed from the more proximal electrode at LV4. She has a history of a large lateral infarct on previous imaging with diaphragm stimulation from mult iple coronary sinus configurations. Given limited options for programming she is not likely to gain any significant improvement with any further optimization. She will continue regul ar follow-up with cardiology and pulmonary. 2) S/p biventricular pacemaker/ICD - She had a biventricular pacemaker/ICD implanted in 201 4 in the setting of severe cardiomyopathy with left bundle-branch block. As discussed above are limited programming options for her coronary sinus lead in its current location. A lar ge lateral scar is suggested on previous imaging. She has not noted any improvements in her cough and shortness of breath despite changes in coronary sinus configuration and timing or with PVC suppression. Her device was interrogated today and found to be functioning normal ly in all respects. We will continue with remote monitoring and regular follow-up in the of [facility]. 3) Ventricular premature beats - She has a history of ventricular premature beats seen on E KGs in the past. On a more recent EKG the morphology was left bundle-branch block/left infe rior axis with a V1 2 transition. She was placed on amiodarone in the past but this was s topped due to an abnormal chest x-ray suggesting possible pulmonary fibrosis. The medicatio n was then restarted more recently and PVC suppression has been noted based on device diagno stics. No ventricular ectopy was noted during her initial evaluation. She continued to not e shortness of breath despite decrease in the PVC frequency. The ventricular premature beat s are less likely to be the cause of her ongoing symptoms. Given the abnormal chest x-ray a nd pulmonary findings she will continue off of amiodarone. She continues on carvedilol 3.12 5 mg twice a day. 4) Abnormal CXR - She had a chest x-ray performed in July 2018 after starting amiodarone a nd possible pulmonary fibrosis was suggested. Amiodarone was stopped as noted above. She h as since followed up with pulmonary. This encounter was dictated with voice recognition software and may contain inadvertent rec ognition errors. documented in this encounter Plan of Treatment +--------+ + + + + | Date | Type | Specialty | Care Team | Description | +--------+ + + + + | 03/09/ | Office | Cardiology | [place], | | | 2018 | Visit | | MD Lucila WIGGINS | | | | | | [facility] [place] | | | | | | [address] | | | | | | | [...] [place] | | | | | | [address] | | | | | | | [...] + + documented in this encounter Results ECG 12 lead (12/20/2018 1:32 PM [...] INTERPRETAT | Please refer to | | WAMT MUSE | | | ION TEXT | Providers office visit | | | | | | note for Providers | | | | | | Interpretation.Confirmed | | | | | | by [facility] [place] Read Only, | | | | | | [facility] Rosalie ([id number]), | | | | | | dictionary editor LAEH ADAMS | | | | | | [...] | | disease | + + | Status post internal cardiac defibrillator procedure Automatic implantable cardiac | | defibrillator in situ | + + | Ventricular premature beats Other premature beats | + + | Abnormal chest x-ray Other nonspecific abnormal finding of lung field | + + documented in this encounter
--- OUTSIDE RECORDS SUMMARY | ~2019-03-06 | XMS | Encounter Summary ---
Demographics + + + | Address | [address] | | | [place] [address] | + + + | Home Phone | | + + + | Preferred Language | Unknown | + + + | Marital Status | Single | + + + | Yazidism Affiliation | Unknown | + + + | Race | Unknown | + + + | Ethnic Group | Other Race | + + + Author + + + | Author | [facility] | + + + | Organization | [facility] | + + + [...] Team Providers + +------+ + | Care Loan And Credit Manager Name | Role | Phone | + +------+ + PCP | Unavailable | + +------+ + Encounter Details +--------+ + + + + | Date | Type | Department | Care Team | Description | +--------+ + + + + | 10/29/ | Document-Sc | Health Information | Unknown . | | | 2018 | anned | Services [id number] | | | | | | [facility] | | | | | | Mailcode: [id number] | | | | | | [facility] | | | | | | [place], [place] | | | | | | [address] | | | | | | [phone] | | | +--------+ + + + [...]
--- OUTSIDE RECORDS SUMMARY | ~2019-03-06 | XMS | Encounter Summary ---
Demographics + + + | Address | [address] | | | [place] [address] | + + + | Home Phone [...] | Author | [facility] | | | and [place] | + + + | Organization | [facility] | | | and [...] [place], [place] | | | | | [address] | | + + + + + | Rivka Palma | ECON | Unknown | | + + + + + | Geno Kendall | ECON | Unknown | | + + + + + Care Team Providers + +------+ + | Care Wild Life Photographer Name | Role | Phone | + [...] + + | 08/16/ | Telephone | [facility] | Brandon Terry | Other (Medication | | 2015 | | PULMONARY [address] | [place] [address] [address] | change) | | | | [place], | [place], [place] | | | | | [place] [address] | [address] | | | | | [phone] | | | +--------+ + + + [...] [place] | | | | | | [address] | | | | | | | [...] [place] | | | | | | [address] | | | | | | | [...]
--- OUTSIDE RECORDS SUMMARY | ~2019-03-06 | XMS | Encounter Summary ---
Demographics + + + | Address | [address] | | | [place] [address] | + + + | Home Phone | | + + + | Preferred Language | Unknown | + + + | Marital Status | | + + + | Sikh Affiliation | 1041 | + + + | Race | Unknown | + + + | Ethnic Group | Unknown | + + + Author + + + | Author | [facility] | | | and [place] | + + + | Organization | [facility] | | | [...] [place] | | | | | [address] | | + + + + + | Rivka Palma | ECON | Unknown | | + + + + + | Geno Kendall | ECON | Unknown | | + + + + + Care Team Providers + +------+ + | Care Boilerhouse Mechanic Name | Role | Phone | + +------+ + | Carmen Schultz MD | PCP | | + +------+ + Reason for Visit +--------+ + | Reason | Comments | +--------+ + | Other | In Home- Neb order | +--------+ + Encounter Details +--------+ + + + + | Date | Type | Department | Care Team | Description | +--------+ + + + + | 12/09/ | Documentati | [facility] | Antwan Solorzano, | Other (In Home- Neb | | 2019 | on | PULMONOLOGY [address] | Secretary Administrative Assistant | order) | | | | [place] [place] | | | | | | [place] | | | | | | [address] | | | | | | [phone] | | | +--------+ + + + [...] documented as of this encounter Progress Notes Antwan Solorzano Secretary Administrative Assistant - 12/09/2018 1:47 PM PDTFaxed a nebulizer machine to In Home. Received a confirmation for [phone]. documented in this encounter Plan of Treatment +--------+ + + + + | Date | Type | Specialty | Care Team | Description | +--------+ + + + + | 03/09/ | Office | Cardiology | [place], | | | 2018 | Visit | | MD Lucila WIGGINS | | | | | | [place] | | | | | | [address] | | | | | | | [...] [place] | | | | | | [address] | | | | | | | | +--------+ + + + + documented as of this encounter Visit Diagnoses Not on filedocumented in this encounter"
--- OUTSIDE RECORDS SUMMARY | ~2019-03-06 | XMS | Encounter Summary ---
Demographics + + + | Address | [address] | | | [place] [address] | + + + | Home Phone | | + + + | Preferred Language | Unknown | + + + | Marital Status | | + + + | Alevism Affiliation | 1041 | + + + [...] [place], [place] | | | | | [address] | | + + + + + | Rivka Palma | ECON | Unknown | | + + + + + | Geno Kendall | ECON | Unknown | | + + + + + Care Team Providers + +------+ + | Care Screw Machine Hand Name | Role | Phone | + +------+ + | Lorenzo Valdes MD | PCP | | + +------+ + Encounter Details +--------+ + + + + | Date | Type | Department | Care Team | Description | +--------+ + + + + | 12/01/ | Orders Only | [facility] | Thomas Bynum | | | 2013 | | [place] | MD [address] | | | | | ECHO [address] | [place] | | | | | [facility] | [place] [address] | | | | | [address] | [phone] | | | | | [phone] | | | +--------+ + + + [...] [place] | | | | | | [address] | | | | | | | [...] [place] | | | | | | [address] | | | | | | | [...] | mitral valve is normal. Mitral Valve: Dech-pf-yedagxuv mitral | | | regurgitation is present. [...] LA/Ao: | | | 1.17 AR Dec Lyon: 2.27 m/s2 AR Dec Time: 1601.25 ms [...] TR Vmax: 2.54 m/s | | | Marketing Automation Manager: DBS Authenticated by: Thomas Bynum DO Report | | | Date/Time: [id number]:23 | | + + + + + [...] mitral valve is normal.Mitral | | Valve: Yhsm-ay-ttvipquj mitral regurgitation is present.Mitral Valve: Mild mitral [...] (A-L): 27.91 | | ml/m2LAAs A2C: 15.29 [id number] A-L A2C: 46.48 mlLALs A2C: 4.26 cmLAAs A4C: 14.08 | | on0GVPEE A-L A4C: 45.26 mlLALs A4C: 3.72 cmRAAs: 9.19 [id number] A-L: 21.08 | | mlRAESV MOD: 20.72 mlRALs: 3.40 cmAo Diam: 3.25 cmLA Diam: 3.82 cmLA/Ao: | | 1.17AR Dec Lyon: 2.27 m/s2AR Dec Time: 1601.25 msAR maxP.14 mmHgAR PHT: | | 464.36 msAR Vmax: 3.64 m/Evelin maxP.22 mmHgAV meanP.41 mmHgAV Vmax: 1.43 | | m/Evelin Vmean: 1.00 m/Evelin VTI: 26.12 cmAVA Vmax: 1.85 cm2AVA (VTI): 1.99 [id number] | | maxP.78 mmHgLVOT meanP.15 mmHgLVSI Dopp: [...] maxP.85 mmHgTR Vmax: 2.54 m/s | | Marketing Automation Manager: DBSAuthenticated by: Thomas Hernandez Date/Time: -- | | [id number]:04:23 IMPRESSION: 1. Cardiac chamber dimensions NML. LV [...] cm | |LA/Ao: 1.17 | |AR Dec Lyon: 2.27 m/s2 | |AR Dec Time: 1601.25 [...] |TR Vmax: 2.54 m/s | | | |Marketing Automation Manager: DBS | |Authenticated by: Thomas Bynum DO | |Report Date/Time: -- 16_[id number]_[id number]:04:23 | | | |IMPRESSION: | |1. Cardiac [...]
--- OUTSIDE RECORDS SUMMARY | ~2019-03-06 | XMS | Encounter Summary ---
Demographics + + + | Address | [address] | | | [place] [address] | + + + | Home Phone | | + + + | Preferred Language | Unknown | + + + | Marital Status | | + + + | Buddhist Affiliation | 1041 | + + + [...] [place], [place] | | | | | [address] | | + + + + + | Rivka Palma | ECON | Unknown | | + + + + + | Geno Kendall | ECON | Unknown | | + + + + + Care Team Providers + +------+ + | Care Medical Laboratory Specialist Name | Role | Phone | + +------+ + PCP | Unavailable | + +------+ + Encounter Details +--------+ + + + + | Date | Type | Department | Care Team | Description | +--------+ + + + + | 02/11/ | [facility] | [facility] | Christina Mead | | | 2009 | Encounter | MED [facility] INTRA OP | MD [address] | | | | | [address] | [place], | | | | | [place] | [place] [address] | | | | | [address] | [phone] | | | | | [phone] | | | +--------+ + + + [...] [place] | | | | | | [address] | | | | | | | [...] [place] | | | | | | [address] | | | | | | | | +--------+ + + + + documented as of this encounter Visit Diagnoses Not on filedocumented in this encounter"
--- OUTSIDE RECORDS SUMMARY | ~2019-03-06 | XMS | Encounter Summary ---
Demographics + + + | Address | [address] | | | [place] [address] | + + + | Home Phone [...] [place], [place] | | | | | [address] | | + + + + + | Rivka Palma | ECON | Unknown | | + + + + + | Geno Kendall | ECON | Unknown | | + + + + + Care Team Providers + +------+ + | Care Router Tender Name | Role | Phone | + +------+ + | Lorenzo Valdes MD | PCP | | + +------+ + Encounter Details +--------+ + + + + | Date | Type | Department | Care Team | Description | +--------+ + + + + | 12/23/ | Orders Only | [facility] | Conversion | | | 2013 | | NEPHROLOGY [place] | Transaction, | | | | | [address] [facility] | Provider Unknown | | | | | [place] | [phone] | | | | | [address] | | | | | | [phone] | | | +--------+ + + + [...] [place] | | | | | | [address] | | | | | | | [...] [place] | | | | | | [address] | | | | | | | [...]
--- OUTSIDE RECORDS SUMMARY | ~2019-03-06 | XMS | Encounter Summary ---
Demographics + + + | Address | [address] | | | [place] [address] | + + + | Home Phone [...] [place] | | | | | [address] | | + + + + + | Rivka Palma | ECON | Unknown | | + + + + + | Geno Kendall | ECON | Unknown | | + + + + + Care Team Providers + +------+ + | Care Placement Interviewer Name | Role | Phone | + [...] + + | 12/09/ | Documentati | [facility] | Antwan Solorzano, | Other (In Home- [place] | | 2019 | on | PULMONOLOGY [address] | Range Conservationist | order) | | | | [address] | | | | | | [place] | | | | | | [address] | | | | | | [phone] | | | +--------+ + + + [...] of this encounter Progress Notes Antwan Solorzano Range Conservationist - 12/09/2018 1:47 PM PDTFaxed a nebulizer machine to [facility]. Received a confirmation for [phone]. documented in this encounter Plan of Treatment +--------+ + + + + | Date | Type | Specialty | Care Team | Description | +--------+ + + + + | 03/09/ | Office | Cardiology | [place], | | | 2018 | Visit | | MD Lucila WIGGINS | | | | | | [place] | | | | | | [address] | | | | | | | [...] [place] | | | | | | [address] | | | | | | | | +--------+ + + + + documented as of this encounter Visit Diagnoses Not on filedocumented in this encounter"
--- OUTSIDE RECORDS SUMMARY | ~2019-03-06 | XMS | Encounter Summary ---
Demographics + + + | Address | [address] | | | [place] [address] | + + + | Home Phone [...] [place], [place] | | | | | [address] | | + + + + + | Rivak Palma | ECON | Unknown | | + + + + + | Geno Kendall | ECON | Unknown | | + + + + + Care Team Providers + +------+ + | Care Assistant Housekeeping Manager Name | Role | Phone | + +------+ + | Lorenzo Valdes MD | PCP | | + +------+ + Encounter Details +--------+ + + + + | Date | Type | Department | Care Team | Description | +--------+ + + + + | 07/14/ | Hospital | [facility] | Conversion | Shortness of breath; | | 2019 | Encounter | [facility] | Transaction, | Cough; Exposure to | | | | [address] | Provider Unknown | pneumonia | | | | [address] [place], [place] | [phone] | | | | | [address] | | | | | | [phone] | Barbara Doll, ANP | | | | | | [address] | | | | | | [place], [place] | | | | | | [address] | | | | | | | [...] | | | | | | ([facility]), Bronchitis, | | | | | | | obstructive, chronic | | | | | | | ([facility]) | | | | | | + [...] | | | | | | [facility] [place] | | | | | | [address] | | | | | | | [...] [place] | | | | | | [address] | | | | | | | [...]
--- OUTSIDE RECORDS SUMMARY | ~2019-03-06 | XMS | Encounter Summary ---
Demographics + + + | Address | [address] | | | [place] [address] | + + + | Home Phone [...] [place], [place] | | | | | [address] | | + + + + + | Rivka Palma | ECON | Unknown | | + + + + + | Geno Kendall | ECON | Unknown | | + + + + + Care Team Providers + +------+ + | Care Tele Marketing Executive Name | Role | Phone | + +------+ + | Lorenzo Valdes MD | PCP | | + +------+ + Encounter Details +--------+ + + + + | Date | Type | Department | Care Team | Description | +--------+ + + + + | 03/07/ | Hospital | [facility] | Conversion | Ischemic | | 2013 - | Encounter | [facility] | Transaction, | cardiomyopathy | | | | CLINICAL DECISION | Provider Unknown | | | 03/08/ | | [address] [facility] | [phone] | | | 2013 | | [place], [place] | | | | | | [address] | Cristina Aguilar MD | | | | | [phone] | PhD [address] [facility] | | | | | | [address] | | | | | | [place] [address] | | | | | | [phone] | | | | | | | [...] 03/08/14925 Date of Service: 03/08/14924 Status: Signed Forensic Computer Examiner: Mouna Kelsey RN (Registered Nurse) Pt discharged. [...] 03/08/1438 Date of Service: 03/08/14736 Status: Signed Forensic Computer Examiner: Cristina Aguilar MD (Physician) [facility] PATIENT NAME: Tamiko Ireland : 1930: AGE: 83 y.o. ADMISSION DATE: 03/07/2014 Hospital Day # 1 Principal Hospital Problem: <principal problem not specified> Code Status: Full Code PRIMARY CARE: CANDICE Aguilar MD E[facility]ROP[facility]Y HOSPITAL PROGRESS NOTE CURRENT ASSESSMENT AND PLAN: 83 y.o. year old female POD1 after MDT MANUFACTURING ENGINEERING DIRECTOR-D implant - CXR clear, wound clear, device [...] 03/08/14529 Date of Service: 03/08/14529 Status: Signed Forensic Computer Examiner: Vel Moreno RN (Registered Nurse) Code cart removed from outside of room onver yajaira Transaction, Provider Unknown - 03/08/2014 5:10 AM PST Nurse Progress Note by Vel Moreno RN at 03/08/14509 Author: Vel Moreno RN Service: (none) Author Type: Registered Nurse Filed: 03/08/1429 Date of Service: 03/08/14509 Status: Addendum Forensic Computer Examiner: Vel Moreno RN (Registered Nurse) Related Notes: [...] Note by Loretta Mast RN at 03/07/14 4982 Author: Loretta Mast RN Service: (none) Author Type: Registered Nurse Filed: 03/07/141 Date of Service: 03/07/141612 Status: Signed Forensic Computer Examiner: Loretta Mast RN (Registered Nurse) 7027 Pt complaining of SOB and difficulty breathing. [...] [place] | | | | | | [address] | | | | | | | [...] [place] | | | | | | [address] | | | | | | | [...] | | | | | [place] [address] | | | | + + + + + + | K | 3.8Comment: Testing | 3.5 - 4.9 | EXTERNAL | | | | performed at [facility], [address] | mmol/L | LAB | | | | [address], | | | | | | [place] [address] | | | | + + + + + + | Cl | 102Comment: Testing | 99 - 109 mmol/L | EXTERNAL | | | | performed at [facility], [address] | | LAB | | | | [address], | | | | | | [place] [address] | | | | + + + + + + | CO2 | 29Comment: Testing | 23 - 32 mmol/L | EXTERNAL | | | | performed at [facility], [address] | | LAB | | | | [address], | | | | | | [place] [address] | | | | + + + + + + | Anion Gap | 11Comment: Testing | 5 - 20 mmol/L | EXTERNAL | | | | performed at [facility], [address] | | LAB | | | | [address], | | | | | | [place] [address] | | | | + + + + + + | Glucose, | 99Comment: Testing | 65 - 99 mg/dL | EXTERNAL | | | Fasting | performed at [facility], [address] | | LAB | | | | [address], | | | | | | [place] [address] | | | | + + + + + + | BUN | 20Comment: Testing | 8 - 25 mg/dL | EXTERNAL | | | | performed at [facility], [address] | | LAB | | | | [address], | | | | | | [place] [address] | | | | + + + + + + | Creatinine | 1.11 (H)Comment: Testing | 0.50 - 1.00 | EXTERNAL | | | | performed at [facility], [address] | mg/dL | LAB | | | | [address], | | | | | | [place] [address] | | | | + + + + + + | BUN/Creatin | 18Comment: Testing | | EXTERNAL | | | ine Ratio | performed at [facility], [address] | | LAB | | | | [address], | | | | | | [place] [address] | | | | + + + + + + | Calcium | 9.0Comment: Testing | 8.5 - 10.2 | EXTERNAL | | | | performed at [facility], [address] | mg/dL | LAB | | | | [address] [facility], | | | | | | [place] [address] | | | | + + + [...] | | | | | [address] [facility], | | | | | | [place] [address] | | | | + + + [...] | | | Fingerstick | performed at [facility];[address] | | LAB | | | | [address];[place] | | | | | | [address] | | | | + + [...] Conversion - 11/26/2018 3:41 PM PDT TAMIKO [id number] yearsXR CHEST 1 | | VIEW03/07/2014 4:06 [...] | | | Fingerstick | performed at [facility];[address] | | LAB | | | | [address];[place], [place] | | | | | | [address] | | | | + + + [...] | | | a dual-chamber implantable cardioverter-defibrillator, 58574. 2. | | | Implantation of an left ventricular lead, 40288. ANESTHESIA | | | Anesthesiology service with general anesthesia throughout. 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 [place] [employer] | | | class II to III symptoms. Left bundle branch block. Conduction delay | | | with QRS CD 160 msec. The patient was referred for implantation of a | | | MANUFACTURING ENGINEERING DIRECTOR-D system. PROCEDURE IN DETAIL Informed consent for [...] the RV lead, a | | | 9.5-Citizen Of [place] sheath was deployed in the venous circulation. [...] orientation the lead tip confirmed in the INDIAN view, active | | | fixation was extended. With the stylet partially withdrawn, | | | satisfactory lead characteristics were confirmed again. The lead was | | | secured to the prepectoral fascia using 2 independent ties of Ti-Cron | | | sutures. For the LV lead, a 9.5-Citizen Of [place] sheath was deployed in the | | | venous circulation and a evolso extended hook outer guide sheath | | [...] performed in | | | both the INDIAN and RODRIGUEZ fluoroscopic views, demonstrating a large [...] in the LV lead in both the INDIAN view | | | propping the lead against the lateral wall of the right atrium and | | | the R[place]IG[place]Z view advancing the lead to the tricuspid valve annulus. The | | | lead was then secured to the pectoral fascia using 2 independent ties | | | of Ti-Cron sutures. For the RA lead, 7-Citizen Of [place] sheath was deployed | | | in [...] | | Medtronic 5076, 45 cm, serial #[id number], 2.5 mV P-waves, impedance | | | [...] | pain free SST settings. ECG guided MANUFACTURING ENGINEERING DIRECTOR optimization was then | | | performed exploring LV offset at 0, -20, -40 and -50 msec. The QRS | | | was stable at 155 msec throughout. There was mild negativity in lead | | | I with an RS pattern in lead V1, V3, accentuated with additional LV | | | offset. Given the short P-R interval, Adaptive MANUFACTURING ENGINEERING DIRECTOR was programmed. A | | | manual LV offset of -40 msec should be considered if a suboptimal | | | clinical response is obtained. IMPRESSION Successful implantation | | | of a MANUFACTURING ENGINEERING DIRECTOR-D system, no defibrillation threshold testing, ECG guided | | | LV offset optimized to -40, Adaptive MANUFACTURING ENGINEERING DIRECTOR programmed initially. | | | PLAN The [...] of a dual-chamber implantable cardioverter-defibrillator, | | [address]. | | 2. Implantation of an left ventricular lead, 44348. | | | | ANESTHESIA | | Anesthesiology service with general anesthesia throughout. 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 [place] Heart Association class II to III symptoms. Left bundle | | branch block. Conduction delay with QRS CD 160 msec. The patient was | | referred for implantation of a MANUFACTURING ENGINEERING DIRECTOR-D system. | | | | PROCEDURE IN [...] | | For the RV lead, a 9.5-Citizen Of [place] sheath was deployed in the venous | [...] orientation the lead tip confirmed in the INDIAN view, active fixation was | | extended. With the stylet partially withdrawn, satisfactory lead | | characteristics were confirmed again. The lead was secured to the | | prepectoral fascia using 2 independent ties of Ti-Cron sutures. | | | | For the LV lead, a 9.5-Citizen Of [place] sheath was deployed in the venous | [...] | venography was performed in both the INDIAN and RODRIGUEZ fluoroscopic views, | | demonstrating [...] LV lead in both | | the INDIAN view propping the lead against the lateral wall of the right | | atrium and the RODRIGUEZ view advancing the lead to the tricuspid valve annulus. | | The lead was then secured to the pectoral fascia using 2 independent ties | | of Ti-Cron sutures. | | | | For the RA lead, 7-Citizen Of [place] sheath was deployed in the venous circulation [...] RA lead: Medtronic 5076, 45 cm, serial #[id number], 2.5 mV P-waves, | | impedance 513 [...] settings. | | | | ECG guided MANUFACTURING ENGINEERING DIRECTOR optimization was then performed exploring LV offset at 0, | | -20, -40 and -50 msec. The QRS was stable at 155 msec throughout. There | | was mild negativity in lead I with an RS pattern in lead V1, V3, | | accentuated with additional LV offset. Given the short P-R interval, | | Adaptive MANUFACTURING ENGINEERING DIRECTOR was programmed. A manual LV offset of -40 msec should be | | considered if a suboptimal clinical response is obtained. | | | | IMPRESSION | | Successful implantation of a MANUFACTURING ENGINEERING DIRECTOR-D system, no defibrillation threshold | | testing, ECG guided LV offset optimized to -40, Adaptive MANUFACTURING ENGINEERING DIRECTOR programmed | | initially. | | | [...] | | | | | performed at [facility] | | | | | | [facility];[place], [place] | | | | | | [address] | | | | + + + [...] EXTERNAL | | | | performed at [facility];[address] | | LAB | | | | [address];[place] | | | | | | [address] | | | | + + + + + + | RED CELL | 4.55Comment: Testing | 3.70 - 5.10 | EXTERNAL | | | COUNT | performed at [facility];[address] | M/uL | LAB | | | | [address];[place] | | | | | | [address] | | | | + + + + + + | Hgb | 13.5Comment: Testing | 11.3 - 15.5 | EXTERNAL | | | | performed at [facility];[address] | g/dL | LAB | | | | [address];[place] | | | | | | [address] | | | | + + + + + + | Hematocrit, | 40.9Comment: Testing | 34.0 - 46.0 % | EXTERNAL | | | POC | performed at [facility];[address] | | LAB | | | | [address];[place] | | | | | | [address] | | | | + + + + + + | MCV | 90.0Comment: Testing | 80.0 - 100.0 fl | EXTERNAL | | | | performed at [facility];[address] | | LAB | | | | [address];[place] | | | | | | [address] | | | | + + + + + + | MCH | 29.7Comment: Testing | 27.0 - 34.0 pg | EXTERNAL | | | | performed at [facility];[address] | | LAB | | | | [address];[place] | | | | | | [address] | | | | + + + + + + | MCHC | 33.0Comment: Testing | 32.0 - 35.5 | EXTERNAL | | | | performed at [facility];[address] | g/dL | LAB | | | | [address];[place] | | | | | | [address] | | | | + + + + + + | RDW-CV | 47.7Comment: Testing | 37 - 53 fl | EXTERNAL | | | | performed at [facility];[address] | | LAB | | | | [address];[place] | | | | | | [address] | | | | + + + + + + | Platelet | 230Comment: Testing | 150 - 400 K/uL | EXTERNAL | | | Count | performed at [facility];[address] | | LAB | | | Plasma | [address];[place] | | | | | | [address] | | | | + + + + + + | MPV | 7.8Comment: Testing | fl | EXTERNAL | | | | performed at [facility];[address] | | LAB | | | | [address];[place] | | | | | | [address] | | | | + + + + + + | Differentia | AUTOMATEDComment: | | EXTERNAL | | | l Type | Testing performed at | | LAB | | | | [facility];[address];[place] [address] | | | | + + + + + + | % Segmented | 56.2Comment: Testing | % | EXTERNAL | | | | performed at [facility];[address] | | LAB | | | Neutrophils | [address];[place] | | | | | | [address] | | | | + + + + + + | % | 28.3Comment: Testing | % | EXTERNAL | | | Lymphocytes | performed at [facility];[address] | | LAB | | | | [address];[place] | | | | | | [address] | | | | + + + + + + | % Monocytes | 9.7Comment: Testing | % | EXTERNAL | | | | performed at [facility];[address] | | LAB | | | | [address];[place] | | | | | | [address] | | | | + + + + + + | % | 4.6Comment: Testing | % | EXTERNAL | | | Eosinophils | performed at [facility];[address] | | LAB | | | | [address];[place] | | | | | | [address] | | | | + + + + + + | % Basophils | 1.2Comment: Testing | % | EXTERNAL | | | | performed at [facility];[address] | | LAB | | | | [address];[place] | | | | | | [address] | | | | + + + + + + | Absolute | 6.1Comment: Testing | 1.9 - 7.4 K/uL | EXTERNAL | | | Segmented | performed at [facility];[address] | | LAB | | | Neutrophils | [address];[place] | | | | | | [address] | | | | + + + + + + | Absolute | 3.1Comment: Testing | 1.0 - 3.9 K/uL | EXTERNAL | | | Lymphocytes | performed at [facility];[address] | | LAB | | | | [address];[place] | | | | | | [address] | | | | + + + + + + | Absolute | 1.0 (H)Comment: Testing | 0 - 0.8 K/uL | EXTERNAL | | | Monocytes | performed at [facility];[address] | | LAB | | | | [address];[place] | | | | | | [address] | | | | + + + + + + | Absolute | 0.5Comment: Testing | 0 - 0.5 K/uL | EXTERNAL | | | Eosinophils | performed at [facility];[address] | | LAB | | | | [address];[place] | | | | | | [address] | | | | + + + + + + | Absolute | 0.1Comment: Testing | 0 - 0.1 K/uL | EXTERNAL | | | Basophils | performed at [facility];[address] | | LAB | | | | [address];[place], [place] | | | | | | [address] | | | | + + + [...] EXTERNAL | | | | performed at [facility];[address] | mmol/L | LAB | | | | [address];[place] | | | | | | [address] | | | | + + + + + + | K | 3.8Comment: Testing | 3.5 - 4.9 | EXTERNAL | | | | performed at [facility];[address] | mmol/L | LAB | | | | [address];[place] | | | | | | [address] | | | | + + + + + + | Cl | 104Comment: Testing | 99 - 109 mmol/L | EXTERNAL | | | | performed at [facility];[address] | | LAB | | | | [address];[place] | | | | | | [address] | | | | + + + + + + | CO2 | 29Comment: Testing | 23 - 32 mmol/L | EXTERNAL | | | | performed at [facility];[address] | | LAB | | | | [address];[place] | | | | | | [address] | | | | + + + + + + | Anion Gap | 12Comment: Testing | 5 - 20 mmol/L | EXTERNAL | | | | performed at [facility];[address] | | LAB | | | | [address];[place] | | | | | | [address] | | | | + + + + + + | Glucose, | 123 (H)Comment: Testing | 65 - 99 mg/dL | EXTERNAL | | | Fasting | performed at [facility];[address] | | LAB | | | | [address];[place] | | | | | | [address] | | | | + + + + + + | BUN | 27 (H)Comment: Testing | 8 - 25 mg/dL | EXTERNAL | | | | performed at [facility];[address] | | LAB | | | | [address];[place] | | | | | | [address] | | | | + + + + + + | Creatinine | 1.31 (H)Comment: Testing | 0.50 - 1.00 | EXTERNAL | | | | performed at [facility];[address] | mg/dL | LAB | | | | [address];[place] | | | | | | [address] | | | | + + + + + + | BUN/Creatin | 21Comment: Testing | | EXTERNAL | | | ine Ratio | performed at [facility];[address] | | LAB | | | | [address];[place] | | | | | | [address] | | | | + + + + + + | Calcium | 9.4Comment: Testing | 8.5 - 10.2 | EXTERNAL | | | | performed at [facility];[address] | mg/dL | LAB | | | | [address];[place], [place] | | | | | | [address] | | | | + + + [...] | | | | | | at [facility];[address];[place] [address] | | | | + + + [...] EXTERNAL LAB | | Testing performed at [facility];[address] [place] [address];[place] [address] MRSA PCR | | | NEGATIVE Testing performed at | | | [facility];[address] [place] [address];[place] [address] | | + + + + +---------+ [...]
--- OUTSIDE RECORDS SUMMARY | ~2019-03-06 | XMS | Encounter Summary ---
Demographics + + + | Address | [address] | | | [place] [address] | + + + | Home Phone | | + + + | Preferred Language | Unknown | + + + | Marital Status | | + + + | Voodoo Affiliation | [id number] | + + + | Race | Unknown | + + + | Ethnic Group | Unknown | + + + Author + + + | Author | [facility] | | | and [place] | + + + | Organization | [facility] | | [...] [place], [place] | | | | | [address] | | + + + + + | Rivka Palma | ECON | Unknown | | + + + + + | Geno Kendall | ECON | Unknown | | + + + + + Care Team Providers + +------+ + | Care Beef Trimmer Name | Role | Phone | + +------+ + | Lorenzo Valdes MD | PCP | | + +------+ + Encounter Details +--------+ + + + + | Date | Type | Department | Care Team | Description | +--------+ + + + + | 07/11/ | Orders Only | [facility] | Conversion | | | 2014 | | [facility]ARDIOLOGY [place] | Transaction, | | | | | [address] | Provider Unknown | | | | | [place], [place] | [phone] | | | | | [address] | | | | | | [phone] | | | +--------+ + + + [...] [place] | | | | | | [address] | | | | | | | [...] [place] | | | | | | [address] | | | | | | | [...]
--- OUTSIDE RECORDS SUMMARY | ~2019-03-06 | XMS | Encounter Summary ---
Demographics + + + | Address | [address] | | | [place] [address] | + + + | Home Phone [...] [place], [place] | | | | | [address] | | + + + + + | Rivka Palma | ECON | Unknown | | + + + + + | Geno Kendall | ECON | Unknown | | + + + + + Care Team Providers + +------+ + | Care Applied Anthropologist Name | Role | Phone | + [...] + + | 03/16/ | Office | [facility] | Brandon Terry | Bronchiectasis (HCC) | | 2012 | Visit | PULMONARY [address] | [place] [address] [address] | (Primary Dx); | | | | [place], | [place], [place] | [place], | | | | [place] [address] | [address] | OBSTRUCTIVE CHRONIC; | | | | [phone] | | Asthma, extrinsic; | | | [...] flu shot. I sent a prescription to [facility] for an Atrovent inhaler. You can try [...] the original. Brandon Terry MD [facility] [address] [place] [address] 03/16/2013 Tamiko Ireland 1930 History Tamiko Ireland is a 82 y.o. female followed for symptoms of chronic cough and mucus producti on due to bronchiectasis. She was originally seen in May 2008, sent by Dr. Tono Valdes in [place], [place]. Mrs. Ireland recalled problems dating back [...] he chest that had been performed at [facility] on July 29, 2005. That CT [...] 2. [place], OBSTRUCTIVE CHRONIC She has a [id number] smoking history. Fortunately, pulmonary function test performed [...] travel during wintertime. Brandon Terry Cc: Dr. Snatiago Valdes Portions of this documentation were transcribed using voice recognition software. Every eff ort has been made to ensure accuracy; however, unintended grammatical and/or spelling errors may be present due to inadvertent computerized supervisor brooder farm errors. If there are any ques tions regarding the supervisor brooder farm, please contact our office. documented in th [...] [place] | | | | | | [address] | | | | | | | [...]
--- OUTSIDE RECORDS SUMMARY | ~2019-03-06 | XMS | Encounter Summary ---
Demographics + + + | Address | [address] | | | [place] [address] | + + + | Home Phone | | + + + | Preferred Language | Unknown | + + + | Marital Status | | + + + | Orthodox Affiliation | 1041 | + + + | Race | Unknown | + + + | Ethnic Group | Unknown | + + + Author + + + | Author | [facility] | | | and [place] | + + + | Organization | [facility] | | [...] [place], [place] | | | | | [address] | | + + + + + | Rivka Palma | ECON | Unknown | | + + + + + | Geno Kendall | ECON | Unknown | | + + + + + Care Team Providers + +------+ + | Care Grip Assembler Name | Role | Phone | + +------+ + | Lorenzo Valdes MD | PCP | | + +------+ + Encounter Details +--------+ + + + + | Date | Type | Department | Care Team | Description | +--------+ + + + + | 03/30/ | Orders Only | [facility] | Conversion | | | 2013 | | NEPHROLOGY [place] | Transaction, | | | | | [address] [facility] | Provider Unknown | | | | | [place] | [phone] | | | | | [address] | | | | | | [phone] | | | +--------+ + + + [...] [place] | | | | | | [address] | | | | | | | [...] [place] | | | | | | [address] | | | | | | | | +--------+ + + + + documented as of this encounter Procedures + +--------+ + + + | Procedure Name | Priori | Date/Time | Associated Diagnosis | Comments | | | ty | | | | + +--------+ + + + | MAGNESIUM | Routin | 03/30/2014 | | Results for this | | | e | 12:00 AM | | procedure are in the | | | | PST | | results section. | + +--------+ + + + | RENAL FUNCTION PANEL | Routin | 03/30/2014 | | Results for this | | | e | 12:00 AM | | procedure are in the | | | | PST | | results section. | + +--------+ + + + documented in this encounter Results Magnesium (03/30/2014 12:00 AM PST) + +-------+ + + [...] + +---------+ + + Renal Function Panel (03/30/2014 12:00 AM PST) + + + + + + | Component | Value | Ref Range | Performed | Pathologist | | | | | At | Signature | + + + + + + | Glucose, | 95 | mg/dL | EXTERNAL | | | Fasting | | | LAB | | + + + + + + | BUN | 28 (A) | 6 - 23 mg/dL | EXTERNAL | | | | | | LAB | | + + + + + + | Creatinine | 1.20 (A) | 0.70 - 1.11 | EXTERNAL | | | | | mg/dL | LAB | | + + + + + + | PHOSPHORUS | 4.1 | mg/dL | EXTERNAL | | | | | | LAB | | + + + + + + | Albumin | 4.2 | | EXTERNAL | | | | | | LAB | | + + + + + + | Na | 141 | mmol/L | EXTERNAL | | | | | | LAB | | + + + + + + | K | 4.0 | mmol/L | EXTERNAL | | | | | | LAB | | + + + + + + | Cl | 100 | mmol/L | EXTERNAL | | | | | | LAB | | + + + + + + | CO2 | 28 | mmol/L | EXTERNAL | | | | | | LAB | | + + + + + + | Anion Gap | 17.0 | mmol/L | EXTERNAL | | | | | | LAB | | + + + + + + | eGFR if not | 43 (A) | 59 - 60 | EXTERNAL | | | | | | LAB | | | [facility]ER[facility]ANI | | | | | + + + + + + | Phosphorus, | 4.1 | | EXTERNAL | | | Inorganic | | | LAB | | + + + + + + | BUN/Creatin | 23.3 | | EXTERNAL | | | ine Ratio | | | LAB | | + + + + + + | Calcium | 9.6 | mg/dL | EXTERNAL | | | | | | LAB | | + + + + + + | Estimated | | mg/dL | EXTERNAL | | [...]
--- OUTSIDE RECORDS SUMMARY | ~2019-03-06 | XMS | Encounter Summary ---
Demographics + + + | Address | [address] | | | [place] [address] | + + + | Home Phone [...] [place], [place] | | | | | [address] | | + + + + + | Rivka Palma | ECON | Unknown | | + + + + + | Geno Kendall | ECON | Unknown | | + + + + + Care Team Providers + +------+ + | Care Supervisor Pumping Name | Role | Phone | + +------+ + | Lorenzo Valdes MD | PCP | | + +------+ + Encounter Details +--------+ + + + + | Date | Type | Department | Care Team | Description | +--------+ + + + + | 01/03/ | Hospital | [facility] | Conversion | S/P CABG (coronary | | 2013 | Encounter | [facility] | Transaction, | artery bypass graft) | | | | [address] | Provider Unknown | | | | | [place] | | | | | | [address] | | | | | | [phone] | | | +--------+ + + + [...] [place] | | | | | | [address] | | | | | | | [...] [place] | | | | | | [address] | | | | | | | [...]
--- OUTSIDE RECORDS SUMMARY | ~2019-03-06 | XMS | Encounter Summary ---
Demographics + + + | Address | [address] | | | [place] [address] | + + + | Home Phone | | + + + | Preferred Language | Unknown | + + + | Marital Status | | + + + | Buddhist Affiliation | 1041 | + + + | Race | Unknown | + + + | Ethnic Group | Unknown | + + + Author + + + | Author | [facility] | | | and [place] | + + + | Organization | [facility] | | [...] [place], [place] | | | | | [address] | | + + + + + | Rivka Palma | ECON | Unknown | | + + + + + | Geno Kendall | ECON | Unknown | | + + + + + Care Team Providers + +------+ + | Care Paper Bundler Name | Role | Phone | + +------+ + | Lorenzo Valdes MD | PCP | | + +------+ + Reason for Referral Diagnostic/Screening (Routine) +--------+--------+ + + + + | Status | Reason | Specialty | Diagnoses / | Referred By | Referred To | | | | | Procedures | Contact | Contact | +--------+--------+ + + + + | Closed | | Radiology | Diagnoses | Terry, | | | | | | Dyspnea | Brandon Menchaca, | | | | | | Bronchiectas | MD [address] | | | | | | is (HCC) | [address] | | | | | | Procedures | [place], | | | | | | XR Chest PA | [place] [address] | | | | | | and Lateral | Phone: | | | | | | | [phone] | | | | | | | [phone] Fax: | | | | | | | | | | | | | | [phone] | | +--------+--------+ + + + + Reason for Visit +--------+ + | Reason | Comments | +--------+ + | Other | increased symptoms | +--------+ + Encounter Details +--------+ + + + + | Date | Type | Department | Care Team | Description | +--------+ + + + + | 08/29/ | Telephone | [facility] | Brandon Terry | Other (increased | | 2013 | | PULMONARY [address] | MD Bernarda ARMANI | symptoms) | | | | [place] [address], | [place], [place] | | | | | [place] [address] | [address] | | | | | [phone] | | | +--------+ + + + [...] [place] | | | | | | [address] | | | | | | | [...] [place] | | | | | | [address] | | | | | | | | +--------+ + + + + + +---------+--------+ + + | Name | Type | Priori | Associated Diagnoses | Order Schedule | | | | ty | | | + +---------+--------+ + + | XR Chest PA and | Imaging | Routin | Dyspnea | Expected: | | Lateral | | e | Bronchiectasis ([facility]) | 08/29/2013, Expires: | | | | | | 08/29/2014 | + +---------+--------+ + + documented as of this encounter Visit Diagnoses + + | Diagnosis | + + | Dyspnea - Primary Other dyspnea and respiratory abnormality | + + | Bronchiectasis ([facility]) Bronchiectasis without acute exacerbation | + + documented in this encounter"
--- OUTSIDE RECORDS SUMMARY | ~2019-03-06 | XMS | Encounter Summary ---
Demographics + + + | Address | [address] | | | [place] [address] | + + + | Home Phone | | + + + | Preferred Language | Unknown | + + + | Marital Status | | + + + | Catholic Affiliation | 1041 | + + + [...] [place], [place] | | | | | [address] | | + + + + + | Rivka Palma | ECON | Unknown | | + + + + + | Geno Kendall | ECON | Unknown | | + + + + + Care Team Providers + +------+ + | Care Warehouse Supervisor Name | Role | Phone | + +------+ + | Lorenzo Valdes MD | PCP | | + +------+ + Encounter Details +--------+ + + + + | Date | Type | Department | Care Team | Description | +--------+ + + + + | 03/22/ | Orders Only | [facility] | Maury Bertrand MD | | | 2014 | | NEPHROLOGY [facility] | [address] [place] | | | | | [address] [place] | [address] [place], [place] | | | | | [address] [place], [place] | [address] | | | | | [address] | | | | | | [phone] | | | +--------+ + + + [...] [place] | | | | | | [address] | | | | | | | [...] [place] | | | | | | [address] | | | | | | | [...] | | | LAB | | | GRENADIAN | | | | | + + [...]
--- OUTSIDE RECORDS SUMMARY | ~2019-03-06 | XMS | Encounter Summary ---
Demographics + + + | Address | [address] | | | [place] [address] | + + + | Home Phone [...] [place], [place] | | | | | [address] | | + + + + + | Rivka Palma | ECON | Unknown | | + + + + + | Geno Kendall | ECON | Unknown | | + + + + + Care Team Providers + +------+ + | Care Material Requirements Worker Name | Role | Phone | + +------+ + | Lorenzo Valdes MD | PCP | | + +------+ + Encounter Details +--------+ + + + + | Date | Type | Department | Care Team | Description | +--------+ + + + + | 03/30/ | Orders Only | [facility] | Conversion | | | 2013 | | NEPHROLOGY [place] | Transaction, | | | | | [address] [facility] | Provider Unknown | | | | | [place] | [phone] | | | | | [address] | | | | | | [phone] | | | +--------+ + + + [...] [place] | | | | | | [address] | | | | | | | [...] [place] | | | | | | [address] | | | | | | | [...]
--- OUTSIDE RECORDS SUMMARY | ~2019-03-06 | XMS | Encounter Summary ---
Demographics + + + | Address | [address] | | | [place] [address] | + + + | Home Phone [...] [place] | | | | | [address] | | + + + + + | Rivka Palma | ECON | Unknown | | + + + + + | Geno Kendall | ECON | Unknown | | + + + + + Care Team Providers + +------+ + | Care Graphite Grinder Name | Role | Phone | + [...] + + | 12/10/ | Refill | [facility] | Td Mondragon MD | Medication Refill | | 2019 | | PULMONOLOGY [address] | [address] | | | | | [address] | [place], [place] | | | | | [place], [place] | [address] | | | | | [address] | | | | | | [phone] | | | +--------+--------+ + + + [...] [place] | | | | | | [address] | | | | | | | [...] [place] | | | | | | [address] | | | | | | | | +--------+ + + + + documented as of this encounter Visit Diagnoses Not on filedocumented in this encounter"
--- OUTSIDE RECORDS SUMMARY | ~2019-03-06 | XMS | Encounter Summary ---
Demographics + + + | Address | [address] | | | [place] [address] | + + + | Home Phone | | + + + | Preferred Language | Unknown | + + + | Marital Status | | + + + | Taoism Affiliation | 1041 | + + + | Race | Unknown | + + + | Ethnic Group | Unknown | + + + Author + + + | Author | [facility] | | | and [place] | + + + | Organization | [facility] | | [...] [place], [place] | | | | | [address] | | + + + + + | Rivka Palma | ECON | Unknown | | + + + + + | Geno Kendall | ECON | Unknown | | + + + + + Care Team Providers + +------+ + | Care Editor Farm Journal Name | Role | Phone | + +------+ + | Lorenzo Valdes MD | PCP | | + +------+ + Encounter Details +--------+ + + + + | Date | Type | Department | Care Team | Description | +--------+ + + + + | 09/30/ | Orders Only | [facility] | Conversion | | | 2013 | | CARDIOLOGY [place] | Transaction, | | | | | [address] | Provider Unknown | | | | | [place], [place] | [phone] | | | | | [address] | | | | | | [phone] | | | +--------+ + + + [...] [place] | | | | | | [address] | | | | | | | [...] [place] | | | | | | [address] | | | | | | | [...]
--- OUTSIDE RECORDS SUMMARY | ~2019-03-06 | XMS | Encounter Summary ---
Demographics + + + | Address | [address] | | | [place] [address] | + + + | Home Phone [...] [place] | | | | | [address] | | + + + + + | Rivka Palma | ECON | Unknown | | + + + + + | Geno Kendall | ECON | Unknown | | + + + + + Care Team Providers + +------+ + | Care Welding Instructor Name | Role | Phone | [...] + + | 12/20/ | Office | [facility] | Bob Puentes | Ischemic | | 2019 | Visit | CARDIOLOGY [place] | MD [address] | cardiomyopathy | | | | [address] | [facility] | (Primary Dx); Status | | | | [place], [place] | [place] | post internal | | | | [address] | [address] | cardiac | | | | [phone] | | defibrillator | | | | [...] injury (HCC) 09/30/2013 Allergic rhinitis Asthma Bronchiectasis ([facility]) CAD (coronary artery disease) 09/13/2013 s/p CABG x5 (HANSON to mid LAD and distal LAD, SVG to RI, SVG to OM, SVG to PDA) 11/24 COPD (chronic obstructive pulmonary disease) ([facility]) Diabetes mellitus, type [address]) Diabetes mellitus, type [address]) Hypercholesterolemia Hyperlipidemia Hypertension Hypokalemia 10/18/2013 Hypothyroidism Ischemic cardiomyopathy Left bundle branch block Non-ST elevated myocardial infarction (non-STEMI) ([facility]) 12/08/2013 Osteoarthritis Pneumonia Status post internal [...] - CELSO; Surgeon: Niraj Celis MD; Location: [facility] MA[facility]; Service: [facility]; Laterality: N/A; HIP SURGERY HYSTERECTOMY HYSTERECTOMY partial OTHER SURGICAL HISTORY CATARACT EXTRACTION OTHER SURGICAL HISTORY Left 12/09/2013 INTERNAL MAMMARY ARTERIAL HARVEST - Procedure: INTERNAL MAMMARY ARTERIAL HARVEST; Surgeon : Niraj Celis MD; Location: [facility] MA[facility] OR; Service: Cardiac; Laterality: Left; OTHER SURGICAL HISTORY Right 12/09/2013 ENDOVASCULAR VEIN HARVEST - Procedure: VEIN - ENDOVASCULAR VEIN HARVEST; Surgeon: Niraj waters MD; Location: [facility]; Service: Cardiac; Laterality: Right; OTHER SURGICAL HISTORY UNLISTED PROCEDURE ARTHROSCOPY - Screws in Right hip OTHER SURGICAL HISTORY HARDWARE PRESENT - screws in right hip PACEMAKER INSERTION 2013 STERNOTOMY 12/09/2013 Procedure: STERNOTOMY; Surgeon: Niraj Celis MD; Location: [facility]; Service: [facility];; TRANSTHORACIC ECHOCARDIOGRAM 09/2018 EF 20-25%, mild MR, mild TR, mild IL, RVSP 31 Family History Problem Relation Age [...] No Social History Narrative She lives in [place]. to Alfredo 1950. Has mainly been a [...] [facility]. 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
--- OUTSIDE RECORDS SUMMARY | ~2019-03-06 | XMS | Encounter Summary ---
Demographics + + + | Address | [address] | | | [place] [address] | + + + | Home Phone | | + + + | Preferred Language | Unknown | + + + | Marital Status | Single | + + + | Jainism Affiliation | Unknown | + + + | Race | Unknown | + + + | Ethnic Group | Other Race | + + + Author + + + | Author | [facility] | + + + | Organization | [facility] | + + + [...] Team Providers + +------+ + | Care Automotive Power Electronics Engineer Name | Role | Phone | + +------+ + PCP | Unavailable | + +------+ + Encounter Details +--------+ + + + + | Date | Type | Department | Care Team | Description | +--------+ + + + + | 10/15/ | Abstract | Orthopaedics at | Peter Larson, | | | 2018 | | [facility] [address] | [address] | | | | | [place] | [facility] | | | | | [facility] [address] | [place], [place] | | | | | [place], [place] | [address] | | | | | [address] | [phone] | | | | | [phone] | | | +--------+ + + + [...]
--- OUTSIDE RECORDS SUMMARY | ~2019-03-06 | XMS | Encounter Summary ---
Demographics + + + | Address | [address] | | | [place] [address] | + + + | Home Phone [...] [place], [place] | | | | | [address] | | + + + + + | Rivka Palma | ECON | Unknown | | + + + + + | Geno Kendall | ECON | Unknown | | + + + + + Care Team Providers + +------+ + | Care Senior Internet Sales Consultant Name | Role | Phone | + +------+ + | Lorenzo Valdes MD | PCP | | + +------+ + Encounter Details +--------+ + + + + | Date | Type | Department | Care Team | Description | +--------+ + + + + | 11/13/ | Orders Only | [facility] | Conversion | | | 2014 | | CARDIOLOGY [place] | Transaction, | | | | | [address] | Provider Unknown | | | | | [place], [place] | [phone] | | | | | [address] | | | | | | [phone] | | | +--------+ + + + [...] [place] | | | | | | [address] | | | | | | | [...] [place] | | | | | | [address] | | | | | | | [...]
--- OUTSIDE RECORDS SUMMARY | ~2019-03-06 | XMS | Encounter Summary ---
Demographics + + + | Address | [address] | | | [place] [address] | + + + | Home Phone | | + + + | Preferred Language | Unknown | + + + | Marital Status | | + + + | Mormon Affiliation | 1041 | + + + [...] [place], [place] | | | | | [address] | | + + + + + | Rivka Palma | ECON | Unknown | | + + + + + | Geno Kendall | ECON | Unknown | | + + + + + Care Team Providers + +------+ + | Care Shipfitter Helper Name | Role | Phone | + +------+ + | Lorenzo Valdes MD | PCP | | + +------+ + Encounter Details +--------+ + + + + | Date | Type | Department | Care Team | Description | +--------+ + + + + | 09/27/ | Hospital | [facility] | Conversion | Diagnosis unknown | | 2018 | Encounter | CONVERSION [address] | Transaction, | | | | | [address] | Provider Unknown | | | | | [place] | [phone] | | | | | [address] | | | | | | [phone] | | | +--------+ + + + [...] [place] | | | | | | [address] | | | | | | | [...] [place] | | | | | | [address] | | | | | | | [...]
--- OUTSIDE RECORDS SUMMARY | ~2019-03-06 | XMS | Clinical Summary ---
Demographics + + + | Address | [address] | | | [place] [address] | + + + | Home Phone | | + + + | Preferred Language | Unknown | + + + | Marital Status | Single | + + + | Temple Affiliation | Unknown | + + + | Race | Unknown | + + + | Ethnic Group | Other Race | + + + Author + + + | Author | [facility] | + + + | Organization | [facility] | + + + | [...] Team Providers + +------+ + | Care Railroad Conductor Name | Role | Phone | + +------+ + PCP | Unavailable | + +------+ + Source Comments WING is fully live on both [facility] Ambulatory and [facility] InPatient.[facility] Allergies Not on File Medications Not on [...] | [facility] | xxxxxxxxxx | 09/11/18 | [phone] | [address] | [facility] | | | RE A & | | [address] | [address] | [address] | re | | | B | | sent | | [place] | | | | | | | | [address] | | + +--------+ +--------+ + +--------+ [...] | 1931 | [phone] | [place] [address] | | | pita | | | 5 (Home) | | + +--------+ +--------+ + +"
--- OUTSIDE RECORDS SUMMARY | ~2019-03-06 | XMS | Encounter Summary ---
Demographics + + + | Address | [address] | | | [place] [address] | + + + | Home Phone | | + + + | Preferred Language | Unknown | + + + | Marital Status | | + + + | Hindu Affiliation | 1041 | + + + [...] [place], [place] | | | | | [address] | | + + + + + | Rivka Palma | ECON | Unknown | | + + + + + | Geno Kendall | ECON | Unknown | | + + + + + Care Team Providers + +------+ + | Care Corn Miller Name | Role | Phone | + +------+ + | Lorenzo Valdes MD | PCP | | + +------+ + Encounter Details +--------+ + + + + | Date | Type | Department | Care Team | Description | +--------+ + + + + | 10/17/ | Orders Only | [facility] | Conversion | | | 2013 | | NEPHROLOGY [place] | Transaction, | | | | | [address] [facility] | Provider Unknown | | | | | [place] | [phone] | | | | | [address] | | | | | | [phone] | | | +--------+ + + + [...] [place] | | | | | | [address] | | | | | | | [...] [place] | | | | | | [address] | | | | | | | [...] | | | LAB | | | SUDAN[place] | | | | | + +-------+ [...]
--- OUTSIDE RECORDS SUMMARY | ~2019-03-06 | XMS | Encounter Summary ---
Demographics + + + | Address | [address] | | | [place] [address] | + + + | Home Phone | | + + + | Preferred Language | Unknown | + + + | Marital Status | Single | + + + | Sikhism Affiliation | Unknown | + + + | Race | Unknown | + + + | Ethnic Group | Other Race | + + + Author + + + | Author | [facility] | + + + | Organization | [facility] | + + + [...] Team Providers + +------+ + | Care Patient Centered Care Specialist Name | Role | Phone | [...] | | | | [place] | [facility] | | | | | [address] | [place], [place] | | | | | [place] | [address] | | | | | [address] | [phone] | | | | | [phone] | | | +--------+ + + + [...]
--- OUTSIDE RECORDS SUMMARY | ~2019-03-06 | XMS | Encounter Summary ---
Demographics + + + | Address | [address] | | | [place] [address] | + + + | Home Phone | | + + + | Preferred Language | Unknown | + + + | Marital Status | Single | + + + | Methodist Affiliation | Unknown | + + + | Race | Unknown | + + + | Ethnic Group | Other Race | + + + Author + + + | Author | [facility] | + + + | Organization | [facility] | + + [...] Team Providers + +------+ + | Care Bedspread Cutter Name | Role | Phone | + +------+ + PCP | Unavailable | + +------+ + Encounter Details +--------+ + + + + | Date | Type | Department | Care Team | Description | +--------+ + + + + | 10/15/ | Abstract | Orthopaedics at | Peter Larsno, | | | 2018 | | [facility] [address] | [address] | | | | | [place] | [facility] | | | | | [facility] [address] | [place], [place] | | | | | [place], [place] | [address] | | | | | [address] | [phone] | | | | | [phone] | | | +--------+ + + + [...]
--- OUTSIDE RECORDS SUMMARY | ~2019-03-06 | XMS | Clinical Summary ---
Demographics + + + | Address | [address] | | | [place] [address] | + + + | Home Phone | | + + + | Preferred Language | Unknown | + + + | Marital Status | | + + + | Taoist Affiliation | 1041 | + + + | Race | Unknown | + + + | Ethnic Group | Unknown | + + + Author + + + | Author | [facility] (Historical as of | | | 11-27-18) | + + + | Organization | [facility] (Historical as of | | | 11-27-18) | + + + | Address | Unknown | + + + | Phone | Unavailable | + + + Support + + + + + | Name | Relationship | Address | Phone | + + + + + | Tamiko Crockett | ECON | [address] | | | | | [place] | | | | | [address] | | + + + + + | Rivka Palma | ECON | Unknown | | + + + + + | Geno Kendall | ECON | Unknown | | + + + + + Care Team Providers + +------+ + | Care Medicaid Biller Name | Role | Phone | + +------+ + | Carmen Schultz MD | PP | | + +------+ + Allergies + + + + + + | Active Allergy | Reactions | Severity | Noted | Comments | | | | | Date | | + + + + + + | Adhesive Tape | Rash | Medium | 09/29/19 [...] | + + + + + + Current Medications + + +--------+---------+------+------+-------+ | Prescription | Sig. | Disp. | Refills | Star | End | Statu | | | | | | t | Date | s | | | | | | Date | | | + + +--------+---------+------+------+-------+ | levothyroxine | Take 75 mcg by mouth | | | | | Activ | | (SYNTHROID) 75 MCG | every morning | | | | | e | | tablet | before breakfast. | | | | | | + + +--------+---------+------+------+-------+ | Cetirizine HCl 10 | Take 10 mg by mouth | | | | | Activ | | MG CAPS | daily. | | | | | e | + + +--------+---------+------+------+-------+ | Cholecalciferol | Take 1,000 Units by | | | | | Activ | | 1000 UNITS capsule | mouth daily. | | | | | e | + + +--------+---------+------+------+-------+ | FLUTICASONE | by Nasal route daily | | | | | Activ | | PROPIONATE, NASAL, | as needed. | | | | | e | | NA | | | | | | | + + +--------+---------+------+------+-------+ | budesonide | Inhale 2 puffs into | | | | | Activ | | (PULMICORT) 180 | the lungs 2 (two) | | | | | e | | MCG/ACT inhaler | times daily. | | | | | | + + +--------+---------+------+------+-------+ | rosuvastatin | Take 20 mg by mouth | | | 06/0 | | Activ | | (CRESTOR) 20 MG | nightly. | | | 6/20 | | e | | tablet | | | | 14 | | | + + +--------+---------+------+------+-------+ | nitroGLYCERIN | Place 0.4 mg under | | | | | Activ | | (NITROSTAT) 0.4 MG | the tongue every 5 | | | | | e | | SL tablet | (five) minutes as | | | | | | | | needed for Chest | | | | | | | | pain. | | | | | | + + +--------+---------+------+------+-------+ | Coenzyme Q10 (CO Q | Take 300 mg by | | | | | Activ | | 10) 100 MG capsule | mouth. | | | | | e | + + +--------+---------+------+------+-------+ | potassium chloride | Take 1 tablet by | 270 | 3 | 04/0 | | Activ | | (K-TAB) 10 MEQ CR | mouth 3 (three) | tablet | | 4/20 | | e | | tablet | times daily. | | | 16 | | | + + +--------+---------+------+------+-------+ | albuterol | Inhale 2 puffs into | | | | | Activ | | (PROVENTIL | the lungs every 4 | | | | | e | | HFA;VENTOLIN HFA) | (four) hours as | | | | | | | 108 (90 BASE) | needed for Wheezing. | | | | | | | MCG/ACT inhaler | | | | | | | + + +--------+---------+------+------+-------+ | aspirin 81 MG | Take 81 mg by mouth | | | 06/2 | | Activ | | chewable tablet | daily. | | | 12/31 | | e | | | | | | 18 | | | + + +--------+---------+------+------+-------+ | calcium carbonate | Take 1,250 mg by | | | 09/12 | | Activ | | (TUMS) 500 MG | mouth daily. | | | 06/02 | | e | | chewable tablet | | | | 18 | | | + + +--------+---------+------+------+-------+ | benzonatate | Take 200 mg by mouth | | 1 | 08/0 | | Activ | | (TESSALON) 200 MG | 3 (three) times | | | 05/02 | | e | | capsule | daily. | | | 18 | | | + + +--------+---------+------+------+-------+ | montelukast | Take 10 mg by mouth | | 0 | 07/1 | | Activ | | (SINGULAIR) 10 MG | every evening. | | | 09/30 | | e | | tablet | | | | 18 | | | + + +--------+---------+------+------+-------+ | metolazone | Take 1 tablet by | 30 | 2 | 09/2 | | Activ | | (ZAROXOLYN) 2.5 MG | mouth every third | tablet | | 6/20 | | e | | tablet | day as needed. | | | 18 | | | + + +--------+---------+------+------+-------+ | carvedilol (COREG) | Take 1 tablet by | 180 | 3 | 11/1 | | Activ | | 3.125 MG tablet | mouth 2 (two) times | tablet | | 4/20 | | e | | | daily with meals. | | | 18 | | | + + +--------+---------+------+------+-------+ | bumetanide (BUMEX) | Take 1 tablet by | 90 | 2 | 04/0 | | Activ | | 1 MG tablet | mouth daily. | tablet | | 3/20 | | e | | | | | | 19 | | | + + +--------+---------+------+------+-------+ | losartan (COZAAR) | Take 0.5 tablets by | 60 | 3 | 04/0 | | Activ | | 25 MG tablet | mouth daily. | tablet | | 4/20 | | e | | | | | | 19 | | | + + +--------+---------+------+------+-------+ | Docusate Sodium | Take 200 mg by | | | 06/2 | | Activ | | (DSS) 100 MG CAPS | mouth. | | | 2/20 | | e | | | | | | 18 | | | + + +--------+---------+------+------+-------+ | guaifenesin | Take 200 mg by | | | 06/2 | | Activ | | (ROBITUSSIN) 100 | mouth. | | | 2/20 | | e | | MG/5ML liquid | | | | 18 | | | + + +--------+---------+------+------+-------+ | acetaminophen | 1000 mg by mouth tid | | | 06/2 | | Activ | | (TYLENOL) 500 MG | x7 days, then 1-2 | | | 2/20 | | e | | tablet | tabs by mouth as | | | 18 | | | | | needed every 6 hours | | | | | | + + +--------+---------+------+------+-------+ | Lidocaine | Place 1-3 patches | | | 06/2 | | Activ | | (LIDOCARE | onto the skin. | | | 3/20 | | e | | BACK/SHOULDER) 4 % | | | | 18 | | | + + +--------+---------+------+------+-------+ | polyethylene | Take 17 g by mouth. | | | 06/2 | | Activ | | glycol (GLYCOLAX) | | | | 2/20 | | e | | packet | | | | 18 | | | + + +--------+---------+------+------+-------+ | tiotropium | Inhale 18 mcg into | | | 06/2 | | Activ | | (SPIRIVA HANDIHALER) | the lungs. | | | 3/20 | | e | | 18 MCG inhalation | | | | 18 | | | | capsule | | | | | | | + + +--------+---------+------+------+-------+ | albuterol | Inhale 2 puffs into | | | | | Activ | | (PROVENTIL HFA) 108 | the lungs. | | | | | e | | (90 Base) MCG/ACT | | | | | | | | inhaler | | | | | | | + + +--------+---------+------+------+-------+ | Fluticasone | Inhale into the | | | | | Activ | | Furoate-Vilanterol | lungs. | | | | | e | | (BREO ELLIPTA) | | | | | | | | 200-25 MCG/INH AEPB | | | | | | | + + +--------+---------+------+------+-------+ | fluticasone | Inhale 1 puff into | | | | | Activ | | (FLOVENT HFA) 220 | the lungs 2 (two) | | | | | e | | MCG/ACT inhaler | times daily. Rinse | | | | | | | | mouth after use | | | | | | + + +--------+---------+------+------+-------+ Active Problems + + + | Problem | Noted Date | + + + | Hyperuricemia | 04/02/2015 | + + + | Biventricular implantable cardioverter-defibrillator in situ | 03/16/2014 | + + + + + | Last Assessment & Plan: CASE WORK AIDE-D, managed by [facility]. Device | | stable, functioning appropriately.CASE WORK AIDE-D, implanted 03/07/2014: | | Medtronic [id number], Victorina Sneed, SN: [id number].Last | | interrogation, 12/19/2015: DDD (70/130), battery 2.99V (UPSET OPERATOR 2.73V), | | 6+ years, device stable, A-paced 54%, bi-V-paced 98%, Mode | | Switch <0.01%, Rx 0. | + + + + + | CKD (chronic kidney disease) stage 3, GFR 30-59 ml/min | 01/13/2014 | + + + + + | Last Assessment & Plan: CKD, Stage 3, followed by Dr Bertrand. | + + + + + | S/P CABG (coronary artery bypass graft) | 12/19/2013 | + + + | Hyperlipidemia | 10/06/2013 | + + + + + | Last Assessment & Plan: Hyperlipidemia, reasonably treated, | | continue current meds at current dose (Crestor). Labs reviewed | | with patient.Lab, 01/08/2016: T Chol: 167, LDL-Chol: 82, HDL-Chol: | | 58, Tri Liver enzymes NML, K: | | 4.3, BUN/Cr: 50/1.4 (GFR 36), glu: 116, M.7 | | TSH: 0.70, free T4: 1.75, HgbA1c: 6.3, WBC: 9.3, H/H: | | 13.5/41.6, plt: 204, ESR: 20 | + + + + + | Ischemic cardiomyopathy | 09/30/2013 | + + + | CAD (coronary artery disease) | 09/13/2013 | + + + + + | Last Assessment & Plan: 3V-CAD, S/P CABG, LVEF 25%. | | 85yo WF, with advanced CAD, ischemic cardiomyopathy with severe | | LV systolic dysfunction. Continues to be modestly active, ADLs. | | She denies any chest pain. She states her functional capacity | | has not changed significantly, she has some degree of exertional | | shortness of breath, but there is no orthopnea or PND, she does | | not have any edema. Denies any new visual disturbances, | | dysarthria, dysphasia, lateralizing signs or symptoms. She | | continues to weigh herself daily, weight stable. Labs reviewed | | with patient. Her device is stable and functioning | | appropriately. Tolerating medications. No changes in therapy.Hx | | CABG, 12/09/2013: CABG*5 (HANSON to mid-LAD/distal LAD, SVG to | | ramus, SVG to OM, SVG to PDA).Hx PCI/stent: noHx Pacemaker/ICD: | | 03/07/2014: Medtronic [id number], Viva Bladea, SN: [id number].Last | | Cath, 09/13/2013: severe 3V-CAD, LVEF 25%.Last Echo, 01/09/2015: | | LVEDd 59mm, LVEF <20% (biplane LVEF 11%), mild-moderate AI, mild | | MR, mild TR, mild PI, no Pericardial effusion, est systolic PAP | | 26-31mmHg.Last Stress Test, 05/17/2014: large area of a | | rvs-dptsd-klean tchlgz-jxypeox-cnmzb TN, on ongoing ischemia. LV | | enlarged, LVEF 18%.ECG, 07/13/2015 ([facility]): sinus rhythm, | | PAC, A-sensed/V-paced 100%. | + + + + + | Essential hypertension, benign | 09/10/2013 | + + + | DM (diabetes mellitus) | 09/10/2013 | + + + + + | Last Assessment & Plan: DM2, managed by PCP. | + + Resolved Problems + + + + | Problem | Noted | Resolved | | | Date | Date | + + + + | Cardiac defibrillator in place | 08/29/19 | | | | 16 | 7 | + + + + + + | Overview: Medtronic | + + + + + + | Acute renal insufficiency | 12/22/19 | | | | 14 | 4 | + + + + | Acute on chronic renal insufficiency | 12/22/19 | | | | 14 | 4 | + + + + | Systolic CHF, acute on chronic | 12/22/19 | | | | 14 | 5 | + + + + | Volume overload | 12/14/19 | | | | 14 | 7 | + + + + | Hyponatremia | 12/12/19 | | | | 14 | 7 | + + + + | Acute blood loss anemia | 12/12/19 | | | | 14 | 7 | + + + + | Non-ST elevated myocardial infarction (non-STEMI) | 12/09/19 | | | | 14 | 8 | + + + + | Hypokalemia | 10/19/19 | | | | 14 | 4 | + + + + | Urinary tract infection | 10/03/19 | | | | 14 | 7 | + + + + | Acute kidney injury (HCC) | 10/01/19 | | | | 14 | 4 | + + + + | Hypotension | 10/01/19 | | | | 14 | 8 | + + + + | Ischemic cardiomyopathy | 09/14/19 | | | | 14 | 8 | + + + + + + | Last Assessment & Plan: Ischemic CM, LVEDd 59mm, LVEF <20%, | | S/P CABG, CASE WORK AIDE-D. Clinically stable, Functional Class 3.Last | | Echo, 01/09/2015: LVEDd 59mm, LVEF <20% (biplane LVEF 11%), | | mild-moderate AI, mild MR, mild TR, mild PI, no Pericardial | | effusion, est systolic PAP 26-31mmHg. (The apex is dyskinetic, | | the remaining segments are severely hypokinetic, except for the | | basal portion of the left ventricle appears to be irene and | | thickening normal. Despite this, the wall thickness for the | | majority the left ventricle appears to be normal, not thin | | hyperreflexic.) | + + + + + + | Acute systolic heart failure (HCC) | 09/14/19 | | | | 14 | 4 | + + + + | SOB (shortness of breath) | 09/11/19 | | | | 14 | 4 | + + + + | CHF (congestive heart failure) | 09/11/19 | | | | 14 | 4 | + + + + | Troponin level elevated | 09/11/19 | | | | 14 | 7 | + + + + Immunizations + + + + | Name | Dates Previously Given | Next Due | + + + + | Pneumococcal | 12/17/2013 | | | Conjugate 13-valent | | | + + + + | Pneumococcal | 12/10/2013, 02/23/2006 | | | Polysaccharide | | | | 23-valent | | | + + + + | Tdap | 08/24/2011 | | + + + + Family History + + +------+ + | Medical History | Relation | Name | Comments | + + +------+ + | Hypertension | Father | | | + + +------+ + | Sudden | Father | | | + + +------+ + | Diabetes type II | Paternal | | | | | [...] + +-------+ + + Social History + + + +--------+ + | Tobacco Use | Types | Packs/Day | Years | Date | | | | | Used | | + + + +--------+ + | Former Smoker | Cigarettes | 1 | 35 | Quit: 12/09/1983 | + + + +--------+ + + +---+---+---+ | Smokeless Tobacco: | | | | | Never Used | | | | + +---+---+---+ + + +---------+ + | Alcohol Use | Drinks/We | oz/Week | Comments | | | ek | | | + + +---------+ + | No | | | | + + +---------+ + + + + | Sex Assigned at | Date Recorded | | | | + + + | Not on file | | + + + Last Filed Vital Signs + + + + | Vital Sign | Reading | Time Taken | + + + + | Blood Pressure | 98/56 | 10/25/2018 2:05 PM PDT | + + + + | Pulse | 76 | 10/25/2018 2:05 PM PDT | + + + + | Temperature | 35.9 C (96.6 F) | 05/01/2017 1:59 PM PST | + + + + | Respiratory Rate | 16 | 06/23/2018 2:15 PM PDT | + + + + | Oxygen Saturation | 93% | 10/25/2018 2:05 PM PDT | + + + + | Inhaled Oxygen | - | - | | Concentration | | | + + + + | Weight | 63.1 kg (139 lb 1.6 | 10/25/2018 2:05 PM PDT | | | oz) | | + + + + | Height | 165.1 cm (5' 5") | 10/25/2018 2:05 PM PDT | + + + + | Body Mass Index | 23.15 | 10/25/2018 2:05 PM PDT | + + + + Plan of Treatment + + + + + | Health Maintenance | Due Date | Last Done | Comments | + + + + + | Diabetic Eye Exam | | | | | | 2 | | | + + + + + | Diabetic Foot Exam | | | | | | 2 | | | + + + + + | Vaccine: Zoster (1 | | | | | of 2) | 2 | | | + + + + + | DEXA SCAN SCREENING | | | | | | 7 | | | + + + + + | Hemoglobin A1c | | 07/23/2015, 12/10/2013, | | | | 6 | 12/09/2013, Additional history | | | | | exists | | + + + + + | Microalbumin | | 09/24/2015, 07/23/2015, | | | Screening | 7 | 07/23/2015, Additional history | | | | | exists | | + + + + + | Vaccine: Influenza | | | | | (#1) | 9 | | | + + + + + | Vaccine: | | 08/24/2011 | | | Dtap/Tdap/Td (2 - | 2 | | | | Td) | | | | + + + + + | Vaccine: | Completed | 12/17/2013, 12/10/2013, | | | Pneumococcal 65+ | | 02/23/2006 | | | Low/Medium Risk | | | | + + + + + Implants + +--------+-------+ +--------+--------+--------+ | Implanted | Type | Area | Manufacture | Device | Expira | Model | | | | | r | | tion | / | | | | | | Identi | Date | Serial | | | | | | fier | | / Lot | + +--------+-------+ +--------+--------+--------+ | RvImplanted: Qty: 1 on | Cardia | | | | | | | 03/07/2014 by Nicolas Paige | jenna | | | | | /[id number] | | MD Cyn | Rhythm | | | | | [id number] | | | | | | | | / | | | Manage | | | | | | | | ment | | | | | | + +--------+-------+ +--------+--------+--------+ | Cs LeadImplanted: Qty: 1 on | Cardia | | MEDTRONIC | | | | | 03/07/2014 by Nicolas Paige | c | | | | | /[id number] | | MD Cyn | Rhythm | | | | | [id number] | | | | | | | | / | | | Manage | | | | | | | | ment | | | | | | + +--------+-------+ +--------+--------+--------+ | RaImplanted: Qty: 1 on | Cardia | | [employer]TRONIC | | | | | 03/07/2014 by Nicolas Paige | jenna | | | | | /[id number] | | MD Cyn | Rhythm | | | | | [id number] | | | | | | | | / | | | Manage | | | | | | | | ment | | | | | | + +--------+-------+ +--------+--------+--------+ | BivImplanted: Qty: 1 on | Cardia | | | | | | | 03/07/2014 by Nicolas Paige | | | | | /[id number] | | MD Cyn | Rhythm | | | | | [id number] | | | | | | | | / | | | Manage | | | | | | | | ment | | | | | | + +--------+-------+ +--------+--------+--------+ | Pacing Wire Dual | | Heart | [facility]NY MED | | 06/10/ | 030-00 | | 030-005 - | | | | | 2019 | 5 / | | [id number]: Qty: 1 on | | | | | | /164 | | 12/09/2013 by Niraj Celis, | | | | | | | | MD | | | | | | | + +--------+-------+ +--------+--------+--------+ Results Not on filefrom Last 3 Months Insurance + +--------+ +------+-------+ + | Payer | Benefi | Subscriber | Type | Phone | Address | | | t Plan | ID | | | | | | / | | | | | | | Group | | | | | + +--------+ +------+-------+ + | MEDICARE | MEDICA | [id number] | | | [address] | | | [place] | | | | [place] [address] | | | IP-OP | | | | | + +--------+ +------+-------+ + | [employer] [place] | MUTUAL | [id number] | | | | | | [place] | | | | | | | [place] | | | | | + +--------+ +------+-------+ + + +--------+ +--------+ + + | Guarantor Name | Accoun | Relation to | Date | Phone | Billing Address | | | t Type | Patient | of | | | | | | | | | | + +--------+ +--------+ + + | TAMIKO CROCKETT | Person | Self [birth year] | Home: | [address] | | | al/Fam | | [phone] | [phone] [place] | | | pita | | | [phone] | [phone] | + +--------+ +--------+ + +
--- OUTSIDE RECORDS SUMMARY | ~2019-03-06 | XMS | Encounter Summary ---
Demographics + + + | Address | [address] | | | [place] [address] | + + + | Home Phone | | + + + | Preferred Language | Unknown | + + + | Marital Status | Single | + + + | Samaritan Affiliation | Unknown | + + + | Race | Unknown | + + + | Ethnic Group | Other Race | + + + Author + + + | Author | [facility] | + + + | Organization | [facility] | + + + [...] Team Providers + +------+ + | Care Jailer Chief Name | Role | Phone | + +------+ + PCP | Unavailable | + +------+ + Encounter Details +--------+ + + + + | Date | Type | Department | Care Team | Description | +--------+ + + + + | 10/29/ | Document-Sc | Health Information | Unknown . | | | 2018 | anned | Services [id number] | | | | | | [facility] | | | | | | Mailcode: [id number] | | | | | | [facility] | | | | | | [place], [place] | | | | | | [address] | | | | | | [phone] | | | +--------+ + + + [...]
--- OUTSIDE RECORDS SUMMARY | ~2019-03-06 | XMS | Encounter Summary ---
Demographics + + + | Address | [address] | | | [place] [address] | + + + | Home Phone [...] [place], [place] | | | | | [address] | | + + + + + | Rivka Palma | ECON | Unknown | | + + + + + | Geno Kendall | ECON | Unknown | | + + + + + Care Team Providers + +------+ + | Care Cuffing Machine Operator Name | Role | Phone | + +------+ + | Lorenzo Valdes MD | PCP | | + +------+ + Encounter Details +--------+ + + + + | Date | Type | Department | Care Team | Description | +--------+ + + + + | 09/21/ | Orders Only | [facility] | Conversion | | | 2014 | | CARDIOLOGY [place] | Transaction, | | | | | [address] | Provider Unknown | | | | | [place], [place] | [phone] | | | | | [address] | | | | | | [phone] | | | +--------+ + + + [...] [place] | | | | | | [address] | | | | | | | [...] [place] | | | | | | [address] | | | | | | | [...]
--- OUTSIDE RECORDS SUMMARY | ~2019-03-06 | XMS | Encounter Summary ---
Demographics + + + | Address | [address] | | | [place] [address] | + + + | Home Phone | | + + + | Preferred Language | Unknown | + + + | Marital Status | | + + + | Scientologist Affiliation | 1041 | + + + | Race | Unknown | + + + | Ethnic Group | Unknown | + + + Author + + + | Author | [facility] | | | and [place] | + + + | Organization | [facility] | | [...] [place], [place] | | | | | [address] | | + + + + + | Rivka Palma | ECON | Unknown | | + + + + + | Geno Kendall | ECON | Unknown | | + + + + + Care Team Providers + +------+ + | Care Water Operator Name | Role | Phone | [...] + + | 09/02/ | Documentati | [facility] | Brandon Terry | Cough | | 2013 | on | PULMONARY [address] | [place] [address] [address] | | | | | [place], | [place], [place] | | | | | [place] [address] | [address] | | | | | [phone] | | | +--------+ + + + [...] | | | | | [address], [place] | | | | | | [address] | | | | | | | [...] [place] | | | | | | [address] | | | | | | | | +--------+ + + + + documented as of this encounter Visit Diagnoses + + | Diagnosis | + + | BRONCHIECTASIS - Primary Bronchiectasis without acute exacerbation | + + documented in this encounter"
--- OUTSIDE RECORDS SUMMARY | ~2019-03-06 | XMS | Encounter Summary ---
Demographics + + + | Address | [address] | | | [place] [address] | + + + | Home Phone | | + + + | Preferred Language | Unknown | + + + | Marital Status | | + + + | Church Affiliation | 1041 | + + + [...] [place], [place] | | | | | [address] | | + + + + + | Rivka Palma | ECON | Unknown | | + + + + + | Geno Kendall | ECON | Unknown | | + + + + + Care Team Providers + +------+ + | Care Window Draper Name | Role | Phone | + [...] + + | 08/16/ | Telephone | [facility] | Brandon Terry | Breathing Problem | | 2013 | | PULMONARY [address] [place] [address] [address] | | | | | [place], | [place], [place] | | | | | [place] [address] | [address] | | | | | [phone] | | | +--------+ + + + [...] [place] | | | | | | [address] | | | | | | | [...] [place] | | | | | | [address] | | | | | | | | +--------+ + + + + documented as of this encounter Visit Diagnoses Not on filedocumented in this encounter"
--- OUTSIDE RECORDS SUMMARY | ~2019-03-06 | XMS | Encounter Summary ---
Demographics + + + | Address | [address] | | | [place] [address] | + + + | Home Phone | | + + + | Preferred Language | Unknown | + + + | Marital Status | | + + + | Oriental Orthodox Affiliation | 1041 | + + + | Race | Unknown | + + + | Ethnic Group | Unknown | + + + Author + + + | Author | [facility] | | | and [place] | + + + | Organization | [facility] | | | [...] [place], [place] | | | | | [address] | | + + + + + | Rivka Palma | ECON | Unknown | | + + + + + | Geno Kendall | ECON | Unknown | | + + + + + Care Team Providers + +------+ + | Care Bench Press Operator Name | Role | Phone | [...] + + | 08/16/ | Office | [facility] | Brandon Terry | BRONCHIECTASIS | | 2014 | Visit | PULMONARY [address] | [place] [address] [address] | (Primary Dx); | | | | [place], | [place], [place] | [place], | | | | [place] [address] | [id number] | OBSTRUCTIVE CHRONIC; | | | | [phone] | | Asthma, extrinsic, | | | | | | mild persistent, | | | | | | uncomplicated; | | | | | | Allergic rhinitis | | | | | | due to pollen; | | | | | | Coronary artery | | | | | | disease involving | | | | | | [place] coronary | | | | | | [...] as needed. I sent a prescription to [facility] for the Asmanex. Continue to use the Acapella device as needed for mucus. Continue the guaifenesin (generic mucinex) daily. Get a flu shot this fall. Continue the fluticasone nasal spray as needed and the cetirizine (Zyrtec) daily. If you have not had the new Prevnar 13 pneumonia vaccine, you should get that. ([facility] Valdes records.) documented in this encounter Progress Notes Brandon Terry MD - 08/16/2014 5:57 PM PDTFormatting of this note might be differen t from the original. Brandon Terry MD [facility] [address] [place] [id number] 08/16/2014 Tamiko Ireland 1930 History Tamiko Ireland is a 84 y.o. female followed [...] treatment, she underwent coronary bypass surgery at [facility] on December 12, 2013. She did [...] 02, 2014. She will be seeing her habilitation assistant again next week. She feels her airway [...] 2008, sent by Dr. Tono Valdes in [place], [place]. Mrs. Ireland recalled problems dating back [...] he chest that had been performed at [facility] on July 29, 2005. That CT scan [...] 2. BRONCHITIS, OBSTRUCTIVE CHRONIC She has a 77-wgzf-csjm smoking history. Fortunately, pulmonary function test performed [...] when needed. 5. Coronary artery disease involving [place] coronary artery without angina pectoris 6. S/P [...] may be present due to inadvertent computerized financial administrator errors. If there are any ques tions regarding the financial administrator, please contact our office. documented in th is encounter Plan of Treatment +--------+ + + + + | Date | Type | Specialty | Care Team | Description | +--------+ + + + + | 03/09/ | Office | Cardiology | [place], | | | 2018 | Visit | | MD Lucila WIGGINS | | | | | | [place] | | | | | | [phone] | | | | | | | [...] [place] | | | | | | [address] | | | | | | | [...] + + | Coronary artery disease involving [place] coronary artery without angina pectoris | + + | S/P CABG (coronary artery bypass graft) Postsurgical aortocoronary bypass status | + + documented in this encounter
--- OUTSIDE RECORDS SUMMARY | ~2019-03-06 | XMS | Encounter Summary ---
Demographics + + + | Address | [address] | | | [place] [address] | + + + | Home Phone [...] [place], [place] | | | | | [address] | | + + + + + | Rivka Palma | ECON | Unknown | | + + + + + | Geno Kendall | ECON | Unknown | | + + + + + Care Team Providers + +------+ + | Care Permit Coordinator Name | Role | Phone | + +------+ + | Lorenzo Valdes MD | PCP | | + +------+ + Encounter Details +--------+ + + + + | Date | Type | Department | Care Team | Description | +--------+ + + + + | 08/02/ | Hospital | [facility] | Conversion | | | 2015 | Encounter | [facility] | Transaction, | | | | | [address] | Provider Unknown | | | | | [place], [place] | [phone] | | | | | [address] | | | | | | [phone] | | | +--------+ + + + [...] | | | | | | ([facility]), Bronchitis, | | | | | [...] [place] | | | | | | [address] | | | | | | | [...] [place] | | | | | | [address] | | | | | | | | +--------+ + + + + documented as of this encounter Visit Diagnoses Not on filedocumented in this encounter"
--- OUTSIDE RECORDS SUMMARY | ~2019-03-06 | XMS | Encounter Summary ---
Demographics + + + | Address | [address] | | | [place] [address] | + + + | Home Phone [...] [place], [place] | | | | | [address] | | + + + + + | Rivka Palma | ECON | Unknown | | + + + + + | Geno Kendall | ECON | Unknown | | + + + + + Care Team Providers + +------+ + | Care Soda Room Operator Name | Role | Phone | + +------+ + | Lorenzo Valdes MD | PCP | | + +------+ + Encounter Details +--------+ + + + + | Date | Type | Department | Care Team | Description | +--------+ + + + + | 08/02/ | Hospital | [facility] | Conversion | Pleural effusion | | 2015 | Encounter | [facility] | Transaction, | | | | | [address] | Provider Unknown | | | | | [place], [place] | [phone] | | | | | [address] | | | | | | [phone] | | | +--------+ + + + [...] | | | | | ([facility]), Bronchitis, | | | | | | | obstructive, chronic | | | | | | | ([facility]) | | | | | | + [...] [place] | | | | | | [address] | | | | | | | [...] [place] | | | | | | [address] | | | | | | | [...] GROWTH | | | Testing performed at [facility], | | | [address] [facility] [place] [address] | | + + + + +---------+ [...] | | | | | performed at [facility] [place];[facility] | | | | | | [facility];[place], [place] | | | | | | [address] | | | | + + + [...] [place] | | | | | | [address] | | | | + + + + + + | RED CELL | 5.03Comment: Testing | 3.70 - 5.10 | EXTERNAL | | | COUNT | performed at [facility], [address] | M/uL | LAB | | | | [address], | | | | | | [place] [address] | | | | + + + + + + | Hgb | 15.0Comment: Testing | 11.3 - 15.5 | EXTERNAL | | | | performed at [facility], [address] | g/dL | LAB | | | | [address], | | | | | | [place] [address] | | | | + + + + + + | Hematocrit, | 46.0Comment: Testing | 34.0 - 46.0 % | EXTERNAL | | | POC | performed at [facility], [address] | | LAB | | | | [address], | | | | | | [place] [address] | | | | + + + + + + | MCV | 91.6Comment: Testing | 80.0 - 100.0 fl | EXTERNAL | | | | performed at [facility], [address] | | LAB | | | | [address], | | | | | | [place] [address] | | | | + + + + + + | MCH | 29.9Comment: Testing | 27.0 - 34.0 pg | EXTERNAL | | | | performed at [facility], [address] | | LAB | | | | [address], | | | | | | [place] [address] | | | | + + + + + + | MCHC | 32.6Comment: Testing | 32.0 - 35.5 | EXTERNAL | | | | performed at [facility], [address] | g/dL | LAB | | | | [address], | | | | | | [place] [address] | | | | + + + + + + | RDW-CV | 49.0Comment: Testing | 37 - 53 fl | EXTERNAL | | | | performed at [facility], [address] | | LAB | | | | [address], | | | | | | [place] [address] | | | | + + + + + + | Platelet | 288Comment: Testing | 150 - 400 K/uL | EXTERNAL | | | Count | performed at [facility], [address] | | LAB | | | Plasma | [address], | | | | | | [place] [address] | | | | + + + + + + | MPV | 8.3Comment: Testing | fl | EXTERNAL | | | | performed at [facility], [address] | | LAB | | | | [address], | | | | | | [place] [address] | | | | + + + + + + | Differentia | AUTOMATEDComment: | | EXTERNAL | | | l Type | Testing performed at | | LAB | | | | [facility], [address] | | | | | | [place] | | | | | | [address] | | | | + + + + + + | % Segmented | 62.09Comment: Testing | % | EXTERNAL | | | | performed at [facility], [address] | | LAB | | | Neutrophils | [address] [place], | | | | | | [place] [address] | | | | + + + + + + | % | 23.17Comment: Testing | % | EXTERNAL | | | Lymphocytes | performed at [facility], [address] | | LAB | | | | [address], | | | | | | [place] [address] | | | | + + + + + + | % Monocytes | 8.93Comment: Testing | % | EXTERNAL | | | | performed at [facility], [address] | | LAB | | | | [address], | | | | | | [place] [address] | | | | + + + + + + | % | 5.08Comment: Testing | % | EXTERNAL | | | Eosinophils | performed at [facility], [address] | | LAB | | | | [address], | | | | | | [place] [address] | | | | + + + + + + | % Basophils | 0.73Comment: Testing | % | EXTERNAL | | | | performed at [facility], [address] | | LAB | | | | [address], | | | | | | [place] [address] | | | | + + + + + + | Absolute | 8.85 (H)Comment: Testing | 1.90 - 7.40 | EXTERNAL | | | Segmented | performed at [facility], [address] | K/uL | LAB | | | Neutrophils | [address], | | | | | | [place] [address] | | | | + + + + + + | Absolute | 3.30Comment: Testing | 1.00 - 3.90 | EXTERNAL | | | Lymphocytes | performed at [facility], [address] | K/uL | LAB | | | | [address], | | | | | | [place] [address] | | | | + + + + + + | Absolute | 1.27 (H)Comment: Testing | 0.00 - 0.80 | EXTERNAL | | | Monocytes | performed at [facility], [address] | K/uL | LAB | | | | [address], | | | | | | [place] [address] | | | | + + + + + + | Absolute | 0.72 (H)Comment: Testing | 0.00 - 0.50 | EXTERNAL | | | Eosinophils | performed at [facility], [address] | K/uL | LAB | | | | [address], | | | | | | [place] [address] | | | | + + + + + + | Absolute | 0.10Comment: Testing | 0.00 - 0.10 | EXTERNAL | | | Basophils | performed at [facility], [address] | K/uL | LAB | | | | [address], | | | | | | [place] [address] | | | | + + + [...] | | | | | [place] [address] | | | | + + + + + + | K | 4.3Comment: Testing | 3.5 - 4.9 | EXTERNAL | | | | performed at [facility], [address] | mmol/L | LAB | | | | [address], | | | | | | [place] [address] | | | | + + + + + + | Cl | 102Comment: Testing | 99 - 109 mmol/L | EXTERNAL | | | | performed at [facility], [address] | | LAB | | | | [address], | | | | | | [place] [address] | | | | + + + + + + | CO2 | 23Comment: Testing | 23 - 32 mmol/L | EXTERNAL | | | | performed at [facility], [address] | | LAB | | | | [address], | | | | | | [place] [address] | | | | + + + + + + | Anion Gap | 15Comment: Testing | 5 - 20 mmol/L | EXTERNAL | | | | performed at [facility], [address] | | LAB | | | | [address], | | | | | | [place] [address] | | | | + + + + + + | Glucose, | 165 (H)Comment: Testing | 65 - 99 mg/dL | EXTERNAL | | | Fasting | performed at [facility], [address] | | LAB | | | | [address], | | | | | | [place] [address] | | | | + + + + + + | BUN | 39 (H)Comment: Testing | 8 - 25 mg/dL | EXTERNAL | | | | performed at [facility], [address] | | LAB | | | | [address], | | | | | | [place] [address] | | | | + + + + + + | Creatinine | 1.23 (H)Comment: Testing | 0.50 - 1.00 | EXTERNAL | | | | performed at [facility], [address] | mg/dL | LAB | | | | [address], | | | | | | [place] [address] | | | | + + + + + + | BUN/Creatin | 32Comment: Testing | | EXTERNAL | | | ine Ratio | performed at [facility], [address] | | LAB | | | | [address], | | | | | | [place] [address] | | | | + + + + + + | Calcium | 9.7Comment: Testing | 8.5 - 10.5 | EXTERNAL | | | | performed at [facility], [address] | mg/dL | LAB | | | | [address], | | | | | | [place] [address] | | | | + + + [...] | | | | | [place] [address] | | | | + + + [...]
--- OUTSIDE RECORDS SUMMARY | ~2019-03-06 | XMS | Encounter Summary ---
Demographics + + + | Address | [address] | | | [place] [address] | + + + | Home Phone [...] [place], [place] | | | | | [address] | | + + + + + | Rivka Palma | ECON | Unknown | | + + + + + | Geno Kendall | ECON | Unknown | | + + + + + Care Team Providers + +------+ + | Care Claim Representative Name | Role | Phone | + [...] | | XR Chest [place] | [place] [address] | | | | | | and Lateral | Phone: | | | | | | | [phone] | | | | | | | [phone] Fax: | | | | | | | | | | | | | | [phone] | | +--------+--------+ + + + + Reason for Visit +--------+ + | Reason | Comments | +--------+ + | Other | increased symptoms | +--------+ + Encounter Details +--------+ + + + + | Date | Type | Department | Care Team | Description | +--------+ + + + + | 08/29/ | Telephone | [facility] | Brandon Terry | Other (increased | | 2013 | | PULMONARY [address] | [place] [address] | symptoms) | | | | [address], | [place], [place] | | | | | [place] [address] | [address] | | | | | [phone] | | | +--------+ + + + [...] [place] | | | | | | [address] | | | | | | | [...] [place] | | | | | | [address] | | | | | | | | +--------+ + + + + + +---------+--------+ + + | Name | Type | Priori | Associated Diagnoses | Order Schedule | | | | ty | | | + +---------+--------+ + + | XR Chest PA and | Imaging | Routin | Dyspnea | Expected: | | Lateral | | e | Bronchiectasis ([facility]) | 08/29/2013, Expires: | | | | | | 08/29/2014 | + +---------+--------+ + + documented as of this encounter Visit Diagnoses + + | Diagnosis | + + | Dyspnea - Primary Other dyspnea and respiratory abnormality | + + | Bronchiectasis ([facility]) Bronchiectasis without acute exacerbation | + + documented in this encounter"
--- OUTSIDE RECORDS SUMMARY | ~2019-03-06 | XMS | Clinical Summary ---
Demographics + + + | Address | [address] | | | [place] [address] | + + + | Home Phone | | + + + | Preferred Language | Unknown | + + + | Marital Status | | + + + | Mosque Affiliation | 1041 | + + + | Race | Unknown | + + + | Ethnic Group | Unknown | + + + Author + + + | Author | [email or web address] (Historical as of | | | 11-27-18) | + + + | Organization | [email or web address] (Historical as of | | | 11-27-18) | + + + | Address | Unknown | + + + | Phone | Unavailable | + + + Support + + + + + | Name | Relationship | Address | Phone | + + + + + | Tamiko Crockett | ECON | [address] [facility] | | | | | [place] | | | | | [address] | | + + + + + | Rivka Palma | ECON | Unknown | | + + + + + | Geno Kendall | ECON | Unknown | | + + + + + Care Team Providers + +------+ + | Care Door Framer Name | Role | Phone | + [...] + + | Last Assessment & Plan: 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 LV | | enlarged, [...] 59mm, LVEF <20%, | | S/P CABG, TACKING MACHINE OPERATOR-D. Clinically stable, Functional Class 3.Last | | [...] | Rhythm | | | | | [address] | | | | | | | [...] | 2019 | 5 / | | [id number]: Qty: 1 on | | | | [...] +------+-------+ + | MEDICARE | MEDICA | [id number] | | | [address] | | | [place] | | | | [place] [address] | | | IP-OP | | | | | + +--------+ +------+-------+ + | [employer] | [employer]UAL | [id number] | | | | | | [place] | | | | | | | [place] | | | | | + +--------+ [...] | | al/Fam | | 1931 | [phone] | [place] | | | pita | | | [address] | [address] | + +--------+ +--------+ + +
--- OUTSIDE RECORDS SUMMARY | ~2019-03-06 | XMS | Encounter Summary ---
Demographics + + + | Address | [address] | | | [place] [address] | + + + | Home Phone | | + + + | Preferred Language | Unknown | + + + | Marital Status | | + + + | Rastafari Affiliation | [id number] | + + + [...] [place], [place] | | | | | [address] | | + + + + + | Rivka Palma | ECON | Unknown | | + + + + + | Geno Kendall | ECON | Unknown | | + + + + + Care Team Providers + +------+ + | Care Reservation Clerk Name | Role | Phone | + +------+ + | Lorenzo Valdes MD | PCP | | + +------+ + Encounter Details +--------+ + + + + | Date | Type | Department | Care Team | Description | +--------+ + + + + | 12/18/ | Hospital | [facility] | Erika Shook MD | Pulmonary edema; | | 2013 - | Encounter | [facility] | [address] [place] | Acute on chronic | | | | CLINICAL DECISION | [address] [place], [place] | renal insufficiency; | | 12/22/ | | [address] | [address] | Systolic CHF, 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[place], [place]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 ([facility]); | | | | [address] | | 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 | | | | | | graft); Essential | | | | | | hypertension, | | | | | | benign; DM (diabetes | | | | | | mellitus) ([facility]); | | | | | | [...] 12:17 PM PDT Discharge Summaries by Rea Khnana MD at 12/22/13 1217 Author: Rea Khanna MD Service: (none) Author Type: Physician Filed: 12/22/13 1418 Date of Service: 12/22/13 121 Status: Signed Maritime Pilot: Rea Khanna MD (Physician) Related Notes: Original Note by Rea Khanna MD (Physician) filed at 12/22/13 1222 [facility] Service: Hospitalist Physician Discharge Summary Patient ID: Tamiko Ireland 1930 83 y.o. Admit date: 12/18/2013 Discharge date: 12/22/2013 Admitting Physician: Erika Shook MD Discharge Physician: Rea Khnana MD Consultants: Treatment Team: Physician Refrigerating Engineer Head: John Bass PA-C Consulting Physician: Preston Pena MD Admitting Provider: Erika Shook MD [...] CELSO; Surgeon: Niraj Celis MD; Location: [facility] OR; Service: Car [place]; Laterality: N/A; Sternotomy 12/09/2013 Procedure: STERNOTOMY; Surgeon: Niraj Celis MD; Location: [facility]; Service: Car dia;; Internal mammary arterial harvest Left 12/09/2013 Procedure: INTERNAL MAMMARY ARTERIAL HARVEST; Surgeon: Niraj Celis MD; Location: [facility]; Service: Cardiac; Laterality: Left; Endovascular vein harvest Right 12/09/2013 Procedure: VEIN - ENDOVASCULAR VEIN HARVEST; Surgeon: Niraj Celis MD; Location: [facility]; Service: Cardiac; Laterality: [...] Follow up: MD Jorge Bowen MD [address] [id number] In 4 days Godfrey Shipman MD [address] [facility] [phone] On 12/26/2013 Niraj Celis MD [address] [facility] [address] Medication List START taking these medications [...] are the prescriptions that 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 You may get the following medications from [...] summary. This entry has been created using WishLink Speech Recognition software and Kontagent. The entry has been reviewed and there [...] | | | | | ([facility]), Bronchitis, | | | | | | | obstructive, chronic | | | | | | | ([facility]) | | | | | | [...] 12/22/131713 Date of Service: 12/22/131712 Status: Signed Maritime Pilot: Alexandra Martin RN (Registered Nurse) Discharge instructions [...] Date of Service: 12/22/13 1210 Status: Signed Maritime Pilot: Preston Pena MD (Physician) [facility] Service: NEPHROLOGY CONSULT Note Tamiko Ireland 83 y.o. [id number] female [facility] Day: LOS: 4 days Date of [...] had CABG On December 09 by at [facility] d/c on Dec 17 After arriving home Over last 48 hrs developed SOB , no chest Pain- ALSO C/ O PAIN RIGHT ANKLE from where the vein harvest was done but patient. but assoicted with fatigue She was d/c on ( Torsemid 10 mg 1 tab every other day ) with increasing SOb and bilateral leg swelling , fatigue , she went to [facility] then she was transfer to [facility] ER for further care evalution Nephrology consulted [...] early age. LIVES AT HOME WITH IN [facility], [facility], Social history, medications, allergies, labs and [...] CELSO; Surgeon: Niraj Celis MD; Location: [facility]; Service: Car diac; Laterality: N/A; Sternotomy 12/09/2013 Procedure: STERNOTOMY; Surgeon: Niraj Celis MD; Location: [facility]; Service: Car diac;; Internal mammary arterial harvest Left 12/09/2013 Procedure: INTERNAL MAMMARY ARTERIAL HARVEST; Surgeon: Niraj Celis MD; Location: [facility]; Service: Cardiac; Laterality: Left; Endovascular vein harvest Right 12/09/2013 Procedure: VEIN - ENDOVASCULAR VEIN HARVEST; Surgeon: Niraj Celis MD; Location: [facility]; Service: Cardiac; Laterality: [...] 12/22/1345 Date of Service: 12/22/13943 Status: Signed Maritime Pilot: Izabella Fontanez RN (Registered Nurse) Faxed referral to [facility] c/o Summer @ [phone] Faxed Patient information to Dr. Green's office [phone] Who will be covering for Dr. Valdes until the 26 of December. Hailee Chatterjee PT - 12/22/2013 8:45 AM PDT Therapy Progress Note by Hailee Harris PT at 12/22/13 0845 Author: Hailee Harris PT Service: (none) Author Type: Physical Therapist Filed: 12/22/13917 Date of Service: 12/22/13844 Status: Signed Maritime Pilot: Hailee Harris PT (Physical Therapist) 12/22/13844 PT [...] shower. Pt left in ower room with TAGMAN Cognition Overall Cognitive Status WFL Orientation Level [...] Devices in Place (in shower room with TAGMAN) Plan Treatment/Interventions Continue per Primary PT POC [...] Service: (none) Author Type: Physician Filed: 12/21/13 8201 Date of Service: 12/21/13 1323 Status: Signed Maritime Pilot: Rea Khanna MD (Physician) [facility] Service: Hospitalist Progress Note Hospital Day: [...] PM This entry has been created using WishLink Speech Recognition software and Kontagent. The entry has been reviewed and there may still exist sound alike word errors. onversion Trans action, Provider Unknown - 12/21/2013 11:28 AM PDT Therapy Progress Note by Sulaiman Tapia PTA at 12/21/13 1128 Author: Sulaiman Tapia PTA Service: (none) Author Type: Chef Instructor Filed: 12/21/13 1129 Date of Service: 12/21/131127 Status: Signed Maritime Pilot: Sulaiman Tapia PTA (Chef Instructor) 12/21/13 1128 PT Last Visit PT Received [...] 12/21/13821 Date of Service: 12/21/13819 Status: Signed Maritime Pilot: Alexandra Martin RN (Registered Nurse) Patient reports [...] 12/20/131756 Date of Service: 12/20/131755 Status: Signed Maritime Pilot: Sulaiman Zimmerman RN (Registered Nurse) Took over [...] Tapia PTA at 12/20/13 1201 Author: Sulaiman Tapai PTA Service: (none) Author Type: Chef Instructor Filed: 12/20/13 1204 Date of Service: 12/20/13 1201 Status: Signed Maritime Pilot: Sulaiamn Tapia PTA (Chef Instructor) 12/20/13 1201 PT Last Visit PT Received [...] Service: (none) Author Type: Physician Filed: 12/20/13 6501 Date of Service: 12/20/13 1053 Status: Signed Maritime Pilot: Rea Khanna MD (Physician) [facility] Service: Hospitalist Progress Note Hospital Day: [...] AM This entry has been created using WishLink Speech Recognition software and Kontagent. The entry has been reviewed and there may still exist sound alike word errors. onversion Trans action, Provider Unknown - 12/20/2013 10:11 AM PDT Case Management by Izabella Fontanez RN at 12/20/13 1011 Author: Izabella Fontanez RN Service: (none) Author Type: Registered Nurse Filed: 12/20/13 1217 Date of Service: 12/20/13 1011 Status: Addendum Maritime Pilot: Izabella Fontanez RN (Registered Nurse) Related Notes: [...] Date of Service: 12/19/13 1859 Status: Signed Maritime Pilot: Jay Cabello RN (Registered Nurse) Pt. Has been fairly fatigued throughout shift. has been at bedside for most of paul ft. She mentioned she feels its a little housekeeping aide the room and her chest has been itching an d having pain with cough. Gave 650 mg of tylenol. Will continue to monitor. onver yajaira Transaction, Provider Unknown - 12/19/2013 12:48 PM PDT Therapy Progress Note by Bev Castaneda PT at 12/19/13 1248 Author: Bev Castaneda PT Service: (none) Author Type: Physical Therapist Filed: 12/19/13 8349 Date of Service: 12/19/13 1248 Status: Signed Maritime Pilot: Bev Castaneda, PT (Physical Therapist) 12/19/13 1248 PT Last Visit PT Received On 12/19/13 Reason for Treatment Other (comment);Cardiac (SOB; CABG on 12/09 at [facility]) Requires PT Follow Up Awaiting tx [...] home with family. Prior Function Level of [place] Assist with functional mobility;Assist with ADLs;Assist with [...] Other (comment);Cardiac (SOB; CABG on 12/09 at [facility]) Requires PT Follow Up Awaiting tx order Follow up PT Only? No PT Eval/Reassessment Date 12/19/13 Assistance Required 1 person Precautions Cardiac Precautions Sternal Other Comments Comments Pt is an 83 y.o. female who underwent CABG on 12/09 here at [facility]. Pt discharged pauline e 2 days [...] 1223 Date of Service: 12/19/131217 Status: Signed Maritime Pilot: Izabella Fontanez RN (Registered Nurse) Spoke with patient, and daughter regarding discharge plans. SNF is not an option f or family. They agree with letting the PT evaluation recommend what is best. They live in [place] so if HH is recommended they would prefer [facility]. Charles Joseph MD - 12/19/2013 9:25 AM PDT Progress Notes by Charles Chopra MD at 12/19/13 8754 Author: Charles Chopra MD Service: Hospitalist Author Type: Physician Filed: 12/19/13 8933 Date of Service: 12/19/13924 Status: Addendum Maritime Pilot: Charles Chopra MD (Physician) Related Notes: Original Note by Charles Chopra MD (Physician) filed at 12/19/13 5035 [facility] Service: Hospitalist Progress Note Hospital Day: [...] B12: No results found for this basename: [id number] FOLATE: No results found for this basename: [...] an EF between 25 - 30 %. Owner Spa Director: DAIJA Authenticated by: Thomas Bynum MD Report [...] 12/18/131646 Date of Service: 12/18/131646 Status: Signed Maritime Pilot: Renee Haile RPH (Pharmacist) Clinical Pharmacy Note - Renal Dose Adjustment Tamiko Ireland 83 y.o. female Ht Readings from Last 1 Encounters: 12/18/13 1.676 m (5' 5.98") Wt Readings from Last 1 Encounters: 12/18/13 70.308 kg (155 lb) CREATININE Date Value Range Status 12/18/2013 1.22* 0.50 - 1.00 mg/dL Final Testing performed at [facility];[address];[place] [address] CREATININE: 1.22 mg/dL ABNORMAL (12/18/13 1344) Estimated [...] Author: JAIMEE Rodriguez Service: (none) Author Type: Functional Analyst Filed: 12/18/13 1530 Date of Service: 12/18/13 1520 Status: Addendum Maritime Pilot: JAIMEE Rodriguez (Functional Analyst) Related Notes: Original Note by JAIMEE Rodriguez (Functional Analyst) filed at 12/18/13 1529 12/18/13 1518 Discharge Planning Evaluation Admitting Diagnosis Pulmonary Edema Readmission Yes-within 14 days Living Arrangements Spouse/significant other (Alfredo Beka [phone]) Support Systems Children (Josiane, two daughters) Type [...] D) Name of Pharmacy [facility] in [place] Previous home health equipment No Vascular access device No Ostomy/Drains/Appliances Hx of (Defibrillator Vest) Anticipated Disposition Facility Type penitentiary facility;Other (Comment) (if well enought, she can return home) Detention Facility Other (comment) ([facility], [place]) Met with: patient, her and daughter and discussed discharge planning, Pt is a 83 y. o., female who decided not to go to rehab after her surgery. Patient reports CABG 10 days a go, patient reports she was just discharged from the hospital 2 days ago and developed short ness of breath and fatigue at home. Patient went to [facility] in [place] and was transferred here. [address] Celis. Patient's PCP is: JORGE VALDES Patient's insurance: Medicare IP-OP and [employer] [place] Coverage concerns: No current concerns Medication coverage/concerns: Rx coverage [facility] Delivery: No Community resources utilized / needed: TBD Assistance in transportation: Spouse and/or family member Identification of any specific education / training: TBD Barriers to Discharge / Alternative housing needed: could be considering a SNF in [place] Anticipated DCP: SNF or Return home with [...] | | | | | [address] [place], [place] | | | | | | [...] [place] | | | | | | [address] | | | | | | | [...] | | | Fingerstick | performed at [facility];[address] | | LAB | | | | [address];[place] | | | | | | [address] | | | | + + + [...] | | | Fingerstick | performed at [facility];[address] | | LAB | | | | [address];[place], [place] | | | | | | [address] | | | | + + + [...] | LAB | | | | [address], | | | | | | [place] [address] | | | | + + + + + + | RED CELL | 2.99 (L)Comment: Testing | 3.70 - 5.10 | EXTERNAL | | | COUNT | performed at [facility], [address] | M/uL | LAB | | | | [address], | | | | | | [place] [address] | | | | + + + + + + | Hgb | 9.2 (L)Comment: Testing | 11.3 - 15.5 | EXTERNAL | | | | performed at [facility], [address] | g/dL | LAB | | | | [address], | | | | | | [place] [address] | | | | + + + + + + | Hematocrit, | 29.2 (L)Comment: Testing | 34.0 - 46.0 % | EXTERNAL | | | POC | performed at [facility], [address] | | LAB | | | | [address], | | | | | | [place] [address] | | | | + + + + + + | MCV | 97.4Comment: Testing | 80.0 - 100.0 fl | EXTERNAL | | | | performed at [facility], [address] | | LAB | | | [address], | | | | | | [place] [address] | | | | + + + + + + | MCH | 30.8Comment: Testing | 27.0 - 34.0 pg | EXTERNAL | | | | performed at [facility], [address] | | LAB | | | | [address], | | | | | | [place] [address] | | | | + + + + + + | MCHC | 31.6 (L)Comment: Testing | 32.0 - 35.5 | EXTERNAL | | | | performed at [facility], [address] | g/dL | LAB | | | | [address], | | | | | | [place] [address] | | | | + + + + + + | RDW-CV | 50.3Comment: Testing | 37 - 53 fl | EXTERNAL | | | | performed at [facility], [address] | | LAB | | | | [address], | | | | | | [place] [address] | | | | + + + + + + | Platelet | 405 (H)Comment: Testing | 150 - 400 K/uL | EXTERNAL | | | Count | performed at [facility], [address] | | LAB | | | Plasma | [address], | | | | | | [place] [address] | | | | + + + + + + | MPV | 7.3Comment: Testing | fl | EXTERNAL | | | | performed at [facility], [address] | | LAB | | | | [address], | | | | | | [place] [address] | | | | + + + + + + | Differentia | AUTOMATEDComment: | | EXTERNAL | | | l Type | Testing performed at | | LAB | | | | [facility], [address] | | | | | | [place], [place] | | | | | | [address] | | | | + + + + + + | % Segmented | 66.7Comment: Testing | % | EXTERNAL | | | | performed at [facility], [address] | | LAB | | | Neutrophils | [address], | | | | | | [place] [address] | | | | + + + + + + | % | 20.9Comment: Testing | % | EXTERNAL | | | Lymphocytes | performed at [facility], [address] | | LAB | | | | [address], | | | | | | [place] [address] | | | | + + + + + + | % Monocytes | 7.7Comment: Testing | % | EXTERNAL | | | | performed at [facility], [address] | | LAB | | | | [address], | | | | | | [place] [address] | | | | + + + + + + | % | 4.0Comment: Testing | % | EXTERNAL | | | Eosinophils | performed at [facility], [address] | | LAB | | | | [address], | | | | | | [place] [address] | | | | + + + + + + | % Basophils | 0.7Comment: Testing | % | EXTERNAL | | | | performed at [facility], [address] | | LAB | | | | [address], | | | | | | [place] [address] | | | | + + + + + + | Absolute | 7.5 (H)Comment: Testing | 1.9 - 7.4 K/uL | EXTERNAL | | | Segmented | performed at [facility], [address] | | LAB | | | Neutrophils | [address], | | | | | | [place] [address] | | | | + + + + + + | Absolute | 2.4Comment: Testing | 1.0 - 3.9 K/uL | EXTERNAL | | | Lymphocytes | performed at [facility], [address] | | LAB | | | | [address], | | | | | | [place] [address] | | | | + + + + + + | Absolute | 0.9 (H)Comment: Testing | 0 - 0.8 K/uL | EXTERNAL | | | Monocytes | performed at [facility], [address] | | LAB | | | | [address], | | | | | | [place] [address] | | | | + + + + + + | Absolute | 0.5Comment: Testing | 0 - 0.5 K/uL | EXTERNAL | | | Eosinophils | performed at [facility], [address] | | LAB | | | | [address], | | | | | | [place] [address] | | | | + + + + + + | Absolute | 0.1Comment: Testing | 0 - 0.1 K/uL | EXTERNAL | | | Basophils | performed at [facility], [address] | | LAB | | | | [address], | | | | | | [place] [address] | | | | + + + [...] EXTERNAL | | | | performed at [facility], [address] | | LAB | | | | [address], | | | | | | [place] [address] | | | | + + + [...] | | | | | [place] [address] | | | | + + + + + + | K | 3.2 (L)Comment: Testing | 3.5 - 4.9 | EXTERNAL | | | | performed at [facility], [address] | mmol/L | LAB | | | | [address], | | | | | | [place] [address] | | | | + + + + + + | Cl | 98 (L)Comment: Testing | 99 - 109 mmol/L | EXTERNAL | | | | performed at [facility], [address] | | LAB | | | | [address], | | | | | | [place] [address] | | | | + + + + + + | CO2 | 33 (H)Comment: Testing | 23 - 32 mmol/L | EXTERNAL | | | | performed at [facility], [address] | | LAB | | | | [address], | | | | | | [place] [address] | | | | + + + + + + | Anion Gap | 10Comment: Testing | 5 - 20 mmol/L | EXTERNAL | | | | performed at [facility], [address] | | LAB | | | | [address], | | | | | | [place] [address] | | | | + + + + + + | Glucose, | 125 (H)Comment: Testing | 65 - 99 mg/dL | EXTERNAL | | | Fasting | performed at [facility], [address] | | LAB | | | | [address], | | | | | | [place] [address] | | | | + + + + + + | BUN | 14Comment: Testing | 8 - 25 mg/dL | EXTERNAL | | | | performed at [facility], [address] | | LAB | | | | [address], | | | | | | [place] [address] | | | | + + + + + + | Creatinine | 0.89Comment: Testing | 0.50 - 1.00 | EXTERNAL | | | | performed at [facility], [address] | mg/dL | LAB | | | | [address], | | | | | | [place] [address] | | | | + + + + + + | Calcium | 8.5Comment: Testing | 8.5 - 10.2 | EXTERNAL | | | | performed at [facility], [address] | mg/dL | LAB | | | | [address], | | | | | | [place] [address] | | | | + + + + + + | Albumin | 3.1 (L)Comment: Testing | 3.3 - 4.8 g/dL | EXTERNAL | | | | performed at [facility], [address] | | LAB | | | | [address], | | | | | | [place] [address] | | | | + + + + + + | PHOSPHORUS | 2.9Comment: Testing | 2.3 - 4.8 mg/dL | EXTERNAL | | | | performed at [facility], [address] | | LAB | | | | [address], | | | | | | [place] [address] | | | | + + + [...] | | | | | [place] [address] | | | | + + + [...] | | | Fingerstick | performed at [facility];[address] | | LAB | | | | [address];[place] | | | | | | [address] | | | | + + + [...] | | | | | [place] [address] | | | | + + + [...] | | | Fingerstick | performed at [facility];[address] | | LAB | | | | [address];[place] | | | | | | [address] | | | | + + + [...] EXTERNAL | | | | performed at [facility];[address] | | LAB | | | [address];[place], [place] | | | | | | [address] | | | | + + + [...] | | | Fingerstick | performed at [facility];[address] | | LAB | | | | [address];[place] | | | | | | [address] | | | | + + + [...] | | | Fingerstick | performed at [facility];[address] | | LAB | | | | [address];[place] | | | | | | [address] | | | | + + + [...] EXTERNAL | | | | performed at [facility], [address] | | LAB | | | | [address], | | | | | | [place] [address] | | | | + + + + + + | RED CELL | 2.79 (L)Comment: Testing | 3.70 - 5.10 | EXTERNAL | | | COUNT | performed at [facility], [address] | M/uL | LAB | | | | [address], | | | | | | [place] [address] | | | | + + + + + + | Hgb | 8.9 (L)Comment: Testing | 11.3 - 15.5 | EXTERNAL | | | | performed at [facility], [address] | g/dL | LAB | | | | [address], | | | | | | [place] [address] | | | | + + + + + + | Hematocrit, | 27.0 (L)Comment: Testing | 34.0 - 46.0 % | EXTERNAL | | | POC | performed at [facility], [address] | | LAB | | | | [address], | | | | | | [place] [address] | | | | + + + + + + | MCV | 97.0Comment: Testing | 80.0 - 100.0 fl | EXTERNAL | | | | performed at [facility], [address] | | LAB | | | | [address], | | | | | | [place] [address] | | | | + + + + + + | MCH | 32.0Comment: Testing | 27.0 - 34.0 pg | EXTERNAL | | | | performed at [facility], [address] | | LAB | | | | [address], | | | | | | [place] [address] | | | | + + + + + + | MCHC | 32.9Comment: Testing | 32.0 - 35.5 | EXTERNAL | | | | performed at [facility], [address] | g/dL | LAB | | | | [address], | | | | | | [place] [address] | | | | + + + + + + | RDW-CV | 50.3Comment: Testing | 37 - 53 fl | EXTERNAL | | | | performed at [facility], [address] | | LAB | | | | [address], | | | | | | [place] [address] | | | | + + + + + + | Platelet | 363Comment: Testing | 150 - 400 K/uL | EXTERNAL | | | Count | performed at [facility], [address] | | LAB | | | Plasma | [address], | | | | | | [place] [address] | | | | + + + + + + | MPV | 7.3Comment: Testing | fl | EXTERNAL | | | | performed at [facility], [address] | | LAB | | | | [address], | | | | | | [place] [address] | | | | + + + + + + | Differentia | AUTOMATEDComment: | | EXTERNAL | | | l Type | Testing performed at | | LAB | | | | [facility], [address] | | | | | | [place] | | | | | | [address] | | | | + + + + + + | % Segmented | 66.8Comment: Testing | % | EXTERNAL | | | | performed at [facility], [address] | | LAB | | | Neutrophils | [address], | | | | | | [place] [address] | | | | + + + + + + | % | 20.2Comment: Testing | % | EXTERNAL | | | Lymphocytes | performed at [facility], [address] | | LAB | | | | [address], | | | | | | [place] [address] | | | | + + + + + + | % Monocytes | 7.8Comment: Testing | % | EXTERNAL | | | | performed at [facility], [address] | | LAB | | | | [address], | | | | | | [place] [address] | | | | + + + + + + | % | 4.4Comment: Testing | % | EXTERNAL | | | Eosinophils | performed at [facility], [address] | | LAB | | | [address], | | | | | | [place] [address] | | | | + + + + + + | % Basophils | 0.8Comment: Testing | % | EXTERNAL | | | | performed at [facility], [address] | | LAB | | | [address], | | | | | | [place] [address] | | | | + + + + + + | Absolute | 6.7Comment: Testing | 1.9 - 7.4 K/uL | EXTERNAL | | | Segmented | performed at [facility], [address] | | LAB | | | Neutrophils | [address], | | | | | | [place] [address] | | | | + + + + + + | Absolute | 2.0Comment: Testing | 1.0 - 3.9 K/uL | EXTERNAL | | | Lymphocytes | performed at [facility], [address] | | LAB | | | | [address], | | | | | | [place] [address] | | | | + + + + + + | Absolute | 0.8Comment: Testing | 0 - 0.8 K/uL | EXTERNAL | | | Monocytes | performed at [facility], [address] | | LAB | | | | [address], | | | | | | [place] [address] | | | | + + + + + + | Absolute | 0.4Comment: Testing | 0 - 0.5 K/uL | EXTERNAL | | | Eosinophils | performed at [facility], [address] | | LAB | | | | [address], | | | | | | [place] [address] | | | | + + + + + + | Absolute | 0.1Comment: Testing | 0 - 0.1 K/uL | EXTERNAL | | | Basophils | performed at [facility], [address] | | LAB | | | | [address], | | | | | | [place] [address] | | | | + + + [...] EXTERNAL | | | | performed at [facility], [address] | | LAB | | | | [address], | | | | | | [place] [address] | | | | + + + [...] EXTERNAL | | | | performed at [facility], [address] | | LAB | | | | [address], | | | | | | [place] [address] | | | | + + + [...] | | | | | [place] [address] | | | | + + + + + + | K | 3.3 (L)Comment: Testing | 3.5 - 4.9 | EXTERNAL | | | | performed at [facility], [address] | mmol/L | LAB | | | | [address], | | | | | | [place] [address] | | | | + + + + + + | Cl | 99Comment: Testing | 99 - 109 mmol/L | EXTERNAL | | | | performed at [facility], [address] | | LAB | | | | [address], | | | | | | [place] [address] | | | | + + + + + + | CO2 | 31Comment: Testing | 23 - 32 mmol/L | EXTERNAL | | | | performed at [facility], [address] | | LAB | | | | [address], | | | | | | [place] [address] | | | | + + + + + + | Anion Gap | 11Comment: Testing | 5 - 20 mmol/L | EXTERNAL | | | | performed at [facility], [address] | | LAB | | | | [address], | | | | | | [place] [address] | | | | + + + + + + | Glucose, | 112 (H)Comment: Testing | 65 - 99 mg/dL | EXTERNAL | | | Fasting | performed at [facility], [address] | | LAB | | | | [address], | | | | | | [place] [address] | | | | + + + + + + | BUN | 15Comment: Testing | 8 - 25 mg/dL | EXTERNAL | | | | performed at [facility], [address] | | LAB | | | | [address], | | | | | | [place] [address] | | | | + + + + + + | Creatinine | 1.19 (H)Comment: Testing | 0.50 - 1.00 | EXTERNAL | | | | performed at [facility], [address] | mg/dL | LAB | | | | [address], | | | | | | [place] [address] | | | | + + + + + + | BUN/Creatin | 13Comment: Testing | | EXTERNAL | | | ine Ratio | performed at [facility], [address] | | LAB | | | | [address], | | | | | | [place] [address] | | | | + + + + + + | Calcium | 8.2 (L)Comment: Testing | 8.5 - 10.2 | EXTERNAL | | | | performed at [facility], [address] | mg/dL | LAB | | | | [address], | | | | | | [place] [address] | | | | + + + [...] | | | | | | at [facility], [address] | | | | | | [address] [facility], | | | | | | [place] [address] | | | | + + + [...] | | | Fingerstick | performed at [facility];[address] | | LAB | | | | [address];[place], [place] | | | | | | [address] | | | | + + + [...] | | | Fingerstick | performed at [facility];[address] | | LAB | | | | [address];[place] | | | | | | [address] | | | | + + + [...] | | | Fingerstick | performed at [facility];[address] | | LAB | | | | [address];[place], [place] | | | | | | [address] | | | | + + + [...] | | | Fingerstick | performed at [facility];[address] | | LAB | | | | [address];[place], [place] | | | | | | [address] | | | | + + + [...] EXTERNAL | | | | performed at [facility], [address] | | LAB | | | | [address], | | | | | | [place] [address] | | | | + + + + + + | RED CELL | 2.78 (L)Comment: Testing | 3.70 - 5.10 | EXTERNAL | | | COUNT | performed at [facility], [address] | M/uL | LAB | | | | [address], | | | | | | [place] [address] | | | | + + + + + + | Hgb | 8.8 (L)Comment: Testing | 11.3 - 15.5 | EXTERNAL | | | | performed at [facility], [address] | g/dL | LAB | | | | [address], | | | | | | [place] [address] | | | | + + + + + + | Hematocrit, | 27.1 (L)Comment: Testing | 34.0 - 46.0 % | EXTERNAL | | | POC | performed at [facility], [address] | | LAB | | | | [address], | | | | | | [place] [address] | | | | + + + + + + | MCV | 97.6Comment: Testing | 80.0 - 100.0 fl | EXTERNAL | | | | performed at [facility], [address] | | LAB | | | | [address], | | | | | | [place] [address] | | | | + + + + + + | MCH | 31.6Comment: Testing | 27.0 - 34.0 pg | EXTERNAL | | | | performed at [facility], [address] | | LAB | | | | [address], | | | | | | [place] [address] | | | | + + + + + + | MCHC | 32.4Comment: Testing | 32.0 - 35.5 | EXTERNAL | | | | performed at [facility], [address] | g/dL | LAB | | | | [address], | | | | | | [place] [address] | | | | + + + + + + | RDW-CV | 49.0Comment: Testing | 37 - 53 fl | EXTERNAL | | | | performed at [facility], [address] | | LAB | | | | [address], | | | | | | [place] [address] | | | | + + + + + + | Platelet | 352Comment: Testing | 150 - 400 K/uL | EXTERNAL | | | Count | performed at [facility], [address] | | LAB | | | Plasma | [address], | | | | | | [place] [address] | | | | + + + + + + | MPV | 7.3Comment: Testing | fl | EXTERNAL | | | | performed at [facility], [address] | | LAB | | | | [address], | | | | | | [place] [address] | | | | + + + + + + | Differentia | AUTOMATEDComment: | | EXTERNAL | | | l Type | Testing performed at | | LAB | | | | [facility], [address] | | | | | | [place] | | | | | | [address] | | | | + + + + + + | % Segmented | 67.3Comment: Testing | % | EXTERNAL | | | | performed at [facility], [address] | | LAB | | | Neutrophils | [address], | | | | | | [place] [address] | | | | + + + + + + | % | 18.4Comment: Testing | % | EXTERNAL | | | Lymphocytes | performed at [facility], [address] | | LAB | | | [address], | | | | | | [place] [address] | | | | + + + + + + | % Monocytes | 9.7Comment: Testing | % | EXTERNAL | | | | performed at [facility], [address] | | LAB | | | | [address], | | | | | | [place] [address] | | | | + + + + + + | % | 3.9Comment: Testing | % | EXTERNAL | | | Eosinophils | performed at [facility], [address] | | LAB | | | | [address], | | | | | | [place] [address] | | | | + + + + + + | % Basophils | 0.7Comment: Testing | % | EXTERNAL | | | | performed at [facility], [address] | | LAB | | | | [address], | | | | | | [place] [address] | | | | + + + + + + | Absolute | 7.5 (H)Comment: Testing | 1.9 - 7.4 K/uL | EXTERNAL | | | Segmented | performed at [facility], [address] | | LAB | | | Neutrophils | [address], | | | | | | [place] [address] | | | | + + + + + + | Absolute | 2.0Comment: Testing | 1.0 - 3.9 K/uL | EXTERNAL | | | Lymphocytes | performed at [facility], [address] | | LAB | | | | [address], | | | | | | [place] [address] | | | | + + + + + + | Absolute | 1.1 (H)Comment: Testing | 0 - 0.8 K/uL | EXTERNAL | | | Monocytes | performed at [facility], [address] | | LAB | | | | [address], | | | | | | [place] [address] | | | | + + + + + + | Absolute | 0.4Comment: Testing | 0 - 0.5 K/uL | EXTERNAL | | | Eosinophils | performed at [facility], [address] | | LAB | | | | [address], | | | | | | [place] [address] | | | | + + + + + + | Absolute | 0.1Comment: Testing | 0 - 0.1 K/uL | EXTERNAL | | | Basophils | performed at [facility], [address] | | LAB | | | | [address], | | | | | | [place] [address] | | | | + + + [...] | | | | | [place] [address] | | | | + + + [...] | | | (REF) | performed at [facility], [address] | | LAB | | | | [address], | | | | | | [place] [address] | | | | + + + [...] EXTERNAL | | | | performed at [facility], [address] | | LAB | | | | [address], | | | | | | [place] [address] | | | | + + + [...] | | LAB | | | | [facility];[address] [facility] | | | | | | [address]vd;[place] [address] | | | | + + + [...] | | | | | [place] [address] | | | | + + + [...] | | | Direct | performed at [facility], [address] | | LAB | | | | [address], | | | | | | [place] [address] | | | | + + + [...] | | | | | [place] [address] | | | | + + + + + + | K | 3.5Comment: Testing | 3.5 - 4.9 | EXTERNAL | | | | performed at [facility], [address] | mmol/L | LAB | | | | [address], | | | | | | [place] [address] | | | | + + + + + + | Cl | 101Comment: Testing | 99 - 109 mmol/L | EXTERNAL | | | | performed at [facility], [address] | | LAB | | | [address], | | | | | | [place] [address] | | | | + + + + + + | CO2 | 29Comment: Testing | 23 - 32 mmol/L | EXTERNAL | | | | performed at [facility], [address] | | LAB | | | | [address], | | | | | | [place] [address] | | | | + + + + + + | Anion Gap | 10Comment: Testing | 5 - 20 mmol/L | EXTERNAL | | | | performed at [facility], [address] | | LAB | | | | [address], | | | | | | [place] [address] | | | | + + + + + + | Glucose, | 121 (H)Comment: Testing | 65 - 99 mg/dL | EXTERNAL | | | Fasting | performed at [facility], [address] | | LAB | | | | [address], | | | | | | [place] [address] | | | | + + + + + + | BUN | 20Comment: Testing | 8 - 25 mg/dL | EXTERNAL | | | | performed at [facility], [address] | | LAB | | | | [address], | | | | | | [place] [address] | | | | + + + + + + | Creatinine | 0.98Comment: Testing | 0.50 - 1.00 | EXTERNAL | | | | performed at [facility], [address] | mg/dL | LAB | | | | [address], | | | | | | [place] [address] | | | | + + + + + + | BUN/Creatin | 20Comment: Testing | | EXTERNAL | | | ine Ratio | performed at [facility], [address] | | LAB | | | | [address], | | | | | | [place] [address] | | | | + + + + + + | Calcium | 8.3 (L)Comment: Testing | 8.5 - 10.2 | EXTERNAL | | | | performed at [facility], [address] | mg/dL | LAB | | | | [address], | | | | | | [place] [address] | | | | + + + + + + | Protein, | 5.4 (L)Comment: Testing | 6.3 - 8.2 g/dL | EXTERNAL | | | Total | performed at [facility], [address] | | LAB | | | | [address], | | | | | | [place] [address] | | | | + + + + + + | Albumin | 2.9 (L)Comment: Testing | 3.3 - 4.8 g/dL | EXTERNAL | | | | performed at [facility], [address] | | LAB | | | | [address], | | | | | | [place] [address] | | | | + + + + + + | Globulin | 2.5Comment: Testing | 1.3 - 4.9 g/dL | EXTERNAL | | | | performed at [facility], [address] | | LAB | | | | [address], | | | | | | [place] [address] | | | | + + + + + + | A/G Ratio | 1.2Comment: Testing | 1.0 - 2.4 | EXTERNAL | | | | performed at [facility], [address] | | LAB | | | | [address], | | | | | | [place] [address] | | | | + + + + + + | Bilirubin | 0.4Comment: Testing | 0.1 - 1.5 mg/dL | EXTERNAL | | | Total | performed at [facility], [address] | | LAB | | | | [address], | | | | | | [place] [address] | | | | + + + + + + | ALP, | 55Comment: Testing | 35 - 115 U/L | EXTERNAL | | | External | performed at [facility], [address] | | LAB | | | | [address], | | | | | | [place] [address] | | | | + + + + + + | AST | 25Comment: Testing | 10 - 45 U/L | EXTERNAL | | | | performed at [facility], [address] | | LAB | | | | [address], | | | | | | [place] [address] | | | | + + + + + + | ALT | 14Comment: Testing | 10 - 65 U/L | EXTERNAL | | | | performed at [facility], [address] | | LAB | | | | [address], | | | | | | [place] [address] | | | | + + + [...] [address], | | | | | | [place] [address] | | | | + + + [...] | | | Fingerstick | performed at [facility] | | LAB | | | | [address];[place], [place] | | | | | | [address] | | | | + + + [...] | | | Fingerstick | performed at [facility];[address] | | LAB | | | | [address];[place] | | | | | | [address] | | | | + + + [...] | | | Fingerstick | performed at [facility];[address] | | LAB | | | | [address];[place] | | | | | | [address] | | | | + + + [...] | | | Fingerstick | performed at [facility];[address] | | LAB | | | | [address];[place], [place] | | | | | | [address] | | | | + + + [...] EXTERNAL | | | | performed at [facility];[address] | | LAB | | | | [address];[place] | | | | | | [address] | | | | + + + + + + | RED CELL | 2.64 (L)Comment: Testing | 3.70 - 5.10 | EXTERNAL | | | COUNT | performed at [facility];[address] | M/uL | LAB | | | | [address];[place] | | | | | | [address] | | | | + + + + + + | Hgb | 8.4 (L)Comment: Testing | 11.3 - 15.5 | EXTERNAL | | | | performed at [facility];[address] | g/dL | LAB | | | | [address];[place] | | | | | | [address] | | | | + + + + + + | Hematocrit, | 25.2 (L)Comment: Testing | 34.0 - 46.0 % | EXTERNAL | | | POC | performed at [facility];[address] | | LAB | | | | [address];[place] | | | | | | [address] | | | | + + + + + + | MCV | 95.2Comment: Testing | 80.0 - 100.0 fl | EXTERNAL | | | | performed at [facility];[address] | | LAB | | | | [address];[place] | | | | | | [address] | | | | + + + + + + | MCH | 31.9Comment: Testing | 27.0 - 34.0 pg | EXTERNAL | | | | performed at [facility];[address] | | LAB | | | | [address];[place] | | | | | | [address] | | | | + + + + + + | MCHC | 33.6Comment: Testing | 32.0 - 35.5 | EXTERNAL | | | | performed at [facility];[address] | g/dL | LAB | | | | [address];[place] | | | | | | [address] | | | | + + + + + + | RDW-CV | 50.3Comment: Testing | 37 - 53 fl | EXTERNAL | | | | performed at [facility];[address] | | LAB | | | | [address];[place] | | | | | | [address] | | | | + + + + + + | Platelet | 341Comment: Testing | 150 - 400 K/uL | EXTERNAL | | | Count | performed at [facility];[address] | | LAB | | | Plasma | [address];[place] | | | | | | [address] | | | | + + + + + + | MPV | 7.2Comment: Testing | fl | EXTERNAL | | | | performed at [facility];[address] | | LAB | | | | [address];[place] | | | | | | [address] | | | | + + + + + + | Differentia | AUTOMATEDComment: | | EXTERNAL | | | l Type | Testing performed at | | LAB | | | | [facility];[address] | [address];[place] [address] | | | | + + + + + + | % Segmented | 69.2Comment: Testing | % | EXTERNAL | | | | performed at [facility];[address] | | LAB | | | Neutrophils | [address];[place] | | | | | | [address] | | | | + + + + + + | % | 17.5Comment: Testing | % | EXTERNAL | | | Lymphocytes | performed at [facility];[address] | | LAB | | | | [address];[place] | | | | | | [address] | | | | + + + + + + | % Monocytes | 10.1Comment: Testing | % | EXTERNAL | | | | performed at [facility];[address] | | LAB | | | | [address];[place] | | | | | | [address] | | | | + + + + + + | % | 2.3Comment: Testing | % | EXTERNAL | | | Eosinophils | performed at [facility];[address] | | LAB | | | | [address];[place] | | | | | | [address] | | | | + + + + + + | % Basophils | 0.9Comment: Testing | % | EXTERNAL | | | | performed at [facility];[address] | | LAB | | | | [address];[place] | | | | | | [address] | | | | + + + + + + | Absolute | 7.8 (H)Comment: Testing | 1.9 - 7.4 K/uL | EXTERNAL | | | Segmented | performed at [facility];[address] | | LAB | | | Neutrophils | [address];[place] | | | | | | [address] | | | | + + + + + + | Absolute | 2.0Comment: Testing | 1.0 - 3.9 K/uL | EXTERNAL | | | Lymphocytes | performed at [facility];[address] | | LAB | | | | [address];[place] | | | | | | [address] | | | | + + + + + + | Absolute | 1.1 (H)Comment: Testing | 0 - 0.8 K/uL | EXTERNAL | | | Monocytes | performed at [facility];[address] | | LAB | | | | [address];[place] | | | | | | [address] | | | | + + + + + + | Absolute | 0.3Comment: Testing | 0 - 0.5 K/uL | EXTERNAL | | | Eosinophils | performed at [facility];[address] | | LAB | | | | [address];[place] | | | | | | [address] | | | | + + + + + + | Absolute | 0.1Comment: Testing | 0 - 0.1 K/uL | EXTERNAL | | | Basophils | performed at [facility];[address] | | LAB | | | | [address];[place] | | | | | | [address] | | | | + + + [...] EXTERNAL | | | | performed at [facility], [address] | | LAB | | | | [address], | | | | | | [place] [address] | | | | + + + [...] | | LAB | | | | [facility];[address] | [address];[place] [address] | | | | + + + [...] EXTERNAL | | | | performed at [facility], [address] | | LAB | | | | [address], | | | | | | [place] [address] | | | | + + + [...] | | | | | [place] [address] | | | | + + + + + + | K | 3.6Comment: Testing | 3.5 - 4.9 | EXTERNAL | | | | performed at [facility], [address] | mmol/L | LAB | | | | [address], | | | | | | [place] [address] | | | | + + + + + + | Cl | 102Comment: Testing | 99 - 109 mmol/L | EXTERNAL | | | | performed at [facility], [address] | | LAB | | | | [address], | | | | | | [place] [address] | | | | + + + + + + | CO2 | 27Comment: Testing | 23 - 32 mmol/L | EXTERNAL | | | | performed at [facility], [address] | | LAB | | | | [address], | | | | | | [place] [address] | | | | + + + + + + | Anion Gap | 10Comment: Testing | 5 - 20 mmol/L | EXTERNAL | | | | performed at [facility], [address] | | LAB | | | | [address], | | | | | | [place] [address] | | | | + + + + + + | Glucose, | 106 (H)Comment: Testing | 65 - 99 mg/dL | EXTERNAL | | | Fasting | performed at [facility], [address] | | LAB | | | | [address], | | | | | | [place] [address] | | | | + + + + + + | BUN | 22Comment: Testing | 8 - 25 mg/dL | EXTERNAL | | | | performed at [facility], [address] | | LAB | | | | [address], | | | | | | [place] [address] | | | | + + + + + + | Creatinine | 1.26 (H)Comment: Testing | 0.50 - 1.00 | EXTERNAL | | | | performed at [facility], [address] | mg/dL | LAB | | | | [address], | | | | | | [place] [address] | | | | + + + + + + | BUN/Creatin | 17Comment: Testing | | EXTERNAL | | | ine Ratio | performed at [facility], [address] | | LAB | | | | [address], | | | | | | [place] [address] | | | | + + + + + + | Calcium | 8.0 (L)Comment: Testing | 8.5 - 10.2 | EXTERNAL | | | | performed at [facility], [address] | mg/dL | LAB | | | | [address], | | | | | | [place] [address] | | | | + + + + + + | Protein, | 5.4 (L)Comment: Testing | 6.3 - 8.2 g/dL | EXTERNAL | | | Total | performed at [facility], [address] | | LAB | | | | [address], | | | | | | [place] [address] | | | | + + + + + + | Albumin | 3.0 (L)Comment: Testing | 3.3 - 4.8 g/dL | EXTERNAL | | | | performed at [facility], [address] | | LAB | | | | [address], | | | | | | [place] [address] | | | | + + + + + + | Globulin | 2.4Comment: Testing | 1.3 - 4.9 g/dL | EXTERNAL | | | | performed at [facility], [address] | | LAB | | | | [address], | | | | | | [place] [address] | | | | + + + + + + | A/G Ratio | 1.3Comment: Testing | 1.0 - 2.4 | EXTERNAL | | | | performed at [facility], [address] | | LAB | | | | [address], | | | | | | [place] [address] | | | | + + + + + + | Bilirubin | 0.5Comment: Testing | 0.1 - 1.5 mg/dL | EXTERNAL | | | Total | performed at [facility], [address] | | LAB | | | | [address], | | | | | | [place] [address] | | | | + + + + + + | ALP, | 53Comment: Testing | 35 - 115 U/L | EXTERNAL | | | External | performed at [facility], [address] | | LAB | | | | [address], | | | | | | [place] [address] | | | | + + + + + + | AST | 30Comment: Testing | 10 - 45 U/L | EXTERNAL | | | | performed at [facility], [address] | | LAB | | | | [address], | | | | | | [place] [address] | | | | + + + + + + | ALT | 14Comment: Testing | 10 - 65 U/L | EXTERNAL | | | | performed at [facility], [address] | | LAB | | | | [address], | | | | | | [place] [address] | | | | + + + [...] [address], | | | | | | [place] [address] | | | | + + + [...] | | | Fingerstick | performed at [facility] | | LAB | | | | [address];[place], [place] | | | | | | [address] | | | | + + + [...] | | | Fingerstick | performed at [facility];[address] | | LAB | | | | [address];[place] | | | | | | [address] | | | | + + + [...] EXTERNAL | | | | performed at [facility];[address] | | LAB | | | | [address];[place] | | | | | | [address] | | | | + + + + + -+ | RED CELL | 2.82 (L)Comment: Testing | 3.70 - 5.10 | EXTERNAL | | | COUNT | performed at [facility];[address] | M/uL | LAB | | | | [address];[place] | | | | | | [address] | | | | + + + + + -+ | Hgb | 9.0 (L)Comment: Testing | 11.3 - 15.5 | EXTERNAL | | | | performed at [facility];[address] | g/dL | LAB | | | | [address];[place] | | | | | | [address] | | | | + + + + + -+ | Hematocrit, | 27.0 (L)Comment: Testing | 34.0 - 46.0 % | EXTERNAL | | | POC | performed at [facility];[address] | | LAB | | | | [address];[place] | | | | | | [address] | | | | + + + + + -+ | MCV | 95.5Comment: Testing | 80.0 - 100.0 fl | EXTERNAL | | | | performed at [facility];[address] | | LAB | | | | [address];[place] | | | | | | [address] | | | | + + + + + -+ | MCH | 32.0Comment: Testing | 27.0 - 34.0 pg | EXTERNAL | | | | performed at [facility];[address] | | LAB | | | | [address];[place] | | | | | | [address] | | | | + + + + + -+ | MCHC | 33.5Comment: Testing | 32.0 - 35.5 | EXTERNAL | | | | performed at [facility];[address] | g/dL | LAB | | | | [address];[place] | | | | | | [address] | | | | + + + + + -+ | RDW-CV | 48.1Comment: Testing | 37 - 53 fl | EXTERNAL | | | | performed at [facility];[address] | | LAB | | | | [address];[place] | | | | | | [address] | | | | + + + + + -+ | Platelet | 397Comment: Testing | 150 - 400 K/uL | EXTERNAL | | | Count | performed at [facility];[address] | | LAB | | | Plasma | [address];[place] | | | | | | [address] | | | | + + + + + -+ | MPV | 7.1Comment: Testing | fl | EXTERNAL | | | | performed at [facility];[address] | | LAB | | | | [address];[place] | | | | | | [address] | | | | + + + + + -+ | Differentia | AUTOMATEDComment: | | EXTERNAL | | | l Type | Testing performed at | | LAB | | | | [facility];[address];[place] [address] | | | | + + + + + -+ | % Segmented | 70.3Comment: Testing | % | EXTERNAL | | | | performed at [facility];[address] | | LAB | | | Neutrophils | [address];[place] | | | | | | [address] | | | | + + + + + -+ | % | 18.7Comment: Testing | % | EXTERNAL | | | Lymphocytes | performed at [facility];[address] | | LAB | | | | [address];[place] | | | | | | [address] | | | | + + + + + -+ | % Monocytes | 9.7Comment: Testing | % | EXTERNAL | | | | performed at [facility];[address] | | LAB | | | | [address];[place] | | | | | | [address] | | | | + + + + + -+ | % | 1.0Comment: Testing | % | EXTERNAL | | | Eosinophils | performed at [facility];[address] | | LAB | | | | [address];[place] | | | | | | [address] | | | | + + + + + -+ | % Basophils | 0.3Comment: Testing | % | EXTERNAL | | | | performed at [facility];[address] | | LAB | | | | [address];[place] | | | | | | [address] | | | | + + + + + -+ | Absolute | 10.0 (H)Comment: Testing | 1.9 - 7.4 K/uL | EXTERNAL | | | Segmented | performed at [facility];[address] | | LAB | | | Neutrophils | [address];[place] | | | | | | [address] | | | | + + + + + -+ | Absolute | 2.7Comment: Testing | 1.0 - 3.9 K/uL | EXTERNAL | | | Lymphocytes | performed at [facility];[address] | | LAB | | | | [address];[place] | | | | | | [address] | | | | + + + + + -+ | Absolute | 1.4 (H)Comment: Testing | 0 - 0.8 K/uL | EXTERNAL | | | Monocytes | performed at [facility];[address] | | LAB | | | | [address];[place] | | | | | | [address] | | | | + + + + + -+ | Absolute | 0.1Comment: Testing | 0 - 0.5 K/uL | EXTERNAL | | | Eosinophils | performed at [facility];[address] | | LAB | | | | [address];[place] | | | | | | [address] | | | | + + + + + -+ | Absolute | 0.0Comment: Testing | 0 - 0.1 K/uL | EXTERNAL | | | Basophils | performed at [facility];[address] | | LAB | | | | [address];[place] | | | | | | [address] | | | | + + + + + -+ | Na | 139Comment: Testing | 135 - 143 | EXTERNAL | | | | performed at [facility];[address] | mmol/L | LAB | | | | [address];[place] | | | | | | [address] | | | | + + + + + -+ | K | 4.1Comment: Testing | 3.5 - 4.9 | EXTERNAL | | | | performed at [facility];[address] | mmol/L | LAB | | | | [address];[place] | | | | | | [address] | | | | + + + + + -+ | Cl | 103Comment: Testing | 99 - 109 mmol/L | EXTERNAL | | | | performed at [facility];[address] | | LAB | | | | [address];[place] | | | | | | [address] | | | | + + + + + -+ | CO2 | 24Comment: Testing | 23 - 32 mmol/L | EXTERNAL | | | | performed at [facility];[address] | | LAB | | | | [address];[place] | | | | | | [address] | | | | + + + + + -+ | Anion Gap | 16Comment: Testing | 5 - 20 mmol/L | EXTERNAL | | | | performed at [facility];[address] | | LAB | | | | [address];[place] | | | | | | [address] | | | | + + + + + -+ | Glucose, | 119 (H)Comment: Testing | 65 - 99 mg/dL | EXTERNAL | | | Fasting | performed at [facility];[address] | | LAB | | | | [address];[place] | | | | | | [address] | | | | + + + + + -+ | BUN | 22Comment: Testing | 8 - 25 mg/dL | EXTERNAL | | | | performed at [facility];[address] | | LAB | | | | [address];[place] | | | | | | [address] | | | | + + + + + -+ | Creatinine | 1.22 (H)Comment: Testing | 0.50 - 1.00 | EXTERNAL | | | | performed at [facility];[address] | mg/dL | LAB | | | | [address];[place] | | | | | | [address] | | | | + + + + + -+ | BUN/Creatin | 18Comment: Testing | | EXTERNAL | | | ine Ratio | performed at [facility];[address] | | LAB | | | | [address];[place] | | | | | | [address] | | | | + + + + + -+ | Calcium | 8.1 (L)Comment: Testing | 8.5 - 10.2 | EXTERNAL | | | | performed at [facility];888 | mg/dL | LAB | | | | [address];[place] | | | | | | [address] | | | | + + + + + -+ | Protein, | 6.0 (L)Comment: Testing | 6.3 - 8.2 g/dL | EXTERNAL | | | Total | performed at [facility];[address] | | LAB | | | | [address];[place] | | | | | | [address] | | | | + + + + + -+ | Albumin | 2.7 (L)Comment: Testing | 3.3 - 4.8 g/dL | EXTERNAL | | | | performed at [facility];[address] | | LAB | | | | [address];[place] | | | | | | [address] | | | | + + + + + -+ | Globulin | 3.3Comment: Testing | 1.3 - 4.9 g/dL | EXTERNAL | | | | performed at [facility];[address] | | LAB | | | | [address];[place] | | | | | | [address] | | | | + + + + + -+ | A/G Ratio | 0.8 (L)Comment: Testing | 1.0 - 2.4 | EXTERNAL | | | | performed at [facility];[address] | | LAB | | | | [address];[place] | | | | | | [address] | | | | + + + + + -+ | Bilirubin | 0.5Comment: Testing | 0.1 - 1.5 mg/dL | EXTERNAL | | | Total | performed at [facility];[address] | | LAB | | | | [address];[place] | | | | | | [address] | | | | + + + + + -+ | ALP, | 68Comment: Testing | 35 - 115 U/L | EXTERNAL | | | External | performed at [facility];[address] | | LAB | | | | [address];[place] | | | | | | [address] | | | | + + + + + -+ | AST | 37Comment: Testing | 10 - 45 U/L | EXTERNAL | | | | performed at [facility];[address] | | LAB | | | | [address];[place] | | | | | | [address] | | | | + + + + + -+ | ALT | 20Comment: Testing | 10 - 65 U/L | EXTERNAL | | | | performed at [facility];[address] | | LAB | | | | [address];[place] | | | | | | [address] | | | | + + + [...] | | | | | | at [facility];[address];[place] [address] | | | | + + + + + -+ | CK, Total | 65Comment: Testing | 30 - 240 U/L | EXTERNAL | | | | performed at [facility];[address] | | LAB | | | | [address];[place] | | | | | | [address] | | | | + + + [...] | | | | | performed at [facility];[address] | | | | | | [address];[place] | | | | | | [address] | | | | + + + + + -+ | aPTT, | 25Comment: Testing | 23 - 32 seconds | EXTERNAL | | | Patient | performed at [facility];[address] | | LAB | | | | [address];[place] | | | | | | [address] | | | | + + + + + -+ | CK-MB | 3.0Comment: Testing | 0.5 - 3.6 ng/mL | EXTERNAL | | | | performed at [facility];[address] | | LAB | | | | [address];[place], [place] | | | | | | [address] | | | | + + + [...] | | LAB | | | | [facility];[address];[place] [address] | | | | + + + [...] of unspecified type of vessel, | | [place] or graft | + + documented in this encounter
--- OUTSIDE RECORDS SUMMARY | ~2019-03-06 | XMS | Encounter Summary ---
Demographics + + + | Address | [address] | | | [place] [address] | + + + | Home Phone [...] [place], [place] | | | | | [address] | | + + + + + | Rivka Palma | ECON | Unknown | | + + + + + | Geno Kendall | ECON | Unknown | | + + + + + Care Team Providers + +------+ + | Care Commodity Buyer Name | Role | Phone | + +------+ + | Lorenzo Valdes MD | PCP | | + +------+ + Encounter Details +--------+ + + + + | Date | Type | Department | Care Team | Description | +--------+ + + + + | 07/22/ | Orders Only | [facility] | Conversion | | | 2015 | | CARDIOLOGY [facility] | Transaction, | | | | | [address] | Provider Unknown | | | | | [place], [place] | [phone] | | | | | [address] | | | | | | [phone] | | | +--------+ + + + [...] [place] | | | | | | [address] | | | | | | | [...] [place] | | | | | | [address] | | | | | | | [...] - 1.030 | EXTERNAL | | | [place] | | | LAB | | + [...]
--- OUTSIDE RECORDS SUMMARY | ~2019-03-06 | XMS | Encounter Summary ---
Demographics + + + | Address | [address] | | | [place] [address] | + + + | Home Phone [...] + + + | Author | [facility] | | | and [place] | + + + | Organization | [facility] | | [...] [place], [place] | | | | | [address] | | + + + + + | Rivka Palma | ECON | Unknown | | + + + + + | Geno Kendall | ECON | Unknown | | + + + + + Care Team Providers + +------+ + | Care House Worker Name | Role | Phone | [...] + | 06/26/ | Refill | [facility] | Brandon Terry | Medication Refill | | 2014 | | PULMONARY [address] | [place] [address] [address] | | | | | [place], | [place], [place] | | | | | [place] [address] | [address] | | | | | [phone] | | | +--------+--------+ + + + [...] [place] | | | | | | [address] | | | | | | | [...] [place] | | | | | | [address] | | | | | | | | +--------+ + + + + documented as of this encounter Visit Diagnoses Not on filedocumented in this encounter"
[~2019-03-06 07:43] MED LIST changes: +ACETAMINOPHEN500 MG PO; +BENADRYL ITCH28.3 G1 TOP; +BENZONATATE200 MG PO; +BISACODYL10 MG PR; +CO Q-10100 MG PO; +COUGH SYRU100 MG/5 M PO; +DOK100 MG PO; +DOXYCYCLINE HY100 MG PO; +FAMOTIDINE20 MG PO; +GUAIFEN-CODEINE10 ML PO; +HUMALOG100 UNITS/ SUB-Q; +IBU400 MG PO; +LIDODERM1 EACH TOP; +LORATADINE10 MG PO; +LOVENOX40 MG/0.4 SUB-Q; +MELATONIN1 MG PO; +MILK OF MA400 MG/5 M PO; +MIRALAX17 GM PO; +SENNA8.6 MG PO; +SPIRIVA18 MCG INH; +TUMS200 MG PO; +VENTOLIN HFA18 GM INH
--- OUTSIDE RECORDS SUMMARY | 2019-03-06 07:46 | XMS ---
PreManage Notification: LENNIE CROCKETT Security Gold Miner Events No recent Security Events currently on file CRITERIA MET - Group Notification - [facility] PROVIDERS Carmen Schultz Family [facility] 11/02/2017-Current PHONE: [phone] Max Schultz Internal Medicine: Pulmonary Disease 10/19/2017-Current PHONE: Unknown Lorenzo Valdes MD Primary Care Current PHONE: Unknown orpatricia Case or Senior Java Programmer Analyst Current PHONE: Unknown Sarah VALDES Current PHONE: Unknown Jesus has no Care Guidelines for this patient. Care History Medical/Surgical 10/19/2017 [facility] - Patient is currently established with [facility]. If patient is seen in the ED during business hours. Please contact CHWs at [facility] at Ext [phone]. Care Recommendation: This patient has had 5 or more Emergency Department visits in the last 12 months.\T\nbsp; Patient requires education on the scope and purpose of the ED as an acute care provider not a Primary Care Provider and should not be utilized for chronic conditions.\T\nbsp; If patient returns to ED please contact Community Health WorkerLashawn at [phone]. These are guidelines and the provider should exercise clinical judgment when providing care. E.D. VISIT COUNT (12 MO.) 1 [facility]. TOTAL 1 NOTE: Visits indicate total known visits. ED/UCC VISIT TRACKING (12 MO.) 03/06/2019 07:44 [facility] [place] TYPE: Emergency COMPLAINT: - CHEST PAIN INPATIENT VISIT TRACKING (12 MO.) No inpatient visits to display in this time frame [email or web address]
--- NOTE | 2019-03-07 07:42 | EKG ---
[facility] [address] [facility] [place] [address] Signed AV dual-paced rhythm with frequent premature ventricular complexes Abnormal ECG Confirmed by NORBERTO TILLMAN MD ([id number]) on 03/07/2019 7:42:17 AM Electronically Signed By: NORBERTO TILLMAN MD 03/07/19 0742 PATIENT NAME: LENNIE CROCKETT Electrocardiogram DATE OF : 32 PHYSICIAN: NORBERTO TILLMAN MD REPORT #: [id number] REPORT IS CONFIDENTIAL AND NOT TO BE RELEASED WITHOUT AUTHORIZATION
== END 2019-03-06 14:02 | disposition short-term general hospital (02) ==
LOC: ED 07:43
DX: I21.4 Non-ST elevation (NSTEMI) myocardial infarction (principal); E87.6 Hypokalemia; I13.0 Hypertensive heart and chronic kidney disease with heart failure and stage 1 through stage 4 chronic kidney disease, or unspecified chronic kidney disease; I50.9 Heart failure, unspecified; N18.9 Chronic kidney disease, unspecified; J45.909 Unspecified asthma, uncomplicated; Z87.891 Personal history of nicotine dependence; Z88.5 Allergy status to narcotic agent; Z91.040 Latex allergy status; Z88.8 Allergy status to other drugs, medicaments and biological substances; Z91.048 Other nonmedicinal substance allergy status; Z79.899 Other long term (current) drug therapy; Z79.82 Long term (current) use of aspirin
CPT/HCPCS: 71045; 80053; 83735; 84484; 85025; 93005; 93010; 96372; 99291; 99292; J1650

== ENCOUNTER 2020-01-10 10:27 | Emergency (ER) | payer MEDICARE, OTHER ==
[~2020-01-10] VITALS: Ht 165.1 cm; Wt 61.9 kg
--- OUTSIDE RECORDS SUMMARY | 2020-01-10 10:30 | XMS ---
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 Care History Medical/Surgical 03/08/2019 [facility] Patient stated a stent was placed at [facility] and has a follow up appt. next week with utility worker film processing. Dr. Schultz advised to come in on any Thursday for follow up with PCP. 10/19/2017 [facility] - Patient is currently established with [facility]. If patient is seen in the ED during business hours. Please contact CHWs at [facility] at Ext [phone]. Care Recommendation: This patient has had 5 or more Emergency Department visits in the last 12 months.\T\nbsp; Patient requires education on the scope and purpose of the ED as an acute care provider not a Primary Care Provider and should not be utilized for chronic conditions.\T\nbsp; If patient returns to ED please contact Community Health Worker Lashawn at [phone]. These are guidelines and the provider should exercise clinical judgment when providing care. E.D. VISIT COUNT (12 MO.) 2 [facility] TOTAL 2 NOTE: Visits indicate total known visits. ED/C VISIT TRACKING (12 MO.) 01/10/2020 10:28 [facility] [place] TYPE: Emergency COMPLAINT: - POSS HEART ATTACK 03/06/2019 07:[address] [facility] [place] TYPE: Emergency COMPLAINT: - CHEST PAIN DIAGNOSES: - Allergy status to narcotic agent status - Chronic kidney disease, unspecified - Personal history of nicotine dependence - Hypokalemia - Hypertensive heart and chronic kidney disease with heart fail - Other termination clerk (current) drug therapy - termite exterminator (current) use of aspirin - Heart failure, unspecified - Other nonmedicinal substance allergy status - Other chest pain - Non-ST elevation (NSTEMI) myocardial infarction - Allergy status to other drugs, medicaments and biological sub - Latex allergy status - Unspecified asthma, uncomplicated INPATIENT VISIT TRACKING (12 MO.) No inpatient visits to display in this time frame [email or web address]
--- NOTE | 2020-01-10 14:16 | NUR ---
STAFF INFORMED ME OF CODE IN ED. RN BETH VELARDE REQUESTED I CONNECT WITH PT'S AND FAMILY IN WAITING RM. MET THEM, TOOK THEM TO QUIET RM AND UPDATED PT'S STATUS. TOOK BACK TO ED RM WHEN IMAGING WAS FINISHED WITH X-RAY. PT ALERT, RECOGNIZED ME AND SAID SHE WAS GLAD SHE CAME IN. FEELING MUCH BETTER. WAITING NOW ON LABS AND X-RAY RESULTS. UPDATED DAUGHTERS IN WAITING RM. WILL FOLLOW NEEDED
--- NOTE | 2020-01-10 15:46 | EKG ---
[facility] [address] [facility] [place] [address] Signed Wide QRS tachycardia with occasional premature ventricular complexes Left bundle branch block Abnormal ECG When compared with ECG of 06-MAR-2019 07:46, Wide QRS tachycardia has replaced Electronic ventricular pacemaker Vent. rate has increased BY 84 BPM Confirmed by EDER VALENZUELA DO ([id number]) on 01/10/2020 3:46:31 PM Electronically Signed By: EDER VALENZUELA DO 01/10/20 1546 PATIENT NAME: LENNIE CROCKETT Electrocardiogram DATE OF : [birth year] PHYSICIAN: EDER VALENZUELA DO REPORT #: [id number] REPORT IS CONFIDENTIAL AND NOT TO BE RELEASED WITHOUT AUTHORIZATION
--- NOTE | 2020-01-10 15:46 | EKG ---
[facility] [address] [facility] [place] [address] Signed Atrial-sensed ventricular-paced rhythm with frequent and consecutive premature ventricular complexes Abnormal ECG When compared with ECG of 10-JAN-2020 10:34, (Unconfirmed) Electronic ventricular pacemaker has replaced Atrial fibrillation Vent. rate has decreased BY 68 BPM Confirmed by EDER VALENZUELA DO ([id number]) on 01/10/2020 3:46:40 PM Electronically Signed By: EDER VALENZUELA DO 01/10/20 1546 PATIENT NAME: LENNIE CROCKETT Electrocardiogram DATE OF : [birth year] PHYSICIAN: EDER VALENZUELA DO REPORT #: [id number] REPORT IS CONFIDENTIAL AND NOT TO BE RELEASED WITHOUT AUTHORIZATION
== END 2020-01-10 13:18 | disposition home or self-care (01) ==
LOC: ED 10:27
DX: I47.1 Supraventricular tachycardia (principal); I10 Essential (primary) hypertension; E03.9 Hypothyroidism, unspecified; Z87.891 Personal history of nicotine dependence; Z88.5 Allergy status to narcotic agent; Z88.8 Allergy status to other drugs, medicaments and biological substances; Z91.040 Latex allergy status; Z79.899 Other long term (current) drug therapy; Z79.82 Long term (current) use of aspirin
CPT/HCPCS: 71045; 80053; 83735; 84484; 85025; 93005; 93010; 96374; 96375; 99285-25; J0153; J0282; J2704; J7040

== ENCOUNTER 2020-02-17 23:27 | Emergency (ER) | payer MEDICARE, OTHER ==
[~2020-02-17] VITALS: Ht 165.1 cm; Wt 61.9 kg
--- OUTSIDE RECORDS SUMMARY | 2020-02-17 23:30 | XMS ---
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 Care History Medical/Surgical 03/08/2019 [facility] Patient stated a stent was placed at [facility] and has a follow up appt. next week with cable tool operator. Dr. Schultz advised to come in on any Thursday for follow up with PCP. 10/19/2017 [facility] - Patient is currently established with [facility]. If patient is seen in the ED during business hours. Please contact CHWs at [facility] at Ext [phone]. Care Recommendation: This patient has had 5 or more Emergency Department visits in the last 12 months.\T\nbsp; Patient requires education on the scope and purpose of the ED as an acute care provider not a Primary Care Provider and should not be utilized for chronic conditions.\T\nbsp; If patient returns to ED please contact Community Health Worker Lashawn at [phone]. These are guidelines and the provider should exercise clinical judgment when providing care. E.D. VISIT COUNT (12 MO.) 3 RAIMUNDO Dominguez TOTAL 3 NOTE: Visits indicate total known visits. ED/C VISIT TRACKING (12 MO.) 02/17/2020 23:27 [facility] [place] TYPE: Emergency COMPLAINT: - CHEST PAIN 01/10/2020 10:28 [facility] [place] TYPE: Emergency COMPLAINT: - CHEST PAIN DIAGNOSES: - care home (current) use of aspirin - Personal history of nicotine dependence - Essential (primary) hypertension - Allergy status to narcotic agent - Allergy status to other drugs, medicaments and biological substances - Other chest pain - Supraventricular tachycardia - Hypothyroidism, unspecified - Latex allergy status - Other long-term (current) drug therapy 03/06/2019 07:44 [facility] [place] TYPE: Emergency COMPLAINT: - CHEST PAIN DIAGNOSES: - Allergy status to narcotic agent - Chronic kidney disease, unspecified - Personal history of nicotine dependence - Hypokalemia - Hypertensive heart and chronic kidney disease with heart failure and stage 1 through stage 4 chronic kidney disease, or unspecified chronic kidney disease - Other long-term (current) drug therapy - emblem cutter (current) use of aspirin - Heart failure, unspecified - Other nonmedicinal substance allergy status - Other chest pain - Non-ST elevation (NSTEMI) myocardial infarction - Allergy status to other drugs, medicaments and biological substances - Latex allergy status - Unspecified asthma, uncomplicated INPATIENT VISIT TRACKING (12 MO.) No inpatient visits to display in this time frame [id number]
[2020-02-17] MEDS ORDERED: ISOSORBIDE DINI10 MG PO (23:47)
[2020-02-17] MEDS ORDERED: METOPROLOL SUCC25 MG PO (23:48)
[2020-02-17] MEDS ORDERED: FLUTICASONE PRO16 GM NAS (23:50)
[2020-02-17] MEDS ORDERED: CLOPIDOGREL75 MG PO (23:51)
[2020-02-17] MEDS ORDERED: MAG-OXIDE200 MG PO (23:52)
[2020-02-17] MEDS ORDERED: METOLAZONE2.5 MG PO (23:53)
[2020-02-17] MEDS ORDERED: PREDNISONE5 MG PO (23:54)
[2020-02-17] MEDS ORDERED: ROSUVASTATIN CA20 MG PO (23:54)
--- NOTE | 2020-02-19 14:12 | EKG ---
[facility] [address] [place] [address] Signed Atrial-sensed ventricular-paced rhythm Abnormal ECG When compared with ECG of 10-JAN-2020 10:50, premature ventricular complexes are no longer present Vent. rate has decreased BY 11 BPM Confirmed by VIDA CALDWELL MD ([id number]) on 02/19/2020 2:12:10 PM Electronically Signed By: VIDA CALDWELL MD 02/19/20 1412 PATIENT NAME: LENNIE CROCKETT Electrocardiogram DATE OF : [birth year] PHYSICIAN: VIDA CALDWELL MD REPORT #: [id number] REPORT IS CONFIDENTIAL AND NOT TO BE RELEASED WITHOUT AUTHORIZATION
== END 2020-02-18 01:14 | disposition home or self-care (01) ==
LOC: ED 23:27
DX: R07.89 Other chest pain (principal); E87.6 Hypokalemia; I11.0 Hypertensive heart disease with heart failure; I50.9 Heart failure, unspecified; E03.9 Hypothyroidism, unspecified; J45.909 Unspecified asthma, uncomplicated; Z87.891 Personal history of nicotine dependence; Z88.8 Allergy status to other drugs, medicaments and biological substances; Z88.5 Allergy status to narcotic agent; Z91.040 Latex allergy status; Z79.899 Other long term (current) drug therapy; Z79.52 Long term (current) use of systemic steroids; Z79.82 Long term (current) use of aspirin
CPT/HCPCS: 71045; 80053; 83735; 83880; 84484; 85025; 85610; 85730; 93005; 93010; 99285-25

== ENCOUNTER 2020-05-20 20:55 | Inpatient (IN) | payer MEDICARE, OTHER ==
[~2020-05-20] VITALS: Ht 165.1 cm; Wt 63.6 kg
[~2020-05-20 20:55] MED LIST changes: +CALCIUM500 M1 PO; +CLOPIDOGREL75 MG PO; +ISOSORBIDE DINI10 MG PO; +LEVOXYL88 MCG PO; +MAG-OXIDE200 MG PO; +METOLAZONE2.5 MG PO; +METOPROLOL SUCC25 MG PO; +PREDNISONE5 MG PO; +ROSUVASTATIN CA20 MG PO; -TUMS200 MG PO
--- OUTSIDE RECORDS SUMMARY | 2020-05-20 20:58 | XMS ---
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 - Has Care Guidelines CARE PROVIDERS SIVA SCHULTZ [facility] 01/11/2020-Current PHONE: [phone] STANISLAW CHAHAL Internal Medicine: Pulmonary Disease 10/19/2017-Current PHONE: Unknown Jesus has no Care Guidelines for this patient. Care History Medical/Surgical 02/20/2020 [facility] Patient recently has new Rx for Tessalon Perles for allergies.\T\nbsp; No ED follow up scheduled for yet. 03/08/2019 [facility] Patient stated a stent was placed at [facility] and has a follow up appt. next week with care clinician. Dr. Schultz advised to come in on any Thursday for follow up with PCP. 10/19/2017 [facility] - Patient is currently established with [facility]. If patient is seen in the ED during business hours. Please contact CHWs at [facility] at Ext [phone]. Care Recommendation: This patient has had 5 or more Emergency Department visits in the last 12 months.\T\nbsp; Patient requires education on the scope and purpose of the ED as an acute care provider not a Primary Care Provider and should not be utilized for chronic conditions.\T\nbsp; If patient returns to ED please contact Community Health Worker Lashawn at [phone]. These are guidelines and the provider should exercise clinical judgment when providing care. E.D. VISIT COUNT (12 MO.) 3 RAIMUNDO Dominguez TOTAL 3 NOTE: Visits indicate total known visits. ED/UCC VISIT TRACKING (12 MO.) 05/20/2020 20:56 [facility] [place] TYPE: Emergency COMPLAINT: - LOW BLOOD PREASURE SOB 02/17/2020 23:27 [facility] [place] TYPE: Emergency COMPLAINT: - CHEST PAIN DIAGNOSES: - Hypothyroidism, unspecified - Personal history of nicotine dependence - Other skilled nursing (current) drug therapy - superintendent terminal (current) use of systemic steroids - Hypertensive heart disease with heart failure - Allergy status to other drugs, medicaments and biological substances - Hypokalemia - Allergy status to narcotic agent - Other chest pain - Heart failure, unspecified - FDC (current) use of aspirin - Unspecified asthma, uncomplicated - Latex allergy status 01/10/2020 10:28 [facility] [place] TYPE: Emergency COMPLAINT: - CHEST PAIN DIAGNOSES: - superintendent terminal (current) use of aspirin - Personal history of nicotine dependence - Essential (primary) hypertension - Allergy status to narcotic agent - Allergy status to other drugs, medicaments and biological substances - Other chest pain - Supraventricular tachycardia - Hypothyroidism, unspecified - Latex allergy status - Other superintendent terminal (current) drug therapy INPATIENT VISIT TRACKING (12 MO.) No inpatient visits to display in this time frame [id number]
[2020-05-20] MEDS ORDERED: POTASSIUM CHLO20 ME2 PO (21:15)
[2020-05-20] MEDS ORDERED: BREO ELLIPTA 21 EACH INH (21:29)
--- NOTE | 2020-05-21 01:19 | NUR ---
pt ARRIVES TO MS FLOOR VIA STRETCHER, SBA TO RESTROOM FOR VOID. STANDING WEIGHT OBTAINED. ORIENTATION TO ROOM PROVIDED, CALL LIGHT IN REACH. DENTURES IN CUP. GAIT STEADY WITH AMBULATION. pt C/O SOB. 2L OXYGEN BY NC IN PLACE. RR TACHYPNIC, 26 AFTER AMBULATION. pt RECOVERS, RESTING IN BED WITH UNLABORED BREATHING AFTER TWO MINUTES.
--- NOTE | 2020-05-21 01:25 | NUR ---
PT LYING IN BED. REPLACED ATTENDS. STATES THAT SHE LEAKS WHEN SHE COUGHS. PT DENIES CHEST PAIN AND SOB. SCHEDULED MEDS GIVEN. ASSESSMENT COMPLETE. CALL LIGHT IN REACH.
--- NOTE | 2020-05-21 02:42 | NUR ---
IV PUMP ALARMING, ABX COMPLETE. IV SITE WNL, FLUSHES EASILY. PUMP CLEARED. NO ADDITIONAL NEEDS VERBALIZED, CALL LIGHT IN REACH.
--- NOTE | 2020-05-21 06:41 | NUR ---
PT LYING IN BED. STANDBY ASSIST TO THE BATHROOM. TOLERATED WELL. O2 SAT 95% 2L NC. ASSESSMENT COMPLETE. I AND O'S DONE. PT DENIES SOB. CRACKLES NOTED ON BILATERAL LUNGS. REPOSITIONED PT IN BED. SCHEDULED MEDS GIVEN. VS STABLE. I AND O'S DONE. CALL LIGHT IN REACH.
--- NOTE | 2020-05-21 08:00 | NUR ---
REPORT RECEIVED FROM NIGHT RN AND PT. CARE RESUMED. PT. IS ALERT AND ORIENTED. CRACKLES THROUGHOUT LUNGS AND COARSE IN THE BASES. NO EDEMA NOTED. IV SITE WNL AND FLUSHED WELL. PT. AMBULATED WITH STANDBY ASSIST TO THE BATHROOM AND VOIDED. TOLERATED WELL. PT. LEFT RESTING IN CHAIR WITH CALL LIGHT IN REACH.
[2020-05-21] MEDS ORDERED: ROSUVASTATIN CA20 MG PO (08:42)
[2020-05-21] MEDS ORDERED: CLOPIDOGREL75 MG PO (08:44)
--- NOTE | 2020-05-21 11:00 | NUR ---
Pt lives in a 1 story house with a ramp. They recently moved in. Spouse recently fractured his hip and daughters have been staying and assisting pt and spouse. Pt has a cane, shower chair, and walker. She does not use her DME at this time. Pt plans on dc to home when cleared medically. Devin will cont. to assist.
[2020-05-21] MEDS ORDERED: ALBUTEROL2.5 MG/3 M INH (11:28)
[2020-05-21] MEDS ORDERED: INCRUSE ELLI62.5 MCG INH (11:41)
--- NOTE | 2020-05-21 13:36 | EKG ---
[facility] [address] [facility] [place] [address] Signed Ventricular-paced rhythm with occasional premature ventricular complexes Biventricular pacemaker detected Abnormal ECG When compared with ECG of 17-FEB-2020 23:34, premature ventricular complexes are now present Vent. rate has increased BY 45 BPM Confirmed by VIDA CALDWELL MD ([id number]) on 05/21/2020 1:36:03 PM Electronically Signed By: VIDA CALDWELL MD 05/21/20 1336 PATIENT NAME: LENNIE CROCKETT Electrocardiogram DATE OF : [birth year] PHYSICIAN: VIDA CALDWELL MD REPORT #: [id number] REPORT IS CONFIDENTIAL AND NOT TO BE RELEASED WITHOUT AUTHORIZATION
--- NOTE | 2020-05-21 14:09 | NUR ---
DAUGHTER LUANNE HAD CALLED AND LEFT MESSAGE FOR RETURN CALL FOR UPDATE, RETURN CALLED PLACED. DISCUSSED PT STATUS, PLAN OF CARE. DAUGHTER ASKED ABOUT VISITOR POLICY, REVIEWED.
--- NOTE | 2020-05-21 14:20 | NUR ---
PATIENT ADMINISTERED IVP BUMEX. PT. DENIES PAIN. EDEMA PRESENT IN ABDOMEN AND BLE. CRACKLES AUSCULTATED THROUGHOUT LUNGS. PT. STATED SHE BELIEVED SITTING UP IN BED MADE HER BREATHING EASIER. ASSISTED WITH REPOSITIONING. PT. ON 2L O2 NC. PT. REQUESTED A SNACK AND BROUGHT ROGELIO CRACKERS. PT. LEFT RESTING IN BED WITH CALL LIGHT IN REACH.
--- NOTE | 2020-05-21 15:15 | NUR ---
REVIEWED PATIENTS HOME BREATHING MEDICATIONS. SHE IS TAKING THEM SCHEDULED AND SEEMS TO HAVE A GOOD UNDERSTANDING OF WHAT THEY ARE FOR. SHE IS ALREADY USING A SPACER WHERE INDICATED AND DESCRIBES PROPER TECHNIQUE. SHE MENTIONED THAT HER BREATHING STARTED TO BE AN ISSUE FOR HER AFTER MOVING HOUSES TO WHERE SHE BELIEVES THERE MAY BE MORE ALLERGENS.
--- NOTE | 2020-05-21 15:48 | NUR ---
PATIENT IS DOING WELL. SAID THE PREDNISONE IS INCREASING HER APPETITE. SHE LIVES WITH HER WHO FELL AND BROKE HIS HIP AFTER V[place]. THEY HAVE 7 KIDS WHO LIVE IN TOWN AND HELP LENNIE AND HER . SHE HAS NOT GONE TO THE GROCERY STORE SINCE THE PANDEMIC STARTED. 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 LENNIE PREPARES HER OWN BREAKFAST AND LUNCH. I TALKED TO HER WHEN SHE WAS IN CARDIAC REHAB IN THE SPRING LAST YEAR, BUT ONLY ATTENDED 4 SESSIONS BEFORE SHE STOPPED DUE TO THE CARDIAC REHAB CLOSING DUE TO COVID. SHE WATCHES HER SODIUM INTAKE BY NOT EATING MANY PROCESSED FOODS AND EATING AT HOME. SHE DOES NOT HAVE ANY QUESTIONS OR CONCERNS ABOUT HER DIET AT THIS TIME. CONTINUE 2 GRAM SODIUM DIET WHILE HERE. WILL CONTINUE TO MONITOR.
--- NOTE | 2020-05-21 16:23 | NUR ---
PATIENT GIVEN MEDS. WHEEZES AUSCULTATED THROUGHOUT LUNGS AND CRACKLES IN THE BASES. PT. AMBULATED WITH STANDBY ASSIST AND TOLERATED WELL. VOIDED 500ML OF CLEAR YELLOW URINE. IV SITE WNL AND FLUSHES WELL. DAUGHTER AT BEDSIDE. PT. LEFT RESTING IN CHAIR WITH CALL LIGHT IN REACH.
--- NOTE | 2020-05-21 16:28 | NUR ---
Tamiko Ireland attended [facility] cardiac rehab sessions in 2019. EF Feb 2020 <20% At this current time she reports she still has scales and pill box. No questions for HF RN service at this time.
--- NOTE | 2020-05-21 17:54 | NUR ---
PT ASSISTED TO BATHROOM AND THEN BACK TO BED. PT RESTING IN BED EATING DINNER. ATTEMPTED TO WEAN PT TO 1L NC, O2 SATS 94%. PT WITH SUDDEN COMPLAINT OF CHEST BURNING THAT RADIATED INTO JAW. VITAL SIGNS ASSESSED AN WNL. PT STATED PAIN RESOLVED AFTER A FEW MINUTES. PT INSTRUCTED TO CALL IF PAIN RETURNED. MD CALLED AND WAS UNAVAILABLE AT THE TIME, STATED HE WOULD CALL BACK. PT THEN CALLED AGAIN WITH SECOND REPORT OF CHEST PAIN, VSS, EKG ORDERED PER PROTOCOL FOR CHEST PAIN. MD CALLED, CAME TO BEDSIDE. ORDER TO PLACE PT ON TELEMETRY, DISCONTINUE EKG ORDER AND GIVE EVENING DOSE OF METOPROLOL 50MG NOW, COMPLETED. PT STATES PAIN HAS RESOLVED AND IS RESTING IN BED, WILL CALL IF PAIN RETURNS.
--- NOTE | 2020-05-21 18:45 | NUR ---
89 year old female admitted to room 127 after rapid response called to patient's former room 117. Patient in SVT with HR in the 170's. 10 mg of IV diltiazem given, patient transported to room 127. Patient connected to monitoring engineer and vss taken. HR in the 70-80's, BP in the 120's systolic. Patient denies pain or SOB. Patient's daughter in room at bedside. Report given to next shift.
--- NOTE | 2020-05-21 19:01 | NUR ---
RAPID RESPONSE CALLED FOR HR OF 176. WHEN THIS RN ARRIVED TO ROOM, CCU TI BELL INSTRUCTING PT TO PERFORM VAGAL MANUEVERS, PT PLACED ON 10L OXYMASK. MD TO BEDSIDE. EKG COMPLETED. VERBAL ORDER FOR 10MG IV DILTIAZEM, GIVEN, BLOOD PRESSURE MONITORED. HR RESPONDED TO DILTIAZEM, DROPPED TO 90-100'S. PT TRANSFERED TO CCU ROOM 127, DAUGHTER AT BEDSIDE, BEDSIDE REPORT GIVEN TO TI HUANG.
--- NOTE | 2020-05-21 19:30 | NUR ---
REPORT RECIEVED FROM CCU RN. CARE OF PATIENT ASSUMED AT THIS TIME.
--- NOTE | 2020-05-21 20:53 | NUR ---
IN ROOM FOR ASSESSMENT AND MEDICATION ADMINSTRATION. PT RESTING IN BED, RESPIRATIONS EVEN AND UNLABORED. DAUGHTER AT BEDSIDE. DISCUSSED PLAN OF CARE AND MEDICAL HISTORY WITH DAUGHTER AND PATIENT. PT UP TO BSC, VISIBLY SHORT OF BREATH O2 SATURATIONS DECREASED TO 88 PERCENT. RR=26. VISIBLY SHORT OF BREATH. HEART RATE UP T 110 WITH EXERTION. PT NOW BACK IN BED. HEART RATE IN THE 80S, SPO2 = 97 PERCENT ON 2 L NC. DAUGHTER REMAINS AT BED SIDE, CALL LIGHT WITHIN REACH. NO FURTHER NEEDS AT THIS TIME.
--- NOTE | 2020-05-21 21:22 | NUR ---
BREATHING TREATMENT COMPLETED BY RT. PT REQUESTING MORE WATER. DISCUSSED FLUID RESTRICTION WITH PT. ALL QUESTIONS ANSWERED. CALL LIGHT WITHIN REACH. DENIES FURTHER NEEDS AT THIS TIME.
--- NOTE | 2020-05-22 00:22 | NUR ---
in room for medication administration and to complete assessment. pt denies shortness of breath, chest pain or other discomfort. assisted with repositioning patient in the bed. pt lung sounds improved from last assessment. call light within reach. denies further needs at this time.
--- NOTE | 2020-05-22 01:49 | NUR ---
PTS ACID OPERATOR ALARMING VTACH. PT DENIES PAIN, SHORTNESS OF BREATH OR ANY OTHER SYMPTOMS. MD NOTIFIED. NO NEW ORDERS.
--- NOTE | 2020-05-22 03:58 | NUR ---
assessment completed. pt up to bsc to void. no dizziness with standing. stand by assist only required. heart rate up to 100 with activity but back down into the 70s with rest. spo2 =97% on 2 l nc. call light within reach. denies further needs at this time.
--- NOTE | 2020-05-22 05:17 | NUR ---
lab in room a this time for blood draw.
--- NOTE | 2020-05-22 05:48 | NUR ---
iN ROOM FOR MEDICATION ADMINISTRATION AND TO WEIGH PATIENT. WELL TOLERATED. PT BACK IN BED. CALL LIGHT WITHIN REACH. NO FURTHER NEEDS AT THIS TIME.
--- NOTE | 2020-05-22 07:30 | NUR ---
in to give morning medications. Pt reports she slept poorly but is otherwise doing well. Pt denies pain or nausea. SBA up to chair to eat breakfast. Call light inreach.
--- NOTE | 2020-05-22 10:00 | NUR ---
Pt returned to CCU. NO change in plan for dc when cleared medically.
--- NOTE | 2020-05-22 10:15 | NUR ---
DR. CALDWELL IN TO SEE PT THIS MORNING. PT ON 2 L O2 VIA NC SATING 95-96%, O2 TURNED OFF, SATURATIONS REMAINED >92%. PT THEN ASKED TO USED BR, AMBULATED 1PA TO BATHROOM AND DESATED TO 84% ON ROOM AIR. PUT BACK ON NC @ 2L ONCE RETURNED TO BED AND RECOVERED QUICKLY. PT SHOULD CONTINUE TO USE O2 WITH ACTIVITY, THOUGH DOES NOT REQUIRE SUPPLEMENTAL O2 AT REST. BACK IN BED, CALL LIGHT IN REACH.
--- NOTE | 2020-05-22 10:37 | NUR ---
CHARGE MASTER ANALYST assisted pt. to bathroom then to bed. Pt. washed up gown and linens changed breakfast given. room picked up. no other needs at thist time. call light within reach
--- NOTE | 2020-05-22 11:45 | NUR ---
STUDENT NURSE SANDOVAL AND CLINICAL INSTRUCTOR COLBY IN TO GIVE PT PO METOPROLOL 50 MG. PT SITTING UP IN BED W/ LUNCH. DAUGHTER AT BEDSIDE. PT'S 2 DAUGHTERS ARE CAREGIVERS, BOTH ALLOWED TO VISIT AT SEPARATE TIMES SINCE THEY ARE CAREGIVER STATUS.
--- NOTE | 2020-05-22 12:07 | NUR ---
PT ALERT, ORIENTED AND WELCOMED ME IN HER RM. PT MENTIONED THAT SHE DID NOT SLEEP WELL. 2 DIFFERENT LIFEFLIGHTS WOKE HER UP AND JUST NOT A RESTFUL NIGHT. PT PLEASANT, HAD POSITIVE VISIT. PT MENTIONED THAT FR VICENTE IS COMING BY LATER FOR A VISIT. WILL CHECK WED IF SHE WOULD LIKE FR LEVI COME BY. PT MENTIONED A VISIT WITH HER CARD. THAT TALKED ABOUT ADDING LEADS TO HER PACE MAKER BUT DIDN'T HAPPEN YET. SHARED THIS WITH DR CALDWELL, HE WILL FOLLOW UP. PT REQUESTED PRAYER, WILL FOLLOW
--- NOTE | 2020-05-22 14:30 | NUR ---
REPORT CALLED TO OSMAR Gracia/Bernarda MECHANICAL DESIGNER. PT MOVED TO 111 VIA BED. BELONGINGS MOVED. DAUGHTER REMAINS AT BEDSIDE. VSS. PT IS WITHOUT COMPLAINT.
--- NOTE | 2020-05-22 14:41 | NUR ---
MED REC COMPLETE
--- NOTE | 2020-05-22 14:49 | NUR ---
PT TO FLOOR VIA BED WITH DAUGHTER AND RN COLBY. PT A\O AND DENIES CONCERNS OTHER THAN WOULD LIKE SOME CRANBERRY JUICE. VS STABLE.
--- NOTE | 2020-05-22 14:57 | NUR ---
DR. CALDWELL CALL AND NOTIFIED ABOUT ELEVATED BLOOD GLUCOSE FROM AM LABS. HEMOGLOBIN A1C ORDERED @ 1430.
--- NOTE | 2020-05-22 15:21 | NUR ---
THIS RN RECEVED REPORT FROM OSMAR LUKE. THIS RN TO ASSUME CARE OF PT AT THIS TIME.
--- NOTE | 2020-05-22 16:40 | NUR ---
THIS RN IN PTS ROOM TO GIVE PT HER LATE AFTERNOON MEDS. PT STATES THAT SHE IS DOING WELL AND STATES THAT SHE FEELS LIKE SHE IS BREATHING BETTER AFTER HER NEB TREATMENT. PT DOES STATE THAT SHE IS READY FOR MORE WATER, THIS RN EDUCATED PT THAT SHE ONLY HAS 550ML LEFT FOR THE NIGHT, PT STATES UNDERSTANDING
--- NOTE | 2020-05-22 16:57 | EKG ---
[facility] [address] [place] [address] Signed Wide QRS tachycardia Left ventricular hypertrophy with QRS widening Possible Lateral infarct , age undetermined Abnormal ECG When compared with ECG of 20-MAY-2020 21:07, Wide QRS tachycardia has replaced Electronic ventricular pacemaker Confirmed by VIDA CALDWELL MD ([id number]) on 05/22/2020 4:57:31 PM Electronically Signed By: VIDA CALDWELL MD 05/22/20 1657 PATIENT NAME: LENNIE CROCKETT Electrocardiogram DATE OF : 32 PHYSICIAN: VIDA CALDWELL MD REPORT #: [id number] REPORT IS CONFIDENTIAL AND NOT TO BE RELEASED WITHOUT AUTHORIZATION
--- NOTE | 2020-05-22 18:07 | NUR ---
PATIENT IN BED WATCHING TV. FRESH WATER GIVEN. VITALS AND I&O'S CHARTED. CALL LIGHT IN REACH. NO FURTHER NEEDS AT THIS TIME.
--- NOTE | 2020-05-22 19:30 | NUR ---
PHONE CALL FROM pt'S DAUGHTER LUANNE. pt AWAKE, SITTING UP IN BED, ACCEPTING PHONE CALL. CALL TRANSFERRED INTO ROOM. ERP BUSINESS ANALYST IN ROOM TO ASSIST WITH PHONE.
--- NOTE | 2020-05-22 19:35 | NUR ---
RECEIVED REPORT, PT IS ON PHONE AT THIS TIME. CALL LIGHT IS CLOSE.
--- NOTE | 2020-05-22 20:24 | NUR ---
ADMINISTERED EVENING MEDICATIONS AND ENTERED VS AND I&O'S. PT DENIES PAIN BUT STATES SHE HAS SOME SOB WITH MOVEMENT. ASSISTED PT TO THE RESTROOM AND TO GET READY FOR BED. SHE IS NOW BACK IN BED. SHE IS ALERT AND ORIENTED AND CALL LIGHT IS CLOSE. SHE DENIES FURTHER NEEDS AT THIS TIME. CALL LIGHT IS CLOSE. SEE ASSESSMENT FOR MORE DETAILS.
--- NOTE | 2020-05-22 21:34 | NUR ---
PT CALLED FOR ASSISTANCE TO RESTROOM. SBA TO RESTROOM AND BACK TO BED. SHE IS REQUESTING SOMETHING FOR HEARTBURN. PLACED NIO ORDER FOR MAALOX.
--- NOTE | 2020-05-22 21:43 | NUR ---
BROUGHT PT FRESH ICEWATER AND TALKED WITH PT ABOUT TAKING MAALOX AT 2200 TO KEEP IT 2 HRS APART FROM THE ABX SHE TOOK AT 2000. SHE STATED SHE IS OKAY WITH WAITING AND THAT IF SHE IS STILL AWAKE SHE WILL CALL FOR THE MAALOX. SHE DENIES FURTHER NEEDS. CALL LIGHT IS CLOSE.
--- NOTE | 2020-05-22 23:07 | NUR ---
PT IS RESTING WITH EYES CLOSED, RR IS EVEN AND NONLABORED. TELE SHOWS HR AT 73 PACED. CALL LIGHT IS CLOSE.
--- NOTE | 2020-05-23 00:51 | NUR ---
IN ROOM TO ADMINISTER MEDICATION AND TAKE BP. PT REQUESTED A WARM BLANKET AND DENIES FURTHER NEEDS. CALL LIGHT IS CLOSE.
--- NOTE | 2020-05-23 02:07 | NUR ---
PT'S O2 SATURATION IS DOING WELL ON 1LNC. DECREASED O2 TO .5L NC. CALL LIGHT IS CLOSE.
--- NOTE | 2020-05-23 03:47 | NUR ---
PT IS RESTING WITH EYES CLOSED, RR IS EVEN AND NONLABORED. HR ON TELE IS 62. CALL LIGHT IS CLOSE.
--- NOTE | 2020-05-23 06:47 | NUR ---
ADMINISTERED MEDICATIONS, PT WAS UP TO VOID WITH HELP OF ARLETTE DUFFY. DAILY WEIGHT ENTERED AND PT IS NOW BACK IN BED ON RA. SHE WAS 88% SPO2 ON RA BUT QUICKLY RECOVERED TO 93% AND DENIES ANY SOB WITH MOVEMENT THIS MORNING. PT DENIES PAIN. FRESH ICEWATER PROVIDED AND CALL LIGHT IS CLOSE.
--- NOTE | 2020-05-23 07:41 | NUR ---
THIS RN RECEIVED REPOT FROM GERI LUKE. PT AWAKE THIS AM AND IS WANTING TO COMPLETE AM CARE. PT STEADY ON HER FEET WALKING INTO RESTROOM. WHEN PT RETURNED TO BED ON ROOM PT WAS SATING BETWEEN 87-90%. PT THEN RECOVERED AFTER 2 MINS AND WAS SATING AT 94% ON ROOM AIR
--- NOTE | 2020-05-23 08:05 | NUR ---
THIS RN IN PTS ROOM TO DO PTS ASSESSMENT AND GIVE PT HER MORNING MEDS. THIS RN PROVIDED PT WITH ROSAURA AND KARMA TO ASSIST PT TO HAVE A BM. PT STATES THAT SHE HAS NO CONCERNS THIS AM OR NEEDS ANYTHING FURTHER
--- NOTE | 2020-05-23 08:16 | NUR ---
PATIENT IN BED, PATIENT HAD ALREADY DONE HER MORNING ORAL CARE, THIS STORAGE BRINE WORKER GOT HER A WARM WASH CLOTH, PATIENT WILL CALL IF SHE NEEDS ANY OTHER ASSISTANCE
--- NOTE | 2020-05-23 10:09 | NUR ---
this rn in pts room to check on her. pt states that she needs to get up to the restroom, pt audibly passing gas but no luck with having a bm at this time. pts daughter at bedside, all questions answered to this rns ability
--- NOTE | 2020-05-23 11:01 | NUR ---
PATIENT GOT UP TO THE CHAIR, PATIENT WAS A STAND BY ASSIST, BROUGHT PATIENT A WARM BLANKET AND HER DAUGHTER A WATER, NOTHING ELSE TO REPORT
--- NOTE | 2020-05-23 11:15 | NUR ---
PT ALERT, ORIENTED AND VISITING WITH HER DAUGHTER TAMIA. PT IS TO DC LATER TODAY AND LOOKS AND SOUNDS MUCH BETTER. PT FEELS INFORMED AND PLEASED WITH HER CARE. PT WOULD LIKE VISIT FROM TODAY, [facility]DIN AND GAL
[2020-05-23] MEDS ORDERED: DOXYCYCLINE HY100 MG PO (11:23)
[2020-05-23] MEDS ORDERED: METOPROLOL SUC200 MG PO (11:24)
[2020-05-23] MEDS ORDERED: BUMETANIDE1 MG PO (11:25)
[2020-05-23] MEDS ORDERED: PREDNISONE5 MG PO (11:25)
[2020-05-23] MEDS ORDERED: PREDNISONE20 MG PO (11:26)
--- NOTE | 2020-05-23 12:27 | NUR ---
Notified by staff, pt will dc today. Pt. requires 022L with activity. Spoke with pt and she is refusing a normal sized concentrator. She states he spouse is recovering from a fx hip, he had a second fall and had to return to surgery. Will does not want any trip hazards in her home. In 1 month they will change her to a portable concentrator for daytime use. Called and spoke with [facility] they can deliver a concentrator and portables. Pt can use concentrator at night and portables during the day . Pt is in agreement with this. Dr. Munoz notified. Rx written and note updated. Face sheet, rx , notes, 02 qualifier faxed to [facility]
--- NOTE | 2020-05-23 14:26 | NUR ---
PATIENT WAS IN CHAIR, DAUGHTER WAS VISITING, PATIENT IS GETTING READY TO D/C
--- NOTE | 2020-05-24 13:18 | NUR ---
Tamiko Ireland reports that she has lost 3 more pounds and understands medication changes. She has her daughters there helping her. Has f/u visit with Dr Schultz scheduled May 31. No questions or concerns. Welcomed patient to call this service PRN.
== END 2020-05-23 14:30 | disposition home or self-care (01) | DRG 291 ==
LOC: ED 20:55 → MS 23:25 → CCU 05-21 18:45 → MS 05-22 14:45
PROVIDERS: ADMIT Internal Medicine; ATTEND Internal Medicine
DX: I50.23 Acute on chronic systolic (congestive) heart failure (principal); J96.01 Acute respiratory failure with hypoxia; J45.51 Severe persistent asthma with (acute) exacerbation; I47.1 Supraventricular tachycardia; Z20.822 Contact with and (suspected) exposure to COVID-19; J40 Bronchitis, not specified as acute or chronic; E03.9 Hypothyroidism, unspecified; E78.5 Hyperlipidemia, unspecified; J84.10 Pulmonary fibrosis, unspecified; I25.10 Atherosclerotic heart disease of native coronary artery without angina pectoris; E09.9 Drug or chemical induced diabetes mellitus without complications; T38.0X5A Adverse effect of glucocorticoids and synthetic analogues, initial encounter; Z91.040 Latex allergy status; Z88.5 Allergy status to narcotic agent; Z91.09 Other allergy status, other than to drugs and biological substances; Z79.02 Long term (current) use of antithrombotics/antiplatelets; Z95.1 Presence of aortocoronary bypass graft; Z95.0 Presence of cardiac pacemaker; Z98.61 Coronary angioplasty status; Z79.82 Long term (current) use of aspirin; Z79.51 Long term (current) use of inhaled steroids; Z79.52 Long term (current) use of systemic steroids; Z79.899 Other long term (current) drug therapy
CPT/HCPCS: 36415; 71045; 80048; 80053; 83036; 83735; 83880; 84484; 85025; 93005; 93010; 94640; 94667; 94668; 94760; 94761; 99285-25; C9803; J1650; J2920; J3475; J7512; U0003